=== PATIENT | female | born 1990 | race Caucasian/White ===

== ENCOUNTER 2018-09-04 11:45 | Emergency (ER) | payer MEDICAID, SELFPAY ==
[2018-09-04 11:54] VITALS: BP 126/77; PULSE 95; RESP 17; TEMP 36.5
[2018-09-04] MEDS: Ketorolac 30 MG/ML VIAL IVP (13:11)
[2018-09-04] MEDS: Ondansetron 4 MG/2 ML VIAL IVP (13:11)
--- NOTE | 2018-09-04 14:31 | W.ED.GENAD ---
Discharge Plan Disposition Patient Disposition: HOME Condition: Stable Discharge Details Chief Complaint: Headache Clinical Impression: Migraine Primary Care Provider: Arley Marte ED Provider: Yoana Zhu Home Meds and New Rx's Prescriptions: New cyclobenzaprine 10 mg tablet 10 mg PO TID PRN (Reason: muscle spasm) Qty: 10 RF: 0 ondansetron HCl [Zofran] 4 mg tablet 4 mg PO TID PRN (Reason: nausea and vomiting) Qty: 6 RF: 0 Continued montelukast [Singulair] 10 mg Tablet 10 mg PO DAILY RF: 0 ProAir HFA 90 mcg/actuation Hfa Aerosol Inhaler See Rx Instructions .ROUTE .COMPLEX PRNRF: 0 Flovent HFA 110 mcg/actuation Hfa Aerosol Inhaler 2 puff INHALATION BID RF: 0 spironolactone 50 mg Tablet 50 mg PO BID RF: 0 Discharge Instructions Instructions: Migraine Headache (ED) Additional Instructions: Drink plenty of fluids and get plenty of rest. Take the Flexeril as needed and directed for pain or muscle spasm. Alternate Tylenol Motrin as needed and directed for pain. Take your migraine medication as needed and directed. Follow-up with your primary care doctor in 1 week for reevaluation. Return immediately to the emergency department any worsening or new concerning symptoms. Discharge Data Discharge Date/Time-TO BE ENTERED AT DEPARTURE: 09/04/18 15:12 Discharge Physician: Yoana Zhu Medical Decision Making 28-year-old female with a history of migraines and asthma who presents with headache and neck pain for the past 3 days. Headache described as throbbing, diffuse, with photophobia and nausea consistent with her usual migraines but more intense. No relief with migraine medication. Vitals within normal limits. Patient appears nontoxic and in no acute distress. Pain in neck is worse with range of motion and palpation and appears muscular skeletal. No URI symptoms and normal ENT exam. No meningeal signs. No focal deficits. Patient drove herself here. Will place an IV, bolus IV fluids, give Toradol and dose of Zofran. She was offered Compazine and Benadryl if she can obtain a ride home but she states she cannot. Pt was offered CT scan of her head but she declined. Discussed that as she has no focal deficits, no fever, no neurologic signs, no projectile vomiting, or history of traumatic injury, this is reassuring that does not appear c/w a serious neurologic process. 1400--patient states her headache improved after meds and then returned. She was offered additional medications such as Valium or Compazine with Benadryl if she can obtain a ride, but she states she cannot. She again was offered a CT head but she declined. She states she would rather go home with a prescription for Flexeril to help with muscle spasm. She is instructed to f/u with her pcp for re-evaluation in the next few days and to return immediately with any worsening or new concerning symptoms. Medical Records Medical records reviewed: Yes I reviewed the patient's medical records. Lab Data Lab results reviewed: Yes I reviewed the patient's lab results. test negative HPI General Mode of arrival: ambulatory. Date/Time Provider Initiated Documentation: 09/04/18 11:58. Limitations to Documentation: no limitations. Information obtained by: patient. HPI Narrative: Patient is a 28-year-old female with a history of migraines and asthma who presents with headache and neck pain for the past 3 days. She states the headache started frontal and then now is over her whole head. She describes her headache as throbbing, diffuse, with photophobia and nausea consistent with her usual migraines but more intense. She states she took a prescribed migraine medication but she is unsure of the name but had no relief with this. She also denies any relief with ibuprofen or Tylenol. She states she normally can take ibuprofen or Tylenol with her migraines and this resolves it. She states her neck pain started last night, is throughout her entire neck but worse at the base of her neck and is worse with movement. She denies any fever, ear pain, sore throat, cough, shortness of breath, chest pain, injury, vision changes, extremity pain/weakness/numbness. Related Data Home Medications Medication Instructions Recorded Confirmed Flovent HFA 2 puff INHALATION BID 09/04/18 09/04/18 ProAir HFA See Rx Instructions .ROUTE 09/04/18 09/04/18 .COMPLEX PRN cyclobenzaprine 10 mg PO TID PRN #10 tab 09/04/18 montelukast [Singulair] 10 mg PO DAILY 09/04/18 09/04/18 ondansetron HCl [Zofran] 4 mg PO TID PRN #6 tab 09/04/18 spironolactone 50 mg PO BID 09/04/18 09/04/18 Previous Rx's Medication Instructions Recorded cyclobenzaprine 10 mg PO TID PRN #10 tab 09/04/18 ondansetron HCl [Zofran] 4 mg PO TID PRN #6 tab 09/04/18 Allergies Allergy/AdvReac Type Severity Reaction Status Date / Time latex Allergy Intermediate Skin Rash Unverified 09/04/18 11:58 adhesive tape Allergy Mild Skin Rash Unverified 09/04/18 11:58 morphine AdvReac Mild Nausea Unverified 09/04/18 11:58 tramadol AdvReac Mild Nausea Unverified 09/04/18 11:58 General Stated Complaint: Orthopedic RONA: 4 Review of Systems Review of Systems All systems reviewed & are unremarkable except as noted in HPI and below Constitutional Reports as per HPI, Denies chills, Denies fever(s) and Reports headache(s) Eyes Denies blurry vision ENT Denies dizziness, Reports headache(s), Denies sore throat and Denies throat swelling Cardiovascular Denies chest pain and Denies dyspnea Respiratory Denies dyspnea Gastrointestinal Denies abdominal pain, Denies diarrhea, Reports nausea and Denies vomiting Genitourinary Denies hematuria and Denies dysuria Musculoskeletal Denies back pain and Denies numbness Integumentary/Breasts Denies lesions and Denies rash Neurologic Denies dizziness, Reports headache(s) and Denies numbness Allergic/Immunologic Denies throat swelling [facility] Medical History Asthma (Chronic) HTN (hypertension) (Chronic) Kidney stones (Chronic) Migraine (Chronic) Surgical History H/O laparoscopy (Chronic) Social History Smoking/Tobacco Use Status: Never alcohol intake: never substance use type: does not use Exam Const General: cooperative and healthy appearing Orientation: alert and awake HENME Head: normal to inspection Ears: hearing grossly normal bilaterally, external ears normal and TM's normal bilaterally General nose exam: external nose normal Face and sinus: normal facial exam Mouth: oral mucosae normal Teeth and gingiva: dentition normal Throat: posterior oropharynx normal Eyes General: appearance normal, both eyes and all related structures Eyelids: eyelids normal Pupils: PERRL EOM: EOM intact bilaterally Neck Neck: normal visual inspection Lymphatic: no lymphadenopathy noted Chest Chest: normal inspection of the chest Resp Effort & Inspection: normal respiratory effort and able to speak in complete sentences Auscultation: clear to auscultation bilaterally Cardio Rate: regular rate Rhythm: regular rhythm GI Inspection: normal to inspection Palpation: soft, not firm, no guarding, no hepatosplenomegaly, no masses and nontender Auscultation: normal bowel sounds Back/Spine/Pelvis Cervical Spine: cervical muscular tenderness (b/l, worse at base of neck), pain with cervical ROM and No cervical spinal tenderness Skin General skin exam: no rashes or lesions noted Neuro General: alert, awake, oriented x3, moves all extremities, no meningeal signs, no focal motor deficits and other (Negative Kernig's and Brudzinski's signs) Cranial Nerves: CN's II-XI intact bilaterally Cognition: normal cognition Speech: speech normal Gait: normal gait Motor: muscle tone normal throughout and strength 5/5 throughout Sensory Exam: no sensory deficits noted Extrem General: normal to inspection, full ROM and normal capillary refill Psych Appearance: grossly normal Mental Status: mental status grossly normal Speech and Movement: speech and movement normal Affect: normal affect Thought Process: normal Course Vital Signs Temperature 97.7 F 09/04/18 11:54 Pulse 95 H 09/04/18 11:54 Respiratory Rate 17 09/04/18 11:54 Blood Pressure 126/77 09/04/18 11:54 Temperature 97.7 F 09/04/18 11:54 Temperature Source Skin 09/04/18 11:54 Pulse 95 H 09/04/18 11:54 Respiratory Rate 17 09/04/18 11:54 Blood Pressure 126/77 09/04/18 11:54 Pain Level 7 09/04/18 11:54 Lab/Test Results Lab/Test Results: POC- Test(urine) Negative
[2018-09-04 15:03] VITALS: BP 126/77; PULSE 95; RESP 17; TEMP 36.5; O2SAT 98
--- NOTE | 2018-09-05 16:54 | NUR.NOTE ---
Nursing Note: Patient called stating that she now has a fever along with the migraine and stiff neck. Took a muscle relaxer 2 hrs ago and does not feel that she can drive. She does not have anyone to look after her children (1yr and 3yr old). Does not want to call an ambulance or bring in the children. Per Dr. Elvira Rossi, patient can come back for evaluation and we would be happy to see her. The physician who saw her yesterday is not in the ED at this time. Patient stated she was going to stay home and if something happens it happens. Gabrielle Sorensen.
== END 2018-09-04 15:12 | disposition home or self-care (01) ==
PROVIDERS: Emergency Provider Physician Assistant; PCP Nurse Practitioner Family
DX: G43.909 Migraine, unspecified, not intractable, without status migrainosus (principal); M54.2 Cervicalgia; I10 Essential (primary) hypertension
CPT/HCPCS: 81025; 96374; 96375; 99284; J1885; J2405

== ENCOUNTER 2018-09-07 06:49 | Emergency (ER) | payer MEDICAID, SELFPAY ==
[2018-09-07] VITALS (9 sets, daily range): BP systolic 101–115; BP diastolic 57–77; PULSE 84–127; RESP 16–20; TEMP 36.6–37.6; O2SAT 90–100
--- NOTE | 2018-09-07 07:16 | DI.CT_ITS ---
SYMPTOM/DIAGNOSIS: SEVERE HEADACHES, 1 WEEK, ATYPICAL FOR NORMAL SANTIAGO'S. NONCONTRAST HEAD CT: There are no prior comparison exams. No intracranial hemorrhage, mass or infarct is seen. The ventricles are normal in size. The sinuses and mastoid air cells appear clear. The orbits are unremarkable. IMPRESSION: Negative head CT.
--- NOTE | 2018-09-07 07:16 | DI.CT_ITS ---
SYMPTOM/DIAGNOSIS: SEVERE HEADACHE FOR 1 SWEEK, WORSENING, ATYPICAL CT ANGIOGRAPHY OF THE HEAD AND NECK: There is no evidence of aneurysm or dissection. There is no evidence of significant stenosis, vascular irregularity or occlusion. IMPRESSION: Negative CTA of the head and neck.
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
[2018-09-07 07:57] LABS: Abs Immature Grans 0.11 k/cumm (0.0-0.09); Absolute Basophil Count 0.17 k/cumm (0.0-0.2); Basophils % 2.5; HCT 42.8 % (36.0-46.0); HGB 14.4 g/dL (12.0-15.5); Mean Corp. HGB Concentration 33.6 g/dL (32.0-36.0); Mean Corpuscular Hemoglobin 27.2 pg (27.0-33.0); Mean Corpuscular Volume 80.9 fL (80-95); Mean Platelet Volume 10.8 fL (8.0-11.0); Platelet Count 186 x1000/uL (130-400); RBC 5.29 m/cumm (4.00-5.20); RBC Distribution Width 14.4 % (11.7-14.6); White Blood Cell Count 6.75 k/cumm (4.4-10.8)
[2018-09-07 08:04] LABS: ALT 13 U/L (12-78); AST 24 U/L (15-37); Albumin 3.7 g/dL (3.4-5.0); Alkaline Phosphatase 98 U/L (46-116); Anion Gap 10.2 mmol/L (3-11); BUN 13 mg/dL (7-18); Bilirubin, Total 0.6 mg/dL (0.2-1.0); C-Reactive Protein 1.43 mg/dL (0.0-0.3); CO2 27.8 mmol/L (21.0-32.0); CREATININE 0.87 mg/dL (0.55-1.02); Calcium 9.2 mg/dL (8.5-10.1); Chloride 103 mmol/L (98-107); Glucose 101 mg/dL (70-100); Potassium 4.1 mmol/L (3.5-5.1); Sodium 141 mmol/L (136-145); Total Protein 8.5 g/dL (6.4-8.2)
[2018-09-07] MEDS: Ketorolac 15 MG/ML VIAL IVP (08:04)
[2018-09-07] MEDS: diphenhydrAMINE 25 MG CAP PO (08:04)
[2018-09-07] MEDS: Acetaminophen 500 MG TAB 1000 MG PO (08:04)
[2018-09-07] MEDS: Metoclopramide 10 MG/2 ML VIAL IVP (08:05)
[2018-09-07] MEDS: Normal Saline 1,000 ML 1000 ML IV ×2 (08:06→09:51)
[2018-09-07] MEDS: Omnipaque 350 MG/ML 100 ML BTL IV (08:24)
[2018-09-07 08:41] LABS: Absolute Eosinophil Count 0.14 k/cumm (0.0-0.7); Absolute Lymphocyte Count 2.97 k/cumm (1.2-3.4); Absolute Monocyte Count 0.47 k/cumm (0.11-0.7); Absolute Neutrophil Count 3.11 k/cumm (1.2-6.7); Atypical Lymphocytes % 13; Diff Comment Manual Differential; Nucleated RBC 1 /100WBC; RBC Morphology Normal
[2018-09-07 08:44] LABS: ESR 23 MM/HR (0-20)
--- NOTE | 2018-09-07 08:52 | W.ED.FU ---
Follow Up Plan: Patient signed out to me by Dr. Roberts with labs, CT, CTA neck, LP pending.
[2018-09-07] MEDS: Normal Saline Flush 10 ML SYR ×2 (09:52→09:53)
--- NOTE | 2018-09-07 10:00 | NUR.NOTE ---
consent done and on the chart for LP by the er doctor and pt sitting up leaning over BST with pillow and back arched area cleaned and draped lidocaine Nursing Note:
[2018-09-07] MEDS: Lidocaine 1% Multi-Dose 50 ML VIAL (10:31)
[2018-09-07 10:51] LABS: Glucose (CSF) 58 mg/dL (40-70); Total Protein (CSF) 34 mg/dL (15-45)
[2018-09-07 11:20] LABS: Tube # 3
[2018-09-07 11:22] LABS: Clarity Clear; RBC 0 /mm3 (0-5); WBC 0 /mm3 (0-5); Xanthochromia Absent
--- NOTE | 2018-09-07 12:02 | W.PM.PROGNOT ---
Date of Service Date of service: 09/07/18 Time of Service: 12:02 Assessment and Plan (1) Status migrainosus: Current visit: Yes Status: Acute Subjective Interval history since last seen: This was a procedure visit only. Procedure: Bilateral Greater occipital nerve blocks Indication: Headache, occipital and cervical tenderness Consent: Indication, risks, benefits, and alternatives discussed with the patient, which included bleeding, infection, permanent numbness, and medication reaction. Consent form signed and placed in chart. Time out: A timeout was performed Location: The greater occipital nerve was located by first palpating the mastoid and midline occipital ridge. Next the nerve was palpated at 2/3 the distance toward the occipital ridge. It was coincident with maximal tenderness. Medication: 50:50 mixture of 2% Lidocaine and 0.25% bupivacaine. Technique: The area was cleaned with 2 alcohol swabs while using clean gloves. Using a 5 cc syringe with a 25 ronda, 4cc of the medication mixture was injected in multiple tissue planes in the area around each greater occipital nerve. Prior to each injection the plunger was pulled to ensure the needle was not in a blood vessel. The patient tolerated the procedure well. Complications: none Blood loss: < 1cc Objective Objective Clinical Data: Abnormal lab results 09/07/18 09/07/18 Range/Units 07:22 07:22 RBC 5.29 H (4.00-5.20) m/cumm ESR 23 H (0-20) MM/HR Glucose 101 H (70-100) mg/dL C-Reactive Protein 1.43 H (0.0-0.3) mg/dL Total Protein 8.5 H (6.4-8.2) g/dL Vital Signs Temperature 36.6 C 09/07/18 09:02 Temperature Source Temporal Artery Scan 09/07/18 09:02 Pulse 96 H 09/07/18 10:11 Respiratory Rate 20 09/07/18 10:26 Respiratory Effort 09/07/18 08:11 Blood Pressure 114/66 09/07/18 10:26 Blood Pressure Position Sitting 09/07/18 06:55 Pulse Oximetry 100 09/07/18 10:26 Oxygen Delivery Method Room Air 09/07/18 10:26 Oxygen Flow Rate 0 09/07/18 10:26 Pain Level 6 09/07/18 10:26 Intake & Output 01/09/07/18 09/07/18 23:59 11:59 23:59 Intake Total 1999 Balance 1999 Weight 86.183 kg Intake: IV 1999 Laboratory Results WBC 6.75 k/cumm (4.4-10.8) 09/07/18 07:22 RBC 5.29 m/cumm (4.00-5.20) H 09/07/18 07:22 Hgb 14.4 g/dL (12.0-15.5) 09/07/18 07:22 Hct 42.8 % (36.0-46.0) 09/07/18 07:22 MCV 80.9 fL (80-95) 09/07/18 07:22 MCH 27.2 pg (27.0-33.0) 09/07/18 07:22 MCHC 33.6 g/dL (32.0-36.0) 09/07/18 07:22 RDW 14.4 % (11.7-14.6) 09/07/18 07:22 Plt Count 186 x1000/uL (130-400) 09/07/18 07:22 MPV 10.8 fL (8.0-11.0) 09/07/18 07:22 Immature Gran % See Differential 09/07/18 07:22 Neutrophils % 42.0 09/07/18 07:22 Band Neutrophils % 4.0 % 09/07/18 07:22 Lymphocytes % 31.0 09/07/18 07:22 Atypical Lymphs % 13 09/07/18 07:22 Monocytes % 7.0 09/07/18 07:22 Eosinophils % 2.0 09/07/18 07:22 Basophils % 2.5 09/07/18 07:22 Absolute Neutrophils 3.11 k/cumm (1.2-6.7) 09/07/18 07:22 Absolute Lymphocytes 2.97 k/cumm (1.2-3.4) 09/07/18 07:22 Absolute Monocytes 0.47 k/cumm (0.11-0.7) 09/07/18 07:22 Absolute Eosinophils 0.14 k/cumm (0.0-0.7) 09/07/18 07:22 Absolute Basophils 0.17 k/cumm (0.0-0.2) 09/07/18 07:22 Metamyelocytes 1.0 % 09/07/18 07:22 Nucleated RBCs 1 /100WBC 09/07/18 07:22 Differential Comment Manual differential 09/07/18 07:22 RBC Morphology Normal 09/07/18 07:22 Xanthochromia Absent 09/07/18 10:15 ESR 23 MM/HR (0-20) H 09/07/18 07:22 Sodium 141 mmol/L (136-145) 09/07/18 07:22 Potassium 4.1 mmol/L (3.5-5.1) 09/07/18 07:22 Chloride 103 mmol/L (98-107) 09/07/18 07:22 Carbon Dioxide 27.8 mmol/L (21.0-32.0) 09/07/18 07:22 Anion Gap 10.2 mmol/L (3-11) 09/07/18 07:22 BUN 13 mg/dL (7-18) 09/07/18 07:22 Creatinine 0.87 mg/dL (0.55-1.02) 09/07/18 07:22 Estimated GFR/1.73 m2 >= 60.00 (mL/min/1.73m2) 09/07/18 07:22 Glucose 101 mg/dL (70-100) H 09/07/18 07:22 Calcium 9.2 mg/dL (8.5-10.1) 09/07/18 07:22 Total Bilirubin 0.6 mg/dL (0.2-1.0) 09/07/18 07:22 AST 24 U/L (15-37) 09/07/18 07:22 ALT 13 U/L (12-78) 09/07/18 07:22 Alkaline Phosphatase 98 U/L (46-116) 09/07/18 07:22 C-Reactive Protein 1.43 mg/dL (0.0-0.3) H 09/07/18 07:22 Total Protein 8.5 g/dL (6.4-8.2) H 09/07/18 07:22 Albumin 3.7 g/dL (3.4-5.0) 09/07/18 07:22 CSF Tube Number 3 09/07/18 10:15 CSF Color Colorless 09/07/18 10:15 CSF Clarity Clear 09/07/18 10:15 CSF WBC 0 /mm3 (0-5) 09/07/18 10:15 CSF RBC 0 /mm3 (0-5) 09/07/18 10:15 CSF Diff Comment Not Applicable 09/07/18 10:15 CSF Glucose 58 mg/dL (40-70) 09/07/18 10:15 CSF Total Protein 34 mg/dL (15-45) 09/07/18 10:15
[2018-09-09 03:21] LABS: Enterovirus PCR Negative (Negative); Specimen Source CSF
[2018-09-09 16:07] LABS: Adenovirus PCR Negative (Negative)
[2018-09-14 09:52] LABS: Lyme Disease Serology, CSF SEE COMMENTS
== END 2018-09-07 13:00 | disposition home or self-care (01) ==
PROVIDERS: Student in an Organized Health Care Education/Training Program; Emergency Provider Student in an Organized Health Care Education/Training Program; PCP Nurse Practitioner Family
DX: R51 Headache (principal); R50.9 Fever, unspecified; I10 Essential (primary) hypertension
CPT/HCPCS: 36415; 62270; 70496; 70498; 80053; 81025; 82945; 85652; 87040; 87449; 87798; 89050; 89051; 96361; 96374; 96375; 99285; NC; 70450; 84157; 85025; 86140; 86618; 87070; 87205; 87498; 99284; J1885; J2765; J3490

== ENCOUNTER 2018-10-15 13:10 | Outpatient (CLI) | payer MEDICAID, SELFPAY ==
[2018-10-15 14:13] LABS: Potassium 4.1 mmol/L (3.5-5.1)
== END 2018-10-15 13:30 ==
PROVIDERS: PCP Nurse Practitioner Family; Visit Provider Internal Medicine
DX: Z87.442 Personal history of urinary calculi (principal); Z51.81 Encounter for therapeutic drug level monitoring
CPT/HCPCS: 36415; 84132

== ENCOUNTER 2018-12-02 17:21 | Outpatient (REF) | payer MEDICAID, SELFPAY ==
--- NOTE | 2018-12-02 16:30 | PAPFT_PTH ---
PATIENT: Gladys Lopez LOC: [facility] U#:[id number] AGE/SX: 28/F ROOM: RE12/02/[address]: Arley Marte : 1990 BED: DIS: 12/02/2018 SPEC #: [id number] RECD: 12/03/18 10:54 STATUS: REFUGIO REQ #: [id number] VIKCIE: 12/02/18 16:[address]: Arley Marte DEPT: [facility] Cytology RECD BY: Jenni Nguyen Tissues: 1 - CX/ENDOCX FOR PAP SMEARS Procedures: PAP THIN PREP/[facility] Screening Comments: [id number]
[2018-12-04 14:44] LABS: Chlamydia Result Negative; GC Result Negative; Specimen Description CERVIX
== END 2018-12-02 17:41 ==
LOC: NCHCN 17:21
PROVIDERS: PCP Nurse Practitioner Family; Visit Provider Nurse Practitioner Family
DX: Z11.3 Encounter for screening for infections with a predominantly sexual mode of transmission (principal); Z12.4 Encounter for screening for malignant neoplasm of cervix; G43.109 Migraine with aura, not intractable, without status migrainosus; F41.9 Anxiety disorder, unspecified; F32.9 Major depressive disorder, single episode, unspecified; Z00.00 Encounter for general adult medical examination without abnormal findings
CPT/HCPCS: 87491; 87591; 88142; 87480; 87510; 87660

== ENCOUNTER 2019-04-01 11:07 | Emergency (ER) | payer MEDICAID, SELFPAY ==
[2019-04-01 11:24] VITALS: BP 122/68; PULSE 72; RESP 16; TEMP 37.1; O2SAT 99
[2019-04-01 11:29] LABS: Bilirubin Negative (Negative); Blood Negative (Negative); Clarity Clear (Clear); Glucose Negative (Negative); Ketones Negative (Negative); Leukocyte Esterase Negative (Negative); Nitrite Negative (Negative); Specific Gravity 1.025 (1.005-1.025); Urobilinogen 0.2 EU/dL (Up TO 0.2); pH 5.5 (5-8)
--- NOTE | 2019-04-01 11:41 | DI.CT_ITS ---
SYMPTOMS/DIAGNOSIS: RIGHT LOWER QUADRANT PAIN WITH URINARY SYMPTOMS RENAL COLIC CT: No acute findings are seen in the lung bases. Lack of IV contrast does limit evaluation of the abdominal and pelvic organs. The unenhanced liver, spleen, pancreas, gallbladder, bile ducts and adrenal glands are unremarkable. There is no evidence of nephrolithiasis or obstructive uropathy. The urinary bladder is intact. The reproductive organs are unremarkable. The bowel shows no evidence of obstruction or inflammation. No findings to suggest an acute appendicitis are present. The aorta is of normal caliber. No significant abdominal or pelvic adenopathy or pneumoperitoneum is seen. There is a trace amount of free fluid in the pelvis, which is likely physiologic. No acute osseous abnormality is seen in the spine. IMPRESSION: No acute abnormality. The findings were discussed with Sathish Chawla in the Emergency Department on the date of the examination.
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
[2019-04-01] MEDS: Ketorolac 30 MG/ML VIAL IVP (11:50)
[2019-04-01] MEDS: Normal Saline 1,000 ML 1000 ML IV (11:53)
[2019-04-01 11:55] LABS: HGB 12.8 g/dL (12.0-15.5); Mean Corp. HGB Concentration 33.7 g/dL (32.0-36.0); Mean Corpuscular Hemoglobin 27.8 pg (27.0-33.0); Mean Corpuscular Volume 82.6 fL (80-95); Mean Platelet Volume 10.7 fL (8.0-11.0); Platelet Count 226 x1000/uL (130-400); RBC Distribution Width 12.6 % (11.7-14.6); White Blood Cell Count 7.12 k/cumm (4.4-10.8)
[2019-04-01] MEDS: Ondansetron 4 MG/2 ML VIAL IVP (11:55)
[2019-04-01 12:18] LABS: ALT 13 U/L (12-78); AST 12 U/L (15-37); Albumin 3.4 g/dL (3.4-5.0); Alkaline Phosphatase 51 U/L (46-116); Anion Gap 12.3 mmol/L (3-11); BUN 11 mg/dL (7-18); Bilirubin, Total 0.5 mg/dL (0.2-1.0); CO2 21.7 mmol/L (21.0-32.0); CREATININE 0.64 mg/dL (0.55-1.02); Calcium 8.4 mg/dL (8.5-10.1); Chloride 104 mmol/L (98-107); Glucose 83 mg/dL (70-100); Potassium 3.9 mmol/L (3.5-5.1); Sodium 138 mmol/L (136-145); Total Protein 7.1 g/dL (6.4-8.2)
[2019-04-01 12:29] LABS: Lipase 106 U/L (73-393)
--- NOTE | 2019-04-01 13:13 | DI.US_ITS ---
SYMPTOMS/DIAGNOSIS: RIGHT LOWER QUADRANT PAIN PELVIC ULTRASOUND: Transabdominal and transvaginal examination was performed. The uterus measures 9.5 cm long x 4.6 cm AP x 5.1 cm transverse. The endometrial stripe is within normal limits at 0.3 cm. No uterine mass is present. Both the ovaries are visualized. There is normal blood flow. No evidence of torsion. There are follicular cysts seen bilaterally, the largest is a 3.1 cm simple cyst on the left ovary. This is likely physiologic. There is a small amount of free fluid in the cul-de-sac and in the right adnexal region. IMPRESSION: 1. Normal ovarian blood flow. No evidence of torsion. 2. Negative pelvic ultrasound. The findings were discussed with the Emergency Department on the date of the examination.
[2019-04-01 13:22] VITALS: BP 111/58; PULSE 79; RESP 16; TEMP 36.6; O2SAT 97
[2019-04-01 14:31] VITALS: BP 110/64; PULSE 72; RESP 18; TEMP 37.1; O2SAT 100
== END 2019-04-01 14:55 | disposition home or self-care (01) ==
PROVIDERS: Physician Assistant; Emergency Provider Nurse Practitioner Family; PCP Nurse Practitioner Family
DX: R10.30 Lower abdominal pain, unspecified (principal); R30.0 Dysuria; Z87.442 Personal history of urinary calculi; I10 Essential (primary) hypertension
CPT/HCPCS: 36415; 80053; 81025; 83690; 85027; 96361; 96374; 96375; 99284; 74176; 76830; 76856; 81003; J1885; J2405

== ENCOUNTER 2019-10-08 16:29 | Outpatient (REF) | payer MEDICAID, SELFPAY ==
[2019-10-11 13:33] LABS: Chlamydia Result Negative (Negative); GC Result Negative (Negative)
== END 2019-10-08 16:49 ==
LOC: NCHCN 16:29
PROVIDERS: PCP Nurse Practitioner Family; Visit Provider Nurse Practitioner Family
DX: Z91.89 Other specified personal risk factors, not elsewhere classified (principal); Z11.3 Encounter for screening for infections with a predominantly sexual mode of transmission
CPT/HCPCS: 87491; 87591; 87480; 87510; 87660

== ENCOUNTER 2019-10-20 20:57 | Outpatient (REF) | payer MEDICAID, SELFPAY ==
[2019-10-22 09:25] LABS: HBs Antibody, Quant 13.2 mIU/mL (See Note); Hepatitis B Surface Ab Positive (See Note)
[2019-10-22 10:14] LABS: Hepatitis C Ab w Rflx HCV PCR Negative (Negative)
[2019-10-22 11:32] LABS: HIV-1/2 Ag & Ab Screen Negative (Negative)
[2019-10-22 12:34] LABS: Syphilis Serology (RPR) Negative (Negative)
== END 2019-10-20 21:17 ==
LOC: NCHCN 20:57
PROVIDERS: PCP Nurse Practitioner Family; Visit Provider Nurse Practitioner Family
DX: Z91.89 Other specified personal risk factors, not elsewhere classified (principal); Z11.59 Encounter for screening for other viral diseases; Z11.4 Encounter for screening for human immunodeficiency virus [HIV]; Z11.3 Encounter for screening for infections with a predominantly sexual mode of transmission
CPT/HCPCS: 86706; 86803; 87389; 86592

== ENCOUNTER 2019-12-23 19:14 | Outpatient (REF) | payer MEDICAID, SELFPAY ==
[2019-12-23 18:15] LABS: HCT 40.2 % (36.0-46.0); HGB 13.8 g/dL (12.0-15.5); Mean Corp. HGB Concentration 34.3 g/dL (32.0-36.0); Mean Corpuscular Hemoglobin 28.4 pg (27.0-33.0); Mean Corpuscular Volume 82.7 fL (80-95); Mean Platelet Volume 11.7 fL (8.0-11.0); Platelet Count 286 x1000/uL (130-400); RBC 4.86 m/cumm (4.00-5.20); RBC Distribution Width 12.5 % (11.7-14.6); White Blood Cell Count 9.64 k/cumm (4.4-10.8)
[2019-12-23 19:07] LABS: Iron 31 ug/dL (50-170); Total Iron Binding Capacity 455 ug/dL (250-450); Transferrin Sat 7 % (15-50)
== END 2019-12-23 19:34 ==
LOC: NCHCN 19:14
PROVIDERS: PCP Nurse Practitioner Family; Visit Provider Nurse Practitioner Family
DX: N80.9 Endometriosis, unspecified (principal); N93.8 Other specified abnormal uterine and vaginal bleeding
CPT/HCPCS: 85027; 83540; 83550

== ENCOUNTER 2020-03-15 03:56 | Outpatient (CLI) | payer MEDICAID, SELFPAY ==
[2020-03-15 08:25] LABS: Anion Gap 9.5 mmol/L (3-11); BUN 10 mg/dL (7-18); CO2 24.5 mmol/L (21.0-32.0); CREATININE 0.85 mg/dL (0.55-1.02); Calculated LDL 117 mg/dL (<100); Chloride 106 mmol/L (98-107); Cholesterol 189 mg/dL (<200); Glucose 87 mg/dL (74-106); HDL Cholesterol 46 mg/dL (40-60); Potassium 4.3 mmol/L (3.5-5.1); Sodium 140 mmol/L (136-145); Triglyceride 132 mg/dL (<150); Vitamin B12 443 pg/mL (193-986)
== END 2020-03-15 04:16 ==
PROVIDERS: PCP Nurse Practitioner Family; Visit Provider Nurse Practitioner Family
DX: R20.9 Unspecified disturbances of skin sensation (principal); Z00.00 Encounter for general adult medical examination without abnormal findings
CPT/HCPCS: 36415; 80048; 80061; 82607; 83036

== ENCOUNTER 2020-03-19 10:55 | Emergency (ER) | payer MEDICAID, SELFPAY ==
[2020-03-19 11:03] VITALS: BP 163/102; PULSE 76; RESP 16; TEMP 36.8; O2SAT 100
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
--- NOTE | 2020-03-19 11:30 | DI.CT_ITS ---
EXAM: CT ABDOMEN PELVIS W CLINICAL HISTORY: lower abd pain, worse suprapubic and LLQ TECHNIQUE: Imaging Protocol: Axial computed tomography images with coronal and sagittal reformatted images were created and reviewed CONTRAST MATERIAL: Intravenous: Omnipaque 350 Contrast volume:100 mL Oral: No COMPARISON: CT CT renal colic wo from 04/01/2019 FINDINGS: ABDOMEN: Lung Bases: Normal where visualized. Liver: Normal density. No measurable mass. Portal, Superior Mesenteric, and Splenic Veins: Unremarkable. Gallbladder and Biliary Tract: No radiodense calculus or dilation. Pancreas: Normal density, no abnormal calcifications or inflammatory process. Spleen: Normal. Adrenals: No masses seen. Kidneys: Normal size, contour and axis. No radiodense stones or obstructive uropathy. No masses seen. Abdominal Aorta: Abdominal portion non-dilated. Bowel: No obstruction or bowel wall thickening. No evidence of acute appendicitis. Peritoneal Cavity: No ascites, collection or mesenteric inflammatory response. Lymph Nodes: Within normal limits. Bones: Unremarkable. Soft Tissues: Unremarkable. PELVIS: Bladder: Symmetric distention, no gross wall thickening. Reproductive Organs: Unremarkable as visualized. Lymph Nodes: Within normal limits. Bones: Within normal limits. IMPRESSION: Unremarkable CT scan of the abdomen and pelvis. RADIATION DOSE DELIVERED: 880.62mGy.cm Total DLP DATA REPOSITORY: All CT scans at this facility are submitted to the National Radiology Data Registry (NRDR) Dose Index Registry (DIR) with the [employer] (A[employer]). RADIATION OPTIMIZATION: All CT scans at this facility use at least one of these dose optimization te chniques: automated exposure control; mA and/or kV adjustment per patient size (includes targeted exa ms where dose is matched to clinical indication); or iterative reconstruction.
[2020-03-19 12:15] LABS: Abs Immature Grans 0.05 10^3/uL (0.0-0.06); Absolute Basophil Count 0.03 10^3/uL (0.0-0.2); Absolute Eosinophil Count 0.11 10^3/uL (0.0-0.7); Absolute Lymphocyte Count 2.44 10^3/uL (1.2-3.4); Absolute Monocyte Count 0.57 10^3/uL (0.1-0.8); Absolute Neutrophil Count 4.69 10^3/uL (1.2-6.7); Basophils % 0.4; Eosinophils % 1.4; HCT 40.8 % (36.0-46.0); HGB 13.7 g/dL (11.2-15.7); Immature Grans % 0.6; Lymphocytes % 30.9; MCHC 33.6 % (32.0-36.0); MCV 83.3 fL (80-95); MPV 10.6 fL (8.0-11.0); Monocytes % 7.2; Neutrophils % 59.5; Nucleated RBC 0 %; Platelet Count 235 10^3/uL (130-400); RDW 11.9 % (11.7-14.6); RDW-SD 36.3 fL; WBC 7.89 10^3/uL (4.4-10.8)
[2020-03-19] MEDS: Ondansetron 4 MG/2 ML VIAL IVP (12:20)
[2020-03-19] MEDS: Normal Saline 1,000 ML 1000 ML IV (12:20)
[2020-03-19 12:28] LABS: Bilirubin Negative (Negative); Blood Negative (Negative); Clarity Clear (Clear); Glucose Negative (Negative); Ketones Negative (Negative); Leukocyte Esterase Negative (Negative); Nitrite Negative (Negative); Specific Gravity 1.015 (1.005-1.025); Urobilinogen 0.2 EU/dL (Up TO 0.2)
[2020-03-19] MEDS: Ketorolac 30 MG/ML VIAL IVP (12:40)
[2020-03-19 12:45] LABS: ALT 13 U/L (14-59); AST 12 U/L (15-37); Albumin 3.7 g/dL (3.4-5.0); Alkaline Phosphatase 55 U/L (46-116); Anion Gap 7.1 mmol/L (3-11); BUN 9 mg/dL (7-18); Bilirubin, Total 0.3 mg/dL (0.2-1.0); CO2 24.9 mmol/L (21.0-32.0); CREATININE 0.79 mg/dL (0.55-1.02); Calcium 9.1 mg/dL (8.5-10.1); Chloride 102 mmol/L (98-107); Glucose 86 mg/dL (74-106); Lipase 112 U/L (73-393); Potassium 4.4 mmol/L (3.5-5.1); Sodium 134 mmol/L (136-145); Total Protein 7.6 g/dL (6.4-8.2)
[2020-03-19] MEDS: Omnipaque 350 MG/ML 100 ML BTL IJ (13:34)
[2020-03-19] MEDS: ACETAMINOPHEN 1,000 MG/100 ML BTL 400 MG IVPB (13:48)
--- NOTE | 2020-03-19 13:56 | DI.VRAD_ITS ---
PROCEDURE INFORMATION: Exam: CT Abdomen And Pelvis With Contrast Exam date and time: 03/19/2020 1:34 PM Age: 30 years old Clinical indication: Abdominal pain; Patient HX: Suprapubic and llq pain, worsening over 2 days TECHNIQUE: Imaging protocol: Computed tomography of the abdomen and pelvis with intravenous contrast. COMPARISON: [facility] pelvis 04/01/2019 2:06 PM FINDINGS: Normal appearing solid organs. No intestinal obstruction. No obstructive uropathy. No free fluid. No free air. No inflammatory changes. IMPRESSION: No specific etiology identified for the patient's symptoms. Dictated and Authenticated by: Talib Banda MD. Ordering:RAVEN Lees MD
[2020-03-19] MEDS: metroNIDAZOLE 500 MG TAB PO (15:04)
[2020-03-19] MEDS: Ondansetron O.D.T. 4 MG TABEF, 3 TABS/BTL PO (15:04)
[2020-03-19 15:14] VITALS: BP 97/61; PULSE 69; RESP 12; TEMP 36.7; O2SAT 99
[2020-03-21 09:39] LABS: HIV-1/2 Ag & Ab Screen Negative (Negative)
[2020-03-21 09:57] LABS: Hepatitis C Ab w Rflx HCV PCR Negative (Negative)
[2020-03-21 10:08] LABS: Syphilis Serology (RPR) Negative (Negative)
[2020-03-21 14:30] LABS: HBs Antibody, Quant 8.5 mIU/mL (See Note); Hepatitis B Surface Ab Negative (See Note)
[2020-03-21 15:24] LABS: Chlamydia Result Negative (Negative); GC Result Negative (Negative)
[2020-03-22 00:39] LABS: HSV 1 PCR, Blood Negative (Negative); HSV 2 PCR, Blood Negative (Negative)
== END 2020-03-19 15:21 | disposition home or self-care (01) ==
PROVIDERS: Emergency Provider Physician Assistant; PCP Nurse Practitioner Family
DX: R10.32 Left lower quadrant pain (principal); T74.21XA Adult sexual abuse, confirmed, initial encounter; N76.0 Acute vaginitis; B96.89 Other specified bacterial agents as the cause of diseases classified elsewhere; I10 Essential (primary) hypertension
CPT/HCPCS: 36415; 80053; 81025; 83690; 86706; 86803; 87389; 87491; 87529; 87591; 96361; 96365; 96375; 99285; 74177; 81003; 85025; 86592; 87480; 87510; 87660; J0131; J1885; J2405; J3490

== ENCOUNTER 2020-04-19 16:45 | Outpatient (REF) | payer MEDICAID, SELFPAY | END 2020-04-19 17:05 | LOC: LBN 16:45 | PROVIDERS: PCP Nurse Practitioner Family; Visit Provider Obstetrics & Gynecology | DX: N76.0 Acute vaginitis (principal); B96.89 Other specified bacterial agents as the cause of diseases classified elsewhere | CPT/HCPCS: 87480; 87510; 87660 ==

== ENCOUNTER 2020-04-25 19:04 | Emergency (ER) | payer MEDICAID, SELFPAY ==
[2020-04-25] VITALS (29 sets, daily range): BP systolic 99–127; BP diastolic 56–96; PULSE 80–131; RESP 13–29; TEMP 36.1; O2SAT 96–100
--- NOTE | 2020-04-25 19:00 | RT.EKG_ITS ---
APPROVED REPORT Exam: Resting ECG Patient Location: E HR:106 bpm ECG Measurements Heart Rate 106 AXIS NC 173 P 64 QRSd 91 QRS 54 QT 322 T 40 QTc 427 Conclusion Sinus tachycardia.rate 106, no st elev
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
--- NOTE | 2020-04-25 19:15 | DI.RAD_ITS ---
EXAM: XR CHEST 2V PA LATERAL CLINICAL HISTORY: CP, hx pericarditis TECHNIQUE: 2D digital imaging was performed. COMPARISON: No exams were available for comparison FINDINGS: The heart is not enlarged. The lungs are clear and well expanded. No pleural effusion seen. Mediastin al contours appear intact. IMPRESSION: Normal chest RADIATION DOSE DELIVERED: Total DLP
[2020-04-25 19:35] LABS: Abs Immature Grans 0.04 10^3/uL (0.0-0.06); Absolute Basophil Count 0.04 10^3/uL (0.0-0.2); Absolute Lymphocyte Count 3.36 10^3/uL (1.2-3.4); Absolute Monocyte Count 0.71 10^3/uL (0.1-0.8); Basophils % 0.4; HCT 42.8 % (36.0-46.0); HGB 14.6 g/dL (11.2-15.7); Immature Grans % 0.4; Lymphocytes % 33.4; MCHC 34.1 % (32.0-36.0); MCV 82.1 fL (80-95); MPV 10.7 fL (8.0-11.0); Monocytes % 7.1; Neutrophils % 57.7; Nucleated RBC 0 %; Platelet Count 287 10^3/uL (130-400); RBC 5.21 10^6/uL (3.93-5.22); RDW 11.9 % (11.7-14.6); RDW-SD 35.5 fL; WBC 10.05 10^3/uL (4.4-10.8)
[2020-04-25] MEDS: Ketorolac 30 MG/ML VIAL IVP (19:47)
[2020-04-25] MEDS: Ondansetron 4 MG/2 ML VIAL IVP (19:47)
[2020-04-25 19:48] LABS: ALT 12 U/L (14-59); AST 11 U/L (15-37); Albumin 3.6 g/dL (3.4-5.0); Alkaline Phosphatase 65 U/L (46-116); Anion Gap 10.1 mmol/L (3-11); BUN 12 mg/dL (7-18); Bilirubin, Total 0.3 mg/dL (0.2-1.0); C-Reactive Protein 0.41 mg/dL (0.0-0.3); CO2 24.9 mmol/L (21.0-32.0); CREATININE 1.07 mg/dL (0.55-1.02); Calcium 9.5 mg/dL (8.5-10.1); Chloride 101 mmol/L (98-107); Glucose 102 mg/dL (74-106); Magnesium 1.7 mg/dL (1.8-2.4); Sodium 136 mmol/L (136-145); Total Protein 7.8 g/dL (6.4-8.2)
[2020-04-25 19:57] LABS: Troponin I < 0.05 ng/mL (<0.06)
--- NOTE | 2020-04-25 20:13 | DI.VRAD_ITS ---
PROCEDURE INFORMATION: Exam: XR Chest, 2 Views Exam date and time: 04/25/2020 8:04 PM Age: 30 years old Clinical indication: Other: Central; Patient HX: HX of pericarditis about 5 years ago, chest pain today TECHNIQUE: Imaging protocol: XR of the chest Views: 2 views. COMPARISON: No relevant prior studies available. FINDINGS: Lungs: Unremarkable. No consolidation. Pleural space: Unremarkable. No pleural effusion. No pneumothorax. Heart/Mediastinum: Unremarkable. No cardiomegaly. Bones/joints: Unremarkable. IMPRESSION: No acute findings. Dictated and Authenticated by: Gilberto Nguyen MD. Ordering:GRIFFIN Hernandez MD
[2020-04-25] MEDS: Normal Saline 1,000 ML 125 ML IV (20:18)
[2020-04-25 20:22] LABS: ESR 13 mm/hr (0-20)
[2020-04-25] MEDS: Normal Saline 1,000 ML 1000 ML IV (20:24)
[2020-04-25] MEDS: ACETAMINOPHEN 1,000 MG/100 ML BTL 400 MG IVPB (21:19)
[2020-04-25 21:36] LABS: D-Dimer 265 ng/mlFEU (<500)
--- NOTE | 2020-04-25 21:45 | RT.EKG_ITS ---
APPROVED REPORT Exam: Resting ECG Patient Location: E HR:86 bpm ECG Measurements Heart Rate 86 AXIS UT 173 P 47 QRSd 94 QRS 54 QT 367 T 40 QTc 439 Conclusion Sinus rhythm...normal P axis, V-rate 60- 99
[2020-04-25 22:55] LABS: Troponin I < 0.05 ng/mL (<0.06)
--- NOTE | 2020-04-25 23:09 | NUR.NOTE ---
Refferal made to care management for f/u with PCP on Friday04/28/2020. [facility] ED Nursing Note:
--- NOTE | 2020-04-26 15:16 | PDOC.ERCMPRO ---
- If Service Date Differs Date of service: 04/26/20 Time of Service: 15:16 Care Management Progress Note At ED provider's request, CM contacts [facility] to ensure Gladys has been able to obtain an appointment with her PCP in follow-up to her ED visit yesterday. [facility] staff confirm that Gladys has an appointment scheduled for Friday, April 28, 2020, with AZRA Holman.
== END 2020-04-25 23:10 | disposition home or self-care (01) ==
PROVIDERS: Emergency Provider Physician Assistant; PCP Nurse Practitioner Family
DX: R07.9 Chest pain, unspecified (principal); R11.0 Nausea; I10 Essential (primary) hypertension
CPT/HCPCS: 36415; 80053; 85652; 93005; 96361; 96365; 96375; 99285; 71046; 83735; 84484; 85025; 85379; 86140; 93010; J0131; J1885; J2405

== ENCOUNTER 2020-04-28 16:14 | Outpatient (REF) | payer MEDICAID, SELFPAY ==
[2020-04-28 21:30] LABS: Abs Immature Grans 0.04 10^3/uL (0.0-0.06); Absolute Basophil Count 0.04 10^3/uL (0.0-0.2); Absolute Eosinophil Count 0.12 10^3/uL (0.0-0.7); Absolute Lymphocyte Count 2.73 10^3/uL (1.2-3.4); Absolute Monocyte Count 0.49 10^3/uL (0.1-0.8); Absolute Neutrophil Count 4.82 10^3/uL (1.2-6.7); Basophils % 0.5; Eosinophils % 1.5; HGB 13.5 g/dL (11.2-15.7); Immature Grans % 0.5; Lymphocytes % 33.1; MCH 28.2 pg (27.0-33.0); MCHC 33.8 % (32.0-36.0); MCV 83.5 fL (80-95); MPV 11.7 fL (8.0-11.0); Monocytes % 5.9; Neutrophils % 58.5; Nucleated RBC 0 %; Platelet Count 289 10^3/uL (130-400); RBC 4.79 10^6/uL (3.93-5.22); RDW-SD 36.8 fL; WBC 8.24 10^3/uL (4.4-10.8)
[2020-04-28 22:15] LABS: ALT 13 U/L (14-59); AST 13 U/L (15-37); Albumin 3.7 g/dL (3.4-5.0); Alkaline Phosphatase 60 U/L (46-116); Anion Gap 9.6 mmol/L (3-11); BUN 11 mg/dL (7-18); Bilirubin, Total 0.4 mg/dL (0.2-1.0); C-Reactive Protein 0.34 mg/dL (0.0-0.3); CO2 24.4 mmol/L (21.0-32.0); CREATININE 0.75 mg/dL (0.55-1.02); Calcium 9.3 mg/dL (8.5-10.1); Chloride 103 mmol/L (98-107); Glucose 81 mg/dL (74-106); Potassium 4.3 mmol/L (3.5-5.1); Sodium 137 mmol/L (136-145); Total Protein 7.2 g/dL (6.4-8.2)
[2020-04-28 22:30] LABS: Iron 107 ug/dL (50-170); Total Iron Binding Capacity 424 ug/dL (250-450); Transferrin Sat 25 % (15-50)
[2020-04-28 22:37] LABS: ESR 12 mm/hr (0-20)
[2020-04-30 20:03] LABS: Rheumatoid Factor <8.6 IU/mL (<12.0)
[2020-05-01 10:43] LABS: Lyme Ab w Rflx to Lyme Confirm Negative (Negative)
[2020-05-01 15:16] LABS: ANA Interpretation Positive (Negative); ANA Titer Pattern 1:160 Speckled
[2020-05-02 21:13] LABS: Anaplasma phagocytophilum Negative (Negative); B. miyamotoi PCR Negative (Negative); Babesia divergens/MO-1 Negative (Negative); Babesia duncani Negative (Negative); Babesia microti Negative (Negative); Ehrlichia chaffeensis Negative (Negative); Ehrlichia ewingii/canis Negative (Negative); Ehrlichia muris eauclairensis Negative (Negative)
== END 2020-04-28 16:34 ==
LOC: NCHCN 16:14
PROVIDERS: PCP Nurse Practitioner Family; Visit Provider Nurse Practitioner Family
DX: E61.1 Iron deficiency (principal); I31.9 Disease of pericardium, unspecified
CPT/HCPCS: 80053; 85652; 87798; 83540; 83550; 85025; 86038; 86140; 86431; 86618

== ENCOUNTER 2020-06-27 16:22 | Outpatient (REF) | payer MEDICAID, SELFPAY ==
[2020-06-27 18:35] LABS: HCT 38.4 % (36.0-46.0); HGB 12.9 g/dL (11.2-15.7)
[2020-06-27 19:18] LABS: Anion Gap 7.5 mmol/L (3-11); BUN 13 mg/dL (7-18); CO2 25.5 mmol/L (21.0-32.0); CREATININE 0.87 mg/dL (0.55-1.02); Calcium 8.9 mg/dL (8.5-10.1); Chloride 104 mmol/L (98-107); Glucose 99 mg/dL (74-106); Potassium 4.1 mmol/L (3.5-5.1); Sodium 137 mmol/L (136-145)
== END 2020-06-27 16:42 ==
LOC: NCHCN 16:22
PROVIDERS: PCP Nurse Practitioner Family; Visit Provider Family Medicine
DX: R25.2 Cramp and spasm (principal)
CPT/HCPCS: 80048; 85014; 85018

== ENCOUNTER 2020-06-30 22:05 | Outpatient (REF) | payer MEDICAID, SELFPAY ==
[2020-06-30 20:35] LABS: Abs Immature Grans 0.04 10^3/uL (0.0-0.06); Absolute Basophil Count 0.04 10^3/uL (0.0-0.2); Absolute Eosinophil Count 0.14 10^3/uL (0.0-0.7); Absolute Lymphocyte Count 2.56 10^3/uL (1.2-3.4); Absolute Monocyte Count 0.57 10^3/uL (0.1-0.8); Basophils % 0.5; Eosinophils % 1.6; HCT 41.3 % (36.0-46.0); HGB 13.9 g/dL (11.2-15.7); Immature Grans % 0.5; Lymphocytes % 29.9; MCH 27.9 pg (27.0-33.0); MCHC 33.7 % (32.0-36.0); MCV 82.9 fL (80-95); MPV 11.7 fL (8.0-11.0); Monocytes % 6.7; Neutrophils % 60.8; Nucleated RBC 0 %; Platelet Count 275 10^3/uL (130-400); RBC 4.98 10^6/uL (3.93-5.22); WBC 8.55 10^3/uL (4.4-10.8)
[2020-06-30 20:40] LABS: C-Reactive Protein 0.35 mg/dL (0.0-0.3); Creatine Kinase 46 U/L (26-192); Magnesium 1.9 mg/dL (1.8-2.4)
[2020-06-30 21:30] LABS: ESR 15 mm/hr (0-20)
== END 2020-06-30 22:25 ==
LOC: NCHCN 22:05
PROVIDERS: PCP Nurse Practitioner Family; Visit Provider Nurse Practitioner Family
DX: R25.2 Cramp and spasm (principal); M79.18 Myalgia, other site
CPT/HCPCS: 82550; 85652; 83735; 85025; 86140

== ENCOUNTER 2020-07-18 08:10 | Outpatient (CLI) | payer MEDICAID, SELFPAY ==
[2020-07-15 00:57] LABS: COVID-19 RT-PCR UVMMC Result Negative (Negative)
[2020-07-18 09:03] LABS: TSH (W/Ref FT4) 0.62 uIU/mL (0.36-3.74)
[2020-07-18 09:04] LABS: HCG Quant, Pregnancy < 1 mIU/mL (1-3)
[2020-07-18 18:03] LABS: Prolactin 8.8 ng/mL (See Table)
== END 2020-07-18 08:30 ==
PROVIDERS: Nurse Practitioner Family; PCP Nurse Practitioner Family; Visit Provider Obstetrics & Gynecology
DX: N93.8 Other specified abnormal uterine and vaginal bleeding (principal); Z11.59 Encounter for screening for other viral diseases
CPT/HCPCS: 36415; U0003; 83001; 84146; 84443; 84702

== ENCOUNTER 2020-07-24 18:38 | Outpatient (REF) | payer MEDICAID, SELFPAY | END 2020-07-24 18:58 | LOC: LBN 18:38 | PROVIDERS: PCP Nurse Practitioner Family; Visit Provider Obstetrics & Gynecology | DX: N89.8 Other specified noninflammatory disorders of vagina (principal) | CPT/HCPCS: 87480; 87510; 87660 ==

== ENCOUNTER 2020-07-28 16:24 | Emergency (ER) | payer MEDICAID, SELFPAY ==
[2020-07-28 16:28] VITALS: BP 136/86; PULSE 97; RESP 18; TEMP 36.7; O2SAT 100
--- NOTE | 2020-07-28 16:30 | DI.RAD_ITS ---
EXAM: XR ANKLE RT COMPLETE CLINICAL HISTORY: Fall and lateral pain. TECHNIQUE: 2D digital imaging was performed. COMPARISON: No exams were available for comparison FINDINGS: BONES: No acute fracture is present. No bony destructive lesion is seen. JOINTS: The ankle mortise is normally aligned. SOFT TISSUE: Normal. IMPRESSION: Unremarkable radiographs of the right ankle. DATA REPOSITORY: RADIATION DOSE DELIVERED:
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
[2020-07-28] MEDS: Acetaminophen 500 MG TAB 1000 MG PO (16:44)
[2020-07-28] MEDS: Ibuprofen 800 MG TAB PO (16:44)
--- NOTE | 2020-07-28 17:10 | DI.VRAD_ITS ---
PROCEDURE INFORMATION: Exam: XR Right Ankle Exam date and time: 07/28/2020 4:41 PM Age: 30 years old Clinical indication: Other: Fall/lateral pain TECHNIQUE: Imaging protocol: XR Right ankle. Views: 3 or more views. COMPARISON: No relevant prior studies available. FINDINGS: Bones/joints: Normal. Soft tissues: Normal. IMPRESSION: No acute findings. Dictated and Authenticated by: Shaniqua Jaquez MD. Ordering:MOOSE Ballesteros MD
== END 2020-07-28 18:03 | disposition home or self-care (01) ==
PROVIDERS: Emergency Provider Emergency Medicine; PCP Nurse Practitioner Family
DX: S93.491A Sprain of other ligament of right ankle, initial encounter (principal); X50.9XXA Other and unspecified overexertion or strenuous movements or postures, initial encounter; I10 Essential (primary) hypertension
CPT/HCPCS: 29515; 99283; 73610

== ENCOUNTER 2020-08-15 00:51 | Outpatient (CLI) | payer MEDICAID, SELFPAY ==
--- NOTE | 2020-08-15 06:45 | DI.US_ITS ---
EXAM: US PELVIS TRANSVAGINAL CLINICAL HISTORY: dysfunctional uterine bleeding,n93.8. TECHNIQUE: Transabdominal and transvaginal pelvic ultrasound was performed using standard protocol. COMPARISON: US US pelvis from 04/01/2019 FINDINGS: KIDNEYS: Kidneys are symmetric in size. No evidence of renal calculi. No evidence of hydronephrosis. No renal mass or cyst identified. UTERUS: Position: Anteverted. Size: 8.4 long by 4.2 AP by 5.4 transverse cm Endometrium: 0.5 cm. Normal for patient's menstrual status. Myometrium: Unremarkable. Cervix: Small cervical nabothian cysts. OVARIES: Right: 2.9 x 2.3 x 2.3 cm Cyst or mass: Small functional cysts. Left: 2.8 x 2.1 x 2.2 cm Cyst or mass: 2.2 x 2.2 x 1.7 cm simple cyst likely reflecting a functional cyst. DOPPLER: Color: Symmetric and uniform flow to both ovaries. No hyperemia. Duplex: Normal ovarian arterial waveforms visualized. CUL-DE-SAC: Free fluid: Small amount of free fluid adjacent to the right ovary. Other: None. IMPRESSION: 1. Normal sonographic appearance of the kidneys. 2. Normal-appearing uterus with endometrial stripe within normal limits. 3. Unremarkable bilateral ovaries. 2.2 cm simple left ovarian functional cyst. DATA REPOSITORY:
== END 2020-08-15 01:11 ==
PROVIDERS: PCP Nurse Practitioner Family; Visit Provider Obstetrics & Gynecology
DX: N93.8 Other specified abnormal uterine and vaginal bleeding (principal); N83.292 Other ovarian cyst, left side
CPT/HCPCS: 76830; 76856

== ENCOUNTER 2020-09-08 11:34 | Emergency (ER) | payer MEDICAID, SELFPAY ==
[2020-09-08 11:35] VITALS: BP 140/89; PULSE 79; RESP 16; TEMP 37; O2SAT 98
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
--- NOTE | 2020-09-08 12:00 | DI.CT_ITS ---
EXAM: CT HEAD WO CLINICAL HISTORY: diffuse headache, r/o acute disease. TECHNIQUE: Imaging Protocol: Axial computed tomography images with coronal and sagittal reformatted images were created and reviewed FINDINGS: There are no skull fractures nor fluid in the visualized paranasal sinuses. There is no evidence of intracranial hemorrhage, mass effect, or shift of midline structures. There are no extra-axial fluid collections. The ventricles are not enlarged or shifted and there is no blo od within the ventricular system nor within the basal cisterns. IMPRESSION: No acute intracranial findings on this noninfused CT scan of the brain. RADIATION DOSE DELIVERED: 790.4mGy.cm Total DLP DATA REPOSITORY: All CT scans at this facility are submitted to the National Radiology Data Registry (NRDR) Dose Index Registry (DIR) with the [employer] ([employer]). RADIATION OPTIMIZATION: All CT scans at this facility use at least one of these dose optimization te chniques: automated exposure control; mA and/or kV adjustment per patient size (includes targeted exa ms where dose is matched to clinical indication); or iterative reconstruction.
[2020-09-08] MEDS: Prochlorperazine 10 MG/2 ML VIAL IVP (12:17)
[2020-09-08] MEDS: Dexamethasone 10 MG/ML VIAL IVP (12:17)
[2020-09-08] MEDS: diphenhydrAMINE 50 MG/ML VIAL 25 MG IVP (12:18)
[2020-09-08] MEDS: Normal Saline Flush 10 ML SYR (12:23)
[2020-09-08] MEDS: Normal Saline 1,000 ML 1000 ML IV ×2 (12:26→14:09)
[2020-09-08] MEDS: Ketorolac 30 MG/ML VIAL IVP (13:40)
[2020-09-08] MEDS: ACETAMINOPHEN 1,000 MG/100 ML BTL 400 MG IVPB (13:40)
[2020-09-08 14:21] VITALS: BP 102/55; PULSE 77; RESP 18; TEMP 36.8; O2SAT 98
[2020-09-08 15:01] VITALS: BP 108/55; PULSE 84; RESP 17; TEMP 36.8; O2SAT 97
[2020-09-08 15:57] VITALS: PULSE 81; RESP 14; TEMP 36.6; O2SAT 98
[2020-09-08] MEDS: Prochlorperazine 10 MG TAB 30 MG PO (15:57)
== END 2020-09-08 16:06 | disposition home or self-care (01) ==
PROVIDERS: Emergency Provider Physician Assistant; PCP Nurse Practitioner Family
DX: G43.809 Other migraine, not intractable, without status migrainosus (principal); M54.2 Cervicalgia; I10 Essential (primary) hypertension
CPT/HCPCS: 81025; 96361; 96365; 96375; 99284; 70450; 99285; J0131; J0780; J1100; J1200; J1885

== ENCOUNTER 2021-01-14 12:17 | Emergency (ER) | payer MEDICAID, SELFPAY ==
[2021-01-14 12:22] VITALS: BP 132/86; PULSE 77; RESP 20; TEMP 36.4; O2SAT 99
[2021-01-14 12:52] LABS: Bilirubin Negative (Negative); Blood Negative (Negative); Clarity Clear (Clear); Glucose Negative (Negative); Ketones Negative (Negative); Leukocyte Esterase Trace (Negative); Nitrite Negative (Negative); Specific Gravity 1.015 (1.005-1.025); Urobilinogen 0.2 EU/dL (Up TO 0.2); pH 5.5 (5-8)
[2021-01-14 12:59] LABS: Bacteria Rare HPF (Negative); C & S Indicated? Yes; Casts Negative LPF (Negative); Crystals Negative HPF (Negative); Epithelial Cells Rare HPF (Negative); Mucus Trace (Negative); RBC 0-2 HPF (0-2)
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
--- NOTE | 2021-01-14 13:15 | DI.CT_ITS ---
Exam(s) CT RENAL COLIC WO EXAM: CT RENAL COLIC WO INDICATION: R flank pain, r/o kidney stone. COMPARISON: CT CT ABDOMEN PELVIS W from 03/19/[address] ABDOMEN PELVIS W from 03/19/2020 TECHNIQUE: CT examination was performed without contrast administration. FINDINGS: Images obtained through the lung bases are unremarkable. Visualized portions of the liver and splee n appear intact. Visualized portions of the pancreas are unremarkable. Gallbladder and bile ducts are CT normal. Abdominal aorta is of normal diameter. No significant abdominal wall hernia. No significant abdominal or pelvic adenopathy. Adrenals appear normal bilaterally. The kidneys are normal in size and shape. There is no evidence of a renal mass, hydronephrosis, or n ephrolithiasis. No ureteral dilatation or calcification identified. Urinary bladder is unremarkable in appearance. Uterus is unremarkable in appearance by CT criteria. Right ovary appears enlarged and probably conta ins at least 2 cysts, measuring 2-3 cm in diameter, versus a cysts septated cyst. Left ovary may als o contain a 2-3 cm in diameter cyst. No free fluid in the pelvis. IMPRESSION: No evidence of urinary tract calcification or obstruction. Probable right ovarian cysts versus other ovarian pathology, additional evaluation with pelvic ultras ound suggested if clinically appropriate. RADIATION DOSE DELIVERED: 903.3mGy.cm DLP 903.3mGy.cm Total DLP RADIATION OPTIMIZATION: All CT scans at this facility use at least one of these dose optimization te chniques: automated exposure control; mA and/or kV adjustment per patient size (includes targeted exa ms where dose is matched to clinical indication); or iterative reconstruction.
[2021-01-14 13:23] LABS: Abs Immature Grans 0.05 10^3/uL (0.0-0.06); Absolute Basophil Count 0.05 10^3/uL (0.0-0.2); Absolute Eosinophil Count 0.18 10^3/uL (0.0-0.7); Absolute Lymphocyte Count 2.79 10^3/uL (1.2-3.4); Absolute Monocyte Count 0.66 10^3/uL (0.1-0.8); Absolute Neutrophil Count 5.25 10^3/uL (1.2-6.7); Basophils % 0.6; HCT 39.1 % (36.0-46.0); HGB 13.2 g/dL (11.2-15.7); Immature Grans % 0.6; Lymphocytes % 31.1; MCH 28.5 pg (27.0-33.0); MCHC 33.8 % (32.0-36.0); MCV 84.4 fL (80-95); MPV 10.4 fL (8.0-11.0); Monocytes % 7.3; Neutrophils % 58.4; Nucleated RBC 0 %; Platelet Count 231 10^3/uL (130-400); RBC 4.63 10^6/uL (3.93-5.22); RDW 12.1 % (11.7-14.6); RDW-SD 36.7 fL; WBC 8.98 10^3/uL (4.4-10.8)
[2021-01-14] MEDS: Normal Saline 1,000 ML 1000 ML IV (13:25)
[2021-01-14] MEDS: Ketorolac 30 MG/ML VIAL IVP (13:25)
[2021-01-14] MEDS: Ondansetron 4 MG/2 ML VIAL IVP (13:25)
[2021-01-14 13:39] LABS: ALT 22 U/L (14-59); AST 17 U/L (15-37); Albumin 3.9 g/dL (3.4-5.0); Alkaline Phosphatase 69 U/L (46-116); Anion Gap 6.3 mmol/L (3-11); BUN 10 mg/dL (7-18); Bilirubin, Total 0.8 mg/dL (0.2-1.0); CO2 26.7 mmol/L (21.0-32.0); CREATININE 0.8 mg/dL (0.55-1.02); Calcium 8.9 mg/dL (8.5-10.1); Chloride 103 mmol/L (98-107); Glucose 85 mg/dL (74-106); Potassium 4.1 mmol/L (3.5-5.1); Sodium 136 mmol/L (136-145); Total Protein 7.4 g/dL (6.4-8.2)
[2021-01-14 15:39] VITALS: BP 119/68; PULSE 85; RESP 16; TEMP 36.4; O2SAT 97
[2021-01-14] MEDS: Cephalexin 500 MG CAP, 2 CAPS/BTL PO (15:40)
[2021-01-14] MEDS: Cephalexin 500 MG CAP PO (15:40)
== END 2021-01-14 15:46 | disposition home or self-care (01) ==
PROVIDERS: Emergency Provider Physician Assistant; PCP Nurse Practitioner Family
DX: N39.0 Urinary tract infection, site not specified (principal); R39.198 Other difficulties with micturition
CPT/HCPCS: 36415; 80053; 81025; 96361; 96374; 96375; 99284; 74176; 81003; 81015; 85025; 87086; 99285; J1885; J2405

== ENCOUNTER 2021-02-22 17:41 | Emergency (ER) | payer MEDICAID, SELFPAY ==
[2021-02-22 17:47] VITALS: BP 122/80; PULSE 119; RESP 18; TEMP 39.1; O2SAT 99
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
[2021-02-22] MEDS: Ketorolac 60 MG/2 ML VIAL IM (18:56)
--- NOTE | 2021-02-22 19:00 | DI.RAD_ITS ---
Exam(s) XR PORTABLE CHEST AP EXAM: XR PORTABLE CHEST AP CLINICAL HISTORY: fever, cough, r/o pneumonia TECHNIQUE: 2D digital imaging was performed. COMPARISON: CR,XR XR CHEST 2V PA LATERAL from 04/25/2020 FINDINGS: LUNGS: There is a new abnormal area of increased density seen in the left lower lobe above the diaphr agm. This is suspicious for pneumonia.. No pleural abnormality seen. HEART: Normal. MEDIASTINUM: Normal. BONES: Unremarkable. IMPRESSION: Left lower lobe pneumonia.. DATA REPOSITORY: RADIATION DOSE DELIVERED:
[2021-02-22 19:03] LABS: Source Nasal/Nares
--- NOTE | 2021-02-22 19:38 | DI.VRAD_ITS ---
PROCEDURE INFORMATION: Exam: XR Chest Exam date and time: 02/22/2021 7:02 PM Age: 31 years old Clinical indication: Cough and fever TECHNIQUE: Imaging protocol: XR of the chest. Views: 1 view. COMPARISON: CR XR CHEST 2V PA LATERAL 04/25/2020 8:05 PM FINDINGS: Lungs: There is a new left retrocardiac opacification concerning for airspace disease such as pneumonia. Pleural spaces: No pleural effusion. No pneumothorax. Heart/Mediastinum: Cardiomediastinal contours are within normal limits. Bones/joints: Bony structures are age-appropriate. IMPRESSION: 1. New left retrocardiac opacification worrisome for airspace disease such as pneumonia. 2. Other findings/details as above. Dictated and Authenticated by: Marian Yo MD. Ordering:RAVEN Lees MD
[2021-02-22 20:05] LABS: COVID-19 PCR Negative (Negative)
== END 2021-02-22 20:10 | disposition home or self-care (01) ==
PROVIDERS: Emergency Provider Physician Assistant; PCP Nurse Practitioner Family
DX: J18.9 Pneumonia, unspecified organism (principal)
CPT/HCPCS: 81025; 87635; 87880; 94640; 96372; 99284; 71045; 87081; J1885

== ENCOUNTER 2021-02-24 17:37 | Emergency (ER) | payer MEDICAID, SELFPAY ==
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
[2021-02-24 18:01] VITALS: BP 122/75; PULSE 113; RESP 24; TEMP 37.4; O2SAT 100
[2021-02-24 18:30] LABS: Abs Immature Grans 0.03 10^3/uL (0.0-0.06); Absolute Basophil Count 0.03 10^3/uL (0.0-0.2); Absolute Eosinophil Count 0.08 10^3/uL (0.0-0.7); Absolute Monocyte Count 0.54 10^3/uL (0.1-0.8); Absolute Neutrophil Count 4.07 10^3/uL (1.2-6.7); Basophils % 0.5; Eosinophils % 1.3; HCT 38.2 % (36.0-46.0); Immature Grans % 0.5; Lymphocytes % 22.8; MCH 28.3 pg (27.0-33.0); MPV 11.3 fL (8.0-11.0); Monocytes % 8.8; Neutrophils % 66.1; Nucleated RBC 0 %; Platelet Count 207 10^3/uL (130-400); RDW 11.9 % (11.7-14.6); RDW-SD 36.1 fL; WBC 6.15 10^3/uL (4.4-10.8)
[2021-02-24] MEDS: Normal Saline 1,000 ML 1000 ML IV (18:35)
[2021-02-24 18:48] LABS: ALT 14 U/L (14-59); AST 15 U/L (15-37); Albumin 3.2 g/dL (3.4-5.0); Alkaline Phosphatase 61 U/L (46-116); Anion Gap 14.4 mmol/L (3-11); BUN 8 mg/dL (7-18); Bilirubin, Total 0.3 mg/dL (0.2-1.0); CO2 18.6 mmol/L (21.0-32.0); CREATININE 0.9 mg/dL (0.55-1.02); Calcium 8.8 mg/dL (8.5-10.1); Chloride 106 mmol/L (98-107); Glucose 133 mg/dL (74-106); Potassium 3.4 mmol/L (3.5-5.1); Sodium 139 mmol/L (136-145); Total Protein 7.3 g/dL (6.4-8.2)
[2021-02-24] MEDS: Albuterol/Ipratropium 3 ML UPD VIAL UPD (19:48)
== END 2021-02-24 20:56 | disposition home or self-care (01) ==
PROVIDERS: Emergency Provider Registered Nurse Emergency; PCP Nurse Practitioner Family
DX: J18.9 Pneumonia, unspecified organism (principal)
CPT/HCPCS: 36415; 80053; 87040; 94640; 96360; 99284; 85025; 99283; J7620

== ENCOUNTER 2021-04-17 01:19 | Outpatient (CLI) | payer MEDICAID, SELFPAY ==
--- NOTE | 2021-04-17 06:30 | DI.US_ITS ---
Exam(s) US PELVIS TRANSVAGINAL EXAM: US PELVIS TRANSVAGINAL CLINICAL HISTORY: re-check ovarian cyst,dysfunctional uterine bleeding,n83.209 TECHNIQUE: Transabdominal and transvaginal imaging was performed using standard protocol. COMPARISON: US US PELVIS TRANSVAGINAL from 08/15/2020 US US PELVIS TRANSVAGINAL from 08/15/[address] RENAL COLIC WO from 01/14/[address] RENAL COLIC WO from 01/14/2021 FINDINGS: KIDNEYS: Kidneys are symmetric in size. No evidence of renal calculi. No evidence of hydronephrosis. No renal mass or cyst identified. UTERUS: Anteverted. 7.7 x 4.9 x 5.4 cm Endometrium: Homogeneous. 3 millimeters thickness. Myometrium: Unremarkable. Cervix: Unremarkable. OVARIES: Right: Cyst or mass: 3.3 by 3.6 by 2.9 cm simple cyst Left: Cyst or mass: None. Previous left-sided dominant follicle resolved. DOPPLER: Color: Symmetric and uniform flow to both ovaries. No hyperemia. Duplex: Normal ovarian arterial waveforms visualized. CUL-DE-SAC: Free fluid: None. IMPRESSION: 1. Normal-appearing uterus with endometrial stripe within normal limits. 2. 3.6 centimeter maximal dimension simple cyst right ovary. resolution of previously noted left-oral ed cyst. DATA REPOSITORY:
== END 2021-04-17 01:39 ==
PROVIDERS: PCP Nurse Practitioner Family; Visit Provider Obstetrics & Gynecology
DX: N80.8 Other endometriosis (principal); N83.291 Other ovarian cyst, right side; N93.8 Other specified abnormal uterine and vaginal bleeding
CPT/HCPCS: 76830; 76856

== ENCOUNTER 2021-04-30 17:45 | Outpatient (REF) | payer MEDICAID, SELFPAY ==
[2021-04-30 20:50] LABS: C Diff PCR Negative (Negative)
== END 2021-04-30 17:46 | disposition home or self-care (01) ==
LOC: NCHCN 17:45
PROVIDERS: PCP Nurse Practitioner Family; Visit Provider Family Medicine
DX: R19.7 Diarrhea, unspecified (principal)
CPT/HCPCS: 87493

== ENCOUNTER 2021-11-28 13:34 | Emergency (ER) | payer MEDICAID, SELFPAY ==
[2021-11-28 13:43] VITALS: BP 137/87; PULSE 100; RESP 16; TEMP 36.5; O2SAT 100
[2021-11-28 14:00] VITALS: BP 126/82; PULSE 98; RESP 17; TEMP 36.7; O2SAT 98
--- NOTE | 2021-11-28 14:00 | DI.US_ITS ---
Exam(s) US PELVIS TRANSVAGINAL EXAM: US PELVIS TRANSVAGINAL CLINICAL HISTORY: LLQ/pelvic pain TECHNIQUE: Ultrasound performed using standard protocol. COMPARISON: US US PELVIS TRANSVAGINAL from 04/17/2021 FINDINGS: Pelvic ultrasound was performed transabdominally and transvaginally. Uterus measures 7.1 x 4.1 x 4.8 cm. Endometrial stripe is 3.5 millimeters in thickness and appears h omogeneous. Myometrium is unremarkable in appearance. There are small bilateral simple ovarian cysts, on the right measuring about [address] diameter and the on the left measuring about 33 millimeters in greatest diameter. Overall ovarian measurements are 38 x 31 x 38 millimeters for the right ovary and 32 x 35 x 18 millimeters from the left ovary. No free fluid in the cul-de-sac. IMPRESSION: Small bilateral simple ovarian cysts. No other significant findings. DATA REPOSITORY:
[2021-11-28 14:19] LABS: Absolute Basophil Count 0.05 10^3/uL (0.0-0.2); Absolute Monocyte Count 0.14 10^3/uL (0.1-0.8); Absolute Neutrophil Count 9.91 10^3/uL (1.2-6.7); Basophils % 0.4; HCT 44.5 % (36.0-46.0); HGB 14.9 g/dL (11.2-15.7); Immature Grans % 0.9; Lymphocytes % 12.1; MCHC 33.5 % (32.0-36.0); MCV 83.6 fL (80-95); MPV 10.5 fL (8.0-11.0); Monocytes % 1.2; Neutrophils % 85.4; Platelet Count 300 10^3/uL (130-400); RBC 5.32 10^6/uL (3.93-5.22); RDW 12.6 % (11.7-14.6)
[2021-11-28] MEDS: Normal Saline 1,000 ML 1000 ML IV (14:24)
[2021-11-28] MEDS: Ketorolac 15 MG/ML VIAL IVP (14:24)
[2021-11-28 14:31] LABS: Bilirubin Negative (Negative); Blood Negative (Negative); Clarity Clear (Clear); Glucose Negative (Negative); Ketones Negative (Negative); Leukocyte Esterase Trace (Negative); Nitrite Negative (Negative); Urobilinogen 0.2 EU/dL (Up TO 0.2)
[2021-11-28 14:41] LABS: Bacteria Negative HPF (Negative); C & S Indicated? No/Sq. Contamination; Crystals Negative HPF (Negative); Epithelial Cells Moderate HPF (Negative); Mucus Trace (Negative); RBC 0-2 HPF (0-2)
[2021-11-28 14:47] LABS: ALT 19 U/L (14-59); AST 14 U/L (15-37); Albumin 4.3 g/dL (3.4-5.0); Alkaline Phosphatase 99 U/L (46-116); Anion Gap 9.1 mmol/L (3-11); BUN 11 mg/dL (7-18); Bilirubin, Total 0.3 mg/dL (0.2-1.0); CO2 23.9 mmol/L (21.0-32.0); CREATININE 0.9 mg/dL (0.55-1.02); Calcium 9.5 mg/dL (8.5-10.1); Chloride 102 mmol/L (98-107); Glucose 114 mg/dL (74-106); Lipase 93 U/L (73-393); Magnesium 1.8 mg/dL (1.8-2.4); Potassium 4.1 mmol/L (3.5-5.1); Sodium 135 mmol/L (136-145); Total Protein 8.5 g/dL (6.4-8.2)
--- NOTE | 2021-11-28 14:50 | DI.CT_ITS ---
Exam(s) CT RENAL COLIC WO EXAM: CT RENAL COLIC WO INDICATION: left flank pain. COMPARISON: CT CT RENAL COLIC WO from 01/14/2021 TECHNIQUE: CT examination was performed without contrast administration. FINDINGS: Images obtained through the lung bases are unremarkable. Visualized portions of the liver and splee n appear intact. Visualized portions of the pancreas are unremarkable. Gallbladder and bile ducts are CT normal. Abdominal aorta is of normal diameter. No significant abdominal wall hernia. No significant abdominal or pelvic adenopathy. Adrenals appear normal bilaterally. The kidneys are normal in size and shape. There is no evidence of a renal mass, hydronephrosis, or n ephrolithiasis. No ureteral dilatation or calcification identified. Urinary bladder is nearly empty grossly. [facility] st ructures appear intact.. IMPRESSION: Negative noncontrast abdominal and pelvic CT. No urinary tract calcification or obstruction. RADIATION DOSE DELIVERED: 977.67mGy.cm DLP 977.67mGy.cm Total DLP !Error CTDIvol RADIATION OPTIMIZATION: All CT scans at this facility use at least one of these dose optimization te chniques: automated exposure control; mA and/or kV adjustment per patient size (includes targeted exa ms where dose is matched to clinical indication); or iterative reconstruction.
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
== END 2021-11-28 16:13 | disposition home or self-care (01) ==
PROVIDERS: Emergency Provider Nurse Practitioner Family; PCP Family Medicine
DX: R10.9 Unspecified abdominal pain (principal); R10.32 Left lower quadrant pain; Z87.442 Personal history of urinary calculi
CPT/HCPCS: 36415; 80053; 81025; 83690; 96361; 96374; 99284; 74176; 76830; 76856; 81003; 81015; 83735; 85025; J1885

== ENCOUNTER 2021-11-30 10:37 | Outpatient (REF) | payer MEDICAID, SELFPAY ==
[2021-12-03 14:46] LABS: Chlamydia Result Negative (Negative); GC Result Negative (Negative)
== END 2021-11-30 10:38 | disposition home or self-care (01) ==
LOC: LBN 10:37
PROVIDERS: PCP Family Medicine; Visit Provider Obstetrics & Gynecology Gynecology
DX: R10.2 Pelvic and perineal pain (principal); Z11.3 Encounter for screening for infections with a predominantly sexual mode of transmission
CPT/HCPCS: 87491; 87591

== ENCOUNTER 2021-12-27 19:08 | Outpatient (REF) | payer MEDICAID, SELFPAY | END 2021-12-27 19:09 | disposition home or self-care (01) | LOC: LBN 19:08 | PROVIDERS: PCP Family Medicine; Visit Provider Obstetrics & Gynecology Gynecology | DX: N76.0 Acute vaginitis (principal); R30.0 Dysuria | CPT/HCPCS: 87086; 87480; 87510; 87660 ==

== ENCOUNTER 2022-03-15 15:08 | Outpatient (REF) | payer MEDICAID, SELFPAY ==
[2022-03-16 12:05] LABS: COVID-19 RT-PCR UVMMC Result Negative (Negative)
== END 2022-03-15 15:09 | disposition home or self-care (01) ==
LOC: NCHCN 15:08
PROVIDERS: PCP Family Medicine; Visit Provider Family Medicine
DX: J20.8 Acute bronchitis due to other specified organisms (principal); Z20.822 Contact with and (suspected) exposure to COVID-19
CPT/HCPCS: U0003

== ENCOUNTER 2022-04-08 15:31 | Outpatient (CLI) | payer MEDICAID, SELFPAY ==
[2022-04-08 15:36] LABS: Abs Immature Grans 0.06 10^3/uL (0.0-0.06); Absolute Basophil Count 0.06 10^3/uL (0.0-0.2); Absolute Eosinophil Count 0.18 10^3/uL (0.0-0.7); Absolute Monocyte Count 0.73 10^3/uL (0.1-0.8); Absolute Neutrophil Count 4.62 10^3/uL (1.2-6.7); Basophils % 0.7; HCT 40.1 % (36.0-46.0); HGB 13.6 g/dL (11.2-15.7); Immature Grans % 0.7; Lymphocytes % 38.3; MCH 28.2 pg (27.0-33.0); MCHC 33.9 % (32.0-36.0); MCV 83 fL (80-95); MPV 10.8 fL (8.0-11.0); Neutrophils % 50.3; Platelet Count 241 10^3/uL (130-400); RBC 4.82 10^6/uL (3.93-5.22); RDW-SD 36.3 fL; WBC 9.15 10^3/uL (4.4-10.8)
[2022-04-08 19:50] LABS: ALT 17 U/L (14-59); AST 21 U/L (15-37); Albumin 3.8 g/dL (3.4-5.0); Alkaline Phosphatase 61 U/L (46-116); Anion Gap 13.9 mmol/L (3-11); BUN 11 mg/dL (7-18); Bilirubin, Total 0.4 mg/dL (0.2-1.0); CO2 24.1 mmol/L (21.0-32.0); CREATININE 0.6 mg/dL (0.55-1.02); Calcium 9.7 mg/dL (8.5-10.1); Chloride 102 mmol/L (98-107); Estimated GFR 122.23 (mL/min/1.73m2); Glucose 75 mg/dL (74-106); Potassium 4.2 mmol/L (3.5-5.1); Sodium 140 mmol/L (136-145); Total Protein 7.4 g/dL (6.4-8.2)
[2022-04-08 19:58] LABS: Amylase 46 U/L (25-115); Lipase 97 U/L (73-393)
== END 2022-04-08 15:32 | disposition home or self-care (01) ==
LOC: LBO 15:32
PROVIDERS: PCP Family Medicine; Visit Provider Nurse Practitioner Family
DX: R10.12 Left upper quadrant pain (principal)
CPT/HCPCS: 36415; 80053; 83690; 82150; 85025

== ENCOUNTER 2022-04-19 07:36 | Emergency (ER) | payer MEDICAID, SELFPAY ==
[2022-04-19 07:44] VITALS: BP 137/80; PULSE 79; RESP 18; TEMP 36.3; O2SAT 100
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
[2022-04-19] MEDS: Dexamethasone 10 MG/ML VIAL PO (08:41)
[2022-04-19] MEDS: Ondansetron O.D.T. 4 MG TABEF PO (08:42)
[2022-04-19] MEDS: Amoxicillin 875/Clav. 125 TAB PO (09:06)
== END 2022-04-19 09:05 | disposition home or self-care (01) ==
PROVIDERS: Emergency Provider Registered Nurse Emergency; PCP Family Medicine
DX: J02.9 Acute pharyngitis, unspecified (principal)
CPT/HCPCS: 87880; 99283; 87081; 99284; J1100

== ENCOUNTER 2022-06-08 16:45 | Emergency (ER) | payer MEDICAID, SELFPAY ==
[2022-06-08 16:51] VITALS: BP 130/83; PULSE 96; RESP 17; TEMP 37; O2SAT 99
[2022-06-08] MEDS: Ondansetron O.D.T. 4 MG TABEF PO (17:33)
--- NOTE | 2022-06-08 18:10 | NUR.NOTE ---
Nursing Note: Patient stated to Stan Shin that she was sick of waiting so long, watching others go in and out, did not feel well so was going to go home.
== END 2022-06-08 18:09 | disposition left before discharge ==
PROVIDERS: PCP Family Medicine
DX: Z53.21 Procedure and treatment not carried out due to patient leaving prior to being seen by health care provider (principal)

== ENCOUNTER 2022-06-10 03:26 | Outpatient (CLI) | payer MEDICAID, SELFPAY ==
[2022-06-10 13:58] LABS: ESR 3 mm/hr (0-20)
[2022-06-10 14:00] LABS: Abs Immature Grans 0.11 10^3/uL (0.0-0.06); Absolute Basophil Count 0.07 10^3/uL (0.0-0.2); Absolute Eosinophil Count 0.21 10^3/uL (0.0-0.7); Absolute Lymphocyte Count 3.05 10^3/uL (1.2-3.4); Absolute Monocyte Count 0.86 10^3/uL (0.1-0.8); Absolute Neutrophil Count 6.16 10^3/uL (1.2-6.7); Basophils % 0.7; HCT 38.3 % (36.0-46.0); HGB 13.1 g/dL (11.2-15.7); Immature Grans % 1.1; Lymphocytes % 29.2; MCH 28.7 pg (27.0-33.0); MCHC 34.2 % (32.0-36.0); MCV 84 fL (80-95); MPV 10.7 fL (8.0-11.0); Monocytes % 8.2; Neutrophils % 58.8; Platelet Count 272 10^3/uL (130-400); RBC 4.56 10^6/uL (3.93-5.22); RDW 12.3 % (11.7-14.6); RDW-SD 37.3 fL; WBC 10.46 10^3/uL (4.4-10.8)
[2022-06-10 14:28] LABS: ALT 16 U/L (14-59); AST 12 U/L (15-37); Alkaline Phosphatase 73 U/L (46-116); Anion Gap 9.7 mmol/L (3-11); BUN 16 mg/dL (7-18); Bilirubin, Total 0.4 mg/dL (0.2-1.0); C-Reactive Protein 0.48 mg/dL (0.0-0.3); CO2 24.3 mmol/L (21.0-32.0); CREATININE 0.9 mg/dL (0.55-1.02); Calcium 9.4 mg/dL (8.5-10.1); Chloride 102 mmol/L (98-107); Estimated GFR 87.11 (mL/min/1.73m2); Glucose 92 mg/dL (74-106); Potassium 4.3 mmol/L (3.5-5.1); Sodium 136 mmol/L (136-145); Total Protein 7.6 g/dL (6.4-8.2)
== END 2022-06-10 03:27 | disposition home or self-care (01) ==
PROVIDERS: PCP Family Medicine; Visit Provider Physician Assistant
DX: Z51.81 Encounter for therapeutic drug level monitoring (principal)
CPT/HCPCS: 36415; 80053; 85652; 85025; 86140

== ENCOUNTER 2022-06-28 11:10 | Outpatient (CLI) | payer MEDICAID, SELFPAY ==
[2022-06-28 12:35] LABS: HCG Quant, Pregnancy < 1 mIU/mL (1-3)
== END 2022-06-28 11:11 | disposition home or self-care (01) ==
LOC: LBO 11:10
PROVIDERS: Obstetrics & Gynecology Gynecology; PCP Family Medicine; Visit Provider Family Medicine
DX: N92.6 Irregular menstruation, unspecified (principal)
CPT/HCPCS: 36415; 84702

== ENCOUNTER 2022-12-12 11:49 | Emergency (ER) | payer MEDICAID, SELFPAY ==
--- NOTE | 2022-12-12 12:00 | RT.EKG_ITS ---
APPROVED REPORT Exam: Resting ECG Reason for Exam: dizziness Patient Location: E HR:86 bpm ECG Measurements Heart Rate 86 AXIS AZ 153 P 50 QRSd 102 QRS 48 QT 361 T 39 QTc 433 Conclusion Sinus rhythm...normal P axis, V-rate 60- 99. Sinus. Normal axis. No STEMI. I have reviewed and interpreted ECG and agree with software generated interpretation.
[2022-12-12 12:01] VITALS: BP 135/97; PULSE 108; O2SAT 100
--- NOTE | 2022-12-12 12:30 | DI.CT_ITS ---
Exam(s) CT BRAIN NECK CTA EXAM: CT BRAIN NECK CTA CLINICAL HISTORY: Visual disturbances, Headache. TECHNIQUE: Imaging Protocol: Axial CT angiography was performed with multi-slice acquisition and mu lti-planar and/or 3D reconstructions. CONTRAST MATERIAL: Intravenous: Omnipaque 350 contrast volume:100 mL COMPARISON: CT CT HEAD WO from 09/08/[address] RENAL COLIC WO from 11/28/2021 FINDINGS: CT Head W/O and W: Ventricles and Extra axial spaces: Normal in size and morphology for the patient's age. Hemorrhage: None. Cerebral parenchyma: Normal. Midline shift: None. Brainstem/Cerebellum: Normal. Calvarium: Normal. Visualized Paranasal sinuses/Mastoids: Clear. Soft Tissues: Unremarkable. Enhancement: Unremarkable. CTA Neck W: Common Carotid: Right: No dissection, occlusion or significant stenosis. Left: No dissection, occlusion or significant stenosis. External Carotid: Right: No occlusion or significant stenosis. Left: No occlusion or significant stenosis. Internal Carotid: Right: No dissection, occlusion or significant stenosis. Left: No dissection, occlusion or significant stenosis. Vertebral Artery: Right: No dissection, occlusion or significant stenosis. Left: No dissection, occlusion or significant stenosis. Lung Apices: Normal. Bones: Within normal limits for the patient's age. Soft Tissues: Normal. Thyroid gland: Unremarkable. CTA Brain W: Internal Carotid Arteries: Normal. Anterior Cerebral Arteries: Right: No aneurysm, occlusion or significant stenosis. Left: No aneurysm, occlusion or significant stenosis. Middle Cerebral Arteries: Right: No aneurysm, occlusion or significant stenosis. Left: No aneurysm, occlusion or significant stenosis. Posterior Cerebral Arteries: Right: No aneurysm, occlusion or significant stenosis. Left: No aneurysm, occlusion or significant stenosis. Vertebral Arteries: Right: No aneurysm, occlusion or significant stenosis. Left: No aneurysm, occlusion or significant stenosis. Basilar Artery: No aneurysm, occlusion or significant stenosis. IMPRESSION: 1. No large vessel occlusion or significant stenosis on the CT angiography of the head. 2. No acute intracranial process. 3. No occlusion or significant stenosis on the CT angiography of the neck. RADIATION DOSE DELIVERED: 2,232.54mGy.cm Total DLP DATA REPOSITORY: All CT scans at this facility are submitted to the National Radiology Data Registry (NRDR) Dose Index Registry (DIR) with the [employer] (A[employer]). RADIATION OPTIMIZATION: All CT scans at this facility use at least one of these dose optimization te chniques: automated exposure control; mA and/or kV adjustment per patient size (includes targeted exa ms where dose is matched to clinical indication); or iterative reconstruction.
[2022-12-12 12:35] LABS: Abs Immature Grans 0.06 10^3/uL (0.0-0.06); Absolute Basophil Count 0.05 10^3/uL (0.0-0.2); Absolute Lymphocyte Count 2.56 10^3/uL (1.2-3.4); Absolute Neutrophil Count 4.83 10^3/uL (1.2-6.7); Basophils % 0.6; Eosinophils % 1.2; HCT 40.8 % (36.0-46.0); HGB 13.7 g/dL (11.2-15.7); Immature Grans % 0.7; Lymphocytes % 31.2; MCH 27.5 pg (27.0-33.0); MCHC 33.6 % (32.0-36.0); MCV 82 fL (80-95); MPV 10.5 fL (8.0-11.0); Monocytes % 7.3; Platelet Count 281 10^3/uL (130-400); RBC 4.99 10^6/uL (3.93-5.22); RDW 12.6 % (11.7-14.6); RDW-SD 37.6 fL
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
[2022-12-12 12:55] LABS: ALT 19 U/L (14-59); AST 13 U/L (15-37); Albumin 3.6 g/dL (3.4-5.0); Alkaline Phosphatase 72 U/L (46-116); Anion Gap 9.7 mmol/L (3-11); BUN 13 mg/dL (7-18); Bilirubin, Total 0.3 mg/dL (0.2-1.0); CO2 26.3 mmol/L (21.0-32.0); CREATININE 0.8 mg/dL (0.55-1.02); Calcium 9.3 mg/dL (8.5-10.1); Chloride 104 mmol/L (98-107); Estimated GFR 100.33 (mL/min/1.73m2); Glucose 110 mg/dL (74-106); Potassium 3.8 mmol/L (3.5-5.1); Sodium 140 mmol/L (136-145); Total Protein 7.6 g/dL (6.4-8.2)
[2022-12-12] MEDS: Normal Saline 1,000 ML 1000 ML IV (12:56)
[2022-12-12 13:00] LABS: Bilirubin Negative (Negative); Blood Negative (Negative); Clarity Clear (Clear); Glucose Negative (Negative); Ketones Negative (Negative); Leukocyte Esterase Negative (Negative); Nitrite Negative (Negative); Specific Gravity 1.015 (1.005-1.025); Urobilinogen 0.2 mg/dL (Up to 0.2)
[2022-12-12] MEDS: Normal Saline Flush 10 ML SYR IVP (13:37)
[2022-12-12] MEDS: Omnipaque 350 MG/ML 500 ML BTL-Imaging package IJ (13:38)
[2022-12-12] MEDS: Normal Saline - Diluent 50 ML VIAL IJ (13:38)
[2022-12-12 14:19] VITALS: BP 101/68; PULSE 83; TEMP 37.1; O2SAT 93
[2022-12-12] MEDS: Ketorolac 30 MG/ML VIAL IVP (14:39)
[2022-12-12] MEDS: SUMAtriptan 6 MG/0.5 ML VIAL SC (14:39)
[2022-12-12 15:39] VITALS: BP 127/78; PULSE 87; RESP 18; O2SAT 98
== END 2022-12-12 15:41 | disposition home or self-care (01) ==
PROVIDERS: Emergency Provider Registered Nurse Emergency; PCP Family Medicine
DX: R51.9 Headache, unspecified (principal); R42 Dizziness and giddiness; H53.8 Other visual disturbances
CPT/HCPCS: 36415; 70496; 70498; 80053; 81025; 93005; 96361; 96372; 96374; 96375; 99285; 81003; 85025; 93010; 99284; J1885

== ENCOUNTER 2023-01-27 04:16 | Outpatient (CLI) | payer MEDICAID, SELFPAY ==
[2023-01-27 07:48] LABS: HCT 39.9 % (36.0-46.0); HGB 13.7 g/dL (11.2-15.7); MCH 28.8 pg (27.0-33.0); MCHC 34.3 % (32.0-36.0); MCV 84 fL (80-95); MPV 10.3 fL (8.0-11.0); Platelet Count 282 10^3/uL (130-400); RBC 4.76 10^6/uL (3.93-5.22); RDW-SD 39.7 fL; WBC 8.31 10^3/uL (4.4-10.8)
[2023-01-27 08:49] LABS: BUN 15 mg/dL (7-18); CREATININE 0.8 mg/dL (0.55-1.02); Chloride 105 mmol/L (98-107); Estimated GFR 100.33 (mL/min/1.73m2); Glucose 96 mg/dL (74-106); Potassium 3.9 mmol/L (3.5-5.1); Sodium 139 mmol/L (136-145)
[2023-01-27 08:52] LABS: HCG Qual (Serum) Negative
== END 2023-01-27 04:17 | disposition home or self-care (01) ==
LOC: LBO 04:16
PROVIDERS: PCP Family Medicine; Visit Provider Obstetrics & Gynecology Gynecology
DX: Z30.09 Encounter for other general counseling and advice on contraception (principal); Z01.818 Encounter for other preprocedural examination; Z01.812 Encounter for preprocedural laboratory examination
CPT/HCPCS: 36415; 80048; 85027; 86850; 86900; 86901; 84703

== ENCOUNTER 2023-01-29 06:12 | Day surgery (SDC) | payer MEDICAID, SELFPAY ==
[2023-01-29] VITALS (8 sets, daily range): BP systolic 102–127; BP diastolic 49–83; PULSE 64–77; RESP 16–22; TEMP 35.7–36.5; O2SAT 96–100; BMI 38.9
[2023-01-29] MEDS: Lactated Ringers 1,000 ML 125 ML IV (06:51)
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
--- NOTE | 2023-01-29 08:19 | FALL_PTH ---
PATIENT: Gladys Lopez LOC: [facility] U#:[id number] AGE/SX: 32/F ROOM: RE01/29/[address]: Gris Burr : 1990 BED: DIS: 01/29/2023 SPEC #: [id number] RECD: 01/29/23 12:35 STATUS: REFUGIO BERG #: [id number] VICKIE: 01/29/23 08:[address]: Gris Burr DEPT: Surgical Specimen RECD BY: Yolanda Hernandez ENTERED: 01/29/23 12:36 SP TYPE: Fall OTHR DR: Jay Cooper Tissues: 1 - FALLOPIAN TUBE (STERILIZATION) 2 - FALLOPIAN TUBE (STERILIZATION) Procedures: GROSS AND MICRO LEVEL 2 Comments: [id number]
[2023-01-29] MEDS: Bupivacaine 0.25% Pres-Free 30 ML VIAL (08:37)
[2023-01-29] MEDS: HYDROmorphone 2 MG/ML SYR IVP ×2 (09:02→09:12)
[2023-01-29] MEDS: Normal Saline 10 ML VIAL IJ (09:02)
--- NOTE | 2023-01-29 09:03 | W.PM.OP ---
Date of service: 01/29/23 Time of Service: 09:03 Operative Note Operative Note DATE OF PROCEDURE: 01/29/23 PRE-OP DIAGNOSIS: Undesired fertility PROCEDURE: Laparoscopic bilateral salpingectomy SURGEON: Gris Burr ASSISTING SURGEON: Archana Garrison ANESTHESIA TYPE: General LMA/ETT Refer to Anesthesia Record ESTIMATED BLOOD LOSS: 0 PATHOLOGY: other (Right and left fallopian tubes to pathology) COMPLICATIONS: None Patient was transported to: PACU Patient's condition: stable Indications: Pt is a 32yo female with history of menstrual irregularity and dysmenorrhea previously taking extended cycle OCPs who developed migraine headaches and was advised to stop the OCPs. Patient does not desire any future pregnancies and requested permanent sterilization. Findings: Normal pelvis no evidence of endometriosis or adhesions. Right Fallopian tube cranberry was attached to the serosal surface of the right ovary. Normal appendix normal upper abdomen. Procedure Description: Patient was taken to the operating room where she was placed in the dorsal supine position and endotracheal anesthesia was administered without difficulty. SCDs were in place. A surgical timeout was performed. She was then placed in the dorsolithotomy position and a tenaculum was applied to the anterior lip of the cervix for the purpose of uterine manipulation. She was prepped and draped in the usual sterile fashion. The umbilical fold was infiltrated with 0.25% Marcaine without epinephrine and 12 mm vertical skin incision was made in the umbilicus. Through this incision a varies needle connected to carbon dioxide gas was inserted into the abdomen and intra-abdominal placement confirmed by drop in the intra-abdominal pressure. Once a pneumoperitoneum was established a 12 mm Visiport trocar was introduced into the abdomen under direct visualization. The patient was then placed in Trendelenburg and 2 sites on the abdomen approximately 6 cm diagonal to the right of and left of the umbilical incision were transilluminated, the skin infiltrated with 0.25% Marcaine and incised with a scalpel and under direct visualization two 5 mm ports were placed in the right and left lower quadrants respectively. The abdomen was inspected with the above-noted findings. The left fallopian tube located and followed out to its fimbriated end and a LigaSure electrocautery device was used to clamp cauterize and transect the fimbria from the left mesosalpinx to the level of the left uterine cornua which was clamped cauterized and transected. The left fallopian tube was then delivered through the 10 mm umbilical port and passed off of the operative field. A similar technique was carried out on the right fallopian tube without difficulty. The right fallopian tube was then delivered through the umbilical port. Both fallopian tube pedicles were inspected and noted to be hemostatic. Under direct visualization the two 5 mm ports were removed, pneumoperitoneum reduced, and the umbilical port removed. The fascia of the umbilical port site was reapproximated with interrupted suture of 0 Vicryl. The skin of all trocar sites was reapproximated with 4-0 Monocryl and covered with. Skin glue The patient was awakened extubated and transported to recovery area in stable condition. All sponge lap needle counts are correct x2.
--- NOTE | 2023-01-29 10:05 | W.ANESPOSTOP ---
Postoperative Evaluation Date, Time and Location Date Performed: 01/29/23 Time Performed: 10:05 Patient Location: Day Surgery Unit Vital Signs Most Recent Imported Vital Signs: Most Recent Vital Signs Temp Pulse Resp BP Pulse Ox 35.9 C L 64 16 121/76 100 01/29/23 09:35 01/29/23 09:35 01/29/23 09:35 01/29/23 09:35 01/29/23 09:35 Pain Score Most Recent Pain Score: Most Recent Pain Score Pain Level 4 01/29/23 09:35 Assessment Mental Status: Awake (Alert & Oriented to Patient Baseline) Airway and Respiratory Function: Patent airway with normal (patient baseline) respiratory exam Cardiovascular Function: Hemodynamically Stable Hydration Status: Adequately Hydrated Nausea & Vomiting: No Nausea or Vomiting Pain: Pain is tolerable per patient Peripheral Nerve Block: Patient did not receive a nerve block
[2023-01-29] MEDS: oxyCODONE 5 mg/Acetaminophen 325 mg TAB PO (10:15)
--- NOTE | 2023-01-29 10:31 | W.ANESPOSTOP ---
Postoperative Evaluation Date, Time and Location Date Performed: 01/29/23 Time Performed: 10:31 Patient Location: Day Surgery Unit Vital Signs Most Recent Imported Vital Signs: Most Recent Vital Signs Temp Pulse Resp BP Pulse Ox 35.7 C L 69 16 116/70 100 01/29/23 10:05 01/29/23 10:05 01/29/23 10:05 01/29/23 10:05 01/29/23 10:05 Most Recent Vital Signs Temp Pulse Resp BP Pulse Ox 35.9 C L 64 16 121/76 100 01/29/23 09:35 01/29/23 09:35 01/29/23 09:35 01/29/23 09:35 01/29/23 09:35 Pain Score Most Recent Pain Score: Most Recent Pain Score Pain Level 4 01/29/23 10:05 Assessment Mental Status: Awake (Alert & Oriented to Patient Baseline) Airway and Respiratory Function: Patent airway with normal (patient baseline) respiratory exam Cardiovascular Function: Hemodynamically Stable Hydration Status: Adequately Hydrated Nausea & Vomiting: No Nausea or Vomiting Pain: Pain is tolerable per patient Peripheral Nerve Block: Patient did not receive a nerve block
--- NOTE | 2023-01-30 08:37 | W.PM.DSUDISC ---
Date of service: 01/29/23 Time of Service: 11:00 Discharge Plan Disposition Patient Disposition: Home Discharge Details Reason For Visit: bilateral tubal sterilization Attending Provider: Gris Burr Primary Care Provider: Jay Cooper [place] Meds and New Rx's Prescriptions: No Action aripiprazole [Abilify] 5 mg tablet 5 mg PO HS ibuprofen 200 mg tablet 200 mg PO QID PRN acetaminophen [Tylenol] 325 mg capsule 325 mg PO Q6H PRN naproxen [EC-Naproxen] 500 mg tablet,delayed release (DR/EC) 500 mg PO BID Qty: 60 0RF oxycodone-acetaminophen [Endocet] 5-325 mg tablet 1 tab PO Q6H MDD 4 PRN (Reason: pain) Qty: 5 0RF ondansetron HCl 4 mg tablet 4 mg PO Q6H PRN (Reason: nausea and vomiting) Qty: 3 0RF Rx Instructions: take medication if nausea or vomiting occurs with Percocet oxycodone-acetaminophen [Endocet] 5-325 mg tablet 1 tab PO Q6H MDD 4 PRN (Reason: pain) Qty: 5 0RF montelukast [Singulair] 10 mg Tablet 10 mg PO HS albuterol sulfate [ProAir HFA] 90 mcg/actuation Hfa Aerosol Inhaler See Rx Instructions .ROUTE .COMPLEX PRN Rx Instructions: 2 puff inhaled fluticasone propionate [Flovent HFA] 110 mcg/actuation Hfa Aerosol Inhaler 2 puff INHALATION BID spironolactone 50 mg Tablet 50 mg PO BID propranolol 10 mg tablet 10 mg PO HS topiramate 25 mg tablet 50 mg PO QHS Patient Comments: TAKE ONE TABLET BY MOUTH AT BEDTIME TO PREVENT MIGRAINE sumatriptan succinate [Imitrex] 25 mg tablet See Rx Instructions .ROUTE .COMPLEX Qty: 14 0RF Rx Instructions: take 1 tab at onset of headache; if no relief may repeat 1 tab after at least 2 hrs; max = 4 tabs/24 hr ipratropium-albuterol 0.5 mg-3 mg(2.5 mg base)/3 mL solution for nebulization 3 ml inhalation Q6H PRN (Reason: shortness of breath or wheezing) Qty: 15 0RF omeprazole 40 mg capsule,delayed release(DR/EC) 40 cap PO HS Patient Comments: TAKE ONE CAPSULE BY MOUTH EVERY DAY Discharge Instructions Stand Alone Forms: Anesthesia Discharge Inst., Anes.Sugammadex Interaction, DSU [employer] SurgeryW/Incision, Marc Camara (DSU) Activity:: Activity as Tolerated Remove Dressings/Wound Care:: 24 hours Shower/Bathe:: 24 hours Diet:: As Tolerated Discharge Orders Discharge Orders: Discharge Order (Routine); Ordered 01/30/23 Ordered By: Gris Burr Discharge Data Discharge Date/Time-TO BE ENTERED AT DEPARTURE: 01/29/23 11:00
== END 2023-01-29 11:00 | disposition home or self-care (01) ==
PROVIDERS: PCP Family Medicine; Visit Provider Obstetrics & Gynecology Gynecology
PROC: (CPT 58661; principal; 2023-01-29 07:30)
DX: Z30.2 Encounter for sterilization (principal); N94.6 Dysmenorrhea, unspecified; N92.6 Irregular menstruation, unspecified; G43.909 Migraine, unspecified, not intractable, without status migrainosus; N83.8 Other noninflammatory disorders of ovary, fallopian tube and broad ligament
CPT/HCPCS: 58661; 88302; J0131; J1100; J1170; J1885; J2405; J2704; J3010

== ENCOUNTER 2023-02-18 17:44 | Outpatient (REF) | payer MEDICAID, SELFPAY ==
[2023-02-18 20:25] LABS: C Diff PCR Negative (Negative)
[2023-02-19 22:56] LABS: Campylobacter PCR Negative (Negative); Salmonella PCR Negative (Negative); Shiga Toxin PCR Negative (Negative); Shigella/Enteroinvasive Ecoli Negative (Negative)
== END 2023-02-18 17:45 | disposition home or self-care (01) ==
LOC: NCHCN 17:44
PROVIDERS: PCP Family Medicine; Visit Provider Physician Assistant
DX: R19.7 Diarrhea, unspecified (principal)
CPT/HCPCS: 87329; 87493; 87505

== ENCOUNTER 2023-04-09 16:07 | Outpatient (REF) | payer OTHER, MEDICAID, SELFPAY ==
[2023-04-09 21:28] LABS: Bilirubin Negative (Negative); Blood Large (Negative); Clarity Cloudy (Clear); Glucose Negative (Negative); Ketones Negative (Negative); Leukocyte Esterase Small (Negative); Nitrite Positive (Negative); Specific Gravity >= 1.030 (1.005-1.025); Urobilinogen 0.2 mg/dL (Up to 0.2); pH 5.5 (5-8)
[2023-04-09 21:44] LABS: Bacteria Many HPF (Negative); C & S Indicated? Yes; Crystals Negative HPF (Negative); Epithelial Cells Rare HPF (Negative); Mucus Negative (Negative); Other Cells Rare Transitional (Negative); RBC 20-50 HPF (0-2)
== END 2023-04-09 16:08 | disposition home or self-care (01) ==
LOC: LBN 16:07
PROVIDERS: PCP Family Medicine; Visit Provider Physician Assistant
DX: N39.0 Urinary tract infection, site not specified (principal); R35.0 Frequency of micturition
CPT/HCPCS: 87077; 81003; 81015; 87086

== ENCOUNTER 2023-04-09 19:58 | Observation (INO) | payer OTHER, MEDICAID, SELFPAY ==
[2023-04-09 20:02] VITALS: BP 113/86; PULSE 113; RESP 18; TEMP 36.9; O2SAT 98
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
[2023-04-09 20:29] LABS: Abs Immature Grans 0.08 10^3/uL (0.0-0.06); Absolute Eosinophil Count 0.08 10^3/uL (0.0-0.7); Absolute Lymphocyte Count 2.32 10^3/uL (1.2-3.4); Absolute Monocyte Count 1.26 10^3/uL (0.1-0.8); Absolute Neutrophil Count 12.14 10^3/uL (1.2-6.7); Basophils % 0.6; Eosinophils % 0.5; HCT 39.4 % (36.0-46.0); HGB 13.8 g/dL (11.2-15.7); Immature Grans % 0.5; Lymphocytes % 14.5; MCH 28.9 pg (27.0-33.0); MCV 82 fL (80-95); MPV 10.1 fL (8.0-11.0); Monocytes % 7.9; Platelet Count 289 10^3/uL (130-400); RBC 4.78 10^6/uL (3.93-5.22); RDW 12.7 % (11.7-14.6); RDW-SD 38.2 fL; WBC 15.98 10^3/uL (4.4-10.8)
[2023-04-09 20:33] VITALS: PULSE 108; O2SAT 99
[2023-04-09 20:33] LABS: Clarity Clear (Clear); Specific Gravity 1.005 (1.005-1.025)
[2023-04-09 20:34] LABS: Bacteria Rare HPF (Negative); C & S Indicated? C&S Done As Ordered; Casts Negative LPF (Negative); Crystals Negative HPF (Negative); Epithelial Cells Rare HPF (Negative); Mucus Negative (Negative); RBC 20-50 HPF (0-2)
[2023-04-09 20:44] LABS: ALT 21 U/L (14-59); AST 13 U/L (15-37); Albumin 4.1 g/dL (3.4-5.0); Alkaline Phosphatase 76 U/L (46-116); Anion Gap 13.3 mmol/L (3-11); BUN 11 mg/dL (7-18); Bilirubin, Total 0.4 mg/dL (0.2-1.0); CO2 20.7 mmol/L (21.0-32.0); CREATININE 0.9 mg/dL (0.55-1.02); Chloride 104 mmol/L (98-107); Estimated GFR 86.57 (mL/min/1.73m2); Glucose 89 mg/dL (74-106); Potassium 3.6 mmol/L (3.5-5.1); Sodium 138 mmol/L (136-145)
--- NOTE | 2023-04-09 20:45 | DI.RAD_ITS ---
Exam(s) XR CHEST 2V PA LATERAL EXAM: XR CHEST 2V PA LATERAL CLINICAL HISTORY: meets sepsis criteria TECHNIQUE: 2D digital imaging was performed of the chest. Two images were obtained. PA and lateral views were obtained. COMPARISON: CR,XR XR CHEST 2V PA LATERAL from 04/25/2020 FINDINGS: MEDIASTINUM: Normal. HEART: Normal. PULMONARY VASCULATURE: Normal. LUNGS: Clear. PLEURAL SPACE: No pleural effusion or pneumothorax. BONE:Within normal limits for the patient's age. OTHER FINDINGS:Normal. IMPRESSION: No acute pulmonary findings. DATA REPOSITORY: RADIATION DOSE DELIVERED:
[2023-04-09] MEDS: Normal Saline 1,000 ML 1000 ML IV (20:46)
[2023-04-09 21:02] LABS: ESR 4 mm/hr (0-20)
[2023-04-09 21:06] LABS: Lactate 1.3 mmol/L (0.6-1.4)
[2023-04-09 21:09] LABS: C-Reactive Protein 0.34 mg/dL (0.0-0.3)
[2023-04-09] MEDS: cefTRIAXone 2 GM/50 ML BAG IVPB (21:24)
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
[2023-04-09 22:01] VITALS: BP 138/87; PULSE 89; RESP 16; TEMP 37.1; O2SAT 99
--- NOTE | 2023-04-09 22:11 | DI.VRAD_ITS ---
PROCEDURE INFORMATION: Exam: XR Chest Exam date and time: 04/09/2023 9:52 PM Age: 33 years old Clinical indication: Meets sepsis criteria. Evaluate for pneumonia. TECHNIQUE: Imaging protocol: Radiologic exam of the chest. Views: 2 views. COMPARISON: CR XR PORTABLE CHEST AP 02/22/2021 7:12 PM FINDINGS: Lungs: Unremarkable. No consolidation. Pleural spaces: Unremarkable. No pleural effusion. No pneumothorax. Heart/Mediastinum: Unremarkable. No cardiomegaly. Bones/joints: Unremarkable. IMPRESSION: No acute findings. Dictated and Authenticated by: Melba Garcia MD. Ordering:CHASTITY Fonseca MD
[2023-04-09] MEDS: Topiramate 50 MG TAB PO (22:30)
[2023-04-09] MEDS: Montelukast 10 MG TAB PO (22:45)
[2023-04-09] MEDS: Propranolol 10 MG TAB PO (22:45)
[2023-04-09 23:03] LABS: COVID-19 PCR Negative (Negative); Influenza A PCR Negative (Negative); Influenza B PCR Negative (Negative); RSV PCR Negative (Negative)
[2023-04-09] MEDS: ARIPiprazole 5 MG TAB PO (23:03)
[2023-04-09 23:13] LABS: Source Nasopharynx
[2023-04-09] MEDS: Lactated Ringers 1,000 ML 1000 ML IV (23:34)
--- NOTE | 2023-04-10 | DI.US_ITS ---
Exam(s) US EXTREMITY VENOUS BI EXAM: US EXTREMITY VENOUS BI CLINICAL HISTORY: LE edema, recent COVID, on hormone therapy, ?DVT. TECHNIQUE: Bilateral lower extremity venous ultrasound performed using grayscale, color-flow, and sp ectral Doppler analysis. COMPARISON: No exams were available for comparison FINDINGS: The right common femoral, femoral and popliteal veins demonstrate normal compressibility, augmentatio n, and color Doppler. The posterior tibial and peroneal veins are patent. The saphenofemoral junctio n is unremarkable. There is no evidence of a Arnold's cyst. The soft tissues are unremarkable. The left common femoral, femoral and popliteal veins demonstrate normal compressibility, augmentation , and color Doppler. The posterior tibial and peroneal veins are patent. The saphenofemoral junction is unremarkable. There is no evidence of a Arnold's cyst. The soft tissues are unremarkable. IMPRESSION: 1. No evidence of a right lower extremity DVT. 2. No evidence of a left lower extremity DVT. DATA REPOSITORY:
--- NOTE | 2023-04-10 | DI.CT_ITS ---
Exam(s) CT CHEST PE ABD PELVIS W EXAM: CT CHEST PE ABD PELVIS W CLINICAL HISTORY: pyelonephritis, SOB, recent COVID-19, ?PE. TECHNIQUE: Imaging Protocol: Axial CT angiography was performed with multi-slice acquisition and mu lti-planar and/or 3D reconstructions. CONTRAST MATERIAL: Intravenous: Omnipaque 350contrast volume:100 mL COMPARISON: CT CT ABDOMEN PELVIS W from 03/19/[address] RENAL COLIC WO from 11/28/[address] BRAIN NECK CTA from 12/12/2022 FINDINGS: CHEST: Tracheobronchial tree: Patent where visualized. Pulmonary parenchyma: No consolidation or dominant measurable mass. No architectural distortion. Pulmonary Arteries: No evidence of filling defect to suggest pulmonary emboli. Mediastinum and [place]: No dominant adenopathy or fluid collection. The esophagus is unremarkable. Visualized thyroid gland: Unremarkable. Pleura: No effusion or pneumothorax. Heart: The heart is not dilated. No coronary artery calcifications are seen. No pericardial effusion. Aorta: Thoracic aorta non-dilated. No evidence of dissection. Bones: Within normal limits for the patient's age. Soft tissues: Unremarkable. ABDOMEN: Liver: Normal density. No measurable mass. Portal, Superior Mesenteric, and Splenic Veins: Unremarkable. Gallbladder and Biliary Tract: No radiodense calculus or dilation. Pancreas: Normal density, no abnormal calcifications or inflammatory process. Spleen: Normal. Adrenals: No masses seen. Kidneys: Normal size, contour and axis. No radiodense stones or obstructive uropathy. There is a smal l simple cyst on the left kidney. No follow-up is recommended. There is homogeneous and symmetric e nhancement of the kidneys noted No pararenal inflammation is seen. Abdominal Aorta: Abdominal portion non-dilated. Bowel: No obstruction or bowel wall thickening. No evidence of appendicitis. No evidence of pneumato sis. Peritoneal Cavity: No ascites, collection or mesenteric inflammatory response. No free air. Lymph Nodes: Within normal limits. Bones: Within normal limits for the patient's age. Soft Tissues: Unremarkable. PELVIS: Bladder: There is diffuse thickening of the wall of the urinary bladder. There is stranding seen in the surrounding soft tissues. The findings are suspicious for an infectious or inflammatory cystitis . Reproductive Organs: There is a 4.5 cm right adnexal cyst likely ovarian in origin. Lymph Nodes: Within normal limits. Bones: Within normal limits. IMPRESSION: 1. No evidence pulmonary embolism, thoracic aortic dissection or aneurysm. 2. No acute pulmonary process. 3. Diffuse thickening of the wall of the urinary bladder suspicious for cystitis. 4. 4.5 cm right ovarian cyst. RADIATION DOSE DELIVERED: 1,880.4mGy.cm Total DLP DATA REPOSITORY: All CT scans at this facility are submitted to the National Radiology Data Registry (NRDR) Dose Index Registry (DIR) with the [employer] (ACR). RADIATION OPTIMIZATION: All CT scans at this facility use at least one of these dose optimization te chniques: automated exposure control; mA and/or kV adjustment per patient size (includes targeted exa ms where dose is matched to clinical indication); or iterative reconstruction.
--- NOTE | 2023-04-10 | DI.US_ITS ---
Exam(s) US RENAL EXAM: US RENAL CLINICAL HISTORY: right flank/abdominal pain, UTI. TECHNIQUE: Estrella scale, color and spectral Doppler were used. COMPARISON: No exams were available for comparison FINDINGS: Renal size in cm: Right: 13.9. Left: 12.0. Echogenicity: Normal. Hydronephrosis: No. Cyst or mass: No. Nephrolithiasis: No. Other findings: None. Bladder:Normal. Ureteral jets: Right: Visualized and unremarkable. Left: Visualized and unremarkable. Prevoid vol:800 cc Postvoid vol:53 cc Renal color flow: Symmetric and within normal limits. IMPRESSION: No evidence of hydronephrosis or nephrolithiasis. DATA REPOSITORY:
[2023-04-10] MEDS: Ketorolac 30 MG/ML VIAL IVP (00:07)
[2023-04-10] MEDS: Lactated Ringers 1,000 ML 200 ML IV ×4 (00:37→21:53)
[2023-04-10] MEDS: Phenazopyridine 200 MG TAB PO ×2 (04:16→15:47)
[2023-04-10] MEDS: Acetaminophen 325 MG TAB PO ×3 (04:19→20:21)
[2023-04-10 07:04] LABS: Abs Immature Grans 0.05 10^3/uL (0.0-0.06); Absolute Basophil Count 0.05 10^3/uL (0.0-0.2); Absolute Eosinophil Count 0.09 10^3/uL (0.0-0.7); Absolute Lymphocyte Count 2.48 10^3/uL (1.2-3.4); Absolute Monocyte Count 0.87 10^3/uL (0.1-0.8); Basophils % 0.6; Eosinophils % 1.1; HCT 33.9 % (36.0-46.0); HGB 11.6 g/dL (11.2-15.7); Immature Grans % 0.6; Lymphocytes % 29.4; MCH 28.7 pg (27.0-33.0); MCHC 34.2 % (32.0-36.0); MCV 84 fL (80-95); MPV 10.7 fL (8.0-11.0); Monocytes % 10.3; Platelet Count 232 10^3/uL (130-400); RBC 4.04 10^6/uL (3.93-5.22); RDW 12.8 % (11.7-14.6); RDW-SD 38.8 fL; WBC 8.44 10^3/uL (4.4-10.8)
[2023-04-10 07:22] LABS: BUN 8 mg/dL (7-18); CREATININE 0.8 mg/dL (0.55-1.02); Calcium 8.2 mg/dL (8.5-10.1); Chloride 107 mmol/L (98-107); Estimated GFR 99.71 (mL/min/1.73m2); Glucose 90 mg/dL (74-106); Potassium 3.6 mmol/L (3.5-5.1); Sodium 139 mmol/L (136-145)
[2023-04-10] MEDS: Spironolactone 50 MG TAB PO ×2 (07:43→19:45)
[2023-04-10] MEDS: Omeprazole 20 MG CAPCR 40 MG PO (07:43)
[2023-04-10 07:55] VITALS: BP 126/77; PULSE 72; RESP 16; TEMP 36.7; O2SAT 98
[2023-04-10 08:24] LABS: Lab Add On Test DONE
[2023-04-10] MEDS: medroxyPROGESTERone 10 MG TAB PO (08:32)
[2023-04-10 09:13] LABS: Procalcitonin < 0.1 ng/mL
--- NOTE | 2023-04-10 10:05 | W.PM.PROGNOT ---
Date of Service Date of service: 04/10/23 Time of Service: 10:06 Assessment and Plan Assessment and plan (1) Sepsis: Status: Acute Assessment and plan: Due to UTI/suspected pyelonephritis, present on admission. Concern for a kidney stone. Await US renal. Given the fact that she is getting a CTA of the chest, I did also order a CT renal colic. Await blood and urine C&S. Continue empiric ceftriaxone 2 grams IV daily. Continue IVF. (2) UTI (urinary tract infection): Status: Acute Assessment and plan: As above. Present on admission. See above. (3) Shortness of breath: Status: Acute Assessment and plan: Post COVID-19 and on hormone therapy. W/ BLE edema, concern for DVT/PE. R/o acute PE. (4) Edema of both lower extremities: Status: Acute Assessment and plan: R/o DVT - obtain a venous doppler. (5) Asthma: Assessment and plan: I did not hear any evidence of bronchospasm on my exam today. Continue outpatient ICS/LABA and prn albuterol. Add incentive spirometry. R/o PE. (6) Migraine: Assessment and plan: H/o migraines as outpatient, not currently. Continue outpatient topiramate, propranolol for prophylaxis, triptan prn. (7) Discharge planning issues: Status: Acute Assessment and plan: Full code. Continues to require hospitalization. (8) DVT prophylaxis: Status: Acute Assessment and plan: Ruling out acute DVT given BLE edema witha venous doppler. I do think she is a slightly higher risk of a DVT given her recent COVID-19, hormone therapy, BMI of 39, so I would start chemical DVT ppx if dopplers are negative. Subjective Subjective Interval history since last seen: C/o L flank pain and suprapubic spasms when urinating. C/o slight shortness of breath since yesterday. Reports BLE swelling. Recovered from COVID-19 - had it about 14 days ago. Denies dizziness, CP. Endorses mild nausea. Has not been able to eat very much. Exam Narrative Exam Narrative: General: Pleasant female who appears tired, A&Ox3 HEENT: EOMI, MMM Heart: RRR, no m/r/g, not tachycardic on my exam Lungs: CTAB Abdomen: soft, nontender, nondistended Extremities: +1 edema BLEs, R>L. Objective Last Vital Signs Temp 36.7 C 04/10/23 07:55 Pulse 72 04/10/23 07:55 Resp 16 04/10/23 07:55 BP 126/77 04/10/23 07:55 Pulse Ox 98 04/10/23 07:55 Laboratory Results - last 24 hr 04/08/23 04/09/23 04/09/23 22:06 20:15 20:24 WBC RBC Hgb Hct MCV MCH MCHC RDW Plt Count MPV Immature Gran % Neutrophils % Lymphocytes % Monocytes % Eosinophils % Basophils % Nucleated RBC % Absolute Neutrophils Absolute Lymphocytes Absolute Monocytes Absolute Eosinophils Absolute Basophils ESR VBG Lactate Sodium 138 Potassium 3.6 Chloride 104 Carbon Dioxide 20.7 L Anion Gap 13.3 H BUN 11 Creatinine 0.9 Est GFR (CKD-EPI 2020) 86.57 Glucose 89 Calcium 9.0 Total Bilirubin 0.4 AST 13 L ALT 21 Alkaline Phosphatase 76 C-Reactive Protein Total Protein 8.0 Albumin 4.1 Procalcitonin Urine Color [place] Urine Clarity Clear Urine pH Ur Specific [place] 1.005 Urine Protein Urine Ketones Urine Blood Urine Nitrite Urine Bilirubin Urine Urobilinogen Ur Leukocyte Esterase Urine RBC 20-50 H Urine WBC 10-20 H Ur Epithelial Cells Rare Urine Crystals Negative Urine Bacteria Rare Urine Casts Negative Urine Mucus Negative Ur Culture Indicated? C&S Done As Ordered Urine Glucose COVID-19 Source Cancelled SARS-CoV-2 (PCR) Cancelled Influenza Type A (PCR) Cancelled Influenza Type B (PCR) Cancelled RSV (PCR) Cancelled Add-On Test Request 04/09/23 04/09/23 04/09/23 20:24 20:24 20:24 WBC 15.98 H RBC 4.78 Hgb 13.8 Hct 39.4 MCV 82 MCH 28.9 MCHC 35.0 RDW 12.7 Plt Count 289 MPV 10.1 Immature Gran % 0.5 Neutrophils % 76.0 Lymphocytes % 14.5 Monocytes % 7.9 Eosinophils % 0.5 Basophils % 0.6 Nucleated RBC % 0.0 Absolute Neutrophils 12.14 H Absolute Lymphocytes 2.32 Absolute Monocytes 1.26 H Absolute Eosinophils 0.08 Absolute Basophils 0.10 ESR 4 VBG Lactate Sodium Potassium Chloride Carbon Dioxide Anion Gap BUN Creatinine Est GFR (CKD-EPI 2020) Glucose Calcium Total Bilirubin AST ALT Alkaline Phosphatase C-Reactive Protein 0.34 H Total Protein Albumin Procalcitonin Urine Color Urine Clarity Urine pH Ur Specific [place] Urine Protein Urine Ketones Urine Blood Urine Nitrite Urine Bilirubin Urine Urobilinogen Ur Leukocyte Esterase Urine RBC Urine WBC Ur Epithelial Cells Urine Crystals Urine Bacteria Urine Casts Urine Mucus Ur Culture Indicated? Urine Glucose COVID-19 Source SARS-CoV-2 (PCR) Influenza Type A (PCR) Influenza Type B (PCR) RSV (PCR) Add-On Test Request 04/09/23 04/09/23 04/10/23 20:55 22:00 06:30 WBC RBC Hgb Hct MCV MCH MCHC RDW Plt Count MPV Immature Gran % Neutrophils % Lymphocytes % Monocytes % Eosinophils % Basophils % Nucleated RBC % Absolute Neutrophils Absolute Lymphocytes Absolute Monocytes Absolute Eosinophils Absolute Basophils ESR VBG Lactate 1.3 Sodium 139 Potassium 3.6 Chloride 107 Carbon Dioxide 21.0 Anion Gap 11.0 BUN 8 Creatinine 0.8 Est GFR (CKD-EPI 2020) 99.71 Glucose 90 Calcium 8.2 L Total Bilirubin AST ALT Alkaline Phosphatase C-Reactive Protein Total Protein Albumin Procalcitonin Urine Color Urine Clarity Urine pH Ur Specific [place] Urine Protein Urine Ketones Urine Blood Urine Nitrite Urine Bilirubin Urine Urobilinogen Ur Leukocyte Esterase Urine RBC Urine WBC Ur Epithelial Cells Urine Crystals Urine Bacteria Urine Casts Urine Mucus Ur Culture Indicated? Urine Glucose COVID-19 Source Nasopharynx SARS-CoV-2 (PCR) Negative Influenza Type A (PCR) Negative Influenza Type B (PCR) Negative RSV (PCR) Negative Add-On Test Request 04/10/23 04/10/23 04/10/23 06:30 06:30 06:30 WBC 8.44 RBC 4.04 Hgb 11.6 D Hct 33.9 L MCV 84 MCH 28.7 MCHC 34.2 RDW 12.8 Plt Count 232 MPV 10.7 Immature Gran % 0.6 Neutrophils % 58.0 Lymphocytes % 29.4 Monocytes % 10.3 Eosinophils % 1.1 Basophils % 0.6 Nucleated RBC % 0.0 Absolute Neutrophils 4.90 Absolute Lymphocytes 2.48 Absolute Monocytes 0.87 H Absolute Eosinophils 0.09 Absolute Basophils 0.05 ESR VBG Lactate Sodium Potassium Chloride Carbon Dioxide Anion Gap BUN Creatinine Est GFR (CKD-EPI 2020) Glucose Calcium Total Bilirubin AST ALT Alkaline Phosphatase C-Reactive Protein Total Protein Albumin Procalcitonin < 0.1 Urine Color Urine Clarity Urine pH Ur Specific [place] Urine Protein Urine Ketones Urine Blood Urine Nitrite Urine Bilirubin Urine Urobilinogen Ur Leukocyte Esterase Urine RBC Urine WBC Ur Epithelial Cells Urine Crystals Urine Bacteria Urine Casts Urine Mucus Ur Culture Indicated? Urine Glucose COVID-19 Source SARS-CoV-2 (PCR) Influenza Type A (PCR) Influenza Type B (PCR) RSV (PCR) Add-On Test Request DONE Time Spent with Patient Time Spent with Patient: 25-34 minutes Time was spent: preparing to see the patient(eg.review tests), obtaining and/or reviewing separately otained hiistory, ordering medications,tests, procedures, referring, communicating with other health home care administrator, indepentently interpreting results, counseling the patient and care coordination
[2023-04-10] MEDS: Ketorolac 15 MG/ML VIAL IVP ×2 (10:40→20:21)
[2023-04-10] MEDS: Ondansetron 4 MG/2 ML VIAL IVP (10:41)
[2023-04-10] MEDS: Normal Saline Flush 10 ML SYR IVP (10:41)
[2023-04-10 11:10] VITALS: BP 107/68; PULSE 71; RESP 24; TEMP 36.9; O2SAT 98
[2023-04-10] MEDS: Omnipaque 350 MG/ML 500 ML BTL-Imaging package 100 ML IJ (12:28)
[2023-04-10] MEDS: Normal Saline - Diluent 50 ML VIAL IJ (12:29)
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
[2023-04-10 15:50] VITALS: BP 102/65; PULSE 84; RESP 18; TEMP 36.8; O2SAT 97
[2023-04-10] MEDS: Mometasone 220 MCG 14 DOSE INHALER 1 PUFF IH (19:07)
[2023-04-10] MEDS: cefTRIAXone 2 GM/50 ML BAG IVPB (19:45)
[2023-04-10] MEDS: Montelukast 10 MG TAB PO (20:21)
[2023-04-10] MEDS: Propranolol 10 MG TAB PO (20:21)
[2023-04-10] MEDS: Topiramate 50 MG TAB PO (20:21)
[2023-04-10] MEDS: ARIPiprazole 5 MG TAB PO (20:21)
[2023-04-10 23:17] VITALS: BP 102/63; PULSE 82; RESP 18; TEMP 36.5; O2SAT 99
[2023-04-11 02:47] VITALS: BP 107/73; PULSE 77; RESP 16; TEMP 36.6; O2SAT 98
[2023-04-11] MEDS: Ketorolac 15 MG/ML VIAL IVP ×2 (04:07→13:53)
[2023-04-11] MEDS: Lactated Ringers 1,000 ML 75 ML IV (04:07)
[2023-04-11] MEDS: Normal Saline Flush 10 ML SYR IVP ×2 (04:08→13:54)
[2023-04-11 07:06] LABS: Abs Immature Grans 0.04 10^3/uL (0.0-0.06); Absolute Basophil Count 0.05 10^3/uL (0.0-0.2); Absolute Eosinophil Count 0.15 10^3/uL (0.0-0.7); Absolute Monocyte Count 0.58 10^3/uL (0.1-0.8); Absolute Neutrophil Count 3.58 10^3/uL (1.2-6.7); Basophils % 0.7; Eosinophils % 2.1; HCT 34.9 % (36.0-46.0); HGB 12.1 g/dL (11.2-15.7); Immature Grans % 0.6; MCH 28.9 pg (27.0-33.0); MCHC 34.7 % (32.0-36.0); MCV 84 fL (80-95); MPV 10.5 fL (8.0-11.0); Monocytes % 8.2; Neutrophils % 50.4; Platelet Count 249 10^3/uL (130-400); RBC 4.18 10^6/uL (3.93-5.22); RDW 12.7 % (11.7-14.6); RDW-SD 38.6 fL
[2023-04-11 07:21] LABS: Anion Gap 11.4 mmol/L (3-11); BUN 6 mg/dL (7-18); C-Reactive Protein 0.74 mg/dL (0.0-0.3); CO2 19.6 mmol/L (21.0-32.0); CREATININE 0.7 mg/dL (0.55-1.02); Calcium 8.5 mg/dL (8.5-10.1); Chloride 108 mmol/L (98-107); Estimated GFR 117.04 (mL/min/1.73m2); Glucose 89 mg/dL (74-106); Magnesium 1.7 mg/dL (1.8-2.4); Potassium 3.9 mmol/L (3.5-5.1); Sodium 139 mmol/L (136-145)
[2023-04-11 07:28] VITALS: BP 120/78; PULSE 64; RESP 16; TEMP 36.7; O2SAT 99
[2023-04-11] MEDS: Mometasone 220 MCG 14 DOSE INHALER 1 PUFF IH (08:02)
[2023-04-11] MEDS: Acetaminophen 325 MG TAB PO (08:05)
[2023-04-11] MEDS: Spironolactone 50 MG TAB PO (08:05)
[2023-04-11] MEDS: Omeprazole 20 MG CAPCR 40 MG PO (08:05)
[2023-04-11] MEDS: medroxyPROGESTERone 10 MG TAB PO (08:06)
[2023-04-11] MEDS: Furosemide 20 MG/2 ML VIAL IVP (09:10)
[2023-04-11] MEDS: Magnesium Oxide 400 MG TAB PO (09:10)
[2023-04-11 11:16] VITALS: BP 106/66; PULSE 75; RESP 16; TEMP 36.9; O2SAT 99
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
[2023-04-11 15:24] VITALS: BP 120/75; PULSE 75; RESP 16; TEMP 37.3; O2SAT 100
--- NOTE | 2023-04-11 16:22 | PDOC.CMDIS ---
Date of service: 04/11/23 Time of Service: 16:22 LACE Index Scoring Tool Questions: Length of Stay (in days): 2 Was the patient admitted via the E.D.?: Yes E.D. Visits: 1 Answers: Total Score: 6 Risk of Readmission: Low Risk Care Management Discharge Plan Reason for Hospitalization: Sepsis Discharge Plan: Gladys will return home when ready per MD; awaiting results of imaging and treatment recommendations. Anticipate once medically cleared, Gladys will follow up with outpatient providers and transport via private vehicle with her significant other. Patient/Family Education Needs: Review discharge instructions, discuss Ask Me Three.
== END 2023-04-11 15:37 | disposition home or self-care (01) ==
LOC: ER 21:09 → MS 21:56
PROVIDERS: Internal Medicine; Admitting Provider Family Medicine; Emergency Provider Student in an Organized Health Care Education/Training Program; PCP Family Medicine; Visit Provider Family Medicine
DX: A41.9 Sepsis, unspecified organism (principal); N39.0 Urinary tract infection, site not specified; J45.909 Unspecified asthma, uncomplicated; G43.909 Migraine, unspecified, not intractable, without status migrainosus; B96.20 Unspecified Escherichia coli [E. coli] as the cause of diseases classified elsewhere; E83.42 Hypomagnesemia; E87.20 Acidosis, unspecified; E28.2 Polycystic ovarian syndrome; Z87.442 Personal history of urinary calculi; F41.9 Anxiety disorder, unspecified; F32.A Depression, unspecified; I10 Essential (primary) hypertension; R06.02 Shortness of breath; R60.0 Localized edema
CPT/HCPCS: 36415; 71275; 74177; 76770; 80048; 80053; 84145; 85652; 87040; 87077; 87637; 94640; 96361; 96365; 96374; 96375; 99285; 71046; 81003; 81015; 83605; 83735; 85025; 86140; 87086; 87186; 93970; 94664; 99233; 99239; G0378; J1885; J1941; J2405

== ENCOUNTER 2023-04-15 20:03 | Outpatient (REF) | payer OTHER, MEDICAID, SELFPAY ==
[2023-04-15 19:42] LABS: Anion Gap 12.8 mmol/L (3-11); BUN 15 mg/dL (7-18); C-Reactive Protein 0.25 mg/dL (0.0-0.3); CO2 21.2 mmol/L (21.0-32.0); CREATININE 0.8 mg/dL (0.55-1.02); Calcium 9.3 mg/dL (8.5-10.1); Chloride 103 mmol/L (98-107); Estimated GFR 99.71 (mL/min/1.73m2); Glucose 83 mg/dL (74-106); Potassium 4.2 mmol/L (3.5-5.1); Sodium 137 mmol/L (136-145)
== END 2023-04-15 20:04 | disposition home or self-care (01) ==
LOC: LBN 20:03
PROVIDERS: PCP Family Medicine; Visit Provider Family Medicine
DX: E83.42 Hypomagnesemia (principal); N12 Tubulo-interstitial nephritis, not specified as acute or chronic
CPT/HCPCS: 80048; 83735; 86140

== ENCOUNTER 2023-05-01 17:53 | Outpatient (REF) | payer OTHER, MEDICAID, SELFPAY | END 2023-05-01 17:54 | disposition home or self-care (01) | LOC: LBN 17:53 | PROVIDERS: PCP Family Medicine; Visit Provider Advanced Practice Midwife | DX: R30.0 Dysuria (principal) | CPT/HCPCS: 87086 ==

== ENCOUNTER 2023-05-14 16:06 | Outpatient (REF) | payer OTHER, MEDICAID, SELFPAY ==
[2023-05-14 17:35] LABS: Anion Gap 11.7 mmol/L (3-11); BUN 16 mg/dL (7-18); CO2 23.3 mmol/L (21.0-32.0); CREATININE 0.9 mg/dL (0.55-1.02); Chloride 102 mmol/L (98-107); Estimated GFR 86.57 (mL/min/1.73m2); Glucose 89 mg/dL (74-106); Potassium 4.1 mmol/L (3.5-5.1); Sodium 137 mmol/L (136-145)
[2023-05-14 17:45] LABS: HCT 42.3 % (36.0-46.0); HGB 14.2 g/dL (11.2-15.7); MCH 28.9 pg (27.0-33.0); MCHC 33.6 % (32.0-36.0); MCV 86 fL (80-95); MPV 11.3 fL (8.0-11.0); Neutrophils % 69.5; Platelet Count 277 10^3/uL (130-400); RBC 4.92 10^6/uL (3.93-5.22); RDW 12.4 % (11.7-14.6); RDW-SD 38.8 fL; WBC 12.15 10^3/uL (4.4-10.8)
[2023-05-14 17:46] LABS: Abs Immature Grans 0.09 10^3/uL (0.0-0.06); Absolute Basophil Count 0.08 10^3/uL (0.0-0.2); Absolute Eosinophil Count 0.08 10^3/uL (0.0-0.7); Absolute Lymphocyte Count 2.66 10^3/uL (1.2-3.4); Absolute Monocyte Count 0.79 10^3/uL (0.1-0.8); Absolute Neutrophil Count 8.45 10^3/uL (1.2-6.7); Basophils % 0.7; Eosinophils % 0.7; Immature Grans % 0.7; Lymphocytes % 21.9; Monocytes % 6.5
== END 2023-05-14 16:07 | disposition home or self-care (01) ==
LOC: NCHCN 16:06
PROVIDERS: PCP Family Medicine; Visit Provider Family Medicine
DX: N12 Tubulo-interstitial nephritis, not specified as acute or chronic (principal)
CPT/HCPCS: 80048; 87077; 85025; 87086; 87186

== ENCOUNTER 2023-05-30 18:37 | Outpatient (REF) | payer OTHER, MEDICAID, SELFPAY ==
[2023-05-30 18:53] LABS: ALT 24 U/L (14-59); AST 18 U/L (15-37); Alkaline Phosphatase 67 U/L (46-116); Anion Gap 7.9 mmol/L (3-11); BUN 11 mg/dL (7-18); Bilirubin, Total 0.4 mg/dL (0.2-1.0); CO2 26.1 mmol/L (21.0-32.0); CREATININE 0.8 mg/dL (0.55-1.02); Chloride 106 mmol/L (98-107); Estimated GFR 99.71 (mL/min/1.73m2); Glucose 97 mg/dL (74-106); Lipase 61 U/L (16-77); Potassium 3.6 mmol/L (3.5-5.1); Sodium 140 mmol/L (136-145); Total Protein 7.2 g/dL (6.4-8.2)
[2023-05-30 18:57] LABS: Calcium 9.6 mg/dL (8.5-10.1)
== END 2023-05-30 18:38 | disposition home or self-care (01) ==
LOC: NCHCN 18:37
PROVIDERS: PCP Family Medicine; Visit Provider Family Medicine
DX: R10.11 Right upper quadrant pain (principal); R11.2 Nausea with vomiting, unspecified
CPT/HCPCS: 80053; 83690

== ENCOUNTER → 2023-09-09 10:44 | Outpatient (CLI) | payer OTHER, SELFPAY ==
--- NOTE | 2023-09-09 16:15 | DI.RAD_ITS ---
Exam(s) XR CHEST 2V PA LATERAL EXAM: XR CHEST 2V PA LATERAL CLINICAL HISTORY: evaluate pathology [id number] ASTHMA EXACERBATION. TECHNIQUE: 2D digital imaging was performed. COMPARISON: CR,XR XR CHEST 2V PA LATERAL from 04/09/2023 FINDINGS: 2 views: Heart size is normal. The mediastinum is not widened. Left lung is clear. There is mild infiltrate in the right middle lobe lateral segment. No pleural e ffusions. No pneumothorax. IMPRESSION: Mild right middle lobe infiltrate, predominately involving the lateral segment of the right middle lo be. No pleural effusions. DATA REPOSITORY: RADIATION DOSE DELIVERED:
--- NOTE | 2023-09-09 17:21 | DI.VRAD_ITS ---
PROCEDURE INFORMATION: Exam: XR Chest Exam date and time: 09/09/2023 4:29 PM Age: 33 years old Clinical indication: Condition or disease; Lung condition and disease; Patient HX: Evaluate pathology, asthma exacerbation TECHNIQUE: Imaging protocol: Radiologic exam of the chest. Views: 2 views. COMPARISON: 1. CT CHEST PE ABD PELVIS W 04/10/2023 12:20 PM 2. Two-view chest 04/09/2023 FINDINGS: Lungs: Mild new subpleural opacification right middle lobe, otherwise, the lungs are clear. Normal inflation. Normal tracheobronchial tree. Pleural spaces: Normal. Heart/Mediastinum: Unremarkable. Vasculature: Normal pulmonary vessels. Bones/joints: Intact and normally aligned. No suspicious lesion. Soft tissues: Unremarkable. IMPRESSION: Mild new right middle lobe atelectasis versus subtle infectious infiltrate. Dictated and Authenticated by: Bhupinder Painting MD. Ordering:CLARISSA Macias MD
== END ==
PROVIDERS: PCP Family Medicine; Visit Provider Nurse Practitioner Family
DX: J45.901 Unspecified asthma with (acute) exacerbation (principal); R91.8 Other nonspecific abnormal finding of lung field
CPT/HCPCS: 71046

== ENCOUNTER 2023-09-22 20:09 | Emergency (ER) | payer OTHER, SELFPAY ==
[2023-09-22 20:19] VITALS: BP 142/97; PULSE 104; RESP 22; TEMP 37.2; O2SAT 99
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
[2023-09-22] MEDS: Ondansetron O.D.T. 4 MG TABEF PO (21:09)
[2023-09-22 21:17] LABS: COVID-19 PCR Negative (Negative); Influenza A PCR Negative (Negative); Influenza B PCR Negative (Negative); RSV PCR Negative (Negative); Source Nasopharynx
[2023-09-22 22:23] VITALS: BP 136/90; PULSE 90; RESP 16; O2SAT 99
[2023-09-22] MEDS: Ondansetron O.D.T. 4 MG TABEF, 3 TABS/BTL PO (22:23)
== END 2023-09-22 22:24 | disposition home or self-care (01) ==
PROVIDERS: Emergency Provider Physician Assistant; PCP Family Medicine
DX: R07.0 Pain in throat (principal); R05.1 Acute cough; R50.9 Fever, unspecified; R52 Pain, unspecified; B34.9 Viral infection, unspecified
CPT/HCPCS: 87637; 87880; 99283

== ENCOUNTER → 2023-10-01 14:13 | Outpatient (CLI) | payer OTHER, SELFPAY ==
--- NOTE | 2023-10-01 13:05 | DI.RAD_ITS ---
Exam(s) XR CHEST 2V PA LATERAL EXAM: XR CHEST 2V PA LATERAL CLINICAL HISTORY: TIGHT CHEST, CHEST PAIN R07.89, J06.9 UPPER RESPIRATORY INFECTION. TECHNIQUE: 2D digital imaging was performed. COMPARISON: CR,XR XR CHEST 2V PA LATERAL from 09/09/2023 FINDINGS: 2 views: Heart size is normal. The mediastinum is not widened. The previously present mild infiltrate in the right middle lobe has resolved. Both lungs are present ly clear. There are no pleural effusions. IMPRESSION: No acute pulmonary findings.There has been resolution of the right lung infiltrate which was evident on 09/09/2023 chest x-ray DATA REPOSITORY: RADIATION DOSE DELIVERED:
== END ==
PROVIDERS: PCP Family Medicine; Visit Provider Nurse Practitioner Family
DX: R07.89 Other chest pain (principal); J06.9 Acute upper respiratory infection, unspecified
CPT/HCPCS: 71046

== ENCOUNTER 2023-10-08 03:37 | Outpatient (CLI) | payer OTHER, SELFPAY ==
[2023-10-08 22:06] LABS: Estradiol 288 pg/mL (See Note)
== END 2023-10-08 03:38 | disposition home or self-care (01) ==
LOC: LBO 03:38
PROVIDERS: Obstetrics & Gynecology Gynecology; PCP Family Medicine; Visit Provider Family Medicine
DX: N93.9 Abnormal uterine and vaginal bleeding, unspecified (principal)
CPT/HCPCS: 36415; 82670; 83001

== ENCOUNTER 2023-11-06 08:50 | Emergency (ER) | payer OTHER, SELFPAY ==
[2023-11-06 08:57] VITALS: BP 131/88; PULSE 84; RESP 16; TEMP 36.9; O2SAT 98
[2023-11-06 09:37] LABS: Abs Immature Grans 0.06 10^3/uL (0.0-0.06); Absolute Basophil Count 0.06 10^3/uL (0.0-0.2); Absolute Eosinophil Count 0.15 10^3/uL (0.0-0.7); Absolute Lymphocyte Count 1.96 10^3/uL (1.2-3.4); Absolute Monocyte Count 0.52 10^3/uL (0.1-0.8); Absolute Neutrophil Count 5.69 10^3/uL (1.2-6.7); Basophils % 0.7; Eosinophils % 1.8; HCT 41.6 % (36.0-46.0); HGB 13.9 g/dL (11.2-15.7); Immature Grans % 0.7; Lymphocytes % 23.2; MCH 28.2 pg (27.0-33.0); MCHC 33.4 % (32.0-36.0); MCV 84 fL (80-95); Monocytes % 6.2; Neutrophils % 67.4; Platelet Count 283 10^3/uL (130-400); RBC 4.93 10^6/uL (3.93-5.22); RDW 12.7 % (11.7-14.6); RDW-SD 39.1 fL; WBC 8.44 10^3/uL (4.4-10.8)
[2023-11-06 09:39] LABS: Bilirubin Small (Negative); Blood Negative (Negative); Clarity Clear (Clear); Glucose Negative (Negative); Ketones Trace mg/dL (Negative); Leukocyte Esterase Negative (Negative); Nitrite Negative (Negative); Specific Gravity 1.025 (1.005-1.025)
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
--- NOTE | 2023-11-06 09:45 | DI.CT_ITS ---
Exam(s) CT ABDOMEN PELVIS W EXAM: CT ABDOMEN PELVIS W CLINICAL HISTORY: Right lower quadrant pain TECHNIQUE: Imaging Protocol: Axial computed tomography images with coronal and sagittal reformatted images were created and reviewed. CONTRAST MATERIAL: Intravenous: Omnipaque 350 Contrast volume:100 mL Oral: No COMPARISON: CT CT RENAL COLIC WO from 11/28/[address] CHEST PE ABD PELVIS W from 04/10/2023 FINDINGS: ABDOMEN: Lung Bases: Normal where visualized. Liver: Normal density. No measurable mass. Portal, Superior Mesenteric, and Splenic Veins: Unremarkable. Gallbladder and Biliary Tract: No radiodense calculus or dilation. Pancreas: Normal density, no abnormal calcifications or inflammatory process. Spleen: Normal. Adrenals: No masses seen. Kidneys: Normal size, contour and axis. No radiodense stones or obstructive uropathy. There is a simp le left renal cyst. No follow-up is recommended. Abdominal Aorta: Abdominal portion non-dilated. Bowel: No obstruction or bowel wall thickening. No evidence of appendicitis. Peritoneal Cavity: No ascites, collection or mesenteric inflammatory response. No free air. Lymph Nodes: Within normal limits. Bones: Within normal limits for the patient's age. Soft Tissues: Unremarkable. PELVIS: Bladder: Symmetric distention, no gross wall thickening. Reproductive Organs: Right ovarian cysts are present. The largest measures 2.2 cm. Lymph Nodes: Within normal limits. Bones: Within normal limits for the patient's age. IMPRESSION: 1. No evidence of obstructive uropathy or appendicitis. 2. No biliary ductal dilatation or radiopaque stones. 3. Right ovarian cysts are present. The largest measures 2.2 cm. RADIATION DOSE DELIVERED: Total DLP DATA REPOSITORY: All CT scans at this facility are submitted to the National Radiology Data Registry (NRDR) Dose Index Registry (DIR) with the [employer] (ACR). RADIATION OPTIMIZATION: All CT scans at this facility use at least one of these dose optimization te chniques: automated exposure control; mA and/or kV adjustment per patient size (includes targeted exa ms where dose is matched to clinical indication); or iterative reconstruction.
[2023-11-06 09:53] LABS: ALT 35 U/L (14-59); AST 29 U/L (15-37); Alkaline Phosphatase 82 U/L (46-116); Anion Gap 11.5 mmol/L (3-11); BUN 13 mg/dL (7-18); Bilirubin, Total 0.7 mg/dL (0.2-1.0); CO2 22.5 mmol/L (21.0-32.0); CREATININE 0.9 mg/dL (0.55-1.02); Calcium 9.1 mg/dL (8.5-10.1); Chloride 106 mmol/L (98-107); Estimated GFR 86.57 (mL/min/1.73m2); Glucose 101 mg/dL (74-106); Lipase 42 U/L (16-77); Magnesium 2.1 mg/dL (1.8-2.4); Potassium 3.8 mmol/L (3.5-5.1); Sodium 140 mmol/L (136-145); Total Protein 7.7 g/dL (6.4-8.2)
[2023-11-06 09:59] VITALS: BP 109/63; PULSE 81; RESP 16; TEMP 36.4; O2SAT 98
[2023-11-06] MEDS: fentaNYL 100 MCG/2 ML VIAL 50 MCG IVP (10:04)
[2023-11-06] MEDS: Ondansetron 4 MG/2 ML VIAL IVP (10:04)
[2023-11-06] MEDS: Normal Saline 500 ML IV (10:08)
[2023-11-06 10:35] LABS: HCG Qual (Serum) Negative
[2023-11-06] MEDS: Omnipaque 350 MG/ML 100 ML BTL IJ (10:49)
[2023-11-06] MEDS: Normal Saline - Diluent 50 ML VIAL IJ (10:51)
--- NOTE | 2023-11-06 12:10 | NUR.NOTE ---
Referral faxed to Dr Jay Cooper for a follow up to [facility] Transvaginal Pelvic Ultrasound as soon as available.
[2023-11-06 12:40] VITALS: BP 96/63; PULSE 68; RESP 16; TEMP 36.6; O2SAT 100
== END 2023-11-06 12:43 | disposition home or self-care (01) ==
PROVIDERS: Registered Nurse Emergency; Emergency Provider Emergency Medicine; PCP Family Medicine
DX: R10.31 Right lower quadrant pain (principal); R11.2 Nausea with vomiting, unspecified; I10 Essential (primary) hypertension
CPT/HCPCS: 80053; 83690; 96361; 96374; 96375; 99285; 74177; 81003; 83735; 84703; 85025; 99284; J2405; J3010; J3490

== ENCOUNTER 2023-11-24 17:39 | Outpatient (REF) | payer OTHER, SELFPAY | END 2023-11-24 17:40 | disposition home or self-care (01) | LOC: LBN 17:39 | PROVIDERS: PCP Family Medicine; Visit Provider Urology | DX: N39.0 Urinary tract infection, site not specified (principal) | CPT/HCPCS: 87077; 87086; 87186 ==

== ENCOUNTER 2023-11-26 12:25 | Emergency (ER) | payer OTHER, SELFPAY ==
[2023-11-26] VITALS (23 sets, daily range): BP systolic 110–136; BP diastolic 59–93; PULSE 69–105; RESP 12–31; TEMP 36.6; O2SAT 97–100
--- NOTE | 2023-11-26 12:30 | RT.EKG_ITS ---
APPROVED REPORT Exam: Resting ECG Reason for Exam: sob Patient Location: E HR:89 bpm ECG Measurements Heart Rate 89 AXIS MA 138 P 43 QRSd 97 QRS 37 QT 353 T 19 QTc 429 Conclusion Sinus rhythm...normal P axis, V-rate 60- 99 Physician: no stemi, inverted t wave and q wave in III, these are new changes from prior ekg
--- NOTE | 2023-11-26 12:45 | DI.CT_ITS ---
Exam(s) CT CHEST PE ABD PELVIS W EXAM: CT CHEST PE ABD PELVIS W CLINICAL HISTORY: right chest pain with SOB, eval for PE. Ruq pain, pyelo, eval GB and kidney. TECHNIQUE: Imaging Protocol: Axial CT angiography was performed with multi-slice acquisition and mu lti-planar and/or 3D reconstructions. CONTRAST MATERIAL: Intravenous: Omnipaque 350 Contrast volume:100 ml COMPARISON: CT CT CHEST PE ABD PELVIS W from 04/10/[address] ABDOMEN PELVIS W from 11/06/2023 FINDINGS: CHEST: Pulmonary Arteries: No evidence of filling defects to suggest pulmonary emboli. Tracheobronchial tree: No bronchiectasis or mucus plugging. Mediastinum and [place]: No dominant adenopathy or fluid collection. Pulmonary parenchyma: No consolidation or dominant measurable mass. Pleura: No effusion. No pneumothorax. Heart: The heart is notdilated. No coronary artery calcifications are seen. Aorta: Thoracic aorta non-dilated. Bones: Unremarkable for age. Tubes, Catheters, and Lines: None. Soft tissues: Unremarkable. ABDOMEN and PELVIS: Liver: Mildly enlarged. Normal density. No suspicious measurable mass. Portal, Superior Mesenteric, and Splenic Veins: Unremarkable. Gallbladder and Biliary Tract: No radiodense calculus. No biliary dilatation. Pancreas: Normal density, no abnormal calcifications or inflammatory process. Spleen: Normal. Adrenals: No masses seen. Kidneys: Normal size, contour and axis. No radiodense stones. No obstructive uropathy. Stable small left renal cyst. No follow-up recommended. Enhancement is homogeneous. No evidence of pyelonephrit is. No suspicious masses seen. Vasculature: Abdominal aorta non-dilated. Bowel: No obstruction or bowel wall thickening. Normal quantity of stool. No evidence of appendicit is. Peritoneal Cavity: No ascites, collection or mesenteric inflammatory response. Lymph Nodes: Within normal limits. Soft Tissues: Unremarkable. Bladder: Mildly distended. Diffuse bladder wall thickening. This could indicate cystitis. Reproductive Organs: Follicle right ovary. Bones: Unremarkable for age.. IMPRESSION: 1. No evidence of pulmonary embolism or other acute abnormality in the chest.. 2. Diffuse bladder wall thickening which could indicate cystitis. Clinical correlation recommended. No findings to suggest pyelonephritis. RADIATION DOSE DELIVERED: Total DLP DATA REPOSITORY: All CT scans at this facility are submitted to the National Radiology Data Registry (NRDR) Dose Index Registry (DIR) with the [employer] (ACR). RADIATION OPTIMIZATION: All CT scans at this facility use at least one of these dose optimization te chniques: automated exposure control; mA and/or kV adjustment per patient size (includes targeted exa ms where dose is matched to clinical indication); or iterative reconstruction.
[2023-11-26] MEDS: Ketorolac 15 MG/ML VIAL IVP (12:55)
[2023-11-26] MEDS: ACETAMINOPHEN 1,000 MG/100 ML BTL 400 MG IVPB (12:55)
[2023-11-26] MEDS: Normal Saline 500 ML IV (12:55)
[2023-11-26 13:05] LABS: Abs Immature Grans 0.09 10^3/uL (0.0-0.06); Absolute Basophil Count 0.08 10^3/uL (0.0-0.2); Absolute Lymphocyte Count 2.36 10^3/uL (1.2-3.4); Absolute Monocyte Count 0.71 10^3/uL (0.1-0.8); Absolute Neutrophil Count 6.83 10^3/uL (1.2-6.7); Basophils % 0.8; Eosinophils % 1.9; HCT 41.1 % (36.0-46.0); Immature Grans % 0.9; MCH 28.7 pg (27.0-33.0); MCHC 34.1 % (32.0-36.0); MCV 84 fL (80-95); MPV 10.3 fL (8.0-11.0); Monocytes % 6.9; Neutrophils % 66.5; Platelet Count 252 10^3/uL (130-400); RBC 4.87 10^6/uL (3.93-5.22); RDW 12.5 % (11.7-14.6); RDW-SD 38.2 fL; WBC 10.27 10^3/uL (4.4-10.8)
[2023-11-26 13:06] LABS: Lactate 1.7 mmol/L (0.6-1.4)
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
[2023-11-26 13:40] LABS: ALT 35 U/L (14-59); AST 26 U/L (15-37); Albumin 3.8 g/dL (3.4-5.0); Alkaline Phosphatase 92 U/L (46-116); Anion Gap 11.1 mmol/L (3-11); BUN 10 mg/dL (7-18); Bilirubin, Total 0.4 mg/dL (0.2-1.0); CO2 23.9 mmol/L (21.0-32.0); CREATININE 0.9 mg/dL (0.55-1.02); Chloride 104 mmol/L (98-107); Estimated GFR 86.57 (mL/min/1.73m2); Glucose 109 mg/dL (74-106); Lipase 37 U/L (16-77); NT-proBNP 23 pg/mL (<300); Potassium 3.8 mmol/L (3.5-5.1); Sodium 139 mmol/L (136-145); Total Protein 7.6 g/dL (6.4-8.2)
[2023-11-26 13:41] LABS: Troponin I < 50 ng/L (< or =60)
[2023-11-26] MEDS: Omnipaque 350 MG/ML 500 ML BTL-Imaging package 100 ML IJ (14:05)
[2023-11-26 14:18] LABS: Bilirubin Negative (Negative); Blood Trace-intact (Negative); Clarity Clear (Clear); Glucose Negative (Negative); Ketones Negative (Negative); Leukocyte Esterase Negative (Negative); Nitrite Negative (Negative); Urobilinogen 0.2 mg/dL (Up to 0.2)
[2023-11-26 14:39] LABS: Bacteria Rare HPF (Negative); Crystals Negative HPF (Negative); Epithelial Cells Few HPF (Negative); Mucus Negative (Negative); RBC 0-2 HPF (0-2)
[2023-11-26 14:40] LABS: C & S Indicated? No/Sq. Contamination; Casts Negative LPF (Negative)
== END 2023-11-26 15:18 | disposition home or self-care (01) ==
PROVIDERS: Emergency Provider Student in an Organized Health Care Education/Training Program; PCP Family Medicine
DX: N39.0 Urinary tract infection, site not specified (principal); R06.02 Shortness of breath; R10.11 Right upper quadrant pain; Z98.51 Tubal ligation status; J45.909 Unspecified asthma, uncomplicated; Z79.899 Other long term (current) drug therapy; M54.2 Cervicalgia; G89.29 Other chronic pain; Z91.040 Latex allergy status
CPT/HCPCS: 71275; 74177; 80053; 81025; 83690; 93005; 96365; 96375; 99285; 81003; 81015; 83605; 83880; 84484; 85025; 93010; 99284; J0131; J1885

== ENCOUNTER → 2023-12-03 01:41 | Outpatient (CLI) | payer OTHER, SELFPAY ==
--- NOTE | 2023-12-03 | DI.NM_ITS ---
Exam(s) NM HEPATOBILIARY CCK GRP EXAM: NM HEPATOBILIARY CCK GRP CLINICAL HISTORY: RUQ AND LUQ PAIN,R10.11. TECHNIQUE: Injected dose: 4.6 mCi Tc-99 mebrofenin Initial dynamic images: 60 minutes Post-Gallbladder fillin.6 mcg CCK was administered according to protocol. Addition images: 20 minute dynamic during CCK administration. COMPARISON: CT CT CHEST PE ABD PELVIS W from 11/26/2023 US US ABDOMEN LIMITED from 11/27/2023 FINDINGS: Normal hepatic transit time. Prompt excretion into the small bowel. Prompt excretion into the gallbladder. The gallbladder ejection fraction is 91 percent. IMPRESSION: 1. Normal examination with a normal ejection fraction. SN guidelines: Gallbladder visualization should be present by 3 hours. Delayed [id number] jay sit beyond 60 min raises the suspicion for partial common bile duct (CBD) obstruction. Gallbladder ejection fraction <35% has a good correlation with acalculous disease (i.e., chronic acal culous cholecystitis, cystic duct syndrome, sphincter of Oddi disease).
== END ==
PROVIDERS: PCP Family Medicine; Visit Provider Family Medicine
DX: R10.11 Right upper quadrant pain (principal)
CPT/HCPCS: 78227

== ENCOUNTER 2023-12-04 21:32 | Outpatient (REF) | payer OTHER, SELFPAY ==
[2023-12-04 16:43] LABS: Bilirubin Negative (Negative); Blood Negative (Negative); Clarity Sl Cloudy (Clear); Glucose Negative (Negative); Ketones Negative (Negative); Leukocyte Esterase Negative (Negative); Nitrite Negative (Negative); Specific Gravity 1.015 (1.005-1.025); Urobilinogen 0.2 mg/dL (Up to 0.2); pH 5.5 (5-8)
== END 2023-12-04 21:33 | disposition home or self-care (01) ==
LOC: LBN 21:32
PROVIDERS: PCP Family Medicine; Visit Provider Urology
DX: N39.0 Urinary tract infection, site not specified; B96.29 Other Escherichia coli [E. coli] as the cause of diseases classified elsewhere
CPT/HCPCS: 81003; 87086

== ENCOUNTER 2023-12-08 13:20 | Emergency (ER) | payer OTHER, SELFPAY ==
[2023-12-08 13:58] VITALS: BP 139/92; PULSE 94; RESP 16; TEMP 36.9; O2SAT 99
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
[2023-12-08 15:41] VITALS: BP 113/89; PULSE 91; O2SAT 100
[2023-12-08 16:02] LABS: Lactate 1.1 mmol/L (0.6-1.4)
[2023-12-08 16:20] LABS: ALT 28 U/L (14-59); AST 17 U/L (15-37); Albumin 4.2 g/dL (3.4-5.0); Alkaline Phosphatase 91 U/L (46-116); Anion Gap 10.3 mmol/L (3-11); BUN 11 mg/dL (7-18); Bilirubin, Direct 0.1 mg/dL (0.0-0.2); Bilirubin, Total 0.4 mg/dL (0.2-1.0); C-Reactive Protein < 0.50 mg/dL (<or=0.5); CO2 25.7 mmol/L (21.0-32.0); CREATININE 0.8 mg/dL (0.55-1.02); Calcium 9.2 mg/dL (8.5-10.1); Chloride 106 mmol/L (98-107); Creatine Kinase 47 U/L (26-192); Estimated GFR 99.71 (mL/min/1.73m2); Glucose 83 mg/dL (74-106); Lipase 42 U/L (16-77); Magnesium 2.1 mg/dL (1.8-2.4); Potassium 4.1 mmol/L (3.5-5.1); Sodium 142 mmol/L (136-145); Total Protein 8.2 g/dL (6.4-8.2)
[2023-12-08 16:23] LABS: Troponin I < 50 ng/L (< or =60)
[2023-12-08] MEDS: Normal Saline 1,000 ML 1000 ML IV (16:30)
[2023-12-08 16:35] LABS: Bilirubin Negative (Negative); Blood Negative (Negative); Clarity Clear (Clear); Glucose Negative (Negative); Ketones Negative (Negative); Leukocyte Esterase Negative (Negative); Nitrite Negative (Negative); Specific Gravity >= 1.030 (1.005-1.025); Urobilinogen 0.2 mg/dL (Up to 0.2); pH 5.5 (5-8)
[2023-12-08 16:36] LABS: Procalcitonin < 0.1 ng/mL
--- NOTE | 2023-12-08 23:07 | NUR.NOTE ---
Referral faxed to [facility] to f/u in a week for right quadrant pain.Nursing Note:
== END 2023-12-08 17:37 | disposition home or self-care (01) ==
PROVIDERS: Emergency Provider Physician Assistant; PCP Family Medicine
DX: R10.11 Right upper quadrant pain (principal); R07.89 Other chest pain; R11.0 Nausea
CPT/HCPCS: 36415; 80053; 80076; 82550; 83690; 84145; 96360; 99284; 81003; 83605; 83735; 84484; 86140; 99283

== ENCOUNTER → 2023-12-16 02:57 | Outpatient (CLI) | payer OTHER, SELFPAY ==
--- NOTE | 2023-12-16 | DI.MRI_ITS ---
Exam(s) MR ABDOMEN WO/W EXAM: MR ABDOMEN WO/W CLINICAL HISTORY: R10.11 RUQ Pain,Finding on US in left lobe of liver TECHNIQUE: Multiplanar multisequence MRI of the Abdomen was performed. CONTRAST MATERIAL: IV Contrast: 20 mL of Dotarem contrast administered. COMPARISON: CT CT CHEST PE ABD PELVIS W from 11/26/2023 US US ABDOMEN LIMITED from 12/12/2023 FINDINGS: Liver: There is diffuse fatty infiltration of the liver noted. There is a 1.5 cm area of increased s ignal intensity in the left lobe of the liver on the out of phase images of the liver (series 7001, i mage 29). This area shows normal signal on the T2 weighted images. It also shows normal signal on t he postcontrast images. The finding is most consistent with focal fatty sparing. Similar areas are also seen around the gallbladder fossa. Pancreas: Unremarkable. There is no evidence of a pancreatic mass or peripancreatic fluid collection. Gallbladder and Bile Ducts: There is no biliary ductal dilatation. No cholelithiasis. Adrenals: Unremarkable. Kidneys: There is a 1.2 cm simple cyst in the left kidney superior pole. No follow-up is recommended . There is a tiny 2-3 mm cyst in the right kidney. No follow-up is recommended. No solid renal mas s or evidence of obstruction. Spleen: Unremarkable. Bowel: There is no evidence of bowel obstruction or bowel wall thickening. The stomach is incomplete ly distended limiting evaluation. Aorta: Unremarkable. Soft Tissues: Unremarkable. The abdominal wall musculature appears unremarkable. Bone: Unremarkable. Lymph Nodes: Unremarkable. IMPRESSION: 1. 1.5 cm area in the left lobe of the liver most suggestive of focal fatty sparing. This would appea r to correspond with the sonographic finding from 12/12/2023. 2. No evidence of a hepatic mass or enhancing lesion. DATA REPOSITORY:
[2023-12-16] MEDS: Normal Saline - Diluent 50 ML VIAL 25 ML IJ (11:30)
[2023-12-16] MEDS: Gadoterate meglumine 20 ML VIAL IVP (11:31)
== END ==
PROVIDERS: PCP Student in an Organized Health Care Education/Training Program; Visit Provider Student in an Organized Health Care Education/Training Program
DX: R10.11 Right upper quadrant pain (principal)
CPT/HCPCS: 74183

== ENCOUNTER 2023-12-30 05:26 | Outpatient (CLI) | payer OTHER, SELFPAY ==
--- NOTE | 2023-12-30 14:06 | W.NUTRFU ---
Date of service: 12/30/23 Time of Service: 13:00 Nutrition Note NOTE: Gladys comes in for employee wellness nutrition visit after referred from her provider for recent dx of COLE with indication to provide MNT for this as well as weight management. Gladys's PMH nutritionally significant for recent steatosis and hx of PCOS and obesity (current BMI >40kg/m2) She has a history of skipping breakfast, having radha donuts coffee drinks with sugar, higher refined carb diet that is lower in fiber. She does not engage in structured or scheduled exercise. We discussed the importance of getting adequate and good quality sleep and managing stress in a healthy way and exercising as part of her approach to address her current concerns. Did not spend much time on these as nutrition is our focus today. We discussed the following goals: *Start milk thistle immediately and share this with providers as it may affect the concentrations of medications that are metabolized by the liver - suggested following directions for supplement that is standardized to 80% silymarin. *Consider 150g carbs her goal (reviewed and educated that this is TOTAL carbs and a good 25grams of this should be coming from fiber and no more than 25g of this should be coming from added sugar (less is better but she has some work to do to reach this initial goal of <25g/day). Emphasized no fructose/HFCS as sweetener and no juice - whole fruit ok but consider about 4 servings per day adequate and aim for lower fructose choices (gave list) like berries. reviewed refined vs high-fiber complex carb choices *transition to black coffee (little plant milk ok) and consume anti inflammatory drinks like unsweetened green tea (no green tea extract though), josie tea, tumeric tea, hibiscus tea, plant milks, lots of water *work on menu planning so breakfast is eaten regularly and avoid eating after dinner. *decrease animal meats to help reduce saturated fat and increase fiber and plant intake by trying beans,lentils, whole soy, nuts an seeds to replace We looked at some menu planning tips and gave some guidance on this. Gladys took my card with contact info should she need any assistance with menu planning more, needs questions answered or would like any follow up visits Time Spent in Nutritional Counseling and Treatment: 45 minutes
== END 2023-12-30 05:27 | disposition home or self-care (01) ==
LOC: DS 05:26
PROVIDERS: PCP Student in an Organized Health Care Education/Training Program; Visit Provider Dietitian, Registered
DX: K75.81 Nonalcoholic steatohepatitis (NASH) (principal)
CPT/HCPCS: 00123; 97802

== ENCOUNTER 2024-01-28 16:21 | Outpatient (REF) | payer OTHER, SELFPAY ==
--- NOTE | 2024-01-28 16:10 | PAPFT_PTH ---
PATIENT: Gladys Lopez LOC: [facility] U#:[id number] AGE/SX: 33/F ROOM: RE01/28/[address]: Gris Burr : 1990 BED: DIS: 01/28/2024 SPEC #: [id number] RECD: 01/28/24 17:31 STATUS: AMERICALachelle REBrenda #: [id number] VICKIE: 01/28/24 16:[address]: Gris Burr DEPT: [facility] Cytology RECD BY: Yolanda Hernandez ENTERED: 01/28/24 17:32 SP TYPE: PAPFT OTHR DR: Landen Mata Tissues: 1 - CX/ENDOCX FOR PAP SMEARS Procedures: PAP THIN PREP/UVM Screening HPV DNA PROBE Comments: [id number] (HPV 16 & 18/45)
[2024-01-30 13:35] LABS: Chlamydia Result Negative (Negative); GC Result Negative (Negative)
== END 2024-01-28 16:22 | disposition home or self-care (01) ==
LOC: LBN 16:21
PROVIDERS: PCP Student in an Organized Health Care Education/Training Program; Visit Provider Obstetrics & Gynecology Gynecology
DX: N76.0 Acute vaginitis (principal); Z12.4 Encounter for screening for malignant neoplasm of cervix
CPT/HCPCS: 87491; 87591; 88142; 87480; 87510; 87624; 87660

== ENCOUNTER 2024-04-14 20:23 | Emergency (ER) | payer OTHER, SELFPAY ==
[2024-04-14] VITALS (19 sets, daily range): BP systolic 106–144; BP diastolic 55–85; PULSE 99–120; RESP 18–39; TEMP 36.6; O2SAT 98–100
--- OUTSIDE RECORDS SUMMARY | 2024-04-14 20:35 | XMS_ITS | Continuity of Care Document ---
Author Organization [facility], [facility] Address [address] [place] [address] Care Team Providers Care Woodwind Reeds Cutter Name Role Phone [email or web address] Primary Care Provider [facility] OTHER [phone] Assessment No assessment recorded. Plan of Treatment Reminders Order Date Submit Date Provider Last Modified By Organization Details Last Modified Time Details Appointments None recorded. Lab influenza virus A + B + SARS-CoV-2 (COVID19) Ag panel, rapid IA, upper respiratory specimen 2023 024 [email or web address] [facility], [address], [place], [address], 4 15:41:12 Referral None recorded. Procedures None recorded. Surgeries None recorded. Imaging None recorded. Medication Orders prednisone 20 mg tablet 2023 024 [place] [id number] [facility], [address] [place], [address], 4 15:41:12 albuterol sulfate 2.5 mg/3 mL (0.083 %) solution for nebulizatio n 2023 024 [email or web address] [facility], [address] [place], [address], 4 15:41:12 Patient TargetsNo targets recorded. Patient Instructions Encounter Date Encounter Id Patient Instructions Last Modified By Organization Details Last Modified Time 04/13/2024 [id number] If not obviously trending towards getting better in 1-week, let me know and I can order chest xray and/or antibiotics. [email or web address] Not available 04/13/2024 11:17:12 Reason for Referral General Surgeon Referral for Right upper quadrant pain Pt, 33-F, family hx. of multiple women, mom/sister's w/cholecystectomy, having recurrent stabbing, right side upper abdominal pain with nausea and some instance of vomiting. Has been to the ED twice for this. She has had multple imaging modalities as a result including 11/27/2023 US which showed 3. 1.3 x 1.8 x 1.9 cm area of decreased echogenicity in the left lobe of the liver. In light of thefatty infiltration, this may represent of focal fatty sparing. There is no correlateseen on the CTscan from the day prior. An MRI of the liver should be considered for furtherevaluation. Pt. had Nuclear Uptake scan of gall bladder which showed normal transit time 91% EF of contents, pt. continues to have symptoms. I am ordering the rec'd MRI of liver today, but requesting surgical consult for after imaging complete. Refilling Zofran for pt. nausea and increasing PPI/omeprazole to 40 mg qday. Referring Physician: Landen Mata, Family Medicine, Encounter Date: 12/05/2023 Results Created Date Observation Date Name Description Value Unit Range Abnormal Flag Note LastModifiedBy Organization Detail LastModifiedTime 04/13/20 24 04/13/2024 influ elizabeth virus A + B + SARS- CoV-2 (COVI D19) Ag panel , rapid IA, upper respi rator y speci men Influenza A negati ve Not Available [facility] [address], [place], [address], 04/13/2024 10:56:42 04/13/20 24 04/13/2024 influ elizabeth virus A + B + SARS- CoV-2 (COVI D19) Ag panel , rapid IA, upper respi rator y speci men Influenza B negati ve Not Available [facility] [address], [place], [address], 04/13/2024 10:56:42 04/13/20 24 04/13/2024 influ eilzabeth virus A + B + SARS- CoV-2 (COVI D19) Ag panel , rapid IA, upper respi rator y speci men SARS-COV-2 negati ve Not Available [facility] [address], [place], [address], 04/13/2024 10:56:42 04/13/20 24 04/13/2024 influ elizabeth virus A + B + SARS- CoV-2 (COVI D19) Ag panel , rapid IA, upper respi rator y speci men Sample sent for PCR confirmation No Not Available [facility] [address], [place], [address], 04/13/2024 10:56:42 Result Notes None recorded. Problems Name Problem SNOMED Code Status Onset Date Resolution Date Notes Provider Name and Address Organization Details Recorded Time Streptoc occal sore throat 03119242 Completed 201806/12/2019 Problem Code: J02.0; Problem Code Type: ICD-10; Not Available [facility] 3 05:41:16 At risk - finding [id number] Completed 201910/29/2019 Problem Code: Z91.89; Problem Code Type: ICD-10; Not Available [facility] 3 05:41:16 Polycyst ic ovary syndrome 326130431 Active 2019 BROOKE green, [facility]. 4 13:59:34 Acne 77325855 Active 2019 BROOKE green, [facility]. 4 13:57:54 Skin sensatio n disturba nce 12784281 Active 2019 BROOKE green, [facility]. 4 13:59:50 Iron deficien cy 53575024 Active 2019 BROOKE green, [facility]. 4 13:58:58 Disorder of pericard [facility] 86602888 Completed 201907/15/2023 Problem Code: I31.9; Problem Code Type: ICD-10; REJI green, [facility] 3 11:30:43 Headache 35948633 Completed 202010/20/2020 09/08/19 21 - Comments only - Moris Stapleton PA-C - Due to change in quality and severity of headache recomend ED evaluati on and treatmen t. EMS contacte d for transpor t. IV started and pt given Zofran for nausea. VSS. No change in neuro or mental status. Problem Code: R51.9; Problem Code Type: ICD-10; Not Available [facility] 3 05:41:17 Left side sciatica 96642389551 9104 Active 2021 BROOKE green, [facility]. 4 13:59:02 Senile hyperker atosis 953720366 Active 2022 BROOKE green, [facility] 4 13:59:44 Obesity 266659060 Active 2022 BROOKE green, [facility]. 4 13:59:27 [facility] hyperten florian 93044630 Active 2022 BROOKE green, [facility]. 4 13:58:19 Gastroes ophageal reflux disease without esophagi tis 335445245 Active 2022 BROOKE green, [facility] 4 13:58:25 Diarrhea 16911098 Active 2022 BROOKE green, [facility]. 4 13:58:09 Endometr iosis (clinica l) 202528048 Active 2018 BROOKE green, [facility]. 4 13:58:14 Anxiety disorder 167675117 Active 2018 BROOKE green, [facility]. 4 13:59:59 Migraine with aura 7388675 Active 2018 BROOKE green, [facility]. 4 13:59:06 Adult health examinat ion Active 2018 BROOKE green, [facility] 4 13:58:00 Acute conjunct ivitis 22838559 Completed 201911/30/2021 Problem Code: H10.30; Problem Code Type: ICD-10; Not Available [facility] 3 05:41:31 Venereal disease screenin g Completed 201803/23/2019 Problem Code: Z11.3; Problem Code Type: ICD-10; Not Available [facility] 3 05:41:32 Adjustme nt disorder 15166816 Completed 201912/23/2019 Problem Code: F43.20; Problem Code Type: ICD-10; Not Available [facility] 3 05:41:32 Dysfunct ional uterine bleeding Completed 201905/07/2023 Not Available [facility] 3 05:41:32 Acute bronchit is 07175759 Completed 202104/09/2022 Problem Code: J20.8; Problem Code Type: ICD-10; Not Available [facility] 3 05:41:33 Otitis media of right ear 08382779908 09925 Completed 201805/28/2019 Problem Code: H66.91; Problem Code Type: ICD-10; Not Available [facility] 3 05:41:33 Major depressi on, single episode 66909844 Completed 201805/07/2023 Problem Code: F32.9; Problem Code Type: ICD-10; Not Available [facility] 3 05:41:33 Chest pain 56300811 Completed 202104/09/2022 Problem Code: R07.89; Problem Code Type: ICD-10; Not Available [facility] 3 05:41:34 Acute pharyngi tis 457626816 Completed 201805/28/2019 Problem Code: J02.9; Problem Code Type: ICD-10; Not Available [facility] 3 05:41:34 Elevated blood-pr essure reading without diagnosi s of hyperten florian 834666873 Completed 201908/27/2022 Problem Code: R03.0; Problem Code Type: ICD-10; Not Available [facility] 3 05:41:34 Exacerba tion of moderate persiste nt asthma 442953619 Completed 201911/16/2019 Problem Code: J45.41; Problem Code Type: ICD-10; Not Available [facility] 3 05:41:35 History of gynecolo gical disorder 091778991 Completed 201911/30/2021 Problem Code: Z87.42; Problem Code Type: ICD-10; Not Available [facility] 3 05:41:35 Left upper quadrant pain 674556870 Completed 202108/27/2022 Problem Code: R10.12; Problem Code Type: ICD-10; Not Available [facility] 3 05:41:36 Pneumoni a 844085376 Completed 202011/30/2021 Problem Code: J18.9; Problem Code Type: ICD-10; Not Available [facility] 3 05:41:36 Kidney stone 90081365 Completed 201803/23/2019 Problem Code: N20.0; Problem Code Type: ICD-10; Not Available [facility] 3 05:41:37 Acute sinusiti s 55499257 Completed 201812/02/2018 Problem Code: J01.90; Problem Code Type: ICD-10; Not Available [facility] 3 05:41:38 Contrace ption care educatio n Completed 201812/23/2019 Problem Code: Z30.09; Problem Code Type: ICD-10; Not Available [facility] 3 05:41:39 Muscle pain 98251001 Completed 201911/30/2021 Problem Code: M79.10; Problem Code Type: ICD-10; Not Available [facility] 3 05:41:40 Abnormal cytology findings 992631194 Completed 201805/07/2023 Problem Code: R85.619; Problem Code Type: ICD-10; Not Available [facility] 3 05:41:41 Counseli ng Completed 201812/02/2018 Problem Code: Z71.89; Problem Code Type: ICD-10; Not Available [facility] 3 05:41:42 Spasm 88458642 Completed 201911/30/2021 Problem Code: R25.2; Problem Code Type: ICD-10; Not Available [facility] 3 05:41:43 Acute sinusiti s 47972448 Completed 202209/23/2022 Problem Code: J01.90; Problem Code Type: ICD-10; Not Available [facility] 3 05:41:43 Acute vaginiti s 74123939 Completed 201911/16/2019 Problem Code: N76.0; Problem Code Type: ICD-10; Not Available [facility] 3 05:41:43 COVID-19 357787040 Completed 202210/25/2022 Problem Code: U07.1; Problem Code Type: ICD-10; Not Available [facility] 3 05:41:43 Anemia in mother complica ting pregnanc y, childbir th AND/OR puerperi 76580711 Completed 201803/23/2019 Problem Code: O99.019; Problem Code Type: ICD-10; Not Available [facility] 3 05:41:44 Streptoc occal sore throat 45704887 Completed 201911/16/2019 Problem Code: J02.0; Problem Code Type: ICD-10; Not Available [facility] 3 05:41:44 Acute upper respirat ory infectio n 49801160 Completed 202103/15/2022 Problem Code: J06.9; Problem Code Type: ICD-10; [facility] 4 16:22:32 Non-alco holic fatty liver 255509125 Active 2022 [facility] 4 13:56:44 Incomple te emptying of urinary bladder 825935255 Active 2022 [facility] 4 13:56:44 Hypomagn esemia 017185271 Active 2022 BROOKEBirdie GUTIÉRREZ [facility] 4 13:58:53 Right upper quadrant pain 865325307 Completed 202206/13/2023 Problem Code: R10.11; Problem Code Type: ICD-10; [facility] 4 13:59:39 Nausea and vomiting 73736339 Completed 202206/13/2023 Problem Code: R11.2; Problem Code Type: ICD-10; [facility] 4 13:59:21 Tubuloin terstiti al nephriti s 641194212 Completed 202205/30/2023 Problem Code: N12; Problem Code Type: ICD-10; Not Available [facility] 4 05:36:44 Intermit tent asthma 552554038 Active 2023 [facility] 4 13:56:44 Communit y acquired pneumoni a 356135041 Active 2023 BROOKEBirdie GUTIÉRREZ [facility] 4 13:56:44 Recurren t major depressi on 86708868 Active 2023 BROOKEBirdie GUTIÉRREZ [facility] 4 13:56:45 Abdomina l pain 81787612 Active 2023 BROOKEBirdie GUTIÉRREZ [facility] 4 13:56:44 Loose stool 001791608 Active 2023 BROOKE green, [facility] 4 13:56:44 Right upper quadrant pain 239865255 Active 2023 JOY NEVES MD [address], [place], [address] , [facility] 4 18:20:12 Right upper quadrant pain 083566353 Active 2023 BROOKE green, [facility] 13:59:39 Nausea and vomiting 74554996 Active 2023 BROOEK green, [facility] 13:59:21 Fear of medical treatmen t 690930463 Active 2023 [facility] 13:56:45 Chronic pain 59194833 Active 2023 BROOKE green, [facility] 4 13:56:45 Abnormal cervical Papanico laou smear 110282207 Active 2023 BROOKE green, [facility] 13:57:42 History of depressi on 423792786 Active 2023 BROOKE green, [facility] 13:58:45 Cough 32940745 Active 2023 MANJU CASTELLANOS PA-C [address], [place], [address] , [facility] 18:25:58 Exacerba tion of intermit tent asthma 250606122 Active 2023 AZRA BAILEY [address], [place], [address] , [facility] 11:00:45 Problem Notes None recorded. Medical Equipment None Reported. Allergies Allergen ID Allergen Name Allergen Category Reaction Reaction Severity Criticality Documentation Date Start Date Code Code System Note Provider Name and Address Organization Details Recorded Time 54248 latex environme nt,medica tion Not available Not available Not available 06/20/20232018 57340 91 RxNorm STACEY Archibald, [facility] 4 17:21:39 84542 nickel environme nt,medica tion Not available Not available Not available 06/20/20232018 97464 29 RxNorm Not Available [facility] 3 16:18:57 28329 tramadol hydrochlo ride medicatio n dizziness moderate Not available 06/20/20232018 38414 RxNorm Dizzi ness Not Available [facility] 3 16:18:57 23501 adhesive tape environme nt,medica tion Not available Not available Not available 06/20/20232018 Not Available [facility] 3 16:18:57 77561 morphine medicatio n other mild Not available 12/24/2023 7052 RxNorm aggre ssion [facility] RN null, [facility] 4 17:21:30 Medications Name Sig Start Date Stop Date Status Note LastModified by Organization Details LastModified Time cyclobenz aprine 10 mg tablet Take 1 tab by mouth at bedtime as needed 10/21 completed Not Available Not Available Not Available amoxicill in 500 mg capsule Take 1 cap by mouth three times daily x 7 days 04/20 completed Not Available Not Available Not Available medroxypr ogesteron e 10 mg tablet Take 1 tablet by mouth once a day for two weeks, may repeat every 3 months if no period 10/[address] Burr Not Available Not Available Not Available Miralax 17 gram/dose oral powder Take 1 scoop by mouth once a day as needed 10/19 completed Not Available Not Available Not Available ipratropi um 0.5 mg-albute rol 3 mg (2.5 mg base)/3 mL nebulizat ion soln Inhale 3 mL every 4-6 hours by nebuliza tion route as needed. 10/19 completed Not Available Not Available Not Available Ciloxan 0.3 % eye ointment 0.5 inch ribbon in conjunct ival sac of affected eye TID x 2 days, then BID for 5 days 09/08 completed Not Available Not Available Not Available albuterol sulfate 2.5 mg/3 mL (0.083 %) solution for nebulizat ion Inhale 3 mL 3 times a day by nebuliza tion route. 2023 active Not Available Not Available Not Avai lable cefpodoxi me 200 mg tablet 07/15 completed Not Available Not Available Not Available azithromy sergo 250 mg tablet Take 2 tablet by mouth today, then take 1 tablet by mouth daily for the next 4 days. 03/20 completed Not Available Not Available Not Available ibuprofen 800 mg tablet Take 1 tab by mouth three times daily as needed 2018 active Not Available Not Available Not Avai lable Retin-A 0.1 % topical cream Apply daily to face at bedtime 2018 active Not Available Not Available Not Avai lable ondansetr on HCl 8 mg tablet Take 1 tablet twice a day by oral route. active Not Available Not Available No t Available phenazopy ridine 200 mg tablet 07/15 completed Not Available Not Available Not Available sumatript an 25 mg tablet take 1 tab at onset of headache ; if no relief may repeat 1 tab after at least 2 hrs; max = 4tabs/24 hr 2022 active Not Available Not Available Not Avai lable prednison e 20 mg tablet Take 2 and 1/2 tablet by mouth for 2 days then decrease to 2 tablets daily thereaft er till gone. Take in morning. 2023 active Not Available Not Available Not Avai lable Diflucan 150 mg tablet Take 1 tablet by mouth single dose as needed for yeast infectio n. May repeat in 72 hours if symptoms persist. 05/30 completed Medicati onName: 'Difluca n 150 mg tablet'; Not Available Not Available Not Available penicilli n V potassium 500 mg tablet TAKE ONE TABLET BY MOUTH FOUR TIMES A DAY UNTIL GONE 07/15 completed Not Available Not Available Not Available topiramat e 25 mg tablet Take 1 tablet by mouth at bedtime to prevent migraine 01/01 completed Not Available Not Available Not Available metronida zole 500 mg tablet 04/13 completed Not Available Not Available Not Available omeprazol e 40 mg capsule,d elayed release Take 1 capsule by mouth once a day active Not Available Not Available No t Available oxycodone -acetamin ophen 5 mg-325 mg tablet TAKE ONE TABLET BY MOUTH EVERY 6 HOURS NEEDED FOR PAIN 04/13 completed Not Available Not Available Not Available propranol ol 10 mg tablet Take 1 tablet by mouth once a day 09/15 completed Not Available Not Available Not Available alprazola m 0.25 mg tablet Take 2 tablets 90 minutes prior to MRI. If inadequa te response 30 mins from procedur e, you may take the addition al 3rd tablet. Do not drive the rest of the day after taking this med. active Not Available Not Available No t Available clindamyc in 1 % topical gel Apply topicall y to affected area twice daily 10/21 completed Not Available Not Available Not Available dicyclomi ne 20 mg tablet 1 tablet by mouth four times a day As needed for abdomina l pain 04/15 completed Not Available Not Available Not Available amitripty line 10 mg tablet Take 0.5 tablet by mouth every night 03/01 completed Not Available Not Available Not Available benzonata te 100 mg capsule Take 1 capsule by mouth three times a day as needed FOR COUGH 10/19 completed Not Available Not Available Not Available cephalexi n 500 mg capsule TAKE 1 CAPSULE BY MOUTH THREE TIMES A DAY 04/13 completed Not Available Not Available Not Available Ocuflox 0.3 % eye drops apply 1-2 drops 4 times a day for 5-7 days 05/22 completed Not Available Not Available Not Available naproxen sodium 550 mg tablet Take 1 tablet by mouth twice a day as needed for pain 12/03 completed Not Available Not Available Not Available oseltamiv ir 75 mg capsule Take 1 capsule every day by oral route for 10 days. 10/19 completed Not Available Not Available Not Available triamcino lone acetonide 0.1 % topical ointment Apply to skin twice a day as needed 04/02 completed Not Available Not Available Not Available prednison e 50 mg tablet Take 1 tablet by mouth once a day start today 03/18 completed Not Available Not Available Not Available omeprazol e 20 mg capsule,d elayed release Take 1 capsule twice a day by oral route. 12/04 completed Not Available Not Available Not Available Tylenol 325 mg tablet one tab by mouth every 6 hours as needed 2018 active Not Available Not Available Not Avai lable cephalexi n 500 mg tablet 1 tablet by mouth four times a day 05/20 completed Not Available Not Available Not Available monteluka st 10 mg tablet TAKE ONE TABLET BY MOUTH EVERY EVENING active Not Available Not Available No t Available hydroxyzi ne HCl 25 mg tablet Take 1-2 tablet by mouth three times a day as needed 03/01 completed Not Available Not Available Not Available gabapenti n 100 mg capsule Take 1 cap PO TID for 3 days, then 2 cap PO TID thereaft er. Do not take while taking oxycodon e. active Not Available Not Available No t Available nystatin 100,000 unit/gram topical powder APPLY TO AFFECTED AREA(S) TWO TIMES A DAY 10/19 completed Not Available Not Available Not Available lorazepam 1 mg tablet 08/27 completed [facility] Not Available Not Available Not Available levofloxa sergo 750 mg tablet Take 1 tablet by mouth once a day stop amox/cla vulonate 03/06 completed Not Available Not Available Not Available albuterol sulfate HFA 90 mcg/actua tion aerosol inhaler Inhale 1-2 puff using inhaler every four to six hours as needed active Not Available Not Available No t Available Cipro 250 mg tablet Take 1 tablet every 12 hours by oral route for 14 days. 04/13 completed 11/24/23 from urology Not Available Not Available Not Available oxybutyni n chloride 5 mg tablet Take 1 tab by mouth twice daily. 10/19 completed Not Available Not Available Not Available ondansetr on 4 mg disintegr ating tablet 1 tablet on tongue every eight hours As needed for nausea active Not Available Not Available No t Available fluticaso ne propionat e 50 mcg/actua tion nasal spray,jonathan pension 1 spray each nostril daily 10/21 completed Not Available Not Available Not Available sertralin e 50 mg tablet Take 1 tablet by mouth daily active Not Available Not Available No t Available naproxen 500 mg tablet Take 1 tablet by mouth twice a day as needed for pain active Not Available Not Available No t Available spironola ctone 50 mg tablet Take 1-2 tablet by mouth twice a day Take 2 tabs by mouth in am and one tab at night active Not Available Not Available No t Available amoxicill in 875 mg-potass ium clavulana te 125 mg tablet Take 1 tablet by mouth twice a day if ear pain or sinus pain not improvin g or getting worse 10/19 completed Not Available Not Available Not Available Sprintec (28) 0.25 mg-35 mcg tablet Take 1 tab by mouth daily 2018 active Not Available Not Available Not Avai lable psyllium husk 0.52 gram capsule Take 1-2 capsule by mouth once a day with a glass of water 2021 active Not Available Not Available Not Avai lable aripipraz ole 5 mg tablet TAKE ONE TABLET BY MOUTH EVERY DAY active Not Available Not Available No t Available topiramat e 50 mg tablet TAKE ONE TABLET BY MOUTH AT BEDTIME TO PREVENT MIGRAINE active Not Available Not Available No t Available nitrofura ntoin monohydra te/macroc rystals 100 mg capsule 07/15 completed Not Available Not Available Not Available Cymbalta 20 mg capsule,d elayed release 1 tablet by mouth once a day 06/06 completed Not Available Not Available Not Available Seasoniqu e 0.15 mg-30 mcg (84)/10 mcg(7) tablets,3 month dose pack Take 1 tablet by mouth once a day 01/01 completed Not Available Not Available Not Available Abilify 2 mg tablet 08/27 completed [facility] Not Available Not Available Not Available ferrous gluconate 324 mg (38 mg iron) tablet Take one tablet PO daily. 09/08 completed Not Available Not Available Not Available Symbicort 160 mcg-4.5 mcg/actua tion HFA aerosol inhaler Inhale 2 puffs twice a day by inhalati on route as needed. active Not Available Not Available No t Available oxycodone 10 mg tablet 04/13 completed Not Available Not Available Not Available benzonata te 150 mg capsule Take 1 capsule 3 times a day by oral route as needed. 10/19 completed Not Available Not Available Not Available Tri-Lo-Es tarylla 0.18 mg/0.215 mg/0.25 mg-25 mcg tablet TAKE ONE TABLET BY MOUTH EVERY DAY 04/02 completed Not Available Not Available Not Available AirDuo RespiClic k 113 mcg-14 mcg/actua tion breath activated Inhale 1 puff twice a day by inhalati on route. active Not Available Not Available No t Available Paxlovid 300 mg (150 mg x 2)-100 mg tablets in a dose pack Take 3 tablet by mouth twice a day 09/01 completed Not Available Not Available Not Available Ozempic 0.25 mg or 0.5 mg (2 mg/3 mL) subcutane ous pen injector Inject 1/4 mg subcutan eously once a week for 1 month, followed by 0.5 mg once per week 07/15 completed Not Available Not Available Not Available Vitals Date Recorded Body height Body mass index (BMI) Body weight Body temperature Oxygen saturation Oxygen saturation in Arterial blood by Pulse oximetry Heart rate Systolic blood pressure Diastolic blood pressure Provider Name and Address Organization Details Last Updated DateTime 4 160.02 cm 41.8 kg/m2 242063. 52 g 97.3 [degF] 99 % 99 % 82 /min 124 mm[Hg] 68 mm[Hg] ROYER MORTON MA [facility] 10:37:54 Social History Question Answer Notes LastModified by Organizat ion Details LastModified Time Tobacco Smoking Status Never Smoker Kyleigh Correa MA null, [facility] 09/16/2023 18:35:57 What Was The Date Of Your Most Recent Tobacco Screening? 12/24/2023 Information not available 12/24/2023 Has Tobacco Cessation Counseling Been Provided? Yes [email or web address] Information not available 09/16/2023 On What Date Was Tobacco Cessation Counseling Provided? 12/24/2023 Information not available 12/24/2023 Do You Or Have You Ever Used Any Other Forms Of Tobacco Or Nicotine? No Information not available 11/28/2023 Sex: Female Functional Status None recorded. Mental Status None recorded. Family History Nothing Reported Notes:*Problem: MGM Aortic A neurysm maternal uncles with brain and aortic aneurysms Sister HTN Mother HTN, CHF in her 50s MGM CAD in 30s, MGF CAD in 40s Medical History No medical history recorded. Gynecological HistoryNo gynecological history recorded. Obstetrics History GPAL:G 0 P 0 0 0 0 Immunizations Vaccine Type Date Status Provider Name and Address Organization Details Recorded Time Tdap 12/24/2017 completed Not Available [facility] 04:07:00 Tdap 06/04/2017 completed Not Available [facility] 04:07:00 Influenza, split virus, quadrivalent, PF 05/10/2019 completed Not Available [facility] 06/20/2023 04:07:01 COVID-19, mRNA, LNP-S, PF, 100 mcg/0.5mL dose or 50 mcg/0.25mL dose 08/28/2020 completed Not Available [facility] 06/20/20 04:07:03 COVID-19, mRNA, LNP-S, PF, 100 mcg/0.5mL dose or 50 mcg/0.25mL dose 09/25/2020 completed Not Available [facility] 06/20/20 04:07:03 SARS-COV-2 (COVID-19) vaccine, UNSPECIFIED 05/14/2022 completed Not Available [facility] 06/20/2023 04:07:04 SARS-COV-2 (COVID-19) vaccine, UNSPECIFIED 07/03/2021 completed Not Available [facility] 06/20/2023 04:07:04 Influenza, split virus, quadrivalent, PF 06/19/2023 completed Not Available [facility] 08/22/2023 05:33:08 Past Encounters Encounter ID Performer Location Encounter Start Date Encounter Closed Date Diagnosis/Indication Diagnosis SNOMED-CT Code Diagnosis ICD10 Code [id number] AZRA BAILEY [facility] [address] [place] [address] 04/13/2024 10:28:57 04/13/2024 11:37:05 Non-alcoholic fatty liver 646338299 K76.0 Cough 33725060 R05.9 Exacerbati on of intermittent asthma 488399090 J45.21 Right uppe r quadrant pain 035380372 R10.11 Health Concerns Section Related Observation LastModified by Organization Detai ls LastModified Time None Recorded Concern Status LastModified by Organization Details LastModified Time None Recorded Payers Encounter Date Sequence Insurance Name Policy Number Policy Ramos Covered Member ID Ramos Member ID Guarantor Name 04/13/2024 1 [id number]) [id number] Gladys Lopez [id number] Gladys Lopez Notes Date Note Type Note Provider Name and Address Organization Details Recorded Time 04/13/2024 text/html HPI Notes: Pt, 34-F, in office today on follow up of RUQ 12/08/2023 of unknown origin. Pt. had been experiencing bouts of RUQ pain without clear direction of origin of it. Pt. had CT, US, hepatobilliary scan w/normal transit time and MRI showing fatty liver infiltration. She had general surgery consult w/Dr. Gris Man 01/29/2024 with plan to be H.Pylori testing and EGD, but suspicion strong for gall bladder pathology. Pt. expressed interest in referral to [facility] at that consult, but I see no f/u, no H-Pylori results including a VITL record check. Today, pt. indicates the issue resolved on its own so workup has been suspended. Cough: Pt. reports 2-3 days of cough. Her son was sick more than a week ago with respiratory illness, then her daughter came down with symptoms a few days in front of her. She reports she thinks it's pneumonia. She has hx. of asthma and reports feeling wheezy. AZRA BAILEY [address], [place], [address], [facility]. 04/13/2024 12:32:46 OBGyn Episode No OBEpisode recorded.
--- OUTSIDE RECORDS SUMMARY | 2024-04-14 20:35 | XMS_ITS | Encounter Summary ---
[place] [address] Care Team Providers Care Complaint Specialist Name Role Phone Jay Cooper MD Primary Care Provider [phone] Reason for Referral * Consultation (Urgent) - Closed Specialty Diagnoses / Procedures Referred By Gregory velez Referred To Contact Gastroenterology Diagnoses Hepatic steatosis RUQ abdominal pain abd pain Gris Burr MD [address] [place] [address] [facility] [address] [place] [phone] Referral ID Status Reason Start Date Expiration Date V isits Requested Visits Authorized [id number] Closed Consult, Test & Treat PCP Updated and/or Approved 12/15/2023 12/14/2024 6 6 Encounter Details Date Type Department Care Team (Latest Contact Info) Description 12/15/2023 Transcribe Orders eDH Incoming Referrals [phone] Gris Burr MD [address] [place] [address] Hepatic steatosis; RUQ abdominal pain Social History Tobacco Use Types Packs/Day Years Used Date Smoking Tobacco: Former Smokeless Tobacco: Former [facility] Inpatient Questions Answer Date Recorded Does Anyone Try to Keep You From Having Contact with Others or Doing Things Outside Your Home? no 12/12/2023 Feels Threatened by Someone no 10/2023 Feels Unsafe at Home or Work/School no 12/12/2023 Physical Signs of Abuse Present no 12/12/2023 Sex and Gender Information Value Date Recorded Sex Assigned at Not on file Gender Identity Not on file Sexual Orientation Not on file documented as of this encounter Plan of Treatment Scheduled Referrals Name Type Priority Associated Diagnoses Order Schedule Referral to Gastroenterology Outpatient Referral Urgent Hepatic steatosis RUQ abdominal pain Ordered: 12/15/2023 documented as of this encounter Visit Diagnoses Diagnosis Hepatic steatosis Other chronic nonalcoholic liver disease RUQ abdominal pain Abdominal pain, right upper quadrant documented in this encounter Care Teams Complaint Specialist Relationship Specialty Start Date End Date Jay Cooper MD [address] [place] [address] PCP - General Family Medicine 12/15/23 documented as of this encounter
--- OUTSIDE RECORDS SUMMARY | 2024-04-14 20:35 | XMS_ITS | Clinical Summary ---
Author Organization [facility] Address [address] [facility] [place] [address] Care Team Providers Care Aquaculture And Fisheries Professor Name Role Phone Jay Cooper MD Primary Care Provider [phone] Allergies Active Allergy Reactions Criticality Noted Date Comments Adhesive Rash 08/28/2015 Latex, Natural Rubber Rash 07/26/2014 Morphine Nausea And Vomiting 12/21/2015 Morphine caused patient to feel very aggressive Nickel Other (See Comments) 03/25/2017 Tramadol Nausea Only 09/07/2013 Dizziness Medications Medication Sig Dispensed Refills Start Date End Date Status montelukast (Singulair) 10 mg Tablet 10 mg daily. 05/22/[address] (Cymbalta) 20 mg Capsule, Delayed Release(E.C.) TAKE ONE CAPSULE BY MOUTH EVERY DAY 06/30/2020 Active acetaminophen (Tylenol) 325 mg Tablet Take 650 mg by mouth Every 4 hours as needed. 08/12/2017 Active albuteroL 90 mcg/actuation HFA Aerosol Inhaler Inhale 1 puff into the lungs Every 4 hours as needed. 09/10/2017 Active fluticasone propionate (FLOVENT) 110 mcg/actuation HFA Aerosol Inhaler Inhale 1 puff into the lungs Every 12 hours. 09/10/2017 Active ibuprofen (Advil;Motrin) 400 mg Tablet Take 400 mg by mouth Every 4 hours as needed. 08/12/2017 Active propranoloL (Inderal) 20 mg Tablet Take 20 mg by mouth Daily. 09/10/2017 Active spironolactone (ALDACTONE) 50 mg Tablet 2 times daily. 11/11/2019 Active UNKNOWN TO PATIENT Recently prescribed medication for endometriosis Active Active Problems No known active problems Social History Tobacco Use Types Packs/Day Years Used Date Smoking Tobacco: Former Smokeless Tobacco: Former [facility] Inpatient Questions Answer Date Recorded Does Anyone [...] on file Sexual Orientation Not on file Last Filed Vital Signs Vital Sign Reading Time Taken Comments Blood Pressure 114/77 12/12/2023 2:00 PM EDT Pulse 86 12/12/2023 11:17 AM EDT Temperature 36 ??C (96.8 ??F) 12/12/2023 11:17 AM EDT Respiratory Rate 18 12/12/2023 11:17 AM EDT Oxygen Saturation 100% 12/12/2023 2:00 PM EDT Inhaled Oxygen Concentration - - Weight 104.3 kg (230 lb) 12/12/2023 11:17 AM EDT Height 162.6 cm (5' 4) 12/12/2023 11:17 AM EDT Body Mass Index 39.48 12/12/2023 11:17 AM EDT Plan of Treatment Health Maintenance Due Date Last Done Comments HIV screen 02/08/2008 Hepatitis C Screening 02/08/2008 Lipid Screening 02/08/2008 Hepatitis B vaccine (0-59 yrs) (1) 2009 Tdap adult 2009 Tetanus vaccine 2009 HPV test 02/08/2020 PAP Smear 02/08/2020 Covid-19 Vaccine ( - 2022-24 season) 2024 Influenza (Flu) vaccine (1 o f 1 - Influenza standard series) 04/11/2024 Care Teams Aquaculture And Fisheries Professor Relationship Specialty Start Date End Date Jay Cooper MD [address] [place] [address] PCP - General Family Medicine 12/15/23
--- OUTSIDE RECORDS SUMMARY | 2024-04-14 20:35 | XMS_ITS | Encounter Summary ---
[place] [address] Care Team Providers Care Nuclear Equipment Sales Engineer Name Role Phone Jay Cooper MD Primary Care Provider [phone] Encounter Details Date Type Department Care Team ([facility] Contact Info) Description 12/26/2023 [place] [id number] Mary Anne Oakley Social History Tobacco Use Types Packs/Day Years Used Date Smoking Tobacco: Former Smokeless Tobacco: Former [facility] Inpatient Questions Answer Date Recorded Does Anyone [...] on file documented as of this encounter Miscellaneous Notes * Telephone Encounter - Mary Anne Oakley - 12/26/2023 1:27 PM EDT DO NOT SCHEDULE - Pt needs new referral before scheduling in our clinic. documented in this encounter Plan of Treatment Not on file documented as of this encounter Visit Diagnoses Not on filedocumented in this encounter Care Teams Nuclear Equipment Sales Engineer Relationship Specialty Start Date End Date Jay Cooper MD [address] [place] [address] [place] [id number] PCP - General Family Medicine 12/15/23 documented as of this encounter
--- OUTSIDE RECORDS SUMMARY | 2024-04-14 20:35 | XMS_ITS | Data Portability ---
Author Organization [facility], [facility] Address [address] [place] [address] Care Team Providers Care Observation Assistant Name Role Phone REJI COOPER Primary Care Provider [phone] [facility] OTHER [phone] Assessment No assessment recorded. Plan of Treatment Reminders Order Date Submit Date Provider Last Modified By Organization Details Last Modified Time Details Appointments None recorded. Lab amylase + lipase, serum 2023 024 [email or web address] ([facility]), [address] [place] [address] [place], [address], 4 09:08:11 CMP, serum or plasma 2023 024 [email or web address] [facility] ([facility]), [address] [place] [address] [place], [address], 4 16:23:43 CBC w/ auto diff 2023 024 [email or web address] ([facility]), [address] [place] [address] [place], [address], 4 09:24:57 amylase + lipase, serum 2023 024 [email or web address] [facility] ([facility]), [address] [place] [address] [place], [address], 4 03:46:50 C-reactive protein, quantitativ e, serum or plasma 2023 024 [facility] ([facility]), [address] [place] [address] , [place], [address], 4 09:13:32 ESR (erythrocyt e sedimentati on rate), blood [id number] [facility] ([facility]), [address] [place] [address] , [place], [address], 4 03:46:50 influenza virus A + B + SARS-CoV-2 (COVID19) Ag panel, rapid IA, upper respiratory specimen 2023 024 [email or web address] [facility], [address] , [place], [address], 4 15:41:12 Referral general surgeon referral - Pt, 33-F, family hx. of multiple women, mom/sister' s w/cholecyst ectomy, having recurrent stabbing, right side upper abdominal pain with nausea and some instance of vomiting. Has been to the ED twice for this. She has had multple imaging modalities as a result including 11/27/2023 US which showed 3. 1.3 x 1.8 x 1.9 cm area of decreased echogenicit y in the left lobe of the liver. In light of thefatty infiltratio n, this may represent of focal fatty sparing. There is no correlatese en on the CTscan from the day prior. An MRI of the liver should be considered for furthereval uation. Pt. had Nuclear Uptake scan of gall bladder which showed normal transit time 91% EF of contents, pt. continues to have symptoms. I am ordering the rec'd MRI of liver today, but requesting surgical consult for after imaging complete. Refilling Zofran for pt. nausea and increasing PPI/omepraz ole to 40 mg qday. 2023 024 [facility], [address] [place] [address] , [address], [place], [address], 4 10:51:34 Procedures None recorded. Surgeries None recorded. Imaging NM, hepatobilia ry scan, w/ CCK 2023 024 SANJU [facility], [address], [place], [address], 4 08:16:05 MRI, liver, w/wo contrast - PA not required reference (Unknow) 12/11/23 10:20 am Pt. with 11/27/2023 US finding of 3. 1.3 x 1.8 x 1.9 cm area of decreased echogenicit y in the left lobe of the liver. In light of thefatty infiltratio n, this may represent of focal fatty sparing. There is no correlatese en on the CTscan from the day prior. An MRI of the liver should be considered for furthereval uation. and she had 12/03/2023 Nuclear medicine Scan of liver showing no dysfunciton of transit for gall bladder ER 91%. CT on 11/26/2023 did not show/correl ate with findings on US, but pt. continues to have stabbing URQ pain, nausea, and occasional vomiting. 2023 024 [email or web address] [facility], [address], [place], [address], 4 16:16:48 Medication Orders ondansetron 4 mg disintegrat ing tablet 2023 024 SANJU [facility], [address] [facility], [place], [address], 4 18:20:59 ondansetron 4 mg disintegrat ing tablet 2023 024 [facility], [address] [place] [address] [place], [address], 4 16:27:03 omeprazole 40 mg capsule,del ayed release 2023 024 [facility], [address] [place] [address] [place], [address], 4 16:27:07 ondansetron HCl 8 mg tablet 2023 024 [facility], [address] [place] [address] [place], [address], 4 12:16:19 prednisone 20 mg tablet 2023 024 [facility], [address] [place] [address] , [place], [address], 4 07:19:08 prednisone 20 mg tablet 2023 024 [email or web address] [facility], [address] [place], [address], 4 15:41:12 albuterol sulfate 2.5 mg/3 mL (0.083 %) solution for nebulizatio n 2023 024 [email or web address] [facility], [address] [place], [address], 4 15:41:12 Patient TargetsNo targets recorded. Patient Instructions Encounter Date Encounter Id Patient Instructions Last Modified By Organization Details Last Modified Time 12/05/2023 [id number] Trial of holding spironolactone for next 4 days. [email or web address] Not available 12/05/2023 16:27:04 12/08/2023 [id number] Pt. advised to g o to ED if increase in pain, especially in presence of fever. [email or web address] Not available 12/08/2023 12:12:52 12/24/2023 [id number] 1. I have sent prescription for prednisone to the pharmacy at [facility]. Please start this tomorrow morning. Take with food. 2. Lung exam currently without signs to suggest pneumonia. I do recommend that you continue to use your inhalers as needed. 3. I do expect her lungs should begin to improve. If you are not improving, having any worsening or develop other concerning symptoms please seek follow-up as needed. [email or web address] Not available 12/24/2023 18:27:35 04/13/2024 [id number] If not obviously trending towards getting better in 1-week, let me know and I can order chest xray and/or antibiotics. Not available 04/13/2024 11:17:12 Reason for Referral [...] Abnormal Flag Note LastModifiedBy Organization Detail LastModifiedTime 11/06/1911/06/2023 COMPL ETE BLOOD COUNT W/DIF F WBC 8.44 10_3/ uL 4.4-10 .8 normal Not Available [address] [place], [address] 11/06/2023 09:40:05 11/06/19 24 11/06/2023 COMPL ETE BLOOD COUNT W/DIF F RBC 4.93 10_6/ uL 3.93-5 .22 normal Not Available [address] [place], [address] 11/06/2023 09:40:05 11/06/19 24 11/06/2023 COMPL ETE BLOOD COUNT W/DIF F HGB 13.9 g/dL 11.2-1 5.7 normal Not Available [address] [place], [address] 11/06/2023 09:40:05 11/06/19 24 11/06/2023 COMPL ETE BLOOD COUNT W/DIF F HCT 41.6 % 36.0-4 6.0 normal Not Available [address] [place], [address] 11/06/2023 09:40:05 11/06/19 24 11/06/2023 COMPL ETE BLOOD COUNT W/DIF F MCV 84 fL 80-95 normal Not Available [address] [place], [address] 11/06/2023 09:40:05 11/06/19 24 11/06/2023 COMPL ETE BLOOD COUNT W/DIF F MCH 28.2 pg 27.0-3 3.0 normal Not Available [address] [place], [address] 11/06/2023 09:40:05 11/06/19 24 11/06/2023 COMPL ETE BLOOD COUNT W/DIF F MCHC 33.4 % 32.0-3 6.0 normal Not Available [address] [place], [address] 11/06/2023 09:40:05 11/06/19 24 11/06/2023 COMPL ETE BLOOD COUNT W/DIF F RDW 12.7 % 11.7-1 4.6 normal Not Available [address] [place], [address] 11/06/2023 09:40:05 11/06/19 24 11/06/2023 COMPL ETE BLOOD COUNT W/DIF F platelet count 283 10_3/ uL 130-40 0 normal Not Available [address] [place], [address] 11/06/2023 09:40:05 11/06/19 24 11/06/2023 COMPL ETE BLOOD COUNT W/DIF F MPV 10.0 fL 8.0-11 .0 normal Not Available [address] [place], [address] 11/06/2023 09:40:05 11/06/19 24 11/06/2023 COMPL ETE BLOOD COUNT W/DIF F neutrophils % 67.4 Not Available [address] [place], [address] 11/06/2023 09:40:05 11/06/19 24 11/06/2023 COMPL ETE BLOOD COUNT W/DIF F lymphocytes % 23.2 Not Available [address] [place], [address] 11/06/2023 09:40:05 11/06/19 24 11/06/2023 COMPL ETE BLOOD COUNT W/DIF F monocytes % 6.2 Not Available [address] [place], [address] 11/06/2023 09:40:05 11/06/19 24 11/06/2023 COMPL ETE BLOOD COUNT W/DIF F eosinophils % 1.8 Not Available [address] [place], [address] 11/06/2023 09:40:05 11/06/19 24 11/06/2023 COMPL ETE BLOOD COUNT W/DIF F basophils % 0.7 Not Available [address] [place], [address] 11/06/2023 09:40:05 11/06/19 24 11/06/2023 COMPL ETE BLOOD COUNT W/DIF F immature grans % 0.7 Not Available [address] [facility] [place], [address] 11/06/2023 09:40:05 11/06/19 24 11/06/2023 COMPL ETE BLOOD COUNT W/DIF F nucleated RBC 0.0 % 0.0-0. 3 normal Not Available [address] [place], [address] 11/06/2023 09:40:05 11/06/19 24 11/06/2023 COMPL ETE BLOOD COUNT W/DIF F absolute neutrophil count 5.69 10_3/ uL 1.2-6. 7 normal Not Available [address] [place], [address] 11/06/2023 09:40:05 11/06/19 24 11/06/2023 COMPL ETE BLOOD COUNT W/DIF F absolute lymphocyte count 1.96 10_3/ uL 1.2-3. 4 normal Not Available [address] [place], [address] 11/06/2023 09:40:05 11/06/19 24 11/06/2023 COMPL ETE BLOOD COUNT W/DIF F absolute monocyte count 0.52 10_3/ uL 0.1-0. 8 normal Not Available [address] [place], [address] 11/06/2023 09:40:05 11/06/19 24 11/06/2023 COMPL ETE BLOOD COUNT W/DIF F absolute eosinophil count 0.15 10_3/ uL 0.0-0. 7 normal Not Available [address] [place], [address] 11/06/2023 09:40:05 11/06/19 24 11/06/2023 COMPL ETE BLOOD COUNT W/DIF F absolute basophil count 0.06 10_3/ uL 0.0-0. 2 normal Not Available [address] [place], [address] 11/06/2023 09:40:05 11/06/19 24 11/06/2023 URINA LYSIS color YELLOW yellow Not Available Lilian prather [address] [place], [address] 11/06/2023 09:42:04 11/06/1911/06/2023 URINA LYSIS clarity CLEAR clear Not Available Lilian prather [address] [place], [address] 11/06/2023 09:42:04 11/06/1911/06/2023 URINA LYSIS specific gravity 1.025 1.005- 1.025 normal Not Available [address] [place], [address] 11/06/2023 09:42:04 11/06/19 24 11/06/2023 URINA LYSIS pH 6.0 5-8 normal Not Available Lilian prather [address] [place], [address] 11/06/2023 09:42:04 11/06/1911/06/2023 URINA LYSIS leukocyte esterase NEGATI VE negati ve Not Available [address] [place], [address] 11/06/2023 09:42:04 11/06/19 24 11/06/2023 URINA LYSIS nitrite NEGATI VE negati ve Not Available [address] [place], [address] 11/06/2023 09:42:04 11/06/1911/06/2023 URINA LYSIS protein NEGATI VE mg/dL neg-tr cal Not Available [address] [place], [address] 11/06/2023 09:42:04 11/06/1911/06/2023 URINA LYSIS glucose NEGATI VE mg/dL negati ve Not Available [address] [place], [address] 11/06/2023 09:42:04 11/06/1911/06/2023 URINA LYSIS ketones TRACE mg/dL negati ve abnormal Not Available [address] [place], [address] 11/06/2023 09:42:04 11/06/19 24 11/06/2023 URINA LYSIS urobilinogen 1.0 mg/dL up to 0.2 abnormal Not Available [address] [place], [address] 11/06/2023 09:42:04 11/06/19 24 11/06/2023 URINA LYSIS bilirubin SMALL negati ve abnormal Not Available [address] [place], [address] 11/06/2023 09:42:04 11/06/19 24 11/06/2023 URINA LYSIS blood NEGATI VE negati ve Not Available [address] [place], [address] 11/06/2023 09:42:04 11/06/19 24 11/06/2023 COMPR EHENS JARRED METAB OLIC PANEL calcium 9.1 mg/dL 8.5-10 .1 normal Not Available [address] [place], [address] 11/06/2023 09:56:11 11/06/1911/06/2023 COMPR EHENS JARRED METAB OLIC PANEL glucose 101 mg/dL 74-106 normal Not Available Lilian prather [address] [place], [address] 11/06/2023 09:56:11 11/06/1911/06/2023 COMPR EHENS JARRED METAB OLIC PANEL BUN 13 mg/dL 7-18 normal Not Available Lilian [address] [place], [address] 11/06/2023 09:56:11 11/06/1911/06/2023 COMPR EHENS JARRED METAB OLIC PANEL creatinine 0.9 mg/dL 0.55-1 .02 normal Not Available [address] [place], [address] 11/06/2023 09:56:11 11/06/1911/06/2023 COMPR EHENS JARRED METAB OLIC PANEL estimated GFR 86.57 mL/min /1.73m 2 The eGFR is calcu lated from a serum creat inine using the CKD-E PI 2020 equat ion. Other varia bles requi red for the equat ion are gende r and age; this equat ion does not inclu de a race coeff icien t. This equat ion has simil ar overa ll perfo rmanc e to previ ous equat ions excep t value s may diffe r, in parti cular , in patie nts with highe r value s of eGFR and young er-ag ed adult s. Not Available [address] [place], [address] 11/06/2023 09:56:11 11/06/1911/06/2023 COMPR EHENS JARRED METAB OLIC PANEL total protein 7.7 g/dL 6.4-8. 2 normal Not Available [address] [place], [address] 11/06/2023 09:56:11 11/06/19 24 11/06/2023 COMPR EHENS JARRED METAB OLIC PANEL albumin 4.0 g/dL 3.4-5. 0 normal Not Available [address] [place], [address] 11/06/2023 09:56:11 11/06/19 24 11/06/2023 COMPR EHENS JARRED METAB OLIC PANEL bilirubin, total 0.7 mg/dL 0.2-1. 0 normal Not Available [address] [place], [address] 11/06/2023 09:56:11 11/06/19 24 11/06/2023 COMPR EHENS JARRED METAB OLIC PANEL alk phos 82 U/L 46-116 normal Not Available [address] [place], [address] 11/06/2023 09:56:11 11/06/19 24 11/06/2023 COMPR EHENS JARRED METAB OLIC PANEL sodium 140 mmol/ L 136-14 5 normal Not Available [address] [place], [address] 11/06/2023 09:56:11 11/06/19 24 11/06/2023 COMPR EHENS JARRED METAB OLIC PANEL potassium 3.8 mmol/ L 3.5-5. 1 normal Not Available [address] [place], [address] 11/06/2023 09:56:11 11/06/19 24 11/06/2023 COMPR EHENS JARRED METAB OLIC PANEL chloride 106 mmol/ L 98-107 normal Not Available [address] [place], [address] 11/06/2023 09:56:11 11/06/19 24 11/06/2023 COMPR EHENS JARRED METAB OLIC PANEL CO2 22.5 mmol/ L 21.0-3 2.0 normal Not Available [address] [place], [address] 11/06/2023 09:56:11 11/06/19 24 11/06/2023 COMPR EHENS JARRED METAB OLIC PANEL anion gap 11.5 mmol/ L 3-11 high Not Available [address] [place], [address] 11/06/2023 09:56:11 11/06/19 24 11/06/2023 COMPR EHENS JARRED METAB OLIC PANEL AST 29 U/L 15-37 normal Not Available Lilian prather [address] [place], [address] 11/06/2023 09:56:11 11/06/19 24 11/06/2023 COMPR EHENS JARRED METAB OLIC PANEL ALT 35 U/L 14-59 normal Not Available Lilian rn [address] [place], [address] 11/06/2023 09:56:11 11/06/19 24 11/06/2023 MAGNE SIUM magnesium 2.1 mg/dL 1.8-2. 4 normal Not Available [address] [place], [address] 11/06/2023 09:56:12 11/06/19 24 11/06/2023 LIPAS E lipase 42 U/L 16-77 normal Not Available Lilian prather [address] [place], [address] 11/06/2023 09:56:12 11/06/19 24 11/06/2023 HCG QUAL (SERU M) HCG qual (serum) NEGATI VE Sure- Walter Serum hCG has a sensi tivit y of 10 mIU/m L in serum and is capab le of detec ting pregn tony as early as 1 day after the first misse d mense s. Not Available [address] [place], [address] 11/06/2023 10:38:13 11/24/19 24 11/25/2023 URINE CULTU RE urine culture Urine Cultu re ACTIO N SUSCE PTIBI LITY TO FOLLO W APPEA YOLY Gram Negat jarred Noah COLON Y COUNT Not Available [address] [place], [address] 11/25/2023 12:14:51 11/24/19 24 11/25/2023 URINE CULTU RE urine culture colon ies/m L >100, 000 Day 1 Resul t ISOLA CANDY BELOW O:ESC COL (ORGA NISM ID: 1.1) - Esche lianet a coli Urine Cultu re (ORGA NISM ID: 1.1) - COLON Y COUNT (ORGA NISM ID: 1.1) - >100, 000 Not Available [address] [place], [address] 11/25/2023 12:14:51 11/24/19 24 11/26/2023 URINE CULTU RE urine culture Urine Cultu re ACTIO N SUSCE PTIBI LITY TO FOLLO W APPEA YOLY Gram Negat jarred Noah APPEA YOLY Gram Negat jarred Noah COLON Y COUNT Not Available [address] [place], [address] 11/26/2023 08:43:23 11/24/19 24 11/26/2023 URINE CULTU RE urine culture colon ies/m L >100, 000 COLON Y COUNT >100, 000 Day 1 Resul t ISOLA CANDY BELOW Day 2 Resul t ISOLA CANDY BELOW O:ESC COL (ORGA NISM ID: 1.1) - Esche lianet a coli Urine Cultu re (ORGA NISM ID: 1.1) - COLON Y COUNT (ORGA NISM ID: 1.1) - >100, 000 ORGAN ISM ID: 1.1 ANTIB IOTIC INTER PRETA TION GUILHERME STATU S Ampic illin S <=2 F Ampic illin /Sulb actam S <=2 F Cefaz seth S <=4 F Cefta zidim e S <=1 F CEFTR IAXON E S <=1 F Cipro floxa sergo S <=0.2 5 F Genta micin S <=1 F Nitro furan toin S 32 F Imipe nem S <=0.2 5 F Levof loxac in S <=0.1 2 F Tobra mycin S <=1 F Trime thopr im/Saxena lfame thoxa zole S <=20 F Piper acill in/Ta zobac humphrey S <=4 F Not Available [address] [place], [address] 11/26/2023 08:43:23 11/26/19 24 11/26/2023 COMPL ETE BLOOD COUNT W/DIF F WBC 10.27 10_3/ uL 4.4-10 .8 normal Not Available [address] [place], [address] 11/26/2023 13:10:08 11/26/19 24 11/26/2023 COMPL ETE BLOOD COUNT W/DIF F RBC 4.87 10_6/ uL 3.93-5 .22 normal Not Available [address] [place], [address] 11/26/2023 13:10:08 11/26/19 24 11/26/2023 COMPL ETE BLOOD COUNT W/DIF F HGB 14.0 g/dL 11.2-1 5.7 normal Not Available [address] [place], [address] 11/26/2023 13:10:08 11/26/19 24 11/26/2023 COMPL ETE BLOOD COUNT W/DIF F HCT 41.1 % 36.0-4 6.0 normal Not Available [address] [place], [address] 11/26/2023 13:10:08 11/26/19 24 11/26/2023 COMPL ETE BLOOD COUNT W/DIF F MCV 84 fL 80-95 normal Not Available [address] [place], [address] 11/26/2023 13:10:08 11/26/19 24 11/26/2023 COMPL ETE BLOOD COUNT W/DIF F MCH 28.7 pg 27.0-3 3.0 normal Not Available [address] [place], [address] 11/26/2023 13:10:08 11/26/19 24 11/26/2023 COMPL ETE BLOOD COUNT W/DIF F MCHC 34.1 % 32.0-3 6.0 normal Not Available [address] [place], [address] 11/26/2023 13:10:08 11/26/19 24 11/26/2023 COMPL ETE BLOOD COUNT W/DIF F RDW 12.5 % 11.7-1 4.6 normal Not Available [address] [place], [address] 11/26/2023 13:10:08 11/26/19 24 11/26/2023 COMPL ETE BLOOD COUNT W/DIF F platelet count 252 10_3/ uL 130-40 0 normal Not Available [address] [place], [address] 11/26/2023 13:10:08 11/26/19 24 11/26/2023 COMPL ETE BLOOD COUNT W/DIF F MPV 10.3 fL 8.0-11 .0 normal Not Available [address] [place], [address] 11/26/2023 13:10:08 11/26/19 24 11/26/2023 COMPL ETE BLOOD COUNT W/DIF F neutrophils % 66.5 Not Available [address] [place], [address] 11/26/2023 13:10:08 11/26/19 24 11/26/2023 COMPL ETE BLOOD COUNT W/DIF F lymphocytes % 23.0 Not Available [address] [place], [address] 11/26/2023 13:10:08 11/26/19 24 11/26/2023 COMPL ETE BLOOD COUNT W/DIF F monocytes % 6.9 Not Available [address] [place], [address] 11/26/2023 13:10:08 11/26/19 24 11/26/2023 COMPL ETE BLOOD COUNT W/DIF F eosinophils % 1.9 Not Available [address] [place], [address] 11/26/2023 13:10:08 11/26/19 24 11/26/2023 COMPL ETE BLOOD COUNT W/DIF F basophils % 0.8 Not Available [address] [place], [address] 11/26/2023 13:10:08 11/26/19 24 11/26/2023 COMPL ETE BLOOD COUNT W/DIF F immature grans % 0.9 Not Available Neftali wheatley [address] [place], [address] 11/26/2023 13:10:08 11/26/19 24 11/26/2023 COMPL ETE BLOOD COUNT W/DIF F nucleated RBC 0.0 % 0.0-0. 3 normal Not Available [address] [place], [address] 11/26/2023 13:10:08 11/26/19 24 11/26/2023 COMPL ETE BLOOD COUNT W/DIF F absolute neutrophil count 6.83 10_3/ uL 1.2-6. 7 high Not Available [address] [place], [address] 11/26/2023 13:10:08 11/26/19 24 11/26/2023 COMPL ETE BLOOD COUNT W/DIF F absolute lymphocyte count 2.36 10_3/ uL 1.2-3. 4 normal Not Available [address] [place], [address] 11/26/2023 13:10:08 11/26/19 24 11/26/2023 COMPL ETE BLOOD COUNT W/DIF F absolute monocyte count 0.71 10_3/ uL 0.1-0. 8 normal Not Available [address] [place], [address] 11/26/2023 13:10:08 11/26/19 24 11/26/2023 COMPL ETE BLOOD COUNT W/DIF F absolute eosinophil count 0.20 10_3/ uL 0.0-0. 7 normal Not Available [address] [place], [address] 11/26/2023 13:10:08 11/26/19 24 11/26/2023 COMPL ETE BLOOD COUNT W/DIF F absolute basophil count 0.08 10_3/ uL 0.0-0. 2 normal Not Available [address] [place], [address] 11/26/2023 13:10:08 11/26/19 24 11/26/2023 LACTA TE lactate 1.7 mmol/ L 0.6-1. 4 high Not Available [address] [place], [address] 11/26/2023 13:10:09 11/26/19 24 11/26/2023 COMPR EHENS JARRED METAB OLIC PANEL calcium 9.0 mg/dL 8.5-10 .1 normal Not Available [address] [place], [address] 11/26/2023 13:43:14 11/26/19 24 11/26/2023 COMPR EHENS JARRED METAB OLIC PANEL glucose 109 mg/dL 74-106 high Not Available Lilian prather [address] [place], [address] 11/26/2023 13:43:14 11/26/19 24 11/26/2023 COMPR EHENS JARRED METAB OLIC PANEL BUN 10 mg/dL 7-18 normal Not Available Lilian prather [address] [place], [address] 11/26/2023 13:43:14 11/26/19 24 11/26/2023 COMPR EHENS JARRED METAB OLIC PANEL creatinine 0.9 mg/dL 0.55-1 .02 normal Not Available [address] [place], [address] 11/26/2023 13:43:14 11/26/19 24 11/26/2023 COMPR EHENS JARRED METAB OLIC PANEL estimated GFR 86.57 mL/min /1.73m 2 The eGFR is calcu lated from a serum creat inine using the CKD-E PI 2020 equat ion. Other varia bles requi red for the equat ion are gende r and age; this equat ion does not inclu de a race coeff icien t. This equat ion has simil ar overa ll perfo rmanc e to previ ous equat ions excep t value s may diffe r, in parti cular , in patie nts with highe r value s of eGFR and young er-ag ed adult s. Not Available [address] [place], [address] 11/26/2023 13:43:14 11/26/19 24 11/26/2023 COMPR EHENS JARRED METAB OLIC PANEL total protein 7.6 g/dL 6.4-8. 2 normal Not Available [address] [place], [address] 11/26/2023 13:43:14 11/26/19 24 11/26/2023 COMPR EHENS JARRED METAB OLIC PANEL albumin 3.8 g/dL 3.4-5. 0 normal Not Available [address] [place], [address] 11/26/2023 13:43:14 11/26/19 24 11/26/2023 COMPR EHENS JARRED METAB OLIC PANEL bilirubin, total 0.4 mg/dL 0.2-1. 0 normal Not Available [address] [place], [address] 11/26/2023 13:43:14 11/26/19 24 11/26/2023 COMPR EHENS JARRED METAB OLIC PANEL alk phos 92 U/L 46-116 normal Not Available [address] [place], [address] 11/26/2023 13:43:14 11/26/19 24 11/26/2023 COMPR EHENS JARRED METAB OLIC PANEL sodium 139 mmol/ L 136-14 5 normal Not Available [address] [place], [address] 11/26/2023 13:43:14 11/26/19 24 11/26/2023 COMPR EHENS JARRED METAB OLIC PANEL potassium 3.8 mmol/ L 3.5-5. 1 normal Not Available [address] [place], [address] 11/26/2023 13:43:14 11/26/19 24 11/26/2023 COMPR EHENS JARRED METAB OLIC PANEL chloride 104 mmol/ L 98-107 normal Not Available [address] [place], [address] 11/26/2023 13:43:14 11/26/19 24 11/26/2023 COMPR EHENS JARRED METAB OLIC PANEL CO2 23.9 mmol/ L 21.0-3 2.0 normal Not Available [address] [place], [address] 11/26/2023 13:43:14 11/26/19 24 11/26/2023 COMPR EHENS JARRED METAB OLIC PANEL anion gap 11.1 mmol/ L 3-11 high Not Available [address] [place], [address] 11/26/2023 13:43:14 11/26/19 24 11/26/2023 COMPR EHENS JARRED METAB OLIC PANEL AST 26 U/L 15-37 normal Not Available Lilian prather [address] [place], [address] 11/26/2023 13:43:14 11/26/19 24 11/26/2023 COMPR EHENS JARRED METAB OLIC PANEL ALT 35 U/L 14-59 normal Not Available Lilian prather [address] [place], [address] 11/26/2023 13:43:14 11/26/19 24 11/26/2023 LIPAS E lipase 37 U/L 16-77 normal Not Available Lilian prather [address] [place], [address] 11/26/2023 13:43:15 11/26/19 24 11/26/2023 TROPO MIKEY I troponin I < 50 NG/L < or =60 Not Available [address] [place], [address] 11/26/2023 13:43:16 11/26/19 24 11/26/2023 NT-PA OBNP nt-probnp 23 pg/mL <300 NT-pr oBNP value s <300 pg/mL have a 98% negat jarred predi ctive value for exclu ding acute conge stive heart failu re(CH F). NOTE: Supra -phys iolog ic doses of Bioti n(B7) may cause false negat jarred resul ts. Not Available [address] [place], [address] 11/26/2023 13:43:16 11/26/19 24 11/26/2023 URINA LYSIS color Yellow yellow Not Available Lilian prather [address] [place], [address] 11/26/2023 14:20:27 11/26/19 24 11/26/2023 URINA LYSIS clarity Clear clear Not Available Lilian prather [address] [place], [address] 11/26/2023 14:20:27 11/26/19 24 11/26/2023 URINA LYSIS specific gravity 1.020 1.005- 1.025 normal Not Available [address] [place], [address] 11/26/2023 14:20:27 11/26/19 24 11/26/2023 URINA LYSIS pH 6.0 5-8 normal Not Available Lilian prather [address] [place], [address] 11/26/2023 14:20:27 11/26/19 24 11/26/2023 URINA LYSIS leukocyte esterase Negati ve negati ve Not Available [address] [place], [address] 11/26/2023 14:20:27 11/26/19 24 11/26/2023 URINA LYSIS nitrite Negati ve negati ve Not Available [address] [place], [address] 11/26/2023 14:20:27 11/26/19 24 11/26/2023 URINA LYSIS protein Negati ve mg/dL neg-tr cal Not Available [address] [place], [address] 11/26/2023 14:20:27 11/26/19 24 11/26/2023 URINA LYSIS glucose Negati ve mg/dL negati ve Not Available [address] [place], [address] 11/26/2023 14:20:27 11/26/19 24 11/26/2023 URINA LYSIS ketones Negati ve mg/dL negati ve Not Available [address] [place], [address] 11/26/2023 14:20:27 11/26/19 24 11/26/2023 URINA LYSIS urobilinogen 0.2 mg/dL up to 0.2 Not Available [address] [place], [address] 11/26/2023 14:20:27 11/26/19 24 11/26/2023 URINA LYSIS bilirubin Negati ve negati ve Not Available [address] [place], [address] 11/26/2023 14:20:27 11/26/19 24 11/26/2023 URINA LYSIS blood Trace- intact negati ve abnormal Not Available [address] [place], [address] 11/26/2023 14:20:27 11/26/19 24 11/26/2023 URINA LYSIS color Yellow yellow Not Available Lilian prather [address] [place], [address] 11/26/2023 14:42:26 11/26/19 24 11/26/2023 URINA LYSIS clarity Clear clear Not Available Lilian prather [address] [place], [address] 11/26/2023 14:42:26 11/26/19 24 11/26/2023 URINA LYSIS specific gravity 1.020 1.005- 1.025 normal Not Available [address] [place], [address] 11/26/2023 14:42:26 11/26/19 24 11/26/2023 URINA LYSIS pH 6.0 5-8 normal Not Available Lilian prather [address] [place], [address] 11/26/2023 14:42:26 11/26/19 24 11/26/2023 URINA LYSIS leukocyte esterase Negati ve negati ve Not Available [address] [place], [address] 11/26/2023 14:42:26 11/26/19 24 11/26/2023 URINA LYSIS nitrite Negati ve negati ve Not Available [address] [place], [address] 11/26/2023 14:42:26 11/26/19 24 11/26/2023 URINA LYSIS protein Negati ve mg/dL neg-tr cal Not Available [address] [place], [address] 11/26/2023 14:42:26 11/26/19 24 11/26/2023 URINA LYSIS glucose Negati ve mg/dL negati ve Not Available [address] [place], [address] 11/26/2023 14:42:26 11/26/19 24 11/26/2023 URINA LYSIS ketones Negati ve mg/dL negati ve Not Available [address] [place], [address] 11/26/2023 14:42:26 11/26/19 24 11/26/2023 URINA LYSIS urobilinogen 0.2 mg/dL up to 0.2 Not Available [address] [place], [address] 11/26/2023 14:42:26 11/26/19 24 11/26/2023 URINA LYSIS bilirubin Negati ve negati ve Not Available [address] [place], [address] 11/26/2023 14:42:26 11/26/19 24 11/26/2023 URINA LYSIS blood Trace- intact negati ve abnormal Not Available [address] [place], [address] 11/26/2023 14:42:26 11/26/19 24 11/26/2023 MICRO SCOPI C FINDI NGS WBC 3-5 hpf 0-5 Not Available Lilian prather [address] [place], [address] 11/26/2023 14:42:26 11/26/19 24 11/26/2023 MICRO SCOPI C FINDI NGS RBC 0-2 hpf 0-2 Not Available Lilian prather [address] [place], [address] 11/26/2023 14:42:26 11/26/19 24 11/26/2023 MICRO SCOPI C FINDI NGS epithelial cells Few hpf negati ve Not Available [address] [place], [address] 11/26/2023 14:42:26 11/26/19 24 11/26/2023 MICRO SCOPI C FINDI NGS bacteria Rare hpf negati ve Not Available [address] [place], [address] 11/26/2023 14:42:26 11/26/19 24 11/26/2023 MICRO SCOPI C FINDI NGS crystals Negati ve hpf negati ve Not Available [address] [place], [address] 11/26/2023 14:42:26 11/26/19 24 11/26/2023 MICRO SCOPI C FINDI NGS mucus Negati ve negati ve Not Available [address] [place], [address] 11/26/2023 14:42:26 11/26/19 24 11/26/2023 MICRO SCOPI C FINDI NGS casts Negati ve lpf negati ve Not Available [address] [place], [address] 11/26/2023 14:42:26 11/26/19 24 11/26/2023 MICRO SCOPI C FINDI NGS C S indicated? No/Sq. Contam inatio n Not Available Pamela [address] [place], [address] 11/26/2023 14:42:26 12/04/19 24 12/04/2023 URINA LYSIS color Yellow yellow Not Available Lilian prather [address] [place], [address] 12/04/2023 16:50:47 12/04/19 24 12/04/2023 URINA LYSIS clarity Sl Cloudy clear Not Available Pamela briseno [address] [place], [address] 12/04/2023 16:50:47 12/04/19 24 12/04/2023 URINA LYSIS specific gravity 1.015 1.005- 1.025 normal Not Available [address] [place], [address] 12/04/2023 16:50:47 12/04/19 24 12/04/2023 URINA LYSIS pH 5.5 5-8 normal Not Available Lilian prather [address] [place], [address] 12/04/2023 16:50:47 12/04/19 24 12/04/2023 URINA LYSIS leukocyte esterase Negati ve negati ve Not Available [address] [place], [address] 12/04/2023 16:50:47 12/04/19 24 12/04/2023 URINA LYSIS nitrite Negati ve negati ve Not Available [address] [place], [address] 12/04/2023 16:50:47 12/04/19 24 12/04/2023 URINA LYSIS protein Negati ve mg/dL neg-tr cal Not Available [address] [place], [address] 12/04/2023 16:50:47 12/04/19 24 12/04/2023 URINA LYSIS glucose Negati ve mg/dL negati ve Not Available [address] [place], [address] 12/04/2023 16:50:47 12/04/19 24 12/04/2023 URINA LYSIS ketones Negati ve mg/dL negati ve Not Available [address] [place], [address] 12/04/2023 16:50:47 12/04/19 24 12/04/2023 URINA LYSIS urobilinogen 0.2 mg/dL up to 0.2 Not Available [address] [place], [address] 12/04/2023 16:50:47 12/04/19 24 12/04/2023 URINA LYSIS bilirubin Negati ve negati ve Not Available [address] [place], [address] 12/04/2023 16:50:47 12/04/19 24 12/04/2023 URINA LYSIS blood Negati ve negati ve Not Available [address] [place], [address] 12/04/2023 16:50:47 12/04/19 24 12/05/2023 URINE CULTU RE urine culture Urine Cultu re APPEA YOLY Mixed Gram Posit jarred Lana COLON Y COUNT Not Available [address] [place], [address] 12/05/2023 12:55:44 12/04/19 24 12/05/2023 URINE CULTU RE urine culture colon ies/m L <10,0 00 Day 1 Resul t ISOLA CANDY BELOW O:GPF M (ORGA NISM ID: 1.1) - GRAM POSIT JARRED LANA ,MIXE D Urine Cultu re (ORGA NISM ID: 1.1) - COLON Y COUNT (ORGA NISM ID: 1.1) - <10,0 00 Not Available [address] [place], [address] 12/05/2023 12:55:44 12/04/19 24 12/06/2023 URINE CULTU RE urine culture Urine Cultu re Proba ble conta minat ed colle ction APPEA YOLY Mixed Gram Posit jarred Lana APPEA YOLY Mixed Gram Posit jarred Lana COLON Y COUNT Not Available [address] [place], [address] 12/06/2023 08:07:14 12/04/19 24 12/06/2023 URINE CULTU RE urine culture colon ies/m L <10,0 00 COLON Y COUNT 10,00 0 - 50,00 0 Day 1 Resul t ISOLA CANDY BELOW Day 2 Resul t ISOLA CANDY BELOW O:GPF M (ORGA NISM ID: 1.1) - GRAM POSIT JARRED LANA ,MIXE D Urine Cultu re (ORGA NISM ID: 1.1) - COLON Y COUNT (ORGA NISM ID: 1.1) - 10,00 0 - 50,00 0 Not Available [address] [place], [address] 12/06/2023 08:07:14 12/08/19 24 12/08/2023 LACTA TE lactate 1.1 mmol/ L 0.6-1. 4 normal Not Available [address] [place], [address] 12/08/2023 16:05:38 12/08/19 24 12/08/2023 LIVER PANEL total protein 8.2 g/dL 6.4-8. 2 normal Not Available [address] [place], [address] 12/08/2023 16:23:42 12/08/19 24 12/08/2023 LIVER PANEL albumin 4.2 g/dL 3.4-5. 0 normal Not Available [address] [place], [address] 12/08/2023 16:23:42 12/08/19 24 12/08/2023 LIVER PANEL bilirubin, total 0.4 mg/dL 0.2-1. 0 normal Not Available [address] [place], [address] 12/08/2023 16:23:42 12/08/19 24 12/08/2023 LIVER PANEL alk phos 91 U/L 46-116 normal Not Available [address] [place], [address] 12/08/2023 16:23:42 12/08/19 24 12/08/2023 LIVER PANEL AST 17 U/L 15-37 normal Not Available Lilian prather [address] [place], [address] 12/08/2023 16:23:42 12/08/19 24 12/08/2023 LIVER PANEL ALT 28 U/L 14-59 normal Not Available Lilian prather [address] [place], [address] 12/08/2023 16:23:42 12/08/19 24 12/08/2023 LIVER PANEL bilirubin, conjugated 0.1 mg/dL 0.0-0. 2 normal Not Available [address] [place], [address] 12/08/2023 16:23:42 12/08/19 24 12/08/2023 COMPR EHENS JARRED METAB OLIC PANEL calcium 9.2 mg/dL 8.5-10 .1 normal Not Available [address] [place], [address] 12/08/2023 16:23:43 12/08/19 24 12/08/2023 COMPR EHENS JARRED METAB OLIC PANEL glucose 83 mg/dL 74-106 normal Not Available Lilian prather [address] [place], [address] 12/08/2023 16:23:43 12/08/19 24 12/08/2023 COMPR EHENS JARRDE METAB OLIC PANEL BUN 11 mg/dL 7-18 normal Not Available Lilian prather [address] [place], [address] 12/08/2023 16:23:43 12/08/19 24 12/08/2023 COMPR EHENS JARRED METAB OLIC PANEL creatinine 0.8 mg/dL 0.55-1 .02 normal Not Available [address] [place], [address] 12/08/2023 16:23:43 12/08/19 24 12/08/2023 COMPR EHENS JARRED METAB OLIC PANEL estimated GFR 99.71 mL/min /1.73m 2 The eGFR is calcu lated from a serum creat inine using the CKD-E PI 2020 equat ion. Other varia bles requi red for the equat ion are gende r and age; this equat ion does not inclu de a race coeff icien t. This equat ion has simil ar overa ll perfo rmanc e to previ ous equat ions excep t value s may diffe r, in parti cular , in patie nts with highe r value s of eGFR and young er-ag ed adult s. Not Available [address] [place], [address] 12/08/2023 16:23:43 12/08/19 24 12/08/2023 COMPR EHENS JARRED METAB OLIC PANEL sodium 142 mmol/ L 136-14 5 normal Not Available [address] [place], [address] 12/08/2023 16:23:43 12/08/19 24 12/08/2023 COMPR EHENS JARRED METAB OLIC PANEL potassium 4.1 mmol/ L 3.5-5. 1 normal Not Available [address] [place], [address] 12/08/2023 16:23:43 12/08/19 24 12/08/2023 COMPR EHENS JARRED METAB OLIC PANEL chloride 106 mmol/ L 98-107 normal Not Available [address] [place], [address] 12/08/2023 16:23:43 12/08/19 24 12/08/2023 COMPR EHENS JARRED METAB OLIC PANEL CO2 25.7 mmol/ L 21.0-3 2.0 normal Not Available [address] [place], [address] 12/08/2023 16:23:43 12/08/19 24 12/08/2023 COMPR EHENS JARRED METAB OLIC PANEL anion gap 10.3 mmol/ L 3-11 normal Not Available [address] [place], [address] 12/08/2023 16:23:43 12/08/19 24 12/08/2023 CREAT INE KINAS E creatine kinase 47 U/L 26-192 normal Not Available Neftali wheatley [address] [place], [address] 12/08/2023 16:23:44 12/08/19 24 12/08/2023 MAGNE SIUM magnesium 2.1 mg/dL 1.8-2. 4 normal Not Available [address] [place], [address] 12/08/2023 16:23:44 12/08/19 24 12/08/2023 C-DARLYN CTIVE PROTE IN C-reactive protein < 0.50 mg/dL <or=0. 5 Not Available [address] [place], [address] 12/08/2023 16:23:45 12/08/19 24 12/08/2023 LIPAS E lipase 42 U/L 16-77 normal Not Available Lilian prather [address] [place], [address] 12/08/2023 16:23:45 12/08/19 24 12/08/2023 TROPO MIKEY I troponin I < 50 NG/L < or =60 Not Available [address] [place], [address] 12/08/2023 16:27:37 12/08/19 24 12/08/2023 PROCA LCITO MIKEY procalcitoni n < 0.1 NG/mL PCT Value (ng/m L): Inter preta tion: <0.5 Low risk for sever e sepsi s/sep tic shock >or=0 .5 and <2.0 Sever e sepsi s/sep tic shock is possi ble >or=2 .0 High risk for sever e sepsi s/sep tic shock Note: Decis ions regar ding antib iotic thera py shoul d NOT be based solel y on proca lcito mikey darius ntrat ions. A proca lcito mikey darius ntrat ion of <0.5 ng/mL does not entir angel exclu de syste guilherme bacte rial infec tion/ sepsi s. Corre latio n with the full clini freddy, imagi ng, and labor atory findi ngs is requi red for a compl ete sepsi s evalu ation . Addit ional ly, eleva kelsi proca lcito mikey darius ntrat ions may not alway s be relat ed to syste guilherme bacte rial infec tion and can be seen in the setti ng of sever e lewis , major traum a, major surge ry, pancr eatit is, bowel ische magen, asept ic syste guilherme shock (anap hylac tic, hemor rhagi c, or cardi ogeni c), renal insuf ficie ncy, medul kiki thyro id cance r, small cell lung cance r, drugs stimu latin g pro-i nflam mator y cytok saad, invas jarred funga l infec tions , Kawas carly disea se, among other cause s. Not Available [address] [place], [address] 12/08/2023 16:38:40 12/08/19 24 12/08/2023 URINA LYSIS color Yellow yellow Not Available Lilian prather [address] [place], [address] 12/08/2023 16:38:42 12/08/19 24 12/08/2023 URINA LYSIS clarity Clear clear Not Available Lilian prather [address] [place], [address] 12/08/2023 16:38:42 12/08/19 24 12/08/2023 URINA LYSIS specific gravity >= 1.030 1.005- 1.025 high Not Available [address] [place], [address] 12/08/2023 16:38:42 12/08/19 24 12/08/2023 URINA LYSIS pH 5.5 5-8 normal Not Available Lilian prather [address] [place], [address] 12/08/2023 16:38:42 12/08/19 24 12/08/2023 URINA LYSIS leukocyte esterase Negati ve negati ve Not Available [address] [place], [address] 12/08/2023 16:38:42 12/08/19 24 12/08/2023 URINA LYSIS nitrite Negati ve negati ve Not Available [address] [place], [address] 12/08/2023 16:38:42 12/08/19 24 12/08/2023 URINA LYSIS protein Negati ve mg/dL neg-tr cal Not Available [address] [place], [address] 12/08/2023 16:38:42 12/08/19 24 12/08/2023 URINA LYSIS glucose Negati ve mg/dL negati ve Not Available [address] [place], [address] 12/08/2023 16:38:42 12/08/19 24 12/08/2023 URINA LYSIS ketones Negati ve mg/dL negati ve Not Available [address] [place], [address] 12/08/2023 16:38:42 12/08/19 24 12/08/2023 URINA LYSIS urobilinogen 0.2 mg/dL up to 0.2 Not Available [address] [place], [address] 12/08/2023 16:38:42 12/08/19 24 12/08/2023 URINA LYSIS bilirubin Negati ve negati ve Not Available [address] [place], [address] 12/08/2023 16:38:42 12/08/19 24 12/08/2023 URINA LYSIS blood Negati ve negati ve Not Available [address] [place], [address] 12/08/2023 16:38:42 01/28/20 24 01/28/2024 VAGIN AL PATHO GEN SCREE N vaginal pathogen screen abnormal Vagin al Patho gen Scree n DUANE DA NEGAT JARRED GARDN ERELL A POSIT JARRED TRICH OMONA S NEGAT JARRED Not Available [address] [place], [address] 01/28/2024 17:47:07 01/28/20 24 01/30/2024 CHLAM YDIA/ GC AMPLI FIED RNA chlamydia result Negati ve negati ve Sourc e:cer vix Test perfo rmed or refer red by [facility] [address] [place] [address] Not Available [address] [place], [address] 01/30/2024 15:39:53 01/28/20 24 01/30/2024 CHLAM YDIA/ GC AMPLI FIED RNA GC result Negati ve negati ve Not Available [address] [place], [address] 01/30/2024 15:39:53 04/13/20 24 04/13/2024 influ elizabeth virus A + B + SARS- CoV-2 (COVI D19) Ag panel , rapid IA, upper respi rator y speci men Influenza A negati ve Not Available [facility] [address], [place], [address], 04/13/2024 10:56:42 04/13/20 24 04/13/2024 influ elizabeth virus A + B + SARS- CoV-2 (COVI D19) Ag panel , rapid IA, upper respi rator y speci men Influenza B negati ve Not Available [facility] [address], [place], [address], 04/13/2024 10:56:42 04/13/20 24 04/13/2024 influ elizabeth virus A + B + SARS- CoV-2 (COVI D19) Ag panel , rapid IA, upper respi rator y speci men SARS-COV-2 negati ve Not Available [facility] [address], [place], [address], 04/13/2024 10:56:42 04/13/20 24 04/13/2024 influ elizabeth virus A + B + SARS- CoV-2 (COVI D19) Ag panel , rapid IA, upper respi rator y speci men Sample sent for PCR confirmation No Not Available [facility] [address], [place], [address], 04/13/2024 10:56:42 11/06/19 24 11/06/2023 CT imagi ng repor t Rajan t Name: Guilherme Arzate Unit #: [id number] Loc: ER Orderi ng Provid er: Reji Martin M.D. t #: [id number] Status : PRE ER Primar y Care Provid er: Reji Cooper Date of Exam: Sex: F : 1989 Age: 33 Exam(s ) a CT:CT abdome n pelvis w Exam(s ) CT ABDOME N PELVIS W EXAM: CT ABDOME N PELVIS W CLINIC AL HISTOR Y: Right lower quadra nt pain TECHNI QUE: Imagin g Protoc ol: Axial comput ed tomogr aphy images with ku l and sagitt al reform atted images were create d and review ed. CONTRA ST MATERI AL: Intrav enous: Omnipa que [address] volume :100 mL Oral: No COMPAR TRISH: CT CT RENAL COLIC WO from [address] CHEST PE ABD PELVIS W from 2022 FINDIN GS: ABDOME N: Lung Bases: Normal where visual ized. Liver: Normal densit y. No measur able mass. Portal , Superi or Mesent priscilla, and Spleni c Veins: Unrema rkable . Gallbl adder and Biliar y Tract: No radiod ense calcul us or dilati on. Pancre as: Normal densit y, no abnorm al calcif icatio ns or inflam matory proces s. Spleen : Normal . Adrena ls: No masses seen. Kidney s: Normal size, contou r and axis. No radiod ense stones or obstru ctive uropat hy. There is a simple left renal cyst. No follow -up is recomm ended. Abdomi nal Aorta: Abdomi nal portio n non-di lated. Bowel: No obstru ction or bowel wall thicke teri. No eviden ce of append icitis . Perito marisela Cavity : No ascite s, collec tion or mesent priscilla inflam matory respon se. No free air. Lymph Nodes: Within normal limits . Bones: Within normal limits for the patien t's age. Soft Tissue s: Unrema rkable . PELVIS : Bladde r: Symmet kisha disten tion, no gross wall thicke teri. Reprod uctive Organs : Right ovaria n cysts are presen t. The larges t measur es 2.2 cm. Lymph Nodes: Within normal limits . Bones: Within normal limits for the patien t's age. IMPRES FLORIAN: 1. No eviden ce of obstru ctive uropat hy or append icitis . 2. No biliar y ductal dilata tion or radiop aque stones . 3. Right ovaria n cysts are presen t. The larges t measur es 2.2 cm. RADIAT ION DOSE DELIVE RED: Total DLP DATA REPOSI TORY: All CT scans at this facili ty are submit kelsi to the Nation al Radiol ogy Data Regist ry (NRDR) Dose Index Regist ry (DIR) with the [place] [employer]ovanny gonz[employer] of Radiol ogy (ACR). RADIAT ION OPTIMI ZATION : All CT scans at this facili ty use at least one of these dose optimi zation techni ques: automa kelsi exposu re contro l; mA and/or kV adjust ment per patien t size (inclu lucio target ed exams where dose is matche d to clinic al indica tion); or iterat jarred recons tructi on. 0328-0 020: Total DLP = 0.00 mGy-cm Ordere d By: Reji Martin M.D. CC: ------ ------ ------ ------ ------ ------ ------ ------ ------ ------ ------ ------ ---- Dictat ed By: Benitez Borrero M.D. [id number] 112 Transc ribed By: Benitez Borrero 112 This is privil eged, confid ential inform ation intend ed only for the provid er named. Any use or distri bution by any person other than this provid er is strict ly prohib ited. If you receiv e this report in error, please notify us immedi jameelly at [phone] and return the origin al report to us at the addres s above. Thank- you. [email or web address] [facility] [address], [place], [address] 11/21/2023 16:45:39 11/26/19 24 11/26/2023 CT imagi ng cheri velez Name: Guilherme Arzate Unit #: [id number] Loc: ER Orderi ng Provid er: Yesenia Roberts DO Accoun t #: [id number] Status : REG ER Primar y Care Provid er: Allison Reji Date of Exam: Sex: F : 1989 Age: 33 Exam(s ) a CT:CT chest PE abd pelvis w Exam(s ) CT CHEST PE ABD PELVIS W EXAM: CT CHEST PE ABD PELVIS W CLINIC AL HISTOR Y: right chest pain with SOB, eval for PE. Ruq pain, pyelo, eval GB and kidney . TECHNI QUE: Imagin g Protoc ol: Axial CT angiog en was perfor med with multi- slice acquis ition and multi- planar and/or 3D recons tructi ons. CONTRA ST MATERI AL: Intrav enous: Omnipa que [address] volume :100 ml COMPAR TRISH: CT CT CHEST PE ABD PELVIS W from [address] ABDOME N PELVIS W from 2023 FINDIN GS: CHEST: Pulmon emmanuel Arteri es: No eviden ce of fillin g defect s to sugges t pulmon emmanuel emboli . Trache obronc hial tree: No bronch iectas is or mucus pluggi ng. Medias tinum and Monse: No domina nt adenop athy or fluid collec tion. Pulmon emmanuel parenc hyma: No consol idatio n or domina nt measur able mass. Pleura : No effusi on. No pneumo thorax . Heart: The heart is notdil ated. No ku ry artery calcif icatio ns are seen. Aorta: Thorac ic aorta non-di lated. Bones: Unrema rkable for age. Tubes, Cathet ers, and Lines: None. Soft tissue s: Unrema rkable . ABDOME N and PELVIS : Liver: Mildly enlarg ed. Normal densit y. No suspic ious measur able mass. Portal , Superi or Mesent priscilla, and Spleni c Veins: Unrema rkable . Gallbl adder and Biliar y Tract: No radiod ense calcul us. No biliar y dilata tion. Pancre as: Normal densit y, no abnorm al calcif icatio ns or inflam matory proces s. Spleen : Normal . Adrena ls: No masses seen. Kidney s: Normal size, contou r and axis. No radiod ense stones . No obstru ctive uropat hy. Stable small left renal cyst. No follow -up recomm ended. Enhanc ement is homoge neous. No eviden ce of p yelone phriti s. No suspic ious masses seen. Vascul ature: Abdomi nal aorta non-di lated. Bowel: No obstru ction or bowel wall thicke teri. Normal quanti ty of stool. No eviden ce of append icitis . Perito marisela Cavity : No ascite s, collec tion or mesent priscilla inflam matory respon se. Lymph Nodes: Within normal limits . Soft Tissue s: Unrema rkable . Bladde r: Mildly disten ded. Diffus e bladde r wall thicke teri. This could indica te cystit is. Reprod uctive Organs : Follic le right ovary. Bones: Unrema rkable for age.. IMPRES FLORIAN: 1. No eviden ce of pulmon emmanuel emboli sm or other acute abnorm ality in the chest. . 2. Diffus e bladde r wall thicke teri which could indica te cystit is. Clinic al correl ation recomm ended. No findin gs to sugges t pyelon ephrit is. RADIAT ION DOSE DELIVE RED: Total DLP DATA REPOSI TORY: All CT scans at this facili ty are submit kelsi to the [facility] al Radiol ogy Data Regist ry (NRDR) Dose Index Regist ry (DIR) with the [place] [facility] Radiol ogy (ACR). RADIAT ION OPTIMI ZATION : All CT scans at this facili ty use at least one of these dose optimi zation techni ques: automa kelsi exposu re contro l; mA and/or kV adjust ment per patien t size (inclu lucio target ed exams where dose is matche d to clinic al indica tion); or iterat jarred recons tructi on. 0417-0 016: Total DLP = 0.00 mGy-cm Ordere d By: Yesenia Roberts DO CC: ------ ------ ------ ------ ------ ------ ------ ------ ------ ------ ------ ------ ---- Dictat ed By: Laura Santiago 1421 Transc ribed By: Elissa Staley 1421 This is privil eged, confid ential inform ation intend ed only for the provid er named. Any use or distri bution by any person other than this [facility] is strict ly prohib ited. If you receiv e this report in error, please notify us immedi ately at [phone] and return the origin al report to us at the addres s above. Thank- you. [email or web address] [facility] [address] [place], [address] 11/29/2023 15:01:22 11/27/19 24 11/27/2023 US, abdom en, limit ed Patien t Name: Guilherme Arzate Unit #: [id number] Loc: DI Orderi ng Provid er: Reji Cooper Accoun t #: [id number] Status : REG CLI Primar y Care Provid er: Reji Cooper Date of Exam: Sex: F Admiss ion Date: : 1989 Age: 33 Exam(s ) US ABDOME N LIMITE D EXAM: US ABDOME N LIMITE D CLINIC AL HISTOR Y: RUQ PAIN,+ HERNANDEZ SIGN,N EG CT TECHNI QUE: Ultras ound abdome n perfor med using standa rd protoc ol. COMPAR TRISH: US US ABDOME N from [address] CHEST PE ABD PELVIS W from 2023 FINDIN GS: PANCRE : Normal where visual ized. LIVER: There is diffus e increa sed echoge nicity of the liver consis tent with fatty infilt ration . There is a 1.3 x 1.8 x 1.9 cm area of hypo echoge nicity in the left lobe of the liver. Hepato petal flow in the Portal Vein. The liver measur es in 20.1 cm length . No eviden ce of a hepati c mass. GALLBL ADDER: No eviden ce of cholel ithias is. No eviden ce of wall thicke teri. No perich olecys tic fluid identi fied. BILIAR Y SYSTEM : Common bile duct measur es < 7 mm. No intrah epatic biliar y ductal dilati on. HERNANDEZ 'S SIGN: Negati ve. RIGHT KIDNEY : Kidney is normal in size. No eviden ce of renal calcul i. No eviden ce of hydron ephros is. No renal mass or cyst identi fied. ASCITE S: None seen. IMPRES FLORIAN: 1. No eviden ce of cholel ithias is or biliar y ductal dilata tion. 2. Hepato megaly and hepati c steato sis. 3. 1.3 x 1.8 x 1.9 cm area of decrea sed echoge nicity in the left lobe of the liver. In light of the fatty infilt ration , this may repres ent of focal fatty sparin g. There is no correl ate seen on the CT scan from the day prior. An MRI of the liver should be consid ered for furthe r evalua tion. Unexpe cted findin DATA REPOSI TORY: Ordere d By: Reji Cooper CC: ------ ------ ------ ------ ------ ------ ------ ------ ------ ------ ------ ------ - Dictat ed By: Benitez Borrero M.D. 832 Transc ribed By: Benitez Borrero 832 This is privil eged, confid ential inform ation intend ed only for the provid er named. Any use or distri bution by any person other than this provid er is strict ly prohib ited. If you receiv e this report in error, please notify us immedi ately at [phone] and return the origin al report to us at the addres s above. Thank- you. [facility] [address] [place], [address] 12/01/2023 10:11:49 12/03/19 24 12/03/2023 NM, hepat obili emmanuel scan, w/ CCK Patien t Name: Guilherme Arzate Unit #: [id number] Loc: DI Orderi ng Provid er: Apolinar Neves M.D. Accoun t #: [id number] Status : REG CLI Primar y Care Provid er: Reji Cooper Date of Exam: Sex: F Admiss ion Date: : 1989 Age: 33 Exam(s ) NM HEPATO BILIAR Y CCK GRP EXAM: NM HEPATO BILIAR Y CCK GRP CLINIC AL HISTOR Y: RUQ AND LUQ PAIN,R 10.11. TECHNI QUE: Inject ed dose: 4.6 mCi Tc-99 mebrof enin Initia l dynami c images : 60 minute s Post-G allbla dder fillin .6 mcg CCK was admini stered accord ing to protoc ol. Additi on images : 20 minute dynami c during CCK admini strati on. COMPAR TRISH: CT CT CHEST PE ABD PELVIS W from 2023 US US ABDOME N LIMITE D from 2023 FINDIN GS: Normal hepati c transi t time. Prompt excret ion into the small bowel. Prompt excret ion into the gallbl adder. The gallbl adder ejecti on fracti on is 91 percen t. IMPRES FLORIAN: 1. Normal examin ation with a normal ejecti on fracti on. SNM guidel saad: Gallbl adder visual izatio n should be presen t by 3 hours. Delaye d biliar y-to-b owel transi t beyond 60 min raises the suspic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 w/ CCK completed [address], [place], [address], 12/12/2023 08:16:05 12/16/2023 MRI imaging report completed [id number] [address] [place], [address] 12/18/2023 17:03:33 Procedure Notes None recorded. Medical Equipment None Reported. Allergies Allergen ID Allergen Name Allergen Category Reaction Reaction Severity Criticality Documentation Date Start Date Code Code System Note Provider Name and Address Organization Details Recorded Time 14146 latex environme nt,medica tion Not available Not available Not available 06/20/20232018 24524 91 RxNorm STACEY Archibald, [facility] 4 17:21:39 80351 nickel environme nt,medica tion Not available Not available Not available 06/20/20232018 14820 29 RxNorm Not Available [facility] 3 16:18:57 82306 tramadol hydrochlo ride medicatio n dizziness moderate Not available 06/20/20232018 52863 RxNorm Dizzi ness Not Available [facility] 3 16:18:57 74424 adhesive tape environme nt,medica tion Not available Not available Not available 06/20/20232018 Not Available [facility] 3 16:18:57 75485 morphine medicatio n other mild Not available 12/24/2023 7052 RxNorm aggre ssion STACEY Archibald, [facility] 4 17:21:30 Medications Name Sig Start Date [...] every 3 months if no period 10/19 josefina Burr Not Available Not Available Not Available [...] Available Abilify 2 mg tablet 08/27 completed YUSRA Not Available Not Available Not Available ferrous [...] mass index (BMI) Body weight Body temperature Respiratory rate Oxygen saturation Oxygen saturation in Arterial blood by Pulse oximetry Heart rate Systolic blood pressure Diastolic blood pressure Provider Name and Address Organization Details Last Updated DateTime 4 160.02 cm 41.8 kg/m2 700263. 8 g 98.3 [degF] 18 /min 99 % 99 % 95 /min 119 mm[Hg] 86 mm[Hg] Taylor House RN [facility], [facility] 4 17:59:14 Date Recorded Body height Body mass index (BMI) Body weight Body temperature Oxygen saturation Oxygen saturation in Arterial blood by Pulse oximetry Heart rate Systolic blood pressure Diastolic blood pressure Provider Name and Address Organization Details Last Updated DateTime 4 160.02 cm 40.9 kg/m2 979775. 84 g 98.4 [degF] 100 % 100 % 92 /min 118 mm[Hg] 74 mm[Hg] ROYER MORTON MA [facility] 4 15:23:13 Date Recorded Body height Body mass index (BMI) Body weight Body temperature Oxygen saturation Oxygen saturation in Arterial blood by Pulse oximetry Heart rate Systolic blood pressure Diastolic blood pressure Provider Name and Address Organization Details Last Updated DateTime 4 160.02 cm 40.5 kg/m2 822776. 93 g 98.1 [degF] 100 % 100 % 89 /min 122 mm[Hg] 82 mm[Hg] ROYER MORTON MA [facility] 4 11:26:58 Date Recorded Body height Body mass index (BMI) Body weight Body temperature Respiratory rate Oxygen saturation Oxygen saturation in Arterial blood by Pulse oximetry Heart rate Systolic blood pressure Diastolic blood pressure Provider Name and Address Organization Details Last Updated DateTime 4 160.02 cm 40.5 kg/m2 783298. 93 g 98.7 [degF] 18 /min 99 % 99 % 87 /min 119 mm[Hg] 84 mm[Hg] Taylor House RN [facility] 4 17:21:55 Date Recorded Body height Body mass index (BMI) Body weight Body temperature Oxygen saturation Oxygen saturation in Arterial blood by Pulse oximetry Heart rate Systolic blood pressure Diastolic blood pressure Provider Name and Address Organization Details Last Updated DateTime 4 160.02 cm 41.8 kg/m2 706325. 52 g 97.3 [degF] 99 % 99 % 82 /min 124 mm[Hg] 68 mm[Hg] ROYER MORTON MA [facility], [facility] 4 10:37:54 Social History Question Answer Notes LastModified by Organizat ion Details LastModified Time Tobacco Smoking Status Never Smoker Kyleigh Correa MA [facility], [facility] 09/16/2023 18:35:57 What Was The Date Of Your Most Recent Tobacco Screening? 12/24/2023 Information not available 12/24/2023 Has Tobacco Cessation Counseling Been Provided? Yes [email or web address] Information not available 09/16/2023 On What Date [...] Recorded Time Tdap 12/24/2017 completed Not Available [facility] 04:07:00 Tdap 06/04/2017 completed Not Available [facility] 04:07:00 Influenza, split virus, quadrivalent, PF 05/10/2019 completed Not Available [facility] 06/20/2023 04:07:01 COVID-19, mRNA, LNP-S, PF, 100 mcg/0.5mL dose or 50 mcg/0.25mL dose 08/28/2020 completed Not Available [facility] 06/20/20 04:07:03 COVID-19, mRNA, LNP-S, PF, 100 mcg/0.5mL dose or 50 mcg/0.25mL dose 09/25/2020 completed Not Available [facility] 06/20/20 04:07:03 SARS-COV-2 (COVID-19) vaccine, UNSPECIFIED 05/14/2022 completed Not Available [facility] 06/20/2023 04:07:04 SARS-COV-2 (COVID-19) vaccine, UNSPECIFIED 07/03/2021 completed Not Available [facility] 06/20/2023 04:07:04 Influenza, split virus, quadrivalent, PF 06/19/2023 completed Not Available [facility] 08/22/2023 05:33:08 Past Encounters Encounter ID Performer Location Encounter Start Date Encounter Closed Date Diagnosis/Indication Diagnosis SNOMED-CT Code Diagnosis ICD10 Code [id number] [facility] [address] [place] [address] 07/15/2023 11:13:43 07/15/2023 12:04:15 Acute upper respiratory infection 21151607 J06.9 Non-alcoho lic fatty liver 598395487 K76.0 Incomplete emptying of urinary bladder 659158589 R39.14 [id number] [facility] [address] [place] [address] 08/07/2023 11:00:50 08/07/2023 11:48:21 Acute upper respiratory infection 74677962 J06.9 [id number] AZRA BAILEY [facility] [address] [place] [address] 09/05/2023 10:38:35 09/05/2023 11:27:04 Exacerbation of intermittent asthma 516764285 J45.21 [id number] [facility] [address] [place] [address] 09/15/2023 09:50:18 09/15/2023 10:41:38 Intermittent asthma 781317590 J45.20 Community acquired pneumonia 965302187 J18.9 [id number] TRISH ANGEL, [address] [place] [address] 09/16/2023 18:17:49 09/16/2023 19:02:31 Exposure to Influenzavirus 253409436 Z20.190 [id number] RICARDO CEDEÑO, [facility] [address] [place] [address] 10/01/2023 11:30:34 10/01/2023 12:29:46 Acute upper respiratory infection 07991562 J06.9 Tight chest 87309984 R07 .89 J06.9 [id number] [facility] [address] [place] [address] 10/20/2023 15:29:06 10/20/2023 16:30:19 Intermittent asthma 109537009 J45.20 Anxiety disorder 8314306 06 F41.9 Recurrent major depression 50406525 F33.9 [id number] [facility] [address] [place] [address] 11/21/2023 16:28:29 11/21/2023 17:03:23 Migraine 47018344 G43.909 Abdominal pain 90810278 R10.9 Loose stool 834619423 R1 9.5 [id number] ADOLFO NEVES MD [address] [place] [address] 11/28/2023 17:48:56 11/28/2023 18:22:07 Right upper quadrant pain 232194942 R10.11 [id number] AZRA BAILEY [facility] [address] [place] [address] 12/05/2023 15:15:15 12/05/2023 16:29:30 Right upper quadrant pain 970748361 R10.11 [id number] AZRA BAILEY [facility] [address] [place] [address] 12/08/2023 11:19:41 12/08/2023 12:28:37 Right upper quadrant pain 601926124 R10.11 Nausea and vomiting 1693 1999 R11.2 [id number] MANJU CASTELLANOS PA-C [address] [place] [address] 12/24/2023 16:44:53 12/24/2023 18:29:03 Cough 71886087 R05.9 [id number] AZRA BAILEY [facility] [address] [place] [address] 04/13/2024 10:28:57 04/13/2024 11:37:05 Non-alcoholic fatty liver 845796907 K76.0 Cough 39822616 R05.9 Exacerbati on of intermittent asthma 275590080 J45.21 Right uppe r quadrant pain 438352813 R10.11 Health Concerns Section Related Observation LastModified by Organization Detai ls LastModified Time None Recorded Concern Status LastModified by Organization Details LastModified Time None Recorded Advance Directives Directive None Recorded Payers Encounter Date Sequence Insurance Name Policy Number Policy Ramos Covered Member ID Ramos Member ID Guarantor Name 11/28/2023 1 [employer] (PPO) Gladys Lopez [id number] Gladys Lopez 12/05/2023 1 [employer]PP[employer]) Gladys Lopez [id number] Gladys Rebeka Lopez 12/08/2023 1 [employer] (PPO) Gladys Lopez [id number] Gladys Lopez 12/24/2023 1 [employer] (PPO) Gladys Staley John [id number] Gladys Staley John 12/24/2023 1 *SELF PAY* Mi arleen Staley John 04/13/2024 1 [place] ([place] PROVIDERS ONLY PPO) [id number] Gladys Lopez [id number] Gladys Rebeka John Notes Date Note Type Note Provider Name and Address Organization Details Recorded Time 11/28/2023 text/html HPI Notes: David lujan comes in with complaints of continued right upper quadrant pain with nausea and some vomiting. symptoms have been going on for several weeks. At this point it does not seem to what she eats, even toast will cause problems. She has had no fevers or chills, early onset loose stools with her normal once again. To date she has had full blood work, 2 CT scans and ultrasound that all been very unrevealing. Ultrasound showed nondescript area of her left lobe of her liver and a mention of consideration of MRI. However both CAT scans were unremarkable. Patient states her sister and mother have had similar symptoms in the past, negative ultrasound and eventual positive HIDA scan resulting in cholecystectomy. ADOLFO NEVES MD [address], [place], [address], [facility], [facility]. 11/28/2023 19:04:46 12/05/2023 text/html HPI Notes: Pt, 3 3-F, here for f/u of RUQ pain. She just had a HIDA scan that was negative for slow transit. She has mulitple family members who have had cholecystectomy.. She jsut had 12/03/2023 Nuclear medicine transit testing which was normal with EF of 91%. Pt. symptoms persist. Had on 11/27/2023 US 3. 1.3 x 1.8 x 1.9 cm area of decreased echogenicity in the left lobe of the liver. In light of the fatty infiltration, this may represent of focal fatty sparing. There is no correlate seen on the CT scan from the day prior. An MRI of the liver should be considered for further evaluation. [address], [place], [address], [facility]. 12/08/2023 11:39:27 12/08/2023 text/html HPI Notes: Pt. 3 3-F, here for acute appointment on this Friday. She was seen Friday in the setting of the same right UQ pain. She has had US, CT, and HIDA scan, none of which had indicated cholecystitis. She did have indeterminant finding on US that wasn't found on CT of a small possible lesion/mass that I ordered the rec'd MRI for. Her pain continued over the weekend and is getting slightly worse. She is taking the 4 mg dose of zofran. NSAIDS are not helping with the pain. She stopped Spironolactone over the weekend as it can have abdominal pain as a side effect as a trial, but this did not improve. She had already stopped sertraline out of the same concern. [address], [place], [address], [facility]. 12/08/2023 12:15:32 12/24/2023 text/html HPI Notes: Kim luu is a 33-year-old female whose had a cough since Doug 5/6, today is now 12/23. She reports it has been dry, she has had increased wheeze. She has been using her Symbicort twice per day per usual and has been using her albuterol inhaler about every 4 hours. When she is not sick she typically does not need her albuterol inhaler. She has done a total of 3 nebulizer treatments during this time of illness. Has had some small relief with this. She has required use of prednisone several times because of her asthma. She tolerates this medication well. She has not had fevers or chills during this illness. No nausea or vomiting. Eating and drink per usual. Denies chest pain. Does feel short of breath. MANJU CASTELLANOS PA-C [address], [place], [address], [facility]. 12/24/2023 18:42:49 04/13/2024 text/html HPI Notes: Pt, 3 4-F, in office today on follow up of [...] pathology. Pt. expressed interest in referral to [facility] at that consult, but I see no [...] asthma and reports feeling wheezy. [address], [place], [address], [facility]. 04/13/2024 12:32:46 OBGyn Episode No OBEpisode recorded.
--- OUTSIDE RECORDS SUMMARY | 2024-04-14 20:36 | XMS_ITS | Encounter Summary ---
Author Organization [facility] Address [address] [place] [address] Care Team Providers Care Sheet Rock Layer Name Role Phone Unknown, Provider Primary Care Provider [phone] Encounter Details Date Type Department Care Team (Late st Contact Info) Description 01/29/2024 Lab Requisition [facility] Pathology & Laboratory Medicine - [facility] [address] [place] [address] Gris Amado MD [facility] [place], [place] [id number] Encounter for other general examination Social History Tobacco Use Types Packs/Day Years Used Date Smoking Tobacco: Former Cigarettes 0.3 10 0 01/02/2004 - 01/01/2014 Smokeless Tobacco: Never Alcohol Use Standard Drinks/Week Comments No 0 (1 standard drink = 0.6 oz pur e alcohol) rare social Interpersonal Safety Answer Date Record ed Physically Hurt Never 03/12/2020 Verbally Threaten Not on file 03/12/2020 Sex and Gender Information Value Date Recorded Sex Assigned at Not on file Gender Identity Not on file Sexual Orientation Not on file documented as of this encounter Functional Status Functional Status Response Date of Assess ment Are you deaf or do you have serious difficulty h earing? No 08/09/2017 Are you blind or do you have serious difficulty seeing, even when wearing glasses? No 08/09/2017 Do you have serious difficul ty walking or climbing stairs? (5 years old or older) No 08/09/2017 Do you have difficulty dress ing or bathing? (5 years old or older) No 08/09/2017 Because of a physical, menta l, or emotional condition, does this person have difficulty doing errands alone such as visiting a doctor's office or shopping? No 10/15/2017 Cognitive Status Response Date of Assessm ent Because of a physical, menta l, or emotional condition, does this person have serious difficulty concentrating, remembering, or making decisions? No 10/15/2017 documented as of this encounter Plan of Treatment Not on file documented as of this encounter Goals Goal Patient Goal Type Associated Problems Recent Progress Patient-Stated? Author Blood Pressure < 130/80 Blood Pressure 118/78(2017 16:01 EDT) No Rina Agosto MD Weight Loss General Yes Rina Agosto MD Note: Goal = 145lbs documented as of this encounter Procedures Procedure Name Priority Date/Time Associated Diagnosis Comments PAP TEST Today 01/28/2024 16:10 EDT Encounter for other general examination HPV DNA DETECTION WITH GENOTYPING, PCR Today 01/28/2024 16:10 EDT Encounter for other general examination documented in this encounter Results * HPV DNA DETECTION WITH GENOTYPING, PCR (01/28/2024 16:10 EDT) HPV other High Risk types, PCR Negative Negative 02/09/2024 16:03 EDT [facility] Comment: The following Other High Risk HPV types were not detected: ??31,33, 35, 39, 45, 51, 52, 56, 58, 59, 66 and 68. HPV High Risk type 16, PCR Negative Negative 02/09/2024 16:03 EDT [facility] HPV High Risk type 18, PCR Negative Negative 02/09/2024 16:03 EDT [facility] Pap Test CERVIX UTERI STRUCTURE / Unknown 01/28/2024 16:10 EDT 02/06/2024 11:27 EDT Gris Amado MD MICROBIOLOGY - GENER AL ORDERABLES [facility] [address] [place] [address] * PAP TEST (01/28/2024 16:10 EDT) Specimens A. Cervix and/or Endocervix , ThinPrep Imaging System with Manual Evaluation 02/09/2024 16:03 EDT [facility] Specimen Adequacy Satisfactory for Evaluation - transformation zone component present 02/09/2024 16:03 EDT [facility] General Categorization Negative for intraepithelial lesion or malignancy 02/09/2024 16:03 EDT [facility] Attestation . 02/09/2024 16:03 T [facility] at 1603 Clinical History SEE BELOW 02/09/20 16:03 EDT [facility] HPV Human Papillomavirus (HPV) Detection-High Risk Types Negative The following Other High Risk HPV types were not detected: 31,33, 35, 39, 45, 51, 52, 56, 58, 59, 66 and 68. HPV High Risk type 16, PCR Negative HPV High Risk type 18, PCR Negative 02/09/2024 16:03 EDT [facility] Performing Lab [facility] 02/09/2024 16:03 T [facility] Scanned Images 02/09/2024 16:03 T [facility] Pap Test CERVIX UTERI STRUCTURE / Unknown 01/28/2024 16:10 EDT 01/29/2024 9:06 EDT Gris Amado MD PATHOLOGY ORDERABLES [facility] [address] [place], [place] [address] documented in this encounter Visit Diagnoses Diagnosis Encounter for other general examination documented in this encounter Care Teams Sheet Rock Layer Relationship Specialty Start Date End Date Unknown, Provider, PCP - General 05/09/21 documented as of this encounter
--- OUTSIDE RECORDS SUMMARY | 2024-04-14 20:36 | XMS_ITS | Encounter Summary ---
Author Organization [facility] Address [address] [place] [address] Care Team Providers Care Welding Machine Operator Electron Beam Name Role Phone Unknown, Provider Primary Care Provider [phone] Encounter Details Date Type Department Care Team (Late st Contact Info) Description 10/21/2019 Lab Requisition [facility] Pathology & Laboratory Medicine - [facility] [address] [place] [address] Unknown, Provider, Social History Tobacco Use Types Packs/Day Years Used Date Smoking Tobacco: Former Cigarettes 0.3 10 0 01/02/2004 - 01/01/2014 Smokeless Tobacco: Never Alcohol Use Standard Drinks/Week Comments No 0 (1 standard drink = 0.6 oz pur e alcohol) rare social Sex and Gender Information Value Date Recorded [...] Procedure Name Priority Date/Time Associated Diagnosis Comments HIV 1/2 ANTIGEN AND ANTIBODY, 4TH GENERATION Routine 10/20/2019 15:10 EDT documented in this encounter Results * HIV 1/2 ANTIGEN AND ANTIBODY, 4TH GENERATION (10/20/2019 15:10 EDT) HIV 1 and 2 Antibody/p24 Antigen, 4th Generation Negative Negative 10/22/2019 11:09 EDT [facility] Comment: If acute HIV-1 infection is suspected in a high risk ??patient, submit plasma specimen for HIV-1 RNA quantitation test. Fourth Generation assay performed on the Siemens Centaur. Blood VENOUS BLOOD / Unknown 10/20/2019 15:10 EDT 10/21/2019 15:59 EDT Provider Unknown IMMUNOLOGY AND SEROL [place] ORDERABLES [facility] [address] [place] [address] documented in this encounter Visit Diagnoses Not on filedocumented in this encounter Care Teams Welding Machine Operator Electron Beam Relationship Specialty Start Date End Date Unknown, Provider, PCP - General 05/09/21 documented as of this encounter
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
--- OUTSIDE RECORDS SUMMARY | 2024-04-14 20:36 | XMS_ITS | Encounter Summary ---
Author Organization [facility] Address [address] [place] [address] Care Team Providers Care Columnist Name Role Phone Unknown, Provider Primary Care Provider [phone] Encounter Details Date Type Department Care Team (Late st Contact Info) Description 10/21/2019 Lab Requisition [facility] Pathology & Laboratory Medicine - [facility] [address] [place] [address] Unknown, Provider, Social History Tobacco Use Types [...] Procedure Name Priority Date/Time Associated Diagnosis Comments SYPHILIS SEROLOGY Routine 10/20/2019 15: 10 EDT documented in this encounter Results * SYPHILIS SEROLOGY (10/20/2019 15:10 EDT) Syphilis Serology Negative Negative 10/22/2019 11:57 EDT [facility] Blood VENOUS BLOOD / Unknown 10/20/2019 15:10 EDT 10/21/2019 15:59 EDT Provider Unknown IMMUNOLOGY AND SEROL OGY ORDERABLES [facility] [address] [place] [address] documented in this encounter Visit Diagnoses Not on filedocumented in this encounter Care Teams Columnist Relationship Specialty Start Date End Date Unknown, Provider, PCP - General 05/09/21 documented as of this encounter
--- OUTSIDE RECORDS SUMMARY | 2024-04-14 20:36 | XMS_ITS | Encounter Summary ---
Author Organization [facility] Address [address] [place] [address] Care Team Providers Care Willow Machine Operator Name Role Phone Unknown, Provider Primary Care Provider [phone] Encounter Details Date Type Department Care Team (Late st Contact Info) Description 03/20/2020 Lab Requisition [facility] Pathology & Laboratory Medicine - [facility] [address] [place] [address] Outr Resulting Lab, Provider Social History Tobacco Use Types Packs/Day Years [...] ANTIBODY, 4TH GENERATION Routine 03/19/2020 15:10 EDT documented in this encounter Results * HIV 1/2 ANTIGEN AND ANTIBODY, 4TH GENERATION (03/19/2020 15:10 EDT) HIV 1 and 2 Antibody/p24 Antigen, 4th Generation Negative Negative 03/21/2020 9:35 EDT [facility] Comment: If acute HIV-1 infection is suspected in a high risk ??patient, submit plasma specimen for HIV-1 RNA quantitation test. Fourth Generation assay performed on the Siemens Centaur. Blood VENOUS BLOOD / Unknown 03/19/2020 15:10 EDT 03/20/2020 15:12 EDT Provider Outr Resulting Lab IMMUNOLOGY A ND SEROLOGY ORDERABLES [facility] [address] [place] [address] documented in this encounter Visit Diagnoses Not on filedocumented in this encounter Care Teams Willow Machine Operator Relationship Specialty Start Date End Date Unknown, Provider, PCP - General 05/09/21 documented as of this encounter
--- OUTSIDE RECORDS SUMMARY | 2024-04-14 20:36 | XMS_ITS | Encounter Summary ---
Author Organization [facility] Address [address] [place] [address] Care Team Providers Care Packager Machine Name Role Phone Unknown, Provider Primary Care Provider [phone] Encounter Details Date Type Department Care Team (Late st Contact Info) Description 02/19/2023 Lab Requisition [facility] Pathology & Laboratory Medicine - [facility] [address] [place] [address] Outr Resulting Lab, Provider Social History Tobacco [...] Procedure Name Priority Date/Time Associated Diagnosis Comments FECAL BACTERIAL PATHOGENS BY PCR Routine 02/18/2023 17:05 EDT GIARDIA AND CRYPTOSPORIDIUM ANTIGENS Routine 02/18/2023 17:05 EDT documented in this encounter Results * GIARDIA AND CRYPTOSPORIDIUM ANTIGENS (02/18/2023 17:05 EDT) Giardia and Cryptosporidium Cryptosporidium Antigen Neg and Giardia Antigen Neg Cryptosporidium Antigen Neg and Giardia Antigen Neg 3 9:51 EDT [facility] Feces SPECIMEN FROM RECTUM / Unknown 02/18/2023 17:05 EDT 02/19/2023 17:33 EDT Provider Outr Resulting Lab MICROBIOLOGY - GENERAL ORDERABLES [facility] [address] [place] [id number] * FECAL BACTERIAL PATHOGENS BY PCR (02/18/2023 17:05 EDT) Salmonella PCR Negative Negative 02/19/2023 22:51 EDT [facility] Shigella/Enteroin vasive E. coli Negative Negative 02/19/2023 22:51 EDT [facility] HN LAB CAMPYLOBACTER PCR Negative Negative 02/19/2023 22:51 EDT [facility] Shiga Toxin PCR Negative Negative 3 22:51 EDT [facility] Feces SPECIMEN FROM RECTUM / Unknown 02/18/2023 17:05 EDT 02/19/2023 17:33 EDT Provider Outr Resulting Lab MICROBIOLOGY - GENERAL ORDERABLES [facility] [address] [place] [address] documented in this encounter Visit Diagnoses Not on filedocumented in this encounter Care Teams Packager Machine Relationship Specialty Start Date End Date Unknown, Provider, PCP - General 05/09/21 documented as of this encounter
--- OUTSIDE RECORDS SUMMARY | 2024-04-14 20:36 | XMS_ITS | Encounter Summary ---
Author Organization [facility] Address [address] [place] [address] Care Team Providers Care Recorder Helper [employer]ity Prospecting Name Role Phone Fiordaliza Hurt MD Primary Care Provider [phone] Encounter Details Date Type Department Care Team (Late st Contact Info) Description 02/16/2019 [facility] [address] [address] [id number] Sujatha Craven MD PhD [address] [place] [address], [address] [place] [id number] Social History Tobacco Use Types Packs/Day Years [...] No 10/15/2017 documented as of this encounter Ordered Prescriptions Prescription Sig Dispensed Refills Start Date End Da te spironolactone (ALDACTONE) 50 mg tablet Take two pills by mouth in the morning (100mg) and one pill by mouth in the evening (50mg) for acne. Do not take if . 90 Tab 4 02/16/2019 11/11/2019 documented in this encounter Progress Notes * Sujatha Craven MD, MD - 02/16/2019 1500 EDT Refilled spironolactone. Sujatha Craven MD 02/16/2019 15:01 documented in this encounter Plan of Treatment Not on file documented as of this encounter Goals Goal Patient Goal Type Associated Problems Recent Progress Patient-Stated? Author Blood Pressure < 130/80 Blood Pressure 118/78(2017 16:01 EDT) No Rina Agosto MD Weight Loss General Yes Rina Agosto MD Note: Goal = 145lbs documented as of this encounter Visit Diagnoses Not on filedocumented in this encounter Discontinued Medications Medication Sig Discontinue Reason Start Date End Da te spironolactone (ALDACTONE) 50 mg tablet Take two pills by mouth in the morning (100mg) and one pill by mouth in the evening (50mg) for acne. Reorder 09/30/2018 02/16/2019 documented as of this encounter Care Teams Recorder Helper [employer]ing Relationship Specialty Start Date End Date Fiordaliza Hurt MD PCP - General 04/06/18 08/16/19 documented as of this encounter
--- OUTSIDE RECORDS SUMMARY | 2024-04-14 20:36 | XMS_ITS | Encounter Summary ---
Author Organization [facility] Address [address] [place] [address] Care Team Providers Care Heel Nailing Machine Operator Name Role Phone Unavailable Primary Care Provider Unavailabl e Reason for Visit * Reason Comments Follow-up spironlactone f/u, f cal is improving Encounter Details Date Type Department Care Team (Late st Contact Info) Description 02/23/2021 9:00 EDT Telemedicine [facility] Dermatology 5th [address] [address] Sujatha Craven MD PhD [address] [facility], [address] [place] [address] Acne vulgaris (Primary Dx); Multiple nevi Social History Tobacco Use Types Packs/Day Years [...] End Da te spironolactone (ALDACTONE) 50 mg tabletIndications:Acne vulgaris Take two pills by mouth in the morning (100mg). Do not take if . 60 Tablet 11 02/23/2021 12/14/2021 documented in this encounter Progress Notes * Lorne Ro MA - 02/23/2021 0900 EDT Review of Systems Constitutional: Positive for fatigue and fever. Negative for unexpected weight change. HENT: Negative for mouth sores. Eyes: Negative for pain. Respiratory: Positive for shortness of breath. Negative for cough. Cardiovascular: Negative for chest pain and palpitations. Gastrointestinal: Negative for abdominal pain, blood in stool, constipation, diarrhea, nausea and vomiting. Genitourinary: Negative for dysuria, frequency and hematuria. Musculoskeletal: Negative for myalgias, joint swelling, arthralgias and muscle stiffness in the morning. Skin: Negative for rash. Neurological: Positive for headaches. Negative for numbness. Endo/Heme/Allergies: Does not bruise/bleed easily. Psychiatric/Behavioral: Negative for sleep disturbance. The patient is not nervous/anxious. LORNE RO MA 02/23/2021 9:09 * Sujatha Craven MD - 02/23/2021 0900 EDT Dermatology Outpatient Visit Note Chief Complaint Patient presents with ??? Follow-up spironlactone f/u, face is improving Dermatologic History: Inflammatory Acne SUBJECTIVE: Ms. Lopez is a 31 y.o. female who presents for acne. She denies breast tenderness or frequent urination. She continues to have baseline menstrual irregularities. Since I last saw he she has been able to decrease her dose to 100mg at night and remain well controlled. Patient reports good kidney function and potassium levels with labwork at [facility]. OBJECTIVE: Focused cutaneous examination was performed. Exam limited by video format. -face clear ASSESSMENT & PLAN: 1. Acne vulgaris -well controlled -continue oral contraceptive pills - spironolactone (ALDACTONE) 50 mg tablet; Take two pills by mouth in the morning (100mg). Do not take if . Dispense: 60 Tablet; Refill: 11 2. Multiple nevi -will schedule full body skin exam FOLLOW UP: Return in about 2 months (around 04/26/2021) for Full body skin exam at [facility] for moles. Sujatha Craven MD 02/23/2021 9:21 Today's visit was provided through telemedicine video conferencing: ??? Patient location: HOME ??? Provider location: Office ??? The following staff participated in today's encounter visit: Sujatha Craven MD The concept of ???Telemedicine?? has been described to the patient.? Patient has been informed of the anticipated benefits and possible risks.? Patient understands the information provided regardingtelemedicine, has had the opportunity to ask questions about this information, and all questions have been answered to patient???s satisfaction. Patient consents for the use of telemedicine in his/her medical care and authorizes the transmission of any relevant medical information to providers and their staff involved in patient???s medical or mental health care. Sujatha Craven MD 02/23/2021 9:22 [facility], Division of Dermatology documented in this encounter Plan of Treatment Not on file documented as of this encounter Goals Goal Patient Goal Type Associated Problems Recent Progress Patient-Stated? Author Blood Pressure < 130/80 Blood Pressure 118/78(2017 16:01 EDT) No Rina Agosto MD Weight Loss General Yes Rina Agosto MD Note: Goal = 145lbs documented as of this encounter Visit Diagnoses Diagnosis Acne vulgaris- Primary Other acne Multiple nevi Benign neoplasm of skin, site unspecified documented in this encounter Discontinued Medications Medication Sig Discontinue Reason Start Date End Da te spironolactone (ALDACTONE) 50 mg tablet Take two pills by mouth in the morning (100mg) and one pill by mouth in the evening (50mg) for acne. Do not take if . Reorder 07/18/2020 02/23/2021 documented as of this encounter Historical Medications * This list may reflect changes made after this encounter. Medication Sig Dispensed Refills Start Date End Date AMOXICILLIN ORAL Take by mouth. added in this encounter
--- OUTSIDE RECORDS SUMMARY | 2024-04-14 20:36 | XMS_ITS | Encounter Summary ---
Author Organization [facility] Address [address] [place] [address] Care Team Providers Care Skein Winder Name Role Phone Unknown, Provider Primary Care Provider [phone] Reason for Visit * Reason Onset Date Comments Medications Refill 12/13/2021 Encounter Details Date Type Department Care Team (Late st Contact Info) Description 12/14/2021 Refill [facility] Dermatology 5th [address] [address] Rosario Hernandez RN Medications Refill Social History Tobacco Use Types Packs/Day Years [...] take if . 60 Tablet 2 12/19/2021 documented in this encounter Miscellaneous Notes * Telephone Encounter - Nawaf Coppola MA - 12/24/2021 1341 EDT Called patient and LM x2 informing the patient that her requested medication has been filled. Additionally, I informed that patient that Dr.Melanie Craven would like to see the patient for a video appointment or in person for future refills. NAWAF COPPOLA MA 12/24/2021 13:41 * Telephone Encounter - Naawf Coppola MA - 12/20/2021 0855 EDT Called patient and LM x1 informing the patient that her requested medication has been filled. Additionally, I informed that patient that Dr.Melanie Craven would like to see the patient for a video appointment or in person for future refills. Thank you. NAWAF COPPOLA MA 12/20/2021 8:57 * Telephone Encounter - Sujatha Craven MD - 12/19/2021 1845 EDT Sent refills. Please offer follow up in person or video. Sujatha Craven MD 12/19/2021 18:45 * Telephone Encounter - Kristie Moura - 12/17/2021 1700 EDT Patient calling to check the status of her refill for Spironolactone. Patient states she will call the office tomorrow morning, 12/18/21 to see if it has been called in. * Telephone Encounter - Nawaf Coppola MA - 12/14/2021 1611 EDT Medication: spironolactone (ALDACTONE) 50 mg tablet Diagnosis: Acne vulgaris Last Office Visit: Next Office Visit: TBS Last Refill: 02/14/21 NAWAF COPPOLA MA 12/14/2021 16:11 * Telephone Encounter - Rosario Hernandez RN - 12/14/2021 1232 EDTFrom: Gladys Lopez To: Office of UNKNOWN,PROVIDERMD Sent: 12/13/2021 17:04 EDT Subject: Medication Renewal Request Refills have been requested for the following medications: spironolactone (ALDACTONE) 50 mg tablet Preferred pharmacy: [id number] documented in this encounter Plan of Treatment Not on file documented as of this encounter Goals Goal Patient Goal Type Associated Problems Recent Progress Patient-Stated? Author Blood Pressure < 130/80 Blood Pressure 118/78(2017 16:01 EDT) No Rina Agosto MD Weight Loss General Yes Rina Agosto MD Note: Goal = 145lbs documented as of this encounter Visit Diagnoses Diagnosis Acne vulgaris- Primary Other acne documented in this encounter Discontinued Medications Medication Sig Discontinue Reason Start Date End Da te spironolactone (ALDACTONE) 50 mg tabletIndications:Acne vulgaris Take two pills by mouth in the morning (100mg). Do not take if . Reorder 02/23/2021 12/14/2021 documented as of this encounter Care Teams Skein Winder Relationship Specialty Start Date End Date Unknown, ProviderMD PCP - General 05/09/21 documented as of this encounter
--- OUTSIDE RECORDS SUMMARY | 2024-04-14 20:36 | XMS_ITS | Encounter Summary ---
Author Organization [facility] Address [address] [place] [address] Care Team Providers Care Motor Equipment Commanding Officer Name Role Phone Unknown, Provider Primary Care Provider [phone] Encounter Details Date Type Department Care Team (Late st Contact Info) Description 06/27/2021 Lab Requisition [facility] Pathology & Laboratory Medicine - [facility] [address] [place] [address] Outr Resulting Lab, Provider Social History Tobacco [...] No 10/15/2017 Cognitive Status Response Date of Assess ent Because of a physical, menta l, [...] Procedure Name Priority Date/Time Associated Diagnosis Comments ZZCOVID-19 TEST [facility] PCR Today 06/27/2021 8:44 EST COVID-19 TESTING Routine 06/27/2021 8:44 EST documented in this encounter Results * COVID-19 TEST [facility] PCR (06/27/2021 8:44 EST) Swab 06/27/2021 8:44 EST 06/27/2021 16:53 EST Provider Outr Resulting Lab MICROBIOLOGY - GENERAL ORDERABLES Performing Organization Address City/State/[facility] Co de Phone Number [facility] [address] [place] [phone] * COVID-19 TESTING (06/27/2021 8:44 EST) COVID-19 rt-PCR Result Negative Negative 06/27/2021 21:08 EST [facility] Comment: This test has not been FDA cleared or approved. This test has been authorized by FDA under an EUA for use by authorized laboratories. This test has been authorized only for detection of nucleic acid from 2019-nCoV, not for any other viruses or pathogens. This test is only authorized for the duration of the declaration that circumstances exist justifying the authorization of emergency use of in vitro diagnostic tests for detection and/or diagnosis of 2019-nCoV under section 564(b)(1) of Act, 21 U.S.C ?? 360bbb-3(b) (1), unless the authorization is terminated or revoked sooner. Negative results do not preclude 2019-nCoV infection and should not be used as the sole basis for treatment or other patient management decisions. Negative results must be combined with clinical observations, patient history, and epidemiological information. Performed on the [employer] Fusion instrument Performing Lab [place] [facility] 06/27/2021 21:08 EST [facility] Swab 06/27/2021 8:44 EST 06/27/2021 16:53 EST Provider Outr Resulting Lab MICROBIOLOGY - GENERAL ORDERABLES [facility] [address] [place] [address] documented in this encounter Visit Diagnoses Not on filedocumented in this encounter Care Teams Motor Equipment Commanding Officer Relationship Specialty Start Date End Date Unknown, Provider, PCP - General 05/09/21 documented as of this encounter
--- OUTSIDE RECORDS SUMMARY | 2024-04-14 20:36 | XMS_ITS | Encounter Summary ---
Author Organization [facility] Address [address] [place] [address] Care Team Providers Care Senior Specialist Name Role Phone Unknown, Provider Primary Care Provider [phone] Encounter Details Date Type Department Care Team (Late st Contact Info) Description 12/01/[address] [facility] Pathology & Laboratory Medicine - [facility] [address] [place] [address] Outr Resulting Lab, Provider Social History Tobacco [...] Procedure Name Priority Date/Time Associated Diagnosis Comments CHLAMYDIA/N. GONORRHOEAE AMPLIFIED NUCLEIC ACID Routine 11/29/2021 14:00 EDT documented in this encounter Results * CHLAMYDIA/N. GONORRHOEAE AMPLIFIED RNA (11/29/2021 14:00 EDT) Neisseria gonorrhoeae Result Negative Negative 12/03/2021 14:40 EDT [facility] Chlamydia trachomatis Result Negative Negative 12/03/2021 14:40 EDT [facility] Swab ENTIRE ENDOCERVIX / Unknown 11/29/2021 14:00 EDT 12/01/2021 22:50 EDT Provider Outr Resulting Lab MICROBIOLOGY - GENERAL ORDERABLES [facility] [address] [place] [address] documented in this encounter Visit Diagnoses Not on filedocumented in this encounter Care Teams Senior Specialist Relationship Specialty Start Date End Date Unknown, Provider, PCP - General 05/09/21 documented as of this encounter
--- OUTSIDE RECORDS SUMMARY | 2024-04-14 20:36 | XMS_ITS | Encounter Summary ---
Author Organization [facility] Address [address] [place] [address] Care Team Providers Care Licensed Prosthetist Name Role Phone Fiordaliza Hurt MD Primary Care Provider [phone] Reason for Visit * Reason Onset Date Comments Medication Management 02/10/2019 Encounter Details Date Type Department Care Team (Late st Contact Info) Description 02/10/2019 Telephone [facility] Dermatology 3rd Floor [facility] [address] [place], [place] [id number] Sujatha Craven MD PhD [address] [facility], [address] [place] [address] Medication Management Social History Tobacco Use Types Packs/Day Years [...] No 10/15/2017 documented as of this encounter Miscellaneous Notes * Telephone Encounter - Kristie Moura - 02/10/2019 1024 EDT Incoming fax regarding prescription for spironolactone (ALDACTONE) 50 mg tablet. Insurance [employer] is requesting a 90 day prescription. Please advise. documented in this encounter Plan of Treatment [...] on filedocumented in this encounter Care Teams Licensed Prosthetist Relationship Specialty Start Date End Date Fiordaliza Hurt MD PCP - General 04/06/18 08/16/19 documented as of this encounter
--- OUTSIDE RECORDS SUMMARY | 2024-04-14 20:36 | XMS_ITS | Encounter Summary ---
Author Organization [facility] Address [address] [place] [address] Care Team Providers Care Fireman Helper Name Role Phone Unknown, Provider Primary Care Provider [phone] Encounter Details Date Type Department Care Team (Late st Contact Info) Description 03/20/2020 Lab Requisition [facility] Pathology & Laboratory Medicine - [facility] [address] [place] [address] Outr Resulting Lab, Provider Social History Tobacco [...] Procedure Name Priority Date/Time Associated Diagnosis Comments HEPATITIS C AB W REFLEX TO HCV RNA BY PCR Routine 03/19/2020 15:10 EDT HEPATITIS B SURFACE ANTIBODY Routine 03/19/2020 15:10 EDT documented in this encounter Results * HEPATITIS B SURFACE ANTIBODY (03/19/2020 15:10 EDT) Hep B Surface Ab, Quantitative 8.5 See Note mIU/mL 03/21/2020 14:03 EDT [facility] Comment: Reference Range for Hep B Surface Ab, Quant: Positive: >= 10.0 mIU/mL Negative: ??< 10.0 mIU/mL Patient is presumed to not be immune to infection with Hepatitis B Virus. Hep B Surface Ab, Qualitative Negative See Note 03/21/2020 14:03 EDT [facility] Comment: Reference Range for Hep B Surface Ab, Qual: Unvaccinated: ??Negative Vaccinated: ??Positive Blood VENOUS BLOOD / Unknown 03/19/2020 15:10 EDT 03/20/2020 15:13 EDT Provider Outr Resulting Lab CHEMISTRY & BLOOD GAS ORDERABLES [facility] [address] [place] [address] * HEPATITIS C AB W REFLEX TO HCV RNA BY PCR (03/19/2020 15:10 EDT) Hep C Antibody Negative Negative 03/21/2020 9:53 EDT [facility] Blood VENOUS BLOOD / Unknown 03/19/2020 15:10 EDT 03/20/2020 15:13 EDT Provider Outr Resulting Lab CHEMISTRY & BLOOD GAS ORDERABLES Performing Organization Address City/State/[facility] Co de Phone Number [facility] [address] [place] [address] documented in this encounter Visit Diagnoses Not on filedocumented in this encounter Care Teams Fireman Helper Relationship Specialty Start Date End Date Unknown, Provider, PCP - General 05/09/21 documented as of this encounter
--- OUTSIDE RECORDS SUMMARY | 2024-04-14 20:36 | XMS_ITS | Referral Summary ---
Author Organization [facility] Address [address] [place] [address] Care Team Providers Care Farm Worker Name Role Phone Unknown, Provider Primary Care Provider Encounters Date Type Department Care Team Description 01/29/2024 Lab Requisition [facility] Pathology & Laboratory [address] [address] Gris Amado MD Encounter for other general examination 01/29/2024 Lab Requisition [facility] Pathology & Laboratory [address] [address] Outr Resulting Lab, Provider from Last 3 Months Allergies Active Allergy Reactions Criticality Noted Date [...] Tab 05/15/2018 Active norethindrone-ethiny l estradiol (JUNEL FE 08/30) 1 mg-20 mcg (21)/75 mg (7) [...] Date Diagnosed Date Sterilization consult 10/01/2017 Overview: [place] tubal consent form signed 10/01/2017 Needs to [...] change her symptoms or improve them - [place] tubal consent form signed at this time, [...] acute 02/22/2017 02/22/2017 BMI 32.0-32.9,adult 07/26/2014 02/28/20 17 Supervision of normal first 07/23/2014 02/27/2017 Immunizations Name Administration Dates Next Due Influenza Vaccine Quad (AFLURIA) PF 0.5 ml IM (3 yrs+) 06/04/2017,05/11/2014 Influenza Vaccine Quad PF 0.5 ml IM (6 mos+) Tdap Vaccine =>7YO IM 06/04/2017 Social History Tobacco Use Types Packs/Day Years [...] Body Mass Index 35.43 04/08/2018 1125 EDT Functional Status Functional Status Response Date of [...] concentrating, remembering, or making decisions? No 10/15/2017 Plan of Treatment Not on file Goals Goal Patient Goal Type Associated Problems [...] Imaging System with Manual Evaluation 02/09/2024 16:03 T [facility] Specimen Adequacy Satisfactory for Evaluation - transformation zone component present 02/09/2024 16:03 EDT [facility] General Categorization Negative for intraepithelial lesion or malignancy 02/09/2024 16:03 T [facility] Attestation . 02/09/2024 16:03 [facility] at 1603 Clinical History SEE BELOW 02/09/20 16:03 T [facility] HPV Human Papillomavirus (HPV) Detection-High Risk Types Negative The following Other High Risk HPV types were not detected: 31,33, 35, 39, 45, 51, 52, 56, 58, 59, 66 and 68. HPV High Risk type 16, PCR Negative HPV High Risk type 18, PCR Negative 02/09/2024 16:03 T [facility] Performing Lab [facility] 02/09/2024 16:03 T [facility] Scanned Images 02/09/2024 16:03 [facility] Pap Test CERVIX UTERI STRUCTURE / Unknown 01/28/2024 16:10 EDT 01/29/2024 9:06 EDT Gris Amado MD PATHOLOGY ORDERABLES [facility] [address] [place] [address] * CHLAMYDIA/N. GONORRHOEAE AMPLIFIED RNA (01/28/2024 16:10 EDT) Neisseria gonorrhoeae Result Negative Negative 01/30/2024 13:31 EDT [facility] Chlamydia trachomatis Result Negative Negative 01/30/2024 13:31 EDT [facility] Swab CERVIX UTERI STRUCTURE / Unknown 01/28/2024 16:10 EDT 01/29/2024 21:55 EDT Provider Outr Resulting Lab MICROBIOLOGY - GENERAL ORDERABLES Performing Organization Address [facility] Co de Phone Number [facility] [address] [place] [address] * HPV DNA DETECTION WITH GENOTYPING, PCR (01/28/2024 16:10 EDT) HPV other High Risk types, PCR Negative Negative 02/09/2024 16:03 EDT [facility] Comment: The following Other High Risk HPV types were not detected: ??31,33, 35, 39, 45, 51, 52, 56, 58, 59, 66 and 68. HPV High Risk type 16, PCR Negative Negative 02/09/2024 16:03 EDT [facility] HPV High Risk type 18, PCR Negative Negative 02/09/2024 16:03 EDT [facility] Pap Test CERVIX UTERI STRUCTURE / Unknown 01/28/2024 16:10 EDT 02/06/2024 11:27 EDT Gris Amado MD MICROBIOLOGY - GENER AL ORDERABLES Performing Organization Address [facility] Co de Phone Number [facility] [address] [place] [address] * HEPATITIS C AB W REFLEX TO HCV RNA BY PCR (03/19/2020 15:10 EDT) Hep C Antibody Negative Negative 03/21/2020 9:53 EDT [facility] Blood VENOUS BLOOD / Unknown 03/19/2020 15:10 EDT 03/20/2020 15:13 EDT Provider Outr Resulting Lab CHEMISTRY & BLOOD GAS ORDERABLES [facility] [address] [place] [address] * HIV 1/2 ANTIGEN AND ANTIBODY, 4TH GENERATION (03/19/2020 15:10 EDT) [facility] HIV 1 and 2 Antibody/p24 Antigen, 4th Generation Negative Negative 03/21/2020 9:35 EDT [facility] Comment: If acute HIV-1 infection is suspected in a high risk ??patient, submit plasma specimen for HIV-1 RNA quantitation test. Fourth Generation assay performed on the Siemens Centaur. Blood VENOUS BLOOD / Unknown 03/19/2020 15:10 EDT 03/20/2020 15:12 EDT Provider Outr Resulting Lab IMMUNOLOGY A ND SEROLOGY ORDERABLES Performing Organization Address City/State/[facility] Co de Phone Number [facility] [address] [place] [address] from Last 3 Months or Most Recently Relevant to Health Maintenance Advance Directives For more information, please contact: [phone] Documents on File Type Date Recorded Patient Police Records Clerk Expl anation Advance Directive 10/23/2017 9:19 APPOINTM [...] the discussion? Not Discusse d Care Teams Farm Worker Relationship Specialty Start Date End Date Unknown, Provider, PCP - General 05/09/21
--- OUTSIDE RECORDS SUMMARY | 2024-04-14 20:36 | XMS_ITS | Encounter Summary ---
[place] [address] Care Team Providers Care Keno Writer / Runner Name Role Phone Unavailable Primary Care Provider Unavailabl e Encounter Details Date Type Department Care Team (Late st Contact Info) Description 06/06/2022 Orders [place] [address] Mahesh Moreno PA [address] TELE-[place] [address] Medication monitoring encounter Social History Tobacco Use Types Packs/Day Years Used Date Smoking Tobacco: Former Smokeless Tobacco: Former Sex and Gender Information Value Date Recorded Sex Assigned at Not on file Gender Identity Not on file Sexual Orientation Not on file documented as of this encounter Plan of Treatment Not on file documented as of this encounter Visit Diagnoses Diagnosis Medication monitoring encounter Encounter for therapeutic drug monitoring documented in this encounter
--- OUTSIDE RECORDS SUMMARY | 2024-04-14 20:36 | XMS_ITS | Encounter Summary ---
[place] [address] Care Team Providers Care Blood Bank Calendar Control Clerk Name Role Phone Unavailable Primary Care Provider Unavailabl e Encounter Details Date Type Department Care Team (Late st Contact Info) Description 11/16/2020 10:30 AM EDT Office Visit [place] [address] Mahesh Moreno PA [address] [place] [address] Positive REILLY (antinuclear antibody) (Primary Dx); Arthralgia, unspecified joint; Medication monitoring encounter Social History Tobacco Use Types Packs/Day Years Used Date Smoking Tobacco: Former Smokeless Tobacco: Former Sex and Gender Information Value Date Recorded Sex Assigned at Not on file Gender Identity Not on file Sexual Orientation Not on file documented as of this encounter Last Filed Vital Signs Vital Sign Reading Time Taken Comments Blood Pressure 119/83 11/16/2020 10:21 AM EDT Pulse 85 11/16/2020 10:21 AM EDT Temperature 36.6 ??C (97.8 ??F) 11/16/2020 10:21 AM E DT Respiratory Rate - - Oxygen Saturation 100% 11/16/2020 10:21 AM EDT Inhaled Oxygen Concentration - - Weight 93.9 kg (207 lb) 11/16/2020 10:21 AM EDT Height 162.6 cm (5' 4) 11/16/2020 10:21 AM EDT Body Mass Index 35.53 11/16/2020 10:21 AM EDT documented in this encounter Patient Instructions * Patient Instructions* Mahesh Moreno PA - 11/16/2020 10:30 AM EDT Labs today documented in this encounter Progress Notes * Mahesh Moreno PA - 11/16/2020 10:30 AM EDTSummary: history of a positive REILLY Rheumatology Outpatient Note Chart review conducted prior to the visit includes review of PMHx, medications, allergies, and prior office notes. The most pertinent findings are listed below. The Patient History Form was reviewed with the patient, which included review of ROS, social hx, pmhx, famhx, current and prior medications, allergies, IZs, and ADLs. The form is scanned into the patient's chart. History of Present Illness: Gladys Lopez is a 30 y.o. female who presents today for evaluation of a history of a positive REILLY without features of connective tissue disease or lupus. She reports since her last visit she discontinued Cymbalta as she ran out of that medication. There is been no fevers infectious-like symptoms she denies any pleuritic-like chest pain. There is been no unusual skin rashes she is overdue forfollow-up with her primary care provider. Intermittently she has some low-grade arthralgias but overall she is coping well. She denies any other changes in her health. She continues to work. She is attended today by her young son. Review of Systems Constitutional: Negative for anorexia, diaphoresis, absenteeism and fever. Respiratory: Negative for cough, shortness of breath, chest discomfort and hemoptysis. Gastrointestinal: Negative for abdominal discomfort, vomiting, GERD, constipation and nausea. HENT: Negative. Psychiatric/Behavioral: Negative for social aversion. Hematologic/Lymphatic: Negative. Musculoskeletal: Negative. Endocrine: Negative for polydipsia, polyphagia, polyuria and Cushingoid appearance. Cardiovascular: Negative. Neurological: Negative for hearing loss. Skin: Negative for urticaria, blister and photosensitivity. Allergies Allergies Allergen Reactions ??? Latex, Natural Rubber Rash ??? Adhesive Rash ??? Morphine Nausea And Vomiting Morphine caused patient to feel very aggressive ??? Nickel Other (See Comments) ??? Tramadol Nausea Only Dizziness Medications Current Outpatient Medications on File Prior to Visit Medication Sig Dispense Refill ??? montelukast (Singulair) 10 mg Tablet 10 mg daily. ??? acetaminophen (Tylenol) 325 mg Tablet Take 650 mg by mouth Every 4 hours as needed. ??? albuteroL 90 mcg/actuation HFA Aerosol Inhaler Inhale 1 puff into the lungs Every 4 hours as needed. ??? fluticasone propionate (FLOVENT) 110 mcg/actuation HFA Aerosol Inhaler Inhale 1 puff into the lungs Every 12 hours. ??? ibuprofen (Advil;Motrin) 400 mg Tablet Take 400 mg by mouth Every 4 hours as needed. ??? propranoloL (Inderal) 20 mg Tablet Take 20 mg by mouth Daily. ??? spironolactone (ALDACTONE) 50 mg Tablet 2 times daily. ??? DULoxetine DR (Cymbalta) 20 mg Capsule, Delayed Release(E.C.) TAKE ONE CAPSULE BY MOUTH EVERY DAY ??? UNKNOWN TO PATIENT Recently prescribed medication for endometriosis No current facility-administered medications on file prior to visit. PMHX There is no problem list on file for this patient. SurgHX No past surgical history on file. Family Hx: No family history on file. Social Hx: Social History Socioeconomic History ??? Marital status: Spouse name: None ??? Number of children: None ??? Years of education: None ??? Highest education level: None Occupational History ??? None Tobacco Use ??? Smoking status: Former Smoker ??? Smokeless tobacco: Former User Substance and Sexual Activity ??? Alcohol use: None ??? Drug use: None ??? Sexual activity: None Other Topics Concern ??? None Social History Narrative ??? None Social Determinants of Health Financial Resource Strain: ??? Difficulty of Paying Living Expenses: Food Insecurity: ??? Worried About Running Out of Food in the Last Year: ??? Ran Out of Food in the Last Year: Transportation Needs: ??? Lack of Transportation (Medical): ??? Lack of Transportation (Non-Medical): Physical Activity: ??? Days of Exercise per Week: ??? Minutes of Exercise per Session: Stress: ??? Feeling of Stress : Social Connections: ??? Frequency of Communication with Friends and Family: ??? Frequency of Social Gatherings with Friends and Family: ??? Attends [employer] Services: ??? Active Member of Clubs or Organizations: ??? Attends Club or Organization Meetings: ??? Marital Status: Intimate Partner Violence: ??? Fear of Current or Ex-Partner: ??? Emotionally Abused: ??? Physically Abused: ??? Sexually Abused: Physical Examination: BP 119/83 Pulse 85 Temp 36.6 ??C (97.8 ??F) (Temporal) Ht 162.6 cm (5' 4) Wt 93.9 kg (207 lb) SpO2 100% BMI 35.53 kg/m?? Physical Exam Constitutional: General: She is not in acute distress. Appearance: Normal appearance. She is normal weight. She is not ill-appearing, toxic-appearing or diaphoretic. HENT: Head: Normocephalic and atraumatic. Right Ear: External ear normal. Left Ear: External ear normal. Nose: Nose normal. Eyes: General: No scleral icterus. Right eye: No discharge. Left eye: No discharge. Conjunctiva/sclera: Conjunctivae normal. Cardiovascular: Rate and Rhythm: Normal rate and regular rhythm. Pulses: Normal pulses. Heart sounds: No friction rub. No gallop. Pulmonary: Effort: Pulmonary effort is normal. No respiratory distress. Breath sounds: Normal breath sounds. No stridor. No wheezing, rhonchi or rales. Chest: Chest wall: No tenderness. Abdominal: Palpations: Abdomen is soft. Tenderness: There is no abdominal tenderness. There is no guarding or rebound. Hernia: No hernia is present. Musculoskeletal: General: No swelling, tenderness, deformity or signs of injury. Normal range of motion. Right lower leg: No edema. Left lower leg: No edema. Skin: General: Skin is warm and dry. Capillary Refill: Capillary refill takes less than 2 seconds. Findings: No bruising or lesion. Neurological: Mental Status: She is alert and oriented to person, place, and time. Motor: No weakness. Gait: Gait normal. Psychiatric: Mood and Affect: Mood normal. Thought Content: Thought content normal. Judgment: Judgment normal. Laboratory Data: Component Latest Ref Rng & Units 07/18/2020 25-OH Vit D Total 21 - 100 ng/mL 40 25-OH Vit D Interp Sufficient Calcium 8.5 - 10.5 mg/dL 9.7 PTH 15 - 65 pg/mL 27 C3 Complement 90 - 180 mg/dL 164 DNA Ab (DS) Neg Neg C4 Complement 10 - 40 mg/dL 27 ANDREA Ab Test Result Flag Unit RefValue . . . Impression/Recommendations : Gladys Lopez is a 30 y.o. female who presents today with a history of a positive REILLY without features of connective tissue disease or lupus. Patient has been doing better since her initial visitin July 2020. She is no longer taking Cymbalta and is uncertain if that was significantly helpful with any of her symptoms of joint pain or soft tissue tenderness. As part of routine follow- up wewill repeat her REILLY today. Any changes pending a review of her laboratory studies. .Will see her again in follow up in 12 months , sooner for any changes patient in agreement with this plan. documented in this encounter Plan of Treatment Not on file documented as of this encounter Procedures Procedure Name Priority Date/Time Associated Diagnosis Comments [facility] ANATITRE (ANDPATTERN) Routine 11/16/2020 11:15 AM EDT Positive REILLY (antinuclear antibody) documented in this encounter Results * (ABNORMAL) REILLY ([facility]/CGP/APD/NLH) (11/16/2020 11:15 AM EDT) REILLY Ab Screen Test ?Result ? Flag ??Unit ??RefValue Antinuclear Ab, HEp-2 Substrate, ?Positive 1:160 ??@ ?<1:80 (Negative) ??S ? ADDITIONAL INFORMATION --------- ?Method: Immunofluorescence using HEp-2 cellular substrate. ??REILLY Titer: ?1:160 ??REILLY Pattern: ?Speckled ?Test Performed by: ?[facility] ?[address] [place] [address] ?Tobacco Educator: Luiz Kumari M.D. Ph.D.; CLIA# [id number] ([id number]) [facility] Blood specimen (specimen) 11/16/2020 11:15 AM EDT 11/16/2020 2:40 PM EDT Narrative Resulting Agency Comment Spec In Lab Luiz Abdi MD LAB SEND OUT ORDERAB LES [facility] [place] [address] documented in this encounter Visit Diagnoses Diagnosis Positive REILLY (antinuclear antibody)- Primary Other and unspecified nonspecific immunological findings Arthralgia, unspecified joint Medication monitoring encounter Encounter for therapeutic drug monitoring documented in this encounter
--- OUTSIDE RECORDS SUMMARY | 2024-04-14 20:36 | XMS_ITS | Encounter Summary ---
Author Organization [facility] Address [address] [place] [address] Care Team Providers Care Counseling Specialist Name Role Phone Unavailable Primary Care Provider Unavailabl e Reason for Visit * Reason Onset Date Comments Medications Refill 11/11/2019 Encounter Details Date Type Department Care Team (Late st Contact Info) Description 11/11/2019 Refill [facility] Dermatology 3rd Floor [address] [address] Sujatha Craven MD PhD [address] [place] [address], [address] [place] [id number] Medications Refill Social History Tobacco Use Types [...] not take if . 90 Tab 4 11/11/2019 07/17/2020 documented in this encounter Miscellaneous Notes * Telephone Encounter - Zoë Hein - 11/11/2019 1023 EDT Patient called requesting medication refill. [facility] is preferred pharmacy. Confirmed contact: [phone] Last visit: 09/29/18 No visits scheduled documented in this encounter Plan of Treatment [...] acne. Do not take if . Reorder 02/16/2019 11/11/2019 documented as of this encounter
--- OUTSIDE RECORDS SUMMARY | 2024-04-14 20:36 | XMS_ITS | Encounter Summary ---
Author Organization [facility] Address [address] [place] [address] Care Team Providers Care Crusher Wet Ground Mica Name Role Phone Fiordaliza Hurt MD Primary Care Provider [phone] Reason for Visit * Reason Onset Date Comments Appointment Related 03/25/2019 Encounter Details Date Type Department Care Team (Late st Contact Info) Description 03/25/2019 Telephone [facility] Dermatology 3rd Floor [facility] [address] [place], [place] [id number] Sujatha Craven MD PhD [address] [facility], [address] [place] [address] Appointment Related Social History Tobacco Use Types Packs/Day Years [...] encounter Miscellaneous Notes * Telephone Encounter - Doni Quintero - 03/25/2019 1339 EDT Spoke with Patient; she needs a follow up for acne scheduled with Dr. Craven; she stated she will needto call us back to setup an appointment. When she calls please offer her an available FUR or ERA inearly-mid April with Dr. Craven. Doin Quintero 03/25/2019 13:40 documented in this encounter Plan of Treatment [...] on filedocumented in this encounter Care Teams Crusher Wet Ground Mica Relationship Specialty Start Date End Date Fiordaliza Hurt MD PCP - General 04/06/18 08/16/19 documented as of this encounter
--- OUTSIDE RECORDS SUMMARY | 2024-04-14 20:36 | XMS_ITS | Encounter Summary ---
Author Organization [facility] Address [address] [place] [address] Care Team Providers Care Syrup Mixer Name Role Phone Unknown, Provider Primary Care Provider [phone] Encounter Details Date Type Department Care Team (Late st Contact Info) Description 11/26/[address] [facility] Pathology & Laboratory Medicine - [facility] [address] [place] [address] Unknown, Provider, Social History Tobacco Use Types [...] Procedure Name Priority Date/Time Associated Diagnosis Comments QUANTIFERON TB GOLD PLUS Routine 11/25/2019 16:10 EDT documented in this encounter Results * QUANTIFERON TB GOLD PLUS (11/25/2019 16:10 EDT) [facility] Quantiferon Interpretation Negative Negative 11/30/2019 13:27 EDT [facility] Comment: No interferon-gamma response to M. tuberculosis antigens was detected. ??Infection with M. tuberculosis is unlikely. A single negative result does not exclude infection with M. tuberculosis. ??In patients at high risk for M. tuberculosis infection, a second test should be considered in accordance with the 2017 ATS/IDSA/CDC Clinical Practice Guidelines for Diagnosis of Tuberculosis in Adults and Children. [Hermes PAZ et. al. Clin. Infect. Dis. 2017:64 (2) ??: 111-115]. Results were obtained with the Qiagen QuantiFERON TB Gold Plus SHEREEN. TB1 Ag minus Nil 0.01 IU/ml 11/30/19 20 13:27 EDT [facility] TB2 Ag minus Nil 0.01 IU/mL 11/30/19 20 13:27 T [facility] Blood VENOUS BLOOD / Unknown 11/25/2019 16:10 EDT 11/26/2019 15:19 EDT Narrative [facility] - 11/30/2019 13:27 EDT Results were obtained with the [employer]agen QuantiFERON-TB Gold Plus SHEREEN. Provider Unknown CHEMISTRY & BLOOD GA S ORDERABLES [facility] [address] [place] [address] documented in this encounter Visit Diagnoses Not on filedocumented in this encounter Care Teams Syrup Mixer Relationship Specialty Start Date End Date Unknown, Provider, PCP - General 05/09/21 documented as of this encounter
--- OUTSIDE RECORDS SUMMARY | 2024-04-14 20:36 | XMS_ITS | Encounter Summary ---
Author Organization [facility] Address [address] [place] [address] Care Team Providers Care Planer Offbearer Name Role Phone Fiordaliza Hurt MD Primary Care Provider [phone] Encounter Details Date Type Department Care Team (Late st Contact Info) Description 12/02/2018 Results Only [facility] [phone] Blossom Pelletier, CELIA [address] [facility] [address] [place], [place] [id number] Social History Tobacco Use Types Packs/Day Years [...] Name Priority Date/Time Associated Diagnosis Comments PAP TEST- RESULT ONLY Routine 12/02/2018 0:00 EDT documented in this encounter Results * PAP TEST- RESULT ONLY (12/02/2018 0:00 EDT) Pathology Report: CYTOPATHOLOGY REPORT Reports generated via electronic interface contain original data; however they are lacking the format of the original report. Caution should be taken when reading/interpreti ng unformatted reports. Name: ? GLADYS RENO ? Accession #: ? [id number] : ? 1990 (Age: 28) ??F ?Collect Date: ? 12/02/2018 Location: ? [facility] ? Receive Date: ? 12/04/2018 Provider: ?MACEY MARTE DNP Copy to: ?MACEY MARTE DNP ? Specimen/Source: ?Pap Test, Cervix, ThinPrep Imaging System with manual evaluation Last Menstrual Period: ? Hormonal/Contracep tive Status: ? None Other: ? Additional clinical information: Z00.00 Z12.4 Z11.51 ? SPECIMEN ADEQUACY ? Satisfactory for Evaluation - transformation zone component present GENERAL CATEGORIZATION ? Negative for Intraepithelial Lesion or Malignancy INTERPRETATION ? Shift in cristine present suggestive of bacterial vaginosis. ? Document reviewed and electronically signed by: ? Jennifer Cortez, GREGOR(ASCP) ? Report Date: ??12/08/2018 15:00 End of Report [facility] 12/02/2018 12/04/2018 Macey Marte DNP PATHOLOGY ORDERAB LES [facility] [address] [place] [address] documented in this encounter Visit Diagnoses Not on filedocumented in this encounter Care Teams Planer Offbearer Relationship Specialty Start Date End Date Fiordaliza Hurt MD PCP - General 04/06/18 08/16/19 documented as of this encounter
--- OUTSIDE RECORDS SUMMARY | 2024-04-14 20:36 | XMS_ITS | Encounter Summary ---
Author Organization [facility] [facility] [place] [address] Care Team Providers Care Core Blower Operator Name Role Phone Unavailable Primary Care Provider Unavailabl e Encounter Details Date Type Department Care Team (Latest Contact Info) Description 06/19/2020 10:58 PM EST - 06/19/2020 11:59 PM EST Hospital Encounter Laboratory [facility] [place] [address] Discharge Disposition: Home Social History Tobacco Use Types Packs/Day Years Used Date Smoking Tobacco: Never Assessed Sex and Gender Information Value Date Recorded Sex Assigned at Not on file Gender Identity Not on file Sexual Orientation Not on file documented as of this encounter Medications at Time of Discharge Medication Sig Dispensed Refills Start Date End Date montelukast (Singulair) 10 mg Tablet 10 mg daily. 05/22/2020 acetaminophen (Tylenol) 325 mg Tablet Take 650 mg by mouth Every 4 hours as needed. 08/12/2017 albuteroL 90 mcg/actuation HFA Aerosol Inhaler Inhale 1 puff into the lungs Every 4 hours as needed. 09/10/2017 fluticasone propionate (FLOVENT) 110 mcg/actuation HFA Aerosol Inhaler Inhale 1 puff into the lungs Every 12 hours. 09/10/2017 ibuprofen (Advil;Motrin) 400 mg Tablet Take 400 mg by mouth Every 4 hours as needed. 08/12/2017 propranoloL (Inderal) 20 mg Tablet Take 20 mg by mouth Daily. 09/10/2017 spironolactone (ALDACTONE) 50 mg Tablet 2 times daily. 11/11/2019 documented as of this encounter Plan of Treatment Not on file documented as of this encounter Procedures Procedure Name Priority Date/Time Associated Diagnosis Comments COVID-19 PCR Routine 06/19/2020 2:26 PM EST documented in this encounter Results * COVID-19 PCR (06/19/2020 2:26 PM EST) SARS-CoV-2 RNA Not Detected Not Detected [facility] Comment: This result should be interpreted in combination with the clinical observations, patient history and epidemiological information in making a final diagnosis. For testing of asymptomatic individuals, assay performance characteristics and clinical utility have not been evaluated. Testing for SARS-CoV-2 (Severe acute respiratory syndrome coronavirus 2, formerly known as 2019 novel coronavirus or 2019-nCoV) to aid in the diagnosis of COVID-19 is performed using the [employer] m SARS-CoV-2 Assay as authorized by the FDA Emergency Use Authorization (EUA). This EUA assay is intended for In-vitro Diagnostic (IVD) use with respiratory specimens such as nasopharyngeal swabs collected from individuals during the acute phase of infection. This assay is performed based on the instructions for use provided by [employer], [employer]. and additional guidance provided by CDC and FDA. Testing is performed in the [facility] within the Department of Pathology and Laboratory Medicine at [facility], certified under the Clinical Laboratory Improvement Amendments of 1988 (CLIA), 42 U.S.C. 263a, to perform high complexity tests. Assay performance has been verified according to clinical laboratory regulatory requirements for use with specimens collected from individuals suspected of COVID-19. Test results are provided above. A result of ? Not Detected? indicates that the viral RNA target is not present above the limit of detection, but does not preclude SARS-CoV-2 infection. False negative results may occur if a specimen is improperly collected, transported or handled; if amplification inhibitors are present; or if inadequate numbers of viral particles are present in the specimen. When a diagnostic test is negative, the possibility of a false negative result should be considered in the context of a patient? s recent exposures and the presence of clinical signs and symptoms consistent with COVID-19. A result of ? Detected? indicates that RNA from SARS-CoV-2 was detected and the patient is infected. As required or requested by public health authorities, positive specimens may be sent for additional testing. Positive and negative predictive values for this test are highly dependent on disease prevalence. A result of ? Invalid? indicates that neither the viral RNA targets nor the internal control target was detected. An invalid result suggests the presence of inhibitors. Recollection and re-testing is recommended in the case of an invalid result. CDC COVID-19 criteria for testing on human specimens and clinical management guidance information are available at the CDC Coronavirus Disease 2019 (COVID-19) webpage under ? Information for Healthcare Professionals? (https://www.cdc.gov/coronavirus/2019-ncov/hcp/index.html) Additional information about this and other EUA tests can be found in provider and patient fact sheets at the following FDA website: https://www.fda.gov/medical-devices/spodveaooar-dgdaxbn-3523-gidbc-07-aairaxmgt- use-a houptywntdkgn-nblmxuq-ktnmsrn/activ-mumqjeyoyrf-ktrj SARS-CoV-2 RNA Source Nasal [facility] Specimen from nose (specimen) Other / Unknown 06/19/2020 2:26 PM EST 06/21/2020 1:09 AM EST Narrative Resulting Agency Comment Spec In Lab Zaid Thomas APRN MOLECULAR ORDERABLES Performing Organization Address City/State/[facility] Co de Phone Number [facility] [place] [address] documented in this encounter Visit Diagnoses Not on filedocumented in this encounter
--- OUTSIDE RECORDS SUMMARY | 2024-04-14 20:36 | XMS_ITS | Encounter Summary ---
[place] [address] Care Team Providers Care Landscape Crew Leader Name Role Phone Unavailable Primary Care Provider Unavailabl e Reason for Visit * Consultation (Routine) - Specialty Diagnoses / Procedures Referred By Gregory t Referred To Contact Rheumatology Diagnoses Myalgia, unspecified site Cramp and spasm Arley Marte, DNP [address] [place] [address] [facility] [address] [place] [id number] Referral ID Status Reason Start Date Expiration Date V isits Requested Visits Authorized [id number] Consult, [facility] PCP Updated and/or Approved 06/30/2020 12/28/2020 6 6 Encounter Details Date Type Department Care Team (Late st Contact Info) Description 07/18/2020 1:00 PM EST Office [place] [phone] Mahesh Moreno PA [address] [place] [address] Arthralgia, unspecified joint (Primary Dx); Positive REILLY (antinuclear antibody) Social History Tobacco Use Types Packs/Day Years Used Date Smoking Tobacco: Former Smokeless Tobacco: Former Sex and Gender Information Value Date Recorded Sex Assigned at Not on file Gender Identity Not on file Sexual Orientation Not on file documented as of this encounter Last Filed Vital Signs Vital Sign Reading Time Taken Comments Blood Pressure 132/84 07/18/2020 12:54 PM EST Pulse 103 07/18/2020 12:54 PM EST Temperature 36.6 ??C (97.8 ??F) 07/18/2020 12:[address] Respiratory Rate - - Oxygen Saturation 100% 07/18/2020 12:54 PM EST Inhaled Oxygen Concentration - - Weight 90.3 kg (199 lb) 07/18/2020 12:54 PM EST Height 162.6 cm (5' 4) 07/18/2020 12:54 PM EST Body Mass Index 34.16 07/18/2020 12:54 PM EST documented in this encounter Patient Instructions * Patient Instructions* Mahesh Moreno PA - 07/18/2020 1:00 PM EST What is Fibromyalgia (FMS) ? A clinical syndrome of widespread muscle pain Affects as many as 1 in 30 Americans Most common in middle-aged women Men and children also get the disorder More likely with: Rheumatoid arthritis, lupus Runs in families - If patient has a close relative with fibromyalgia (mother, father, child, brother, sister) there is an 8 times higher chance of you developing the disorder as well Symptoms Triggers ??? Sleep problems ??? Fatigue ??? Memory and Concentration Problems ??? Headaches ??? Dry eyes and mouth ??? Swelling in the hands ??? Numbness/tingling in arms and legs ??? Irritable bladder ??? Irritable bowel syndrome ??? Increased sensitivity to touch, lights, sounds, smells ??? Trauma in sign painter ??? Other pain syndromes (RA, Lupus, OA) ??? Physical trauma ??? car accidents ??? surgery ??? Infection ??? Stress ??? Depression - can develop and should be treated ??? Central pain sensitization - ordinary sensations start to hurt Nonpharm tx ??? Exercise - Gradually and regularly often decreases symptoms. ??? Walking, Swimming, Biking, and water aerobics ??? Physical Therapy ??? Pace yourself: Don???t do too much on a good day ??? Eat well and maintain a healthy lifestyle ??? Eat healthy foods - No ???magic?? diet but think about avoiding the following foods and ingredients associated with fatigue (High Fat, Refined Sugars, White Flour, Fried Goods, Alcohol, Caffeine, ???Junk Foods?? , and Salts) ??? Stop smoking ??? Limit Alcohol intake ??? Get enough sleep ? ? Go to bed and get up at the same time each day & limit daytime napping. ??? Stress Management ??? Develop a plan to limit overexertion and emotional stress ??? Allow time each day to relax, Do something you enjoy everyday What about Medicine? Limited role compared to other treatments ??? Improvement in sleep quality ??? Pain relievers ??? Muscle relaxants ??? Treatment of underlying conditions like arthritis, thyroid conditions ??? Treatment of associated sleep problems like restless legs, sleep apnea Medications in Fibromyalgia Strong Evidence ???A list?? Amitriptyline (Elavil) 25-50 mg at bedtime Cyclobenzaprine (Flexeril) 10-30 mg / bedtime Pregabalin (Lyrica) 450 mg/day Gabapentin(Neurontin) 8456-9755 mg/day Duloxetine (Cymbalta) 60-120 mg/day Milnacipran (Savella) 100-200 mg/day Modest Evidence: ???B List?? Tramadol 200-300 mg/day SSRI???s (Fluoxetine, Sertraline) No Evidence Opioids (Narcotics) Ibuprofen, Naproxen Valium, Ativan, Xanax Alternative Therapies: Acupuncture, massage, yoga, serbian nellie Tools and Resources ??? Education: support groups, reading, web-based information, this appointment ??? Cognitive behavioral therapy - learning tools to live despite pain and to help you feel in control of your condition ??? Family and Social Support ??? [email or web address].org/arthritis-facts/disease-center/fibromyalgia.php documented in this encounter Progress Notes * Mahesh Moreno PA - 07/18/2020 1:00 PM ESTSummary: History of positive REILLY Rheumatology Outpatient Consultation Note Reason for Consult: The patient is seen at the request of Dr. Arley Marte APRN for evaluationand treatment of Chart review conducted prior to the visit [...] female who presents today for evaluation of history of positive REILLY and arthralgias. Unfortunately patient reports that she is in pain all of the time. She does not seem to get much relief despite multiple interventions. She was found by her primary care provider to have a positive REILLY and is here today for additional evaluation. Patient reports that she had blood work today at [facility]. She tells me in the morning she is very sore. Sometimes early in the morning before she gets up shegets night sweats. Because of these arthralgias she was started on Cymbalta which at first made her lightheaded dizzy but her stiffness was better on Cymbalta so she thinks it helps a little but not much. Prior to being on Cymbalta when touched by even children she reports her skin hurts and she was crying a lot. Because of the ongoing pain she takes ibuprofen and Tylenol both of which does not help. She intermittently gets migraine headaches for which she sees neurology and they attempt to treat those symptoms with varying success per the patient. She follows with [facility] cardiology and sees her primary care provider because of a history of recurrent pericarditis she has had this apparently 3 times utilizing as needed ibuprofen. She reports her EKG never shows the changes of pericarditis. 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 There is been no recent episodes of pericarditis, PVCs, she denies hair loss any current pleuritic-like chest pain, oral ulcers, she reports irritable bowel syndrome. She denies any red warm swollen joints. She has had no miscarriages. She reports no joint deformity. There is been no unusual skin rashes. Review of Systems Constitutional: Positive for malaise/fatigue. Negative for anorexia, diaphoresis, absenteeism, fever and weight loss. Respiratory: Negative for cough, shortness of breath, chest discomfort, wheezing and pleuritic pain. Gastrointestinal: Negative. HENT: Positive for postnasal drip. Negative for throat clearing, sinus pressure, hoarse voice and ear pain. Psychiatric/Behavioral: Negative for social aversion. Hematologic/Lymphatic: Negative. Allergic/Immunologic: Negative for immunocompromised state. Musculoskeletal: Positive for joint pain and myalgias. Negative for stiffness, joint swelling and fracture. Endocrine: Negative for polydipsia, polyphagia, polyuria and Cushingoid appearance. Cardiovascular: Negative for near-syncope, syncope and leg edema. Neurological: Positive for headaches. Negative for vertigo and hearing loss. Skin: Negative for urticaria, blister, photosensitivity, erythema and nodules. Allergies Allergies Allergen Reactions ??? Latex, Natural Rubber Rash ??? Adhesive Rash ??? Morphine Nausea And Vomiting Morphine caused patient to feel very aggressive ??? Nickel Other (See Comments) ??? Tramadol Nausea Only Dizziness Medications Current Outpatient Medications on File Prior to Visit Medication Sig Dispense Refill ??? montelukast (Singulair) 10 mg Tablet 10 mg daily. ??? DULoxetine DR (Cymbalta) 20 mg Capsule, Delayed Release(E.C.) TAKE ONE CAPSULE BY MOUTH EVERY DAY ??? acetaminophen (Tylenol) 325 mg Tablet Take [...] 50 mg Tablet 2 times daily. ??? UNKNOWN TO PATIENT Recently prescribed medication for endometriosis No current facility-administered medications on file prior to visit. PMHX Myalgias Leg cramps History of pericarditis paresthesias Dysfunctional uterine bleeding History of ovarian cyst Intermittent left knee pain Migraine Anxiety Mild persistent allergic asthma Depression Endometriosis SurgHX Non-contributory Family Hx: Non-contributory Social Hx: Social History Socioeconomic History ??? Marital status: Spouse name: None ??? Number of children: None ??? Years of education: None ??? Highest education level: None Occupational History ??? None Social Needs ??? Financial resource strain: None ??? Food insecurity Worry: None Inability: None ??? Transportation needs Medical: None Non-medical: None Tobacco Use ??? Smoking status: Former Smoker ??? Smokeless tobacco: Former User Substance and Sexual Activity ??? Alcohol use: None ??? Drug use: None ??? Sexual activity: None Lifestyle ??? Physical activity Days per week: None Minutes per session: None ??? Stress: None Relationships ??? Social connections Talks on phone: None Gets together: None Attends anabaptism service: None Active member of club or organization: None Attends meetings of clubs or organizations: None Relationship status: None ??? Intimate partner violence Fear of current or ex partner: None Emotionally abused: None Physically abused: None Forced sexual activity: None Other Topics Concern ??? None Social History Narrative ??? None Physical Examination: BP 132/84 Pulse (!) 103 Temp 36.6 ??C (97.8 ??F) (Temporal) Ht 162.6 cm (5' 4) Wt 90.3 kg (199 lb) SpO2 100% BMI 34.16 kg/m?? Musculoskeletal: -No peripheral synovitis noted -Patient gets up out of a chair onto the examination table with no difficulty -No specific joint tenderness on exam -No tenderness over the fibromyalgia points Physical Exam Constitutional: General: She is not in acute distress. Appearance: Normal appearance. She is obese. She is not ill-appearing, toxic- appearing or diaphoretic. HENT: Head: Normocephalic and atraumatic. Right Ear: External ear normal. Left Ear: External ear normal. Nose: Nose normal. Mouth/Throat: Mouth: Mucous membranes are moist. Eyes: General: No scleral icterus. Right eye: No discharge. Left eye: No discharge. Conjunctiva/sclera: Conjunctivae normal. Cardiovascular: Rate and Rhythm: Normal rate and regular rhythm. Pulses: Normal pulses. Heart sounds: Normal heart sounds. No murmur. No friction rub. No gallop. Pulmonary: Effort: Pulmonary effort is normal. Breath sounds: Normal breath sounds. No stridor. No wheezing, rhonchi or rales. Abdominal: General: There is no distension. Palpations: Abdomen is soft. There is no mass. Tenderness: There is no abdominal tenderness. There is no guarding or rebound. Hernia: No hernia is present. Musculoskeletal: General: No swelling, deformity or signs of injury. Right lower leg: No edema. Left lower leg: No edema. Skin: General: Skin is warm and dry. Coloration: Skin is not jaundiced or pale. Findings: No bruising, erythema, lesion or rash. Neurological: Mental Status: She is alert and oriented to person, place, and time. Motor: No weakness. Gait: Gait normal. Psychiatric: Mood and Affect: Mood normal. Behavior: Behavior normal. Thought Content: Thought content normal. Laboratory Data: Component Latest Ref Rng [...] Result Flag Unit RefValue . . . Studies obtained on 06/30/2029 patient had symptomatic arthralgias were notable for: -Normal ESR unremarkable CBC -C-reactive protein of 0.35 upper limit of normal 0.3 -Normal CK of 46 upper limit of normal 192 -REILLY 1:160 speckled -Negative Lyme screen -Negative rheumatoid factor Impression/Recommendations : Gladys Lopez is a 30 y.o. female who presents today with a positive REILLY with ongoing arthralgias. Patient reports a history of recurrent pericarditis with no EKG per the patient,t followed by cardiology Positive REILLY Positive IBS symptoms Fatigue Skin and joint tenderness We will obtain additional screening laboratory studies today, which are available at the time of this dictation. She lacks features by exam or history suggestive of lupus or connective tissue disease. Given that no specific intervention seems to provide much benefit she has a background history of a nxiety, social pressures, and lack of success with remittive medications patient with secondary fibromyalgia. Patient's primary care provider will guide the use of prescription medication to help with her arthralgias according to ongoing consultation between the PCP and the patient. Given the chronicity of the symptoms cognitive behavioral therapy is definitely warranted to help with her ongoing arthralgias and improve her coping skills over time. We will make no pharmaceutical changes today patient will continue on her Cymbalta as prescribed byher primary care provider and we will see her again in follow-up for recheck in 4 months sooner forany issues patient in agreement with this plan any additional changes pending her clinical course or review of notes from cardiology. documented in this encounter Plan of Treatment Not on file documented as of this encounter Procedures Procedure Name Priority Date/Time Associated Diagnosis Comments HC PARATHYROID HORMONE(PTH INTACT Routine 07/18/2020 2:22 PM EST Arthralgia, unspecified joint HC PCH EXTRACTABLE NUCLEAR ANTIGEN Routine 07/18/2020 2:22 PM EST Positive REILLY (antinuclear antibody) HC DNA AB DS (AGDAAGUX) Routine 07/18/2020 2:22 PM EST Positive REILLY (antinuclear antibody) HC VITAMIN D TOTAL-25 HYDROXY Routine 07/18/2020 2:22 PM EST Arthralgia, unspecified joint HC COMPLEMENT,C3 SERUM Routine 07/18/2020 2:22 PM EST Positive REILLY (antinuclear antibody) HC COMPLEMENT C4, PLASMA Routine 07/18/2020 2:22 PM EST Positive REILLY (antinuclear antibody) HC VENIPUNCTURE Routine 07/18/2020 2:22 PM EST Arthralgia, unspecified joint documented in this encounter Results * Calcium (07/18/2020 2:22 PM EST) Calcium 9.7 8.5 - 10.5 mg/dL [facility] Blood specimen (specimen) 07/18/2020 2:22 PM EST 07/18/2020 2:28 PM EST Narrative Resulting Agency Comment Spec In Lab Luiz Abdi MD CHEMISTRY ORDERABLES [facility] [place] [address] * Vitamin D, 25-Hydroxy (07/18/2020 2:22 PM EST) Vitamin D Total 25 OH 40 21 - 100 ng/mL [facility] Vit D Interp Sufficient [facility] Blood specimen (specimen) 07/18/2020 2:22 PM EST 07/18/2020 2:28 PM EST Narrative Resulting Agency Comment Spec In Lab Luiz Abdi MD CHEMISTRY ORDERABLES Performing Organization Address City/[facility] Co de Phone Number [facility] [place] [address] * PTH (07/18/2020 2:22 PM EST) Parathyroid Hormone 27 15 - 65 pg/mL [facility] Blood specimen (specimen) 07/18/2020 2:22 PM EST 07/18/2020 2:28 PM EST Narrative Resulting Agency Comment Spec In Lab Luiz Abdi MD CHEMISTRY ORDERABLES Performing Organization Address [facility] Co de Phone Number [facility] [place] [address] * C3 Complement (07/18/2020 2:22 PM EST) Complement C3 164 90 - 180 mg/dL [facility] Blood specimen (specimen) 07/18/2020 2:22 PM EST 07/18/2020 2:28 PM EST Narrative Resulting Agency Comment Spec In Lab Luiz Abdi MD CHEMISTRY ORDERABLES Performing Organization Address [facility] Co de Phone Number [facility] [place] [address] * DNA Antibody (Double-Stranded) (07/18/2020 2:22 PM EST) DNA Ab (DS) Neg Neg [facility] Blood specimen (specimen) 07/18/2020 2:22 PM EST 07/19/2020 7:20 AM EST Narrative Resulting Agency Comment Spec In Lab Luiz Abdi MD LAB SEND OUT ORDERAB LES Performing Organization Address [facility] Co de Phone Number [facility] [place] [address] * C4 Complement (07/18/2020 2:22 PM EST) Complement C4 27 10 - 40 mg/dL [facility] Blood specimen (specimen) 07/18/2020 2:22 PM EST 07/18/2020 2:28 PM EST Narrative Resulting Agency Comment Spec In Lab Luiz Abdi MD CHEMISTRY ORDERABLES Performing Organization Address [facility] de Phone Number [facility] [place] [address] * Extractable Nuclear Antigen (ANDREA) Ab (07/18/2020 2:22 PM EST) [facility] ANDREA Ab Test ?Result ?Flag ??Unit ??RefValue Ab to Extractable Nuclear Ag Eval,S ??SS-A/Ro Ab, IgG, S ?<0.2 ?U ? <1.0 (Negative) ??SS-B/La Ab, IgG, S ?<0.2 ?U ? <1.0 (Negative) ??Sm Ab, IgG, S ? <0.2 ?U ? <1.0 (Negative) ??SOCIAL WELFARE RESEARCH WORKER Ab, IgG, S ?0.3 ? U ? <1.0 (Negative) ??Scl 70 Ab, IgG, S ? 0.3 ? U ? <1.0 (Negative) ??Viola 1 Ab, IgG, S ? <0.2 ?U ? <1.0 (Negative) ?Test Performed by: ?[facility] ?[address] [place] [address] ?Esl Teacher: Luiz Kumari M.D. Ph.D.; CLIA# [id number] [facility] Blood specimen (specimen) 07/18/2020 2:22 PM EST 07/18/2020 4:20 PM EST Narrative Resulting Agency Comment Spec In Lab Luiz Abdi MD LAB SEND OUT ORDERAB LES [facility] [place] [address] documented in this encounter Visit Diagnoses Diagnosis Arthralgia, unspecified joint- Primary Positive REILLY (antinuclear antibody) Other and unspecified nonspecific immunological findings documented in this encounter
--- OUTSIDE RECORDS SUMMARY | 2024-04-14 20:36 | XMS_ITS | Encounter Summary ---
Author Organization [facility] Address [address] [place] [address] Care Team Providers Care Welder Plasma Arc Name Role Phone Unknown, Provider Primary Care Provider Reason for Visit * Reason Onset Date Comments Medications Refill 02/14/2021 Encounter Details Date Type Department Care Team (Late st Contact Info) Description 02/14/2021 Refill [facility] 3rd Floor [facility] [address], [place] [id number] Sujatha Craven MD PhD [address] [place] [address] Medications Refill Social History Tobacco Use Types [...] encounter Miscellaneous Notes * Telephone Encounter - Chloé Rios - 02/21/2021 1207 EDT Patient confirmed Zoom visit at 9am on 02/23. She also wanted me to send another message on her behalf that she is very upset due to not being able to be scheduled with Dr. Craven during COVID-19 and now we won't refill her medication until after she has already run out. * Telephone Encounter - Lorne Ro MA - 02/21/2021 1117 EDT Left message for patient offering her the 9am appointment on 02/[address] Craven. Okay to use [employer] if she calls back. LORNE RO MA 02/21/2021 11:17 * Telephone Encounter - Loni Horn - 02/16/2021 1556 EDT Patient returned call and has scheduled a ZOOM appointment for 03/13/2021 @ 11:45. Patient very unhappy that she will not be able to have her medication refilled until that time, as she cannot go off that medication and that she has already not had any for a while. Additionally, patient claimed that this clinic was unwilling to see her during Covid so it shouldnot be held against her. Patient is requesting a prompt response. Thank you * Telephone Encounter - Lorne Ro MA - 02/16/2021 0845 EDT Left message for patient letting her know that we cannot refill spironolactone until she sees Dr. Craven for an office visit. Please schedule her for in person or zoom for her next available. LORNE RO MA 02/16/2021 8:46 * Telephone Encounter - Sujatha Craven MD - 02/15/2021 1414 EDT Please let her know she needs an appointment before her next refill. Zoom is ok if she prefers. Sujatha Craven MD 07/18/2020 14:59 * Telephone Encounter - Lorne Ro MA - 02/15/2021 1205 EDT Medication: spironolactone (ALDACTONE) 50 mg Diagnosis: acne Last Office Visit: 09/29/2018 Next Office Visit: tbs Last Refill: 11/11/2019 LORNE RO MA 02/15/2021 12:07 * Telephone Encounter - Lorne Ro MA - 02/15/2021 1205 EDTFrom: Gladys Lopez To: Office of Sujatha Craven MD Sent: 02/14/2021 21:18 EDT Subject: Medication Renewal Request Refills have been requested for the following medications: spironolactone (ALDACTONE) 50 mg tablet [Sujatha Craven MD] Preferred pharmacy: [phone] documented in this encounter Plan of [...] on filedocumented in this encounter Care Teams Welder Plasma Arc Relationship Specialty Start Date End Date Unknown, Provider, PCP - General 05/09/21 documented as of this encounter
--- OUTSIDE RECORDS SUMMARY | 2024-04-14 20:36 | XMS_ITS | Encounter Summary ---
Author Organization [facility] Address [address] [place] [address] Care Team Providers Care Professor Of Philosophy Name Role Phone Unknown, Provider Primary Care Provider [phone] Encounter Details Date Type Department Care Team (Late st Contact Info) Description 04/29/2020 Lab Requisition [facility] Pathology & Laboratory Medicine - [facility] [address] [place] [address] Outr Resulting Lab, Provider Social History Tobacco [...] Procedure Name Priority Date/Time Associated Diagnosis Comments LYME AB Routine 04/28/2020 14:50 EDT RHEUMATOID FACTOR Routine 04/28/2020 14: 50 EDT ANTI NUCLEAR AB (REILLY), IFA Routine 04/28/2020 14:50 EDT documented in this encounter Results * LYME AB (04/28/2020 14:50 EDT) Lyme Ab Negative Negative 05/01/2020 10:38 EDT [facility] Comment:New 3rd generation a ssay in use 01/19/2020 Blood VENOUS BLOOD / Unknown 04/28/2020 14:50 EDT 04/30/2020 19:44 EDT Provider Outr Resulting Lab IMMUNOLOGY A ND SEROLOGY ORDERABLES [facility] [address] [place] [address] * RHEUMATOID FACTOR (04/28/2020 14:50 EDT) Rheumatoid Factor <8.6 <12.0 IU/mL 04/30/2020 19:59 EDT [facility] Blood VENOUS BLOOD / Unknown 04/28/2020 14:50 EDT 04/30/2020 19:44 EDT Provider Outr Resulting Lab CHEMISTRY & BLOOD GAS ORDERABLES Performing Organization Address [facility] Co de Phone Number [facility] [address] [place] [address] * (ABNORMAL) ANTI NUCLEAR AB (REILLY), IFA (04/28/2020 14:50 EDT) REILLY Interpretation Positive(A) Negative 05/01/2020 15:11 EDT [facility] Comment: For titers greater than or equal to 1:160 (except the centromere and nucleolar patterns) it is recommended that specific follow-up autoantibody testing ??(such as for dsDNA and Extractable Nuclear Antigens) be performed on all diffuse and/or speckled patterns NOTE: For add-on testing dsDNA is stable for 7 days refrigerated while Extractable Nuclear Antigens are only stable for 48 hours refrigerated. REILLY Titer and Pattern 1 1:160 Speckled 05/01/2020 15:11 EDT [facility] Blood VENOUS BLOOD / Unknown 04/28/2020 14:50 EDT 04/30/2020 19:44 EDT Narrative [facility] - 05/01/2020 15:11 EDT Results were obtained with the INOVA NOVA Lite HEp-2 REILLY Kit by indirect immunofluorescence. Provider Outr Resulting Lab IMMUNOLOGY A ND SEROLOGY ORDERABLES Performing Organization Address [facility] Co de Phone Number [facility] [address] [place] [address] documented in this encounter Visit Diagnoses Not on filedocumented in this encounter Care Teams Professor Of Philosophy Relationship Specialty Start Date End Date Unknown, Provider, PCP - General 05/09/21 documented as of this encounter
--- OUTSIDE RECORDS SUMMARY | 2024-04-14 20:36 | XMS_ITS | Encounter Summary ---
Author Organization [facility] Address [address] [place] [address] Care Team Providers Care Ink Jet Operator Name Role Phone Unknown, Provider Primary Care Provider [phone] Encounter Details Date Type Department Care Team (Late st Contact Info) Description 07/14/2020 Lab Requisition [facility] Pathology & Laboratory Medicine - [facility] [address] [place] [address] Outr Resulting Lab, Provider Social History Tobacco [...] Priority Date/Time Associated Diagnosis Comments ZZCOVID-19 TEST [facility] PCR Today 07/14/2020 14:44 EST COVID-19 TESTING Routine 07/14/2020 14:4 4 EST documented in this encounter Results * COVID-19 TEST [facility] PCR (07/14/2020 14:44 EST) Swab ENTIRE NASOPHARYNX / Unknown 07/14/2020 14:44 EST 07/14/2020 21:08 EST Provider Outr Resulting Lab MICROBIOLOGY - GENERAL ORDERABLES Performing Organization Address City/State/[facility] Co de Phone Number [facility] [address] [place] [address] * COVID-19 TESTING (07/14/2020 14:44 EST) COVID-19 rt-PCR Result Negative Negative 07/15/2020 0:52 EST [facility] Comment: This test has not [...] history, and epidemiological information. Performed on the GEO'Suppher Fusion instrument Performing Lab C[employer]umet [facility] 07/15/2020 0:52 EST [facility] Swab 07/14/2020 14:4 4 EST 07/14/2020 21:08 EST Provider Outr Resulting Lab MICROBIOLOGY - GENERAL ORDERABLES [facility] [address] [place] [address] documented in this encounter Visit Diagnoses Not on filedocumented in this encounter Care Teams Ink Jet Operator Relationship Specialty Start Date End Date Unknown, Provider, PCP - General 05/09/21 documented as of this encounter
--- OUTSIDE RECORDS SUMMARY | 2024-04-14 20:36 | XMS_ITS | Encounter Summary ---
[place] [address] Care Team Providers Care Opening Machine Cleaner Name Role Phone None Primary Care Provider Unavailabl e Reason for Visit * Reason Comments Abdominal Pain Encounter Details Date Type Department Care Team ([facility] st Contact Info) Description 12/12/2023 11:25 AM EDT - 12/12/2023 3:06 PM [place] [address] Chayo Eisenberg MD [facility] [place] [address] Fatty liver; Upper abdominal pain Discharge Disposition: Home Social History Tobacco Use [...] Mass Index 39.48 12/12/2023 11:17 AM EDT documented in this encounter Discharge Instructions * Discharge Instructions* Sangita Gomez MD - 12/12/2023 2:52 PM EDT -please attend upcoming GI appointment on 12.17.[address] oBrrero -please attend upcoming MRI -take zofran as prescribed for nausea documented in this encounter Medications at Time of Discharge Medication Sig Dispensed Refills Start Date End Date montelukast (Singulair) 10 mg Tablet 10 mg daily. 05/22/[address] (Cymbalta) 20 mg Capsule, Delayed Release(E.C.) TAKE ONE CAPSULE BY MOUTH EVERY DAY 06/30/2020 acetaminophen (Tylenol) 325 mg Tablet Take 650 [...] 50 mg Tablet 2 times daily. 11/11/2019 UNKNOWN TO PATIENT Recently prescribed medication for endometriosis documented as of this encounter ED Notes * Chayo Eisenberg MD - 12/12/2023 11:58 AM EDT 33-year-old female with 2 months of right upper quadrant pain. Says that she [facility] a [facility] including right upper quadrant ultrasound, HIDA scan and 2 CT scans. She has been given the provisional diagnosis of nonalcoholic steatohepatitis. She is going to be seeing GI next week. She presents today for continued right upper quadrant pain associate with an episode of vomiting. She notes no weight gain or weight loss during the past 2 months. Having normal bowel movements. Eating and drinking normally. Abdomen is mildly tender in the right upper quadrant although no guarding, rebound or percussion. Normal active bowel sounds. Assessment/plan: 2 months of right upper quadrant pain with 2 CTs of shown fatty liver as well as aultrasound and a HIDA have been negative for gallbladder dysfunction. Unfortunately none of the studies are in our system. Our plan is to check labs and a repeat right upper quadrant ultrasound today. She sounds like she has already arranged an outpatient MRI of her liver and then her GI follow-up. Chayo Eisenberg MD 12/12/23 [id number] * Bhupinder Rodarte MD - 12/12/2023 11:16 AM EDT Telehealth [id number] Note: The following documentation is provided in my role as a TeleEmergency Physician and reflects a live audiovisual interaction. Brief HPI: 33 yo f abdominal pain, n/v for several months. Has had some ED visits and saw PCP - could be my liver; I have a fatty liver and it's getting worse. Gets majority of care at [facility]. Brief Physical Exam: Vital signs reviewed General appearance: Awake, alert, interactive Tests Ordered: CBC, CMP, lipase, UA, Urine HCG Preliminary testing was ordered. The patient is awaiting a bed in the Emergency Department. Bhupinder Rodarte MD 12/12/23 1120 documented in this encounter Miscellaneous Notes * ED Triage - Marlene Mar RN - 12/12/2023 11:18 AM EDT Pt arrives ambulatory with stable gait. A&Ox4 speaking in full sentences. Pt reports intermittent abd pain and vomiting for the last couple months. Seen at [facility] and told she has a fatty liver. Reports continues pain and vomiting. States no change in severity but feels she isn't getting the careshe needs there. Respirations even and non labored. Skin p/w/d. NAD at this time. documented in this encounter Plan of Treatment Not on file documented as of this encounter Procedures Procedure Name Priority Date/Time Associated Diagnosis Comments URINALYSIS WITH REFLEX CULTURE STAT 12/12/2023 2:31 PM EDT US ABDOMEN LIMITED STAT 12/12/2023 12 :48 PM EDT HEMOGRAM STAT 12/12/2023 11:30 AM EDT DIFFERENTIAL, AUTOMATED STAT 12/12/2023 11:30 AM EDT GOLD TUBE HOLD STAT 12/12/2023 11:30 AM EDT BLUE TUBE HOLD STAT 12/12/2023 11:30 AM EDT CBC (WITH DIFF) STAT 12/12/2023 11:27 AM EDT LIPASE STAT 12/12/2023 11:27 AM EDT COMPREHENSIVE METABOLIC PANEL STAT 12/12/2023 11:27 AM EDT documented in this encounter Results * Urinalysis with reflex Culture (12/12/2023 2:31 PM EDT) Glucose, Urine Dipstick Negative Negative mg/dL [facility] Protein, Urine Dipstick Negative Negative mg/dL [facility] Bilirubin, Urine Dipstick Negative Negative mg/dL [facility] Comment: Clinical correlation required for positive Urine Bilirubin results as false positive may occur with some drugs and drug related products. If a false positive is suspected a serum total bilirubin should be considered if clinically indicated. Urobilinogen, Urine Dipstick Normal Normal mg/dL [facility] pH, Urn (dipstick) 6.0 5.0 - 8.0 [facility] Blood, Urine Dipstick Negative Negative mg/dL [facility] Ketone, Urine Dipstick Negative Negative mg/dL [facility] Nitrite, Urine Dipstick Negative Negative [facility] Leukocytes, Urine Dipstick Negative Negative [facility] Appearance, Urine Dipstick Clear Clear [facility] Specific [place] Urine Automated 1.018 1.005 - 1.030 [facility] Color, Urine Dipstick Yellow Yellow [facility] Reflex to Culture No [facility] First Catch Urine 12/12/2023 2:31 PM EDT 12/12/2023 2:42 PM EDT Narrative Resulting Agency Comment Spec In Lab Bhupinder Rodarte MD URINE ORDERABLES Performing Organization Address City/State/[facility] Co de Phone Number [facility] [place] [phone] * US Abdomen Limited (12/12/2023 12:48 PM EDT) WORKSTATION ID [id number] RAD Anatomical Region Laterality Modality Abdomen Ultrasound 12/12/2023 12:4 7 PM EDT Impressions 12/12/2023 1:43 PM EDT 1. ??Diffusely echogenic liver liver, consistent with hepatic steatosis. Normal liver size with smooth contour. 2. ??Two indeterminate ill-defined hypoechoic lesions in the left lobe with suggestion of mild internal vascularity, largest 2 cm. Recommend further characterization with nonemergent Eovist liver MRI. 3. ??Patent main portal vein with hepatopedal flow. 4. ??No biliary dilation. Normal gallbladder. I have personally reviewed the image(s) and the resident's interpretation and agree with the findings, Gris Trinidad MD at 12/12/2023 1:36 PM Thank you for letting us participate in the care of this patient. If you are a health care provider and have any questions regarding this report, please contact the number above. For patients who have questions, please contact the health patient care that requested your imaging first. ? Gris Trinidad, Forest Nursery Supervisor Electronically Signed Final Report ?? 12/12/2023 01:43 pm Narrative 12/12/2023 1:43 PM EDT Abdominal ? (Signed Final 12/12/2023 01:43 pm) PATIENT INFO: ID #: ? [id number] ?: ??[birth year] (33 yrs)(F) Name: ? GLADYS SHADIA ?Visit Date: 12/12/2023 12:47 pm PERFORMED BY: Attending: ?Amos FRY, Gris Graham Resident: ? Abiel FRY, [facility] Performed By: ? Fiordaliza Monte RDMS Referred By: ?CHAYO EISENBERG Location: ? [place] SERVICE(S) PROVIDED: UABDLIM - Abdominal Limited Survey Single ? 84808 Organ or Quadrant - [id number] INDICATIONS: right upper quadrant pain and nausea ------ LIVER: ------ Right Lobe Length: ?? 11.8 ?? cm Echogenicity/Echotexture: ?? Increased echogenicity -------- Lesions: -------- # ?Date ?Location ?Description ?L ?AP ?TV (cm) 1 ?12/12/23 ?Left Lobe ? 2.1 ?1.4 ? 1.8 2 ?12/12/23 ?Left Lobe ? 1.0 ?1.0 ? 1.0 GALLBLADDER: Cholelithiasis: ?No stones visualized Wall Thickness: ?2.7 mm Focal Tenderness: ?Negative sonographic Oswald's sign BILIARY TRACT: Intrahepatic Ducts: ?? Normal Extrahepatic Ducts: ?? Normal Common Duct Size: ? 4.5 ? mm --------- PANCREAS: --------- Head: ?Normal ?Size: Tail: ?Poorly visualized due to ?Size: ?overlying bowel Body: ?Normal ?Size: RIGHT KIDNEY: Size (cm) ?L: ??12.6 Cortical Thickness: ?Normal Cortical Echogenicity: ?? Normal Hydronephrosis: ?No sonographic evidence ---- IVC: ---- Normal in caliber where visualized. Procedure Note Gris Trinidad MD - 12/12/2023 Abdominal (Signed Final 12/12/2023 01:43 pm) PATIENT INFO: ID #: [id number] : [birth year] (33 yrs)(F) Name: GLADYS RENO Visit Date: 12/12/2023 12:47 pm PERFORMED BY: Attending: Gris Trinidad MD Resident: Abiel FRY [facility] Performed By: Fiordaliza Monte RDMS Referred By: CHAYO EISENBERG Location: [place] SERVICE(S) PROVIDED: UABDLIM - Abdominal Limited Survey Single 22061 Organ or Quadrant - [id number] INDICATIONS: right upper quadrant pain and nausea ------ LIVER: ------ Right Lobe Length: 11.8 cm Echogenicity/Echotexture: Increased echogenicity -------- Lesions: -------- # Date Location Description L AP TV (cm) 1 12/12/23 Left Lobe 2.1 1.4 1.8 2 12/12/23 Left Lobe 1.0 1.0 1.0 GALLBLADDER: Cholelithiasis: No stones visualized Wall Thickness: 2.7 mm Focal Tenderness: Negative sonographic Oswald's sign BILIARY TRACT: Intrahepatic Ducts: Normal Extrahepatic Ducts: Normal Common Duct Size: 4.5 mm --------- PANCREAS: --------- Head: Normal Size: Tail: Poorly visualized due to Size: overlying bowel Body: Normal Size: RIGHT KIDNEY: Size (cm) L: 12.6 Cortical Thickness: Normal Cortical Echogenicity: Normal Hydronephrosis: No sonographic evidence ---- IVC: ---- Normal in caliber where visualized. IMPRESSION 1. Diffusely echogenic liver liver, consistent with hepatic steatosis. Normal liver size with smooth contour. 2. Two indeterminate ill-defined hypoechoic lesions in the left lobe with suggestion of mild internal vascularity, largest 2 cm. Recommend further characterization with nonemergent Eovist liver MRI. 3. Patent main portal vein with hepatopedal flow. 4. No biliary dilation. Normal gallbladder. I have personally reviewed the image(s) and the resident's interpretation and agree with the findings, Gris Trinidad MD at 12/12/2023 1:36 PM Thank you for letting us participate in the care of this patient. If you are a health care provider and have any questions regarding this report, please contact the number above. For patients who have questions, please contact the health patient care that requested your imaging first. Gris Trinidad, Forest Nursery Supervisor Electronically Signed Final Report 12/12/2023 01:43 pm Chayo Eisenberg MD IMG US GEN ORDERABLE S * Gold Tube HOLD (12/12/2023 11:30 AM EDT) Gold Hold Sample in lab. [facility] Blood Venous Draw / Unknown 12/12/2023 11:30 AM EDT 12/12/2023 11:42 AM EDT Bhupinder Rodarte MD CHEMISTRY ORDERABLES Performing Organization Address City/[facility]/ZIP Co de Phone Number [facility] [place] [address] * Blue Tube HOLD (12/12/2023 11:30 AM EDT) Blue Hold Sample in lab. [facility] Blood Venous Draw / Unknown 12/12/2023 11:30 AM EDT 12/12/2023 11:43 AM EDT Bhupinder Rodarte MD HEMATOLOGY ORDERABLE S [facility] [place] [address] * (ABNORMAL) Differential, Automated (12/12/2023 11:30 AM EDT) Neutrophil % 62.5 % [facility] Neutrophil Absolute 5.61 1.70 - 6.10 x10(3)/mc L [facility] Lymph % 27.3 % [facility] Lymphocytes Abs 2.4 0.9 - 3.2 x10(3)/mc L [facility] Monocyte % 6.5 % [facility] Monocyte Abs 0.6 0.3 - 0.9 x10(3)/mc L [facility] Eos % 1.8 % [facility] Eosinophils Abs 0.2 0.0 - 0.4 x10(3)/mc L [facility] Basophil % 0.8 % [facility] Baso Absolute 0.1 0.0 - 0.1 x10(3)/mc L [facility] Immature Gran % 1.10 % [facility] Comment: Immature granulocytes(IG's)percentage and absolute count will include metamyelocytes, myelocytes, and promyelocytes. Blood smears from CBCs yielding IG's will be scanned manually for concordance. If this scan disagrees with the automated IG or if promyelocytes are noted, a manual differential will be performed. Immature Gran Absolute 0.10(H) 0.00 - 0.04 x10(3)/ L [facility] Blood 12/12/2023 11:3 0 AM EDT 12/12/2023 11:41 AM EDT Narrative Resulting Agency Comment Spec In Lab Bhupinder Rodarte MD HEMATOLOGY ORDERABLE S [facility] [place] [address] * Hemogram (12/12/2023 11:30 AM EDT) White Blood Cell 9.0 4.0 - 9.5 x10(3)/[facility] Red Blood Cell 4.60 4.00 - 5.21 x10(6)/[facility] Hemoglobin 13.2 11.7 - 15.5 g/dL [facility] Hematocrit 38.7 35.7 - 45.8 % [facility] Mean Cell Volume 84.1 82.6 - 94.4 fL [facility] Mean Cell Hemoglobin 28.7 27.1 - 32.0 pg [facility] Mean Cell Hemoglobin Concentration 34.1 31.7 - 35.0 g/dL [facility] Platelet 271 145 - 357 x10(3)/[facility] RDW Standard Deviation 37.6 37.0 - 46.0 fL [facility] RDW coefficient of variation 12.5 11.5 - 14.1 % [facility] Mean Platelet Volume 10.4 7.6 - 12.9 fL [facility] NRBC% auto 0.0 % [facility] NRBC Absolute 0.000 0.000 - 0.000 x10(3)/mcL [facility] Blood 12/12/2023 11:3 0 AM EDT 12/12/2023 11:41 AM EDT Narrative Resulting Agency Comment Spec In Lab Bhupinder Rodarte MD HEMATOLOGY ORDERABLE S Performing Organization Address [facility]/ZIP Co de Phone Number [facility] [place] [address] * Lipase (12/12/2023 11:27 AM EDT) Lipase 26 0 - 60 unit/L [facility] Blood 12/12/2023 11:2 7 AM EDT 12/12/2023 11:41 AM EDT Narrative Resulting Agency Comment Spec In Lab Bhupinder Rodarte MD CHEMISTRY ORDERABLES Performing Organization Address [facility] Co de Phone Number [facility] [place] [address] * Comprehensive metabolic panel (non-fasting) (12/12/2023 11:27 AM EDT) Glucose 98 65 - 199 mg/dL [facility] Comment:Diabetes: >=200 mg/d L plus symptoms Blood Urea Nitrogen 10 8 - 18 mg/dL [facility] Creatinine 0.71 0.70 - 1.20 mg/dL [facility] Sodium 139 135 - 145 mmol/L [facility] Potassium 4.0 3.5 - 5.0 mmol/L [facility] Comment: Please note: ??Patients with WBC >100,000 may have falsely elevated Potassium levels. ??For accurate Potassium quantification in these patients send serum separator tube (gold top) for subsequent determinations. ??Contact the Clinical Chemistry Laboratory if there are any questions. Chloride 107 98 - 107 mmol/L [facility] Carbon Dioxide 22 22 - 31 mmol/L [facility] Anion Gap 10 5 - 15 mmol/L [facility] Calcium 9.1 8.5 - 10.5 mg/dL [facility] Protein, Total 7.2 6.1 - 8.0 g/dL [facility] Albumin 4.3 3.2 - 5.2 g/dL [facility] Aspartate Aminotransferase 30 0 - 30 unit/L [facility] Alanine Aminotransferase 22 0 - 30 unit/L [facility] Alkaline Phosphatase 80 35 - 105 unit/L [facility] Bilirubin, Total 0.3 0.2 - 1.3 mg/dL [facility] Est Glomerular Filtration Rate 115 >=60 mL/min/1. 73 m?? [facility] Comment: This patient's estimated GFR was calculated using the 2020 CKD-EPI equation. The estimated GFR can vary from the measured GFR by up to 30% in the absence of rapidly changing kidney function. Assessment of the estimated GFR is not appropriate when creatinine concentrations are rapidly changing. For clinical situations in which a more precise estimate of GFR is necessary, consider alternative methods of GFR estimation such as a 24-hour urine creatinine clearance. Assignment of CKD stage 1-5 for patients with an eGFR near the transition point between stages may be based on clinical assessment of muscle mass and symptoms in addition to eGFR. Blood 12/12/2023 11:2 7 AM EDT 12/12/2023 11:41 AM EDT Narrative Resulting Agency Comment Spec In Lab Bhupinder Rodarte MD CHEMISTRY ORDERABLES [facility] [place] [address] documented in this encounter Visit Diagnoses Diagnosis Fatty liver Other chronic nonalcoholic liver disease Upper abdominal pain Abdominal pain, other specified site documented in this encounter Care Teams Opening Machine Cleaner Relationship Specialty Start Date End Date None None PCP - General 12/12/23 12/14/23 documented as of this encounter
--- OUTSIDE RECORDS SUMMARY | 2024-04-14 20:36 | XMS_ITS | Encounter Summary ---
Author Organization [facility] Address [address] [place] [address] Care Team Providers Care Power Generation Engineer Name Role Phone Unknown, Provider Primary Care Provider [phone] Encounter Details Date Type Department Care Team (Late st Contact Info) Description 03/15/2022 Lab Requisition [facility] Pathology & Laboratory Medicine - [facility] [address] [place] [address] Outr Resulting Lab, Provider Social History Tobacco [...] Priority Date/Time Associated Diagnosis Comments ZZCOVID-19 TEST [facility] PCR Today 03/15/2022 11:45 EDT COVID-19 TESTING Routine 03/15/2022 11:4 5 EDT documented in this encounter Results * COVID-19 TEST [facility] PCR (03/15/2022 11:45 EDT) Swab 03/15/2022 11:4 5 EDT 03/15/2022 21:50 EDT Provider Outr Resulting Lab MICROBIOLOGY - GENERAL ORDERABLES [facility] [address] [place] [address] * COVID-19 TESTING (03/15/2022 11:45 EDT) COVID-19 rt-PCR Result Negative Negative 03/16/2022 12:00 EDT [facility] Comment: This test has [...] clinical observations, patient history, and epidemiological information. Testing was performed using the jorge SARS-CoV-2 assay ([employer] on the Jorge 6800 System Performing Lab Jorge 6800 [facility] 03/16/2022 12:00 EDT [facility] Swab 03/15/2022 11:4 5 EDT 03/15/2022 21:50 EDT Provider Outr Resulting Lab MICROBIOLOGY - GENERAL ORDERABLES [facility] [address] [place] [address] documented in this encounter Visit Diagnoses Not on filedocumented in this encounter Care Teams Power Generation Engineer Relationship Specialty Start Date End Date Unknown, Provider, PCP - General 05/09/21 documented as of this encounter
--- OUTSIDE RECORDS SUMMARY | 2024-04-14 20:36 | XMS_ITS | Encounter Summary ---
Author Organization [facility] Address [address] [place] [address] Care Team Providers Care Count Team Member Name Role Phone Unknown, Provider Primary Care Provider [phone] Encounter Details Date Type Department Care Team (Late st Contact Info) Description 10/21/2019 Lab Requisition [facility] Pathology & Laboratory Medicine - [facility] [address] [place] [address] Unknown, Provider, Social History Tobacco Use Types [...] REFLEX TO HCV RNA BY PCR Routine 10/20/2019 15:10 EDT HEPATITIS B SURFACE ANTIBODY Routine 10/20/2019 15:10 EDT documented in this encounter Results * HEPATITIS B SURFACE ANTIBODY (10/20/2019 15:10 EDT) Hep B Surface Ab, Quantitative 13.2 See Note mIU/mL 10/22/2019 9:21 EDT [facility] Comment: Reference Range for Hep B Surface Ab, Quant: Positive: >= 10.0 mIU/mL Negative: ??< 10.0 mIU/mL Patient is presumed to be immune to infection with Hepatitis B Virus. Hep B Surface Ab, Qualitative Positive See Note 10/22/2019 9:21 EDT [facility] Comment: Reference Range for Hep B Surface Ab, Qual: Unvaccinated: ??Negative Vaccinated: ??Positive Blood VENOUS BLOOD / Unknown 10/20/2019 15:10 EDT 10/21/2019 15:59 EDT Provider Unknown CHEMISTRY & BLOOD GA S ORDERABLES [facility] [address] [place] [address] * HEPATITIS C AB W REFLEX TO HCV RNA BY PCR (10/20/2019 15:10 EDT) Hep C Antibody Negative Negative 10/22/2019 10:03 EDT [facility] Blood VENOUS BLOOD / Unknown 10/20/2019 15:10 EDT 10/21/2019 15:59 EDT Provider Unknown CHEMISTRY & BLOOD GA S ORDERABLES [facility] [address] [place] [address] documented in this encounter Visit Diagnoses Not on filedocumented in this encounter Care Teams Count Team Member Relationship Specialty Start Date End Date Unknown, Provider, PCP - General 05/09/21 documented as of this encounter
--- OUTSIDE RECORDS SUMMARY | 2024-04-14 20:36 | XMS_ITS | Encounter Summary ---
Author Organization [facility] Address [address] [place] [address] Care Team Providers Care Accounts Receivable Coordinator Name Role Phone Unknown, Provider Primary Care Provider [phone] Encounter Details Date Type Department Care Team (Late st Contact Info) Description 10/09/2019 Lab Requisition [facility] Pathology & Laboratory Medicine - [facility] [address] [place] [address] Unknown, Provider, Social History Tobacco Use Types [...] Comments CHLAMYDIA/N. GONORRHOEAE AMPLIFIED NUCLEIC ACID Routine 10/08/2019 16:25 EST documented in this encounter Results * CHLAMYDIA/N. GONORRHOEAE AMPLIFIED RNA (10/08/2019 16:25 EST) Neisseria gonorrhoeae Result Negative Negative 10/11/2019 13:29 EST [facility] Chlamydia trachomatis Result Negative Negative 10/11/2019 13:29 EST [facility] Swab SPECIMEN FROM UTERINE CERVIX / Unknown 10/08/2019 16:25 EST 10/10/2019 17:46 EST Provider Unknown MICROBIOLOGY - GENER AL ORDERABLES [facility] [address] [place] [address] documented in this encounter Visit Diagnoses Not on filedocumented in this encounter Care Teams Accounts Receivable Coordinator Relationship Specialty Start Date End Date Unknown, Provider, PCP - General 05/09/21 documented as of this encounter
--- OUTSIDE RECORDS SUMMARY | 2024-04-14 20:36 | XMS_ITS | Encounter Summary ---
Author Organization [facility] Address [address] [place] [address] Care Team Providers Care Office Asst Name Role Phone Fiordaliza Hurt MD Primary Care Provider [phone] Reason for Visit * Reason Onset Date Comments Other 02/15/2019 Encounter Details Date Type Department Care Team (Late st Contact Info) Description 02/15/2019 Telephone [facility] Dermatology 3rd Floor [facility] [address] [place], [place] [id number] Sujatha Craven MD PhD [address] [facility] [place] [address] Other Social History Tobacco Use Types Packs/Day Years [...] encounter Miscellaneous Notes * Telephone Encounter - Flor Eddy - 02/15/2019 1643 EDT Medication: spironolactone (ALDACTONE) 50 mg tablet Diagnosis: Acne Last Office Visit: 09/29/18 Next Office Visit: NA Last Refill: 09/29/18 Flor Eddy 02/15/2019 16:45 documented in this encounter Plan of Treatment [...] on filedocumented in this encounter Care Teams Office Asst Relationship Specialty Start Date End Date Fiordaliza Hurt MD PCP - General 04/06/18 08/16/19 documented as of this encounter
--- OUTSIDE RECORDS SUMMARY | 2024-04-14 20:36 | XMS_ITS | Encounter Summary ---
Author Organization [facility] Address [address] [place] [address] Care Team Providers Care Special Class Welder Name Role Phone Unknown, Provider Primary Care Provider [phone] Encounter Details Date Type Department Care Team (Late st Contact Info) Description 03/20/2020 Lab Requisition [facility] Pathology & Laboratory Medicine - [facility] [address] [place] [address] Outr Resulting Lab, Provider Social History Tobacco [...] Comments CHLAMYDIA/N. GONORRHOEAE AMPLIFIED NUCLEIC ACID Routine 03/19/2020 13:15 EDT documented in this encounter Results * CHLAMYDIA/N. GONORRHOEAE AMPLIFIED RNA (03/19/2020 13:15 EDT) Neisseria gonorrhoeae Result Negative Negative 03/21/2020 14:55 EDT [facility] Chlamydia trachomatis Result Negative Negative 03/21/2020 14:55 EDT [facility] Swab ENTIRE ENDOCERVIX / Unknown 03/19/2020 13:15 EDT 03/20/2020 17:15 EDT Provider Outr Resulting Lab MICROBIOLOGY - GENERAL ORDERABLES [facility] [address] [place] [address] documented in this encounter Visit Diagnoses Not on filedocumented in this encounter Care Teams Special Class Welder Relationship Specialty Start Date End Date Unknown, Provider, PCP - General 05/09/21 documented as of this encounter
--- OUTSIDE RECORDS SUMMARY | 2024-04-14 20:36 | XMS_ITS | Encounter Summary ---
Author Organization [facility] Address [address] [place] [address] Care Team Providers Care Demolition Worker Name Role Phone Unknown, Provider Primary Care Provider [phone] Encounter Details Date Type Department Care Team (Late st Contact Info) Description 10/08/2023 Lab Requisition [facility] Pathology & Laboratory Medicine - [facility] [address] [place], [place] [address] Outr Resulting Lab, Provider Social History Tobacco [...] Procedure Name Priority Date/Time Associated Diagnosis Comments ESTRADIOL, ADULTS Routine 10/08/2023 14: 33 EST FSH Routine 10/08/2023 14:33 EST documented in this encounter Results * FSH (10/08/2023 14:33 EST) FSH 6.0 See Note mIU/mL 10/08/2023 22:17 EST [facility] Blood VENOUS BLOOD / Unknown 10/08/2023 14:33 EST 10/08/2023 21:24 EST Narrative [facility] - 10/08/2023 22:17 EST NOTE: Female FSH Reference Ranges (Menstruating): PHYSIOLOGICAL STATUS ? REFERENCE RANGE ? Follicular (-12 to -4 days): ?? 2.5 - 10.2 mIU/mL Midcycle (-3 to +2 days): ?3.4 - 33.4 mIU/mL Luteal (+4 to +12 days): ? 1.5 - 9.1 mIU/mL Postmenopausal: ?23.0 - 116.3 mIU/mL Reference Ranges for pediatric non-menstruating female patients have not been established. Provider Outr Resulting Lab CHEMISTRY & BLOOD GAS ORDERABLES Performing Organization Address [facility] Co de Phone Number [facility] [address] [place], [place] [address] * ESTRADIOL, ADULTS (10/08/2023 14:33 EST) Estradiol 288 See Note pg/mL 10/08/2023 22:02 EST [facility] Comment: NOTE: FEMALE REFERENCE RANGES: MENSTRUATING ? By cycle day relative to LH peak Follicular ?(-12 to -4 days) ??20-144 pg/mL Midcycle ?(-3 to +2 days) ?? 64-357 pg/mL Luteal ?(+4 to +12 days) ??56-214 pg/mL POSTMENOPAUSAL ?<32 pg/mL *Cross reactivity with Fulvestrant could lead to a falsely elevated estradiol result in patients treated with this drug. Blood VENOUS BLOOD / Unknown 10/08/2023 14:33 EST 10/08/2023 21:24 EST Provider Outr Resulting Lab CHEMISTRY & BLOOD GAS ORDERABLES Performing Organization Address [facility] de Phone Number [facility] [address] [place], [place] [address] documented in this encounter Visit Diagnoses Not on filedocumented in this encounter Care Teams Demolition Worker Relationship Specialty Start Date End Date Unknown, Provider, PCP - General 05/09/21 documented as of this encounter
--- OUTSIDE RECORDS SUMMARY | 2024-04-14 20:36 | XMS_ITS | Encounter Summary ---
Author Organization [facility] Address [address] [place] [address] Care Team Providers Care Accounting Manager Name Role Phone Unknown, Provider Primary Care Provider [phone] Encounter Details Date Type Department Care Team (Late st Contact Info) Description 01/29/2023 Lab Requisition [facility] Pathology & Laboratory Medicine - [facility] [address] [place] [address] Gris Burr MD [address] [place] [phone] Encounter for other general examination Social History [...] Procedure Name Priority Date/Time Associated Diagnosis Comments SURGICAL PATHOLOGY Today 01/29/2023 8: 19 EDT Encounter for other general examination documented in this encounter Results * SURGICAL PATHOLOGY (01/29/2023 8:19 EDT) Note to Patient The following pathology results have been interpreted by your pathologist and may be available to you before your health provider has had the opportunity to review them. Please allow time for your provider to receive these results and explore management options, if applicable. 02/03/2023 15:45 [facility] Final Diagnosis A. FALLOPIAN TUBE, LEFT, SALPINGECTOMY: - Fallopian tube with no specific pathologic features. B. FALLOPIAN TUBE, RIGHT, SALPINGECTOMY: - Disrupted fallopian tube with paratubal cyst. 02/03/2023 15:45 [facility] Attestation By the signature below, the attending physician certifies that they have 1) personally conducted a gross and/or microscopic examination of the described specimen(s), and/or personally interpreted the results of laboratory testing of the described specimen(s), and 2) personally rendered or confirmed the above diagnosis. 02/03/2023 15:45 [facility] at 1545 Clinical History Desired infertility 02/03/2023 15:45 EDT [facility] Gross Description A. Received in formalin labelled with proper patient identification (initials B, M) and L fallopian tube is an intact fallopian tube, 5.0 cm in length and ranging from 0.4-0.7 cm in diameter. The serosa is smooth and brown-purple. Sections through the tube reveal an intact wall and pinpoint lumen. Social Work Assistant sections are submitted in A1-A2 to include the entire fimbriated end and a central cross-section. B. Received in formalin labelled with proper patient identification (initials B, M) and right fallopian tube are two tubal fragments, 2.0 x 1.0 x 0.8 cm and 4.8 cm in length by 0.5 cm in diameter. The shorter tissue consists of fragmented tubal fimbria. The longer tubal segment contains a pedunculated intact clear fluid-filled paratubal cyst, 1.0 cm in greatest dimension. The serosal surfaces are otherwise unremarkable. Sections through the tube reveal an intact wall and pinpoint lumen. Social Work Assistant sections are submitted in B1-B2 to include the entire fimbriated tissue, the pedunculated fluid-filled cyst, and a central cross-section. AZRA QUIROZ(ASCP) 01/30/2023 11:48 02/03/2023 15:45 EDT [facility] Performing Lab [facility] 02/03/2023 15:45 EDT [facility] Scanned Images 02/03/2023 15:45 EDT [facility] Tissue ENTIRE FALLOPIAN TUBE / Unknown 01/29/2023 8:19 EDT 01/29/2023 19:47 EDT Tissue specimen (specimen) FALLOPIAN TUBE STRUCTURE / Unknown 01/29/2023 8:19 EDT 01/29/2023 19:47 EDT Gris Burr MD PATHOLOGY ORDERAB LES [facility] [address] [place] [address] documented in this encounter Visit Diagnoses Diagnosis Encounter for other general examination documented in this encounter Care Teams Accounting Manager Relationship Specialty Start Date End Date Unknown, Provider, PCP - General 05/09/21 documented as of this encounter
--- OUTSIDE RECORDS SUMMARY | 2024-04-14 20:36 | XMS_ITS | Encounter Summary ---
Author Organization [facility] Address [address] [place] [address] Care Team Providers Care Assistant Chief Of Police Name Role Phone Unknown, Provider Primary Care Provider [phone] Encounter Details Date Type Department Care Team (Late st Contact Info) Description 03/20/2020 Lab Requisition [facility] Pathology & Laboratory Medicine - [facility] [address] [place] [address] Outr Resulting Lab, Provider Social History Tobacco [...] Date/Time Associated Diagnosis Comments SYPHILIS SEROLOGY Routine 03/19/2020 15: 10 EDT documented in this encounter Results * SYPHILIS SEROLOGY (03/19/2020 15:10 EDT) Syphilis Serology Negative Negative 03/21/2020 10:03 EDT [facility] Blood VENOUS BLOOD / Unknown 03/19/2020 15:10 EDT 03/20/2020 15:13 EDT Provider Outr Resulting Lab IMMUNOLOGY A ND SEROLOGY ORDERABLES [facility] [address] [place] [address] documented in this encounter Visit Diagnoses Not on filedocumented in this encounter Care Teams Assistant Chief Of Police Relationship Specialty Start Date End Date Unknown, Provider, PCP - General 05/09/21 documented as of this encounter
--- OUTSIDE RECORDS SUMMARY | 2024-04-14 20:36 | XMS_ITS | Encounter Summary ---
Author Organization [facility] Address [address] [place] [address] Care Team Providers Care Chipper Feeder Name Role Phone Unknown, Provider Primary Care Provider Reason for Visit * Reason Onset Date Comments Medications Refill 07/17/2020 Encounter Details Date Type Department Care Team (Late st Contact Info) Description 07/17/2020 Refill [facility] Dermatology [address]rd [address] [address] Sujatha Craven MD PhD [address] [facility], [address] [place] [address] Medications Refill Social History Tobacco [...] not take if . 90 Tab 4 07/18/2020 02/23/2021 documented in this encounter Miscellaneous Notes * Telephone Encounter - Joaquín Ewing - 07/17/2020 0821 EST Patient calling to request a refill of her spironolactone 50 mg tablets. She understands she has not seen Dr. Craven in a while and if she needs to come in before the refill she would be fine with that.She would appreciate a call if that's the case. documented in this encounter Plan of Treatment [...] acne. Do not take if . Reorder 11/11/2019 07/17/2020 documented as of this encounter Care Teams Chipper Feeder Relationship Specialty Start Date End Date Unknown, Provider, PCP - General 05/09/21 documented as of this encounter
--- OUTSIDE RECORDS SUMMARY | 2024-04-14 20:36 | XMS_ITS | Encounter Summary ---
[place] [address] Care Team Providers Care Battery Parts Assembler Name Role Phone Unavailable Primary Care Provider Unavailabl e Encounter Details Date Type Department Care Team (Late st Contact Info) Description 06/06/2022 [place] [address] Mahesh Moreno PA [address] [place] [address] Social History Tobacco Use Types Packs/Day Years Used Date Smoking Tobacco: Former Smokeless Tobacco: Former Sex and Gender Information Value Date Recorded Sex Assigned at Not on file Gender Identity Not on file Sexual Orientation Not on file documented as of this encounter Miscellaneous Notes * Telephone Encounter - Mahesh Moreno PA - 06/06/2022 7:40 PM EDT Called pt , she states she feel odd, with tingling in the hands and feet, she states this has neverhappened before, if she flexes her neck she has no unusual sx, she does not think she is sick, she needs to see her pcp, will order labs to start workup, she states she is covid negative, she tells me she is calling out of work tomorrow. I will not write an RX without seeing this pt. documented in this encounter Plan of Treatment Not on file documented as of this encounter Visit Diagnoses Not on filedocumented in this encounter
--- OUTSIDE RECORDS SUMMARY | 2024-04-14 20:36 | XMS_ITS | Encounter Summary ---
Author Organization [facility] Address [address] [place] [address] Care Team Providers Care Fagoter Name Role Phone Unknown, Provider Primary Care Provider [phone] Encounter Details Date Type Department Care Team (Late st Contact Info) Description 07/18/2020 Lab Requisition [facility] Pathology & Laboratory Medicine - [facility] [address] [place] [address] Outr Resulting Lab, Provider Social History Tobacco [...] Procedure Name Priority Date/Time Associated Diagnosis Comments PROLACTIN Routine 07/18/2020 8:19 EST FSH Routine 07/18/2020 8:19 EST documented in this encounter Results * FSH (07/18/2020 8:19 EST) FSH 5.0 See Note mIU/mL 07/18/2020 17:57 EST [facility] Blood VENOUS BLOOD / Unknown 07/18/2020 8:19 EST 07/18/2020 16:50 EST Narrative [facility] - 07/18/2020 17:57 EST NOTE: Female FSH Reference Ranges (>= 13 Menstruating): PHYSIOLOGICAL STATUS ? REFERENCE RANGE ? Follicular (-12 to -4 days): ?? 2.5 - 10.2 mIU/mL Midcycle (-3 to +2 days): ?3.4 - 33.4 mIU/mL Luteal (+4 to +12 days): ? 1.5 - 9.1 mIU/mL Postmenopausal: ?23.0 - 116.3 mIU/mL Reference Ranges for female patients <13 years old have not been established. Provider Outr Resulting Lab CHEMISTRY & BLOOD GAS ORDERABLES Performing Organization Address [facility] Co de Phone Number [facility] [address] [place] [address] * PROLACTIN (07/18/2020 8:19 EST) Prolactin 8.8 See Table ng/mL 07/18/2020 17:58 EST [facility] Comment: NOTE: Female Reference Ranges: PHYSIOLOGICAL STATUS ?EXPECTED RANGE ? Postmenopausal ?1.8 - 20.3 ng/mL ?9.7 - 208.5 ng/mL Non- ?2.8 - 29.2 ng/mL Reference Ranges for Prolactin in female patients <18 years old have not been established. Blood VENOUS BLOOD / Unknown 07/18/2020 8:19 EST 07/18/2020 16:50 EST Provider Outr Resulting Lab CHEMISTRY & BLOOD GAS ORDERABLES Performing Organization Address [facility] Co de Phone Number [facility] [address] [place] [address] documented in this encounter Visit Diagnoses Not on filedocumented in this encounter Care Teams Fagoter Relationship Specialty Start Date End Date Unknown, Provider, PCP - General 05/09/21 documented as of this encounter
--- OUTSIDE RECORDS SUMMARY | 2024-04-14 20:36 | XMS_ITS | Encounter Summary ---
Author Organization [facility] [place] [address] Care Team Providers Care Cosmetics Supervisor Name Role Phone Unavailable Primary Care Provider Unavailabl e Encounter Details Date Type Department Care Team (Late st Contact Info) Description 06/06/2022 [place] [phone] Sobia Chino RN Social History Tobacco Use Types Packs/Day Years Used Date Smoking Tobacco: Former Smokeless Tobacco: Former Sex and Gender Information Value Date Recorded Sex Assigned at Not on file Gender Identity Not on file Sexual Orientation Not on file documented as of this encounter Miscellaneous Notes * Telephone Encounter - Sobia Chino RN - 06/06/2022 9:54 AM EDT RTC to the patient. Patient states on Friday she started to have the headaches. They are described as medium to mild, but if she does not take Tylenol or Ibuprofen they will exacerbate to being fairly intense, and progress into the migraine category. Denied f/c/n/v/d and no visual changes nor balance issues. No rash nor area warm/red/or swollen. Has a sense of feeling dizzy or light headed at times but this comes and goes. Patient also has been having poor sleep and not really able to get comfortable with her muscle spasms, achiness. Feels nerves are tingling, burning and very tight/tense/sore to her legs. The Started in her arms first but went to her legs. 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 Denied injury, or event that may have precipitated this. Last time this happened she was given Flexeril, and she hated this. Does not want this but asked iff she could have something else to take the pain/tightness resolve so she can function? Message sent to Provider to review and advise further. documented in this encounter Plan of Treatment Not on file documented as of this encounter Visit Diagnoses Diagnosis Arthralgia, unspecified joint Positive REILLY (antinuclear antibody) Other and unspecified nonspecific immunological findings Medication monitoring encounter Encounter for therapeutic drug monitoring documented in this encounter
--- OUTSIDE RECORDS SUMMARY | 2024-04-14 20:36 | XMS_ITS | Encounter Summary ---
Author Organization [facility] Address [address] [place] [address] Care Team Providers Care Geodetic Technician Name Role Phone Unknown, Provider Primary Care Provider [phone] Encounter Details Date Type Department Care Team (Late st Contact Info) Description 01/29/2024 Lab Requisition [facility] Pathology & Laboratory Medicine - [facility] [address], [place] [id number] Outr Resulting Lab, Provider Social History Tobacco [...] Comments CHLAMYDIA/N. GONORRHOEAE AMPLIFIED NUCLEIC ACID Routine 01/28/2024 16:10 EDT documented in this encounter Results * CHLAMYDIA/N. GONORRHOEAE AMPLIFIED RNA (01/28/2024 16:10 EDT) Neisseria gonorrhoeae Result Negative Negative 01/30/2024 13:31 EDT [facility] Chlamydia trachomatis Result Negative Negative 01/30/2024 13:31 EDT [facility] Swab CERVIX UTERI STRUCTURE / Unknown 01/28/2024 16:10 EDT 01/29/2024 21:55 EDT Provider Outr Resulting Lab MICROBIOLOGY - GENERAL ORDERABLES [facility] [address] [place], [place] [address] documented in this encounter Visit Diagnoses Not on filedocumented in this encounter Care Teams Geodetic Technician Relationship Specialty Start Date End Date Unknown, Provider, PCP - General 05/09/21 documented as of this encounter
--- OUTSIDE RECORDS SUMMARY | 2024-04-14 20:37 | XMS_ITS | Encounter Summary ---
Author Organization [facility] Address [address] [place] [address] Care Team Providers Care Conductor Sleeping Car Name Role Phone Fiordaliza Hurt MD Primary Care Provider [phone] Reason for Referral * Consult (Other (Specify in Question)) - Closed Specialty Diagnoses / Procedures Referred By Gregory velez Referred To Contact Diagnoses Stress at home Deborah Alicea PA-C [address] [place] [address] Referral ID Status Reason Start Date Expiration Date V isits Requested Visits Authorized [id number] Closed Specialty Services Required 06/01/2018 1 1 Question Answer What areas would you like the C[facility] to focus on? Pharmacogeneticist - phone consult (pt lives 2 hrs away) If Yes to Pharmacogeneticist, Please Select from the Following: Connecting to Community Therapist, Other - Please Comment - separate from , 2 kids, not working, no support Scheduling Comments (optional ? describe specific scheduling needs if applicable): LAURA phone consult Comments As we discussed in your visit today, someone will be contacting you from the Community Health Team to schedule an appointment with you. If you do not hear from the CHT within a week please call the Community Health Team at [phone]. Reason for Visit * Reason Comments Cough x 5 days, kids sick. chills and body aches Immunizations would like flu shot if ok Encounter Details Date Type Department Care Team ([facility] Contact Info) Description 06/01/2018 16:00 EDT Office Visit [facility] Adult Primary Care - [place] [address] [place] [address] Deborah lAicea PA-C [address] [place] [address] Cough (Primary Dx); Stress at home; control counseling; Need for influenza vaccination Social History Tobacco Use Types Packs/Day Years [...] EDT Inhaled Oxygen Concentration - - Weight - - Height - - Body Mass Index - - documented in this encounter Functional Status Functional Status Response [...] Dispensed Refills Start Date End Da te norethindrone-ethinyl estradiol (JUNEL FE 1/20) 1 mg-20 mcg (21)/75 mg (7) per tablet Take 1 Tab by mouth daily. 86 Tab 3 06/01/2018 documented in this encounter Progress Notes * Deborah Alicea PA - 06/01/2018 1600 EDT Chief Complaint Patient presents with ??? Cough x 5 days, kids sick. chills and body aches ??? Immunizations would like flu shot if ok HPI: Gladys Lopez is a 28 y.o. y.o. female with mild persistent asthma here for sick visit c/o cough x 5 days. Cough is dry during the day, productive in the AMs. Feels tight in upper chest/lower neck. No sore throat. Feels phlegm in throat. Nose is congested, blows clear mucous. Asthma has been acting up. Has been using flovent and albuterol. Albuterol mostly at nights, sometimes AMs and afternoons. Gets relief. She does have a spacer. Flovent- using 2 puffs in the AM and PM. No fevers or chills. Appetite is a little down which she thinks could be due to stress. Using a lot of cough drops which do help. Kids have been sick with URIs as well. URIs for pt and kids have been on and off x 1.5 months. left her on 05/07/18. Very unexpected, very stressful. She has 2 young kids. She moved to [place], 2 hrs away, living with her sister. Does not have a job. Was in school but has been missing classes, can't go back now. She would like to find a counselor, has been having trouble finding one on her own. Would like callfrom social human services assistants. IUD removed in March. Would like OCP prescription. LMP early May. [facility] ROS: See HPI. Patient Active Problem List Diagnosis ??? Endometriosis ??? ACL injury tear ??? Acute meniscal tear of knee ??? Depression ??? Abnormal Pap smear of cervix ??? Kidney stone ??? Mild persistent asthma without complication ??? Anxiety ??? Sterilization consult Current Outpatient Prescriptions on File Prior to Visit Medication Sig Dispense Refill ??? acetaminophen (TYLENOL) 325 mg tablet Take 2 Tabs by mouth every 4 hours as needed for Pain. ??? albuterol 90 mcg/actuation inhaler Inhale 1 Puff as directed every 4 hours as needed for Wheezing. 1 Inhaler 11 ??? aspirin 81 mg EC tablet Take 81 mg by mouth daily. ??? aspirin/acetaminophen/caffeine (EXCEDRIN MIGRAINE ORAL) Take by mouth. ??? FERROUS SULFATE (IRON ORAL) Take by mouth daily. ??? fluticasone (FLOVENT HFA) 110 mcg/actuation inhaler Inhale 1 Puff as directed every 12 hours. Reported on 11/04/2016 1 Inhaler 11 ??? hydrOXYzine (ATARAX) 25 mg tablet Take 2 Tabs by mouth every 6 hours as needed for Anxiety. 40 Tab 0 ??? ibuprofen (MOTRIN) 400 mg tablet Take 1 Tab by mouth every 4 hours as needed for Pain. ??? meclizine (ANTIVERT) 25 mg tablet Take 1 Tab by mouth 4 times daily as needed for Dizziness or Nausea. (Patient not taking: Reported on 04/08/2018) 20 Tab 1 ??? montelukast (SINGULAIR) 10 mg tablet Take 1 Tab by mouth at bedtime. 90 Tab 3 ??? propRANolol (INDERAL) 20 mg tablet Take 1 Tab by mouth daily. (Patient not taking: Reported on 06/01/2018) 90 Tab 3 ??? spironolactone (ALDACTONE) 50 mg tablet Take 1 Tab by mouth 2 times daily. 180 Tab 3 No current facility-administered medications on file prior to visit. BP 118/78 Pulse 100 Temp 36.9 ??C (98.4 ??F) (Tympanic) Resp 18 SpO2 98% Physical exam: Patient appears generally well, alert and oriented x 3, very pleasant, cooperative. Vitals are as noted. Neck supple. Lymph: no cervical lymphadenopathy. EENT: Eyes without discharge or redness. Nasal passages are bright red, edematous. Ears: Canals are normal, TMs are normal. Throat is a bit red without discharge. MMM. Post nasal drainage noted. Lungs: normal effort, clear to auscultation, no rales or rhonchi. No wheezing. Skin: No rashes noted. Neuro: CN grossly intact, normal speech and gait. Assessment/Plan: Gladys was seen today for cough and immunizations. Diagnoses and all orders for this visit: Cough Likely viral with mild asthma exacerbation. Lungs clear on exam today. Recommended she continue with flovent bid for the next few months at least since she has had recurrent URIs. Continue albuterol and cough drops prn. Call if having new/worsening symptoms in the next 1-2 weeks. Stress at home - AMB CONS/FOLLOW UP COMMUNITY HEALTH TEAM Pt seems to be coping well despite significant stressors. Referred for phone consult with social human services assistants. Need for influenza vaccination - [id number] - Influenza Vaccine Quad (FLULAVAL/FLUARIX) PF 0.5 ml IM (6 mos+) control counseling - norethindrone-ethinyl estradiol (08/30) 1 mg-20 mcg (21)/75 mg (7) per tablet; Take 1 Tabby mouth daily. Counseled on correct use of OCP, she plans to do a Day 1 start. documented in this encounter Plan of Treatment Scheduled Referrals Name Type Priority Associated Diagnoses Orde r Schedule AMB CONS/FOLLOW UP COMMUNITY HEALTH TEAM Outpatient Referral Routine Stress at home Ordered: 06/01/2018 documented as of this encounter Goals Goal Patient Goal Type Associated Problems Recent Progress Patient-Stated? Author Blood Pressure < 130/80 Blood Pressure 118/78(2017 16:01 EDT) No Rina Agosto MD Weight Loss General Yes Rina Agosto MD Note: Goal = 145lbs documented as of this encounter Visit Diagnoses Diagnosis Cough- Primary Stress at home Unspecified family circumstance control counseling General counseling for initiation of other contraceptive measures Need for influenza vaccination Need for prophylactic vaccination and inoculation against influenza documented in this encounter Discontinued Medications Medication Sig Discontinue Reason Start Date End Da te levonorgestrel (KYLEENA) 17.5 mcg/24 hr (5 years) IUD 1 Each by intrauterine route Now. 06/01/2018 documented as of this encounter Orders Immunization/Injection Count Last Ordered Date First Ordered Date INFLUENZA VACCINE QUAD (FLUL AVAL/FLUARIX) PF 0.5 ML IM (6 MOS+) 1 06/01/2018 documented in this encounter Care Teams Conductor Sleeping Car Relationship Specialty Start Date End Date Fiordaliza Hurt MD PCP - General 04/06/18 08/16/19 documented as of this encounter
--- OUTSIDE RECORDS SUMMARY | 2024-04-14 20:37 | XMS_ITS | Encounter Summary ---
Author Organization [facility] Address [address] [place] [address] Care Team Providers Care Scrap Metal Collector Name Role Phone MgAbdoulaye gusman Primary Care Provider [phone] Encounter Details Date Type Department Care Team (Late st Contact Info) Description 12/22/2017 Phlebotomy Only [place] - [facility] [address] [place] [address] Bookkeepers Supervisor, Outpatient thyroiditis (Primary Dx) Social History Tobacco Use Types Packs/Day Years [...] Procedure Name Priority Date/Time Associated Diagnosis Comments T3 FREE Routine 12/22/2017 14:40 EDT thyroiditis TSH Routine 12/22/2017 14:40 EDT thyroiditis T4 FREE Routine 12/22/2017 14:40 EDT thyroiditis documented in this encounter Results * T4 FREE (12/22/2017 14:40 EDT) T4, Free 0.9 0.8 - 2.2 ng/dl 12/22/2017 18:57 EDT [facility] Blood specimen (specimen) BLOOD SPECIMEN / Unknown 12/22/2017 14:40 EDT 12/22/2017 18:29 EDT Abdoulaye Adie CHEMISTRY & BLOOD GA S ORDERABLES Performing Organization Address [facility] Co de Phone Number [facility] [address] [place] [id number] * T3 FREE (12/22/2017 14:40 EDT) T3, Free 3.8 2.8 - 5.3 pg/ml 12/22/2017 18:57 EDT [facility] Blood specimen (specimen) BLOOD SPECIMEN / Unknown 12/22/2017 14:40 EDT 12/22/2017 18:29 EDT Abdoulaye Adie CHEMISTRY & BLOOD GA S ORDERABLES Performing Organization Address [facility] Co de Phone Number [facility] [address] [place] [address] * TSH (12/22/2017 14:40 EDT) TSH 1.52 0.47 - 4.68 uIU/ml 12/22/2017 19:11 EDT [facility] Comment: The results of this assay can be falsely lowered due to the consumption of Biotin. Blood specimen (specimen) BLOOD SPECIMEN / Unknown 12/22/2017 14:40 EDT 12/22/2017 18:29 EDT Abdoulaye Gonzalez CHEMISTRY & BLOOD GA S ORDERABLES [facility] [address] [place] [address] documented in this encounter Visit Diagnoses Diagnosis thyroiditis- Primary Thyroid dysfunction, documented in this encounter Care Teams Scrap Metal Collector Relationship Specialty Start Date End Date Abdoulaye Gonzalez PCP - General 12/22/15 04/05/18 documented as of this encounter
--- OUTSIDE RECORDS SUMMARY | 2024-04-14 20:37 | XMS_ITS | Encounter Summary ---
Author Organization [facility] Address [address] [place] [address] Care Team Providers Care Registered Public Surveyor Name Role Phone MgAbdoulaye gusman Primary Care Provider [phone] Encounter Details Date Type Department Care Team (Late st Contact Info) Description 02/03/2018 Phlebotomy Only [facility] [address] [place] [address] Branch Billing Payroll Clerk, Outpatient thyroiditis; Dizziness Social History Tobacco Use Types Packs/Day Years [...] Procedure Name Priority Date/Time Associated Diagnosis Comments [facility] PRIMARY CARE USE ONLY (PATIENTS >=18YRS) Routine 02/03/2018 12:07 EDT Dizziness T3, TOTAL Routine 02/03/2018 12:07 EDT thyroiditis TSH Routine 02/03/2018 12:07 EDT thyroiditis T4 FREE Routine 02/03/2018 12:07 EDT thyroiditis COMPREHENSIVE METABOLIC PANEL (CMP) Routine 02/03/2018 12:07 EDT Dizziness documented in this encounter Results * COMPREHENSIVE METABOLIC PANEL (CMP) (02/03/2018 12:07 EDT) Potassium 4.9 3.5 - 5.0 mEq/L 02/03/2018 13:24 EDT [facility] Sodium 140 136 - 145 mEq/L 02/03[facility]2018 [facility] Chloride 105 96 - 110 mEq/L 02/03/2018 13:24 [facility] CO2 24 22 - 32 mEq/L 02/03/2018 13:24 [facility] Total Alkaline Phosphatase 99 38 - 126 U/L 02/03/2018 13:24 [facility] Bilirubin, Total <0.5 <1.4 mg/dl 02/04/20 18 13:24 [facility] AST 18 15 - 46 U/L 02/03/2018 13:24 [facility] ALT 17 <53 U/L 02/03/2018 13:24 [facility] Albumin 4.5 3.4 - 4.9 g/dl 02/03/2018 13:24 [facility] Total Protein 7.5 6.3 - 8.2 g/dl 02/03/2018 13:24 [facility] Creatinine 0.58 0.52 - 1.04 mg/dl 02/03/2018 13:24 [facility] GFR, Calculated 127 >60 ml/min/1.7 3m2 02/03/2018 13:24 [facility] Comment: eGFR calculated using CKD-EPI equation for non Americans. Multiply eGFR by 1.16 for Americans. BUN 13 10 - 26 mg/dl 02/03/2018 13:24 [facility] Calcium 9.8 8.5 - 10.5 mg/dl 02/03/2018 13:24 [facility] Calculated Calcium 9.4 8.5 - 10.5 mg/dl 02/03/2018 13:24 [facility] Glucose, Serum 78 70 - 100 mg/dl 02/03/2018 13:24 [facility] Fasting? YES 02/03/2018 12:04 [facility] Blood specimen (specimen) BLOOD SPECIMEN / Unknown 02/03/2018 12:07 EDT 02/03/2018 12:51 EDT Deborah Alicea PA-C CHEMISTRY & BLOOD G ORDERABLES [facility] [address] [place] [address] * (ABNORMAL) [facility] USE ONLY (PATIENTS >=18YRS) (02/03/2018 12:07 EDT) WBC 7.56 4.0 - 12.4 K/cmm 02/03/2018 13:02 [facility] RBC 5.01 3.86 - 5.04 M/cmm 02/03/2018 13:02 [facility] Hemoglobin 13.2 11.6 - 15.2 gm/dl 02/03/2018 13:02 [facility] HCT 39.6 34.9 - 44.4 % 02/03/2018 13:02 [facility] MCV 79(L) 81 - 98 fl 02/03/2018 13:02 [facility] MCH 26.3(L) 26.7 - 33.3 pg 02/03/2018 13:02 [facility] MCHC 33.3 32.1 - 35.9 gm/dl 02/03/2018 13:02 [facility] RDW-CV 14.6 <14.7 % 02/03/2018 13:02 [facility] RDW-SD 41.8 <50.4 fl 02/03/2018 13:02 [facility] PLT 261 141 - 377 K/cmm 02/03/2018 13:02 [facility] MPV 11.0 9.5 - 12.7 fl 02/03/2018 13:02 [facility] % Neutrophils 51.0 % 02/03/2018 13:02 [facility] % Lymphocytes 39.3 % 02/03/2018 13:02 [facility] % Monocytes 6.0 % 02/03/2018 13:02 [facility] % Eosinophils 2.1 % 02/03/2018 13:02 [facility] % Basophils 0.9 % 02/03/2018 13:02 [facility] % Immature Grans 0.7 % 02/03/2018 13:02 [facility] ABS Neutrophils 3.86 2.20 - 8.85 K/cmm 02/03/2018 13:02 [facility] ABS Lymphs 2.97 1.09 - 3.30 K/cmm 02/03/2018 13:02 [facility] ABS Monocytes 0.45 0.1 - 0.8 K/cmm 02/03/2018 13:02 [facility] ABS Eosinophils 0.16 0.03 - 0.61 K/cmm 02/03/2018 13:02 EDT [facility] ABS Basophils 0.07 0.01 - 0.11 K/cmm 02/03/2018 13:02 T [facility] ABS Immature Grans 0.05 0 - 0.06 K/cmm 02/03/2018 13:02 [facility] Type of Diff: Automated 02/03/2018 13:02 [facility] Retic Ct (Uncorrected) 2.3 0.5 - 2.5 % 02/03/2018 13:02 [facility] Hold SST Hold for further testing. Specimen will be held for 5 days. 02/03/2018 12:04 [facility] Anemia Summary 02/03/2018 13:02 [facility] Comment: The hemagram results indicate the absence of anemia. No further reflex testing is necessary. Blood specimen (specimen) BLOOD SPECIMEN / Unknown 02/03/2018 12:07 EDT 02/03/2018 12:51 EDT Deborah Alicea PA-C HEMATOLOGY & PF4 OR DERABLES [facility] [address] [place] [address] * T3, TOTAL (02/03/2018 12:07 EDT) T3, Total 141 97 - 169 ng/dl 02/03/2018 13:56 EDT [facility] Blood specimen (specimen) BLOOD SPECIMEN / Unknown 02/03/2018 12:07 EDT 02/03/2018 12:51 EDT Abdoulaye Gonzalez CHEMISTRY & BLOOD GA S ORDERABLES Performing Organization Address [place]/[facility] Co de Phone Number [facility] [address] [place] [address] * T4 FREE (02/03/2018 12:07 EDT) T4, Free 1.0 0.8 - 2.2 ng/dl 02/03/2018 13:42 EDT [facility] Blood specimen (specimen) BLOOD SPECIMEN / Unknown 02/03/2018 12:07 EDT 02/03/2018 12:51 EDT Abdoulaye Carlos CHEMISTRY & BLOOD GA S ORDERABLES Performing Organization Address [facility] Co de Phone Number [facility] [address] [place] [address] * TSH (02/03/2018 12:07 EDT) TSH 0.71 0.47 - 4.68 uIU/ml 02/03/2018 13:56 EDT [facility] Comment: The results of this assay can be falsely lowered due to the consumption of Biotin. Blood specimen (specimen) BLOOD SPECIMEN / Unknown 02/03/2018 12:07 EDT 02/03/2018 12:51 EDT Abdoulaye Gonzalez CHEMISTRY & BLOOD GA S ORDERABLES Performing Organization Address [facility] Co de Phone Number [facility] [address] [place] [phone] documented in this encounter Visit Diagnoses Diagnosis thyroiditis Thyroid dysfunction, Dizziness Dizziness and giddiness documented in this encounter Care Teams Registered Public Surveyor Relationship Specialty Start Date End Date MgAlverto gusmantin PCP - General 12/22/15 04/05/18 documented as of this encounter
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
--- OUTSIDE RECORDS SUMMARY | 2024-04-14 20:37 | XMS_ITS | Encounter Summary ---
Author Organization [facility] Address [address] [place] [address] Care Team Providers Care Geophysical Drafter Name Role Phone Fiordaliza Hurt MD Primary Care Provider [phone] Reason for Visit * Reason Onset Date Comments No Show 05/20/2018 Encounter Details Date Type Department Care Team (Late st Contact Info) Description 05/20/2018 Telephone [facility] Adult Primary Care - [place] [address] [place] [address] Fiordaliza Hurt MD [address] [place] [address] No Show Social History Tobacco Use Types Packs/Day Years [...] encounter Miscellaneous Notes * Telephone Encounter - Apurva Serna - 05/20/2018 0845 EDT Reason for Call: No Show Summary/Symptoms: Called pt to reschedule no show appt. Onset and Duration? Appointment Offered? No Apurva Serna 05/20/2018 8:45 documented in this encounter Plan of Treatment [...] on filedocumented in this encounter Care Teams Geophysical Drafter Relationship Specialty Start Date End Date Fiordaliza Hurt MD PCP - General 04/06/18 08/16/19 documented as of this encounter
--- OUTSIDE RECORDS SUMMARY | 2024-04-14 20:37 | XMS_ITS | Encounter Summary ---
Author Organization [facility] Address [address] [place] [address] Care Team Providers Care Mall Manager Name Role Phone Abdoulaye Gonzalez Primary Care Provider [phone] Encounter Details Date Type Department Care Team (Late st Contact Info) Description 12/23/2017 Orders Only [facility] Adult Primary Care - [address] [id number] Abdoulaye Gonzalez [address] [place] [address] thyroiditis (Primary Dx) Social History Tobacco Use [...] Rina Agosto MD Weight Loss General Yes Rnia Agosto MD Note: Goal = 145lbs documented as of this encounter Results * T3, TOTAL (02/03/2018 12:07 EDT) T3, Total 141 97 - 169 ng/dl 02/03/2018 13:56 EDT [facility] Blood specimen (specimen) BLOOD SPECIMEN / Unknown 02/03/2018 12:07 EDT 02/03/2018 12:51 EDT Abdoulaye Adie CHEMISTRY & BLOOD GA S ORDERABLES Performing Organization Address City/[facility] Co de Phone Number [facility] [address] [place] [address] * T4 FREE (02/03/2018 12:07 EDT) T4, Free 1.0 0.8 - 2.2 ng/dl 02/03/2018 13:42 EDT [facility] Blood specimen (specimen) BLOOD SPECIMEN / Unknown 02/03/2018 12:07 EDT 02/03/2018 12:51 EDT Abdoulaye Adie CHEMISTRY & BLOOD GA S ORDERABLES Performing Organization Address City/[facility]/ZIP Co de Phone Number [facility] [address] [place] [address] * TSH (02/03/2018 12:07 EDT) Pathologist [facility] TSH 0.71 0.47 - 4.68 uIU/ml 02/03/2018 13:56 EDT [facility] Comment: The results of this assay can be falsely lowered due to the consumption of Biotin. Blood specimen (specimen) BLOOD SPECIMEN / Unknown 02/03/2018 12:07 EDT 02/03/2018 12:51 EDT Abdoulaye Gonzalez CHEMISTRY & BLOOD GA S ORDERABLES [facility] [address] [place] [address] documented in this encounter Visit Diagnoses Diagnosis thyroiditis- Primary Thyroid dysfunction, documented in this encounter Care Teams Mall Manager Relationship Specialty Start Date End Date Abdoulaye Gonzalez PCP - General 12/22/15 04/05/18 documented as of this encounter
--- OUTSIDE RECORDS SUMMARY | 2024-04-14 20:37 | XMS_ITS | Encounter Summary ---
Author Organization [facility] Address [address] [place] [address] Care Team Providers Care Velvet Cutter Name Role Phone Fiordaliza Hurt MD Primary Care Provider [phone] Reason for Visit * Reason Onset Date Comments Coordination Of Care 09/30/2018 Encounter Details Date Type Department Care Team (Late st Contact Info) Description 09/30/2018 Telephone [facility] Dermatology [address] [id number] Sujatha Craven MD PhD [address] [place] [address], [address] [place] [address] Coordination Of Care Social History Tobacco Use Types Packs/Day Years [...] mouth in the evening (50mg) for acne. 90 Tab 3 09/30/2018 02/16/2019 documented in this encounter Miscellaneous Notes * Telephone Encounter - Sujatha Craven MD - 09/30/2018 1023 EST I have attempted to contact this patient by phone with the following results: no answer. Dr. Vee, urology ok'ed sprionolactone in the setting of recurrent nephrolithiasis with monitoring. Prescribed spironolactone 100mg QAM, 50mg QPM. Please notify patient that it is ok to start her increased dose and new Rx has been sent. Sujatha Craven MD 09/30/2018 10:28 documented in this encounter Plan of Treatment [...] te spironolactone (ALDACTONE) 50 mg tablet Take 1 Tab by mouth 2 times daily for 90 days. 11/07/2015 02/05/2016 spironolactone (ALDACTONE) 50 mg tablet Take 1 Tab by mouth 2 times daily. Reorder 03/04/2018 09/30/2018 documented as of this encounter Care Teams Velvet Cutter Relationship Specialty Start Date End Date Fiordaliza Hurt MD PCP - General 04/06/18 08/16/19 documented as of this encounter
--- OUTSIDE RECORDS SUMMARY | 2024-04-14 20:37 | XMS_ITS | Encounter Summary ---
Author Organization [facility] Address [address] [place] [id number] Care Team Providers Care Chancery Clerk Name Role Phone Abdoulaye Gonzalez Primary Care Provider [phone] Reason for Visit * Reason Onset Date Comments Appointment Related 02/16/2018 Encounter Details Date Type Department Care Team (Late st Contact Info) Description 02/16/[address] [facility] Rehabilitation Therapy - [facility] [address] [place] [address] Vielka Hazel, PT [address] [place] [address] Appointment Related Social History Tobacco Use Types [...] encounter Miscellaneous Notes * Telephone Encounter - Vielka Hazel, PT - 02/16/2018 1532 EDT Call placed to the patient to offer her a sooner appointment as she was on the wait list. She states that she hasn't had any symptoms, however has been consistently taking Meclizine. Explained that she could try stopping the Meclizine and then if she continues to have no symptoms could cancel the ap pointment on Friday. She states that she currently doesn't have insurance, but will have insurance on March 11. After explaining the cost of our services, she has opted to hold on coming to therapy until she has insurance. Recommended that she try stopping the Meclizine to see if her symptoms truly have resolved. Then to call our office is she is continuing to have symptoms and would like honorio scheduled for an evaluation. She was in agreement with this plan. Vielka Hazel, PT documented in this encounter Plan of Treatment [...] on filedocumented in this encounter Care Teams Chancery Clerk Relationship Specialty Start Date End Date MgAbdoulaye gusman PCP - General 12/22/15 04/05/18 documented as of this encounter
--- OUTSIDE RECORDS SUMMARY | 2024-04-14 20:37 | XMS_ITS | Encounter Summary ---
Author Organization [facility] Address [address] [place] [address] Care Team Providers Care Master Naval Parachutist Name Role Phone MgAbdoulaye gusman Primary Care Provider [phone] Encounter Details Date Type Department Care Team (Late st Contact Info) Description 11/20/2017 Phlebotomy Only [address] [address] Director Of Aviation, Outpatient Fatigue, unspecified type; Generalized muscle ache; Weakness Social History Tobacco Use Types Packs/Day Years [...] Procedure Name Priority Date/Time Associated Diagnosis Comments SSA/SSB PANEL Routine 11/20/2017 10:20 EDT Fatigue, unspecified type Generalized muscle ache Weakness SM (BORRERO) ANTIBODY, IGG Routine 11/20/2017 10:20 EDT Fatigue, unspecified type Generalized muscle ache Weakness VITAMIN D (25,OH) Routine 11/20/2017 10: 20 EDT Fatigue, unspecified type Generalized muscle ache Weakness WAD LUBRICATOR ANTIBODY, IGG Routine 11/20/2017 10: 20 EDT Fatigue, unspecified type Generalized muscle ache Weakness DOUBLE STRANDED DNA ANTIBODY, IGG Routine 11/20/2017 10:20 EDT Fatigue, unspecified type Generalized muscle ache Weakness ANCA, IFA Routine 11/20/2017 10:20 EDT Fatigue, unspecified type Generalized muscle ache Weakness COMPLETE BLOOD COUNT AND DIFFERENTIAL Routine 11/20/2017 10:20 EDT Fatigue, unspecified type Generalized muscle ache Weakness ANTI NUCLEAR AB (REILLY), IFA Routine 11/20/2017 10:20 EDT Fatigue, unspecified type Generalized muscle ache Weakness documented in this encounter Results * (ABNORMAL) HEMAGRAM AND DIFFERENTIAL (11/20/2017 10:20 EDT) WBC 6.80 4.0 - 12.4 K/cmm 11/20/2017 11:56 EDT [facility] RBC 5.17(H) 3.86 - 5.04 M/cmm 11/20/2017 11:56 [facility] Hemoglobin 12.9 11.6 - 15.2 gm/dl 11/20/2017 11:56 [facility] HCT 39.1 34.9 - 44.4 % 11/20/2017 11:56 [facility] MCV 76(L) 81 - 98 fl 11/20/2017 11:56 [facility] MCH 25.0(L) 26.7 - 33.3 pg 11/20/2017 11:56 [facility] Hypochromia 1+ 11/20/2017 11:56 [facility] MCHC 33.0 32.1 - 35.9 gm/dl 11/20/2017 11:56 [facility] RDW-CV 16.0(H) <14.7 % 11/20/2017 11:56 [facility] RDW-SD 43.5 <50.4 fl 11/20/2017 11:56 [facility] PLT 277 141 - 377 K/cmm 11/20/2017 11:56 [facility] MPV 11.2 9.5 - 12.7 fl 11/20/2017 11:56 [facility] % Neutrophils 51.0 % 11/20/2017 11:56 [facility] % Lymphocytes 38.8 % 11/20/2017 11:56 [facility] % Monocytes 6.8 % 11/20/2017 11:56 [facility] % Eosinophils 1.9 % 11/20/2017 11:56 [facility] % Basophils 0.9 % 11/20/2017 11:56 [facility] % Immature Grans 0.6 % 11/20/2017 11:56 [facility] ABS Neutrophils 3.47 2.20 - 8.85 K/cmm 11/20/2017 11:56 [facility] ABS Lymphs 2.64 1.09 - 3.30 K/cmm 11/20/2017 11:56 [facility] ABS Monocytes 0.46 0.1 - 0.8 K/cmm 11/20/2017 11:56 EDT [facility] ABS Eosinophils 0.13 0.03 - 0.61 K/cm 11/20/2017 11:56 EDT [facility] ABS Basophils 0.06 0.01 - 0.11 K/cm 11/20/2017 11:56 T [facility] ABS Immature Grans 0.04 0 - 0.06 K/[facility] 11/20/2017 11:56 EDT [facility] Type of Diff: Automated 11/20/2017 11:56 T [facility] Blood specimen (specimen) BLOOD SPECIMEN / Unknown 11/20/2017 10:20 EDT 11/20/2017 11:46 EDT Abdoulaye Adie PACKAGES & DNA PROBE ORDERABLES Performing Organization Address [facility] de Phone Number [facility] [address] [place] [address] * VITAMIN D (25,OH) (11/20/2017 10:20 EDT) 25OH Vitamin D Tot 35.5 30 - 100 ng/ml 11/20/2017 13:24 T [facility] Comment: Reference Range: Deficient = <10 ng/ml Insufficient = 10-30 ng/ml Sufficient = 30-100 ng/ml Toxic = >100 ng/ml Blood specimen (specimen) BLOOD SPECIMEN / Unknown 11/20/2017 10:20 EDT 11/20/2017 11:46 EDT Abdoulaye Adie CHEMISTRY & BLOOD GA S ORDERABLES Performing Organization Address [facility] de Phone Number [facility] [address] [place] [address] * WAD LUBRICATOR ANTIBODIES BY SHEREEN (11/20/2017 10:20 EDT) WAD LUBRICATOR Antibody 3.8 <20 Units 11/25/2017 15:27 EDT [facility] Comment: Negative: <20 Units Weak Positive: 20 - 39 Units Moderate Positive: 40 - 80 Units Strong Positive: >80 Units Results were obtained with the [employer] QUANTA Lite WAD LUBRICATOR SHEREEN. WAD LUBRICATOR Values obtained with different manufacturers' assay methods may not be used interchangeably. The magnitude of the reported IgG levels cannot be correlated to an endpoint titer. A positive result in the QUANTA Lite WAD LUBRICATOR SHEREEN indicates the presence of antibodies reactive with the WAD LUBRICATOR/Sm complex but cannot distinguish between anti-Sm and anti-WAD LUBRICATOR activity. Blood specimen (specimen) BLOOD SPECIMEN / Unknown 11/20/2017 10:20 EDT 11/20/2017 11:46 EDT [facility] IMMUNOLOGY AND SEROL OGY ORDERABLES Performing Organization Address [facility] Co de Phone Number [facility] [address] [place] [address] * SSA/SSB PANEL (11/20/2017 10:20 EDT) SSA Antibody 2.4 <20 Units 11/25/2017 15:27 EDT [facility] Comment: Negative: <20 Units Weak Positive: 20 - 39 Units Moderate Positive: 40 - 80 Units Strong Positive: >80 Units Results were obtained with the [employer] QUANTA Lite SS-A SHEREEN. SS-A values obtained with different manufacturers' assay methods may not be used interchangeably. The magnitude of the reported IgG levels cannot be correlated to an endpoint titer. SSB Antibody 1.7 <20 Units 11/25/2017 15:27 EDT [facility] Comment: Negative: <20 Units Weak Positive: 20 - 39 Units Moderate Positive: 40 - 80 Units Strong Positive: >80 Units Results were obtained with the [employer] QUANTA SS-B SHEREEN. SS-B values obtained with different manufacturers' assay methods may not be used interchangeably. The magnitude of the reported IgG levels cannot be correlated to an endpoint titer. Blood specimen (specimen) BLOOD SPECIMEN / Unknown 11/20/2017 10:20 EDT 11/20/2017 11:46 EDT Abdoulaye Adie IMMUNOLOGY AND SEROL OGY ORDERABLES Performing Organization Address [facility]/ZIP Co de Phone Number [facility] [address] [place] [address] * ANTI DNA (DOUBLE STRAND) (11/20/2017 10:20 EDT) Pathologist [facility] Anti DNA (DS) <12.3 <30 IU/mL 11/25/2017 15:51 EDT [facility] Comment:Results were obtaine d with the [employer] QUANTA Lite dsDNA SC SHEREEN assay. Blood specimen (specimen) BLOOD SPECIMEN / Unknown 11/20/2017 10:20 EDT 11/20/2017 11:46 EDT Abdoulaye Adie IMMUNOLOGY AND SEROL OGY ORDERABLES Performing Organization Address [facility] de Phone Number [facility] [address] [place] [address] * SM (BORRERO) ANTIBODY (11/20/2017 10:20 EDT) [facility] Sm (Borrero) Antibody 5.4 <20 Units 11/25/2017 15:27 EDT [facility] Comment: Negative: <20 Units Weak Positive: 20 - 39 Units Moderate Positive: 40 - 80 Units Strong Positive: >80 Units Results were obtained with the [employer] QUANTA Lite Sm SHEREEN. Sm values obtained with different manufacturers' assay methods may not be used interchangeably. The magnitude of the reported IgG levels cannot be correlated to an endpoint titer. Blood specimen (specimen) BLOOD SPECIMEN / Unknown 11/20/2017 10:20 EDT 11/20/2017 11:46 EDT Abdoulaye Adie IMMUNOLOGY AND SEROL OGY ORDERABLES Performing Organization Address [facility] Co de Phone Number [facility] [address] [place] [address] * ANCA, IFA (11/20/2017 10:20 EDT) Pathologist [facility] ANCA Interpretation Negative Negative 11/21/2017 11:39 EDT [facility] Comment: No titer performed, ANCA screen is negative. Results were obtained with the [employer] NOVA Lite ANCA kit by indirect immunofluorescence. Blood specimen (specimen) BLOOD SPECIMEN / Unknown 11/20/2017 10:20 EDT 11/20/2017 11:46 EDT Abdoulaye Gonzalez IMMUNOLOGY AND SEROL OGY ORDERABLES Performing Organization Address [facility] Co de Phone Number [facility] [address] [place] [address] * ANTI NUCLEAR AB (REILLY), IFA (11/20/2017 10:20 EDT) REILLY Interpretation Negative Negative 2017 11:39 EDT [facility] Comment: No titer performed, REILLY screen is negative. Results were obtained with the [employer] NOVA Lite HEp-2 REILLY kit by indirect immunofluorescence. Blood specimen (specimen) BLOOD SPECIMEN / Unknown 11/20/2017 10:20 EDT 11/20/2017 11:46 EDT Abdoulaye Gonzalez IMMUNOLOGY AND SEROL OGY ORDERABLES Performing Organization Address [facility] de Phone Number [facility] [address] [place] [address] documented in this encounter Visit Diagnoses Diagnosis Fatigue, unspecified type Generalized muscle ache Mylagia and myositis, unspecified Weakness Other malaise and fatigue documented in this encounter Care Teams Master Naval Parachutist Relationship Specialty Start Date End Date Abdoulaye Gonzalez PCP - General 12/22/15 04/05/18 documented as of this encounter
--- OUTSIDE RECORDS SUMMARY | 2024-04-14 20:37 | XMS_ITS | Encounter Summary ---
Author Organization [facility] Address [address] [place] [address] Care Team Providers Care Voip Technician Name Role Phone Fiordaliza Hurt MD Primary Care Provider [phone] Reason for Visit * Reason Comments Contraception remove IUD - not int erested in other forms of BC at this time Encounter Details Date Type Department Care Team (Late st Contact Info) Description 04/08/2018 11:15 EDT Office Visit [facility] O[facility] - [address] [address] Rosario Ivey, [place] [address] [facility], [address] [place] [address] Encounter for IUD removal (Primary Dx) Social History Tobacco Use Types [...] Sign Reading Time Taken Comments Blood Pressure 116/72 04/08/2018 1125 EDT Pulse - - Temperature - - Respiratory Rate - - Oxygen Saturation - - Inhaled Oxygen Concentration - - Weight 90.7 kg (200 lb) 04/08/2018 1125 EDT Height 160 cm (5' 3) 04/08/2018 1125 EDT Body Mass Index 35.43 04/08/2018 1125 EDT documented in this encounter Functional Status Functional [...] No 10/15/2017 documented as of this encounter Progress Notes * Rosario Ivey NP - 04/08/2018 1115 EDT S: Patient is a 28-year-old woman here today for Kyleena IUD removal. She has had the IUD in place about 8 months now but would like removed because she may be considering a in the future. No other fermentologist concerns. O: Pelvic exam: VULVA: normal appearing vulva with no masses, tenderness or lesions, VAGINA: normalappearing vagina with normal color and discharge, no lesions and CERVIX: normal appearing cervix without discharge or lesions, IUD strings not visualized. Kyleena IUD grasped with alligator clamps and removed without difficulty. Patient tolerated well. A: 28 y/o woman presents for Kyleena IUD removal. No strings visualized, so alligator clamps were used to successfully remove the IUD. P: Return to clinic as needed or for annual CARTON AND CAN SUPPLY SUPERVISOR exam. Rosario Ivey NP documented in this encounter Plan of Treatment Not on file documented as of this encounter Goals Goal Patient Goal Type Associated Problems Recent Progress Patient-Stated? Author Blood Pressure < 130/80 Blood Pressure 118/78(2017 16:01 EDT) No Rina Agosto MD Weight Loss General Yes Rina Agosto MD Note: Goal = 145lbs documented as of this encounter Visit Diagnoses Diagnosis Encounter for IUD removal- Primary Encounter for removal of intrauterine contraceptive device documented in this encounter Care Teams Voip Technician Relationship Specialty Start Date End Date Fiordaliza Hurt MD PCP - General 04/06/18 08/16/19 documented as of this encounter
--- OUTSIDE RECORDS SUMMARY | 2024-04-14 20:37 | XMS_ITS | Encounter Summary ---
Author Organization [facility] Address [address] [place] [address] Care Team Providers Care Barrel Marker Name Role Phone Abdoulaye Gonzalez Primary Care Provider [phone] Reason for Visit * Reason Comments Headache started yesterday, n ausea, not able to eat today, keeping hydrated Encounter Details Date Type Department Care Team (Late st Contact Info) Description 02/12/2018 16:00 EDT Office Visit [facility] [place] [address] [place], [place] [phone] Deborah Alicea PA-C [address] [place] [address] Acute intractable headache, unspecified headache type (Primary Dx) Discharge Disposition: Auto Discharge Social History Tobacco Use Types Packs/Day Years [...] Sign Reading Time Taken Comments Blood Pressure 106/76 02/12/2018 1603 EDT Pulse 72 02/12/2018 1603 EDT Temperature - - Respiratory Rate - - Oxygen Saturation - - Inhaled Oxygen Concentration - - Weight 89.8 kg (198 lb) 02/12/2018 1603 EDT Height - - Body Mass Index 35.07 10/22/2017 1053 EDT documented in this encounter Functional Status [...] No 10/15/2017 documented as of this encounter Discharge Diagnoses Diagnosis R51 Headache-R51[ICD-10-CM] documented in this encounter Discharge Disposition Disposition Code Departure Means Destination Auto Discharge documented in this encounter Progress Notes * Deborah Alicea PA - 02/12/2018 1600 EDT Chief Complaint Patient presents with ??? Headache started yesterday, nausea, not able to eat today, keeping hydrated HPI: Gladys Lopez is a 28 y.o. y.o. female here for acute visit c/o severe headache x 2 days. SANTIAGO is bifrontal. Throbbing. Started yesterday around noon. No preceding aura. Gradual worsening since last night. Was sent home from work, considered going to ED but did not want to wake her 2 young sons. Pain currently 9/10. Feels very sensitive to light and sound. Feeling nauseated by pain and has vomited x 2. She has been taking propranolol since 07/2015 (though did not take during ) and since starting it has had very infrequent SANTIAGO. Vertigo has also been much worse since SANTIAGO started yesterday. She was in to see me on 02/04 for c/o vertigo at which time she had a new, mild frontal SANTIAGO. Was doing better for several days after that visit, SANTIAGO persisted but was very intermittent and mild. Only when I was having spells of vertigo. Yesterday symptoms seemed to abruptly worsen- both the SANTIAGO and vertigo. Vertigo is now relatively constant. Worse with looking right with eyes only and with turning head to the right. She finds that staring at ground while she walks helps her not to stumble, has to focus very closely when looking at people with whom she is speaking- if she looks away at all will get vertigo. She describes the vertigo as room spinning. She has been doing home exercises for vertigo and has appt with PT on 02/24. Taking meclizine up to 4x daily and not getting relief. Was initially getting relief with it. She has been sleeping constantly in dark room with AC since last night. No hx of vertigo prior to this episode. No vision changes. She has tried everything for SANTIAGO- OTCs. Excedrin with and without caffeine, naproxen, tylenol, etc. No relief at all. ROS: See HPI. Patient Active Problem List [...] needed for Wheezing. 1 Inhaler 11 ??? FERROUS SULFATE (IRON ORAL) Take by mouth daily. ??? fluticasone (FLOVENT HFA) 110 mcg/actuation inhaler Inhale 1 Puff as directed every 12 hours. Reported on 11/04/2016 1 Inhaler 11 ??? ibuprofen (MOTRIN) 400 mg tablet Take 1 Tab by mouth every 4 hours as needed for Pain. ??? levonorgestrel (KYLEENA) 17.5 mcg/24 hr (5 years) IUD 1 Each by intrauterine route Now. ??? meclizine (ANTIVERT) 25 mg tablet Take 1 Tab by mouth 4 times daily as needed for Dizziness or Nausea. 20 Tab 1 ??? propRANolol (INDERAL) 20 mg tablet Take 1 Tab by mouth daily. 90 Tab 3 No current facility-administered medications on file prior to visit. BP 106/76 Pulse 72 Wt 89.8 kg (198 lb) BMI 35.07 kg/m2 Physical Exam: Patient appears well, alert and oriented x 3, pleasant, cooperative. In mild distress due to pain. Vitals are as noted. Neuro: Cranial nerves are normal, normal gait and coordination. PER. EOM's intact. Assessment/Plan: Gladys was seen today for headache. Diagnoses and all orders for this visit: Acute intractable headache, unspecified headache type Other orders - aspirin/acetaminophen/caffeine (EXCEDRIN MIGRAINE ORAL); Take by mouth. - aspirin 81 mg EC tablet; Take 81 mg by mouth daily. Pt with intractable, severe SANTIAGO and nausea associated with worsening vertigo. Sent to ED by car for fluids, pain and nausea medication, possible imaging. Recommended she schedule ED f/u with our office afterwards. documented in this encounter Plan of Treatment Not on file documented as of this encounter Goals Goal Patient Goal Type Associated Problems Recent Progress Patient-Stated? Author Blood Pressure < 130/80 Blood Pressure 118/78(2017 16:01 EDT) No Rina Agosto MD Weight Loss General Yes Rina Agosto MD Note: Goal = 145lbs documented as of this encounter Visit Diagnoses Diagnosis Acute intractable headache, unspecified headache type- Primary documented in this encounter Discontinued Medications Medication Sig Discontinue Reason Start Date End Da te sertraline (ZOLOFT) 50 mg tablet Please take 1/2 tab by mouth daily for 1 week and then increase to 1 tab by mouth daily. 08/13/2017 02/12/2018 VITS62/FA/OM3/DHA/EPA ( GUMMY ORAL) Take by mouth daily. 02/12 tretinoin (RETIN-A) 0.025 % cream Apply topically to affected area at bedtime. Apply a pea size amount to face once a night for acne. Do not apply immediately after washing, may sting. 10/28/2017 02/12/2018 triamcinolone (KENALOG) 0.1 % ointment Apply topically to affected area 2 times daily. 10/21/2017 02/12/2018 documented as of this encounter Historical Medications * This list may reflect changes made after this encounter. Medication Sig Dispensed Refills Start Date End Date aspirin 81 mg EC tablet Take 81 mg by mouth daily. aspirin/acetaminophen/caff eine (EXCEDRIN MIGRAINE ORAL) Take by mouth. added in this encounter Care Teams Barrel Marker Relationship Specialty Start Date End Date Abdoulaye Gonzalez PCP - General 12/22/15 04/05/18 documented as of this encounter
--- OUTSIDE RECORDS SUMMARY | 2024-04-14 20:37 | XMS_ITS | Encounter Summary ---
Author Organization [facility] Address [address] [place] [address] Care Team Providers Care Publicist Name Role Phone Abdoulaye Gonzalez Primary Care Provider Reason for Visit * Reason Onset Date Comments Migraine 02/12/2018 Dizziness 02/12/2018 Encounter Details Date Type Department Care Team (Late st Contact Info) Description 02/12/2018 Telephone [facility] - [address] [phone] Abdoulaye Gonzalez [address] [place] [id number] Migraine; Dizziness Social History Tobacco Use Types Packs/Day [...] encounter Miscellaneous Notes * Telephone Encounter - Saad Albrecht RN - 02/12/2018 1059 EDT SANTIAGO started last nite, it is bad, 03/19/10. It is a frontal type SANTIAGO She also has h/o asthma, and this has bothered a bit intermit lately. She is staying inside mostly b/c feels so much worse when goes outside. She feels she is hydrating enough. Also may be dizzy, liteheaded, and has nausea The SANTIAGO will not go away She has tried ibuprofen, tylenol, excedrin, baby asa, and does take propanolol daily. Gave pt an appoint this afternoon 4:00, but she may also go directly to ED if prefers She will stay lying down as this feels best, and cont to drink water. * Telephone Encounter - Apurva Serna - 02/12/2018 1014 EDT Reason for Call: Migraine and Dizziness Summary/Symptoms: Pt asking to speak with a nurse, states that she has a migraine and dizziness / vertigo and that she is maxing out on her medication. Could not go to work last night. Is looking for some input/ assistance. Onset and Duration? Worse the past couple days Appointment Offered? No Apurva Serna 02/12/2018 10:15 documented in this encounter Plan of Treatment [...] on filedocumented in this encounter Care Teams Publicist Relationship Specialty Start Date End Date MgAbdoulaye gusman PCP - General 12/22/15 04/05/18 documented as of this encounter
--- OUTSIDE RECORDS SUMMARY | 2024-04-14 20:37 | XMS_ITS | Encounter Summary ---
Author Organization [facility] Address [address] [place] [address] Care Team Providers Care Correctional Nurse Name Role Phone Abdoulaye Gonzalez Primary Care Provider [phone] Reason for Visit * Reason Comments Rash on both elbows, ligh t headed, headaches and dizziness X 3 days Encounter Details Date Type Department Care Team (Late st Contact Info) Description 02/03/2018 10:30 EDT Office Visit [facility] Adult Primary [facility] - [place] [address] [place], [place] [phone] Deborah Alicea PA-C [address] [place] [address] Dizziness (Primary Dx); Vertigo Discharge Disposition: Auto Discharge Social History Tobacco [...] Sign Reading Time Taken Comments Blood Pressure 108/76 02/03/2018 1424 EDT standi ng Pulse 80 02/03/2018 1424 EDT Temperature 35.8 ??C (96.4 ??F) 02/03/2018 1039 EDT Respiratory Rate 12 02/03/2018 1039 EDT Oxygen Saturation - - Inhaled Oxygen Concentration - - Weight - [...] as of this encounter Discharge Diagnoses Diagnosis O90.5 thyroiditis-O90.5[ICD-10-CM] documented in this encounter Patient Instructions * Patient Instructions* Deborah Alicea PA - 02/03/2018 11:51 EDT Images from the original note were not included. Neti pots 1-2 x daily. (Sinus rinse) [facility] Patient Instructions Uriel Maneuver at Home for Vertigo: Exercises Your Care Instructions Vertigo is a spinning or whirling sensation when you move your head. Your doctor may have moved you in different positions to help your vertigo get better faster. This is called the Uriel maneuver. Your doctor also may have asked you to do these exercises at home. Do the exercises as often as your doctor recommends. If your vertigo is getting worse, your doctor may have you change the exercise or stop it. Step 1 Step 1 1. Sit on the edge of a bed or sofa. Step 2 1. Turn your head 45 degrees in the direction your doctor told you to. This should be toward the ear that causes the most vertigo for you. In this picture, the woman is turning toward her left ear. Step 3 1. Tilt yourself backward until you are lying on your back. Your head should still be at a 45-degree turn. Your head should be about midway between looking straight ahead and looking out to your side. Hold for 30 seconds. If you have vertigo, stay in this position until it stops. Step 4 1. Turn your head 90 degrees toward the ear that has the least vertigo. In this picture, the woman is turning to the right because she has vertigo on her left side. The point of your chin should be raised and over your shoulder. Hold for 30 seconds. Step 5 1. Roll onto the side with the least vertigo. You should now be looking at the floor. Hold for 30 seconds. Follow-up care is a joyner part of your treatment and safety. Be sure to make and go to all appointments, and call your doctor if you are having problems. It's also a good idea to know your test resultsand keep a list of the medicines you take. Where can you learn more? Go to [email or web address] or log into your [employer] Online account at [email or web address]. Enter P834 in the search box to learn more about Uriel Maneuver at Home for Vertigo: Exercises. Current as of: May 19, 2017 Content Version: 11.6 ?? [id number] [employer]. Care instructions adapted under license by [facility] If you have questions about a medical condition or this instruction, always ask your healthcare professional. [employer] disclaims any warranty or liability foryour use of this information. [facility] Patient Instructions Vertigo: Exercises Your Care Instructions Here are some examples of typical rehabilitation exercises for your condition. Start each exercise slowly. Ease off the exercise if you start to have pain. Your doctor or physical therapist will tell you when you can start these exercises and which ones will work best for you. How to do the exercises Exercise 1 1. Stand with a chair in front of you and a wall behind you. If you begin to fall, you may use themfor support. 2. Stand with your feet together and your arms at your sides. 3. Move your head up and down 10 times. Exercise 2 1. Move your head side to side 10 times. Exercise 3 1. Move your head diagonally up and down 10 times. Exercise 4 1. Move your head diagonally up and down 10 times on the other side. Follow-up care is a joyner part of your treatment and safety. Be sure to make and go to all appointments, and call your doctor if you are having problems. It's also a good idea to know your test resultsand keep a list of the medicines you take. Where can you learn more? Go to www.[employer].net/[email or web address] [employer]er or log into your [employer] Online account at [email or web address]. Enter F349 in the search box to learn more about Vertigo: Exercises. Current as of: December 12, 2016 Content Version: 11.6 ?? [id number] [employer]. Care instructions adapted under license by [facility] If you have questions about a medical condition or this instruction, always ask your healthcare professional. [employer] disclaims any warranty or liability foryour use of this information. documented in this encounter Discharge Disposition Disposition Code Departure Means Destination Auto Discharge documented in this encounter Progress Notes * Deborah Alicea PA - 02/03/2018 1030 EDT Chief Complaint Patient presents with ??? Rash on both elbows, light headed, headaches and dizziness X 3 days HPI: Gladys Lopez is a 27 y.o. y.o. female here for acute visit c/o dizziness. Feels constantly mildly lightheaded x 3 days. Like I'm in a fog. Not as bad when she is seated, worse when she is moving around or standing. Also feels briefly dizzy when she turns her head or when she stands quickly. Describes this as blackness with a little bit of stars when she stands quickly, room tilting when she turns head. Ifshe makes an effort to focus quickly this helps. Has a mild frontal SANTIAGO which is fairly unusual for her since she has been on propranolol for SANTIAGO prevention. No vision changes. No nasal congestion. Left ear has been bothersome- initially felt sore to touch, like a zit inside, more recently has felt filled with wax. Unsure if she has had ringing. Sleeping well. Has had ongoing body fatigue but not too feeling too tired- is adjusting to new work schedule (nights). Seasonal allergies have been bothering her more. Off singulair since . Has had vaginal bleeding since January 22. Heavier for the first 7 days, 2 pads per day. Soaking 1 pad per day for the past 6 days. She has a new IUD x 4 mo (since baby was 2 mo) through OBGYN. She did speak with them about her symptoms and they advised her schedule f/u with them for bleeding/IUD and to see us about her other symptoms. Started iron last night. Reports hx iron def anemia and has been told to take iron with menses. Rash on both arms forearms, noticed last night. Does not hurt or itch. She recalls leaning on back of bath mat while bathing her kids, suspects it could be from that. She is nursing, has 6 mo baby. Returned to work from maternity leave 2 nights ago. 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 Reports she had and asthma attack at work 2 nights ago, did not have inhaler with her so drank coffee and sat down and was ok. No other SOB aside from that episode. ROS: See HPI. No fevers/chills/nausea/vomiting. Diarrhea 3-4 days ago only (has IBS and thinks was related to diet change), otherwise no bowel changes. No abdominal pain aside from mild tenderness around incision. Patient Active Problem List Diagnosis ??? Endometriosis [...] every 4 hours as needed for Pain. (Patientnot taking: Reported on 02/03/2018) ??? levonorgestrel (KYLEENA) 17.5 mcg/24 hr (5 years) IUD 1 Each by intrauterine route Now. ??? VITS62/FA/OM3/DHA/EPA ( GUMMY ORAL) Take by mouth daily. ??? propRANolol (INDERAL) 20 mg tablet Take 1 Tab by mouth daily. 90 Tab 3 ??? sertraline (ZOLOFT) 50 mg tablet Please take 1/2 tab by mouth daily for 1 week and then increase to 1 tab by mouth daily. 90 Tab 1 ??? tretinoin (RETIN-A) 0.025 % cream Apply topically to affected area at bedtime. Apply a pea sizeamount to face once a night for acne. Do not apply immediately after washing, may sting. (Patient not taking: Reported on 11/11/2017) 45 g 1 ??? triamcinolone (KENALOG) 0.1 % ointment Apply topically to affected area 2 times daily. (Patientnot taking: Reported on 11/11/2017) 15 g 1 No current facility-administered medications on file prior to visit. BP 124/76 Pulse 76 Temp 35.8 ??C (96.4 ??F) (Tympanic) Resp 12 ? Yes Physical Exam: Patient appears well, alert and oriented x 3, pleasant, cooperative. Vitals are as noted. Neck supple and free of adenopathy. HEENT: serous effusion on right side, Left TM a bit dull, no redness. Canal with dry, flaky wax. Noredness. Throat with some PND. Nasal mucosa is edematous, no discharge. Eyes without redness or discharge. Nystagmus noted with looking to far right. Heart: RRR Lungs: CTAB Abdomen: soft, nontender, no masses. No guarding or rigidity. Skin: prox forearms with macular red rash. Non-blanching. Nontender. No rashes elsewhere on arms, trunk. Neuro: CN intact, normal speech and gait. Assessment/Plan: Gladys was seen today for rash. Diagnoses and all orders for this visit: Dizziness - Anemia [place] [facility] Primary Care Use Only (Patients >= 18yrs); Future - Comprehensive Metabolic Panel (CMP); Future Lightheadedness- may be having some postural hypotension but no orthostasis on measurements today. Recommended pushing fluids with lytes. Labs today to look for anemia/ lyte disturbance. Vertigo- suspect mild positional vertigo, likely related to serous effusion though could be canalith issue. Recommended neti pot/sinus rinsing, exercises. F/u if worsening. Vaginal bleeding- f/u with [facility] Asthma- she will take her inhaler with her to work. Rash- reassurance. This does look like a bit of bruising from contact with bath mat. documented in this encounter Plan of Treatment Not on file documented as of this encounter Goals Goal Patient Goal Type Associated Problems Recent Progress Patient-Stated? Author Blood Pressure < 130/80 Blood Pressure 118/78(2017 16:01 EDT) No Rina Agosto MD Weight Loss General Yes Rina Agosto MD Note: Goal = 145lbs documented as of this encounter Results * COMPREHENSIVE METABOLIC PANEL (CMP) (02/03/2018 12:07 EDT) [facility] Potassium 4.9 3.5 - 5.0 mEq/L 02/03/2018 13:24 [facility] Sodium 140 136 - 145 mEq/L 02/03/2018 13:24 [facility] Chloride 105 96 - 110 mEq/L 02/03/2018 13:24 [facility] CO2 24 22 - 32 mEq/L 02/03/2018 13:24 [facility] Total Alkaline Phosphatase 99 38 - 126 U/L 02/03/2018 13:24 [facility] Bilirubin, Total <0.5 <1.4 mg/dl 02/04/20 18 13:24 [facility] AST 18 15 - 46 U/L 02/03/2018 13:24 [facility] ALT 17 <53 U/L 02/03/2018 13:24 [facility] Albumin 4.5 3.4 - 4.9 g/dl 02/03/2018 13:24 [facility] Total Protein 7.5 6.3 - 8.2 g/dl 02/03/2018 13:24 [facility] Creatinine 0.58 0.52 - 1.04 mg/dl 02/03/2018 13:24 [facility] GFR, Calculated 127 >60 ml/min/1.7 3m2 02/03/2018 13:24 [facility] Comment: eGFR calculated using CKD-EPI equation for non Americans. Multiply eGFR by 1.16 for Americans. BUN 13 10 - 26 mg/dl 02/03/2018 13:24 [facility] Calcium 9.8 8.5 - 10.5 mg/dl 02/03/2018 13:24 [facility] Calculated Calcium 9.4 8.5 - 10.5 mg/dl 02/03/2018 13:24 [facility] Glucose, Serum 78 70 - 100 mg/dl 02/03/2018 13:24 [facility] Fasting? YES 02/03/2018 12:04 [facility] Blood specimen (specimen) BLOOD SPECIMEN / Unknown 02/03/2018 12:07 EDT 02/03/2018 12:51 EDT Deborah Alicea PA-C CHEMISTRY & BLOOD G ORDERABLES Performing Organization Address City/State/[facility] Co de Phone Number [facility] [address] [place] [address] * (ABNORMAL) [facility]EM[facility] PRIMARY CARE USE ONLY (PATIENTS >=18YRS) (02/03/2018 12:07 EDT) WBC 7.56 4.0 - 12.4 K/cmm 02/03/2018 13:02 [facility] RBC 5.01 3.86 - 5.04 M/cmm 02/03/2018 13:02 [facility] Hemoglobin 13.2 11.6 - 15.2 gm/dl 02/03/2018 13:02 [facility] HCT 39.6 34.9 - 44.4 % 02/03/2018 13:02 [facility] MCV 79(L) 81 - 98 fl 02/03/2018 13:02 [facility] MCH 26.3(L) 26.7 - 33.3 pg 02/03/2018 13:02 [facility] MCHC 33.3 32.1 - 35.9 gm/dl 02/03/2018 13:02 [facility] RDW-CV 14.6 <14.7 % 02/03/2018 13:02 [facility] RDW-SD 41.8 <50.4 fl 02/03/2018 13:02 [facility] PLT 261 141 - 377 K/cmm 02/03/2018 13:02 [facility] MPV 11.0 9.5 - 12.7 fl 02/03/2018 13:02 [facility] % Neutrophils 51.0 % 02/03/2018 13:02 [facility] % Lymphocytes 39.3 % 02/03/2018 13:02 [facility] % Monocytes 6.0 % 02/03/2018 13:02 [facility] % Eosinophils 2.1 % 02/03/2018 13:02 [facility] % Basophils 0.9 % 02/03/2018 13:02 [facility] % Immature Grans 0.7 % 02/03/2018 13:02 [facility] ABS Neutrophils 3.86 2.20 - 8.85 K/cmm 02/03/2018 13:02 [facility] ABS Lymphs 2.97 1.09 - 3.30 K/cmm 02/03/2018 13:02 [facility] ABS Monocytes 0.45 0.1 - 0.8 K/cmm 02/03/2018 13:02 [facility] ABS Eosinophils 0.16 0.03 - 0.61 K/cmm 02/03/2018 13:02 [facility] ABS Basophils 0.07 0.01 - 0.11 K/cmm 02/03/2018 13:02 [facility] ABS Immature Grans 0.05 0 - 0.06 K/cmm 02/03/2018 13:02 EDT [facility] Type of Diff: Automated 02/03/2018 13:02 EDT [facility] Retic Ct (Uncorrected) 2.3 0.5 - 2.5 % 02/03/2018 13:02 T [facility] Hold SST Hold for further testing. Specimen will be held for 5 days. 02/03/2018 12:04 EDT [facility] Anemia Summary 02/03/2018 13:02 EDT [facility] Comment: The hemagram results indicate the absence of anemia. No further reflex testing is necessary. Blood specimen (specimen) BLOOD SPECIMEN / Unknown 02/03/2018 12:07 EDT 02/03/2018 12:51 EDT Deborah Alicea PA-C HEMATOLOGY & PF4 OR DERABLES [facility] [address] [place] [address] documented in this encounter Visit Diagnoses Diagnosis Dizziness- Primary Dizziness and giddiness Vertigo Dizziness and giddiness documented in this encounter Discontinued Medications Medication Sig Discontinue Reason Start Date End Da te amoxicillin (AMOXIL) 875 mg tablet Take 1 Tab by mouth 2 times daily. 12/23/2017 02/03/2018 docusate sodium (COLACE) 100 mg capsule Take 1 Cap by mouth 2 times daily. 08/12/2017 02/03/2018 documented as of this encounter Care Teams Correctional Nurse Relationship Specialty Start Date End Date Abdoulaye Gonzalez PCP - General 12/22/15 04/05/18 documented as of this encounter
--- OUTSIDE RECORDS SUMMARY | 2024-04-14 20:37 | XMS_ITS | Encounter Summary ---
Author Organization [facility] Address [address] [place] [address] Care Team Providers Care Cooler Tender Name Role Phone Abdoulaye Gonzalez Primary Care Provider [phone] Reason for Visit * Reason Onset Date Comments Follow-up 02/03/2018 Encounter Details Date Type Department Care Team (Late st Contact Info) Description 02/03/[address] [facility] Adult Primary Care - [place] [address] [place], [place] [phone] Deborah Alicea PA-C [address] [place] [phone] Follow-up Social History Tobacco Use Types Packs/Day Years [...] encounter Miscellaneous Notes * Telephone Encounter - Renetta Segundo - 02/03/2018 1459 EDT TC to pt to relay Elvira Alicea's msg re: singulair. Message was left. * Telephone Encounter - Deborah Alicea PA - 02/03/2018 1445 EDT Singulair concentrations in breastmilk have not been studied so safety to nursing is really not known. Though one source (epocrates) says it is safe, I do not feel comfortable refilling while she is nursing. The netipots may help with her allergy symptoms. documented in this encounter Plan of Treatment [...] on filedocumented in this encounter Care Teams Cooler Tender Relationship Specialty Start Date End Date Mguzma Abdoulaye PCP - General 12/22/15 04/05/18 documented as of this encounter
--- OUTSIDE RECORDS SUMMARY | 2024-04-14 20:37 | XMS_ITS | Encounter Summary ---
Author Organization [facility] Address [address] [place] [address] Care Team Providers Care Winch Derrick Operator Name Role Phone Abdoulaye Gonzalez Primary Care Provider [phone] Reason for Visit * Reason Onset Date Comments Appointment Related 02/06/2018 Encounter Details Date Type Department Care Team (Late st Contact Info) Description 02/06/2018 Telephone [facility] Rehabilitation Therapy [address] [address] Therapy, Physical Appointment Related Social History Tobacco Use Types [...] encounter Miscellaneous Notes * Telephone Encounter - IndependenceTiff hopson - 02/06/2018 1423 EDT [facility] - [address] [address] Telephone Intake Information for Scheduling NEW Patients for Therapy Script/referral: in EPIC Referring Provider: Abdoulaye Gonzalez NP Diagnosis: vertigo Do you have constant spinning? No Are you taking medication for this problem? Yes If YES, what type? Patient is taking Meclazine for vertigo. MD ordered it as every 4 hours / as needed. Let her know that it would be best to try not to take it the day of her appointment. Primary Insurance: [facility] Notes/other: First opening 02/24 with Adrianna MezaAleta - will add to wait list for sooner appointment. Friday's work best as her is off that day and could watch the children for her. Tiff Lucero 02/06/2018 documented in this encounter Plan of Treatment [...] on filedocumented in this encounter Care Teams Winch Derrick Operator Relationship Specialty Start Date End Date Abdoulaye Gonzalez PCP - General 12/22/15 04/05/18 documented as of this encounter
--- OUTSIDE RECORDS SUMMARY | 2024-04-14 20:37 | XMS_ITS | Encounter Summary ---
Author Organization [facility] Address [address] [place] [address] Care Team Providers Care Assembler Bonding Name Role Phone Abdoulaye Gonzalez Primary Care Provider [phone] Encounter Details Date Type Department Care Team (Late st Contact Info) Description 11/11/2017 Results Only [facility] Adult Primary Care - [address] [phone] Abdoulaye Gonzalez [address] [place] [address] Social History Tobacco Use Types Packs/Day Years [...] Procedure Name Priority Date/Time Associated Diagnosis Comments THYROTROPIN RECEPTOR ANTIBODY Routine 11/11/2017 11:18 EDT MALIA DIFF COMMENT Routine 11/11/2017 11: 18 EDT T3, TOTAL Routine 11/11/2017 11:18 EDT T4 FREE Routine 11/11/2017 11:18 EDT documented in this encounter Results * T3, TOTAL (11/11/2017 11:18 EDT) T3, Total 123 97 - 169 ng/dl 11/12/2017 14:04 EDT [facility] BLOOD SPECIMEN / Unknown 11/11/2017 11:18 EDT 11/11/2017 14:02 EDT Abdoulaye Hollidayie CHEMISTRY & BLOOD GA S ORDERABLES [facility] [address] [place] [address] * THYROTROPIN RECEPTOR ANTIBODY (11/11/2017 11:18 EDT) Thyrotropin Receptor Ab <1.00 0.00 - 1.75 IU/L 11/14/2017 8:02 EDT [facility] Comment: (Note) . ADDITIONAL INFORMATION At a decision limit of 1.75 IU/L, this assay has 97% sensitivity and 99% specificity for detection of Graves' disease. In healthy individuals and in patients with thyroid disease without diagnosis of Graves' disease, the upper limit of anti-TSHR values are 1.22 IU/L and 1.58 IU/L, respectively (97.5th percentiles). Performed by: [facility]: [address], [place] [address], Lab Dir: Luiz Kumari II, M.D., Ph.D. BLOOD SPECIMEN / Unknown 11/11/2017 11:18 EDT 11/11/2017 14:02 EDT Abdoulaye [facility] CHEMISTRY & BLOOD GA S ORDERABLES Performing Organization Address [facility] Co de Phone Number [facility] [address] [place] [address] * T4 FREE (11/11/2017 11:18 EDT) Pathologist [facility] T4, Free 1.0 0.8 - 2.2 ng/dl 11/12/2017 13:50 EDT [facility] BLOOD SPECIMEN / Unknown 11/11/2017 11:18 EDT 11/11/2017 14:02 EDT Abdoulaye Reniac CHEMISTRY & BLOOD GA S ORDERABLES Performing Organization Address [facility] de Phone Number [facility] [address] [place] [address] * MALIA DIFF COMMENT (11/11/2017 11:18 EDT) Differential Comment Microcytic erythrocytosis raises the possibility of heterozygous thalassemia. If clinically indicated, hemoglobin evaluation may be of assistance in addressing this possibility after ruling out iron deficiency. 11/11/2017 15:54 EDT [facility] BLOOD SPECIMEN / Unknown 11/11/2017 11:18 EDT 11/11/2017 14:02 EDT Abdoulaye Gonzalez HEMATOLOGY & PF4 ORD ERABLES Performing Organization Address City/[facility] Co de Phone Number [facility] [address] [place] [address] documented in this encounter Visit Diagnoses Not on filedocumented in this encounter Care Teams Assembler Bonding Relationship Specialty Start Date End Date Abdoulaye Gonzalez PCP - General 12/22/15 04/05/18 documented as of this encounter
--- OUTSIDE RECORDS SUMMARY | 2024-04-14 20:37 | XMS_ITS | Encounter Summary ---
Author Organization [facility] Address [address] [place] [address] Care Team Providers Care Program Admin Name Role Phone Abdoulaye Gonzalez Primary Care Provider [phone] Reason for Referral * RECEIVER (Routine) - New Request Specialty Diagnoses / Procedures Referred By Gregory velez Referred To Contact Diagnoses IUD check up Procedures PERSONAL COACH US PELVIS TRANSVAGINAL Cecelia Reece NP [address] [place] [address] Referral ID Status Reason Start Date Expiration Date V isits Requested Visits Authorized [id number] New Request 01/14/2018 1 1 Reason for Visit * Reason Onset Date Comments Vaginal Bleeding 01/14/2018 Encounter Details Date Type Department Care Team (Late st Contact Info) Description 01/14/2018 Telephone [facility] OBGYN Services - [address] [address] Vida Lawson, RN Vaginal Bleeding Social History Tobacco Use Types Packs/Day Years [...] encounter Miscellaneous Notes * Telephone Encounter - Vida Lawson RN - 01/14/2018 5566 EDT Gladys HU:had intercourse & immediately bleed like a period, recently had a child & now has an IUD. Spoke with Gladys: has IUD, yesterday had intercourse with her and began to bleed, said a good amount, like a regular period, used regular pad & soaked ~ 1/3 pad/ 2hrs, then bleeding resolved & now no longer bleeding. Had IUD check & was told her strings were short & it was likely her IUD had shifted. IUD placed 10/22 & strings trimmed to 2 cm, at IUD check on 12/24 strings were 1cm. Advised will speak with Midwives & either DAMASO automobile sales consultant or I will TCB. Spoke with Santosh Reece: to place order for US to check placement of IUD. Spoke with Gladys: advised as per conversation with DAMASO above, offered appt on Tuesday 01/30, but she prefers appt on Friday. U/S appt given for 02/02/18 @ 2:30pm. Advised if has another incident of bleeding after intercourse or cramps that are worse than regular period cramps should call back, use back up contraception until IUD placement is verified, cramping may indicate IUD being expelled & if expelled should save it so we can verify it is intact. If VB is heavy, soaking a maxipad/hr >2 hrs should to to ER. documented in this encounter Plan of Treatment Not on file documented as of this encounter Goals Goal Patient Goal Type Associated Problems Recent Progress Patient-Stated? Author Blood Pressure < 130/80 Blood Pressure 118/78(2017 16:01 EDT) No Rina Agosto MD Weight Loss General Yes Rina Agosto MD Note: Goal = 145lbs documented as of this encounter Procedures Procedure Name Priority Date/Time Associated Diagnosis Comments PERSONAL COACH US PELVIS TRANSVAGINAL Routine 02/02/2018 14:56 EDT IUD check up documented in this encounter Results * PERSONAL COACH US PELVIS TRANSVAGINAL (02/02/2018 14:56 EDT) Anatomical Region Laterality Modality Other 02/02/2018 14:5 6 EDT 04/09/2018 17:00 EDT Narrative 04/09/2018 17:00 EDT Indication IUD Check. Bleeding after intercourse. Uterus ======= Uterus: ?Visualized Uterus position: ?? Anteverted Uterine malformations: None Myometrium: ?Appears normal Endometrium: ?? Thin endometrium, IUD is correctly placed within the endometrium Cervix details: ?Normal appearance Uterus long ?6.8 cm Uterus ap ??3.7 cm Uterus tr ??4.9 cm Endometrial thickness, total ?? 2.8 mm Fibroids: ??No fibroids identified Polyps: ?No polyps identified Right Ovary Rt ovary: ??Visualized Rt ovary morphology: ?? Multifollicular Rt ovary D1 ?3.7 cm Rt ovary D2 ?2.1 cm Rt ovary D3 ?2.1 cm Rt ovary mean ??2.6 cm Rt ovary vol ?? 8.2 cm cubed Left Ovary Lt ovary: ??Visualized, normal appearance Lt ovary morphology: ?? multifollicular Lt ovary D1 ?3.4 cm Lt ovary D2 ?1.4 cm Lt ovary D3 ?1.1 cm Lt ovary mean ??1.9 cm Lt ovary vol ?? 2.6 cm cubed Cul de Sac Appears normal. No free fluid visualized. Impression Transvaginal Pelvic [id number] normal ultrasound. Follow-up Follow-up as clinically indicated. Comment ========= Ultrasound findings discussed w/patient. DATE OF SERVICE: 02/02/2018 Procedure Note Rina Boogie MD - 04/09/2018 Indication IUD Check. Bleeding after intercourse. Uterus ======= Uterus: Visualized Uterus position: Anteverted Uterine malformations: None Myometrium: Appears normal Endometrium: Thin endometrium, IUD is correctly placed within the endometrium Cervix details: Normal appearance Uterus long 6.8 cm Uterus ap 3.7 cm Uterus tr 4.9 cm Endometrial thickness, total 2.8 mm Fibroids: No fibroids identified Polyps: No polyps identified Right Ovary Rt ovary: Visualized Rt ovary morphology: Multifollicular Rt ovary D1 3.7 cm Rt ovary D2 2.1 cm Rt ovary D3 2.1 cm Rt ovary mean 2.6 cm Rt ovary vol 8.2 cm cubed Left Ovary Lt ovary: Visualized, normal appearance Lt ovary morphology: multifollicular Lt ovary D1 3.4 cm Lt ovary D2 1.4 cm Lt ovary D3 1.1 cm Lt ovary mean 1.9 cm Lt ovary vol 2.6 cm cubed Cul [place] Sac Appears normal. No free fluid visualized. Impression Transvaginal Pelvic [id number] normal ultrasound. Follow-up Follow-up as clinically indicated. Comment ========= Ultrasound findings discussed w/patient. DATE OF SERVICE: 02/02/2018 Yumiko Gehrett CODING TECHNICIAN CNM IMG US PERSONAL COACH ORDERA BLES documented in this encounter Visit Diagnoses Diagnosis IUD check up- Primary Surveillance of previously prescribed intrauterine contraceptive device documented in this encounter Care Teams Program Admin Relationship Specialty Start Date End Date MgAbdoulaye gusman PCP - General 12/22/15 04/05/18 documented as of this encounter
--- OUTSIDE RECORDS SUMMARY | 2024-04-14 20:37 | XMS_ITS | Encounter Summary ---
Author Organization [facility] Address [address] [place] [address] Care Team Providers Care Wedger Machine Name Role Phone Abdoulaye Gonzalez Primary Care Provider [phone] Reason for Visit * Reason Comments Migraine hx of migraines. Dx with vertigo on February 04 and it has not gone away. Intermittent vertigo and has been taking meclizine. Noise and lights make the headache worse Encounter Details Date Type Department Care Team (Late st Contact Info) Description 02/12/2018 17:38 EDT - 02/12/2018 22:19 EDT Emergency [facility] Emergency Department - [place] [address] [place] [id number] Joey Correa PA-C [address] [place] [address] [id number] Aga Perez PA-C [address] [facility], [address] [place] [address] Emergency, MD Jay Nonintractable headache, unspecified chronicity pattern, unspecified headache type (Primary Dx); Dizziness Discharge Disposition: Home or Self Care Social History Tobacco Use Types Packs/Day [...] Sign Reading Time Taken Comments Blood Pressure 127/85 02/12/20182136 EDT Pulse 85 02/12/20182136 EDT Temperature 36.6 ??C (97.9 ??F) 02/12/2018 1755 EDT Respiratory Rate 16 02/12/20182136 EDT Oxygen Saturation 100% 02/12/20182136 EDT Inhaled Oxygen Concentration - - Weight 90.7 kg (200 lb) 02/12/2018 1755 EDT Height - - Body Mass Index 35.43 10/22/2017 1053 EDT documented in this encounter [...] this encounter Discharge Diagnoses Diagnosis R51 Headache-R51[ICD-10-CM] R42 Dizziness and giddiness-R42[ICD-10-CM] Z91.040 Latex allergy status-Z91.040[ICD-10-CM] Z88.5 Allergy status to narcotic agent status-Z88.5[ICD-10-CM] Z88.6 Allergy status to analgesic agent status-Z88.6[ICD-10-CM] Z79.82 snf (current) use of aspirin-Z79.82[ICD-10-CM] J45.909 Unspecified asthma, uncomplicated-J45.909[ICD-10-CM] Z87.891 Personal history of nicotine dependence-Z87.891[ICD-10-CM] documented in this encounter Discharge Instructions * Discharge Instructions* Aga Perez PA - 02/12/2018 22:17 EDT Rest, drink plenty of fluids. Diet as tolerated. Take motrin or tylenol as needed for pain If your headache pain worsens again and is not controlled with Tylenol or Ibuprofen, if you developbalance problems, vision changes, continuous vomiting, worsening neck pain or stiffness, or any other concerning symptoms, please return to the ED for reevaluation. * Attachments The following attachments cannot be sent through Care Everywhere. * HEADACHE (MOLDOVAN) documented in this encounter Medications at Time of Discharge Medication Sig Dispensed Refills Start Date End Date acetaminophen (TYLENOL) 325 mg tablet Take 2 Tabs by mouth every 4 hours as needed for Pain. 08/12/2017 albuterol 90 mcg/actuation inhaler Inhale 1 Puff as directed every 4 hours as needed for Wheezing. 1 Inhaler 11 09/10/2017 aspirin 81 mg EC tablet Take 81 mg by mouth daily. aspirin/acetaminophen /caffeine (EXCEDRIN MIGRAINE ORAL) Take by mouth. FERROUS SULFATE (IRON ORAL) Take by mouth daily. fluticasone (FLOVENT HFA) 110 mcg/actuation inhaler Inhale 1 Puff as directed every 12 hours. Reported on 11/04/2016 1 Inhaler 11 09/10/2017 ibuprofen (MOTRIN) 400 mg tablet Take 1 Tab by mouth every 4 hours as needed for Pain. 08/12/2017 meclizine (ANTIVERT) 25 mg tablet Take 1 Tab by mouth 4 times daily as needed for Dizziness or Nausea. 20 Tab 1 02/03/2018 propRANolol (INDERAL) 20 mg tabletIndications:robert tatianna prevention Take 1 Tab by mouth daily. 90 Tab 3 09/10/2017 levonorgestrel (KYLEENA) 17.5 mcg/24 hr (5 years) IUD 1 Each by intrauterine route Now. 06/01/2018 documented as of this encounter Discharge Disposition Disposition Code Departure Means Destination Home or Self Care Walk-out Home documented in this encounter ED Notes * Aga Perez PA - 02/12/20182047 EDT I, Rosario Madrid, am scribing for Aga Perez PA while he/she is personally performing the service. Rosario Madrid 02/12/2018 20:48 Gladys Reno is a 28 y.o. female who presents to the ED with headache and dizziness. Care and work-up prior to sign out includes EKG, labs, and treatment with Reglan, Toradol, Benadryl, and IV fluids. I assumed care of patient from AZRA Correa with re-evaluation pending. After I assumed care: 2149: Patient re-evaluation. Reported still feeling a little lightheaded, but significantly improved and amenable to discharge home. Pt re-evaluated prior to discharge with improved symptoms, normal vital signs, and tolerating PO. Pain level prior discharge:0/10. Discussed clinical/diagnostic findings with patient. She questioned medications with , and asked ED pharmacist to weight in with patient - she left the department prior to paperwork, unclear if she had waited for pharmacist Given usual and customary return instructions prior to discharge This documentation is recorded by Rosario Madrid acting as Scribe under the direction and presenceof Aga Perez PA. Aga Perez PA: I personally performed the services recorded by the scribe in my presence. I confirm the scribe's documentation has been reviewed by me to accurately and completely record my work, treatment, procedures, and medical decision making. Dr. Cantrell was available for supervision. * Joey Correa PA - 02/12/20181927 EDT DOS: 02/12/2018 Chief Complaint Patient presents with ??? Migraine hx of migraines. Dx with vertigo on February 04 and it has not gone away. Intermittent vertigo and has been taking meclizine. Noise and lights make the headache worse HPI The patient is a 28 y.o. female who presents today with Migraine (hx of migraines. Dx with vertigo on February 04 and it has not gone away. Intermittent vertigo and has been taking meclizine. Noise and lights make the headache worse) HPI 28 yo female with a hx of migraines comes in for a bilateral frontal headache today. She states it started slowly yesterday around 10am and became severe around 10pm. She states its very similar to prior migraines. She had no visual symptoms at time of onset. She tried motrin and tylenol without relief. She has vomited x 2. She notes intermittent vertigo the past 3 weeks for which she has occasionally been taking meclizine. She notes the dizziness became much worse yesterday. Its worse with movement and better at rest. She is mildly dizzy currently. She notes a spinning sensation. She states at times she is light headed as well. She notes occasional trouble walking but has not fallen. She has had no fever, chills, cough, chest pain, dyspnea, palpitations, abdominal pain, leg pain or leg swelling. No numbness or tingling. Review of Systems Review of Systems see above The patient's past medical, family and social history was reviewed and updated as needed. Allergies Allergen Reactions ??? Adhesive Rash ??? Latex, Natural Rubber Rash ??? Morphine Nausea And Vomiting Morphine caused patient to feel very aggressive ??? Nickel Swelling ??? Tramadol Nausea Only Dizziness Vital Signs Temp: 36.6 ??C (97.9 ??F) Pulse: 90 Resp: 16 SpO2: 100 % BP: 120/71 Physical Exam BP 120/71 Pulse 90 Temp 36.6 ??C (97.9 ??F) Resp 16 Wt 90.7 kg (200 lb) SpO2 100% BMI 35.43 kg/m2 General appearance: alert, oriented. Appears comfortable. HEENT: conjunctiva pink, sclera white. Head atraumatic. No oral lesions. Uvula midline Neck: supple, no lymphadenopathy, full range of motion. Non tender on palpation Cardiac: RRR, no murmur Pulmonary: clear to ausculation bilaterally Abdomen soft and non tender. Neuro: Eoms intact, mild horizontal nystagmus present. No vertical nystagmus. Pupils equal and reactive bilaterally. Soft palate rises symmetrically. Masseter strength symmetric. Facial movements symmetric. Shoulder shrug symmetric. Finger to nose intact. Strength 5/5 in all extremities. Gait normal. Extremities without swelling or tenderness. Skin: warm, dry, no rash Psych: normal affect, behavior appropriate. RESULTS EKG orders: EKG 12-LEAD ECG Reviewed: Findings include: The study has been independently viewed by me. The study has been interpreted independently and contemporaneously by me. The EKG appears to be a good tracing. Attending family and consumer science professor not immediately available for acute interpretation. Radiology orders: None ED Lab Results Labs Reviewed POCT TEST, CLINITEK Result Value Status UPT Result Neg Final Tech ID [id number] Final Relevant Data Procedures ED COURSE A medical screening exam was performed. The patient presents for a migraine headache and dizziness.Her dizziness is consistent with peripheral vertigo. She had labs within the past 2 weeks that werenormal. UPT is negative today. She overall appears well with a normal neuro exam today other then mild horizontal nystagmus. I think stroke is unlikely. IV fluids, reglan, toradol, and benadryl were given Case signed out to AZRA Perez with repeat exam pending. ASSESSMENT AND PLAN Final diagnoses: None DISPOSITION: No disposition on file The patient's pain was managed to an adequate level weighing risk vs. benefit of further medications. Upon departure from the Emergency Department, the patient's pain was 4 on a zero to ten scale. Any further pain treatment will be at the discretion of the provider following up with the patient based on their clinical assessment. Condition at departure from the Emergency Department: Improved PCP: Abdoulaye Wise was available for supervision. 02/12/2018 19:28 No flowsheet data found. * Liliana Heaton, RN - 02/12/2018 9742 EDT Chief Complaint Patient presents with ??? Migraine hx of migraines. Dx with vertigo on February 04 and it has not gone away. Intermittent vertigo and has been taking meclizine. Noise and lights make the headache worse * Chiara Conti - 02/12/2018 3651 EDT TCALL: GLADYS RENO 89 REFERRED BUT OUT PATIENT OFFICE. SEVERE HEAD ACHE WITH VERTIGO. (NOELLE) documented in this encounter Plan of Treatment Not on file documented as of this encounter Goals Goal Patient Goal Type Associated Problems Recent Progress Patient-Stated? Author Blood Pressure < 130/80 Blood Pressure 118/78(2017 16:01 EDT) No Rina Agosto MD Weight Loss General Yes Rina Agosto MD Note: Goal = 145lbs documented as of this encounter Procedures Procedure Name Priority Date/Time Associated Diagnosis Comments ECG REPORT - SCANNED 02/13/2018 15:16 EDT EKG 12-LEAD STAT 02/12/2018 20:13 EDT POCT TEST, CLINITEK STAT 02/12/2018 19:04 EDT documented in this encounter Results * ECG REPORT - SCANNED (02/13/2018 15:16 EDT) 02/13/2018 15:1 6 EDT Scan 2 Welder/Installer PROCEDURE/MINOR JANUARY GICAL ORDERABLES * EKG 12-LEAD (02/12/2018 20:13 EDT) 02/12/2018 20:1 3 EDT Narrative [facility] EKG - 02/13/2018 15:10 EDT ?[facility] Emergency ? Test Date: ?2018-02-12 Pat Name: ? GLADYS SHADIA ?Department: ?? ED ? Room: ? GT22 Gender: ? Female ? Produce Wrapper: ?? : ?1990 ? Requested By: SAMIA Mendoza Number: [id number] ? Reading : ?? EMILE COLLINS MD ? Measurements Intervals ?[place] ? Rate: ? 72 ? P: ?50 AR: ? 152 ?QRS: ?58 QRSD: ? 106 ?T: ?37 QT: ? 406 ? QTc: ?447 ? Interpretive Statements SINUS RHYTHM Compared to ECG 08/12/2017 20:38:24 Sinus tachycardia no longer present I reviewed the tracing and have either agreed or edited the findings in this report. Electronically Signed On 02-13-2018 15:10:36 EDT by EMILE COLLINS MD. Procedure Note Emile Collins MD - 02/13/[address] [facility] Emergency Test Date: 2018-02-12 Pat Name: GLADYS RENO Department: ED Room: GT22 Gender: Female Produce Wrapper: : 1990 Requested By: SAMIA BOURNE Order Number: [id number] Reading MD: EMILE MELTON Measurements Intervals Barnum Rate: 72 P: 50 AR: 152 QRS: 58 QRSD: 106 T: 37 QT: 406 QTc: 447 Interpretive Statements SINUS RHYTHM Compared to ECG 08/12/2017 20:38:24 Sinus tachycardia no longer present I reviewed the tracing and have either agreed or edited the findings inthis report. Electronically Signed On 02-13-2018 15:10:36 EDT by MARTINA FRY. Joey Correa PA-C CARDIAC ECG OR DERABLES [facility] EKG * POCT TEST, CLINITEK (02/12/2018 19:04 EDT) UPT Result Neg Neg 02/12/2018 19:12 EDT [facility] tiler's assistant ID [id number] 02/12/2018 19:12 EDT [facility] Comment:Test performed at [facility] Department Urine specimen (specimen) URINE / Unknown 02/12/2018 19:04 EDT 02/12/2018 19:12 EDT Joey Correa PA-C POINT OF CARE TEST ORDERABLES [facility] [address] [place] [address] documented in this encounter Visit Diagnoses Diagnosis Nonintractable headache, unspecified chronicity pattern, unspecified headache type- Primary Dizziness Dizziness and giddiness documented in this encounter Administered Medications Inactive Administered Medications - up to 3 most recent administrations Medication Order MAR Action Action Date Dose Rate Site diphenhydrAMINE (BENADRYL) injection 12.5 mg 12.5 mg, intravenous, NOW X1, 1 dose, On Lauryn 02/12/18 at 1930, STAT Given 02/12/2018 19:33 EDT 12.5 mg ketOROLAC (TORADOL) injection 15 mg 15 mg, intravenous, NOW X1, 1 dose, On Lauryn 02/12/18 at 1930, STAT Given 02/12/2018 19:33 EDT 15 mg metoCLOPramide (REGLAN) injection 10 mg 10 mg, intravenous, NOW X1, 1 dose, On Lauryn 02/12/18 at 1930, STAT Given 02/12/2018 19:33 EDT 10 mg sodium chloride 0.9 % BOLUS 1,000 mL 1,000 mL, intravenous, NOW X1, 1 dose, On Lauryn 02/12/18 at 1845, STAT New Bag 02/12/2018 19:19 EDT 1,000 mL IV documented in this encounter Active and Recently Administered Medications Times are shown in EDT. Scheduled Medication Order 02/10/2018 02/11/2018 02/12/2018 diphenhydrAMINE (BENADRYL) injection 12.5 mg (COMPLETED) 12.5 mg, intravenous, NOW X1, 1 dose, On Lauryn 02/12/18 at 1930, STAT 1933 (Given - Provid er: Lin Duarte, STACEY) ketOROLAC (TORADOL) injection 15 mg (COMPLETED) 15 mg, intravenous, NOW X1, 1 dose, On Lauryn 02/12/18 at 1930, STAT 1933 (Given - Provid er: Lin Duarte, STACEY) metoCLOPramide (REGLAN) injection 10 mg (COMPLETED) 10 mg, intravenous, NOW X1, 1 dose, On Lauryn 02/12/18 at 1930, STAT 1933 (Given - Provid er: Lin Duarte, STACEY) sodium chloride 0.9 % BOLUS 1,000 mL (COMPLETED) 1,000 mL, intravenous, NOW X1, 1 dose, On Lauryn 02/12/18 at 1845, STAT 1919 (New Bag - Prov ider: Wesley Nguyen)2014 (Completed - Provider: Lin Duarte, STACEY) documented in this encounter Orders Nursing Count Last Ordered Date First Orde red Date INSERT PERIPHERAL IV 1 02/12/2018 documented in this encounter Care Teams Wedger Machine Relationship Specialty Start Date End Date Abdoulaye Gonzalez PCP - General 12/22/15 04/05/18 documented as of this encounter
--- OUTSIDE RECORDS SUMMARY | 2024-04-14 20:37 | XMS_ITS | Encounter Summary ---
Author Organization [facility] Address [address] [place] [address] Care Team Providers Care Elevator Service Mechanic Name Role Phone Abdoulaye Gonzalez Primary Care Provider [phone] Reason for Visit * Reason Onset Date Comments Results 12/09/2017 Encounter Details Date Type Department Care Team (Late st Contact Info) Description 12/09/2017 Telephone [facility] Adult Primary Care - [address] [phone] Abdoulaye Gonzalez [address] [place] [phone] Results Social History Tobacco Use Types Packs/Day Years [...] encounter Miscellaneous Notes * Telephone Encounter - Abdoulaye Gonzalez - 12/10/2017 0949 EDT Spoke w/Gladys about fatigue and hair loss. Given that other labs have all been normal, I suspecther symptoms are due to thyroiditis. Will recheck TSH/T4/T3 to see whether levels have changed in past month. * Telephone Encounter - Svetlana Mccollum RN - 12/09/2017 1418 EDT Please see [employer] message from 12/05 * Telephone Encounter - Kaur Bridges - 12/09/2017 1412 EDT Reason for Call: Results Summary/Symptoms: Pt would like her lab results. Pt states she is not feeling well and still loosing a lot of hair. Please refer to [employer] online message for 12.05.18. Please call Onset and Duration? Appointment Offered? Kaur Bridges 12/09/2017 14:12 documented in this encounter Plan of Treatment Not on file documented as of this encounter Goals Goal Patient Goal Type Associated Problems Recent Progress Patient-Stated? Author Blood Pressure < 130/80 Blood Pressure 118/78(2017 16:01 EDT) No Rina Agosto MD Weight Loss General Yes Rina Agosto MD Note: Goal = 145lbs documented as of this encounter Results * T4 FREE (12/22/2017 14:40 EDT) T4, Free 0.9 0.8 - 2.2 ng/dl 12/22/2017 18:57 EDT [facility] Blood specimen (specimen) BLOOD SPECIMEN / Unknown 12/22/2017 14:40 EDT 12/22/2017 18:29 EDT Abdoulaye Gonzalez CHEMISTRY & BLOOD GA S ORDERABLES Performing Organization Address [facility] Co de Phone Number [facility] [address] [place] [address] * T3 FREE (12/22/2017 14:40 EDT) T3, Free 3.8 2.8 - 5.3 pg/ml 12/22/2017 18:57 EDT [facility] Blood specimen (specimen) BLOOD SPECIMEN / Unknown 12/22/2017 14:40 EDT 12/22/2017 18:29 EDT Abdoulaye Gonzalez CHEMISTRY & BLOOD GA S ORDERABLES Performing Organization Address [facility] de Phone Number [facility] [address] [place] [address] * TSH (12/22/2017 14:40 EDT) TSH 1.52 0.47 - 4.68 uIU/ml 12/22/2017 19:11 EDT [facility] Comment: The results of this assay can be falsely lowered due to the consumption of Biotin. Blood specimen (specimen) BLOOD SPECIMEN / Unknown 12/22/2017 14:40 EDT 12/22/2017 18:29 EDT Abdoulaye Gonzalez CHEMISTRY & BLOOD GA S ORDERABLES Performing Organization Address [facility] Co de Phone Number [facility] [address] [place] [phone] documented in this encounter Visit Diagnoses Diagnosis thyroiditis- Primary Thyroid dysfunction, documented in this encounter Care Teams Elevator Service Mechanic Relationship Specialty Start Date End Date Abdoulaye Gonzalez PCP - General 12/22/15 04/05/18 documented as of this encounter
--- OUTSIDE RECORDS SUMMARY | 2024-04-14 20:37 | XMS_ITS | Encounter Summary ---
Author Organization [facility] Address [address] [place] [address] Care Team Providers Care Inside Sales Agent Name Role Phone Abdoulaye Gonzalez Primary Care Provider [phone] Encounter Details Date Type Department Care Team (Late st Contact Info) Description 03/04/2018 Orders Only [facility] - [address] [id number] Abdoulaye Gonzalez [address] [place] [address] Social History Tobacco Use Types Packs/Day Years [...] Dispensed Refills Start Date End Da te montelukast (SINGULAIR) 10 mg tablet Take 1 Tab by mouth at bedtime. 90 Tab 3 03/04/2018 spironolactone (ALDACTONE) 50 mg tablet Take 1 Tab by mouth 2 times daily. 180 Tab 3 03/04/2018 09/30/2018 documented in this encounter Plan of Treatment [...] on filedocumented in this encounter Care Teams Inside Sales Agent Relationship Specialty Start Date End Date Abdoulaye Gonzalez PCP - General 12/22/15 04/05/18 documented as of this encounter
--- OUTSIDE RECORDS SUMMARY | 2024-04-14 20:37 | XMS_ITS | Encounter Summary ---
Author Organization [facility] Address [address] [place] [address] Care Team Providers Care Dance Master Name Role Phone Abdoulaye Gonzalez Primary Care Provider [phone] Reason for Referral * PT/OT/ST (Routine) - Closed Specialty Diagnoses / Procedures Referred By Gregory velez Referred To Contact Rehab Therapies Diagnoses Benign paroxysmal positional vertigo, unspecified laterality Abdoulaye Gonzalez [address] [place] [address] [facility] [address] [place] [address] Referral ID Status Reason Start Date Expiration Date V isits Requested Visits Authorized [id number] Closed Specialty Services Required 02/05/2018 1 1 Question Answer Reason for Request: BPPV Reason for Visit * Reason Comments Migraine migraine, nausea Encounter Details Date Type Department Care Team (Late st Contact Info) Description 02/04/2018 10:30 EDT Office Visit [facility] Adult Primary [facility] - [place] [address] [place] [address] Abdoulaye Gonzalez [address] [place], [place] [id number] Nausea (Primary Dx); Other migraine with status migrainosus, intractable; Benign paroxysmal positional vertigo, unspecified laterality Social History Tobacco Use Types Packs/Day Years [...] Sign Reading Time Taken Comments Blood Pressure 100/64 02/04/2018 1036 EDT Pulse 76 02/04/2018 1036 EDT Temperature 35.3 ??C (95.6 ??F) 02/04/2018 1036 EDT Respiratory Rate 16 02/04/2018 1036 EDT Oxygen Saturation - - Inhaled Oxygen [...] as of this encounter Progress Notes * Abdoulaye Gonzalez - 02/04/2018 1030 EDT SUBJECTIVE: Chief Complaint Patient presents with ??? Migraine migraine, nausea, dizziness HPI: Here w/, , and toddler son. Has had a generalized headache, nausea, and dizziness for 3 days. Taking APAP, w/minimal relief. Dizziness is mostly vertigo/room spinning type sensation with moving head or eyes from side to side. Stops a few seconds after it comes on. Saw Umesh Alicea yesterday; recommended neti pot, Uriel's for possible BPPV. Hasn't tried yet. Had labsdrawn; no anemia or thyroid d/o. CMP also normal. Prescribed meclizine later in the day by me; didn't fill rx out of concerns for . Patient Active Problem List Diagnosis ??? Endometriosis [...] or Nausea. (Patient not taking: Reported on 02/04/2018) 20 Tab 1 ??? VITS62/FA/OM3/DHA/EPA ( GUMMY ORAL) Take by mouth daily. ??? propRANolol (INDERAL) 20 mg tablet Take 1 Tab by mouth daily. 90 Tab 3 ??? sertraline (ZOLOFT) 50 mg tablet Please take 1/2 tab by mouth daily for 1 week and then increase to 1 tab by mouth daily. (Patient not taking: Reported on 02/04/2018) 90 Tab 1 ??? tretinoin (RETIN-A) 0.025 [...] facility-administered medications on file prior to visit. OBJECTIVE: BP 100/64 Pulse 76 Temp (!) 35.3 ??C (95.6 ??F) (Tympanic) Resp 16 General: Oriented, alert, appears uncomfortable. ASSESSMENT and PLAN: Encounter Diagnoses Name Primary? Other migraine with status migrainosus, intractable ??? Nausea Yes ??? Benign paroxysmal positional vertigo, unspecified laterality IM toradol dose today. Trial of Excedrin Migraine. Meclizine for nausea/dizziness. Pump/dump breast milk and use formula to feed baby for 1-2 days, till headache and dizziness improve. PT consult for BPPV ordered. * Hetal Edouard LPN - 02/04/2018 1030 EDT Patient Education Topic: ketorolac Method: Verbal Taught to: Patient Barriers: None Outcomes: verbalized understanding Hetal Edouard LPN 02/04/2018 11:10 documented in this encounter Plan of Treatment Scheduled Referrals Name Type Priority Associated Diagnoses Orde r Schedule AMB CONS/FOLLOW UP PHYSICAL THERAPY Outpatient Referral Routine Benign paroxysmal positional vertigo, unspecified laterality Ordered: 02/05/2018 documented as of this encounter Goals Goal Patient Goal Type Associated Problems Recent Progress Patient-Stated? Author Blood Pressure < 130/80 Blood Pressure 118/78(2017 16:01 EDT) No Rina Agosto MD Weight Loss General Yes Rina Agosto MD Note: Goal = 145lbs documented as of this encounter Visit Diagnoses Diagnosis Nausea- Primary Nausea alone Other migraine with status migrainosus, intractable Benign paroxysmal positional vertigo, unspecified laterality documented in this encounter Administered Medications Inactive Administered Medications - up to 3 most recent administrations Medication Order MAR Action Action Date Dose Rate Site ketOROLAC (TORADOL) injection 30 mg 30 mg, intramuscular, NOW X1, 1 dose, On Fri02/04/18 at 1130, Routine Given 02/04/2018 11:09 EDT 30 mg Left D eltoid documented in this encounter Orders Medications Ordered That Jean ht Not Have Been Administered Count Last Ordered Date First Ordered Date ketOROLAC (TORADOL) injection 30 mg 1 02/04 documented in this encounter Care Teams Dance Master Relationship Specialty Start Date End Date Abdoulaye Gonzalez PCP - General 12/22/15 04/05/18 documented as of this encounter
--- OUTSIDE RECORDS SUMMARY | 2024-04-14 20:37 | XMS_ITS | Encounter Summary ---
Author Organization [facility] Address [address] [place] [address] Care Team Providers Care Combination Technician Name Role Phone Abdoulaye Gonzalez Primary Care Provider [phone] Encounter Details Date Type Department Care Team (Late st Contact Info) Description 11/11/2017 Phlebotomy Only [address] [address] [employer], Outpatient Other fatigue; Generalized weakness; Pain in both upper extremities; Myalgia Social History Tobacco Use Types Packs/Day Years [...] Procedure Name Priority Date/Time Associated Diagnosis Comments CCP ANTIBODIES Routine 11/11/2017 11:18 EDT Other fatigue Generalized weakness Pain in both upper extremities LYME AB Routine 11/11/2017 11:18 EDT Other fatigue Generalized weakness Pain in both upper extremities Myalgia SED RATE Routine 11/11/2017 11:18 EDT Other fatigue Generalized weakness Pain in both upper extremities Myalgia COMPLETE BLOOD COUNT AND DIFFERENTIAL Routine 11/11/2017 11:18 EDT Other fatigue Generalized weakness Pain in both upper extremities Myalgia RHEUMATOID FACTOR Routine 11/11/2017 11: 18 EDT Other fatigue Generalized weakness Pain in both upper extremities Myalgia C REACTIVE PROTEIN Routine 11/11/2017 11 :18 EDT Other fatigue Generalized weakness Pain in both upper extremities Myalgia TSH Routine 11/11/2017 11:18 EDT Other fatigue Generalized weakness Pain in both upper extremities Myalgia CK Routine 11/11/2017 11:18 EDT Other fatigue Generalized weakness Pain in both upper extremities Myalgia COMPREHENSIVE METABOLIC PANEL (CMP) Routine 11/11/2017 11:18 EDT Other fatigue Generalized weakness Pain in both upper extremities Myalgia documented in this encounter Results * CCP ANTIBODIES (11/11/2017 11:18 EDT) CCP Antibodies <2.5 <5.0 U/mL 11/12/2017 11:44 EDT [facility] BLOOD SPECIMEN / Unknown 11/11/2017 11:18 EDT 11/11/2017 14:02 EDT Abdoulaye Aduzma IMMUNOLOGY AND SEROL OGY ORDERABLES Performing Organization Address [facility] Co de Phone Number [facility] [address] [place] [address] * RHEUMATOID FACTOR (11/11/2017 11:18 EDT) Rheumatoid Factor <20 <20 IU/ml 11/12/2017 11:32 EDT [facility] Blood specimen (specimen) BLOOD SPECIMEN / Unknown 11/11/2017 11:18 EDT 11/11/2017 14:02 EDT Abdoulaye Gonzalez CHEMISTRY & BLOOD GA S ORDERABLES Performing Organization Address [facility] Co de Phone Number [facility] [address] [place] [address] * SED. RATE:WESTERGREN (11/11/2017 11:18 EDT) Pathologist [facility] Sed. Rate Westergren 11 0 - 20 mm/hr 11/11/2017 14:15 EDT [facility] Blood specimen (specimen) BLOOD SPECIMEN / Unknown 11/11/2017 11:18 EDT 11/11/2017 14:02 EDT Abdoulaye Gonzalez HEMATOLOGY & PF4 ORD ERABLES Performing Organization Address [facility]/ZIP Co de Phone Number [facility] [address] [place] [address] * C REACTIVE PROTEIN (11/11/2017 11:18 EDT) C Reactive Protein 7.3 <10.0 mg/L 11/11/2017 14:39 EDT [facility] Blood specimen (specimen) BLOOD SPECIMEN / Unknown 11/11/2017 11:18 EDT 11/11/2017 14:02 EDT Abdoulaye Aduzma CHEMISTRY & BLOOD GA S ORDERABLES Performing Organization Address City/[facility]/ZIP Co de Phone Number [facility] [address] [place] [address] * (ABNORMAL) TSH (11/11/2017 11:18 EDT) TSH 0.38(L) 0.47 - 4.68 uIU/ml 11/11/2017 15:13 [facility] Blood specimen (specimen) BLOOD SPECIMEN / Unknown 11/11/2017 11:18 EDT 11/11/2017 14:02 EDT Abdoulaye Adie CHEMISTRY & BLOOD GA S ORDERABLES Performing Organization Address City/[facility] Co de Phone Number [facility] [address] [place] [address] * COMPREHENSIVE METABOLIC PANEL (CMP) (11/11/2017 11:18 EDT) Pathologist [facility] Potassium 4.7 3.5 - 5.0 mEq/L 11/11/2017 14:37 [facility] Sodium 140 136 - 145 mEq/L 11/11/2017 14:37 [facility] Chloride 105 96 - 110 mEq/L 11/11/2017 14:37 [facility] CO2 23 22 - 32 mEq/L 11/11/2017 14:37 [facility] Total Alkaline Phosphatase 95 38 - 126 U/L 11/11/2017 14:37 [facility] Bilirubin, Total <0.5 <1.4 mg/dl 11/12/19 18 14:37 [facility] AST 18 15 - 46 U/L 11/11/2017 14:37 [facility] ALT 29 <53 U/L 11/11/2017 14:37 [facility] Albumin 4.1 3.4 - 4.9 g/dl 11/11/2017 14:37 [facility] Total Protein 7.1 6.3 - 8.2 g/dl 11/11/2017 14:37 [facility] Creatinine 0.61 0.52 - 1.04 mg/dl 11/11/2017 14:37 [facility] GFR, Calculated 125 >60 ml/min/1.7 3m2 11/11/2017 14:37 [facility] Comment: eGFR calculated using CKD-EPI equation for non Americans. Multiply eGFR by 1.16 for Americans. BUN 13 10 - 26 mg/dl 11/11/2017 14:37 [facility] Calcium 9.9 8.5 - 10.5 mg/dl 11/11/2017 14:37 [facility] Calculated Calcium 9.8 8.5 - 10.5 mg/dl 11/11/2017 14:37 [facility] Glucose, Serum 72 70 - 100 mg/dl 11/11/2017 14:37 [facility] Fasting? Unknown 11/11/2017 14:14 [facility] Blood specimen (specimen) BLOOD SPECIMEN / Unknown 11/11/2017 11:18 EDT 11/11/2017 14:02 EDT Abdoulaye Adie CHEMISTRY & BLOOD GA S ORDERABLES Performing Organization Address City/[facility] Co de Phone Number [facility] [address] [place] [address] * CK (11/11/2017 11:18 EDT) CK 37 30 - 135 U/L 11/11/2017 14:14 EDT [facility] Blood specimen (specimen) BLOOD SPECIMEN / Unknown 11/11/2017 11:18 EDT 11/11/2017 14:02 EDT Abdoulaye Adie CHEMISTRY & BLOOD GA S ORDERABLES Performing Organization Address [facility] Co de Phone Number [facility] [address] [place] [address] * (ABNORMAL) HEMAGRAM AND DIFFERENTIAL (11/11/2017 11:18 EDT) WBC 7.33 4.0 - 12.4 K/cmm 11/11/2017 17:03 [facility] RBC 5.10(H) 3.86 - 5.04 M/cmm 11/11/2017 17:03 [facility] Hemoglobin 12.4 11.6 - 15.2 gm/dl 11/11/2017 17:03 [facility] HCT 37.9 34.9 - 44.4 % 11/11/2017 17:03 [facility] MCV Rev'd by Pathologist 81 - 98 fl 11/11/2017 15:52 [facility] MCH 24.3(L) 26.7 - 33.3 pg 11/11/2017 17:03 [facility] Hypochromia 1+ 11/11/2017 17:03 [facility] MCHC 32.7 32.1 - 35.9 gm/dl 11/11/2017 17:03 [facility] RDW-CV 16.0(H) <14.7 % 11/11/2017 17:03 [facility] RDW-SD 42.6 <50.4 fl 11/11/2017 17:03 [facility] PLT 279 141 - 377 K/critical access hospital 11/11/2017 17:03 [facility] MPV 11.2 9.5 - 12.7 fl 11/11/2017 17:03 [facility] % Neutrophils 54.6 % 11/11/2017 17:03 [facility] % Lymphocytes 35.7 % 11/11/2017 17:03 [facility] % Monocytes 6.4 % 11/11/2017 17:03 [facility] % Eosinophils 1.8 % 11/11/2017 17:03 [facility] % Basophils 0.7 % 11/11/2017 17:03 [facility] % Immature Grans 0.8 % 11/11/2017 17:03 [facility] ABS Neutrophils 4.00 2.20 - 8.85 K/cmm 11/11/2017 17:03 [facility] ABS Lymphs 2.62 1.09 - 3.30 K/cmm 11/11/2017 17:03 EDT [facility] ABS Monocytes 0.47 0.1 - 0.8 K/cmm 11/11/2017 17:03 EDT [facility] ABS Eosinophils 0.13 0.03 - 0.61 K/cmm 11/11/2017 17:03 EDT [facility] ABS Basophils 0.05 0.01 - 0.11 K/cmm 11/11/2017 17:03 EDT [facility] ABS Immature Grans 0.06 0 - 0.06 K/cmm 11/11/2017 17:03 EDT [facility] Type of Diff: Automated 11/11/2017 17:03 [facility] Blood specimen (specimen) BLOOD SPECIMEN / Unknown 11/11/2017 11:18 EDT 11/11/2017 14:02 EDT Abdoulaye Gonzalez PACKAGES & DNA PROBE ORDERABLES Performing Organization Address City/[facility] Co de Phone Number [facility] [address] [place] [address] * LYME AB (11/11/2017 11:18 EDT) Lyme AB Negative 11/12/2017 14:11 EDT [facility] Comment:Reference Range: Neg ative Blood specimen (specimen) BLOOD SPECIMEN / Unknown 11/11/2017 11:18 EDT 11/11/2017 14:02 EDT Abdoulaye Gonzalez IMMUNOLOGY AND SEROL OGY ORDERABLES Performing Organization Address [facility] Co de Phone Number [facility] [address] [place] [address] documented in this encounter Visit Diagnoses Diagnosis Other fatigue Generalized weakness Other malaise and fatigue Pain in both upper extremities Myalgia Mylagia and myositis, unspecified documented in this encounter Care Teams Combination Technician Relationship Specialty Start Date End Date Abdoulaye Gonzalez PCP - General 12/22/15 04/05/18 documented as of this encounter
--- OUTSIDE RECORDS SUMMARY | 2024-04-14 20:37 | XMS_ITS | Encounter Summary ---
Author Organization [facility] Address [address] [place] [address] Care Team Providers Care Heel Slicker Name Role Phone Abdoulaye Gonzalez Primary Care Provider [phone] Encounter Details Date Type Department Care Team (Late st Contact Info) Description 12/22/2017 14:34 EDT - 12/22/2017 23:59 EDT Hospital Encounter [address] [address] Unknown, Provider, Abdoulaye Gonzalez [address] [place] [id number] Discharge Disposition: Auto Discharge Social History Tobacco [...] Diagnosis O90.5 thyroiditis-O90.5[ICD-10-CM] documented in this encounter Medications at Time of Discharge Medication Sig Dispensed Refills Start Date End Date acetaminophen (TYLENOL) 325 mg tablet Take 2 Tabs by mouth every 4 hours as needed for Pain. 08/12/2017 albuterol 90 mcg/actuation inhaler Inhale 1 Puff as directed every 4 hours as needed for Wheezing. 1 Inhaler 11 09/10/2017 FERROUS SULFATE (IRON ORAL) Take by mouth daily. fluticasone (FLOVENT HFA) 110 mcg/actuation inhaler Inhale 1 Puff as directed every 12 hours. Reported on 11/04/2016 1 Inhaler 11 09/10/2017 ibuprofen (MOTRIN) 400 mg tablet Take 1 Tab by mouth every 4 hours as needed for Pain. 08/12/2017 propRANolol (INDERAL) 20 mg tabletIndications:robert tatianna prevention Take 1 Tab by mouth daily. 90 Tab 3 09/10/2017 docusate sodium (COLACE) 100 mg capsule Take 1 Cap by mouth 2 times daily. 60 Cap 2 08/12/2017 02/03/2018 levonorgestrel (KYLEENA) 17.5 mcg/24 hr (5 years) IUD 1 Each by intrauterine route Now. 06/01/2018 VITS62/FA/OM3/DHA/EPA ( GUMMY ORAL) Take by mouth daily. 02/12/2018 sertraline (ZOLOFT) 50 mg tablet Please take 1/2 tab by mouth daily for 1 week and then increase to 1 tab by mouth daily. 90 Tab 1 08/13/2017 02/12/2018 tretinoin (RETIN-A) 0.025 % cream Apply topically to affected area at bedtime. Apply a pea size amount to face once a night for acne. Do not apply immediately after washing, may sting. 45 g 1 10/28/2017 02/12/2018 triamcinolone (KENALOG) 0.1 % ointment Apply topically to affected area 2 times daily. 15 g 1 10/21/2017 02/12/2018 documented as of this encounter Discharge Disposition Disposition Code Departure Means Destination Auto Discharge Home documented in this encounter Plan of Treatment [...] on filedocumented in this encounter Care Teams Heel Slicker Relationship Specialty Start Date End Date Abdoulaye Gonzalez PCP - General 12/22/15 04/05/18 documented as of this encounter
--- OUTSIDE RECORDS SUMMARY | 2024-04-14 20:37 | XMS_ITS | Encounter Summary ---
Author Organization [facility] Address [address] [place] [address] Care Team Providers Care Child Caregiver Name Role Phone MgAbdoulaye gusman Primary Care Provider [phone] Reason for Visit * Reason Comments Follow-up IUD Check Encounter Details Date Type Department Care Team (Late st Contact Info) Description 12/24/2017 10:30 EDT Office Visit [facility] OBGYN Services - [address] [id number] Genia Peters, [employer] [facility] [address] [facility], [address] [place] [address] Need for Tdap vaccination (Primary Dx) Social History Tobacco Use Types [...] Sign Reading Time Taken Comments Blood Pressure 112/70 12/24/2017 1039 EDT Pulse - - Temperature - - [...] as of this encounter Progress Notes * Genia Peters CNM - 12/24/2017 1030 EDT CC: IUD check S: Doing fine with IUD. Has had small amount of spotting - pinkish on panty liner. No pain. still. Being worked up by PCP for thyroiditis - has gained weight, felt really tired and had hair loss. Has had intercourse without problems. Hasn't felt strings. O: Vulva - normal, no lesions Vagina - Saunemin ruggae, no lesions Cervix - Multiparous, strings present, ~1 cm long A: Lyletta IUD in situ P: Follow up in 1 year for annual exam and with PCP for question of thyroid irregularity. documented in this encounter Plan of Treatment Not on file documented as of this encounter Goals Goal Patient Goal Type Associated Problems Recent Progress Patient-Stated? Author Blood Pressure < 130/80 Blood Pressure 118/78(2017 16:01 EDT) No Rina Agosto MD Weight Loss General Yes Rina Agosto MD Note: Goal = 145lbs documented as of this encounter Visit Diagnoses Diagnosis Need for Tdap vaccination- Primary Need for prophylactic vaccination with combined pigwevtlie-cxtbrek-qlmfrnvvf (DTP) vaccine documented in this encounter Care Teams Child Caregiver Relationship Specialty Start Date End Date Abdoulaye Gonzalez PCP - General 12/22/15 04/05/18 documented as of this encounter
--- OUTSIDE RECORDS SUMMARY | 2024-04-14 20:37 | XMS_ITS | Encounter Summary ---
Author Organization [facility] Address [address] [place] [address] Care Team Providers Care Braider Setter Name Role Phone Fiordaliza Hurt MD Primary Care Provider [phone] Reason for Visit * Reason Onset Date Comments Labs Only 10/02/2018 Encounter Details Date Type Department Care Team (Late st Contact Info) Description 10/02/2018 Telephone [facility] Dermatology 3rd Floor [address] [id number] Sujatha Craven MD PhD [address] [facility], [address] [place] [address] Labs Only Social History Tobacco Use Types Packs/Day Years [...] encounter Miscellaneous Notes * Telephone Encounter - Anna Blackmon - 10/02/2018 1451 EST Spoke to the patient, labs will be faxed to [facility]. Lab orders faxed, patient aware. Anna Blackmon 10/02/2018 14:54 * Telephone Encounter - Anna Blackmon - 10/02/2018 0952 EST Left a message for the patient to call back. When the patient calls back please ask what office the lab orders should be faxed to. Anna Blackmon 10/02/2018 9:53 * Telephone Encounter - Anna Blackmon - 10/02/2018 0951 EST ----- Message from Sujatha Craven MD sent at 09/29/2018 15:08 EST ----- Please fax lab order for serum potassium to [facility] documented in this encounter Plan of Treatment Not on file documented as of this encounter Goals Goal Patient Goal Type Associated Problems Recent Progress Patient-Stated? Author Blood Pressure < 130/80 Blood Pressure 118/78(2017 16:01 EDT) No Rina Agosto MD Weight Loss General Yes Rina Agosot MD Note: Goal = 145lbs documented as of this encounter Visit Diagnoses Not on filedocumented in this encounter Care Teams Braider Setter Relationship Specialty Start Date End Date Fiordaliza Hurt MD PCP - General 04/06/18 08/16/19 documented as of this encounter
--- OUTSIDE RECORDS SUMMARY | 2024-04-14 20:37 | XMS_ITS | Encounter Summary ---
Author Organization [facility] Address [address] [place] [address] Care Team Providers Care Director Of Photography Name Role Phone Abdoulaye Gonzalez Primary Care Provider [phone] Reason for Visit * Reason Onset Date Comments Rash 02/03/2018 Encounter Details Date Type Department Care Team (Late st Contact Info) Description 02/03/2018 Telephone [facility] Adult Primary Care - [place] [address] [place] [address] Carmelo Ruelas MD [address] [place] [phone] Rash Social History Tobacco Use Types Packs/Day Years [...] encounter Miscellaneous Notes * Telephone Encounter - Carmelo Ruelas MD - 02/03/2018 0804 EDT order desk caller message last night at 930 pm: Gladys had new onset of non blanchable macules around both dorsal elbows that were not pruritic or painful. In the last 1-2 days she had mild sweats and chills no documented fever. Mild light headedness. Had recent anemia due to menstrual blood loss, Mild headache - no as bad as usual migraine, no light sensitivity, neck was supple (able to bend froward and touch chin to chest without discomfort). Patient has a 6 month old whom she is nursing and a 3 year old child who are not sick. A: Unusual rash (sounds like petechia, or ecchymosis) with low grade fevers (Chills/Sweats). If palpable purpura, the causes vary from HSP purpura to viral exanthem to zoster (though is bilateral), If she felt any sicker --> head to ED that night. Otherwise call for appt in this am to be seen. documented in this encounter Plan of Treatment [...] on filedocumented in this encounter Care Teams Director Of Photography Relationship Specialty Start Date End Date Abdoulaye Gonzalez PCP - General 12/22/15 04/05/18 documented as of this encounter
--- OUTSIDE RECORDS SUMMARY | 2024-04-14 20:37 | XMS_ITS | Encounter Summary ---
Author Organization [facility] Address [address] [place] [address] Care Team Providers Care Open Claims Representative Name Role Phone Abdoulaye Gonzalez Primary Care Provider [phone] Reason for Visit * Reason Onset Date Comments Dizziness 02/03/2018 Encounter Details Date Type Department Care Team (Late st Contact Info) Description 02/03/2018 Telephone [facility] Adult Primary Care - [address] [id number] Abdoulaye Gonzalez [address] [place] [phone] Dizziness Social History Tobacco Use Types Packs/Day [...] Dispensed Refills Start Date End Da te meclizine (ANTIVERT) 25 mg tablet Take 1 Tab by mouth 4 times daily as needed for Dizziness or Nausea. 20 Tab 1 02/03/2018 documented in this encounter Miscellaneous Notes * Telephone Encounter - Svetlana Mccollum RN - 02/03/2018 1606 EDT Pt given message as below, verbalizes understanding. She will see how things go this evening and tonight and come in to see Frantz for possible toradol injection tomorrow if not better. If she feelsbetter when she wakes up she will cancel. * Telephone Encounter - Abdoulaye Gonzalez - 02/03/2018 1544 EDT Would recommend that she try taking meclizine for the vertigo and nausea. Rx sent to pharmacy. There is a warning with this, so she may want to avoid if possible while taking. If she hasn't already been taking tylenol and/or NSAIDs, I'd recommend that she take 1000 mg Tylenol [id number]. If this doesn't help, she can add 800 mg ibuprofen O5ooogl or 2 tabs of Aleve Q12 hours. No shot is available for vertigo that I know of, but if she wants to try to schedule an [employer] WORK[employer] visit before 4:45 today, we could give her IM Toradol for the headache. * Telephone Encounter - Svetlana Mccollum RN - 02/03/2018 1528 EDT Pt was seen today by Deborah (who has gone for the day). Please see ov note in prism. Pt states she is worse since going home. The dizziness is worsening and she is now nauseated which she wasn't before. States her headache she had is turning into a migraine. States she is on prophylactic inderal for this. Asked if she took anything if she got a migraine while on this medication and she started she has imitrex ordered but she does not want to take it as she doesn't like the way it makes her feel. States she is supposed to work this evening/tonight. Advised she will not be able to do this, there is nothing that you can prescribe that will make her feel better in time to work. She will need a note. She is wondering what she should do. She is very concerned as her will not be around tomorrow and she will have to care for baby herself and right now she is so dizzy and nauseated and her head is aching so bad she can barely function to get around herself. Her friend told her there might be a shot she can get for the vertigo. Advised I have not heard of this but I will let you know. States you gave her an injection for her migraine once. Advised you were in with patients until 5but I would leave a message on your computer about this. Pt is asking if you can call her afterwards, she is looking for any kind of direction to help her. * Telephone Encounter - Apurva Serna - 02/03/2018 1415 EDT Reason for Call: Dizziness Summary/Symptoms: Pt was seen today for vertigo symptoms - she reports that her symptoms are worsening. Reporting nausea and worsening dizziness. Would liek a nurse to call her. Onset and Duration? Appointment Offered? No Apurva Serna 02/03/2018 14:16 documented in this encounter Plan of Treatment [...] on filedocumented in this encounter Care Teams Open Claims Representative Relationship Specialty Start Date End Date MgAbdoulaye gusman PCP - General 12/22/15 04/05/18 documented as of this encounter
--- OUTSIDE RECORDS SUMMARY | 2024-04-14 20:37 | XMS_ITS | Encounter Summary ---
Author Organization [facility] Address [address] [place] [address] Care Team Providers Care Emergency Room Rn Name Role Phone Fiordaliza Hurt MD Primary Care Provider [phone] Reason for Visit * Reason Comments Follow-up Acne- currently taki ng spironolactone Encounter Details Date Type Department Care Team (Late st Contact Info) Description 09/29/2018 10:15 EST Office Visit [facility] Dermatology 5th Floor [address] [address] Sujatha Craven MD PhD [address] [facility], [address] [place] [address] Encounter for medication monitoring (Primary Dx); History of nephrolithiasis Social History Tobacco Use Types Packs/Day Years [...] No 10/15/2017 documented as of this encounter Patient Instructions * Patient Instructions* Sujatha Craven MD - 09/29/2018 10:15 EST Images from the original note were not included. -Advised patient to discuss starting oral contraceptive pill with their HANGAR ATTENDANT for the treatment oftheir acne -Options include: Your control pill is good for acne, but there are alternatives that do a better job. documented in this encounter Progress Notes * Blossom Granado MD - 09/29/2018 1015 EST Dermatology Outpatient Visit Note Chief Complaint Patient presents with ??? Follow-up Acne- currently taking spironolactone Dermatologic History: Inflammatory Acne Last Dermatology office visit: 04/29/2017 SUBJECTIVE Ms. Lopez is a 28 y.o. female who presents for follow up for acne that is currently improved since she started spironolactone. She is no longer or with no plans for additional children as she has two and is currently going through a divorce. She had an IUD previously and is now on an OCP. She uses tretinoin PRN. She denies any side effects from the spironolactone but is wondering if the cysts she is developing more frequently on the body could be related. No postural hypotension. No known potassium or cardiac problems. For full Medical, Surgical, Family, and Social histories, please see the History section of this encounter in the electronic chart which I have personally reviewed. For Review of Systems, Medications and Allergies, please see those sections of this encounter in the electronic chart which I have also reviewed. She has a current medication list which includes the following prescription(s): acetaminophen, albuterol, aspirin, aspirin/acetaminophen/caffeine, ferrous sulfate, fluticasone, hydroxyzine, ibuprofen, meclizine, montelukast, norethindrone-ethinyl estradiol, propranolol, and spironolactone. She is allergic to adhesive; latex, natural rubber; morphine; nickel; and tramadol. OBJECTIVE VS: There were no vitals taken for this visit. Ms. Lopez is healthy, well developed, well-nourished and in no acute distress female sitting on the examination table with a normal affect. She is alert and oriented to person, place and time. Shehas Keane type II skin. Cutaneous focused exam of the head was performed.The examination was normal with the addition of the following comments: There were no lesions suspicious for malignancy. -Patient in full makeup. Cheeks, nose, chin, forehead with multiple scattered pitted ~3-4mm boxcar scarring. Multiple closed comedones ASSESSMENT/PLAN Acne vulgaris -Mild comedonal with history of severe cystic and scarring acne -Improved on spironolactone. Discussed side effects including hypotension, hyperkalemia and teratogenicity. -Cont Spironolactone for acne. Pending clearance from the patient's Urologist, Porfirio Vee MD, plan to increase to 100mg AM, 50mg PM. Will CC him on this note for his input. Patient has a history ofrecurrent nephrolithiasis and though I suspect spironolactone may help, I would like to make sure her urologist does not have any concerns prior to increasing the dose. -Continue OCPs. Patient is on norethindrone/EE, which tends to improve acne but Drosperinone/EE (JENNA, Ghislaine, etc) is more effective for this purpose. Discussed that IUDs tend to worsen acne in case this alters her decision. Provided literature regarding control options and their effects on acne control. -Will check serum potassium even though it is not usually indicated for young, otherwise healthy women but her last potassium was on the high end. Faxed lab order to [facility]. Will plan to recheck K if spironolactone dose increased. She will f/u as planned or in the interim should problems arise. Return in about 6 months (around 03/29/2019) for Acne as pt is changing her control. Blossom Granado MD 09/29/2018 12:38 Attestation Statement: I saw and examined the patient with the resident/fellow. I agree with the findings and plan of care documented in the resident's/fellow's note. Sujatha Craven MD Dermatology [facility] * Vandana Rea - 09/29/2018 1015 EST Review of Systems Constitutional: Negative for fatigue, fever and unexpected weight change. HENT: Negative for mouth sores. Eyes: Negative for pain. Respiratory: Negative for cough and shortness of breath. Cardiovascular: Negative for chest pain and palpitations. Gastrointestinal: Negative for abdominal pain, blood in stool, constipation, diarrhea, nausea and vomiting. Genitourinary: Negative for dysuria, frequency and hematuria. Musculoskeletal: Negative for myalgias, joint swelling, arthralgias and muscle stiffness in the morning. Skin: Negative for rash. Neurological: Negative for numbness and headaches. Endo/Heme/Allergies: Does not bruise/bleed easily. Psychiatric/Behavioral: Negative for sleep disturbance. The patient is not nervous/anxious. Vandana Rea 09/29/2018 10:16 documented in this encounter Plan of Treatment Not on file documented as of this encounter Goals Goal Patient Goal Type Associated Problems Recent Progress Patient-Stated? Author Blood Pressure < 130/80 Blood Pressure 118/78(2017 16:01 EDT) No Rina Agosto MD Weight Loss General Yes Rina Agosto MD Note: Goal = 145lbs documented as of this encounter Visit Diagnoses Diagnosis Encounter for medication monitoring- Primary Encounter for therapeutic drug monitoring History of nephrolithiasis Personal history of urinary calculi documented in this encounter Care Teams Emergency Room Rn Relationship Specialty Start Date End Date Fiordaliza Hurt MD PCP - General 04/06/18 08/16/19 documented as of this encounter
--- OUTSIDE RECORDS SUMMARY | 2024-04-14 20:37 | XMS_ITS | Encounter Summary ---
Author Organization [facility] Address [address] [place] [address] Care Team Providers Care Material Inspector Name Role Phone Abdoulaye Gonzalez Primary Care Provider [phone] Reason for Visit * Reason Onset Date Comments Results 11/15/2017 Labs Encounter Details Date Type Department Care Team (Late st Contact Info) Description 11/15/2017 Telephone [facility] [address] [phone] Abdoulaye Gonzalez [address] [place] [phone] Results (Labs) Social History Tobacco Use Types Packs/Day Years [...] encounter Miscellaneous Notes * Telephone Encounter - Mabel Eastman, SEWING DEMONSTRATOR - 11/15/2017 1335 EDT Discussed lab results with gladys. She should continue taking iron and will repeat hemagram/ferritin with her PCP as directed. She verbalized understanding. * Telephone Encounter - Tricia Whitney - 11/15/2017 1219 EDT Reason for Call: Results (Labs) Summary/Symptoms: Patient would like to speak to someone regarding her lab results. Onset and Duration? Patient had labs drawn on November 11 Appointment Offered? No Tricia Whitney 11/15/2017 12:19 documented in this encounter Plan of Treatment [...] on filedocumented in this encounter Care Teams Material Inspector Relationship Specialty Start Date End Date Carlos Abdoulaye PCP - General 12/22/15 04/05/18 documented as of this encounter
--- OUTSIDE RECORDS SUMMARY | 2024-04-14 20:37 | XMS_ITS | Encounter Summary ---
Author Organization [facility] Address [address] [place] [address] Care Team Providers Care Offset Pressman Name Role Phone Abdoulaye Gonzalez Primary Care Provider [phone] Encounter Details Date Type Department Care Team (Late st Contact Info) Description 11/20/2017 10:11 EDT - 11/20/2017 23:59 EDT Hospital Encounter [address] [address] Unknown, Provider, Abdoulaye Gonzalez [address] [place] [phone] Discharge Disposition: Auto Discharge Social History Tobacco [...] as of this encounter Discharge Diagnoses Diagnosis R53.83 Other fatigue-R53.83[ICD-10-CM] M79.1 Myalgia-M79.1[ICD-10-CM] R53.1 Weakness-R53.1[ICD-10-CM] documented in this encounter Medications at Time [...] on filedocumented in this encounter Care Teams Offset Pressman Relationship Specialty Start Date End Date Abdoulaye Gonzalez PCP - General 12/22/15 04/05/18 documented as of this encounter
--- OUTSIDE RECORDS SUMMARY | 2024-04-14 20:37 | XMS_ITS | Encounter Summary ---
Author Organization [facility] Address [address] [place] [address] Care Team Providers Care Indigo Mixer Name Role Phone Fiordaliza Hurt MD Primary Care Provider [phone] Reason for Visit * Reason Onset Date Comments Results 10/16/2018 Encounter Details Date Type Department Care Team (Late st Contact Info) Description 10/16/2018 Telephone [facility] Dermatology 5th Floor [address] [phone] Sujatha Craven MD PhD [address] [facility], [address] [place] [address] Results Social History Tobacco Use Types Packs/Day [...] * Telephone Encounter - Anna Blackmon - 10/22/2018 1424 EDT Left a message for the patient stating: Per Dr. Craven: Labs normal. (Potassium level) Please notify patient. No changes to therapy required. Sujatha Craven MD 10/16/2018 14:22 Anna Blackmon 10/22/2018 14:25 * Telephone Encounter - Fabio Thompson - 10/16/2018 1049 EST Results received and scanned into [employer]. documented in this encounter Plan of Treatment [...] on filedocumented in this encounter Care Teams Indigo Mixer Relationship Specialty Start Date End Date Fiordaliza Hurt MD PCP - General 04/06/18 08/16/19 documented as of this encounter
--- OUTSIDE RECORDS SUMMARY | 2024-04-14 20:37 | XMS_ITS | Encounter Summary ---
Author Organization [facility] Address [address] [place] [address] Care Team Providers Care Aeronautics Commission Director Name Role Phone Abdoulaye Gonzalez Primary Care Provider [phone] Reason for Visit * Reason Onset Date Comments Abscess 12/23/2017 on tonsil Encounter Details Date Type Department Care Team (Late st Contact Info) Description 12/23/2017 Telephone [facility] Adult Primary Care - [address] [address] Gris Smyth MD [address] [place] [phone] Abscess (on tonsil) Social History Tobacco Use Types Packs/Day Years [...] Dispensed Refills Start Date End Da te amoxicillin (AMOXIL) 875 mg tablet Take 1 Tab by mouth 2 times daily. 14 Tab 12/23/2017 02/03/2018 documented in this encounter Miscellaneous Notes * Telephone Encounter - Gris Smyth MD - 12/23/2017 6008 EDT Right tonsil has swelling and she's concerned about an abscess. She's had one before and needed antibiotics. Has no fever and no difficulty breathing or swallowing but she's concerned these symptoms will develop. It's hard for her to get in the office because she has two young children. Plan: 1. One week of amoxicillin 2. Instructed to call the office if symptoms don't improve over the next 48 hours or if she gets worse. documented in this encounter Plan of Treatment [...] on filedocumented in this encounter Care Teams Aeronautics Commission Director Relationship Specialty Start Date End Date Abdoulaye Gonzalez PCP - General 12/22/15 04/05/18 documented as of this encounter
--- OUTSIDE RECORDS SUMMARY | 2024-04-14 20:37 | XMS_ITS | Encounter Summary ---
Author Organization [facility] Address [address] [place] [address] Care Team Providers Care Cook Chief Name Role Phone Abdoulaye Gonzalez Primary Care Provider [phone] Fiordaliza Hurt MD Primary Care Provider [phone] Reason for Visit * Reason Onset Date Comments Medication Management 03/03/2018 Encounter Details Date Type Department Care Team (Late st Contact Info) Description 03/03/2018 Telephone [facility] Adult Primary Care - [address] [phone] Abdoulaye Gonzalez [address] [place] [phone] Medication Management Social History Tobacco Use Types [...] encounter Miscellaneous Notes * Telephone Encounter - Kaur Bridges - 03/04/2018 0822 EDT Please call pt, anxious about getting medication. * Telephone Encounter - Saad Albrecht RN - 03/03/2018 1013 EDT See [facility] note. This is regarding prescribing spironolactone and Singulair * Telephone Encounter - Kaur Bridges - 03/03/2018 0826 EDT Reason for Call: Medication Management Summary/Symptoms: Pt calling to follow up on the Location Labs online message dated 02.25.18. Please call Onset and Duration? Appointment Offered? Kaur Bridges 03/03/2018 8:27 documented in this encounter Plan of Treatment [...] on filedocumented in this encounter Care Teams Cook Chief Relationship Specialty Start Date End Date CarlosAlvertoAbdoulaye PCP - General 12/22/15 04/05/18 Fiordaliza Hurt MD PCP - General 04/06/18 08/16/19 documented as of this encounter
--- OUTSIDE RECORDS SUMMARY | 2024-04-14 20:37 | XMS_ITS | Encounter Summary ---
Author Organization [facility] Address [address] [place] [address] Care Team Providers Care Radiology Specialist Name Role Phone Fiordaliza Hurt MD Primary Care Provider [phone] Reason for Visit * Reason Onset Date Comments Urinary Frequency 06/19/2018 Encounter Details Date Type Department Care Team (Late st Contact Info) Description 06/19/2018 Telephone [facility] Adult Primary Care - [place] [address] [place] [address] Fiordaliza Hurt MD [address] [place] [address] Urinary Frequency Social History Tobacco Use Types Packs/Day Years [...] Dispensed Refills Start Date End Da te nitrofurantoin, macrocrystal-monohydrate, (MACROBID) 100 mg capsule Take 1 Cap by mouth 2 times daily for 5 days. 10 Cap 06/19/2018 06/24/2018 documented in this encounter Miscellaneous Notes * Telephone Encounter - Fiordaliza Hurt MD - 06/19/2018 1649 EST SOunds like a UTI to me. Okay to treat presumtively with macrobid 100 bid x 5 days. If increased nausea vomiting, fever, or flank pain develop, she should be evaluated. * Telephone Encounter - Alyce Tyler RN - 06/19/2018 1630 EST TRIAGE CALL Subjective: UTI Allergies Allergen Reactions ??? Adhesive Rash ??? Latex, Natural Rubber Rash ??? Morphine Nausea And Vomiting Morphine caused patient to feel very aggressive ??? Nickel Swelling ??? Tramadol Nausea Only Dizziness Lindsey Questions/Assessment: Symptoms: urgency, nausea, incomplete bladder emptying and incontinence Duration: 2-7 days Past UTI hx: History of or Recent UTI: Yes, History of Pyelonephritis: Yes and Previous antibiotic treatment for UTI: Yes Past pertinent medical history: previous urinary tract surgery, kidney stones and past UTI pertinent medical hx negative Risk: Not Plan: The patient was informed to go to the [facility]. The patient was also advised to call back if condition worsens or has further concerns or questions. Name of Guideline/Protocol Used: UTI Home Care/Patient Education per Protocol/Guideline: Yes: Patient Education Topic: UTI Method: Verbal Taught to: Patient Barriers: None Outcomes: independent Signature: Patient/Responsible constitution party intends to comply with action/disposition: yes Reference Used: Telephone Triage Protocols for Nurses, 4th Edition, Jalyn Aleman, 2012 Patient does have new sexual partner within last 3 months, no known STD. She is in [place], [place] and cannot drive to [place]. Advised to go to ER or walk-in if she is concerned that she is passing astone, she is very worried. She says that at the end of her urine stream there is a feeling of blockage, as if something is trying to make its way out. ALYCE TYLER RN 06/19/2018 16:30 * Telephone Encounter - Lisa Cameron - 06/19/2018 1622 EST Reason for Call: Kidney stone vs UTI Summary/Symptoms: Urgency with burning Onset and Duration? Last night Appointment Offered? PT declined appt for weekend clinic. Phone triage tonight . Lisa Cameron 06/19/2018 16:22 documented in this encounter Plan of Treatment [...] on filedocumented in this encounter Care Teams Radiology Specialist Relationship Specialty Start Date End Date Fiordaliza Hurt MD PCP - General 04/06/18 08/16/19 documented as of this encounter
--- OUTSIDE RECORDS SUMMARY | 2024-04-14 20:37 | XMS_ITS | Encounter Summary ---
Author Organization [facility] Address [address] [place] [address] Care Team Providers Care Vinyl Cutter Name Role Phone Abdoulaye Gonzalez Primary Care Provider [phone] Reason for Visit * Reason Onset Date Comments Other 11/17/2017 Encounter Details Date Type Department Care Team (Late st Contact Info) Description 11/17/2017 Telephone [facility] Adult Primary Care - [address] [phone] Abdoulaye Gonzalez [address] [place] [id number] Other Social History Tobacco Use Types Packs/Day [...] * Telephone Encounter - Abdoulaye Gonzalez - 11/19/2017 1433 EDT Spoke with Gladys. Continues to feel fatigued, and achiness is now generalized to whole body. Feels weak. Will check labs to r/o SLE and Vit D def. Advised to continue daily iron. * Telephone Encounter - Diana Hawkins RN - 11/18/2017 0845 EDT Gladys is not happy with the information given to her via TSH She is also upset that she got a e mail from thr pathologist told her she may need to have iron defanemia She was very upset that she is having so much issue with being tired She kept stating something is very wrong with me and I am not feeling well I am unable to get out of bed to do anything. This is three months later so I do not believe this is due to anemia. Why won't T. Adiecall me herself I feel I need to discuss all of this with her no offense but she is The one who should be telling me this. Gently told her that this is what the RN's do and I do feel I will send this to her directly to review and advise, Gladys wants someone to say what the reason for how tired she is not that she is . * Telephone Encounter - Abdoulaye Gonzalez - 11/17/2017 1632 EDT I had spoken with her last week to let her know that her TSH was low. This is why she's fatigued and losing hair. Her T3 and T4 were normal, though, so her elevated TSH is very likely due to hyperthyroidism. This typically corrects itself within a month, so she should start to feel better within the coming weeks. Unfortunately, there's not much that can be done about her symptoms otherthan resting and hanging in there. I'd like her to repeat a thyroid cascade in 1 month. * Telephone Encounter - Svetlana Mccollum, RN - 11/17/2017 1532 EDT As below, pt wondering if you've had a chance to review her labs and come up with plan. Still feelsthe same as when she saw you, but the past few days a new sx has developed. She is losing tons andtons of hair. It is coming out in handfulls so much so that it is clogging the drain to her tub. * Telephone Encounter - Libia Locke - 11/17/2017 1303 EDT Reason for Call: Other Summary/Symptoms: Patient calling, very tired, would like to speak with a nurse Onset and Duration? Appointment Offered? Libia Locke 11/17/2017 13:03 documented in this encounter Plan of Treatment Not on file documented as of this encounter Goals Goal Patient Goal Type Associated Problems Recent Progress Patient-Stated? Author Blood Pressure < 130/80 Blood Pressure 118/78(2017 16:01 EDT) No Rina Agosto MD Weight Loss General Yes Rina Agosto MD Note: Goal = 145lbs documented as of this encounter Results * (ABNORMAL) HEMAGRAM AND DIFFERENTIAL (11/20/2017 10:20 EDT) WBC 6.80 4.0 - 12.4 K/cmm 11/20/2017 11:56 EDT [facility] RBC 5.17(H) 3.86 - 5.04 M/cmm 11/20/2017 11:56 [facility] Hemoglobin 12.9 11.6 - 15.2 gm/dl 11/20/2017 11:56 [facility] HCT 39.1 34.9 - 44.4 % 11/20/2017 11:56 [facility] MCV 76(L) 81 - 98 fl 11/20/2017 11:56 [facility] MCH 25.0(L) 26.7 - 33.3 pg 11/20/2017 11:56 [facility] Hypochromia 1+ 11/20/2017 11:56 [facility] MCHC 33.0 32.1 - 35.9 gm/dl 11/20/2017 11:56 [facility] RDW-CV 16.0(H) <14.7 % 11/20/2017 11:56 [facility] RDW-SD 43.5 <50.4 fl 11/20/2017 11:56 [facility] PLT 277 141 - 377 K/cmm 11/20/2017 11:56 [facility] MPV 11.2 9.5 - 12.7 fl 11/20/2017 11:56 [facility] % Neutrophils 51.0 % 11/20/2017 11:56 [facility] % Lymphocytes 38.8 % 11/20/2017 11:56 [facility] % Monocytes 6.8 % 11/20/2017 11:56 [facility] % Eosinophils 1.9 % 11/20/2017 11:56 [facility] % Basophils 0.9 % 11/20/2017 11:56 [facility] % Immature Grans 0.6 % 11/20/2017 11:56 [facility] ABS Neutrophils 3.47 2.20 - 8.85 K/cmm 11/20/2017 11:56 [facility] ABS Lymphs 2.64 1.09 - 3.30 K/cmm 11/20/2017 11:56 [facility] ABS Monocytes 0.46 0.1 - 0.8 K/cmm 11/20/2017 11:56 EDT [facility] ABS Eosinophils 0.13 0.03 - 0.61 /[facility] 11/20/2017 11:56 EDT [facility] ABS Basophils 0.06 0.01 - 0.11 [facility] 11/20/2017 11:56 EDT [facility] ABS Immature Grans 0.04 0 - 0.06 [facility] 11/20/2017 11:56 EDT [facility] Type of Diff: Automated 11/20/2017 11:56 EDT [facility] Blood specimen (specimen) BLOOD SPECIMEN / Unknown 11/20/2017 10:20 EDT 11/20/2017 11:46 EDT Abdoulaye Adie PACKAGES & DNA PROBE ORDERABLES Performing Organization Address [facility] de Phone Number [facility] [address] [place] [address] * VITAMIN D (25,OH) (11/20/2017 10:20 EDT) Pathologist [facility] 25OH Vitamin D Tot 35.5 30 - 100 ng/ml 11/20/2017 13:24 EDT [facility] Comment: Reference Range: Deficient = <10 ng/ml Insufficient = 10-30 ng/ml Sufficient = 30-100 ng/ml Toxic = >100 ng/ml Blood specimen (specimen) BLOOD SPECIMEN / Unknown 11/20/2017 10:20 EDT 11/20/2017 11:46 EDT Abdoulaye Adie CHEMISTRY & BLOOD GA S ORDERABLES Performing Organization Address [facility] Co de Phone Number [facility] [address] [place] [address] * MANAGER DOCUMENT ANTIBODIES BY SHEREEN (11/20/2017 10:20 EDT) Pathologist [facility] MANAGER DOCUMENT Antibody 3.8 <20 Units 11/25/2017 15:27 EDT [facility] Comment: Negative: <20 Units Weak Positive: 20 - 39 Units Moderate Positive: 40 - 80 Units Strong Positive: >80 Units Results were obtained with the [employer] QUANTA Lite MANAGER DOCUMENT SHEREEN. MANAGER DOCUMENT Values obtained with different manufacturers' assay methods may not be used interchangeably. The magnitude of the reported IgG levels cannot be correlated to an endpoint titer. A positive result in the QUANTA Lite MANAGER DOCUMENT SHEREEN indicates the presence of antibodies reactive with the MANAGER DOCUMENT/Sm complex but cannot distinguish between anti-Sm and anti-MANAGER DOCUMENT activity. Blood specimen (specimen) BLOOD SPECIMEN / Unknown 11/20/2017 10:20 EDT 11/20/2017 11:46 EDT Abdoulaye Adie IMMUNOLOGY AND SEROL OGY ORDERABLES Performing Organization Address [facility] Co de Phone Number [facility] [address] [place] [address] * SSA/SSB PANEL (11/20/2017 10:20 EDT) SSA Antibody 2.4 <20 Units 11/25/2017 15:27 EDT [facility] Comment: Negative: <20 Units [...] Antibody 1.7 <20 Units 11/25/2017 15:27 EDT [facility] Comment: Negative: <20 Units [...] AND SEROL OGY ORDERABLES Performing Organization Address [facility]/ZIP Co de Phone Number [facility] [address] [place] [address] * ANTI DNA (DOUBLE STRAND) (11/20/2017 10:20 EDT) Pathologist [facility] Anti DNA (DS) <12.3 <30 IU/mL 11/25/2017 15:51 EDT [facility] Comment:Results were obtaine d with the [employer] QUANTA Lite dsDNA SC SHEREEN assay. Blood specimen (specimen) BLOOD SPECIMEN / Unknown 11/20/2017 10:20 EDT 11/20/2017 11:46 EDT Abdoulaye Adie IMMUNOLOGY AND SEROL OGY ORDERABLES Performing Organization Address [facility] de Phone Number [facility] [address] [place] [address] * SM (BORRERO) ANTIBODY (11/20/2017 10:20 EDT) [facility] Sm (Borrero) Antibody 5.4 <20 Units 11/25/2017 15:27 EDT [facility] Comment: Negative: <20 Units [...] AND SEROL OGY ORDERABLES Performing Organization Address [facility] de Phone Number [facility] [address] [place] [address] * ANCA, IFA (11/20/2017 10:20 EDT) [facility] ANCA Interpretation Negative Negative 11/21/2017 11:39 EDT [facility] Comment: No titer performed, ANCA screen is negative. Results were obtained with the [employer] NOVA Lite ANCA kit by indirect immunofluorescence. Blood specimen (specimen) BLOOD SPECIMEN / Unknown 11/20/2017 10:20 EDT 11/20/2017 11:46 EDT Abdoulaye Adie IMMUNOLOGY AND SEROL OGY ORDERABLES Performing Organization Address [facility] Co de Phone Number [facility] [address] [place] [address] * ANTI NUCLEAR AB (REILLY), IFA (11/20/2017 10:20 EDT) REILLY Interpretation Negative Negative 2017 11:39 EDT [facility] Comment: No titer performed, REILLY screen is negative. Results were obtained with the [employer] NOVA Lite HEp-2 REILLY kit by indirect immunofluorescence. Blood specimen (specimen) BLOOD SPECIMEN / Unknown 11/20/2017 10:20 EDT 11/20/2017 11:46 EDT Abdoulaye Gonzalez IMMUNOLOGY AND SEROL OGY ORDERABLES Performing Organization Address [facility] Co de Phone Number [facility] [address] [place] [address] documented in this encounter Visit Diagnoses Diagnosis Fatigue, unspecified type- Primary Generalized muscle ache Mylagia and myositis, unspecified Weakness Other malaise and fatigue documented in this encounter Care Teams Vinyl Cutter Relationship Specialty Start Date End Date Abdoulaye Gonzalez PCP - General 12/22/15 04/05/18 documented as of this encounter
--- OUTSIDE RECORDS SUMMARY | 2024-04-14 20:37 | XMS_ITS | Encounter Summary ---
Author Organization [facility] Address [address] [place] [address] Care Team Providers Care Block Splitter Operator Name Role Phone Abdoulaye Gonzalez Primary Care Provider [phone] Reason for Visit * Reason Comments Generalized Body Aches states has been h aving really bad muscle pains all over body; eden horses in arms; headaches; lightheadedness/dizziness Encounter Details Date Type Department Care Team (Late st Contact Info) Description 11/11/2017 10:30 EDT Office Visit [facility] - [address] [address] Abdoulaye Gonzalez [address] [place] [address] [id number] Other fatigue (Primary Dx); Generalized weakness; Pain in both upper extremities; Myalgia Discharge Disposition: Auto Discharge Social History Tobacco [...] Sign Reading Time Taken Comments Blood Pressure 116/80 11/11/2017 1030 EDT Pulse 72 11/11/2017 1030 EDT Temperature 35.5 ??C (95.9 ??F) 11/11/2017 1030 EDT Respiratory Rate 16 11/11/2017 1030 EDT Oxygen Saturation - - Inhaled Oxygen Concentration - - Weight 89.8 kg (198 lb) 11/11/2017 1030 EDT Height - - Body Mass Index [...] as of this encounter Discharge Diagnoses Diagnosis E05.90 Thyrotoxicosis, unspecified without thyrotoxic crisis or storm-E05.90[ICD-10-CM] documented in this encounter Discharge Disposition Disposition Code Departure Means Destination Auto Discharge documented in this encounter Progress Notes * MguzmaAbdoulaye - 11/11/2017 1030 EDT SUBJECTIVE: Chief Complaint Patient presents with ??? Generalized Body Aches states has been having really bad muscle pains all over body; eden horses in arms; headaches; lightheadedness/dizziness HPI: Gladys has had acute, cramping and spasm like pain in her upper arms on and off for the pastweek, as well as significantly increased fatigue. Describes feeling like she gets charley horses in her arms, just proximal to her elbows, which lasts about a minute, then fades into generalized achiness of both arms as well as weakness. Hands feel weak as well. Legs feel somewhat weak and achy, but she has had no acute pain as she has in her arms. She had been exercising regularly in recent weeks, but stopped when she began to feel very dizzy and lightheaded a week ago. She's had no fever, chills, nausea, rashes. Headaches have been more frequent for at least the last 2 weeks. Describes having had a brief episode of crampy, sharp pain in her right upper abdomen 2 weeks ago, but no recurrence since. Has started no new medicines or supplements. Did start 20 mg propranolol as the first step for migraine prophylaxis in August, but she had no symptoms after starting it. No sick contacts. Patient Active Problem List Diagnosis ??? Endometriosis [...] needed for Wheezing. 1 Inhaler 11 ??? docusate sodium (COLACE) 100 mg capsule Take 1 Cap by mouth 2 times daily. 60 Cap 2 ??? FERROUS SULFATE (IRON ORAL) Take by [...] on file prior to visit. OBJECTIVE: BP 116/80 Pulse 72 Temp (!) 35.5 ??C (95.9 ??F) (Tympanic) Resp 16 Wt 89.8 kg (198 lb) BMI 35.07 kg/m2 General: Appears much more fatigued than her usual MSK: Mild tenderness with palpation of the extensor tendons near the lateral epicondyles on each elbow. Pain elicited with wrist flexion bilaterally. Neuro: Brachial radialis, biceps, triceps, patellar, Achilles DTRs 3+, symmetric. Mildly diminished grasp strength in hands. Mildly diminished strength in arms. Neck: No lymphadenopathy Skin: No rashes ASSESSMENT and PLAN: Encounter Diagnoses Name Primary? Other fatigue Yes ??? Generalized weakness ??? Pain in both upper extremities ??? Myalgia ? Viral illness versus rheumatoid arthritis versus Lyme versus hypothyroidism.Gladys was seen today for generalized body aches. - Lyme Antibody; Future - Hemagram & Differential; Future - CK; Future - Comprehensive Metabolic Panel (CMP); Future - TSH; Future - C Reactive Protein: use to detect acute inflammation; Future - Sed. Rate: Do not order when looking for inflammation in patients with undiagnosed conditions. May be indicated when monitoring specific chronic conditions.; Future - Rheumatoid Factor; Future - CCP Antibodies; Future Will call to discuss next steps when labs completed. documented in this encounter Plan of Treatment Not on file documented as of this encounter Goals Goal Patient Goal Type Associated Problems Recent Progress Patient-Stated? Author Blood Pressure < 130/80 Blood Pressure 118/78(2017 16:01 EDT) No Rina Agosto MD Weight Loss General Yes Rina Agosto MD Note: Goal = 145lbs documented as of this encounter Results * CCP ANTIBODIES (11/11/2017 11:18 EDT) CCP Antibodies <2.5 <5.0 U/mL 11/12/2017 11:44 EDT [facility] BLOOD SPECIMEN / Unknown 11/11/2017 11:18 EDT 11/11/2017 14:02 EDT Abdoulaye Adie IMMUNOLOGY AND SEROL OGY ORDERABLES Performing Organization Address [facility] Co de Phone Number [facility] [address] [place] [address] * RHEUMATOID FACTOR (11/11/2017 11:18 EDT) Rheumatoid Factor <20 <20 IU/ml 11/12/2017 11:32 EDT [facility] Blood specimen (specimen) BLOOD SPECIMEN / Unknown 11/11/2017 11:18 EDT 11/11/2017 14:02 EDT Abdoulaye Adie CHEMISTRY & BLOOD GA S ORDERABLES Performing Organization Address [facility] Co de Phone Number [facility] [address] [place] [address] * SED. RATE:WESTERGREN (11/11/2017 11:18 EDT) Sed. Rate Westergren 11 0 - 20 mm/hr 11/11/2017 14:15 EDT [facility] Blood specimen (specimen) BLOOD SPECIMEN / Unknown 11/11/2017 11:18 EDT 11/11/2017 14:02 EDT Abdoulaye Adie HEMATOLOGY & PF4 ORD ERABLES Performing Organization Address City/[facility] Co de Phone Number [facility] [address] [place] [address] * C REACTIVE PROTEIN (11/11/2017 11:18 EDT) C Reactive Protein 7.3 <10.0 mg/L 11/11/2017 14:39 EDT [facility] Blood specimen (specimen) BLOOD SPECIMEN / Unknown 11/11/2017 11:18 EDT 11/11/2017 14:02 EDT Abdoulaye Adie CHEMISTRY & BLOOD GA S ORDERABLES Performing Organization Address City/[facility]/ZIP Co de Phone Number [facility] [address] [place] [address] * (ABNORMAL) TSH (11/11/2017 11:18 EDT) TSH 0.38(L) 0.47 - 4.68 uIU/ml 11/11/2017 15:13 [facility] Blood specimen (specimen) BLOOD SPECIMEN / Unknown 11/11/2017 11:18 EDT 11/11/2017 14:02 EDT Abdoulaye Modafirma CHEMISTRY & BLOOD GA S ORDERABLES Performing Organization Address [facility] Co de Phone Number [facility] [address] [place] [address] * COMPREHENSIVE METABOLIC PANEL (CMP) (11/11/2017 11:18 EDT) Pathologist [facility] Potassium 4.7 3.5 - 5.0 mEq/L 11/11/2017 14:37 [facility] Sodium 140 136 - 145 mEq/L 11/11/2017 14:37 [facility] Chloride 105 96 - 110 mEq/L 11/11/2017 14:37 [facility] CO2 23 22 - 32 mEq/L 11/11/2017 14:37 [facility] Total Alkaline Phosphatase 95 38 - 126 U/L 11/11/2017 14:37 [facility] Bilirubin, Total <0.5 <1.4 mg/dl 11/12/19 18 14:37 [facility] AST 18 15 - 46 U/L 11/11/2017 14:37 [facility] ALT 29 <53 U/L 11/11/2017 14:37 [facility] Albumin 4.1 3.4 - 4.9 g/dl 11/11/2017 14:37 [facility] Total Protein 7.1 6.3 - 8.2 g/dl 11/11/2017 14:37 [facility] Creatinine 0.61 0.52 - 1.04 mg/dl 11/11/2017 14:37 [facility] GFR, Calculated 125 >60 ml/min/1.7 3m2 11/11/2017 14:37 [facility] Comment: eGFR calculated using CKD-EPI equation for non Americans. Multiply eGFR by 1.16 for Americans. BUN 13 10 - 26 mg/dl 11/11/2017 14:37 [facility] Calcium 9.9 8.5 - 10.5 mg/dl 11/11/2017 14:37 [facility] Calculated Calcium 9.8 8.5 - 10.5 mg/dl 11/11/2017 14:37 [facility] Glucose, Serum 72 70 - 100 mg/dl 11/11/2017 14:37 [facility] Fasting? Unknown 11/11/2017 14:14 [facility] Blood specimen (specimen) BLOOD SPECIMEN / Unknown 11/11/2017 11:18 EDT 11/11/2017 14:02 EDT Abdoulaye Adie CHEMISTRY & BLOOD GA S ORDERABLES Performing Organization Address City/[facility] Co de Phone Number [facility] [address] [place] [address] * CK (11/11/2017 11:18 EDT) CK 37 30 - 135 U/L 11/11/2017 14:14 T [facility] Blood specimen (specimen) BLOOD SPECIMEN / Unknown 11/11/2017 11:18 EDT 11/11/2017 14:02 EDT Abdoulaye Adie CHEMISTRY & BLOOD GA S ORDERABLES Performing Organization Address City/[facility] Co de Phone Number [facility] [address] [place] [address] * (ABNORMAL) HEMAGRAM AND DIFFERENTIAL (11/11/2017 11:18 EDT) WBC 7.33 4.0 - 12.4 K/cmm 11/11/2017 17:03 EDT [facility] RBC 5.10(H) 3.86 - 5.04 M/cmm 11/11/2017 17:03 [facility] Hemoglobin 12.4 11.6 - 15.2 gm/dl 11/11/2017 17:03 [facility] HCT 37.9 34.9 - 44.4 % 11/11/2017 17:03 [facility] MCV Rev'd by Pathologist 81 - 98 fl 11/11/2017 15:52 [facility] MCH 24.3(L) 26.7 - 33.3 pg 11/11/2017 17:03 [facility] Hypochromia 1+ 11/11/2017 17:03 [facility] MCHC 32.7 32.1 - 35.9 gm/dl 11/11/2017 17:03 [facility] RDW-CV 16.0(H) <14.7 % 11/11/2017 17:03 [facility] RDW-SD 42.6 <50.4 fl 11/11/2017 17:03 [facility] PLT 279 141 - 377 K/cmm 11/11/2017 17:03 [facility] MPV 11.2 9.5 - 12.7 fl 11/11/2017 17:03 [facility] % Neutrophils 54.6 % 11/11/2017 17:03 [facility] % Lymphocytes 35.7 % 11/11/2017 17:03 [facility] % Monocytes 6.4 % 11/11/2017 17:03 [facility] % Eosinophils 1.8 % 11/11/2017 17:03 [facility] % Basophils 0.7 % 11/11/2017 17:03 [facility] % Immature Grans 0.8 % 11/11/2017 17:03 [facility] ABS Neutrophils 4.00 2.20 - 8.85 K/cmm 11/11/2017 17:03 [facility] ABS Lymphs 2.62 1.09 - 3.30 K/cmm 11/11/2017 17:03 EDT [facility] ABS Monocytes 0.47 0.1 - 0.8 K/[facility] 11/11/2017 17:03 EDT [facility] ABS Eosinophils 0.13 0.03 - 0.61 /[facility] 11/11/2017 17:03 EDT [facility] ABS Basophils 0.05 0.01 - 0.11 /[facility] 11/11/2017 17:03 EDT [facility] ABS Immature Grans 0.06 0 - 0.06 [facility] 11/11/2017 17:03 EDT [facility] Type of Diff: Automated 11/11/2017 17:03 T [facility] Blood specimen (specimen) BLOOD SPECIMEN / Unknown 11/11/2017 11:18 EDT 11/11/2017 14:02 EDT Abdoulaye Gonzalez PACKAGES & DNA PROBE ORDERABLES Performing Organization Address City/[facility]/ZIP Co de Phone Number [facility] [address] [place] [address] * LYME AB (11/11/2017 11:18 EDT) Lyme AB Negative 11/12/2017 14:11 EDT [facility] Comment:Reference Range: Neg ative Blood specimen (specimen) BLOOD SPECIMEN / Unknown 11/11/2017 11:18 EDT 11/11/2017 14:02 EDT Abdoulaye Gonzalez IMMUNOLOGY AND SEROL OGY ORDERABLES Performing Organization Address [facility]/ZIP Co de Phone Number [facility] [address] [place] [address] documented in this encounter Visit Diagnoses Diagnosis Other fatigue- Primary Generalized weakness Other malaise and fatigue Pain in both upper extremities Myalgia Mylagia and myositis, unspecified documented in this encounter Care Teams Block Splitter Operator Relationship Specialty Start Date End Date Carlos Abdoulaye PCP - General 12/22/15 04/05/18 documented as of this encounter
--- OUTSIDE RECORDS SUMMARY | 2024-04-14 20:38 | XMS_ITS | Encounter Summary ---
Author Organization [facility] Address [address] [place] [address] Care Team Providers Care Hand Expansion Envelope Maker Name Role Phone Abdoulaye Gonzalez Primary Care Provider [phone] Reason for Referral * (Routine) - Closed Specialty Diagnoses / Procedures Referred By Contsaadia t Referred To Contact Joseph Borrero MD [address] [place] [address] Referral ID Status Reason Start Date Expiration Date V isits Requested Visits Authorized [id number] Closed Specialty Services Required 08/08/2017 1 1 Comments You have an upcoming appointment on 08/13/2017 Reason for Visit * Reason Comments Contractions Encounter Details Date Type Department Care Team (Late st Contact Info) Description 08/08/2017 19:14 EST - 08/08/2017 22:41 EST Hospital Encounter [facility] [address] [place], [place] [address] Iman Weiss MD [address] [place] [id number] Sonali Wolff MD [address] [place] [address] Supervision of high risk in third trimester (Primary Dx) Discharge Disposition: Home or Self Care Social History Tobacco Use Types Packs/Day Years Used Date Smoking Tobacco: Former Cigarettes 0.3 10 0 01/02/2004 - 01/01/2014 Smokeless Tobacco: Never Alcohol Use Standard Drinks/Week Comments No 0 (1 standard drink = 0.6 oz pur e alcohol) rare social Comments Yes Sex and Gender Information Value Date Recorded Sex Assigned at Not on file Gender Identity Not on file Sexual Orientation Not on file documented as of this encounter Last Filed Vital Signs Vital Sign Reading Time Taken Comments Blood Pressure 136/78 08/08/2017 2200 EST Pulse - - Temperature 36 ??C (96.8 ??F) 08/08/2017 1929 EST Respiratory Rate 20 08/08/2017 2200 EST Oxygen Saturation - - Inhaled Oxygen Concentration - - Weight - - Height - - Body Mass Index - - documented in this encounter Functional Status Functional Status Response Date of Assess ment Are you deaf or do you have serious difficulty h earing? Yes 06/23/2017 Are you blind or do you have serious difficulty seeing, even when wearing glasses? No 06/23/2017 Do you have serious difficul ty walking or climbing stairs? (5 years old or older) No 06/23/2017 Do you have difficulty dress ing or bathing? (5 years old or older) No 06/23/2017 Because of a physical, menta l, or emotional condition, do you have difficulty doing errands alone such as visiting a doctor's office or shopping? (15 years old or older) No 06/23/2017 Cognitive Status Response Date of Assessm ent Because of a physical, menta l, or emotional condition, do you have serious difficulty concentrating, remembering, or making decisions? (5 years old or older) No 06/23/2017 documented as of this encounter Discharge Diagnoses Diagnosis O26.893 Other specified related conditions, third trimester-O26.893[ICD-10-CM] M54.9 Dorsalgia, unspecified-M54.9[ICD-10-CM] Z87.898 Personal history of other specified conditions-Z87.898[ICD-10-CM] Z3A.38 38 weeks gestation of -Z3A.38[ICD-10-CM] documented in this encounter Discharge Instructions * Instructions* Joseph Borrero MD - 08/08/2017 22:30 EST Resume the 24 hour urine collection when you get home (throw out the urine that was there previously and start over). documented in this encounter Medications at Time of Discharge Medication Sig Dispensed Refills Start Date End Date acetaminophen (TYLENOL) 500 mg tablet Take 2 Tabs by mouth every 6 hours as needed for Pain. 06/21/2017 08/13/2017 albuterol 90 mcg/actuation inhaler Inhale 1 Puff as directed every 4 hours as needed for Wheezing. 1 Inhaler 2 11/04/2016 09/10/2017 aspirin chewable 81 mg tablet Take 81 mg by mouth daily. 08/13/2017 DIPHENHYDRAMINE HCL (BENADRYL ORAL) Take by mouth as needed. 08/13/2017 guaiFENesin (ROBITUSSIN) 100 mg/5 mL liquid Take 200 mg by mouth every 6 hours as needed. 08/13/2017 VITS62/FA/OM3/DHA/EPA ( GUMMY ORAL) Take by mouth daily. 02/12/2018 sumatriptan (IMITREX) 50 mg tablet Take 1 Tab by mouth once as needed for up to 1 dose for Migraine. May repeat 1 in two hours if needed do not exceed more than 5 per month 9 Tab 11 03/19/2016 09/10/2017 documented as of this encounter Discharge Disposition Disposition Code Departure Means Destination Home or Self Care documented in this encounter Progress Notes * Siria Dixon CNM - 08/08/2017 6982 EST S/ Gladys called with UCs starting at 1400 increased to more frequent and more intense. Arrived to L&D ~ 7 pm with scant bloody show and UCs with back pain. Denies Headache , visual changes, edema. Up walking laps to increase UCs. Back pain resolved. Pt felt UCs were more intense. Has been collecting 24 hour urine. O/Blood pressure 136/78, temperature 36 ??C (96.8 ??F), temperature source Tympanic, resp. rate 20,last menstrual period 11/09/2016. BP initially elevated with UC pain when checked audibly between contractions normotensive UCs q 3-5 min FHTs 120s baseline accels to 150-160s no decels VE at 7 pm 3 cm/70/-1 vertex well applied VE at 10:20 pm same scant bloody show and membranes swept per pt request. A/ IUP 38w6d H/O anxiety H/O kidney stones H/O PEC with previous ; R/O PEC with this P/ D/C home Recommended she dump 24 hour urine and start over ( has voided here several times) Encouraged hydration and shower and attempt to sleep tonight. Reviewed CNM schedule over the next few days; understands MJG is on tomorrow. Still asks for membrane sweep. When to call CNM and when to return for eval reviewed. * Huong Dowell RN - 08/08/20171937 EST 1930: Patient has just arrived to room STACEY Phelps and DAMASO in room, pt reporting being very uncomfortable with back pain that has been increasing since 1600. Denies SROM or vb, has had some bloody show.When this RN in room, DAMASO Dixon checking cervix. 1934 Rnst obtained, pt off monitor and encouraged to stand, lean over, use birthing ball etc to relieve back labor and encourage labor. 1944: CNEric updated, plan for IA and re-check cervix in few hours 2100: gladys has been ambulating in the andujar, she is reporting that contractions are more frequent and painful and seem to be coupled together, her pain is no longer just in her back and is more intense in front. She also reported 1 episode of leaking with 1 contraction but has not continued. 2219: cervix remains unchanged, DAMASO Dixon swept membranes per patient request 2237: patient discharged to home, AVS in hand and all questions answered. * Chana Phelps RN - 08/08/20171930 EST Pt came in looking very uncomfortable.BP 145/90.C/O back labor. VE last fri. 2-3cm.report to Leni Dowell RN.Kristal Dixon CNM here. documented in this encounter Plan of Treatment Scheduled Referrals Name Type Priority Associated Diagnoses Order Schedule PROVIDER FOLLOW-UP INSTRUCTIONS Outpatient Referral Routine Ordered: 08/08/2017 documented as of this encounter Goals Goal Patient Goal Type Associated Problems Recent Progress Patient-Stated? Author Blood Pressure < 130/80 Blood Pressure 118/78(2017 16:01 EDT) No Rina Agosto MD Weight Loss General Yes Rina Agosto MD Note: Goal = 145lbs documented as of this encounter Visit Diagnoses Diagnosis Supervision of high-risk - Primary Unspecified high-risk Supervision of high risk in third trimester Unspecified high-risk documented in this encounter Orders Diet Count Last Ordered Date First Orde red Date DISCHARGE DIET 2 08/08/2017 Nursing Count Last Ordered Date First Orde red Date BATHING INSTRUCTIONS 1 08/08/2017 WOUND CARE INSTRUCTIONS 1 08/08/2017 Admission Count Last Ordered Date First Orde red Date STATUS: OUTPATIENT OBSERVATION SERVICES 1 1 Transfer Count Last Ordered Date First Orde red Date NOTIFY PPS OF DISCHARGE COMPLETE 1 08/08/20 17 Discharge Count Last Ordered Date First Orde red Date DISCHARGE PATIENT 1 08/08/2017 Legal Count Last Ordered Date First Orde red Date MISCELLANEOUS DISCHARGE INSTRUCTIONS 1 07/12 documented in this encounter Care Teams Hand Expansion Envelope Maker Relationship Specialty Start Date End Date Abdoulaye Gonzalez PCP - General 12/22/15 04/05/18 documented as of this encounter
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
--- OUTSIDE RECORDS SUMMARY | 2024-04-14 20:38 | XMS_ITS | Encounter Summary ---
Author Organization [facility] Address [address] [place] [address] Care Team Providers Care Beam Saw Operator Name Role Phone Abdoulaye Gonzalez Primary Care Provider [phone] Reason for Visit * Reason Onset Date Comments Contractions 07/25/2017 Encounter Details Date Type Department Care Team (Late st Contact Info) Description 07/25/2017 Telephone [facility] - [address] [phone] Caron Guardado APRN [employer] [address] [facility], [address] [place] [phone] Contractions Social History Tobacco Use Types Packs/Day Years [...] No 06/23/2017 documented as of this encounter Miscellaneous Notes * Telephone Encounter - Caron Guardado CNM - 07/25/20172121 EST Gladys called at 36w6d with concern about frequent contractions. Has been elizabeth all day andhas low back pain. Not much more uncomfortable but now they are q 3 min for past few hours. No fluid leak or vaginal bleeding. Talking thru contractions during our conversation. Busy with 2 sons, outand about with them as has to work. No available family/friends close by to help. Thinks she might be dehydrated after discussing day. Has a cold and having diarrhea - resolving GI virus. Hasbeen able to hydrate PO as no nausea/vomiting. Advised continued pushing of fluids, warm bath afterhusband comes home to relieve her of kid care. Call back with increased intensity or contractions or SROM. documented in this encounter Plan of Treatment [...] on filedocumented in this encounter Care Teams Beam Saw Operator Relationship Specialty Start Date End Date Abdoulaye Gonzalez PCP - General 12/22/15 04/05/18 documented as of this encounter
--- OUTSIDE RECORDS SUMMARY | 2024-04-14 20:38 | XMS_ITS | Encounter Summary ---
Author Organization [facility] Address [address] [place] [address] Care Team Providers Care Rent And Miscellaneous Remittance Clerk Name Role Phone Abdoulaye Gonzalez Primary Care Provider [phone] Reason for Referral * Consult (Routine) - Specialty Report Received Specialty Diagnoses / Procedures Referred By Contac t Referred To Contact Midwifery / Obstetrics & Gynecology Diagnoses Supervision of high risk in third trimester Vielka Fermin MD [address] [place] [phone] CRISTIANO SURVEYOR'S ASSISTANT-[address] [address] Referral ID Status Reason Start Date Expiration Date Visits Requested Visits Authorized [id number] Specialty Report Received Specialty Services Required 08/12/2017 1 1 Question Answer Reason for Request: visit Scheduling Comments (optional ? describe specific scheduling needs if applicable): 2 and 6 weeks Expected Discharge Date (Inpatient Only): 08/12/2017 * (Routine) - Receiving Office to Obtain Authorization Specialty Diagnoses / Procedures Referred By Contac t Referred To Contact Vielka Fermin MD [address] [place] [phone] Referral ID Status Reason Start Date Expiration Date Visits Requested Visits Authorized [id number] Receiving Office to Obtain Authorization Specialty Services Required 08/12/2017 1 1 Comments See your investigator utility bill complaints in 6 weeks. Please call for an appointment. * (Routine) - Receiving Office to Obtain Authorization Specialty Diagnoses / Procedures Referred By Gregory velez Referred To Contact Vielka Fermin MD [address] [facility] [address] [place] [phone] Referral ID Status Reason Start Date Expiration Date Visits Requested Visits Authorized [id number] Receiving Office to Obtain Authorization Specialty Services Required 08/12/2017 1 1 * Consult (Routine) - Closed Specialty Diagnoses / Procedures Referred By Contsaadia velez Referred To Contact Obstetrics Diagnoses Supervision of high risk in third trimester Agustian Carrero MD [address] [place] [address] Karrie Akins MD [address] [place] [address] [address] [place] [address] Referral ID Status Reason Start Date Expiration Date V isits Requested Visits Authorized [id number] Closed Specialty Services Required 08/10/2017 1 1 Question Answer Reason for Request: hx of anxiety, exacerbated with recent family stressors and delivery of Reason for Visit * Reason Comments Contractions Encounter Details Date Type Department Care Team (Late st Contact Info) Description 08/09/2017 4:43 EST - 08/13/2017 13:40 EST Hospital Encounter [facility] Maternity Unit [address] [place] [id number] Sonali Wolff MD [address] [place] [address] Supervision of high risk in third trimester (Primary Dx); S/P section; Preeclampsia, unspecified trimester; Adjustment reaction with anxious mood Discharge Disposition: Home-Health Care Svc Social History Tobacco Use Types Packs/Day Years [...] Sign Reading Time Taken Comments Blood Pressure 138/86 08/13/2017 0830 EST Pulse - - Temperature 36.8 ??C (98.2 ??F) 08/13/2017 0830 EST Respiratory Rate 18 08/13/2017 0830 EST Oxygen Saturation 98% 08/13/2017 1227 EST Inhaled Oxygen Concentration - - Weight 97.1 kg (214 lb) 08/12/2017 1500 EST Height 162.6 cm (5' 4.02) 08/12/2017 1500 EST Body Mass Index 36.71 08/12/2017 1500 EST documented in this encounter Functional Status Functional [...] No 08/09/2017 documented as of this encounter Discharge Diagnoses Diagnosis O76 Abnlt in heart rate and rhythm comp labor and delivery-O76[ICD-10-CM] J45.901 Unspecified asthma with (acute) exacerbation-J45.901[ICD-10-CM] G57.32 Lesion of lateral popliteal nerve, left lower limb-G57.32[ICD-10-CM] O72.1 Other immediate hemorrhage-O72.1[ICD-10-CM] O99.355 Diseases of the nervous system complicating the puerperium-O99.355[ICD-10-CM] O99.344 Other mental disorders complicating childbirth-O99.344[ICD-10-CM] O99.52 Diseases of the respiratory system complicating childbirth-O99.52[ICD-10-CM] Z3A.39 39 weeks gestation of -Z3A.39[ICD-10-CM] Z37.0 Single live -Z37.0[ICD-10-CM] F32.9 Major depressive disorder, single episode, unspecified-F32.9[ICD-10-CM] F41.9 Anxiety disorder, unspecified-F41.9[ICD-10-CM] Z87.891 Personal history of nicotine dependence-Z87.891[ICD-10-CM] O69.81X0 Labor and delivery complicated by cord around neck, without compression, not applicable or unspecified-O69.81X0[ICD-10-CM] documented in this encounter Discharge Summaries * Kj Manzano MD - 08/09/2017 1428 EST Department of SURVEYOR'S ASSISTANT Maternal Discharge Summary Information for the patient's : Paul Reno Eric [[id number]] Paul Reyes John Maternal Name: Oral Reno : 1990 Attending: No att. providers found Admission: 08/09/2017 Discharge: 08/13/2016 Reason for Admission: Admission indication: Term labor/ROM Delivery Indications: Maternal Indications for delivery: Labor Indication for delivery: Not applicable Principal Procedure: Low Segment Transverse Secondary Procedures: none Hospital Course: Oral Reno is an 27 y.o. now at 39w0d who presented to L&D inspontaneous labor. She progressed spontaneously to 7 cm and then had AROM. She progressed to 8 cm and then developed deep recurrent variable decelerations. Given multiparous status, IUPC was placed and amnioinfusion was immediately started. There was a brief period where the variables appeared less deep; however, there was tachycardia with baseline 180 and then variables worsened. Decision was made to proceed to the OR for delivery for NRFA. She was rechecked in the OR just prior to starting the procedure and found to be 9 cm with worsening variables down to the 30 bpm and taking long to recover. She underwent an uncomplicated LTCS to deliver a live male infant in the CARLA position with assistance of a head lift. weighed 3,292g with Apgars of 8 and 9 and cord gases with arterial pH of 7.02 and BD of 12.5. Maternal EBL was 1,200 cc primarily due to uterine atony. See operative report for further details. The patient's course was complicated by anxiety - the patient had a Med Psych consult, was started on zoloft 25mg daily, and referred to Dr. Akins as outpatient. She also had a left foot drop thought to be secondary to peroneal nerve impingement which improved throughout her post-operative course, and asthma exacerbation for which she was started on prednisone, Z-pack and tessalon pearls, and albuterol nebs. She obtained good pain control, tolerated a regular diet, was ambulating and voiding independently. Her lochia was within normal limits and she initiated . The patient was subsequently discharged on POD# 4 with instructions to follow-up for routine careat 2 and 6 weeks. Hospital Problems: Active Hospital Problems Diagnosis Date Noted ??? *Supervision of high-risk 03/20/2017 CNM ACC Patient Transfer in at 18 weeks from [facility] Hx preeclampsia IOL at 37 weeks BMI 35 Hx kidney stones. Dating: [ 12/27/16 6w6d agrees with LMP of 11/09/16 ] PN labs: Blood type O POS Lab Results Component Value Date HGB 11.4 (L) 02/22/2017 HCT 32.1 (L) 02/22/2017 PLT 226 02/22/2017 LABANTI Neg 07/20/2014 HIVAB Negative 12/31/2016 VARICELLAIGG Interpretation: Positive 07/20/2014 RUBELLAIGG Positive 07/20/2014 HEPBSAG Negative 12/31/2016 SYPH Interpretation: Nonreactive 07/20/2014 CHRES 01/24/2016 No Chlamydia trachomatis DNA detected by park superintendent mediated amplification. GCRES 01/24/2016 No Neisseria gonorrhoeae DNA detected by park superintendent mediated amplification. CULTRESULT 03/05/2017 10,000 to 100,000 CFU/ml Usual urogenital cristine. hgb A1c; 4.7 PIH baseline labs [ WNL see trasfer records. ] 24 hour urine baseline [ ] Pap: 07/2016 negative Aneuploidy screening: [ integrated negative ] CF: [ ] Daily low dose ASA [ started ] Flu vaccine (): [ 06/04/17 ] Anatomy scan: [ WNL male ] OGTT/CBC: [ GTT 108, H/H/Plt 10.6/31.8/230, --> start iron] Switched to ferrous sulfate at 29w for GI upset Hgb at 33w [ 9.3/27.0 ] Repeat 07/23-07/30 [ 07/23/17 10.4 --> Iron BID] Tdap (after 28 wks): [ 06/04/17 ] Survey: [ Given ] Growth US BMI, hx PEC: [05/21/17 at 27w4d EFW 1198g, 44%ile, LEOPOLDO 16.8, breech ] 06/18/17 at 31w4d ??1,940 g 51%, LEOPOLDO 11.3, cephalic 07/16/17 at 35w4d 2,904 g 69%, LEOPOLDO 13.8, cephalic AP testing if indicated [ ] HSV [negative] GBS: [ NEG ] (Allergies?) VPMS Query [ Done 07/22/17 SL ] Informed consent for opioids signed [ 07/23/17 SL ] Contraception plans/Tubal[ POP ] Allergies: Adhesive; Latex, natural rubber; Morphine; Nickel; and Tramadol Medications during current : No prescriptions prior to admission. LABOR INFORMATION Labor Onset: Spontaneous Labor Analgesia: Epidural, Amniotic Fluid Color: Clear Duration Rupture of Membranes: 0.00 hours 1.00 minutes DELIVERY INFORMATION Low Segment Transverse ; Delivery / Repair Anesthesia: General anesthesia, EBL: 1,200.00 Placenta: Method: Controlled Cord Traction Labor and Delivery Complications and/or Procedures: None INFORMATION Date: 08/09/2017 Time: 1008 Weight: 3292 g (7 lb 4.1 oz) Sex: male Apgars: 8 9 Immunizations indicated : None Clinical Issues Needing Follow-up: Anxiety/depression - started on zoloft 25mg daily, with plan to increase to 50mg after 1 week; referral to Dr. Akins placed Left foot drop - peroneal nerve impingement H/O Pre-eclampsia - mild range pressures after delivery Asthma exacerbation - completed z-pack, home with prednisone 40mg x10d Contraception Plan: Abstinence, vasectomy, condoms Other: none Results Pending at Discharge: Test results still pending from this admission None Appointments Scheduled with [facility] in the Next 3 Months: Upcoming Appointments Aug 27, 2017 13:30 EST Post Visit with Genia Peters CNM [facility] Women's Services [facility] (--) [address] [facility] [address] [address] Oct 28, 2017 10:00 EDT Follow Up Return with Sujatha Craven MD [facility] Dermatology [facility] (--) [address] [address] Follow-Up Appointments and Procedures Recommended to Patient: Follow-up appointments and procedures Amb Cons/Follow Up Psych (Adult PC/Fam Med/OB/Neuro or External Ref) Reason for Request: hx of anxiety, exacerbated with recent family stressors and delivery of Authorizing Provider: Agustina Carrero MD Amb Consult/Follow Up Obstetrics Reason for Request: visit Scheduling Time Frame: 2 and 6 weeks Expected Discharge Date (Inpatient Only): 08/12/2017 Authorizing Provider: iVelka Fermin MD Keep all scheduled appointments Authorizing Provider: Vielka Fermin MD You should follow up with your [employer] See your investigator utility bill complaints in 6 weeks. Please call for an appointment. Authorizing Provider: Vielka Fermin MD Follow-Up Labs and Tests: Discharge Medications: START taking these medications Sig azithromycin 250 mg tablet Commonly known as: ZITHROMAX Take 1 Tab by mouth daily for 5 days. Quantity: 5 Tab benzonatate 100 mg capsule Commonly known as: TESSALON Take 1 Cap by mouth 3 times daily as needed for Cough. Quantity: 30 Cap docusate sodium 100 mg capsule Commonly known as: COLACE Take 1 Cap by mouth 2 times daily. Quantity: 60 Cap HYDROmorphone 2 mg tablet Commonly known as: DILAUDID Take 1-2 Tabs by mouth every 4 hours as needed for Pain. Daily Max: 24 mg Quantity: 10 Tab ibuprofen 400 mg tablet Commonly known as: MOTRIN Take 1 Tab by mouth every 4 hours as needed for Pain. predniSONE 20 mg tablet Commonly known as: DELTASONE Take 2 Tabs by mouth daily. Quantity: 10 Tab sertraline 50 mg tablet Commonly known as: ZOLOFT Please take 1/2 tab by mouth daily for 1 week and then increase to 1 tab by mouth daily. Quantity: 90 Tab CHANGE how you take these medications Sig acetaminophen 325 mg tablet Commonly known as: TYLENOL What changed: - medication strength - how much to take - when to take this Take 2 Tabs by mouth every 4 hours as needed for Pain. CONTINUE taking these medications Sig albuterol 90 mcg/actuation inhaler Inhale 1 Puff as directed every 4 hours as needed for Wheezing. Quantity: 1 Inhaler GUMMY ORAL Take by mouth daily. STOP taking these medications aspirin chewable 81 mg tablet BENADRYL ORAL guaiFENesin 100 mg/5 mL liquid Commonly known as: ROBITUSSIN Condition at Discharge: stable Discharge Disposition: home Vielka Fermin MD 08/18/2017 9:28 [facility] Inpatient Attending Attestation: I have examined Oral Reno myself, have reviewed her vitals, laboratory data, and chart history. I agree with the above assessment and plan as noted (otherwise I have inserted modifications in red). KJ MANZANO MD documented in this encounter Medications at Time of Discharge Medication Sig Dispensed Refills Start Date End Date acetaminophen (TYLENOL) 325 mg tablet Take 2 Tabs by mouth every 4 hours as needed for Pain. 08/12/2017 ibuprofen (MOTRIN) 400 mg tablet Take 1 Tab by mouth every 4 hours as needed for Pain. 08/12/2017 albuterol 90 mcg/actuation inhaler Inhale 1 Puff as directed every 4 hours as needed for Wheezing. 1 Inhaler 2 11/04/2016 09/10/2017 azithromycin (ZITHROMAX) 250 mg tablet Take 1 Tab by mouth daily for 5 days. 5 Tab 08/13/2017 08/18/2017 benzonatate (TESSALON) 100 mg capsule Take 1 Cap by mouth 3 times daily as needed for Cough. 30 Cap 3 08/13/2017 09/10/2017 docusate sodium (COLACE) 100 mg capsule Take 1 Cap by mouth 2 times daily. 60 Cap 2 08/12/2017 02/03/2018 HYDROmorphone (DILAUDID) 2 mg tablet Take 1-2 Tabs by mouth every 4 hours as needed for Pain. Daily Max: 24 mg 10 Tab 08/12/2017 09/10/2017 predniSONE (DELTASONE) 20 mg tablet Take 2 Tabs by mouth daily. 10 Tab 08/13/2017 09/10/2017 VITS62/FA/OM3/DHA/EPA ( GUMMY ORAL) Take by mouth daily. 02/12/2018 sertraline (ZOLOFT) 50 mg tablet Please take 1/2 tab by mouth daily for 1 week and then increase to 1 tab by mouth daily. 90 Tab 1 08/13/2017 02/12/2018 sumatriptan (IMITREX) 50 mg tablet Take 1 Tab by mouth once as needed for up to 1 dose for Migraine. May repeat 1 in two hours if needed do not exceed more than 5 per month 9 Tab 11 03/19/2016 09/10/2017 documented as of this encounter Ordered Prescriptions Prescription Sig Dispensed Refills Start Date End Da te ibuprofen (MOTRIN) 400 mg tablet Take 1 Tab by mouth every 4 hours as needed for Pain. 08/12/2017 acetaminophen (TYLENOL) 325 mg tablet Take 2 Tabs by mouth every 4 hours as needed for Pain. 08/12/2017 sertraline (ZOLOFT) 50 mg tablet Please take 1/2 tab by mouth daily for 1 week and then increase to 1 tab by mouth daily. 90 Tab 1 08/13/2017 02/12/2018 predniSONE (DELTASONE) 20 mg tablet Take 2 Tabs by mouth daily. 10 Tab 08/13/2017 09/10/2017 benzonatate (TESSALON) 100 mg capsule Take 1 Cap by mouth 3 times daily as needed for Cough. 30 Cap 3 08/13/2017 09/10/2017 azithromycin (ZITHROMAX) 250 mg tablet Take 1 Tab by mouth daily for 5 days. 5 Tab 08/13/2017 08/18/2017 HYDROmorphone (DILAUDID) 2 mg tablet Take 1-2 Tabs by mouth every 4 hours as needed for Pain. Daily Max: 24 mg 10 Tab 08/12/2017 09/10/2017 docusate sodium (COLACE) 100 mg capsule Take 1 Cap by mouth 2 times daily. 60 Cap 2 08/12/2017 02/03/2018 documented in this encounter Discharge Disposition Disposition Code Departure Means Destination [place] [facility] in this encounter Progress Notes * Agustin Arredondo MD - 08/13/2017 1054 EST Anesthesia Pain Service Subjective: This is a 27 y.o. year old female now PPD#3 following an urgent ceasarian delivery s/p failed surgical epidural converted to GETA. LE weakness has improved per patient, pain well controlled. Objective: Vitals: Blood pressure 138/86, temperature 36.8 ??C (98.2 ??F), temperature source Temporal, resp. rate 18, height 162.6 cm (64.02), weight 97.1 kg (214 lb), last menstrual period 11/09/2016, SpO2 100 %, unknown if currently . Coagulation Status: none Scheduled Medications: Current Facility-Administered Medications: acetaminophen (TYLENOL) tablet 650 mg oral Q4H PRN albuterol (ACCUNEB) nebulizer solution 2.5 mg nebulization Q6H PRN albuterol inhaler 1 Puff inhalation Q4H PRN azithromycin (ZITHROMAX) tablet 250 mg oral DAILY benzonatate (TESSALON) capsule 100 mg oral TID PRN calcium carbonate (TUMS) 200 mg calcium (500 mg) per chewable tablet tablet,chewable 2 Tab oral Q2HPRN dextromethorphan-guaifenesin (ROBITUSSIN DM) 10-100 mg/5 mL syrup 5 mL oral Q4H PRN dextrose 5 % and 0.45 % NaCl with KCl 20 mEq/L infusion intravenous CONTINUOUS docusate sodium (COLACE) capsule 100 mg oral BID HYDROmorphone (DILAUDID) tablet 2-4 mg oral Q4H PRN HYDROmorphone injection (DILAUDID) 0.5 mg/1 mL syringe 0.4 mg intravenous Q4H PRN ibuprofen (MOTRIN) tablet 400 mg oral Q4H PRN ipratropium-albuterol (DUONEB) 0.5 mg-3 mg(2.5 mg base)/3 mL nebulizer solution 3 mL nebulization QID oxytocin in lactated ringers 30 units/500 ml intravenous CONTINUOUS And lactated ringers (LR) infusion intravenous CONTINUOUS oxytocin in lactated ringers 30 units/500 ml intravenous CONTINUOUS And lactated ringers (LR) infusion intravenous CONTINUOUS lansinoh HPA lanolin topical PRN multivitamin vit-iron fumarate-FA (STUARTNATAL) 27 mg iron- 1 mg tablet 1 Tab oral DAILY ondansetron (PF) (ZOFRAN) injection 4 mg intravenous Q6H PRN Or ondansetron (ZOFRAN-ODT) disintegrating tablet 4 mg oral Q6H PRN sertraline (ZOLOFT) tablet 25 mg oral DAILY Allergies: Allergies Allergen Reactions ??? Adhesive Rash ??? Latex, Natural Rubber Rash ??? Morphine Nausea And Vomiting Morphine caused patient to feel very aggressive ??? Nickel Swelling ??? Tramadol Nausea Only Dizziness Labs: Lab Results Component Value Date WBC 4.18 08/12/2017 HGB 8.3 (L) 08/12/2017 HCT 24.9 (L) 08/12/2017 MCV 77 (L) 08/12/2017 PLT 226 08/12/2017 No results found for: INR, PROTIME Examination: General: NAD, post- female, obese Resp:no distressed breathing Neuro: muscle strength 5/5 all lower extremity muscle groups Site: Epidural site non-erythematous, non-swollen, and no ttp ? Analysis and Plan: This is a 27 y.o.??year old female??now PPD#3 following an urgent ceasarian delivery s/p failed surgical epidural converted to GETA. LE weakness has improved per patient, with slight decrement climbing stairs. Weakess resolved by my exam. There are no other s/s to suggest epidural hematoma. Please call with any questions. Agustin Arredondo MD 08/13/2017, 10:54 * Kj Manzano MD - 08/13/2017 0645 EST Postoperative Progress Note CC: s/p LTCS Subjective/Objective Subjective Overnight Oral had anxiety, chest pain, and shortness of breath. She was febrile to 38.1 but spontaneously defervesced. She has had a cough for four weeks, along with her and stepson. Albuterol and nebs not helping. Labs, EKG, and CXR were done. This morning she is feeling much improved. She no longer has chest pain or shortness of breath. Enjoyed meeting with [employer] yesterday. Pain well controlled. Passing flatus and had a BM. Tolerating regular diet without nausea/vomiting. Hasambulated. Lochia moderate. The patient denies CP/SOB/N/V/SANTIAGO/Dizziness/F/C/LE pain/vision changes /RUQ pain. Objective Vital Signs Temp: [36.4 ??C (97.5 ??F)-38.1 ??C (100.6 ??F)] (), Heart Rate: [86 BPM-134 BPM] (), Resp: [16-26] (), BP: (124-183)/(71-87) (), SpO2: [98 %-100 %] () Physical Exam Gen: NAD Resp: course breath sounds at the bases, clear anteriorly CV: RRR Abd: soft, nondistended, appropriately tender to palpation, fundus firm @ 1 cm below umbilicus, incision clean/dry/intact, abdominal binder in place Ext: WWP, 2+DPs, trace edema bilat Labs: CBC: Recent Labs 08/12/172000 WBC 4.18 RBC 3.23* HGB 8.3* HCT 24.9* MCV 77* MCH 25.7* MCHC 33.3 PLT 226 NEUTROABS 2.88 BMP: Recent Labs 08/12/172000 CREATININE 0.60 Coags: No results for input(s): PROTIME, INR, PTT in the last 72 hours. LFT: Recent Labs 08/12/172000 AST 24 ALT 26 EKG: sinus tachy Imaging: CXR: normal AP chest xray Assessment/Plan Assessment Oral Reno is a 27 y.o. POD#4 s/p LTCS at 39w0d for NRFA. Patient recovering slowly. She has a concurrent upper respiratory infection vs bronchitis, being treated with azithromycin and tessalon pearls. Febrile overnight but spontaneously defervesced, and no leukocytosis on CBC. EKG, CXR, and repeat PEC labs WNL. AVSS, appropriate UOP, meeting post-operative milestones. Ready for home today. Plan Anxiety Patient reporting significant anxiety related to multiple life stressors. Has history ofanxiety. - Started on 25 mg zoloft daily, will increase to 50 mg zoloft after 1 week - Referral to Dr. Akins placed for f/u as outpatient - Med psych consult completed Left foot drop Likely secondary to peroneal nerve impingement following epidural and general anesthesia. - PT consulted for recommendations on assistive devices - Appreciate APS recs Hx PEC w/o SF: Patient asymptomatic, BPs normotensive to mild-range. - Will continue to monitor S+S - Repeat PEC labs does /2 were wnl Shortness of Breath - Asthma and superimposed URI Patient with URI vs bronchitis and history of asthma; afebrile - Started on Z-pack - Tessalon pearls - Nebulized albuterol l4kwoda prn - Home with prednisone 40mg x 10d Continue routine post-op/post- care - Encourage IS, ambulation - Advance PO intake as tolerated - Support BF - Contraception: vasectomy, abstinence and condoms. Does not do well with LARCs or OCPs. - depression: discussed, patient aware - Pain: continue current pain regimen - Heme: Pre-op Hct 31.4 . EBL 1200 cc. Post-op Hct 26, appropriate - RI. . Rh+ - Circ completed - Dispo: Likely d/c home POD#4 Vielka Fermin MD 08/13/2017 6:45 PGY-1 Obstetrics and Gynecology Pager #[phone] [facility] Inpatient Attending Attestation: I have examined Oral Reno myself, have reviewed her vitals, laboratory data, and chart history. I agree with the above assessment and plan as noted (otherwise I have inserted modifications in red). Doing well currently, normal O2 saturation, does not feel short of breath, and is afebrile.Feels that she is having a mild asthma exacerbation, however. She sees her PCP in [place] for her asthma. I have recommended that she make an appt for the next week, but if her sxs acutely worsen, she will need to be seen in the ED. Will plan d/c home with prednisone x 7-10 days (40mg). Pthas required oral steroids multiple times in the past, though has not been hosptilized for her asthma since she was a child, and has never been intubated. Plan d/c home today. KJ MANZANO MD * [place], Mary Anne Rubalcava MD - 08/12/2017 2030 EST Update Note: CTSP for tachycardia and chest pain. She reports a cough that she has had for over a week, now muchworse and feels like she cannot stop coughing. Reporting chills, chest pain (both pleuritic and crushing) that has been worsening through the day, shortness of breath, and LUQ pain. Robitussin and albuterol nebs not helping. Reports headache from cough. Denies visual changes/RUQ pain/new or worsening LE edema. Denies calf pain. Patient Vitals for the past 24 hrs: BP Temp Temp src Resp SpO2 Height Weight 08/13/17 0444 128/76 36.4 ??C (97.5 ??F) Temporal 20 99 % - - 08/13/17 0256 - - - 20 - - - 08/13/17 0001 - - - 22 98 % - - 08/12/17 2341 128/79 37 ??C (98.6 ??F) Temporal 22 99 % - - 08/12/17 2217 131/77 37.7 ??C (99.9 ??F) Tympanic 22 98 % - - 08/12/173 - 38.1 ??C (100.6 ??F) Temporal - - - - 08/12/178 (!) 146/87 - - 26 98 % - - 08/12/17 1920 (!) 183/80 37.8 ??C (100 ??F) Temporal - 100 % - - 08/12/17 1853 - - - 16 99 % - - 08/12/17 1833 - 37.4 ??C (99.3 ??F) - - - - - 08/12/17 1550 130/81 36.9 ??C (98.4 ??F) Temporal 16 100 % - - 08/12/17 1500 - - - - - 162.6 cm (64.02) 97.1 kg (214 lb) 08/12/17 1241 130/71 36.4 ??C (97.5 ??F) Temporal 20 100 % - - 08/12/17 0903 - - - 20 100 % - - 08/12/17 0833 124/82 36.8 ??C (98.2 ??F) Temporal 16 100 % - - GEN: Appears in moderate distress, cannot open her eyes, moaning CV: Tachycardic, regular rhythm, no murmur CHEST: Significant breast engorgement, tenderness on palpation of breasts and chest wall, chest pain reproducible with palpation. No erythema or induration. PULM: Exam limited by effort, but expiratory wheeze and crackles ABD: Obese, soft, non-tender, non-distended, +BS, incision c/d/i with suture and dermabond, no erythema or drainage, abdominal binder in place EXT: No calf tenderness, trace edema, 2+ pulses Recent Labs 08/10/17 0642 08/12/172000 WBC 11.98 4.18 HCT 26.4* 24.9* HGB 8.5* 8.3* PLT 184 226 CREATININE -- 0.60 ALT -- 26 AST -- 24 LDH -- 489 FIBRINOGEN --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 complains of left lower extremity weakness that has persisted since delivery, although she reports not mentioning this during our post-op evaluation yesterday because there was so much craziness going on. She reports that she has had some difficulty ambulating and that her l leg feels heavy. Denies any saddle paraesthesias, back pain, headaches, dizziness, vision changes, changes in bowel function, urinary incontinence, fevers, other symptoms. A 10 point ROS was reviewed and negative except as stated in the HPI. Coagulation Status: not on any anticoagulation Scheduled Medications: Current Facility-Administered Medications: acetaminophen (TYLENOL) tablet 650 mg oral Q4H PRN albuterol (ACCUNEB) nebulizer solution 2.5 mg nebulization Q6H PRN albuterol inhaler 1 Puff inhalation Q4H PRN calcium carbonate (TUMS) 200 mg calcium (500 mg) per chewable tablet tablet,chewable 2 Tab oral Q2HPRN dextrose 5 % and 0.45 % NaCl with KCl 20 mEq/L infusion intravenous CONTINUOUS docusate sodium (COLACE) capsule 100 mg oral BID HYDROmorphone (DILAUDID) tablet 2-4 mg oral Q4H PRN HYDROmorphone injection (DILAUDID) 0.5 mg/1 mL syringe 0.4 mg intravenous Q4H PRN ibuprofen (MOTRIN) tablet 400 mg oral Q4H PRN oxytocin in lactated ringers 30 units/500 ml intravenous CONTINUOUS And lactated ringers (LR) infusion intravenous CONTINUOUS oxytocin in lactated ringers 30 units/500 ml intravenous CONTINUOUS And lactated ringers (LR) infusion intravenous CONTINUOUS lansinoh HPA lanolin topical PRN multivitamin vit-iron fumarate-FA (STUARTNATAL) 27 mg iron- 1 mg tablet 1 Tab oral DAILY ondansetron (PF) (ZOFRAN) injection 4 mg intravenous Q6H PRN Or ondansetron (ZOFRAN-ODT) disintegrating tablet 4 mg oral Q6H PRN sertraline (ZOLOFT) tablet 25 mg oral DAILY Allergies: Allergies Allergen Reactions ??? Adhesive Rash ??? Latex, Natural Rubber Rash ??? Morphine Nausea And Vomiting Morphine caused patient to feel very aggressive ??? Nickel Swelling ??? Tramadol Nausea Only Dizziness Labs: Lab Results Component Value Date WBC 11.98 08/10/2017 HGB 8.5 (L) 08/10/2017 HCT 26.4 (L) 08/10/2017 MCV 78 (L) 08/10/2017 PLT 184 08/10/2017 No results found for: INR, PROTIME Examination: Vitals: Blood pressure 141/73, temperature 36.6 ??C (97.9 ??F), temperature source Temporal, resp. rate 18, last menstrual period 11/09/2016, SpO2 100 %, unknown if currently . General: NAD, post- female, obese Resp:no distressed breathing Neuro: muscles strength 4/5 in LLE in hip flexion, leg flexion/ext, foot dorsi/plantar flexion (compared to 5/5 in same muscle groups on R). No paraesthesias elicited and sensory intact Site: Epidural site non-erythematous, non-swollen, and no ttp Analysis and Plan: This is a 27 y.o. year old female now PPD#2 following an urgent ceasarian delivery s/p failed surgical epidural converted to GETA. Weakness has not progressed significantly and this likely representslumbosacral plexopathy 2/2 to surgical manipulation. There are no other s/s to suggest epidural hematoma at this time but we will continue to follow. Should any symptoms change acutely, would recommend imaging to r/o neuraxial trauma or hematoma formation. Darrin Paredes DO #[id number] 08/11/2017, 18:25 * Roberta Garcia - 08/11/2017 1612 EST CONNIE Note: CONNIE called to consult about an incident that happened earlier today with Pt's clare, age 4 who wasvisiting his FOB while he was here with Pt. CONNIE spoke with both parents briefly. Maternal grandmother and paternal grandmother available for support. They do have a DCF worker out of [facility] office named Saad. SW will file a report with hotline. SW strongly encouraged FOB to do the same. All children will be in separate places this evening. Roberta Garcia CIVIL CAD DESIGNER #[id number] Addendum: CONNIE confirmed that FOB had made a report about the incident in detail. Intake # [id number] * Vilma Meneses, - 08/11/2017 0630 EST Respiratory Consult/Progress Note Indications for Respiratory therapy: shortness of breath Data Vitals: Heart Rate: 73 BPM, Resp: 18, SpO2: 100 % FIO2/O2 Device: O2 Flow Rate (L/min): 0 l/min, , O2 Device: None, RT Orders: PRN Albuterol Protocol Scoring: Bronchodilator/Inhalation Therapy Frequency Bronchodialator - Clinical Indications: History of bronchospasm Breath Sounds: Any abnormal BS decreased Response: No change / no treatment Pulse: <100 Resp Rate: 18-25 SOB: With exertion Total Score: 3 Comment:: PRN Airway Clearance Therapy Frequency Airway Clearance - Clinical Indications: No clinical indications Breath Sounds: Clear / diminished Sputum: Small (tsp) / None Consistency: None Cough Effort: Strong, non-productive Color: None Total Score: 0 Hyperinflation Therapy Frequency Hyperinflation - Clinical Indications: No clinical indications Breath Sounds: Other Surgery: No X-Ray / Atelectasis: No O2 Requirements: O2 at baseline Mobility Status: Mobile / at baseline Total: 1 Comment: PRN Action/Events Respiratory events; Pt given one albuterol neb with slight improvement after. RT Esperanza 08/11/17 * Xiao Santos MD - 08/11/2017 0536 EST Postoperative Progress Note CC: s/p LTCS Subjective/Objective Subjective Patient reports shortness of breath and chest tightness. She has had a cough for over 3 weeks now. This initially improved, but now has gotten worse. She has a history of asthma as well. Pain well controlled. Passing flatus, no BM. Tolerating regular diet without nausea/vomiting. Has ambulated. Lochia moderate. Working on pumping and breast feeding. The patient denies CP/SOB/N/V/SANTIAGO/Dizziness/F/C/LE pain/vision changes / RUQ pain. Objective Vital Signs Temp: [36 ??C (96.8 ??F)-36.4 ??C (97.5 ??F)] (), Heart Rate: [99 BPM-104 BPM] (), Resp: [16-18] (), BP: (117-126)/(66-81) (), SpO2: [99 %-100 %] () Intake/Output Summary (Last 24 hours) at 08/11/17 05 Last data filed at 08/10/17 1800 Gross per 24 hour Intake 542 ml Output 1840 ml Net -1298 ml Physical Exam Gen: NAD Resp: course breath sounds over LLL field, clear to auscultation otherwise. CV: RRR Abd: soft, nondistended, appropriately tender to palpation, fundus firm @ 1 cm below umbilicus, incision clean/dry/intact Ext: WWP, 2+DPs, trace edema bilat Assessment/Plan Assessment Oral Reno is a 27 y.o. POD#2 s/p LTCS at 39w0d for NRFA. Patient recovering slowly. Her cough, shortness of breath, and chest tightness could be secondary to bacterial bronchitis superimposed on viral bronchitis, PNA is less likely as patient is afebrile. Also less likely on the differential are PE and aspiration pneumonitis. Patient has a history of asthma. Her vitals are stable. She has had baseline tachycardia here, but she is not tachycardic presently. She is satting well on RA. Her VSS. Plan Anxiety Patient reporting significant anxiety related to multiple life stressors. Has history ofanxiety. - Started on 25 mg zoloft daily, will increase to 50 mg zoloft after 1 week - Referral to Dr. Akins placed for f/u as outpatient - Will consult Med psych on 08/12 Left foot drop Likely secondary to peroneal nerve impingement following epidural and general anesthesia. - PT consulted for recommendations on assistive devices Hx PEC w/o SF: Patient asymptomatic, BPs normotensive. - Will continue to monitor S+S Shortness of Breath Patient with history of asthma, feeling wheezy. Lungs have coarse breath sounds over LLL on exam. Could be secondary to bacterial bronchitis. - Nebulized albuterol [id number] prn - If no relief from nebulizer, will consider CXR then starting abx to treat bacterial bronchitis Continue routine post-op/post- care - Encourage IS, ambulation - Advance PO intake as tolerated - Support BF - Contraception: will discuss prior to d/c - depression: discussed, patient aware - Pain: continue current pain regimen - Heme: Pre-op Hct 31.4 . EBL 1200 cc. Post-op Hct 26, appropriate - RI. . Rh+ - Dispo: Likely d/c home POD4 Agustina Carrero MD 08/11/2017 5:13 Pager [phone] Attestation: I saw and examined the patient with the resident/fellow 08/11/2017. I agree with the findings and plan of care documented in the resident's/fellow's note. POD 2 s/p LTCS for NRFA, doing well. H/o anxiety started on zoloft with plan for med psych and outpatient follow-up. Feeling better today. Has URI with h/o RAD. O2 sats appropriate will treat with albuterol. Left leg sensory changes,can weight bear but some weakness. Will discuss with anesthesia today and get PT consult. Xiao Santos MD 08/11/2017 9:05 * Agustina Carrero MD - 08/10/20172125 EST Event Note: S: Called by RN that patient having weakness in left foot and difficulty with walking when going tothe bathroom. She also received report from other RNs that left was slightly more swollen than right foot. Talked to patient, and she reports that she had an epidural in labor and her body was involuntarilypushing before she was complete. She then had general anesthesia for her CS. She reports that she has had left foot weakness since delivery. She also reports decreased sensation in her left foot. O: T: 36.1. HR 104. BP 126/81. RR 16. O2sat 100% RA Gen: sitting in bed pumping Abd: soft, appropriately tender to palpation, fundus firm below umbilicus, incision c/d/i Neuro: 5/5 strength dorsiflexion of right foot compared to 4/5 strength with dorsiflexion of left foot. 5/5 with plantarflexion bilaterally. 5/5 strength on knee extension on right, 3/5 on left. 2+ patellar and achilles reflexes bilaterally. Patient reports decreased sensation on top of left foot compared to right foot with better sensation on underside of left foot to light touch. A/P: Oral Reno is a 27 y.o. F , POD#1 s/p LTCS for non-reassuring heart tones. Patient recovering well, AVSS with persistent tachycardia which appears to be her baseline and adequateUOP. Her weakness and numbness are likely secondary to malpositioning causing peroneal nerve impingement following epidural and CS. Patient's symptoms should improve. - Will consult PT for recommendations on assistive devices Discussed with Dr. wAan PGY3 and Dr. Dane Carrero MD 08/10/2017 21:57 * Agustina Carrero MD - 08/10/2017 191 EST Event Note: S: Called by RN to talk to patient about worsening anxiety symptoms. Talked to patient about her history of anxiety, which began when she was young. She was on Prozac initially, which increased her SI. She was then on another medication, the name for which she can not remember, but which helped her. She went off medication and her mood has been stable for years and throughout her . She has also tried counseling in the past and would be open to this, but is concerned because she does not have health insurance. She reports that she has anxiety right now which is related to not feeling in control of her life. Her recent life stressors have been her 's son with another person who is young, but says that he hates her. She has been caring for him more recently and this has been very distressing. She is anxious regarding the events of her CS as the decision was made to proceed to CS secondary to non-reassuring assessment and it was done under general anesthesia. is also a source of stress for her, as is [facility] Her is no longer being allowed any paternity leave, but she does have a support system of her mom and sister. She plans to stay with them in [place] to have extra help after sheis discharged from the hospital. The patient denies any thoughts of self-harm and reports that her family is her motivation. O: Patient sitting upright in bed, talking quickly, denies SI. A/P: Patient seems to have SEBASTIAN which is exacerbated by recent life stressors such as her step-son and unexpected CS. - Will start sertraline 25 mg daily for 1 week, then increase to 50 mg daily - Will consult Med/Psych to see patient as inpatient - Will arrange for outpatient follow up with Dr. Akins Discussed with Dr. Awan, PGY3 and Dr. Dane Carrero MD 08/10/2017 19:28 * Gris Vela MD - 08/10/2017 0711 EST Progress Note ID: Oral Reno is a 27 y.o. PPD #1 s/p LTCS at 39w0d weeks. Subjective: She is doing well, tolerating PO intake, and ambulating with some assistance. Rhodes recently removed and she has not voided independently yet. Pain well controlled with current pain meds; also using an abdominal binder for additional support. Lochia described as minimal. Breast-feeding progressing well with nipple murray. Denies SANTIAGO, blurry vision, or RUQ abdominal pain. LE edema slightly increased. Objective: VS: BP 110/64 (BP Cuff Location: Right arm, Patient Position: Semi fowlers) Temp 36 ??C (96.8 ??F) (Temporal) Resp 16 LMP 11/09/2016 Comment: Irregular cycles SpO2 100% ? Unknown Range: Temp: [36 ??C (96.8 ??F)-37.6 ??C (99.7 ??F)] () Intake/Output Summary (Last 24 hours) at 08/10/17 0711 Last data filed at 08/10/17 0630 Gross per 24 hour Intake 9234 ml Output 4025 ml Net 5209 ml Exam: Gen: no acute distress. Lungs: Clear to auscultation, bilaterally CV: RRR ABD: Soft, appropriately tender, +BS, fundus firm 1cm below umbilicus. Extrem: no peripheral edema Assessment & Plan: Oral Reno is a 27 y.o. PPD #1 s/p LTCS at 39w0d weeks. Doing well. Post course uncomplicated. ?? Hx PE w/o SF: BP within normal range since delivery yesterday ?? Hct pre-op 31.4. Will f/u repeat CBC today ?? Routine post care, nothing per vagina for 6 wks ?? Encourage ambulation, PO intake ?? Pain Management--continue current medication regimen ?? Bowel management--recommend stool softeners to minimize straining ?? Breast feeding - feeding progressing appropriately, continue encouragement ?? depression--discussion deferred; will address prior to discharge ?? Contraception - discussion deferred; will address prior to discharge ?? RH + ?? Rubella immune, Varicella immune ?? Requests circumcision, this will happen today or tomorrow AM. Clinic Lead is Estela Lara. DISPO: Home likely POD3-4 Rina Haile MD 08/10/2017 7:11 Family Medicine [phone] Attestation: I saw and examined the patient 08/10/2017. I agree with the resident's/fellow's findings and plans as documented. POD 1 s/p PCS for NRFA in context of PEC w/o SF. Currently asx. BPs intermittently mild range. No meds. Desires circ. Dc POD 3-4 Gris Vela MD, 08/10/2017 12:14 * Rina Haile MD - 08/09/2017 1626 EST Post-op Check S: Doing well, pain currently 5/10 after recently taking medications; waiting for pain meds to kick in. No flatus, no BM. Only PO has been sips of water; no nausea or vomiting. Has not ambulated. Rhodes in place. The patient denies SANTIAGO/Dizziness/blurry vision. O: BP (P) 128/76 (BP Cuff Location: Right arm, Patient Position: Supine) Temp (P) 37.1 ??C (98.8 ??F) (Tympanic) Resp (P) 16 LMP 11/09/2016 Comment: Irregular cycles SpO2 (P) 100% ? Unknown Intake/Output Summary (Last 24 hours) at 08/09/17 1626 Last data filed at 08/09/17 1553 Gross per 24 hour Intake 8221 ml Output 2550 ml Net 5671 ml Gen: NAD Resp: Breath sounds clear on auscultation of anterior lung sousa bilaterally CV: regular rate and rhythm Abd: soft, appropriately tender at incision, non-distended, incision c/d/i Ext: WWP, 2+DPs, trace pedal edema A/P: Oral Reno is a 27 y.o. F , POD#0 s/p LTCS for non- reassuring heart tones. Pt recovering well, AVSS and adequate UOP. PAIN: Gaining control with current regimen. CV: Stable, no active issues. RESP: No active issues, encourage IS. GI: Regular diet as tolerated. Phenergan, zofran prn for nausea. ?? : Rhodes in place, will d/c once ambulating. FEN: LR infusing; saline lock IV once tolerating adequate po (>500cc/shift). ENDO: No active issues. HEME: Will obtain CBC tomorrow morning. ID: Afebrile, no active issues. PPX: Ambulation, IS, SCD's D/C: Once tolerating po, pain well controlled, ambulating and voiding independently Rina Haile MD 08/09/2017 16:26 * Natalia Swan MD - 08/09/2017 1021 EST Event note: Called to assess patient for increasing vaginal pressure. Patient was involuntarily pushing with contractions. SVE 8, thickened on the right/ 90%/ +1 station. At this time FHT 125, moderate variability, occasional late decels with contractions q 2-3 min. The patient was extremely uncomfortable so anesthesia was called for epidural bolus. Ten minutes later (9:10), deep variable decels initially to 90s with tachycardia to 150-160s. Patient was repositioned with O2 placed. FSC placed. SVE was unchanged and positioned thought to beROA vs LOP and asynclitic. At this time the variables deepened to corine 60-70s with rebound tachycardia to the 170- 190. An IUPC was placed and an amnioinfusion was initiated, but as the variables persisted and did not improve with no further progression in cervical change, a section for nonreassuring assessment was recommended. Surgical consent was discussed and signed and ancef and azithromycin were ordered. Anesthesia at bedside. Peds for delivery. Natalia Swan M.D. PGY4 Pager [phone] * Xiao Santos MD - 08/09/2017 0954 EST OB Note CTSP for recurrent variable decels, 8cm 0 station. Ctx q 1-3 min. Amnioinfusion performed without response, will proceed to OR for NRFA. Anesthesia aware. Peds at delivery. Xiao Santos MD Department of Maternal Medicine * Xiao Santos MD - 08/09/2017 0815 EST OB ATTG Note Pt requesting MD care for delivery. 27yo at 39+0 admitted in spontaneous labor, meeting criteria for PEC w/o SF based on mild range BP and + UP:C, asymptomatic and normotensive with epidural in place. Recently checked by DAMASO Dixon and was 7cm and AROM for clear fluid. Currently feeling some intermittent rectal pressure. Cat 1 FHT. Will reassess in 1-2 hours, sooner as clinically indicated. Discussed that if severe features develop would warrant PP magnesium. Xiao Santos MD Department of Maternal Medicine * Siria Dixon CNM - 08/09/2017 0811 EST S/ Pt comfortable with epidural but feeling pelvic pressure with UCs. O/Blood pressure 123/62, temperature 36.9 ??C (98.4 ??F), temperature source Tympanic, resp. rate 20, last menstrual period 11/09/2016. UCs q 2 1/2 - 3 min FHTs 140s with accel to 150-155 no decels moderate variability VE 7 cm/ 90%/-1 AROM Clear blood tinged fluid + bloody show A/ IUP 39 w Active labor Cat 1 FHT H/O anxiety H/O PEC P/ Anticipate shortly Dr. Santos given report and transfer of care to MD service per pt request * Justina Deshpande, RN - 08/09/2017 0730 EST Report rec'd from Apolinar Metz RN, will continue with plan of care. Pt resting in bed on her right side, comfortable with her epidural in place. Pt has her SO and her mother at the bedside for support. Pt here in spontaneous labor, CEFM in place and now feeling rectal pressure with contractions. I+O cath performed and pt turned to her left side. Pt denies any questions or complaints at this time, will continue with plan of care. 0800 DAMASO Dixon and RN to the bedside, SVE change to 7cm, AROM. Fluid appears clear, but copiousamounts of bloody show noted. Pt aware call to RN with any changes, using PCEA button as needed, will continue with plan of care. 0900 Pt turned to her right side, feels as though she is involuntarily bearing down now with some of the contractions. Dr Swan to the bedside for SVE, 8 cm. Anesthesia called to the bedside for bolus 0924 Anesthesia to the bedside, epidural bolus given. FSE placed 0935 new bag LR infusing with pressure bag Amnioinfusion started at 600 cc /hour, increased to 999 for the 600ml volume per Dr Santos. 0941 Rhodes cath placed. 0952 Decision made to proceed to C/S after no response to amnioinfusion. 0954 To OR 1 * Joseph Borrero MD - 08/09/2017 0456 EST Brief Update Note Pt arrived to L&D, crying, moaning, asking for epidural, stating she cannot take it anymore Seen earlier tonight for labor check, /-1 at that time Myself and DAMASO Dixon to bedside SVE: 5/90/-1, cephalic Notified Anesthesia of pt request for consent and epidural as well as latex allergy Admission at this time See full H&P for further details Joseph Borrero MD Family Medicine: PGY 2 Pager #[phone] 08/09/2017 4:58 * Razia Metz, RN - 08/09/2017 0441 EST 0430 - PT admitted to room 6. Pt reports onset of stronger trx at 0330, now every 2-4 minutes. Endorses small amt of vaginal bleeding. Denies LOF. Positive FM. PT voided, changed into gown and EFM applied. FHR 160 w/moderate variability, no accels or decels, uterus palpates soft between ctrx. Pt crying, stating I can't do it anymore! I want an epidural! Pt arrived in WC accompanied by FOB Suzanne. 4:44 DAMASO Dixon and MD Laine Borrero at bedside. Pt going to bathroom. 5:13 failed IV attempted; second RN requested as pt becoming more active; MD Blackman w/anesthesiology at bedside for consult. 0520 - IV placed, labs collected and LR bolus infusing. 6:02 test dose neg. 0610 - to left side. 0635 - to right side. Reviewed clear liquid diet and bed rest while on the epidural. Pt and family verbalized understanding. 0700 - pt rating ctx pain 4/10 and endorsing rectal pressure. documented in this encounter H&P Notes * Siria Dixon CNM - 08/09/2017 0514 EST Department of Obstetrics History & Physical Admit Date: 08/09/2017 Chief Complaint Patient presents with ??? Contractions Admission indication: Term labor/ROM Maternal transport/Outside delivery: No HPI: Oral Reno is a 27 y.o. at 39w0d by LMP and early U/S presents with UCs [id number] yesterday seen on L&D for Labor eval from [id number] with no change in cervical dilation. Membranes were swept and pt sent home with call back at 0440 with a return in UCs q 2-4 min and +bloody show. Oral was seen 08/06 for headache and BP was mild range elevated. P:C ration 0.6 with nor mal PEC lab work. Oral was doing a 24 urine for protein which she was unable to complete due tolabor. CNM ACC Patient Transfer in at 18 weeks from [facility] Hx preeclampsia IOL at 37 weeks BMI 35 Hx kidney stones. ?? Dating: [??12/27/16 6w6d agrees with LMP of 11/09/16 ] ?? PN labs: Blood type O POS ??GBS neg Lab Results Component Value Date ?? HGB 11.4 (L) 02/22/2017 ?? HCT 32.1 (L) 02/22/2017 ?? PLT 226 02/22/2017 ?? LABANTI Neg 07/20/2014 ?? HIVAB Negative 12/31/2016 ?? VARICELLAIGG Interpretation: Positive 07/20/2014 ?? RUBELLAIGG Positive 07/20/2014 ?? HEPBSAG Negative 12/31/2016 ?? SYPH Interpretation: Nonreactive 07/20/2014 ?? CHRES ?? 01/24/2016 ? No Chlamydia trachomatis DNA detected by park superintendent mediated amplification. ?? GCRES ?? 01/24/2016 ? No Neisseria gonorrhoeae DNA detected by park superintendent mediated amplification. ?? CULTRESULT ?? 03/05/2017 ? 10,000 to 100,000 CFU/ml Usual urogenital cristine. hgb A1c; 4.7 PIH baseline labs [ WNL see [facility] records. ] 24 hour urine baseline [ not done ] Pap: 07/2016 negative Aneuploidy screening: [??integrated negative?? ] CF:??[? ]? Daily low dose ASA [ started??]? Flu vaccine (): [?06/04/17 ] Anatomy scan: [ WNL male? ]? OGTT/CBC: [?GTT 108, H/H/Plt 10.6/31.8/230, --> start iron] Switched to ferrous sulfate at 29w for GI upset Hgb at 33w [ 9.3/27.0 ] Repeat 07/23-07/30 [ 07/23/17 10.4 --> Iron BID] Tdap (after 28 wks): [??06/04/17 ?? ] HSV [negative] GBS:??[??NEG?? ] ?(Allergies?) VPMS Query [ Done 07/22/17 ] Informed consent for opioids signed [ 07/23/17 ] Contraception plans/Tubal[??POP?? ]? Review of Systems: 10 point system review: mild nausea, + bloody show; frequent urination; contractions since 08/08 Current Complications: Does patient have any current complications?: Yes Hypertension: Other (comment) (mild range, elevated P:C with normal labs otherwise) Hematologic disorders: None Neurologic disease: Migraines Psychiatric disease: Anxiety Assisted reproduction this : None Prior admission for PTL (this ): No Preeclampsia prevention: Aspirin Patient involved in a clinical trial?: No Prior : None growth abnormality: None Multiple gestation: No, Lundy Second or third trimester bleeding: None Abnormal placentation/cord: None Testing: Genetic screeninst & 2nd Tri - integrated/sequential Genetic screening abnormalities: None Maternal/ imaging: First trimester US;Routine US Congenital anomalies: None Dx requiring follow-up: None procedures: None Medication Exposure: No Data Recorded Ultrasound Date GA EFW LEOPOLDO Anatomy Dopplers 05/21/17 27w4d 1198g, 44%ile, LEOPOLDO 16.8 breech 06/18/17 31w4d ??1,940 g 51% LEOPOLDO 11.3 cephalic 07/16/17 35w4d 2,904 g 69% LEOPOLDO 13.8, cephalic FOB History: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 118/78(2017 16:01 EDT) No Rina Agosto MD Weight Loss General Yes Rina Agosto MD Note: Goal = 145lbs documented as of this encounter Procedures Procedure Name Priority Date/Time Associated Diagnosis Comments ECG REPORT - SCANNED 08/18/2017 11:32 EST ECG REPORT - SCANNED 08/14/2017 14:07 EST NEBULIZER TX INTERMITTENT Routine 08/13/2017 0:05 EST NEBULIZER TX INTERMITTENT Routine 08/13/2017 0:05 EST EKG 12-LEAD STAT 08/12/2017 20:38 EST PORTABLE CHEST 1 VIEW STAT 08/12/2017 20:28 EST FIBRINOGEN STAT 08/12/2017 20:01 EST COMPLETE BLOOD COUNT AND DIFFERENTIAL STAT 08/12/2017 20:01 EST ALT STAT 08/12/2017 20:01 EST AST STAT 08/12/2017 20:01 EST LDH STAT 08/12/2017 20:01 EST CREATININE STAT 08/12/2017 20:01 EST NEBULIZER TX INTERMITTENT Routine 08/11/2017 4:51 EST COMPLETE BLOOD COUNT Routine 08/10/2017 6:42 EST BLOOD GASES, CORD VENOUS STAT 08/09/2017 9:48 EST BLOOD GASES, CORD ARTERIAL STAT 08/09/2017 9:48 EST HOLD SST Routine 08/09/2017 5:15 EST HOLD BLUE TOP Routine 08/09/2017 5:15 EST COMPLETE BLOOD COUNT STAT 08/09/2017 5:15 EST TYPE AND SCREEN STAT 08/09/2017 5:15 EST documented in this encounter Results * ECG REPORT - SCANNED (08/18/2017 11:32 EST) 08/18/2017 11:3 2 EST Scan 2 Tobacco Stripper PROCEDURE/MINOR JANUARY GICAL ORDERABLES * ECG REPORT - SCANNED (08/14/2017 14:07 EST) 08/14/2017 14:0 7 EST Scan 2 Tobacco Stripper PROCEDURE/MINOR JANUARY GICAL ORDERABLES * EKG 12-LEAD (08/12/2017 20:38 EST) 08/12/2017 20:3 8 EST Narrative [facility] - 08/14/2017 14:01 EST ? [facility] ? Test Date: ?2017-08-12 Pat Name: ? ORAL RENO ?Department: ?? [place] maternity ? Room: ? B7M89 Gender: ? F ?Cmm Inspector: ?? [id number] : ?1990 ? Requested By: LV MARY ANNEBirdie RUBALCAVA Order Number: [id number] ? Macarena FRY: ?? LUIZ CORRALES MD ? Measurements Intervals ?[place] ? Rate: ? 111 ?P: ?41 IL: ? 150 ?QRS: ?28 QRSD: ? 93 ? T: ?17 QT: ? 301 ? QTc: ?409 ? Interpretive Statements SINUS TACHYCARDIA Compared to ECG 07/09/2016 09:59:46 The heart rate has increased Edited by LISA HAYES MD on 08-13-17 14:47:54 EST. I reviewed the tracing and have either agreed or edited the findings in this report. Electronically Signed On 08-14-17 14:01:33 EST by LUIZ CORRALES MD. Procedure Note Luiz Corrales MD - 08/14/2017 [facility] Test Date: 2017-08-12 Pat Name: ORAL RENO Department: [place] [address] maternity Room: [facility] Gender: F Cmm Inspector: [id number] : 1990 Requested By: LV MALONEY Order Number: [id number] Macarena MD: LUIZ CORRALES MD Measurements Intervals [place] Rate: 111 P: 41 IL: 150 QRS: 28 QRSD: 93 T: 17 QT: 301 QTc: 409 Interpretive Statements SINUS TACHYCARDIA Compared to ECG 07/09/2016 09:59:46 The heart rate has increased Edited by LISA HAYES MD on 08-13-17 14:47:54 EST. I reviewed the tracing and have either agreed or edited the findings inthis report. Electronically Signed On 08-14-17 14:01:33 EST by LUIZ CAMARGO. Mary Anne Awan MD CARDIAC ECG OR DERABLES [facility] EKG * PORTABLE CHEST 1 VIEW (08/12/2017 20:28 EST) Anatomical Region Laterality Modality Other 08/12/2017 20:2 8 EST 08/12/2017 20:34 EST Narrative 08/12/2017 20:34 EST PORTABLE CHEST 1 VIEW ??08/12/2017 8:28 PM Clinical History/Comments: Chest Pain COMPARISON: None. FINDINGS: Single portable AP view of the chest. Lines/tubes: ??None Soft tissues and bones: No significant abnormalities. Cardiac and mediastinal contours: Normal. Lungs: Clear. Pleura: No visibile pleural abnormalities. Impression: Normal AP chest x-ray Procedure Note Geovani Pedroza MD - 08/12/2017 PORTABLE CHEST 1 VIEW 08/12/2017 8:28 PM Clinical History/Comments: Chest Pain COMPARISON: None. FINDINGS: Single portable AP view of the chest. Lines/tubes: None Soft tissues and bones: No significant abnormalities. Cardiac and mediastinal contours: Normal. Lungs: Clear. Pleura: No visibile pleural abnormalities. Impression: Normal AP chest x-ray Mary Anne Awan MD IMG DIAGNOSTIC IMAGING ORDERABLES * (ABNORMAL) FIBRINOGEN (08/12/2017 20:01 EST) Fibrinogen 570(H) 171 - 384 mg/dl 08/12/2017 20:26 EST [facility] Blood specimen (specimen) BLOOD SPECIMEN / Unknown 08/12/2017 20:01 EST 08/12/2017 20:05 EST Mary Anne Awan MD HEMATOLOGY & P F4 ORDERABLES [facility] [address] [place] [address] * LDH (08/12/2017 20:01 EST) LDH 489 313 - 618 U/L 08/12/2017 20:24 EST [facility] Blood specimen (specimen) BLOOD SPECIMEN / Unknown 08/12/2017 20:01 EST 08/12/2017 20:05 EST Mary Anne Awan MD CHEMISTRY & BL OOD GAS ORDERABLES [facility] [address] [place] [address] * CREATININE (08/12/2017 20:01 EST) Creatinine 0.60 0.52 - 1.04 mg/dl 08/12/2017 20:24 EST [facility] GFR, Calculated 125 >60 ml/min/1.7 3m2 08/12/2017 20:24 EST [facility] Comment: eGFR calculated using CKD-EPI equation for non Americans. Multiply eGFR by 1.16 for Americans. Blood specimen (specimen) BLOOD SPECIMEN / Unknown 08/12/2017 20:01 EST 08/12/2017 20:05 EST Mary Anne Awan MD CHEMISTRY & BL OOD GAS ORDERABLES Performing Organization Address City/[facility]/ZIP Co de Phone Number [facility] [address] [place] [address] * ALT (08/12/2017 20:01 EST) ALT 26 <53 U/L 08/12/2017 20:24 EST [facility] Blood specimen (specimen) BLOOD SPECIMEN / Unknown 08/12/2017 20:01 EST 08/12/2017 20:05 EST Mary Anne Awan MD CHEMISTRY & BL OOD GAS ORDERABLES Performing Organization Address City/[facility]/ZIP Co de Phone Number [facility] [address] [place] [address] * AST (08/12/2017 20:01 EST) AST 24 15 - 46 U/L 08/12/2017 20:24 EST [facility] Blood specimen (specimen) BLOOD SPECIMEN / Unknown 08/12/2017 20:01 EST 08/12/2017 20:05 EST Mary Anne Awan MD CHEMISTRY & BL OOD GAS ORDERABLES [facility] [address] [place] [address] * (ABNORMAL) HEMAGRAM AND DIFFERENTIAL (08/12/2017 20:01 EST) WBC 4.18 4.0 - 12.4 K/cmm 08/12/2017 20:15 [facility] RBC 3.23(L) 3.86 - 5.04 M/cmm 08/12/2017 20:15 [facility] Hemoglobin 8.3(L) 11.6 - 15.2 gm/dl 08/12/2017 20:15 [facility] HCT 24.9(L) 34.9 - 44.4 % 08/12/2017 20:15 [facility] MCV 77(L) 81 - 98 fl 08/12/2017 20:15 [facility] MCH 25.7(L) 26.7 - 33.3 pg 08/12/2017 20:15 [facility] Hypochromia 1+ 08/12/2017 20:15 [facility] MCHC 33.3 32.1 - 35.9 gm/dl 08/12/2017 20:15 [facility] RDW-CV 15.5(H) <14.7 % 08/12/2017 20:15 [facility] RDW-SD 43.3 <50.4 fl 08/12/2017 20:15 [facility] PLT 226 141 - 377 K/cmm 08/12/2017 20:15 [facility] MPV 10.3 9.5 - 12.7 fl 08/12/2017 20:15 [facility] % Neutrophils 68.9 % 08/12/2017 20:15 [facility] % Lymphocytes 15.8 % 08/12/2017 20:15 [facility] % Monocytes 9.8 % 08/12/2017 20:15 [facility] % Eosinophils 3.3 % 08/12/2017 20:15 [facility] % Basophils 0.5 % 08/12/2017 20:15 [facility] % Immature Grans 1.7 % 08/12/2017 20:15 [facility] ABS Neutrophils 2.88 2.20 - 8.85 K/cmm 08/12/2017 20:15 [facility] ABS Lymphs 0.66(L) 1.09 - 3.30 K/cmm 08/12/2017 20:15 [facility] ABS Monocytes 0.41 0.1 - 0.8 K/cmm 08/12/2017 20:15 [facility] ABS Eosinophils 0.14 0.03 - 0.61 K/cmm 08/12/2017 20:15 [facility] ABS Basophils 0.02 0.01 - 0.11 K/cmm 08/12/2017 20:15 [facility] ABS Immature Grans 0.07(H) 0 - 0.06 K/cmm 08/12/2017 20:15 [facility] Type of Diff: Automated 08/12/2017 20:15 [facility] Blood specimen (specimen) BLOOD SPECIMEN / Unknown 08/12/2017 20:01 EST 08/12/2017 20:05 EST Mary Anne Awan MD PACKAGES & DNA PROBE ORDERABLES Performing Organization Address City/State/[facility] Co de Phone Number [facility] [address] [place] [id number] * (ABNORMAL) HEMAGRAM (08/10/2017 6:42 EST) WBC 11.98 4.0 - 12.4 K/cmm 08/10/2017 7:34 [facility] RBC 3.40(L) 3.86 - 5.04 M/cmm 08/10/2017 7:34 [facility] Hemoglobin 8.5(L) 11.6 - 15.2 gm/dl 08/10/2017 7:34 [facility] HCT 26.4(L) 34.9 - 44.4 % 08/10/2017 7:34 [facility] MCV 78(L) 81 - 98 fl 08/10/2017 7:34 [facility] MCH 25.0(L) 26.7 - 33.3 pg 08/10/2017 7:34 [facility] Hypochromia 1+ 08/10/2017 7:34 [facility] MCHC 32.2 32.1 - 35.9 gm/dl 08/10/2017 7:34 [facility] RDW-CV 15.7(H) <14.7 % 08/10/2017 7:34 [facility] RDW-SD 43.6 <50.4 fl 08/10/2017 7:34 [facility] PLT 184 141 - 377 K/cmm 08/10/2017 7:34 [facility] MPV 11.7 9.5 - 12.7 fl 08/10/2017 7:34 [facility] Blood specimen (specimen) BLOOD SPECIMEN / Unknown 08/10/2017 6:42 EST 08/10/2017 7:09 EST Yris Pierson MD HEMATOLOGY & PF4 O RDERABLES [facility] [address] [place] [address] * (ABNORMAL) BLOOD GASES, CORD VENOUS (08/09/2017 9:48 EST) pH, Cord blood chris 7.19(L) 7.25 - 7.45 08/09/2017 10:41 [facility] PCO2, Cord blood 49 mmHg 08/09/2017 10:41 [facility] PO2, Cord bld chris 42(H) 17 - 41 mmHg 08/09/2017 10:41 [facility] tCO2, Cord blood 20 14 - 22 mEq/L 08/09/2017 10:41 [facility] Base Deficit 10.0 08/09/2017 10:41 [facility] BLOOD SPECIMEN / Unknown 08/09/2017 9:48 EST 08/09/2017 10:31 EST Natalia Swan MD GEN LAB UNIT [facility] T ORDERABLES Performing Organization Address [facility] Co de Phone Number [facility] [address] [place] [address] * (ABNORMAL) BLOOD GASES, CORD ARTERIAL (08/09/2017 9:48 EST) pH, Cord blood art 7.02(L) 7.18 - 7.38 08/09/2017 10:41 [facility] PCO2, Cord blood 81 mmHg 08/09/2017 10:41 [facility] PO2, Cord bld art 23 6 - 30 mmHg 08/09/2017 10:41 [facility] tCO2, Cord blood 23(H) 14 - 22 mEq/L 08/09/2017 10:41 [facility] Base Deficit 12.5 08/09/2017 10:41 [facility] Blood specimen (specimen) BLOOD SPECIMEN / Unknown 08/09/2017 9:48 EST 08/09/2017 10:31 EST Natalia Swan MD GEN LAB UNIT [facility] T ORDERABLES Performing Organization Address [facility] Co de Phone Number [facility] [address] [place] [address] * TYPE AND SCREEN (08/09/2017 5:15 EST) Antibody Screen Negative [facility] Specimen Expires: 08/12/2017 @ 23:59 [facility] Rh Factor Positive [facility] [place] [facility] Blood specimen (specimen) 08/09/2017 5:15 EST Joseph Borrero MD BLOOD BANK TESTS Performing Organization Address City/[facility]/ZIP Co de Phone Number [facility] * HOLD SST (08/09/2017 5:15 EST) Hold SST Hold for further testing. Specimen will be held for 5 days. 08/09/2017 5:17 [facility] Blood specimen (specimen) BLOOD SPECIMEN / Unknown 08/09/2017 5:15 EST 08/09/2017 5:30 EST Joseph Borrero MD LAB INFO SERVICE AND SUPPORT & PHONE RESULT Performing Organization Address [facility] Co de Phone Number [facility] [address] [place] [address] * HOLD BLUE TOP (08/09/2017 5:15 EST) Hold Blue Top Sample for coagulation will be discarded after 4 hours 08/09/2017 5:41 [facility] Blood specimen (specimen) BLOOD SPECIMEN / Unknown 08/09/2017 5:15 EST 08/09/2017 5:30 EST Joseph Borrero MD LAB INFO SERVICE AND SUPPORT & PHONE RESULT Performing Organization Address [facility]/[place] de Phone Number [facility] [address] [place] [address] * (ABNORMAL) HEMAGRAM (08/09/2017 5:15 EST) WBC 13.96(H) 4.0 - 12.4 K/cmm 08/09/2017 5:40 [facility] RBC 4.12 3.86 - 5.04 M/cmm 08/09/2017 5:40 [facility] Hemoglobin 11.5(L) 11.6 - 15.2 gm/dl 08/09/2017 5:40 [facility] HCT 31.4(L) 34.9 - 44.4 % 08/09/2017 5:40 [facility] MCV 76(L) 81 - 98 fl 08/09/2017 5:40 [facility] MCH 27.9 26.7 - 33.3 pg 08/09/2017 5:40 [facility] MCHC 36.6(H) 32.1 - 35.9 gm/dl 08/09/2017 5:40 EST [facility] RDW-CV 15.1(H) <14.7 % 08/09/2017 5:40 EST [facility] RDW-SD 41.3 <50.4 fl 08/09/2017 5:40 EST [facility] PLT 231 141 - 377 K/cmm 08/09/2017 5:40 EST [facility] MPV 12.3 9.5 - 12.7 fl 08/09/2017 5:40 EST [facility] Blood specimen (specimen) BLOOD SPECIMEN / Unknown 08/09/2017 5:15 EST 08/09/2017 5:30 EST Harry Blackman MD HEMATOLOGY & PF4 ORD ERABLES [facility] [address] [place] [address] documented in this encounter Visit Diagnoses Diagnosis Supervision of high-risk - Primary Unspecified high-risk Supervision of high risk in third trimester Unspecified high-risk S/P section Other postprocedural status Preeclampsia, unspecified trimester Adjustment reaction with anxious mood Adjustment disorder with anxiety documented in this encounter Administered Medications Inactive Administered Medications - up to 3 most recent administrations Medication Order MAR Action Action Date Dose Rate Site acetaminophen (TYLENOL) tablet 1,000 mg 1,000 mg, oral, EVERY 6 HOURS PRN, 2 doses, Starting on 08/09/17 at 1132, Until 08/09/17 at 1406, Pain, Routine, Recovery (only) Given 08/09/2017 12:18 EST 1,000 mg acetaminophen (TYLENOL) tablet 650 mg 650 mg, oral, EVERY 4 HOURS, 12 doses, First dose (after last modification) on 08/09/17 at 1800, Last dose on Fri08/11/17 at 1400, Routine, On Unit Given 08/11/2017 13:36 EST 650 mg Given 08/11/2017 9:30 EST 650 mg Given 08/11/2017 5:16 EST 650 mg acetaminophen (TYLENOL) tablet 650 mg 650 mg, oral, EVERY 4 HOURS PRN, Starting on Fri08/11/17 at 1800, Until Fri08/13/17 at 1603, Pain, Routine, On Unit Given 08/13/2017 11:29 EST 650 mg Given 08/13/2017 6:49 EST 650 mg Given 08/13/2017 2:57 EST 650 mg albuterol (ACCUNEB) nebulizer solution 2.5 mg 2.5 mg, nebulization, EVERY 6 HOURS PRN, Starting on Fri08/11/17 at 0450, Until Fri08/13/17 at 1603, Wheezing, Routine Given 08/12/2017 18:59 EST 2.5 mg Given 08/12/2017 12:53 EST 2.5 mg Given 08/12/2017 9:03 EST 2.5 mg albuterol inhaler 1 Puff 1 Puff, inhalation, EVERY 4 HOURS PRN, Starting on Fri08/09/17 at 1319, Until Fri08/13/17 at 1603, Wheezing, Routine Given 08/12/2017 22:18 EST 2 Puffs Given 08/11/2017 18:18 EST 2 Puffs Given 08/11/2017 3:30 EST 1 Puff azithromycin (ZITHROMAX) 500 mg in sodium chloride (NS) 0.9 % 250 mL IVPB 500 mg, intravenous, Administer over 60 Minutes, NOW X1, 1 dose, On Fri08/09/17 at 1000, STAT Given by Other 08/09/2017 10:20 EST 500 mg azithromycin (ZITHROMAX) tablet 250 mg 250 mg, oral, DAILY, 4 doses, First dose (after last modification) on Fri08/13/17 at 2100, Last dose on Fri08/16/17 at 2100, Routine azithromycin (ZITHROMAX) tablet 500 mg 500 mg, oral, DAILY, 1 dose, First dose (after last modification) on Fri08/12/17 at 2300, STAT Given 08/12/2017 23:40 EST 500 mg benzonatate (TESSALON) capsule 100 mg 100 mg, oral, 3 TIMES DAILY PRN, Starting on Fri08/12/17 at 2237, Until Fri08/13/17 at 1603, Cough, Routine Given 08/12/2017 23:40 EST 100 mg bupivacaine-fentanyl in NS 0.0625 %-2 mcg/mL 250 mL (Latex Free) epidural epidural, CONTINUOUS, Starting on Fri08/09/17 at 0600, Until 12/30/17 at 1406, PCEA Dose: 8 mL LOCKOUT Interval: 10 minutes ONE HOUR Dose Limit: 36 mL BASAL Rate: 10 mL/hr, STAT, Recovery (only) New Bag 08/09/2017 6:10 EST ceFAZolin (ANCEF) syringe 2 g 2 g, intravenous, Administer over 10 Minutes, PRE-OP ONCE, 1 dose, On 08/09/17 at 1000, Routine Given by Other 08/09/2017 10:10 EST 2 g ceFAZolin (ANCEF) syringe 1 dose, Starting on 08/09/17 at 0934, Until 08/09/17 at 1020 cellulose, oxidized 2 x 14 (SURGICEL) 2 X 14 pad pad 1 dose, Starting on 08/09/17 at 1042, Until 08/09/17 at 1115 Given by Other 08/09/2017 11:15 EST dextromethorphan-guaifenesin (ROBITUSSIN DM) 10-100 mg/5 mL syrup 5 mL 5 mL, oral, EVERY 4 HOURS PRN, Starting on Fri08/11/17 at 2012, Until Fri08/13/17 at 1603, Cough, Routine Given 08/13/2017 3:35 EST 5 mL Given 08/12/2017 18:45 EST 5 mL Given 08/12/2017 14:17 EST 5 mL dextrose 5 % and 0.45 % NaCl with KCl 20 mEq/L infusion at 100 mL/hr, intravenous, CONTINUOUS, Starting on 08/09/17 at 1530, Until 08/13/17 at 1603, Routine, On Unit Rate Documented 08/10/2017 3:32 EST 100 m L/hr New Bag 08/10/2017 1:37 EST 100 mL/hr New Bag 08/09/2017 16:03 EST 100 mL/hr docusate sodium (COLACE) capsule 100 mg 100 mg, oral, 2 TIMES DAILY, First dose on 08/09/17 at 2100, Until Discontinued, Routine, On Unit Given 08/13/2017 11:29 EST 100 mg Given 08/12/2017 22:45 EST 100 mg Given 08/12/2017 10:13 EST 100 mg fentaNYL citrate (PF) 50 mcg/mL injection 25-50 mcg 25-50 mcg, intravenous, EVERY 5 MIN PRN, Starting on 08/09/17 at 1132, Until 08/09/17 at 1406, Pain, Routine, Recovery (only) Given 08/09/2017 11:56 EST 50 mcg Given 08/09/2017 11:51 EST 50 mcg HYDROmorphone (DILAUDID) tablet 2-4 mg 2-4 mg, oral, EVERY 4 HOURS PRN, Starting on 08/09/17 at 1443, Until 08/13/17 at 1603, Pain, Routine Given 08/13/2017 11:29 EST 4 mg Given 08/13/2017 6:49 EST 4 mg Given 08/13/2017 2:58 EST 2 mg HYDROmorphone (DILAUDID) tablet 2-4 mg 2-4 mg, oral, EVERY 4 HOURS PRN, Starting on 08/09/17 at 1153, Until 08/09/17 at 1455, Pain, Routine Given 08/09/2017 12:22 EST 4 mg HYDROmorphone injection (DILAUDID) 0.5 mg/1 mL syringe 0.2 mg 0.2 mg, intravenous, EVERY 4 HOURS PRN, Starting on 08/09/17 at 1154, Until 08/09/17 at 1524, Pain, Routine Given 08/09/2017 13:32 EST 0.2 mg HYDROmorphone injection (DILAUDID) 0.5 mg/1 mL syringe 0.4 mg 0.4 mg, intravenous, EVERY 4 HOURS PRN, Starting on 08/09/17 at 1524, Until 08/13/17 at 1603, Pain, Routine HYDROmorphone injection (DILAUDID) 0.5 mg/1 mL syringe 0.4 mg 0.4 mg, intravenous, NOW X1, 1 dose, On 08/09/17 at 1545, Routine Given 08/09/2017 15:50 EST 0.4 mg ibuprofen (MOTRIN) tablet 400 mg 400 mg, oral, EVERY 4 HOURS PRN, Starting on 08/10/17 at 1215, Until 08/13/17 at 1603, Pain, Routine Given 08/13/2017 11:29 EST 400 mg Given 08/13/2017 6:49 EST 400 mg Given 08/13/2017 2:58 EST 400 mg ipratropium-albuterol (DUONEB) 0.5 mg-3 mg(2.5 mg base)/3 mL nebulizer solution 3 mL 3 mL, nebulization, 4 TIMES DAILY, First dose (after last modification) on Tu08/12/17 at 2315, Until Discontinued, Routine Given 08/13/2017 12:30 EST 3 mL Given 08/13/2017 8:15 EST 3 mL ketOROLAC (TORADOL) injection 30 mg 30 mg, intravenous, EVERY 6 HOURS, 4 doses, First dose on 08/09/17 at 1215, Last dose on 08/10/17 at 0615, Routine Given 08/10/2017 5:26 EST 30 mg Given 08/09/2017 23:42 EST 30 mg Given 08/09/2017 18:06 EST 30 mg lactated ringers (LR) infusion 75 mL/hr, intravenous, CONTINUOUS, Starting on 08/09/17 at 1215, Until Fri08/13/17 at 1603, Routine, On Unit New Bag 08/09/2017 12:47 EST 75 mL/hr 75 mL/hr lactated ringers (LR) infusion 75 mL/hr, intravenous, CONTINUOUS, Starting on 08/09/17 at 1245, Until Fri08/13/17 at 1603, Routine, On Unit lactated ringers BOLUS 1,000 mL 1,000 mL, intravenous, NOW X1, 1 dose, On 08/09/17 at 0600, Routine, Recovery (only) Given 08/09/2017 5:20 EST 1,000 mL lansinoh HPA lanolin topical, PRN, Starting on 08/09/17 at 1506, Until Fri08/13/17 at 1603, Other, On Unit Given 08/09/2017 19:11 EST 14 g multivitamin vit-iron fumarate-FA (STUARTNATAL) 27 mg iron- 1 mg tablet 1 Tab 1 Tablet, oral, DAILY, First dose on 08/09/17 at 1530, Until Discontinued, Routine, On Unit Given 08/12/2017 10:13 EST 1 Tablet ondansetron (PF) (ZOFRAN) injection 4 mg 4 mg, intravenous, EVERY 6 HOURS PRN, Starting on 08/09/17 at 1506, Until Fri08/13/17 at 1603, Nausea, Routine, On Unit ondansetron (ZOFRAN-ODT) disintegrating tablet 4 mg 4 mg, oral, EVERY 6 HOURS PRN, Starting on 08/09/17 at 1506, Until 08/13/17 at 1603, Nausea, Routine, On Unit oxytocin in lactated ringers 30 units/500 ml 200 mL/hr, intravenous, Once (Without Time Specified), 1 dose, Starting on 08/09/17 at 0500, Until 08/09/17 at 1015, Routine Given by Other 08/09/2017 10:15 EST 12 Units/hr 200 mL/hr oxytocin in lactated ringers 30 units/500 ml 135 mL/hr, intravenous, Once (Without Time Specified), 1 dose, Starting on 08/09/17 at 0500, Until 08/09/17 at 1145, Routine Given by Other 08/09/2017 11:45 EST 8.1 Units/hr 135 mL/hr oxytocin in lactated ringers 30 units/500 ml 50 mL/hr, intravenous, CONTINUOUS, Starting on 08/09/17 at 1215, Until 08/13/17 at 1603, Routine, On Unit oxytocin in lactated ringers 30 units/500 ml 50 mL/hr, intravenous, CONTINUOUS, Starting on 08/09/17 at 1245, Until 08/13/17 at 1603, Routine, On Unit New Bag 08/09/2017 13:39 EST 50 mL/hr 50 mL/hr New Bag 08/09/2017 12:42 EST 50 mL/hr 50 mL/hr sertraline (ZOLOFT) tablet 25 mg 25 mg, oral, DAILY, First dose on 08/10/17 at 1945, Until Discontinued, Routine Given 08/13/2017 11:29 EST 25 mg Given 08/12/2017 10:12 EST 25 mg Given 08/11/2017 9:30 EST 25 mg sodium citrate-citric acid (BICITRA) 500-334 mg/5 mL solution 30 mL 30 mL, oral, Once (Without Time Specified), 1 dose, Starting on 08/09/17 at 0930, Until 08/09/17 at 1004, Routine Given 08/09/2017 10:04 EST 30 mL sodium citrate-citric acid (BICITRA) 500-334 mg/5 mL solution 1 dose, Starting on 08/09/17 at 0934, Until 08/09/17 at 1004 documented in this encounter Discontinued Medications Medication Sig Discontinue Reason Start Date End Da te aspirin chewable 81 mg tablet Take 81 mg by mouth daily. 08/13/2017 DIPHENHYDRAMINE HCL (BENADRYL ORAL) Take by mouth as needed. 08/13/2017 acetaminophen (TYLENOL) 500 mg tablet Take 2 Tabs by mouth every 6 hours as needed for Pain. 06/21/2017 08/13/2017 guaiFENesin (ROBITUSSIN) 100 mg/5 mL liquid Take 200 mg by mouth every 6 hours as needed. 08/13/2017 documented as of this encounter Active and Recently Administered Medications Times are shown in EST. Scheduled Medication Order 08/11/2017 08/12/2017 08/13/2017 acetaminophen (TYLENOL) tablet 650 mg ()(Linked Group 1) 650 mg, oral, EVERY 4 HOURS, 12 doses, First dose (after last modification) on 08/09/17 at 1800, Last dose on Fri08/11/17 at 1400, Routine, On Unit 0142 (Given - Provider: Kyleigh Greene RN)0516 (Given - Provider: Kyleigh Greene RN)0930 (Given - Provider: Sobia Shannon, STACEY)1336 (Given - Provider: Sobia Shannon RN) azithromycin (ZITHROMAX) tablet 250 mg(Linked Group 2) 250 mg, oral, DAILY, 4 doses, First dose (after last modification) on Fri08/13/17 at 2100, Last dose on Fri08/16/17 at 2100, Routine azithromycin (ZITHROMAX) tablet 500 mg (COMPLETED)(Linked Group 2) 500 mg, oral, DAILY, 1 dose, First dose (after last modification) on Fri08/12/17 at 2300, STAT 2340 (Given - Provider: Misa Lou, STACEY) docusate sodium (COLACE) capsule 100 mg 100 mg, oral, 2 TIMES DAILY, First dose on 08/09/17 at 2100, Until Discontinued, Routine, On Unit 0930 (Given - Provider: Sobia Shannon RN)2215 (Given - Provider: Oneil Courtney RN) 1013 (Given - Provider: Jaleesa Mcallister RN)2245 (Given - Provider: Alpa Cody RN) 1129 (Given - Provider: Gabrielle Loyola, RN) HYDROmorphone (DILAUDID) tablet 4 mg 4 mg, oral, NOW X1, 1 dose, On Fri08/12/17 at 2045, Routine 2143 (Not Given - Provider: Alpa Cody RN - Reason: Patient/family refused) ipratropium-albutero l (DUONEB) 0.5 mg-3 mg(2.5 mg base)/3 mL nebulizer solution 3 mL 3 mL, nebulization, 4 TIMES DAILY, First dose (after last modification) on Fri08/12/17 at 2315, Until Discontinued, Routine 2315 (Canceled Entry - Provider: Batch Job User Admin - Comment: Automatically canceled at discontinue of medication order) 0815 (Given - Provider: RT Meng)1230 (Given - Provider: Jovan Au RT) multivitamin vit-iron fumarate-FA (STUARTNATAL) 27 mg iron- 1 mg tablet 1 Tab 1 Tablet, oral, DAILY, First dose on 08/09/17 at 1530, Until Discontinued, Routine, On Unit 0900 (Canceled Entry - Provider: Batch Job User Admin - Comment: Automatically canceled at discontinue of medication order) 1013 (Given - Provider: Jaleesa Mcallister, STACEY) 1131 (Not Given - Provider: Gabrielle Loyola, STACEY - Reason: Patient/family refused) sertraline (ZOLOFT) tablet 25 mg 25 mg, oral, DAILY, First dose on 08/10/17 at 1945, Until Discontinued, Routine 0010 (Not Given - Provider: Kyleigh Greene RN - Reason: Patient/family refused)0930 (Given - Provider: Sobia Shannon, STACEY) 1012 (Given - Provider: Jaleesa Mcallister, STACEY) 1129 (Given - Provider: Gabrielle Loyola, STACEY) Continuous Medication Order 08/11/2017 08/12/2017 08/13/2017 dextrose 5 % and 0.45 % NaCl with KCl 20 mEq/L infusion at 100 mL/hr, intravenous, CONTINUOUS, Starting on 08/09/17 at 1530, Until Fri08/13/17 at 1603, Routine, On Unit lactated ringers (LR) infusion(Linked Group 3) 75 mL/hr, intravenous, CONTINUOUS, Starting on 08/09/17 at 1215, Until Fri08/13/17 at 1603, Routine, On Unit lactated ringers (LR) infusion(Linked Group 4) 75 mL/hr, intravenous, CONTINUOUS, Starting on 08/09/17 at 1245, Until Fri08/13/17 at 1603, Routine, On Unit oxytocin in lactated ringers 30 units/500 ml(Linked Group 3) 50 mL/hr, intravenous, CONTINUOUS, Starting on 08/09/17 at 1215, Until Fri08/13/17 at 1603, Routine, On Unit oxytocin in lactated ringers 30 units/500 ml(Linked Group 4) 50 mL/hr, intravenous, CONTINUOUS, Starting on 08/09/17 at 1245, Until Fri08/13/17 at 1603, Routine, On Unit PRN Medication Order 08/11/2017 08/12/2017 08/13/2017 acetaminophen (TYLENOL) tablet 650 mg(Linked Group 1) 650 mg, oral, EVERY 4 HOURS PRN, Starting on Fri08/11/17 at 1800, Until Fri08/13/17 at 1603, Pain, Routine, On Unit 1817 (Given - Provider: Alpa Cody RN)2214 (Given - Provider: Oneil Courtney RN) 0213 (Given - Provider: Oneil Courtney RN)0617 (Given - Provider: Oneil Courtney RN)1012 (Given - Provider: Jaleesa Mcallister RN)1417 (Given - Provider: Jaleesa Mcallister RN)1844 (Given - Provider: Alpa Cody RN)2244 (Given - Provider: Alpa Cody RN) 0257 (Given - Provider: Misa Lou, STACEY)0649 (Given - Provider: Misa Lou RN)1129 (Given - Provider: Gabrielle Loyola, STACEY) albuterol (ACCUNEB) nebulizer solution 2.5 mg 2.5 mg, nebulization, EVERY 6 HOURS PRN, Starting on 08/11/17 at 0450, Until Fri08/13/17 at 1603, Wheezing, Routine 0624 (Given - Provider: Vilma Zaira, RT)1833 (Given - Provider: Socorro Morejon RT) 0903 (Given - Provider: Valentine Olivarez II, RT)1253 (Given - Provider: Micky Thakkar, RT)1859 (Given - Provider: Micky Thakkar, RT) albuterol inhaler 1 Puff 1 Puff, inhalation, EVERY 4 HOURS PRN, Starting on 08/09/17 at 1319, Until Fri08/13/17 at 1603, Wheezing, Routine 0330 (Given - Provider: Kyleigh Greene, RN)1818 (Given - Provider: Alpa Cody, RN) 2218 (Given - Provider: Lucretia Decker, RN) benzonatate (TESSALON) capsule 100 mg 100 mg, oral, 3 TIMES DAILY PRN, Starting on Tu08/12/17 at 2237, Until Fri08/13/17 at 1603, Cough, Routine 2340 (Given - Provider: Misa Lou RN) calcium carbonate (TUMS) 200 mg calcium (500 mg) per chewable tablet tablet,chewable 2 Tab 2 Tablet, oral, EVERY 2 HOURS PRN, Starting on 08/09/17 at 1506, Until Fri08/13/17 at 1603, Heartburn, Indigestion, Routine, On Unit dextromethorphan-guaifene sin (ROBITUSSIN DM) 10-100 mg/5 mL syrup 5 mL 5 mL, oral, EVERY 4 HOURS PRN, Starting on Fri08/11/17 at 2012, Until Fri08/13/17 at 1603, Cough, Routine 2212 (Given - Provider: Oneil Courtney, STACEY) 1417 (Given - Provider: Jaleesa Mcallister, STACEY)1845 (Given - Provider: Alpa Cody, STACEY) 0335 (Given - Provider: Lucretia Decker, STACEY) HYDROmorphone (DILAUDID) tablet 2-4 mg 2-4 mg, oral, EVERY 4 HOURS PRN, Starting on 08/09/17 at 1443, Until Fri08/13/17 at 1603, Pain, Routine 0142 (Given - Provider: Kyleigh Greene, STACEY)0517 (Given - Provider: Kyleigh Greene, STACEY)0930 (Given - Provider: Sobia Shannon RN)1336 (Given - Provider: Sobia Shannon RN)1817 (Given - Provider: Alpa Cody RN)2215 (Given - Provider: Oneil Courtney RN) 0213 (Given - Provider: Oneil Courtney RN)0617 (Given - Provider: Oneil Courtney RN)1012 (Given - Provider: Jaleesa Mcallister RN)1417 (Given - Provider: Jaleesa Mcallister RN)184 (Given - Provider: Alpa Cody RN)2244 (Given - Provider: Alpa Cody RN) 0258 (Given - Provider: Misa Lou, RN)0649 (Given - Provider: Misa Lou RN)1129 (Given - Provider: Gabrielle Loyola RN) HYDROmorphone injection (DILAUDID) 0.5 mg/1 mL syringe 0.4 mg 0.4 mg, intravenous, EVERY 4 HOURS PRN, Starting on 08/09/17 at 1524, Until 08/13/17 at 1603, Pain, Routine ibuprofen (MOTRIN) tablet 400 mg 400 mg, oral, EVERY 4 HOURS PRN, Starting on 08/10/17 at 1215, Until 08/13/17 at 1603, Pain, Routine 0142 (Given - Provider: Kyliegh Greene RN)0516 (Given - Provider: Kyleigh Greene, STACEY)0517 (Not Given - Provider: Kyleigh Greene RN - Reason: Other - Comment: duplicate documentation)0930 (Given - Provider: Sobia Shannon RN)1336 (Given - Provider: Sobia Shannon RN)1817 (Given - Provider: Alpa Cody RN)2214 (Given - Provider: Oneil Courtney RN) 0213 (Given - Provider: Oneil Courtney RN)0617 (Given - Provider: Oneil Courtney RN)1012 (Given - Provider: Jaleesa Mcallister, STACEY)1417 (Given - Provider: Jaleesa Mcallister RN)184 (Given - Provider: Alpa Cody RN)2244 (Given - Provider: Alpa Cody RN) 0258 (Given - Provider: Misa Lou, RN)0664 (Given - Provider: Misa Lou, STACEY)1129 (Given - Provider: Gabrielle Loyola, STACEY) lansinoh HPA lanolin topical, PRN, Starting on 08/09/17 at 1506, Until Fri08/13/17 at 1603, Other, On Unit ondansetron (PF) (ZOFRAN) injection 4 mg(Linked Group 5) 4 mg, intravenous, EVERY 6 HOURS PRN, Starting on 08/09/17 at 1506, Until Fri08/13/17 at 1603, Nausea, Routine, On Unit ondansetron (ZOFRAN-ODT) disintegrating tablet 4 mg(Linked Group 5) 4 mg, oral, EVERY 6 HOURS PRN, Starting on 08/09/17 at 1506, Until Fri08/13/17 at 1603, Nausea, Routine, On Unit Linked Groups Order Group 1: acetaminophen (TYLENOL) tablet 650 mg ()Jump to med 650 mg, oral, EVERY 4 HOURS, 12 doses, First dose (after last modification) on Fri08/09/17 at 1800, Last dose on Fri08/11/17 at 1400, Routine, On Unit Followed by acetaminophen (TYLENOL) tablet 650 mgJump to med 650 mg, oral, EVERY 4 HOURS PRN, Starting on Fri08/11/17 at 1800, Until Fri08/13/17 at 1603, Pain, Routine, On Unit Group 2: azithromycin (ZITHROMAX) tablet 500 mg (COMPLETED)Jump to med 500 mg, oral, DAILY, 1 dose, First dose (after last modification) on Fri08/12/17 at 2300, STAT Followed by azithromycin (ZITHROMAX) tablet 250 mgJump to med 250 mg, oral, DAILY, 4 doses, First dose (after last modification) on Fri08/13/17 at 2100, Last dose on Fri08/16/17 at 2100, Routine Group 3: oxytocin in lactated ringers 30 units/500 mlJump to med 50 mL/hr, intravenous, CONTINUOUS, Starting on 08/09/17 at 1215, Until Fri08/13/17 at 1603, Routine, On Unit And lactated ringers (LR) infusionJump to med 75 mL/hr, intravenous, CONTINUOUS, Starting on 08/09/17 at 1215, Until Fri08/13/17 at 1603, Routine, On Unit Group 4: oxytocin in lactated ringers 30 units/500 mlJump to med 50 mL/hr, intravenous, CONTINUOUS, Starting on 08/09/17 at 1245, Until Fri08/13/17 at 1603, Routine, On Unit And lactated ringers (LR) infusionJump to med 75 mL/hr, intravenous, CONTINUOUS, Starting on 08/09/17 at 1245, Until Fri08/13/17 at 1603, Routine, On Unit Group 5: ondansetron (PF) (ZOFRAN) injection 4 mgJump to med 4 mg, intravenous, EVERY 6 HOURS PRN, Starting on 08/09/17 at 1506, Until Fri08/13/17 at 1603, Nausea, Routine, On Unit Or ondansetron (ZOFRAN-ODT) disintegrating tablet 4 mgJump to med 4 mg, oral, EVERY 6 HOURS PRN, Starting on 08/09/17 at 1506, Until Fri08/13/17 at 1603, Nausea, Routine, On Unit documented in this encounter Orders Medications Ordered That Jean ht Not Have Been Administered Count Last Ordered Date First Ordered Date azithromycin (ZITHROMAX) tablet 250 mg 2 azithromycin (ZITHROMAX) tablet 500 mg 1 HYDROmorphone (DILAUDID) tablet 4 mg 1 09/2017 ipratropium-albuterol (DUONE B) 0.5 mg-3 mg(2.5 mg base)/3 mL nebulizer solution 3 mL 1 08/12/2017 acetaminophen (TYLENOL) tablet 650 mg 3 atropine 0.1 mg/mL syringe 0.5 mg 1 017 bupivacaine (PF) (MARCAINE) 0.25 % (2.5 mg/mL) injection 1 08/09/2017 bupivacaine-fentanyl in NS 0 .0625 %-2 mcg/mL 250 mL epidural 1 08/09/2017 calcium carbonate (TUMS) 200 mg calcium (500 mg) per chewable tablet tablet,chewable 2 Tab 1 08/09/2017 carboprost (HEMABATE) intram uscular injection 250 mcg 1 08/09/2017 HYDROmorphone injection (DIL AUDID) 0.5 mg/1 mL syringe 0.2 mg 1 08/09/2017 HYDROmorphone injection (DIL AUDID) 0.5 mg/1 mL syringe 0.4 mg 1 08/09/2017 ibuprofen (MOTRIN) tablet 400 mg 3 08/09/20 17 ibuprofen (MOTRIN) tablet 800 mg 1 08/09/20 17 ketOROLAC (TORADOL) injection 30 mg 1 08/09 lactated ringers (LR) infusion 1 08/09/2017 lactated ringers BOLUS 500 mL 1 08/09/2017 methylergonovine (METHERGINE ) injection 200 mcg 1 08/09/2017 miSOPROStol (CYTOTEC) tablet 200 mcg 1 07/13 miSOPROStol (CYTOTEC) tablet 800 mcg 1 07/13 naloxone (NARCAN) injection 0.2 mg 1 2016 ondansetron (PF) (ZOFRAN) injection 4 mg 1 08/09/2017 ondansetron (ZOFRAN-ODT) dis integrating tablet 4 mg 1 08/09/2017 oxytocin in lactated ringers 30 units/500 ml 1 08/09/2017 Diet Count Last Ordered Date First Orde red Date DISCHARGE DIET 1 08/12/2017 Nursing Count Last Ordered Date First Orde red Date ACTIVITY INSTRUCTIONS 5 08/12/2017 BATHING INSTRUCTIONS 2 08/12/2017 WOUND CARE INSTRUCTIONS 4 08/12/2017 CHECK RHODES CATHETER 1 08/09/2017 INTAKE AND OUTPUT 1 08/09/[address] SEQUENTIAL COMPRESSION DEVICE 1 08/09 REMOVE DRESSING 1 08/09/2017 PT Count Last Ordered Date First Orde red Date PT EVALUATION AND TREAT 1 08/10/2017 Respiratory Care Count Last Ordered Date First Ordered Date NEBULIZER TX INTERMITTENT 3 08/13/2017 Admission Count Last Ordered Date First Orde red Date STATUS: NON-MEDICARE OB INPA TIENT ADMISSION 1 08/09/2017 Transfer Count Last Ordered Date First Orde red Date NOTIFY PPS OF DISCHARGE COMPLETE 1 08/13/19 18 PPS NOTIFICATION OF PATIENT ARRIVAL ON UNIT 1 08/09/2017 PPS NOTIFICATION OF SENDING PATIENT OFF THE UNIT 1 08/09/2017 Discharge Count Last Ordered Date First Orde red Date DISCHARGE PATIENT 1 08/13/2017 Legal Count Last Ordered Date First Orde red Date MISCELLANEOUS DISCHARGE INSTRUCTIONS 3 09/2017 documented in this encounter Care Teams Rent And Miscellaneous Remittance Clerk Relationship Specialty Start Date End Date MguzmaAbdoulaye PCP - General 12/22/15 04/05/18 documented as of this encounter
--- OUTSIDE RECORDS SUMMARY | 2024-04-14 20:38 | XMS_ITS | Encounter Summary ---
Author Organization [facility] Address [address] [place] [address] Care Team Providers Care Converting Supervisor Name Role Phone Carlos Abdoulaye Primary Care Provider [phone] Reason for Visit * Reason Comments Post- Care PPV 2wk; c/s healing well - denies infection; denies pain; going well; no breast concerns; Contraception OCP until partner ge ts vasectomy * Consult (Routine) - Specialty Report Received Specialty Diagnoses / Procedures Referred By Gregory velez Referred To Contact Midwifery / Obstetrics & Gynecology Diagnoses Supervision of high risk in third trimester Vielka Fermin MD [address] [place] [phone] [employer]-[address] [address] Referral ID Status Reason Start Date Expiration Date Visits Requested Visits Authorized [id number] Specialty Report Received Specialty Services Required 08/12/2017 1 1 Encounter Details Date Type Department Care Team (Late st Contact Info) Description 08/27/2017 13:30 EST Office Visit [facility] O[facility]YN [facility] - [facility] [address] [place] [address] Genia Peters, [facility] [address] [facility], [facility], [address] [place] [id number] Status post section routine follow-up (Primary Dx) Social History Tobacco Use Types [...] Sign Reading Time Taken Comments Blood Pressure 104/66 08/27/2017 1335 EST Pulse - - Temperature - - Respiratory Rate - - Oxygen Saturation - - Inhaled Oxygen Concentration - - Weight 85.9 kg (189 lb 6.4 oz) 08/27/[address] Height 162.6 cm (5' 4.02) 08/27/2017 1335 EST Body Mass Index 32.49 08/27/2017 1335 EST documented in this encounter Functional Status [...] of this encounter Progress Notes * Genia Peters, CNM - 08/27/2017 1330 EST CC: 2 week visit S/P for NRFA S: Gladys is here with , baby and their 2 yo son, Layo, who is active and loudly unhappy for most of the visit. FOB interacting with toddler appropriately. Gladys has been noticing more headaches recently and thinks that her migraines may be coming back, asking if she can use excedrin migraine. Remembers that she had some other prescription medication for migraines but can't remember what it was. She reports that her mood has been fine with taking the zoloft. is going well and the incision seems to be healing well. She continues to bleed lightly. Reports voiding and normal bowels. Asking about increasing her activity level. Continues to use ibuprofen and tylenol for pain as needed but not regularly. O: BP 104/66 Ht 162.6 cm (64.02) Wt 85.9 kg (189 lb 6.4 oz) LMP 11/09/2016 Comment: Irregular cycles BMI 32.49 kg/m2 Abdomen - soft, nontender, incision healing well approximated with now swelling or redness A: 27 yo S/P Anxiety Asthma P: Discussed contraception - plans no more children and they have discussed vasectomy but she wouldlike to use pills until that happens. Continue with zoloft. Contact PCP for migraine treatment. RTO in 4 weeks for 6 week check. documented in this encounter Plan of Treatment Not on file documented as of this encounter Goals Goal Patient Goal Type Associated Problems Recent Progress Patient-Stated? Author Blood Pressure < 130/80 Blood Pressure 118/78(2017 16:01 EDT) No Rina Agosto MD Weight Loss General Yes Rina Agosto MD Note: Goal = 145lbs documented as of this encounter Visit Diagnoses Diagnosis Status post section routine follow-up- Primary Routine follow-up documented in this encounter Care Teams Converting Supervisor Relationship Specialty Start Date End Date Abdoulaye Gonzalez PCP - General 12/22/15 04/05/18 documented as of this encounter
--- OUTSIDE RECORDS SUMMARY | 2024-04-14 20:38 | XMS_ITS | Encounter Summary ---
Author Organization [facility] Address [address] [place] [address] Care Team Providers Care Pharmacy Specialist Name Role Phone Abdoulaye Gonzalez Primary Care Provider [phone] Reason for Visit * Reason Onset Date Comments Pre-visit Orders 07/22/2017 Encounter Details Date Type Department Care Team (Late st Contact Info) Description 07/22/2017 Orders Only [facility] OBGYN Services - [address] [phone] Siria Dixon NP CN [address] [facility], [address] [place] [address] Anemia during in third trimester (Primary Dx) Social History Tobacco Use Types [...] No 06/23/2017 documented as of this encounter Progress Notes * Vilma Vazquez - 07/22/2017 0958 EST The [place] [employer] Monitoring System query has been completed per the following requirement(s): Acute Pain Episode. POCT HGB pended Vilma Vazquez 07/22/2017 9:59 documented in this encounter Plan of Treatment Not on file documented as of this encounter Goals Goal Patient Goal Type Associated Problems Recent Progress Patient-Stated? Author Blood Pressure < 130/80 Blood Pressure 118/78(2017 16:01 EDT) No Rina Agosto MD Weight Loss General Yes Rina Agosto MD Note: Goal = 145lbs documented as of this encounter Visit Diagnoses Diagnosis Anemia during in third trimester- Primary documented in this encounter Care Teams Pharmacy Specialist Relationship Specialty Start Date End Date Abdoulaye Gonzalez PCP - General 12/22/15 04/05/18 documented as of this encounter
--- OUTSIDE RECORDS SUMMARY | 2024-04-14 20:38 | XMS_ITS | Encounter Summary ---
Author Organization [facility] Address [address] [place] [address] Care Team Providers Care Core Piler Name Role Phone Abdoulaye Gonzalez Primary Care Provider [phone] Reason for Visit * Reason Onset Date Comments Breast Problem 10/15/2017 Low milk supply Encounter Details Date Type Department Care Team (Late st Contact Info) Description 10/17/2017 Telephone [facility] OBGYN Services - [address] [address] Victorina Hay, IBCLC Breast Problem (Low milk supply) Social History Tobacco Use Types Packs/Day Years [...] encounter Miscellaneous Notes * Telephone Encounter - Victorina Hay - 10/17/[id number] EST Gladys was referred to me from the [facility] call center. Gladys's baby has thrived on her exclusive breast milk for the past 10 weeks. For the past two days, Gladys has decreased her usual pattern due to traveling to visit family. She called [facility], when she realized that she had less milk and a hungry baby. Recommend: - Frequent feeding at the breast - Pump, if possible, to increase breast stimulation and milk supply - Recommend cluster feeding to increase milk supply. Milk supply should rebound quickly if Gladys is able to feed her baby more often. Gladys has my contact info and will call this weekend if her milk supply does not increase. documented in this encounter Plan of Treatment [...] on filedocumented in this encounter Care Teams Core Piler Relationship Specialty Start Date End Date Abdoulaye Gonzalez PCP - General 12/22/15 04/05/18 documented as of this encounter
--- OUTSIDE RECORDS SUMMARY | 2024-04-14 20:38 | XMS_ITS | Encounter Summary ---
Author Organization [facility] Address [address] [place] [address] Care Team Providers Care Body Mechanic Apprentice Name Role Phone Abdoulaye Gonzalez Primary Care Provider [phone] Reason for Visit * Reason Comments Contraception Encounter Details Date Type Department Care Team (Late st Contact Info) Description 10/22/2017 11:00 EDT Office Visit [facility] OBGYN Services - [address] [id number] Jenniffer Fuentes MD [address] [facility], [address] [place] [address] Vielka Fermin MD [address] [place] [phone] Encounter for IUD insertion (Primary Dx) Social History Tobacco Use Types [...] Sign Reading Time Taken Comments Blood Pressure 106/70 10/22/2017 1053 EDT Pulse - - Temperature - - Respiratory Rate - - Oxygen Saturation - - Inhaled Oxygen Concentration - - Weight 86.6 kg (191 lb) 10/22/2017 1053 EDT Height 160 cm (5' 3) 10/22/2017 1053 EDT Body Mass Index 33.83 10/22/2017 1053 EDT documented in this encounter [...] as of this encounter Progress Notes * Jenniffer Fuentes MD - 10/22/2017 1100 EDT Attestation statement: I discussed the patient with the resident at the time of the visit. I was present for the IUD insertion procedure. I agree with the findings and the plan of care documented in the resident's note. Jenniffer Fuentes MD 11/03/2017 11:48 documented in this encounter Procedure Notes * Vielka Fermin MD - 10/22/2017 1100 EDT Procedure: Procedures IUD insertion Risks and benefits of procedure were discussed with patient. Patient understood and consented to procedure. UPT was negative just prior to procedure. No unprotected sex in the last 2 weeks. Bimanual exam revealed an anteverted normal sized uterus. A speculum was placed in the vagina and the cervix was brought into view. The cervix was prepped in the normal sterile fashion with betadine. A single toothed tenaculum was placed on the anterior cervical lip. The uterus was sounded to 9cm. Kyleena IUD was placed according to underground repairer's instructions. Tenaculum was removed and excellent hemostasis was noted. The IUD strings were trimmed to 2cm. The speculum was then removed. The patient tolerated the procedure well. She will return to clinic for a string check in 2 weeks. Date of insertion: 10/22/2017 IUD Lot #: [id number] Dr. Fuentes was present throughout the procedure. documented in this encounter Plan of Treatment Not on file documented as of this encounter Goals Goal Patient Goal Type Associated Problems Recent Progress Patient-Stated? Author Blood Pressure < 130/80 Blood Pressure 118/78(2017 16:01 EDT) No Rina Agosto MD Weight Loss General Yes Rina Agosto MD Note: Goal = 145lbs documented as of this encounter Procedures Procedure Name Priority Date/Time Associated Diagnosis Comments POCT TEST, CLINITEK Routine 10/22/2017 10:56 EDT Encounter for IUD insertion documented in this encounter Results * POCT TEST, CLINITEK (10/22/2017 10:56 EDT) UPT Result Neg Neg 10/22/2017 11:12 EDT [facility] cad specialist ID [id number] 10/22/2017 11:12 EDT [facility] Comment:Test performed at [facility] Urine specimen (specimen) URINE / Unknown 10/22/2017 10:56 EDT 10/22/2017 11:12 EDT Jenniffer Fuentes MD POINT OF CARE TEST O RDERABLES [facility] [address] [place] [address] documented in this encounter Visit Diagnoses Diagnosis Encounter for IUD insertion- Primary Encounter for insertion of intrauterine contraceptive device documented in this encounter Administered Medications Inactive Administered Medications - up to 3 most recent administrations Medication Order MAR Action Action Date Dose Rate Site levonorgestrel (KYLEENA) 17.5 mcg/24 hr (5 years) IUD 1 Each 1 Each, intrauterine, CONTINUOUS, Starting on Fri10/22/17 at 1145, Until Fri10/22/17 at 1334, Per [facility], use is restricted to outpatient clinics and the OR. LARC approved for inpatient use includes Mirena, Nexplanon, and Paragard only for patients covered by [facility] Routine New Bag 10/22/2017 11:30 EDT 1 Each documented in this encounter Discontinued Medications Medication Sig Discontinue Reason Start Date End Da te norethindrone (MICRONOR) 0.35 mg tablet Take 1 Tab by mouth daily. Alternate therapy 10/01/2017 10/22/2017 documented as of this encounter Orders Medications Ordered That Jean ht Not Have Been Administered Count Last Ordered Date First Ordered Date levonorgestrel (KYLEENA) 17. 5 mcg/24 hr (5 years) IUD 1 Each 1 10/22/2017 documented in this encounter Care Teams Body Mechanic Apprentice Relationship Specialty Start Date End Date Abdoulaye Gonzalez PCP - General 12/22/15 04/05/18 documented as of this encounter
--- OUTSIDE RECORDS SUMMARY | 2024-04-14 20:38 | XMS_ITS | Encounter Summary ---
Author Organization [facility] Address [address] [place] [address] Care Team Providers Care Production Or Plant Engineer Name Role Phone Abdoulaye Gonzalez Primary Care Provider [phone] Reason for Visit * Reason Onset Date Comments Results 08/07/2017 P:C ratio Encounter Details Date Type Department Care Team (Late st Contact Info) Description 08/07/2017 Telephone [facility] OBGYN Services - Main [address] [address] Latisha Draper RN Results (P:C ratio) Social History Tobacco Use Types Packs/Day Years [...] encounter Miscellaneous Notes * Telephone Encounter - Latisha Draper, RN - 08/07/2017 1430 EST TC from Lab Customer Service to report stat results complete for urine P:C ratio = 0.6. Genia Peters CNM inserter promotional item, notified. documented in this encounter Plan of Treatment [...] on filedocumented in this encounter Care Teams Production Or Plant Engineer Relationship Specialty Start Date End Date Abdoulaye Gonzalez PCP - General 12/22/15 04/05/18 documented as of this encounter
--- OUTSIDE RECORDS SUMMARY | 2024-04-14 20:38 | XMS_ITS | Encounter Summary ---
Author Organization [facility] Address [address] [place] [address] Care Team Providers Care Board Mill Supervisor Name Role Phone Abdoulaye Gonzalez Primary Care Provider [phone] Encounter Details Date Type Department Care Team (Late st Contact Info) Description 08/07/2017 11:45 EST Routine [facility] OBGYN Services - [address] [id number] Lashon Interiano NP [address], [address] [place] [phone] GA: [id number] Discharge Disposition: Auto Discharge Social History Tobacco [...] 06/23/2017 documented as of this encounter Discharge Disposition Disposition Code Departure Means Destination Auto Discharge documented in this encounter Plan of Treatment [...] on filedocumented in this encounter Care Teams Board Mill Supervisor Relationship Specialty Start Date End Date Abdoulaye Gonzalez PCP - General 12/22/15 04/05/18 documented as of this encounter
--- OUTSIDE RECORDS SUMMARY | 2024-04-14 20:38 | XMS_ITS | Encounter Summary ---
Author Organization [facility] Address [address] [place] [address] Care Team Providers Care Security Professionals Name Role Phone Abdoulaye Gonzalez Primary Care Provider Reason for Visit * Reason Onset Date Comments Contractions 08/08/2017 Encounter Details Date Type Department Care Team (Late st Contact Info) Description 08/08/2017 Telephone [facility] OBGYN Services - [address] [address] Latisha Draper RN Contractions Social History Tobacco Use Types Packs/Day [...] Telephone Encounter - Latisha Draper, RN - 08/08/2017 1629 EST TC from [facility]ys at 38+6 weeks with painful contractions every 4 minutes which started only 30 minutes ago. States she lost her mucous plug but no ROM. Breathing heavily during the phone call. Kristal Dixon CNM applications sales consultant, notified and will follow-up with Gladys. documented in this encounter Plan of Treatment [...] on filedocumented in this encounter Care Teams Security Professionals Relationship Specialty Start Date End Date Abdoulaye Gonzalez PCP - General 12/22/15 04/05/18 documented as of this encounter
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
--- OUTSIDE RECORDS SUMMARY | 2024-04-14 20:38 | XMS_ITS | Encounter Summary ---
Author Organization [facility] Address [address] [place] [address] Care Team Providers Care Chief Crna Name Role Phone Abdoulaye Gonzalez Primary Care Provider [phone] Reason for Referral * Consult (Routine) - Closed Specialty Diagnoses / Procedures Referred By Gregory velez Referred To Contact Midwifery Diagnoses Supervision of high risk in third trimester Genia Peters NP CNM [address] [address] Referral ID Status Reason Start Date Expiration Date V isits Requested Visits Authorized [id number] Closed Specialty Services Required 08/07/2017 1 1 Question Answer Reason for Request: Cancel appointment on 08/08/17. Reschedule appointment for early next week Reason for Visit * Reason Comments Pre-Eclampsia Encounter Details Date Type Department Care Team (Late st Contact Info) Description 08/07/2017 12:47 EST - 08/07/2017 16:58 EST Hospital Encounter [facility] [address] [place], [place] [id number] Iman Weiss MD [address] [address] Supervision of high risk in third trimester [...] Sign Reading Time Taken Comments Blood Pressure 106/55 08/07/2017 1600 EST Pulse - - Temperature 36.4 ??C (97.5 ??F) 08/07/2017 1600 EST Respiratory Rate 20 08/07/2017 1600 EST Oxygen Saturation - - Inhaled Oxygen [...] O26.893 Other specified related conditions, third trimester-O26.893[ICD-10-CM] R51 Headache-R51[ICD-10-CM] O12.13 Gestational proteinuria, third trimester-O12.13[ICD-10-CM] Z87.898 Personal history of other specified conditions-Z87.898[ICD-10-CM] Z3A.38 38 weeks gestation of -Z3A.38[ICD-10-CM] documented in this encounter Medications at Time [...] documented in this encounter Progress Notes * Genia Peters, [facility] - 08/07/2017 6907 EST S: Gladys decided to try the compazine after the fioricet didn't help very much. She now states that her headache is much better but she feels very antsy and has a lot of nasal congestion. She really doesn't want to stay and also really doesn't want to get preeclampsia again and have to be stuck in bed in labor. She reports that when giving the urine sample she was having a lot of vaginal discharge that wasn't easy to wipe away. She feels ok to go home. She would like to have her membranes stripped at her next visit. O: BP 106/55 Temp 36.4 ??C (97.5 ??F) (Tympanic) Resp 20 LMP 11/09/2016 Comment: Irregular cycles FHR - 125, moderate variability, + accels, no decels [place] - occasional contraction Recent Labs 08/07/17 1340 WBC 8.79 HCT 30.9* HGB 10.3* PLT 208 BUN 5* CREATININE 0.44* ALT 22 AST 13* URICACID 3.1 LDH 359 FIBRINOGEN 514* Urine protein/creatinine = 0.6 A: 27 yo @ 38+5 weeks with Migraine headache One elevated diastolic BP of 90 Proteinuria Normal serum preeclamptic labs Cat I FHR P: Patient discussed with Dr. Fuentes. Will send home to do 24 hour urine collection. She will warp picker compazine prescription to use if she needs it. Reschedule APV for tomorrow to next week. * Genia Peters CNM - 08/07/2017 1337 EST CC: Headache S: Gladys was sent from office for a bad headache, BP in office of 130/90. She has a history of preeclampsia in her first and was induced at 37 weeks. She thinks she feels the same way aswhen she got preeclampsia before, My BP is never as high as 130 normally. The headache has been there for a few days and is much worse today, sensitive to lights, some vision changes for the last couple days - stars and some blurry vision. She took tylenol at 6:30 this morning, 1000mg with slightrelief. Also getting some upper abdominal pain that has been happening for a few days, its sharp and intermittent. She has occasional contractions, no vaginal bleeding or leaking fluid. Her vaginal di scharge is clear and slimy. She does feel nauseous and hasn't felt like eating, had some dry heavesthis morning. Last meal was 3 pm yesterday. States that when she had compazine in her last , it made her feel like I was crawling out of my skin. and doesn't want to take again. Suzanne reports that her BP is always higher at home than the ones that we take here. O: Wearing sunglasses, speaking softly Patient Vitals for the past 1 hrs: BP Resp 08/07/17 1306 109/62 20 A: 27 yo @ 38+5 wks with headache suggestive of migraine History of preeclampsia Elevated diastolic BP in office x 1 Cat I FHR P: Preeclamptic labs with urine protein:creatinine sent. IV started for hydration. Will try PO tylenol and fioricet. * Romina Azevedo RN - 08/07/2017 1308 EST Pt arrived from CNM office w/ c/o migraine headache, very sensitive to light states woke up w/ it.seeing blurry vision and stars Took Tylenol 1000mg @ 0630 w/sl relief. Denies vaginal bleeding, ROM, regular ctxs. C/o some intermittent sharp upper abdominal discomfort.States may be gas, Had soft loose stool this am. States good movement. EFM explained and applied. 1317 Genia Peters CNM in to evaluate pt 1340 IV started, Labs drawn, states is thirsty. Given po fluids. Orders noted for meds 1407 Meds given as ordered for headache 1445 Sitting up eating soup and josie delores. States headache 5/10 now 1510 states had gotten up to BR, now w/ terrible headache again. States will take Compazine Genia Peters aware and will order 24 hr urine and Compazine 1554 IV Compazine given as ordered. 1620 Genia Peters CNM in to talk w/ pt. C/o nasal stuffiness now. Wanting cough drops. 1635 States headache is 2/10 now, wanting to go home, Discharge instructions given per Genia Peters CNM . Reviewed 24 hr urine collection. Knows to call in am to cancel tomorrows OB apt and do 24hr urine collection, can reschedule for earlier next week apt. 1650 IV dc'd, Reviewed written discharge instructions. All questions answered. Home w/ SPouse via w/c documented in this encounter Plan of Treatment Scheduled Referrals Name Type Priority Associated Diagnoses Order Schedule AMB CONS/FOLLOW UP OBSTETRICS Outpatient Referral Routine Supervision of high risk in third trimester Ordered: 08/07/2017 documented as of this encounter Goals Goal Patient Goal Type Associated Problems Recent Progress Patient-Stated? Author Blood Pressure < 130/80 Blood Pressure 118/78(2017 16:01 EDT) No Rina Agosto MD Weight Loss General Yes Rina Agosto MD Note: Goal = 145lbs documented as of this encounter Procedures Procedure Name Priority Date/Time Associated Diagnosis Comments FIBRINOGEN STAT 08/07/2017 13:40 EST COMPLETE BLOOD COUNT STAT 08/07/2017 13:40 EST URIC ACID STAT 08/07/2017 13:40 EST BUN STAT 08/07/2017 13:40 EST ALT STAT 08/07/2017 13:40 EST AST STAT 08/07/2017 13:40 EST LDH STAT 08/07/2017 13:40 EST CREATININE STAT 08/07/2017 13:40 EST documented in this encounter Results * LDH (08/07/2017 13:40 EST) LDH 359 313 - 618 U/L 08/07/2017 14:09 EST [facility] Blood specimen (specimen) BLOOD SPECIMEN / Unknown 08/07/2017 13:40 EST 08/07/2017 13:46 EST Genia YANG CHEMISTRY & BL OOD GAS ORDERABLES Performing Organization Address City/[facility] Co de Phone Number [facility] [address] [place] [address] * (ABNORMAL) FIBRINOGEN (08/07/2017 13:40 EST) Fibrinogen 514(H) 171 - 384 mg/dl 08/07/2017 14:12 EST [facility] Blood specimen (specimen) BLOOD SPECIMEN / Unknown 08/07/2017 13:40 EST 08/07/2017 13:46 EST Genia Peters MARRIAGE PERFORMER [facility] HEMATOLOGY & P F4 ORDERABLES Performing Organization Address City/[facility]/ZIP Co de Phone Number [facility] [address] [place] [address] * ALT (08/07/2017 13:40 EST) ALT 22 <53 U/L 08/07/2017 14:09 EST [facility] Blood specimen (specimen) BLOOD SPECIMEN / Unknown 08/07/2017 13:40 EST 08/07/2017 13:46 EST Genia Peters MARRIAGE PERFORMER CNM CHEMISTRY & BL OOD GAS ORDERABLES Performing Organization Address City/[facility]/ZIP Co de Phone Number [facility] [address] [place] [address] * (ABNORMAL) AST (08/07/2017 13:40 EST) AST 13(L) 15 - 46 U/L 08/07/2017 14:09 EST [facility] Blood specimen (specimen) BLOOD SPECIMEN / Unknown 08/07/2017 13:40 EST 08/07/2017 13:46 EST Genia Peters MARRIAGE PERFORMER CN CHEMISTRY & BL OOD GAS ORDERABLES Performing Organization Address City/[facility] Co de Phone Number [facility] [address] [place] [address] * URIC ACID (08/07/2017 13:40 EST) Pathologist [facility] Uric Acid 3.1 2.2 - 7.7 mg/dl 08/07/2017 14:09 EST [facility] Blood specimen (specimen) BLOOD SPECIMEN / Unknown 08/07/2017 13:40 EST 08/07/2017 13:46 EST Genia Peters MARRIAGE PERFORMER [facility] CHEMISTRY & BL OOD GAS ORDERABLES Performing Organization Address City/[facility] Co de Phone Number [facility] [address] [place] [address] * (ABNORMAL) CREATININE (08/07/2017 13:40 EST) Creatinine 0.44(L) 0.52 - 1.04 mg/dl 08/07/2017 14:09 EST [facility] GFR, Calculated 139 >60 ml/min/1.7 3m2 08/07/2017 14:09 [facility] Comment: eGFR calculated using CKD-EPI equation for non Americans. Multiply eGFR by 1.16 for Americans. Blood specimen (specimen) BLOOD SPECIMEN / Unknown 08/07/2017 13:40 EST 08/07/2017 13:46 EST Genia Peters NP [facility] CHEMISTRY & BL OOD GAS ORDERABLES Performing Organization Address [facility] Co de Phone Number [facility] [address] [place] [address] * (ABNORMAL) BUN (08/07/2017 13:40 EST) BUN 5(L) 10 - 26 mg/dl 08/07/2017 14:09 [facility] Blood specimen (specimen) BLOOD SPECIMEN / Unknown 08/07/2017 13:40 EST 08/07/2017 13:46 EST Genia Peters NP [facility] CHEMISTRY & BL OOD GAS ORDERABLES Performing Organization Address City/[facility] Co de Phone Number [facility] [address] [place] [address] * (ABNORMAL) HEMAGRAM (08/07/2017 13:40 EST) WBC 8.79 4.0 - 12.4 K/cmm 08/07/2017 14:01 [facility] RBC 4.03 3.86 - 5.04 M/cmm 08/07/2017 14:01 [facility] Hemoglobin 10.3(L) 11.6 - 15.2 gm/dl 08/07/2017 14:01 [facility] HCT 30.9(L) 34.9 - 44.4 % 08/07/2017 14:01 [facility] MCV 77(L) 81 - 98 fl 08/07/2017 14:01 [facility] MCH 25.6(L) 26.7 - 33.3 pg 08/07/2017 14:01 [facility] Hypochromia 1+ 08/07/2017 14:01 [facility] MCHC 33.3 32.1 - 35.9 gm/dl 08/07/2017 14:01 [facility] RDW-CV 15.2(H) <14.7 % 08/07/2017 14:01 [facility] RDW-SD 41.8 <50.4 fl 08/07/2017 14:01 [facility] PLT 208 141 - 377 K/cmm 08/07/2017 14:01 [facility] MPV 12.2 9.5 - 12.7 fl 08/07/2017 14:01 [facility] Blood specimen (specimen) BLOOD SPECIMEN / Unknown 08/07/2017 13:40 EST 08/07/2017 13:46 EST Genia Peters NP [facility] HEMATOLOGY & P F4 ORDERABLES Performing Organization Address City/State/[facility] Co de Phone Number [facility] [address] [place] [address] documented in this encounter Visit Diagnoses Diagnosis Supervision of high risk in third trimester- Primary Unspecified high-risk Supervision of high-risk Unspecified high-risk documented in this encounter Administered Medications Inactive Administered Medications - up to 3 most recent administrations Medication Order MAR Action Action Date Dose Rate Site acetaminophen (TYLENOL) tablet 500 mg 500 mg, oral, EVERY 4 HOURS PRN, Starting on Fri08/07/17 at 1336, Until Fri08/07/17 at 1914, Pain, Routine Given 08/07/2017 14:07 EST 500 mg benzocaine-menthol (CEPACOL) 15-3.6 mg per lozenge 1 Lozenge 1 Lozenge, buccal, PRN, Starting on Fri08/07/17 at 1613, Until Lauryn 08/07/17 at 1914, Pain, Routine euwuuxiupe-qfrdgsofwbjut-zdu feine (FIORICET, ESGIC) 50-325-40 mg per tablet 1 Tab 1 Tablet, oral, EVERY 4 HOURS PRN, Starting on Fri08/07/17 at 1335, Until Fri08/07/17 at 1914, Headaches, Routine Given 08/07/2017 14:07 EST 1 Tablet lactated ringers (LR) infusion at 150-200 mL/hr, intravenous, CONTINUOUS, Starting on Lauryn 08/07/17 at 1330, Until Lauryn 08/07/17 at 1914, Routine Rate Change 08/07/2017 15:30 EST 150 mL/hr lactated ringers BOLUS 500 mL 500 mL, intravenous, NOW X1, 1 dose, On Lauryn 08/07/17 at 1330, Routine Given 08/07/2017 13:40 EST 500 mL prochlorperazine edisylate (COMPAZINE) injection 10 mg 10 mg, intravenous, EVERY 6 HOURS PRN, Starting on Lauryn 08/07/17 at 1519, Until Lauryn 08/07/17 at 1914, Nausea, Routine Given 08/07/2017 15:54 EST 10 mg documented in this encounter Discontinued Medications Medication Sig Discontinue Reason Start Date End Da te benzonatate (TESSALON) 100 mg capsule Take 1 Cap by mouth 2 times daily as needed for Cough. 07/27/2017 08/07/2017 documented as of this encounter Active and Recently Administered Medications Times are shown in EST. Scheduled Medication Order 08/05/2017 08/06/2017 08/07/2017 lactated ringers BOLUS 500 mL (COMPLETED) 500 mL, intravenous, NOW X1, 1 dose, On Lauryn 08/07/17 at 1330, Routine 1340 (Given - Provid er: Romina Azevedo RN) Continuous Medication Order 08/05/2017 08/06/2017 08/07/2017 lactated ringers (LR) infusion at 150-200 mL/hr, intravenous, CONTINUOUS, Starting on Lauryn 08/07/17 at 1330, Until Lauryn 08/07/17 at 1914, Routine 1530 (Rate Change - Provider: Romina Azevedo RN) PRN Medication Order 08/05/2017 08/06/2017 08/07/2017 acetaminophen (TYLENOL) tablet 500 mg 500 mg, oral, EVERY 4 HOURS PRN, Starting on Lauryn 08/07/17 at 1336, Until Lauryn 08/07/17 at 1914, Pain, Routine 1407 (Given - Provid er: Romina Azevedo RN) benzocaine-menthol (CEPACOL) 15-3.6 mg per lozenge 1 Lozenge 1 Lozenge, buccal, PRN, Starting on Lauryn 08/07/17 at 1613, Until Lauryn 08/07/17 at 1914, Pain, Routine spyyjxkqwu-txzdbcprhljdn-csuvuyx e (FIORICET, ESGIC) 50-325-40 mg per tablet 1 Tab 1 Tablet, oral, EVERY 4 HOURS PRN, Starting on Lauryn 08/07/17 at 1335, Until Lauryn 08/07/17 at 1914, Headaches, Routine 1407 (Given - Provid er: Romina Azeevdo RN) prochlorperazine edisylate (COMPAZINE) injection 10 mg 10 mg, intravenous, EVERY 6 HOURS PRN, Starting on Lauryn 08/07/17 at 1519, Until Lauryn 08/07/17 at 1914, Nausea, Routine 1554 (Given - Provid er: Romina Azevedo RN) documented in this encounter Orders Medications Ordered That Jean ht Not Have Been Administered Count Last Ordered Date First Ordered Date benzocaine-menthol (CEPACOL) 15-3.6 mg per lozenge 1 Lozenge 1 08/07/2017 Diet Count Last Ordered Date First Orde red Date DISCHARGE DIET 2 08/07/2017 Nursing Count Last Ordered Date First Orde red Date ACTIVITY INSTRUCTIONS 1 08/07/2017 BATHING INSTRUCTIONS 1 08/07/2017 Admission Count Last Ordered Date First Orde red Date STATUS: OUTPATIENT OBSERVATION SERVICES 1 1 10/08/2016 Transfer Count Last Ordered Date First Orde red Date NOTIFY PPS OF DISCHARGE COMPLETE 1 08/07/20 17 Discharge Count Last Ordered Date First Orde red Date DISCHARGE PATIENT 1 08/07/2017 Legal Count Last Ordered Date First Orde red Date MISCELLANEOUS DISCHARGE INSTRUCTIONS 1 07/12 documented in this encounter Care Teams Chief Crna Relationship Specialty Start Date End Date Abdoulaye Gonzalez PCP - General 12/22/15 04/05/18 documented as of this encounter
--- OUTSIDE RECORDS SUMMARY | 2024-04-14 20:38 | XMS_ITS | Encounter Summary ---
Author Organization [facility] Address [address] [place] [address] Care Team Providers Care Nursing Professor Name Role Phone Abdoulaye Gonzalez Primary Care Provider [phone] Reason for Visit * Reason Onset Date Comments Other 08/05/2017 Encounter Details Date Type Department Care Team (Late st Contact Info) Description 08/05/2017 Telephone [facility] OBGYN Services - [address] [phone] Genia Peters, WEIGHTS AND MEASURES INSPECTOR [facility] [address] [facility], [address] [place] [address] Other Social History Tobacco Use [...] encounter Miscellaneous Notes * Telephone Encounter - Genia Peters CNM - 08/05/2017 1007 EST Gladys called because she's noticed that the swelling in her feet has gotten worse. She's been having mild headaches that improve with tylenol. And her vision is 'off'. States that she is seeing more stars. Hasn't been driving for about a month because sometimes vision seems blurry. Worrying about preeclampsia. Has an appointment tomorrow. Doesn't want to come in today, but wanted us to be aware. Suggested she rest and elevate legs today. Drink lots of fluids. Call if headache or vision worsens significantly. documented in this encounter Plan of Treatment [...] on filedocumented in this encounter Care Teams Nursing Professor Relationship Specialty Start Date End Date Abdoulaye Gonzalez PCP - General 12/22/15 04/05/18 documented as of this encounter
--- OUTSIDE RECORDS SUMMARY | 2024-04-14 20:38 | XMS_ITS | Encounter Summary ---
Author Organization [facility] Address [address] [place] [address] Care Team Providers Care Shaft Mechanic Name Role Phone Abdoulaye Gonzalez Primary Care Provider [phone] Encounter Details Date Type Department Care Team (Late st Contact Info) Description 09/10/2017 Phlebotomy Only [address] [address] Aviation Manager, Outpatient Lightheaded; Chronic migraine without aura without status migrainosus, not intractable; History of anemia Social History Tobacco Use Types Packs/Day Years [...] No 08/09/2017 documented as of this encounter Plan of [...] Procedure Name Priority Date/Time Associated Diagnosis Comments COMPLETE BLOOD COUNT Routine 09/10/2017 12:19 EST Lightheaded Chronic migraine without aura without status migrainosus, not intractable History of anemia FERRITIN Routine 09/10/2017 12:19 EST Lightheaded Chronic migraine without aura without status migrainosus, not intractable History of anemia documented in this encounter Results * FERRITIN (09/10/2017 12:19 EST) Ferritin 13 10 - 291 ng/ml 09/11/2017 11:18 EST [facility] Blood specimen (specimen) BLOOD SPECIMEN / Unknown 09/10/2017 12:19 EST 09/10/2017 15:24 EST Abdoulaye Gonzalez CHEMISTRY & BLOOD GA S ORDERABLES Performing Organization Address City/State/[place] Co de Phone Number [facility] [address] [place] [phone] * (ABNORMAL) HEMAGRAM (09/10/2017 12:19 EST) WBC 8.40 4.0 - 12.4 K/cmm 09/10/2017 15:44 EST [facility] RBC 4.63 3.86 - 5.04 M/cmm 09/10/2017 15:44 EST [facility] Hemoglobin 11.0(L) 11.6 - 15.2 gm/dl 09/10/2017 15:44 EST [facility] HCT 35.5 34.9 - 44.4 % 09/10/2017 15:44 [facility] MCV 77(L) 81 - 98 fl 09/10/2017 15:44 [facility] MCH 23.8(L) 26.7 - 33.3 pg 09/10/2017 15:44 [facility] Hypochromia 1+ 09/10/2017 15:44 [facility] MCHC 31.0(L) 32.1 - 35.9 gm/dl 09/10/2017 15:44 [facility] RDW-CV 15.2(H) <14.7 % 09/10/2017 15:44 [facility] RDW-SD 42.0 <50.4 fl 09/10/2017 15:44 [facility] PLT 282 141 - 377 K/cmm 09/10/2017 15:44 [facility] MPV 11.2 9.5 - 12.7 fl 09/10/2017 15:44 [facility] Blood specimen (specimen) BLOOD SPECIMEN / Unknown 09/10/2017 12:19 EST 09/10/2017 15:24 EST Abdoulaye Gonzalez HEMATOLOGY & PF4 ORD ERABLES [facility] [address] [place] [address] documented in this encounter Visit Diagnoses Diagnosis Lightheaded Dizziness and giddiness Chronic migraine without aura without status migrainosus, not intractable Chronic migraine without aura, without mention of intractable migraine without mention of status migrainosus History of anemia Personal history of diseases of blood and blood-forming organs documented in this encounter Care Teams Shaft Mechanic Relationship Specialty Start Date End Date Abdoulaye Gonzalez PCP - General 12/22/15 04/05/18 documented as of this encounter
--- OUTSIDE RECORDS SUMMARY | 2024-04-14 20:38 | XMS_ITS | Encounter Summary ---
Author Organization [facility] Address [address] [place] [address] Care Team Providers Care Engine Pilot Name Role Phone Abdoulaye Gonzalez Primary Care Provider [phone] Reason for Visit * Reason Comments Routine Visit Encounter Details Date Type Department Care Team (Late st Contact Info) Description 07/16/2017 11:15 EST Routine [facility] OBGYN Services - [address] [id number] Elinor Borrero NP [facility] [address] [facility], [address] [place] [phone] GA: 35w4d Discharge Disposition: Auto Discharge Social History Tobacco [...] Sign Reading Time Taken Comments Blood Pressure 100/76 07/16/2017 1158 EST Pulse - - Temperature - - Respiratory Rate - - Oxygen Saturation - - Inhaled Oxygen Concentration - - Weight 98 kg (216 lb) 07/16/2017 1158 EST Height 162.6 cm (5' 4.02) 07/16/2017 1158 EST Body Mass Index 37.06 07/16/2017 1158 EST documented in this encounter Functional Status [...] as of this encounter Discharge Diagnoses Diagnosis Z34.83 Encounter for supervision of other normal , third trimester-Z34.83[ICD-10-CM] documented in this encounter Discharge Disposition Disposition Code Departure Means Destination Auto Discharge documented in this encounter Progress Notes * Elinor Borrero CNM - 07/16/2017 1115 EST S: Gladys Rebeka Lopez is here today for a visit at 35w4d. Just had ultrasound. No regularcontractions since L&D evaluation last week. On day #4 of Monistat treatment. Never had symptoms so not sure if it is helping? Hoping to deliver by EDC. Likely POP for contraception, really doesn't want an IUD or anything that goes inside me again. Denies SANTIAGO, visual changes, epigastric pain, bleeding, loss of fluid or painful contractions. + FM. O: Vitals: BP: 100/76 Height: 162.6 cm (64.02) Weight : 98 kg (216 lb) BMI: 37.135 Fundal Height (cm): 35 cm Heart Rate: u/s Movement: Present Presentation: Vertex Dilation: 1 Effacement (%): 50 Station: -2 Ultrasound today: vertex, LEOPOLDO 13.8, EFW 69%tile A: 27 y.o. at 35w4d IUP S=D BMI 35 Hx PEC Hx kidney stones Hx anxiety/depression Asthma Anemia Rh pos P: GBS collected, discussed treatment Reviewed warning signs/when to call Follow up in 1 wk, sooner PRN documented in this encounter Plan of Treatment Not on file documented as of this encounter Goals Goal Patient Goal Type Associated Problems Recent Progress Patient-Stated? Author Blood Pressure < 130/80 Blood Pressure 118/78(2017 16:01 EDT) No Rina Agosto MD Weight Loss General Yes Rina Agosto MD Note: Goal = 145lbs documented as of this encounter Procedures Procedure Name Priority Date/Time Associated Diagnosis Comments GROUP B STREP PCR Routine 07/16/2017 11: 59 EST Encounter for supervision of other normal in third trimester documented in this encounter Results * GROUP B STREP PCR (07/16/2017 11:59 EST) GROUP B STREP PCR Negative 07/17/2017 14:22 EST [facility] Specimen of unknown material (specimen) TOPOGRAPHY UNKNOWN / Unknown 07/16/2017 11:59 EST 07/16/2017 12:43 EST Elinor YANGM MICROBIOL OGY - GENERAL ORDERABLES Performing Organization Address City/State/[facility] Co de Phone Number [facility] [address] [place] [address] documented in this encounter Visit Diagnoses Diagnosis Encounter for supervision of other normal in third trimester- Primary documented in this encounter Discontinued Medications Medication Sig Discontinue Reason Start Date End Da te ondansetron (ZOFRAN) 4 mg tablet Take 1 Tab by mouth every 8 hours as needed for Nausea. 06/21/2017 07/16/2017 documented as of this encounter Care Teams Engine Pilot Relationship Specialty Start Date End Date Abdoulaye Gonzalez PCP - General 12/22/15 04/05/18 documented as of this encounter
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
--- OUTSIDE RECORDS SUMMARY | 2024-04-14 20:38 | XMS_ITS | Encounter Summary ---
Author Organization [facility] Address [address] [place] [address] Care Team Providers Care Food Service Technician Name Role Phone Abdoulaye Gonzalez Primary Care Provider [phone] Reason for Visit * Reason Comments Routine Visit Encounter Details Date Type Department Care Team (Late st Contact Info) Description 07/30/2017 15:00 EST Routine [facility] OBGYN Services - [address] [phone] Nae Ayala, HORTICULTURE/FLORICULTURE TEACHER [facility] [address] [facility], [address] [place] [phone] GA: 37w4d Social History Tobacco Use Types Packs/Day Years [...] Sign Reading Time Taken Comments Blood Pressure 130/76 07/30/2017 1507 EST Pulse - - Temperature - - Respiratory Rate - - Oxygen Saturation - - Inhaled Oxygen Concentration - - Weight 98.4 kg (217 lb) 07/30/2017 1507 EST Height - - Body Mass Index 37.23 07/16/2017 1158 EST documented in this encounter [...] as of this encounter Progress Notes * Elinor Borrero CNM - 07/30/2017 1500 EST S: Gladys Lopez is here today for a visit at 37w4d. Son was admitted to [place] [address] this week for dehydration r/t stomach bug. Gladys denies symptoms. Having more pelvic pressure. Sore throat resolved, now just congested and feeling tired. Continues to have mild, irregular contractions. Wants SVE. Denies SANTIAGO, visual changes, epigastric pain, edema, bleeding, loss of fluid or painful contractions. + FM. O: Vitals: BP: 130/76 Weight : 98.4 kg (217 lb) Fundal Height (cm): 37 cm Heart Rate: 120 Movement: Present Presentation: Vertex Dilation: 1 Effacement (%): 80 Station: -1 Temp 98.8 Urine dip SG 1.020, trace protein, trace glucose, otherwise neg A: 27 y.o. at 37w4d IUP S=D BMI 35 Hx PEC Hx kidney stones Hx anxiety/depression Asthma Anemia RH pos / GBS neg P: Push fluids, rest, saline nasal spray Reviewed warning signs/when to call Follow up [...] Name Priority Date/Time Associated Diagnosis Comments POCT URINE DIPSTICK, CLINITEK Routine 07/30/2017 15:17 EST Encounter for supervision of other normal in third trimester documented in this encounter Results * (ABNORMAL) POCT URINE DIPSTICK (07/30/2017 15:17 EST) Color YELLOW 07/30/2017 15:27 [facility] Clarity, UA Clear 07/30/2017 15:27 [facility] Glucose Trace(A) Neg 07/30/2017 15:27 [facility] Bilirubin Neg Neg 07/30/2017 15:27 [facility] Ketones Neg Neg 07/30/2017 15:27 [facility] Specific [place] 1.020 1.001 - 1.035 07/30/2017 15:27 [facility] Blood Neg Neg 07/30/2017 15:27 [facility] pH 7.0 4.6 - 8.0 07/30/2017 15:27 [facility] Protein Trace(A) Neg 07/30/2017 15:27 [facility] Urobilinogen 0.2 0.2 - 1.0 E.U./dl 07/30/2017 15:27 [facility] Nitrite Neg Neg 07/30/2017 15:27 [facility] Leuk Esterase Neg Neg 07/30/2017 15:27 [facility] associate research scientist ID [id number] 07/30/2017 15:27 [facility] Comment:Test performed at [facility] Urine specimen (specimen) URINE / Unknown 07/30/2017 15:17 EST 07/30/2017 15:27 EST Jalyn Pan MD POINT OF CAR E TEST ORDERABLES [facility] [address] [place] [address] documented in this encounter Visit Diagnoses Diagnosis Encounter for supervision of other normal in third trimester- Primary documented in this encounter Care Teams Food Service Technician Relationship Specialty Start Date End Date MgAbdoulaye gusman PCP - General 12/22/15 04/05/18 documented as of this encounter
--- OUTSIDE RECORDS SUMMARY | 2024-04-14 20:38 | XMS_ITS | Encounter Summary ---
Author Organization [facility] Address [address] [place] [address] Care Team Providers Care Mma Fighter Name Role Phone Abdoulaye Gonzalez Primary Care Provider [phone] Reason for Visit * Reason Comments Social Work Encounter Details Date Type Department Care Team (Late st Contact Info) Description 08/01/2017 Community Health Team [facility] OBGYN Services - [facility] [address] [place] [address] Lacie Cooper Social History Tobacco Use Types Packs/Day Years [...] as of this encounter Progress Notes * Lcaie Cooper - 08/01/2017 1030 EST Patient has not responded to outreach from . SW to make patient inactive. documented in this encounter Plan of Treatment [...] on filedocumented in this encounter Care Teams Mma Fighter Relationship Specialty Start Date End Date Abdoulaye Gonzalez PCP - General 12/22/15 04/05/18 documented as of this encounter
--- OUTSIDE RECORDS SUMMARY | 2024-04-14 20:38 | XMS_ITS | Encounter Summary ---
Author Organization [facility] Address [address] [place] [address] Care Team Providers Care Coverage Analyst Name Role Phone Abdoulaye Gonzalez Primary Care Provider [phone] Reason for Visit * Reason Comments Headache migraines Encounter Details Date Type Department Care Team (Late st Contact Info) Description 09/10/2017 11:30 EST Office Visit [facility] Adult Primary Care - [address] [id number] Abdoulaye Gonzalez [address] [place] [phone] Lightheaded (Primary Dx); Chronic migraine without aura without status migrainosus, not intractable; History of anemia Discharge Disposition: Auto Discharge Social History Tobacco [...] Sign Reading Time Taken Comments Blood Pressure 116/70 09/10/2017 1143 EST Pulse 88 09/10/2017 1143 EST Temperature 36.6 ??C (97.9 ??F) 09/10/2017 1143 EST Respiratory Rate 16 09/10/2017 1143 EST Oxygen Saturation - - Inhaled Oxygen Concentration - - Weight 86.6 kg (191 lb) 09/10/2017 1143 EST Height - - Body Mass Index 32.77 08/27/2017 1335 EST documented in this encounter [...] as of this encounter Discharge Diagnoses Diagnosis G43.909 Migraine, unspecified, not intractable, without status migrainosus-G43.909[ICD-10-CM] R42 Dizziness and giddiness-R42[ICD-10-CM] G43.709 Chronic migraine without aura, not intractable, without status migrainosus-G43.709[ICD-10-CM] Z86.2 Personal history of diseases of the blood and blood-forming organs and certain disorders involving the immune mechanism-Z86.2[ICD-10-CM] documented in this encounter Ordered Prescriptions Prescription Sig Dispensed Refills Start Date End Da te fluticasone (FLOVENT HFA) 110 mcg/actuation inhaler Inhale 1 Puff as directed every 12 hours. Reported on 11/04/2016 1 Inhaler 09/10/2017 albuterol 90 mcg/actuation inhaler Inhale 1 Puff as directed every 4 hours as needed for Wheezing. 1 Inhaler 11 09/10/2017 propRANolol (INDERAL) 20 mg tabletIndications:migrai ne prevention Take 1 Tab by mouth daily. 90 Tab 3 09/10/2017 sumatriptan (IMITREX) 50 mg tablet Take 1 Tab by mouth once as needed for up to 1 dose for Migraine. May repeat 1 in two hours if needed do not exceed more than 5 per month 9 Tab 11 09/10/2017 09/10/2017 documented in this encounter Discharge Disposition Disposition Code Departure Means Destination Auto Discharge documented in this encounter Progress Notes * Abdoulaye Gonzalez - 09/10/2017 1130 EST SUBJECTIVE: Chief Complaint Patient presents with ??? Headache migraines HPI: Gladys gave to her son Paul a month ago. Family is adjusting well, but Gladys has had more migraines this past month. Generalized pulsating headache at least 3 days a week, sometimesfocal over right forehead. Lasts at least a day. No nausea, but has been feeling more lightheaded. Migraines have been well controlled w/propranolol in the past, but she stopped taking this when shewas trying to get . Interested in restarting. Thinks she has taken sumatriptan in the past, but can't recall if it was helpful for abortive therapy. Patient Active Problem List Diagnosis ??? Endometriosis ??? ACL injury tear ??? Acute meniscal tear of knee ??? Depression ??? Abnormal Pap smear of cervix ??? Kidney stone ??? Mild persistent asthma without complication ??? Supervision of high-risk ??? Anxiety ??? Antepartum anemia ??? Tachycardia with greater than 160 beats per minute Current Outpatient Prescriptions on File Prior to Visit Medication Sig Dispense Refill ??? acetaminophen (TYLENOL) 325 mg tablet Take 2 Tabs by mouth every 4 hours as needed for Pain. ??? docusate sodium (COLACE) 100 mg capsule Take 1 Cap by mouth 2 times daily. (Patient not taking:Reported on 08/27/2017) 60 Cap 2 ??? ibuprofen (MOTRIN) 400 mg tablet Take 1 Tab by mouth every 4 hours as needed for Pain. ??? VITS62/FA/OM3/DHA/EPA ( GUMMY ORAL) Take by mouth daily. ??? sertraline (ZOLOFT) 50 mg tablet Please take 1/2 tab by mouth daily for 1 week and then increase to 1 tab by mouth daily. 90 Tab 1 No current facility-administered medications on file prior to visit. OBJECTIVE: BP 116/70 Pulse 88 Temp 36.6 ??C (97.9 ??F) (Tympanic) Resp 16 Wt 86.6 kg (191 lb) LMP 11/09/2016 Comment: Irregular cycles ? Yes BMI 32.77 kg/m2 General: Appears uncomfortable, fatigued, and pale Neuro: Gait normal. environmental health inspector 2-12 intact. Negative Romberg, negative pronator. ASSESSMENT and PLAN: Encounter Diagnoses Name Primary? Chronic migraine without aura without status migrainosus, not intractable One-time dose of IM toradol today. Restart propranolol today. Can take Imitrex at first sign of jiang. Pt is . Counseled to monitor baby for side effects. ??? Lightheaded Yes ??? History of anemia Check CBC and ferritin today. * Hetal Edouard LPN - 09/10/2017 1130 EST Patient Education Topic: ketorolac Method: Verbal Taught to: Patient Barriers: None Outcomes: verbalized understanding Hetal Edouard LPN 09/10/2017 13:53 documented in this encounter Plan of Treatment Not on file documented as of this encounter Goals Goal Patient Goal Type Associated Problems Recent Progress Patient-Stated? Author Blood Pressure < 130/80 Blood Pressure 118/78(2017 16:01 EDT) No Rina Agosto MD Weight Loss General Yes Rina Agosto MD Note: Goal = 145lbs documented as of this encounter Results * FERRITIN (09/10/2017 12:19 EST) Ferritin 13 10 - 291 ng/ml 09/11/2017 11:18 EST [facility] Blood specimen (specimen) BLOOD SPECIMEN / Unknown 09/10/2017 12:19 EST 09/10/2017 15:24 EST Narrative Authorizing Provider Result Mohamud Gonzalez CHEMISTRY & BLOOD GA S ORDERABLES [facility] [address] [place] [address] * (ABNORMAL) HEMAGRAM (09/10/2017 12:19 EST) WBC 8.40 4.0 - 12.4 K/cmm 09/10/2017 15:44 [facility] RBC 4.63 3.86 - 5.04 M/cmm 09/10/2017 15:44 [facility] Hemoglobin 11.0(L) 11.6 - 15.2 gm/dl 09/10/2017 15:44 [facility] HCT 35.5 34.9 - 44.4 % 09/10/2017 15:44 [facility] MCV 77(L) 81 - 98 fl 09/10/2017 15:44 [facility] MCH 23.8(L) 26.7 - 33.3 pg 09/10/2017 15:44 [facility] Hypochromia 1+ 09/10/2017 15:44 [facility] MCHC 31.0(L) 32.1 - 35.9 gm/dl 09/10/2017 15:44 [facility] RDW-CV 15.2(H) <14.7 % 09/10/2017 15:44 [facility] RDW-SD 42.0 <50.4 fl 09/10/2017 15:44 [facility] PLT 282 141 - 377 K/cmm 09/10/2017 15:44 [facility] MPV 11.2 9.5 - 12.7 fl 09/10/2017 15:44 [facility] Blood specimen (specimen) BLOOD SPECIMEN / Unknown 09/10/2017 12:19 EST 09/10/2017 15:24 EST Abdoulaye Gonzalez HEMATOLOGY & PF4 ORD ERABLES [facility] [address] [place] [address] documented in this encounter Visit Diagnoses Diagnosis Lightheaded- Primary Dizziness and giddiness Chronic migraine without aura without status migrainosus, not intractable Chronic migraine without aura, without mention of intractable migraine without mention of status migrainosus History of anemia Personal history of diseases of blood and blood-forming organs documented in this encounter Administered Medications Inactive Administered Medications - up to 3 most recent administrations Medication Order MAR Action Action Date Dose Rate Site ketOROLAC (TORADOL) injection 15 mg 15 mg, intramuscular, NOW X1, 1 dose, On Fri09/10/17 at 1400, Routine Given 09/10/2017 13:52 EST 15 mg Left D eltoid documented in this encounter Discontinued Medications Medication Sig Discontinue Reason Start Date End Da te HYDROmorphone (DILAUDID) 2 mg tablet Take 1-2 Tabs by mouth every 4 hours as needed for Pain. Daily Max: 24 mg 08/12/2017 09/10/2017 benzonatate (TESSALON) 100 mg capsule Take 1 Cap by mouth 3 times daily as needed for Cough. 08/13/2017 09/10/2017 predniSONE (DELTASONE) 20 mg tablet Take 2 Tabs by mouth daily. 08/13/2017 09/10/2017 sumatriptan (IMITREX) 50 mg tablet Take 1 Tab by mouth once as needed for up to 1 dose for Migraine. May repeat 1 in two hours if needed do not exceed more than 5 per month Reorder 03/19/2016 09/10/2017 albuterol 90 mcg/actuation inhaler Inhale 1 Puff as directed every 4 hours as needed for Wheezing. Reorder 11/04/2016 09/10/2017 documented as of this encounter Care Teams Coverage Analyst Relationship Specialty Start Date End Date MgAbdoulaye gusman PCP - General 12/22/15 04/05/18 documented as of this encounter
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
--- OUTSIDE RECORDS SUMMARY | 2024-04-14 20:38 | XMS_ITS | Encounter Summary ---
Author Organization [facility] Address [address] [place] [address] Care Team Providers Care Telephone Mechanic Name Role Phone Abdoulaye Gonzalez Primary Care Provider [phone] Reason for Visit * Reason Onset Date Comments Migraine 08/07/2017 Encounter Details Date Type Department Care Team (Late st Contact Info) Description 08/07/2017 Telephone [facility] OBGYN Services - [address] [id number] Cecelia Reece NP [facility] [address] [facility], [address] [place] [address] Migraine Social History Tobacco Use Types Packs/Day Years [...] encounter Miscellaneous Notes * Telephone Encounter - Cecelia Reece CNM - 08/07/2017 0156 EST Suzanne called for Gladys - woke up with a migraine. Cannot function- light and sound bothering her. I said it sounds like a migraine - did they have any of the compazine I prescribed for her the day before Thanksgi? Suzanne states they never picked it up because it knocks her out and she has to take care of her child at home. I suggested she would be unable to do that with a migraine. Told him the prescription for compazineshould be at the pharmacy and if they had any further concerns- they could call the office @ 830 when it opened and be evaluated there. Her BP was high - reported 138 and then Gladys retook it 132. And this was how she felt before she had her other child. Jose Angel called back - very angry and yelling on the phone - she feels she need evaluation - Juan and Elinor are watching over her - she does not want me touching her. I asked if she was requesting to go to L&D for evaluation? Yes -. but she did not want me. Passed this information to oncoming CNM and L&D. documented in this encounter Plan of Treatment [...] on filedocumented in this encounter Care Teams Telephone Mechanic Relationship Specialty Start Date End Date Abdoulaye Gonzalze PCP - General 12/22/15 04/05/18 documented as of this encounter
--- OUTSIDE RECORDS SUMMARY | 2024-04-14 20:38 | XMS_ITS | Encounter Summary ---
Author Organization [facility] Address [address] [place] [address] Care Team Providers Care Serology Technician Name Role Phone Carlos Abdoulaye Primary Care Provider [phone] Reason for Visit * Reason Comments Follow-up Acne vulgaris Encounter Details Date Type Department Care Team (Late st Contact Info) Description 10/28/2017 10:00 EDT Office Visit [facility] Dermatology 5th [facility] [address] [place], [place] [address] Sujatha Craven MD PhD [address] [facility], [address] [place] [address] Acne vulgaris (Primary Dx) Social History Tobacco Use Types [...] * Patient Instructions* Sujatha Craven MD - 10/28/2017 10:00 EDT Images from the original note were not included. Use Albolene moisturizing facial cleanser nightly. Then apply tretinoin evenly to face. Purchase 12 FL OZ pump bottle of CeraVe lotion. (or Cetaphil) Add entire tube of prescription tretinoin. Mix with a clean chop stick. Apply 1/2 pump at night. documented in this encounter Ordered Prescriptions Prescription Sig Dispensed Refills Start Date End Da te tretinoin (RETIN-A) 0.025 % cream Apply topically to affected area at bedtime. Apply a pea size amount to face once a night for acne. Do not apply immediately after washing, may sting. 45 g 1 10/28/2017 02/12/2018 documented in this encounter Progress Notes * Anna Blackmon - 10/28/2017 1000 EDT Review of Systems Constitutional: Negative for fatigue, [...] sleep disturbance. The patient is not nervous/anxious. Anna Blackmon 10/28/2017 10:12 * Marianna Sloan PA - 10/28/2017 1000 EDT [facility] - FOLLOW UP SUBJECTIVE: LAST VISIT: 04/29/2018 Gladys is a 27 y.o. female who presents today for follow up of acne. This has been a problem for years. Today is a poor day. She is currently breast feeding and will be until after July 2018. She currently has insurance but will be losing it at the end of the month. She is not using anything on her face other than Limelight cleansers and cosmetics and only washes her face once in the morning and sleeps with her makeup on at night. She feels that this all natural cosmetic line works betterthan the topical clindamycin gel. She does not use PanOxyl wash because it makes her face too dry. OTC products using: Limelight cleanser and cosmetics Prescription topicals: Not using clindamycin gel Prescription antibiotics : None Females: Mid-cycle or pre-menstrual flares: Just had baby boy and currently OCP? no Kyleena IUD inserted on 10/22/2017 OBJECTIVE: No apparent distress. Healthy appearing female sitting comfortably. Appropriate affect and demeanor. Skin exam: 1. Face (Cheeks, jaw line, forehead): inflammatory papules and few cysts along the jaw line, scarring on cheeks and chin 2. Neck: cysts along jaw line 3. Upper back/shoulders: none 4. Chest: two inflammatory papules, patient thinks is due to using new fragrance ASSESSMENT: 1. Acne - Inflammatory with few cysts PLAN: 1. Acne - Discussed difficulty of treating acne during and . Patient knows that Spironolactone works for her but that is not an option while . Discussed hypothetical risk of retinoid during . Will try Tretnoin 0.025% cream topically and see if her insurance will cover it. Discussed mixing Tretinoin with Cervae face moisturizer to reduce drying and irritation of her face. - Suggested using Albolene as a makeup remover and a moisturizer wash and to make sure that she washes her face in the morning and at night, specifically to remove her makeup before sleeping. - Patient will make an appointment for a follow up once she is done to discuss going on Spironolactone - Emphasized the importance of consistency and patience with treatment - Discussed the basic pathophysiology of acne, the role of genetics and hormones and the different medications and how they work. - Follow-up: once she is done breast feeding to discuss going back on Spironolactone - call with any questions or medication issues. AZRA FAULKNER 10:18 10/28/2017 Attestation Statement: I saw and examined the patient with the physician mobile unit assistant. I agree with the findings and plan of care documented in the resident's/fellow's note. Sujatha Craven MD Dermatology [facility] documented in this encounter Plan of Treatment [...] Primary Other acne documented in this encounter Historical Medications * This list may reflect changes made after this encounter. Medication Sig Dispensed Refills Start Date End Date levonorgestrel (KYLEENA) 17.5 mcg/24 hr (5 years) IUD 1 Each by intrauterine route Now. 06/01/2018 added in this encounter Care Teams Serology Technician Relationship Specialty Start Date End Date Abdoulaye Gonzalez PCP - General 12/22/15 04/05/18 documented as of this encounter
--- OUTSIDE RECORDS SUMMARY | 2024-04-14 20:38 | XMS_ITS | Encounter Summary ---
Author Organization [facility] Address [address] [place] [address] Care Team Providers Care Community Outreach Worker Name Role Phone Abdoulaye Gonzalez Primary Care Provider [phone] Encounter Details Date Type Department Care Team (Late st Contact Info) Description 08/07/2017 Orders Only [facility] OBGYN Services - [place] [address] [place], [place] [id number] Clara Barry RN -induced hypertension in third trimester (Primary Dx) Social History [...] No 06/23/2017 documented as of this encounter Plan of [...] Procedure Name Priority Date/Time Associated Diagnosis Comments PROTEIN/CREATININE RATIO, URINE STAT 08/07/2017 13:38 EST -induced hypertension in third trimester documented in this encounter Results * (ABNORMAL) PROTEIN/CREATININE RATIO, URINE (08/07/2017 13:38 EST) Tot Prot,Ur Random 12 mg/dl 08/07/2017 14:08 EST [facility] Creatinine, Urn [place] 20.1 mg/dl 08/07/2017 14:08 EST [facility] UPRO mg/mg Cr, Ur 0.60(H) <0.16 mg/mg Crea 08/07/2017 14:08 EST [facility] Urine specimen (specimen) URINE / Unknown 08/07/2017 13:38 EST 08/07/2017 13:43 EST Genia Peters NP CNM URINALYSIS ORD ERABLES [facility] [address] [place] [address] documented in this encounter Visit Diagnoses Diagnosis -induced hypertension in third trimester- Primary documented in this encounter Care Teams Community Outreach Worker Relationship Specialty Start Date End Date Abdoulaye Gonzalez PCP - General 12/22/15 04/05/18 documented as of this encounter
--- OUTSIDE RECORDS SUMMARY | 2024-04-14 20:38 | XMS_ITS | Encounter Summary ---
Author Organization [facility] Address [address] [place] [address] Care Team Providers Care Corporate Executive Chef Name Role Phone MgAbdoulaye gusman Primary Care Provider [phone] Reason for Visit * Reason Comments Routine Visit Encounter Details Date Type Department Care Team (Late st Contact Info) Description 07/23/2017 11:00 EST Routine [facility] OBGYN Services - [address] [phone] Siria Dixon NP [facility] [address] [facility], [address] [place] [address] GA: 36w4d Social History Tobacco Use Types Packs/Day Years [...] Sign Reading Time Taken Comments Blood Pressure 124/76 07/23/2017 1105 EST Pulse - - Temperature - - Respiratory Rate - - Oxygen Saturation - - Inhaled Oxygen Concentration - - Weight 97.1 kg (214 lb) 07/23/2017 1105 EST Height - - Body Mass Index 36.71 07/16/2017 1158 EST documented in this encounter [...] as of this encounter Progress Notes * Siria Dixon CNM - 07/23/2017 1100 EST S: Gladys Lopez is here today for a visit at 36w4d. Hgb POC 10.4. Tolerating FeSO4 well. Denies bleeding, loss of fluid or painful contractions. + FM. Trying to drink more fluids - H2O not working so has switched to gatorade - bought powder and doesn't make it full strength to reduce calories but give it taste. No further pain with kidney stones. O: Vitals: BP: 124/76 Weight : 97.1 kg (214 lb) Fundal Height (cm): 36 cm Heart Rate: 145 Movement: Present Presentation: Vertex A: 27 y.o. at 36w4d IUP H/O spinal H/A after epidural H/O kidney stones GBS neg Anemia P: Increase FeSO4 to BID if able Opioid form signed Follow up in 1 wks documented in this encounter Plan of Treatment [...] third trimester- Primary documented in this encounter Historical Medications * This list may reflect changes made after this encounter. Medication Sig Dispensed Refills Start Date End Date guaiFENesin (ROBITUSSIN) 100 mg/5 mL liquid Take 200 mg by mouth every 6 hours as needed. 08/13/2017 added in this encounter Care Teams Corporate Executive Chef Relationship Specialty Start Date End Date Abdoulaye Gonzalez PCP - General 12/22/15 04/05/18 documented as of this encounter
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
--- OUTSIDE RECORDS SUMMARY | 2024-04-14 20:38 | XMS_ITS | Encounter Summary ---
Author Organization [facility] Address [address] [place] [address] Care Team Providers Care Obiee Obia Solution Architect Name Role Phone Abdoulaye Gonzalez Primary Care Provider [phone] Reason for Visit * Reason Comments Routine Visit Encounter Details Date Type Department Care Team (Late st Contact Info) Description 08/06/2017 10:45 EST Routine [facility] OBGYN Services - [address] [id number] Earl Guadarrama, RESIDENT INSPECTOR [facility] [address] [facility], [address] [place] [id number] GA: 38w4d Social History Tobacco Use Types Packs/Day Years [...] Sign Reading Time Taken Comments Blood Pressure 132/76 08/06/2017 2113 EST Pulse - - Temperature - - Respiratory Rate - - Oxygen Saturation - - Inhaled Oxygen Concentration - - Weight 97.1 kg (214 lb) 08/06/2017 1057 EST Height 162.6 cm (5' 4.02) 08/06/2017 1057 EST Body Mass Index 36.71 08/06/2017 1057 EST documented in this encounter Functional Status [...] as of this encounter Progress Notes * Earl Guadarrama CNM - 08/06/2017 1045 EST S: Gladys Lopez is here today for a visit at 38w4d partner and son. Continues to feel miserable, has headache that goes from a 9/10 intensity to a 5/10 intensity with tylenol and continues to have blurry vision. Feels the same way she did before she was diagnosed with preeclampsia in first . Really wants to be mobile in labor and avoid magnesium this time. Interested in membrane sweep, might consider non-medical induction if membrane sweep doesn't work. Having lots of irregular contractions, wants cervix checked. Denies bleeding, loss of fluid or painful contractions.+ FM. O: Vitals: BP: 130/80, repeat 132/76 Height: 162.6 cm (64.02) Weight : 97.1 kg (214 lb) BMI: 36.791 Fundal Height (cm): 38 cm Heart Rate: 155 Movement: Present Presentation: Vertex Dilation: 2 Effacement (%): 50 Station: -2 Cervix medium consistency, mid-position A: 27 y.o. at 38w4d IUP S=D BP increasing but not elevated H/o preeclampsia Anemia H/o depression and anxiety P: S/sx PEC reviewed, advised to call if headache does not respond to tylenol or visual changes worsen Plan membrane sweep at 39w and discuss non-medically indicated IOL at next visit if cervix favorable Follow up in 3 days documented in this encounter Plan of Treatment [...] risk in third trimester- Primary Unspecified high-risk documented in this encounter Care Teams Obiee Obia Solution Architect Relationship Specialty Start Date End Date Abdoulaye Gonzalez PCP - General 12/22/15 04/05/18 documented as of this encounter
--- OUTSIDE RECORDS SUMMARY | 2024-04-14 20:38 | XMS_ITS | Encounter Summary ---
Author Organization [facility] Address [address] [place] [address] Care Team Providers Care Industrial Sweeper Cleaner Name Role Phone Abdoulaye Gonzalez Primary Care Provider [phone] Fiordaliza Hurt MD Primary Care Provider [phone] Unknown, Provider Primary Care Provider [phone] Encounter Details Date Type Department Care Team (Late st Contact Info) Description 10/22/2017 Telephone [facility] Primary Care - [address] [address] Abdoulaye Gonzalez [address] [place] [address] Social History Tobacco Use Types Packs/Day Years [...] on filedocumented in this encounter Care Teams Industrial Sweeper Cleaner Relationship Specialty Start Date End Date Abdoulaye Gonzalez PCP - General 12/22/15 04/05/18 Fiordaliza Hurt MD PCP - General 04/06/18 08/16/19 Unknown, MD Melinda PCP - General 05/09/21 documented as of this encounter
--- OUTSIDE RECORDS SUMMARY | 2024-04-14 20:38 | XMS_ITS | Encounter Summary ---
Author Organization [facility] Address [address] [place] [address] Care Team Providers Care Portfolio Management Marketing Name Role Phone MgAbdoulaye gusman Primary Care Provider [phone] Encounter Details Date Type Department Care Team (Late st Contact Info) Description 10/21/2017 Phlebotomy Only [facility] [address] [place] [address] Mail Reader, Outpatient Iron deficiency anemia, unspecified iron deficiency anemia type (Primary Dx) Social History Tobacco Use Types [...] Associated Diagnosis Comments COMPLETE BLOOD COUNT Routine 10/21/2017 11:59 EDT Iron deficiency anemia, unspecified iron deficiency anemia type FERRITIN Routine 10/21/2017 11:59 EDT Iron deficiency anemia, unspecified iron deficiency anemia type documented in this encounter Results * FERRITIN (10/21/2017 11:59 EDT) Ferritin 12 10 - 291 ng/ml 10/22/2017 10:06 EDT [facility] Blood specimen (specimen) BLOOD SPECIMEN / Unknown 10/21/2017 11:59 EDT 10/21/2017 13:41 EDT Abdoulaye Gonzalez CHEMISTRY & BLOOD GA S ORDERABLES [facility] [address] [place] [address] * (ABNORMAL) HEMAGRAM (10/21/2017 11:59 EDT) WBC 7.02 4.0 - 12.4 K/cmm 10/21/2017 13:53 EDT [facility] RBC 4.92 3.86 - 5.04 M/cmm 10/21/2017 13:53 EDT [facility] Hemoglobin 12.0 11.6 - 15.2 gm/dl 10/21/2017 13:53 EDT [facility] HCT 37.5 34.9 - 44.4 % 10/21/2017 13:53 EDT [facility] MCV 76(L) 81 - 98 fl 10/21/2017 13:53 EDT [facility] MCH 24.4(L) 26.7 - 33.3 pg 10/21/2017 13:53 EDT [facility] Hypochromia 1+ 10/21/2017 13:53 EDT [facility] MCHC 32.0(L) 32.1 - 35.9 gm/dl 10/21/2017 13:53 T [facility] RDW-CV 16.7(H) <14.7 % 10/21/2017 13:53 EDT [facility] RDW-SD 46.1 <50.4 fl 10/21/2017 13:53 T [facility] Anisocytosis 1+ 10/21/2017 13:53 EDT [facility] PLT 297 141 - 377 K/cmm 10/21/2017 13:53 T [facility] MPV 11.1 9.5 - 12.7 fl 10/21/2017 13:53 EDT [facility] Blood specimen (specimen) BLOOD SPECIMEN / Unknown 10/21/2017 11:59 EDT 10/21/2017 13:41 EDT Abdoulaye Gonzalez HEMATOLOGY & PF4 ORD ERABLES [facility] [address] [place] [address] documented in this encounter Visit Diagnoses Diagnosis Iron deficiency anemia, unspecified iron deficiency anemia type- Primary documented in this encounter Care Teams Portfolio Management Marketing Relationship Specialty Start Date End Date Abdoulaye Gonzalez PCP - General 12/22/15 04/05/18 documented as of this encounter
--- OUTSIDE RECORDS SUMMARY | 2024-04-14 20:38 | XMS_ITS | Encounter Summary ---
Author Organization [facility] Address [address] [place] [address] Care Team Providers Care Senior Business Consultant Name Role Phone Abdoulaye Gonzalez Primary Care Provider [phone] Reason for Visit * Reason Onset Date Comments Contractions 07/25/2017 Encounter Details Date Type Department Care Team (Late st Contact Info) Description 07/25/2017 Telephone [facility] OBGYN Services - [address] [address] Latisha Draper RN Contractions Social History Tobacco [...] Telephone Encounter - Latisha Draper, RN - 07/25/2017 1703 EST TC from Gladys at 36+6 weeks elizabeth every three minutes and thinks she might be in labor. Lots of back pain as well. Is currently driving in her car with her son to get his inhalers because he's been having a lot of asthma attacks. Denies ROM. Blanca Guardado CNM induction brazer, notified and will follow-up with Gladys. documented [...] filedocumented in this encounter Care Teams Senior Business Consultant Relationship Specialty Start Date End Date Abdoulaye Gonzalez PCP - General 12/22/15 04/05/18 documented as of this encounter
--- OUTSIDE RECORDS SUMMARY | 2024-04-14 20:38 | XMS_ITS | Encounter Summary ---
Author Organization [facility] Address [address] [place] [address] Care Team Providers Care Marketing Programs Specialist Name Role Phone MgAbdoulaye gusman Primary Care Provider [phone] Reason for Referral * (Routine) - Closed Specialty Diagnoses / Procedures Referred By Gregory velez Referred To Contact Elinor Borrero NP CNM [address] [address] Referral ID Status Reason Start Date Expiration Date V isits Requested Visits Authorized [id number] Closed Specialty Services Required 07/27/2017 1 1 Comments See your child day care teacher for your next scheduled visit. * (Routine) - Closed Specialty Diagnoses / Procedures Referred By Gregory velez Referred To Contact Elinor Borrero NP CNM [address] [phone] Referral ID Status Reason Start Date Expiration Date V isits Requested Visits Authorized [id number] Closed Specialty Services Required 07/27/2017 1 1 Encounter Details Date Type Department Care Team (Late st Contact Info) Description 07/27/2017 14:50 EST - 07/27/2017 15:59 EST Hospital Encounter [facility] [address], [place] [id number] Aga Avilez MD [address] [facility] [address] [place] [address] Jalyn Pan MD 111 [facility], [address] [place] [address] Supervision of high risk , antepartum (Primary Dx) Discharge Disposition: Home or Self [...] Sign Reading Time Taken Comments Blood Pressure 128/73 07/27/2017 1510 EST Pulse - - Temperature 35.9 ??C (96.6 ??F) 07/27/2017 1510 EST Respiratory Rate 16 07/27/2017 1510 EST Oxygen Saturation - - Inhaled Oxygen [...] as of this encounter Discharge Diagnoses Diagnosis O47.1 False labor at or after 37 completed weeks of gestation-O47.1[ICD-10-CM] O99.513 Diseases of the respiratory system complicating , third trimester-O99.513[ICD-10-CM] J45.909 Unspecified asthma, uncomplicated-J45.909[ICD-10-CM] Z87.898 Personal history of other specified conditions-Z87.898[ICD-10-CM] Z3A.37 37 weeks gestation of -Z3A.37[ICD-10-CM] documented in this encounter Medications at Time [...] Take 81 mg by mouth daily. 08/13/2017 benzonatate (TESSALON) 100 mg capsule Take 1 Cap by mouth 2 times daily as needed for Cough. 14 Cap 07/27/2017 08/07/2017 DIPHENHYDRAMINE HCL (BENADRYL ORAL) Take by mouth [...] Dispensed Refills Start Date End Da te benzonatate (TESSALON) 100 mg capsule Take 1 Cap by mouth 2 times daily as needed for Cough. 14 Cap 07/27/2017 08/07/2017 documented in this encounter Discharge Disposition Disposition Code Departure Means Destination Home or Self Care documented in this encounter Progress Notes * Elinor Borrero CNM - 07/27/2017 1518 EST L&D Triage Note C/C: SROM and labor check Gladys Lopez is a 27 y.o. @ 37w1d by a 6wk U/S c/w LMP presents for SROM and labor check. HPI: Contractions x 2 days, says they are q 5 mins. Minimal sleep. Talking through them. Saw PCP this morning for sore throat, cough, nasal congestion. Cough keeping her up at night. Neg rapid strep test. Says nasal discharge is green. Was not given antibiotics by PCP. Last took Tylenol at 0800 this morning. Reports leaking scant amounts of clear fluid with coughing today. Pad and underwear but maybe a little damp? Has had 2 glasses of water today. Stressed at home - 2yo is sick, just took in son's older child who may be autistic, is working a lot, no local family or friend support. Says she wants to go home to take a bath and nap while is with the kids. Denies body aches, fever, bleeding, SANTIAGO, visual changes, epigastric pain, urinary or bowel changes. +FM. O: BP 128/73 Temp 35.9 ??C (96.6 ??F) (Tympanic) Resp 16 LMP 11/09/2016 Comment: Irregular cycles Gen: NAD FHT: 125bpm baseline, mod variability, + accels, no decels; Category 1 tracing [place]: irritability SSE: neg pooling / neg ferning / neg nitrizine, no fluid from cervix with valsalva, physiologic discharge SVE: 1cm / 50% / -2 station / posterior (unchanged) Bedside U/S: deferred A: Gladys Lopez is a 27 y.o. @ 37w1d Cat 1 NST No evidence of ROM or labor Likely viral URI BMI 35 Asthma Hx PEC Hx kidney stones RH pos / GBS neg P: -felt ready to go home to rest, PO hydrate after evaluation -encouraged Tylenol 650mg PO q 4 hours PRN, rest, warm baths -Tessalon Perles 100mg BID PRN e-scripted; continue Robitussin at HS if this helps with cough -reviewed warning signs/when to call including stronger more freq contractions, LOF, bleeding, decreased FM, fever, chills, inability to keep down food or fluids, worsening symptoms, questions/concerns -f/u for next scheduled APV, sooner PRN -denies questions Elinor Borrero CNM 07/27/2017 15:18 * Yeimy Sanders, STACEY - 07/27/2017 1506 EST at 37w1d arrives reporting possible LOF 0800, felt a trickle of fluid while sneezing, additional trickling throughout day, feeling very uncomfortable with a lot of pressure, also complains of sore throat and coughing, sneezing, PO fluids provided and encouraged, monitors placed for NST 1525 DAMASO Borrero in, FHR cat 1 and reactive, monitors removed 1530 SSE, neg pooling, neg nitrazine 1534 SVE by DAMASO Borrero, /, posterior documented in this encounter Plan of Treatment Scheduled Referrals Name Type Priority Associated Diagnoses Order Schedule PROVIDER FOLLOW-UP INSTRUCTIONS Outpatient Referral Routine Ordered: 07/27/2017 PROVIDER FOLLOW-UP INSTRUCTIONS Outpatient Referral Routine Ordered: 07/27/2017 documented as of this encounter Goals Goal Patient Goal Type Associated Problems Recent Progress Patient-Stated? Author Blood Pressure < 130/80 Blood Pressure 118/78(2017 16:01 EDT) No Rina Agosto MD Weight Loss General Yes Rina Agosto MD Note: Goal = 145lbs documented as of this encounter Visit Diagnoses Diagnosis Supervision of high risk , antepartum- Primary Supervision of high-risk Unspecified high-risk documented in this encounter Orders Diet Count Last Ordered Date First Orde red Date DISCHARGE DIET 2 07/27/2017 Nursing Count Last Ordered Date First Orde red Date ACTIVITY INSTRUCTIONS 1 07/27/2017 BATHING INSTRUCTIONS 1 07/27/2017 Admission Count Last Ordered Date First Orde red Date STATUS: OUTPATIENT OBSERVATION SERVICES 1 1 09/27/2016 Transfer Count Last Ordered Date First Orde red Date NOTIFY PPS OF DISCHARGE COMPLETE 1 07/27/20 17 Discharge Count Last Ordered Date First Orde red Date DISCHARGE PATIENT 1 07/27/2017 Legal Count Last Ordered Date First Orde red Date MISCELLANEOUS DISCHARGE INSTRUCTIONS 1 07/11 documented in this encounter Care Teams Marketing Programs Specialist Relationship Specialty Start Date End Date Abdoulaye Gonzalez PCP - General 12/22/15 04/05/18 documented as of this encounter
--- OUTSIDE RECORDS SUMMARY | 2024-04-14 20:39 | XMS_ITS | Encounter Summary ---
Author Organization [facility] Address [address] [place] [address] Care Team Providers Care Account Specialist Name Role Phone Abdoulaye Gonzalez Primary Care Provider [phone] Reason for Visit * Reason Comments Routine Visit pt reports that s he is feeling a lot of downward pressure Migraine Weight Loss Encounter Details Date Type Department Care Team (Late st Contact Info) Description 07/02/2017 10:15 EST Routine [facility] O[facility]YN Services - [address] [id number] Elinor Borrero NP [facility] [address] [facility], [address] [place] [address] GA: 33w4d Social History Tobacco Use Types Packs/Day Years [...] Sign Reading Time Taken Comments Blood Pressure 126/84 07/02/2017 1012 EST Pulse - - Temperature - - Respiratory Rate - - Oxygen Saturation - - Inhaled Oxygen Concentration - - Weight 95.8 kg (211 lb 3.2 oz) 07/02/[address] Height 162.6 cm (5' 4.02) 07/02/2017 1012 EST Body Mass Index 36.23 07/02/2017 1012 EST documented in this encounter Functional Status [...] of this encounter Progress Notes * Elinor Borrero, DAMASO - 07/02/2017 1015 EST S: Gladys Lopez is here today for a visit at 33w4d. Here with fussy son and . Reports migraines over the last 3 days. Had had them prior to . Used to take Excedrin with relief. Has tried 325mg Tylenol and resting which helped but SANTIAGO did not resolve. Occ sees flashinglights. Also reports increased vaginal pressure over last few days. Feels baby has dropped. Has a support belt at home but hasn't tried it. Has not been taking Fe supplement. Denies RUQ pain, edema, bleeding, loss of fluid or painful contractions. + FM. O: Vitals: BP: 126/84 Height: 162.6 cm (64.02) Weight : 95.8 kg (211 lb 3.2 oz) BMI: 36.31 Fundal Height (cm): 34 cm Heart Rate: nst Movement: Present Presentation: Vertex FHR 160s-170s by Doppler Repeat BP 130/82, no edema 31w EFW 51%tile 06/23/17 Hgb 9.3, Hct 27 A: 27 y.o. at 33w4d IUP S>D, AGA at 31w BMI 35 Hx PEC - taking ASA daily, normotensive today Migraine Hx kidney stones Hx depression/anxiety Asthma Anemia Rh pos P: Growth scans scheduled To NST after this visit Discussed importance of Fe supplement and Fe rich foods / avoiding anemia at time of delivery. Pt to buy ferrous sulfate today. Advised to take BID with colace and separate from Fe rich foods. RepeatHgb in 3-4 weeks. Home to try 1g Tylenol, ice to forehead, dark room, caffeine for SANTIAGO - advised to call later today if this does not provide relief or with any other warning signs / symptoms PEC. Follow up in 1 wk for APV and BP check, sooner PRN documented in this encounter Plan of Treatment Not on file documented as of this encounter Goals Goal Patient Goal Type Associated Problems Recent Progress Patient-Stated? Author Blood Pressure < 130/80 Blood Pressure 118/78(2017 16:01 EDT) No Rina Agosto MD Weight Loss General Yes Rina Agosto MD Note: Goal = 145lbs documented as of this encounter Visit Diagnoses Diagnosis Supervision of other high risk pregnancies, third trimester- Primary tachycardia affecting management of mother Abnormality in heart rate/rhythm, unspecified as to episode of care or not applicable documented in this encounter Care Teams Account Specialist Relationship Specialty Start Date End Date Abdoulaye Gonzalez PCP - General 12/22/15 04/05/18 documented as of this encounter
--- OUTSIDE RECORDS SUMMARY | 2024-04-14 20:39 | XMS_ITS | Encounter Summary ---
Author Organization [facility] Address [address] [place] [address] Care Team Providers Care Law Enforcement Instructor Name Role Phone Abdoulaye Gonzalez Primary Care Provider [phone] Reason for Visit * Reason Onset Date Comments Contractions 07/09/2017 Encounter Details Date Type Department Care Team (Late st Contact Info) Description 07/09/2017 Telephone [facility] OBGYN Services - [address] [address] Clara Barry RN Contractions Social History Tobacco Use Types [...] encounter Miscellaneous Notes * Telephone Encounter - Clara Barry, RN - 07/09/2017 1020 EST TC from Gladys at 34+4 who reports experiencing ctx q 5 min which are 40 seconds in duration and have been consistent x 2 hrs. No better with rest and pt states she is adequately hydrated. Stated that she had a big gush of fluid after peeing last night that went all over the floor. +FM. Denies bleeding. Cath Lab Nurse cork insulation installer notified who requests Gladys come in for a labor check. Pt on her way into L&D for further assessment. documented in this encounter Plan of Treatment [...] on filedocumented in this encounter Care Teams Law Enforcement Instructor Relationship Specialty Start Date End Date Abdoulaye Gonzalez PCP - General 12/22/15 04/05/18 documented as of this encounter
--- OUTSIDE RECORDS SUMMARY | 2024-04-14 20:39 | XMS_ITS | Encounter Summary ---
Author Organization [facility] Address [address] [place] [address] Care Team Providers Care Cloud Operations Engineer Name Role Phone Abdoulaye Gonzalez Primary Care Provider [phone] Reason for Referral * (Routine) - Closed Specialty Diagnoses / Procedures Referred By Gregory velez Referred To Contact Renetta Knapp MD [address] [place] [address] Referral ID Status Reason Start Date Expiration Date V isits Requested Visits Authorized [id number] Closed Specialty Services Required 07/11/2017 1 1 Reason for Visit * Reason Comments Abdominal Pain Diarrhea Nausea Back Pain Fatigue Encounter Details Date Type Department Care Team (Late st Contact Info) Description 07/10/2017 18:02 EST - 07/11/2017 7:20 EST Hospital Encounter [facility] [address] [place] [address] Renetta Flor MD [address] [facility], [address] [place] [id number] uterine contractions in third trimester, antepartum Discharge Disposition: Home or Self Care Social [...] Sign Reading Time Taken Comments Blood Pressure 108/69 07/11/2017 0615 EST Pulse - - Temperature 35.9 ??C (96.6 ??F) 07/11/2017 0426 EST Respiratory Rate 16 07/11/2017 0615 EST Oxygen Saturation 100% 07/10/20172008 EST Inhaled Oxygen Concentration - - Weight - [...] O26.893 Other specified related conditions, third trimester-O26.893[ICD-10-CM] R19.7 Diarrhea, unspecified-R19.7[ICD-10-CM] R11.0 Nausea-R11.0[ICD-10-CM] Z3A.34 34 weeks gestation of -Z3A.34[ICD-10-CM] documented in this encounter Medications at Time [...] Take 81 mg by mouth daily. 08/13/2017 clindamycin (CLEOCIN T) 1 % lotion Apply topically twice a week. use thin film on affected area 60 mL 2 05/01/2017 07/13/2017 DIPHENHYDRAMINE HCL (BENADRYL ORAL) Take by mouth as needed. 08/13/2017 ondansetron (ZOFRAN) 4 mg tablet Take 1 Tab by mouth every 8 hours as needed for Nausea. 6 Tab 06/21/2017 07/16/2017 VITS62/FA/OM3/DHA/EPA ( GUMMY ORAL) Take by mouth daily. 02/12/2018 prochlorperazine (COMPAZINE) 5 mg tablet Take 1 Tab by mouth every 4 hours. For headache 20 Tab 07/02/2017 07/13/2017 sumatriptan (IMITREX) 50 mg tablet Take 1 [...] in this encounter Progress Notes * Elinor Borrero, DAMASO - 07/10/2017 210 EST L&D Triage Note C/C: diarrhea Gladys Reno is a 27 y.o. @ 34w5d by LMP HPI: Gladys presents due to frequent watery diarrhea since 0400 this AM. It came on suddenly and she has had 20+ bouts throughout the day. She also has a headache and feels like she may be having fevers and chills. She has been nauseated but has not had any vomiting. No appetite today so hasn't eaten anything but has tolerated >1L of josie delores orally. No cp/sob/dysuria/hematuria. Has started having some painful ctx which are becoming worse now. No LOF or VB. Good FM. No sick contacts. Shehas had C.Diff in the past and is worried this could be the same again. That time was in the context of recent abx use, but this time she has not had any recent abx or hospitalizations, though she kamille frequent visitor to L&D for evaluations for various complaints. O: BP 116/65 Temp 37.8 ??C (100 ??F) (Tympanic) Resp 20 LMP 11/09/2016 Comment: Irregular cycles SpO2 100% FHT: 130 baseline, mod variability, + accels, no decels; Category I tracing [facility]: ctx q7 min SSE: n/a SVE: 1/very long/high Bedside U/S: cephalic Gen: Appears fatigued, diaphoretic, very uncomfortable and breathing heavily with ctx CV: RRR Resp: CTAB Abd: Soft, diffuse mild TTP but no rebound or guarding, no fundal tenderness, + BS Ext: WWP, NTTP, no edema Results for GLADYS RENO ( ) as of 07/10/2017 21:49 Ref. Range 07/10/2017 19:48 Sodium Latest Ref Range: 136 - 145 mEq/L 136 Potassium Latest Ref Range: 3.5 - 5.0 mEq/L 3.8 CO2 Latest Ref Range: 22 - 32 mEq/L 17 (L) Chloride Latest Ref Range: 96 - 110 mEq/L 107 WBC Latest Ref Range: 4.0 - 12.4 K/cmm 7.92 RBC Latest Ref Range: 3.86 - 5.04 M/cmm 4.38 Hemoglobin Latest Ref Range: 11.6 - 15.2 gm/dl 11.8 HCT Latest Ref Range: 34.9 - 44.4 % 34.5 (L) MCV Latest Ref Range: 81 - 98 fl 79 (L) MCH Latest Ref Range: 26.7 - 33.3 pg 26.9 MCHC Latest Ref Range: 32.1 - 35.9 gm/dl 34.2 RDW-CV Latest Ref Range: <14.7 % 14.9 (H) RDW-SD Latest Ref Range: <50.4 fl 42.3 PLT Latest Ref Range: 141 - 377 K/cmm 198 MPV Latest Ref Range: 9.5 - 12.7 fl 11.8 C. Diff: negative A/P: Gladys Reno is a 27 y.o. @ 34w5d presenting with diarrhea and contractions. Oninitial evaluation, she is afebrile with a normal white blood cell count but is persistently very tachycardic to HR 120s bpm and feels very unwell with body aches and painful contractions. She continues to have watery diarrhea and has been unable to eat food all day (though has tolerated po fluids). Her contractions are growing increasingly intense though her cervix feels unlabored. Will plan to keep overnight on L&D in triage and will observe for trajectory of illness. Highest item on the differential is viral gastrointestinal illness and dehydration contributing to uterine activi ty, though less likely etiologies could be sepsis related to listeria, atypical presentation of appendicitis, or labor. If she worsens, would likely need to collect blood cultures and pursue workup for these other items on the differential. -2L IVF bolus, then maintenance IVF -Encourage po intake, zofran and benadryl for nausea -repeat SVE if continues to contract painfully -Monitor vitals q1h Discussed with Elinor Borrero CNM and MD Renetta Maurer MD 07/10/2017 21:02 Addendum: Diarrhea resolved overnight. No further n/v. Tolerated po toast. HR resolved to low 100s bpm. Abdomen soft, NTTP now. Ctx very infrequent now, FHT Cat I persistently. SVE unchanged. D/c home with precautions as suspect only GI viral illness. Renetta Knapp MD 07/11/2017 6:22 Obstetrics & Gynecology, PGY-3 Pager [phone] Attestation statement: I saw and examined the patient with the resident/fellow. I agree with the findings and plan of care documented in the resident's/fellow's note. Discussed pt with Mallory throughout her admission. One episode of diarrhea shortly after arrival, resolved. No emesis. Able to hydrate PO and tolerate toast / crackers. Slept overnight. Contractions decreased in intensity and frequency. HR improved. SVE unchanged. Appeared well and felt ready to go home. Discharged with precautions/ warning signs. F/u for scheduled APV next week, sooner PRN. Elinor Borrero CNM 8:02 07/11/17 * Razia Metz RN - 07/10/20172000 EST 1930 - assumed care; unable to obtain IV access; placed order for IV team. Pt reports intermitted sharp pain in her lower abdomen, pelvis area and low back. Mild ctx palpated at the time of pain. Pt flushed, warm and tachycardiac. LS clear. Pending cdiff and influenza/rsv swab. FHR 150 w/moderate variability, no accels or decels. Pt sipping on water and trying to eat a cracker after receiving zofran. FORonald and their 2 yr old son in room. 1999 - brick cleaner placed IV and labs collected and sent. Bolus infusing. Pt anxious to take tyln. 2105 - pt states my body is burning. T-37.8. Tyln administered. Pt conts to feel ctx. Will obtainUA when pt urinates. 21:32 pt up to void. Urine dark, len. No diarrhea. 2134 - MD Knapp at bedside, SVE 1/0. Plan is for pt to rest here and wait for tyln to settle and take benadryl as what she takes at bed. 2199 - pt reports ctx feel stronger; ctx palpating mild to moderate. MD Knapp notified. 22:24 MD Knapp at bedside requesting that pt stay the night. Pt agreeable to staying; fob and son going home. Pt very concerned that kade's ex girlfriend is having a c/s tomorrow. KADE has son with ex girlfriend. Pt trying some toast. 22:50 US in progress. Pt states she was able to eat the toast. 23:05 pt up to void; 125 ml of len urine; N/V/D Encouraging PO intake. IVF running. 0:08 pt asleep; will take VS when pt up to void. 0:31 Reviewed plan w/MD Knapp; let pt sleep and d/c in am. 0100 - woke pt to adjust monitors; pt states she is still feeling some ctx but is feeling better. Denies needs. 0210 - BP 88/74 w/HR 98. Pt awake to reposition and back to sleep. MD Knapp notified. 2:44 up to void. Urine remains len; pt drank some more water. No N/V/D. 0418 - up to void; 475 ml of food service director len urine. No N/V/D. 6:12 SVE by MD Knapp; unchanged. Pt ok to go home when ride available. Pt up to void and had a smallamt of diarrhea and would like to take imodium now. 7:02 D/C complete; pending arrival of fob and imodium. 7:22 pt left in WC accompanied by fob Suzanne and son. * Echo Stone RN - 07/10/2017 1815 EST 1800 - pt arrived from urgent care with c/o nausea, malaise, body pain, headache, back pain, abd cramping, :sore to touch everywhere and diarrhea since 0400. Pt states last med was Tylenol 1000 mg around 1400. Pt states I don't know if the back pain and abd pain are him moving or what. Pt into room 7, EFM applied. Pt states I don't want to say I'm in a lot of pain, I'm just so uncomfortable 7-03/20 with abd being the worst discomfort. 1844 - Dr Knapp and Shannon Borrero CNM in to see pt 1854 - plan for zofran po, oral hydration, try crackers, and test stool for c-diff. 1924 - iv attempt unsuccessful. documented in this encounter Miscellaneous Notes * Plan of Care - Razia Metz RN - 07/11/2017 0657 EST Problem: Daily Care Plan Goals Goal: Care Plan Documentation Outcome: Met This Shift 07/10/17 1930 Care Plan Focus Area of Focus Pain/ Comfort Goal This Shift pt report decreased discomfort Nursing Discharge Note D: Patient noted with discharge orders to: home. A: Reviewed discharge instructions and prescriptions with Patient IV d/c'd. Belongings collected and sent home with patient. R: Patient verbalized understanding of discharge instructions and denied further questions. Razia Metz RN 07/11/2017 6:57 documented in this encounter Plan of Treatment Scheduled Referrals Name Type Priority Associated Diagnoses Order Schedule PROVIDER FOLLOW-UP INSTRUCTIONS Outpatient Referral Routine Ordered: 07/11/2017 documented as of this encounter Goals Goal Patient Goal Type Associated Problems Recent Progress Patient-Stated? Author Blood Pressure < 130/80 Blood Pressure 118/78(2017 16:01 EDT) No Rina Agosto MD Weight Loss General Yes Rina Agosto MD Note: Goal = 145lbs documented as of this encounter Procedures Procedure Name Priority Date/Time Associated Diagnosis Comments LD US LIMITED OB SCAN Routine 07/11/2017 4:27 EST COMPLETE BLOOD COUNT STAT 07/10/2017 19:48 EST ELECTROLYTES STAT 07/10/2017 19:48 EST C. DIFFICILE PCR STAT 07/10/2017 18:5 5 EST URINE CULTURE IF POSITIVE Routine 07/10/2017 18:45 EST URINE CHEMICAL (DIP) & SEDIMENT (MICRO) WITHOUT REFLEX TO CULTURE STAT 07/10/2017 18:45 EST documented in this encounter Results * LD US LIMITED OB SCAN (07/11/2017 4:27 EST) Anatomical Region Laterality Modality Other 07/11/2017 4:27 EST 08/01/2017 10:21 EST Narrative 08/01/2017 10:21 EST Indication contractions. History ======= General History Height 163 cm Height (ft) ?5 ft Height (in) ?4 in Previous Outcomes ?2 Para ?? 1 [place] children born (T) ?1 [place] children born (P) ?0 Abortions (A) ??0 [place] living children (L) ??1 Number of fetuses: 1. Maternal Assessment Height 163 cm Height (ft) ?5 ft Height (in) ?4 in Physical Exam Initial weight 94 kg Initial weight (lb) ?208 lb Initial BMI ?35.70 kg/m? Dating ======= Assigned: ??Dating performed on 12/27/2016 Based on the LMP Assigned GA ?34 w + 5 d Assigned AMA: ??08/16/2017 General Evaluation Cardiac activity: Present. FHR 143 bpm. movements: visualized. Presentation: cephalic. Placenta: posterior. Amniotic fluid: Amount of AF: normal. MVP 6.1 cm. LEOPOLDO 19.5 cm. Q1 4.6 cm, Q2 6.1 cm, Q3 5.1 cm, Q4 3.6 cm. Method ======== Voluson E10, Transabdominal ultrasound examination. View: Sufficient. Impression [id number] Limited obstetrical ultrasound This is a milan gestation. The anatomy was not reviewed in detail. movement was noted. The amniotic fluid volume appears normal. Follow-up Follow-up as clinically indicated. DATE OF SERVICE: 07/10/2017 Procedure Note Renetta Flor MD - 08/01/2017 Indication contractions. History ======= General History Height 163 cm Height (ft) 5 ft Height (in) 4 in Previous Outcomes 2 Para 1 [place] children born (T) 1 [place] children born (P) 0 Abortions (A) 0 [place] living children (L) 1 Number of fetuses: 1. Maternal Assessment Height 163 cm Height (ft) 5 ft Height (in) 4 in Physical Exam Initial weight 94 kg Initial weight (lb) 208 lb Initial BMI 35.70 kg/m? Dating ======= Assigned: Dating performed on 12/27/2016 Based on the LMP Assigned GA 34 w + 5 d Assigned AMA: 08/16/2017 General Evaluation Cardiac activity: Present. FHR 143 bpm. movements: visualized. Presentation: cephalic. Placenta: posterior. Amniotic fluid: Amount of AF: normal. MVP 6.1 cm. LEOPOLDO 19.5 cm. Q1 4.6 cm, Q2 6.1 cm, Q3 5.1 cm, Q4 3.6 cm. Method ======== Voluson E10, Transabdominal ultrasound examination. View: Sufficient. Impression [id number] Limited obstetrical ultrasound This is a milan gestation. The anatomy was not reviewed in detail. movement was noted. The amniotic fluid volume appears normal. Follow-up Follow-up as clinically indicated. DATE OF SERVICE: 07/10/2017 Renetta Knapp MD [facility] LD ORDERABLES * (ABNORMAL) ELECTROLYTES (07/10/2017 19:48 EST) Sodium 136 136 - 145 mEq/L 07/10/2017 20:48 [facility] Potassium 3.8 3.5 - 5.0 mEq/L 07/10/2017 20:48 [facility] Chloride 107 96 - 110 mEq/L 07/10/2017 20:48 [facility] CO2 17(L) 22 - 32 mEq/L 07/10/2017 20:48 [facility] Blood specimen (specimen) BLOOD SPECIMEN / Unknown 07/10/2017 19:48 EST 07/10/2017 20:24 EST Vielka Tejada MD CHEMISTRY & BLOOD GA S ORDERABLES [facility] [address] [place] [address] * (ABNORMAL) HEMAGRAM (07/10/2017 19:48 EST) WBC 7.92 4.0 - 12.4 K/cmm 07/10/2017 20:32 [facility] RBC 4.38 3.86 - 5.04 M/cmm 07/10/2017 20:32 [facility] Hemoglobin 11.8 11.6 - 15.2 gm/dl 07/10/2017 20:32 [facility] HCT 34.5(L) 34.9 - 44.4 % 07/10/2017 20:32 [facility] MCV 79(L) 81 - 98 fl 07/10/2017 20:32 [facility] MCH 26.9 26.7 - 33.3 pg 07/10/2017 20:32 [facility] MCHC 34.2 32.1 - 35.9 gm/dl 07/10/2017 20:32 [facility] RDW-CV 14.9(H) <14.7 % 07/10/2017 20:32 [facility] RDW-SD 42.3 <50.4 fl 07/10/2017 20:32 [facility] PLT 198 141 - 377 K/cmm 07/10/2017 20:32 [facility] MPV 11.8 9.5 - 12.7 fl 07/10/2017 20:32 [facility] Blood specimen (specimen) BLOOD SPECIMEN / Unknown 07/10/2017 19:48 EST 07/10/2017 20:24 EST Vielka Tejada MD HEMATOLOGY & PF4 ORD ERABLES [facility] [address] [place] [address] * C. DIFFICILE PCR (07/10/2017 18:55 EST) Result Negative 07/10/2017 22:38 EST [facility] Stool specimen (specimen) STOOL SPECIMEN / Unknown 07/10/2017 18:55 EST 07/10/2017 19:23 EST Vielka Tejada MD MICROBIOLOGY - GENER AL ORDERABLES [facility] [address] [place] [address] * URINE CULTURE IF UA POSITIVE - NON POCT URINALYSIS ONLY (07/10/2017 18:45 EST) Culture if Indicated Culture not indicated by urinalysis results. 07/10/2017 22:04 [facility] Urine specimen (specimen) TOPOGRAPHY UNKNOWN / Unknown 07/10/2017 18:45 EST 07/10/2017 21:55 EST Vielka Tejada MD MICROBIOLOGY - GENER AL ORDERABLES [facility] [address] [place] [id number] * (ABNORMAL) UA, CHEMICAL AND SEDIMENT ANALYSIS (DIPSTICK AND MICROSCOPIC) (07/10/2017 18:45 EST) Color, UA Yellow 07/10/2017 22:04 [facility] Clarity, UA Clear 07/10/2017 22:04 [facility] Glucose, UA Neg Neg 07/10/2017 22:04 [facility] Bilirubin, UA Neg Neg 07/10/2017 22:04 [facility] Ketones, UA 3+(AA) Neg 07/10/2017 22:04 [facility] Refractometer SG,Urine 1.016 1.001 - 1.035 07/10/2017 22:04 [facility] Blood, UA Neg Neg 07/10/2017 22:04 [facility] pH, UA 5.5 4.6 - 8.0 07/10/2017 22:04 [facility] Protein, UA Neg Neg 07/10/2017 22:04 [facility] Urobilinogen, UA Normal Normal E.U./dl 07/10/2017 22:04 [facility] Nitrite, UA Neg Neg 07/10/2017 22:04 [facility] Leuk Esterase Neg Neg 07/10/2017 22:04 [facility] UA Method Used 07/10/2017 18:44 [facility] Comment: Testing performed using Ocelus [id number]. Urine RBC Count Automated 3 to 10(A) 0 to 2 /HPF 07/10/2017 22:04 [facility] Urine WBC Count Automated 0 to 3 0 to 3 /HPF 07/10/2017 22:04 EST [facility] Urine Squamous Epithelial Cell Count, Automated None seen None seen /LPF 07/10/2017 22:04 EST [facility] Urine Hyaline Casts, Automated < or = 10 < or = 10 /LPF 07/10/2017 22:04 EST [facility] Urine Bacteria Count, Automated None seen None seen 07/10/2017 22:04 EST [facility] UA Comment Sediment results 07/10/2017 22:04 EST [facility] Comment: are unreliable on urines unrefrig >2hrs or refrig >8hrs. Urine specimen (specimen) URINE / Unknown 07/10/2017 18:45 EST 07/10/2017 21:55 EST Vielka Tejada MD URINALYSIS ORDERABLE S Performing Organization Address City/State/[facility] Co de Phone Number [facility] [address] [place] [address] documented in this encounter Visit Diagnoses Diagnosis Supervision of high-risk - Primary Unspecified high-risk uterine contractions in third trimester, antepartum documented in this encounter Administered Medications Inactive Administered Medications - up to 3 most recent administrations Medication Order MAR Action Action Date Dose Rate Site acetaminophen (TYLENOL) tablet 1,000 mg 1,000 mg, oral, Once (Without Time Specified), 1 dose, Starting on Lauryn 07/10/17 at 2056, Until Lauryn 07/10/17 at 2102, STAT Given 07/10/2017 21:02 EST 1,000 mg diphenhydrAMINE (BENADRYL) capsule 25 mg 25 mg, oral, EVERY 6 HOURS PRN, Starting on Lauryn 07/10/17 at 2149, Until Fri07/11/17 at 1007, Itching, Routine Given 07/10/2017 22:04 EST 25 mg lactated ringers (LR) infusion at 200 mL/hr, intravenous, CONTINUOUS, Starting on Lauryn 07/10/17 at 2245, Until Fri07/11/17 at 1007, Routine New Bag 07/11/2017 4:00 EST 200 mL/hr New Bag 07/10/2017 22:32 EST 200 mL/hr lactated ringers BOLUS 1,000 mL 1,000 mL, intravenous, NOW X1, 1 dose, On Lauryn 07/10/17 at 1930, Routine Given 07/10/2017 20:05 EST 1,000 mL lactated ringers BOLUS 1,000 mL 1,000 mL, intravenous, NOW X1, 1 dose, On Lauryn 07/10/17 at 2115, Routine Given 07/10/2017 21:02 EST 1,000 mL loperamide (IMODIUM) capsule 2 mg 2 mg, oral, 4 TIMES DAILY PRN, Starting on Fri07/11/17 at 0630, Until Fri07/11/17 at 1007, Diarrhea, Routine Given 07/11/2017 7:18 EST 2 mg ondansetron (ZOFRAN-ODT) disintegrating tablet 4 mg 4 mg, oral, EVERY 4 HOURS PRN, Starting on Lauryn 07/10/17 at 1845, Until Fri07/11/17 at 1007, Nausea, Routine Given 07/10/2017 19:09 EST 4 mg documented in this encounter Active and Recently Administered Medications Times are shown in EST. Scheduled Medication Order 07/09/2017 07/10/2017 07/11/2017 acetaminophen (TYLENOL) tablet 1,000 mg (COMPLETED) 1,000 mg, oral, Once (Without Time Specified), 1 dose, Starting on Lauryn 07/10/17 at 2056, Until Lauryn 07/10/17 at 2102, STAT 210 (Given - Provider: Mohini Metz RN) lactated ringers BOLUS 1,000 mL (COMPLETED) 1,000 mL, intravenous, NOW X1, 1 dose, On Lauryn 07/10/17 at 1930, Routine 2004 (Given - Provider: Mohini Metz RN) lactated ringers BOLUS 1,000 mL (COMPLETED) 1,000 mL, intravenous, NOW X1, 1 dose, On Lauryn 07/10/17 at 2115, Routine 2101 (Given - Provider: Mohini Metz, STACEY) Continuous Medication Order 07/09/2017 07/10/2017 07/11/2017 lactated ringers (LR) infusion at 200 mL/hr, intravenous, CONTINUOUS, Starting on Lauryn 07/10/17 at 2245, Until Fri07/11/17 at 1007, Routine 2232 (New Bag - Provider: Razia Metz RN) 0400 (New Bag - Provider: Razia Metz RN) PRN Medication Order 07/09/2017 07/10/2017 07/11/2017 diphenhydrAMINE (BENADRYL) capsule 25 mg 25 mg, oral, EVERY 6 HOURS PRN, Starting on Lauryn 07/10/17 at 2149, Until Fri07/11/17 at 1007, Itching, Routine 2204 (Given - Provider: Razia Metz RN) loperamide (IMODIUM) capsule 2 mg 2 mg, oral, 4 TIMES DAILY PRN, Starting on Fri07/11/17 at 0630, Until Fri07/11/17 at 1007, Diarrhea, Routine 0718 (Given - Provid er: Razia Metz RN) ondansetron (ZOFRAN-ODT) disintegrating tablet 4 mg 4 mg, oral, EVERY 4 HOURS PRN, Starting on Lauryn 07/10/17 at 1845, Until Fri07/11/17 at 1007, Nausea, Routine 1909 (Given - Provider: Echo Stone RN) documented in this encounter Orders Diet Count Last Ordered Date First Orde red Date DISCHARGE DIET 2 07/11/2017 Nursing Count Last Ordered Date First Orde red Date BATHING INSTRUCTIONS 1 07/11/2017 IV Count Last Ordered Date First Orde red Date IV REQUEST 1 07/10/2017 Transfer Count Last Ordered Date First Orde red Date NOTIFY PPS OF DISCHARGE COMPLETE 1 07/11/20 17 Discharge Count Last Ordered Date First Orde red Date DISCHARGE PATIENT 1 07/11/2017 Legal Count Last Ordered Date First Orde red Date MISCELLANEOUS DISCHARGE INSTRUCTIONS 1 08/2016 documented in this encounter Care Teams Cloud Operations Engineer Relationship Specialty Start Date End Date Abdoulaye Gonzalez PCP - General 12/22/15 04/05/18 documented as of this encounter
--- OUTSIDE RECORDS SUMMARY | 2024-04-14 20:39 | XMS_ITS | Encounter Summary ---
Author Organization [facility] Address [address] [place] [address] Care Team Providers Care Criminal Records Technician Name Role Phone MgAbdoulaye gusman Primary Care Provider [phone] Encounter Details Date Type Department Care Team (Late st Contact Info) Description 06/17/2017 9:32 EST - 06/17/2017 23:59 [facility] Hospital Encounter [facility] [address] [place] [address] Cecelia Reece, MORTGAGE CLOSING CLERK [facility] [address] [facility], [address] [place] [phone] Discharge Disposition: Home or Self Care Social [...] you have serious difficulty h earing? No 03/25/2017 Are you blind or do you have serious difficulty seeing, even when wearing glasses? No 03/25/2017 Do you have serious difficul ty walking or climbing stairs? (5 years old or older) No 03/25/2017 Do you have difficulty dress ing or bathing? (5 years old or older) No 03/25/2017 Because of a physical, menta l, or emotional condition, do you have difficulty doing errands alone such as visiting a doctor's office or shopping? (15 years old or older) No 03/25/2017 Cognitive Status Response Date of Assessm ent Because of a physical, menta l, or emotional condition, do you have serious difficulty concentrating, remembering, or making decisions? (5 years old or older) No 03/25/2017 documented as of this encounter Discharge Diagnoses Diagnosis R35.0 Frequency of micturition-R35.0[ICD-10-CM] Z34.83 Encounter for supervision of other normal , third trimester-Z34.83[ICD-10-CM] documented in this encounter Medications at Time of Discharge Medication Sig Dispensed Refills Start Date End Date acetaminophen (TYLENOL) 500 mg tablet Take 500 mg by mouth every 6 hours as needed for Pain. 06/21/2017 albuterol 90 mcg/actuation inhaler Inhale 1 Puff [...] ORAL) Take by mouth as needed. 08/13/2017 HYDROmorphone (DILAUDID) 2 mg tablet Take 1 Tab by mouth every 4 hours as needed for Pain. Daily Max: 24 mg 10 Tab 06/23/2017 07/09/2017 VITS62/FA/OM3/DHA/EPA ( GUMMY ORAL) Take by mouth [...] Code Departure Means Destination Home or Self Mcfp documented in this encounter Plan of Treatment Not on file documented as of this encounter Goals Goal Patient Goal Type Associated Problems Recent Progress Patient-Stated? Author Blood Pressure < 130/80 Blood Pressure 118/78(2017 16:01 EDT) No Rina Agosto MD Weight Loss General Yes Rina Agosto MD Note: Goal = 145lbs documented as of this encounter Procedures Procedure Name Priority Date/Time Associated Diagnosis Comments UA CHEMICAL ONLY Routine 06/17/2017 9:47 EST documented in this encounter Results * (ABNORMAL) UA CHEMICAL (DIPSTICK ONLY) (06/17/2017 9:47 EST) Color, UA Yellow 06/17/2017 11:05 [facility] Clarity, UA Clear 06/17/2017 11:05 [facility] Glucose, UA Neg Neg 06/17/2017 11:05 [facility] Bilirubin, UA Neg Neg 06/17/2017 11:05 [facility] Ketones, UA Trace(A) Neg 06/17/2017 11:05 [facility] Refractometer SG,Urine 1.021 1.001 - 1.035 06/17/2017 11:05 [facility] Blood, UA Neg Neg 06/17/2017 11:05 [facility] pH, UA 6.5 4.6 - 8.0 06/17/2017 11:05 [facility] Protein, UA Trace(A) Neg 06/17/2017 11:05 [facility] Urobilinogen, UA Normal Normal E.U./dl 06/17/2017 11:05 [facility] Nitrite, UA Neg Neg 06/17/2017 11:05 [facility] Leuk Esterase Neg Neg 06/17/2017 11:05 [facility] UA Method Used 06/17/2017 9:45 [facility] Comment: Testing performed using [employer] AU-4050. URINE / Unknown 06/17/2017 9 :47 EST 06/17/2017 10:46 EST Cecelia Reece MORTGAGE CLOSING CLERK CNM URINALYSIS ORDERA BLES [facility] [address] [place] [address] documented in this encounter Visit Diagnoses Not on filedocumented in this encounter Care Teams Criminal Records Technician Relationship Specialty Start Date End Date Abdoulaye Gonzalez PCP - General 12/22/15 04/05/18 documented as of this encounter
--- OUTSIDE RECORDS SUMMARY | 2024-04-14 20:39 | XMS_ITS | Encounter Summary ---
Author Organization [facility] Address [address] [place] [address] Care Team Providers Care Aircraft Landing Gear Inspector Name Role Phone Abdoulaye Gonzalez Primary Care Provider [phone] Reason for Referral * (Routine) - Closed Specialty Diagnoses / Procedures Referred By Gregory velez Referred To Contact Carmelo Sharp MD [address] [place] [phone] Referral ID Status Reason Start Date Expiration Date V isits Requested Visits Authorized [id number] Closed Specialty Services Required 06/23/2017 1 1 Encounter Details Date Type Department Care Team (Late st Contact Info) Description 06/23/2017 16:08 EST - 06/23/2017 19:15 EST Hospital Encounter [facility] [address] [place], [place] [id number] Jalyn Pan MD [address] [place] [phone] Carmelo Valderrama MD [address] [place] [phone] Renetta Damon MD [facility] [address] [address] Discharge Disposition: Home or Self Care Social [...] Sign Reading Time Taken Comments Blood Pressure 117/61 06/23/2017 1844 EST Pulse - - Temperature 36.7 ??C (98.1 ??F) 06/23/2017 1624 EST Respiratory Rate 18 06/23/2017 1844 EST Oxygen Saturation - - Inhaled Oxygen [...] O26.893 Other specified related conditions, third trimester-O26.893[ICD-10-CM] R10.31 Right lower quadrant pain-R10.31[ICD-10-CM] R11.0 Nausea-R11.0[ICD-10-CM] Z87.442 Personal history of urinary calculi-Z87.442[ICD-10-CM] Z3A.32 32 weeks gestation of -Z3A.32[ICD-10-CM] documented in this encounter Medications at Time [...] Max: 24 mg 10 Tab 06/23/2017 07/09/2017 ondansetron (ZOFRAN) 4 mg tablet Take 1 [...] Dispensed Refills Start Date End Da te HYDROmorphone (DILAUDID) 2 mg tablet Take 1 Tab by mouth every 4 hours as needed for Pain. Daily Max: 24 mg 10 Tab 06/23/2017 07/09/2017 documented in this encounter Discharge Disposition Disposition Code Departure Means Destination Home or Self Care documented in this encounter Progress Notes * Carmelo Stone MD - 06/23/2017 1915 EST Subjective Came to see prior to planned discharge home by DAMASO Guardado. Patient feeling much better after PO hydration. Tolerating PO fluids and food (ate full dinner) and pain greatly improved. Endorses normal movements. Objective Temp: 36.7 (Tmax 36.7) HR: 89 (88-98) RR: 18 BP: 117/61 (107-122/60-67) Gen: looks well, A&Ox3, in NAD Assessment 27 y.o. at 32w2d gestation with right flank pain secondary to possible nephrolithiasis versus musculoskeletal. UA not suggestive of renal stone. No clinical evidence of pyelonephritis. Vitalswnl. NST reactive during this triage. Plan Home Continue Dilaudid 2mg q4 prn Follow-up with CNMs in 1 week (has appointment) Advised to return/call if worsening pain, fevers/chills or acute concerns Patient also seen by DAMASO Stone MD 06/24/17 @02:05 * Yris Naavrro MD - 06/23/2017 1723 EST L&D Triage Note C/C: Right flank pain Gladys Lopez is a 27 y.o. @ 32w2d with a history of nephrolithiasis HPI: Gladys reports a sudden onset of right flank pain 2 days ago. Prior to that she was feeling a little bladder discomfort that made her think she was getting a UTI. The pain was very severe atonset rated 50 on a 1 to 10 scale and she immediately knew she had kidney stone. She went to the ED where she had a beside ultrasound showing mild right hydronephrosis, no stone identified. Her pain improved with medication and she received IV fluids. She was discharged home with a prescription for dilaudid and zofran. Her pain initially seemed better, but then got worse again yesterday and today. She reports that the dilaudid helps with the pain, but does not like to take it, so she tries not to in order to see how she does. She last took 2 mg of dilaudid at about 1500 today. She has been straining her urine and has not noted any passage of stone or sediment. She also gets a headaches that she thinks is related to the dilaudid that goes away with tylenol. She reports that she has been hydrating well drinking multiple jugs of water per day since diagnosis. She has had some nausea today, but no emesis. She took a zofran today for nausea. Endorses constipation with last full BM 3 daysago and only small, hard stool today. She has not taken any stool softeners or laxatives. She denies fever, chills. Denies contractions, LOF, VB. Endorses movement. Gladys has a history of nephrolithiasis requiring surgical removal and stent in 2016. O: BP 107/65 Temp 36.7 ??C (98.1 ??F) (Tympanic) Resp 18 LMP 11/09/2016 Comment: Irregular cycles FHT: 140 baseline, mod variability, + accels, no decels; Category I tracing [place]: flat Gen: NAD, appears to be in moderate pain, able to lie still CV: Normal rate Resp: No increased work of breathing Back: Mild right flank tenderness Abd: Soft, non-tender, non-distended, appropriately gravid Extr: WWP, no LE edema, no tenderness A/P: Gladys Lopez is a 27 y.o. @ 32w2d presenting with right flank pain. Category I tracing. - U/A and CBC with diff ordered to rule out infection - Discussed fleets enema, miralax, and colace for constipation especially while on opiate pain medication - Encourage PO fluids and fruits - Will follow up on labs and then anticipate discharge home with refill of dilaudid script and instructions for enema, miralax, and colace. - Discussed to return to care with any signs of infection or significantly worsening pain Discussed with Christy Guardado CNM and MD Yris Dillard MD 06/23/2017 17:23 * Ashley Lancaster RN - 06/23/2017 4034 EST Pt admitted to room 1 from [facility] office for hydration and pain control. Pt reports kidney stone foundby u/s here on Friday and reports she has been straining her urine at home but it has not passed yet. Pt reports h/o kidney stones. Pt reports +FM, denies LF or VB. Reports occasional irregular mild ctx over last day. Pt report pain in lower back on right side that's is constantly dull and then sporadically sharp, pain above her pubic bone like spasms, and sharp pain around her urethra thatcomes and goes. Pt reports she has been trying to take the least amount of pain medication possible, last took 2 mg Dilaudid today about 1500. Pt reports she has been very constipated as well. More PO fluids encouraged. Pt verbalizes understanding. DAMASO Guardado aware. 164[address] DAMASO [address]ado BS. 1700 Dr Navarro BS to assess pt. 1710 UA obtained. 1720 DAMASO Guardado BS to discuss POC with pt. Pt reports she is uninsured and is concerned about the financial cost of a hospital admission, that her pain is much improved since office visit and that she'd prefer to treat her pain and constipation at home as an outpatient if possible. 1755 CBC drawn and sent. Dr Nina BS to assess pt. 1820 Pt sitting up to eat. 1838 Pt ate dinner. RN BS adjusting monitor, increased FM audible. DAMASO Guardado BS discussing plan tod/c home. Pt and agree with plan. 1848 Pt reports pain is worse after void, rates it 7/10 still but says its manageable and that she wants to go home. 1910 SONY category 1. CEFM off. D/c instructions reviewed. Pt and FOB deny further questions. D/c home via WC. * Romina Azevedo, RN - 06/21/2017 1423 EST Pt arrived via w/c from ER after being seen for diagnosis of kidney stones, Here for ?PECwork up after initial BP elevated in ER. EFM explained and applied. Juan Torres aware of pts arrival and in to evaluate pt @ 1425. States had SL but no IV fluids, labs,. States is very thirsty. Given po fluids. 1450 IV started for 1 L bolus per Jared Britt CNM. Pt denies nausea and able to drink 400 cc well. documented in this encounter Plan of Treatment Scheduled Referrals Name Type Priority Associated Diagnoses Order Schedule PROVIDER FOLLOW-UP INSTRUCTIONS Outpatient Referral Routine Ordered: 06/23/2017 documented as of this encounter Goals Goal Patient Goal Type Associated Problems Recent Progress Patient-Stated? Author Blood Pressure < 130/80 Blood Pressure 118/78(2017 16:01 EDT) No Rina Agosto MD Weight Loss General Yes Rina Agosto MD Note: Goal = 145lbs documented as of this encounter Procedures Procedure Name Priority Date/Time Associated Diagnosis Comments COMPLETE BLOOD COUNT AND DIFFERENTIAL Routine 06/23/2017 17:55 EST URINE CULTURE IF POSITIVE Routine 06/23/2017 17:10 EST URINE CHEMICAL (DIP) & SEDIMENT (MICRO) WITHOUT REFLEX TO CULTURE STAT 06/23/2017 17:10 EST documented in this encounter Results * (ABNORMAL) HEMAGRAM AND DIFFERENTIAL (06/23/2017 17:55 EST) WBC 10.72 4.0 - 12.4 K/cmm 06/23/2017 18:13 [facility] RBC 3.42(L) 3.86 - 5.04 M/cmm 06/23/2017 18:13 [facility] Hemoglobin 9.3(L) 11.6 - 15.2 gm/dl 06/23/2017 18:13 [facility] HCT 27.0(L) 34.9 - 44.4 % 06/23/2017 18:13 [facility] MCV 79(L) 81 - 98 fl 06/23/2017 18:13 [facility] MCH 27.2 26.7 - 33.3 pg 06/23/2017 18:13 [facility] MCHC 34.4 32.1 - 35.9 gm/dl 06/23/2017 18:13 [facility] RDW-CV 14.6 <14.7 % 06/23/2017 18:13 [facility] RDW-SD 41.7 <50.4 fl 06/23/2017 18:13 [facility] PLT 192 141 - 377 K/cmm 06/23/2017 18:13 [facility] MPV 11.2 9.5 - 12.7 fl 06/23/2017 18:13 [facility] % Neutrophils 68.6 % 06/23/2017 18:13 [facility] % Lymphocytes 20.3 % 06/23/2017 18:13 [facility] % Monocytes 9.0 % 06/23/2017 18:13 [facility] % Eosinophils 0.8 % 06/23/2017 18:13 [facility] % Basophils 0.3 % 06/23/2017 18:13 [facility] % Immature Grans 1.0 % 06/23/2017 18:13 [facility] ABS Neutrophils 7.35 2.20 - 8.85 K/cmm 06/23/2017 18:13 [facility] ABS Lymphs 2.18 1.09 - 3.30 K/cmm 06/23/2017 18:13 [facility] ABS Monocytes 0.96(H) 0.1 - 0.8 K/cmm 06/23/2017 18:13 [facility] ABS Eosinophils 0.09 0.03 - 0.61 K/cmm 06/23/2017 18:13 [facility] ABS Basophils 0.03 0.01 - 0.11 K/cmm 06/23/2017 18:13 [facility] ABS Immature Grans 0.11(H) 0 - 0.06 K/cmm 06/23/2017 18:13 [facility] Type of Diff: Automated 06/23/2017 18:13 [facility] Blood specimen (specimen) BLOOD SPECIMEN / Unknown 06/23/2017 17:55 EST 06/23/2017 18:06 EST Yris Navarro MD PACKAGES & DNA PRO BE ORDERABLES [facility] [address] [place] [address] * URINE CULTURE IF UA POSITIVE - NON POCT URINALYSIS ONLY (06/23/2017 17:10 EST) Culture if Indicated Culture not indicated by urinalysis results. 06/23/2017 18:16 [facility] Urine specimen (specimen) TOPOGRAPHY UNKNOWN / Unknown 06/23/2017 17:10 EST 06/23/2017 17:53 EST Yris Navarro MD MICROBIOLOGY - GEN ERAL ORDERABLES [facility] [address] [place] [address] * (ABNORMAL) UA, CHEMICAL AND SEDIMENT ANALYSIS (DIPSTICK AND MICROSCOPIC) (06/23/2017 17:10 EST) Color, UA Yellow 06/23/2017 18:16 [facility] Clarity, UA Clear 06/23/2017 18:16 [facility] Glucose, UA Neg Neg 06/23/2017 18:16 [facility] Bilirubin, UA Neg Neg 06/23/2017 18:16 [facility] Ketones, UA Neg Neg 06/23/2017 18:16 [facility] Refractometer SG,Urine 1.004 1.001 - 1.035 06/23/2017 18:16 [facility] Blood, UA Neg Neg 06/23/2017 18:16 [facility] pH, UA 6.5 4.6 - 8.0 06/23/2017 18:16 [facility] Protein, UA Neg Neg 06/23/2017 18:16 [facility] Urobilinogen, UA Normal Normal E.U./dl 06/23/2017 18:16 [facility] Nitrite, UA Neg Neg 06/23/2017 18:16 [facility] Leuk Esterase Neg Neg 06/23/2017 18:16 [facility] UA Method Used 06/23/2017 17:39 [facility] Comment: Testing performed using [employer] AU-4050. Urine RBC Count Automated 0 to 2 0 to 2 /HPF 06/23/2017 18:16 [facility] Urine WBC Count Automated 0 to 3 0 to 3 /HPF 06/23/2017 18:16 [facility] Urine Squamous Epithelial Cell Count, Automated Few(A) None seen /LPF 06/23/2017 18:16 [facility] Urine Hyaline Casts, Automated < or = 10 < or = 10 /LPF 06/23/2017 18:16 [facility] Urine Bacteria Count, Automated None seen None seen 06/23/2017 18:16 [facility] UA Comment Sediment results 06/23/2017 18:16 [facility] Comment: are unreliable on urines unrefrig >2hrs or refrig >8hrs. Urine specimen (specimen) URINE / Unknown 06/23/2017 17:10 EST 06/23/2017 17:53 EST Yris Navarro MD URINALYSIS ORDERAB LES Performing Organization Address City/State/[facility] Co de Phone Number [facility] [address] [place] [address] documented in this encounter Visit Diagnoses Diagnosis Supervision of high-risk - Primary Unspecified high-risk documented in this encounter Discontinued Medications Medication Sig Discontinue Reason Start Date End Da te HYDROmorphone (DILAUDID) 2 mg tablet Take 1-2 Tabs by mouth every 4 hours as needed for Pain. Daily Max: 24 mg 06/21/2017 06/23/2017 documented as of this encounter Orders Diet Count Last Ordered Date First Orde red Date DISCHARGE DIET 2 06/23/2017 Nursing Count Last Ordered Date First Orde red Date BATHING INSTRUCTIONS 1 06/23/2017 Transfer Count Last Ordered Date First Orde red Date NOTIFY PPS OF DISCHARGE COMPLETE 1 06/23/20 17 Discharge Count Last Ordered Date First Orde red Date DISCHARGE PATIENT 1 06/23/2017 Legal Count Last Ordered Date First Orde red Date MISCELLANEOUS DISCHARGE INSTRUCTIONS 1 06/11 documented in this encounter Care Teams Aircraft Landing Gear Inspector Relationship Specialty Start Date End Date Abdoulaye Gonzalez PCP - General 12/22/15 04/05/18 documented as of this encounter
--- OUTSIDE RECORDS SUMMARY | 2024-04-14 20:39 | XMS_ITS | Encounter Summary ---
Author Organization [facility] Address [address] [place] [address] Care Team Providers Care Asphalt Engineer Name Role Phone MgAbdoulaye gusman Primary Care Provider [phone] Encounter Details Date Type Department Care Team (Late st Contact Info) Description 05/12/2017 11:12 EDT - 05/12/2017 23:59 EDT Hospital Encounter [address] [address] Unknown, Provider, Earl Guadarrama, [facility] [address] [facility], [facility] [address] [place] [address] Discharge Disposition: Auto Discharge Social History Tobacco [...] as of this encounter Discharge Diagnoses Diagnosis Z34.92 Encounter for supervision of normal , unspecified, second trimester-Z34.92[ICD-10-CM] documented in this encounter Medications at Time [...] affected area 60 mL 2 05/01/2017 07/13/2017 HYDROmorphone (DILAUDID) 2 mg tablet Take 1 [...] on filedocumented in this encounter Care Teams Asphalt Engineer Relationship Specialty Start Date End Date Abdoulaye Gonzalez PCP - General 12/22/15 04/05/18 documented as of this encounter
--- OUTSIDE RECORDS SUMMARY | 2024-04-14 20:39 | XMS_ITS | Encounter Summary ---
Author Organization [facility] Address [address] [place] [address] Care Team Providers Care Intelligence Support Officer Name Role Phone Abdoulaye Gonzalez Primary Care Provider [phone] Reason for Visit * Reason Comments Routine Visit Encounter Details Date Type Department Care Team (Late st Contact Info) Description 06/18/2017 11:15 EST Routine [facility] OBGYN Services - [address] [address] Genia Peters, NURSING ADMIN [facility] [address] [facility], [address] [place] [address] GA: 31w4d Social History Tobacco Use Types Packs/Day Years [...] Sign Reading Time Taken Comments Blood Pressure 126/62 06/18/2017 1117 EST Pulse - - Temperature - - Respiratory Rate - - Oxygen Saturation - - Inhaled Oxygen Concentration - - Weight 97.8 kg (215 lb 9.6 oz) 06/18/[address] Height - - Body Mass Index 36.99 06/04/2017 0951 EDT documented in this encounter Functional Status [...] No 03/25/2017 documented as of this encounter Progress Notes * Genia Peters CNM - 06/18/2017 1115 EST S: Gladys Lopez is here today for a visit at 31w4d. Just had ultrasound and found out the baby is head down, thinks that he turned last night. Very excited she won't need . Thinks that she is urinating fine now, no blood in urine. Denies bleeding, loss of fluid or painful contractions. + FM. Has looked into all insurance options,has met with [facility] social media executive, and still cannot afford the $500 monthly premium so she is resigned to not having insurance and working with financial office on bill paying. Because of this she wants to leave the hospital [facility] after delivery. She does not have any plan and just wants to go with the flow. Taking iron sulfate QD and eating more red meat and greens. O: Vitals: BP: 126/62 Weight : 97.8 kg (215 lb 9.6 oz) Movement: Present U/S today EFW 4#4oz 50% A: 27 y.o. at 31w4d IUP BMI 35 Anemia P: Advised continuing with high iron diet, consider taking iron BID sometimes. Still needs 24 hour urine, plans to do that on weekend. Follow up in 2 wks documented in this encounter Plan of [...] Name Priority Date/Time Associated Diagnosis Comments POCT HEMOGLOBIN Routine 06/18/2017 11:30 EST Encounter for supervision of other normal in third trimester documented in this encounter Results * (ABNORMAL) POCT HEMOGLOBIN (06/18/2017 11:30 EST) Hemoglobin, POC 10.8(A) 11.6 - 15.2 g/dL POINT OF CARE [facility] Comment:CNM aware Blood specimen (specimen) 06/18/2017 11:30 EST Genia Peters NURSING ADMIN CNM POINT OF CARE TEST ORDERABLES POINT OF CARE [facility] documented in this encounter Visit Diagnoses Diagnosis Encounter for supervision of other normal in third trimester- Primary documented in this encounter Care Teams Intelligence Support Officer Relationship Specialty Start Date End Date Abdoulaye Gonzalez PCP - General 12/22/15 04/05/18 documented as of this encounter
--- OUTSIDE RECORDS SUMMARY | 2024-04-14 20:39 | XMS_ITS | Encounter Summary ---
Author Organization [facility] Address [address] [place] [address] Care Team Providers Care Embossed Or Impressed Lettering Painter Name Role Phone Abdoulaye Gonzalez Primary Care Provider [phone] Reason for Visit * Reason Onset Date Comments Constipation 06/24/2017 Encounter Details Date Type Department Care Team (Late st Contact Info) Description 06/24/2017 Telephone [facility] OBGYN Services - [address] [id number] Caron Guardado APRN [facility] 111 [facility], Level 4 [place] [address] Constipation Social History Tobacco Use Types Packs/Day Years [...] Telephone Encounter - Caron Guardado CNM - 06/24/2017 0802 EST Gladys called to report she has had no results from one glycerin suppository taken this evening. She was seen yesterday for possible kidney stone pain and was also struggling with constipation fromnarcotic and zofran use. Her flank pain had improved and she was hydrating well PO. She was to obtain OTC medications to help have a BM - she only got suppositories and stool softener. She was advised to get a Fleets enema and take this along with continued TID stool softeners, continue extra hydration. She could try Miralax if the enema doesn't work. If efforts are unsuccessful she can have assistance on L&D. documented in this encounter Plan of [...] on filedocumented in this encounter Care Teams Embossed Or Impressed Lettering Painter Relationship Specialty Start Date End Date Abdoulaye Gonzalez PCP - General 12/22/15 04/05/18 documented as of this encounter
--- OUTSIDE RECORDS SUMMARY | 2024-04-14 20:39 | XMS_ITS | Encounter Summary ---
Author Organization [facility] Address [address] [place] [address] Care Team Providers Care Auto Damage Adjuster Name Role Phone MgAbdoulaye gusman Primary Care Provider [phone] Reason for Referral * (Routine) - Closed Specialty Diagnoses / Procedures Referred By Contac t Referred To Contact Siria Dixon NP CNM [address] [address] Referral ID Status Reason Start Date Expiration Date V isits Requested Visits Authorized [id number] Closed Specialty Services Required 07/13/2017 1 1 Comments See your senior enlisted advisor early next week. Please call for an appointment. * (Routine) - Closed Specialty Diagnoses / Procedures Referred By Gregory velez Referred To Contact Siria Dixon NP CNM [address] [address] Referral ID Status Reason Start Date Expiration Date V isits Requested Visits Authorized [id number] Closed Specialty Services Required 07/13/2017 1 1 Encounter Details Date Type Department Care Team (Late st Contact Info) Description 07/13/2017 10:48 EST - 07/13/2017 12:00 EST Hospital En[facility] [address] [place], [place] [id number] Renetta Flor MD 111 [facility], [address] [place] [address] Aga Avilez MD 300 [facility] [address] [place] [id number] Supervision of high risk in third trimester [...] Sign Reading Time Taken Comments Blood Pressure 117/76 07/13/2017 1102 EST Pulse - - Temperature 37 ??C (98.6 ??F) 07/13/2017 1102 EST Respiratory Rate 20 07/13/2017 1102 EST Oxygen Saturation - - Inhaled Oxygen [...] as of this encounter Discharge Diagnoses Diagnosis O47.03 False labor before 37 completed weeks of gestation, third trimester-O47.03[ICD-10-CM] O99.343 Other mental disorders complicating , third trimester-O99.343[ICD-10-CM] F41.9 Anxiety disorder, unspecified-F41.9[ICD-10-CM] O23.593 Infection of other part of genital tract in , third trimester-O23.593[ICD-10-CM] Z3A.35 35 weeks gestation of -Z3A.35[ICD-10-CM] documented in this encounter Medications at Time [...] Progress Notes * Siria Dixon CNM - 07/13/2017 1148 EST S/ Pt called with UCs since 729 getting progressively worse and painful. Needing to breath with them. Denied leaking, bleeding, decreased FM, headache, URI, Fever, urinary frequency, - did have loose stool x1 this morning. Once she arrived to L&D UC irregular not visibly responding to UCs; C/O tender vagina. O/Blood pressure 117/76, temperature 37 ??C (98.6 ??F), temperature source Tympanic, resp. rate 20,last menstrual period 11/09/2016. UCs q 2 - 10 min x 20 -40 sec FHTs 130s accels to 170s moderate variability no decels VE 1 / 50%/ -2 + yeast D/C Clumpy white Urine clear yellow Vertex by manpreet's A/ IUP 35w1d Cat 1 FHT No cervical change since VE 07/10 Yeast vaginitis H/O PEC ; normotensive Anxiety P/ D/C home Rest; call with labor; reassurance given RTO early in the week for repeat cervical check if irregular UCs continue * Justina Moody, STACEY - 07/13/2017 1055 EST Pt arrived to L+D with reports of constant low back pain and some distinct contractions in her low abdomen. Pt reports that they feel more intense than when she woke up. Pt reports +FM and denies anyVB or LOF. Pt up to the bathroom to void, UA given and pt up into bed for CEFM. Pt PO hydrating. 1135 CNM Destiny to the bedside for evaluation. 1200 Pt d/c to home with instructions, receptive to plan. documented in this encounter Plan of Treatment Scheduled Referrals Name Type Priority Associated Diagnoses Order Schedule PROVIDER FOLLOW-UP INSTRUCTIONS Outpatient Referral Routine Ordered: 07/13/2017 PROVIDER FOLLOW-UP INSTRUCTIONS Outpatient Referral Routine Ordered: 07/13/2017 documented as of this encounter Goals Goal [...] high-risk Unspecified high-risk documented in this encounter Discontinued Medications Medication Sig Discontinue Reason Start Date End Da te clindamycin (CLEOCIN T) 1 % lotion Apply topically twice a week. use thin film on affected area 05/01/2017 07/13/2017 prochlorperazine (COMPAZINE) 5 mg tablet Take 1 Tab by mouth every 4 hours. For headache 07/02/2017 07/13/2017 documented as of this encounter Orders Diet Count Last Ordered Date First Orde red Date DISCHARGE DIET 2 07/13/2017 Nursing Count Last Ordered Date First Orde red Date ACTIVITY INSTRUCTIONS 1 07/13/2017 BATHING INSTRUCTIONS 1 07/13/2017 Admission Count Last Ordered Date First Orde red Date STATUS: OUTPATIENT OBSERVATION SERVICES 1 1 09/13/2016 Transfer Count Last Ordered Date First Orde red Date NOTIFY PPS OF DISCHARGE COMPLETE 1 07/13/20 17 Discharge Count Last Ordered Date First Orde red Date DISCHARGE PATIENT 1 07/13/2017 Legal Count Last Ordered Date First Orde red Date MISCELLANEOUS DISCHARGE INSTRUCTIONS 1 10/2016 documented in this encounter Care Teams Auto Damage Adjuster Relationship Specialty Start Date End Date Abdoulaye Gonzalez PCP - General 12/22/15 04/05/18 documented as of this encounter
--- OUTSIDE RECORDS SUMMARY | 2024-04-14 20:39 | XMS_ITS | Encounter Summary ---
Author Organization [facility] Address [address] [place] [address] Care Team Providers Care Disintegrator Operator Name Role Phone Abdoulaye Gonzalez Primary Care Provider [phone] Reason for Visit * Reason Onset Date Comments Generalized Body Aches 07/10/2017 Encounter Details Date Type Department Care Team (Late st Contact Info) Description 07/10/2017 Telephone [facility] OBGYN Services - Main [address] [address] Clara Barry RN Generalized Body Aches Social History Tobacco Use Types Packs/Day Years [...] Telephone Encounter - Clara Barry, RN - 07/10/2017 0166 EST TC from Gladys @ 34+5 who reports feeling terrible. States that she has head to toe body aches, a fever (though has not taken her temperature as she does not have a thermometer), chills and nausea. +FM. Denies LBC. This nurse spoke with CNM on-call who would have Sonali seek care from her PCP/ urgent care to be swabbed for influenza. Pt states that she is unable to get to the hospital orany clinic as she is at home with her son and FOB is at a court hearing. Wishes to try to manage symptoms at home for now. Recommended pushing fluids as much as possible, Tylenol and rest. Gladys in agreement and will call back with any worsening symptoms. documented in this encounter Plan of [...] on filedocumented in this encounter Care Teams Disintegrator Operator Relationship Specialty Start Date End Date Abdoulaye Gonzalez PCP - General 12/22/15 04/05/18 documented as of this encounter
--- OUTSIDE RECORDS SUMMARY | 2024-04-14 20:39 | XMS_ITS | Encounter Summary ---
Author Organization [facility] Address [address] [place] [address] Care Team Providers Care Oil Speculator Name Role Phone Abdoulaye Gonzalez Primary Care Provider Reason for Visit * Reason Onset Date Comments Urinary Frequency 06/15/2017 Encounter Details Date Type Department Care Team (Late st Contact Info) Description 06/15/2017 Telephone [facility] OBGYN Services - [address] [phone] Cecelia Reece NP [facility] 111 [facility], [address] [place] [address] Urinary Frequency Social History Tobacco Use Types [...] No 03/25/2017 documented as of this encounter Miscellaneous Notes * Telephone Encounter - Cecelia Reece CNM - 06/15/2017 1320 EST 31w +FM Urinary frequency and feels like she is not emptying bladder. Insists she cannot get to hospital today (Friday) Will go to lab tomorrow and leave sample documented in this encounter Plan of Treatment Not on file documented as of this encounter Goals Goal Patient Goal Type Associated Problems Recent Progress Patient-Stated? Author Blood Pressure < 130/80 Blood Pressure 118/78(2017 16:01 EDT) No Rina Agosto MD Weight Loss General Yes Rina Agosto MD Note: Goal = 145lbs documented as of this encounter Results * URINE CULTURE IF UA POSITIVE - NON POCT URINALYSIS ONLY (06/17/2017 9:47 EST) Culture if Indicated Culture not indicated by urinalysis results. 06/17/2017 11:05 EST [facility] Urine specimen (specimen) TOPOGRAPHY UNKNOWN / Unknown 06/17/2017 9:47 EST 06/17/2017 10:46 EST Cecelia Reece NP, CNM MICROBIOLOGY - [facility] ORDERABLES [facility] [address] [place] [address] documented in this encounter Visit Diagnoses Diagnosis Urinary frequency- Primary Encounter for supervision of other normal in third trimester documented in this encounter Care Teams Oil Speculator Relationship Specialty Start Date End Date Abdoulaye Gonzalez PCP - General 12/22/15 04/05/18 documented as of this encounter
--- OUTSIDE RECORDS SUMMARY | 2024-04-14 20:39 | XMS_ITS | Encounter Summary ---
Author Organization [facility] Address [address] [place] [address] Care Team Providers Care Band Director Name Role Phone Abdoulaye Gonzalez Primary Care Provider [phone] Reason for Visit * Reason Onset Date Comments Asthma 05/23/2017 Encounter Details Date Type Department Care Team (Late st Contact Info) Description 05/23/2017 Telephone [facility] OBGYN Services - [address] [phone] Caron Guardado APRN [facility] 111 [facility], [address] [place] [address] Asthma Social History Tobacco Use Types Packs/Day Years [...] Telephone Encounter - Caron Guardado CNM - 05/23/2017 4340 EDT Gladys called with exacerbation of SOB today. She took her rescue inhaler X 3 puffs but still feels chest tightness. She has a hx of asthma and notes that she had worsening of this at this same gestation with her last . She has a nebulizer at home and is used to using this prn. She used to take Flovent steroid inhaler prior to and wonders if she should restart this? She wouldprefer to not come into the hospital unless the nebulizer treatment is ineffective as she has no health insurance. She will give herself a treatment and restart the Flovent 2 puffs BID. If SOB is notresolved after nebulizer she will come to the ED/L&D for evaluation and further treatment. Babyis moving well. She feels otherwise well, no sx of URI or PTL. documented in this encounter Plan of Treatment [...] on filedocumented in this encounter Care Teams Band Director Relationship Specialty Start Date End Date MgAlverto gusmantin PCP - General 12/22/15 04/05/18 documented as of this encounter
--- OUTSIDE RECORDS SUMMARY | 2024-04-14 20:39 | XMS_ITS | Encounter Summary ---
Author Organization [facility] Address [address] [place] [address] Care Team Providers Care Brake Repairer Bus Name Role Phone Abdoulaye Gonzalez Primary Care Provider [phone] Reason for Referral * (Routine) - Closed Specialty Diagnoses / Procedures Referred By Gregory velez Referred To Contact Carmelo Sharp MD [address] [place] [phone] Referral ID Status Reason Start Date Expiration Date V isits Requested Visits Authorized [id number] Closed Specialty Services Required 07/09/2017 1 1 Encounter Details Date Type Department Care Team (Late st Contact Info) Description 07/09/2017 11:03 EST - 07/09/2017 13:20 EST Hospital Encounter [facility] [address] [place] [address] Carmelo Valderrama MD [address] [place] [phone] Renetta Flor MD [address] [place] [phone] Discharge Disposition: Home or Self Care Social [...] Sign Reading Time Taken Comments Blood Pressure 106/62 07/09/2017 1230 EST Pulse - - Temperature 37.3 ??C (99.1 ??F) 07/09/2017 1230 EST Respiratory Rate - - Oxygen Saturation 100% 07/09/2017 1230 EST Inhaled Oxygen Concentration - - Weight [...] 37 completed weeks of gestation, third trimester-O47.03[ICD-10-CM] O26.893 Other specified related conditions, third trimester-O26.893[ICD-10-CM] N23 Unspecified renal colic-N23[ICD-10-CM] O76 Abnlt in heart rate and rhythm comp labor and delivery-O76[ICD-10-CM] Z3A.34 34 weeks gestation of -Z3A.34[ICD-10-CM] documented [...] documented in this encounter Progress Notes * Jayda Epperson - 07/09/2017 1320 EST SW checked in with Gladys due to concerns around conflict with FOB's (Suzanne) ex-partner. Gladys reports that they are working to get custody of Suzanne's son and the ex-partner is currently due around the same time as Gladys. SW provided brief support and recommended that Gladys ask to be on restricted status when she comes in to deliver. Gladys did not feel that she needs any referrals to community resources at this time. She is aware that she can request [facility] consult if needed when she delivers. Jayda Epperson, [employer] [facility][id number] * Cherelle Johnson RN - 07/09/2017 1306 EST While discharging patient.. She and FOB report they are under a lot of stress because he has a 4 yr old child from previous relationship and DCF involved with his mother Social work called and willstop by now before discharge. * Carmelo Stone MD - 07/09/2017 1250 EST L&D Triage Note Gladys Lopez is a 27 y.o. at 34w4d gestation CC: Leakage of fluid HPI: Patient reports loss of fluid yesterday. Unsure whether may have been urine. Reports non-offensive,clear/yellow fluid with no associated uterine contractions or vaginal bleeding. Endorses normal movements. ROS otherwise negative. Of note, this has been complicated by an episode of renal colic at 32 weeks, which has since completely resolved. O: Patient Vitals for the past 24 hrs: BP Temp Temp src SpO2 07/09/17 1230 106/62 37.3 ??C (99.1 ??F) Oral 100 % 07/09/17 1130 112/70 36.6 ??C (97.9 ??F) Oral 99 % Intake/Output Summary (Last 24 hours) at 07/09/17 1425 Last data filed at 07/09/17 1255 Gross per 24 hour Intake 2000 ml Output 300 ml Net 1700 ml Gen: looks well, A&Ox3, in NAD Abd: uterus soft, non-tender, non-irritable, cephalic Ext: WWP, no calf swelling/tenderness SSE (with consent, chaperoned by STACEY Johnson): NEFG, cervix long and closed, no pooling, small amount of physiologic discharge (nitrazine/ferning negative) [place]: no coordinate uterine activity NST: baseline FHR 190bpm initially (confirmed by TAUS), but subsequently normalized to 120bpm on extended monitoring with IV fluids, moderate variability, accels present, no decels A/P: 27 y.o. at 34w4d gestation. No evidence of PPROM. tachycardia noted on initial presentation but resolved with IV fluids. No clinical signs of intra-amniotic infection (normal maternal HR, afebrile, no uterine tenderness). Vitals wnl. Overall maternal and status reassuring. - Home - Follow-up in office in 1 week - PTL/PPROM precautions given - Patient to call if any acute concerns Discussed with DAMASO Stone MD 07/09/17 @15:09 * Cherelle Johnson, RN - 07/09/2017 1246 EST 1110 Patient arrived with complaint ofmaybe leaking fluid since last night. No gush/no bleeding. EFM applied for NST.temp/ 36.6 oral. Unable to void. tachycardia x 20 min.Intravenous fluids were administered, IV start # 20 gauge left wrist. Bolus LR. CBC Type and Screen. Latex sensitivity. 1234 Void 300 cc Has received 1 liter of LR> 1253 OKd for discharge FH WNL now. Received another 500 cc LR and d/c IV . Temp 37.3 106/62 82 20 Discharge instructions given. documented in this encounter Plan of Treatment Scheduled Referrals Name Type Priority Associated Diagnoses Order Schedule PROVIDER FOLLOW-UP INSTRUCTIONS Outpatient Referral Routine Ordered: 07/09/2017 documented as of this encounter Goals Goal Patient Goal Type Associated Problems Recent Progress Patient-Stated? Author Blood Pressure < 130/80 Blood Pressure 118/78(2017 16:01 EDT) No Rina Agosto MD Weight Loss General Yes Rina Agosto MD Note: Goal = 145lbs documented as of this encounter Procedures Procedure Name Priority Date/Time Associated Diagnosis Comments COMPLETE BLOOD COUNT STAT 07/09/2017 11:43 EST TYPE AND SCREEN STAT 07/09/2017 11:40 EST documented in this encounter Results * (ABNORMAL) HEMAGRAM (07/09/2017 11:43 EST) WBC 9.32 4.0 - 12.4 K/cmm 07/09/2017 12:01 [facility] RBC 4.04 3.86 - 5.04 M/cmm 07/09/2017 12:01 [facility] Hemoglobin 10.7(L) 11.6 - 15.2 gm/dl 07/09/2017 12:01 [facility] HCT 31.6(L) 34.9 - 44.4 % 07/09/2017 12:01 [facility] MCV 78(L) 81 - 98 fl 07/09/2017 12:01 [facility] MCH 26.5(L) 26.7 - 33.3 pg 07/09/2017 12:01 [facility] MCHC 33.9 32.1 - 35.9 gm/dl 07/09/2017 12:01 [facility] RDW-CV 14.8(H) <14.7 % 07/09/2017 12:01 [facility] RDW-SD 41.5 <50.4 fl 07/09/2017 12:01 [facility] PLT 204 141 - 377 K/cmm 07/09/2017 12:01 [facility] MPV 11.6 9.5 - 12.7 fl 07/09/2017 12:01 [facility] Blood specimen (specimen) BLOOD SPECIMEN / Unknown 07/09/2017 11:43 EST 07/09/2017 11:51 EST Carmelo Sharp MD HEMATOLOGY & PF4 ORDERABLES [facility] [address] [place] [address] * TYPE AND SCREEN (07/09/2017 11:40 EST) ABO O [facility] Rh Factor Positive [facility] Antibody Screen Negative [facility] Specimen Expires: 07/12/2017 @ 23:59 [facility] Blood specimen (specimen) 07/09/2017 11:40 EST Carmelo Sharp MD BLOOD BANK TESTS [facility] documented in this encounter Visit Diagnoses Diagnosis Supervision of high-risk - Primary Unspecified high-risk documented in this encounter Administered Medications Inactive Administered Medications - up to 3 most recent administrations Medication Order MAR Action Action Date Dose Rate Site lactated ringers BOLUS 1,000 mL 1,000 mL, intravenous, NOW X1, 1 dose, On Fri07/09/17 at 1200, Routine Given 07/09/2017 11:52 EST 1,000 mL documented in this encounter Discontinued Medications Medication Sig Discontinue Reason Start Date End Da te HYDROmorphone (DILAUDID) 2 mg tablet Take 1 Tab by mouth every 4 hours as needed for Pain. Daily Max: 24 mg 06/23/2017 07/09/2017 documented as of this encounter Active and Recently Administered Medications Times are shown in EST. Scheduled Medication Order 07/07/2017 07/08/2017 07/09/2017 lactated ringers BOLUS 1,000 mL (COMPLETED) 1,000 mL, intravenous, NOW X1, 1 dose, On Fri07/09/17 at 1200, Routine 1152 (Given - Provid er: Cherelle Johnson RN) Continuous Medication Order 07/07/2017 07/08/2017 07/09/2017 lactated ringers (LR) infusion at 150-200 mL/hr, intravenous, CONTINUOUS, Starting on Fri07/09/17 at 1200, Until Fri07/09/17 at 1525, Routine 1200 (Canceled Entry - Provider: Batch Job User Admin - Comment: Automatically canceled at discontinue of medication order) documented in this encounter Orders Medications Ordered That Jean ht Not Have Been Administered Count Last Ordered Date First Ordered Date lactated ringers (LR) infusion 1 07/09/2017 Diet Count Last Ordered Date First Orde red Date DISCHARGE DIET 2 07/09/2017 Nursing Count Last Ordered Date First Orde red Date BATHING INSTRUCTIONS 1 07/09/2017 Transfer Count Last Ordered Date First Orde red Date NOTIFY PPS OF DISCHARGE COMPLETE 1 07/09/20 17 Discharge Count Last Ordered Date First Orde red Date DISCHARGE PATIENT 1 07/09/2017 Legal Count Last Ordered Date First Orde red Date MISCELLANEOUS DISCHARGE INSTRUCTIONS 06/12 documented in this encounter Care Teams Brake Repairer Bus Relationship Specialty Start Date End Date Abdoulaye Gonzalez PCP - General 12/22/15 04/05/18 documented as of this encounter
--- OUTSIDE RECORDS SUMMARY | 2024-04-14 20:39 | XMS_ITS | Encounter Summary ---
Author Organization [facility] Address [address] [place] [address] Care Team Providers Care Plc Programmer Name Role Phone Abdoulaye Gonzalez Primary Care Provider [phone] Encounter Details Date Type Department Care Team (Late st Contact Info) Description 06/18/2017 Results Only Imaging [facility] OBGYN Services - [address] [address] Earl Guadarrama, TALKBACK HOST [facility] [address] [facility], Level 4 [place] [id number] Social History Tobacco Use Types Packs/Day Years [...] No 03/25/2017 documented as of this encounter Plan of [...] Procedure Name Priority Date/Time Associated Diagnosis Comments SKILLED NURSING FOLLOW-UP 06/18/2017 11:13 EST documented in this encounter Results * SKILLED NURSING FOLLOW-UP (06/18/2017 11:13 EST) Anatomical Region Laterality Modality Other 06/18/2017 11:1 3 EST 06/18/2017 11:27 EST Narrative 06/18/2017 11:27 EST Indication Size/dates mismatch BMI 35.7. History ======= General History Height 163 cm [...] lb Initial BMI ?35.70 kg/m? Dating ======= LMP on: ?11/09/2016 GA by LMP ??31 w + 4 d AMA by LMP : ? 08/16/2017 Ultrasound examination on: 06/18/2017 GA by U/S based upon: ??AC, BPD, Femur, HC GA by U/S ??32 w + 2 d AMA by U/S: ?08/11/2017 Method of dating: ??Restore dating from previous exam Previous dating: ?? Dating performed on 12/27/2016 Based on the LMP Assigned GA of previous dating 31 w + 4 d Agreed AMA of previous datin08/16/2017 Assigned: ??Dating performed on 12/27/2016, based on the LMP Assigned GA ?31 w + 4 d Assigned AMA: ??08/16/2017 General Evaluation Cardiac activity: Present. FHR 153 bpm. movements: visualized. Presentation: cephalic, maternal right. Placenta: posterior. Umbilical cord: 3 vessel cord. Amniotic fluid: Amount of AF: normal. MVP 3.4 cm. LEOPOLDO 11.3 cm. Q1 3.4 cm, Q2 2.0 cm, Q3 2.9 cm, Q4 2.9 cm. Anatomy Cranium: ?? normal Lateral ventricles: ?normal Midline falx: ??normal Cranium: ?? normal shape and size 4-chamber view: ?normal Stomach: ?? normal Kidneys: ?? normal Bladder: ?? normal Gender: ?male Wants to know gender: ??yes Biometry Biometry BPD ?80.4 mm 62% 32w 2d Hadlock OFD ?108.9 mm ?>99% 36w 0d Yariel HC 305.6 mm ?79% 33w 1d [place] AC 280.9 mm ?65% 32w 1d Hadlock Femur ??61.6 mm 73% 31w 6d Yariel Humerus ?56.0 mm 78% 32w 4d Yariel EFW ?1,940 g 51% Cole Calculated by: Hadlock ([id number]) EFW (lb) ?? 4 lb EFW (oz) ?? 4 oz Cephalic index 0.74 ?4% Nicolaides HC / AC ?1.09 FL / BPD ?? 0.77 FL / AC ?0.22 MVP ?3.4 cm LEOPOLDO ?11.3 cm FHR ?153 bpm Head / Face / Neck Pick Pulling Machine Tender 5.1 mm Method ======== Transabdominal ultrasound examination, Voluson E10. View: Sufficient. Impression [id number] Follow-up obstetrical ultrasound This is a milan gestation. biometry is consistent with prior dating. Except where noted above, the anatomy was not reviewed in detail as this is a follow-up study and the anatomy was previously assessed. Normal fluid and movement are noted. Follow-up Follow-up as clinically indicated. DATE OF SERVICE: 06/18/2017 Procedure Note Mary Palomares MD - 06/18/2017 Indication Size/dates mismatch BMI 35.7. History ======= General History Height 163 cm [...] lb Initial BMI 35.70 kg/m? Dating ======= LMP on: 11/09/2016 GA by LMP 31 w + 4 d AMA by LMP : 08/16/2017 Ultrasound examination on: 06/18/2017 GA by U/S based upon: AC, BPD, Femur, HC GA by U/S 32 w + 2 d AMA by U/S: 08/11/2017 Method of dating: Restore dating from previous exam Previous dating: Dating performed on 12/27/2016 Based on the LMP Assigned GA of previous dating 31 w + 4 d Agreed AMA of previous datin08/16/2017 Assigned: Dating performed on 12/27/2016, based on the LMP Assigned GA 31 w + 4 d Assigned AMA: 08/16/2017 General Evaluation Cardiac activity: Present. FHR 153 bpm. movements: visualized. Presentation: cephalic, maternal right. Placenta: posterior. Umbilical cord: 3 vessel cord. Amniotic fluid: Amount of AF: normal. MVP 3.4 cm. LEOPOLDO 11.3 cm. Q1 3.4 cm, Q2 2.0 cm, Q3 2.9 cm, Q4 2.9 cm. Anatomy Cranium: normal Lateral ventricles: normal Midline falx: normal Cranium: normal shape and size 4-chamber view: normal Stomach: normal Kidneys: normal Bladder: normal Gender: male Wants to know gender: yes Biometry Biometry BPD 80.4 mm 62% 32w 2d Hadlock OFD 108.9 mm >99% 36w 0d Yariel HC 305.6 mm 79% 33w 1d [place] AC 280.9 mm 65% 32w 1d Hadlock Femur 61.6 mm 73% 31w 6d Yariel Humerus 56.0 mm 78% 32w 4d Yariel EFW 1,940 g 51% Cole Calculated by: Hadlock ([id number]) EFW (lb) 4 lb EFW (oz) 4 oz Cephalic index 0.74 4% Nicolaides HC / AC 1.09 FL / BPD 0.77 FL / AC 0.22 MVP 3.4 cm LEOPOLDO 11.3 cm FHR 153 bpm Head / Face / Neck Pick Pulling Machine Tender 5.1 mm Method ======== Transabdominal ultrasound examination, Voluson E10. View: Sufficient. Impression [id number] Follow-up obstetrical ultrasound This is a milan gestation. biometry is consistent with prior dating. Except where noted above, the anatomy was not reviewed in detail as this is a follow-up study and the anatomy was previously assessed. Normal fluid and movement are noted. Follow-up Follow-up as clinically indicated. DATE OF SERVICE: 06/18/2017 Earl Guadarrama NP CNM [facility] [place] documented in this encounter Visit Diagnoses Not on filedocumented in this encounter Care Teams Plc Programmer Relationship Specialty Start Date End Date Abdoulaye Gonzalez PCP - General 12/22/15 04/05/18 documented as of this encounter
--- OUTSIDE RECORDS SUMMARY | 2024-04-14 20:39 | XMS_ITS | Encounter Summary ---
Author Organization [facility] Address [address] [place] [address] Care Team Providers Care Fish Roe Processor Name Role Phone MgAbdoulaye gusman Primary Care Provider [phone] Reason for Visit * Reason Comments Non-stress Test Encounter Details Date Type Department Care Team (Late st Contact Info) Description 07/02/2017 11:00 EST Nurse Only [facility] Obstetrics & Midwifery - [address] [address] Unknown, Provider, Nurse, Mfm Tachycardia with greater than 160 beats per minute (Primary Dx) Social History Tobacco Use Types [...] as of this encounter Progress Notes * Jalyn Pan MD - 07/02/2017 1100 EST NST Report Baseline Heart Rate: Initially 160-165 with accels to 180, then settled at 150-155 Accelerations: present Movement: present Decelerations: absent Contractions: absent Interpretation: reactive Jalyn Pan MD 07/02/2017 11:14 documented in this encounter Plan of Treatment Not on file documented as of this encounter Goals Goal Patient Goal Type Associated Problems Recent Progress Patient-Stated? Author Blood Pressure < 130/80 Blood Pressure 118/78(2017 16:01 EDT) No Rina Agosto MD Weight Loss General Yes Rina Agosto MD Note: Goal = 145lbs documented as of this encounter Visit Diagnoses Diagnosis Tachycardia with greater than 160 beats per minute- Primary documented in this encounter Care Teams Fish Roe Processor Relationship Specialty Start Date End Date Abdoulaye Gonzalez PCP - General 12/22/15 04/05/18 documented as of this encounter
--- OUTSIDE RECORDS SUMMARY | 2024-04-14 20:39 | XMS_ITS | Encounter Summary ---
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 Adult Primary Care - [address] [address] Abdoulaye Gonzalez [address] [place] [id number] Superficial burn of palm of right hand, initial encounter (Primary Dx) Social History Tobacco Use Types [...] Sign Reading Time Taken Comments Blood Pressure 102/72 07/08/2017 1030 EST Pulse 100 07/08/2017 1030 EST Temperature 35.6 ??C (96 ??F) 07/08/2017 1030 EST Respiratory Rate 16 07/08/2017 1030 EST Oxygen Saturation - - Inhaled Oxygen [...] encounter Progress Notes * Abdoulaye Gonzalez - 07/08/2017 1030 EST SUBJECTIVE: Chief Complaint Patient presents with ??? 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 Placed ice on it immediately. Developed large blister soon after burn occurred. Hasn't popped or drained. Has kept it covered with ointment and a clean nonstick gauze pad since. Very painful at first, now painful mostly if she inadvertently uses hand to hold or cone picker objects. Patient Active Problem List Diagnosis ??? Endometriosis [...] every 4 hours as needed for Wheezing. (Patient not taking: Reported on 03/25/2017) 1 Inhaler 2 ??? aspirin chewable 81 mg tablet Take 81 mg by mouth daily. ??? DIPHENHYDRAMINE HCL (BENADRYL ORAL) Take by mouth as needed. ??? ondansetron (ZOFRAN) 4 mg tablet Take 1 Tab by mouth every 8 hours as needed for Nausea. 6 Tab 0 ??? VITS62/FA/OM3/DHA/EPA ( GUMMY ORAL) Take by mouth daily. No current facility-administered medications on file prior to visit. OBJECTIVE: BP 102/72 Pulse 100 Temp (!) 35.6 ??C (96 ??F) (Tympanic) Resp 16 LMP 11/09/2016 Comment: Irregular cycles General: Alert, pleasant Skin: Large white blister in center of right palm. No erythema of surrounding skin. ASSESSMENT and PLAN: Encounter Diagnosis Name Primary? Superficial burn of palm of right hand, initial encounter Yes Reassured that she is treating this burn correctly. No need for alternative topical ointment. Lindsey is to keep skin soft and covered. Advised to monitor for signs of infection and call if needed. documented in this encounter Plan of Treatment Not on file documented as of this encounter Goals Goal Patient Goal Type Associated Problems Recent Progress Patient-Stated? Author Blood Pressure < 130/80 Blood Pressure 118/78(2017 16:01 EDT) No Rina Agosto MD Weight Loss General Yes Rina Agosto MD Note: Goal = 145lbs documented as of this encounter Visit Diagnoses Diagnosis Superficial burn of palm of right hand, initial encounter- Primary documented in this encounter Care Teams Hand Roller Engraver Relationship Specialty Start Date End Date Abdoulaye Gonzalez PCP - General 12/22/15 04/05/18 documented as of this encounter
--- OUTSIDE RECORDS SUMMARY | 2024-04-14 20:39 | XMS_ITS | Encounter Summary ---
Author Organization [facility] Address [address] [place] [address] Care Team Providers Care Cognos Name Role Phone Abdoulaye Gonzalez Primary Care Provider [phone] Reason for Visit * Reason Onset Date Comments Other 06/16/2017 Encounter Details Date Type Department Care Team (Late st Contact Info) Description 06/16/2017 Telephone [facility] OBGYN Services - [address] [address] Latisha Draper RN Other Social History Tobacco Use Types Packs/Day [...] Miscellaneous Notes * Telephone Encounter - Latisha Draper RN - 06/16/2017 1700 EST TC from Gladys who is unable to make it to the lab today for urine culture but is planning on definitely going tomorrow. Still feeling some bladder discomfort but no burning with urination. Doesn'tfeel like she's emptying totally at times and wonders if it's due to the baby's position. Doesn't want to come into [facility] because she does not have insurance. Will call CNM building economist if anything changes. documented in this encounter Plan of Treatment [...] on filedocumented in this encounter Care Teams Cognos Relationship Specialty Start Date End Date Abdoulaye Gonzalez PCP - General 12/22/15 04/05/18 documented as of this encounter
--- OUTSIDE RECORDS SUMMARY | 2024-04-14 20:39 | XMS_ITS | Encounter Summary ---
Author Organization [facility] Address [address] [place] [address] Care Team Providers Care Head Pastry Chef Name Role Phone Abdoulaye Gonzalez Primary Care Provider [phone] Reason for Visit * Reason Onset Date Comments Pre-visit Orders 07/10/2017 Encounter Details Date Type Department Care Team (Late st Contact Info) Description 07/10/2017 Orders Only [facility] OBGYN Services - [address] [phone] Elinor Borrero NP [facility] [address] [facility], [address] [place] [address] Encounter for supervision of other normal in third trimester (Primary Dx) Social History [...] encounter Progress Notes * Vilma Vazquez - 07/10/2017 0927 EST GBS pended documented in this encounter Plan of Treatment Not on file documented as of this encounter Goals Goal Patient Goal Type Associated Problems Recent Progress Patient-Stated? Author Blood Pressure < 130/80 Blood Pressure 118/78(2017 16:01 EDT) No Rina Agosto MD Weight Loss General Yes Rina Agosto MD Note: Goal = 145lbs documented as of this encounter Results * GROUP B STREP PCR (07/16/2017 11:59 EST) GROUP B STREP PCR Negative 07/17/2017 14:22 EST [facility] Specimen of unknown material (specimen) TOPOGRAPHY UNKNOWN / Unknown 07/16/2017 11:59 EST 07/16/2017 12:43 EST Elinor Borrero NP CNM MICROBIOL OGY - GENERAL ORDERABLES [facility] [address] [place] [address] documented in this encounter Visit Diagnoses Diagnosis Encounter for supervision of other normal in third trimester- Primary documented in this encounter Care Teams Head Pastry Chef Relationship Specialty Start Date End Date MgAbdoulaye gusman PCP - General 12/22/15 04/05/18 documented as of this encounter
--- OUTSIDE RECORDS SUMMARY | 2024-04-14 20:39 | XMS_ITS | Encounter Summary ---
Author Organization [facility] Address [address] [place] [address] Care Team Providers Care Detective Bureau Chief Name Role Phone Abdoulaye Gonzalez Primary Care Provider [phone] Reason for Visit * Reason Onset Date Comments Results 06/17/2017 Encounter Details Date Type Department Care Team (Late st Contact Info) Description 06/17/2017 Telephone [facility] OBGYN Services - [address] [id number] Earl Guadarrama, BODY MECHAN[employer] [facility] [address] [facility], [address] [place] [address] Results Social History Tobacco Use [...] encounter Miscellaneous Notes * Telephone Encounter - Earl Guadarrama CNM - 06/17/2017 1519 EST Called Gladys at 31w3d to report the urine she dropped off today had a negative UA, no sign of UTI. She reports some hematuria and is concerned about kidney stones. I recommended super hydrating and call for further evaluation if develops flank pain or worsening dysuria. documented in this encounter Plan of Treatment [...] on filedocumented in this encounter Care Teams Detective Bureau Chief Relationship Specialty Start Date End Date Abdoulaye Gonzalez PCP - General 12/22/15 04/05/18 documented as of this encounter
--- OUTSIDE RECORDS SUMMARY | 2024-04-14 20:39 | XMS_ITS | Encounter Summary ---
Author Organization [facility] Address [address] [place] [address] Care Team Providers Care Svp Digital Ad Sales Name Role Phone Abdoulaye Gonzalez Primary Care Provider [phone] Reason for Referral * Consult (Routine) - Specialty Report Received Specialty Diagnoses / Procedures Referred By Gregory velez Referred To Contact Diagnoses Encounter for supervision of other normal in third trimester Elinor Borrero NP CNM [address] [facility] [address] [place] [address] Referral ID Status Reason Start Date Expiration Date Visits Requested Visits Authorized [id number] Specialty Report Received Specialty Services Required 7 1 1 Question Answer What areas would you like the [facility] to focus on? [facility] Patient's Weight (kg) (1 lb = 0.4536 kg): 96.6 Patient's Height (cm) (1 in = 2.54 cm): 162.6 Comments As we discussed in your visit today, someone will be contacting you from the [facility] Team to schedule an appointment with you. If you do not hear from the [facility] within a week please call the Community [facility] Team at [phone]. Reason for Visit * Reason Comments Routine Visit Encounter Details Date Type Department Care Team ([facility] Contact Info) Description 06/04/2017 9:45 EDT Routine [facility] [place] [address] Elinor Borrero NP CNM [address] [facility], [address] [place] [address] GA: 29w4d Social History Tobacco Use Types Packs/Day Years [...] Sign Reading Time Taken Comments Blood Pressure 112/84 06/04/2017 0951 EDT Pulse - - Temperature - - Respiratory Rate - - Oxygen Saturation - - Inhaled Oxygen Concentration - - Weight 96.6 kg (213 lb) 06/04/2017 0951 EDT Height 162.6 cm (5' 4.02) 06/04/2017 0951 EDT Body Mass Index 36.54 06/04/2017 0951 EDT documented in this encounter [...] Progress Notes * Elinor Borrero, DAMASO - 06/04/2017 0945 EDT S: Gladys Lopez is here today for a visit at 29w4d. Started ferrous gluconate and had abdominal cramping and pain. Stopped when she stopped taking it. Denies constipation. Eating Fe rich foods, has handout. Has used ferrous sulfate in past and wants to switch to that. Declines RX. Has not yet done 24 hr urine. Interested in [facility] referral, having difficulty with [facility] and open enrollment. wants flu and tdap today. Taking ASA daily. Asking if it is okay that she hasn't gained much weight? Wants to get another massage and her provider requires a note. Denies SANTIAGO, visual changes, epigastric pain, bleeding, loss of fluid or painful contractions. + FM. O: Vitals: BP: 112/84 Height: 162.6 cm (64.02) Weight : 96.6 kg (213 lb) BMI: 36.62 Fundal Height (cm): 30 cm Heart Rate: 145 Movement: Present Presentation: Breech 27w breech, 44%tile TWG 5#, no interval WG A: 27 y.o. at 29w4d IUP BMI 35 Hx PEC, taking ASA daily, has not yet completed 24hr urine Anxiety/depression Asthma Hx kidney stones Rh pos P: Flu and Tdap today Encouraged to complete 24hr urine Discussed normal weight gain [facility] referral ordered 3rd trimester growth ultrasounds scheduled Note provided for massage Reviewed warning signs/when to call Follow up in 2 wks, sooner PRN documented in this encounter Miscellaneous Notes * Addendum Note - Christine Henry RN - 06/04/2017 1032 EDTAddended by: CHRISTINE HENRY on: 06/04/2017 10:32 Modules accepted: Orders documented in this encounter Plan of Treatment Scheduled Referrals Name Type Priority Associated Diagnoses Orde r Schedule AMB CONS/FOLLOW UP [facility] Outpatient Referral Routine Encounter for supervision of other normal in third trimester Ordered: 06/04/2017 documented as of this encounter Goals Goal Patient Goal Type Associated Problems Recent Progress Patient-Stated? Author Blood Pressure < 130/80 Blood Pressure 118/78(2017 16:01 EDT) No Rina Agosto MD Weight Loss General Yes Rina Agosto MD Note: Goal = 145lbs documented as of this encounter Visit Diagnoses Diagnosis Encounter for supervision of other normal in third trimester- Primary Need for Tdap vaccination Need for prophylactic vaccination with combined [id number] (DTP) vaccine Need for influenza vaccination Need for prophylactic vaccination and inoculation against influenza documented in this encounter Orders Immunization/Injection Count Last Ordered Date First Ordered Date INFLUENZA VACCINE QUAD PRESE RVATIVE FREE 0.5 ML IM 1 06/04/2017 TDAP VACCINE =>7YO IM 1 06/04/2017 documented in this encounter Care Teams Svp Digital Ad Sales Relationship Specialty Start Date End Date Abdoulaye Gonzalez PCP - General 12/22/15 04/05/18 documented as of this encounter
--- OUTSIDE RECORDS SUMMARY | 2024-04-14 20:39 | XMS_ITS | Encounter Summary ---
Author Organization [facility] Address [address] [place] [address] Care Team Providers Care Pricing Specialist Name Role Phone Abdoulaye Gonzalez Primary Care Provider [phone] Reason for Referral * Follow Up (48 Hrs (Urgent)) - Specialty Report Received Specialty Diagnoses / Procedures Referred By Contact Referred To Contact Obstetrics & Gynecology Diagnoses Supervision of high risk in third trimester Kidney stone Earl Guadarrama NP CNM [address] [phone] [facility] [address] [place] [address] Referral ID Status Reason Start Date Expiration Date Visits Requested Visits Authorized [id number] Specialty Report Received Specialty Services Required 7 1 1 Question Answer Reason for Request: Isai PETIT appointmnet on Sunday 06/24, please schedule at 1pm with Lashon Interiano if possible. * (Routine) - Closed Specialty Diagnoses / Procedures Referred By Gregory velez Referred To Contact Earl Guadarrama NP CNM [address] [address] Referral ID Status Reason Start Date Expiration Date V isits Requested Visits Authorized [id number] Closed Specialty Services Required 06/21/2017 1 1 Comments I have requested an appointment for you on Friday06/24/17 at 1pm with Lashon Interiano CNM. Please call [phone] on Friday to confirm your appointment. * (Routine) - Closed Specialty Diagnoses / Procedures Referred By Contac t Referred To Contact Earl Guadarrama NP CNM [address] [phone] Referral ID Status Reason Start Date Expiration Date V isits Requested Visits Authorized [id number] Closed Specialty Services Required 06/21/2017 1 1 Reason for Visit * Reason Comments Flank Pain Pt with R sided flan k pain and associated abdominal pain. Pt states she doesn't feel well and notes nausea and dysuria. some hematuria. hx of kidney stones. 32 weeks Encounter Details Date Type Department Care Team (Late st Contact Info) Description 06/21/2017 14:12 EST - 06/21/2017 16:50 EST Emergency [facility] Unit [address] [place] [address] [id number] Feliberto Rodarte MD [address], [facility] [address] [place] [address] Emergency, Jay, Renetta Monahan MD 111 [facility], [address] [address] Renetta Flor (Fellow)MD Jed (Primary Dx); Supervision of high risk in third trimester Discharge Disposition: Home or Self Care Social [...] Sign Reading Time Taken Comments Blood Pressure 100/62 06/21/2017 1338 EST Pulse 79 06/21/2017 1338 EST Temperature 35.7 ??C (96.3 ??F) 06/21/2017 1338 EST Respiratory Rate 16 06/21/2017 1338 EST Oxygen Saturation 100% 06/21/2017 1338 EST Inhaled Oxygen Concentration - - Weight 97.5 kg (215 lb) 06/21/2017 1113 EST Height 162.6 cm (5' 4) 06/21/2017 1113 EST Body Mass Index 36.9 06/21/2017 1113 EST documented in this encounter Functional Status [...] O26.893 Other specified related conditions, third trimester-O26.893[ICD-10-CM] O09.293 Supervision of with other poor reproductive or obstetric history, third trimester-O09.293[ICD-10-CM] R10.11 Right upper quadrant pain-R10.11[ICD-10-CM] N13.2 Hydronephrosis with renal and ureteral calculous obstruction-N13.2[ICD-10-CM] Z87.442 Personal history of urinary calculi-Z87.442[ICD-10-CM] Z3A.32 32 weeks gestation of -Z3A.32[ICD-10-CM] Z88.5 Allergy status to narcotic agent status-Z88.5[ICD-10-CM] Z88.6 Allergy status to analgesic agent status-Z88.6[ICD-10-CM] Z91.040 Latex allergy status-Z91.040[ICD-10-CM] Z87.891 Personal history of nicotine dependence-Z87.891[ICD-10-CM] J45.909 Unspecified asthma, uncomplicated-J45.909[ICD-10-CM] documented in this encounter Discharge Instructions * Attachments The following attachments cannot be sent through Care Everywhere. * KIDNEY STONE (LIBERIAN) documented in this encounter Medications at Time [...] Max: 24 mg 10 Tab 06/23/2017 07/09/2017 HYDROmorphone (DILAUDID) 2 mg tablet Take 1-2 Tabs by mouth every 4 hours as needed for Pain. Daily Max: 24 mg 10 Tab 06/21/2017 06/23/2017 ondansetron (ZOFRAN) 4 mg tablet Take 1 [...] Dispensed Refills Start Date End Da te ondansetron (ZOFRAN) 4 mg tablet Take 1 Tab by mouth every 8 hours as needed for Nausea. 6 Tab 06/21/2017 07/16/2017 HYDROmorphone (DILAUDID) 2 mg tablet Take 1-2 Tabs by mouth every 4 hours as needed for Pain. Daily Max: 24 mg 10 Tab 06/21/2017 06/23/2017 acetaminophen (TYLENOL) 500 mg tablet Take 2 Tabs by mouth every 6 hours as needed for Pain. 06/21/2017 08/13/2017 documented in this encounter Discharge Disposition Disposition Code Departure Means Destination Home or Self Care documented in this encounter Progress Notes * Romina Azevedo RN - 06/21/2017 1529 EST Pt up to BR , CLean catch UA obtained. 1545 PO Dilaudid given , states pain in right flank area, 4/10.EFM off, Pt repositioned to right side. Drinking po fluids well. 1615 Up to BR, , voided qs States pain 2/10 now. 1630 pt RX for Percocet wasted per PHarmacy policy, per CNM, as she will write RX for DIlaudid instead. 1645 written discharge instructins given to pt. IV dc'd, CNM given verbal discharge instructions. All questions answered, Home undelivered w/ strainer * Earl Guadarrama CNM - 06/21/2017 1522 EST S: Gladys as just seen in ED, went there directly due to 10/10 right sided flank pain and dysuria, similar to the last time she had a kidney stone 18 monhs ago. Was given IV dilaudid with some relief and is drinking water, pain 6/10 after time in the ED. Did not receive IV fluids. On admission inED her blood pressure was 158/90. Repeat blood pressures were normal. No headache, visual changes or epigastric pain. Asking what happens if she has a stone that gets stuck - 18 months ago that happened and she needed surgery to have it removed. Also asking about safety of pain meds in . During her visit here on L&D she reports good relief from PO dilaudid and states is now 2/10 and manageable. O: BP 100/62 Pulse 79 Temp 35.7 ??C (96.3 ??F) (Oral) Resp 16 Ht 162.6 cm (64) Wt 97.5 kg (215 lb) LMP 11/09/2016 Comment: Irregular cycles SpO2 100% BMI 36.9 kg/m2 Abdomen: Gravid FHR: Baseline 130, moderate variability, + accels, no decels UCs: irritability + Right flank tenderness, no CVA tenderness No left sided flank or CVA tenderness Results for orders placed or performed during the hospital encounter of 06/21/17 (from the past 24 hour(s)) URINE SEDIMENT ANALYSIS (MICROSCOPIC ONLY) Collection Time: 06/21/17 12:54 Result Value Ref Range Urine RBC Count Automated 0 to 2 0 to 2 /HPF Urine WBC Count Automated 0 to 3 0 to 3 /HPF Urine Squamous Epithelial Cell Count, Automated None seen None seen /LPF Urine Hyaline Casts, Automated < or = 10 < or = 10 /LPF Urine Bacteria Count, Automated None seen None seen UA Comment Sediment results URINE CULTURE IF UA POSITIVE - NON POCT URINALYSIS ONLY Collection Time: 06/21/17 15:30 Result Value Ref Range Culture if Indicated Culture not indicated by urinalysis results. UA CHEMICAL (DIPSTICK ONLY) Collection Time: 06/21/17 15:30 Result Value Ref Range Color, UA Yellow Clarity, UA Clear Glucose, UA Neg Neg Bilirubin, UA Neg Neg Ketones, UA Neg Neg Refractometer SG,Urine 1.009 1.001 - 1.035 Blood, UA Neg Neg pH, UA 6.5 4.6 - 8.0 Protein, UA Neg Neg Urobilinogen, UA Normal Normal E.U./dl Nitrite, UA Neg Neg Leuk Esterase Neg Neg UA Method Used POCT ultrasound in ED showing right hydronephrosis, no visible caliculi A: 27 yo at 32w0d with presumed kidney stones History of kidney stones and kidney stone surgery December 2015 No evidence of UTI FHR Cat I O pos/GBS unknown History of preeclampsia, BP elevated on admission in context of pain, normotensive thereafter, no s/sx PEC P: Push fluids: 1 liter LR bolus given plus additional 1 liter of PO water Given excellent response to 2mg dilaudid PO, we wasted the percocet starter pack that had been givein the ED. I prescribed Dilauidid 2-4mg PO q 4 hours PRN, 10 tablets, no refills. Opiate consent form already on file from ED visit. Also prescribed Zofran 4mg q 8h PRN for nausea management. Encouraged to optimize tylenol, may take 1000mg q 6h PRN, and use dilaudid as needed for break through pain. Consider Colace PRN to prevent constipation when taking dilaudid. Follow-up in 3 days in office to re-assess symptoms and pain control - left message for hotel office manager to schedule appointment 06/24 DAMASO. documented in this encounter ED Notes * Feliberto Rodarte MD - 06/21/2017 1120 EST DOS: 06/21/2017 Chief Complaint Patient presents with ??? Flank Pain Pt with R sided flank pain and associated abdominal pain. Pt states she doesn't feel well and notesnausea and dysuria. some hematuria. hx of kidney stones. 32 weeks HPI HPI Comments: I, Aga Reyes, am scribing for Feliberto Rodarte MD while he/she is personally performing the service. Aga Reyes 06/21/2017 11:20 Gladys Lopez is a 27 y.o. female with a history of recurrent kidney stones currently 32 weeks . She presents with acute onset of right flank pain 1 hour prior to presentation, colicky in nature, without alleviating or exacerbating factors. Patient reports sudden onset of 10 out of 10sharp stabbing right flank pain radiating anteriorly with associated nausea and dysuria but withoutemesis. She says the pain is identical to previous episodes of kidney stones. She did notice some mild hematuria this morning and was in her usual state of health yesterday. Her has been progressing normally she has not had any vaginal bleeding, lower abdominal cramping, or abnormal vaginal discharge. She denies associated fevers, chills, sweats, or other systemic symptoms. She presentshypertensive, tachycardic, pacing, and unable to find a position of comfort in the room. The history is provided by the patient, medical records and the spouse. Flank Pain Associated symptoms: dysuria, hematuria and nausea Associated symptoms: no chest pain, no chills, no fatigue, no fever, no shortness of breath, no sore throat, no vaginal bleeding, no vaginal discharge and no vomiting Review of Systems Review of Systems Constitutional: Negative. Negative for chills, diaphoresis, fatigue and fever. HENT: Negative. Negative for congestion, sore throat and trouble swallowing. Eyes: Negative. Negative for visual disturbance. Respiratory: Negative. Negative for chest tightness and shortness of breath. Cardiovascular: Negative. Negative for chest pain, palpitations and leg swelling. Gastrointestinal: Positive for nausea. Negative for vomiting. Endocrine: Negative. Genitourinary: Positive for dysuria, flank pain and hematuria. Negative for vaginal bleeding and vaginal discharge. Musculoskeletal: Negative for arthralgias. Skin: Negative. Negative for rash. Allergic/Immunologic: Negative. Negative for immunocompromised state. Neurological: Negative. Negative for dizziness and headaches. Hematological: Negative. Negative for adenopathy. Does not bruise/bleed easily. Psychiatric/Behavioral: Negative. Negative for confusion. All other systems reviewed and are negative. The patient's past medical, family and social history was reviewed and updated as needed. Allergies Allergen Reactions ??? Adhesive Rash ??? Latex, Natural Rubber Rash ??? Morphine Nausea And Vomiting Morphine caused patient to feel very aggressive ??? Nickel Swelling ??? Tramadol Nausea Only Dizziness Vital Signs Temp: 37.1 ??C (98.7 ??F) Temp src: Oral Pulse: (!) 125 Resp: 18 SpO2: 100 % BP: (!) 158/90 BP Device: BP Machine Patient Position: Sitting BP Cuff Location: Right arm Physical Exam Constitutional: She is oriented to person, place, and time. She appears well- developed and well-nourished. She appears distressed. Distressed due to pain, unable to find position of comfort. HENT: Head: Normocephalic and atraumatic. Eyes: Conjunctivae and EOM are normal. Pupils are equal, round, and reactive to light. Right eye exhibits no discharge. Left eye exhibits no discharge. Neck: Normal range of motion. Neck supple. No tracheal deviation present. Cardiovascular: Normal rate, regular rhythm and normal heart sounds. No murmur heard. Pulmonary/Chest: Effort normal and breath sounds normal. No respiratory distress. Abdominal: Soft. Bowel sounds are normal. She exhibits no distension. There is no tenderness. Musculoskeletal: Normal range of motion. She exhibits no edema. Neurological: She is alert and oriented to person, place, and time. Skin: Skin is warm and dry. No rash noted. Psychiatric: She has a normal mood and affect. Nursing note and vitals reviewed. RESULTS EKG orders: None Radiology orders: POCT US RENAL Patient had POCT US renal. Findings include very mild right-sided hydronephrosis, live IUP. Intrauterine was also evaluated while doing her renal ultrasound and saw spontaneous movement and cardiac activity. Images obtained, reviewed, and interpreted independently by myself. Please see formal report in the [facility] Images section. Images saved in PACS. ED Lab Results Labs Reviewed - No data to display Relevant Data Procedures ED COURSE A medical screening exam was performed. 27-year-old female with history of multiple kidney stones who presents with sudden onset of right flank pain that is sharp and colicky in nature without alleviating or exacerbating factors, unable tofind a position of comfort, consistent with acute nephrolithiasis. Patient responded well to IV analgesia and antiemetics with resolution in her pain. Bedside ultrasound revealed mild right-sided hydronephrosis. Urinalysis showed no bacteria to suggest associated infection. She remained afebrile with normal vital signs, tolerating oral intake, and able to urinate without difficulty. She was discharged home with a short course of Percocet as needed for pain control and will be going directly upstairs for evaluation by labor and delivery. Patient signed opiate consent form appropriately. Of note I did evaluate her intrauterine while doing her renal ultrasound and saw spontaneous movement and cardiac activity. Return precautions were given which the patient understood. 1220: Discussed case via phone with labor and delivery. ASSESSMENT AND PLAN Final diagnoses: None DISPOSITION: No disposition on file The patient's pain was managed to an adequate level weighing risk vs. benefit of further medications. Upon departure from the Emergency Department, the patient's pain was 1 on a zero to ten scale. Any further pain treatment will be at the discretion of the provider following up with the patient based on their clinical assessment. Condition at departure from the Emergency Department: Improved PCP: Abdoulaye Gonzalez [facility] 06/21/2017 11:20 No flowsheet data found. This documentation is recorded by Aga Reyes acting as Scribe under the direction and presence Feliberto Louise MD. Feliberto Rodarte MD: I personally performed the services recorded by the scribe in my presence. I confirm the scribe's documentation has been reviewed by me to accurately and completely record my work,treatment, procedures, and medical decision making. documented in this encounter Plan of Treatment Scheduled Referrals Name Type Priority Associated Diagnoses Order Schedule PROVIDER FOLLOW-UP INSTRUCTIONS Outpatient Referral Routine Ordered: 06/21/2017 PROVIDER FOLLOW-UP INSTRUCTIONS Outpatient Referral Routine Ordered: 06/21/2017 AMB CONS/FOLLOW UP OBSTETRICS Outpatient Referral Routine Supervision of high risk in third trimester Kidney stone Ordered: 06/21/2017 documented as of this encounter Goals Goal Patient Goal Type Associated Problems Recent Progress Patient-Stated? Author Blood Pressure < 130/80 Blood Pressure 118/78(2017 16:01 EDT) No Rina Agosto MD Weight Loss General Yes Rina Agosto MD Note: Goal = 145lbs documented as of this encounter Procedures Procedure Name Priority Date/Time Associated Diagnosis Comments UA CHEMICAL ONLY Routine 06/21/2017 15:3 0 EST URINE CULTURE IF POSITIVE Routine 06/21/2017 15:30 EST UA SEDIMENT ONLY STAT 06/21/2017 12:5 4 EST POCT US RENAL STAT 06/21/2017 11:40 EST documented in this encounter Results * UA CHEMICAL (DIPSTICK ONLY) (06/21/2017 15:30 EST) Color, UA Yellow 06/21/2017 15:52 EST [facility] Clarity, UA Clear 06/21/2017 15:52 [facility] Glucose, UA Neg Neg 06/21/2017 15:52 [facility] Bilirubin, UA Neg Neg 06/21/2017 15:52 [facility] Ketones, UA Neg Neg 06/21/2017 15:52 [facility] Refractometer SG,Urine 1.009 1.001 - 1.035 06/21/2017 15:52 [facility] Blood, UA Neg Neg 06/21/2017 15:52 [facility] pH, UA 6.5 4.6 - 8.0 06/21/2017 15:52 [facility] Protein, UA Neg Neg 06/21/2017 15:52 [facility] Urobilinogen, UA Normal Normal E.U./dl 06/21/2017 15:52 [facility] Nitrite, UA Neg Neg 06/21/2017 15:52 [facility] Leuk Esterase Neg Neg 06/21/2017 15:52 [facility] UA Method Used 06/21/2017 15:29 [facility] Comment: Testing performed using Reglare [id number]. Urine specimen (specimen) URINE / Unknown 06/21/2017 15:30 EST 06/21/2017 15:44 EST Earl YANG URINALYSIS ORDERABLES [facility] [address] [place] [address] * URINE CULTURE IF UA POSITIVE - NON POCT URINALYSIS ONLY (06/21/2017 15:30 EST) Culture if Indicated Culture not indicated by urinalysis results. 06/21/2017 15:52 [facility] Urine specimen (specimen) TOPOGRAPHY UNKNOWN / Unknown 06/21/2017 15:30 EST 06/21/2017 15:44 EST Earl YANGM MICROBIOLOG Y - GENERAL ORDERABLES Performing Organization Address [facility] Co de Phone Number [facility] [address] [place] [address] * URINE SEDIMENT ANALYSIS (MICROSCOPIC ONLY) (06/21/2017 12:54 EST) Urine RBC Count Automated 0 to 2 0 to 2 /HPF 06/21/2017 13:09 [facility] Urine WBC Count Automated 0 to 3 0 to 3 /HPF 06/21/2017 13:09 [facility] Urine Squamous Epithelial Cell Count, Automated None seen None seen /LPF 06/21/2017 13:09 [facility] Urine Hyaline Casts, Automated < or = 10 < or = 10 /LPF 06/21/2017 13:09 [facility] Urine Bacteria Count, Automated None seen None seen 06/21/2017 13:09 [facility] UA Comment Sediment results 06/21/2017 13:09 [facility] Comment: are unreliable on urines unrefrig >2hrs or refrig >8hrs. Urine specimen (specimen) URINE / Unknown 06/21/2017 12:54 EST 06/21/2017 13:00 EST Feliberto Rodarte MD RDIN URINALYSIS ORDERA BLES Performing Organization Address [facility] Co de Phone Number [facility] [address] [place] [address] * POCT US RENAL (06/21/2017 11:40 EST) Anatomical Region Laterality Modality Other 06/21/2017 11:4 0 EST 06/21/2017 13:31 EST Narrative 06/21/2017 13:31 EST [facility] - Ultrasound Exam Date: 06/21/2017 Exam Type: POCT US RENAL Refrigeration Brazer/Solderer: Feliberto Rodarte MD Attending: Feliberto Rodarte MD Worksheet: POCUS_Renal Exam Information: ?? A focused (limited) ultrasound of the kidneys was performed to evaluate for hydronephrosis and nephrolithiasis. ?? Exam type: Clinically indicated Indication(s) for Exam: ?? The exam was performed with the following indications: Flank pain Findings: ?? Hydronephrosis of the LEFT kidney: None ?? Hydronephrosis of the RIGHT kidney: Mild (Grade 1) ?? Ureteral calculi on the RIGHT: Absent ?? Ureteral caculi on the LEFT: Absent Interpretation: ?? Hydronephrosis ?? Other: very mild hydronephrosis on R, live IUP Views Obtained ?? The following structures were examined in two orthogonal planes from a transabdominal approach: ALL OF THE VIEWS ABOVE WERE OBTAINED Confirmatory study: ?? What confirmatory study was done?: Not applicable Physician Signature: ?? I review and approve of the documentation above.: Signed by Feliberto Rodarte MD on Wednesday, June 21, 2017 at 1:30:49 PM This exam was performed and interpreted by the [facility] ED Staff Procedure Note Feliberto Rodarte MD - 06/21/2017 [facility] - Ultrasound Exam Date: 06/21/2017 Exam Type: POCT US RENAL Refrigeration Brazer/Solderer: Feliberto Rodarte MD Attending: Feliberto Rodarte MD Worksheet: POCUS_Renal Exam Information: A focused (limited) ultrasound of the kidneys was performed to evaluate for hydronephrosis and nephrolithiasis. Exam type: Clinically indicated Indication(s) for Exam: The exam was performed with the following indications: Flank pain Findings: Hydronephrosis of the LEFT kidney: None Hydronephrosis of the RIGHT kidney: Mild (Grade 1) Ureteral calculi on the RIGHT: Absent Ureteral caculi on the LEFT: Absent Interpretation: Hydronephrosis Other: very mild hydronephrosis on R, live IUP Views Obtained The following structures were examined in two orthogonal planes from a transabdominal approach: ALL OF THE VIEWS ABOVE WERE OBTAINED Confirmatory study: What confirmatory study was done?: Not applicable Physician Signature: I review and approve of the documentation above.: Signed by Feliberto Rodarte MD on Wednesday, June 21, 2017 at 1:30:49 PM This exam was performed and interpreted by the [facility] ED Staff Feliberto Rodarte MD [facility] IMG POCT US ORDER PIETER documented in this encounter Visit Diagnoses Diagnosis Kidney stone- Primary Calculus of kidney Kidney stone Calculus of kidney Supervision of high risk in third trimester Unspecified high-risk Supervision of high-risk Unspecified high-risk documented in this encounter Administered Medications Inactive Administered Medications - up to 3 most recent administrations Medication Order MAR Action Action Date Dose Rate Site acetaminophen (TYLENOL) tablet 1,000 mg 1,000 mg, oral, NOW X1, 1 dose, On 06/21/17 at 1145, STAT Given 06/21/2017 11:59 EST 1,000 mg HYDROmorphone (DILAUDID) injection 1 mg 1 mg, intravenous, NOW X1, 1 dose, On 06/21/17 at 1145, STAT Given 06/21/2017 11:59 EST 1 mg HYDROmorphone (DILAUDID) tablet 2-4 mg 2-4 mg, oral, EVERY 4 HOURS PRN, Starting on 06/21/17 at 1516, Until 06/21/17 at 1855, Pain, Routine Given 06/21/2017 15:45 EST 2 mg lactated ringers (LR) infusion at 150-200 mL/hr, intravenous, CONTINUOUS, Starting on 06/21/17 at 1545, Until 06/21/17 at 1855, Routine New Bag 06/21/2017 14:50 EST 200 mL/hr ondansetron (PF) (ZOFRAN) injection 4 mg 4 mg, intravenous, NOW X1, 1 dose, On 06/21/17 at 1145, STAT Given 06/21/2017 11:59 EST 4 mg Oxycodone w APAP?? 5- 325 mg Tab STARTER PACK 1 Package, oral, NOW X1, 1 dose, On 06/21/17 at 1330, STAT Given 06/21/2017 13:39 EST 1 Package documented in this encounter Discontinued Medications Medication Sig Discontinue Reason Start Date End Da te acetaminophen (TYLENOL) 500 mg tablet Take 500 mg by mouth every 6 hours as needed for Pain. 06/21/2017 documented as of this encounter Active and Recently Administered Medications Times are shown in EST. Scheduled Medication Order 06/19/2017 06/20/2017 06/21/2017 acetaminophen (TYLENOL) tablet 1,000 mg (COMPLETED) 1,000 mg, oral, NOW X1, 1 dose, On 06/21/17 at 1145, STAT 1159 (Given - Provid er: Carmelo Bertrand RN) HYDROmorphone (DILAUDID) injection 1 mg (COMPLETED) 1 mg, intravenous, NOW X1, 1 dose, On 06/21/17 at 1145, STAT 1159 (Given - Provid er: Carmelo Bertrand, STACEY) ondansetron (PF) (ZOFRAN) injection 4 mg (COMPLETED) 4 mg, intravenous, NOW X1, 1 dose, On 06/21/17 at 1145, STAT 1159 (Given - Provid er: Carmelo Bertrand, RN) Oxycodone w APAP?? 5- 325 mg Tab STARTER PACK (COMPLETED) 1 Package, oral, NOW X1, 1 dose, On 06/21/17 at 1330, STAT 1339 (Given - Provid er: Carmelo Bertrand RN) Continuous Medication Order 06/19/2017 06/20/2017 06/21/2017 lactated ringers (LR) infusion at 150-200 mL/hr, intravenous, CONTINUOUS, Starting on 06/21/17 at 1545, Until 06/21/17 at 1855, Routine 1450 (New Bag - Prov ider: Romina Azevedo RN) PRN Medication Order 06/19/2017 06/20/2017 06/21/2017 HYDROmorphone (DILAUDID) tablet 2-4 mg 2-4 mg, oral, EVERY 4 HOURS PRN, Starting on 06/21/17 at 1516, Until 06/21/17 at 1855, Pain, Routine 1545 (Given - Provid er: Romina Azevedo RN) documented in this encounter Orders Diet Count Last Ordered Date First Orde red Date DISCHARGE DIET 2 06/21/2017 Nursing Count Last Ordered Date First Orde red Date ACTIVITY INSTRUCTIONS 1 06/21/2017 BATHING INSTRUCTIONS 1 06/21/2017 Admission Count Last Ordered Date First Orde red Date STATUS: OUTPATIENT OBSERVATION SERVICES 1 1 08/21/2016 Transfer Count Last Ordered Date First Orde red Date NOTIFY PPS OF DISCHARGE COMPLETE 1 06/21/20 Discharge Count Last Ordered Date First Orde red Date DISCHARGE PATIENT 1 06/21/2017 Legal Count Last Ordered Date First Orde red Date MISCELLANEOUS DISCHARGE INSTRUCTIONS 1 06/11 documented in this encounter Care Teams Pricing Specialist Relationship Specialty Start Date End Date Abdoulaye Gonzalez PCP - General 12/22/15 04/05/18 documented as of this encounter
--- OUTSIDE RECORDS SUMMARY | 2024-04-14 20:39 | XMS_ITS | Encounter Summary ---
Author Organization [facility] Address [address] [place] [address] Care Team Providers Care Receiving Associate Store Name Role Phone Abdoulaye Gonzalez Primary Care Provider [phone] Reason for Visit * Reason Onset Date Comments Other 06/11/2017 Encounter Details Date Type Department Care Team (Late st Contact Info) Description 06/11/2017 Telephone [facility] OBGYN Services - [address] [address] Clara Barry, RN Other Social History Tobacco Use Types [...] Telephone Encounter - Clara Barry, RN - 06/11/2017 1602 EDT TC from Gladys @ 30+4 weeks who reports losing my mucous plug. Denies any bloody show, ctx or leaking of fluids. +FM. Reassured that this does not necessarily indicate that labor is impending. Advised to watch symptoms and to notify us of any significant changes or worsening symptoms. documented in this encounter Plan [...] on filedocumented in this encounter Care Teams Receiving Associate Store Relationship Specialty Start Date End Date Abdoulaye Gonzalez PCP - General 12/22/15 04/05/18 documented as of this encounter
--- OUTSIDE RECORDS SUMMARY | 2024-04-14 20:39 | XMS_ITS | Encounter Summary ---
Author Organization [facility] Address [address] [place] [address] Care Team Providers Care Wardrobe Mistress Name Role Phone Abdoulaye Gonzalez Primary Care Provider [phone] Reason for Visit * Reason Onset Date Comments Abdominal Pain 05/26/2017 Encounter Details Date Type Department Care Team (Late st Contact Info) Description 05/26/2017 Telephone [facility] OBGYN Services - [address] [id number] Earl Guadarrama, GLASS CUTTER HELPER [facility] [address] [facility], [address] [place] [address] Abdominal Pain Social History Tobacco Use Types Packs/Day Years [...] Telephone Encounter - Earl Guadarrama CNM - 05/26/2017 0513 EDT Gladys called at 28w1d reporting episode of diarrhea this morning and hot flashes, followed by irregular sharp lower abdominal pains and uterine tightening all day. Hasn't been tracking them but thinks 3-4 pains in the last hour. No bleeding or LOF. +FM. Advised warm bath, push PO fluids and call with 5 or more ctx in an hour, bleeding, LOF or decreased movement. Gladys agreed with plan. documented in this encounter Plan of [...] on filedocumented in this encounter Care Teams Wardrobe Mistress Relationship Specialty Start Date End Date Abdoulaye Gonzalez PCP - General 12/22/15 04/05/18 documented as of this encounter
--- OUTSIDE RECORDS SUMMARY | 2024-04-14 20:39 | XMS_ITS | Encounter Summary ---
Author Organization [facility] Address [address] [place] [address] Care Team Providers Care Pit Furnace Melter Name Role Phone Abdoulaye Gonzalez Primary Care Provider [phone] Reason for Visit * Reason Comments Social Work Encounter Details Date Type Department Care Team (Late st Contact Info) Description 06/11/2017 Community Health Team [facility] OBGYN Services - [facility] [address] [place] [address] Lacie Cooper Social History Tobacco Use Types [...] as of this encounter Progress Notes * Lacie Cooper - 06/11/2017 1131 EDT Community Health Team Social Work Initial Encounter Date of visit: 06/11/2017 Social Work initial encounter with Gladys Lopez for social work, original referral from Elinor Borrero CNM. 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 At this time No question data found. BEHAVIORAL HEALTH SCREENING: Comment(s): n/a TOPIC OF CONVERSATION: Patient is a 27 yo female due with her second child on August 16. 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 Patient reports significant debt and no insurance due to [employer]s premium of $500 and her inability to pay this while paying off debt. Patient reports her Medicaid application was accepted and four months later was told they made a mistake, and that it would be $500/month moving forward. CONNIE referred patient to [facility] (Health Assistance Program), as patient does not want to call [employer] SW explained that [facility] will make the call on her behalf and that they specialize in insurance issues. CONNIE referred patient to [employer] with the goal of speaking to a director of financial planning to assess current plan to pay off debt. CONNIE offered to call [facility] and [facility] during the meeting and patient declined stating she will call when she is home. Patient reports she does not qualify for [employer] due to her husbands take home pay. CONNIE encouraged patient to re-apply now that she is , adding one more person to the household. Again, SW offered to support patient in applying and patient declined, stating she will apply at home online. CONNIE will check in with patient during patient's next scheduled appt. (06/18) to assess progress towards goals. STAGE OF CHANGE: Preparation PATIENT IDENTIFIED GOALS: Obtain Health Insurance, pay off debt PLAN: Patient to call [facility] for support with insurance. Patient to call [employer] Patient to re-apply for [employer] given she is , adding one more to the household ADDITIONAL INFORMATION FOR PROVIDER: n/a Patient's Primary Care Site: [facility] Total Time: 60 min consult, 10 min charting Referral: ALTHEA, [employer], [facility] Follow up: ongoing Status: Active documented in this encounter Plan of Treatment [...] on filedocumented in this encounter Care Teams Pit Furnace Melter Relationship Specialty Start Date End Date Abdoulaye Gonzalez PCP - General 12/22/15 04/05/18 documented as of this encounter
--- OUTSIDE RECORDS SUMMARY | 2024-04-14 20:39 | XMS_ITS | Encounter Summary ---
Author Organization [facility] Address [address] [place] [address] Care Team Providers Care Metal And Plastic Heater Name Role Phone Abdoulaye Gonzalez Primary Care Provider [phone] Reason for Visit * Reason Comments Routine Visit -LOF, -VB, -CTX, +FM Encounter Details Date Type Department Care Team (Late st Contact Info) Description 05/21/2017 10:45 EDT Routine [facility] OBGYN Services - [address] [phone] Genia Peters PAPER CONE MACHINE TENDER [facility] [address] [facility], [address] [place] [address] GA: 27w4d Social History Tobacco Use Types Packs/Day Years [...] Sign Reading Time Taken Comments Blood Pressure 124/82 05/21/2017 1033 EDT Pulse - - Temperature - - Respiratory Rate - - Oxygen Saturation - - Inhaled Oxygen Concentration - - Weight 97 kg (213 lb 12.8 oz) 05/21/2017 1033 ED T Height 162.6 cm (5' 4.02) 05/21/2017 1033 EDT Body Mass Index 36.68 05/21/2017 1033 EDT documented in this encounter Functional Status [...] Progress Notes * Genia Peters CNM - 05/21/2017 1045 EDT S: Gladys Lopez is here today for a visit. Here with family. Just came from /s andeverything looks good but baby is still breech and she's worried about that. Has no health insurance and doesn't want to have to pay for flu vaccine. I suggested that she get the flu shot at [facility] or another place where it is cheaper. Discussed anemia. O: Vitals: BP: 124/82 Height: 162.6 cm (64.02) Weight : 97 kg (213 lb 12.8 oz) BMI: 36.757 U/S today - EFW 44% 1198g A: 27 y.o. at 27w4d IUP Anemia Uninsured P: Recommended flu vaccine elsewhere. Please address [facility] referral next visit for insurance status and/or other resources. Given iron handout and recommended ferrous gluconate. Follow up in 2 wks documented in [...] Diagnoses Diagnosis Supervision of high risk in second trimester- Primary Unspecified high-risk documented in this encounter Historical Medications * This list may reflect changes made after this encounter. Medication Sig Dispensed Refills Start Date End Date DIPHENHYDRAMINE HCL (BENADRYL ORAL) Take by mouth as needed. 08/13/2017 added in this encounter Care Teams Metal And Plastic Heater Relationship Specialty Start Date End Date Abdoulaye Gonzalez PCP - General 12/22/15 04/05/18 documented as of this encounter
--- OUTSIDE RECORDS SUMMARY | 2024-04-14 20:39 | XMS_ITS | Encounter Summary ---
Author Organization [facility] Address [address] [place] [address] Care Team Providers Care Educational Paraprofessional Name Role Phone Abdoulaye Gonzalez Primary Care Provider [phone] Reason for Visit * Reason Onset Date Comments Headache 07/02/2017 Encounter Details Date Type Department Care Team (Late st Contact Info) Description 07/02/2017 Telephone [facility] Obstetrics & Midwifery - [facility] [address] [place] [address] Emani Sanchez RN Headache Social History Tobacco Use Types Packs/Day Years [...] encounter Miscellaneous Notes * Telephone Encounter - Emnai Sanchez RN - 07/02/2017 1645 EST TC transferred from phone room- patient calling back to check in since her appt this morning w/ W.DAMASO Borrero. States her headache hasn't improved since this AM- still about a 6 / 10 on pain scale. Took 1000mg Tylenol around 2:30pm and has been pushing oral fluids. States she's also drank about 2 cups of coffee to see if the caffeine helped. Some blurry vision, but denies sparklers/floaters. Unsure if this is similar to her typical migraines my brain is a little fuzzy. She took her BP this afternoon at home and it was 110/60, patient states she was laying on left side for BP. Of note, she states the last time she remembers urinating was before her appt this morning. Unsure what to do/try now. Discussed with LINETTE Reece CNM sheet music salesperson who will follow up with patient via phone. documented in this encounter Plan of Treatment [...] on filedocumented in this encounter Care Teams Educational Paraprofessional Relationship Specialty Start Date End Date Abdoulaye Gonzalez PCP - General 12/22/15 04/05/18 documented as of this encounter
--- OUTSIDE RECORDS SUMMARY | 2024-04-14 20:39 | XMS_ITS | Encounter Summary ---
Author Organization [facility] Address [address] [place] [address] Care Team Providers Care Data Acquisition Technician Name Role Phone Abdoulaye Gonzalez Primary Care Provider [phone] Reason for Visit * Reason Onset Date Comments Flu Vaccine 05/28/2017 wishes to receiv e Encounter Details Date Type Department Care Team (Late st Contact Info) Description 05/28/2017 Telephone [facility] OBGYN Services - [place] [address] [place] [address] Clara Barry, RN Flu Vaccine (wishes to receive) Social History Tobacco Use Types Packs/Day Years [...] Telephone Encounter - Clara Barry, RN - 05/28/2017 1420 EDT TC from Gladys who wishes to receive the flu shot. Attempted to get at [facility] but was told that they would not vaccinate a woman. Advised pt that she may receive her flu shot here at [facility] appt which she plans on doing. documented in this encounter Plan of Treatment [...] on filedocumented in this encounter Care Teams Data Acquisition Technician Relationship Specialty Start Date End Date Abdoulaye Gonzalez PCP - General 12/22/15 04/05/18 documented as of this encounter
--- OUTSIDE RECORDS SUMMARY | 2024-04-14 20:39 | XMS_ITS | Encounter Summary ---
Author Organization [facility] Address [address] [place] [address] Care Team Providers Care Final Installer Inspector Name Role Phone MgAbdoulaye gusman Primary Care Provider [phone] Encounter Details Date Type Department Care Team (Late st Contact Info) Description 06/17/2017 Phlebotomy Only [facility] - [address] [address] Head Athletic Trainer, Outpatient Urinary frequency; Encounter for supervision of other normal in third trimester Social History Tobacco Use Types Packs/Day Years [...] Procedure Name Priority Date/Time Associated Diagnosis Comments URINE CULTURE IF POSITIVE Routine 06/17/2017 9:47 EST Urinary frequency Encounter for supervision of other normal in third trimester documented in this encounter Results * URINE CULTURE IF UA POSITIVE - NON POCT URINALYSIS ONLY (06/17/2017 9:47 EST) Culture if Indicated Culture not indicated by urinalysis results. 06/17/2017 11:05 EST [facility] Urine specimen (specimen) TOPOGRAPHY UNKNOWN / Unknown 06/17/2017 9:47 EST 06/17/2017 10:46 EST Cecelia Reece METAL CHECKER [facility] MICROBIOLOGY - NERMT ORDERABLES [facility] [address] [place] [address] documented in this encounter Visit Diagnoses Diagnosis Urinary frequency Encounter for supervision of other normal in third trimester documented in this encounter Care Teams Final Installer Inspector Relationship Specialty Start Date End Date Abdoulaye Gonzalez PCP - General 12/22/15 04/05/18 documented as of this encounter
--- OUTSIDE RECORDS SUMMARY | 2024-04-14 20:39 | XMS_ITS | Encounter Summary ---
Author Organization [facility] Address [address] [place] [address] Care Team Providers Care Bone Cooking Operator Name Role Phone Abdoulaye Gonzalez Primary Care Provider [phone] Reason for Visit * Reason Onset Date Comments Headache 07/02/2017 Encounter Details Date Type Department Care Team (Late st Contact Info) Description 07/02/2017 Telephone [facility] OBGYN Services - [address] [phone] Cecelia Reece NP [facility] [address] [facility], [address] [place] [address] Headache Social History Tobacco Use Types Packs/Day [...] No 06/23/2017 documented as of this encounter Ordered Prescriptions Prescription Sig Dispensed Refills Start Date End Da te prochlorperazine (COMPAZINE) 5 mg tablet Take 1 Tab by mouth every 4 hours. For headache 20 Tab 07/02/2017 07/13/2017 documented in this encounter Miscellaneous Notes * Telephone Encounter - Cecelia Reece CNM - 07/02/2017 1709 EST Has had a SANTIAGO all day - seen in office this AM - BP was normal. Took 1000mg of tylenol 'I can't feel like this tomorrow - I am going to my parent's house for Thanksgiving' Offered compazine for SANTIAGO - states would have to pay out of pocket - how much does it cost? E-Rx to [facility] Compazine 5 mg #20 documented in this encounter Plan of Treatment [...] on filedocumented in this encounter Care Teams Bone Cooking Operator Relationship Specialty Start Date End Date Abdoulaye Gonzalez PCP - General 12/22/15 04/05/18 documented as of this encounter
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
--- OUTSIDE RECORDS SUMMARY | 2024-04-14 20:39 | XMS_ITS | Encounter Summary ---
Author Organization [facility] Address [address] [place] [address] Care Team Providers Care Garment Inspector Name Role Phone MgAbdoulaye gusman Primary Care Provider [phone] Reason for Visit * Reason Comments Routine Visit * Follow Up (48 Hrs (Urgent)) - Specialty Report Received Specialty Diagnoses / Procedures Referred By Contact Referred To Contact Obstetrics & Gynecology Diagnoses Supervision of high risk in third trimester Kidney stone Earl Guadarrama NP [address] [address] [place] [address] [place] [id number] Referral ID Status Reason Start Date Expiration Date Visits Requested Visits Authorized [id number] Specialty Report Received Specialty Services Required 7 1 1 Encounter Details Date Type Department Care Team (Late st Contact Info) Description 06/23/2017 15:30 EST Routine [facility] - [address] [id number] Cecelia Reece NP [address] [address] [place]: 32w2d Discharge Disposition: Auto Discharge Social History Tobacco [...] Sign Reading Time Taken Comments Blood Pressure 122/60 06/23/2017 1536 EST Pulse - - Temperature - - Respiratory Rate - - Oxygen Saturation - - Inhaled Oxygen Concentration - - Weight 98.8 kg (217 lb 12.8 oz) 06/23/2017 1536 EST Height - - Body Mass Index 37.39 06/21/2017 1113 EST documented in this encounter [...] as of this encounter Discharge Diagnoses Diagnosis O09.93 Supervision of high risk , unspecified, third trimester-O09.93[ICD-10-CM] O26.833 related renal disease, third trimester-O26.833[ICD-10-CM] N20.0 Calculus of kidney-N20.0[ICD-10-CM] documented in this encounter Discharge Disposition Disposition Code Departure Means Destination Auto Discharge documented in this encounter Progress Notes * Cecelia Reece CNM - 06/23/2017 1530 EST .S: Gladys Lopez is here today for a visit at 32w2d. Seen in ER on 11 for R flank pain - dx with kidney stone. Sent home with #10 dilaudid - has 2 left Very distraught - in position on table, Pain is '7 out of 10'. Trying to keep hydrated. Describes self as very constipated Has had it with Denies bleeding, loss of fluid or painful contractions. + FM. O: Vitals: BP: 122/60 Weight : 98.8 kg (217 lb 12.8 oz) Movement: Present A: 27 y.o. at 32w2d IUP O pos BMI = 35 Hx preE in previous R kidney stone P: Discussed with Dr. Flor - would like to send her to L&D for NST, then to [place] [address] for pain control, sleep, hydration, laxative Reassure - can do something for pain, sleep, and constipation Have informed Christy Guardado about her arrival on L&D - will refer to MDs for admit Follow up in 1 wks documented in [...] risk in third trimester- Primary Unspecified high-risk with nephrolithiasis in third trimester documented in this encounter Care Teams Garment Inspector Relationship Specialty Start Date End Date MgAlverto gusmantin PCP - General 12/22/15 04/05/18 documented as of this encounter
--- OUTSIDE RECORDS SUMMARY | 2024-04-14 20:39 | XMS_ITS | Encounter Summary ---
Author Organization [facility] Address [address] [place] [address] Care Team Providers Care Color Worker Name Role Phone MgAbdoulaye gusman Primary Care Provider [phone] Encounter Details Date Type Department Care Team (Late st Contact Info) Description 05/12/2017 Phlebotomy Only [facility] - [facility] [address] [place] [address] Shoe Stitcher Odd, Outpatient Encounter for related examination in second trimester (Primary Dx) Social History Tobacco Use [...] Blood Pressure 118/78(2017 16:01 EDT) No Rina Agotso MD Weight Loss General Yes Rina Agosto MD Note: Goal = 145lbs documented as of this encounter Procedures Procedure Name Priority Date/Time Associated Diagnosis Comments GLUCOSE-1HR GESTATIONAL SCREEN Routine 05/12/2017 12:25 EDT Encounter for related examination in second trimester COMPLETE BLOOD COUNT Routine 05/12/2017 12:25 EDT Encounter for related examination in second trimester documented in this encounter Results * (ABNORMAL) HEMAGRAM (05/12/2017 12:25 EDT) WBC 11.19 4.0 - 12.4 K/cmm 05/12/2017 14:56 [facility] RBC 3.86 3.86 - 5.04 M/cmm 05/12/2017 14:56 [facility] Hemoglobin 10.6(L) 11.6 - 15.2 gm/dl 05/12/2017 14:56 [facility] HCT 31.8(L) 34.9 - 44.4 % 05/12/2017 14:56 [facility] MCV 82 81 - 98 fl 05/12/2017 14:56 [facility] MCH 27.5 26.7 - 33.3 pg 05/12/2017 14:56 [facility] MCHC 33.3 32.1 - 35.9 gm/dl 05/12/2017 14:56 [facility] RDW-CV 14.2 <14.7 % 05/12/2017 14:56 [facility] RDW-SD 41.8 <50.4 fl 05/12/2017 14:56 EDT [facility] PLT 230 141 - 377 K/cmm 05/12/2017 14:56 EDT [facility] MPV 10.9 9.5 - 12.7 fl 05/12/2017 14:56 EDT [facility] Blood specimen (specimen) BLOOD SPECIMEN / Unknown 05/12/2017 12:25 EDT 05/12/2017 14:18 EDT Earl Guadarrama [facility] HEMATOLOGY & PF4 ORDERABLES Performing Organization Address [facility] Co de Phone Number [facility] [address] [place] [address] * GLUCOSE-1HR GESTATIONAL SCREEN (05/12/2017 12:25 EDT) Glucose Dose 50 g 05/12/2017 11:37 EDT [facility] Glucose-1hr Gest Scn 108 50 - 134 mg/dl 05/12/2017 15:15 EDT [facility] Comment: A one hour glucose greater than or equal to 135 mg/dl should be further evaluated with a formal three hour glucose tolerance test. Blood specimen (specimen) BLOOD SPECIMEN / Unknown 05/12/2017 12:25 EDT 05/12/2017 14:18 EDT Earl YANG PACKAGES & DNA PROBE ORDERABLES Performing Organization Address [facility] Co de Phone Number [facility] [address] [place] [address] documented in this encounter Visit Diagnoses Diagnosis Encounter for related examination in second trimester- Primary documented in this encounter Care Teams Color Worker Relationship Specialty Start Date End Date Abdoulaye Gonzalez PCP - General 12/22/15 04/05/18 documented as of this encounter
--- OUTSIDE RECORDS SUMMARY | 2024-04-14 20:39 | XMS_ITS | Encounter Summary ---
Author Organization [facility] Address [address] [place] [address] Care Team Providers Care Decorative Greens Cutter Name Role Phone Abdoulaye Gonzalez Primary Care Provider [phone] Reason for Visit * Reason Comments Social Work Encounter Details Date Type Department Care Team (Late st Contact Info) Description 06/18/2017 Community Health Team [facility] - [facility] [address] [place] [address] Lacie Cooper Social History Tobacco Use Types [...] encounter Progress Notes * Lacie Cooper - 06/18/2017 1154 EST SW left a voice mail with the goal of assessing progress in getting assistance with insurance through [employer], as well as [employer]. documented in this encounter Plan of Treatment [...] on filedocumented in this encounter Care Teams Decorative Greens Cutter Relationship Specialty Start Date End Date Abdoulaye Gonzalez PCP - General 12/22/15 04/05/18 documented as of this encounter
--- OUTSIDE RECORDS SUMMARY | 2024-04-14 20:39 | XMS_ITS | Encounter Summary ---
Author Organization [facility] Address [address] [place] [address] Care Team Providers Care Wheel Lacer And Truer Name Role Phone Abdoulaye Gonzalez Primary Care Provider [phone] Encounter Details Date Type Department Care Team (Late st Contact Info) Description 05/20/2017 Orders Only [facility] - [facility] [place] [address] [place], [place] [id number] Latisha Draper RN Need for influenza vaccination (Primary Dx) Social History Tobacco Use [...] this encounter Visit Diagnoses Diagnosis Need for influenza vaccination- Primary Need for prophylactic vaccination and inoculation against influenza documented in this encounter Orders Immunization/Injection Count Last Ordered Date First Ordered Date INFLUENZA VACCINE QUAD PRESE RVATIVE FREE 0.5 ML IM 1 06/04/2017 documented in this encounter Care Teams Wheel Lacer And Truer Relationship Specialty Start Date End Date Abdoulaye Gonzalez PCP - General 12/22/15 04/05/18 documented as of this encounter
--- OUTSIDE RECORDS SUMMARY | 2024-04-14 20:39 | XMS_ITS | Encounter Summary ---
Author Organization [facility] Address [address] [place] [address] Care Team Providers Care Accounting Representative Name Role Phone Abdoulaye Gonzalez Primary Care Provider [phone] Encounter Details Date Type Department Care Team (Late st Contact Info) Description 07/16/2017 Results Only Imaging [facility] OBGYN Services - [address] [address] Earl Guadarrama, DITCH WORKER [facility] [address] [facility], [address] 4 [place] [phone] Social History Tobacco Use Types Packs/Day Years [...] Procedure Name Priority Date/Time Associated Diagnosis Comments HALFWAY FOLLOW-UP 07/16/2017 11:50 EST documented in this encounter Results * HALFWAY FOLLOW-UP (07/16/2017 11:50 EST) Anatomical Region Laterality Modality Other 07/16/2017 11:5 0 EST 07/16/2017 12:03 EST Narrative 07/16/2017 12:03 EST Indication Size/dates mismatch. History ======= General History Height 163 cm [...] ======= LMP on: ?11/09/2016 GA by LMP ??35 w + 4 d AMA by LMP : ? 08/16/2017 Ultrasound examination on: 07/16/2017 GA by U/S based upon: ??AC, BPD, Femur, HC GA by U/S ??35 w + 3 d AMA by U/S: ?08/17/2017 Method of dating: ??Restore dating from previous exam Previous dating: ?? Dating performed on 12/27/2016 Based on the LMP Assigned GA of previous dating 35 w + 4 d Agreed AMA of previous datin08/16/2017 Assigned: ??Dating performed on 12/27/2016, based on the LMP Assigned GA ?35 w + 4 d Assigned AMA: ??08/16/2017 General Evaluation Cardiac activity: Present. FHR 137 bpm. movements: visualized. Presentation: cephalic. Placenta: posterior. Amniotic fluid: Amount of AF: normal. MVP 6.7 cm. LEOPOLDO 13.8 cm. Q1 6.7 cm, Q2 0.0 cm, Q3 3.1 cm, Q4 4.1 cm. Anatomy Cranium: ?? normal Lateral ventricles: ?normal Midline falx: ??normal Cranium: ?? normal shape and size 4-chamber view: ?normal Stomach: ?? normal Kidneys: ?? normal Bladder: ?? normal Wants to know gender: ??yes Biometry Biometry BPD ?87.3 mm 46% 35w 2d Hadlock OFD ?111.8 mm ?83% 37w 6d Yariel HC 316.2 mm ?34% 34w 4d [place] AC 332.5 mm ?92% 37w 1d Hadlock Femur ??68.8 mm 67% 35w 0d Yariel Humerus ?60.3 mm 53% 35w 0d Yariel EFW ?2,904 g 69% Cole Calculated by: Hadlock ([id number]) EFW (lb) ?? 6 lb EFW (oz) ?? 6 oz Cephalic index 0.78 ?20% Nicolaides HC / AC ?0.95 FL / BPD ?? 0.79 FL / AC ?0.21 MVP ?6.7 cm LEOPOLDO ?13.8 cm FHR ?137 bpm Head / Face / Neck Independent Agent Music Education 4.6 mm Method ======== Transabdominal ultrasound examination, Voluson E10. View: Sufficient. Impression [id number] Follow-up obstetrical ultrasound This is a milan gestation. biometry is consistent with prior dating. Except where noted above, the anatomy was not reviewed in detail as this is a follow-up study and the anatomy was previously assessed. Normal fluid and movement are noted. Follow-up Follow-up as clinically indicated. DATE OF SERVICE: 07/16/2017 Procedure Note Mary Palomares MD - 07/16/2017 Indication Size/dates mismatch. History ======= General History Height 163 cm [...] ======= LMP on: 11/09/2016 GA by LMP 35 w + 4 d AMA by LMP : 08/16/2017 Ultrasound examination on: 07/16/2017 GA by U/S based upon: AC, BPD, Femur, HC GA by U/S 35 w + 3 d AMA by U/S: 08/17/2017 Method of dating: Restore dating from previous exam Previous dating: Dating performed on 12/27/2016 Based on the LMP Assigned GA of previous dating 35 w + 4 d Agreed AMA of previous datin08/16/2017 Assigned: Dating performed on 12/27/2016, based on the LMP Assigned GA 35 w + 4 d Assigned AMA: 08/16/2017 General Evaluation Cardiac activity: Present. FHR 137 bpm. movements: visualized. Presentation: cephalic. Placenta: posterior. Amniotic fluid: Amount of AF: normal. MVP 6.7 cm. LEOPOLDO 13.8 cm. Q1 6.7 cm, Q2 0.0 cm, Q3 3.1 cm, Q4 4.1 cm. Anatomy Cranium: normal Lateral ventricles: normal Midline falx: normal Cranium: normal shape and size 4-chamber view: normal Stomach: normal Kidneys: normal Bladder: normal Wants to know gender: yes Biometry Biometry BPD 87.3 mm 46% 35w 2d Hadlock OFD 111.8 mm 83% 37w 6d Yariel HC 316.2 mm 34% 34w 4d [place] AC 332.5 mm 92% 37w 1d Hadlock Femur 68.8 mm 67% 35w 0d Yariel Humerus 60.3 mm 53% 35w 0d Yariel EFW 2,904 g 69% Cole Calculated by: Hadlock ([id number]) EFW (lb) 6 lb EFW (oz) 6 oz Cephalic index 0.78 20% Nicolaides HC / AC 0.95 FL / BPD 0.79 FL / AC 0.21 MVP 6.7 cm LEOPOLDO 13.8 cm FHR 137 bpm Head / Face / Neck Independent Agent Music Education 4.6 mm Method ======== Transabdominal ultrasound examination, Voluson E10. View: Sufficient. Impression [id number] Follow-up obstetrical ultrasound This is a milan gestation. biometry is consistent with prior dating. Except where noted above, the anatomy was not reviewed in detail as this is a follow-up study and the anatomy was previously assessed. Normal fluid and movement are noted. Follow-up Follow-up as clinically indicated. DATE OF SERVICE: 07/16/2017 Earl Guadarrama NP, CNM [facility] [place] documented in this encounter Visit Diagnoses Not on filedocumented in this encounter Care Teams Accounting Representative Relationship Specialty Start Date End Date MgAlverto gusmantin PCP - General 12/22/15 04/05/18 documented as of this encounter
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
--- OUTSIDE RECORDS SUMMARY | 2024-04-14 20:40 | XMS_ITS | Encounter Summary ---
Author Organization [facility] Address [address] [place] [address] Care Team Providers Care Automotive Tire Worker Name Role Phone Abdoulaye Gonzalez Primary Care Provider Reason for Visit * Reason Onset Date Comments Results 03/06/2017 Back Pain 03/06/2017 Encounter Details Date Type Department Care Team (Late st Contact Info) Description 03/06/2017 Telephone [facility] OBGYN Services - [facility] [address] [place] [address] Emilie Barker, STACEY Results; Back Pain Social History Tobacco Use Types Packs/Day [...] No 07/09/2016 documented as of this encounter Miscellaneous Notes * Telephone Encounter - Emilie Barker RN - 03/06/2017 0233 EDT Received call from Gladys who is wanting to know the results of her urine labs that were done recently. Advised of normal results. Patient states that she continues to have flank pain. Mainly on left side. Feels very similar to the early stages of a kidney stone. No blood in urine. Had massage yesterday,which didn't help. Wearing a back support for 3-5 hours daily without relief. Rates pain as 6/10, which she states she is still able to function. Denies fever. States that she is hydrating well. Rescheduled SONIA to be seen sooner. Now scheduled for 03/20/17 @ 9 AM, which was the first available with any provider. Advised pt that there is not much more we can do at this time. Aware to call jennifer k with worsening pain, hematuria or fever. Aware she can take Tylenol prn. No further questions or concerns at this time. documented in this encounter [...] on filedocumented in this encounter Care Teams Automotive Tire Worker Relationship Specialty Start Date End Date Abdoulaye Gonzalez PCP - General 12/22/15 04/05/18 documented as of this encounter
--- OUTSIDE RECORDS SUMMARY | 2024-04-14 20:40 | XMS_ITS | Encounter Summary ---
Author Organization [facility] Address [address] [place] [address] Care Team Providers Care Sanding Machine Operator Name Role Phone Abdoulaye Gonzalez Primary Care Provider [phone] Encounter Details Date Type Department Care Team (Late st Contact Info) Description 02/05/2017 8:38 EDT - 02/05/2017 8:39 EDT Hospital Encounter [address] [address] Mary Palomares MD [address] [facility] [address] [place] [phone] Discharge Disposition: Home or Self Care Social [...] No 07/09/2016 documented as of this encounter Discharge Diagnoses Diagnosis Z36 Encounter for screening of mother-Z36[ICD-10-CM] documented in this encounter Medications at Time of Discharge Medication Sig Dispensed Refills Start Date End Date acetaminophen (TYLENOL) 325 mg tablet Take 325 mg by mouth every 6 hours. Reported on 12/20/2016 02/22/2017 albuterol 90 mcg/actuation inhaler Inhale 1 Puff as directed every 4 hours as needed for Wheezing. 1 Inhaler 2 11/04/2016 09/10/2017 ALBUTEROL INHL Inhale as directed as needed. Reported on 12/20/2016 02/27/2017 azithromycin (ZITHROMAX) 250 mg tablet Take 2 tablets (500 mg) on Day 1, followed by 1 tablet (250 mg) once daily on Days 2 through 5. 6 Tab 02/04/2017 02/14/2017 clindamycin (CLINDAGEL) 1 % gel Apply 1 application topically to affected area 2 times daily. Apply to skin twice daily. 30 g 5 09/30/2016 02/22/2017 guaiFENesin (ROBITUSSIN) 100 mg/5 mL liquid Take 200 mg by mouth every 4 hours. 02/27/2017 PNV NO.95/FERROUS FUM/FOLIC AC ( MULTIVITAMINS ORAL) Take by mouth. Reported on 12/20/2016 02/27/2017 sumatriptan (IMITREX) 50 mg tablet Take 1 Tab by mouth once as needed for up to 1 dose for Migraine. May repeat 1 in two hours if needed do not exceed more than 5 per month 9 Tab 11 03/19/2016 09/10/2017 documented as of this encounter Discharge Disposition Disposition Code Departure Means Destination Home or Self Care documented in this encounter Plan of Treatment [...] on filedocumented in this encounter Care Teams Sanding Machine Operator Relationship Specialty Start Date End Date Abdoulaye Gonzalez PCP - General 12/22/15 04/05/18 documented as of this encounter
--- OUTSIDE RECORDS SUMMARY | 2024-04-14 20:40 | XMS_ITS | Encounter Summary ---
Author Organization [facility] Address [address] [place] [address] Care Team Providers Care Diploma Pharmacy Technician Name Role Phone Abdoulaye Gonzalez Primary Care Provider [phone] Encounter Details Date Type Department Care Team (Late st Contact Info) Description 04/22/2017 Results Only Imaging [facility] OBGYN Services - [address] [phone] Jenniffer Fuentes MD [address] [facility], [address] [place] [address] Social History Tobacco Use Types Packs/Day Years [...] Procedure Name Priority Date/Time Associated Diagnosis Comments SNF FOLLOW-UP 04/22/2017 15:39 EDT documented in this encounter Results * SNF FOLLOW-UP (04/22/2017 15:39 EDT) Anatomical Region Laterality Modality Other 04/22/2017 15:3 9 EDT 04/22/2017 15:50 EDT Narrative 04/22/2017 15:50 EDT Indication Poorly seen anatomy (cardiac outflow tracts). History ======= General History Height 163 cm Height (ft) ?5 ft Height (in) ?4 in Previous Outcomes ?2 Para ?? 1 [place] children born (T) ?1 [place] children born (P) ?0 Abortions (A) ??0 [place] living children (L) ??1 Number of fetuses: 1. Dating ======= LMP on: ?11/09/2016 GA by LMP ??23 w + 3 d AMA by LMP : ? 08/16/2017 Assigned: ??Dating performed on 12/27/2016 Based on the LMP Assigned GA ?23 w + 3 d Assigned AMA: ??08/16/2017 General Evaluation Cardiac activity: Present. FHR 156 bpm. movements: visualized. Presentation: cephalic. Placenta: posterior. Amniotic fluid: Amount of AF: normal. Anatomy Cranium: ?? normal Lateral ventricles: ?normal Midline falx: ??normal Cranium: ?? normal shape and size 4-chamber view: ?normal Stomach: ?? normal Kidneys: ?? normal Bladder: ?? normal Gender: ?male Wants to know gender: ??yes Method ======== Transabdominal ultrasound examination, Voluson E10. View: Limited by maternal habitus. Impression [id number] Follow-up obstetrical ultrasound This is a milan gestation. This study was performed to better visualize the cardiac outflow tracts. Both the RVOT and LVOT appear normal. Except where noted above, the anatomy was not reviewed in detail as this is a follow-up study and the anatomy was previously assessed. Normal fluid and movement are noted. Follow-up Follow-up as clinically indicated. Comment ========= A follow-up ultrasound for growth is scheduled in 2 weeks. DATE OF SERVICE: 04/22/2017 Procedure Note Renetta Flor MD - 04/22/2017 Indication Poorly seen anatomy (cardiac outflow tracts). History ======= General History Height 163 cm Height (ft) 5 ft Height (in) 4 in Previous Outcomes 2 Para 1 [place] children born (T) 1 [place] children born (P) 0 Abortions (A) 0 [place] living children (L) 1 Number of fetuses: 1. Dating ======= LMP on: 11/09/2016 GA by LMP 23 w + 3 d AMA by LMP : 08/16/2017 Assigned: Dating performed on 12/27/2016 Based on the LMP Assigned GA 23 w + 3 d Assigned AMA: 08/16/2017 General Evaluation Cardiac activity: Present. FHR 156 bpm. movements: visualized. Presentation: cephalic. Placenta: posterior. Amniotic fluid: Amount of AF: normal. Anatomy Cranium: normal Lateral ventricles: normal Midline falx: normal Cranium: normal shape and size 4-chamber view: normal Stomach: normal Kidneys: normal Bladder: normal Gender: male Wants to know gender: yes Method ======== Transabdominal ultrasound examination, Voluson E10. View: Limited by maternal habitus. Impression [id number] Follow-up obstetrical ultrasound This is a milan gestation. This study was performed to better visualize the cardiac outflow tracts. Both the RVOT and LVOT appear normal. Except where noted above, the anatomy was not reviewed in detail as this is a follow-up study and the anatomy was previously assessed. Normal fluid and movement are noted. Follow-up Follow-up as clinically indicated. Comment ========= A follow-up ultrasound for growth is scheduled in 2 weeks. DATE OF SERVICE: 04/22/2017 Jenniffer Fuentes MD [facility] [place] S documented in this encounter Visit Diagnoses Not on filedocumented in this encounter Care Teams Diploma Pharmacy Technician Relationship Specialty Start Date End Date Abdoulaye Gonzalez PCP - General 12/22/15 04/05/18 documented as of this encounter
--- OUTSIDE RECORDS SUMMARY | 2024-04-14 20:40 | XMS_ITS | Encounter Summary ---
Author Organization Health system Address [address] [place] [address] Care Team Providers Care Dry Roaster Name Role Phone Abdoulaye Gonzalez Primary Care Provider Reason for Visit * Reason Onset Date Comments Cough 02/14/2017 and fever Encounter Details Date Type Department Care Team (Late st Contact Info) Description 02/14/2017 Telephone [facility] - [place] [address] [place], [place] [phone] Marian Michael MD [address] [place] [phone] Cough (and fever) Social History Tobacco Use Types Packs/Day Years [...] No 07/09/2016 documented as of this encounter Ordered Prescriptions Prescription Sig Dispensed Refills Start Date End Da te azithromycin (ZITHROMAX) 250 mg tablet Take 2 tablets (500 mg) on Day 1, followed by 1 tablet (250 mg) once daily on Days 2 through 5. 6 Tab 02/14/2017 02/22/2017 documented in this encounter Miscellaneous Notes * Telephone Encounter - Marian Michael MD - 02/14/2017 6905 EDT Patient calling because she is having cough with fever to 101. Is . She had a zpak for similar symptoms and it improved. Now she is feeling worse again. Coughing to the point of vomiting thisAM (has gag reflex). Not SOB. Using inhaler Plan: Will repeat Z-mitch. Call if not improved documented in this encounter Plan of Treatment [...] Discontinue Reason Start Date End Da te azithromycin (ZITHROMAX) 250 mg tablet Take 2 tablets (500 mg) on Day 1, followed by 1 tablet (250 mg) once daily on Days 2 through 5. Reorder 02/04/2017 02/14/2017 documented as of this encounter Care Teams Dry Roaster Relationship Specialty Start Date End Date Abdoulaye Gonzalez PCP - General 12/22/15 04/05/18 documented as of this encounter
--- OUTSIDE RECORDS SUMMARY | 2024-04-14 20:40 | XMS_ITS | Encounter Summary ---
Author Organization [facility] Address [address] [place] [address] Care Team Providers Care High School Coach Name Role Phone Abdoulaye Gonzalez Primary Care Provider [phone] Encounter Details Date Type Department Care Team (Late st Contact Info) Description 04/21/2017 Orders Only [facility] OBGYN Services - Main [place] [address], [place] [id number] Latisha Draper RN Need for Tdap vaccination (Primary Dx); Encounter for related examination in second trimester Social History Tobacco Use Types Packs/Day [...] of this encounter Results * (ABNORMAL) HEMAGRAM (05/12/2017 12:25 EDT) WBC 11.19 4.0 - 12.4 K/cmm 05/12/2017 14:56 [facility] RBC 3.86 3.86 - 5.04 M/cmm 05/12/2017 14:56 [facility] Hemoglobin 10.6(L) 11.6 - 15.2 gm/dl 05/12/2017 14:56 [facility] HCT 31.8(L) 34.9 - 44.4 % 05/12/2017 14:56 [facility] MCV 82 81 - 98 fl 05/12/2017 14:56 [facility] MCH 27.5 26.7 - 33.3 pg 05/12/2017 14:56 [facility] MCHC 33.3 32.1 - 35.9 gm/dl 05/12/2017 14:56 [facility] RDW-CV 14.2 <14.7 % 05/12/2017 14:56 [facility] RDW-SD 41.8 <50.4 fl 05/12/2017 14:56 [facility] PLT 230 141 - 377 K/cmm 05/12/2017 14:56 [facility] MPV 10.9 9.5 - 12.7 fl 05/12/2017 14:56 [facility] Blood specimen (specimen) BLOOD SPECIMEN / Unknown 05/12/2017 12:25 EDT 05/12/2017 14:18 EDT Earl YANG HEMATOLOGY & PF4 ORDERABLES Performing Organization Address [facility] Co de Phone Number [facility] [address] [place] [address] * GLUCOSE-1HR GESTATIONAL SCREEN (05/12/2017 12:25 EDT) Glucose Dose 50 g 05/12/2017 11:37 EDT [facility] Glucose-1hr Gest Scn 108 50 - 134 mg/dl 05/12/2017 15:15 EDT [facility] Comment: A one hour glucose greater than or equal to 135 mg/dl should be further evaluated with a formal three hour glucose tolerance test. Blood specimen (specimen) BLOOD SPECIMEN / Unknown 05/12/2017 12:25 EDT 05/12/2017 14:18 EDT Earl Guadarrama NP, CNM PACKAGES & DNA PROBE ORDERABLES Performing Organization Address [facility] Co de Phone Number [facility] [address] [place] [address] documented in this encounter Visit Diagnoses Diagnosis Need for Tdap vaccination- Primary Need for prophylactic vaccination with combined aqastnokwn-rpnsmco-mwairhngj (DTP) vaccine Encounter for related examination in second trimester documented in this encounter Orders Immunization/Injection Count Last Ordered Date First Ordered Date TDAP VACCINE =>7YO IM 1 06/04/2017 documented in this encounter Care Teams High School Coach Relationship Specialty Start Date End Date Abdoulaye Gonzalez PCP - General 12/22/15 04/05/18 documented as of this encounter
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
--- OUTSIDE RECORDS SUMMARY | 2024-04-14 20:40 | XMS_ITS | Encounter Summary ---
Author Organization [facility] Address [address] [place] [address] Care Team Providers Care Commissioning Engineer Name Role Phone Abdoulaye Gonzalez Primary Care Provider [phone] Reason for Visit * Reason Onset Date Comments Epistaxis 04/10/2017 Encounter Details Date Type Department Care Team (Late st Contact Info) Description 04/10/2017 Telephone [facility] Adult Primary Care - [address] [address] Romina Hutton MD [address] [place] [phone] Epistaxis Social History Tobacco Use Types Packs/Day Years [...] encounter Miscellaneous Notes * Telephone Encounter - Romina Hutton MD - 04/10/2017 2117 EDT orthopedically impaired teacher message 918 pm - from pt, who is 21 weeks + 5 d . Currently a normal . Being monitored because of hx of pre-eclampsia, but this so far is fine. Blew nose and left nostril started bleeding, held pressure x 5 minutes, but restarted bending over. Has been going on X 14-15 minutes. Holding pressure is okay. 5 minutes at a time. But then restarts. No hx bleeding disorder. Is on baby asa 81. Doesn't typically get nosebleeds. Feels okay otherwise. Plan: hold pressure for 20 minutes without letting it go. If still bleeding would advise ER eval. documented in this encounter Plan of Treatment [...] on filedocumented in this encounter Care Teams Commissioning Engineer Relationship Specialty Start Date End Date Abdoulaye Gonzalez PCP - General 12/22/15 04/05/18 documented as of this encounter
--- OUTSIDE RECORDS SUMMARY | 2024-04-14 20:40 | XMS_ITS | Encounter Summary ---
Author Organization [facility] Address [address] [place] [address] Care Team Providers Care Sweatband Separator Name Role Phone Abdoulaye Gonzalez Primary Care Provider [phone] Reason for Visit * Reason Comments Pharyngitis Pt with pharyngitis x days. Saw pcp on Friday ans was started on pcn for strep. Sts no swab obtained at pcp due to inability of pt to tolerate procedure. A&O. Respirations unlabored. Skin warm & dry. NAD. Encounter Details Date Type Department Care Team (Late st Contact Info) Description 12/22/2016 22:50 EDT - 12/22/2016 23:40 EDT Emergency [facility] Emergency Department - Main [place] [address] [place] [address] Ilan Lemus MD Emergency, MD Jay Pharyngitis, unspecified etiology (Primary Dx) Discharge Disposition: Home or Self [...] Sign Reading Time Taken Comments Blood Pressure 115/69 12/22/2016 2334 EDT Pulse - - Temperature 37.5 ??C (99.5 ??F) 12/22/2016 2254 EDT Respiratory Rate 18 12/22/2016 2334 EDT Oxygen Saturation 100% 12/22/2016 2334 EDT Inhaled Oxygen Concentration - - Weight 90.7 kg (200 lb) 12/22/2016 2254 EDT Height - - Body Mass Index 34.33 12/17/2016 1401 EDT documented in this encounter Functional Status [...] Discharge Diagnoses Diagnosis J02.9 Acute pharyngitis, unspecified-J02.9[ICD-10-CM] Z33.1 state, incidental-Z33.1[ICD-10-CM] Z3A.01 Less than 8 weeks gestation of -Z3A.01[ICD-10-CM] J45.909 Unspecified asthma, uncomplicated-J45.909[ICD-10-CM] Z88.5 Allergy status to narcotic agent status-Z88.5[ICD-10-CM] Z91.040 Latex allergy status-Z91.040[ICD-10-CM] Z87.891 Personal history of nicotine dependence-Z87.891[ICD-10-CM] documented in this encounter Discharge Instructions * Discharge Instructions* Ilan Lemus MD - 12/22/2016 23:31 EDT Stop the penicillin and use the clindamycin instead You have more symptoms on the right and may be developing an abscess on that side I do not feel it has significant pus at this time, but may need drainage if symptoms worsen and youshould return here Use tylenol for pain documented in this encounter Medications at Time [...] on Days 2 through 5. 6 Tab 11/04/2016 02/04/2017 clindamycin (CLEOCIN) 300 mg capsule Take 1 Cap by mouth every 6 hours for 9 days. 36 Cap 12/22/2016 12/31/2016 clindamycin (CLINDAGEL) 1 % gel Apply 1 application topically to affected area 2 times daily. Apply to skin twice daily. 30 g 5 09/30/2016 02/22/2017 guaiFENesin (ROBITUSSIN) 100 mg/5 mL liquid Take 200 mg by mouth every 4 hours. 02/27/2017 ibuprofen (MOTRIN) 200 mg tablet Take 200 mg by mouth every 6 hours. Reported on 12/20/2016 02/01/2017 PNV NO.95/FERROUS FUM/FOLIC AC ( MULTIVITAMINS ORAL) Take by mouth. Reported on 12/20/2016 02/27/2017 sumatriptan (IMITREX) 50 mg tablet Take 1 Tab by mouth once as needed for up to 1 dose for Migraine. May repeat 1 in two hours if needed do not exceed more than 5 per month 9 Tab 11 03/19/2016 09/10/2017 tretinoin (RETIN-A) 0.025 % cream Apply topically to face at night. Apply sparingly. Do not apply immediately after washing, may sting. 20 g 5 11/19/2016 02/01/2017 triamcinolone (KENALOG) 0.1 % cream Apply to skin on fingers twice a day. 15 g 3 06/17/2016 02/01/2017 documented as of this encounter Ordered Prescriptions Prescription Sig Dispensed Refills Start Date End Da te clindamycin (CLEOCIN) 300 mg capsule Take 1 Cap by mouth every 6 hours for 9 days. 36 Cap 12/22/2016 12/31/2016 documented in this encounter Discharge Disposition Disposition Code Departure Means Destination Home or Self Care documented in this encounter ED Notes * Amanda Galloway RN - 12/22/2016 4859 EDT D/c paperwork reviewed and copy provided. Left the ED ambulatory with family in no acute distress. * Ilan Lemus MD - 12/22/2016 9670 EDT DOS: 12/22/2016 Chief Complaint Patient presents with ??? Pharyngitis Pt with pharyngitis x days. Saw pcp on Friday ans was started on pcn for strep. Sts no swab obtained at pcp due to inability of pt to tolerate procedure. A&O. Respirations unlabored. Skin warm & dry. NAD. HPI The patient is a 26 y.o. female who presents today with Pharyngitis (Pt with pharyngitis x days. Saw pcp on Friday ans was started on pcn for strep. Sts no swab obtained at pcp due to inability of ptto tolerate procedure. A&O. Respirations unlabored. Skin warm & dry. NAD.) HPI Comments: I, Emani Gonzalez, am scribing for Ilan Lemus MD while he/she is personally performing the service. Emani Gonzalez 12/22/2016 23:25 Gladys Lopez is a 26 y.o. female with a history of 6 weeks and 2 days gestation, mild asthma, depression, seen by PCP 2 days ago with a sore throat and started on penicillin, no testing done, who presents with 5 days of sore throat. 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 Notes fevers prior to the antibiotics, currently resolved. She endorses nausea and diarrhea since starting the antibiotics and right ear pain. Notes history of tonsillar abscess with para-tonsillar drainage. Denies rhinorrhea, cough, fever, chills, vomiting or other acute symptoms. Feels pain is worse on the right. Able to eat and drink. Pharyngitis Associated symptoms: ear pain (right) Associated symptoms: no chills, no cough, no fever, no rhinorrhea and no voice change The history is provided by the patient and medical records. Review of Systems Review of Systems Constitutional: Negative for chills and fever. HENT: Positive for ear pain (right) and sore throat. Negative for congestion, rhinorrhea and voice change. Respiratory: Negative for cough and wheezing. Gastrointestinal: Positive for diarrhea and nausea. Negative for vomiting. Skin: Negative for wound. Psychiatric/Behavioral: Negative for confusion. All other systems reviewed and are negative. The patient's past medical, family and social history was reviewed and updated as needed. Allergies Allergen Reactions ??? Adhesive Rash ??? Latex, Natural Rubber Rash ??? Morphine Nausea And Vomiting Morphine caused patient to feel very aggressive ??? Tramadol Nausea Only Dizziness Vital Signs Temp: 37.5 ??C (99.5 ??F) Temp src: Oral Heart Rate: 98 BPM Resp: 16 SpO2: 99 % BP: 135/81 BP Device: BP Machine Patient Position: Sitting BP Cuff Location: Left arm O2 Device: None (Room air) Physical Exam Constitutional: She is oriented to person, place, and time. She appears well- developed and well-nourished. No distress. HENT: Head: Normocephalic and atraumatic. Right Ear: Tympanic membrane and external ear normal. Left Ear: Tympanic membrane and external ear normal. Mouth/Throat: Oropharyngeal exudate and posterior oropharyngeal erythema (with some exudate, slightly more on the right side. Pain is on the right.) present. Uvula midline. No voice change. Eyes: Conjunctivae are normal. Pupils are equal, round, and reactive to light. Right eye exhibits no discharge. Left eye exhibits no discharge. Neck: Normal range of motion. No tracheal deviation present. Tender lymphadenopathy along the right cervical chain. Cardiovascular: Normal rate. Pulmonary/Chest: Effort normal. No respiratory distress. Abdominal: She exhibits no distension. Musculoskeletal: Normal range of motion. Lymphadenopathy: She has cervical adenopathy. Neurological: She is alert and oriented to person, place, and time. She exhibits normal muscle tone. Skin: Skin is warm and dry. Psychiatric: She has a normal mood and affect. Nursing note and vitals reviewed. RESULTS EKG orders: None Radiology orders: None ED Lab Results Labs Reviewed - No data to display Relevant Data Procedures ED COURSE A medical screening exam was performed. I do not feel that patient has current indication for para-tonsillar drainage, but suspect that she could develop need for this in the near future. Will stop penicillin, use clindamycin instead, and have her return if worsening. ASSESSMENT AND PLAN Final diagnoses: Pharyngitis, unspecified etiology ED Current Prescriptions Medication Dispense Auth. Provider clindamycin (CLEOCIN) 300 mg capsule 36 Cap Ilan Lemus MD DISPOSITION: Discharged The patient's pain was managed to an adequate level weighing risk vs. benefit of further medications. Upon departure from the Emergency Department, the patient's pain was 4 on a zero to ten scale. Condition at departure from the Emergency Department: Good PCP: Abdoulaye Gonzalez MDM Number of Diagnoses or Management Options Pharyngitis, unspecified etiology: Diagnosis management comments: 3 This documentation is recorded by Emani Gonzalez acting as Scribe under the direction and presence ofIlan Lemus MD. Ilan Lemus MD: I personally performed the services recorded by the scribe in my presence. I confirm the scribe's documentation has been reviewed by me to accurately and completely record my work, treatment, procedures, and medical decision making. 12/22/2016 23:32 No flowsheet data found. * Edouard Rae RN - 12/22/2016 3824 EDT Chief Complaint Patient presents with ??? Pharyngitis Pt with pharyngitis x days. Saw pcp on Friday ans was started on pcn for strep. Sts no swab obtained at pcp due to inability of pt to tolerate procedure. A&O. Respirations unlabored. Skin warm & dry. NAD. documented in this encounter Plan of Treatment Not on file documented as of this encounter Goals Goal Patient Goal Type Associated Problems Recent Progress Patient-Stated? Author Blood Pressure < 130/80 Blood Pressure 118/78(2017 16:01 EDT) No Rina Agosto MD Weight Loss General Yes Rina Agosto MD Note: Goal = 145lbs documented as of this encounter Visit Diagnoses Diagnosis Pharyngitis, unspecified etiology- Primary documented in this encounter Administered Medications Inactive Administered Medications - up to 3 most recent administrations Medication Order MAR Action Action Date Dose Rate Site clindamycin (CLEOCIN) 150 mg cap STARTER PACK 1 Package, oral, NOW X1, 1 dose, On 12/22/16 at 2345, STAT Given 12/22/2016 23:37 EDT 1 Package documented in this encounter Discontinued Medications Medication Sig Discontinue Reason Start Date End Da te penicillin v potassium (VEETID) 250 mg/5 mL suspension Take 10 mL by mouth 3 times daily. 12/20/2016 12/22/2016 documented as of this encounter Active and Recently Administered Medications Times are shown in EDT. Scheduled Medication Order 12/20/2016 12/21/2016 12/22/2016 clindamycin (CLEOCIN) 150 mg cap STARTER PACK (COMPLETED) 1 Package, oral, NOW X1, 1 dose, On 12/22/16 at 2345, STAT 2337 (Given - Provid er: Amanda Galloway RN) documented in this encounter Orders Medications Ordered That Jean ht Not Have Been Administered Count Last Ordered Date First Ordered Date clindamycin (CLEOCIN) 150 mg cap STARTER PACK 1 12/22/2016 documented in this encounter Care Teams Sweatband Separator Relationship Specialty Start Date End Date Abdoulaye Gonzalez PCP - General 12/22/15 04/05/18 documented as of this encounter
--- OUTSIDE RECORDS SUMMARY | 2024-04-14 20:40 | XMS_ITS | Encounter Summary ---
Author Organization [facility] Address [address] [place] [address] Care Team Providers Care Ore Dressing Engineer Name Role Phone Abdoulaye Gonzalez Primary Care Provider [phone] Reason for Visit * Reason Onset Date Comments Back Pain 03/03/2017 Hip Pain 03/03/2017 Encounter Details Date Type Department Care Team (Late st Contact Info) Description 03/03/2017 Telephone [facility] OBGYN Services - [facility] [address] [place] [address] Latisha Draper RN Back Pain; Hip Pain Social History Tobacco Use Types Packs/Day [...] Telephone Encounter - Latisha Draper RN - 03/03/2017 0167 EDT TC from Gladys at 16+2 weeks with massive lower back and hip pain last couple of days. Today her tailbone also started hurting and she noticed a bruise there but doesn't remember injuring it. Gladys does have history of kidney stones. Describes her back/hip pain as left flank area. On furtherdiscussion she says her urine has been cloudy for the past few days and has increased frequency. Advised UA & culture, order placed in computer; push fluids, Tylenol 1000 mgs every 8 hrs as needed (Gladys states she's already doing this for migraine). She plans on going to the lab in the morning. Will call back after 24 hours for results or worsening pain and/or hematuria. documented in this encounter Plan of Treatment Not on file documented as of this encounter Goals Goal Patient Goal Type Associated Problems Recent Progress Patient-Stated? Author Blood Pressure < 130/80 Blood Pressure 118/78(2017 16:01 EDT) No Rina Agosto MD Weight Loss General Yes Rina Agosto MD Note: Goal = 145lbs documented as of this encounter Results * BACTERIAL CULTURE, URINE (03/05/2017 11:19 EDT) Result 10,000 to 100,000 CFU/ml Usual urogenital cristine. 03/06/2017 7:51 EDT [facility] Urine specimen (specimen) URINE / Unknown 03/05/2017 11:19 EDT 03/05/2017 11:47 EDT Genia Peters NP [facility] MICROBIOLOGY - GENERAL ORDERABLES [facility] [address] [place] [address] * URINALYSIS WITH MICROSCOPIC IF POSITIVE (03/05/2017 11:16 EDT) Color, UA Yellow 03/05/2017 12:02 EDT [facility] Clarity, UA Clear 03/05/2017 12:02 EDT [facility] Glucose, UA Neg Neg 03/05/2017 12:02 EDT [facility] Bilirubin, UA Neg Neg 03/05/2017 12:02 EDT [facility] Ketones, UA Neg Neg 03/05/2017 12:02 T [facility] Specific [place], Urine 1.025 1.001 - 1.035 03/05/2017 12:02 EDT [facility] Blood, UA Neg Neg 03/05/2017 12:02 EDT [facility] pH, UA 6.0 4.6 - 8.0 03/05/2017 12:02 EDT [facility] Protein, UA Neg Neg 03/05/2017 12:02 T [facility] Urobilinogen, UA 0.2 0.2 - 1.0 E.U./dl 03/05/2017 12:02 T [facility] Nitrite, UA Neg Neg 03/05/2017 12:02 T [facility] Leuk Esterase Neg Neg 03/05/2017 12:02 [facility] Urine specimen (specimen) URINE / Unknown 03/05/2017 11:16 EDT 03/05/2017 11:47 EDT Genia Peters HOT KNIFE FOXING CUTTER CNM URINALYSIS ORD ERABLES [facility] [address] [place] [address] documented in this encounter Visit Diagnoses Diagnosis Back pain affecting , antepartum- Primary documented in this encounter Care Teams Ore Dressing Engineer Relationship Specialty Start Date End Date Abdoulaye Gonzalez PCP - General 12/22/15 04/05/18 documented as of this encounter
--- OUTSIDE RECORDS SUMMARY | 2024-04-14 20:40 | XMS_ITS | Encounter Summary ---
Author Organization [facility] Address [address] [place] [address] Care Team Providers Care Director Index Name Role Phone MgAbdoulaye gusman Primary Care Provider [phone] Reason for Referral * PHARMACY OPERATIONS SPECIALIST (Routine) - Closed Specialty Diagnoses / Procedures Referred By Gregory velez Referred To Contact Diagnoses Supervision of high-risk , third trimester Procedures PRISON FOLLOW-UP Earl Guadarrama NP CNM [address] [address] Referral ID Status Reason Start Date Expiration Date Visits Re quested Visits Authorized [id number] Closed 04/22/2017 1 1 Reason for Visit * Reason Comments Routine Visit -LOF, -VB, -CTX, +FM Encounter Details Date Type Department Care Team (Late st Contact Info) Description 04/22/2017 14:15 EDT Routine [facility] OBGYN Services - [address] [phone] Earl Guadarrama NP CN [address] [address] GA: 23w3d Social History Tobacco Use Types Packs/Day Years [...] Sign Reading Time Taken Comments Blood Pressure 120/80 04/22/2017 1433 EDT Pulse - - Temperature - - Respiratory Rate - - Oxygen Saturation - - Inhaled Oxygen Concentration - - Weight 95.8 kg (211 lb 3.2 oz) 04/22/2017 1433 E DT Height 162.6 cm (5' 4.02) 04/22/2017 1433 EDT Body Mass Index 36.23 04/22/2017 1433 EDT documented in this encounter Functional Status [...] Progress Notes * Earl Guadarrama CNM - 04/22/2017 1415 EDT Late entry S: Gladys Lopez is here today for a visit with partner and son. Was seen two nightsago on labor and delivery for intense lower abdominal pain that felt like contractions, as leakage of fluid. Was found to have intact membranes and long, closed cervix. Since then continues to have intermittent lower abdominal and lower back pain but no pattern to it and feels achy, but not like contractions. Plans to do 24 hour urine protein this week. Has ultrasound after our visit to look at the heart (couldn't see it clearly on 20w scan). O: Vitals: BP: 120/80 Height: 162.6 cm (64.02) Weight : 95.8 kg (211 lb 3.2 oz) BMI: 36.31 Fundal Height (cm): 26 cm Heart Rate: u/s Movement: Present A: 27 y.o. at 23w3d IUP S=D U/S today with normal cardiac outflow tracts BMI 36 History of preeclampsia P: Ordered monthly u/s in 3rd trimester for growth GTT info given Follow up in 4 wks documented in this encounter Plan of [...] Procedure Name Priority Date/Time Associated Diagnosis Comments PRISON FOLLOW-UP Routine 05/21/2017 10:23 EDT Supervision of high-risk , third trimester documented in this encounter Results * PRISON FOLLOW-UP (05/21/2017 10:23 EDT) Anatomical Region Laterality Modality Other 05/21/2017 10:2 3 EDT 05/21/2017 10:35 EDT Narrative 05/21/2017 10:35 EDT Indication Size/dates mismatch BMI 35.7. History ======= [...] ======= LMP on: ?11/09/2016 GA by LMP ??27 w + 4 d AMA by LMP : ? 08/16/2017 Ultrasound examination on: 05/21/2017 GA by U/S based upon: ??AC, BPD, Femur, HC GA by U/S ??28 w + 1 d AMA by U/S: ?08/12/2017 Method of dating: ??Restore dating from previous exam Previous dating: ?? Dating performed on 12/27/2016 Based on the LMP Assigned GA of previous dating 27 w + 4 d Agreed AMA of previous datin08/16/2017 Assigned: ??Dating performed on 12/27/2016, based on the LMP Assigned GA ?27 w + 4 d Assigned AMA: ??08/16/2017 General Evaluation Cardiac activity: Present. FHR 161 bpm. movements: visualized. Presentation: breech. Placenta: posterior. Umbilical cord: 3 vessel cord. Amniotic fluid: Amount of AF: normal. MVP 6.2 cm. LEOPOLDO 16.8 cm. Q1 5.6 cm, Q2 6.2 cm, Q3 0.0 cm, Q4 5.1 cm. Anatomy Cranium: ?? normal Lateral ventricles: ?normal Midline falx: ??normal Cranium: ?? normal shape and size 4-chamber view: ?normal Stomach: ?? normal Kidneys: ?? normal Bladder: ?? normal Gender: ?male Wants to know gender: ??yes Biometry Biometry BPD ?70.5 mm 64% 28w 2d Hadlock OFD ?91.6 mm 93% 29w 4d Yariel HC 259.4 mm ?55% 27w 5d [place] AC 242.4 mm ?71% 28w 4d Hadlock Femur ??52.3 mm 72% 28w 0d Yariel Humerus ?48.4 mm 70% 28w 3d Yariel EFW ?1,198 g 44% Cole Calculated by: Hadlock ([id number]) EFW (lb) ?? 2 lb EFW (oz) ?? 10 oz Cephalic index 0.77 ?30% Nicolaides HC / AC ?1.07 FL / BPD ?? 0.74 FL / AC ?0.22 MVP ?6.2 cm LEOPOLDO ?16.8 cm FHR ?161 bpm Head / Face / Neck Corduroy Cutter Operator 7.1 mm Method ======== Transabdominal ultrasound examination, Voluson E10. View: Good view. Impression [id number] Follow-up obstetrical ultrasound This is a milan gestation. biometry is consistent with prior dating. Except where noted above, the anatomy was not reviewed in detail as this is a follow-up study and the anatomy was previously assessed. Normal fluid and movement are noted. Follow-up Follow-up as clinically indicated. DATE OF SERVICE: 05/21/2017 Procedure Note Mary Palomares MD - 05/21/2017 Indication Size/dates mismatch BMI 35.7. History ======= [...] ======= LMP on: 11/09/2016 GA by LMP 27 w + 4 d AMA by LMP : 08/16/2017 Ultrasound examination on: 05/21/2017 GA by U/S based upon: AC, BPD, Femur, HC GA by U/S 28 w + 1 d AMA by U/S: 08/12/2017 Method of dating: Restore dating from previous exam Previous dating: Dating performed on 12/27/2016 Based on the LMP Assigned GA of previous dating 27 w + 4 d Agreed AMA of previous datin08/16/2017 Assigned: Dating performed on 12/27/2016, based on the LMP Assigned GA 27 w + 4 d Assigned AMA: 08/16/2017 General Evaluation Cardiac activity: Present. FHR 161 bpm. movements: visualized. Presentation: breech. Placenta: posterior. Umbilical cord: 3 vessel cord. Amniotic fluid: Amount of AF: normal. MVP 6.2 cm. LEOPOLDO 16.8 cm. Q1 5.6 cm, Q2 6.2 cm, Q3 0.0 cm, Q4 5.1 cm. Anatomy Cranium: normal Lateral ventricles: normal Midline falx: normal Cranium: normal shape and size 4-chamber view: normal Stomach: normal Kidneys: normal Bladder: normal Gender: male Wants to know gender: yes Biometry Biometry BPD 70.5 mm 64% 28w 2d Hadlock OFD 91.6 mm 93% 29w 4d Yariel HC 259.4 mm 55% 27w 5d [place] AC 242.4 mm 71% 28w 4d Hadlock Femur 52.3 mm 72% 28w 0d Yariel Humerus 48.4 mm 70% 28w 3d Yariel EFW 1,198 g 44% Cole Calculated by: Hadlock ([id number]) EFW (lb) 2 lb EFW (oz) 10 oz Cephalic index 0.77 30% Nicolaides HC / AC 1.07 FL / BPD 0.74 FL / AC 0.22 MVP 6.2 cm LEOPOLDO 16.8 cm FHR 161 bpm Head / Face / Neck Corduroy Cutter Operator 7.1 mm Method ======== Transabdominal ultrasound examination, Voluson E10. View: Good view. Impression [id number] Follow-up obstetrical ultrasound This is a milan gestation. biometry is consistent with prior dating. Except where noted above, the anatomy was not reviewed in detail as this is a follow-up study and the anatomy was previously assessed. Normal fluid and movement are noted. Follow-up Follow-up as clinically indicated. DATE OF SERVICE: 05/21/2017 Earl Guadarrama NP [facility] ORDERABLES documented in this encounter Visit Diagnoses Diagnosis Supervision of high-risk , third trimester- Primary documented in this encounter Care Teams Director Index Relationship Specialty Start Date End Date Abdoulaye Gonzalez PCP - General 12/22/15 04/05/18 documented as of this encounter
--- OUTSIDE RECORDS SUMMARY | 2024-04-14 20:40 | XMS_ITS | Encounter Summary ---
Author Organization [facility] Address [address] [place] [address] Care Team Providers Care Assistant Professor Of German Name Role Phone Abdoulaye Gonzalez Primary Care Provider [phone] Reason for Visit * Reason Onset Date Comments Follow-up 02/01/2017 cough, fever, so re throat, seen last Fri Encounter Details Date Type Department Care Team (Late st Contact Info) Description 02/01/2017 Telephone [facility] Adult Primary Care - [place] [address] [place] [address] Karrie Roman NP [address] [place] [address] Follow-up (cough, fever, sore throat, seen last Fri) Social History Tobacco Use Types Packs/Day Years [...] encounter Miscellaneous Notes * Telephone Encounter - Jalyn Tyler - 02/06/2017 1210 EDT TC to pt to assess symptoms at this time. She states she is feeling much better. Cough is better, able to sleep, denies fever, chills,N/V. Encouraged her to call back with returning symptoms. She verbalized understanding with no barriers to learning * Telephone Encounter - Karrie Roman NP - 02/05/2017 2043 EDT Please call Gladys to see if abx is helping with cough, also if she is still having fevers. Luiserika * Telephone Encounter - Svetlana Mccollum RN - 02/04/2017 0818 EDT Pt given message as below, verbalizes understanding. * Telephone Encounter - Karrie Roman NP - 02/03/2017 1823 EDT Thank you for checking in, no change in plan: rest, fluids and the OTC medications she is using arethe best options given her . If symptoms worse (especially SOB or fever develops), she should call office or seek more emergent care. * Telephone Encounter - Svetlana Mccollum RN - 02/03/2017 1035 EDT No fever, but pt states she is coughing all the time now. She states she feels fine, except for the cough. States she started to have some cramps over the weekend so called her olericulture teacher who thinks she pulled a muscle from coughing so much. It is not a productive cough. She does wake up at night with it and states I pretty much cough all day. She does take tylenol, robitussin, and uses her inhaler at night but still wakes up with the cough. Her has the same thing, it hurts him to take a deep breath, but she does not have this. * Telephone Encounter - Karrie Roman NP - 02/03/2017 0811 EDT Sorry, she did not have a fever at the OV, but please do call and check in, thank you! * Telephone Encounter - Karrie Roman NP - 02/01/2017 1328 EDT Could you please call Gladys to see how she is feeling? I saw her on Friday for cough and sore throat, and she had a fever of 100.4 at the OV. She has hx of asthma. She is 12 weeks . Thanks! documented in this encounter Plan of Treatment [...] filedocumented in this encounter Care Teams Assistant Professor Of German Relationship Specialty Start Date End Date Abdoulaye Gonzalez PCP - General 12/22/15 04/05/18 documented as of this encounter
--- OUTSIDE RECORDS SUMMARY | 2024-04-14 20:40 | XMS_ITS | Encounter Summary ---
Author Organization [facility] Address [address] [place] [address] Care Team Providers Care Linen Checker Name Role Phone MgAbdoulaye gusman Primary Care Provider [phone] Reason for Visit * Reason Onset Date Comments Follow-up 12/18/2016 care/concern freddy l - ED f/u - 5.9.17 - abd pain/5 weeks Encounter Details Date Type Department Care Team (Late st Contact Info) Description 12/18/2016 Telephone [facility] Adult Primary Care - [address] [address] Hetal Edouard LPN Follow-up (care/concern call - ED f/u - 5.9.17 - abd pain/5 weeks ) Social History Tobacco Use Types Packs/Day Years [...] encounter Miscellaneous Notes * Telephone Encounter - Hetal Edouard LPN - 12/18/2016 1105 EDT Spoke with Gladys who said she have an ovarian cyst rupture, she's feeling better, does not feel she needs to come in for f/u. Told her to call office if sx don't continue to improve or worsen or she has questions/concerns. documented in this encounter Plan of Treatment [...] on filedocumented in this encounter Care Teams Linen Checker Relationship Specialty Start Date End Date Abdoulaye Gonzalez PCP - General 12/22/15 04/05/18 documented as of this encounter
--- OUTSIDE RECORDS SUMMARY | 2024-04-14 20:40 | XMS_ITS | Encounter Summary ---
Author Organization [facility] Address [address] [place] [address] Care Team Providers Care Resident Caregiver Name Role Phone MgAbdoulaye gusman Primary Care Provider [phone] Encounter Details Date Type Department Care Team (Late st Contact Info) Description 02/26/2017 Orders Only Non [facility] Ancillary Services Norma Samuels CNM [address] [phone] Supervision of normal intrauterine in multigravida in first trimester (Primary Dx) Social History Tobacco Use [...] No 07/09/2016 documented as of this encounter Plan of Treatment Not on file documented as of this encounter Goals Goal Patient Goal Type Associated Problems Recent Progress Patient-Stated? Author Blood Pressure < 130/80 Blood Pressure 118/78(2017 16:01 EDT) No Rina Agosto MD Weight Loss General Yes Rina Agosto MD Note: Goal = 145lbs documented as of this encounter Results * 2ND INTEGRATED SCREEN (03/05/2017 11:16 EDT) Result-Integrated Screen See Pathology Scanned Report in [facility]. 03/19/2017 9:09 EDT [facility] Interpretation See Pathology Scanned Report in [facility]. 03/19/2017 9:09 EDT [facility] Reference Lab Assayed at [facility] [place] [place] 03/19/2017 9:09 EDT [facility] Blood specimen (specimen) BLOOD SPECIMEN / Unknown 03/05/2017 11:16 EDT 03/05/2017 11:47 EDT Norma YANG CHEMISTRY & BLOOD GA S ORDERABLES [facility] [address] [place] [address] documented in this encounter Visit Diagnoses Diagnosis Supervision of normal intrauterine in multigravida in first trimester- Primary documented in this encounter Care Teams Resident Caregiver Relationship Specialty Start Date End Date Abdoulaye Gonzalez PCP - General 12/22/15 04/05/18 documented as of this encounter
--- OUTSIDE RECORDS SUMMARY | 2024-04-14 20:40 | XMS_ITS | Encounter Summary ---
Author Organization [facility] Address [address] [place] [address] Care Team Providers Care Lay Health Advocate Name Role Phone Abdoulaye Gonzalez Primary Care Provider [phone] Encounter Details Date Type Department Care Team (Late st Contact Info) Description 12/27/2016 Results Only Imaging [facility] [phone] Luiz Mauro MD [address] [facility] [address] [place] [id number] Social History Tobacco Use Types Packs/Day Years [...] 130/80 Blood Pressure 118/78(2017 16:01 EDT) No Rnia Agosto MD Weight Loss General Yes Rina Agosto MD Note: Goal = 145lbs documented as of this encounter Procedures Procedure Name Priority Date/Time Associated Diagnosis Comments STITCH WHEELER US OB FIRST TRIMESTER TRANSVAGINAL 12/27/2016 14:55 EDT documented in this encounter Results * STITCH WHEELER US OB FIRST TRIMESTER TRANSVAGINAL (12/27/2016 14:55 EDT) Anatomical Region Laterality Modality Other 12/27/2016 14:5 5 EDT 12/27/2016 17:08 EDT Narrative 12/27/2016 17:08 EDT Indication Viability. Ovarian cysts. Conceived on letrozol. History ======= General History Height 163 cm Height (ft) ?5 ft Height (in) ?4 in Previous Outcomes ?2 Para ?? 1 Lundy children born (T) ?1 Lundy children born (P) ?0 Abortions (A) ??0 Lundy living children (L) ??1 Maternal Assessment Height 163 cm Height (ft) ?5 ft Height (in) ?4 in Number of gestational sacs: 1. Dating ======= Method of dating: ??based on the LMP LMP on: ?11/09/2016 GA by LMP ??6 w + 6 d AMA by LMP : ? 08/16/2017 Ultrasound examination on: 12/27/2016 GA by U/S based upon: ??CRL GA by U/S ??6 w + 6 d AMA by U/S: ?08/16/2017 Assigned: ??Dating performed on 12/27/2016 Based on the LMP Assigned GA ?6 w + 6 d Assigned AMA: ??08/16/2017 Assessment Gestational sac: ?? Visualized Location: ??Intrauterine Yolk sac: ??Visualized Amniotic sac: ??Visualized Embryo: ?Visualized CRL ?8.9 mm ??90% 6w 6d Hadlock Cardiac activity: ??Present FHR ?150 bpm Maternal Structures Uterus / Cervix Uterus: ?Anteverted Uterus details: ?No abnormalities detected. Appears normal Cervix: ?Appears normal Ovaries / Tubes / Adnexa Rt ovary: ??Normal with Corpus luteum Rt ovary D1 ?4.1 cm Rt ovary D2 ?2.2 cm Rt ovary D3 ?2.8 cm Rt ovary mean ??3.0 cm Rt ovary vol ?? 13.0 cm cubed Rt ovary other findings: ?? Two corpus luteal cysts seen, no abnormalities. Lt ovary: ??Normal with Corpus luteal cyst Lt ovary D1 ?3.4 cm Lt ovary D2 ?2.2 cm Lt ovary D3 ?1.4 cm Lt ovary mean ??2.3 cm Lt ovary vol ?? 5.2 cm cubed Pouch of Reece / Other Structures Cul de Sac: ?Appears normal Free fluid: ?No free fluid visualized Method ======== Transvaginal ultrasound examination. View: Sufficient. Impression 1st Trimester OB scan ,transvaginal +[id number] 1. Single viable intrauterine (IUP) , size equals menstrual dates. 2. Bilateral corpus luteum cysts. Right ovary has two and left ovary has one corpus luteum. No abnormalities noted. Follow-up Dr. Mauro. Comment ========= Results discussed w/patient. Procedure Note Veda Nina MD - 12/27/2016 Indication Viability. Ovarian cysts. Conceived on letrozol. History ======= General History Height 163 cm Height (ft) 5 ft Height (in) 4 in Previous Outcomes 2 Para 1 Lundy children born (T) 1 Lundy children born (P) 0 Abortions (A) 0 Lundy living children (L) 1 Maternal Assessment Height 163 cm Height (ft) 5 ft Height (in) 4 in Number of gestational sacs: 1. Dating ======= Method of dating: based on the LMP LMP on: 11/09/2016 GA by LMP 6 w + 6 d AMA by LMP : 08/16/2017 Ultrasound examination on: 12/27/2016 GA by U/S based upon: CRL GA by U/S 6 w + 6 d AMA by U/S: 08/16/2017 Assigned: Dating performed on 12/27/2016 Based on the LMP Assigned GA 6 w + 6 d Assigned AMA: 08/16/2017 Assessment Gestational sac: Visualized Location: Intrauterine Yolk sac: Visualized Amniotic sac: Visualized Embryo: Visualized CRL 8.9 mm 90% 6w 6d Hadlock Cardiac activity: Present FHR 150 bpm Maternal Structures Uterus / Cervix Uterus: Anteverted Uterus details: No abnormalities detected. Appears normal Cervix: Appears normal Ovaries / Tubes / Adnexa Rt ovary: Normal with Corpus luteum Rt ovary D1 4.1 cm Rt ovary D2 2.2 cm Rt ovary D3 2.8 cm Rt ovary mean 3.0 cm Rt ovary vol 13.0 cm cubed Rt ovary other findings: Two corpus luteal cysts seen, no abnormalities. Lt ovary: Normal with Corpus luteal cyst Lt ovary D1 3.4 cm Lt ovary D2 2.2 cm Lt ovary D3 1.4 cm Lt ovary mean 2.3 cm Lt ovary vol 5.2 cm cubed Pouch of Reece / Other Structures Cul de Sac: Appears normal Free fluid: No free fluid visualized Method ======== Transvaginal ultrasound examination. View: Sufficient. Impression 1st Trimester OB scan ,transvaginal +[id number] 1. Single viable intrauterine (IUP) , size equals menstrual dates. 2. Bilateral corpus luteum cysts. Right ovary has two and left ovary has one corpus luteum. No abnormalities noted. Follow-up Dr. Mauro. Comment ========= Results discussed w/patient. Luiz Mauro MD IMG US STITCH WHEELER ORDERABLE S documented in this encounter Visit Diagnoses Not on filedocumented in this encounter Care Teams Lay Health Advocate Relationship Specialty Start Date End Date Mguzma Abdoulaye PCP - General 12/22/15 04/05/18 documented as of this encounter
--- OUTSIDE RECORDS SUMMARY | 2024-04-14 20:40 | XMS_ITS | Encounter Summary ---
Author Organization [facility] Address [address] [place] [address] Care Team Providers Care Skidder Runner Name Role Phone Abdoulaye Gonzalez Primary Care Provider [phone] Reason for Visit * Reason Comments Abdominal Pain Patient states,I jiang ve a cyst on left ovary which is being followed as she is 5 weeks Sent in as she is having increased pain No bleeding or cramps. Nausea but no vomiting Encounter Details Date Type Department Care Team (Late st Contact Info) Description 12/17/2016 13:42 EDT - 12/17/2016 16:56 EDT Emergency [facility] Emergency Department - Main [address] [id number] Wesley Evans, PA-C [address] [facility], [address] [place] [id number] Mario Severino PA-C [address] [place] [address] Emergency, MD Jay Hemorrhagic ovarian cyst (Primary Dx) Discharge Disposition: Home or Self [...] Sign Reading Time Taken Comments Blood Pressure 118/61 12/17/2016 1629 EDT Pulse 78 12/17/2016 1629 EDT Temperature 36.4 ??C (97.6 ??F) 12/17/2016 1629 EDT Respiratory Rate 16 12/17/2016 1629 EDT Oxygen Saturation 100% 12/17/2016 1629 EDT Inhaled Oxygen Concentration - - Weight 90.7 kg (200 lb) 12/17/2016 1401 EDT Height 162.6 cm (5' 4) 12/17/2016 1401 EDT Body Mass Index 34.33 12/17/2016 1401 EDT [...] as of this encounter Discharge Diagnoses Diagnosis O34.81 Maternal care for other abnormalities of pelvic organs, first trimester-O34.81[ICD-10-CM] N83.202 Unspecified ovarian cyst, left side-N83.202[ICD-10-CM] Z3A.01 Less than 8 weeks gestation of -Z3A.01[ICD-10-CM] J45.909 Unspecified asthma, uncomplicated-J45.909[ICD-10-CM] Z87.891 Personal history of nicotine dependence-Z87.891[ICD-10-CM] Z91.040 Latex allergy status-Z91.040[ICD-10-CM] Z88.5 Allergy status to narcotic agent status-Z88.5[ICD-10-CM] documented in this encounter Discharge Instructions * Discharge Instructions* Mario Severino PA - 12/17/2016 16:43 EDT History and exam are consistent with a ruptured small hemorrhagic left ovarian cyst, confirmed by ultrasound today. You have an intrauterine which appears to be normal on ultrasound, although it is too early to see a heartbeat. For your pain, use Tylenol. Return immediately for worsening or uncontrolled symptoms, otherwise followup with your PCP and area director documented in this encounter Medications at Time [...] 2 through 5. 6 Tab 11/04/2016 02/04/2017 cefUROXime (CEFTIN) 250 mg tablet Take 1 Tab by mouth 2 times daily. 20 Tab 11/04/2016 12/20/2016 clindamycin (CLINDAGEL) 1 % gel Apply 1 application topically to affected area 2 times daily. Apply to skin twice daily. 30 g 5 09/30/2016 02/22/2017 ibuprofen (MOTRIN) 200 mg tablet Take 200 [...] 06/17/2016 02/01/2017 documented as of this encounter Discharge Disposition Disposition Code Departure Means Destination Home or Self Care Car Home documented in this encounter ED Notes * Mario Severino PA - 12/17/2016 1646 EDT ER care assumed at 4 PM, awaiting ultrasound. Ultrasound shows a small hemorrhagic left ovarian cyst, which would explain this patient's pain. She will take Tylenol, use heating pad as needed. * Kim Mena RN - 12/17/2016 1628 EDT Pt returned from [facility] via stretcher, pt requesting a drink * Kim Mena RN - 12/17/2016 1527 EDT Pt transported to [facility] via stretcher * Wesley Evans PA - 12/17/2016 1450 EDT DOS: 12/17/2016 Chief Complaint Patient presents with ??? Abdominal Pain Patient states,I have a cyst on left ovary which is being followed as she is 5 weeks Sentin as she is having increased pain No bleeding or cramps. Nausea but no vomiting HPI The patient is a 26 y.o. female who presents today with Abdominal Pain (Patient states,I have a cyst on left ovary which is being followed as she is 5 weeks Sent in as she is having increased pain No bleeding or cramps. Nausea but no vomiting) HPI Comments: 26-year-old female returns to the emergency department complaining of left lower adnexal pain. Patient is a proximally 5 weeks , she had an ultrasound performed on 12/09/2016 which showed a left and right ovarian cyst. Patient states that her pain has been getting worse. She called her OB and was told to come to this ER. Last ultrasound did show a tiny IUP given dates there was too small to determine any activity or yolk sac The history is provided by the patient. Abdominal Pain Associated symptoms: nausea Associated symptoms: no chest pain, no constipation, no cough, no diarrhea, no fatigue, no fever, no shortness of breath and no vomiting Review of Systems Review of Systems Constitutional: Negative for fatigue and fever. Respiratory: Negative for cough and shortness of breath. Cardiovascular: Negative for chest pain, palpitations and leg swelling. Gastrointestinal: Positive for abdominal pain and nausea. Negative for abdominal distention, anal bleeding, blood in stool, constipation, diarrhea, rectal pain and vomiting. The patient's past medical, family and social history was reviewed and updated as needed. Allergies Allergen Reactions ??? Adhesive Rash ??? Latex, Natural Rubber Rash ??? Morphine Nausea And Vomiting Morphine caused patient to feel very aggressive ??? Tramadol Nausea Only Dizziness Vital Signs Vitals Reassessment?: Yes Temp: 36.4 ??C (97.6 ??F) Temp src: Oral Pulse: 78 Resp: 16 SpO2: 100 % BP: 118/61 BP Device: BP Machine Patient Position: Sitting BP Cuff Location: Right arm O2 Device: None (Room air) Physical Exam Constitutional: She appears well-developed and well-nourished. HENT: Head: Normocephalic and atraumatic. Right Ear: External ear normal. Left Ear: External ear normal. Nose: Nose normal. Mouth/Throat: Oropharynx is clear and moist. Eyes: Pupils are equal, round, and reactive to light. Right eye exhibits no discharge. Left eye exhibits no discharge. Neck: Normal range of motion. Neck supple. No tracheal deviation present. Cardiovascular: Normal rate, regular rhythm and normal heart sounds. Pulmonary/Chest: Breath sounds normal. No respiratory distress. She has no wheezes. She has no rales. Abdominal: Soft. She exhibits no mass. There is tenderness. There is no rebound and no guarding. Obese white female Musculoskeletal: Normal range of motion. She exhibits no edema. Neurological: She is alert. She has normal strength. No sensory deficit. Skin: No rash noted. Psychiatric: She has a normal mood and affect. Nursing note and vitals reviewed. RESULTS EKG orders: None Radiology orders: RAD US OB LESS THAN 14 WKS TRANSVAGINAL & LMT DOPPLER Imaging Reviewed. I have independently reviewed the images. Results are notable for iup Imaging Results RAD US OB LESS THAN 14 WKS TRANSVAGINAL & LMT DOPPLER (Final result) Result time: 12/17/16 16:45:25 Final result Narrative: RAD US OB LESS THAN 14 WKS TRANSVAGINAL 12/17/2016 4:24 PM Clinical History/Comments: Increased left lower quadrant pain and history of ovarian cyst 5 weeks Comparison: December 09, 2016 Technique: Grayscale, cinematic, and slightly color Doppler images of the pelvis were obtained using a transabdominal and transvaginal approach. MATERNAL STRUCTURES: Right ovary: The right ovary measures 3.8 x 2.7 x 2.7 cm in size and contains multiple anechoic follicles. A 2.6 x 2.4 x 2.2 cm corpus luteum is present. Arterial and venous Doppler waveforms and color flow is present in the right ovary. There are no right adnexal masses. Left ovary: The left ovary measures 3.4 x 2.0 x 2.8 cm in size and contains multiple anechoic follicles. A 2.0 x 1.2 cm cystic lesion is present within the left ovary which contains layering echogenic debris, likely reflecting a hemorrhagic cyst. Arterial and venous Doppler waveforms and color flow is present in the left ovary. There are no left adnexal masses. There is no free fluid in the pelvis. Uterus: The uterus measures 8.4 x 4.1 x 5.4 cm in size and is normal in echotexture. Gestational sac: The gestational sac is present in the normal position within the endometrial cavity. Yolk sac: A yolk sac is present, measuring 3 mm from the inner edge to an average. cardiac activity: cardiac activity is not present. BIOMETRY: LMP: November 09, 2016, compatible with 5 weeks and 3 days. Prior ultrasound dating: Ultrasound completed on December 09, 2016, which correlated with less than 5 weeks. [place]-rump length: No pole is identified. Mean sac diameter: Mean sac diameter measures 11 mm, corresponding to 5 weeks and 1 day. Amniotic fluid: Grossly normal. IMPRESSION: 1. There is an intrauterine gestational sac with a mean sac diameter of 11 mm, corresponding to 5 weeks and 1 day. A yolk sac is also noted. No pole or cardiac activity is identified on today's examination. Findings likely reflect early intrauterine , however, failure is not excluded. Recommend follow-up ultrasound and correlation with serial beta hCG levels. 2. Small left ovarian hemorrhagic cyst. 3. Right corpus luteum. Dr. Primitivo Glass discussed these findings with AZRA Jordan at 12/17/2016 4:30 PM. I have personally reviewed the images and the above interpretation and agree with the findings. Preliminary result Narrative: PRELIMINARY RESIDENT REPORT RAD US OB LESS THAN 14 WKS TRANSVAGINAL 12/17/2016 4:24 PM Clinical History/Comments: Increased left lower quadrant pain and history of ovarian cyst 5 weeks Comparison: December 09, 2016 Technique: Grayscale, cinematic, and slightly color Doppler images of the pelvis were obtained using a transabdominal and transvaginal approach. MATERNAL STRUCTURES: Right ovary: The right ovary measures 3.8 x 2.7 x 2.7 cm in size and contains multiple anechoic follicles. A 2.6 x 2.4 x 2.2 cm corpus luteum is present. Arterial and venous Doppler waveforms and color flow is present in the right ovary. There are no right adnexal masses. Left ovary: The left ovary measures 3.4 x 2.0 x 2.8 cm in size and contains multiple anechoic follicles. A 2.0 x 1.2 cm cystic lesion is present within the left ovary which contains layering echogenic debris, likely reflecting a hemorrhagic cyst. Arterial and venous Doppler waveforms and color flow is present in the left ovary. There are no left adnexal masses. There is no free fluid in the pelvis. Uterus: The uterus measures 8.4 x 4.1 x 5.4 cm in size and is normal in echotexture. Gestational sac: The gestational sac is present in the normal position within the endometrial cavity. Yolk sac: A yolk sac is present, measuring 3 mm from the inner edge to an average. cardiac activity: cardiac activity is not present. BIOMETRY: LMP: November 09, 2016, compatible with 5 weeks and 3 days. Prior ultrasound dating: Ultrasound completed on December 09, 2016, which correlated with less than 5 weeks. [place]-rump length: No pole is identified. Mean sac diameter: Mean sac diameter measures 11 mm, corresponding to 5 weeks and 1 day. Amniotic fluid: Grossly normal. IMPRESSION: 1. There is an intrauterine gestational sac with a mean sac diameter of 11 mm, corresponding to 5 weeks and 1 day. A yolk sac is also noted. No pole or cardiac activity is identified on today's examination. Findings likely reflect early intrauterine , however, failure is not excluded. Recommend follow-up ultrasound and correlation with serial beta hCG levels. 2. Small left ovarian hemorrhagic cyst. 3. Right corpus luteum. Dr. Primitivo Glass discussed these findings with AZRA Jordan at 12/17/2016 4:30 PM. I have personally reviewed the images and the above interpretation and agree with the findings. Preliminary result Narrative: PRELIMINARY RESIDENT REPORT RAD US OB LESS THAN 14 WKS TRANSVAGINAL 12/17/2016 4:24 PM Clinical History/Comments: Increased left lower quadrant pain and history of ovarian cyst 5 weeks Comparison: December 09, 2016 Technique: Grayscale, cinematic, and slightly color Doppler images of the pelvis were obtained using a transabdominal and transvaginal approach. MATERNAL STRUCTURES: Right ovary: The right ovary measures 3.8 x 2.7 x 2.7 cm in size and contains multiple anechoic follicles. A 2.6 x 2.4 x 2.2 cm corpus luteum is present. Arterial and venous Doppler waveforms and color flow is present in the right ovary. There are no right adnexal masses. Left ovary: The left ovary measures 3.4 x 2.0 x 2.8 cm in size and contains multiple anechoic follicles. A 2.0 x 1.2 cm cystic lesion is present within the left ovary which contains layering echogenic debris, likely reflecting a hemorrhagic cyst. Arterial and venous Doppler waveforms and color flow is present in the left ovary. There are no left adnexal masses. There is no free fluid in the pelvis. Uterus: The uterus measures 8.4 x 4.1 x 5.4 cm in size and is normal in echotexture. Gestational sac: The gestational sac is present in the normal position within the endometrial cavity. Yolk sac: A yolk sac is present, measuring 3 mm from the inner edge to an average. cardiac activity: cardiac activity is not present. BIOMETRY: LMP: November 09, 2016, compatible with 5 weeks and 3 days. Prior ultrasound dating: Ultrasound completed on December 09, 2016, which correlated with less than 5 weeks. [place]-rump length: No pole is identified. Mean sac diameter: Mean sac diameter measures 11 mm, corresponding to 5 weeks and 1 day. Amniotic fluid: Grossly normal. IMPRESSION: 1. There is an intrauterine gestational sac with a mean sac diameter of 11 mm, corresponding to 5 weeks and 1 day. A yolk sac is also noted. No pole or cardiac activity is identified on today's examination. Findings likely reflect early intrauterine , however, failure is not excluded. Recommend follow-up ultrasound and correlation with serial beta hCG levels. 2. Small left ovarian hemorrhagic cyst. 3. Right corpus luteum. Dr. Primitivo Glass discussed these findings with AZRA Jordan at 12/17/2016 4:30 PM. ED Lab Results Labs Reviewed - No data to display Relevant Data Procedures ED COURSE A medical screening exam was performed. Results were pending care was transferred to Mario Severino prior to results and final disposition ASSESSMENT AND PLAN Final diagnoses: Hemorrhagic ovarian cyst DISPOSITION: Discharged The patient's pain was managed to an adequate level weighing risk vs. benefit of further medications. Upon departure from the Emergency Department, the patient's pain was on a zero to ten scale. Condition at departure from the Emergency Department: PCP: Abdoulaye Street was available for supervision. 12/18/2016 10:15 No flowsheet data found. documented in this encounter Plan of Treatment Not on file documented as of this encounter Goals Goal Patient Goal Type Associated Problems Recent Progress Patient-Stated? Author Blood Pressure < 130/80 Blood Pressure 118/78(2017 16:01 EDT) No Rina Agosto MD Weight Loss General Yes Rina Agosto MD Note: Goal = 145lbs documented as of this encounter Procedures Procedure Name Priority Date/Time Associated Diagnosis Comments RAD US OB LESS THAN 14 WKS TRANSVAGINAL & LMT DOPPLER STAT 12/17/2016 16:24 EDT documented in this encounter Results * RAD US OB LESS THAN 14 WKS TRANSVAGINAL & LMT DOPPLER (12/17/2016 16:24 EDT) Anatomical Region Laterality Modality Other 12/17/2016 16:2 4 EDT 12/17/2016 16:45 EDT Narrative 12/17/2016 16:45 EDT RAD US OB LESS THAN 14 WKS TRANSVAGINAL ?? 12/17/2016 4:24 PM Clinical History/Comments: Increased left lower quadrant pain and history of ovarian cyst 5 weeks Comparison: December 09, 2016 Technique: Grayscale, cinematic, and slightly color Doppler images of the pelvis were obtained using a transabdominal and transvaginal approach. MATERNAL STRUCTURES: Right ovary: The right ovary measures 3.8 x 2.7 x 2.7 cm in size and contains multiple anechoic follicles. A 2.6 x 2.4 x 2.2 cm corpus luteum is present. Arterial and venous Doppler waveforms and color flow is present in the right ovary. There are no right adnexal masses. Left ovary: The left ovary measures 3.4 x 2.0 x 2.8 cm in size and contains multiple anechoic follicles. A 2.0 x 1.2 cm cystic lesion is present within the left ovary which contains layering echogenic debris, likely reflecting a hemorrhagic cyst. Arterial and venous Doppler waveforms and color flow is present in the left ovary. There are no left adnexal masses. There is no free fluid in the pelvis. Uterus: The uterus measures 8.4 x 4.1 x 5.4 cm in size and is normal in echotexture. Gestational sac: The gestational sac is present in the normal position within the endometrial cavity. Yolk sac: A yolk sac is present, measuring 3 mm from the inner edge to an average. cardiac activity: cardiac activity is not present. BIOMETRY: LMP: November 09, 2016, compatible with 5 weeks and 3 days. Prior ultrasound dating: Ultrasound completed on December 09, 2016, which correlated with less than 5 weeks. [place]-rump length: No pole is identified. Mean sac diameter: Mean sac diameter measures 11 mm, corresponding to 5 weeks and 1 day. Amniotic fluid: Grossly normal. IMPRESSION: 1. There is an intrauterine gestational sac with a mean sac diameter of 11 mm, corresponding to 5 weeks and 1 day. A yolk sac is also noted. No pole or cardiac activity is identified on today's examination. Findings likely reflect early intrauterine , however, failure is not excluded. Recommend follow-up ultrasound and correlation with serial beta hCG levels. 2. Small left ovarian hemorrhagic cyst. 3. Right corpus luteum. Dr. Primitivo Glass discussed these findings with AZRA Jordan at 12/17/2016 4:30 PM. I have personally reviewed the images and the above interpretation and agree with the findings. Procedure Note Gerson Dawson MD - 12/17/2016 RAD US OB LESS THAN 14 WKS TRANSVAGINAL 12/17/2016 4:24 PM Clinical History/Comments: Increased left lower quadrant pain and history of ovarian cyst 5 weeks Comparison: December 09, 2016 Technique: Grayscale, cinematic, and slightly color Doppler images of the pelvis were obtained using a transabdominal and transvaginal approach. MATERNAL STRUCTURES: Right ovary: The right ovary measures 3.8 x 2.7 x 2.7 cm in size and contains multiple anechoic follicles. A 2.6 x 2.4 x 2.2 cm corpus luteum is present. Arterial and venous Doppler waveforms and color flow is present in the right ovary. There are no right adnexal masses. Left ovary: The left ovary measures 3.4 x 2.0 x 2.8 cm in size and contains multiple anechoic follicles. A 2.0 x 1.2 cm cystic lesion is present within the left ovary which contains layering echogenic debris, likely reflecting a hemorrhagic cyst. Arterial and venous Doppler waveforms and color flow is present in the left ovary. There are no left adnexal masses. There is no free fluid in the pelvis. Uterus: The uterus measures 8.4 x 4.1 x 5.4 cm in size and is normal in echotexture. Gestational sac: The gestational sac is present in the normal position within the endometrial cavity. Yolk sac: A yolk sac is present, measuring 3 mm from the inner edge to an average. cardiac activity: cardiac activity is not present. BIOMETRY: LMP: November 09, 2016, compatible with 5 weeks and 3 days. Prior ultrasound dating: Ultrasound completed on December 09, 2016, which correlated with less than 5 weeks. [place]-rump length: No pole is identified. Mean sac diameter: Mean sac diameter measures 11 mm, corresponding to 5 weeks and 1 day. Amniotic fluid: Grossly normal. IMPRESSION: 1. There is an intrauterine gestational sac with a mean sac diameter of 11 mm, corresponding to 5 weeks and 1 day. A yolk sac is also noted. No pole or cardiac activity is identified on today's examination. Findings likely reflect early intrauterine , however, failure is not excluded. Recommend follow-up ultrasound and correlation with serial beta hCG levels. 2. Small left ovarian hemorrhagic cyst. 3. Right corpus luteum. Dr. Primitivo Glass discussed these findings with AZRA Jordan at 12/17/2016 4:30 PM. I have personally reviewed the images and the above interpretation and agree with the findings. Wesley Evans PA-C IMG US ORDERABLES documented in this encounter Visit Diagnoses Diagnosis Hemorrhagic ovarian cyst- Primary Other and unspecified ovarian cyst documented in this encounter Historical Medications * This list may reflect changes made after this encounter. Medication Sig Dispensed Refills Start Date End Date PNV NO.95/FERROUS FUM/FOLIC AC ( MULTIVITAMINS ORAL) Take by mouth. Reported on 12/20/2016 02/27/2017 added in this encounter Care Teams Skidder Runner Relationship Specialty Start Date End Date Abdoulaye Gonzalez PCP - General 12/22/15 04/05/18 documented as of this encounter
--- OUTSIDE RECORDS SUMMARY | 2024-04-14 20:40 | XMS_ITS | Encounter Summary ---
Author Organization [facility] Address [address] [place] [address] Care Team Providers Care Billing Representative Name Role Phone Abdoulaye Gonzalez Primary Care Provider [phone] Reason for Visit * Reason Comments Sore Throat x3 days - right tons il swollen - right ear painful Encounter Details Date Type Department Care Team (Late st Contact Info) Description 12/20/2016 10:45 EDT Office Visit [facility] Adult Primary Care - [address] [address] Abdoulaye Gonzalez [address] [place] [id number] Pharyngitis, unspecified etiology (Primary Dx) Social History Tobacco Use Types [...] Sign Reading Time Taken Comments Blood Pressure 120/78 12/20/2016 1045 EDT Pulse 108 12/20/2016 1045 EDT Temperature 37.2 ??C (99 ??F) 12/20/2016 1045 EDT Respiratory Rate 20 12/20/2016 1045 EDT Oxygen Saturation - - Inhaled Oxygen [...] Dispensed Refills Start Date End Da te penicillin v potassium (VEETID) 250 mg/5 mL suspension Take 10 mL by mouth 3 times daily. 200 mL 12/20/2016 12/22/2016 documented in this encounter Progress Notes * Abdoulaye Gonzalez - 12/20/2016 1045 EDT SUBJECTIVE: Chief Complaint Patient presents with ??? Sore Throat x3 days - right tonsil swollen - right ear painful HPI: Gladys has had a sore throat for 3 days, with mildly elevated temp, body aches. No fever, cough, sinus congestion. She has a history of recurrent strep pharyngitis. Son has been ill with ear pain for several weeks. Patient Active Problem List Diagnosis ??? Endometriosis ??? ACL injury tear ??? Acute meniscal tear of knee ??? Depression ??? Abnormal Pap smear of cervix ??? Supervision of normal first ??? BMI 32.0-32.9,adult ??? Kidney stone ??? Mild persistent asthma without complication Current Outpatient Prescriptions on File Prior to Visit Medication Sig Dispense Refill ??? acetaminophen (TYLENOL) 325 mg tablet Take 325 mg by mouth every 6 hours. Reported on 12/20/2016 ??? albuterol 90 mcg/actuation inhaler Inhale 1 Puff as directed every 4 hours as needed for Wheezing. (Patient not taking: Reported on 12/09/2016) 1 Inhaler 2 ??? ALBUTEROL INHL Inhale as directed as needed. Reported on 12/20/2016 ??? azithromycin (ZITHROMAX) 250 mg tablet Take 2 tablets (500 mg) on Day 1, followed by 1 tablet (250 mg) once daily on Days 2 through 5. (Patient not taking: Reported on 12/09/2016) 6 Tab 0 ??? clindamycin (CLINDAGEL) 1 % gel Apply 1 application topically to affected area 2 times daily. Apply to skin twice daily. (Patient not taking: Reported on 12/20/2016) 30 g 5 ??? ibuprofen (MOTRIN) 200 mg tablet Take 200 mg by mouth every 6 hours. Reported on 12/20/2016 ??? PNV NO.95/FERROUS FUM/FOLIC AC ( MULTIVITAMINS ORAL) Take by mouth. Reported on 12/20/2016 ??? tretinoin (RETIN-A) 0.025 % cream Apply topically to face at night. Apply sparingly. Do not apply immediately after washing, may sting. (Patient not taking: Reported on 12/09/2016) 20 g 5 ??? triamcinolone (KENALOG) 0.1 % cream Apply to skin on fingers twice a day. (Patient not taking: Reported on 12/09/2016) 15 g 3 No current facility-administered medications on file prior to visit. OBJECTIVE: BP 120/78 Pulse (!) 108 Temp 37.2 ??C (99 ??F) (Tympanic) Resp 20 LMP 10/12/2016 (Exact Date) General: Appears fatigued, but not toxic ENT: Difficult to visualize posterior pharynx. Unable to procure adequate throat culture. Neck: Moderately enlarged and tender anterior cervical lymph nodes ASSESSMENT and PLAN: Pharyngitis, likely strep: The Centor criteria. We'll treat with penicillin VK 3 times a day ??10 days. Encouraged to rest, gargle with salt water, call if no improvement in 2-3 days. Advised that failure to respond to penicillin indicates this may be viral. documented in this encounter Plan of Treatment [...] unspecified etiology- Primary documented in this encounter Discontinued Medications Medication Sig Discontinue Reason Start Date End Da te cefUROXime (CEFTIN) 250 mg tablet Take 1 Tab by mouth 2 times daily. Therapy completed 11/04/2016 12/20/2016 documented as of this encounter Historical Medications * This list may reflect changes made after this encounter. Medication Sig Dispensed Refills Start Date End Date guaiFENesin (ROBITUSSIN) 100 mg/5 mL liquid Take 200 mg by mouth every 4 hours. 02/27/2017 added in this encounter Care Teams Billing Representative Relationship Specialty Start Date End Date MguzmaAbdoulaye PCP - General 12/22/15 04/05/18 documented as of this encounter
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
--- OUTSIDE RECORDS SUMMARY | 2024-04-14 20:40 | XMS_ITS | Encounter Summary ---
Author Organization [facility] Address [address] [place] [address] Care Team Providers Care Color Grinder Name Role Phone Carlos Abdoulaye Primary Care Provider [phone] Reason for Visit * Reason Comments Acne ~ clindamyc in little improvement Encounter Details Date Type Department Care Team (Late st Contact Info) Description 04/29/2017 14:00 EDT Office Visit [facility] Dermatology 3rd Floor [facility] [address] [place] [address] Sujatha Craven MD PhD [address] [facility], [address] [place] [address] Acne vulgaris (Primary Dx) Social [...] No 03/25/2017 documented as of this encounter Patient Instructions * Patient Instructions* Fiordaliza Tompkins MD - 04/29/2017 14:00 EDT Panoxyl face wash 4% documented in this encounter Ordered Prescriptions Prescription Sig Dispensed Refills Start Date End Da te clindamycin (CLEOCIN T) 1 % lotion Apply topically twice a week. use thin film on affected area 60 mL 2 05/01/2017 07/13/2017 documented in this encounter Progress Notes * Hetal Vallejo - 04/29/2017 1400 EDT Review of Systems Constitutional: Negative for [...] sleep disturbance. The patient is not nervous/anxious. Hetal Vallejo 04/29/2017 13:55 * Fiordaliza Tompkins MD - 04/29/2017 1400 EDT Dermatology Outpatient Visit Note Chief Complaint Patient presents with ??? Acne ~ clindamycin little improvement Dermatologic History: 1. Acne Last Dermatology office visit: 02/2016 SUBJECTIVE Ms. John is a 27 y.o. female who presents for follow up for acne. She is currently 24weeks . She is using clindamycin solution as needed, she does not use it daily as it is tooexpensive. She does not have anyhealth insurance or Rx plan. She feels her acne has been very bad this . She is otherwise well. For full Medical, Surgical, Family, and Social histories, please see the History section of this encounter in the electronic chart which I have personally reviewed. For Review of Systems, Medications and Allergies, please see those sections of this encounter in the electronic chart which I have also reviewed. She has a current medication list which includes the following prescription(s): acetaminophen, albuterol, aspirin chewable, clindamycin, and vits62/fa/om3/dha/epa. She is allergic to adhesive; latex, natural rubber; morphine; nickel; and tramadol. OBJECTIVE VS: LMP 11/09/2016 Comment: Irregular cycles Ms. Lopez is healthy female sitting on the examination table with a normal affect. She is alert and oriented to person, place and time. She has Ke[place] type I skin. Cutaneous head and neck examination including the hair, scalp, face, eyelids, lips and neck was performed.The examination was normal with the addition of the following comments: There were no lesions suspicious for malignancy. -on the face, especially around the mouth and the chin there are numerous acneiform papules and pustules ASSESSMENT and PLAN 1. Acne, comedonal and inflammatory, currently 24 weeks -discussed that acne is very hard to treat in as there are not many options for treatment -she can continue using clindamycin solution, daily would be better but at least 2 times per week -azelaic acid is very expensive and she does not have Rx coverage -she can add benzoyl peroxide wash 4% daily to BID -once the baby is born and she has stopped breast feeding, can consider other options such as spironolactone as this has worked for her in the past. During , can consider tretinoin, however,cost will again be a factor. Return in about 6 months (around 10/27/2017) for acne . She will f/u as planned or in the interim should problems arise. Fiordaliza Tompkins MD 04/29/2017 13:59 Attestation Statement: I saw and examined the patient with the resident/fellow. I agree with the findings and plan of care documented in the resident's/fellow's note. Sujatha Craven MD Dermatology [facility] documented in this encounter Plan [...] week. use thin film on affected area Reorder 04/29/2017 documented as of this encounter Care Teams Color Grinder Relationship Specialty Start Date End Date Abdoulaye Gonzalez PCP - General 12/22/15 04/05/18 documented as of this encounter
--- OUTSIDE RECORDS SUMMARY | 2024-04-14 20:40 | XMS_ITS | Encounter Summary ---
Author Organization [facility] Address [address] [place] [address] Care Team Providers Care Production Material Coordinator Name Role Phone Carlos Abdoulaye Primary Care Provider [phone] Reason for Referral * (Routine) - Closed Specialty Diagnoses / Procedures [facility] To Contact Eliana Tang MD [address] [place] [phone] Referral ID Status Reason Start Date Expiration Date V isits Requested Visits Authorized [id number] Closed Specialty Services Required 05/10/2017 1 1 Reason for Visit * Reason Comments Headache Encounter Details Date Type Department Care Team (Late st Contact Info) Description 05/10/2017 17:20 EDT - 05/10/2017 18:40 EDT Hospital Encounter [facility] [address] [place] [address] Alise Manzano MD [address] [phone] Jalyn Pan MD [address] [phone] Discharge Disposition: Home or Self Care [...] Sign Reading Time Taken Comments Blood Pressure 111/71 05/10/2017 1737 EDT Pulse - - Temperature 35.3 ??C (95.5 ??F) 05/10/2017 1737 EDT Respiratory Rate 16 05/10/2017 1737 EDT Oxygen Saturation 97% 05/10/2017 1737 EDT Inhaled Oxygen Concentration - - Weight [...] specified related conditions, third trimester-O26.893[ICD-10-CM] R51 Headache-R51[ICD-10-CM] H53.8 Other visual disturbances-H53.8[ICD-10-CM] Z3A.26 26 weeks gestation of -Z3A.26[ICD-10-CM] documented in this encounter Medications at Time [...] affected area 60 mL 2 05/01/2017 07/13/2017 VITS62/FA/OM3/DHA/EPA ( GUMMY ORAL) Take by mouth [...] documented in this encounter Progress Notes * Eliana Tang MD - 05/10/2017 1738 EDT L&D Triage Note C/C: SANTIAGO and vision changes Gladys Lopez is a 27 y.o. @ 26w0d HPI: Pt reports 2 weeks of gradually worsening SANTIAGO. The SANTIAGO is frontal in location and currently 5-6/10. It is present all the time but varies in intensity. She also endorses occasional visual changes--seeing stars, and blurry vision, sometimes progressing to tunnel vision with a feeling like she is going to faint. This happens most often when her feet are downward--sitting and standing. Denies ctx, LOF, VB. Endorses movement. She notes that she has had some recent stressors--DCF involvement with 's other child. She is very nervous about developing pre-eclampsia with this . Per her report, she developed pre-eclampsia @35 wks and was induced at 37 weeks resulting in with her 1st .This currentpregnancy has been uncomplicated. She has presented to L&D once in February for a headache (thoughtto be migraine, treated with fluids and compazine). O: BP 111/71 Temp (!) 35.3 ??C (95.5 ??F) (Tympanic) Resp 16 LMP 11/09/2016 Comment: Irregular cycles SpO2 97% FHT: 145 baseline, mod variability, + accels, no decels; Category 1 tracing. [place]: No contractions PE: Gen: Pt is anxious appearing with occasional trembling of lower lip and jaw. In NAD. CV: RRR. Audible S1/S2. No MRG. Resp: Normal respiratory effort. Extremities: Trace pedal edema b/l. 2+ DP pulses. A/P: Gladys Lopez is a 27 y.o. @ 26w0d presenting with SANTIAGO and vision changes. Reactive NST. Symptoms are likely related to dehydration contributing to tension headache vs. migraine along with anxiety with recent psychosocial stressors. Pre-eclampsia is unlikely at 26wks and pt is norm otensive, no further pre-eclampsia w/u indicated. - Urine visually inspected and appears well hydrated. UA deferred since pt uninsured. - Encouraged PO fluid intake. - Instructed pt to continue taking tylenol. Discussed option of compazine, pt would prefer not to use this since it made her so sleepy last time. - Reassured regarding normal BP and low likelihood of pre-eclampsia. - Discharged home with precautions. Pt was amenable to this plan. - Follow-up with CNM practice as scheduled. Discussed with Cecelia Reece CNM. Eliana Tang MD 05/10/2017 17:39 PGY-1 Family Medicine * Toña Whitfield RN - 05/10/2017 1727 EDT 1725 pt presents to L&D with reports of visual changes today. She has has blurry with sparkles and dark spots like she is going to faint. Relieved by sitting down. She has a hx of preeclampsia soshe has been taking her BP at home. 140/90's were the highest. Urine sample obtained. Pt reports intermittent nausea, no emesis. Also intermittent SANTIAGO's noted, currently rates SANTIAGO pain a 6/10. She alsois not feeling as much movement as usual. \ 1735 monitors placed on pt. BP 111/70. 1738 pt now reporting chest pain, sharp and tight, needing to sit up. 1738 tracing maternal HR while sitting up due to chest pain. HR 110's, O2 sat 99% 1745 MD Tang @ bs. 1800 pt discussing a lot of stressors at home. 1820 pt states she's feeling better just being here, knowing BP is normal and seeing baby on the monitor. 183 Plan is for DC to home. documented in this encounter Plan of Treatment Scheduled Referrals Name Type Priority Associated Diagnoses Order Schedule PROVIDER FOLLOW-UP INSTRUCTIONS Outpatient Referral Routine Ordered: 05/10/2017 documented as of this encounter Goals Goal Patient Goal Type Associated Problems Recent Progress Patient-Stated? Author Blood Pressure < 130/80 Blood Pressure 118/78(2017 16:01 EDT) No Rina Agosto MD Weight Loss General Yes Rina Agosto MD Note: Goal = 145lbs documented as of this encounter Visit Diagnoses Diagnosis Supervision of high-risk - Primary Unspecified high-risk Anxiety Anxiety state, unspecified documented in this encounter Orders Diet Count Last Ordered Date First Orde red Date DISCHARGE DIET 2 05/10/2017 Nursing Count Last Ordered Date First Orde red Date BATHING INSTRUCTIONS 1 05/10/2017 Transfer Count Last Ordered Date First Orde red Date NOTIFY PPS OF DISCHARGE COMPLETE 1 05/10/20 17 Discharge Count Last Ordered Date First Orde red Date DISCHARGE PATIENT 1 05/10/2017 Legal Count Last Ordered Date First Orde red Date MISCELLANEOUS DISCHARGE INSTRUCTIONS 04/13 documented in this encounter Care Teams Production Material Coordinator Relationship Specialty Start Date End Date Abdoulaye Gonzalez PCP - General 12/22/15 04/05/18 documented as of this encounter
--- OUTSIDE RECORDS SUMMARY | 2024-04-14 20:40 | XMS_ITS | Encounter Summary ---
Author Organization [facility] Address [address] [place] [address] Care Team Providers Care Bottom Saw Operator Name Role Phone Abdoulaye Gonzalez Primary Care Provider [phone] Encounter Details Date Type Department Care Team (Late st Contact Info) Description 02/28/2017 Documentation Visit [facility] OBGYN Services - [address] [place] [address] [place], [place] [id number] Emilie Barker RN Social History Tobacco Use Types Packs/Day [...] as of this encounter Progress Notes * Emilie Barker, RN - 02/28/2017 1234 EDT Received records from [facility]. documented in this encounter Plan of Treatment [...] on filedocumented in this encounter Care Teams Bottom Saw Operator Relationship Specialty Start Date End Date Abdoulaye Gonzalez PCP - General 12/22/15 04/05/18 documented as of this encounter
--- OUTSIDE RECORDS SUMMARY | 2024-04-14 20:40 | XMS_ITS | Encounter Summary ---
Author Organization [facility] Address [address] [place] [address] Care Team Providers Care Events Specialist Name Role Phone Abdoulaye Gonzalez Primary Care Provider [phone] Encounter Details Date Type Department Care Team (Late st Contact Info) Description 02/05/2017 Results Only Imaging [facility] [phone] Iman Cartagena CN [address] [place] [address] Social History Tobacco Use Types Packs/Day [...] Procedure Name Priority Date/Time Associated Diagnosis Comments [facility] INTEGRATED SCREEN 02/05/2017 9:39 EDT documented in this encounter Results * [facility] INTEGRATED SCREEN (02/05/2017 9:39 EDT) Anatomical Region Laterality Modality Other 02/05/2017 9:39 EDT 02/05/2017 11:42 EDT Narrative 02/05/2017 11:42 EDT Indication Screening for chromosome abnormalities by nuchal translucency screening. History ======= General History Height 163 cm Height (ft) ?5 ft Height (in) ?4 in Previous Outcomes ?2 Para ?? 1 [place] children born (T) ?1 [place] children born (P) ?0 Abortions (A) ??0 [place] living children (L) ??1 Maternal Assessment Height 163 cm Height (ft) ?5 ft Height (in) ?4 in Number of fetuses: 1. Dating ======= LMP on: ?11/09/2016 GA by LMP ??12 w + 4 d AMA by LMP : ? 08/16/2017 Ultrasound examination on: 02/05/2017 GA by U/S based upon: ??CRL GA by U/S ??13 w + 2 d AMA by U/S: ?08/11/2017 Assigned: ??Dating performed on 12/27/2016 Based on the LMP Assigned GA ?12 w + 4 d Assigned AMA: ??08/16/2017 General Evaluation Cardiac activity: Present. Biometry CRL ?70.4 mm 87% 13w 2d Hadlock NT 2.4 mm FHR ?164 bpm 65% Nicolaides Risk Parameters History Age ?26 yrs U/S Markers Nasal bone: ?present Cardiac activity: ??Present FHR ?164 bpm Method ======== Voluson E10, Transabdominal ultrasound examination. View: Sufficient. Impression NOTE: This study was ordered as an NT ONLY so maternal and anatomy assessments were not performed. [address] Nuchal translucency measurement This is a milan gestation. Nuchal translucency is 2.4 mm. Omphalocele is not present. To complete the integrated screen, second trimester serum must be drawn and sent to [facility], preferably at 15-16 weeks'. Follow-up Follow-up as clinically indicated. Procedure Note Mary Palomares MD - 02/05/2017 Indication Screening for chromosome abnormalities by nuchal translucency screening. History ======= General History Height 163 cm Height (ft) 5 ft Height (in) 4 in Previous Outcomes 2 Para 1 [place] children born (T) 1 [place] children born (P) 0 Abortions (A) 0 [place] living children (L) 1 Maternal Assessment Height 163 cm Height (ft) 5 ft Height (in) 4 in Number of fetuses: 1. Dating ======= LMP on: 11/09/2016 GA by LMP 12 w + 4 d AMA by LMP : 08/16/2017 Ultrasound examination on: 02/05/2017 GA by U/S based upon: CRL GA by U/S 13 w + 2 d AMA by U/S: 08/11/2017 Assigned: Dating performed on 12/27/2016 Based on the LMP Assigned GA 12 w + 4 d Assigned AMA: 08/16/2017 General Evaluation Cardiac activity: Present. Biometry CRL 70.4 mm 87% 13w 2d Hadlock NT 2.4 mm FHR 164 bpm 65% Nicolaides Risk Parameters History Age 26 yrs U/S Markers Nasal bone: present Cardiac activity: Present FHR 164 bpm Method ======== Voluson E10, Transabdominal ultrasound examination. View: Sufficient. Impression NOTE: This study was ordered as an NT ONLY so maternal and anatomy assessments were not performed. [id number] Nuchal translucency measurement This is a milan gestation. Nuchal translucency is 2.4 mm. Omphalocele is not present. To complete the integrated screen, second trimester serum must be drawn and sent to [facility], preferably at 15-16 weeks'. Follow-up Follow-up as clinically indicated. Iman Cartagena CNM [facility] ORDERABLE S documented in this encounter Visit Diagnoses Not on filedocumented in this encounter Care Teams Events Specialist Relationship Specialty Start Date End Date Abdoulaye Gonzalez PCP - General 12/22/15 04/05/18 documented as of this encounter
--- OUTSIDE RECORDS SUMMARY | 2024-04-14 20:40 | XMS_ITS | Encounter Summary ---
Author Organization [facility] Address [address] [place] [address] Care Team Providers Care Insurance Sales Manager Name Role Phone Abdoulaye Gonzalez Primary Care Provider [phone] Encounter Details Date Type Department Care Team (Late st Contact Info) Description 02/05/2017 Phlebotomy Only [facility] [address] [place] [address] Migration Agent, Outpatient Social History Tobacco Use Types Packs/Day Years [...] Agosto MD Weight Loss General Yes Rina Agsoto MD Note: Goal = 145lbs documented as of this encounter Visit Diagnoses Not on filedocumented in this encounter Care Teams Insurance Sales Manager Relationship Specialty Start Date End Date Abdoulaye Gonzalez PCP - General 12/22/15 04/05/18 documented as of this encounter
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
--- OUTSIDE RECORDS SUMMARY | 2024-04-14 20:40 | XMS_ITS | Encounter Summary ---
Author Organization [facility] Address [address] [place] [address] Care Team Providers Care Retail Marketing Manager Name Role Phone Abdoulaye Gonzalez Primary Care Provider [phone] Reason for Referral * (Routine) - Closed Specialty Diagnoses / Procedures Referred By Gregory t Referred To Contact Earl Guadarrama NP CNM [address] [address] Referral ID Status Reason Start Date Expiration Date V isits Requested Visits Authorized [id number] Closed Specialty Services Required 03/25/2017 1 1 Reason for Visit * Reason Comments Rupture of Membranes rule out Abdominal Pain Encounter Details Date Type Department Care Team (Late st Contact Info) Description 03/25/2017 10:31 EDT - 03/25/2017 12:35 EDT Hospital Encounter [facility] [address] [place] [address] Renetta Flor MD [address] [address] Supervision of high-risk , second trimester (Primary Dx) Discharge Disposition: Home or [...] Sign Reading Time Taken Comments Blood Pressure 123/74 03/25/2017 1051 EDT Pulse - - Temperature 36 ??C (96.8 ??F) 03/25/2017 1051 EDT Respiratory Rate 20 03/25/2017 1051 EDT Oxygen Saturation - - Inhaled Oxygen [...] as of this encounter Discharge Diagnoses Diagnosis O47.02 False labor before 37 completed weeks of gestation, second trimester-O47.02[ICD-10-CM] Z87.59 Personal history of other complications of , childbirth and the puerperium-Z87.59[ICD-10-CM] Z3A.19 19 weeks gestation of -Z3A.19[ICD-10-CM] documented in this encounter Medications at Time [...] documented in this encounter Progress Notes * Earl Guadarrama CNM - 03/25/2017 1200 EDT Late entry S: Gladys here with and son after calling with c/o LLQ sharp pain radiating to cramping throughout lower abdomen. No abdominal trauma or muscle strain that she can remember. Has history of kidney stones but this doesn't feel that way. Also reports greenish mucousy discharge 3 days ago followed by episodes of small amount of clear fluid leaking. No regular contractions or bleeding. No nausea, vomiting or diarrhea. No history of UTI. O: Appears well, NAD BP 123/74 Temp 36 ??C (96.8 ??F) (Oral) Resp 20 LMP 11/09/2016 Comment: Irregular cycles Abdomen palpates soft, mildly tender in LLQ and mid lower back. Neg CVAT bilaterally FHR 150s by doptone SSE: Cervix appears long and closed, anxious with speculum exam Neg pool, neg nitrazine, neg ferning Wet diana neg for clue, hyphae, WBCs or trich and negative amine Results for orders placed or performed during the hospital encounter of 03/25/17 (from the past 24 hour(s)) URINALYSIS WITH MICROSCOPIC IF POSITIVE Collection Time: 03/25/17 11:37 Result Value Ref Range Color, UA Yellow Clarity, UA Clear Glucose, UA Neg Neg Bilirubin, UA Neg Neg Ketones, UA Neg Neg Specific [place], Urine 1.010 1.001 - 1.035 Blood, UA Neg Neg pH, UA 6.5 4.6 - 8.0 Protein, UA Trace (A) Neg Urobilinogen, UA 0.2 0.2 - 1.0 E.U./dl Nitrite, UA Neg Neg Leuk Esterase Neg Neg UA REFLEX Collection Time: 03/25/17 11:37 Result Value Ref Range UA Billing Microscopic not indicated. A: 27 yo at 19w3d with LLQ pain and leakage of clear fluid Suspect left round ligament strain and multipara discomforts No evidence of UTI or kidney stones per UA No evicence of ROM, Suspect fluid leakage to be urine and leukorrhea of R/o GC/CT Hx PEC in first P: Heating pad given, encouraged to use PRN GC/CT sent and pending Increase PO fluids Do Kegels, instructions given S/sx PTL reviewed, call with worsening symtpoms Keep upcoming appointments * Katelyn Kirkland, RN - 03/25/2017 1107 EDT 1110- Patient is a , history of preeclampsia with first child, patient arrived with andtwo year old with complaints of lower left abdomen pain. Patient states Friday night she had abdomen pain and back pain which felt like menstrual cramps, patient felt like she had to go urinate, so she urinated and patient felt like she leaked sticky green/yellow discharge. Patient is here to r/o rupture of membranes. 1145- Sterile speculum exam done by Chiara PETIT. Cervix visually closed. 1153- CNM Chiara states no evidence of amniotic fluid. Awaiting urine sample results. 1230- Discharge order written by treatment team. Patient is pain-free, has no further questions, and states she understands discharge instructions. Signed copy of AVS received. Pt left with family. documented in this encounter Plan of Treatment Scheduled Referrals Name Type Priority Associated Diagnoses Order Schedule PROVIDER FOLLOW-UP INSTRUCTIONS Outpatient Referral Routine Ordered: 03/25/2017 documented as of this encounter Goals Goal Patient Goal Type Associated Problems Recent Progress Patient-Stated? Author Blood Pressure < 130/80 Blood Pressure 118/78(2017 16:01 EDT) No Rina Agosto MD Weight Loss General Yes Rina Agosto MD Note: Goal = 145lbs documented as of this encounter Procedures Procedure Name Priority Date/Time Associated Diagnosis Comments CHLAMYDIA/N. GONORRHOEAE AMPLIFIED NUCLEIC ACID STAT 03/25/2017 11:40 EDT URINALYSIS WITH MICROSCOPIC IF POSITIVE STAT 03/25/2017 11:37 EDT UA REFLEX Routine 03/25/2017 11:37 EDT URINE CULTURE IF POSITIVE STAT 03/25/2017 11:37 EDT documented in this encounter Results * CHLAMYDIA/N. GONORRHOEAE AMPLIFIED RNA (03/25/2017 11:40 EDT) Chlamydia Result Negative 03/26/2017 13:54 EDT [facility] GC Result Negative 03/26/2017 13:54 EDT [facility] Specimen of unknown material (specimen) ENDOCERVICAL STRUCTURE / Unknown 03/25/2017 11:40 EDT 03/25/2017 12:06 EDT Earl YANG MICROBIOLOG Y - GENERAL ORDERABLES Performing Organization Address City/[facility] Co de Phone Number [facility] [address] [place] [address] * UA REFLEX (03/25/2017 11:37 EDT) UA Billing Microscopic not indicated. 03/25/2017 12:17 EDT [facility] URINE / Unknown 03/25/2017 1 1:37 EDT 03/25/2017 11:49 EDT Earl Guadarrama RECYCLABLE MATERIALS DISTRIBUTOR CNM URINALYSIS ORDERABLES Performing Organization Address City/[facility]/ZIP Co de Phone Number [facility] [address] [place] [address] * URINE CULTURE IF UA POSITIVE - NON POCT URINALYSIS ONLY (03/25/2017 11:37 EDT) Culture if Indicated Culture not indicated by urinalysis results. 03/25/2017 14:22 [facility] Urine specimen (specimen) TOPOGRAPHY UNKNOWN / Unknown 03/25/2017 11:37 EDT 03/25/2017 11:49 EDT Earl Guadarrama NP CNEric MICROBIOLOG Y - GENERAL ORDERABLES [facility] [address] [place] [address] * (ABNORMAL) URINALYSIS WITH MICROSCOPIC IF POSITIVE (03/25/2017 11:37 EDT) Color, UA Yellow 03/25/2017 12:17 [facility] Clarity, UA Clear 03/25/2017 12:17 [facility] Glucose, UA Neg Neg 03/25/2017 12:17 [facility] Bilirubin, UA Neg Neg 03/25/2017 12:17 [facility] Ketones, UA Neg Neg 03/25/2017 12:17 [facility] Specific [place], Urine 1.010 1.001 - 1.035 03/25/2017 12:17 [facility] Blood, UA Neg Neg 03/25/2017 12:17 [facility] pH, UA 6.5 4.6 - 8.0 03/25/2017 12:17 [facility] Protein, UA Trace(A) Neg 03/25/2017 12:17 [facility] Urobilinogen, UA 0.2 0.2 - 1.0 E.U./dl 03/25/2017 12:17 [facility] Nitrite, UA Neg Neg 03/25/2017 12:17 [facility] Leuk Esterase Neg Neg 03/25/2017 12:17 [facility] Urine specimen (specimen) URINE / Unknown 03/25/2017 11:37 EDT 03/25/2017 11:49 EDT Earl Guadarrama NP CNEric URINALYSIS ORDERABLES [facility] [address] [place] [address] documented in this encounter Visit Diagnoses Diagnosis Supervision of high-risk , second trimester- Primary Supervision of high-risk Unspecified high-risk documented in this encounter Historical Medications * This list may reflect changes made after this encounter. Medication Sig Dispensed Refills Start Date End Date acetaminophen (TYLENOL) 500 mg tablet Take 500 mg by mouth every 6 hours as needed for Pain. 06/21/2017 added in this encounter Orders Diet Count Last Ordered Date First Orde red Date DISCHARGE DIET 2 03/25/2017 Nursing Count Last Ordered Date First Orde red Date ACTIVITY INSTRUCTIONS 1 03/25/2017 BATHING INSTRUCTIONS 1 03/25/2017 Admission Count Last Ordered Date First Orde red Date STATUS: OUTPATIENT OBSERVATION SERVICES 1 0 03/25/2017 Transfer Count Last Ordered Date First Orde red Date NOTIFY PPS OF DISCHARGE COMPLETE 1 03/25/20 17 Discharge Count Last Ordered Date First Orde red Date DISCHARGE PATIENT 1 03/25/2017 Legal Count Last Ordered Date First Orde red Date MISCELLANEOUS DISCHARGE INSTRUCTIONS 1 03/11 documented in this encounter Care Teams Retail Marketing Manager Relationship Specialty Start Date End Date Abdoulaye Gonzalez PCP - General 12/22/15 04/05/18 documented as of this encounter
--- OUTSIDE RECORDS SUMMARY | 2024-04-14 20:40 | XMS_ITS | Encounter Summary ---
Author Organization [facility] Address [address] [place] [address] Care Team Providers Care Ict Security Specialist Name Role Phone Abdoulaye Gonzalez Primary Care Provider [phone] Encounter Details Date Type Department Care Team (Late st Contact Info) Description 03/19/2017 Documentation Visit [facility] - Main Drifting [address] [place], [place] [id number] Latisha Draper RN Social History Tobacco Use Types Packs/Day [...] as of this encounter Progress Notes * Latisha Draper, RN - 03/19/2017 1442 EDT Records received from [facility] and attached to chart for 03/20/17 AURELIA appointment with Megha Interiano CNM. documented in this encounter Plan of Treatment [...] Date/Time Associated Diagnosis Comments SYPHILIS SEROLOGY Routine 12/31/2016 CHLAMYDIA/N. GONORRHOEAE AMPLIFIED NUCLEIC ACID Routine 12/31/2016 RUBELLA IGG ANTIBODY Routine 12/31/2016 HEPATITIS B SURFACE ANTIGEN Routine 12/31/2016 COMPLETE BLOOD COUNT Routine 12/31/2016 BACTERIAL CULTURE, URINE Routine 12/31/2016 HIV 1/2 ANTIGEN AND ANTIBODY, 4TH GENERATION Routine 12/31/2016 URIC ACID Routine 12/31/2016 ALT Routine 12/31/2016 AST Routine 12/31/2016 TSH Routine 12/31/2016 HEMOGLOBIN A1C Routine 12/31/2016 CREATININE Routine 12/31/2016 documented in this encounter Results * URIC ACID (12/31/2016) Uric Acid 2.7 [facility] Blood specimen (specimen) Historical Provider CHEMISTRY & BLOOD GAS ORDERABLES [facility] * ALT (12/31/2016) ALT 14 [facility] Blood specimen (specimen) Historical Provider CHEMISTRY & BLOOD GAS ORDERABLES [facility] * AST (12/31/2016) AST 10 [facility] Blood specimen (specimen) Historical Provider CHEMISTRY & BLOOD GAS ORDERABLES [facility] * TSH (12/31/2016) TSH, External 0.73 [facility] Blood specimen (specimen) Historical Provider CHEMISTRY & BLOOD GAS ORDERABLES [facility] * RUBELLA IGG ANTIBODY (12/31/2016) Rubella IgG Ab, External Positive [facility] Blood specimen (specimen) Historical Provider CHEMISTRY & BLOOD GAS ORDERABLES [facility] * SYPHILIS SEROLOGY (12/31/2016) RPR for Donors Negative [facility] Blood specimen (specimen) Historical Provider IMMUNOLOGY AND SE ROLOGY ORDERABLES [facility] * BACTERIAL CULTURE, URINE (12/31/2016) Report Status, External Final [facility] Result, External mixed gram positive [facility] Specimen Description, External clean catch [facility] Urine specimen (specimen) 12/31/2016 Historical Provider MICROBIOLOGY - GE NERAL ORDERABLES Performing Organization Address City/[facility]/ZIP Co de Phone Number [facility] * HIV 1/2 ANTIBODY (12/31/2016) HIV 1/2 Antibody Negative [facility] Blood specimen (specimen) Historical Provider IMMUNOLOGY AND SE ROLOGY ORDERABLES Performing Organization Address [facility]/ZIP Co de Phone Number [facility] * HEMOGLOBIN A1C (12/31/2016) Hemoglobin A1C 4.7 [facility] Blood specimen (specimen) Historical Provider CHEMISTRY & BLOOD GAS ORDERABLES [facility] * CREATININE (12/31/2016) Creatinine 0.53 [facility] Blood specimen (specimen) Historical Provider CHEMISTRY & BLOOD GAS ORDERABLES Performing Organization Address City/[facility]/ZIP Co de Phone Number [facility] * HEPATITIS B SURFACE ANTIGEN (12/31/2016) Hepatitis B Surface Ag Negative [facility] Blood specimen (specimen) Historical Provider CHEMISTRY & BLOOD GAS ORDERABLES Performing Organization Address [facility]/ZIP Co de Phone Number [facility] * HEMAGRAM (12/31/2016) PLT, External 295 [facility] HCT, External 38.0 [facility] Blood specimen (specimen) Historical Provider HEMATOLOGY & PF4 ORDERABLES [facility] * CHLAMYDIA/N. GONORRHOEAE AMPLIFIED RNA (12/31/2016) Result-Chlamyd ia Amp Probe, External Negative [facility] Result-GC Amp Probe, External Negative [facility] Specimen Description, External urine [facility] Specimen of unknown material (specimen) 12/31/2016 Historical Provider MICROBIOLOGY - GE NERAL ORDERABLES [facility] documented in this encounter Visit Diagnoses Not on filedocumented in this encounter Care Teams Ict Security Specialist Relationship Specialty Start Date End Date Abdoulaye Gonzalez PCP - General 12/22/15 04/05/18 documented as of this encounter
--- OUTSIDE RECORDS SUMMARY | 2024-04-14 20:40 | XMS_ITS | Encounter Summary ---
Author Organization [facility] Address [address] [place] [address] Care Team Providers Care Staff Consultant Name Role Phone MgAbdoulaye gusman Primary Care Provider [phone] Encounter Details Date Type Department Care Team (Late st Contact Info) Description 03/05/2017 Phlebotomy Only [address] [address] Medical Laboratory Specialist, Outpatient Supervision of normal intrauterine in multigravida in first trimester; Back pain affecting , antepartum Social History Tobacco Use Types Packs/Day Years [...] Procedure Name Priority Date/Time Associated Diagnosis Comments BACTERIAL CULTURE, URINE Routine 03/05/2017 11:19 EDT Back pain affecting , antepartum URINALYSIS WITH MICROSCOPIC IF POSITIVE Routine 03/05/2017 11:16 EDT Back pain affecting , antepartum [id number] INTEGRATED SCREEN Routine 03/05/2017 11:16 EDT Supervision of normal intrauterine in multigravida in first trimester documented in this encounter Results * BACTERIAL CULTURE, URINE (03/05/2017 11:19 EDT) Result 10,000 to 100,000 CFU/ml Usual urogenital cristine. 03/06/2017 7:51 EDT [facility] Urine specimen (specimen) URINE / Unknown 03/05/2017 11:19 EDT 03/05/2017 11:47 EDT Genia Peters NP [facility] MICROBIOLOGY - GENERAL ORDERABLES [facility] [address] [place] [address] * URINALYSIS WITH MICROSCOPIC IF POSITIVE (03/05/2017 11:16 EDT) Color, UA Yellow 03/05/2017 12:02 EDT [facility] Clarity, UA Clear 03/05/2017 12:02 EDT [facility] Glucose, UA Neg Neg 03/05/2017 12:02 EDT [facility] Bilirubin, UA Neg Neg 03/05/2017 12:02 EDT [facility] Ketones, UA Neg Neg 03/05/2017 12:02 EDT [facility] Specific [place], Urine 1.025 1.001 - 1.035 03/05/2017 12:02 EDT [facility] Blood, UA Neg Neg 03/05/2017 12:02 EDT [facility] pH, UA 6.0 4.6 - 8.0 03/05/2017 12:02 EDT [facility] Protein, UA Neg Neg 03/05/2017 12:02 EDT [facility] Urobilinogen, UA 0.2 0.2 - 1.0 E.U./dl 03/05/2017 12:02 EDT [facility] Nitrite, UA Neg Neg 03/05/2017 12:02 EDT [facility] Leuk Esterase Neg Neg 03/05/2017 12:02 EDT [facility] Urine specimen (specimen) URINE / Unknown 03/05/2017 11:16 EDT 03/05/2017 11:47 EDT Genia Peters NP [facility] URINALYSIS ORD ERABLES [facility] [address] [place] [address] * 2ND INTEGRATED SCREEN (03/05/2017 11:16 EDT) Result-Integrated Screen See Pathology Scanned Report in PRISM. 03/19/2017 9:09 EDT [facility] Interpretation See Pathology Scanned Report in PRISM. 03/19/2017 9:09 EDT [facility] Reference Lab Assayed at [facility] , [place], [place] 03/19/2017 9:09 EDT [facility] Blood specimen (specimen) BLOOD SPECIMEN / Unknown 03/05/2017 11:16 EDT 03/05/2017 11:47 EDT Norma Samuels [facility] CHEMISTRY & BLOOD GA S ORDERABLES [facility] [address] [place] [address] documented in this encounter Visit Diagnoses Diagnosis Supervision of normal intrauterine in multigravida in first trimester Back pain affecting , antepartum documented in this encounter Care Teams Staff Consultant Relationship Specialty Start Date End Date Abdoulaye Gonzalez PCP - General 12/22/15 04/05/18 documented as of this encounter
--- OUTSIDE RECORDS SUMMARY | 2024-04-14 20:40 | XMS_ITS | Encounter Summary ---
Author Organization [facility] Address [address] [place] [address] Care Team Providers Care Cad Engineer Name Role Phone Abdoulaye Gonzalez Primary Care Provider [phone] Reason for Visit * Reason Onset Date Comments Cough 02/04/2017 Encounter Details Date Type Department Care Team (Late st Contact Info) Description 02/04/2017 Telephone [facility] - [address] [phone] Abdoulaye Gonzalez [address] [place] [id number] Cough Social History Tobacco Use Types Packs/Day Years [...] Miscellaneous Notes * Telephone Encounter - Svetlana Mccollum, RN - 02/04/2017 0845 EDT Pt scheduled in to see Karrie Martinez NP this afternoon. * Telephone Encounter - Marian Villalobos - 02/04/2017 0833 EDT Reason for Call: Cough Summary/Symptoms: Pt calling with significant coughing. States she's been having difficulty sleeping because of it. Used a nebulizer. Doesn't seem to be helping. Would like to see Abdoulaye, however isunable to get to the available one tomorrow and does not want to wait longer. Would like to speak to a nurse for options. Please advise Onset and Duration? Last week Appointment Offered? Yes Marian Villalobos 02/04/2017 8:33 documented in this encounter Plan of Treatment [...] on filedocumented in this encounter Care Teams Cad Engineer Relationship Specialty Start Date End Date Abdoulaye Gonzalez PCP - General 12/22/15 04/05/18 documented as of this encounter
--- OUTSIDE RECORDS SUMMARY | 2024-04-14 20:40 | XMS_ITS | Encounter Summary ---
Author Organization [facility] Address [address] [place] [address] Care Team Providers Care Rectifying Attendant Name Role Phone Abdoulaye Gonzalez Primary Care Provider [phone] Reason for Referral * (Routine) - Closed Specialty Diagnoses / Procedures Referred By Gregory velez Referred To Contact Earl Guadarrama NP CNM [address] [address] Referral ID Status Reason Start Date Expiration Date V isits Requested Visits Authorized [id number] Closed Specialty Services Required 04/20/2017 1 1 Encounter Details Date Type Department Care Team (Late st Contact Info) Description 04/20/2017 21:51 EDT - 04/20/2017 23:15 EDT Hospital Encounter [facility] [address] [place] [address] Renetta Flor MD [address] [place] [phone] Alise Manzano MD [address] [place] [phone] Supervision of high-risk , second trimester [...] Sign Reading Time Taken Comments Blood Pressure 111/65 04/20/2017 222 EDT Pulse - - Temperature 36.2 ??C (97.2 ??F) 04/20/20172219 EDT Respiratory Rate 18 04/20/20172219 EDT Oxygen Saturation - - Inhaled Oxygen [...] 37 completed weeks of gestation, second trimester-O47.02[ICD-10-CM] Z3A.23 23 weeks gestation of -Z3A.23[ICD-10-CM] documented in this encounter Medications at Time [...] Progress Notes * Earl Guadarrama CNM - 04/20/2017 6892 EDT S: Gladys here with report of lower abdominal cramping that feels like early labor - comes and goes and has been worsening throughout the evening, called when she was having the pains every 10 minutes and was having to breathe through them. Also noticed small amount of leakage tonight, unsure if her water broke. No bleeding +FM. No fever, nausea, vomiting, diarrhea, or dysuria. Hx of kidney stones but they presented as flank pain and felt different from this. No sick contacts. Was seen for ROM check a month ago and had GC/GC sent and was negative, thought at that time to be experiencing urinary incontinence. O: BP 111/65 Temp 36.2 ??C (97.2 ??F) (Tympanic) Resp 18 LMP 11/09/2016 Comment: Irregular cycles Back: Neg CVA tenderness bilaterally Abdomen: Gravid, soft, mildly tender to palpation, palpates soft during reported contraction FHR: 155 per doppler Delbarton: Irritability SSE: Neg pool, neg nitrazine, neg ferning, Neg valsalva. Creamy white discharge in vault, cervix appears long and closed SVE: Long, closed, high Wet mount: Neg WBCs, neg hyphae, neg clue, neg trich, neg whiff, ph 6 Results for orders placed or performed during the hospital encounter of 04/20/17 (from the past 24 hour(s)) URINALYSIS WITH MICROSCOPIC IF POSITIVE Collection Time: 04/20/17 22:50 Result Value Ref Range Color, UA Yellow Clarity, UA Clear Glucose, UA Neg Neg Bilirubin, UA Neg Neg Ketones, UA Neg Neg Specific [place], Urine <1.005 1.001 - 1.035 Blood, UA Trace (A) Neg pH, UA 6.5 4.6 - 8.0 Protein, UA Neg Neg Urobilinogen, UA 0.2 0.2 - 1.0 E.U./dl Nitrite, UA Neg Neg Leuk Esterase Neg Neg URINE CULTURE IF UA POSITIVE - NON POCT URINALYSIS ONLY Collection Time: 04/20/17 22:50 Result Value Ref Range Culture if Indicated Culture not indicated by urinalysis results. UA REFLEX Collection Time: 04/20/17 22:50 Result Value Ref Range UA Billing Microscopic not indicated. A: 27 yo at 23w1d with lower abdominal pain of unknown etiology Suspect abdominal pain due to multipara discomfort vs uterine irritability vs early stages of GI virus Leakage likely urinary incontinence vs leukorrhea of , no evidence of ROM or vaginitis No evidence of UTI, UA with trace blood as only abnormal finding Hx kidney stones, low suspicion for kidney stones today P: Continue excellent PO hydration, heating pad for abdomen, rest tonight - take 50mg benadryl PRN at bedtime if too uncomfortable to sleep. Call if contractions worsen or develops other signs of PTL Keep APV on 04/22 * María Villatoro RN - 04/20/2017 2221 EDT 2149-Pt here on L&D for PTL check. Pt c/o of feeling awful today with lower back and pelvic pain Pt also had small gushes of fluid multiple times when she would sit done. Pt feeling exhausted. Pt to BR to void, change and in bed. FHR 155 with doppler. Delbarton placed on pt. 221-Jared in to see pt. SSE, FFN, GEN PROBE, and GBS swab collected. Neg nitrizine, neg pooling. 2247-SVE long and closed. 2254-Urine collected and sent to lab. Pt to be d/c'd home with heat pack for back pain. Will call if sx worsen. Pt to follow up in office. documented in this encounter Plan of Treatment Scheduled Referrals Name Type Priority Associated Diagnoses Order Schedule PROVIDER FOLLOW-UP INSTRUCTIONS Outpatient Referral Routine Ordered: 04/20/2017 documented as of this encounter Goals Goal Patient Goal Type Associated Problems Recent Progress Patient-Stated? Author Blood Pressure < 130/80 Blood Pressure 118/78(2017 16:01 EDT) No Rina Agosto MD Weight Loss General Yes Rina Agosto MD Note: Goal = 145lbs documented as of this encounter Procedures Procedure Name Priority Date/Time Associated Diagnosis Comments URINALYSIS WITH MICROSCOPIC IF POSITIVE STAT 04/20/2017 22:50 EDT UA REFLEX Routine 04/20/2017 22:50 EDT URINE CULTURE IF POSITIVE STAT 04/20/2017 22:50 EDT documented in this encounter Results * UA REFLEX (04/20/2017 22:50 EDT) UA Billing Microscopic not indicated. 04/20/2017 23:03 EDT [facility] URINE / Unknown 04/20/2017 2 2:50 EDT 04/20/2017 22:58 EDT Earl Guadarrama NP M URINALYSIS ORDERABLES [facility] [address] [place] [address] * URINE CULTURE IF UA POSITIVE - NON POCT URINALYSIS ONLY (04/20/2017 22:50 EDT) Culture if Indicated Culture not indicated by urinalysis results. 04/20/2017 23:03 EDT [facility] Urine specimen (specimen) TOPOGRAPHY UNKNOWN / Unknown 04/20/2017 22:50 EDT 04/20/2017 22:58 EDT Earl Guadarrama GAS CUTTING MACHINE OPERATOR CNM MICROBIOLOG Y - GENERAL ORDERABLES Performing Organization Address City/[facility]/ZIP Co de Phone Number [facility] [address] [place] [address] * (ABNORMAL) URINALYSIS WITH MICROSCOPIC IF POSITIVE (04/20/2017 22:50 EDT) Color, UA Yellow 04/20/2017 23:03 EDT [facility] Clarity, UA Clear 04/20/2017 23:03 EDT [facility] Glucose, UA Neg Neg 04/20/2017 23:03 T [facility] Bilirubin, UA Neg Neg 04/20/2017 23:03 T [facility] Ketones, UA Neg Neg 04/20/2017 23:03 [facility] Specific [place], Urine <1.005 1.001 - 1.035 04/20/2017 23:03 [facility] Blood, UA Trace(A) Neg 04/20/2017 23:03 [facility] pH, UA 6.5 4.6 - 8.0 04/20/2017 23:03 [facility] Protein, UA Neg Neg 04/20/2017 23:03 [facility] Urobilinogen, UA 0.2 0.2 - 1.0 E.U./dl 04/20/2017 23:03 [facility] Nitrite, UA Neg Neg 04/20/2017 23:03 T [facility] Leuk Esterase Neg Neg 04/20/2017 23:03 [facility] Urine specimen (specimen) URINE / Unknown 04/20/2017 22:50 EDT 04/20/2017 22:58 EDT Earl Guadarrama GAS CUTTING MACHINE OPERATOR CNM URINALYSIS ORDERABLES Performing Organization Address City/[facility]/ZIP Co de Phone Number [facility] [address] [place] [address] documented in this encounter Visit Diagnoses Diagnosis Supervision of high-risk , second trimester- Primary Supervision of high-risk Unspecified high-risk documented in this encounter Orders Diet Count Last Ordered Date First Orde red Date DISCHARGE DIET 2 04/20/2017 Nursing Count Last Ordered Date First Orde red Date ACTIVITY INSTRUCTIONS 2 04/20/2017 BATHING INSTRUCTIONS 1 04/20/2017 Admission Count Last Ordered Date First Orde red Date STATUS: OUTPATIENT OBSERVATION SERVICES 1 0 04/20/2017 Transfer Count Last Ordered Date First Orde red Date NOTIFY PPS OF DISCHARGE COMPLETE 1 04/20/20 17 Discharge Count Last Ordered Date First Orde red Date DISCHARGE PATIENT 1 04/20/2017 Legal Count Last Ordered Date First Orde red Date MISCELLANEOUS DISCHARGE INSTRUCTIONS 1 04/11 documented in this encounter Care Teams Rectifying Attendant Relationship Specialty Start Date End Date Abdoulaye Gonzalez PCP - General 12/22/15 04/05/18 documented as of this encounter
--- OUTSIDE RECORDS SUMMARY | 2024-04-14 20:40 | XMS_ITS | Encounter Summary ---
Author Organization [facility] Address [address] [place] [address] Care Team Providers Care Inspector Repairer Sandstone Name Role Phone Abdoulaye Gonzalez Primary Care Provider [phone] Encounter Details Date Type Department Care Team (Late st Contact Info) Description 03/05/2017 10:49 EDT - 03/05/2017 23:59 EDT Hospital Encounter [facility] [address] [place] [address] Mary Palomares MD [address] [facility] [address] [place] [id number] Discharge Disposition: Home or Self Care Social [...] as of this encounter Discharge Diagnoses Diagnosis O26.899 Other specified related conditions, unspecified trimester-O26.899[ICD-10-CM] M54.9 Dorsalgia, unspecified-M54.9[ICD-10-CM] Z34.81 Encounter for supervision of other normal , first trimester-Z34.81[ICD-10-CM] documented in this encounter Medications at Time of Discharge Medication Sig Dispensed Refills Start Date End Date albuterol 90 mcg/actuation inhaler Inhale 1 Puff as directed every 4 hours as needed for Wheezing. 1 Inhaler 2 11/04/2016 09/10/2017 aspirin chewable 81 mg tablet Take 81 mg by mouth daily. 08/13/2017 sumatriptan (IMITREX) 50 mg tablet Take 1 Tab by mouth once as needed for up to 1 dose for Migraine. May repeat 1 in two hours if needed do not exceed more than 5 per month 9 Tab 11 03/19/2016 09/10/2017 documented as of this encounter Discharge Disposition Disposition Code Departure Means Destination Home or Self Detention documented in this encounter Plan of Treatment [...] Name Priority Date/Time Associated Diagnosis Comments UA REFLEX Routine 03/05/2017 11:16 EDT documented in this encounter Results * UA REFLEX (03/05/2017 11:16 EDT) UA Billing Microscopic not indicated. 03/05/2017 12:02 EDT [facility] URINE / Unknown 03/05/2017 1 1:16 EDT 03/05/2017 11:47 EDT Genia Peters NP CNM URINALYSIS ORD ERABLES [facility] [address] [place] [address] documented in this encounter Visit Diagnoses Not on filedocumented in this encounter Care Teams Inspector Repairer Sandstone Relationship Specialty Start Date End Date Abdoulaye Gonzalez PCP - General 12/22/15 04/05/18 documented as of this encounter
--- OUTSIDE RECORDS SUMMARY | 2024-04-14 20:40 | XMS_ITS | Encounter Summary ---
Author Organization [facility] Address [address] [place] [address] Care Team Providers Care Belly Packer Name Role Phone Abdoulaye Gonzalez Primary Care Provider [phone] Encounter Details Date Type Department Care Team (Late st Contact Info) Description 02/05/2017 Results Only [facility] [address] [place], [place] [id number] Mary Palomares MD [address] [facility], Level [address] [place] [address] Social History Tobacco Use Types [...] Procedure Name Priority Date/Time Associated Diagnosis Comments FIRST INTEGRATED SCREEN Routine 02/05/2017 10:00 EDT documented in this encounter Results * FIRST INTEGRATED SCREEN (02/05/2017 10:00 EDT) First Integrated Screen to [facility] Sample sent to [facility] 02/05/2017 14:50 EDT [facility] BLOOD SPECIMEN / Unknown 02/05/2017 10:00 EDT 02/05/2017 10:18 EDT Mary Palomares MD CHEMISTRY & BLOOD GA S ORDERABLES [facility] [address] [place] [address] documented in this encounter Visit Diagnoses Not on filedocumented in this encounter Care Teams Belly Packer Relationship Specialty Start Date End Date Abdoulaye Gonzalez PCP - General 12/22/15 04/05/18 documented as of this encounter
--- OUTSIDE RECORDS SUMMARY | 2024-04-14 20:40 | XMS_ITS | Encounter Summary ---
Author Organization [facility] Address [address] [place] [address] Care Team Providers Care Dialysis Tech Name Role Phone Abdoulaye Gonzalez Primary Care Provider [phone] Reason for Visit * Reason Onset Date Comments Appointment Related 02/26/2017 Encounter Details Date Type Department Care Team (Late st Contact Info) Description 02/26/2017 Telephone [facility] - [facility] [address] [place] [address] Latisha Draper, STACEY Appointment Related Social History Tobacco Use Types [...] Telephone Encounter - Latisha Draper, RN - 02/26/2017 1304 EDT TC from Gladys stating that she will be transferring her OB care here since she has moved back [facility] [place]. She is having her last visit at [facility] today and will have all records transferred. Wants to coordinate AURELIA appointment with 20 week ultrasound. Currently in her car and advised to call back in next couple of days to schedule. documented in this encounter Plan of Treatment [...] on filedocumented in this encounter Care Teams Dialysis Tech Relationship Specialty Start Date End Date Abdoulaye Gonzalez PCP - General 12/22/15 04/05/18 documented as of this encounter
--- OUTSIDE RECORDS SUMMARY | 2024-04-14 20:40 | XMS_ITS | Encounter Summary ---
Author Organization [facility] Address [address] [place] [address] Care Team Providers Care Pharmacy Assistant Name Role Phone Carlos Abdoulaye Primary Care Provider [phone] Reason for Referral * DYE AND CHEMICAL COORDINATOR (Routine) - Closed Specialty Diagnoses / Procedures Referred By Contac t Referred To Contact Diagnoses Screening, , for malformation by ultrasound Procedures [facility] R[facility] Jenniffer Fuentes MD [address] [place] [address], [facility] [address] [place] [address] Referral ID Status Reason Start Date Expiration Date Visits Re quested Visits Authorized [id number] Closed 02/27/2017 1 1 Encounter Details Date Type Department Care Team (Late st Contact Info) Description 02/27/2017 Orders Only [facility] [place] [address] Latisha Draper RN Screening, , for malformation by ultrasound (Primary Dx) Social History Tobacco Use Types [...] of this encounter Progress Notes * Latisha Draper RN - 02/27/2017 0920 EDT 20 week ultrasound ordered. Bottle Gauger to call Gladys with appointments. Wants to coordinate with AURELIA appointment 03/31 or 04/01. documented in this encounter Plan of Treatment Not on file documented as of this encounter Goals Goal Patient Goal Type Associated Problems Recent Progress Patient-Stated? Author Blood Pressure < 130/80 Blood Pressure 118/78(2017 16:01 EDT) No Rina Agosto MD Weight Loss General Yes Rina Agosto MD Note: Goal = 145lbs documented as of this encounter Procedures Procedure Name Priority Date/Time Associated Diagnosis Comments [facility] ROUT[facility] Routine 04/02/2017 10:27 EDT Screening, , for malformation by ultrasound documented in this encounter Results * [facility] ROUT[facility] (04/02/2017 10:27 EDT) Anatomical Region Laterality Modality Other 04/02/2017 10:2 7 EDT 04/02/2017 11:05 EDT Narrative 04/02/2017 11:05 EDT Indication Screening. History ======= General History Height 163 cm [...] ======= LMP on: ?11/09/2016 GA by LMP ??20 w + 4 d AMA by LMP : ? 08/16/2017 Ultrasound examination on: 04/02/2017 GA by U/S based upon: ??AC, BPD, Femur, HC GA by U/S ??20 w + 5 d AMA by U/S: ?08/15/2017 Method of dating: ??Restore dating from previous exam Previous dating: ?? Dating performed on 12/27/2016 Based on the LMP Assigned GA of previous dating 20 w + 4 d Agreed AMA of previous datin08/16/2017 Assigned: ??Dating performed on 12/27/2016, based on the LMP Assigned GA ?20 w + 4 d Assigned AMA: ??08/16/2017 General Evaluation Cardiac activity: Present. FHR 160 bpm. movements: visualized. Presentation: breech. Placenta: posterior. Umbilical cord: Cord vessels: 3 vessel cord. Cord insertion: placental insertion: normal. Amniotic fluid: Amount of AF: normal. Biometry Biometry BPD ?49.3 mm 64% 20w 6d Hadlock OFD ?65.4 mm 92% 22w 1d Yariel HC 183.5 mm ?55% 20w 5d [place] AC 148.5 mm ?29% 20w 1d Hadlock Femur ??35.2 mm 82% 21w 2d Yariel Cerebellum tr ??22.2 mm 75% 21w 4d Bragg CM 2.9 mm ??2% Nicolaides Nuchal fold ?4.26 mm Humerus ?34.5 mm 87% 21w 5d Yariel EFW ?365 g Calculated by: Hadlock ([id number]-KR-TG-FL) EFW (lb) ?? 0 lb EFW (oz) ?? 13 oz Cephalic index 0.75 ?16% Nicolaides HC / AC ?1.24 ?92% Hadlock FL / BPD ?? 0.71 ?51% Hadlock FL / AC ?0.24 ?90% Hadlock FHR ?160 bpm Head / Face / Neck Assistant Tennis Professional 5.1 mm Anatomy Cranium: ?? normal Lateral ventricles: ?normal Choroid plexus: ?normal Midline falx: ??normal Cavum septi pellucidi: normal Cerebellum: ?normal Cisterna magna: ?normal Lips: ??normal 4-chamber view: ?normal RVOT: ??not adequately visualized LVOT: ??not adequately visualized RVOT: ??Appears normal in suboptimal views LVOT: ??Appears normal in suboptimal views Cord insertion: ?normal Stomach: ?? normal Kidneys: ?? normal Bladder: ?? normal Abdom. wall: ?? normal Cervical spine: ?normal Thoracic spine: ?normal Lumbar spine: ??normal Sacral spine: ??normal Arms: ??normal Legs: ??normal Gender: ?male Gender: ?male Wants to know gender: ??yes Maternal Structures Uterus / Cervix Uterus: ?Appears normal Cervix: ?Appears normal Ovaries / Tubes / Adnexa Rt ovary: ??Visualized, normal appearance Rt ovary D1 ?3.2 cm Rt ovary D2 ?2.1 cm Rt ovary D3 ?2.4 cm Rt ovary mean ??2.5 cm Rt ovary vol ?? 8.2 cm cubed Lt ovary: ??Visualized, normal appearance Lt ovary D1 ?1.8 cm Lt ovary D2 ?1.8 cm Lt ovary D3 ?1.7 cm Lt ovary mean ??1.8 cm Lt ovary vol ?? 2.8 cm cubed Method ======== Voluson E10, Transabdominal ultrasound examination. View: Sufficient. Impression [id number] Obstetrical ultrasound with and maternal evaluation This is a milan gestation. Biometry is consistent with menstrual dating. Anatomy appears normal as noted above; however, ultrasound cannot detect all anomalies. There is trunk and extremity movement noted. The amniotic fluid volume appears normal. The LVOT and RVOT are not optimally seen. Follow-up Follow-up in 2 weeks for LVOT and RVOT. Comment ========= This follow-up has been scheduled. Procedure Note Mary Palomares MD - 04/02/2017 Indication Screening. History ======= General History Height 163 cm Height (ft) 5 ft Height (in) 4 in Previous Outcomes 2 Para 1 [place] children born (T) 1 [place] children born (P) 0 Abortions (A) 0 [place] living children (L) 1 Maternal Assessment Height 163 cm Height (ft) 5 ft Height (in) 4 in Number of fetuses: 1. Dating ======= LMP on: 11/09/2016 GA by LMP 20 w + 4 d AMA by LMP : 08/16/2017 Ultrasound examination on: 04/02/2017 GA by U/S based upon: AC, BPD, Femur, HC GA by U/S 20 w + 5 d AMA by U/S: 08/15/2017 Method of dating: Restore dating from previous exam Previous dating: Dating performed on 12/27/2016 Based on the LMP Assigned GA of previous dating 20 w + 4 d Agreed AMA of previous datin08/16/2017 Assigned: Dating performed on 12/27/2016, based on the LMP Assigned GA 20 w + 4 d Assigned AMA: 08/16/2017 General Evaluation Cardiac activity: Present. FHR 160 bpm. movements: visualized. Presentation: breech. Placenta: posterior. Umbilical cord: Cord vessels: 3 vessel cord. Cord insertion: placental insertion: normal. Amniotic fluid: Amount of AF: normal. Biometry Biometry BPD 49.3 mm 64% 20w 6d Hadlock OFD 65.4 mm 92% 22w 1d Yariel HC 183.5 mm 55% 20w 5d [place] AC 148.5 mm 29% 20w 1d Hadlock Femur 35.2 mm 82% 21w 2d Yariel Cerebellum tr 22.2 mm 75% 21w 4d Bragg CM 2.9 mm 2% Nicolaides Nuchal fold 4.26 mm Humerus 34.5 mm 87% 21w 5d Yariel EFW 365 g Calculated by: Hadlock (CPU-OR-FZ-FL) EFW (lb) 0 lb EFW (oz) 13 oz Cephalic index 0.75 16% Nicolaides HC / AC 1.24 92% Hadlock FL / BPD 0.71 51% Hadlock FL / AC 0.24 90% Hadlock FHR 160 bpm Head / Face / Neck Assistant Tennis Professional 5.1 mm Anatomy Cranium: normal Lateral ventricles: normal Choroid plexus: normal Midline falx: normal Cavum septi pellucidi: normal Cerebellum: normal Cisterna magna: normal Lips: normal 4-chamber view: normal RVOT: not adequately visualized LVOT: not adequately visualized RVOT: Appears normal in suboptimal views LVOT: Appears normal in suboptimal views Cord insertion: normal Stomach: normal Kidneys: normal Bladder: normal Abdom. wall: normal Cervical spine: normal Thoracic spine: normal Lumbar spine: normal Sacral spine: normal Arms: normal Legs: normal Gender: male Gender: male Wants to know gender: yes Maternal Structures Uterus / Cervix Uterus: Appears normal Cervix: Appears normal Ovaries / Tubes / Adnexa Rt ovary: Visualized, normal appearance Rt ovary D1 3.2 cm Rt ovary D2 2.1 cm Rt ovary D3 2.4 cm Rt ovary mean 2.5 cm Rt ovary vol 8.2 cm cubed Lt ovary: Visualized, normal appearance Lt ovary D1 1.8 cm Lt ovary D2 1.8 cm Lt ovary D3 1.7 cm Lt ovary mean 1.8 cm Lt ovary vol 2.8 cm cubed Method ======== Voluson E10, Transabdominal ultrasound examination. View: Sufficient. Impression [id number] Obstetrical ultrasound with and maternal evaluation This is a milan gestation. Biometry is consistent with menstrual dating. Anatomy appears normal as noted above; however, ultrasound cannot detect all anomalies. There is trunk and extremity movement noted. The amniotic fluid volume appears normal. The LVOT and RVOT are not optimally seen. Follow-up Follow-up in 2 weeks for LVOT and RVOT. Comment ========= This follow-up has been scheduled. Jenniffer Fuentes MD [facility] ORDERABLE S documented in this encounter Visit Diagnoses Diagnosis Screening, , for malformation by ultrasound- Primary Encounter for routine screening for malformation using ultrasonics documented in this encounter Discontinued Medications Medication Sig Discontinue Reason Start Date End Da te prochlorperazine (COMPAZINE) 5 mg tablet Take 1 Tab by mouth every 6 hours as needed for Nausea. 02/22/2017 02/27/2017 acetaminophen (TYLENOL) 325 mg tablet Take 2 Tabs by mouth every 6 hours as needed for Pain. 02/22/2017 02/27/2017 PNV NO.95/FERROUS FUM/FOLIC AC ( MULTIVITAMINS ORAL) Take by mouth. Reported on 12/20/2016 02/27/2017 guaiFENesin (ROBITUSSIN) 100 mg/5 mL liquid Take 200 mg by mouth every 4 hours. 02/27/2017 ALBUTEROL INHL Inhale as directed as needed. Reported on 12/20/2016 02/27/2017 documented as of this encounter Care Teams Pharmacy Assistant Relationship Specialty Start Date End Date Abdoulaye Gonzalez PCP - General 12/22/15 04/05/18 documented as of this encounter
--- OUTSIDE RECORDS SUMMARY | 2024-04-14 20:40 | XMS_ITS | Encounter Summary ---
Author Organization [facility] Address [address] [place] [address] Care Team Providers Care Histologist Name Role Phone Mguzma Abdoulaye Primary Care Provider [phone] Reason for Visit * Reason Onset Date Comments Pelvic Pain 03/25/2017 particularly on left side, sharp, 8 / 10 Leaking amniotic fluid 03/25/2017 ? clear, thin, watery fluid x 3 days Encounter Details Date Type Department Care Team (Late st Contact Info) Description 03/25/2017 Telephone [facility] [address] [place] [address] Emani Sanchez RN Pelvic Pain (particularly on left side, sharp, 8 / 10 ); Leaking amniotic fluid (? clear, thin, watery fluid x 3 days) Social History Tobacco Use Types Packs/Day Years [...] encounter Miscellaneous Notes * Telephone Encounter - Emani Sanchez RN - 03/25/2017 0913 EDT TC from [place] with complaints of sharp pain in her lower pelvis, particularly on the left side. She notes this started about 3 days ago and has not worsened, nor has it improved. She states it's sharp in nature and 8 out of 10 on pain scale. Worse with movement/changing positions. She has been taking Tylenol but this has not helped. Gladys states it feels as if she's pulled a muscle in her pelvis. Discussed round ligament pain as common discomfort of at this GA. Encouraged Tylenol PRN, position changes PRN, PO hydration, abdominal band for support. Gladys also complaining of thin, clear, watery fluid x 3 days. She notes she had normal vaginal discharge that was creamy and white, but around the time her pelvis pain started, she passed globs ofgreen mucousy discharge, and since then has been leaking watery fluid. She denies any odor to the fluid, and it's enough where she needs to wear a pad to protect her underwear. Occasionally, she'll no lydia small gushes of fluid which are not related to laughing, coughing, etc. Gladys states she will notice leaking even when sitting down to rest. She denies vaginal bleeding, occasionally feels abdominal tightening. She is feeling a LOT of movement. Page to on-call Jasmyne PETIT who advised patient be evaluated on L&D to r/o PPROM. Gladys aware and comfortable with plan. CNM to notify lockstitch front edge tape sewer to expect patient. documented in this encounter Plan of Treatment [...] on filedocumented in this encounter Care Teams Histologist Relationship Specialty Start Date End Date Abdoulaye Gonzalez PCP - General 12/22/15 04/05/18 documented as of this encounter
--- OUTSIDE RECORDS SUMMARY | 2024-04-14 20:40 | XMS_ITS | Encounter Summary ---
Author Organization [facility] Address [address] [place] [address] Care Team Providers Care Clinical Trial Data Manager Name Role Phone Abdoulaye Gonzalez Primary Care Provider [phone] Encounter Details Date Type Department Care Team (Late st Contact Info) Description 03/20/2017 Phlebotomy Only [facility] [address] [place] [address] Structural Steel Detailer, Outpatient Social History Tobacco Use Types Packs/Day [...] on filedocumented in this encounter Care Teams Clinical Trial Data Manager Relationship Specialty Start Date End Date Abdoulaye Gonzalez PCP - General 12/22/15 04/05/18 documented as of this encounter
--- OUTSIDE RECORDS SUMMARY | 2024-04-14 20:40 | XMS_ITS | Encounter Summary ---
Author Organization [facility] Address [address] [place] [address] Care Team Providers Care Science Specialist Name Role Phone Abdoulaye Gonzalez Primary Care Provider [phone] Reason for Visit * Reason Onset Date Comments Quarantine Officer Message 12/22/2016 Encounter Details Date Type Department Care Team (Late st Contact Info) Description 12/22/2016 Telephone [facility] - [place] [address] [place] [address] Meagan Sandhu MD [address] [place] [phone] Quarantine Officer Message Social History Tobacco Use Types Packs/Day Years [...] encounter Miscellaneous Notes * Telephone Encounter - Meagan Sandhu MD - 12/22/2016 2222 EDT See on Friday. Diagnosed with strep. Put on PCN. Today throat is really bad. can you take a look at it? Feels like it is closing off, my tonsils are so swollen. I think I am getting another abscess? Told to go to ER for evaluation. documented in this encounter Plan of Treatment [...] on filedocumented in this encounter Care Teams Science Specialist Relationship Specialty Start Date End Date Abdoulaye Gonzalez PCP - General 12/22/15 04/05/18 documented as of this encounter
--- OUTSIDE RECORDS SUMMARY | 2024-04-14 20:41 | XMS_ITS | Encounter Summary ---
Author Organization [facility] Address [address] [place] [address] Care Team Providers Care Circle Edger Name Role Phone Abdoulaye Gonzalez Primary Care Provider [phone] Reason for Visit * Reason Onset Date Comments Results 06/11/2016 labs Encounter Details Date Type Department Care Team (Late st Contact Info) Description 06/11/2016 Telephone [facility] Adult Primary Care - [address] [phone] Abdoulaye Gonzalez [address] [place] [phone] Results (labs) Social History Tobacco Use Types Packs/Day Years Used Date Smoking Tobacco: Former Cigarettes 0.3 10 0 01/02/2004 - 01/01/2014 Smokeless Tobacco: Never Alcohol Use Standard Drinks/Week Comments Yes 0 (1 standard drink = 0.6 oz [...] visiting a doctor's office or shopping? No 04/29/2016 Cognitive Status Response Date of Assessm ent Because of a physical, menta l, or emotional condition, does this person have serious difficulty concentrating, remembering, or making decisions? No 04/29/2016 documented as of this encounter Miscellaneous Notes * Telephone Encounter - Diana Hawkins, RN - 06/12/2016 1323 EDT See other open encounter opened today will close this one for now * Telephone Encounter - Gladys Solomon RN - 06/11/2016 1214 EDT [facility] * Telephone Encounter - Johana Cody - 06/11/2016 1141 EDT Reason for Call: Results (labs) Summary/Symptoms: Asking to discuss lab results from ER visit on 06.07.2016 Onset and Duration? na Appointment Offered? consuelo Cody 06/11/2016 11:41 documented in this encounter Plan of Treatment [...] on filedocumented in this encounter Care Teams Circle Edger Relationship Specialty Start Date End Date MgAlverto gusmantin PCP - General 12/22/15 04/05/18 documented as of this encounter
--- OUTSIDE RECORDS SUMMARY | 2024-04-14 20:41 | XMS_ITS | Encounter Summary ---
Author Organization [facility] Address [address] [place] [address] Care Team Providers Care Sql Tech Name Role Phone MgAbdoulaye gusman Primary Care Provider [phone] Encounter Details Date Type Department Care Team (Late st Contact Info) Description 06/18/2016 Phlebotomy Only [facility] - [address] [address] Broom Handle Dipper, Outpatient Missed period (Primary Dx) Social History Tobacco Use Types [...] No 04/29/2016 documented as of this encounter Plan of [...] Procedure Name Priority Date/Time Associated Diagnosis Comments QUANT BETA HCG, Routine 06/18/2016 12:22 EST Missed period documented in this encounter Results * HCG FOR (06/18/2016 12:22 EST) Quant Beta HCG, Preg <5 <5 mIU/ml 06/18/2016 13:31 EST [facility] Comment: Reference Range: Negative = <5 Indeterminate = 5-25 recommend repeat in 48 hours. Positive = >25 Blood specimen (specimen) BLOOD SPECIMEN / Unknown 06/18/2016 12:22 EST 06/18/2016 12:37 EST Iman Cartagena [facility] CHEMISTRY & BLOOD GA S ORDERABLES [facility] [address] [place] [address] documented in this encounter Visit Diagnoses Diagnosis Missed period- Primary Irregular menstrual cycle documented in this encounter Care Teams Sql Tech Relationship Specialty Start Date End Date Abdoulaye Gonzalez PCP - General 12/22/15 04/05/18 documented as of this encounter
--- OUTSIDE RECORDS SUMMARY | 2024-04-14 20:41 | XMS_ITS | Encounter Summary ---
Author Organization [facility] Address [address] [place] [address] Care Team Providers Care Sand Filler Name Role Phone Abdoulaye Gonzalez Primary Care Provider [phone] Encounter Details Date Type Department Care Team (Late st Contact Info) Description 07/16/2016 Results Only [facility] [phone] Blossom Pelletier CNM [address] [facility] [address] [place] [address] Social History Tobacco Use Types Packs/Day Years [...] Diagnosis Comments PAP TEST- RESULT ONLY Routine 07/16/2016 0:00 EST documented in this encounter Results * PAP TEST- RESULT ONLY (07/16/2016 0:00 EST) Pathology Report: CYTOPATHOLOGY REPORT Reports generated via electronic interface contain original data; however they are lacking the format of the original report. Caution should be taken when reading/interpreti ng unformatted reports. Name: ? GLADYS RENO ? Accession #: ? [id number] : ? 1990 (Age: 26) ??F ?Collect Date: ? 07/16/2016 Location: ? [facility] ? Receive Date: ? 07/17/2016 Provider: ?BLOSSOM YANG Copy to: ? Specimen/Source: ?Pap Test, Cervix, ThinPrep Imaging System with manual evaluation Last Menstrual Period: ? Hormonal/Contracep tive Status: ? None Previous Gynecologic Pathology: ? LSIL: 2011 ? SPECIMEN ADEQUACY ? Satisfactory for Evaluation - transformation zone component present GENERAL CATEGORIZATION ? Negative for Intraepithelial Lesion or Malignancy ? Document reviewed and electronically signed by: ? GREGOR Alcantara(ASCP) ? Report Date: ??07/19/2016 15:37 End of Report [facility] 07/16/2016 07/17/2016 Blossom Pelletier [facility] PATHOLOGY ORDERABLES [facility] [address] [place] [address] documented in this encounter Visit Diagnoses Not on filedocumented in this encounter Care Teams Sand Filler Relationship Specialty Start Date End Date Abdoulaye Gonzalez PCP - General 12/22/15 04/05/18 documented as of this encounter
--- OUTSIDE RECORDS SUMMARY | 2024-04-14 20:41 | XMS_ITS | Encounter Summary ---
Author Organization [facility] Address [address] [place] [address] Care Team Providers Care Landscape Manager Name Role Phone Abdoulaye Gonzalez Primary Care Provider [phone] Encounter Details Date Type Department Care Team (Late st Contact Info) Description 12/03/2016 Phlebotomy Only [facility] [address] [place] [address] Fur Examiner, Outpatient Positive test (Primary Dx) Social History Tobacco Use Types [...] as of this encounter Visit Diagnoses Diagnosis Positive test- Primary examination or test, positive result documented in this encounter Care Teams Landscape Manager Relationship Specialty Start Date End Date Abdoulaye Gonzalez PCP - General 12/22/15 04/05/18 documented as of this encounter
--- OUTSIDE RECORDS SUMMARY | 2024-04-14 20:41 | XMS_ITS | Encounter Summary ---
Author Organization [facility] Address [address] [place] [address] Care Team Providers Care Chair Spring Assembler Name Role Phone MgAbdoulaye gusman Primary Care Provider [phone] Reason for Visit * Reason Onset Date Comments Medication Management 12/06/2016 Encounter Details Date Type Department Care Team (Late st Contact Info) Description 12/06/2016 Telephone [facility] Dermatology 3rd [facility] [address] [place], [place] [id number] Sujatha Craven MD PhD [address] [facility] [place] [address] Medication Management Social History Tobacco [...] Miscellaneous Notes * Telephone Encounter - Hetal Vallejo - 12/06/2016 1459 EDT Left message for patient and advised her it is okay to use Clindamycin while - per Pharmacist Leah. Advised for patient to call back if there are any other questions. Hetal Vallejo 12/06/2016 14:59 * Telephone Encounter - Gisela Solorzano - 12/06/2016 1357 EDT Patient states that she is currently and needs to know if she can continue using clindamycin (CLINDAGEL) 1 % gel. Please call to advise Former Dr. Albert patient documented in this encounter Plan of Treatment [...] on filedocumented in this encounter Care Teams Chair Spring Assembler Relationship Specialty Start Date End Date Abdoulaye Gonzalez PCP - General 12/22/15 04/05/18 documented as of this encounter
--- OUTSIDE RECORDS SUMMARY | 2024-04-14 20:41 | XMS_ITS | Encounter Summary ---
Author Organization [facility] Address [address] [place] [address] Care Team Providers Care Cloth Mender Name Role Phone Abdoulaye Gonzalez Primary Care Provider [phone] Encounter Details Date Type Department Care Team (Late st Contact Info) Description 12/03/2016 Orders Only [facility] Luiz Mauro MD [address] [facility] [address] [place] [id number] Positive test (Primary Dx) Social History Tobacco [...] test, positive result documented in this encounter Orders Lab Orders Without Results Count Last Ordered D ate First Ordered Date HCG FOR 1 12/03/2016 documented in this encounter Care Teams Cloth Mender Relationship Specialty Start Date End Date Abdoulaye Gonzalez PCP - General 12/22/15 04/05/18 documented as of this encounter
--- OUTSIDE RECORDS SUMMARY | 2024-04-14 20:41 | XMS_ITS | Encounter Summary ---
Author Organization [facility] Address [address] [place] [address] Care Team Providers Care Business Management Specialist Name Role Phone Abdoulaye Gonzalez Primary Care Provider [phone] Encounter Details Date Type Department Care Team (Late st Contact Info) Description 06/18/2016 Orders Only [facility] Iman Cartagena CNM [address] [facility] [place] [address] Missed period (Primary Dx) Social History Tobacco [...] documented as of this encounter Results * HCG FOR (06/18/2016 12:22 EST) Quant Beta HCG, Preg <5 <5 mIU/ml 06/18/2016 13:31 EST [facility] Comment: Reference Range: Negative = <5 Indeterminate = 5-25 recommend repeat in 48 hours. Positive = >25 Blood specimen (specimen) BLOOD SPECIMEN / Unknown 06/18/2016 12:22 EST 06/18/2016 12:37 EST Iman Osiel [facility] CHEMISTRY & BLOOD GA S ORDERABLES [facility] [address] [place] [address] documented in this encounter Visit Diagnoses Diagnosis Missed period- Primary Irregular menstrual cycle documented in this encounter Care Teams Business Management Specialist Relationship Specialty Start Date End Date Abdoulaye Gonzalez PCP - General 12/22/15 04/05/18 documented as of this encounter
--- OUTSIDE RECORDS SUMMARY | 2024-04-14 20:41 | XMS_ITS | Encounter Summary ---
Author Organization [facility] Address [address] [place] [address] Care Team Providers Care Spinner Continuous Name Role Phone Abdoulaye Gonzalez Primary Care Provider [phone] Reason for Visit * Reason Comments Chest Pain Pt states it started last pm, +nausea and palpitations. Encounter Details Date Type Department Care Team (Late st Contact Info) Description 06/07/2016 14:29 EDT - 06/07/2016 16:50 EDT Emergency [facility] Emergency Department - [address] [place] [address] [place] [address] Alek Camejo MD [address] [place], [place] [id number] Emergency, MD Jay Acute pericarditis, unspecified type (Primary Dx); Non-intractable vomiting with nausea, unspecified vomiting type; Dehydration Discharge Disposition: Home or Self Care Social [...] Sign Reading Time Taken Comments Blood Pressure 112/71 06/07/2016 1649 EDT Pulse 97 06/07/2016 1437 EDT Temperature 36.8 ??C (98.2 ??F) 06/07/2016 1437 EDT Respiratory Rate 18 06/07/2016 1437 EDT Oxygen Saturation 100% 06/07/2016 1649 EDT Inhaled Oxygen Concentration - - Weight 86.2 kg (190 lb) 06/07/2016 1437 EDT Height 162.6 cm (5' 4) 06/07/2016 1437 EDT Body Mass Index 32.61 06/07/2016 1437 EDT documented in this encounter Functional Status [...] No 04/29/2016 documented as of this encounter Discharge Diagnoses Diagnosis I30.9 Acute pericarditis, unspecified-I30.9[ICD-10-CM] R11.2 Nausea with vomiting, unspecified-R11.2[ICD-10-CM] E86.0 DEHYDRATION[ICD-10-CM] J45.909 Unspecified asthma, uncomplicated-J45.909[ICD-10-CM] Z87.891 Personal history of nicotine dependence-Z87.891[ICD-10-CM] Z91.040 Latex allergy status-Z91.040[ICD-10-CM] documented in this encounter Discharge Instructions * Discharge Instructions* Alek Camejo MD - 06/07/2016 16:31 EDT Return for worsened symptoms or inability to keep down fluids. * Attachments The following attachments cannot be sent through Care Everywhere. * PERICARDITIS ([place]) * NAUSEA AND VOMITING ([place]) documented in this encounter Medications at Time of Discharge Medication Sig Dispensed Refills Start Date End Date acetaminophen (TYLENOL) 325 mg tablet Take 325 mg by mouth every 6 hours. Reported on 12/20/2016 02/22/2017 ALBUTEROL INHL Inhale as directed as needed. Reported on 12/20/2016 02/27/2017 azithromycin (ZITHROMAX) 250 mg tablet Take 2 tablets (500 mg) on Day 1, followed by 1 tablet (250 mg) once daily on Days 2 through 5. 6 Tab 05/01/2016 11/04/2016 FLUTICASONE PROPIONATE (FLOVENT HFA INHALATION) Inhale as directed. Reported on 11/04/2016 11/05/2016 ibuprofen (MOTRIN) 600 mg tablet Take 1 Tab by mouth 3 times daily for 10 days. 30 Tab 06/07/2016 06/17/2016 montelukast (SINGULAIR) 10 mg tablet Take 1 Tab by mouth at bedtime 90 Tab 2 03/09/2015 11/05/2016 ondansetron (ZOFRAN-ODT) 4 mg disintegrating tablet Take 1 Tab by mouth every 8 hours as needed for Nausea. 10 Tab 06/07/2016 11/05/2016 propRANolol (INDERAL) 10 mg tabletIndications:migraine prevention Take 2 Tabs by mouth daily. 60 Tab 06/07/2016 11/05/2016 rizatriptan (MAXALT) 5 mg tablet Take 1 tab at first sign of migraine. Take second dose if headache not better within 2 hours. 6 Tab 3 03/18/2016 11/05/2016 spironolactone (ALDACTONE) 25 mg tablet Take 50 mg by mouth 2 times daily. 07/26/2016 sumatriptan (IMITREX) 50 mg tablet Take 1 Tab by mouth once as needed for up to 1 dose for Migraine. May repeat 1 in two hours if needed do not exceed more than 5 per month 9 Tab 11 03/19/2016 09/10/2017 documented as of this encounter Ordered Prescriptions Prescription Sig Dispensed Refills Start Date End Da te ibuprofen (MOTRIN) 600 mg tablet Take 1 Tab by mouth 3 times daily for 10 days. 30 Tab 06/07/2016 06/17/2016 ondansetron (ZOFRAN-ODT) 4 mg disintegrating tablet Take 1 Tab by mouth every 8 hours as needed for Nausea. 10 Tab 06/07/2016 11/05/2016 documented in this encounter Discharge Disposition Disposition Code Departure Means Destination Home or Self Care documented in this encounter ED Notes * Ricardo Ngo - 06/07/2016 1458 EDT 12 Lead EKG Performed by Ricardo Ngo and shown to Alek Camejo MD. * Alek Camejo MD - 06/07/2016 1452 EDT DOS: 06/07/2016 Chief Complaint Patient presents with ??? Chest Pain Pt states it started last pm, +nausea and palpitations. HPI HPI Comments: I, Ivonne Madrid, am scribing for Alek Camejo MD while he/she is personally performing the service. Ivonne Madrid 06/07/2016 14:52 Gladys Reno is a 26 y.o. female with a history of anxiety and depression who presents to the ED with complaints of 24 hours of nausea and fatigue, with new onset chest pain around 1800 last night. Pt reports that squeezing in her central chest, radiating to the back and constant since its onset. Her nausea progressed throughout the night and she has had 5-6 episodes of vomiting over the past hour or so. Endorses associated SOB, dizziness, lightheadedness, and palpitations. She states that she has been trying to get with her over the past 7 months so there is a possibility she is now, LNMP was the first week of this month. Denies abdominal pain, diarrhea, fevers, chills. Denies history of HTN, HLD, DM. Pt states she is unsure of exactly her family history of coronary disease, though denies any heart attacks in her immediate family. ??Denies history of clotting, recent immobilization, leg pain/swelling. Social history: Former cigarette smoker, quit in 2013. The history is provided by the patient, medical records and the spouse. Review of Systems Review of Systems Constitutional: Positive for fatigue. Negative for activity change, chills and fever. HENT: Negative for congestion and rhinorrhea. Eyes: Negative for visual disturbance. Respiratory: Positive for shortness of breath. Cardiovascular: Positive for chest pain and palpitations. Negative for leg swelling. Gastrointestinal: Positive for nausea and vomiting. Negative for abdominal pain and diarrhea. Genitourinary: Negative for menstrual problem. Musculoskeletal: Negative for gait problem. Skin: Negative for pallor. Neurological: Positive for dizziness and light-headedness. Psychiatric/Behavioral: Negative for confusion. All other systems reviewed and are negative. The patient's past medical, family and social history was reviewed and updated as needed. Allergies Allergen Reactions ??? Adhesive Rash ??? Latex, Natural Rubber Rash ??? Morphine Nausea And Vomiting Morphine caused patient to feel very aggressive ??? Tramadol Nausea Only Dizziness Vital Signs Temp: 36.8 ??C (98.2 ??F) Temp src: Temporal Pulse: 97 Resp: 18 SpO2: 100 % BP: 129/84 O2 Device: None (Room air) Physical Exam Constitutional: She is oriented to person, place, and time. She appears well- developed and well-nourished. HENT: Head: Normocephalic and atraumatic. Eyes: Conjunctivae and EOM are normal. Pupils are equal, round, and reactive to light. Right eye exhibits no discharge. Left eye exhibits no discharge. Neck: Normal range of motion. Neck supple. No tracheal deviation present. Cardiovascular: Normal rate, regular rhythm, normal heart sounds and intact distal pulses. No murmur heard. Pulmonary/Chest: Effort normal and breath sounds normal. No respiratory distress. Abdominal: Soft. Bowel sounds are normal. She exhibits no distension. There is no tenderness. Musculoskeletal: Normal range of motion. She exhibits no edema. No warmth, cords, erythema. Normal pulses distally. No asymmetric edema. Neurological: She is alert and oriented to person, place, and time. Skin: Skin is warm and dry. No rash noted. Psychiatric: She has a normal mood and affect. Nursing note and vitals reviewed. RESULTS EKG orders: EKG 12-LEAD EKG obtained at 1452, shows sinus rhythm, normal axis, normal interval, diffuse J-point type elevation and a 1mm of TN depression. The patient had an EKG which was independently reviewed and interpreted by me. ED Lab Results Labs Reviewed POCT URINE DIPSTICK - Abnormal Result Value Status Ketones Trace (*) Final Color YELLOW Final Clarity, UA Clear Final Glucose Neg Final Bilirubin Neg Final Specific [place] >=1.030 Final Blood Neg Final pH 5.5 Final Protein Neg Final Urobilinogen 0.2 Final Nitrite Neg Final Leuk Esterase Neg Final Tech ID [id number] Final POCT TEST, CLINITEK UPT Result Neg Final Tech ID [id number] Final Patient had labs that were reviewed independently by myself, significant for urine negative for infection. Negative UPT. Relevant Data Procedures ED COURSE A medical screening exam was performed. On my evaluation, patient appeared well and had no focal findings. EKG obtained which was suggestive of pericarditis, with J-point type elevation and a 1mm of TN depression. Will treat with IV ketorolac for pain management, IV Zofran for nausea and hydrate with 1L Bolus NS. 1625: Pt re-evaluation. Pt reports feeling improved after a liter of fluids and Zofran with no morenausea, vomiting or lightheadedness. CP has resolved. Patient's findings are most consistent with pericarditis. Will discharge home with a trial of NSAIDs and zofran PRN for nausea. Will f/u with PCP in one week if not improved. ASSESSMENT AND PLAN Final diagnoses: Acute pericarditis, unspecified type Non-intractable vomiting with nausea, unspecified vomiting type Dehydration Prior to discharge my usual and customary return precautions were reviewed with the patient and/or family. This included follow-up instructions and reasons to return to the Emergency Department if condition worsens, does not improve as expected, or other new concerns arise. ED Current Prescriptions Medication Dispense Auth. Provider ondansetron (ZOFRAN-ODT) 4 mg disintegrating tablet 10 Tab Alek Camejo MD ibuprofen (MOTRIN) 600 mg tablet 30 Tab Alek Camejo MD DISPOSITION: Discharged The patient's pain was managed to an adequate level weighing risk vs. benefit of further medications. Upon departure from the Emergency Department, the patient's pain was 0 on a zero to ten scale. Condition at departure from the Emergency Department: Improved PCP: Abdoulaye MIRANDA Number of Diagnoses or Management Options Acute pericarditis, unspecified type: new, needed workup Dehydration: new, needed workup Non-intractable vomiting with nausea, unspecified vomiting type: new, needed workup Amount and/or Complexity of Data Reviewed Clinical lab tests: ordered and reviewed Tests in the medicine section of CPT??: ordered and reviewed Review and summarize past medical records: yes Independent visualization of images, tracings, or specimens: yes Patient Progress Patient progress: improved This documentation is recorded by Ivonne Madrid acting as Scribe under the direction and presence of Alek Camejo MD. Alek Camejo MD: I personally performed the services recorded by the scribe in my presence. I confirm the scribe's documentation has been reviewed by me to accurately and completely record my work, treatment, procedures, and medical decision making. 06/07/2016 16:42 No flowsheet data found. * Guy Longo - 06/07/2016 1429 EDT TCALL: Gladys Reno. 89. Fatigue with Chest Pain and Weakness since last night. JPK documented in this encounter Plan of Treatment [...] Associated Diagnosis Comments ECG REPORT - SCANNED 06/20/2016 12:18 EST POCT TEST, CLINITEK STAT 06/07/2016 16:24 EDT POCT URINE DIPSTICK, CLINITEK STAT 06/07/2016 16:16 EDT EKG 12-LEAD STAT 06/07/2016 14:52 EDT documented in this encounter Results * ECG REPORT - SCANNED (06/20/2016 12:18 EST) 06/20/2016 12:1 8 EST Scan 2 [employer] Ax Solution Architect PROCEDURE/MINOR JANUARY GICAL ORDERABLES * POCT TEST, CLINITEK (06/07/2016 16:24 EDT) UPT Result Neg Neg 06/07/2016 16:24 T [facility] body engineer ID [id number] 06/07/2016 16:24 EDT [facility] Comment:Test performed at Em ergency Department Urine specimen (specimen) URINE / Unknown 06/07/2016 16:24 EDT 06/07/2016 16:25 EDT Alek Camejo MD POINT OF CARE TEST O RDERABLES [facility] [address] [place] [address] * (ABNORMAL) POCT URINE DIPSTICK (06/07/2016 16:16 EDT) Color YELLOW 06/07/2016 16:21 T [facility] Clarity, UA Clear 06/07/2016 16:21 [facility] Glucose Neg Neg 06/07/2016 16:21 [facility] Bilirubin Neg Neg 06/07/2016 16:21 [facility] Ketones Trace(A) Neg 06/07/2016 16:21 [facility] Specific [place] >=1.030 1.001 - 1.035 06/07/2016 16:21 [facility] Blood Neg Neg 06/07/2016 16:21 [facility] pH 5.5 4.6 - 8.0 06/07/2016 16:21 [facility] Protein Neg Neg 06/07/2016 16:21 [facility] Urobilinogen 0.2 0.2 - 1.0 E.U./dl 06/07/2016 16:21 [facility] Nitrite Neg Neg 06/07/2016 16:21 [facility] Leuk Esterase Neg Neg 06/07/2016 16:21 [facility] body engineer ID [id number] 06/07/2016 16:21 EDT [facility] Comment:Test performed at Em ergency Department Urine specimen (specimen) URINE / Unknown 06/07/2016 16:16 EDT 06/07/2016 16:21 EDT Alek Camejo MD POINT OF CARE TEST O RDERABLES [facility] [address] [place] [address] * EKG 12-LEAD (06/07/2016 14:52 EDT) 06/07/2016 14:5 2 EDT Narrative [facility] - 06/19/2016 11:03 EST ?[facility] Emergency ? Test Date: ?2016-06-07 Pat Name: ? GLADYS RENO ?Department: ?? ED ? Room: ? [facility] G Gender: ? F ?Heel Gouger: ?? [id number] : ?1990 ? Requested By: CRISTEL Mendoza Number: [id number] ? Reading : ?? DUNG JOHNSTON SA, MD ? Measurements Intervals ?[place] ? Rate: ? 86 ? P: ?57 TN: ? 157 ?QRS: ?72 QRSD: ? 102 ?T: ?59 QT: ? 335 ? QTc: ?403 ? Interpretive Statements SINUS RHYTHM WITH SINUS ARRHYTHMIA No previous ECG available for comparison This is a preliminary report. ??Edited by LIZETTE SAWYER MD on 06-10-16 16:06:44 EDT. I have reviewed the study and I concur with findings above. I reviewed the tracing and have either agreed or edited the findings in this report. Electronically Signed On 06-19-16 11:03:47 EST by DUNG JOHNSTON SA, MD. Procedure Note Dung Velasco Sa, MD - 06/19/2016 [facility] Emergency Test Date: 2016-06-07 Pat Name: GLADYS RENO Department: ED [facility] Gender: F Heel Gouger: [id number] : 1990 Requested By: CRISTEL LORENZ Order Number: [id number] Reading MD: DUNG JOHNSTON SAMFloridalma Measurements Intervals [place] Rate: 86 P: 57 TN: 157 QRS: 72 QRSD: 102 T: 59 QT: 335 QTc: 403 Interpretive Statements SINUS RHYTHM WITH SINUS ARRHYTHMIA No previous ECG available for comparison This is a preliminary report. Edited by LIZETTE SAWYER MD on 06-10-16 16:06:44 EDT. I have reviewed the study and I concur with findings above. I reviewed the tracing and have either agreed or edited the findings inthis report. Electronically Signed On 06-19-16 11:03:47 EST by DUNG LOZADA MD. Alek Camejo MD CARDIAC ECG ORDERABL ES [facility] documented in this encounter Visit Diagnoses Diagnosis Acute pericarditis, unspecified type- Primary Non-intractable vomiting with nausea, unspecified vomiting type Dehydration documented in this encounter Administered Medications Inactive Administered Medications - up to 3 most recent administrations Medication Order MAR Action Action Date Dose Rate Site ketOROLAC (TORADOL) injection 15 mg 15 mg, intravenous, NOW X1, 1 dose, On Fri06/07/16 at 1500, STAT Given 06/07/2016 15:43 EDT 15 mg ondansetron (PF) (ZOFRAN) injection 4 mg 4 mg, intravenous, NOW X1, 1 dose, On Fri06/07/16 at 1500, STAT Given 06/07/2016 15:43 EDT 4 mg sodium chloride 0.9 % BOLUS 1,000 mL 1,000 mL, intravenous, NOW X1, 1 dose, On Fri06/07/16 at 1500, STAT New Bag 06/07/2016 15:09 EDT 1,000 mL documented in this encounter Discontinued Medications Medication Sig Discontinue Reason Start Date End Da te ibuprofen (MOTRIN) 800 mg tablet Take 600 mg by mouth 3 times daily. 06/07/2016 documented as of this encounter Active and Recently Administered Medications Times are shown in EDT. Scheduled Medication Order 06/05/2016 06/06/2016 06/07/2016 ketOROLAC (TORADOL) injection 15 mg (COMPLETED) 15 mg, intravenous, NOW X1, 1 dose, On Fri06/07/16 at 1500, STAT 1543 (Given - Provid er: Sole Parikh RN) ondansetron (PF) (ZOFRAN) injection 4 mg (COMPLETED) 4 mg, intravenous, NOW X1, 1 dose, On Fri06/07/16 at 1500, STAT 1543 (Given - Provid er: Sole Parikh RN) sodium chloride 0.9 % BOLUS 1,000 mL (COMPLETED) 1,000 mL, intravenous, NOW X1, 1 dose, On Fri06/07/16 at 1500, STAT 1509 (New Bag - Prov ider: Ricardo Ngo) documented in this encounter Orders Nursing Count Last Ordered Date First Orde red Date INSERT PERIPHERAL IV 1 06/07/2016 documented in this encounter Care Teams Spinner Continuous Relationship Specialty Start Date End Date Abdoulaye Gonzalez PCP - General 12/22/15 04/05/18 documented as of this encounter
--- OUTSIDE RECORDS SUMMARY | 2024-04-14 20:41 | XMS_ITS | Encounter Summary ---
Author Organization [facility] Address [address] [place] [address] Care Team Providers Care Recovery Unit Operator Name Role Phone Abdoulaye Gonzalez Primary Care Provider [phone] Reason for Visit * Reason Onset Date Comments Medications Refill 09/30/2016 Encounter Details Date Type Department Care Team (Late st Contact Info) Description 09/30/2016 Refill [facility] Adult Primary Care - [address] [phone] Abdoulaye Gonzalez [address] [place] [id number] Medications Refill Social History Tobacco Use Types [...] Refills Start Date End Da te clindamycin (CLINDAGEL) 1 % gel Apply 1 application topically to affected area 2 times daily. Apply to skin twice daily. 30 g 5 09/30/2016 02/22/2017 documented in this encounter Miscellaneous Notes * Telephone Encounter - Diana Hawkins RN - 09/30/2016 1522 ESTFrom: Gladys Lopez To: Abdoulaye Gonzalez NP Sent: 09/30/2016 14:26 EST Subject: Medication Renewal Request Original authorizing provider: PARIS Taylor would like a refill of the following medications: clindamycin (CLINDAGEL) 1 % gel [Abdoulaye Gonzalez NP] Preferred pharmacy: [id number] Comment: [email or web address] never recieved prescription. Need refill, I'm out of medication. Thanks documented in this encounter Plan of Treatment [...] Reason Start Date End Da te clindamycin (CLINDAGEL) 1 % gel Apply 1 application topically to affected area 2 times daily. Apply to skin twice daily. Reorder 09/17/2016 09/30/2016 documented as of this encounter Care Teams Recovery Unit Operator Relationship Specialty Start Date End Date Abdoulaye Gonzalez PCP - General 12/22/15 04/05/18 documented as of this encounter
--- OUTSIDE RECORDS SUMMARY | 2024-04-14 20:41 | XMS_ITS | Encounter Summary ---
Author Organization [facility] Address [address] [place] [address] Care Team Providers Care Stave Machine Tender Name Role Phone MgAbdoulaye gusman Primary Care Provider [phone] Reason for Visit * Reason Onset Date Comments Appointment Related 07/02/2016 Encounter Details Date Type Department Care Team (Late st Contact Info) Description 07/02/2016 Telephone [facility] Cardiology - [place] [address] [place] [address] Cardiology, [facility] Appointment Related Social History Tobacco Use Types [...] encounter Miscellaneous Notes * Telephone Encounter - Katia Asencio - 07/02/2016 1158 EST Pt accepted this appt. * Telephone Encounter - Katia Asencio - 07/02/2016 1104 EST We have a referral for this pt to be seen for the following: Dyspnea on exertion; recent pericarditis episode; pt planning on getting , would like cardiology evaluation. Pt's doctor also ordered an ETT, but pt wants to see a infusion pharmacist first. Where can we put her? documented in this encounter Plan of Treatment [...] on filedocumented in this encounter Care Teams Stave Machine Tender Relationship Specialty Start Date End Date Abdoulaye Gonzalez PCP - General 12/22/15 04/05/18 documented as of this encounter
--- OUTSIDE RECORDS SUMMARY | 2024-04-14 20:41 | XMS_ITS | Encounter Summary ---
Author Organization [facility] Address [address] [place] [address] Care Team Providers Care Crate Opener Name Role Phone Abdoulaye Gonzalez Primary Care Provider [phone] Reason for Visit * Reason Onset Date Comments No Show 04/10/2016 no show appointm ent Encounter Details Date Type Department Care Team (Late st Contact Info) Description 04/10/[address] [facility] Adult Primary Care - [address] [phone] Abdoulaye Gonzalez [address] [place] [phone] No Show (no show appointment) Social History Tobacco Use Types Packs/Day Years [...] visiting a doctor's office or shopping? No 12/26/2015 Cognitive Status Response Date of Assessm ent Because of a physical, menta l, or emotional condition, does this person have serious difficulty concentrating, remembering, or making decisions? No 12/26/2015 documented as of this encounter Miscellaneous Notes * Telephone Encounter - MikeCecelia partidaantonette - 04/10/2016 1000 EDT Reason for Call: No Show (no show appointment) Summary/Symptoms: Canceled pt no show appointment. Pt has no insurance coverage at this time. Abdoulaye Gonzalez is aware of pts situation. Onset and Duration? n/a Appointment Offered? No Amanda Mckeon 04/10/2016 10:00 documented in this encounter Plan of Treatment [...] on filedocumented in this encounter Care Teams Crate Opener Relationship Specialty Start Date End Date MgAbdoulaye gusman PCP - General 12/22/15 04/05/18 documented as of this encounter
--- OUTSIDE RECORDS SUMMARY | 2024-04-14 20:41 | XMS_ITS | Encounter Summary ---
Author Organization [facility] Address [address] [place] [address] Care Team Providers Care French Cord Binder Name Role Phone Abdoulaye Gonzalez Primary Care Provider [phone] Reason for Visit * Reason Comments Abdominal Pain pt states she is abo ut 4 weeks and is having abdominal pain that extends around to her lower back Encounter Details Date Type Department Care Team (Late st Contact Info) Description 12/09/2016 18:55 EDT - 12/09/2016 23:20 EDT Emergency [facility] Emergency Department - [facility] [place] [address] [place], [place] [id number] Tierney Ward PA-C [address] [place] [address] Usama Oneil MD [address] [facility], [address] [place] [address] Emergency, MD Jay Abdominal pain during , first trimester (Primary Dx) Discharge Disposition: Home or [...] Sign Reading Time Taken Comments Blood Pressure 118/74 12/09/2016 2302 EDT Pulse 94 12/09/2016 230 EDT Temperature 36.7 ??C (98.1 ??F) 12/09/2016 1859 EDT Respiratory Rate 18 12/09/2016 2302 EDT Oxygen Saturation 100% 12/09/2016 230 EDT Inhaled Oxygen Concentration - - Weight 90.7 kg (200 lb) 12/09/2016 185 EDT Height 160 cm (5' 3) 12/09/2016 185 EDT Body Mass Index 35.43 12/09/2016 1859 EDT documented in this encounter Functional Status [...] as of this encounter Discharge Diagnoses Diagnosis O26.891 Other specified related conditions, first trimester-O26.891[ICD-10-CM] R10.32 Left lower quadrant pain-R10.32[ICD-10-CM] Z3A.01 Less than 8 weeks gestation of -Z3A.01[ICD-10-CM] Z87.442 Personal history of urinary calculi-Z87.442[ICD-10-CM] J45.909 Unspecified asthma, uncomplicated-J45.909[ICD-10-CM] Z91.040 Latex allergy status-Z91.040[ICD-10-CM] Z88.5 Allergy status to narcotic agent status-Z88.5[ICD-10-CM] Z87.891 Personal history of nicotine dependence-Z87.891[ICD-10-CM] documented in this encounter Discharge Instructions * Discharge Instructions* Tierney Ward PA - 12/09/2016 23:04 EDT Drink plenty of fluids, follow up with her HAND SCRAPER provider for reevaluation. * Attachments The following attachments cannot be sent through Care Everywhere. * : ABDOMINAL PAIN (SAMI) documented in this encounter Medications at Time [...] every 6 hours. Reported on 12/20/2016 02/01/2017 sumatriptan (IMITREX) 50 mg tablet Take 1 [...] documented in this encounter ED Notes * Usama Oneil MD - 12/09/2016 2320 EDT Discussed case with Physician Class A Truck Driver. Briefly, abdominal pain, and back pain with early . US shows early preg in uterus, and nothing in tubes, but this is not definitively exclusive heterotopic, and does not ensure viable . I did not formally interview or examine this patient. Agree with evaluation and management as discussed. Please review PA note for full details of visit. * Mohini Garcia RN - 12/09/2016 2318 EDT Bedside report received by STACEY Lawrence. Patient first observed sitting up in stretcher. Expressingwish to leave. AZRA Maciel in to discharge patient. Observed ambulating to exit with male md pediatric allergist. * Tierney Ward PA - 12/09/2016 1935 EDT Images from the original note were not included. DOS: 12/09/2016 Chief Complaint Patient presents with ??? Abdominal Pain pt states she is about 4 weeks and is having abdominal pain that extends around to her lower back HPI The patient is a 26 y.o. female who presents today with Abdominal Pain (pt states she is about 4 weeks and is having abdominal pain that extends around to her lower back ) Abdominal Pain Associated symptoms: dysuria and nausea Associated symptoms: no chest pain, no fatigue, no fever, no hematuria, no vaginal bleeding, no vaginal discharge and no vomiting Patient is 4 weeks . She has been trying to get and has been on medication for infertility. Patient states she knows she has had ovarian cysts in the past. She has once had an ovarian cyst rupture. Patient started earlier today with bilateral lower back pain, she has had low back pain in the past, slightly worse than prior back pains. Patient states about 4 hours ago she had sudden onset of left lower abdominal pain radiating lower superior pubic and back. Patient does have mild nausea. She was in the past and started with nausea approximately this point in her . Patient denies fevers chills headache bodyaches. She has had dysuria for approximately 4 days she has been increasing her fluids but she has not presented to medical provider since she is concerned about the cost of medicine and does not have insurance. Review of Systems Review of Systems Constitutional: Negative for activity change, appetite change, fatigue and fever. Cardiovascular: Negative for chest pain and leg swelling. Gastrointestinal: Positive for abdominal pain and nausea. Negative for vomiting. Genitourinary: Positive for dysuria and pelvic pain. Negative for flank pain, frequency, hematuria,urgency, vaginal bleeding, vaginal discharge and vaginal pain. Musculoskeletal: Positive for back pain. Negative for gait problem, neck pain and neck stiffness. Skin: Negative for color change and rash. All other systems reviewed and are negative. The patient's past medical, family and social history was reviewed and updated as needed. Allergies Allergen Reactions ??? Adhesive Rash ??? Latex, Natural Rubber Rash ??? Morphine Nausea And Vomiting Morphine caused patient to feel very aggressive ??? Tramadol Nausea Only Dizziness Vital Signs Vitals Reassessment?: Yes Temp: 36.7 ??C (98.1 ??F) Pulse: 94 Heart Rate: 95 BPM Resp: 18 SpO2: 100 % BP: 118/74 BP Device: BP Machine Patient Position: Sitting BP Cuff Location: Right arm O2 Device: None (Room air) Physical Exam Constitutional: She is oriented to person, place, and time. She appears well- developed and well-nourished. No distress. HENT: Head: Normocephalic. Eyes: EOM are normal. Neck: Normal range of motion. Cardiovascular: Normal rate, regular rhythm and normal heart sounds. Exam reveals no friction rub. No murmur heard. Pulmonary/Chest: Effort normal and breath sounds normal. No respiratory distress. She has no wheezes. She has no rales. Abdominal: Soft. Bowel sounds are normal. She exhibits no distension and no mass. There is tenderness in the left lower quadrant. There is no rebound and no guarding. Musculoskeletal: Normal range of motion. Lumbar back: She exhibits tenderness (minimal) and pain. She exhibits normal range of motion, no swelling, no edema and no spasm. Back: Neurological: She is alert and oriented to person, place, and time. Skin: Skin is warm and dry. No rash noted. She is not diaphoretic. Psychiatric: She has a normal mood and affect. Nursing note and vitals reviewed. RESULTS EKG orders: None Radiology orders: RAD US OB LESS THAN 14 WKS TRANSVAGINAL & LMT DOPPLER ED Lab Results Labs Reviewed HEMAGRAM AND DIFFERENTIAL - Abnormal Result Value Status ABS Monocytes 0.88 (*) Final ABS Immature Grans 0.07 (*) Final WBC 9.53 Final RBC 4.34 Final Hemoglobin 12.2 Final HCT 35.6 Final MCV 82 Final MCH 28.1 Final MCHC 34.3 Final RDW-CV 12.8 Final RDW-SD 37.9 Final PLT 232 Final MPV 10.8 Final Neutrophils 64.3 Final Lymphocytes 24.0 Final Monocytes 9.2 Final Eosinophils 1.2 Final Basophils 0.6 Final Immature Grans 0.7 Final ABS Neutrophils 6.12 Final ABS Lymphs 2.29 Final ABS Eosinophils 0.11 Final ABS Basophils 0.06 Final Type of Diff: Automated Final HCG FOR - Abnormal HCG 1042 (*) Final POCT URINE DIPSTICK - Abnormal Ketones Trace (*) Final Blood Trace (*) Final Color YELLOW Final Clarity, UA Clear Final Glucose Neg Final Bilirubin Neg Final Specific [place] 1.025 Final pH 5.5 Final Protein Neg Final Urobilinogen 0.2 Final Nitrite Neg Final Leuk Esterase Neg Final Tech ID [id number] Final Relevant Data Procedures ED COURSE A medical screening exam was performed. She has abdominal pain improved on discharge. Only mild left lower quadrant abdominal pain. Discussed with patient her ultrasound results. She is to follow up with HAND SCRAPER. ASSESSMENT AND PLAN Final diagnoses: Abdominal pain during , first trimester DISPOSITION: Discharged The patient's pain was managed to an adequate level weighing risk vs. benefit of further medications. Upon departure from the Emergency Department, the patient's pain was 2 on a zero to ten scale. Condition at departure from the Emergency Department: Improved PCP: Abdoulaye Wise was available for supervision. 12/10/2016 0:13 No flowsheet data found. * Russell Lorenzo RN - 12/09/2016 1859 EDT Chief Complaint Patient presents with ??? Abdominal Pain pt states she is about 4 weeks and is having abdominal pain that extends around to her lower back documented in this encounter Plan of Treatment Not on file documented as of this encounter Goals Goal Patient Goal Type Associated Problems Recent Progress Patient-Stated? Author Blood Pressure < 130/80 Blood Pressure 118/78(2017 16:01 EDT) No Rina Agosto MD Weight Loss General Yes iRna Agosto MD Note: Goal = 145lbs documented as of this encounter Procedures Procedure Name Priority Date/Time Associated Diagnosis Comments RAD US OB LESS THAN 14 WKS TRANSVAGINAL & LMT DOPPLER STAT 12/09/2016 21:37 EDT POCT URINE DIPSTICK, CLINITEK STAT 12/09/2016 19:50 EDT COMPLETE BLOOD COUNT AND DIFFERENTIAL STAT 12/09/2016 19:45 EDT QUANT BETA HCG, STAT 12/09/2016 19:45 EDT documented in this encounter Results * RAD US OB LESS THAN 14 WKS TRANSVAGINAL & LMT DOPPLER (12/09/2016 21:37 EDT) Anatomical Region Laterality Modality Other 12/09/2016 21:3 7 EDT 12/10/2016 9:38 EDT Narrative 12/10/2016 9:38 EDT RAD US OB LESS THAN 14 WKS TRANSVAGINAL ?? 12/09/2016 9:37 PM Signs and Symptoms/Comments: ??Pain, LLQ abd pain in 4 weeks Comparison: January 24, 2016, December 13, 2015 Technique: Still, cinematic, and color Doppler ultrasound examination of the pelvis utilizing transabdominal and transvaginal technique. MATERNAL STRUCTURES: Right Ovary: The right ovary measures 4.3 x 2.4 x 2.3 cm = 12.7 mL. ?? Color Doppler shows normal arterial and venous flow. ??There is trace free fluid adjacent to the right ovary. ??A corpus luteum cyst measures 1.6 x 2.2 x 1.5 cm. Left Ovary: Left ovary measures 3.5 x 2.0 x 1.9 cm. ??Color Doppler shows normal arterial and venous flow. ??A cyst of the left ovary measures 1.2 x 2.2 x 1.3 cm. ??A single internal septation is seen. Other Adnexal Masses: None Free Fluid: There is trace anechoic free fluid within the deep pelvis and cul-de-sac. Uterus: The uterus is coarsely homogeneous in echotexture and anteroverted; measuring 9.3 x 4.7 x 6.9 cm. Gestational Sac within Uterus: Present Yolk Sac: None Fetus: None Cardiac Activity: None BIOMETRY/MEASUREMENTS: LMP: November 09, 2016 = 4 weeks and 2 days Prior Ultrasound Dating: Unavailable CRL: None available Mean Sac Diameter: 2.6 mm fluid-filled space within the endometrial cavity may reflect an early gestational sac. ??This would indicate a gestational age of less than or equal to 5 weeks. Small nabothian cysts are identified. Amniotic Fluid: Minimal Impression: Cervix: 1. ??Tiny gestational sac measuring 2.6 mm is out of range for accurate dating, reflecting a gestational age of less than or equal to 5 weeks. 2. ??No fetus, yolk sac, or cardiac activity is identified. 3. ??Right corpus luteum cyst 4. ??Thin walled septated follicle of the left ovary. Dr. Gee discussed findings with GINGER OQUENDO on ??12/09/2016 11:24 PM. I have personally reviewed the images and the above interpretation and agree with the findings. Procedure Note Carmelo Flores MD - 12/10/2016 RAD US OB LESS THAN 14 WKS TRANSVAGINAL 12/09/2016 9:37 PM Signs and Symptoms/Comments: Pain, LLQ abd pain in 4 weeks Comparison: January 24, 2016, December 13, 2015 Technique: Still, cinematic, and color Doppler ultrasound examination of the pelvis utilizing transabdominal and transvaginal technique. MATERNAL STRUCTURES: Right Ovary: The right ovary measures 4.3 x 2.4 x 2.3 cm = 12.7 mL. Color Doppler shows normal arterial and venous flow. There is trace free fluid adjacent to the right ovary. A corpus luteum cyst measures 1.6 x 2.2 x 1.5 cm. Left Ovary: Left ovary measures 3.5 x 2.0 x 1.9 cm. Color Doppler shows normal arterial and venous flow. A cyst of the left ovary measures 1.2 x 2.2 x 1.3 cm. A single internal septation is seen. Other Adnexal Masses: None Free Fluid: There is trace anechoic free fluid within the deep pelvis and cul-de-sac. Uterus: The uterus is coarsely homogeneous in echotexture and anteroverted; measuring 9.3 x 4.7 x 6.9 cm. Gestational Sac within Uterus: Present Yolk Sac: None Fetus: None Cardiac Activity: None BIOMETRY/MEASUREMENTS: LMP: November 09, 2016 = 4 weeks and 2 days Prior Ultrasound Dating: Unavailable CRL: None available Mean Sac Diameter: 2.6 mm fluid-filled space within the endometrial cavity may reflect an early gestational sac. This would indicate a gestational age of less than or equal to 5 weeks. Small nabothian cysts are identified. Amniotic Fluid: Minimal Impression: Cervix: 1. Tiny gestational sac measuring 2.6 mm is out of range for accurate dating, reflecting a gestational age of less than or equal to 5 weeks. 2. No fetus, yolk sac, or cardiac activity is identified. 3. Right corpus luteum cyst 4. Thin walled septated follicle of the left ovary. Dr. Gee discussed findings with GINGER OQUENDO on 12/09/2016 11:24 PM. I have personally reviewed the images and the above interpretation and agree with the findings. Tierney Ward PA-C [place] [facility] ORDERABLES * (ABNORMAL) POCT URINE DIPSTICK (12/09/2016 19:50 EDT) Color YELLOW 12/09/2016 20:02 EDT [facility] Clarity, UA Clear 12/09/2016 20:02 EDT [facility] Glucose Neg Neg 12/09/2016 20:02 EDT [facility] Bilirubin Neg Neg 12/09/2016 20:02 EDT [facility] Ketones Trace(A) Neg 12/09/2016 20:02 EDT [facility] Specific [place] 1.025 1.001 - 1.035 12/09/2016 20:02 T [facility] Blood Trace(A) Neg 12/09/2016 20:02 T [facility] pH 5.5 4.6 - 8.0 12/09/2016 20:02 T [facility] Protein Neg Neg 12/09/2016 20:02 T [facility] Urobilinogen 0.2 0.2 - 1.0 E.U./dl 12/09/2016 20:02 T [facility] Nitrite Neg Neg 12/09/2016 20:02 T [facility] Leuk Esterase Neg Neg 12/09/2016 20:02 T [facility] psychiatric security nurse ID [id number] 12/09/2016 20:02 T [facility] Comment:Test performed at [facility] Urine specimen (specimen) URINE / Unknown 12/09/2016 19:50 EDT 12/09/2016 20:02 EDT Tierney Ward PA-C POINT OF CARE TEST ORDERABLES Performing Organization Address [facility] de Phone Number [facility] [address] [place] [address] * (ABNORMAL) HCG FOR (12/09/2016 19:45 EDT) Quant Beta HCG, Preg 1,042(H) <5 mIU/ml 12/09/2016 21:00 EDT [facility] Comment: Reference Range: Negative = <5 Indeterminate = 5-25 recommend repeat in 48 hours. Positive = >25 Blood specimen (specimen) BLOOD SPECIMEN / Unknown 12/09/2016 19:45 EDT 12/09/2016 20:11 EDT Tierney Ward PA-C CHEMI STRY & BLOOD GAS ORDERABLES Performing Organization Address City/[facility]/ZIP Co de Phone Number [facility] [address] [place] [phone] * (ABNORMAL) HEMAGRAM AND DIFFERENTIAL (12/09/2016 19:45 EDT) WBC 9.53 4.0 - 12.4 K/cmm 12/09/2016 20:14 [facility] RBC 4.34 3.86 - 5.04 M/cmm 12/09/2016 20:14 [facility] Hemoglobin 12.2 11.6 - 15.2 gm/dl 12/09/2016 20:14 [facility] HCT 35.6 34.9 - 44.4 % 12/09/2016 20:14 [facility] MCV 82 81 - 98 fl 12/09/2016 20:14 [facility] MCH 28.1 26.7 - 33.3 pg 12/09/2016 20:14 [facility] MCHC 34.3 32.1 - 35.9 gm/dl 12/09/2016 20:14 [facility] RDW-CV 12.8 11.7 - 14.6 % 12/09/2016 20:14 [facility] RDW-SD 37.9 37.6 - 50.3 fl 12/09/2016 20:14 [facility] PLT 232 141 - 377 K/cmm 12/09/2016 20:14 [facility] MPV 10.8 9.5 - 12.7 fl 12/09/2016 20:14 [facility] % Neutrophils 64.3 % 12/09/2016 20:14 [facility] % Lymphocytes 24.0 % 12/09/2016 20:14 [facility] % Monocytes 9.2 % 12/09/2016 20:14 [facility] % Eosinophils 1.2 % 12/09/2016 20:14 [facility] % Basophils 0.6 % 12/09/2016 20:14 [facility] % Immature Grans 0.7 % 12/09/2016 20:14 [facility] ABS Neutrophils 6.12 2.20 - 8.85 K/cm 12/09/2016 20:14 EDT [facility] ABS Lymphs 2.29 1.09 - 3.30 K/[facility] 12/09/2016 20:14 EDT [facility] ABS Monocytes 0.88(H) 0.1 - 0.8 K/[facility] 12/09/2016 20:14 EDT [facility] ABS Eosinophils 0.11 0.03 - 0.61 K/[facility] 12/09/2016 20:14 EDT [facility] ABS Basophils 0.06 0.01 - 0.11 K/[facility] 12/09/2016 20:14 T [facility] ABS Immature Grans 0.07(H) 0 - 0.06 K/[facility] 12/09/2016 20:14 T [facility] Type of Diff: Automated 12/09/2016 20:14 T [facility] Blood specimen (specimen) BLOOD SPECIMEN / Unknown 12/09/2016 19:45 EDT 12/09/2016 20:11 EDT Tierney ROGEL GES & DNA PROBE ORDERABLES Performing Organization Address City/State/[facility] Co de Phone Number [facility] [address] [place] [address] documented in this encounter Visit Diagnoses Diagnosis Abdominal pain during , first trimester- Primary documented in this encounter Administered Medications Inactive Administered Medications - up to 3 most recent administrations Medication Order MAR Action Action Date Dose Rate Site ondansetron (PF) (ZOFRAN) injection 4 mg 4 mg, intravenous, NOW X1, 1 dose, On Fri12/09/16 at 1945, STAT Given 12/09/2016 19:57 EDT 4 mg sodium chloride 0.9 % BOLUS 1,000 mL 1,000 mL, intravenous, NOW X1, 1 dose, On Fri12/09/16 at 1945, STAT New Bag 12/09/2016 19:54 EDT 1,000 mL documented in this encounter Active and Recently Administered Medications Times are shown in EDT. Scheduled Medication Order 12/07/2016 12/08/2016 12/09/2016 ondansetron (PF) (ZOFRAN) injection 4 mg (COMPLETED) 4 mg, intravenous, NOW X1, 1 dose, On Fri12/09/16 at 1945, STAT 1957 (Given - Provid er: Melinda Omer RN) sodium chloride 0.9 % BOLUS 1,000 mL (COMPLETED) 1,000 mL, intravenous, NOW X1, 1 dose, On Fri12/09/16 at 1945, STAT 1954 (New Bag - Prov ider: Melinda Omer RN)2320 (Completed - Provider: Mohini Garcia RN) documented in this encounter Orders Nursing Count Last Ordered Date First Orde red Date INSERT PERIPHERAL IV 1 12/09/2016 documented in this encounter Care Teams French Cord Binder Relationship Specialty Start Date End Date Abdoulaye Gonzalez PCP - General 12/22/15 04/05/18 documented as of this encounter
--- OUTSIDE RECORDS SUMMARY | 2024-04-14 20:41 | XMS_ITS | Encounter Summary ---
Author Organization [facility] Address [address] [place] [address] Care Team Providers Care [employer] Dispatcher Name Role Phone Abdoulaye Gonzalez Primary Care Provider [phone] Reason for Visit * Reason Onset Date Comments Truck Guard Message 06/06/2016 Encounter Details Date Type Department Care Team (Late st Contact Info) Description 06/06/2016 Telephone [facility] - [place] [address] [place] [address] Meagan Sandhu MD [address] [place] [phone] Truck Guard Message Social History Tobacco Use Types Packs/Day [...] No 04/29/2016 documented as of this encounter Ordered Prescriptions Prescription Sig Dispensed Refills Start Date End Da te propRANolol (INDERAL) 10 mg tabletIndications:migraine prevention Take 2 Tabs by mouth daily. 60 Tab 06/07/2016 11/05/2016 documented in this encounter Miscellaneous Notes * Telephone Encounter - Diana Hawkins, RN - 06/07/2016 1344 EDT Gladys is calling today she feel worse She is continuing with chest pain as noted below Cristo Gonzalez told Gladys to go to ED if this continued and to let us know She let us now she is vomiting to what should she do with her baby and how would she get the ED Reviewed ambulance Call them and she did not want to based on her arriving any moment to get her and she will need to take him with her. She wanted to let us know she vomited 3 times since she spoke to Cirsto Gonzalez around 10 am She will follow up if needed I notified triage of this issue * Telephone Encounter - Johana Cody - 06/07/2016 1340 EDT Pt hung up, I called her back, call transf to Diana * Telephone Encounter - Johana Cody - 06/07/2016 1337 EDT Pt c/o cont chest pain, states reflux med not helping, wants to go to ER but wants to speak withnurse first, * Telephone Encounter - Abdoulaye Gonzalez - 06/07/2016 1004 EDT Spoke with Gladys. As below, she has had chest tightness, fatigue, nausea, and a racing heart beat. Stopped the propranolol a month ago. Notes that the last time she felt like this, she was diagnosedwith migraines and started in propranolol. Stopped the propranolol b/c she couldn't afford it. Has started the process of getting enrolled in health insurance. She also had sx like this when she was last . Treated with GI cocktail in ED, which resolved sx. Tried taking Tums and pepto-bismol last night, with minimal improvement. Advised that she is likely having GERD sx. Will try taking Mylanta and omeprazole. If no improvement by 2 PM, she will go to ED for evaluation. She'll call us first. Advised to restart propranolol as well. May be able to get help with coverage through Pt Assistance. Has contact info for Yakelin Zamudio, and will call her. * Telephone Encounter - Diana Hawkins RN - 06/07/2016 0924 EDT Gladys is is very fatigued and light headed. She was upstairs last night and she was having chest pain and feels very fatigued States DOC told her she would be seen here today There are no appointments and I did discuss with Cristo Gonzalez who is going to call her now Her b/p was 148.93 and she was very worried that was too high * Telephone Encounter - Amanda Mckeon - 06/07/2016 0925 EDT Pt called on-call doc last night. Pt is having chest pain this am. Pt has been having nausea and lightheadedness. Pt can be reached at [phone]. * Telephone Encounter - Meagan Sandhu MD - 06/06/2016 2969 EDT Not feeling great. Nausea and lightheaded with dizzy and chest pain. No fever. No problems with her breathing today. Stopped taking propranolol to try to get . Stopped a month or two ago. Does not feel she is panicky or anxious. Told her she could go to [facility] or call in am for OV. She will most likely do this. documented in this encounter Plan of Treatment [...] Discontinue Reason Start Date End Da te propranolol (INDERAL) 10 mg tabletIndications:migrain e prevention Take 20 mg by mouth daily. Reorder 06/07/2016 documented as of this encounter Care Teams [employer] Dispatcher Relationship Specialty Start Date End Date Abdoulaye Gonzalez PCP - General 12/22/15 04/05/18 documented as of this encounter
--- OUTSIDE RECORDS SUMMARY | 2024-04-14 20:41 | XMS_ITS | Encounter Summary ---
Author Organization [facility] Address [address] [place] [address] Care Team Providers Care Marzipan Maker Name Role Phone Abdoulaye Gonzalez Primary Care Provider [phone] Reason for Visit * Reason Onset Date Comments Testing 06/28/2016 ETT Encounter Details Date Type Department Care Team (Late st Contact Info) Description 06/28/2016 Telephone [facility] Cardiology - [address] [place], [place] [phone] Abdoulaye Gonzalez [address] [place] [phone] Testing (ETT) Social History Tobacco Use Types Packs/Day Years [...] * Telephone Encounter - Katia Asencio - 07/01/2016 0842 EST Pt is uninsured. She is going to contact pt financial. I have also reached out to Joi for an estimate. * Telephone Encounter - Mary Corbin - 06/28/2016 1526 EST Pt called to schedule ETT documented in this encounter Plan of Treatment [...] on filedocumented in this encounter Care Teams Marzipan Maker Relationship Specialty Start Date End Date Abdoulaye Gonzalez PCP - General 12/22/15 04/05/18 documented as of this encounter
--- OUTSIDE RECORDS SUMMARY | 2024-04-14 20:41 | XMS_ITS | Encounter Summary ---
Author Organization [facility] Address [address] [place] [address] Care Team Providers Care Cigarette Examiner Name Role Phone Abdoulaye Gonzalez Primary Care Provider [phone] Reason for Visit * Reason Onset Date Comments Medication Management 09/05/2016 Encounter Details Date Type Department Care Team (Late st Contact Info) Description 09/05/2016 Telephone [facility] Adult Primary Care - [address] [phone] Abdoulaye Gonzalez [address] [place] [id number] Medication Management Social History Tobacco Use Types [...] Telephone Encounter - Diana Hawkins, RN - 09/05/2016 1730 EST Mac send to Cristo Gonzalez there is no time for you to see her face to face so review and let team 2 know * Telephone Encounter - Libia Locke - 09/05/2016 1534 EST Reason for Call: Medication Management Summary/Symptoms: Would like to discuss medication for face not able to use the one she has been using Onset and Duration? Appointment Offered? Libia Locke 09/05/2016 15:34 documented in this encounter Plan of Treatment [...] on filedocumented in this encounter Care Teams Cigarette Examiner Relationship Specialty Start Date End Date MgAlverto gusmantin PCP - General 12/22/15 04/05/18 documented as of this encounter
--- OUTSIDE RECORDS SUMMARY | 2024-04-14 20:41 | XMS_ITS | Encounter Summary ---
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) Social History Tobacco Use Types [...] documented as of this encounter Results * TSH (07/09/2016 17:04 EST) TSH 1.66 0.55 - 4.78 uIU/ml 07/09/2016 19:49 EST [facility] Blood specimen (specimen) BLOOD SPECIMEN / Unknown 07/09/2016 17:04 EST 07/09/2016 18:33 EST Luiz Mauro MD CHEMISTRY & BLOOD GA S ORDERABLES Performing Organization Address [facility] Co de Phone Number [facility] [address] [place] [address] * HCG FOR (07/09/2016 17:04 EST) Quant Beta HCG, Preg <5 <5 mIU/ml 07/09/2016 19:20 EST [facility] Comment: Reference Range: Negative = <5 Indeterminate = 5-25 recommend repeat in 48 hours. Positive = >25 Blood specimen (specimen) BLOOD SPECIMEN / Unknown 07/09/2016 17:04 EST 07/09/2016 18:33 EST Luiz Mauro MD CHEMISTRY & BLOOD GA S ORDERABLES Performing Organization Address [facility] Co de Phone Number [facility] [address] [place] [address] * PROLACTIN (07/09/2016 17:04 EST) Prolactin 8.7 ng/ml 07/09/2016 19:49 EST [facility] Comment: Non-: 2.8-29.2 : 9.7-208.5 Post Menopausal: 1.8-20.3 Blood specimen (specimen) BLOOD SPECIMEN / Unknown 07/09/2016 17:04 EST 07/09/2016 18:33 EST Luiz Mauro MD CHEMISTRY & BLOOD GA S ORDERABLES [facility] [address] [place] [address] documented in this encounter Visit Diagnoses Diagnosis Galactorrhea in female- Primary documented in this encounter Care Teams Wire Hanger Relationship Specialty Start Date End Date Abdoulaye Gonzalez PCP - General 12/22/15 04/05/18 documented as of this encounter
--- OUTSIDE RECORDS SUMMARY | 2024-04-14 20:41 | XMS_ITS | Encounter Summary ---
Author Organization [facility] Address [address] [place] [address] Care Team Providers Care Database Support Name Role Phone Abdoulaye Gonzalez Primary Care Provider [phone] Reason for Visit * Reason Onset Date Comments Medication Management 09/11/2016 Encounter Details Date Type Department Care Team (Late st Contact Info) Description 09/11/2016 Telephone [facility] Adult Primary Care - [address] [phone] Abdoulaye Gonzalez [address] [place] [address] Medication Management Social History Tobacco Use Types [...] Telephone Encounter - Diana Hawkins, RN - 09/11/2016 1015 EST Our latest communication from Gladys eduinservando she is not going to use the medication for now Cancelled script * Telephone Encounter - Lucretia Zaldivar - 09/11/2016 1006 EST Reason for Call: Medication Management Summary/Symptoms: Pharmacy called looking for some clarification on the Clindamycin -Looking to know where it will be applied and how much should be applied. Please call pharmacy to advise. Onset and Duration? Appointment Offered? No Lucretia Zaldivar 09/11/2016 10:06 documented in this encounter Plan of Treatment [...] on filedocumented in this encounter Care Teams Database Support Relationship Specialty Start Date End Date Abdoulaye Gonzalez PCP - General 12/22/15 04/05/18 documented as of this encounter
--- OUTSIDE RECORDS SUMMARY | 2024-04-14 20:41 | XMS_ITS | Encounter Summary ---
Author Organization [facility] Address [address] [place] [address] Care Team Providers Care Licensed Acupuncturist Name Role Phone Abdoulaye Gonzalez Primary Care Provider [phone] Reason for Visit * Reason Onset Date Comments Medication Management 06/12/2016 Encounter Details Date Type Department Care Team (Late st Contact Info) Description 06/12/[address] [facility] Adult Primary Care - [address] [phone] Abdoulaye Gonzalez [address] [place] [phone] Medication Management Social History Tobacco Use Types [...] Telephone Encounter - Diana Hawkins RN - 06/12/2016 1316 EDT Gave Gladys the information about the advil via telephone message. Asked her to call back if needed to discuss that she can use tylenol 1000 mg every 8 hours instead of tylenol if the chest pain continues She was also given the message that taking advil now is a very low risk and she should be fine using it but it is her choice at this time since a is unkown at this time. She does have an appointment to deisy Gonzalez to review all of this on Friday * Telephone Encounter - Abdoulaye Gonzalez - 06/12/2016 1308 EDT There is a small risk of miscarriage with ibuprofen. She really should be ok taking ibuprofen for afew days if the pain is intense. Alternatively, she could try taking APAP, up to 1000 mg TID. * Telephone Encounter - Diana Hawkins RN - 06/12/2016 1232 EDT Gladys was diagnosed by ED as having pericarditis and she would need to take advil for the chest pain that is about all she needed to do since she is trying to get She is afraid to use it since she has not has her menses yet and she may be She took a test which came back negative but she does not want anything to happen to the fetus if advil is not recommended while She used the advil she was told to but stopped it yesterday and then the pain came back today and she has not taken the advil as advised due to message above. She will take it easy until she hears back did schedule visit for her to be seen on Friday as that is what she felt she was told to do by ED Doc * Telephone Encounter - Libia Locke - 06/12/2016 1224 EDT Reason for Call: Medication Management Summary/Symptoms: Trying to get , still having chest pains and told by the ER to take ibuprofen, should she continue with ibuprofen while trying to get Onset and Duration? Appointment Offered? Libiadomitila HuCornelia 06/12/2016 12:24 documented in this encounter Plan of Treatment [...] filedocumented in this encounter Care Teams Licensed Acupuncturist Relationship Specialty Start Date End Date Abdoulaye Gonzalez PCP - General 12/22/15 04/05/18 documented as of this encounter
--- OUTSIDE RECORDS SUMMARY | 2024-04-14 20:41 | XMS_ITS | Encounter Summary ---
Author Organization [facility] Address [address] [place] [address] Care Team Providers Care Accounts Payable Assistant Name Role Phone Abdoulaye Gonzalez Primary Care Provider [phone] Reason for Visit * Reason Onset Date Comments Medications Refill 12/02/2016 Encounter Details Date Type Department Care Team (Late st Contact Info) Description 12/02/2016 Refill [facility] Adult Primary Care - [address] [phone] Abdoulaye Gonzalez [address] [place] [phone] Medications Refill Social History Tobacco Use Types [...] Telephone Encounter - Svetlana Mccollum RN - 12/03/2016 0833 EDTFrom: Gladys Lopez To: Abdoulaye Gonzalez NP Sent: 12/02/2016 18:35 EDT Subject: Medication Renewal Request Original authorizing provider: PARIS Taylor would like a refill of the following medications: clindamycin (CLINDAGEL) 1 % gel [Abdoulaye Gonzalez NP] tretinoin (RETIN-A) 0.025 % cream [Abdoulaye Gonzalez NP] Preferred pharmacy: [facility] pharmacy [facility] Comment: documented in this encounter Plan of Treatment [...] filedocumented in this encounter Care Teams Accounts Payable Assistant Relationship Specialty Start Date End Date Abdoulaye Gonzalez PCP - General 12/22/15 04/05/18 documented as of this encounter
--- OUTSIDE RECORDS SUMMARY | 2024-04-14 20:41 | XMS_ITS | Encounter Summary ---
Author Organization [facility] Address [address] [place] [address] Care Team Providers Care Steak Tenderizer Machine Name Role Phone Abdoulaye Gonzalez Primary Care Provider [phone] Reason for Visit * Reason Onset Date Comments Medications Refill 11/15/2016 Encounter Details Date Type Department Care Team (Late st Contact Info) Description 11/15/[address] [facility] Adult Primary Care - [address] [phone] Abdoulaye Gonzalez [address] [place] [address] Medications Refill Social History Tobacco Use Types [...] Telephone Encounter - Diana Hawkins RN - 11/15/2016 1500 EDTFrom: Gladys Lopez To: Abdoulaye Gonzalez NP Sent: 11/15/2016 13:09 EDT Subject: Medication Renewal Request Original authorizing provider: PARIS Taylor would like a refill of the following medications: clindamycin (CLINDAGEL) 1 % gel [Abdoulaye Gonzalez NP] [facility] pharmacy[facility]: Send [facility] to [facility] documented in this encounter Plan of Treatment [...] on filedocumented in this encounter Care Teams Steak Tenderizer Machine Relationship Specialty Start Date End Date Abdoulaye Gonzalez PCP - General 12/22/15 04/05/18 documented as of this encounter
--- OUTSIDE RECORDS SUMMARY | 2024-04-14 20:41 | XMS_ITS | Encounter Summary ---
Author Organization [facility] Address [address] [place] [address] Care Team Providers Care Concrete Floor Installer Name Role Phone Abdoulaye Gonzalez Primary Care Provider [phone] Fiordaliza Hurt MD Primary Care Provider [phone] Unknown, Provider Primary Care Provider [phone] Reason for Visit * Reason Onset Date Comments Medications Refill 07/05/2016 Encounter Details Date Type Department Care Team (Late st Contact Info) Description 07/05/2016 Refill [facility] Dermatology 5th Floor [facility] [address] [place], [place] [phone] Sujatha Craven MD PhD [address] [place] [address], [address] [place] [address] Medications Refill Social History Tobacco [...] * Telephone Encounter - Hetal Vallejo - 07/05/2016 1018 EST Spoke to patient about refilling spironolactone. Dr Albert previously prescribed the medication and noted patient was to stop use after finishing all pills due to patient trying to get . Patient states she no longer is trying and needs a refill but will contact her primary care doctor for the refill instead of scheduling an appointment with derm. Patient will call back if she needs to schedule. Hetal Vallejo 07/05/2016 10:40 documented in this encounter Plan of Treatment [...] on filedocumented in this encounter Care Teams Concrete Floor Installer Relationship Specialty Start Date End Date Abdoulaye Gonzalez PCP - General 12/22/15 04/05/18 Fiordaliza Hurt MD PCP - General 04/06/18 08/16/19 Unknown, MD Melinda PCP - General 05/09/21 documented as of this encounter
--- OUTSIDE RECORDS SUMMARY | 2024-04-14 20:41 | XMS_ITS | Encounter Summary ---
Author Organization [facility] Address [address] [place] [address] Care Team Providers Care Director Federal Name Role Phone Abdoulaye Gonzalez Primary Care Provider [phone] Reason for Visit * Reason Onset Date Comments Neck Pain 09/22/2016 Encounter Details Date Type Department Care Team (Late st Contact Info) Description [facility] [address] [phone] Abdoulaye Gonzalez [address] [place] [phone] Neck Pain Social History Tobacco Use Types Packs/Day [...] Dispensed Refills Start Date End Da te cyclobenzaprine (FLEXERIL) 10 mg tablet Take 1 Tab by mouth 3 times daily as needed for Muscle Spasms. 20 Tab 09/22/2016 09/22/2016 documented in this encounter Miscellaneous Notes * Telephone Encounter - Lea Posadas - 09/22/2016 1529 EST Outgoing call to pharmacy to phone in script. Pharmacist reports patient had one refill left from older script. Told pharmacist to disregard script from today. Called patient to let her know she still has one refill. Patient verbalized understanding with no barriers to learning and agrees with planof care. * Telephone Encounter - Neva Sequeira NP - 09/22/2016 1519 EST Script signed. Please follow up with PCP tomorrow. Neva Sequeira NP * Telephone Encounter - Lea Posadas - 09/22/2016 1417 EST Outgoing call to Gladys. She reports she has neck pain about 2-3 times a year. 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 Today it has flared again after towel drying her hair and tipping her head. She is afebrile. She states flexerill has help her in the past. She is looking for refill. She is going to contact PCP tomorrow a.m. Routed to POD. * Telephone Encounter - Gabrielle Estes - 09/22/2016 1352 EST Reason for Call: Neck Pain Summary/Symptoms: Pt hurt neck this am after getting out of the shower Onset and Duration? Appointment Offered? No Gabrielle Estes 09/22/2016 13:52 documented in this encounter Plan of Treatment [...] Discontinue Reason Start Date End Da te cyclobenzaprine (FLEXERIL) 10 mg tablet Take 1 Tab by mouth 3 times daily as needed for Muscle Spasms. Error 09/22/2016 09/22/2016 documented as of this encounter Care Teams Director Federal Relationship Specialty Start Date End Date Abdoulaye Gonzalez PCP - General 12/22/15 04/05/18 documented as of this encounter
--- OUTSIDE RECORDS SUMMARY | 2024-04-14 20:41 | XMS_ITS | Encounter Summary ---
Author Organization [facility] Address [address] [place] [address] Care Team Providers Care Corporate Communications Intern Name Role Phone Abdoulaye Gonzalez Primary Care Provider [phone] Reason for Visit * Reason Comments Post-ED Follow Up pericarditis - feels better when doing nothing - when active has some pains - pain on inspiration Encounter Details Date Type Department Care Team (Late st Contact Info) Description 06/17/2016 16:00 EST Office Visit [facility] Adult Primary Care - [address] [phone] Abdoulaye Gonzalez [address] [place] [phone] Chest tightness (Primary Dx) Social History Tobacco Use Types [...] Sign Reading Time Taken Comments Blood Pressure 114/74 06/17/2016 1541 EST Pulse 88 06/17/2016 1541 EST Temperature 36.7 ??C (98.1 ??F) 06/17/2016 1541 EST Respiratory Rate 16 06/17/2016 1541 EST Oxygen Saturation - - Inhaled Oxygen Concentration - - Weight 86.2 kg (190 lb) 06/17/2016 1541 EST Height 162.6 cm (5' 4) 06/17/2016 1541 EST Body Mass Index 32.61 06/17/2016 1541 EST documented in this encounter Functional Status [...] No 04/29/2016 documented as of this encounter Patient Instructions * Patient Instructions* Abdoulaye Gonzalez - 06/17/2016 16:00 EST [facility]: [phone] documented in this encounter Ordered Prescriptions Prescription Sig Dispensed Refills Start Date End Da te triamcinolone (KENALOG) 0.1 % cream Apply to skin on fingers twice a day. 15 g 3 06/17/2016 02/01/2017 documented in this encounter Progress Notes * Adboulaye Gonzalez - 06/17/2016 1600 EST SUBJECTIVE: Chief Complaint Patient presents with ??? Post-ED Follow Up pericarditis - feels better when doing nothing - when active has some pains - pain on inspiration HPI: Gladys was seen in the ED 10 ago for chest pain. EKG showed diffuse J- point type elevation and a 1mm of TX depression. Pt informed she might have pericarditis. Advised to take ibuprofen. Pain has gradually improved since then. Still gets sensation of squeezing and pressure in left sideof chest if she tries to do too much around the house, but feels better within a minute of sitting and resting. Can't say for sure that the pain is better if she sits up and leans forward. Hasn't noted that the pain is worse with deep breath, but has noticed that she has been inadvertently taking shallow breaths to avoid pain. Has no dyspnea or weakness when pain occurs. Has not been taking ibuprofen. Thinks she might be ; period was due a week ago. Urine pt neg at ED; home tests this AM neg as well. PMH sig for preeclampsia. Patient Active Problem List Diagnosis ??? Endometriosis [...] 325 mg by mouth every 6 hours. ??? ALBUTEROL INHL Inhale as directed. ??? azithromycin (ZITHROMAX) 250 mg tablet Take 2 tablets (500 mg) on Day 1, followed by 1 tablet (250 mg) once daily on Days 2 through 5. (Patient not taking: Reported on 06/07/2016) 6 Tab 0 ??? FLUTICASONE PROPIONATE (FLOVENT HFA INHALATION) Inhale as directed. ??? ibuprofen (MOTRIN) 600 mg tablet Take 1 Tab by mouth 3 times daily for 10 days. 30 Tab 0 ??? montelukast (SINGULAIR) 10 mg tablet Take 1 Tab by mouth at bedtime (Patient not taking: Reported on 06/07/2016) 90 Tab 2 ??? ondansetron (ZOFRAN-ODT) 4 mg disintegrating tablet Take 1 Tab by mouth every 8 hours as neededfor Nausea. (Patient not taking: Reported on 06/17/2016) 10 Tab 0 ??? propRANolol (INDERAL) 10 mg tablet Take 2 Tabs by mouth daily. (Patient not taking: Reported on06/07/2016) 60 Tab 0 ??? rizatriptan (MAXALT) 5 mg tablet Take 1 tab at first sign of migraine. Take second dose if headache not better within 2 hours. (Patient not taking: Reported on 06/07/2016) 6 Tab 3 ??? spironolactone (ALDACTONE) 25 mg tablet Take 50 mg by mouth 2 times daily. No current facility-administered medications on file prior to visit. OBJECTIVE: Visit Vitals ??? BP 114/74 ??? Pulse 88 ??? Temp 36.7 ??C (98.1 ??F) (Tympanic) ??? Resp 16 ??? Ht 162.6 cm (64) ??? Wt 86.2 kg (190 lb) ??? LMP 05/12/2016 ??? BMI 32.61 kg/m2 General: Alert, pleasant, NAD CV: RRR, no rub or murmur Resp: CTA ASSESSMENT and PLAN: Chest pain: ?pericarditis vs ischemia vs anxiety. Discussed doing stress test given relationship between pain and mild exertion. Would also be a goodidea to see cardiology prior to getting . She would like to wait on both until her insurance situation has been settled. Trying to purchase plan through the exchange, was supposed to start in early Jun. Encouraged to call Yakelin Zamudio for help with enrollment. Contact info provided. Call with any red flags in the meantime. documented in this encounter Plan of Treatment Not on file documented as of this encounter Goals Goal Patient Goal Type Associated Problems Recent Progress Patient-Stated? Author Blood Pressure < 130/80 Blood Pressure 118/78(2017 16:01 EDT) No Rina Agosto MD Weight Loss General Yes Rina Agosto MD Note: Goal = 145lbs documented as of this encounter Visit Diagnoses Diagnosis Chest tightness- Primary Other chest pain documented in this encounter Care Teams Corporate Communications Intern Relationship Specialty Start Date End Date Abdoulaye Gonzalez PCP - General 12/22/15 04/05/18 documented as of this encounter
--- OUTSIDE RECORDS SUMMARY | 2024-04-14 20:41 | XMS_ITS | Encounter Summary ---
Author Organization [facility] Address [address] [place] [address] Care Team Providers Care Brusher Machine Name Role Phone Abdoulaye Gonzalez Primary Care Provider [phone] Reason for Visit * Reason Onset Date Comments Medications Refill 07/26/2016 Encounter Details Date Type Department Care Team (Late st Contact Info) Description 07/26/2016 Refill [facility] Adult Primary Care - [address] [phone] Abdoulaye Gonzalez [address] [place] [phone] Medications Refill Social History Tobacco Use Types [...] 1 Tab by mouth 2 times daily. 60 Tab 5 07/26/2016 11/05/2016 documented in this encounter Miscellaneous Notes * Telephone Encounter - Gladys Solomon, RN - 07/26/2016 1527 EST Medication not previously ordered by this office, currently listed as historical. Will send to Cristo Gonzalez to review and advise. * Telephone Encounter - Johana Cody - 07/26/2016 1514 EST Medication(s) Requested: spirolactone [facility]: [facility] Last Refill Date: Last Visit Date: Next Visit Date: Visit date not found Is patient out of medication? Yes, pt is OOT without this med Johana Cody 07/26/2016 15:14 documented in this encounter Plan of Treatment [...] Start Date End Da te spironolactone (ALDACTONE) 25 mg tablet Take 50 mg by mouth 2 times daily. 07/26/2016 documented as of this encounter Care Teams Brusher Machine Relationship Specialty Start Date End Date Abdoulaye Gonzalez PCP - General 12/22/15 04/05/18 documented as of this encounter
--- OUTSIDE RECORDS SUMMARY | 2024-04-14 20:41 | XMS_ITS | Encounter Summary ---
Author Organization [facility] Address [address] [place] [address] Care Team Providers Care Picture Hanger Name Role Phone Abdoulaye Gonzalez Primary Care Provider [phone] Encounter Details Date Type Department Care Team (Late st Contact Info) Description 12/03/2016 13:01 EDT - 12/03/2016 23:59 EDT Hospital Encounter [facility] [address] [place] [address] Luiz Mauro MD [address] [facility] [address] [place] [phone] Discharge Disposition: Home or Self Care Social [...] as of this encounter Discharge Diagnoses Diagnosis Z32.01 Encounter for test, result positive-Z32.01[ICD-10-CM] documented in this encounter Medications at Time [...] Code Departure Means Destination Home or Self Half[place] documented in this encounter Plan of Treatment [...] on filedocumented in this encounter Care Teams Picture Hanger Relationship Specialty Start Date End Date Abdoulaye Gonzalez PCP - General 12/22/15 04/05/18 documented as of this encounter
--- OUTSIDE RECORDS SUMMARY | 2024-04-14 20:41 | XMS_ITS | Encounter Summary ---
Author Organization [facility] Address [address] [place] [address] Care Team Providers Care Master Sonar Technician Name Role Phone Abdoulaye Gonzalez Primary Care Provider [phone] Reason for Visit * Reason Onset Date Comments Flank Pain 03/31/2016 Encounter Details Date Type Department Care Team (Late st Contact Info) Description 03/31/2016 Telephone [facility] Primary Care [facility] [address] [id number] Abdoulaye Gonzalez [address] [place] [phone] Flank Pain Social History Tobacco Use Types Packs/Day [...] encounter Miscellaneous Notes * Telephone Encounter - Karrie Horan RN - 03/31/2016 1456 EDT Spoke with patient who states since yesterday she has been having flank pain with possible blood inher urine and states that she she urinates the pain in her kidneys increases along with the feelingof pressure. Patient has a h/o kidney stones and states this is how she felt the last time she was passing a kidney stone and that she had a hard time with that because it was not addressed right away. Patient states she has been trying to drink plenty of fluids but hat her body is denying me drinking, it's so weird. Patient denies any fever,chills or abdominal pain. Patient was advised that she should be seen at the or ED for evaluation. Patient verbalized understanding and is electing honorio seen at the . * Telephone Encounter - Margret Yañez - 03/31/2016 1443 EDT Reason for Call: Flank Pain Summary/Symptoms: Hurts in kidney when urinating, thinks it may be kidney stone. Had kidney stones twice before. Onset and Duration? Yesterday Appointment Offered? Yes - wants advice from nurse first Margret Yañez 03/31/2016 14:43 documented in this encounter Plan of Treatment [...] on filedocumented in this encounter Care Teams Master Sonar Technician Relationship Specialty Start Date End Date Abdoulaye Gonzalez PCP - General 12/22/15 04/05/18 documented as of this encounter
--- OUTSIDE RECORDS SUMMARY | 2024-04-14 20:41 | XMS_ITS | Encounter Summary ---
Author Organization [facility] Address [address] [place] [address] Care Team Providers Care Enrobing Machine Corder Name Role Phone Abdoulaye Gonzalez Primary Care Provider [phone] Reason for Visit * Reason Onset Date Comments Nausea 04/11/2016 Neck Pain 04/11/2016 Encounter Details Date Type Department Care Team (Late st Contact Info) Description 04/11/2016 Telephone [facility] Adult Primary Care - [address] [phone] Abdoulaye Gonzalez [address] [place] [phone] Nausea; Neck Pain Social History Tobacco Use Types [...] Miscellaneous Notes * Telephone Encounter - Diana Hwakins, RN - 04/12/2016 1334 EDT Gladys now wants to be seen today. She will be here at 2 She did not wish to take the advise given yesterday she is too nervous to do so * Telephone Encounter - Amanda Mckeon - 04/12/2016 1226 EDT Pt is not feeling well. Wants to see Abdoulaye Gonzalez today. Pt can be reached at [phone]. * Telephone Encounter - Diana Hawkins RN - 04/11/2016 1436 EDT Gladys woke up with a stiff neck and she has not started her period yet they are trying to have ababy She is very nausea today and she is been napping and noticed her eft breast is heavy She is very anxious about being and she is also very concerned about ritchie insurance. After discussing this issue with her she is going to give herself a few more days to either start her menses or not she is not really due for another day or so. She is very concerned about ritchie insurance and she does christiano some assistance with that. Offered pt assistance or cht help with the [place] ritchie connect since she and her do not know what to do She will take it easy nap and sip on josie delores She will use heat and tylenol for neck pain If her period still has not started by next Friday she will freddy back I am sending this to Cristo BOWMAN so she can send referral to whomever she thinks will be able to help Gladys with her insurance needs * Telephone Encounter - Stephanie Rehman - 04/11/2016 1358 EDT Reason for Call: Nausea and Neck Pain Summary/Symptoms: Patient reports that she has nausea and neck pain; has not been feeling herself; has not started a period; please advise Onset and Duration? Past couple of days Appointment Offered? Stephanie Rehman 04/11/2016 13:58 documented in this encounter Plan of Treatment [...] on filedocumented in this encounter Care Teams Enrobing Machine Corder Relationship Specialty Start Date End Date Abdoulaye Gonzalez PCP - General 12/22/15 04/05/18 documented as of this encounter
--- OUTSIDE RECORDS SUMMARY | 2024-04-14 20:41 | XMS_ITS | Encounter Summary ---
Author Organization [facility] Address [address] [place] [address] Care Team Providers Care Pretzel Twisting Machine Operator Name Role Phone Abdoulaye Gonzalez Primary Care Provider [phone] Reason for Visit * Reason Comments Fatigue not feeling well - p t ? if - states extremely exhausted, dizzy, nausea, still has not started period, states has had some clear leakage thinking she was going to start period, ? infection Encounter Details Date Type Department Care Team (Late st Contact Info) Description 04/12/2016 14:00 EDT Office Visit [facility] Adult Primary Care - [address] [address] Abdoulaye Gonzalez [address] [place] [phone] Fatigue, unspecified type (Primary Dx); Nausea Social History Tobacco Use Types Packs/Day Years [...] Sign Reading Time Taken Comments Blood Pressure 126/82 04/12/2016 1412 EDT Pulse 80 04/12/2016 1412 EDT Temperature - - Respiratory Rate 16 04/12/2016 1412 EDT Oxygen Saturation - - Inhaled Oxygen [...] No 12/26/2015 documented as of this encounter Patient Instructions * Patient Instructions* Abdoulaye Gonzalez - 04/12/2016 14:43 EDT Yakelin Zamudio, Patient Navigator/Patient Financial Assistance: [phone] Recommended Gynecology/Obstectrics practice: [facility] [address] [place] [address] documented in this encounter Progress Notes * Abdoulaye Gonzalez - 04/15/2016 1637 EDT SUBJECTIVE: Chief Complaint Patient presents with ??? Fatigue not feeling well - pt ? if - states extremely exhausted, dizzy, nausea, still has not started period, states has had some clear leakage thinking she was going to start period, ? infection HPI: As above, Gladys has been fatigued, nauseated, lightheaded for 3 days. She has had a sensation of left breast tenderness and neck pain. She and are trying to conceive. Recalls very similar sx when she was with her son. LMP started 30 days ago. Has had clear vaginal drainage several times in past 2 days. No odor, no mucus or blood. Wonders if vaginal drainage indicates she has an infection, which could be delaying her period. Denies pelvic pain, itching, fever, urinary frequency. Hasn't done UPT yet b/c thought it might be too early. Patient Active Problem List Diagnosis ??? Endometriosis ??? ACL injury tear ??? Acute meniscal tear of knee ??? Depression ??? Abnormal Pap smear of cervix ??? Supervision of normal first ??? BMI 32.0-32.9,adult ??? Kidney stone Current Outpatient Prescriptions on File Prior to Visit Medication Sig Dispense Refill ??? acetaminophen (TYLENOL) 325 mg tablet Take 325 mg by mouth every 6 hours. ??? ALBUTEROL INHL Inhale as directed. ??? FLUTICASONE PROPIONATE (FLOVENT HFA INHALATION) Inhale as directed. ??? ibuprofen (MOTRIN) 800 mg tablet Take 600 mg by mouth 3 times daily. ??? montelukast (SINGULAIR) 10 mg tablet Take 1 Tab by mouth at bedtime 90 Tab 2 ??? propranolol (INDERAL) 10 mg tablet Take 20 mg by mouth daily. ??? rizatriptan (MAXALT) 5 mg tablet Take 1 tab at first sign of migraine. Take second dose if headache not better within 2 hours. (Patient not taking: Reported on 03/25/2016) 6 Tab 3 ??? spironolactone (ALDACTONE) 25 mg tablet Take 50 mg by mouth 2 times daily. No current facility-administered medications on file prior to visit. OBJECTIVE: Visit Vitals ??? BP 126/82 ??? Pulse 80 ??? Resp 16 ??? LMP 03/13/2016 (Approximate) General: Alert, pleasant,appears well ASSESSMENT and PLAN: Fatigue, nausea, breast tenderness: Declines to do serum HCG today since she would be paying out ofContur. Will wait a few more days and do home UPT. Contact info for patient navigator provided for help enrolling in health insurance plan. documented in this encounter Plan of Treatment Not on file documented as of this encounter Goals Goal Patient Goal Type Associated Problems Recent Progress Patient-Stated? Author Blood Pressure < 130/80 Blood Pressure 118/78(2017 16:01 EDT) No Rina Agosto MD Weight Loss General Yes Rina Agosto MD Note: Goal = 145lbs documented as of this encounter Visit Diagnoses Diagnosis Fatigue, unspecified type- Primary Nausea Nausea alone documented in this encounter Care Teams Pretzel Twisting Machine Operator Relationship Specialty Start Date End Date MgAbdoulaye gusman PCP - General 12/22/15 04/05/18 documented as of this encounter
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
--- OUTSIDE RECORDS SUMMARY | 2024-04-14 20:41 | XMS_ITS | Encounter Summary ---
Author Organization [facility] Address [address] [place] [address] Care Team Providers Care Chancery Clerk Name Role Phone Abdoulaye Gonzalez Primary Care Provider [phone] Reason for Visit * Reason Onset Date Comments Appointment Related 11/01/2016 Encounter Details Date Type Department Care Team (Late st Contact Info) Description 11/01/2016 Telephone [facility] - [address] [phone] Abdoulaye Gonzalez [address] [place] [phone] Appointment Related Social History Tobacco Use Types [...] encounter Miscellaneous Notes * Telephone Encounter - Tricia Ruth - 11/01/2016 1605 EDT Left reminder message for OV on 11/04/16 documented in this encounter Plan of Treatment [...] Clerk Relationship Specialty Start Date End Date Abdoulaye Gonzalez PCP - General 12/22/15 04/05/18 documented as of this encounter
--- OUTSIDE RECORDS SUMMARY | 2024-04-14 20:41 | XMS_ITS | Encounter Summary ---
Author Organization [facility] Address [address] [place] [address] Care Team Providers Care Director Of Psychology Name Role Phone Abdoulaye Gonzalez Primary Care Provider [phone] Encounter Details Date Type Department Care Team (Late st Contact Info) Description 12/03/2016 Phlebotomy Only [facility] [address] [place] [address] Straightener And Aligner, Outpatient Positive test (Primary Dx) Social History [...] Associated Diagnosis Comments QUANT BETA HCG, Routine 12/03/2016 13:12 EDT Positive test documented in this encounter Results * (ABNORMAL) HCG FOR (12/03/2016 13:12 EDT) Quant Beta HCG, Preg 52(H) <5 mIU/ml 12/03/2016 15:53 EDT [facility] Comment: Reference Range: Negative = <5 Indeterminate = 5-25 recommend repeat in 48 hours. Positive = >25 Blood specimen (specimen) BLOOD SPECIMEN / Unknown 12/03/2016 13:12 EDT 12/03/2016 14:48 EDT Luiz Mauro MD CHEMISTRY & BLOOD GA S ORDERABLES [facility] [address] [place] [address] documented in this encounter Visit Diagnoses Diagnosis Positive test- Primary examination or test, positive result documented in this encounter Care Teams Director Of Psychology Relationship Specialty Start Date End Date Abdoulaye Gonzalez PCP - General 12/22/15 04/05/18 documented as of this encounter
--- OUTSIDE RECORDS SUMMARY | 2024-04-14 20:41 | XMS_ITS | Encounter Summary ---
Author Organization [facility] Address [address] [place] [address] Care Team Providers Care Fishing Hand Name Role Phone Abdoulaye Gonzalez Primary Care Provider [phone] Reason for Visit * Reason Onset Date Comments Medication Problem 04/30/2016 Encounter Details Date Type Department Care Team (Late st Contact Info) Description 04/30/2016 Telephone [facility] - [address] [address] Mary An MD [address] [place] [phone] Medication Problem Social History Tobacco Use Types Packs/Day Years [...] Miscellaneous Notes * Telephone Encounter - Mary An MD - 04/30/20162035 EDT 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 She had been taking it every 4 hours for the preceding 48 hours. Her cold symptoms are better (seen on 04/29 for pharyngitisthought to be due to a viral URI). I suspect she is reacting to sudafed ingredient in Theraflu which can cause jittery feeling. She denies CP or SOB. Patient reassured that symptoms should resolve over next 12 hours. I advised she push fluids and rest tonight. Call or return to clinic prn if these symptoms worsen or fail to improve as anticipated. documented in this encounter Plan of Treatment [...] on filedocumented in this encounter Care Teams Fishing Hand Relationship Specialty Start Date End Date Abdoulaye Gonzalez PCP - General 12/22/15 04/05/18 documented as of this encounter
--- OUTSIDE RECORDS SUMMARY | 2024-04-14 20:41 | XMS_ITS | Encounter Summary ---
Author Organization [facility] Address [address] [place] [address] Care Team Providers Care Commissary Worker Name Role Phone Abdoulaye Gonzalez Primary Care Provider [phone] Reason for Visit * Reason Comments Neck Pain stiff neck for whole week; gets it 3-4 times per year - wondering if pinched a nerve last week - wants to try chiropractor next Encounter Details Date Type Department Care Team (Late st Contact Info) Description 11/04/2016 14:00 EDT Office Visit [facility] Adult Primary [facility] - [address] [address] Abdoulaye Gonzalez [address] [place] [phone] Neck pain (Primary Dx); Cough; Mild persistent asthma without complication Social History Tobacco Use Types Packs/Day Years [...] Sign Reading Time Taken Comments Blood Pressure 120/84 11/04/2016 1350 EDT Pulse 96 11/04/2016 1350 EDT Temperature 37.5 ??C (99.5 ??F) 11/04/2016 1350 EDT Respiratory Rate 16 11/04/2016 1350 EDT Oxygen Saturation - - Inhaled Oxygen Concentration - - Weight 96.6 kg (213 lb) 11/04/2016 1350 EDT Height 162.6 cm (5' 4) 11/04/2016 1350 EDT Body Mass Index 36.56 11/04/2016 1350 EDT documented in this encounter Functional Status [...] Instructions * Patient Instructions* Abdoulaye Gonzalez - 11/04/2016 14:00 EDT [facility] [address] [facility] [place], 2nd Floor, [address] [place] [address] Monique Solares [facility] [address] [place] [address] [email or web address] [phone] Benitez Bustamante [address] [place] [address] documented in this encounter Ordered Prescriptions Prescription Sig Dispensed Refills Start Date End Da te albuterol 90 mcg/actuation inhaler Inhale 1 Puff as directed every 4 hours as needed for Wheezing. 1 Inhaler 2 11/04/2016 09/10/2017 azithromycin (ZITHROMAX) 250 mg tablet Take 2 tablets (500 mg) on Day 1, followed by 1 tablet (250 mg) once daily on Days 2 through 5. 6 Tab 11/04/2016 02/04/2017 cefUROXime (CEFTIN) 250 mg tablet Take 1 Tab by mouth 2 times daily. 20 Tab 11/04/2016 12/20/2016 documented in this encounter Progress Notes * Abdoulaye Gonzalez - 11/04/2016 1400 EDT SUBJECTIVE: Chief Complaint Patient presents with ??? Neck Pain stiff neck for whole week; gets it 3-4 times per year - wondering if pinched a nerve last week - wants to try chiropractor next HPI: 1. Neck pain: As above, neck has been stiff and painful for the past week. Hurts to turn her head to either side. Feels pain in upper back and shoulders as well as neck. Hard to get comfortable at night. Pain doesn't radiate. Denies numbness, tingling, weakness in arms/hands. Has episodes of pain and stiffness like this several times/year. Has seen PT in the past; doesn't feel this has helped. Has been doing some of her PT exercises at home since this most recent bout of pain started. Flexeril helps, but doesn't want to develop dependence. Has family members who she feels are addicted to flexeril. Avoiding NSAIDs b/c she is hoping to get . 2. Cough: Has had URI for about 10 days. Coughing frequently, chest feels tight. Wheezing at times,arlen at night. Cough is prod of thick yellow sputum. Has felt flushed, chilled at times, fatigued. Patient Active Problem List Diagnosis ??? Endometriosis [...] 6 hours. ??? ALBUTEROL INHL Inhale as directed as needed. ??? clindamycin (CLINDAGEL) 1 % gel Apply 1 application topically to affected area 2 times daily. Apply to skin twice daily. 30 g 5 ??? triamcinolone (KENALOG) 0.1 % cream Apply to skin on fingers twice a day. 15 g 3 No current facility-administered medications on file prior to visit. OBJECTIVE: Visit Vitals ??? BP 120/84 ??? Pulse 96 ??? Temp 37.5 ??C (99.5 ??F) (Tympanic) ??? Resp 16 ??? Ht 162.6 cm (64) ??? Wt 96.6 kg (213 lb) ??? LMP 10/12/2016 (Exact Date) ??? BMI 36.56 kg/m2 Gen: Appears mildly fatigued and unwell MSK: Mild C spinous process tenderness. Upper trap muscles are very tight and tender. Sits with shoulder rounded and head forward. Mildly limited ROM in neck. Neuro: Neg Spurling's test. Resp: Mild inspir wheezes in anterior sousa, o/w CTA ASSESSMENT and PLAN: 1. Neck pain: Likely trap muscle tension and strain. Discussed healthy body mechanics (holding chinlevel and tucked, rolling shoulders back, reading or doing tasks at eye level). Declines PT consult. Had been interested in seeing chiro, but out of pocket cost prohibitive. Recommended acupuncture; may be able to pay on sliding scale. Advised to try self massage with lax ball at home; gentle stretches. Apply arnica gel or tiger balm, heat. 2. Cough, asthma flare: Albuterol Q4h PRN. Azithromycin or cefuroxime ([facility] is cheaper). Breathe steam, rest. documented in this encounter Plan of Treatment Not on file documented as of this encounter Goals Goal Patient Goal Type Associated Problems Recent Progress Patient-Stated? Author Blood Pressure < 130/80 Blood Pressure 118/78(2017 16:01 EDT) No Rina Agosto MD Weight Loss General Yes Rina Agosto MD Note: Goal = 145lbs documented as of this encounter Visit Diagnoses Diagnosis Neck pain- Primary Cervicalgia Cough Mild persistent asthma without complication Unspecified asthma documented in this encounter Discontinued Medications Medication Sig Discontinue Reason Start Date End Da te azithromycin (ZITHROMAX) 250 mg tablet Take 2 tablets (500 mg) on Day 1, followed by 1 tablet (250 mg) once daily on Days 2 through 5. Reorder 05/01/2016 11/04/2016 FLUTICASONE PROPIONATE (FLOVENT HFA INHALATION) Inhale as directed. Reported on 11/04/2016 11/05/2016 montelukast (SINGULAIR) 10 mg tablet Take 1 Tab by mouth at bedtime 03/09/2015 11/05/2016 ondansetron (ZOFRAN-ODT) 4 mg disintegrating tablet Take 1 Tab by mouth every 8 hours as needed for Nausea. 06/07/2016 11/05/2016 spironolactone (ALDACTONE) 50 mg tablet Take 1 Tab by mouth 2 times daily. 07/26/2016 11/05/2016 rizatriptan (MAXALT) 5 mg tablet Take 1 tab at first sign of migraine. Take second dose if headache not better within 2 hours. 03/18/2016 11/05/2016 propRANolol (INDERAL) 10 mg tabletIndications:migrain e prevention Take 2 Tabs by mouth daily. 06/07/2016 11/05/2016 documented as of this encounter Historical Medications * This list may reflect changes made after this encounter. Medication Sig Dispensed Refills Start Date End Date ibuprofen (MOTRIN) 200 mg tablet Take 200 mg by mouth every 6 hours. Reported on 12/20/2016 02/01/2017 added in this encounter Care Teams Commissary Worker Relationship Specialty Start Date End Date Abdoulaye Gonzalez PCP - General 12/22/15 04/05/18 documented as of this encounter
--- OUTSIDE RECORDS SUMMARY | 2024-04-14 20:41 | XMS_ITS | Encounter Summary ---
Author Organization [facility] Address [address] [place] [address] Care Team Providers Care Cart Attendant Name Role Phone Abdoulaye Gonzalez Primary Care Provider [phone] Encounter Details Date Type Department Care Team (Late st Contact Info) Description 07/09/2016 17:02 EST - 07/09/2016 23:59 EST Hospital Encounter 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
--- OUTSIDE RECORDS SUMMARY | 2024-04-14 20:41 | XMS_ITS | Encounter Summary ---
Author Organization [facility] Address [address] [place] [address] Care Team Providers Care Sewer Connector Name Role Phone MgAbdoulaye gusman Primary Care Provider [phone] Encounter Details Date Type Department Care Team (Late st Contact Info) Description 12/03/2016 12:04 EDT - 12/03/2016 23:59 EDT Hospital Encounter [address] [address] Unknown, MD Melinda Luiz Mauro MD [address] [place] [address] Discharge Disposition: Auto Discharge Social History Tobacco [...] on filedocumented in this encounter Care Teams Sewer Connector Relationship Specialty Start Date End Date Abdoulaye Gonzalez PCP - General 12/22/15 04/05/18 documented as of this encounter
--- OUTSIDE RECORDS SUMMARY | 2024-04-14 20:41 | XMS_ITS | Encounter Summary ---
Author Organization [facility] Address [address] [place] [address] Care Team Providers Care Rubber Roller Grinder Name Role Phone Abdoulaye Gonzalez Primary Care Provider [phone] Reason for Visit * Reason Onset Date Comments URI 05/01/2016 upper respirator y infection/shakey Encounter Details Date Type Department Care Team (Late st Contact Info) Description 05/01/2016 Telephone [facility] Adult Primary Care - [address] [phone] Abdoulaye Gonzalez [address] [place] [phone] URI (upper respiratory infection/shakey) Social History Tobacco Use Types Packs/Day Years [...] Miscellaneous Notes * Telephone Encounter - Saad Albrecht, RN - 05/01/2016 1154 EDT Difficult breathing last nite, h/o asthma. Did have fever she thinks, no thermom Will come in for OV this afternoon/ Abdoulaye Gonzalez * Telephone Encounter - Amanda Mckeon - 05/01/2016 1131 EDT Reason for Call: URI (upper respiratory infection/shakey) Summary/Symptoms: URI, wheezing, shakey. Took nebulizer treatment. Pt only got 3 hours of sleep last night. Should pt come in to be seen. Pt wants a note from Abdoulaye Gonzalez that she had to miss school because she is sick. Onset and Duration? n/a Appointment Offered? No Amanda Mckeon 05/01/2016 11:31 documented in this encounter Plan of Treatment [...] on filedocumented in this encounter Care Teams Rubber Roller Grinder Relationship Specialty Start Date End Date Abdoulaye Gonzalez PCP - General 12/22/15 04/05/18 documented as of this encounter
--- OUTSIDE RECORDS SUMMARY | 2024-04-14 20:41 | XMS_ITS | Encounter Summary ---
Author Organization [facility] Address [address] [place] [address] Care Team Providers Care Apple Checker Name Role Phone Abdoulaye Gonzalez Primary Care Provider [phone] Encounter Details Date Type Department Care Team (Late st Contact Info) Description 12/03/2016 Orders Only Non [facility] Luiz Mauro MD [address] [facility] [address] [place] [phone] Positive test (Primary Dx) Social History [...] as of this encounter Results * (ABNORMAL) HCG FOR (12/03/2016 13:12 EDT) Quant Beta HCG, Preg 52(H) <5 mIU/ml 12/03/2016 15:53 EDT [facility] Comment: Reference Range: Negative = <5 Indeterminate = 5-25 recommend repeat in 48 hours. Positive = >25 Blood specimen (specimen) BLOOD SPECIMEN / Unknown 12/03/2016 13:12 EDT 12/03/2016 14:48 EDT Luiz Mauro MD CHEMISTRY & BLOOD GA S ORDERABLES [facility] [address] [place] [address] documented in this encounter Visit Diagnoses Diagnosis Positive test- Primary examination or test, positive result documented in this encounter Care Teams Apple Checker Relationship Specialty Start Date End Date Abdoulaye Gonzalez PCP - General 12/22/15 04/05/18 documented as of this encounter
--- OUTSIDE RECORDS SUMMARY | 2024-04-14 20:41 | XMS_ITS | Encounter Summary ---
Author Organization [facility] Address [address] [place] [address] Care Team Providers Care Rn Staff Name Role Phone Abdoulaye Gonzalez Primary Care Provider [phone] Reason for Visit * Reason Comments New Patient Visit NPV for pericarditis , LERMA. Pt feeling better lately w/ not overdoing it; gets CP and tightness in chest when exerting * Consult (Routine) - Specialty Report Received Specialty Diagnoses / Procedures Referred By Gregory velez Referred To Contact Cardiology Diagnoses LERMA (dyspnea on exertion) Other chest pain Abdoulaye Gonzalez [address] [place] [address] [facility] Cardiology [address] [place] [address] [place] [address] Referral ID Status Reason Start Date Expiration Date Visits Requested Visits Authorized [id number] Specialty Report Received Specialty Services Required 6 1 1 Encounter Details Date Type Department Care Team (Late st Contact Info) Description 07/09/2016 9:40 EST Office Visit [facility] Cardiology - [place] [address] [place] [address] Jovan Schwartz MD Chest pain, unspecified type (Primary Dx) Social History Tobacco Use [...] Sign Reading Time Taken Comments Blood Pressure 114/78 07/09/2016929 EST Pulse 84 07/09/2016929 EST Temperature - - Respiratory Rate - - Oxygen Saturation 99% 07/09/2016929 EST Inhaled Oxygen Concentration - - Weight 92.1 kg (203 lb) 07/09/2016929 EST Height 162.6 cm (5' 4) 07/09/2016 09 EST Body Mass Index 34.84 07/09/2016 0930 EST documented in this encounter Functional Status [...] this encounter Patient Instructions * Patient Instructions* Jovan Schwartz MD - 07/09/2016 9:40 EST Take Ibuprofin for possible pericarditis 600 mg (3 200 pills) with food 3 times day for 7 days. Then decrease to 400 mg 2-3 times a day for 1 week, then 200 mg for a week then stop. If this is not helping let me know. documented in this encounter Progress Notes * Jovan Schwartz MD - 07/09/2016 0940 EST This office note has been dictated. documented in this encounter Consult Notes * Jovan Schwartz MD - 07/09/2016 1244 EST [facility] CARDIOLOGY CON[facility]ATION - 07/09/2016 Abdoulaye Gonzalez APRN Adult Primary Care - [address] [address] Reason for Visit: Chest pain, question pericarditis. Problem List: 1. ER evaluation for chest pain June 07 with possible pericarditis diagnosed, treated with incomplete course of ibuprofen with residual symptoms. 2. Asthma. 3. History of preeclampsia 4. Endometriosis 5. Ovarian cyst. 6. Migraines. 7. History of renal stones. 8. History of irritable bowel syndrome. 9. Acne, for which patient takes spironolactone. Dear Abdoulaye, Thanks so much for asking me to see Gladys, who comes accompanied by her and 18-month oldson. She is a very pleasant 26-year-old white female who developed squeezing nonpleuritic, but somewhat positional chest pain, which lasted for about 3 days and was also associated with some dizziness and palpitations. She was evaluated by Dr Camejo in the emergency room and by her notes there was no rub, although the patient thinks there might have been a rub. She had an EKG, which was borderline with minimal ST elevation, really J point elevation and was diagnosed with possible pericarditis. Ibuprofen did help, but she only took it for 3 to 5 days because her SOFTWARE SOLUTIONS ARCHITECT told her to change to Tylenol as she was in the process of trying to become . When she stopped the ibuprofen, her chest pain recurred. Since then she has delayed plans for until this and other issues clearup and she and her are using control. Her current chest pain is somewhat unpredictable, but sometimes happens when she goes for a walk. Other times it does not occur. It does not have point tenderness, not reproducible on exam by the patient or me. It does not appear to the patient to be asthma. She denies any symptoms of reflux. When she over exerts or overdoes it as in the long day she will often times get this chest pain. Again, it is not pleuritic nor positional anymore. Past Medical History: Summarized above. Social History: Nonsmoker, heavy alcohol use. Family History: No family history of premature CAD in first-degree relatives. No other family members with pericarditis. Review of Systems: Positive for subjective hearing trouble, episodes of dizziness, cough, chest pain as above, episodes of nausea, some urinary issues, vaginal discharge, self-described anxiety, leg pain while walking, self- described anxieties, she wears glasses, she has headaches, shortness of breath, indigestion, frequent nocturnal urination, bloody urine, numbness, tingling, nervousness, stress, easy bruising and palpitations. A total of 10 systems were reviewed in detail, positives were listed as above. Other systems are negative. Current Medications: Albuterol inhaler p.r.n. Fluticasone inhaler as directed Spironolactone 50 mg daily. On physical exam, pleasant, heavy set white female in no cardiopulmonary distress. Blood pressure 114/70, heart rate of 84; 203 pounds, BMI is 35. Skin is warm and dry. Neurologic: Grossly nonfocal. Musculoskeletal: Gait is steady. Psychiatric: Oriented x3. Respiratory: Lungs are clear in all sousa. Cardiovascular: Normal S1, S2 is physiologically split. No S3, no S4. There is a 1/6 ejection murmur at the left sternal border, no rub heard with position changes, deep inspiration, deep expiration, left lateral decubitus position. Gastrointestinal: Soft, nontender. Lower extremities show no edema. Data Reviewed: EKG #1 from June 07 ER evaluation shows sinus rhythm with minimal J point elevation. EKG #2 today shows no significant change. In summary, Gladys Reno is a 26-year-old white female who had possible pericarditis in late May. She did not have classic EKG changes. She believes she may have had a rub but this was not documented. She did improve with ibuprofen, which is suggestive of pericarditis, but certainly not specific. She appeared to relapse when the ibuprofen was discontinued. All in all, I think it is reasonable to take a longer course of ibuprofen. Another option for her would be colchicine, but she declines this as she states that there is just no way she could afford it. Treatment as detailed in the patient instruction she will take 600 mg 3 times a day of ibuprofen for 1 week and then decrease to 200 mg a day for 1 week, then 200 mg 3 times a day for 1 week and then down to 200 mg for another week and then stop. This could be adjusted depending on side effects and symptoms. I have not given her a PPI or H2 edward, but that could be added but I did ask her to take the medication with food. Follow up with me will be on an as-needed basis. Lastly, I do not recommend a stress test at this point in time. An echocardiogram is optional. Sincerely, Jovan Schwartz MD 10 45 AM - Jvoan Schwartz MD cn Dictation ID: [id number] cc: Abdoulaye Gonzalez APRN, Adult Primary Care - [address] [address] documented in this encounter Plan of Treatment [...] Associated Diagnosis Comments ECG REPORT - SCANNED 07/12/2016 9:54 EST EKG 12-LEAD Routine 07/09/2016 9:59 EST Chest pain, unspecified type documented in this encounter Results * ECG REPORT - SCANNED (07/12/2016 9:54 EST) 07/12/2016 9:54 EST Scan 2 Grease Maker PROCEDURE/MINOR JANUARY GICAL ORDERABLES * EKG 12-LEAD (07/09/2016 9:59 EST) 07/09/2016 9:59 EST Narrative [facility] EKG - 07/10/2016 8:15 EST ? [facility] ? Test Date: ?2016-07-09 Pat Name: ? GLADYS RENO ?Department: ?? SONDRA CARD ? Room: ? Gender: ? F ?Marine Engineer: ?? [id number] : ?1990 ? Requested By: HAO RAMIREZ Order Number: [id number] ? Reading MD: ?? CORY BANGURA MD ? Measurements Intervals ?[place] ? Rate: ? 80 ? P: ?49 FL: ? 156 ?QRS: ?52 QRSD: ? 96 ? T: ?36 QT: ? 377 ? QTc: ?435 ? Interpretive Statements SINUS RHYTHM Compared to ECG 06/07/2016 14:52:37 No significant changes I reviewed the tracing and have either agreed or edited the findings in this report. Electronically Signed On 07-10-16 08:15:35 EST by CORY BANGURA MD. Procedure Note Cory Bangura MD - 07/10/2016 [facility] Test Date: 2016-07-09 Pat Name: GLADYS RENO Department: SONDRA LANCE Room: Gender: Marine Engineer: [id number] : 1990 Requested By: HAO RAMIREZ Order Number: [id number] Reading MD: CORY BANGURA MD Measurements Intervals [place] Rate: 80 P: 49 FL: 156 QRS: 52 QRSD: 96 T: 36 QT: 377 QTc: 435 Interpretive Statements SINUS RHYTHM Compared to ECG 06/07/2016 14:52:37 No significant changes I reviewed the tracing and have either agreed or edited the findings inthis report. Electronically Signed On 07-10-16 08:15:35 EST by CORY HERNANDEZ. Jovan Schwartz MD CARDIAC ECG [facility] EKG documented in this encounter Visit Diagnoses Diagnosis Chest pain, unspecified type- Primary documented in this encounter Care Teams Rn Staff Relationship Specialty Start Date End Date MgAlverto gusmantin PCP - General 12/22/15 04/05/18 documented as of this encounter
--- OUTSIDE RECORDS SUMMARY | 2024-04-14 20:41 | XMS_ITS | Encounter Summary ---
Author Organization [facility] Address [address] [place] [address] Care Team Providers Care Professor Of Food Biochemistry Name Role Phone Abdoulaye Gonzalez Primary Care Provider [phone] Reason for Visit * Reason Onset Date Comments Other 05/15/2016 Encounter Details Date Type Department Care Team (Late st Contact Info) Description 05/15/2016 Telephone [facility] Adult Primary Care - [address] [phone] Abdoulaye Gonzalez [address] [place] [phone] Other Social History Tobacco Use Types Packs/Day [...] encounter Miscellaneous Notes * Telephone Encounter - Daina Hawkins RN - 05/15/2016 1451 EDT Gladys is saying she is feeling sluggish and has no energy since she had her son She has no energy and feels like the only time she had any energy was when she was on prednisone. She really does not know what to do she does not have insurance I did let her know I will send this to Cristo Gonzalez since she did call in Mar about this issue and she was to be seen and cancelled or no showed those visits but has been in since she had a viral illness end of Apr. Did you wish to have some labs done first of advise She is looking for something to take to get her energy back and I did let her know that there may be other ways besides med's that may help * Telephone Encounter - Libia Locke - 05/15/2016 1142 EDT Reason for Call: Other Summary/Symptoms: Fleeing sluggish, no energy Onset and Duration? Appointment Offered? Libia Locke 05/15/2016 11:42 documented in this encounter Plan of Treatment [...] in this encounter Care Teams Professor Of Food Biochemistry Relationship Specialty Start Date End Date Abdoulaye Gonzalez PCP - General 12/22/15 04/05/18 documented as of this encounter
--- OUTSIDE RECORDS SUMMARY | 2024-04-14 20:41 | XMS_ITS | Encounter Summary ---
Author Organization [facility] Address [address] [place] [address] Care Team Providers Care Diesel Locomotive Firer/Fireman Name Role Phone Abdoulaye Gonzalez Primary Care Provider [phone] Reason for Visit * Reason Comments Fatigue Fever + 2 days Generalized Body Aches Pharyngitis + 2 days, started Th ermaFlu Other needs Doctors letter excusing her from school Encounter Details Date Type Department Care Team (Late st Contact Info) Description 04/29/2016 16:30 EDT Office Visit [facility] Adult Primary Care - [address] [phone] Piyush Lindquist MD [address] [place] [phone] Pharyngitis, unspecified etiology (Primary Dx) Discharge Disposition: Auto Discharge Social [...] Sign Reading Time Taken Comments Blood Pressure 110/82 04/29/2016 1639 EDT Pulse 77 04/29/2016 1639 EDT Temperature 36.9 ??C (98.5 ??F) 04/29/2016 1639 EDT Respiratory Rate 20 04/29/2016 1639 EDT Oxygen Saturation - - Inhaled Oxygen Concentration - - Weight 90.3 kg (199 lb) 04/29/2016 1639 EDT Height 162.6 cm (5' 4) 04/29/2016 1639 EDT Body Mass Index 34.16 04/29/2016 1639 EDT documented in this encounter Functional Status [...] Discharge Diagnoses Diagnosis J02.9 Acute pharyngitis, unspecified-J02.9[ICD-10-CM] documented in this encounter Discharge Disposition Disposition Code Departure Means Destination Auto Discharge documented in this encounter Progress Notes * Geo Morgan - 04/29/2016 1704 EDT Rapid strep performed. I was supervised by Dr. Lindquist who was present and immediately available in the office suite. Geo Morgan 04/29/2016 17:04 * Piyush Lindquist MD - 04/29/2016 1644 EDT Primary Care Internal Medicine Out-patient Progress Note Gladys Lopez is a 26 y.o. female who returns for an acute visit for: 1. Pharyngitis, unspecified etiology SUBJECTIVE Ms Lopez is seen with her and son. She reports that 2 days ago this illness hit her hard. Body aches then sore throat and fever. No cough. Some post nasal drip. Has been resting andpushing fluids. Her son and have not been ill. Medications reviewed with pt today: Current Outpatient Prescriptions Medication Sig ??? acetaminophen (TYLENOL) 325 mg tablet Take 325 mg by mouth every 6 hours. ??? ALBUTEROL INHL Inhale as directed. ??? FLUTICASONE PROPIONATE (FLOVENT HFA INHALATION) Inhale as directed. ??? ibuprofen (MOTRIN) 800 mg tablet Take 600 mg by mouth 3 times daily. ??? montelukast (SINGULAIR) 10 mg tablet Take 1 Tab by mouth at bedtime ??? propranolol (INDERAL) 10 mg tablet Take 20 mg by mouth daily. ??? rizatriptan (MAXALT) 5 mg tablet Take 1 tab at first sign of migraine. Take second dose if headache not better within 2 hours. (Patient not taking: Reported on 03/25/2016) ??? spironolactone (ALDACTONE) 25 mg tablet Take 50 mg by mouth 2 times daily. Patient history reviewed and updated in [facility] Problem List OBJECTIVE Visit Vitals ??? BP 110/82 (BP Cuff Location: Left arm, Patient Position: Sitting, BP Cuff Sizes: Adult, regular) ??? Pulse 77 ??? Temp 36.9 ??C (98.5 ??F) (Tympanic) ??? Resp 20 ??? Ht 162.6 cm (64) ??? Wt 90.3 kg (199 lb) ??? LMP 04/11/2016 ??? BMI 34.16 kg/m2 In no distress but appears ill. HEENT - throat has mod erythema. No tonsillar enlargement or exudates. Neck - neck has feeling of fullness but no palpable adenopathy. Rapid strep is negative. ASSESSMENT Pharyngitis/URI - probably viral. PLAN Rest, fluids and Tylenol Throat culture sent. documented in this encounter Plan of Treatment [...] Diagnosis Comments POCT RAPID STREP SCREEN Routine 04/29/2016 16:54 EDT Pharyngitis, unspecified etiology GROUP A STREP CULTURE Routine 04/29/2016 16:53 EDT Pharyngitis, unspecified etiology documented in this encounter Results * POCT RAPID STREP SCREEN (04/29/2016 16:54 EDT) Rapid Strep Test, POC Negative Negative POINT OF CARE Background Clear? Yes POINT OF CARE Control Line Present Yes POINT OF CARE Rgt A + Rgt B= Yellow: Yes POINT OF CARE Culture Sent to Lab? Yes POINT OF CARE Specimen of unknown material (specimen) 04/29/2016 16:54 EDT Piyush Lindquist MD POINT OF CARE TEST ORDERABLES Performing Organization Address City/[facility]/ZIP Co de Phone Number POINT OF CARE * PHARYNGITIS CULTURE (04/29/2016 16:53 EDT) Result No group A beta streptococci isolated. Usual ny-pharyngeal cristine. 05/01/2016 8:50 EDT [facility] Specimen of unknown material (specimen) ENTIRE THROAT / Unknown 04/29/2016 16:53 EDT 04/29/2016 21:02 EDT Piyush Lindquist MD MICROBIOLOGY - GENE RAL ORDERABLES [facility] [address] [place] [address] documented in this encounter Visit Diagnoses Diagnosis Pharyngitis, unspecified etiology- Primary documented in this encounter Care Teams Diesel Locomotive Firer/Fireman Relationship Specialty Start Date End Date Abdoulaye Gonzalez PCP - General 12/22/15 04/05/18 documented as of this encounter
--- OUTSIDE RECORDS SUMMARY | 2024-04-14 20:41 | XMS_ITS | Encounter Summary ---
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) Social History [...] Priority Date/Time Associated Diagnosis Comments PROLACTIN Routine 07/09/2016 17:04 EST Galactorrhea in female QUANT BETA HCG, Routine 07/09/2016 17:04 EST Galactorrhea in female TSH Routine 07/09/2016 17:04 EST Galactorrhea in female documented in this encounter Results * TSH (07/09/2016 17:04 EST) TSH 1.66 0.55 - 4.78 uIU/ml 07/09/2016 19:49 EST [facility] Blood specimen (specimen) BLOOD SPECIMEN / Unknown 07/09/2016 17:04 EST 07/09/2016 18:33 EST Luiz Mauro MD CHEMISTRY & BLOOD GA S ORDERABLES Performing Organization Address City/[facility]/ZIP Co de Phone Number [facility] [address] [place] [address] * HCG FOR (07/09/2016 17:04 EST) Quant Beta HCG, Preg <5 <5 mIU/ml 07/09/2016 19:20 EST [facility] Comment: Reference Range: Negative = <5 Indeterminate = 5-25 recommend repeat in 48 hours. Positive = >25 Blood specimen (specimen) BLOOD SPECIMEN / Unknown 07/09/2016 17:04 EST 07/09/2016 18:33 EST Luiz Mauro MD CHEMISTRY & BLOOD GA S ORDERABLES [facility] [address] [place] [address] * PROLACTIN (07/09/2016 17:04 EST) Prolactin 8.7 ng/ml 07/09/2016 19:49 EST [facility] Comment: Non-: 2.8-29.2 : 9.7-208.5 Post Menopausal: 1.8-20.3 Blood specimen (specimen) BLOOD SPECIMEN / Unknown 07/09/2016 17:04 EST 07/09/2016 18:33 EST Luiz Mauro MD CHEMISTRY & BLOOD GA S ORDERABLES Performing Organization Address [facility] Co de Phone Number [facility] [address] [place] [address] documented in this encounter Visit Diagnoses Diagnosis 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
--- OUTSIDE RECORDS SUMMARY | 2024-04-14 20:41 | XMS_ITS | Encounter Summary ---
Author Organization [facility] Address [address] [place] [address] Care Team Providers Care Creative/Art Director Name Role Phone Abdoulaye Gonzalez Primary Care Provider [phone] Reason for Visit * Reason Comments Respiratory Problems friday had body a ches, fever that night, barely slept, couging - took robitussin - Friday no strength, slept all day - fever now gone; still coughing, exhausted, lungs feel heavy, feels a weird feeling in throat with breathing Encounter Details Date Type Department Care Team (Late st Contact Info) Description 05/01/2016 14:30 EDT Office Visit [facility] Adult Primary Care - [address] [phone] Abdoulaye Gonzalez [address] [place] [phone] Viral upper respiratory tract infection (Primary Dx); Asthma exacerbation; Cough Social History Tobacco Use Types Packs/Day [...] Sign Reading Time Taken Comments Blood Pressure 120/66 05/01/2016 1439 EDT Pulse 112 05/01/2016 1439 EDT Temperature 37 ??C (98.6 ??F) 05/01/2016 1439 EDT Respiratory Rate 16 05/01/2016 1439 EDT Oxygen Saturation - - Inhaled Oxygen Concentration - - Weight 90.3 kg (199 lb) 05/01/2016 1439 EDT Height 162.6 cm (5' 4) 05/01/2016 1439 EDT Body Mass Index 34.16 05/01/2016 1439 EDT documented in this encounter Functional Status [...] 2 through 5. 6 Tab 05/01/2016 11/04/2016 predniSONE (DELTASONE) 20 mg tablet Take 1 Tab by mouth daily for 5 days. 5 Tab 05/01/2016 05/06/2016 documented in this encounter Progress Notes * Abdoulaye Gonzalez - 05/01/2016 1504 EDT SUBJECTIVE: Chief Complaint Patient presents with ??? Respiratory Problems friday had body aches, fever that night, barely slept, couging - took robitussin - Friday no strength, slept all day - fever now gone; still coughing, exhausted, lungs feel heavy, feels a weird feeling in throat with breathing HPI: As above, Gladys has had an illness for 5 days. Started with very sore throat, which improved after 3 days. Cough came on over the weekend, and has gotten more frequent. Chest feels very congested, tight; not producing sputum. Has felt wheezy. Used albuterol inhaler a few times w/o much benefit, then did nebulizer treatment yesterday, which did help. Has been using albuterol again since then, with more benefit. Uses fluticasone BID. Had fever on Sat-Tues, not today. Feels very fatigued. Patient Active Problem List Diagnosis ??? [...] better within 2 hours. 6 Tab 3 ??? spironolactone (ALDACTONE) 25 mg tablet Take 50 mg by mouth 2 times daily. No current facility-administered medications on file prior to visit. OBJECTIVE: Visit Vitals ??? BP 120/66 ??? Pulse (!) 112 ??? Temp 37 ??C (98.6 ??F) (Tympanic) ??? Resp 16 ??? Ht 162.6 cm (64) ??? Wt 90.3 kg (199 lb) ??? LMP 04/11/2016 ??? BMI 34.16 kg/m2 Gen: Appears mildly fatigued Resp: Mildly diminished breath sounds in bases, o/w clear. No w/r/r or egophony ENT: Tonsils 2+, pink, w/o lesions or exudates. Neck: Mild anterior cerv lad ASSESSMENT and PLAN: URI, asthma exacerbation: Prednisone 20 mg x 5 days, azithromycin x 5 days. Call if no improvement in 2-3 d. documented in this encounter Plan of Treatment Not on file documented as of this encounter Goals Goal Patient Goal Type Associated Problems Recent Progress Patient-Stated? Author Blood Pressure < 130/80 Blood Pressure 118/78(2017 16:01 EDT) No Rina Agosto MD Weight Loss General Yes Rina Agosto MD Note: Goal = 145lbs documented as of this encounter Visit Diagnoses Diagnosis Viral upper respiratory tract infection- Primary Acute upper respiratory infections of unspecified site Asthma exacerbation Unspecified asthma, with exacerbation Cough documented in this encounter Care Teams Creative/Art Director Relationship Specialty Start Date End Date Abdoulaye Gonzalez PCP - General 12/22/15 04/05/18 documented as of this encounter
--- OUTSIDE RECORDS SUMMARY | 2024-04-14 20:41 | XMS_ITS | Encounter Summary ---
Author Organization [facility] Address [address] [place] [address] Care Team Providers Care Chair Maker Name Role Phone Abdoulaye Gonzalez Primary Care Provider [phone] Encounter Details Date Type Department Care Team (Late st Contact Info) Description 06/18/2016 7:43 EST - 06/18/2016 23:59 EST Hospital Encounter [facility] [address] [place] [address] Unknown, Provider, Iman Cartagena, CELIA [address] [facility] [place] [address] Discharge Disposition: Home or Self Care Social [...] as of this encounter Discharge Diagnoses Diagnosis N92.6 Irregular menstruation, unspecified-N92.6[ICD-10-CM] documented in this encounter Medications at Time [...] filedocumented in this encounter Care Teams Chair Maker Relationship Specialty Start Date End Date Abdoulaye Gonzalez PCP - General 12/22/15 04/05/18 documented as of this encounter
--- OUTSIDE RECORDS SUMMARY | 2024-04-14 20:42 | XMS_ITS | Encounter Summary ---
Author Organization [facility] Address [address] [place] [address] Care Team Providers Care Chief Librarian Branch Or Department Name Role Phone Abdoulaye Gonzalez Primary Care Provider [phone] Reason for Visit * Reason Onset Date Comments Other 01/26/2016 Encounter Details Date Type Department Care Team (Late st Contact Info) Description 01/26/2016 Telephone [facility] Adult Primary Care - [address] [phone] Abdoulaye Gonzalez [address] [place] [phone] Other Social History Tobacco Use Types Packs/Day Years Used Date Smoking Tobacco: Former Cigarettes 0.3 10 0 01/02/2004 - 01/01/2014 Smokeless Tobacco: Never Alcohol Use Standard Drinks/Week Comments No 0 (1 standard drink = 0.6 oz pur e alcohol) Sex and Gender Information Value Date Recorded [...] Telephone Encounter - Diana Hawkins RN - 01/29/2016 1515 EDT Gladys does not need the note today as she is aware that LachelleDonald Gonzalez is not in now She will know tomorrow if she does so she will call back She is not anxious to go back to work but was asking what about the diarrhea she usually gets at least once or twice a month we did stress for now it has to be over two days before she can go back sowhen that happens she will let us know * Telephone Encounter - Stephanie Rehman - 01/29/2016 1444 EDT Patient asking for a note for [facility] stating that she is contagious and is not able to go into an appointment; patient will call back with fax information * Telephone Encounter - Abdoulaye Gonzalez - 01/29/2016 1421 EDT Yes, even if the diarrhea is slowing down or she's feeling better, she still needs to wait 48 hoursafter last bout of diarrhea before going back to work, especially b/c 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 I am glad to write this in a note if needed, though I can't imagine her employer would want her to come back if the diarrhea has not resolved. * Telephone Encounter - Diana Hawkins RN - 01/29/2016 1201 EDT Gladys has called back Her diarrhea is now about one a day She states she has always had diarrhea once or twice a week but this still feels different/much less painful and all but still does not feel she is ready to return to work. Not sure when she will if she is to have no diarrhea He son does not have any further diarrhea She was wanting to make sure the note will cover her fo work and she is aiming at end of week to return * Telephone Encounter - Diana Hawkins RN - 01/29/2016 1038 EDT Let Gladys know once her diarrhea has stopped she may return to work in 2 days. Mess left for her to callback with the stop date so a letter can be written for her to go back to work * Telephone Encounter - Abdoulaye Gonzalez - 01/29/2016 1018 EDT She should return to work 48 hours after diarrhea resolves. Glad to write a letter if needed. * Telephone Encounter - Diana Hawkins RN - 01/26/2016 1725 EDT Gladys is asking when she can return to work. I told her I did not know but she at least would need to have no more diarrhea/she still is so I will ask Cristo Gonzalez and will call her on Friday. She had some issue with work asking her what was wrong and we will discuss that further on Friday too. Please advise when she may return to work and she ill need a note for work again if she has to be out next week. * Telephone Encounter - Johana Cody - 01/26/2016 1548 EDT Reason for Call: Other Summary/Symptoms: Pt asking to discuss how long she will need to be out of workplace due to c-diff,call [phone] Onset and Duration? ?? Appointment Offered? na Johana Cody 01/26/2016 15:45 documented in this encounter Plan of Treatment [...] on filedocumented in this encounter Care Teams Chief Librarian Branch Or Department Relationship Specialty Start Date End Date Abdoulaye Gonzalez PCP - General 12/22/15 04/05/18 documented as of this encounter
--- OUTSIDE RECORDS SUMMARY | 2024-04-14 20:42 | XMS_ITS | Encounter Summary ---
Author Organization [facility] Address [address] [place] [address] Care Team Providers Care Follow Up Clerk Name Role Phone Abdoulaye Gonzalez Primary Care Provider [phone] Reason for Visit * Reason Onset Date Comments Appointment Related 01/04/2016 NPV - record s request Encounter Details Date Type Department Care Team (Late st Contact Info) Description 01/04/2016 Telephone [facility] Adult Primary Care - [address] [phone] Hetal Edouard LPN Appointment Related (NPV - records request) Social History Tobacco Use Types Packs/Day Years [...] Telephone Encounter - Hetal Edouard LPN - 01/04/2016 1351 EDT LMOM for pt to contact previous PCP and ask for her records to be sent to us so we me have them in advance of her NPV at the end of March. documented in this encounter Plan of Treatment [...] on filedocumented in this encounter Care Teams Follow Up Clerk Relationship Specialty Start Date End Date Abdoulaye Gonzalez PCP - General 12/22/15 04/05/18 documented as of this encounter
--- OUTSIDE RECORDS SUMMARY | 2024-04-14 20:42 | XMS_ITS | Encounter Summary ---
Author Organization [facility] Address [address] [place] [address] Care Team Providers Care Mapping Technician Name Role Phone Abdoulaye Gonzalez Primary Care Provider [phone] Reason for Visit * Reason Comments Flank Pain started yesterday - right side Diarrhea bad diarrhea for pas t 16 days Encounter Details Date Type Department Care Team (Late st Contact Info) Description 01/23/2016 16:15 EDT Office Visit [facility] - [address] [address] Abdoulaye Gonzalez [address] [place] [id number] Diarrhea (Primary Dx); Right lower quadrant abdominal pain; Flank pain Social History Tobacco Use Types Packs/Day [...] Sign Reading Time Taken Comments Blood Pressure 120/64 01/23/2016 1615 EDT Pulse 68 01/23/2016 1615 EDT Temperature 37.4 ??C (99.3 ??F) 01/23/2016 1615 EDT Respiratory Rate 16 01/23/2016 1615 EDT Oxygen Saturation - - Inhaled Oxygen Concentration - - Weight 90.7 kg (200 lb) 01/23/2016 1615 EDT Height 162.6 cm (5' 4) 01/23/2016 1615 EDT Body Mass Index 34.33 01/23/2016 1615 EDT documented in this encounter Functional Status [...] No 12/26/2015 documented as of this encounter Progress Notes * Abdoulaye Gonzalez - 01/25/2016 1454 EDT SUBJECTIVE: CC: Diarrhea, flank pain HPI: Gladys presents with concerns about diarrhea and flank pain. She has had frequent, very loose stools for more than 2 weeks. Often wakes a few times during the night and has to go to the bathroom immediately. Having at least 5 BMs per day, often more. Stool is brown, not particularly malodorous. No blood or mucus. Abd feels acutely crampy and achy constantly. Not relieved with defecation. Has tenesmus several times/day. No fever or chills. Does feel bloated and queasy. Appetite is poor. Has lost weight, unsure how much. son had diarrhea for 3 days when Gladys's sx first started, but stools then went back to normal. Drinks town water. No rural or foreign travel. Treated with Cipro after ureteral stent removal in mid december. [Had kidney stone and was then stented in early December.] Diarrhea started <2 weeks later. She has been taking max OTC dose of Imodium several times/day, with minimal improvement. Gladys also developed right-sided flank pain yesterday. Evaluated at ED, b/c she was concerned she might have another stone. KUB showed no stone, obstruction, or other abnormalities. Provider who evaluated her felt the pain was due to muscle spasm, and treated her with IV dilaudid; discharged home with flexeril. Flank pain is less pronounced today, but abd pain and diarrhea haven't improved. No hematuria, frequency, or fever. Patient Active Problem List Diagnosis ??? Endometriosis [...] ??? ALBUTEROL INHL Inhale as directed. ??? clindamycin (CLINDAGEL) 1 % gel Apply topically to affected areas on chest and back once daily.You can apply to face in the morning. Use thin film. 60 g 5 ??? cyclobenzaprine (FLEXERIL) 10 mg tablet Take 1 Tab by mouth 3 times daily as needed for Muscle Spasms. 20 Tab 0 ??? FLUTICASONE PROPIONATE (FLOVENT HFA INHALATION) Inhale as directed. ??? ibuprofen (MOTRIN) 800 mg tablet Take 600 mg by mouth 3 times daily. ??? montelukast (SINGULAIR) 10 mg tablet Take 1 Tab by mouth at bedtime 90 Tab 2 ??? oxybutynin (DITROPAN) 5 mg tablet Take 1 Tab by mouth 2 times daily as needed for up to 15 doses for Other (bladder spasm discomfort). 15 Tab 0 ??? propranolol (INDERAL) 10 mg tablet Take 20 mg by mouth daily. ??? spironolactone (ALDACTONE) 50 mg tablet Take 1 Tab by mouth 2 times daily for 90 days. 180 Tab 0 ??? tretinoin (RETIN-A) 0.025 % cream Apply topically to face at night. Apply sparingly. Do not apply immediately after washing, may sting. 20 g 5 ??? UNKNOWN TO PATIENT Oral control No current facility-administered medications on file prior to visit. OBJECTIVE: BP 120/64 mmHg Pulse 68 Temp(Src) 37.4 ??C (99.3 ??F) (Tympanic) Resp 16 Ht 162.6 cm (64) Wt 90.719 kg (200 lb) BMI 34.31 kg/m2 LMP 10/13/2015 (Approximate) Gen: Alert, overweight, appears uncomfortable Abd: Soft, moderately tender at McBurney's point, weakly +rebound tenderness, weakly +heel jar test. Bowel sounds somewhat hyperactive. Back: Mild right-sided CVA tenderness with percussion. ASSESSMENT and PLAN: Abd pain, diarrhea: Check stool culture, c diff, and giardia. Unable to do UA today; pt will return for this. If stool results normal, may order abd CT, given that she has some sx suggestive of appendicitis. Flank pain: Check UA in AM. Continue flexeril for now; try applying ice. documented in this encounter Plan of Treatment Not on file documented as of this encounter Goals Goal Patient Goal Type Associated Problems Recent Progress Patient-Stated? Author Blood Pressure < 130/80 Blood Pressure 118/78(2017 16:01 EDT) No Rina Agosto MD Weight Loss General Yes Rina Agosto MD Note: Goal = 145lbs documented as of this encounter Procedures Procedure Name Priority Date/Time Associated Diagnosis Comments OUTPATIENT ADD-ON Routine 01/23/2016 16: 51 EDT Right lower quadrant abdominal pain documented in this encounter Results * FECAL BACTERIAL PATHOGENS BY PCR (01/23/2016 20:03 EDT) Salmonella PCR No Salmonella spp. DNA detected 01/24/2016 14:44 EDT [facility] Shigella No Shigella spp. or Enteroinvasive E.coli DNA detected. 01/24/2016 14:44 EDT [facility] Campylobacter PCR No Campylobacter spp. (jejuni or coli) DNA detected. 01/24/2016 14:44 EDT [facility] Shiga Toxin PCR No Shiga toxin producing genes detected. 01/24/2016 14:44 EDT [facility] STOOL SPECIMEN / Unknown 01/23/2016 20:03 EDT 01/23/2016 20:03 EDT Abdoulaye Adie MICROBIOLOGY - GENER AL ORDERABLES Performing Organization Address [facility] Co de Phone Number [facility] [address] [place] [address] * (ABNORMAL) C. DIFFICILE PCR (01/23/2016 20:02 EDT) Specimen Description Feces 01/23/2016 20:01 EDT [facility] Result Positive( AA) 01/23/2016 23:10 EDT [facility] Stool specimen (specimen) TOPOGRAPHY UNKNOWN / Unknown 01/23/2016 20:02 EDT 01/23/2016 20:02 EDT Abdoulayelupe Gonzalez MICROBIOLOGY - GENER AL ORDERABLES Performing Organization Address [facility] Co de Phone Number [facility] [address] [place] [address] * GIARDIA ANTIGEN DETECTION (01/23/2016 20:01 EDT) Result No Giardia antigen detected. 01/24/2016 11:42 EDT [facility] Specimen of unknown material (specimen) STOOL SPECIMEN / Unknown 01/23/2016 20:01 EDT 01/23/2016 20:02 EDT Comment:Total fix vial submi tted Abdoulaye Adie MICROBIOLOGY - GENER AL ORDERABLES Performing Organization Address [facility] Co de Phone Number [facility] [address] [place] [address] * OUTPATIENT ADD-ON (01/23/2016 16:51 EDT) Tests to be added BLANK 01/23/2016 17:20 EDT [facility] Diagnosis Code SEE PRISM 01/23/2016 17:20 EDT [facility] Number for problems [id number] 01/23/2016 16:51 EDT [facility] Accession number UNABLE TO ADD ON NO TESTING SPECIFIED PER DR DE LEON DID NOT KNOW WHAT TO ORDER FOR TESTING WILL FOLLOW UP WITH AES ON [id number]/23/2016 17:20 EDT [facility] Acknowledge ABP Done 17:20 EDT [facility] BLOOD SPECIMEN / Unknown 01/23/2016 16:51 EDT 01/23/2016 17:19 EDT Abdoulaye Gonzalez HEMATOLOGY & PF4 ORD ERABLES [facility] [address] [place] [address] documented in this encounter Visit Diagnoses Diagnosis Diarrhea- Primary Right lower quadrant abdominal pain Abdominal pain, right lower quadrant Flank pain Abdominal pain, unspecified site documented in this encounter Care Teams Mapping Technician Relationship Specialty Start Date End Date Abdoulaye Gonzalez PCP - General 12/22/15 04/05/18 documented as of this encounter
--- OUTSIDE RECORDS SUMMARY | 2024-04-14 20:42 | XMS_ITS | Encounter Summary ---
Author Organization [facility] Address [address] [place] [address] Care Team Providers Care Cylindrical Mixer Name Role Phone Abdoulaye Gonzalez Primary Care Provider [phone] Reason for Visit * Reason Onset Date Comments Flank Pain 01/23/2016 Encounter Details Date Type Department Care Team (Late st Contact Info) Description 01/23/2016 Telephone [facility] Adult Primary Care - [address] [id number] Abdoulaye Gonzalez [address] [place] [id number] Flank Pain Social History Tobacco Use Types [...] Telephone Encounter - Diana Hawkins RN - 01/24/2016 0831 EDT Lab called to report a positive c-diff for Cristo Gonzalez aware As discussed I did alert her employer she would be out until further notice spoke to Abdelrahman euceda who took the message * Telephone Encounter - Diana Hawkins RN - 01/23/2016 1008 EDT Gladys is very upset that she was told there was nothing wrong with her except muscle pain when she went to the Ed last night She states she is in terrible pain and her is touching her kidney area and the pain is unbearable Did review all of her urine tests and other labs and she does not believe that her urine was normal/said they treated me like I was just seeking drugs see ED note She is taking flexeril 5 mg for what she states is muscle spasms she has taken in the past it is not helping Scheduled her to see Cristo Gonzalez at 4:15 and she wanted to have pain med's now I asked her to use a heating pad and use the advil/tylenol and if needed flexeril as Cristo Gonzalez will need to examine her and then determine what me if any is the best for her. * Telephone Encounter - Diana Hawkins RN - 01/23/2016 0944 EDT Left mess to call back Did review ED report where all of the test for kidney pain/stones/uti/films were negative for stoneor anything but muscle spasm which they did see and feel at point of pain * Telephone Encounter - Libia Locke - 01/23/2016 0828 EDT Reason for Call: Flank Pain Summary/Symptoms: Having right side kidney pain, went to ER yesterday Onset and Duration? yesterday Appointment Offered? Libia Locke 01/23/2016 8:28 documented in this encounter Plan of Treatment [...] on filedocumented in this encounter Care Teams Cylindrical Mixer Relationship Specialty Start Date End Date Abdoulaye Gonzalez PCP - General 12/22/15 04/05/18 documented as of this encounter
--- OUTSIDE RECORDS SUMMARY | 2024-04-14 20:42 | XMS_ITS | Encounter Summary ---
Author Organization [facility] Address [address] [place] [address] Care Team Providers Care Broke Beater Operator Name Role Phone MgAbdoulaye gusman Primary Care Provider Encounter Details Date Type Department Care Team (Late st Contact Info) Description 03/15/2016 Phlebotomy Only [facility] [address] [place] [address] Labor Relations Teacher, Outpatient Spotting between menses (Primary Dx) Social History Tobacco Use Types [...] No 12/26/2015 documented as of this encounter Plan of [...] Associated Diagnosis Comments QUANT BETA HCG, Routine 03/15/2016 16:29 EDT Spotting between menses documented in this encounter Results * HCG FOR (03/15/2016 16:29 EDT) Quant Beta HCG, Preg <5 <5 mIU/ml 03/15/2016 17:59 EDT [facility] Comment: Reference Range: Negative = <5 Indeterminate = 5-25 recommend repeat in 48 hours. Positive = >25 Blood specimen (specimen) BLOOD SPECIMEN / Unknown 03/15/2016 16:29 EDT 03/15/2016 16:50 EDT Abdoulaye Gonzalez CHEMISTRY & BLOOD GA S ORDERABLES [facility] [address] [place] [address] documented in this encounter Visit Diagnoses Diagnosis Spotting between menses- Primary Metrorrhagia documented in this encounter Care Teams Broke Beater Operator Relationship Specialty Start Date End Date Abdoulaye Gonzalez PCP - General 12/22/15 04/05/18 documented as of this encounter
--- OUTSIDE RECORDS SUMMARY | 2024-04-14 20:42 | XMS_ITS | Encounter Summary ---
Author Organization [facility] Address [address] [place] [address] Care Team Providers Care Commercial Relief Driver Name Role Phone Abdoulaye Gonzalez Primary Care Provider [phone] Reason for Visit * Reason Onset Date Comments Medications Refill 02/09/2016 Encounter Details Date Type Department Care Team (Late st Contact Info) Description 02/09/2016 Refill [facility] [address] [address] Rina Albert MD [address] [place] [address] Medications Refill Social History Tobacco Use Types [...] No 12/26/2015 documented as of this encounter Ordered Prescriptions Prescription Sig Dispensed Refills Start Date End Da te spironolactone (ALDACTONE) 50 mg tablet Take 1 Tab by mouth 2 times daily. 60 Tab 3 02/09/2016 02/20/2016 documented in this encounter Miscellaneous Notes * Telephone Encounter - Christine Elias - 02/09/2016 1305 EDT Medication: Spironolactone 50mg Diagnosis: Acne Last Office Visit: 08/28/15 Next Office Visit: 02/20/16 documented in this encounter Plan of Treatment [...] on filedocumented in this encounter Care Teams Commercial Relief Driver Relationship Specialty Start Date End Date Abdoulaye Gonzalez PCP - General 12/22/15 04/05/18 documented as of this encounter
--- OUTSIDE RECORDS SUMMARY | 2024-04-14 20:42 | XMS_ITS | Encounter Summary ---
Author Organization [facility] Address [address] [place] [address] Care Team Providers Care Teacher Aide Clerical Name Role Phone Abdoulaye Gonzalez Primary Care Provider [phone] Reason for Visit * Reason Comments Flank Pain pt to ed via ems, c/ o increased flank pain s/p stent removal around 2pm today. given fentanyl enroute, NAD. Encounter Details Date Type Department Care Team (Late st Contact Info) Description 12/26/2015 17:47 EDT - 12/26/2015 23:18 EDT Emergency [facility] Emergency Department - Main [address] [address] Rodri Baldwin, PA-C [address] [facility], Level [address] [place] [phone] Emergency, MD Jay Right flank pain (Primary Dx) Discharge Disposition: Home or Self [...] Sign Reading Time Taken Comments Blood Pressure 113/66 12/26/2015 2208 EDT Pulse 81 12/26/2015 2208 EDT Temperature 37 ??C (98.6 ??F) 12/26/2015 1751 EDT Respiratory Rate 20 12/26/2015 2208 EDT Oxygen Saturation 100% 12/26/2015 2208 EDT Inhaled Oxygen Concentration - - Weight 90.7 kg (200 lb) 12/26/2015 1751 EDT Height - - Body Mass Index 34.33 12/20/2015 1100 EDT documented in this encounter Functional Status [...] as of this encounter Discharge Diagnoses Diagnosis R10.9 Unspecified abdominal pain-R10.9[ICD-10-CM] Z98.89 Other specified postprocedural states-Z98.89[ICD-10-CM] Z87.442 Personal history of urinary calculi-Z87.442[ICD-10-CM] Z46.6 Encounter for fitting and adjustment of urinary device-Z46.6[ICD-10-CM] Z48.03 Encounter for change or removal of drains-Z48.03[ICD-10-CM] Z48.816 Encounter for surgical aftercare following surgery on the genitourinary system-Z48.816[ICD-10-CM] Z91.040 Latex allergy status-Z91.040[ICD-10-CM] Z88.6 Allergy status to analgesic agent status-Z88.6[ICD-10-CM] Z88.5 Allergy status to narcotic agent status-Z88.5[ICD-10-CM] Z87.891 Personal history of nicotine dependence-Z87.891[ICD-10-CM] J45.909 Unspecified asthma, uncomplicated-J45.909[ICD-10-CM] Z79.899 Other custodial (current) drug therapy-Z79.899[ICD-10-CM] documented in this encounter Discharge Instructions * Discharge Instructions* Rodri Baldwin PA - 12/26/2015 22:57 EDT Continue with current medications as directed by your urologist Drink plenty of fluids * Attachments The following attachments cannot be sent through Care Everywhere. * FLANK PAIN (CYMRO) documented in this encounter Medications at Time of Discharge Medication Sig Dispensed Refills Start Date End Date acetaminophen (TYLENOL) 325 mg tablet Take 325 mg by mouth every 6 hours. Reported on 12/20/2016 02/22/2017 ALBUTEROL INHL Inhale as directed as needed. Reported on 12/20/2016 02/27/2017 ciprofloxacin HCl (CIPRO) 500 mg tablet Take 1 Tab by mouth every 12 hours for 5 days. 10 Tab 0 12/21/2015 12/26/2015 clindamycin (CLINDAGEL) 1 % gel Apply topically to affected areas on chest and back once daily. You can apply to face in the morning. Use thin film. 60 g 5 05/30/2015 02/20/2016 FLUTICASONE PROPIONATE (FLOVENT HFA INHALATION) Inhale as directed. Reported on 11/04/2016 11/05/2016 HYDROmorphone (DILAUDID) 2 mg tablet Take 1-2 Tabs by mouth every 4 hours as needed for up to 3 days for Pain. Daily Max: 24 mg 36 Tab 0 12/23/2015 12/26/2015 ibuprofen (MOTRIN) 800 mg tablet Take 600 mg by mouth 3 times daily. 06/07/2016 montelukast (SINGULAIR) 10 mg tablet Take 1 Tab by mouth at bedtime 90 Tab 2 03/09/2015 11/05/2016 oxybutynin (DITROPAN) 5 mg tablet Take 1 Tab by mouth 2 times daily as needed for up to 15 doses for Other (bladder spasm discomfort). 15 Tab 0 12/22/2015 03/18/2016 propranolol (INDERAL) 10 mg tabletIndications:migr massiel prevention Take 20 mg by mouth daily. 06/07/2016 spironolactone (ALDACTONE) 50 mg tablet Take 1 Tab by mouth 2 times daily for 90 days. 180 Tab 0 11/07/2015 02/05/2016 tamsulosin (FLOMAX) 0.4 mg capsule Take 1 Cap by mouth daily for 14 days. 14 Cap 0 12/18/2015 01/01/2016 tretinoin (RETIN-A) 0.025 % cream Apply topically to face at night. Apply sparingly. Do not apply immediately after washing, may sting. 20 g 5 05/30/2015 02/20/2016 UNKNOWN TO PATIENT Oral control 03/2016 documented as of this encounter Discharge Disposition Disposition Code Departure Means Destination Home or Self Care Car Home documented in this encounter ED Notes * Rodri Baldwin PA - 12/26/20152112 EDT DOS: 12/26/2015 Chief Complaint Patient presents with ??? Flank Pain pt to ed via ems, c/o increased flank pain s/p stent removal around 2pm today. given fentanyl enroute, NAD. HPI The patient is a 25 y.o. female who presents today with Flank Pain HPI Comments: 25-year-old female presents with complaints of right flank pain. Patient had a stent removed this afternoon and developed severe right flank pain 1.5 hours later. Patient states she hashad nausea and 2 episodes of vomiting. She reports chills and dysuria. Pain is constant and she states she took 2 tablets of Dilaudid with little relief. Pain is currently 6/10. Pain radiates toward the right side of her abdomen. Patient had a stent placed on 12/20, with ureteral stone and extraction at that time. Stent was removed today. The history is provided by the patient. Flank Pain Associated symptoms: chills, dysuria, nausea and vomiting Associated symptoms: no fever and no hematuria Review of Systems Review of Systems Constitutional: Positive for chills. Negative for fever. Gastrointestinal: Positive for nausea, vomiting and abdominal pain. Genitourinary: Positive for dysuria and flank pain. Negative for hematuria. All other systems reviewed and are negative. The patient's past medical, family and social history was reviewed and updated as needed. Allergies Allergen Reactions ??? Adhesive Rash ??? Latex, Natural Rubber Rash ??? Morphine Nausea And Vomiting Morphine caused patient to feel very aggressive ??? Tramadol Nausea Only Dizziness Vital Signs Temp: 37 ??C (98.6 ??F) Temp src: Temporal Pulse: 81 Resp: 20 SpO2: 100 % BP: 113/66 mmHg BP Device: BP Machine Patient Position: Semi fowlers Physical Exam Constitutional: She is oriented to person, place, and time. She appears well- developed and well-nourished. She does not appear ill. No distress. HENT: Head: Atraumatic. Eyes: EOM are normal. Neck: Normal range of motion. Cardiovascular: Normal rate, regular rhythm and normal heart sounds. Pulmonary/Chest: Effort normal and breath sounds normal. No respiratory distress. Abdominal: Soft. There is no tenderness. There is CVA tenderness (right). There is no rebound and no guarding. Neurological: She is alert and oriented to person, place, and time. She has normal strength. Skin: Skin is warm and dry. She is not diaphoretic. Psychiatric: She has a normal mood and affect. Her behavior is normal. Nursing note and vitals reviewed. RESULTS EKG orders: None Radiology orders: None ED Lab Results Labs Reviewed BASIC METABOLIC PANEL - Abnormal CO2 23 (*) Final Sodium 139 Final Potassium 4.4 Final Chloride 101 Final BUN 11 Final Creatinine 0.72 Final GFR, Calculated 117 Final Calcium 9.4 Final Calculated Calcium 9.6 Final Glucose, Serum 90 Final Fasting? Unknown Final HEMAGRAM AND DIFFERENTIAL - Abnormal WBC 14.34 (*) Final ABS Neutrophils 10.33 (*) Final ABS Monocytes 0.85 (*) Final ABS Immature Grans 0.07 (*) Final RBC 4.76 Final Hemoglobin 13.0 Final HCT 38.8 Final MCV 82 Final MCH 27.3 Final MCHC 33.5 Final RDW-CV 13.0 Final RDW-SD 38.7 Final PLT 336 Final MPV 10.8 Final Neutrophils 72.0 Final Lymphocytes 20.4 Final Monocytes 5.9 Final Eosinophils 0.9 Final Basophils 0.3 Final Immature Grans 0.5 Final ABS Lymphs 2.92 Final ABS Eosinophils 0.13 Final ABS Basophils 0.04 Final Type of Diff: Automated Final POCT URINE DIPSTICK - Abnormal Ketones Trace (*) Final Blood 3+ (*) Final Protein 3+ (*) Final Color YELLOW Final Clarity, UA Clear Final Glucose Neg Final Bilirubin Neg Final Specific [place] >=1.030 Final pH 5.5 Final Urobilinogen 0.2 Final Nitrite Neg Final Leuk Esterase Neg Final Tech ID [id number] Final Procedures ED COURSE A medical screening exam was performed. Patient presents with right flank pain. Had ureteral stent removed earlier today, developed pain roughly 2 hours afterward. Pain well controlled with hydromorphone and Toradol. No evidence of infection on urine dipstick. Pain 1/10, patient feels ready for discharge. She was given return precautions. ASSESSMENT AND PLAN Final diagnoses: Right flank pain DISPOSITION: Discharged The patient's pain was managed to an adequate level weighing risk vs. benefit of further medications. Upon departure from the Emergency Department, the patient's pain was 1 on a zero to ten scale. Condition at departure from the Emergency Department: Stable PCP: Abdoulaye Gonzalez MDM Number of Diagnoses or Management Options Right flank pain: Amount and/or Complexity of Data Reviewed Clinical lab tests: ordered and reviewed Review and summarize past medical records: yes Discuss the patient with other providers: yes (Urology resident ) Amelie Moya was consulted and agrees with treatment plan. 12/28/2015 15:11 No flowsheet data found. documented in this [...] Associated Diagnosis Comments POCT URINE DIPSTICK, CLINITEK STAT 12/26/2015 22:01 EDT COMPLETE BLOOD COUNT AND DIFFERENTIAL STAT 12/26/2015 21:20 EDT BASIC METABOLIC PANEL (BMP) STAT 12/26/2015 21:20 EDT documented in this encounter Results * (ABNORMAL) POCT URINE DIPSTICK (12/26/2015 22:01 EDT) Color YELLOW 12/26/2015 22:02 [facility] Clarity, UA Clear 12/26/2015 22:02 [facility] Glucose Neg Neg 12/26/2015 22:02 [facility] Bilirubin Neg Neg 12/26/2015 22:02 [facility] Ketones Trace(A) Neg 12/26/2015 22:02 [facility] Specific [place] >=1.030 1.001 - 1.035 12/26/2015 22:02 [facility] Blood 3+(A) Neg 12/26/2015 22:02 [facility] pH 5.5 4.6 - 8.0 12/26/2015 22:02 [facility] Protein 3+(A) Neg 12/26/2015 22:02 [facility] Urobilinogen 0.2 0.2 - 1.0 E.U./dl 12/26/2015 22:02 [facility] Nitrite Neg Neg 12/26/2015 22:02 [facility] Leuk Esterase Neg Neg 12/26/2015 22:02 [facility] farm or ranch animal caretaker ID [id number] 12/26/2015 22:02 [facility] Comment:Test performed at Em ergency Department Urine specimen (specimen) URINE / Unknown 12/26/2015 22:01 EDT 12/26/2015 22:02 EDT Rodri Baldwin PA-C POINT OF CARE TEST O RDERABLES [facility] [address] [place] [address] * (ABNORMAL) HEMAGRAM AND DIFFERENTIAL (12/26/2015 21:20 EDT) WBC 14.34(H) 4.0 - 12.4 K/cmm 12/26/2015 21:42 [facility] RBC 4.76 3.86 - 5.04 M/cmm 12/26/2015 21:42 [facility] Hemoglobin 13.0 11.6 - 15.2 gm/dl 12/26/2015 21:42 [facility] HCT 38.8 34.9 - 44.4 % 12/26/2015 21:42 [facility] MCV 82 81 - 98 fl 12/26/2015 21:42 [facility] MCH 27.3 26.7 - 33.3 pg 12/26/2015 21:42 [facility] MCHC 33.5 32.1 - 35.9 gm/dl 12/26/2015 21:42 [facility] RDW-CV 13.0 11.7 - 14.6 % 12/26/2015 21:42 [facility] RDW-SD 38.7 37.6 - 50.3 fl 12/26/2015 21:42 [facility] PLT 336 141 - 377 K/replaced by [facility] 12/26/2015 21:42 [facility] MPV 10.8 9.5 - 12.7 fl 12/26/2015 21:42 [facility] % Neutrophils 72.0 % 12/26/2015 21:42 [facility] % Lymphocytes 20.4 % 12/26/2015 21:42 [facility] % Monocytes 5.9 % 12/26/2015 21:42 [facility] % Eosinophils 0.9 % 12/26/2015 21:42 [facility] % Basophils 0.3 % 12/26/2015 21:42 [facility] % Immature Grans 0.5 % 12/26/2015 21:42 [facility] ABS Neutrophils 10.33(H) 2.20 - 8.85 K/cm 12/26/2015 21:42 [facility] ABS Lymphs 2.92 1.09 - 3.30 K/cm 12/26/2015 21:42 [facility] ABS Monocytes 0.85(H) 0.1 - 0.8 K/cm 12/26/2015 21:42 [facility] ABS Eosinophils 0.13 0.03 - 0.61 K/cmm 12/26/2015 21:42 [facility] ABS Basophils 0.04 0.01 - 0.11 K/cm 12/26/2015 21:42 [facility] ABS Immature Grans 0.07(H) 0 - 0.06 K/cm 12/26/2015 21:42 [facility] Type of Diff: Automated 12/26/2015 21:42 [facility] Blood specimen (specimen) BLOOD SPECIMEN / Unknown 12/26/2015 21:20 EDT 12/26/2015 21:34 EDT Rodri Baldwin PA-C PACKAGES & DNA PROBE ORDERABLES [facility] [address] [place] [address] * (ABNORMAL) BASIC METABOLIC PANEL (12/26/2015 21:20 EDT) Sodium 139 136 - 145 mEq/L 12/26/2015 21:56 [facility] Potassium 4.4 3.5 - 5.0 mEq/L 12/26/2015 21:56 [facility] Chloride 101 96 - 110 mEq/L 12/26/2015 21:56 [facility] CO2 23(L) 24 - 32 mEq/L 12/26/2015 21:56 [facility] BUN 11 10 - 26 mg/dl 12/26/2015 21:56 [facility] Creatinine 0.72 0.52 - 1.04 mg/dl 12/26/2015 21:56 [facility] GFR, Calculated 117 >60 ml/min/1.7 3m2 12/26/2015 21:56 [facility] Comment: eGFR calculated using CKD-EPI equation for non Americans. Multiply eGFR by 1.16 for Americans. Calcium 9.4 8.5 - 10.5 mg/dl 12/26/2015 21:56 [facility] Calculated Calcium 9.6 8.5 - 10.5 mg/dl 12/26/2015 21:56 EDT [facility] Glucose, Serum 90 70 - 100 mg/dl 12/26/2015 21:56 EDT [facility] Fasting? Unknown 12/26/2015 21:34 EDT [facility] Blood specimen (specimen) BLOOD SPECIMEN / Unknown 12/26/2015 21:20 EDT 12/26/2015 21:34 EDT Rodri Baldwin PA-C CHEMISTRY & BLOOD GA S ORDERABLES [facility] [address] [place] [address] documented in this encounter Visit Diagnoses Diagnosis Right flank pain- Primary Abdominal pain, unspecified site documented in this encounter Administered Medications Inactive Administered Medications - up to 3 most recent administrations Medication Order MAR Action Action Date Dose Rate Site HYDROmorphone (PF) (DILAUDID) 1 mg/mL injection 1 mg 1 mg, intravenous, NOW X1, 1 dose, On Fri12/26/15 at 2115, STAT Given 12/26/2015 21:52 EDT 1 mg ketOROLAC (TORADOL) injection 15 mg 15 mg, intravenous, NOW X1, 1 dose, On Fri12/26/15 at 2215, STAT Given 12/26/2015 22:28 EDT 15 mg ondansetron (PF) (ZOFRAN) injection 4 mg 4 mg, intravenous, NOW X1, 1 dose, On Fri12/26/15 at 2115, STAT Given 12/26/2015 21:52 EDT 4 mg tamsulosin (FLOMAX) capsule 0.4 mg 0.4 mg, oral, DAILY, First dose on Fri12/26/15 at 2215, Until Discontinued, STAT Given 12/26/2015 22:28 EDT 0.4 mg documented in this encounter Active and Recently Administered Medications Times are shown in EDT. Scheduled Medication Order 12/24/2015 12/25/2015 12/26/2015 HYDROmorphone (PF) (DILAUDID) 1 mg/mL injection 1 mg (COMPLETED) 1 mg, intravenous, NOW X1, 1 dose, On Fri12/26/15 at 2115, STAT 2152 (Given - Provid er: Chaim Villarreal RN) ketOROLAC (TORADOL) injection 15 mg (COMPLETED) 15 mg, intravenous, NOW X1, 1 dose, On Fri12/26/15 at 2215, STAT 2228 (Given - Provid er: Chaim Villarreal RN) ondansetron (PF) (ZOFRAN) injection 4 mg (COMPLETED) 4 mg, intravenous, NOW X1, 1 dose, On Fri12/26/15 at 2115, STAT 2152 (Given - Provid er: Chaim Villarreal RN) tamsulosin (FLOMAX) capsule 0.4 mg (CANCELED) 0.4 mg, oral, DAILY, First dose on Fri12/26/15 at 2215, Until Discontinued, STAT 8 (Given - Provid er: Chaim Villarreal RN) documented in this encounter Care Teams Teacher Aide Clerical Relationship Specialty Start Date End Date Abdoulaye Gonzalez PCP - General 12/22/15 04/05/18 documented as of this encounter
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
--- OUTSIDE RECORDS SUMMARY | 2024-04-14 20:42 | XMS_ITS | Encounter Summary ---
Author Organization [facility] Address [address] [place] [address] Care Team Providers Care Data Integrity Analyst Name Role Phone Abdoulaye Gonzalez Primary Care Provider Reason for Visit * Reason Onset Date Comments Medication Management 02/23/2016 Encounter Details Date Type Department Care Team (Late st Contact Info) Description 02/23/2016 Telephone [facility] Primary Care - [address] [phone] Abdoulaye Gonzalez [address] [place] [phone] Medication Management Social History Tobacco Use Types [...] Telephone Encounter - Diana Hawkins RN - 02/23/2016 1155 EDT Gladys is able to verbalize well that she needs to stop the inderal if she is . If she wants she can stop without taper She may choose not to use while she is attempting to get but cannot use it if she is positive she is . She will think about this and call if she needs more advice * Telephone Encounter - Dayna Barrett MD - 02/23/2016 1138 EDT She should stop the propranolol if she is , it is a category C Ok to stop with out taper at her dose * Telephone Encounter - Diana Hawkins RN - 02/23/2016 1103 EDT Gladys is trying to get but is asking if she could continue the inderal she was given bya previous provider but we do not have records to review We do have her signed document where it was sent to her old pcp's office to send us her records butfor some reason they have not/she is in [place] and will go there now to have them fax the note now She was put on that med inderal for migraine headache relief . Will send to Dr. Barrett to find out if she can continue to use that as they are currently hoping to have a confirmed by end of the month Do you have any information for her * Telephone Encounter - Libia Locke - 02/23/2016 1029 EDT Reason for Call: Medication Management Summary/Symptoms: Would like to discuss meds would like to get Onset and Duration? Appointment Offered? Libia Locke 02/23/2016 10:29 documented in this encounter Plan of Treatment [...] filedocumented in this encounter Care Teams Data Integrity Analyst Relationship Specialty Start Date End Date MgAlverto gusmantin PCP - General 12/22/15 04/05/18 documented as of this encounter
--- OUTSIDE RECORDS SUMMARY | 2024-04-14 20:42 | XMS_ITS | Encounter Summary ---
Author Organization [facility] Address [address] [place] [address] Care Team Providers Care Inclusion Intern Name Role Phone Abdoulaye Gonzalez Primary Care Provider [phone] Reason for Visit * Reason Onset Date Comments Pain 01/22/2016 Back pain severe where her kidney is Encounter Details Date Type Department Care Team (Late st Contact Info) Description 01/22/2016 Telephone [facility] Urology - [facility] [address] [place], [place] [phone] Porfirio Vee MD [address] [facility] [place] [address] Pain (Back pain severe where her kidney is) Social History Tobacco Use Types Packs/Day Years [...] encounter Miscellaneous Notes * Telephone Encounter - Lucretia Long, RN - 01/22/2016 1353 EDT The patient is being evaluated in the ED at this time. Musculoskeletal pain in nature per MD notes.Follow up on 02-21-16 * Telephone Encounter - Janelle Contreras - 01/22/2016 1112 EDT Pt calling states that she is having severe pain where her kidneys are, advised pt to go to the ED.Please call. documented in this encounter Plan of Treatment [...] on filedocumented in this encounter Care Teams Inclusion Intern Relationship Specialty Start Date End Date Abdoulaye Gonzalez PCP - General 12/22/15 04/05/18 documented as of this encounter
--- OUTSIDE RECORDS SUMMARY | 2024-04-14 20:42 | XMS_ITS | Encounter Summary ---
Author Organization [facility] Address [address] [place] [address] Care Team Providers Care Malthouse Laborer Name Role Phone Abdoulaye Gonzalez Primary Care Provider [phone] Reason for Visit * Reason Onset Date Comments Results 01/24/2016 Encounter Details Date Type Department Care Team (Late st Contact Info) Description 01/24/2016 Telephone [facility] Adult Primary Care - [address] [phone] Abdoulaye Gonzalez [address] [place] [phone] Results Social History Tobacco Use Types Packs/Day [...] Dispensed Refills Start Date End Da te metroNIDAZOLE (FLAGYL) 500 mg tablet Take 1 Tab by mouth 3 times daily for 14 days. 42 Tab 0 01/24/2016 2016 documented in this encounter Miscellaneous Notes * Telephone Encounter - Abdoulaye Gonzalez - 01/26/2016 1424 EDT Spoke with Gladys. She has started metronidazole as directed. Still having diarrhea, but far lessfrequently. Belly pain is improving. Advised her to call if she doesn't have complete resolution of sx after 14 days of abx. Asked if son should be tested and/or treated, since he has had diarrhea a few times in past 2 days.Recommended that she bring him to [employer] [facility]. * Telephone Encounter - Diana Hawkins, RN - 01/24/2016 1553 EDT Sent to Shankar Gonzalez since she did try to reach Gladys earlier * Telephone Encounter - Libia Locke - 01/24/2016 1551 EDT Would like to discuss test results * Telephone Encounter - Abdoulaye Gonzalez - 01/24/2016 1355 EDT Checked ED note after Gladys discharged, doesn't appear that she was treated for c diff. Called pt, no answer on cell phone. Voicemail didn't identify her, so called , who affirmed that she wasn't treated in ED for c diff. Will send metronidazole script to pharmacy, and try calling Gladys again later. * Telephone Encounter - Abdoulaye Gonzalez - 01/24/2016 0825 EDT Stool test positive for c diff. Pt is currently in ED after episode of vaginal bleeding. Called triage nurse in ED to alert providers there to test result. documented in this encounter Plan of Treatment [...] on filedocumented in this encounter Care Teams Malthouse Laborer Relationship Specialty Start Date End Date Abdoulaye Gonzalez PCP - General 12/22/15 04/05/18 documented as of this encounter
--- OUTSIDE RECORDS SUMMARY | 2024-04-14 20:42 | XMS_ITS | Encounter Summary ---
Author Organization [facility] Address [address] [place] [address] Care Team Providers Care Drier Feeder Name Role Phone Abdoulaye Gonzalez Primary Care Provider [phone] Reason for Visit * Reason Onset Date Comments Follow-up 12/26/2015 Encounter Details Date Type Department Care Team (Late st Contact Info) Description 12/26/2015 Telephone [facility]rology - [facility] [address] [place] [address] Janay Tellez RN Follow-up Social History Tobacco Use Types Packs/Day [...] encounter Miscellaneous Notes * Telephone Encounter - Janay Tellez RN - 12/27/2015 1124 EDT TC to patient who reports she is feeling better since she went to the ED last night. States she is still a little sore but pain is at a tolerable level. Patient urinating without difficulty. Patient advised to call the office back if pain does not continue to improve, or if she develops a fever/chills, or difficulty urinating. * Telephone Encounter - Janay Tellez RN - 12/26/2015 1647 EDT TC received from patient who reports she is experiencing 10/10 right kidney pain. She had a stent removed earlier today in the office. Patient denies a fever/chills. She states she has not urinated since her stent removal. She has taken two dilaudid with no relief in pain. Discussed with Dr. Vee who recommended patient go to the ED. TC to patient, relayed message to with positive understanding. documented in this encounter Plan of Treatment [...] on filedocumented in this encounter Care Teams Drier Feeder Relationship Specialty Start Date End Date Abdoulaye Gonzalez PCP - General 12/22/15 04/05/18 documented as of this encounter
--- OUTSIDE RECORDS SUMMARY | 2024-04-14 20:42 | XMS_ITS | Encounter Summary ---
Author Organization [facility] Address [address] [place] [address] Care Team Providers Care Risk And Compliance Analytics Director Name Role Phone Abdoulaye Gonzalez Primary Care Provider [phone] Reason for Visit * Reason Onset Date Comments Medications Refill 01/05/2016 Encounter Details Date Type Department Care Team (Late st Contact Info) Description 01/05/2016 Refill [facility] Adult Primary Care - [address] [phone] Abdoulaye Gonzalez [address] [place] [phone] Medications Refill Social History Tobacco Use Types [...] Telephone Encounter - Diana Hawkins RN - 01/10/2016 1310 EDT Did let Jose Angel know why we do not wish to fill scripts She was able to verbalize understanding of why Asked her to calland let us know if this is not going to happen however if not we will need to get some records sent kevin so we know why she is on these and fit her in for a visit to address this issue only Gladys will call back if she is not successful in getting her scripts filled from previous provider She was not upset she was not aware that is the policy when a patient transferes/her previous office did not tell her that * Telephone Encounter - Abdoulaye Gonzalez - 01/09/2016 1718 EDT I am not currently scheduled to see this patient until March. Her previous PCP (who I understood to be in [place]?) should be able to order refills. If not, I'd like her to schedule a brief OV withme in the next few days.. * Telephone Encounter - Diana Hawkins RN - 01/05/2016 1604 EDT She is a new patient here. For some reason Luz IBARRA refused to fill did you wish to? * Telephone Encounter - Tricia Ruth - 01/05/2016 1417 EDT Medication(s) Requested: SINGULAIR, PAXIL 20MG [facility]acy: [facility] Last Refill Date: 03/09/15, 06/29/15 Last Visit Date: UPCOMING ONLY Next Visit Date: 04/09/2016 Is patient out of medication? unknown Tricia Ruth 01/05/2016 14:17 documented in this encounter Plan of Treatment Not on file documented as of this encounter Goals Goal Patient Goal Type Associated Problems Recent Progress Patient-Stated? Author Blood Pressure < 130/80 Blood Pressure 118/78(2017 16:01 EDT) No Rina Agosto MD Weight Loss General Yes Rina Agosto MD Note: Goal = 145lbs documented as of this encounter Visit Diagnoses Diagnosis Anxiety- Primary Anxiety state, unspecified documented in this encounter Care Teams Risk And Compliance Analytics Director Relationship Specialty Start Date End Date Abdoulaye Gonzalez PCP - General 12/22/15 04/05/18 documented as of this encounter
--- OUTSIDE RECORDS SUMMARY | 2024-04-14 20:42 | XMS_ITS | Encounter Summary ---
Author Organization [facility] Address [address] [place] [address] Care Team Providers Care Prepress Manager Name Role Phone Abdoulaye Gonzalez Primary Care Provider [phone] Fiordaliza Hurt MD Primary Care Provider [phone] Unknown, Provider Primary Care Provider [phone] Reason for Visit * Reason Onset Date Comments Results 01/23/2016 Encounter Details Date Type Department Care Team (Late st Contact Info) Description 01/23/[address] [facility] Urgent Care - [address] [phone] Urgent Care, Hu Physician, Results Social History Tobacco Use Types Packs/Day [...] on filedocumented in this encounter Care Teams Prepress Manager Relationship Specialty Start Date End Date Abdoulaye Gonzalez PCP - General 12/22/15 04/05/18 Fiordaliza Hurt MD PCP - General 04/06/18 08/16/19 Unknown, MD Melinda PCP - General 05/09/21 documented as of this encounter
--- OUTSIDE RECORDS SUMMARY | 2024-04-14 20:42 | XMS_ITS | Encounter Summary ---
Author Organization [facility] Address [address] [place] [address] Care Team Providers Care Mobile Mechanic Name Role Phone MgAbdoulaye gusman Primary Care Provider [phone] Reason for Visit * Reason Comments Flank Pain Encounter Details Date Type Department Care Team (Late st Contact Info) Description 01/22/2016 11:57 EDT - 01/22/2016 13:46 EDT Hospital Encounter [facility] - [address] [address] Jovan Anton [address] [place] [phone] Muscle spasm of back (Primary Dx); Abdominal pain, unspecified abdominal location Discharge Disposition: Home or Self Care Social [...] Sign Reading Time Taken Comments Blood Pressure 138/87 01/22/2016 1159 EDT Pulse 77 01/22/2016 1159 EDT Temperature 36.9 ??C (98.4 ??F) 01/22/2016 1159 EDT Respiratory Rate 16 01/22/2016 1159 EDT Oxygen Saturation - - Inhaled Oxygen [...] as of this encounter Discharge Diagnoses Diagnosis M62.830 Muscle spasm of back-M62.830[ICD-10-CM] documented in this encounter Discharge Instructions * Attachments The following attachments cannot be sent through Care Everywhere. * BACK PAIN (MALTESE) documented in this encounter Medications at Time of Discharge Medication Sig Dispensed Refills Start Date End Date acetaminophen (TYLENOL) 325 mg tablet Take 325 mg by mouth every 6 hours. Reported on 12/20/2016 02/22/2017 ALBUTEROL INHL Inhale as directed as needed. Reported on 12/20/2016 02/27/2017 clindamycin (CLINDAGEL) 1 % gel Apply topically to affected areas on chest and back once daily. You can apply to face in the morning. Use thin film. 60 g 5 05/30/2015 02/20/2016 cyclobenzaprine (FLEXERIL) 10 mg tablet Take 1 Tab by mouth 3 times daily as needed for Muscle Spasms. 20 Tab 0 01/22/2016 03/18/2016 FLUTICASONE PROPIONATE (FLOVENT HFA INHALATION) Inhale as [...] 90 days. 180 Tab 0 11/07/2015 02/05/2016 tretinoin (RETIN-A) 0.025 % cream Apply topically [...] needed for Muscle Spasms. 20 Tab 0 01/22/2016 03/18/2016 documented in this encounter Discharge Disposition Disposition Code Departure Means Destination Home or Self Care documented in this encounter ED Notes * Bia Lei RN - 01/22/2016 1307 EDT Pt resting comfortably and in no acute distress S/P medication administration. No adverse reactions. Call haile within reach. * Bia Lei RN - 01/22/2016 1307 EDT Pt name and verified prior to medication administration. Pt instructed on use, side effects andadverse reactions. Call haile within reach. Pt notified to pull call haile with any changes. Bia Lei RN * Bia Lei RN - 01/22/2016 1307 EDT Blood drawn via saline lock using aseptic technique and sent to lab per protocol. Line flushed without complication. * [facility] Jovan Petty, [employer] - 01/22/2016 1225 EDT DOS: 01/22/2016 Chief Complaint Patient presents with ??? Flank Pain The patient is a 25 y.o. female who presents today with Flank Pain The patient resents for evaluation of right flank pain. The patient rates this pain as 8/10. The patient states that this began approximately 2 hours prior to arrival while at work. The patient has ahistory of kidney stones and she reports that this is similar to her prior episodes. The patient describes the pain as pressure and stabbing. Nothing she is done makes this better or worse. There is no radiation of her pain. She denies dysuria, back pain, and abdominal pain. The patient does not recall any trauma. The history is provided by the patient and the spouse. Flank Pain Pain location: R flank Pain quality: pressure and stabbing Pain quality: not aching, not bloating, not burning, not cramping, not dull, no fullness, not gnawing, not heavy, not sharp, not shooting, not squeezing, no stiffness, not tearing, not throbbing and not tugging Pain radiates to: Does not radiate Pain severity: Severe Onset quality: Sudden Duration: 2 hours Timing: Constant Progression: Worsening Chronicity: Recurrent Context: not alcohol use, not awakening from sleep, not diet changes, not eating, not laxative use,not medication withdrawal, not previous surgeries, not recent illness, not recent sexual activity, not recent travel, not retching, not sick contacts, not suspicious food intake and not trauma Relieved by: None tried Worsened by: Nothing tried Ineffective treatments: None tried Associated symptoms: no anorexia, no belching, no chest pain, no chills, no constipation, no cough,no diarrhea, no dysuria, no fatigue, no fever, no flatus, no hematemesis, no hematochezia, no hematuria, no melena, no nausea, no shortness of breath, no sore throat, no vaginal bleeding, no vaginal discharge and no vomiting Risk factors: no alcohol abuse, no aspirin use, not elderly, has not had multiple surgeries, no NSAID use, not obese, not and no recent hospitalization Review of Systems Constitutional: Negative for fever, chills and fatigue. HENT: Negative for sore throat. Respiratory: Negative for cough and shortness of breath. Cardiovascular: Negative for chest pain. Gastrointestinal: Negative for nausea, vomiting, diarrhea, constipation, melena, hematochezia, anorexia, flatus and hematemesis. Genitourinary: Positive for flank pain. Negative for dysuria, frequency, hematuria, vaginal bleeding, vaginal discharge and difficulty urinating. Musculoskeletal: Negative for myalgias, arthralgias and neck pain. Skin: Negative for color change, pallor, rash and wound. Neurological: Negative for dizziness, weakness, light-headedness, numbness and headaches. All other systems reviewed and are negative. Current Facility-Administered Medications Medication Dose Route Frequency Provider Last Rate Last Dose ??? HYDROmorphone (PF) (DILAUDID) 1 mg/mL injection 0.2 mg 0.2 mg intravenous Now Jovan Dale NP ??? sodium chloride 0.9 % BOLUS 1,000 mL 1,000 mL intravenous Now Jovan Dale NP Current Outpatient Prescriptions Medication Sig Dispense [...] OCD Sister ??? Bipolar Disorder Sister BP 138/87 mmHg Pulse 77 Temp(Src) 98.4 ??F (36.9 ??C) Resp 16 Physical Exam Constitutional: She is oriented to person, place, and time. She appears well- developed and well-nourished. No distress. HENT: Head: Normocephalic and atraumatic. Right Ear: External ear normal. Left Ear: External ear normal. Nose: Nose normal. Mouth/Throat: Oropharynx is clear and moist. Eyes: Conjunctivae and EOM are normal. Pupils are equal, round, and reactive to light. Right eye exhibits no discharge. Left eye exhibits no discharge. No scleral icterus. Neck: Normal range of motion. Neck supple. No JVD present. No tracheal deviation present. Cardiovascular: Normal rate, regular rhythm, normal heart sounds and intact distal pulses. Exam reveals no gallop and no friction rub. No murmur heard. Pulmonary/Chest: Effort normal and breath sounds normal. No stridor. No respiratory distress. She has no wheezes. She has no rales. She exhibits no tenderness. Abdominal: Soft. Bowel sounds are normal. She exhibits no distension and no mass. There is no tenderness. There is no rebound, no guarding and no CVA tenderness (Right-sided). There is tenderness to palpation of the right paraspinous region. Muscle spasm is present. Musculoskeletal: Normal range of motion. She exhibits no edema or tenderness. Muscle spasm is palpable in the right paraspinous region. Lymphadenopathy: She has no cervical adenopathy. Neurological: She is alert and oriented to person, place, and time. She has normal reflexes. She displays normal reflexes. No cranial nerve deficit. She exhibits normal muscle tone. Coordination normal. Skin: Skin is warm and dry. No rash noted. She is not diaphoretic. No erythema. No pallor. Psychiatric: She has a normal mood and affect. Her behavior is normal. Judgment and thought contentnormal. Nursing note and vitals reviewed. Consult orders: None PCP: Abdoulaye Gonzalez No results found for this visit on 01/22/16. ABDOMEN AP 1 VIEW (Results Pending) Radiology orders: ABDOMEN AP 1 VIEW Imaging Results None No orders to display Procedures Course: A medical screening exam was performed. Disposition: No disposition on file The patient's pain was managed to an adequate level weighing risk vs. benefit of further medications. Upon departure from [facility], the patient's pain was 2 on a zero to ten scale. Condition at departure from the [facility] : Stable Final diagnoses: Abdominal pain, unspecified abdominal location Dr. Bo Ward was available for consultation during my care of this patient. [facility] 01/22/2016 12:25 12:29: Will place an IV and hydrate the patient with IV fluids. Dilaudid 1 mg IV has been ordered. As the patient has recently received a CAT scan for kidney stones and her symptoms are consistent with such, I will obtain a KUB film. Laboratory studies pending. 13:28: The patient is resting comfortably on the stretcher texting on her cell phone. The patient continues to have muscle spasm and pain on palpation of the right paraspinous region. The patient's urinalysis shows no blood. There is no kidney stone visible on KUB. We'll plan to treat the patient for musculoskeletal pain with Flexeril. The patient's follow-up with her primary care provider in 2 days forrecheck of symptoms. The patient is to return to urgent care or go to the emergency department should she have severe pain, blood in her urine, uncontrollable nausea/vomiting, inability to walk, or any other new or concerning symptoms. The patient verbalized understanding of this plan as well as agreement. * Lena Magdaleno RN - 01/22/2016 1219 EDT Pt aware of UPT being done. * Lena Magdaleno RN - 01/22/2016 1215 EDT Pt presents with c/o right sided flank pain onset approx 2 hours ago. Reports diarrhea for the lastweek (last episode this AM). +urgency. Poor appetite-but eating and drinking normally. Denies hematuria, dysuria, n/v, fever. Reports Hx kidney stones. documented in this encounter Plan of Treatment [...] Diagnosis Comments ABDOMEN AP 1 VIEW STAT 01/22/2016 13: 23 EDT TEST, URINE STAT 01/22/2016 12:40 EDT Abdominal pain, unspecified abdominal location POCT URINE DIPSTICK, CLINITEK STAT 01/22/2016 12:40 EDT Abdominal pain, unspecified abdominal location COMPLETE BLOOD COUNT AND DIFFERENTIAL STAT 01/22/2016 12:29 EDT Abdominal pain, unspecified abdominal location BASIC METABOLIC PANEL (BMP) STAT 01/22/2016 12:29 EDT Abdominal pain, unspecified abdominal location documented in this encounter Results * ABDOMEN AP 1 VIEW (01/22/2016 13:23 EDT) Anatomical Region Laterality Modality Other 01/22/2016 13:2 3 EDT 01/22/2016 13:42 EDT Narrative 01/22/2016 13:42 EDT ABDOMEN AP 1 VIEW ??01/22/2016 1:23 PM Clinical History/Comments: ABDOMINAL PAIN. Findings: ?? Frontal view abdomen. There is no evidence of small or large bowel obstruction. No free intra-abdominal air is seen. No abnormal calcifications are seen. ?? . Procedure Note Benitez Servin MD - 01/22/2016 ABDOMEN AP 1 VIEW 01/22/2016 1:23 PM Clinical History/Comments: ABDOMINAL PAIN. Findings: Frontal view abdomen. There is no evidence of small or large bowel obstruction. No free intra-abdominal air is seen. No abnormal calcifications are seen. . Jovan Urbanise [facility] ORDERABLES * TEST, URINE (01/22/2016 12:40 EDT) Result- Test, Ur Neg Neg 01/22/2016 13:07 EDT [facility] Comment: NOTE: False negative results may occur in women who are beyond 5-8 weeks gestation. Diagnosis of should be based on a correlation of test results with typical clinical signs and symptoms. Performed at [facility], [place], [place] Urine specimen (specimen) URINE / Unknown 01/22/2016 12:40 EDT 01/22/2016 13:00 EDT Jovan Anton URINALYSIS ORDERABLE S [facility] [address] [place] [address] * POCT URINE DIPSTICK (01/22/2016 12:40 EDT) Color YELLOW 01/22/2016 12:48 T [facility] Clarity, UA Clear 01/22/2016 12:48 [facility] Glucose Neg Neg 01/22/2016 12:48 [facility] Bilirubin Neg Neg 01/22/2016 12:48 [facility] Ketones Neg Neg 01/22/2016 12:48 [facility] Specific [place] >=1.030 1.001 - 1.035 01/22/2016 12:48 [facility] Blood Neg Neg 01/22/2016 12:48 [facility] pH 5.5 4.6 - 8.0 01/22/2016 12:48 [facility] Protein Neg Neg 01/22/2016 12:48 [facility] Urobilinogen 0.2 0.2 - 1.0 E.U./dl 01/22/2016 12:48 [facility] Nitrite Neg Neg 01/22/2016 12:48 [facility] Leuk Esterase Neg Neg 01/22/2016 12:48 [facility] county attorney ID [id number] 01/22/2016 12:48 [facility] Comment:Test performed at [facility] in [facility] Urine specimen (specimen) URINE / Unknown 01/22/2016 12:40 EDT 01/22/2016 12:48 EDT Jovan Anton POINT OF CARE TEST O RDERABLES Performing Organization Address City/[facility]/ZIP Co de Phone Number [facility] [address] [place] [address] * (ABNORMAL) BASIC METABOLIC PANEL (01/22/2016 12:29 EDT) Sodium 142 136 - 145 mEq/L 01/22/2016 13:19 [facility] Potassium 4.6 3.5 - 5.0 mEq/L 01/22/2016 13:23 [facility] Chloride 106 96 - 110 mEq/L 01/22/2016 13:19 [facility] CO2 20(L) 24 - 32 mEq/L 01/22/2016 13:19 [facility] BUN 6(L) 10 - 26 mg/dl 01/22/2016 13:19 [facility] Creatinine 0.70 0.52 - 1.04 mg/dl 01/22/2016 13:19 [facility] GFR, Calculated 121 >60 ml/min/1.7 3m2 01/22/2016 13:19 [facility] Comment: eGFR calculated using CKD-EPI equation for non Americans. Multiply eGFR by 1.16 for Americans. Calcium 9.3 8.5 - 10.5 mg/dl 01/22/2016 13:19 [facility] Calculated Calcium 9.5 8.5 - 10.5 mg/dl 01/22/2016 13:19 [facility] Glucose, Serum 74 70 - 100 mg/dl 01/22/2016 13:19 [facility] Fasting? Unknown 01/22/2016 12:53 [facility] Comment:[facility] [place], [place] Blood specimen (specimen) BLOOD SPECIMEN / Unknown 01/22/2016 12:29 EDT 01/22/2016 12:53 EDT Jovan Anton CHEMISTRY & BLOOD GA S ORDERABLES Performing Organization Address City/[facility]/ZIP Co de Phone Number [facility] [address] [place] [address] * HEMAGRAM AND DIFFERENTIAL (01/22/2016 12:29 EDT) WBC 8.06 4.0 - 12.4 K/cmm 01/22/2016 13:14 [facility] RBC 4.78 3.86 - 5.04 M/cmm 01/22/2016 13:14 [facility] Hemoglobin 13.6 11.6 - 15.2 gm/dl 01/22/2016 13:14 [facility] HCT 38.9 34.9 - 44.4 % 01/22/2016 13:14 [facility] MCV 81 81 - 98 fl 01/22/2016 13:14 [facility] MCH 28.5 26.7 - 33.3 pg 01/22/2016 13:14 [facility] MCHC 35.0 32.1 - 35.9 gm/dl 01/22/2016 13:14 [facility] RDW-CV 13.1 11.7 - 14.6 % 01/22/2016 13:14 [facility] RDW-SD 38.2 37.6 - 50.3 fl 01/22/2016 13:14 [facility] PLT 287 141 - 377 K/cmm 01/22/2016 13:14 [facility] MPV 11.4 9.5 - 12.7 fl 01/22/2016 13:14 [facility] % Neutrophils 56.0 % 01/22/2016 13:14 [facility] % Lymphocytes 32.3 % 01/22/2016 13:14 [facility] % Monocytes 9.6 % 01/22/2016 13:14 [facility] % Eosinophils 1.7 % 01/22/2016 13:14 [facility] % Basophils 0.4 % 01/22/2016 13:14 [facility] ABS Neutrophils 4.52 2.20 - 8.85 K/cmm 01/22/2016 13:14 EDT [facility] ABS Lymphs 2.60 1.09 - 3.30 K/cmm 01/22/2016 13:14 EDT [facility] ABS Monocytes 0.77 0.1 - 0.8 K/cm 01/22/2016 13:14 EDT [facility] ABS Eosinophils 0.14 0.03 - 0.61 K/cm 01/22/2016 13:14 EDT [facility] ABS Basophils 0.03 0.01 - 0.11 K/[facility] 01/22/2016 13:14 EDT [facility] Type of Diff: Automated 01/22/2016 13:14 T [facility] Comment:Performed at [facility] [place], [place] Blood specimen (specimen) BLOOD SPECIMEN / Unknown 01/22/2016 12:29 EDT 01/22/2016 12:53 EDT Jovan Anton PACKAGES & DNA PROBE ORDERABLES Performing Organization Address City/State/[facility] Co de Phone Number [facility] [address] [place] [address] documented in this encounter Visit Diagnoses Diagnosis Muscle spasm of back- Primary Other symptoms referable to back Abdominal pain, unspecified abdominal location documented in this encounter Administered Medications Inactive Administered Medications - up to 3 most recent administrations Medication Order MAR Action Action Date Dose Rate Site HYDROmorphone (PF) (DILAUDID) 1 mg/mL injection 1 mg 1 mg, intravenous, NOW X1, 1 dose, On Fri01/22/16 at 1245, Routine Given 01/22/2016 12:46 EDT 1 mg sodium chloride 0.9 % BOLUS 1,000 mL 1,000 mL, intravenous, NOW X1, 1 dose, On Fri01/22/16 at 1230, Routine New Bag 01/22/2016 12:46 EDT 1,000 mL documented in this encounter Active and Recently Administered Medications Times are shown in EDT. Scheduled Medication Order 01/20/2016 01/21/2016 01/22/2016 HYDROmorphone (PF) (DILAUDID) 1 mg/mL injection 1 mg (COMPLETED) 1 mg, intravenous, NOW X1, 1 dose, On Fri01/22/16 at 1245, Routine 1246 (Given - Provid er: Bia Lei, STACEY) sodium chloride 0.9 % BOLUS 1,000 mL (COMPLETED) 1,000 mL, intravenous, NOW X1, 1 dose, On Fri01/22/16 at 1230, Routine 1246 (New Bag - Prov ider: Bia Lei RN) documented in this encounter Orders Medications Ordered That Jean ht Not Have Been Administered Count Last Ordered Date First Ordered Date HYDROmorphone (PF) (DILAUDID ) 1 mg/mL injection 0.2 mg 1 01/22/2016 Nursing Count Last Ordered Date First Orde red Date INSERT PERIPHERAL IV 1 01/22/2016 documented in this encounter Care Teams Mobile Mechanic Relationship Specialty Start Date End Date Abdoulaye Gonzalez PCP - General 12/22/15 04/05/18 documented as of this encounter
--- OUTSIDE RECORDS SUMMARY | 2024-04-14 20:42 | XMS_ITS | Encounter Summary ---
Author Organization [facility] Address [address] [place] [id number] Care Team Providers Care Cinder Pitman Name Role Phone Carlos Abdoulaye Primary Care Provider [phone] Reason for Visit * Reason Comments Fever Encounter Details Date Type Department Care Team (Latest Contact Info) Description 12/22/2015 15:47 EDT - 12/22/2015 18:20 EDT Hospital Encounter [facility] - [address] [address] Luh Kaur MD [address] [place] [phone] Unknown, ProviderMD Post-procedural fever (Primary Dx); Bladder spasms Discharge Disposition: Home or Self Care Social [...] Sign Reading Time Taken Comments Blood Pressure 130/78 12/22/2015 1603 EDT Pulse 97 12/22/2015 1603 EDT Temperature 37.1 ??C (98.8 ??F) 12/22/2015 1603 EDT Respiratory Rate 14 12/22/2015 1603 EDT Oxygen Saturation - - Inhaled Oxygen [...] as of this encounter Discharge Instructions * Discharge Instructions* Luh Kaur - 12/22/2015 18:11 EDT Feeling that you need to urinate all the time is caused by bladder spasms from stent irritation. This feeling should gradually pass within the next few days. You may take Ditropan as needed for the bladder spasms. Monitor your temperature at home. If your temperature is greater than 101, call your urologist. If your symptoms become worse you may return to the urgent care for reevaluation. documented in this encounter Medications at Time [...] spasm discomfort). 15 Tab 0 12/22/2015 03/18/2016 oxyCODONE (ROXICODONE) 5 mg immediate release tablet Take 1 Tab by mouth every 4 hours as needed for Pain. Daily Max: 30 mg 8 Tab 0 12/21/2015 12/23/2015 propranolol (INDERAL) 10 mg tabletIndications:migr massiel prevention [...] Dispensed Refills Start Date End Da te oxybutynin (DITROPAN) 5 mg tablet Take 1 Tab by mouth 2 times daily as needed for up to 15 doses for Other (bladder spasm discomfort). 15 Tab 0 12/22/2015 03/18/2016 documented in this encounter Discharge Disposition Disposition Code Departure Means Destination Home or Self Care Walk-out Home documented in this encounter ED Notes * Vandana Oleary, RN - 12/22/2015 2240 EDT Patient c/o itchiness around IV site. This nurse changed the dressing to paper tape, gave icepack for comfort. * Vandana Oleary RN - 12/22/2015 1727 EDT Pt requested to take her oxycodone as prescribed for her post-operative recovery. Okay'd per MD Brian. * Vandana Oleary RN - 12/22/2015 1725 EDT Post-void bladder scan 33mL. Luh Kaur MD notified. * Vandana Lee RN - 12/22/2015 1719 EDT Patient up to restroom, given warm blankets. * Luh Kaur - 12/22/2015 1719 EDT DOS: 12/22/2015 Chief Complaint Patient presents with ??? Fever The patient is a 25 y.o. female who presents today with Fever HPI Comments: Had a 4 mm right ureterovesical stone removed intraoperatively on 12/20. She was started on Cipro postop. Discharged home yesterday. Today she has felt feverish and chilled. Her highest recorded temperature at home was 100.1. She has also had urinary urgency, frequency, some dysuria, gross hematuria and strangury. Review of systems is negative otherwise. The history is provided by the patient. Fever Max temp prior to arrival: 100.1 Severity: Mild Onset quality: Gradual Duration: 1 day Timing: Intermittent Progression: Waxing and waning Chronicity: New Worsened by: Nothing tried Ineffective treatments: None tried Associated symptoms: chills and dysuria Associated symptoms: no chest pain, no congestion, no cough, no diarrhea, no ear pain, no headaches, no nausea, no rash, no rhinorrhea, no sore throat and no vomiting Risk factors: recent surgery Risk factors: no sick contacts Review of Systems Constitutional: Positive for fever, chills and appetite change. HENT: Negative for congestion, ear pain, rhinorrhea and sore throat. Respiratory: Negative for cough. Cardiovascular: Negative for chest pain and leg swelling. Gastrointestinal: Negative for nausea, vomiting, abdominal pain and diarrhea. Genitourinary: Positive for dysuria, urgency and hematuria. Negative for flank pain and pelvic pain. Skin: Negative for rash. Neurological: Negative for light-headedness and headaches. Hematological: Negative for adenopathy. No current facility-administered medications for this encounter. [...] (bladder spasm discomfort). 15 Tab 0 ??? oxyCODONE (ROXICODONE) 5 mg immediate release tablet Take 1 Tab by mouth every 4 hours as needed for Pain. Daily Max: 30 mg 8 Tab 0 ??? propranolol (INDERAL) 10 mg [...] OCD Sister ??? Bipolar Disorder Sister BP 130/78 mmHg Pulse 97 Temp(Src) 98.8 ??F (37.1 ??C) (Tympanic) Resp 14 Physical Exam Constitutional: She is oriented to person, place, and time. She appears well- developed and well-nourished. No distress. Shaking chills. HENT: Head: Normocephalic and atraumatic. Right Ear: External ear normal. Left Ear: External ear normal. Nose: Nose normal. Mouth/Throat: Uvula is midline and oropharynx is clear and moist. Mucous membranes are dry. No oropharyngeal exudate. Eyes: Conjunctivae are normal. Pupils are equal, round, and reactive to light. Right eye exhibits no discharge. Left eye exhibits no discharge. No scleral icterus. Neck: Normal range of motion. Neck supple. Cardiovascular: Normal rate, regular rhythm, normal heart sounds and intact distal pulses. No murmur heard. Pulmonary/Chest: Effort normal and breath sounds normal. Abdominal: Soft. Bowel sounds are normal. She exhibits no mass. There is no tenderness. There is noCVA tenderness. No hernia. Musculoskeletal: She exhibits no edema. Lymphadenopathy: She has no cervical adenopathy. Neurological: [...] or performed during the hospital encounter of 12/22/15 URINE MICROSCOPIC ONLY Result Value Ref Range WBC, UA 10 to 50 0 - 5 /HPF RBC, UA Innum 0 - 5 /HPF Squam Epithel, UA None seen None seen /HPF Renal Epithel, UA None seen None seen /HPF Bacteria, UA None seen None seen /HPF Crystals, UA None seen /HPF Casts, UA None seen /LPF UA Comment Microscopic results Mucus, UA Present HEMAGRAM AND DIFFERENTIAL Result Value Ref Range WBC 13.79 (H) 4.0 - 12.4 K/cmm RBC 4.29 3.86 - 5.04 M/cmm Hemoglobin 12.1 11.6 - 15.2 gm/dl HCT 35.2 34.9 - 44.4 % MCV 82 81 - 98 fl MCH 28.2 26.7 - 33.3 pg MCHC 34.4 32.1 - 35.9 gm/dl RDW-CV 13.6 11.7 - 14.6 % RDW-SD 39.0 37.6 - 50.3 fl PLT 283 141 - 377 K/cmm MPV 10.6 9.5 - 12.7 fl Neutrophils 67.4 % Lymphocytes 25.5 % Monocytes 6.5 % Eosinophils 0.4 % Basophils 0.2 % ABS Neutrophils 9.30 (H) 2.20 - 8.85 K/cmm ABS Lymphs 3.51 (H) 1.09 - 3.30 K/cmm ABS Monocytes 0.90 (H) 0.1 - 0.8 K/cmm ABS Eosinophils 0.05 0.03 - 0.61 K/cmm ABS Basophils 0.03 0.01 - 0.11 K/cmm Type of Diff: Automated BASIC METABOLIC PANEL Result Value Ref Range Sodium 137 136 - 145 mEq/L Potassium 4.2 3.5 - 5.0 mEq/L Chloride 102 96 - 110 mEq/L CO2 23 (L) 24 - 32 mEq/L BUN 8 (L) 10 - 26 mg/dl Creatinine 0.80 0.52 - 1.04 mg/dl GFR, Calculated 103 >60 ml/min/1.73m2 Calcium 8.8 8.5 - 10.5 mg/dl Calculated Calcium 9.5 8.5 - 10.5 mg/dl Glucose, Serum 103 (H) 70 - 100 mg/dl Fasting? Unknown ED/URGENT CARE ADD-ON Result Value Ref Range Tests to be added URINE CULTURE Number for problems [id number] (URGENT CARE) No orders to display Radiology orders: None Imaging Results None No orders to display Procedures Course: Postop day 1 after a right ureteral stent was placed by urology after removal of a right UV junction stone. Has recorded a Tmax of 100.1 at home today. Experiencing urgency and stranguria. Discussed her symptoms and findings with Dr. Crane, the urologist on-call. She feels that they are due to bladder irritation from the stent. She has recommendedDitropan and Pyridium. I have offered both medications to the patient, but she is not experiencing significant urinary burning and only desires a prescription for Ditropan. Return for reevaluation if symptoms are worse. Follow-up with urology as needed. A medical screening exam was performed. Disposition: Discharged The patient's pain was managed to an adequate level weighing risk vs. benefit of further medications. Upon departure from [facility], the patient's pain was 0 on a zero to ten scale. Condition at departure from the [facility] : Stable Final diagnoses: Bladder spasms - S/P ureteral stent No supervision required. [facility] 12/22/2015 18:14 * Ashly Guerra RN - 12/22/2015 1713 EDT Blood drawn via saline lock per protocol, tiger and purple tube(s) sent to lab per order. * Ashly Guerra RN - 12/22/2015 1618 EDT Pt had surgery for kidney stone removal in right urethra with stent placement yesterday, now c/o ofintermittent fevers (100.1 today) even on acetaminophen and ibuprofen, feeling like she has to urinate lots but only urinates decreased amount and slight discomfort in urethra area. Reports hematuriabut no pain. Pt urinating.Taking oxycodone. Surgeon's office recommending bladder scan. * Vandana Lee RN - 12/22/2015 1606 EDT Urine dip not performed due to gross hematuria, sent for micro. documented in this encounter Plan of Treatment Not on file documented as of this encounter Goals Goal Patient Goal Type Associated Problems Recent Progress Patient-Stated? Author Blood Pressure < 130/80 Blood Pressure 118/78(2017 16:01 EDT) No Rina Agosto MD Weight Loss General Yes Rina Agosto MD Note: Goal = 145lbs documented as of this encounter Procedures Procedure Name Priority Date/Time Associated Diagnosis Comments ED/URGENT CARE ADD-ON STAT 12/22/2015 17:50 EDT Post-procedural fever COMPLETE BLOOD COUNT AND DIFFERENTIAL STAT 12/22/2015 16:56 EDT Post-procedural fever BASIC METABOLIC PANEL (BMP) STAT 12/22/2015 16:56 EDT Post-procedural fever URINE SEDIMENT (MICRO) WITHOUT REFLEX TO CULTURE STAT 12/22/2015 15:55 EDT Post-procedural fever BACTERIAL CULTURE, URINE Routine 12/22/2015 15:55 EDT documented in this encounter Results * ED/URGENT CARE ADD-ON (12/22/2015 17:50 EDT) Tests to be added URINE CULTURE 12/22/2015 17:45 EDT [facility] Number for problems [id number] (URGENT CARE) 12/22/2015 17:45 EDT [facility] Comment:Performed at [place], [place] TOPOGRAPHY UNKNOWN / Unknown 12/22/2015 17:50 EDT 12/22/2015 17:55 EDT Luh Kaur MD HEMATOLOGY & PF4 ORD ERABLES [facility] [address] [place] [address] * (ABNORMAL) BASIC METABOLIC PANEL (12/22/2015 16:56 EDT) Sodium 137 136 - 145 mEq/L 12/22/2015 17:36 T [facility] Potassium 4.2 3.5 - 5.0 mEq/L 12/22/2015 17:36 [facility] Chloride 102 96 - 110 mEq/L 12/22/2015 17:36 [facility] CO2 23(L) 24 - 32 mEq/L 12/22/2015 17:36 [facility] BUN 8(L) 10 - 26 mg/dl 12/22/2015 17:36 [facility] Creatinine 0.80 0.52 - 1.04 mg/dl 12/22/2015 17:36 T [facility] GFR, Calculated 103 >60 ml/min/1.7 3m2 12/22/2015 17:36 [facility] Comment: eGFR calculated using CKD-EPI equation for non Americans. Multiply eGFR by 1.16 for Americans. Calcium 8.8 8.5 - 10.5 mg/dl 12/22/2015 17:36 [facility] Calculated Calcium 9.5 8.5 - 10.5 mg/dl 12/22/2015 17:36 [facility] Glucose, Serum 103(H) 70 - 100 mg/dl 12/22/2015 17:36 [facility] Fasting? Unknown 12/22/2015 17:13 [facility] Comment:Performed at [facility], [place], [place] Blood specimen (specimen) BLOOD SPECIMEN / Unknown 12/22/2015 16:56 EDT 12/22/2015 17:13 EDT Luh Kaur MD CHEMISTRY & BLOOD GA S ORDERABLES Performing Organization Address City/State/[facility] Co de Phone Number [facility] [address] [place] [address] * (ABNORMAL) HEMAGRAM AND DIFFERENTIAL (12/22/2015 16:56 EDT) WBC 13.79(H) 4.0 - 12.4 K/cmm 12/22/2015 17:31 [facility] Comment:Sample retested, res ult confirmed RBC 4.29 3.86 - 5.04 M/cmm 12/22/2015 17:31 [facility] Hemoglobin 12.1 11.6 - 15.2 gm/dl 12/22/2015 17:31 [facility] HCT 35.2 34.9 - 44.4 % 12/22/2015 17:31 [facility] MCV 82 81 - 98 fl 12/22/2015 17:31 [facility] MCH 28.2 26.7 - 33.3 pg 12/22/2015 17:31 [facility] MCHC 34.4 32.1 - 35.9 gm/dl 12/22/2015 17:31 [facility] RDW-CV 13.6 11.7 - 14.6 % 12/22/2015 17:31 [facility] RDW-SD 39.0 37.6 - 50.3 fl 12/22/2015 17:31 [facility] PLT 283 141 - 377 K/cmm 12/22/2015 17:31 [facility] MPV 10.6 9.5 - 12.7 fl 12/22/2015 17:31 [facility] % Neutrophils 67.4 % 12/22/2015 17:31 [facility] % Lymphocytes 25.5 % 12/22/2015 17:31 [facility] % Monocytes 6.5 % 12/22/2015 17:31 [facility] % Eosinophils 0.4 % 12/22/2015 17:31 [facility] % Basophils 0.2 % 12/22/2015 17:31 [facility] ABS Neutrophils 9.30(H) 2.20 - 8.85 K/cmm 12/22/2015 17:31 [facility] ABS Lymphs 3.51(H) 1.09 - 3.30 K/cmm 12/22/2015 17:31 [facility] ABS Monocytes 0.90(H) 0.1 - 0.8 K/cmm 12/22/2015 17:31 [facility] ABS Eosinophils 0.05 0.03 - 0.61 K/cmm 12/22/2015 17:31 [facility] ABS Basophils 0.03 0.01 - 0.11 K/cmm 12/22/2015 17:31 [facility] Type of Diff: Automated 12/22/2015 17:31 [facility] Comment:Performed at [facility] [place], [place] Blood specimen (specimen) BLOOD SPECIMEN / Unknown 12/22/2015 16:56 EDT 12/22/2015 17:13 EDT Luh Kaur MD PACKAGES & DNA PROBE ORDERABLES [facility] [address] [place] [address] * BACTERIAL CULTURE, URINE (12/22/2015 15:55 EDT) Result No growth 12/24/2015 8:06 EDT [facility] URINE / Unknown 12/22/2015 1 5:55 EDT 12/22/2015 17:56 EDT Comment:Performed at [place], [place] Luh Kaur MD MICROBIOLOGY - GENER AL ORDERABLES Performing Organization Address City/[facility]/ZIP Co de Phone Number [facility] [address] [place] [address] * URINE MICROSCOPIC ONLY (12/22/2015 15:55 EDT) WBC, UA 10 to 50 0 - 5 /HPF 12/22/2015 16:13 EDT [facility] RBC, UA Innum 0 - 5 /HPF 12/22/2015 16:13 [facility] Squam Epithel, UA None seen None seen /HPF 12/22/2015 16:13 [facility] Renal Epithel, UA None seen None seen /HPF 12/22/2015 16:13 [facility] Bacteria, UA None seen None seen /HPF 12/22/2015 16:13 [facility] Crystals, UA None seen /HPF 12/22/2015 16:13 [facility] Hyaline Casts, UA None seen /LPF 12/22/2015 16:13 [facility] UA Comment Microscopic results 12/22/2015 15:53 [facility] Comment: are unreliable on urines unrefrig >2hrs or refrig >8hrs. Mucus, UA Present 12/22/2015 16:13 [facility] Comment:Performed at [place], [place] Urine specimen (specimen) URINE / Unknown 12/22/2015 15:55 EDT 12/22/2015 15:59 EDT Bo Ward MD URINALYSIS ORD ERABLES [facility] [address] [place] [address] documented in this encounter Visit Diagnoses Diagnosis Post-procedural fever- Primary Bladder spasms Other specified disorders of bladder documented in this encounter Historical Medications * This list may reflect changes made after this encounter. Medication Sig Dispensed Refills Start Date End Date ALBUTEROL INHL Inhale as directed as needed. Reported on 12/20/2016 02/27/2017 FLUTICASONE PROPIONATE (FLOVENT HFA INHALATION) Inhale as directed. Reported on 11/04/2016 11/05/2016 UNKNOWN TO PATIENT Oral control 03/2016 added in this encounter Orders Nursing Count Last Ordered Date First Orde red Date INSERT SALINE LOCK 1 12/22/2015 documented in this encounter Care Teams Cinder Pitman Relationship Specialty Start Date End Date Abdoulaye Gonzalez PCP - General 12/22/15 04/05/18 documented as of this encounter
--- OUTSIDE RECORDS SUMMARY | 2024-04-14 20:42 | XMS_ITS | Encounter Summary ---
Author Organization [facility] Address [address] [place] [address] Care Team Providers Care Associate Professor Of Economics Name Role Phone Abdoulaye Gonzalez Primary Care Provider [phone] Reason for Visit * Reason Onset Date Comments Update 12/22/2015 Stint placed, st one removed 12/20. Pt experencing cold chills, body aches. Temp 99.5 Encounter Details Date Type Department Care Team (Late st Contact Info) Description 12/22/2015 Telephone [facility] Urology - [facility] [address] [place], [place] [id number] Porfirio Vee MD [address] [facility], [address] [place] [address] Update (Stint placed, stone removed 12/20. Pt experencing cold chills, body aches. Temp 99.5) Social History Tobacco Use Types Packs/Day Years [...] No 12/20/2015 documented as of this encounter Miscellaneous Notes * Telephone Encounter - Cassidy Chavez RN - 12/22/2015 1607 EDT TC to pt. Pt thought she had a fever this morning and took her temperature. Temperature is 98.9. Ptis taking Ciprofloxacin every 12 hours and percocet every 4 hours. In between the percocet pt is taking tylenol. Pt temperature increased to 101 and is currently in the UC to evaluated. Pt will call back to office if further assistance is needed after UC. Pt understands. * Telephone Encounter - Juan West - 12/22/2015 1234 EDT Reason for Call: Update Summary/Symptoms: Stint placed, stone removed 12/20. Pt experencing cold chills, body aches. Temp 99.5 Juan West 12/22/2015 12:34 documented in this encounter Plan of Treatment [...] on filedocumented in this encounter Care Teams Associate Professor Of Economics Relationship Specialty Start Date End Date MgAbdoulaye gusman PCP - General 12/22/15 04/05/18 documented as of this encounter
--- OUTSIDE RECORDS SUMMARY | 2024-04-14 20:42 | XMS_ITS | Encounter Summary ---
Author Organization [facility] Address [address] [place] [address] Care Team Providers Care Bullet Slugs Inspector Name Role Phone Abdoulaye Gonzalez Primary Care Provider [phone] Reason for Visit * Reason Comments Abdominal Pain Patient states she b vidal having lower abdominal pain two days ago. States she was seen by primary care yesterday. States this morning she woke up with pain and vaginal bleeding, states something came out of her and she not sure what it is.. Vaginal Bleeding Encounter Details Date Type Department Care Team (Late st Contact Info) Description 01/24/2016 6:17 EDT - 01/24/2016 11:17 EDT Emergency [facility] Emergency Department - Main [place] [address], [place] [id number] Samir Farr MD [address] [facility], Level [address] [place] [address] Emergency, MD Jay Vaginal bleeding (Primary Dx) Discharge Disposition: Home or Self [...] Sign Reading Time Taken Comments Blood Pressure 122/68 01/24/2016 1016 EDT Pulse 86 01/24/2016 1016 EDT Temperature 36.8 ??C (98.2 ??F) 01/24/2016 1016 EDT Respiratory Rate 15 01/24/2016 1016 EDT Oxygen Saturation 100% 01/24/2016 1016 EDT Inhaled Oxygen Concentration - - Weight 90.7 kg (200 lb) 01/24/2016626 EDT Height 162.6 cm (5' 4) 01/24/2016626 EDT Body Mass Index 34.33 01/24/2016626 EDT documented in this encounter Functional Status [...] 12/26/2015 documented as of this encounter Discharge Instructions * Discharge Instructions* Samir Farr PA - 01/24/2016 11:09 EDT Rest, drink plenty of fluids. You may have Tylenol (up to 1000 mg every 6 hours) for pain. You may have Zofran as needed for nausea. Follow-up with your Manual Control Auger Press Operator if symptoms persist or worsen. You will be called with results of your vaginal cultures. If your pain is not controlled, if you feel faint or pass out, or if any other concerns arise, please return to the ED for further evaluation. * Attachments The following attachments cannot be sent through Care Everywhere. * AUB (ABNORMAL UTERINE BLEEDING) ([place]DI[place]) documented in this encounter Medications at Time [...] hours as needed for Nausea. 10 Tab 0 01/24/2016 03/25/2016 oxybutynin (DITROPAN) 5 mg tablet Take 1 Tab by mouth 2 times daily as needed for up to 15 doses for Other (bladder spasm discomfort). 15 Tab 0 12/22/2015 03/18/2016 propranolol (INDERAL) 10 mg tabletIndications:migrai ne prevention [...] Refills Start Date End Da te ondansetron (ZOFRAN-ODT) 4 mg disintegrating tablet Take 1 Tab by mouth every 8 hours as needed for Nausea. 10 Tab 0 01/24/2016 03/25/2016 documented in this encounter Discharge Disposition Disposition Code Departure Means Destination Home or Self Care Car Home documented in this encounter ED Notes * Kirby Chopra RN - 01/24/2016 0706 EDT Blood drawn via saline lock per protocol, tiger and purple tube(s) sent to lab per order. * Samir Farr PA - 01/24/2016 0651 EDT DOS: 01/24/2016 Chief Complaint Patient presents with ??? Abdominal Pain Patient states she began having lower abdominal pain two days ago. States she was seen by primary care yesterday. States this morning she woke up with pain and vaginal bleeding, states something came out of her and she not sure what it is.. ??? Vaginal Bleeding HPI The patient is a 25 y.o. female who presents today with Abdominal Pain and Vaginal Bleeding HPI Comments: 25-year-old female with history of endometriosis and normal presents today with 24 hours of acute vaginal bleeding with right lower quadrant abdominal pain. Patient states that she has been nauseous but did not vomit. Her primary care provider yesterday who did a stool sample that did not show any acute abnormalities. Patient states she woke up this morning and passed a large blood clot from her vagina. Patient took Tylenol and ibuprofen to alleviate her current 2 out of10 lower abdominal discomfort. Patient states he has been eating and drinking at home and denies any fevers or chills. States she is sexually active and her last menstrual period was more than 2 months ago. She denies any chance of being however. Patient states they have otherwise been healthy denying any headache, lightheadedness, dizziness, cough, ear pain, eye pain, fever, chills, nausea, vomiting, neck pain, back pain, chest pain, shortness of breath, dysuria or difficulty ambulating. Abdominal Pain Associated symptoms: nausea and vaginal bleeding Associated symptoms: no chest pain, no chills, no constipation, no diarrhea, no dysuria, no fever, no shortness of breath, no vaginal discharge and no vomiting Vaginal Bleeding Associated symptoms: abdominal pain and nausea Associated symptoms: no back pain, no dysuria, no fever and no vaginal discharge Review of Systems Review of Systems Constitutional: Negative for fever and chills. Eyes: Negative for visual disturbance. Respiratory: Negative for shortness of breath. Cardiovascular: Negative for chest pain. Gastrointestinal: Positive for nausea and abdominal pain. Negative for vomiting, diarrhea and constipation. Genitourinary: Positive for vaginal bleeding. Negative for dysuria, urgency, frequency, flank pain,vaginal discharge and vaginal pain. Musculoskeletal: Negative for back pain, gait problem and neck stiffness. Skin: Negative for rash. Neurological: Negative for headaches. Psychiatric/Behavioral: Negative for confusion. All other systems reviewed and are negative. The patient's past medical, family and social history was reviewed and updated as needed. Allergies Allergen Reactions ??? Adhesive Rash ??? Latex, Natural Rubber Rash ??? Morphine Nausea And Vomiting Morphine caused patient to feel very aggressive ??? Tramadol Nausea Only Dizziness Vital Signs Temp: 35.8 ??C (96.4 ??F) Temp src: Oral Pulse: 84 Resp: 16 SpO2: 97 % BP: 117/83 mmHg BP Device: BP Machine Patient Position: Sitting BP Cuff Location: Left arm O2 Device: None (Room air) Physical Exam Constitutional: She is oriented to person, place, and time. She appears well- developed and well-nourished. HENT: Head: Normocephalic and atraumatic. Right Ear: External ear normal. Left Ear: External ear normal. Nose: Nose normal. Eyes: Pupils are equal, round, and reactive to light. Right eye exhibits no discharge. Left eye exhibits no discharge. Neck: Normal range of motion. Neck supple. No tracheal deviation present. Cardiovascular: Normal rate, regular rhythm and normal heart sounds. Pulmonary/Chest: Breath sounds normal. No respiratory distress. Abdominal: Soft. There is no hepatosplenomegaly. There is tenderness in the right lower quadrant. There is tenderness at McBurney's point. There is no rigidity, no guarding, no CVA tenderness and negative Oswald's sign. Genitourinary: Cervix exhibits no motion tenderness and no discharge. There is bleeding in the vagina. No tenderness in the vagina. No foreign body around the vagina. No signs of injury around the vagina. No vaginal discharge found. Musculoskeletal: Normal range of motion. Neurological: She is alert and oriented to person, place, and time. She has normal strength. No sensory deficit. Skin: No rash noted. Psychiatric: She has a normal mood and affect. Nursing note and vitals reviewed. RESULTS EKG orders: None Radiology orders: RAD US PELVIS, TRANSVAGINAL, AND LIMITED DOPPLER RAD US ABDOMEN ONE ORGAN/QUADRANT Imaging Reviewed. I have independently reviewed the images. There are no significant abnormalities ED Lab Results Labs Reviewed CHLAMYDIA/GC AMPLIFIED COMPREHENSIVE METABOLIC PANEL (CMP) HEMAGRAM AND DIFFERENTIAL POCT URINE DIPSTICK POCT TEST, CLINITEK Procedures ED COURSE A medical screening exam was performed. 25-year-old female with history of endometriosis and normal presents today with 24 hours of acute vaginal bleeding with right lower quadrant abdominal pain. Physical exam was snorted above significant for right lower quadrant abdominal tenderness with no acute vaginal bleeding or discharge or cervical motion tenderness seen on pelvic exam. Labs ordered. Urine dip ordered. Ultrasound ordered showing no acute abnormalities. Zofran given for pain. Patient discharged pending cautery and, ear cultures which will follow-up on. Zofran prescribed. Patient appears hemodynamically stable with vital signs within normal limits and in no acute distress. Patient comfortable with plan. ASSESSMENT AND PLAN Final diagnoses: None DISPOSITION: No disposition on file The patient's pain was managed to an adequate level weighing risk vs. benefit of further medications. Upon departure from the Emergency Department, the patient's pain was 0 on a zero to ten scale. Condition at departure from the Emergency Department: Stable PCP: Abdoulaye MIRANDA Number of Diagnoses or Management Options Amount and/or Complexity of Data Reviewed Review and summarize past medical records: yes Marcella Pedroza was available for supervision. 01/24/2016 6:51 No flowsheet data found. * Lucretia Cody RN - 01/24/2016 0649 EDT Chaperoned pelvic exam performed by JOHN Farr. Pt tolerated well. Specimens rec'd and sent to lab. documented in this encounter Plan of Treatment [...] Name Priority Date/Time Associated Diagnosis Comments URINE SEDIMENT (MICRO) WITHOUT REFLEX TO CULTURE STAT 01/24/2016 9:05 EDT TEST, URINE STAT 01/24/2016 9:05 EDT BACTERIAL CULTURE, URINE STAT 01/24/2016 9:05 EDT RAD US PELVIS, TRANSVAGINAL, AND LIMITED DOPPLER STAT 01/24/2016 8:53 EDT RAD US ABDOMEN ONE ORGAN/QUADRANT STAT 01/24/2016 8:53 EDT CHLAMYDIA/N. GONORRHOEAE AMPLIFIED RNA, URINE Routine 01/24/2016 8:50 EDT COMPLETE BLOOD COUNT AND DIFFERENTIAL STAT 01/24/2016 7:01 EDT COMPREHENSIVE METABOLIC PANEL (CMP) STAT 01/24/2016 7:01 EDT CHLAMYDIA/N. GONORRHOEAE AMPLIFIED NUCLEIC ACID Routine 01/24/2016 6:50 EDT documented in this encounter Results * TEST, URINE (01/24/2016 9:05 EDT) Result- Test, Ur Neg Neg 01/24/2016 9:[address] [facility] Comment: NOTE: False negative results may occur in women who are beyond 5-8 weeks gestation. Diagnosis of should be based on a correlation of test results with typical clinical signs and symptoms. Urine specimen (specimen) URINE / Unknown 01/24/2016 9:05 EDT 01/24/2016 9:11 EDT Samir Farr MD URINALYSIS O RDERABLES [facility] [address] [place] [address] * URINE MICROSCOPIC ONLY (01/24/2016 9:05 EDT) WBC, UA less than 1 0 - 5 /HPF 01/24/2016 10:[address] [facility] RBC, UA 5 to 10 0 - 5 /HPF 01/24/2016 10:[address] [facility] Squam Epithel, UA None seen None seen /HPF 01/24/2016 10:[address] [facility] Renal Epithel, UA None seen None seen /HPF 01/24/2016 10:[address] [facility] Bacteria, UA None seen None seen /HPF 01/24/2016 10:[address] [facility] Crystals, UA None seen /HPF 01/24/2016 10:[address] [facility] Hyaline Casts, UA None seen /LPF 01/24/2016 10:[address] [facility] UA Comment Microscopic results 01/24/2016 10:[address] [facility] Comment: are unreliable on urines unrefrig >2hrs or refrig >8hrs. Small sample, less than 12 ml received. Mucus, UA Present 01/24/2016 10:[address] [facility] Urine specimen (specimen) URINE / Unknown 01/24/2016 9:05 EDT 01/24/2016 9:11 EDT Samir Farr MD URINALYSIS O RDERABLES [facility] [address] [place] [address] * BACTERIAL CULTURE, URINE (01/24/2016 9:05 EDT) Result Less than 10,000 CFU/ml Usual urogenital cristine. 01/25/2016 11:[address] [facility] Urine specimen (specimen) URINE / Unknown 01/24/2016 9:05 EDT 01/24/2016 9:11 EDT Samir Farr MD MICROBIOLOGY - GENERAL ORDERABLES [facility] [address] [place] [address] * RAD US ABDOMEN ONE ORGAN/QUADRANT (01/24/2016 8:53 EDT) Anatomical Region Laterality Modality Other 01/24/2016 8:53 EDT 01/24/2016 10:27 EDT Narrative 01/24/2016 10:27 EDT RAD US ABDOMEN ONE ORGAN/QUADRANT ??01/24/2016 8:53 AM Signs and Symptoms: ??ABDOMINAL PAIN, RLQ tenderness Comparison: None. Technique: Still and cine ultrasound images of the right lower quadrant were obtained with Doppler augmentation where necessary. Findings: The appendix is not identified. Of note the patient was unable to tolerate the exam and the exam was terminated. Impression: 1. Limited exam as the patient was in pain and requested the exam to stop. The appendix is not identified. If there is further clinical concern for appendicitis, a CT scan should be performed. I have personally reviewed the images and the above interpretation and agree with the findings. Procedure Note Li Flores MD - 01/24/2016 RAD US ABDOMEN ONE ORGAN/QUADRANT 01/24/2016 8:53 AM Signs and Symptoms: ABDOMINAL PAIN, RLQ tenderness Comparison: None. Technique: Still and cine ultrasound images of the right lower quadrant were obtained with Doppler augmentation where necessary. Findings: The appendix is not identified. Of note the patient was unable to tolerate the exam and the exam was terminated. Impression: 1. Limited exam as the patient was in pain and requested the exam to stop. The appendix is not identified. If there is further clinical concern for appendicitis, a CT scan should be performed. I have personally reviewed the images and the above interpretation and agree with the findings. Samir Farr MD IMG US ORDER PIETER * RAD US PELVIS, TRANSVAGINAL, AND LIMITED DOPPLER (01/24/2016 8:53 EDT) Anatomical Region Laterality Modality Other 01/24/2016 8:53 EDT 01/24/2016 10:24 EDT Narrative 01/24/2016 10:24 EDT RAD US PELVIS, TRANSVAGINAL, AND LIMITED DOPPLER ??01/24/2016 8:53 AM Signs and Symptoms: ??ABDOMINAL PAIN Comparison: Pelvic ultrasound December 13, 2015. Technique: Still and cine ultrasound images of the pelvis were obtained transabdominally and transvaginally with arterial and venous waveforms obtained. Findings: The uterus is anteverted. It measures 8.8 x 3.7 x 5.3 cm. Its myometrium is homogenous in echotexture. The endometrial stripe is homogeneous and measures 5 mm in double thickness. The right ovary measures 2.7 x 1.3 x 1.3 cm. ??It demonstrates normal flow on both color Doppler and spectral tracings. The left ovary is not identified. The cervix is unremarkable. There is a small amount of free fluid in the right lower quadrant. Of note, the patient experienced increased pain in the right lower quadrant. Of note the patient requested the exam be terminated early as she was in increased discomfort. ?? Impression: 1. ??Normal right ovary. 2. ??The left ovary is not identified as the patient requested the exam be terminated early as she was in increased discomfort. 3. ??Small amount of free fluid in the right lower quadrant. ?? I have personally reviewed the images and the above interpretation and agree with the findings. Procedure Note Li Flores MD - 01/24/2016 RAD US PELVIS, TRANSVAGINAL, AND LIMITED DOPPLER 01/24/2016 8:53 AM Signs and Symptoms: ABDOMINAL PAIN Comparison: Pelvic ultrasound December 13, 2015. Technique: Still and cine ultrasound images of the pelvis were obtained transabdominally and transvaginally with arterial and venous waveforms obtained. Findings: The uterus is anteverted. It measures 8.8 x 3.7 x 5.3 cm. Its myometrium is homogenous in echotexture. The endometrial stripe is homogeneous and measures 5 mm in double thickness. The right ovary measures 2.7 x 1.3 x 1.3 cm. It demonstrates normal flow on both color Doppler and spectral tracings. The left ovary is not identified. The cervix is unremarkable. There is a small amount of free fluid in the right lower quadrant. Of note, the patient experienced increased pain in the right lower quadrant. Of note the patient requested the exam be terminated early as she was in increased discomfort. Impression: 1. Normal right ovary. 2. The left ovary is not identified as the patient requested the exam be terminated early as she was in increased discomfort. 3. Small amount of free fluid in the right lower quadrant. I have personally reviewed the images and the above interpretation and agree with the findings. Samir Farr MD IMG US ORDER PIETER * CHLAMYDIA/GC AMPLIFIED, URINE (01/24/2016 8:50 EDT) Chlamydia Result No Chlamydia trachomatis DNA detected by machine plate stacker mediated amplification. 01/25/2016 14:[address] [facility] Comment: A first catch urine specimen is acceptable for detection of Gonorrhea and Chlamydia, but might detect up to 10% fewer infections when compared with vaginal and endocervical swab samples. GC Result No Neisseria gonorrhoeae DNA detected by machine plate stacker mediated amplification. 01/25/2016 14:[address] [facility] Comment: A first catch urine specimen is acceptable for detection of Gonorrhea and Chlamydia, but might detect up to 10% fewer infections when compared with vaginal and endocervical swab samples. Specimen of unknown material (specimen) URINE / Unknown 01/24/2016 8:50 EDT 01/24/2016 9:39 EDT Samir Farr MD MICROBIOLOGY - GENERAL ORDERABLES [facility] [address] [place] [address] * HEMAGRAM AND DIFFERENTIAL (01/24/2016 7:01 EDT) WBC 7.23 4.0 - 12.4 K/cmm 01/24/2016 7:[address] [facility] RBC 4.84 3.86 - 5.04 M/cmm 01/24/2016 7:[address] [facility] Hemoglobin 13.4 11.6 - 15.2 gm/dl 01/24/2016 7:[address] [facility] HCT 39.5 34.9 - 44.4 % 01/24/2016 7:[address] [facility] MCV 82 81 - 98 fl 01/24/2016 7:19 [facility] MCH 27.7 26.7 - 33.3 pg 01/24/2016 7:19 [facility] MCHC 33.9 32.1 - 35.9 gm/dl 01/24/2016 7:19 [facility] RDW-CV 12.9 11.7 - 14.6 % 01/24/2016 7:19 [facility] RDW-SD 38.1 37.6 - 50.3 fl 01/24/2016 7:19 [facility] PLT 244 141 - 377 K/cmm 01/24/2016 7:19 [facility] MPV 11.0 9.5 - 12.7 fl 01/24/2016 7:19 [facility] % Neutrophils 57.2 % 01/24/2016 7:19 [facility] % Lymphocytes 31.0 % 01/24/2016 7:19 [facility] % Monocytes 7.9 % 01/24/2016 7:19 [facility] % Eosinophils 2.5 % 01/24/2016 7:19 [facility] % Basophils 0.7 % 01/24/2016 7:19 [facility] % Immature Grans 0.7 % 01/24/2016 7:19 [facility] ABS Neutrophils 4.14 2.20 - 8.85 K/cmm 01/24/2016 7:19 [facility] ABS Lymphs 2.24 1.09 - 3.30 K/cmm 01/24/2016 7:19 [facility] ABS Monocytes 0.57 0.1 - 0.8 K/cmm 01/24/2016 7:19 [facility] ABS Eosinophils 0.18 0.03 - 0.61 K/cmm 01/24/2016 7:19 [facility] ABS Basophils 0.05 0.01 - 0.11 K/cmm 01/24/2016 7:19 [facility] ABS Immature Grans 0.05 0 - 0.06 K/cmm 01/24/2016 7:19 [facility] Type of Diff: Automated 01/24/2016 7:19 [facility] Blood specimen (specimen) BLOOD SPECIMEN / Unknown 01/24/2016 7:01 EDT 01/24/2016 7:09 EDT Samir Farr MD PACKAGES & D NA PROBE ORDERABLES Performing Organization Address City/State/[facility] Co de Phone Number [facility] [address] [place] [address] * (ABNORMAL) COMPREHENSIVE METABOLIC PANEL (CMP) (01/24/2016 7:01 EDT) Potassium 4.4 3.5 - 5.0 mEq/L 01/24/2016 7:28 [facility] Sodium 140 136 - 145 mEq/L 01/24/2016 7:28 [facility] Chloride 106 96 - 110 mEq/L 01/24/2016 7:28 [facility] CO2 21(L) 24 - 32 mEq/L 01/24/2016 7:28 [facility] Total Alkaline Phosphatase 59 38 - 126 U/L 01/24/2016 7:28 [facility] Bilirubin, Total 0.6 <1.4 mg/dl 01/24/20 16 7:28 [facility] AST 16 15 - 46 U/L 01/24/2016 7:28 [facility] ALT 20 <53 U/L 01/24/2016 7:28 [facility] Albumin 3.8 3.4 - 4.9 g/dl 01/24/2016 7:28 [facility] Total Protein 6.8 6.3 - 8.2 g/dl 01/24/2016 7:28 [facility] Creatinine 0.67 0.52 - 1.04 mg/dl 01/24/2016 7:28 [facility] GFR, Calculated 123 >60 ml/min/1.7 3m2 01/24/2016 7:28 [facility] Comment: eGFR calculated using CKD-EPI equation for non Americans. Multiply eGFR by 1.16 for Americans. BUN 6(L) 10 - 26 mg/dl 01/24/2016 7:[address] [facility] Calcium 9.4 8.5 - 10.5 mg/dl 01/24/2016 7:[address] [facility] Calculated Calcium 10.0 8.5 - 10.5 mg/dl 01/24/2016 7:[address] [facility] Glucose, Serum 90 70 - 100 mg/dl 01/24/2016 7:[address] [facility] Fasting? Unknown 01/24/2016 7:[address] [facility] Blood specimen (specimen) BLOOD SPECIMEN / Unknown 01/24/2016 7:01 EDT 01/24/2016 7:09 EDT Samir Farr MD CHEMISTRY & BLOOD GAS ORDERABLES Performing Organization Address [facility] de Phone Number [facility] [address] [place] [address] * CHLAMYDIA/GC AMPLIFIED (01/24/2016 6:50 EDT) Chlamydia Result Unable to test specimen: Incorrect swab submitted in transport tube (please use blue swab ONLY). Test cancelled by Pathologist. 01/24/2016 8:[address] [facility] GC Result Unable to test specimen: Incorrect swab submitted in transport tube (please use blue swab ONLY). Test cancelled by Pathologist. 01/24/2016 8:[address] [facility] Specimen of unknown material (specimen) ENDOCERVICAL STRUCTURE / Unknown 01/24/2016 6:50 EDT 01/24/2016 8:23 EDT Samir Farr MD MICROBIOLOGY - GENERAL ORDERABLES Performing Organization Address [facility] Co de Phone Number [facility] [address] [place] [address] documented in this encounter Visit Diagnoses Diagnosis Vaginal bleeding- Primary Other specified noninflammatory disorder of vagina documented in this encounter Administered Medications Inactive Administered Medications - up to 3 most recent administrations Medication Order MAR Action Action Date Dose Rate Site ondansetron (PF) (ZOFRAN) injection 4 mg 4 mg, intravenous, NOW X1, 1 dose, On Fri01/24/16 at 0700, STAT Given 01/24/2016 7:10 EDT 4 mg documented in this encounter Active and Recently Administered Medications Times are shown in EDT. Scheduled Medication Order 01/22/2016 01/23/2016 01/24/2016 ondansetron (PF) (ZOFRAN) injection 4 mg (COMPLETED) 4 mg, intravenous, NOW X1, 1 dose, On Fri01/24/16 at 0700, STAT 0710 (Given - Provid er: Melinda Omer RN) documented in this encounter Orders Medications Ordered That Jean ht Not Have Been Administered Count Last Ordered Date First Ordered Date ondansetron (PF) (ZOFRAN) injection 4 mg 1 01/24/2016 Nursing Count Last Ordered Date First Orde red Date INSERT PERIPHERAL IV 1 01/24/2016 documented in this encounter Care Teams Bullet Slugs Inspector Relationship Specialty Start Date End Date Abdoulaye Gonzalez PCP - General 12/22/15 04/05/18 documented as of this encounter
--- OUTSIDE RECORDS SUMMARY | 2024-04-14 20:42 | XMS_ITS | Encounter Summary ---
Author Organization [facility] Address [address] [place] [address] Care Team Providers Care Office Service Coordinator Name Role Phone Abdoulaye Gonzalez Primary Care Provider [phone] Reason for Visit * Reason Comments Other Encounter Details Date Type Department Care Team (Late st Contact Info) Description 01/04/2016 [facility] Adult Primary Care - [address] [address] Rina Agosto MD [address] [place] [phone] Other Social History Tobacco Use Types Packs/Day [...] filedocumented in this encounter Care Teams Office Service Coordinator Relationship Specialty Start Date End Date Abdoulaye Gonzalez PCP - General 12/22/15 04/05/18 documented as of this encounter
--- OUTSIDE RECORDS SUMMARY | 2024-04-14 20:42 | XMS_ITS | Encounter Summary ---
Author Organization [facility] Address [address] [place] [address] Care Team Providers Care Planer Hand Name Role Phone Abdoulaye Gonzalez Primary Care Provider [phone] Reason for Visit * Reason Onset Date Comments Other 12/22/2015 urology surgery Encounter Details Date Type Department Care Team (Late st Contact Info) Description 12/22/2015 Telephone [facility] Adult Primary Care - [address] [phone] Abdoulaye Gonzalez [address] [place] [phone] Other (urology surgery) Social History Tobacco Use Types Packs/Day Years [...] * Telephone Encounter - Abdoulaye Gonzalez - 12/22/2015 1255 EDT Agree with plan. * Telephone Encounter - Diana Hawkins, RN - 12/22/2015 1201 EDT Gladys just change to this practice today and is calling about not feeling well after having a kidney stone surgery yesterday Advised her to [facility] as they will Need to follow her since she is not been seen here and we will not take over her care until she is seen here first Looks like she has been followed by a PROCESS DESIGN CHEMICAL ENGINEER in [place] until today so did suggest she call there too. States he is achy all over and has developed a temp as she did have one prior to her surgery she states? Was told this may happen by urology according to her * Telephone Encounter - Johana Cody - 12/22/2015 1141 EDT Reason for Call: Other Summary/Symptoms: Pt had surgery yesterday for kidney stone, [facility]; asking to discuss pain meds Onset and Duration? na Appointment Offered? consuelo Cody 12/22/2015 11:41 documented in this encounter Plan of [...] filedocumented in this encounter Care Teams Planer Hand Relationship Specialty Start Date End Date MgAbdoulaye gusman PCP - General 12/22/15 04/05/18 documented as of this encounter
--- OUTSIDE RECORDS SUMMARY | 2024-04-14 20:42 | XMS_ITS | Encounter Summary ---
Author Organization [facility] Address [address] [place] [address] Care Team Providers Care Avionics Systems Repairer Name Role Phone Abdoulaye Gonzalez Primary Care Provider [phone] Reason for Visit * Reason Onset Date Comments Ankle Pain 03/24/2016 Encounter Details Date Type Department Care Team (Late st Contact Info) Description 03/24/2016 Telephone [facility] - [address] [phone] Abdoulaye Gonzalez [address] [place] [phone] Ankle Pain Social History Tobacco Use Types Packs/Day [...] * Telephone Encounter - Lea Posadas - 03/24/2016 1535 EDT Outgoing call to Gladys. She reports she thinks she twisted her ankle stepping over a gate getting a toy for her son. She reports minimal swelling, no bruising. She can bear weight, but it does hurt more going up and down stairs. Patient has been taking ibuprofen, elevating, icing. Advised patient to continue to rest, elevate, use ice. If symptoms not improving in a few days, follow up with PCP. Patient verbalized understanding with no barriers to learning and agrees with plan of care. * Telephone Encounter - Margret Yañez - 03/24/2016 1523 EDT Reason for Call: Ankle pain Summary/Symptoms: Left ankle hurts, can put pressure on it, doesn't think it's swollen Onset and Duration? Friday night Appointment Offered? N/A - would like advice from nurse on what she should do Margret Yañez 03/24/2016 15:24 documented in this encounter Plan of Treatment [...] on filedocumented in this encounter Care Teams Avionics Systems Repairer Relationship Specialty Start Date End Date MgAlverto gusmantin PCP - General 12/22/15 04/05/18 documented as of this encounter
--- OUTSIDE RECORDS SUMMARY | 2024-04-14 20:42 | XMS_ITS | Encounter Summary ---
Author Organization [facility] Address [address] [place] [address] Care Team Providers Care Exterminator Helper Termite Name Role Phone Abdoulaye Gonzalez Primary Care Provider Fiordaliza Hurt MD Primary Care Provider [phone] Reason for Visit * Reason Onset Date Comments Labs Only 01/23/2016 Encounter Details Date Type Department Care Team (Late st Contact Info) Description 01/23/2016 Telephone [facility] - [address] [address] Urgent Care, Hu Physician, Labs Only Social History Tobacco Use Types [...] encounter Miscellaneous Notes * Telephone Encounter - Lindsay Maza, RN - 01/23/2016 1455 EDT Pt has follow-up scheduled with her PCP today at 1615 hrs. Will await call-back from patient if further information necessary. * Telephone Encounter - Vandana Lee RN - 01/23/2016 1012 EDT Generic voicemail left on patient voicemail that doesn't identify patient to call back. * Telephone Encounter - Marcella Carrington - 01/23/2016 1008 EDT Pt would like lab results. documented in this encounter Plan of Treatment [...] on filedocumented in this encounter Care Teams Exterminator Helper Termite Relationship Specialty Start Date End Date Abdoulaye Gonzalez PCP - General 12/22/15 04/05/18 Fiordaliza Hurt MD PCP - General 04/06/18 08/16/19 documented as of this encounter
--- OUTSIDE RECORDS SUMMARY | 2024-04-14 20:42 | XMS_ITS | Encounter Summary ---
Author Organization [facility] Address [address] [place] [address] Care Team Providers Care Pluck Trimmer Name Role Phone Abdoulaye Gonzalez Primary Care Provider [phone] Encounter Details Date Type Department Care Team (Late st Contact Info) Description 01/23/2016 Orders Only [facility] Adult Primary Care - [address] [phone] Abdoulaye Gonzalez [address] [place] [address] Social History Tobacco Use Types Packs/Day Years [...] on filedocumented in this encounter Care Teams Pluck Trimmer Relationship Specialty Start Date End Date Abdoulaye Gonzalez PCP - General 12/22/15 04/05/18 documented as of this encounter
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
--- OUTSIDE RECORDS SUMMARY | 2024-04-14 20:42 | XMS_ITS | Encounter Summary ---
Author Organization [facility] Address [address] [place] [address] Care Team Providers Care Final Expense Agent Name Role Phone Abdoulaye Gonzalez Primary Care Provider [phone] Reason for Visit * Reason Comments Post-OP Follow Up Cystoscopy Stent Removal Encounter Details Date Type Department Care Team (Late st Contact Info) Description 12/26/2015 14:00 EDT Post-op Visit [facility] - [address] [phone] Porfirio Vee MD [address] [facility], [address] [place] [address] Calculus of kidney (Primary Dx); Calculus of ureter Discharge Disposition: Auto Discharge Social History Tobacco [...] as of this encounter Discharge Diagnoses Diagnosis N20.0 Calculus of kidney-N20.0[ICD-10-CM] N20.1 Calculus of ureter-N20.1[ICD-10-CM] documented in this encounter Discharge Disposition Disposition Code Departure Means Destination Auto Discharge documented in this encounter Progress Notes * Porfirio Vee MD - 12/26/2015 1438 EDT URO Office Cystoscopy Office cystoscopy for: stent removal. Anesthesia: 2% lidocaine gel . Procedure: Patient identified, prepped and draped in usual sterile manner 14 sammarinese. Flexible cystoscope inserted into urethra and guided into bladder under direct vision. Finding:normal urethra, normal bladder mucosa and abnormal findings: stent removal right. Plan: Stone prevention. F/U 6 weeks with [facility] results. Porfirio Vee MD December 26, 2015 * Porfirio Vee MD - 12/26/2015 1437 EDT Ms Lopez is a 25-year-old woman who recently underwent right-sided ureteroscopy for a right distal ureteral stone, deeming her essentially stone free on the right side. She presents today in followup to have her stent removed. This was performed in the office without difficulty. Her stone composition was 70% calcium oxalate and 30% calcium phosphate. I had an extensive discussion with her regarding the need for stone prevention including increasing her fluid intake, moderating sodium and animal protein intake, and supplementing her diet with real lemon juice. In addition to this, I have recommended that she undergo evaluation with a 24-hour urine collection and serum studies to be performed in about 1 months' time and I will plan to see her back in 6 months' time. On exam, she remains an overweight 25-year-old woman who is alert and oriented x3 in no acute distress. Normocephalic, atraumatic, anicteric. Her neck is supple. She has normal respiratory effort. Her abdomen is soft, nontender, nondistended. She has no CVA tenderness. No evidence of scoliosis. Shewalks with a normal gait. She has no cyanosis or clubbing of the extremities. documented in this encounter Plan of Treatment Not on file documented as of this encounter Goals Goal Patient Goal Type Associated Problems Recent Progress Patient-Stated? Author Blood Pressure < 130/80 Blood Pressure 118/78(2017 16:01 EDT) No Rina Agosto MD Weight Loss General Yes Rina Agosto MD Note: Goal = 145lbs documented as of this encounter Visit Diagnoses Diagnosis Calculus of kidney- Primary Calculus of ureter documented in this encounter Care Teams Final Expense Agent Relationship Specialty Start Date End Date Abdoulaye Gonzalez PCP - General 12/22/15 04/05/18 documented as of this encounter
--- OUTSIDE RECORDS SUMMARY | 2024-04-14 20:42 | XMS_ITS | Encounter Summary ---
Author Organization [facility] Address [address] [place] [address] Care Team Providers Care Custom Tailor Apprentice Name Role Phone Abdoulaye Gonzalez Primary Care Provider [phone] Reason for Visit * Reason Comments Acne stable on spironolac tone Encounter Details Date Type Department Care Team (Late st Contact Info) Description 02/20/2016 13:00 EDT Office Visit [facility] Dermatology 5th Floor [facility] [address], [place] [id number] Rina Albert MD [address] [place] [address] Acne vulgaris (Primary Dx) Social History Tobacco [...] as of this encounter Discharge Diagnoses Diagnosis L70.0 Acne vulgaris-L70.0[ICD-10-CM] documented in this encounter Ordered Prescriptions Prescription Sig Dispensed Refills Start Date End Da te Azelaic Acid 15 % gel Apply topically to affected area daily. Apply to face once daily. Apply sparingly. 50 g 5 02/20/2016 03/18/2016 erythromycin with ethanol (EMGEL) 2 % gel Once daily to face after washing. 60 g 02/20/2016 03/18/2016 documented in this encounter Progress Notes * Rina Albert MD - 02/20/2016 1307 EDT Dermatology Outpatient Visit Note SUBJECTIVE Chief Complaint Patient presents with ??? Acne stable on spironolactone Problem List 1. Acne - treated with spironolactone 50 mg BID + tretinoin and clindamycin Date of Last Visit: 08/2015 History of Present Illness: Gladys Lopez is a 26 y.o. female who presents to clinic today for follow up evaluation for acne. She has been on spironolactone 50 BID, and is happy with her level of control of her acne on this therapy. She rarely uses tretinoin or clindamycin. She and her are actively trying to become , and she would like to know her treatment options for acne during . Review of Systems: Pertinent positives as noted above in progress notes section and all others are negative. Pt's past medical, family, and social history have been reviewed as above. Meds: Pt has a current medication list which includes the following prescription(s): acetaminophen,albuterol, clindamycin, cyclobenzaprine, fluticasone propionate, ibuprofen, montelukast, ondansetron, oxybutynin, propranolol, spironolactone, tretinoin, and UNKNOWN TO PATIENT. OBJECTIVE VS: Last menstrual period 10/13/2015, currently . Physical Exam: This is a pleasant, alert and oriented, well-nourished, well-groomed female in no acute distress. She has Keane type II skin. Cutaneous head and neck examination including the hair, scalp, face, eyelids, lips and neck. - Over the inferior and mid cheeks there are a few rare, scattered violaceous macules - Over the cheeks, upper cutaneous lip and chin there are multiple depressed scars ASSESSMENT 1. Acne - very well controlled on spironolactone 50 mg BID PLAN 1. Patient education given on the above assessments. 2. Discussed that spironolactone is contraindicated during . Discussed options, including Finacea, erythromycin, and over the counter treatment with glycolic acid. She will consider these options; prescriptions given for: - erythromycin gel 60 g with 5 RF, apply thin layer daily - Finacea 50 g with 5 RF, apply thin layer daily 3. Discussed the teratogenicity of spironolactone, as well as vitamin A derivatives. - she will stop tretinoin - she will stop spironolactone - she will also avoid medications containing salicylic acid 4. Return to clinic as needed. Rina Albert MD 02/20/2016 13:07 * Sandro Melgoza - 02/20/2016 1301 EDT Review of Systems Constitutional: Positive for fatigue. Negative for fever and unexpected weight change. HENT: Negative for mouth sores. Eyes: Negative for pain. Respiratory: Negative for cough and shortness of breath. Cardiovascular: Negative for chest pain and palpitations. Gastrointestinal: Negative for nausea, vomiting, abdominal pain, diarrhea, constipation and blood in stool. Genitourinary: Positive for dysuria. Negative for frequency and hematuria. Musculoskeletal: Negative for myalgias, joint swelling, arthralgias and muscle stiffness in the morning. Skin: Negative for rash. Neurological: Positive for headaches. Negative for numbness. Endo/Heme/Allergies: Bruises/bleeds easily. Psychiatric/Behavioral: Negative for sleep disturbance. The patient is not nervous/anxious. Sandro Melgoza 02/20/2016 13:01 documented in this encounter Plan of Treatment [...] te clindamycin (CLINDAGEL) 1 % gel Apply topically to affected areas on chest and back once daily. You can apply to face in the morning. Use thin film. Alternate therapy 05/30/2015 02/20/2016 spironolactone (ALDACTONE) 50 mg tablet Take 1 Tab by mouth 2 times daily. Alternate therapy 02/09/2016 02/20/2016 tretinoin (RETIN-A) 0.025 % cream Apply topically to face at night. Apply sparingly. Do not apply immediately after washing, may sting. Alternate therapy 05/30/2015 02/20/2016 documented as of this encounter Care Teams Custom Tailor Apprentice Relationship Specialty Start Date End Date Abdoulaye Gonzalez PCP - General 12/22/15 04/05/18 documented as of this encounter
--- OUTSIDE RECORDS SUMMARY | 2024-04-14 20:42 | XMS_ITS | Encounter Summary ---
Author Organization [facility] Address [address] [place] [address] Care Team Providers Care Computational Physicist Name Role Phone Abdoulaye Gonzalez Primary Care Provider [phone] Reason for Visit * Reason Onset Date Comments Menstrual Problem 03/15/2016 spotting Encounter Details Date Type Department Care Team (Late st Contact Info) Description 03/15/2016 Telephone [facility] - [address] [phone] Abdoulaye Gonzalez [address] [place] [phone] Menstrual Problem (spotting) Social History Tobacco Use Types Packs/Day Years [...] Dispensed Refills Start Date End Da te sumatriptan (IMITREX) 50 mg tablet Take 1 Tab by mouth once as needed for up to 1 dose for Migraine. May repeat 1 in two hours if needed do not exceed more than 5 per month 9 Tab 11 03/19/2016 09/10/2017 documented in this encounter Miscellaneous Notes * Telephone Encounter - Diana Hawkins RN - 03/18/2016 1448 EDT Appointment to see Cristo BOWMAN today * Telephone Encounter - Abdoulaye Gonzalez - 03/18/2016 1421 EDT How often has she been taking the Imitrex? Is she wanting to avoid taking it b/c she's already taken it several times, or is she having side effects with it? If she could come in for an appointment, that would be ideal. I don't know her well, so trying to help her with an intractable migraine over the phone will be difficult. * Telephone Encounter - Diana Hawkins RN - 03/18/2016 1207 EDT Gladys is having a period of migraine/lightheaded and dizzy She has been taking the propanolol daily for preventive of migraine Now it has not worked for the last three days and she does not want to take the Imitrex ( she has been using this but it is not on her med list from previous med in [place].) She has had a headache now for three days please advise as she is in pain with the headache . Offered appointment did not want to come in unless necessary * Telephone Encounter - Libia Locke - 03/18/2016 1147 EDT Returning nurse call * Telephone Encounter - Diana Hawkins RN - 03/18/2016 1134 EDT Gladys did call on Friday concerned that her spotting just before her menses was not normal to her and she is trying to get . Urine pre test she did was negative .Her hcg was negative. Left that mess for her if that is why she is calling about migraines as she does not want to use any med that could harm a fetus. Hope she will freddy back * Telephone Encounter - Amanda Mckeon - 03/18/2016 1107 EDT Pt has had a headache for three days. Pt is taking propanilol for headaches. Pt can be reached at [phone]. * Telephone Encounter - Diana Hawkins RN - 03/15/2016 1549 EDT Gladys is trying to get She is asking to get a blood test since she is very nervous about being with her Migraine med's She has only spotted a little not normal she usually has a flood on her menses days and then spots at the end She had reddish brown few spots early had left sided sharp pain ? Ovulation /inplant/gas She will call in Friday but she want to get the labs done kevin Let her know that each person is different And it is too soon to determine if this is a menses or not. * Telephone Encounter - Johana Cody - 03/15/2016 1453 EDT Reason for Call: Menstrual Problem Summary/Symptoms: C/o spotting x 24 hrs; states usual menses is due 8.8, call to advise, [phone]; also discuss home test Onset and Duration? 24 hrs Appointment Offered? kavin Cody 03/15/2016 14:53 documented in this encounter Plan of Treatment Not on file documented as of this encounter Goals Goal Patient Goal Type Associated Problems Recent Progress Patient-Stated? Author Blood Pressure < 130/80 Blood Pressure 118/78(2017 16:01 EDT) No Rina Agosto MD Weight Loss General Yes Rina Agosto MD Note: Goal = 145lbs documented as of this encounter Results * HCG FOR (03/15/2016 16:29 EDT) Quant Beta HCG, Preg <5 <5 mIU/ml 03/15/2016 17:59 EDT [facility] Comment: Reference Range: Negative = <5 Indeterminate = 5-25 recommend repeat in 48 hours. Positive = >25 Blood specimen (specimen) BLOOD SPECIMEN / Unknown 03/15/2016 16:29 EDT 03/15/2016 16:50 EDT Abdoulaye Gonzalez CHEMISTRY & BLOOD GA S ORDERABLES [facility] [address] [place] [address] documented in this encounter Visit Diagnoses Diagnosis Spotting between menses- Primary Metrorrhagia documented in this encounter Care Teams Computational Physicist Relationship Specialty Start Date End Date Abdoulaye Gonzalez PCP - General 12/22/15 04/05/18 documented as of this encounter
--- OUTSIDE RECORDS SUMMARY | 2024-04-14 20:42 | XMS_ITS | Encounter Summary ---
Author Organization [facility] Address [address] [place] [address] Care Team Providers Care Student Loan Counselor Name Role Phone Abdoulaye Gonzalez Primary Care Provider [phone] Reason for Referral * Consult (Routine) - Closed Specialty Diagnoses / Procedures Referred By Gergory velez Referred To Contact Diagnoses Does not have health insurance Abdoulaey Gonzalez [address] [place] [address] Referral ID Status Reason Start Date Expiration Date V isits Requested Visits Authorized Closed Specialty Services Required 03/18/2016 1 1 Question Answer Reason for Request: Pt needs help enrolling in insurance program as well as paying for medication. Reason for Visit * Reason Comments Migraine headache now gone bu t states she is exhausted Encounter Details Date Type Department Care Team (Late st Contact Info) Description 03/18/2016 16:15 EDT Office Visit [facility] - [address] [address] Abdoulaye Gonzalez [address] [place], [place] [phone] Migraine without aura and without status migrainosus, not intractable (Primary Dx); Does not have health insurance Social History Tobacco Use Types Packs/Day Years [...] Reading Time Taken Comments Blood Pressure 106/70 03/18/2016 1616 EDT Pulse 88 03/18/2016 1616 EDT Temperature 36.9 ??C (98.5 ??F) 03/18/2016 1616 EDT Respiratory Rate 16 03/18/2016 1616 EDT Oxygen Saturation - - Inhaled Oxygen Concentration - - Weight 89.4 kg (197 lb 1.3 oz) 03/18/2016 1616 E DT Height 162.6 cm (5' 4) 03/18/2016 1616 EDT Body Mass Index 33.83 03/18/2016 1616 EDT documented in this encounter Functional Status [...] Instructions * Patient Instructions* Abdoulaye Gonzalez - 03/18/2016 16:51 EDT Images from the original note were not included. Add half a tab of propranolol in the morning and continue taking a full tab at night. At the first sign of a migraine, take Excedrin Migraine. If this doesn't get rid of the headache, you can take rizatriptan (Maxalt): 5 mg to start, then take second dose 2 hours later if you're still having significant pain (maximum: 30 mg/24 hours) Check your blood pressure every day for the next week, and call me if your BP is <90/50. Yakelin Zamudio, with patient assistance, will call you to help with health care enrollment and medication coverage. documented in this encounter Ordered Prescriptions Prescription Sig Dispensed Refills Start Date End Da te rizatriptan (MAXALT) 5 mg tablet Take 1 tab at first sign of migraine. Take second dose if headache not better within 2 hours. 6 Tab 3 03/18/2016 11/05/2016 documented in this encounter Progress Notes * Abdoulaye Gonzalez - 03/18/2016 7987 EDT SUBJECTIVE: Chief Complaint Patient presents with ??? Migraine headache now gone but states she is exhausted HPI: Gladys is a 26-year-old female who presents with a migraine headache that has persisted overthe last 3 days. First came on in the middle of the night when she woke up to attend to her son. Took Tylenol, which didn't help. Then drank a cup of coffee, which got rid of the headache. The next day,the headache came back, and resolved again after drinking a cup coffee. This morning, the headache returned. Tylenol and a cup of coffee were not helpful. Headache finallyresolved this afternoon, but she is now feeling quite fatigued and is still having some noise sensitivity. The headaches feel like pressure and a stabbing pain over the right scientologist. Not accompanied by nausea. Did have photophobia and phonophobia with each headache over the last 3 days. Of note, she got her period the same day as the headache started. She had gotten migraines frequently while and occasionally before that. Previous doctor started her on propranolol 10 mg at bedtime (though her chart lists the dose as 20 mg). This seemed toget rid of the migraines for at least 7 months. She has tried Imitrex for migraines, but this makes her feel fatigued, nauseated, achy. Patient Active Problem List Diagnosis ??? Endometriosis [...] mouth at bedtime 90 Tab 2 ??? ondansetron (ZOFRAN-ODT) 4 mg disintegrating tablet Take 1 Tab by mouth every 8 hours as neededfor Nausea. (Patient not taking: Reported on 03/18/2016) 10 Tab 0 ??? propranolol (INDERAL) 10 mg tablet Take 20 mg by mouth daily. No current facility-administered medications on file prior to visit. OBJECTIVE: Visit Vitals ??? BP 106/70 (BP Cuff Location: Left arm, Patient Position: Sitting, BP Cuff Sizes: Adult, small) ??? Pulse 88 ??? Temp 36.9 ??C (98.5 ??F) (Tympanic) ??? Resp 16 ??? Ht 162.6 cm (64) ??? Wt 89.4 kg (197 lb 1.3 oz) ??? LMP 03/13/2016 (Approximate) ??? No ??? BMI 33.83 kg/m2 Gen: Alert, overweight, NAD ASSESSMENT and PLAN: Migraines: Will try adding half a tab propranolol in the morning. I have asked her to call us with the propranolol dosage listed on the medication bottle, so that we can correct her record if necessary. Monitor blood pressure for the next week. Call if less than 90/60. Tried taking Excedrin Migraine for abortive therapy. Would recommend trial of Maxalt for abortive therapy.patient is currently uninsured. I will ask Yakelin Zamudio to be in touch with her regarding assistance in paying for Maxalt, as well as helping herenroll in insurance. documented in this encounter Plan of Treatment Scheduled Referrals Name Type Priority Associated Diagnoses Order Schedule AMB CONS/FOLLOW UP HEALTH ASSISTANCE PROGRAM Outpatient Referral Routine Does not have health insurance Ordered: 03/18/2016 documented as of this encounter Goals Goal Patient Goal Type Associated Problems Recent Progress Patient-Stated? Author Blood Pressure < 130/80 Blood Pressure 118/78(2017 16:01 EDT) No Rina Agosto MD Weight Loss General Yes Rina Agosto MD Note: Goal = 145lbs documented as of this encounter Visit Diagnoses Diagnosis Migraine without aura and without status migrainosus, not intractable- Primary Migraine without aura, without mention of intractable migraine without mention of status migrainosus Does not have health insurance Other specified housing or economic circumstances documented in this encounter Discontinued Medications Medication Sig Discontinue Reason Start Date End Da te UNKNOWN TO PATIENT Oral control Patient Stopped Taking 03/2016 Azelaic Acid 15 % gel Apply topically to affected area daily. Apply to face once daily. Apply sparingly. 02/20/2016 03/18/2016 cyclobenzaprine (FLEXERIL) 10 mg tablet Take 1 Tab by mouth 3 times daily as needed for Muscle Spasms. 01/22/2016 03/18/2016 erythromycin with ethanol (EMGEL) 2 % gel Once daily to face after washing. 02/20/2016 03/18/2016 oxybutynin (DITROPAN) 5 mg tablet Take 1 Tab by mouth 2 times daily as needed for up to 15 doses for Other (bladder spasm discomfort). 12/22/2015 03/18/2016 documented as of this encounter Historical Medications * This list may reflect changes made after this encounter. Medication Sig Dispensed Refills Start Date End Date spironolactone (ALDACTONE) 25 mg tablet Take 50 mg by mouth 2 times daily. 07/26/2016 added in this encounter Care Teams Student Loan Counselor Relationship Specialty Start Date End Date Abdoulaye Gonzalez PCP - General 12/22/15 04/05/18 documented as of this encounter
--- OUTSIDE RECORDS SUMMARY | 2024-04-14 20:42 | XMS_ITS | Encounter Summary ---
Author Organization [facility] Address [address] [place] [address] Care Team Providers Care Library Manager Name Role Phone Abdoulaye Gonzalez Primary Care Provider [phone] Reason for Visit * Reason Onset Date Comments Appointment Related 12/22/2015 npv Encounter Details Date Type Department Care Team (Late st Contact Info) Description 12/22/2015 Telephone [facility] Adult Primary Care - [address] [phone] Abdoulaye Gonzalez [address] [place] [address] Appointment Related (npv) Social History Tobacco Use Types Packs/Day Years [...] encounter Miscellaneous Notes * Telephone Encounter - Johana Cody - 12/22/2015 1137 EDT The patient has been mailed the following information: ?? Welcome Letter ?? Medical Home Brochure ?? [email or web address] Brochure ?? Medical Records Release Form ?? Preventative Health Questionnaire Johana Cody 12/22/2015 11:37 documented in this encounter Plan of Treatment [...] on filedocumented in this encounter Care Teams Library Manager Relationship Specialty Start Date End Date MgAbdoulaye gusman PCP - General 12/22/15 04/05/18 documented as of this encounter
--- OUTSIDE RECORDS SUMMARY | 2024-04-14 20:42 | XMS_ITS | Encounter Summary ---
Author Organization [facility] Address [address] [place] [address] Care Team Providers Care Photographer Apprentice Lithographic Name Role Phone Abdoulaye Gonzalez Primary Care Provider [phone] Reason for Visit * Reason Onset Date Comments Orders (Non Pre-visit) 01/25/2016 Encounter Details Date Type Department Care Team (Late st Contact Info) Description 01/25/2016 Telephone [facility] Adult Primary Care - [address] [phone] Abdoulaye Gonzalez [address] [place] [phone] Orders (Non Pre-visit) Social History Tobacco Use Types Packs/Day Years [...] Telephone Encounter - Abdoulaye Gonzalez - 01/26/2016 1412 EDT Add-on order was an error. No need to add additional labs. * Telephone Encounter - Diana Hawkins RN - 01/25/2016 0840 EDT Reviewed chart. Do not see What lab was to be added Let Lab CS(Tena) know that and LachelleDonald Carlos will review tomorrow and advise if she did not more done. * Telephone Encounter - Libia Locke - 01/25/2016 0836 EDT Reason for Call: Orders (Non Pre-visit) Summary/Symptoms: Tena from lab calling, add on orders has no test listed Onset and Duration? Appointment Offered? Libia Locke 01/25/2016 8:36 documented in this encounter Plan of Treatment [...] on filedocumented in this encounter Care Teams Photographer Apprentice Lithographic Relationship Specialty Start Date End Date Abdoulaye Gonzalez PCP - General 12/22/15 04/05/18 documented as of this encounter
--- OUTSIDE RECORDS SUMMARY | 2024-04-14 20:42 | XMS_ITS | Encounter Summary ---
Author Organization [facility] Address [address] [place] [address] Care Team Providers Care Commutator Undercutter Name Role Phone MgAbdoulaye gusman Primary Care Provider [phone] Encounter Details Date Type Department Care Team (Late st Contact Info) Description 01/23/2016 Phlebotomy Only [facility] [address] [place] [address] Conductor/Engineer, Outpatient Diarrhea (Primary Dx) Social History Tobacco Use Types [...] Comments FECAL BACTERIAL PATHOGENS BY PCR Routine 01/23/2016 20:03 EDT Diarrhea C. DIFFICILE PCR Routine 01/23/2016 20:0 2 EDT Diarrhea ZZGIARDIA ANTIGEN DETECTION Routine 01/23/2016 20:01 EDT Diarrhea documented in this encounter Results * FECAL BACTERIAL PATHOGENS BY PCR (01/23/2016 20:03 EDT) Salmonella PCR No Salmonella spp. DNA detected 01/24/2016 14:44 EDT [facility] Shigella No Shigella spp. or Enteroinvasive E.coli DNA detected. 01/24/2016 14:44 EDT [facility] Campylobacter PCR No Campylobacter spp. (jejuni or coli) DNA detected. 01/24/2016 14:44 EDT [facility] Shiga Toxin PCR No Shiga toxin producing genes detected. 01/24/2016 14:44 EDT [facility] STOOL SPECIMEN / Unknown 01/23/2016 20:03 EDT 01/23/2016 20:03 EDT Abdoulaye Gonzalez MICROBIOLOGY - GENER AL ORDERABLES [facility] [address] [place] [address] * (ABNORMAL) C. DIFFICILE PCR (01/23/2016 20:02 EDT) Specimen Description Feces 01/23/2016 20:01 EDT [facility] Result Positive( AA) 01/23/2016 23:10 EDT [facility] Stool specimen (specimen) TOPOGRAPHY UNKNOWN / Unknown 01/23/2016 20:02 EDT 01/23/2016 20:02 EDT Abdoulaye Gonzalez MICROBIOLOGY - GENER AL ORDERABLES Performing Organization Address [facility] de Phone Number [facility] [address] [place] [address] * GIARDIA ANTIGEN DETECTION (01/23/2016 20:01 EDT) Result No Giardia antigen detected. 01/24/2016 11:42 EDT [facility] Specimen of unknown material (specimen) STOOL SPECIMEN / Unknown 01/23/2016 20:01 EDT 01/23/2016 20:02 EDT Comment:Total fix vial submi tted Abdoulaye Gonzalez MICROBIOLOGY - GENER AL ORDERABLES Performing Organization Address [facility] de Phone Number [facility] [address] [place] [address] documented in this encounter Visit Diagnoses Diagnosis Diarrhea- Primary documented in this encounter Care Teams Commutator Undercutter Relationship Specialty Start Date End Date Abdoulaye Gonzalez PCP - General 12/22/15 04/05/18 documented as of this encounter
--- OUTSIDE RECORDS SUMMARY | 2024-04-14 20:42 | XMS_ITS | Encounter Summary ---
Author Organization [facility] Address [address] [place] [address] Care Team Providers Care Merchandise Director Name Role Phone Abdoulaye Gonzalez Primary Care Provider [phone] Encounter Details Date Type Department Care Team (Late st Contact Info) Description 03/15/2016 16:23 EDT - 03/15/2016 23:59 EDT Hospital Encounter [address] [address] Abdoulaye Gonzalez [address] [place] [address] Discharge Disposition: Home or Self Care Social [...] as of this encounter Discharge Diagnoses Diagnosis N92.0 Excessive and frequent menstruation with regular cycle-N92.0[ICD-10-CM] documented in this encounter Medications at Time of Discharge Medication Sig Dispensed Refills Start Date End Date acetaminophen (TYLENOL) 325 mg tablet Take 325 mg by mouth every 6 hours. Reported on 12/20/2016 02/22/2017 ALBUTEROL INHL Inhale as directed as needed. Reported on 12/20/2016 02/27/2017 Azelaic Acid 15 % gel Apply topically to affected area daily. Apply to face once daily. Apply sparingly. 50 g 5 02/20/2016 03/18/2016 cyclobenzaprine (FLEXERIL) 10 mg tablet Take 1 Tab by mouth 3 times daily as needed for Muscle Spasms. 20 Tab 0 01/22/2016 03/18/2016 erythromycin with ethanol (EMGEL) 2 % gel Once daily to face after washing. 60 g 5 02/20/2016 03/18/2016 FLUTICASONE PROPIONATE (FLOVENT HFA INHALATION) Inhale [...] 0 12/22/2015 03/18/2016 propranolol (INDERAL) 10 mg tabletIndications:migrain e prevention Take 20 mg by mouth daily. 06/07/2016 sumatriptan (IMITREX) 50 mg tablet Take 1 Tab by mouth once as needed for up to 1 dose for Migraine. May repeat 1 in two hours if needed do not exceed more than 5 per month 9 Tab 11 03/19/2016 09/10/2017 UNKNOWN TO PATIENT Oral control 03/2016 documented [...] on filedocumented in this encounter Care Teams Merchandise Director Relationship Specialty Start Date End Date Abdoulaye Gonzalez PCP - General 12/22/15 04/05/18 documented as of this encounter
--- OUTSIDE RECORDS SUMMARY | 2024-04-14 20:42 | XMS_ITS | Encounter Summary ---
Author Organization [facility] Address [address] [place] [address] Care Team Providers Care Bark Tanner Name Role Phone Abdoulaye Gonzalez Primary Care Provider [phone] Reason for Visit * Reason Onset Date Comments Requesting Sooner Appointment 12/28/2015 Encounter Details Date Type Department Care Team (Late st Contact Info) Description 12/28/2015 Telephone [facility] Urology - [address] [phone] Porfirio Vee MD [address] [place] [address] Requesting Sooner Appointment Social History Tobacco Use Types Packs/Day Years [...] encounter Miscellaneous Notes * Telephone Encounter - DaysiKirby eckertie - 12/29/2015 0914 EDT Tried calling patient to give her an earlier appointment, got her voicemail so I left her a messageto call me back. * Telephone Encounter - Mary Corbin - 12/28/2015 0845 EDT Pt called to get an appt with Dr. Vee as she thinks she has a kidney stone. The sooner marketing writer could find is 01/29. documented in this encounter Plan of Treatment [...] on filedocumented in this encounter Care Teams Bark Tanner Relationship Specialty Start Date End Date MgAlverto gusmantin PCP - General 12/22/15 04/05/18 documented as of this encounter
--- OUTSIDE RECORDS SUMMARY | 2024-04-14 20:43 | XMS_ITS | Encounter Summary ---
Author Organization [facility] Address [address] [place] [address] Care Team Providers Care Licensing Services Clerk Name Role Phone Rina Agosto MD Primary Care Provider [phone] Encounter Details Date Type Department Care Team (Late st Contact Info) Description 05/30/2015 10:08 EDT - 05/30/2015 10:09 EDT Hospital Encounter [address] [address] Rina Albert MD [address] [place] [phone] Discharge Disposition: Home or Self Care Social [...] Functional Status Response Date of Assess ment Because of a physical, menta l, or emotional condition, does this person have difficulty doing errands alone such as visiting a doctor's office or shopping? No 03/09/2015 Cognitive Status Response Date of Assessm ent Because of a physical, menta l, or emotional condition, does this person have serious difficulty concentrating, remembering, or making decisions? No 03/09/2015 documented as of this encounter Discharge Diagnoses Diagnosis L70.0 Acne vulgaris-L70.0[ICD-10-CM] Z79.899 Other prison (current) drug therapy-Z79.899[ICD-10-CM] documented in this encounter Medications at Time of Discharge Medication Sig Dispensed Refills Start Date End Date acetaminophen (TYLENOL) 325 mg tablet Take 325 mg by mouth every 6 hours. Reported on 12/20/2016 02/22/2017 ibuprofen (MOTRIN) 800 mg tablet Take 600 mg by mouth 3 times daily. 06/07/2016 minocycline (MINOCIN, DYNACIN) 100 mg capsule Take 1 Cap by mouth 2 times daily 60 Cap 5 04/14/2015 12/13/2015 montelukast (SINGULAIR) 10 mg tablet Take 1 Tab by mouth at bedtime 90 Tab 2 03/09/2015 11/05/2016 paroxetine (PAXIL) 20 mg tabletIndications:Depres florian,Anxiety Take 1 Tab by mouth daily for 90 days Dose increase. 30 Tab 3 03/31/2015 06/29/2015 documented as of this encounter Discharge Disposition [...] on filedocumented in this encounter Care Teams Licensing Services Clerk Relationship Specialty Start Date End Date Rina Agosto MD [address] [place] [phone] PCP - General 04/27/14 08/07/15 documented as of this encounter
--- OUTSIDE RECORDS SUMMARY | 2024-04-14 20:43 | XMS_ITS | Encounter Summary ---
Author Organization [facility] Address [address] [place] [address] Care Team Providers Care Customer Support Specialist Name Role Phone Rina Agosto MD Primary Care Provider [phone] Reason for Visit * Reason Comments Sore Throat Encounter Details Date Type Department Care Team (Late st Contact Info) Description 11/23/2014 11:10 EDT Office Visit [facility] Adult Primary Care - [address] [id number] Unknown, Provider, Dayna Barrett [address] [place], [place] [address] Agustin Zhang MD [address] [address] [place] [phone] Viral pharyngitis (Primary Dx); Urticaria Discharge Disposition: Auto Discharge Social History Tobacco Use Types Packs/Day Years Used Date Smoking Tobacco: Former Cigarettes Q uit: 01/01/2014 Smokeless Tobacco: Never Alcohol Use Standard Drinks/Week Comments Yes 0 (1 standard drink = 0.6 oz pur e alcohol) rare, once a month Comments Yes Sex and Gender Information Value Date Recorded Sex Assigned at Not on file Gender Identity Not on file Sexual Orientation Not on file documented as of this encounter Last Filed Vital Signs Vital Sign Reading Time Taken Comments Blood Pressure 118/78 11/23/2014 1125 EDT Pulse 80 11/23/2014 1125 EDT Temperature 36.3 ??C (97.3 ??F) 11/23/2014 1125 EDT Respiratory Rate 20 11/23/2014 1125 EDT Oxygen Saturation - - Inhaled Oxygen Concentration - - Weight 95.3 kg (210 lb) 11/23/2014 1125 EDT Height - - Body Mass Index 36.05 07/26/2014 1437 EST documented in this encounter Discharge Diagnoses Diagnosis 462. ACUTE PHARYNGITIS[ICD-9-CM] 708.9 URTICARIA NOS[ICD-9-CM] documented in this encounter Patient Instructions * Patient Instructions* Agustin Zhang MD - 11/23/2014 11:53 EDT Take loratadine (Claritin) once daily, first thing in the morning documented in this encounter Discharge Disposition Disposition Code Departure Means Destination Auto Discharge documented in this encounter Progress Notes * Dayna Barrett MD - 11/23/2014 1415 EDT I discussed the the patient with the resident at the time of the patient's visit. I agree with the findings and plan of care documented in the resident's note. Likely viral pharyngitis. 14:15 11/23/2014 Dayna Barrett MD * Agustin Zhang MD - 11/23/2014 1303 EDT CC: Chief Complaint Patient presents with ??? Sore Throat HPI: 24yo woman presents with 5-6 days of sore throat. She states that her boyfriend's son was sickwith a URI approximately one week ago and shortly after she developed symptoms. She has pain with swallowing liquids and solids but denies choking or difficulty swallowing. She denies fever, cough, rhinorrhea. She may have fatigue but she is in her 3rd trimester so is unsure. She also has seasonal allergies for which she has been taking benadryl qhs prn. ROS: The pertinent positives and negatives are noted in the subjective. Additionally, denies shortness of breath, chest pain, abdominal pain or reflux. She complains of occasional diffuse urticaria, which she also had in her 1st trimester. PMH: Patient Active Problem List Diagnosis ??? Endometriosis ??? ACL injury tear ??? Acute meniscal tear of knee ??? Depression ??? Abnormal Pap smear of cervix ??? Supervision of normal first ??? BMI 32.0-32.9,adult Current Outpatient Prescriptions on File Prior to Visit Medication Sig Dispense Refill ??? acetaminophen (TYLENOL) 325 mg tablet Take 325 mg by mouth every 6 hours. ??? albuterol 90 mcg/actuation inhaler Inhale 2 Puffs as directed every 4 hours as needed for Wheezing 18 g 1 ??? VIT/IRON FUMARATE/FA ( ORAL) Take 1 Tab by mouth daily. No current facility-administered medications on file prior to visit. OBJECTIVE: Physical examination Blood pressure 118/78, pulse 80, temperature 36.3 ??C (97.3 ??F), temperature source Tympanic, resp. rate 20, weight 95.255 kg (210 lb), last menstrual period 05/08/2014. General: Alert and oriented, in no acute distress HEENT: Enlarged tonsils, although visible space between them. No exudates appreciated. Neck: nontender, no cervical lymphadenopathy CVS: RRR, S1+S2 normal, no murmurs/rubs/gallop Resp: Clear to ausculation bilaterally, no crackles or wheeze Abdomen: gravid ASSESSMENT: 24 y.o. female who presents with less than 1 week of sore throat in the setting of seasonal allergies and a sick child at home. Symptoms are most likely secondary to viral pharyngitis vs allergies. She only meets 1 Centor criterion (absence of cough). PLAN: Pharyngitis: -supportive care -Recommended loratidine for allergies, although unclear whether those are contributing to her symptoms. DISPOSITION: Call clinic if symptoms fail to improve in 1 week Case discussed with Dr Nena Zhang MD 11/23/2014 13:03 documented in this encounter Plan of Treatment Not on file documented as of this encounter Goals Goal Patient Goal Type Associated Problems Recent Progress Patient-Stated? Author Blood Pressure < 130/80 Blood Pressure 118/78(2017 16:01 EDT) No Rina Agosto MD Weight Loss General Yes Rina Agosto MD Note: Goal = 145lbs documented as of this encounter Visit Diagnoses Diagnosis Viral pharyngitis- Primary Acute pharyngitis Urticaria Urticaria, unspecified documented in this encounter Care Teams Customer Support Specialist Relationship Specialty Start Date End Date Rina Agosto MD [address] [place] [phone] PCP - General 04/27/14 08/07/15 documented as of this encounter
--- OUTSIDE RECORDS SUMMARY | 2024-04-14 20:43 | XMS_ITS | Encounter Summary ---
Author Organization [facility] Address [address] [place] [address] Care Team Providers Care Commercial Producer Name Role Phone Amanda Larson MD Primary Care Provider [phone] Reason for Visit * Reason Comments Flank Pain R flank pain today. dx kidney stone at urgent care this am. worse pain past 20 min. 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 Encounter Details Date Type Department Care Team (Late st Contact Info) Description 12/18/2015 18:27 EDT - 12/18/2015 21:40 EDT Emergency [facility] Emergency Department - Main [address] [address] Emergency, Default, MD Discharge Disposition: Home or Self Care Social [...] Sign Reading Time Taken Comments Blood Pressure 128/80 12/18/2015 1844 EDT Pulse 88 12/18/2015 1844 EDT Temperature 36.6 ??C (97.9 ??F) 12/18/2015 1844 EDT Respiratory Rate 16 12/18/2015 1844 EDT Oxygen Saturation - - Inhaled Oxygen Concentration - - Weight - - Height - - Body Mass Index - - documented in this encounter Functional Status Functional Status Response Date of Assess ment Because of a physical, menta l, or emotional condition, does this person have difficulty doing errands alone such as visiting a doctor's office or shopping? No 12/14/2015 Cognitive Status Response Date of Assessm ent Because of a physical, menta l, or emotional condition, does this person have serious difficulty concentrating, remembering, or making decisions? No 12/14/2015 documented as of this encounter Medications at Time of Discharge Medication Sig Dispensed Refills Start Date End Date acetaminophen (TYLENOL) 325 mg tablet Take 325 mg by mouth every 6 hours. Reported on 12/20/2016 02/22/2017 clindamycin (CLINDAGEL) 1 % gel Apply topically to affected areas on chest and back once daily. You can apply to face in the morning. Use thin film. 60 g 5 05/30/2015 02/20/2016 ibuprofen (MOTRIN) 800 mg tablet Take 600 mg by mouth 3 times daily. 06/07/2016 montelukast (SINGULAIR) 10 mg tablet Take 1 Tab by mouth at bedtime 90 Tab 2 03/09/2015 11/05/2016 oxyCODONE-acetaminophe n (PERCOCET) 5-325 mg per tablet Take 1 Tab by mouth every 6 hours as needed for Pain. Earliest Fill Date: 12/18/15 Daily Max: 4 Tabs 10 Tab 0 12/18/2015 12/21/2015 propranolol (INDERAL) 10 mg tabletIndications:migr massiel prevention [...] may sting. 20 g 5 05/30/2015 02/20/2016 documented as of this encounter Discharge Disposition Disposition Code Departure Means Destination Home or Self Care documented in this encounter ED Notes * Rina Darden RN - 12/18/2015 9156 EDT Pt not in WR when called to room. documented in this encounter Plan of Treatment [...] filedocumented in this encounter Care Teams Commercial Producer Relationship Specialty Start Date End Date Amanda Larson MD [address] [place] [address] [place] [address] PCP - General 08/08/15 12/21/15 documented as of this encounter
--- OUTSIDE RECORDS SUMMARY | 2024-04-14 20:43 | XMS_ITS | Encounter Summary ---
Author Organization [facility] Address [address] [place] [address] Care Team Providers Care Portfolio Director Name Role Phone Rina Agosto MD Primary Care Provider [phone] Encounter Details Date Type Department Care Team (Late st Contact Info) Description 05/30/2015 Phlebotomy Only [facility] [address] [place] [address] Printing Bindery Assistant, Outpatient Acne vulgaris; Encounter for long-term (current) use of medications Social History Tobacco Use Types Packs/Day Years [...] No 03/09/2015 documented as of this encounter Plan of Treatment Not on file documented as of this encounter Goals Goal Patient Goal Type Associated Problems Recent Progress Patient-Stated? Author Blood Pressure < 130/80 Blood Pressure 118/78(2017 16:01 EDT) No Rina Agosto MD Weight Loss General Yes Rina Agosto MD Note: Goal = 145lbs documented as of this encounter Visit Diagnoses Diagnosis Acne vulgaris Other acne Encounter for long-term (current) use of medications Encounter for long-term (current) use of other medications documented in this encounter Orders Lab Orders Without Results Count Last Ordered D ate First Ordered Date POTASSIUM 1 05/30/2015 documented in this encounter Care Teams Portfolio Director Relationship Specialty Start Date End Date Rina Agosto MD [address] [place] [phone] PCP - General 04/27/14 08/07/15 documented as of this encounter
--- OUTSIDE RECORDS SUMMARY | 2024-04-14 20:43 | XMS_ITS | Encounter Summary ---
Author Organization [facility] Address [address] [place] [address] Care Team Providers Care Clipper Machine Name Role Phone Rina Agosto MD Primary Care Provider [phone] Reason for Visit * Reason Onset Date Comments Referral Request 03/10/2015 706.1 (ICD-9-CM ) - Acne, unspecified acne type Encounter Details Date Type Department Care Team (Late st Contact Info) Description 03/10/2015 Telephone [facility] Dermatology [address] [address] Rina Albert MD [address] [place] [phone] Referral Request (706.1 (ICD-9-CM) - Acne, unspecified acne type) Social History Tobacco Use Types Packs/Day Years [...] No 03/09/2015 documented as of this encounter Miscellaneous Notes * Telephone Encounter - Christine Elias - 03/10/2015 1357 EDT Patient schedule for 05/30/15 Christine Elias 03/10/2015 13:58 * Telephone Encounter - Nicol Forte - 03/10/2015 1137 EDT Rina Agosto MD Diagnosis: Acne, unspecified acne type Department: [facility] Sched Instruct: 25yo woman with cystic acne. Used to be on minocycline but now . Also mole on back Please call patient to schedule appointment documented in this encounter Plan of Treatment [...] on filedocumented in this encounter Care Teams Clipper Machine Relationship Specialty Start Date End Date Rina Agosto MD [address] [place] [phone] PCP - General 04/27/14 08/07/15 documented as of this encounter
--- OUTSIDE RECORDS SUMMARY | 2024-04-14 20:43 | XMS_ITS | Encounter Summary ---
Author Organization [facility] Address [address] [place] [address] Care Team Providers Care Disposal Operator Name Role Phone Amanda Larson MD Primary Care Provider [phone]- [phone] Reason for Visit * Reason Comments Abdominal Pain Pt states she has a left ovarian cyst and has been under the care of her SHOT TUBE MACHINE TENDER. Pt states she developed abdominal pain 4 days ago and bnow pt states I feel like I'm having contractions. Pt is slightly diaphoretic in triage. Encounter Details Date Type Department Care Team (Late st Contact Info) Description 12/13/2015 11:28 EDT - 12/13/2015 16:34 EDT Emergency [facility] Emergency Department - Main [place] [address], [place] [id number] Daisy Corona PA-C [address] [facility], Level [address] [place] [phone] Emergency, MD Jay Lower abdominal pain (Primary Dx) Discharge Disposition: Home or [...] Sign Reading Time Taken Comments Blood Pressure 125/90 12/13/2015 1633 EDT Pulse 82 12/13/2015 1633 EDT Temperature 36.5 ??C (97.7 ??F) 12/13/2015 1633 EDT Respiratory Rate 16 12/13/2015 1633 EDT Oxygen Saturation 100% 12/13/2015 1633 EDT Inhaled Oxygen Concentration - - Weight 90.7 kg (200 lb) 12/13/2015 1139 EDT Height 162.6 cm (5' 4.02) 12/13/2015 1139 EDT Body Mass Index 34.31 12/13/2015 1139 EDT documented in this encounter Functional Status [...] 03/09/2015 documented as of this encounter Discharge Instructions * Discharge Instructions* Daisy Corona PA - 12/13/2015 16:12 EDT Laboratory results are stable Ultrasound shows no evidence for acute process. Follow-up with OB specialist at your scheduled appointment tomorrow Return to the Emergency Department (ED) if your condition worsens, does not improve as expected, orother new concerns arise. Specifically return if you have new or uncontrolled pain, high fever, difficulty breathing, vomiting and unable to keep down fluids or medications, or any other concerns. * Attachments The following attachments cannot be sent through Care Everywhere. * ABDOMINAL PAIN (TONGAN) documented in this encounter Medications at Time [...] 2 03/09/2015 11/05/2016 propranolol (INDERAL) 10 mg tabletIndications:migr massiel prevention [...] documented in this encounter ED Notes * Daisy Corona PA - 12/13/2015 1613 EDT DOS: 12/13/2015 Chief Complaint Patient presents with ??? Abdominal Pain Pt states she has a left ovarian cyst and has been under the care of her SHOT TUBE MACHINE TENDER. Pt states she developed abdominal pain 4 days ago and bnow pt states I feel like I'm having contractions. Pt is slightly diaphoretic in triage. HPI The patient is a 25 y.o. female who presents today with Abdominal Pain HPI Comments: Patient is a 25-year-old female past medical history significant for left-sided ovarian cyst, endometriosis, asthma, depression, pending diet he presents the emergency department with worsening lower abdominal/suprapubic discomfort ??4 days. Patient denies fever sweats or chills. Denies vaginal discharge or bleeding. Patient reports that she does not have regular menses. Denies dysuria, hematuria, or frequency. Denies back pain or flank pain The history is provided by the patient and medical records. Review of Systems Review of Systems Constitutional: Positive for activity change. Negative for fever, chills, diaphoresis, appetite change and fatigue. HENT: Negative for congestion and facial swelling. Eyes: Negative. Respiratory: Negative for cough, chest tightness, shortness of breath and wheezing. Cardiovascular: Negative for chest pain, palpitations and leg swelling. Gastrointestinal: Positive for abdominal pain. Negative for nausea, vomiting, diarrhea, constipation, blood in stool, abdominal distention, anal bleeding and rectal pain. Genitourinary: Negative for dysuria, urgency, frequency, hematuria, flank pain, vaginal bleeding, vaginal discharge, difficulty urinating, vaginal pain and pelvic pain. Musculoskeletal: Negative for back pain, arthralgias, neck pain and neck stiffness. Skin: Negative. Neurological: Negative for dizziness, tremors, weakness, light-headedness, numbness and headaches. Psychiatric/Behavioral: Negative. Allergies Allergen Reactions ??? Adhesive Rash ??? Latex, Natural Rubber Rash ??? Tramadol Nausea Only Dizziness Vital Signs Temp: 37.1 ??C (98.8 ??F) Temp src: Temporal Pulse: 93 Heart Rate: 86 BPM Resp: 16 SpO2: 100 % BP: 115/62 mmHg BP Device: BP Machine Patient Position: Semi fowlers BP Cuff Location: Right arm O2 Device: None (Room air) Physical Exam Constitutional: She is oriented to person, place, and time. Vital signs are normal. She appears well-developed and well-nourished. She is cooperative. No distress. HENT: Head: Normocephalic and atraumatic. Mouth/Throat: Oropharynx is clear and moist. Eyes: [...] distension and no mass. There is no hepatosplenomegaly. There is tenderness in the suprapubic area. There is no rigidity, no rebound, no guarding and no CVA tenderness. She reports some mild discomfort to palpation in the suprapubic area without rebound or guarding orrigidity noted. Musculoskeletal: Normal range of motion. She exhibits no edema or tenderness. Neurological: She is alert and oriented to person, place, and time. She exhibits normal muscle tone. Coordination normal. Skin: Skin is warm and dry. She is not diaphoretic. Psychiatric: She has a normal mood and affect. Nursing note and vitals reviewed. RESULTS EKG orders: None Radiology orders: RAD US PELVIS, TRANSVAGINAL, AND LIMITED DOPPLER Imaging Reviewed. I have independently reviewed the images. There are no significant abnormalities ED Lab Results Labs Reviewed BUN - Abnormal BUN 9 (*) Final ELECTROLYTES - Abnormal CO2 23 (*) Final Sodium 142 Final Potassium 4.7 Final Chloride 107 Final HEMAGRAM AND DIFFERENTIAL - Abnormal MCV 80 (*) Final RDW-SD 36.8 (*) Final WBC 9.04 Final RBC 4.78 Final Hemoglobin 13.2 Final HCT 38.2 Final MCH 27.6 Final MCHC 34.6 Final RDW-CV 12.9 Final PLT 257 Final MPV 10.7 Final Neutrophils 67.2 Final Lymphocytes 23.3 Final Monocytes 7.4 Final Eosinophils 0.9 Final Basophils 0.6 Final Immature Grans 0.6 Final ABS Neutrophils 6.08 Final ABS Lymphs 2.11 Final ABS Monocytes 0.67 Final ABS Eosinophils 0.08 Final ABS Basophils 0.05 Final ABS Immature Grans 0.05 Final Type of Diff: Automated Final POCT URINE DIPSTICK - Abnormal Blood 2+ (*) Final Color YELLOW Final Clarity, UA Clear Final Glucose Neg Final Bilirubin Neg Final Ketones Neg Final Specific [place] 1.020 Final pH 5.5 Final Protein Neg Final Urobilinogen 0.2 Final Nitrite Neg Final Leuk Esterase Neg Final Tech ID [id number] Final CREATININE Creatinine 0.60 Final GFR, Calculated 127 Final POCT TEST, CLINITEK UPT Result Neg Final Tech ID [id number] Final Procedures ED COURSE A medical screening exam was performed. The patient is a 25-year-old female presents the emergency department for evaluation of suprapubic discomfort with a known left-sided ovarian cyst that is beenfollowed by SHOT TUBE MACHINE TENDER as well as a history of endometriosis. Patient is stable on exam with normal vital signs. Patient has mild discomfort to palpation the suprapubic area without rebound guarding or rigidity. Patient's laboratory work is stable. Negative UPT. Ultrasound shows no change of the ovarian cyst. No evidence for active bleeding or fluid in the cul-de-sac. Patient was reassured. The patient has a follow-up with SHOT TUBE MACHINE TENDER already scheduled for tomorrow and will keep this appointment for follow-up. At this time she will continue with conservative measures with anti- inflammatory's, warm compresses,. Diet as tolerated. ED return precautions discussed. ASSESSMENT AND PLAN Final diagnoses: Lower abdominal pain ED Current Prescriptions None DISPOSITION: Discharged The patient's pain was managed to an adequate level weighing risk vs. benefit of further medications. Upon departure from the Emergency Department, the patient's pain was 4 on a zero to ten scale. Condition at departure from the Emergency Department: Stable PCP: Amanda Larson MDM Number of Diagnoses or Management Options Lower abdominal pain: new, needed workup Amount and/or Complexity of Data Reviewed Clinical lab tests: ordered and reviewed Tests in the radiology section of CPT??: ordered and reviewed Independent visualization of images, tracings, or specimens: yes (No acute process noted.) Risk of Complications, Morbidity, and/or Mortality Presenting problems: low Diagnostic procedures: low Management options: low Patient Progress Patient progress: stable Manny Street was available for supervision. 12/13/2015 16:13 No flowsheet data found. * Yamilka Tavares RN - 12/13/2015 1518 EDT Pt to US and return to ed Bedside Nursing report to Carmelo IBARRA * Yamilka Tavares RN - 12/13/2015 1407 EDT First observed pt resting on stretcher , sleeping with pt Plan is for tranvaginal US documented in this encounter Plan of Treatment [...] Priority Date/Time Associated Diagnosis Comments RAD US PELVIS, TRANSVAGINAL, AND LIMITED DOPPLER 12/13/2015 15:06 EDT COMPLETE BLOOD COUNT AND DIFFERENTIAL STAT 12/13/2015 13:03 EDT BUN STAT 12/13/2015 13:03 EDT CREATININE STAT 12/13/2015 13:03 EDT ELECTROLYTES STAT 12/13/2015 13:03 EDT POCT URINE DIPSTICK, CLINITEK STAT 12/13/2015 12:57 EDT POCT TEST, CLINITEK STAT 12/13/2015 12:54 EDT documented in this encounter Results * RAD US PELVIS, TRANSVAGINAL, AND LIMITED DOPPLER (12/13/2015 15:06 EDT) Anatomical Region Laterality Modality Other 12/13/2015 15:0 6 EDT 12/13/2015 17:17 EDT Narrative 12/13/2015 17:17 EDT RAD US PELVIS, TRANSVAGINAL, AND LIMITED DOPPLER ??12/13/2015 3:06 PM Signs and Symptoms/Comments: ??PELVIC PAIN, NEG HCG, DIRECTOR GRAPHICS, known ovarian cyst with increased pain/nausea Technique: Grayscale, cine and Doppler ultrasound images of the pelvis were obtained, first transabdominally, and then transvaginally to better delineate the adnexa. Comparison: 06/08/2014 Findings: LMP: 10/12/2015 The uterus is anteverted and normal in appearance, measuring 7 x 3.8 x 5.9 cm. The cervix is without significant finding, small nabothian cysts are noted. The endometrial stripe has a uniform echotexture and measures 8 mm in double-thickness diameter. The right ovary measures 3 x 1.5 x 2 cm and demonstrates normal arterial and venous waveforms. The left ovary measures 4.5 x 2.5 x 3 cm and demonstrates normal arterial and venous waveforms. There is an anechoic cyst measuring 3.4 x 2.5 x 2.4 cm. There is no free fluid in the cul-de-sac. IMPRESSION: 1. Physiologic cyst of the left ovary. No torsion. 2. Otherwise, pelvic ultrasound within normal limits. ?? I have personally reviewed the images and the above interpretation and agree with the findings. Procedure Note Carmelo Flores MD - 12/13/2015 RAD US PELVIS, TRANSVAGINAL, AND LIMITED DOPPLER 12/13/2015 3:06 PM Signs and Symptoms/Comments: PELVIC PAIN, NEG HCG, DIRECTOR GRAPHICS, known ovarian cyst with increased pain/nausea Technique: Grayscale, cine and Doppler ultrasound images of the pelvis were obtained, first transabdominally, and then transvaginally to better delineate the adnexa. Comparison: 06/08/2014 Findings: LMP: 10/12/2015 The uterus is anteverted and normal in appearance, measuring 7 x 3.8 x 5.9 cm. The cervix is without significant finding, small nabothian cysts are noted. The endometrial stripe has a uniform echotexture and measures 8 mm in double-thickness diameter. The right ovary measures 3 x 1.5 x 2 cm and demonstrates normal arterial and venous waveforms. The left ovary measures 4.5 x 2.5 x 3 cm and demonstrates normal arterial and venous waveforms. There is an anechoic cyst measuring 3.4 x 2.5 x 2.4 cm. There is no free fluid in the cul-de-sac. IMPRESSION: 1. Physiologic cyst of the left ovary. No torsion. 2. Otherwise, pelvic ultrasound within normal limits. I have personally reviewed the images and the above interpretation and agree with the findings. Daisy Corona PA-C IMVerónica US ORDERABLE S * (ABNORMAL) HEMAGRAM AND DIFFERENTIAL (12/13/2015 13:03 EDT) WBC 9.04 4.0 - 12.4 K/cmm 12/13/2015 13:19 [facility] RBC 4.78 3.86 - 5.04 M/cmm 12/13/2015 13:19 [facility] Hemoglobin 13.2 11.6 - 15.2 gm/dl 12/13/2015 13:19 [facility] HCT 38.2 34.9 - 44.4 % 12/13/2015 13:19 [facility] MCV 80(L) 81 - 98 fl 12/13/2015 13:19 [facility] MCH 27.6 26.7 - 33.3 pg 12/13/2015 13:19 [facility] MCHC 34.6 32.1 - 35.9 gm/dl 12/13/2015 13:19 [facility] RDW-CV 12.9 11.7 - 14.6 % 12/13/2015 13:19 [facility] RDW-SD 36.8(L) 37.6 - 50.3 fl 12/13/2015 13:19 [facility] PLT 257 141 - 377 K/[facility] 12/13/2015 13:19 [facility] MPV 10.7 9.5 - 12.7 fl 12/13/2015 13:19 [facility] % Neutrophils 67.2 % 12/13/2015 13:19 [facility] % Lymphocytes 23.3 % 12/13/2015 13:19 [facility] % Monocytes 7.4 % 12/13/2015 13:19 [facility] % Eosinophils 0.9 % 12/13/2015 13:19 [facility] % Basophils 0.6 % 12/13/2015 13:19 [facility] % Immature Grans 0.6 % 12/13/2015 13:19 [facility] ABS Neutrophils 6.08 2.20 - 8.85 K/cm 12/13/2015 13:19 [facility] ABS Lymphs 2.11 1.09 - 3.30 K/cm 12/13/2015 13:19 [facility] ABS Monocytes 0.67 0.1 - 0.8 K/cm 12/13/2015 13:19 [facility] ABS Eosinophils 0.08 0.03 - 0.61 K/cm 12/13/2015 13:19 [facility] ABS Basophils 0.05 0.01 - 0.11 K/[facility] 12/13/2015 13:19 [facility] ABS Immature Grans 0.05 0 - 0.06 K/cm 12/13/2015 13:19 [facility] Type of Diff: Automated 12/13/2015 13:19 EDT [facility] Blood specimen (specimen) BLOOD SPECIMEN / Unknown 12/13/2015 13:03 EDT 12/13/2015 13:14 EDT Daisy Corona PA-C PACKAGES & DNA P ROBE ORDERABLES Performing Organization Address [facility] de Phone Number [facility] [address] [place] [address] * (ABNORMAL) ELECTROLYTES (12/13/2015 13:03 EDT) Sodium 142 136 - 145 mEq/L 12/13/2015 13:32 EDT [facility] Potassium 4.7 3.5 - 5.0 mEq/L 12/13/2015 13:32 EDT [facility] Chloride 107 96 - 110 mEq/L 12/13/2015 13:32 EDT [facility] CO2 23(L) 24 - 32 mEq/L 12/13/2015 13:32 EDT [facility] Blood specimen (specimen) BLOOD SPECIMEN / Unknown 12/13/2015 13:03 EDT 12/13/2015 13:14 EDT Daisy Corona PA-C CHEMISTRY & BLOO D GAS ORDERABLES Performing Organization Address [facility] de Phone Number [facility] [address] [place] [address] * CREATININE (12/13/2015 13:03 EDT) Creatinine 0.60 0.52 - 1.04 mg/dl 12/13/2015 13:32 EDT [facility] GFR, Calculated 127 >60 ml/min/1.7 3m2 12/13/2015 13:32 EDT [facility] Comment: eGFR calculated using CKD-EPI equation for non Americans. Multiply eGFR by 1.16 for Americans. Blood specimen (specimen) BLOOD SPECIMEN / Unknown 12/13/2015 13:03 EDT 12/13/2015 13:14 EDT Daisy Corona PA-C CHEMISTRY & BLOO D GAS ORDERABLES Performing Organization Address City/[facility]/ZIP Co de Phone Number [facility] [address] [place] [address] * (ABNORMAL) BUN (12/13/2015 13:03 EDT) BUN 9(L) 10 - 26 mg/dl 12/13/2015 13:32 EDT [facility] Blood specimen (specimen) BLOOD SPECIMEN / Unknown 12/13/2015 13:03 EDT 12/13/2015 13:14 EDT Daisy Corona PA-C CHEMISTRY & BLOO D GAS ORDERABLES Performing Organization Address [facility] Co de Phone Number [facility] [address] [place] [address] * (ABNORMAL) POCT URINE DIPSTICK (12/13/2015 12:57 EDT) Color YELLOW 12/13/2015 12:59 EDT [facility] Clarity, UA Clear 12/13/2015 12:59 EDT [facility] Glucose Neg Neg 12/13/2015 12:59 EDT [facility] Bilirubin Neg Neg 12/13/2015 12:59 EDT [facility] Ketones Neg Neg 12/13/2015 12:59 EDT [facility] Specific [place] 1.020 1.001 - 1.035 12/13/2015 12:59 EDT [facility] Blood 2+(A) Neg 12/13/2015 12:59 EDT [facility] pH 5.5 4.6 - 8.0 12/13/2015 12:59 EDT [facility] Protein Neg Neg 12/13/2015 12:59 EDT [facility] Urobilinogen 0.2 0.2 - 1.0 E.U./dl 12/13/2015 12:59 EDT [facility] Nitrite Neg Neg 12/13/2015 12:59 EDT [facility] Leuk Esterase Neg Neg 12/13/2015 12:59 EDT [facility] american board certified orthotist ID [id number] 12/13/2015 12:59 EDT [facility] Comment:Test performed at [facility] Urine specimen (specimen) URINE / Unknown 12/13/2015 12:57 EDT 12/13/2015 12:59 EDT Daisy Corona PA-C POINT OF CARE TE ST ORDERABLES Performing Organization Address [facility] Co de Phone Number [facility] [address] [place] [address] * POCT TEST, CLINITEK (12/13/2015 12:54 EDT) UPT Result Neg Neg 12/13/2015 13:03 EDT [facility] american board certified orthotist ID [id number] 12/13/2015 13:03 EDT [facility] Comment:Test performed at [facility] Urine specimen (specimen) URINE / Unknown 12/13/2015 12:54 EDT 12/13/2015 13:03 EDT Daisy Corona PA-C POINT OF CARE TE ST ORDERABLES Performing Organization Address [facility] de Phone Number [facility] [address] [place] [phone] documented in this encounter Visit Diagnoses Diagnosis Lower abdominal pain- Primary Abdominal pain, other specified site documented in this encounter Discontinued Medications Medication Sig Discontinue Reason Start Date End Da te minocycline (MINOCIN, DYNACIN) 100 mg capsule Take 1 Cap by mouth 2 times daily 04/14/2015 12/13/2015 documented as of this encounter Orders Nursing Count Last Ordered Date First Orde red Date INSERT PERIPHERAL IV 1 12/13/2015 documented in this encounter Care Teams Disposal Operator Relationship Specialty Start Date End Date Amanda Larson MD [address] [place] [address] [place] [address] PCP - General 08/08/15 12/21/15 documented as of this encounter
--- OUTSIDE RECORDS SUMMARY | 2024-04-14 20:43 | XMS_ITS | Encounter Summary ---
Author Organization [facility] Address [address] [place] [address] Care Team Providers Care Podiatric Foot And Ankle Specialist Name Role Phone Rina Agosto MD Primary Care Provider [phone] Encounter Details Date Type Department Care Team (Late st Contact Info) Description 05/30/2015 Phlebotomy Only [facility] [address] [place] [address] Shank Taper, Outpatient Social History Tobacco Use Types Packs/Day [...] on filedocumented in this encounter Care Teams Podiatric Foot And Ankle Specialist Relationship Specialty Start Date End Date Rina Agosto MD [address] [place] [phone] PCP - General 04/27/14 08/07/15 documented as of this encounter
--- OUTSIDE RECORDS SUMMARY | 2024-04-14 20:43 | XMS_ITS | Encounter Summary ---
Author Organization [facility] Address [address] [place] [id number] Care Team Providers Care Tapper Shank Name Role Phone Amanda Larson MD Primary Care Provider [phone]- [phone] Reason for Visit * Reason Comments Abdominal Pain bilateral cramping Encounter Details Date Type Department Care Team (Late st Contact Info) Description 12/05/2015 8:57 EDT - 12/05/2015 11:53 EDT Hospital Encounter [facility] - [address] [id number] Giana Nagy MD [address] [place] [address] Abdominal pain, unspecified abdominal location (Primary Dx); Endometriosis; Acute pelvic pain, female Discharge Disposition: Home or Self Care Social [...] Sign Reading Time Taken Comments Blood Pressure 110/80 12/05/2015 0918 EDT Pulse 68 12/05/2015 0918 EDT Temperature 36.6 ??C (97.8 ??F) 12/05/2015 0918 EDT Respiratory Rate 16 12/05/2015 0918 EDT Oxygen Saturation - - Inhaled Oxygen [...] as of this encounter Discharge Diagnoses Diagnosis N80.9 Endometriosis, unspecified-N80.9[ICD-10-CM] N94.9 Unspecified condition associated with female genital organs and menstrual cycle-N94.9[ICD-10-CM] documented in this encounter Discharge Instructions * Discharge Instructions* Giana Nagy MD - 12/05/2015 11:49 EDT Use ibuprofen 400 mg four times a day starting at 5:00 PM today. Use this today and tomorrow. [facility] Return for fever, worsening pain, vomiting or pain with urination. documented in this encounter Medications at Time [...] Care Walk-out Home documented in this encounter Progress Notes * Rina Obando - 12/06/2015 1544 EDTQuick Note: Normal, please contact the patient to tell her about the results. No changes in therapy are needed.Result letter sent documented in this encounter ED Notes * Savi Herring RN - 12/05/2015 1116 EDT Pt name and verified prior to medication administration.?? Pt instructed on use, side effects and adverse reactions.?? Call haile within reach.?? Pt notified to pull call haile with any changes. * Felecia August MA - 12/05/2015 1054 EDT Examination chaperoned by Felecia August MA. * Giana Nagy MD - 12/05/2015 1025 EDT DOS: 12/05/2015 Chief Complaint Patient presents with ??? Abdominal Pain bilateral cramping The patient is a 25 y.o. female who presents today with Abdominal Pain Abdominal Pain Pain location: LLQ and RLQ Pain quality: cramping (feels like cramps from her menses) Pain radiates to: R flank Pain severity: Severe Onset quality: Gradual Duration: 2 days Timing: Intermittent Progression: Waxing and waning Chronicity: New Context: not trauma Relieved by: Acetaminophen, NSAIDs and heat Associated symptoms: no chest pain, no cough, no dysuria, no fever, no hematuria, no nausea, no shortness of breath, no sore throat, no vaginal discharge and no vomiting last BM was this AM and was not loose or bloody. Pt has not had menses in 55 days. LMP 3/2. Pt is trying to conceive. States that her pain feels like cramping for her period. Trying to conceive. Pt is Induced for preeclampsia at 37 wks. IUD removed 3/5 Hx of endometriosis. Review of Systems Constitutional: Negative for fever. HENT: Negative for congestion and sore throat. Respiratory: Negative for cough and shortness of breath. Cardiovascular: Negative for chest pain. Gastrointestinal: Positive for abdominal pain. Negative for nausea and vomiting. Genitourinary: Negative for dysuria, hematuria and vaginal discharge. Neurological: Positive for headaches (chronic ). Hematological: Negative for adenopathy. No current facility-administered medications for this encounter. Current Outpatient Prescriptions Medication Sig Dispense Refill ??? acetaminophen (TYLENOL) 325 mg tablet Take 325 mg by mouth every 6 hours. ??? clindamycin (CLINDAGEL) 1 % gel Apply topically to affected areas on chest and back once daily.You can apply to face in the morning. Use thin film. 60 g 5 ??? ibuprofen (MOTRIN) 800 mg tablet Take 800 mg by mouth 3 times daily ??? minocycline (MINOCIN, DYNACIN) 100 mg capsule Take 1 Cap by mouth 2 times daily 60 Cap 5 ??? montelukast (SINGULAIR) 10 mg tablet Take [...] after washing, may sting. 20 g 5 Allergies Allergen Reactions ??? Adhesive Rash ??? Latex, Natural Rubber Rash ??? Tramadol Nausea Only Dizziness Patient Active Problem List Diagnosis Date Noted ??? BMI 32.0-32.9,adult 07/26/2014 ??? ACL injury [...] OCD Sister ??? Bipolar Disorder Sister BP 110/80 mmHg Pulse 68 Temp(Src) 97.8 ??F (36.6 ??C) (Tympanic) Resp 16 Physical Exam Constitutional: She is oriented to person, place, and time. She appears well- developed and well-nourished. Cardiovascular: Normal rate, regular rhythm and normal heart sounds. Pulmonary/Chest: Effort normal and breath sounds normal. No respiratory distress. She has no wheezes. She has no rhonchi. She has no rales. Abdominal: She exhibits no mass. There is no tenderness. There is no guarding. Genitourinary: There is no rash on the right labia. There is no rash on the left labia. Uterus is not enlarged, not fixed and not tender. Cervix exhibits no motion tenderness and no discharge. Right adnexum displays no mass and no tenderness. Left adnexum displays no mass and no tenderness. No bleeding in the vagina. Lymphadenopathy: Right: No inguinal adenopathy present. Left: No inguinal adenopathy present. Neurological: She is alert and oriented to person, place, and time. Skin: Skin is warm, dry and intact. No rash noted. Psychiatric: She has a normal mood and affect. Nursing note and vitals reviewed. Consult orders: None PCP: Amanda Larson Results for orders placed or performed during the hospital encounter of 12/05/15 TEST, URINE Result Value Ref Range Result- Test, Ur Neg Neg URINE MICROSCOPIC ONLY Result Value Ref Range WBC, UA less than 1 0 - 5 /HPF RBC, UA 10 to 50 0 - 5 /HPF Squam Epithel, UA Few (A) None seen /HPF Renal Epithel, UA None seen None seen /HPF Bacteria, UA None seen None seen /HPF Crystals, UA None seen /HPF Casts, UA None seen /LPF UA Comment Microscopic results POCT URINE DIPSTICK Result Value Ref Range Color YELLOW Clarity, UA Clear Glucose Neg Neg Bilirubin Neg Neg Ketones Neg Neg Specific [place] 1.015 1.001 - 1.035 Blood 2+ (A) Neg pH 5.5 4.6 - 8.0 Protein Neg Neg Urobilinogen 0.2 0.2 - 1.0 E.U./dl Nitrite Neg Neg Leuk Esterase Neg Neg Tech ID [id number] No orders to display Radiology orders: None Imaging Results None No orders to display Procedures Course: A medical screening exam was performed. Pt with pelvic cramping, blood in urine and no bleeding seen on pelvic exam. DD includes but is not exclusive for beginning menses, UTI, STI, bladder polyp. Ptrx'd with toradol and ondansetron with good relief of pain. 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 Urine should be rechecked for blood if cx is negative and has not had menses. Will need w/up if persists. Disposition: No disposition on file The patient's pain was managed to an adequate level weighing risk vs. benefit of further medications. Upon departure from [facility], the patient's pain was 4 on a zero to ten scale. Condition at departure from the [facility] : Improved Final diagnoses: Abdominal pain, unspecified abdominal location No supervision required. [facility] 12/05/2015 10:25 * Savi Herring RN - 12/05/2015 0936 EDT 25 y/o F presents with lower abdominal cramping/pain x 2 days. States she feels like she is going to start her period, but has not gotten a period in 55 days. She is not currently using any control, states she is trying to get at this time. Took a home test, which was negative. Rating the pain 9/10, rating to her lower back. Used to get really bad back pains with her periods. States she has hx of endometriosis. Taking tylenol (last dose today at 7am) and ibuprofen for the pain. Of note did have her Linnea IUD removed October 13 2015. Denies: urinary frequency/urgency/dysuria, changes to last BM (normal per patient), nausea/vomiting * Felecia August MA - 12/05/2015 0909 EDT Pt informed UPT will be run on urine sample. documented in this encounter Plan of Treatment [...] Associated Diagnosis Comments ED/URGENT CARE ADD-ON STAT 12/05/2015 11:10 EDT Abdominal pain, unspecified abdominal location CHLAMYDIA/N. GONORRHOEAE AMPLIFIED NUCLEIC ACID Routine 12/05/2015 10:55 EDT Abdominal pain, unspecified abdominal location Endometriosis ZZVAGINITIS EXAM STAT 12/05/2015 10:5 5 EDT Endometriosis URINE SEDIMENT (MICRO) WITHOUT REFLEX TO CULTURE STAT 12/05/2015 9:30 EDT Abdominal pain, unspecified abdominal location POCT URINE DIPSTICK, CLINITEK STAT 12/05/2015 9:17 EDT Abdominal pain, unspecified abdominal location TEST, URINE STAT 12/05/2015 9:10 EDT Abdominal pain, unspecified abdominal location BACTERIAL CULTURE, URINE Routine 12/05/2015 9:10 EDT documented in this encounter Results * ED/URGENT CARE ADD-ON (12/05/2015 11:10 EDT) Tests to be added URINE CULTURE 12/05/2015 11:20 EDT [facility] Number for problems [id number] (URGENT CARE) 12/05/2015 11:20 EDT [facility] Comment:Performed at [facility] [place], [place] TOPOGRAPHY UNKNOWN / Unknown 12/05/2015 11:10 EDT 12/05/2015 11:41 EDT Giana Nagy MD HEMATOLOGY & PF4 ORDERABLES [facility] [address] [place] [address] * VAGINITIS EXAM (12/05/2015 10:55 EDT) Gram Smear Result Mod Polys 12/05/2015 15:57 EDT [facility] Gram Smear Result Yeast forms 12/05/2015 15:57 EDT [facility] Result No Trichomonas antigen detected. 12/05/2015 11:10 EDT [facility] Result Performed at [facility] [place], [place] 12/05/2015 11:10 EDT [facility] Gram Smear Result Smear consistent with BACTERIAL VAGINOSIS. 12/05/2015 15:57 EDT [facility] Specimen of unknown material (specimen) VAGINAL STRUCTURE / Unknown 12/05/2015 10:55 EDT 12/05/2015 10:58 EDT Giana Nagy MD MICROBIOLOGY - G ENERAL ORDERABLES Performing Organization Address City/[facility]/ZIP Co de Phone Number [facility] [address] [place] [address] * CHLAMYDIA/GC AMPLIFIED (12/05/2015 10:55 EDT) Chlamydia Result No Chlamydia trachomatis DNA detected by industrial cleaner mediated amplification. 12/06/2015 13:30 EDT [facility] GC Result No Neisseria gonorrhoeae DNA detected by industrial cleaner mediated amplification. 12/06/2015 13:30 EDT [facility] Specimen of unknown material (specimen) SPECIMEN FROM UTERINE CERVIX / Unknown 12/05/2015 10:55 EDT 12/05/2015 10:58 EDT Giana Nagy MD MICROBIOLOGY - G ENERAL ORDERABLES Performing Organization Address City/[facility]/ZIP Co de Phone Number [facility] [address] [place] [address] * (ABNORMAL) URINE MICROSCOPIC ONLY (12/05/2015 9:30 EDT) WBC, UA less than 1 0 - 5 /HPF 12/05/2015 9:48 EDT [facility] RBC, UA 10 to 50 0 - 5 /HPF 12/05/2015 9:48 EDT [facility] Squam Epithel, UA Few(A) None seen /HPF 12/05/2015 9:48 EDT [facility] Renal Epithel, UA None seen None seen /HPF 12/05/2015 9:48 EDT [facility] Bacteria, UA None seen None seen /HPF 12/05/2015 9:48 EDT [facility] Crystals, UA None seen /HPF 12/05/2015 9:48 EDT [facility] Hyaline Casts, UA None seen /LPF 12/05/2015 9:48 T [facility] UA Comment Microscopic results 12/05/2015 9:29 T [facility] Comment: are unreliable on urines unrefrig >2hrs or refrig >8hrs. Performed at [place], [place] Urine specimen (specimen) URINE / Unknown 12/05/2015 9:30 EDT 12/05/2015 9:32 EDT Giana Nagy MD URINALYSIS ORDER PIETER [facility] [address] [place] [address] * (ABNORMAL) POCT URINE DIPSTICK (12/05/2015 9:17 EDT) Color YELLOW 12/05/2015 9:28 [facility] Clarity, UA Clear 12/05/2015 9:28 [facility] Glucose Neg Neg 12/05/2015 9:28 [facility] Bilirubin Neg Neg 12/05/2015 9:28 [facility] Ketones Neg Neg 12/05/2015 9:28 [facility] Specific [place] 1.015 1.001 - 1.035 12/05/2015 9:28 [facility] Blood 2+(A) Neg 12/05/2015 9:28 [facility] pH 5.5 4.6 - 8.0 12/05/2015 9:28 [facility] Protein Neg Neg 12/05/2015 9:28 [facility] Urobilinogen 0.2 0.2 - 1.0 E.U./dl 12/05/2015 9:28 [facility] Nitrite Neg Neg 12/05/2015 9:28 [facility] Leuk Esterase Neg Neg 12/05/2015 9:28 [facility] rn ante partum ID [id number] 12/05/2015 9:28 [facility] Comment:Test performed at [facility] Urine specimen (specimen) URINE / Unknown 12/05/2015 9:17 EDT 12/05/2015 9:28 EDT Giana Nagy MD POINT OF CARE TE ST ORDERABLES Performing Organization Address [facility]/ZIP Co de Phone Number [facility] [address] [place] [address] * BACTERIAL CULTURE, URINE (12/05/2015 9:10 EDT) Result No growth 12/06/2015 9:19 EDT [facility] URINE / Unknown 12/05/2015 9 :10 EDT 12/05/2015 11:51 EDT Comment:Performed at [facility], [place], [place] Giana Nagy MD MICROBIOLOGY - G ENERAL ORDERABLES Performing Organization Address [facility] Co de Phone Number [facility] [address] [place] [address] * TEST, URINE (12/05/2015 9:10 EDT) Result- Test, Ur Neg Neg 12/05/2015 9:47 EDT [facility] Comment: NOTE: False negative results may occur in women who are beyond 5-8 weeks gestation. Diagnosis of should be based on a correlation of test results with typical clinical signs and symptoms. Performed at [facility], [place], [place] Urine specimen (specimen) URINE / Unknown 12/05/2015 9:10 EDT 12/05/2015 9:32 EDT Giana Nagy MD URINALYSIS ORDER PIETER Performing Organization Address [facility] Co de Phone Number [facility] [address] [place] [address] documented in this encounter Visit Diagnoses Diagnosis Abdominal pain, unspecified abdominal location- Primary Endometriosis Endometriosis, site unspecified Acute pelvic pain, female Unspecified symptom associated with female genital organs documented in this encounter Administered Medications Inactive Administered Medications - up to 3 most recent administrations Medication Order MAR Action Action Date Dose Rate Site ketOROLAC (TORADOL) injection 60 mg 60 mg, intramuscular, NOW X1, 1 dose, On e 12/05/15 at 1115, Routine Given 12/05/2015 11:12 EDT 60 mg documented in this encounter Historical Medications * This list may reflect changes made after this encounter. Medication Sig Dispensed Refills Start Date End Date propranolol (INDERAL) 10 mg tabletIndications:migrain e prevention Take 20 mg by mouth daily. 06/07/2016 added in this encounter Active and Recently Administered Medications Times are shown in EDT. Scheduled Medication Order 12/03/2015 12/04/2015 12/05/2015 ketOROLAC (TORADOL) injection 60 mg (COMPLETED) 60 mg, intramuscular, NOW X1, 1 dose, On Fri12/05/15 at 1115, Routine 1112 (Given - Provid er: Savi Herring RN) documented in this encounter Care Teams Tapper Shank Relationship Specialty Start Date End Date Amanda Larson MD [address] [place] [address] [place] [address] PCP - General 08/08/15 12/21/15 documented as of this encounter
--- OUTSIDE RECORDS SUMMARY | 2024-04-14 20:43 | XMS_ITS | Encounter Summary ---
Author Organization [facility] Address [address] [place] [address] Care Team Providers Care Specimen Technician Name Role Phone Amanda Larson MD Primary Care Provider [phone]- [phone] Encounter Details Date Type Department Care Team (Latest Contact Info) Description 12/04/2015 11:09 EDT - 12/04/2015 11:47 EDT Hospital Encounter [facility] - [address] [address] Unknown, Provider, Generalized abdominal pain (Primary Dx) Discharge Disposition: Home [...] as of this encounter Discharge Diagnoses Diagnosis R68.89 Other general symptoms and signs-R68.89[ICD-10-CM] documented in this encounter Medications at Time [...] at bedtime 90 Tab 2 03/09/2015 11/05/2016 spironolactone (ALDACTONE) 50 mg tablet Take [...] Agosto MD Weight Loss General Yes Rina gAosto MD Note: Goal = 145lbs documented as of this encounter Visit Diagnoses Diagnosis Generalized abdominal pain- Primary Abdominal pain, generalized documented in this encounter Care Teams Specimen Technician Relationship Specialty Start Date End Date Amanda Larson MD [address] [place] [address] [place] [address] PCP - General 08/08/15 12/21/15 documented as of this encounter
--- OUTSIDE RECORDS SUMMARY | 2024-04-14 20:43 | XMS_ITS | Encounter Summary ---
Author Organization [facility] Address [address] [place] [address] Care Team Providers Care Equal Opportunity Representative Name Role Phone Amanda Larson MD Primary Care Provider +1- [phone] Reason for Visit * Reason Comments Advice Only Encounter Details Date Type Department Care Team (Late st Contact Info) Description 12/14/2015 14:00 EDT Initial consult [facility] Obstetrics & Midwifery - [address] [address] Sonali Wolff MD [address] [place] [address] Abdominal pain in female patient (Primary Dx) Discharge Disposition: Auto Discharge Social [...] Sign Reading Time Taken Comments Blood Pressure 108/72 12/14/2015 1358 EDT Pulse - - Temperature - - Respiratory Rate - - Oxygen Saturation - - Inhaled Oxygen Concentration - - Weight 93 kg (205 lb) 12/14/2015 1358 EDT Height 162.6 cm (5' 4.02) 12/14/2015 1358 EDT Body Mass Index 35.17 12/14/2015 1358 EDT documented in this encounter Functional Status [...] No 12/14/2015 documented as of this encounter Discharge Diagnoses Diagnosis R10.9 Unspecified abdominal pain-R10.9[ICD-10-CM] documented in this encounter Discharge Disposition Disposition Code Departure Means Destination Auto Discharge documented in this encounter Progress Notes * Sonali Wolff MD - 12/22/2015 0910 EDT [facility] ATTG 25 year old here for preconception consultation. Pt with multiple medical issues that we discussed today. I spent 10 minutes of today's 30 minute visit counseling the patient as described above. Sonali Wolff MD * Xiao Castillo MD - 12/14/[address] Cartwright, Thank you for referring your patient, Gladys Lopez for consultation in the [facility] clinic. She is a 25-year-old G1, P1-0-0-1 who presents as a prepregnancy consultation regarding her prior obstetrical history significant for term preeclampsia without severe features. In her previous delivery in 2004, she was diagnosed with preeclampsia without severe features around 37 weeks and was induced witha subsequent a spontaneous vaginal delivery of a 2523 gram male infant. She did not receive magnesium therapy and was on labetalol for a period of time intrapartum but did not require any antihypertensives . Since that delivery, she has been normotensive. Denies any other issues. She recently had her Linnea IUD removed at the beginning of October and has been diagnosed with an ovarian cystand states that she has been on control pills to suppress the cyst at this time. OB History: G1 2014 37-week spontaneous vaginal delivery of a 25:22 gram male infant for preeclampsia without severe features. STUDIO RECEPTIONIST History: History of LSIL Pap in 2011 with normal colpo, normal since history of chlamydia in 2009, endometriosis and left ovarian cyst. Past Medical History: Has mild intermittent asthma and migraines. Past Surgical History: Laparoscopy, wisdom teeth. 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 Family History: Mother with hypertension, a maternal aunt with hypertension. Denies any diabetes. No bleeding or clotting disorders. No genetic or inherited issues. Medications: Albuterol, Singulair, propranolol, spironolactone, clindamycin gel. ALLERGIES: ADHESIVE. Objective: Blood pressure 108/72, weight 205 pounds. General: No acute distress. UPT negative. Assessment and Recommendations: Gladys Lopez is a 25-year-old -0-0-1 with a past obstetrical history of preeclampsia without severe features and mild intermittent asthma. History of preeclampsia without severe features: We discussed that given her prior history of preeclampsia that she is at increased risk in future of developing recurrent preelampsia, though it is reassuring that she developed it at term. Generally recurrent preeclampsia tends to occur around the same time or later in gestation and tends to be milder. We did discuss that she is a candidate for aspirin therapy for preeclampsia prevention and recommend initiating this at the end of the first trimester around 13 weeks, 81 mg daily. Additionally, we would recommend collection of a baseline 24-hour urine as well as HELLP labs early in and close monitoring of her blood pressures throughout. Additionally, given that she had a small infant we would recommend assessment of growth in the third trimester. Mild intermittent asthma: She currently is on albuterol and a low-dose corticosteroid inhaler and is well controlled. We did discuss that should her symptoms increase in then that would warrant serial ultrasounds. Overweight: We did discussed the potential to optimize her weight prior to conception as able, as she is 205 pounds today. Weight loss could decrease her risk for gestational diabetes as well as hypertensive disorders. We did suggest some dietary modifications. Medications: She is currently on propranolol for migraine prevention, which, if she is able should be discontinued during the first trimester, though if needed, is generally not associated with any congenital anomalies. It can be associated with intrauterine growth restriction and thus if she remains on this medication in her we would recommend serial growth ultrasounds. Additionally, we did discuss her acne medication, she should discontinue her use of spironolactone prior to conception. care: We discussed that if she is trying to conceive that she should take a daily prenatalvitamins as well as 1 mg of folic acid daily. Additionally, she should have an early 1 hour GTT dueto her weight. Thank you for referring your patient, Gladys Mills for consultation in the [facility] clinic. Please feel free to contact us should you have any questions or concerns. This patient was seen in conjunction with Dr. Wolff. Sincerely, Xiao Castillo MD Department of Maternal Medicine documented in this encounter Plan of Treatment [...] Associated Diagnosis Comments POCT TEST, CLINITEK Routine 12/14/2015 14:08 EDT Abdominal pain in female patient documented in this encounter Results * POCT TEST, CLINITEK (12/14/2015 14:08 EDT) UPT Result Neg Neg 12/14/2015 14:21 EDT [facility] director experimental medicine ID [id number] 12/14/2015 14:21 EDT [facility] Comment:Test performed at [facility] Urine specimen (specimen) URINE / Unknown 12/14/2015 14:08 EDT 12/14/2015 14:21 EDT Sonali Wolff MD POINT OF CARE TEST O RDERABLES [facility] [address] [place] [address] documented in this encounter Visit Diagnoses Diagnosis Abdominal pain in female patient- Primary Abdominal pain, unspecified site documented in this encounter Care Teams Equal Opportunity Representative Relationship Specialty Start Date End Date Amanda Larson MD [address] [place] [address] [place] [address] PCP - General 08/08/15 12/21/15 documented as of this encounter
--- OUTSIDE RECORDS SUMMARY | 2024-04-14 20:43 | XMS_ITS | Encounter Summary ---
Author Organization [facility] Address [address] [place] [address] Care Team Providers Care Electrical Prospecting Supervisor Name Role Phone Rina Agosto MD Primary Care Provider [phone] [phone] Reason for Visit * Reason Onset Date Comments Leg Pain 12/02/2014 Encounter Details Date Type Department Care Team (Late st Contact Info) Description 12/02/2014 Telephone [facility] Adult Primary Care - [address] [address] Rina Agosto MD [address] [place] [phone] Leg Pain Social History Tobacco Use Types Packs/Day [...] encounter Miscellaneous Notes * Telephone Encounter - June [place] - 12/02/2014 1054 EDT Reason for Call: Leg Pain Summary/Symptoms: Pt phoned PCP office states she has a white spot on her leg with red veins aroundit. Thinks she has a blood clot - SS spoke with Triage who advised patient go to the [facility] as she would need an US to determine blood clot or not. Patient was advised and will go to [facility] June [place] 12/02/2014 10:54 documented in this encounter Plan of Treatment [...] on filedocumented in this encounter Care Teams Electrical Prospecting Supervisor Relationship Specialty Start Date End Date Rina Agosto MD [address] [place] [phone] PCP - General 04/27/14 08/07/15 documented as of this encounter
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
--- OUTSIDE RECORDS SUMMARY | 2024-04-14 20:43 | XMS_ITS | Encounter Summary ---
Author Organization [facility] Address [address] [place] [address] Care Team Providers Care Phlebotomist Name Role Phone Amanda Larson MD Primary Care Provider [phone]- [phone] Reason for Visit * Reason Onset Date Comments Results 12/05/2015 Encounter Details Date Type Department Care Team (Late st Contact Info) Description 12/05/[address] [facility] Urgent Care - [address] [address] Giana Nagy MD [address] [place] [phone] Results Social History Tobacco Use Types Packs/Day [...] No 03/09/2015 documented as of this encounter Ordered Prescriptions Prescription Sig Dispensed Refills Start Date End Da te metroNIDAZOLE (METROGEL) 0.75 % vaginal gel Place 37.5 mg vaginally daily for 5 days. 70 g 0 12/05/2015 12/10/2015 documented in this encounter Miscellaneous Notes * Telephone Encounter - Vandana Lee RN - 12/05/2015 1659 EDT Phone call to patient, advised her of Dr. Albarran note, patient agrees with plan of care. * Telephone Encounter - Giana Nagy MD - 12/05/2015 1649 EDT pls call pt and tell her that testing is positive for both yeast and for bacterial vaginosis. She is trying to get . Will first Rx for bacterial vaginosis with metronidazole vaginal. Once this is finished, can Rx for yeast if experiencing sx.of yeast infection. documented in this encounter Plan of Treatment [...] on filedocumented in this encounter Care Teams Phlebotomist Relationship Specialty Start Date End Date Amanda Larson MD [address] [place] [address] [place] [address] PCP - General 08/08/15 12/21/15 documented as of this encounter
--- OUTSIDE RECORDS SUMMARY | 2024-04-14 20:43 | XMS_ITS | Encounter Summary ---
Author Organization [facility] Address [address] [place] [address] Care Team Providers Care Primer Inserting Machine Operator Name Role Phone Rina Agosto MD Primary Care Provider [phone] [phone] Reason for Visit * Reason Onset Date Comments Asthma 12/22/2014 Encounter Details Date Type Department Care Team (Late st Contact Info) Description 12/22/2014 Telephone [facility] Adult Primary Care - [address] [address] Rina Agosto MD [address] [place] [phone] Asthma Social History Tobacco Use Types Packs/Day [...] on file documented as of this encounter Ordered Prescriptions Prescription Sig Dispensed Refills Start Date End Da te montelukast (SINGULAIR) 10 mg tablet Take 1 Tab by mouth at bedtime 30 Tab 2 12/23/2014 03/09/2015 documented in this encounter Miscellaneous Notes * Telephone Encounter - Kaylee Tyson RN - 12/23/2014 7273 EDT Outgoing call to the patient. She was advised that Dr. Agosto has ordered the Singulair for her to take. She has taken this in the past and therefore does not have any questions regarding the medication. She will follow up if her symptoms fail to improve as anticipated. * Telephone Encounter - Rina Agosto MD - 12/23/2014 0828 EDT OK to use if she has taken it prior to , which our records indicate she has. Script escribed. * Telephone Encounter - Luiz Jang Jr. - 12/22/2014 1423 EDT Reason for Call: Asthma Summary/Symptoms: Patient is asking for a script for singular for her asthma and allergies-having allergies(enviromental); has tried claritan-not working, she is and asked he OB about singulair and it was all right Please call patient if script called in Luzi Jang Jr. 12/22/2014 14:23 documented in this encounter Plan of Treatment [...] on filedocumented in this encounter Care Teams Primer Inserting Machine Operator Relationship Specialty Start Date End Date Rina Agosto MD [address] [place] [phone] PCP - General 04/27/14 08/07/15 documented as of this encounter
--- OUTSIDE RECORDS SUMMARY | 2024-04-14 20:43 | XMS_ITS | Encounter Summary ---
Author Organization [facility] Address [address] [place] [address] Care Team Providers Care Tempering Kiln Tender Name Role Phone Rina Agosto MD Primary Care Provider [phone] [phone] Reason for Visit * Reason Onset Date Comments Medication Management 03/31/2015 Encounter Details Date Type Department Care Team (Late st Contact Info) Description 03/31/2015 Telephone [facility] Adult Primary Care - [address] [address] Rina Agosto MD [address] [place] [phone] Medication Management Social History Tobacco Use Types [...] Start Date End Da te paroxetine (PAXIL) 20 mg tabletIndications:Depressi on,Anxiety Take 1 Tab by mouth daily for 90 days Dose increase. 30 Tab 3 03/31/2015 06/29/2015 documented in this encounter Miscellaneous Notes * Telephone Encounter - Kaylee Tyson RN - 03/31/2015 1146 EDT Chart reviewed. Patient has been on the medication since 02/07/15. Per KB note of same date, RX can be increased to 20 mg if patient is tolerating. * Telephone Encounter - Pricilla Dave - 03/31/2015 1021 EDT Reason for Call: Medication Management Summary/Symptoms: Patient called to inquire about increasing dosage of Paxil - currently on 10 mg tabs. She is currently experiencing a lot of stress related to her family and thinks this may help. To be called into [facility] in [place]. Pricilla Dave 03/31/2015 10:21 documented in this encounter Plan of Treatment Not on file documented as of this encounter Goals Goal Patient Goal Type Associated Problems Recent Progress Patient-Stated? Author Blood Pressure < 130/80 Blood Pressure 118/78(2017 16:01 EDT) No Rina Agosto MD Weight Loss General Yes Rina Agosto MD Note: Goal = 145lbs documented as of this encounter Visit Diagnoses Diagnosis Depression- Primary Depressive disorder, not elsewhere classified Anxiety Anxiety state, unspecified documented in this encounter Discontinued Medications Medication Sig Discontinue Reason Start Date End Da te paroxetine (PAXIL) 10 mg tabletIndications:Depress ion,Anxiety Take 1 Tab by mouth daily for 90 days Reorder 02/25/2015 03/31/2015 documented as of this encounter Care Teams Tempering Kiln Tender Relationship Specialty Start Date End Date Rina Agosto MD [address] [place] [phone] PCP - General 04/27/14 08/07/15 documented as of this encounter
--- OUTSIDE RECORDS SUMMARY | 2024-04-14 20:43 | XMS_ITS | Encounter Summary ---
Author Organization [facility] Address [address] [place] [address] Care Team Providers Care Dough Mixer Name Role Phone Rina Agosto MD Primary Care Provider +1 [phone] Encounter Details Date Type Department Care Team (Late st Contact Info) Description 05/30/2015 Results Only [facility] Dermatology [address]th [address] [address] Rina Albert MD [address] [place] [phone] Social History Tobacco Use Types Packs/Day Years [...] No 03/09/2015 documented as of this encounter Progress Notes * Rina Albert MD - 05/30/2015 1621 EDTQuick Note: Please let the patient know her potassium level is normal. documented in this encounter Plan of Treatment Not on file documented as of this encounter Goals Goal Patient Goal Type Associated Problems Recent Progress Patient-Stated? Author Blood Pressure < 130/80 Blood Pressure 118/78(2017 16:01 EDT) No Rina Agosto MD Weight Loss General Yes Rina Agosto MD Note: Goal = 145lbs documented as of this encounter Procedures Procedure Name Priority Date/Time Associated Diagnosis Comments POTASSIUM Routine 05/30/2015 15:01 EDT documented in this encounter Results * POTASSIUM (05/30/2015 15:01 EDT) Potassium 3.9 3.5 - 5.0 mEq/L 05/30/2015 15:54 EDT [facility] BLOOD SPECIMEN / Unknown 05/30/2015 15:01 EDT 05/30/2015 15:23 EDT Rina Albert MD CHEMISTRY & BLOOD G ORDERABLES Performing Organization Address City/State/[facility] Co de Phone Number [facility] [address] [place] [address] documented in this encounter Visit Diagnoses Not on filedocumented in this encounter Care Teams Dough Mixer Relationship Specialty Start Date End Date Rina Agosto MD [address] [place] [phone] PCP - General 04/27/14 08/07/15 documented as of this encounter
--- OUTSIDE RECORDS SUMMARY | 2024-04-14 20:43 | XMS_ITS | Encounter Summary ---
Author Organization [facility] Address [address] [place] [address] Care Team Providers Care Videotape Recording Engineer Name Role Phone Rina Agosto MD Primary Care Provider [phone] [phone] Reason for Visit * Reason Comments Other Encounter Details Date Type Department Care Team (Late st Contact Info) Description 08/07/2015 Refill [facility] Dermatology 3rd Floor [address] [id number] Ally Yanez MD [address] [facility], [address] [place] [address] Other Social History Tobacco Use [...] encounter Miscellaneous Notes * Telephone Encounter - Rosario Hernandez RN - 08/07/2015 1028 EST Received a prescription error Contacted Judi in [facility] Patient has had a name change Prescription phoned in ROSARIO HERNANDEZ RN 08/07/2015 10:29 documented in this encounter Plan of [...] on filedocumented in this encounter Care Teams Videotape Recording Engineer Relationship Specialty Start Date End Date Rina Agosto MD [address] [place] [phone] PCP - General 04/27/14 08/07/15 documented as of this encounter
--- OUTSIDE RECORDS SUMMARY | 2024-04-14 20:43 | XMS_ITS | Encounter Summary ---
Author Organization [facility] Address [address] [place] [address] Care Team Providers Care System Admin Name Role Phone Rina Agosto MD Primary Care Provider [phone] [phone] Reason for Visit * Reason Onset Date Comments Back Pain 01/24/2015 Encounter Details Date Type Department Care Team (Late st Contact Info) Description 01/24/2015 Telephone [facility] Adult Primary Care - [address] [address] Rina Agosto MD [address] [place] [phone] Back Pain Social History Tobacco Use Types Packs/Day Years Used Date Smoking Tobacco: Former Cigarettes 0.3 10 0 01/02/2004 - 01/01/2014 Smokeless Tobacco: Never Alcohol Use Standard Drinks/Week Comments No 0 (1 standard drink = 0.6 oz pur e alcohol) Comments Yes Sex and Gender Information Value Date Recorded Sex Assigned at Not on file Gender Identity Not on file Sexual Orientation Not on file documented as of this encounter Ordered Prescriptions Prescription Sig Dispensed Refills Start Date End Da te HYDROcodone-acetaminophen (NORCO) 5-325 mg tablet Take 1 Tab by mouth every 6 hours as needed for Pain Daily Max: 4 Tabs 10 Tab 0 01/24/2015 02/25/2015 documented in this encounter Miscellaneous Notes * Telephone Encounter - Katia Ramey RN - 01/24/2015 8368 EDT Spoke with Gladys. No fever She would is wondering if she could try a combination of Tylenol and Ibuprofen for her headache. Is finding that the [place] is causing fatigue / lethargy and dizziness when she is up and about. Told that she could try taking Tylenol 1000 mg tid ( reviewed not to exceed 3000 mg in 24 hours ) and Ibuprofen every 6 hours in between. Also reviewed importance of drinking water and staying hydrated and lying flat when she is able ( while son is napping?) If this does not help she can come in for [place] RX Agrees with plan and no barriers to understanding identified * Telephone Encounter - Katia Ramey RN - 01/24/2015 1355 EDT LM to CB * Telephone Encounter - Rina Agosto MD - 01/24/2015 1239 EDT Records from [facility] reviewed. OK to provide another 2 days of narcotics provided that patient is not febrile. Headaches should be subsiding over the next few days. If they persist beyond , recommend that patient be seen. Rx signed. norco 5/325mg PO q6h prn pain #10 Please encourage patient to continue supportive care-- lying flat, hydrating as able. Also- please congratulate her on the of her first child! Thanks * Telephone Encounter - Marci Veliz - 01/24/2015 1126 EDT Reason for Call: Back Pain Summary/Symptoms: Patient had epidural giving on Friday at [facility]. Has been having spinal migraines since then. They gave her vicodin 5/325 take one to 2 tabs every 6 hrs. She only has 2 left. She went back to [facility] yesterday and they did a spinal blood patch that did not work. They told her she would have to get medications through her PCP as she has been discharged. She is bringing her son to a pediatrics appointment at 11:30 here in this building. I told her I did not know if we could get the records by then but would try. I called [facility] and asked them to fax the medical records. Marci Veliz 01/24/2015 11:26 documented in this encounter Plan of Treatment [...] on filedocumented in this encounter Care Teams System Admin Relationship Specialty Start Date End Date Rina Agosto MD [address] [place] [phone] PCP - General 04/27/14 08/07/15 documented as of this encounter
--- OUTSIDE RECORDS SUMMARY | 2024-04-14 20:43 | XMS_ITS | Encounter Summary ---
Author Organization [facility] Address [address] [place] [address] Care Team Providers Care Grain Mixer Name Role Phone Rina Agosto MD Primary Care Provider [phone] [phone] Encounter Details Date Type Department Care Team (Latest Contact Info) Description 10/22/2014 12:00 EDT - 10/22/2014 13:20 EDT Hospital Encounter [facility] [address] [place], [place] [id number] Christal Carey MD Discharge Disposition: Home or Self Care [...] Sign Reading Time Taken Comments Blood Pressure 123/73 10/22/2014 1145 EDT Pulse - - Temperature 36.1 ??C (97 ??F) 10/22/2014 1145 EDT Respiratory Rate - - Oxygen Saturation - - Inhaled Oxygen Concentration - - Weight - - Height - - Body Mass Index - - documented in this encounter Discharge Instructions * Discharge Instr - Other Orders* Ally Carmona MD - 10/22/2014 13:13 EDT Discharge Instructions L&D Call your provider if: Your water breaks There's any bright red bleeding You are not feeling the baby move Severe headaches and/or blurry vision Contractions are closer together and/or stronger, or you are having constant pain Medications: Continue any present medication Activity: Drink plenty of fluids and eat well As tolerated, lie on your left side while resting/napping Call Provider's Office For: To continue with your regularly scheduled appointments. documented in this encounter Medications at Time of Discharge Medication Sig Dispensed Refills Start Date End Date acetaminophen (TYLENOL) 325 mg tablet Take 325 mg by mouth every 6 hours. Reported on 12/20/2016 02/22/2017 albuterol (VENTOLIN HFA) 90 mcg/actuation inhaler Inhale 2 Puffs as directed every 4 hours as needed for Wheezing. 11/10/2014 VIT/IRON FUMARATE/FA ( ORAL) Take 1 Tab by mouth daily. 05/30/2015 documented as of this encounter Discharge Disposition Disposition Code Departure Means Destination Home or Self Care documented in this encounter Progress Notes * Marcella Rios RN - 10/22/2014 1206 EDT Pt presented to L&D c/o cramping, vaginal pain and some discharge. Pt reports symptoms started today while she was shopping, at that time the cramping pain was 10/10, she now reports a pain levelof 2/10. Plan for EFM, SSE and evaluation by explained to pt. U/A obtained. Dr Carmona in at 1200 to examine pt. 1220: FHR tracing reactive. EFM off at 1215. Plan: d/c to home pending u/a results. * eRnetta Flor (Att) - 10/22/2014 1206 EDT L&D Triage Note CC: IUP at 24w1d with cramping S: at 24w1d presents with cramping. She felt 4 distinct tightening, cramping and sharp episodes while she was in [employer] for 30 minutes. She also noticed increased white thin discharge. Has not had to change her underwear. Denies vaginal bleeding. +FM. Also has felt like her vagina has been raw since she was first . She also feels like she pulled a muscle in her vagina as she feels an ache with certain positions. Denies lesions, itching, concern for STIs. Denies falls, trauma, sick contacts. Infectious ROS negative. Per her and her , she has not been drinking much water lately. Sees [facility] for care. O: BP 123/73 Temp(Src) 36.1 ??C (97 ??F) (Tympanic) LMP 05/08/2014 HR 95bpm GEN: HR ABD: Soft, gravid, nontender SSE: FFN collected, GC/CT collected, Negative for pooling, LOF with cough, nitrazine, and ferning, no lesions SVE: closed/long/posterior/firm Ext: WWP FHR: Baseline 145/ mod Marco/+ Accel/one mild variable Decel, Cat II TOCO: Quiescent Wet prep with saline: No clue cells, flagella Recent Labs 10/22/14 1215 COLOR Yellow CLARITYU Cloudy GLUCOSEU Neg KETONES Neg PROTEINUA Neg BLOODU Neg NITRITE Neg LEUKESTER Trace* WBCU 1 to 5 RBCU None seen A/P: 24 y.o. at 24w1d with PTUA likely secondary to uterus size increase and dehydration. Vaginal pain likely secondary to round ligament pain. Cat II FHT, but reassuring because of gestational age F/U Ucx results. Will call [facility]wives if positive. Encouraged hydration. Disposition: -Discharge on labor precautions. Pt discussed with Dr. Chacho Carmona MD, PGY3 Department of Obstetrics and Gynecology Attestation statement: I saw and examined the patient. I agree with the resident's/fellow's findings and plans as documented. 24yo G1 at 24w1d presenting with abdominal cramping. Symptoms have improved on presentation. No e/oPTL. Neg wet prep. GC/CT pending. U/A with leukocytes, urine culture pending. Renetta Flor MD documented in this encounter Plan of [...] Name Priority Date/Time Associated Diagnosis Comments URINE MICROSCOPIC Routine 10/22/2014 12: 15 EDT URINALYSIS WITH MICROSCOPIC IF POSITIVE STAT 10/22/2014 12:15 EDT URINE CULTURE IF POSITIVE Routine 10/22/2014 12:15 EDT CHLAMYDIA/N. GONORRHOEAE AMPLIFIED NUCLEIC ACID Routine 10/22/2014 12:15 EDT BACTERIAL CULTURE, URINE Routine 10/22/2014 12:15 EDT documented in this encounter Results * BACTERIAL CULTURE, URINE (10/22/2014 12:15 EDT) Result Less than 10,000 CFU/ml Usual urogenital cristine. 10/23/2014 9:43 EDT [facility] URINE / Unknown 10/22/2014 1 2:15 EDT 10/22/2014 14:04 EDT Christal Carey MD MICROBIOLOGY - GENER AL ORDERABLES [facility] [address] [place] [address] * (ABNORMAL) URINE MICROSCOPIC (10/22/2014 12:15 EDT) WBC, UA 1 to 5 0 - 5 /HPF 10/22/2014 13:10 EDT [facility] RBC, UA None seen 0 - 5 /HPF 10/22/2014 13:10 EDT [facility] Squam Epithel, UA Many(A) None seen /HPF 10/22/2014 13:10 EDT [facility] Renal Epithel, UA None seen None seen /HPF 10/22/2014 13:10 EDT [facility] Bacteria, UA Frequent(A) None seen /HPF 10/22/2014 13:10 EDT [facility] Crystals, UA None seen /HPF 10/22/2014 13:10 T [facility] Hyaline Casts, UA None seen /LPF 10/22/2014 13:10 T [facility] UA Comment Microscopic results 10/22/2014 13:10 EDT [facility] Comment: are unreliable on urines unrefrig >2hrs or refrig >8hrs. Additional Findings Few transitional epithelial cells. 10/22/2014 13:10 EDT [facility] Comment:Amorphous material p resent URINE / Unknown 10/22/2014 1 2:15 EDT 10/22/2014 12:21 EDT Ally Carmona MD URINALYSIS ORDERABLE S Performing Organization Address [facility] Co de Phone Number [facility] [address] [place] [address] * CHLAMYDIA/GC AMPLIFIED (10/22/2014 12:15 EDT) Specimen Description Endocervix 10/22/2014 12:39 EDT [facility] Chlamydia Result No Chlamydia trachomatis DNA detected by sample maker mediated amplification. 10/24/2014 13:59 EDT [facility] GC Result No Neisseria gonorrhoeae DNA detected by sample maker mediated amplification. 10/24/2014 13:59 EDT [facility] Specimen of unknown material (specimen) TOPOGRAPHY UNKNOWN / Unknown 10/22/2014 12:15 EDT 10/22/2014 12:38 EDT Ally Carmona MD MICROBIOLOGY - GENER AL ORDERABLES Performing Organization Address [facility] Co de Phone Number [facility] [address] [place] [address] * URINE CULTURE IF UA POSITIVE - NON POCT URINALYSIS ONLY (10/22/2014 12:15 EDT) Culture if Indicated Culture indicated by urinalysis results. 10/22/2014 13:11 EDT [facility] Urine specimen (specimen) TOPOGRAPHY UNKNOWN / Unknown 10/22/2014 12:15 EDT 10/22/2014 12:21 EDT Ally Carmona MD MICROBIOLOGY - GENER AL ORDERABLES Performing Organization Address City/[facility]/ZIP Co de Phone Number [facility] [address] [place] [address] * (ABNORMAL) URINALYSIS (10/22/2014 12:15 EDT) Color, UA Yellow 10/22/2014 13:10 T [facility] Clarity, UA Cloudy 10/22/2014 13:10 T [facility] Glucose, UA Neg Neg 10/22/2014 13:10 [facility] Bilirubin, UA Neg Neg 10/22/2014 13:10 [facility] Ketones, UA Neg Neg 10/22/2014 13:10 [facility] Specific Amonate, Urine 1.020 1.001 - 1.035 10/22/2014 13:10 [facility] Blood, UA Neg Neg 10/22/2014 13:10 [facility] pH, UA 6.5 4.6 - 8.0 10/22/2014 13:10 [facility] Protein, UA Neg Neg 10/22/2014 13:10 [facility] Urobilinogen, UA 0.2 0.2 - 1.0 E.U./dl 10/22/2014 13:10 [facility] Nitrite, UA Neg Neg 10/22/2014 13:10 [facility] Leuk Esterase Trace(A) Neg 10/22/2014 13:10 [facility] Urine specimen (specimen) URINE / Unknown 10/22/2014 12:15 EDT 10/22/2014 12:21 EDT Ally Carmona MD URINALYSIS ORDERABLE S Performing Organization Address City/[facility]/ZIP Co de Phone Number [facility] [address] [place] [address] documented in this encounter Visit Diagnoses Not on filedocumented in this encounter Orders Transfer Count Last Ordered Date First Orde red Date NOTIFY PPS OF DISCHARGE COMPLETE 1 10/23/19 15 Discharge Count Last Ordered Date First Orde red Date DISCHARGE PATIENT 1 10/22/2014 documented in this encounter Care Teams Grain Mixer Relationship Specialty Start Date End Date Rina Agosto MD [address] [place] [phone] PCP - General 04/27/14 08/07/15 documented as of this encounter
--- OUTSIDE RECORDS SUMMARY | 2024-04-14 20:43 | XMS_ITS | Encounter Summary ---
Author Organization [facility] Address [address] [place] [address] Care Team Providers Care Biological Technical Officer Name Role Phone Amanda Larson MD Primary Care Provider [phone]- [phone] Reason for Visit * Reason Onset Date Comments Results 12/07/2015 Encounter Details Date Type Department Care Team (Late st Contact Info) Description 12/07/2015 Telephone [facility] - [address] [address] Urgent Care, Hu Physician, Results Social History [...] encounter Miscellaneous Notes * Telephone Encounter - Marci Duran RN - 12/07/2015 5956 EDT Patient was called and informed of negative urine culture and GC/Chlamydia. Advised that a letter was sent to her with those results. Re-enforced need to f/u with women's health as scheduled on 12/14/15. Also encouraged to establish with PCP. Symptoms have continued but not changed. To return to for any worsening symptoms. * Telephone Encounter - Kaylee Johnson - 12/07/2015 1611 EDT Reason for Call: Results Summary/Symptoms: PT CALLED FOR RESULTS FROM PREVIOUS VISIT Onset and Duration? NA Appointment Offered? N/A Kaylee Johnson 12/07/2015 16:11 documented in this encounter Plan of Treatment [...] on filedocumented in this encounter Care Teams Biological Technical Officer Relationship Specialty Start Date End Date Amanda Larson MD [address] [place] [address] [place] [address] PCP - General 08/08/15 12/21/15 documented as of this encounter
--- OUTSIDE RECORDS SUMMARY | 2024-04-14 20:43 | XMS_ITS | Encounter Summary ---
Author Organization [facility] Address [address] [place] [address] Care Team Providers Care Gauger Chief Name Role Phone Amanda Larson MD Primary Care Provider [phone] Reason for Visit * Reason Comments Follow-up Acne, nevus Encounter Details Date Type Department Care Team (Late st Contact Info) Description 08/28/2015 14:[address] [facility] Dermatology 5th Floor [facility] [address] [place] [address] Rina Cantrell MD [address] [place] [address] Acne vulgaris (Primary Dx); Multiple benign nevi; Irritated nevus; Neoplasm of uncertain behavior of skin Social History Tobacco Use Types Packs/Day Years [...] encounter Discharge Diagnoses Diagnosis L70.0 Acne vulgaris-L70.0[ICD-10-CM] D23.9 Other benign neoplasm of skin, unspecified-D23.9[ICD-10-CM] D48.5 Neoplasm of uncertain behavior of skin-D48.5[ICD-10-CM] documented in this encounter Patient Instructions * Patient Instructions* Ivan Hurtado - 08/28/2015 14:45 EST DERMATOLOGY WOUND CARE INSTRUCTIONS FOR SKIN BIOPSY The DRESSING/BANDAID should remain in place for 24 hours. You may shower or bathe after 24 hours; remove the bandage and replace it after the shower. DISCOMFORT: Extra-Strength Tylenol, as directed by academic computing director, usually relieves any pain you may have. BLEEDING: You may notice some blood on the edges of the dressing the first day and this is NORMAL. If the bleeding soaks through the dressing, remove the dressing, and apply firm, steady pressure with a moist clean wash cloth for fifteen minutes. If the bleeding stops, redress the wound, if not, call our office at . ACTIVITY: You may resume normal activity in 1 day unless instructed otherwise. WOUND CARE: ?? Wash hands with soap and water before changing the dressing. ?? Change the dressing daily and when it becomes wet. Clean the wound daily with mild soap and water. You may gently loosen any crusts with a cotton swab. The wound may be slightly tender and may bleed a small amount. A small amount of discharge is normal. Apply a thin layer of sterile petroleum jelly over the wound. Cover the wound with a Telfa (non-stick) dressing or bandage. It is important to keep the wound covered. CONTACT THE OFFICE IF YOU EXPERIENCE: ?? increased redness ?? warmth to touch ?? increased pain ?? drainage with a foul odor ?? rapid swelling of the wound ?? fever or chills Please call our office or . documented in this encounter Progress Notes * Rina Cantrell MD - 09/01/2015 1304 ESTQuick Note: Benign lesion, letter sent. No further treatment is needed to the area. * Rina Cantrell MD - 08/28/2015 1450 EST Dermatology Outpatient Visit Note SUBJECTIVE Chief Complaint Patient presents with ??? Follow-up Acne, nevus Problem List 1. Acne Date of Last Visit: 05/2015 History of Present Illness: Gladys Reno is a 25 y.o. female who presents to clinic today for follow up evaluation of acne and repeat evaluation of a mole. She reports that her acne is significantly improved onspironolactone 50 mg BID. She also occasionally uses her tretinoin cream and clindamycin gel, though mostly with minor flares of her acne that occur with her menses. Otherwise she finds using the topicals too drying for her skin. Her other concern today is new moles over the trunk, which mostly started presenting during and after her . There is one on her right chest that occasionally will become inflamed and swollen, especially when her infant son scratches at the lesion. No other concerns today. Review of Systems: Pertinent positives as noted above in progress notes section and all others are negative. Pt's past medical, family, and social history have been reviewed as above. Meds: Pt has a current medication list which includes the following prescription(s): acetaminophen,clindamycin, ibuprofen, minocycline, montelukast, spironolactone, and tretinoin. OBJECTIVE VS: currently . Physical Exam: This is a pleasant, alert and oriented, well-nourished, well-groomed female in no acute distress. She has Keane type II skin. Cutaneous waist- up examination including the hair, scalp,face, eyelids, lips, neck, chest, back, abdomen, upper extremities, hands, digits and nails. - Over the cheeks, upper cutaneous lip and chin there are several depressed scars, violaceous macules, and a few rare 1-2 mm pink, acneiform papules - On the right superior chest there is an 8 mm brown, inflamed soft papules - Over the chest, abdomen, and back there are multiple scattered light and medium brown, pedunculated soft papules (0.2-0.6 mm in size) ASSESSMENT 1. Acne - greatly improved with spironolactone 50 mg BID, and intermittent tretinoin cream and clindamycin gel 2. Neoplasm of unspecified nature of the right superior chest - favor an irritated nevus 3. Benign dermal nevi PLAN 1. Patient education given on the above assessments. 2. She will continue her current regimen of spironolactone 50 mg BID, and intermittent tretinoin cream and clindamycin gel. No refills needed today; call for refills as needed. 3. Recommended biopsy given the concern for malignancy. The patient agrees with this plan. Advised the patient on the risks of biopsy, including pain, infection, bleeding and scar formation. Will call with biopsy results when available, and make further treatment recommendations based on the results. 4. Reassured the patient on the benign appearance of the remainder of her moles. The importance of sunscreen use, sun avoidance and self-examination was discussed. ABCDE's of melanoma discussed as well as the importance of the ugly duckling rule and self skin exams at least monthly or every other month of which the patient showed a good understanding. 5. Return to clinic in 6 months, sooner as needed. SHAVE BIOPSY PATIENT INFORMATION: Gladys Reno : MRN: [id number] SURGEON: Rina Cantrell MD The indication, risks, benefits and alternatives to this procedure were discussed in detail with the patient and all questions were answered. Informed consent was obtained in writing. PROCEDURE NOTE Specimen A Procedure: Tangential Shave Indication: Diagnostic Biopsy Site: right superior chest Anesthesia: 1% lidocaine with epinephrine 1:100,000 local infiltration Prep: Alcohol The lesion was prepped as above and locally anesthetized. The specimen was removed by tangential shave using a Dermablade??. Hemostasis was achieved with pressure and/or aluminum chloride. The wound was cleansed with alcohol and a sterile dressing was applied over Petrolatum ointment. Verbal and written wound care instructions were given.The specimen was submitted to pathology for histological evaluation. Rina Cantrell MD 08/28/2015 14:50 * Shoshana Ramos - 08/28/2015 1416 EST Review of Systems Constitutional: Negative for fever, fatigue and unexpected weight change. HENT: Negative for mouth sores. Eyes: Negative for pain. Respiratory: Negative for cough and shortness of breath. Cardiovascular: Negative for chest pain and palpitations. Gastrointestinal: Positive for constipation. Negative for nausea, vomiting, abdominal pain, diarrhea and blood in stool. Genitourinary: Negative for dysuria, frequency and hematuria. Musculoskeletal: Negative for myalgias, joint swelling, arthralgias and muscle stiffness in the morning. Skin: Negative for rash. Neurological: Positive for headaches. Negative for numbness. Endo/Heme/Allergies: Does not bruise/bleed easily. Psychiatric/Behavioral: Negative for sleep disturbance. The patient is not nervous/anxious. Shoshana Ramos 14:16 08/28/2015 documented in this encounter Plan of Treatment Scheduled Orders Name Type Priority Associated Diagnoses Orde r Schedule SURGICAL PATHOLOGY- ORDER ONLY Pathology Routine Neoplasm of uncertain behavior of skin Ordered: 08/28/2015 documented as of this encounter Goals Goal Patient Goal Type Associated Problems Recent Progress Patient-Stated? Author Blood Pressure < 130/80 Blood Pressure 118/78(2017 16:01 EDT) No Rina Agosto MD Weight Loss General Yes Rina Agosto MD Note: Goal = 145lbs documented as of this encounter Procedures Procedure Name Priority Date/Time Associated Diagnosis Comments SURGICAL PATHOLOGY Routine 08/28/2015 21 :18 EST documented in this encounter Results * SURGICAL PATHOLOGY (08/28/2015 21:18 EST) Pathology Report: SURGICAL PATHOLOGY REPORT Reports generated via electronic interface contain original data; however they are lacking the format of the original report. Caution should be taken when reading/interpret ing unformatted reports. Name: ? GLADYS RENO ? Accession #: ? [id number] ? : ? 1990 (Age: 25) ??F ? Collect Date: ? 08/28/2015 ? Location: ? DERM ? Receive Date: ? 08/28/2015 ? Provider: RINA CANTRELL MD Copy to: ? Final Pathologic Diagnosis: SKIN OF CHEST, RIGHT SUPERIOR, SHAVE BIOPSY: - Melanocytic nevus, intradermal type. Microscopic Description: Sections are of a papule with mild epidermal hyperplasia and hyperkeratosis. There is a proliferation of melanocytes within the dermis. ??The proliferation consists of nests, cords, and strands that diminish in size with descent into the dermis. ??The melanocytes are slightly enlarged but generally have round-oval nuclei and a moderate amount of cytoplasm. ??The melanocytes show building services engineer maturation. ??(Dr. Adamson)/[facility] Document reviewed and electronically signed by: TESS ADAMSON MD Report ??Date: 08/30/2015 16:28 By the signature above, the attending physician certifies that he/she has personally conducted a gross and/or microscopic examination of the described specimens and rendered or confirmed the above diagnosis. Specimen(s) Received: Right superior chest Clinical History: 8.0 mm brown soft irritated papule of the right superior chest, likely irritated nevus; clinical diagnosis code: D48.5 Gross Description: ? Received in formalin labelled with proper patient identification (initials B, M) and right superior chest is a shave biopsy of a alvarenga-red compressible wrinkled papule (0.6 x 0.5 x 0.3 cm). The margin is inked blue. The specimen is bisected and entirely submitted in 1Donald Ross 08/29/2015 9:58 AM End of Report [facility] 08/28/2015 21:1 8 EST 08/28/2015 21:18 EST Rina Cantrell MD PATHOLOGY ORDERABLE S [facility] [address] [place] [address] documented in this encounter Visit Diagnoses Diagnosis Acne vulgaris- Primary Other acne Multiple benign nevi Benign neoplasm of skin, site unspecified Irritated nevus Neoplasm of uncertain behavior of skin documented in this encounter Care Teams Gauger Chief Relationship Specialty Start Date End Date Amanda Larson MD [address] [place] [id number] PCP - General 08/08/15 12/21/15 documented as of this encounter
--- OUTSIDE RECORDS SUMMARY | 2024-04-14 20:43 | XMS_ITS | Encounter Summary ---
Author Organization [facility] Address [address] [place] [id number] Care Team Providers Care Pattern Data Operator Name Role Phone Amanda Larson MD Primary Care Provider [phone]- [phone] Reason for Visit * Reason Comments Abdominal Pain Flank Pain Encounter Details Date Type Department Care Team (Latest Contact Info) Description 12/18/2015 11:06 EDT - 12/18/2015 14:10 EDT Hospital Encounter [facility] [address] [place] [address] Parul De Leon NP [address] [place] [phone] Unknown, Provider, Abdominal pain, unspecified abdominal location (Primary Dx); Kidney stone Discharge Disposition: Home or Self Care Social [...] Sign Reading Time Taken Comments Blood Pressure 105/58 12/18/2015 1329 EDT Pulse 79 12/18/2015 1329 EDT Temperature 37.3 ??C (99.1 ??F) 12/18/2015 1329 EDT Respiratory Rate 16 12/18/2015 1329 EDT Oxygen Saturation - - Inhaled Oxygen [...] 12/14/2015 documented as of this encounter Discharge Instructions * Attachments The following attachments cannot be sent through Care Everywhere. * KIDNEY STONE (IRAQI) documented in this encounter Medications at Time [...] 05/30/2015 02/20/2016 documented as of this encounter Ordered Prescriptions Prescription Sig Dispensed Refills Start Date End Da te oxyCODONE-acetaminophen (PERCOCET) 5-325 mg per tablet Take 1 Tab by mouth every 6 hours as needed for Pain. Earliest Fill Date: 12/18/15 Daily Max: 4 Tabs 10 Tab 0 12/18/2015 12/21/2015 tamsulosin (FLOMAX) 0.4 mg capsule Take 1 Cap by mouth daily for 14 days. 14 Cap 0 12/18/2015 01/01/2016 documented in this encounter Discharge Disposition Disposition Code Departure Means Destination Home or Self Care Walk-out Home documented in this encounter ED Notes * Vandana Oleary RN - 12/18/2015 1218 EDT Blood drawn via saline lock per protocol, tiger and purple tube(s) sent to lab per order. * Gris De Leon NP - 12/18/2015 1152 EDT DOS: 12/18/2015 Chief Complaint Patient presents with ??? Abdominal Pain ??? Flank Pain The patient is a 25 y.o. female who presents today with Abdominal Pain and Flank Pain HPI Comments: Patient presents for sudden onset right sided flank pain that started earlier this morning, and is now radiating around to her right lower abdomen. She did note some dysuria, urgency and frequency that started 3 days ago. She notes that she has had 1 episode of kidney stones in the past. She also has a history of ovarian cysts and endometriosis. She has had nausea, but no vomiting. She denies any fevers or chills. She denies any vaginal discharge. She is not currently menstruating, but does have a history of irregular menses (LMP was 2 months ago). The history is provided by the patient. Abdominal Pain Pain location: R flank Pain severity: Severe Onset quality: Sudden Timing: Constant Progression: Unchanged Chronicity: New Associated symptoms: dysuria and nausea Associated symptoms: no anorexia, no chills, no constipation, no diarrhea, no fatigue, no fever, nohematuria, no vaginal bleeding, no vaginal discharge and no vomiting Flank Pain Associated symptoms: dysuria and nausea Associated symptoms: no anorexia, no chills, no constipation, no diarrhea, no fatigue, no fever, nohematuria, no vaginal bleeding, no vaginal discharge and no vomiting Review of Systems Constitutional: Negative for fever, chills and fatigue. Gastrointestinal: Positive for nausea and abdominal pain. Negative for vomiting, diarrhea, constipation and anorexia. Genitourinary: Positive for dysuria, urgency, frequency and flank pain. Negative for hematuria, vaginal bleeding, vaginal discharge, vaginal pain and pelvic pain. Patient is not currently breast feeding. Musculoskeletal: Positive for back pain. No current facility-administered medications for this encounter. [...] OCD Sister ??? Bipolar Disorder Sister BP 105/58 mmHg Pulse 79 Temp(Src) 99.1 ??F (37.3 ??C) (Tympanic) Resp 16 Physical Exam Constitutional: She is oriented to person, place, and time. She appears well- developed and well-nourished. Appears to be in pain. Pulmonary/Chest: Effort normal. Abdominal: Soft. She exhibits no distension and no mass. There is tenderness (mild, RLQ.). There isno rebound and no guarding. Neurological: She is alert and oriented to person, place, and time. Skin: Skin is warm and dry. Psychiatric: She has a normal mood and affect. Nursing note and vitals reviewed. Consult orders: None PCP: Abdoulaye Gonzalez Results for orders placed or performed during the hospital encounter of 12/18/15 TEST, URINE Result Value Ref Range Result- Test, Ur Neg Neg URINE MICROSCOPIC ONLY Result Value Ref Range WBC, UA None seen 0 - 5 /HPF RBC, UA 5 to 10 0 - 5 /HPF Squam Epithel, UA Frequent (A) None seen /HPF Renal Epithel, UA None seen None seen /HPF Bacteria, UA None seen None seen /HPF Crystals, UA None seen /HPF Casts, UA None seen /LPF UA Comment Microscopic results Mucus, UA Present UA Comment Small sample, less than 12 ml received. HEMAGRAM AND DIFFERENTIAL Result Value Ref Range WBC 12.15 4.0 - 12.4 K/cmm RBC 4.75 3.86 - 5.04 M/cmm Hemoglobin 13.5 11.6 - 15.2 gm/dl HCT 38.2 34.9 - 44.4 % MCV 80 (L) 81 - 98 fl MCH 28.4 26.7 - 33.3 pg MCHC 35.3 32.1 - 35.9 gm/dl RDW-CV 13.5 11.7 - 14.6 % RDW-SD 38.5 37.6 - 50.3 fl PLT 324 141 - 377 K/cmm MPV 10.8 9.5 - 12.7 fl Neutrophils 74.1 % Lymphocytes 17.9 % Monocytes 6.9 % Eosinophils 0.9 % Basophils 0.2 % ABS Neutrophils 9.00 (H) 2.20 - 8.85 K/cmm ABS Lymphs 2.17 1.09 - 3.30 K/cmm ABS Monocytes 0.84 (H) 0.1 - 0.8 K/cmm ABS Eosinophils 0.11 0.03 - 0.61 K/cmm ABS Basophils 0.03 0.01 - 0.11 K/cmm Type of Diff: Automated COMPREHENSIVE METABOLIC PANEL (CMP) Result Value Ref Range Potassium 4.8 3.5 - 5.0 mEq/L Sodium 138 136 - 145 mEq/L Chloride 104 96 - 110 mEq/L CO2 23 (L) 24 - 32 mEq/L Total Alkaline Phosphatase 85 38 - 126 U/L Bilirubin, Total <0.5 <1.4 mg/dl AST 15 15 - 46 U/L ALT 16 <53 U/L Albumin 4.2 3.4 - 4.9 g/dl Total Protein 7.5 6.3 - 8.2 g/dl Creatinine 0.70 0.52 - 1.04 mg/dl GFR, Calculated 121 >60 ml/min/1.73m2 BUN 13 10 - 26 mg/dl Calcium 9.4 8.5 - 10.5 mg/dl Calculated Calcium 9.6 8.5 - 10.5 mg/dl Glucose, Serum 88 70 - 100 mg/dl Fasting? Unknown POCT URINE DIPSTICK Result Value Ref Range Color YELLOW Clarity, UA Clear Glucose Neg Neg Bilirubin Neg Neg Ketones Neg Neg Specific [place] >=1.030 1.001 - 1.035 Blood 3+ (A) Neg pH 5.5 4.6 - 8.0 Protein Trace (A) Neg Urobilinogen 0.2 0.2 - 1.0 E.U./dl Nitrite Neg Neg Leuk Esterase Neg Neg Tech ID [id number] CT RENAL COLIC Final result not shown here. Imaging Results ? CT RENAL COLIC (Final result) Result time: 12/18/15 13:58:10 ?? Procedure changed from CT RENAL COLIC ? Final result by Nathanael Hatch Results In (12/18/15 13:58:10) ?? Narrative: ?? CT RENAL COLIC ??12/18/2015 12:33 PM ?? Signs and Symptoms/Comments: ?? FLANK PAIN, right sided flank pain ?? Technique: Axial CT images obtained from abdomen immediately superior to level of kidneys through the pelvis without administration of contrast of any kind. Sagittal and coronal reformats generated. ?? Comparison: None ?? Findings: Kidneys and ureters: There is a 4 mm calcification in the distal right ureter, near the ureterovesicular junction and there is associated mild right hydroureteronephrosis. There is no perinephric stranding. There is no left hydroureteronephrosis or nephrolithiasis. ?? Bladder: The urinary bladder is unremarkable ?? Uterus, adnexa: Within normal limits ?? Included lung bases: The lung bases are clear ?? Unenhanced liver and spleen, as far as included: The liver and spleen are unremarkable. ?? Gallbladder, pancreas adrenal glands: The gallbladder, pancreas, and adrenal glands are normal. ?? Bowel: The unopacified small bowel and colon are within normal limits. The appendix is normal. ?? Peritoneal cavity: No intraperitoneal free fluid or free air. ?? Abdominal wall: Unremarkable ?? Lymphovascular: The unopacified vascular structures are normal. There is no lymphadenopathy. ?? Musculoskeletal: There are mild degenerative changes at the sacroiliac joints, left greater than right. The bones are otherwise unremarkable. ?? Impression: ?? 1. Mild right hydroureteronephrosis due to a 4 mm calculus at the stress right ureterovesicular junction. 2. Unenhanced CT otherwise within normal limits. ?? Dr. Donahue discussed findings with GRIS DE LEON NP at 1320 on 12/18/2015 I have personally reviewed the images and the above interpretation and agree with the findings. ?? Radiology orders: CT RENAL COLIC Imaging Results CT RENAL COLIC (Final result) Result time: 12/18/15 13:58:[address] RENAL COLIC Final result Narrative: CT RENAL COLIC 12/18/2015 12:33 PM Signs and Symptoms/Comments: FLANK PAIN, right sided flank pain Technique: Axial CT images obtained from abdomen immediately superior to level of kidneys through the pelvis without administration of contrast of any kind. Sagittal and coronal reformats generated. Comparison: None Findings: Kidneys and ureters: There is a 4 mm calcification in the distal right ureter, near the ureterovesicular junction and there is associated mild right hydroureteronephrosis. There is no perinephric stranding. There is no left hydroureteronephrosis or nephrolithiasis. Bladder: The urinary bladder is unremarkable Uterus, adnexa: Within normal limits Included lung bases: The lung bases are clear Unenhanced liver and spleen, as far as included: The liver and spleen are unremarkable. Gallbladder, pancreas adrenal glands: The gallbladder, pancreas, and adrenal glands are normal. Bowel: The unopacified small bowel and colon are within normal limits. The appendix is normal. Peritoneal cavity: No intraperitoneal free fluid or free air. Abdominal wall: Unremarkable Lymphovascular: The unopacified vascular structures are normal. There is no lymphadenopathy. Musculoskeletal: There are mild degenerative changes at the sacroiliac joints, left greater than right. The bones are otherwise unremarkable. Impression: 1. Mild right hydroureteronephrosis due to a 4 mm calculus at the stress right ureterovesicular junction. 2. Unenhanced CT otherwise within normal limits. Dr. Donahue discussed findings with GRIS DE LEON TESTING MANAGER at 1320 on 12/18/2015 I have personally reviewed the images and the above interpretation and agree with the findings. Preliminary result Narrative: PRELIMINARY RESIDENT REPORT CT RENAL COLIC 12/18/2015 12:33 PM Signs and Symptoms/Comments: FLANK PAIN, right sided flank pain Technique: Axial CT images obtained from abdomen immediately superior to level of kidneys through the pelvis without administration of contrast of any kind. Sagittal and coronal reformats generated. Comparison: None Findings: Kidneys and ureters: There is a 4 mm calcification in the distal right ureter, near the ureterovesicular junction and there is associated mild right hydroureteronephrosis. There is no perinephric stranding. There is no left hydroureteronephrosis or nephrolithiasis. Bladder: The urinary bladder is unremarkable Uterus, adnexa: Within normal limits Included lung bases: The lung bases are clear Unenhanced liver and spleen, as far as included: The liver and spleen are unremarkable. Gallbladder, pancreas adrenal glands: The gallbladder, pancreas, and adrenal glands are normal. Bowel: The unopacified small bowel and colon are within normal limits. The appendix is normal. Peritoneal cavity: No intraperitoneal free fluid or free air. Abdominal wall: Unremarkable Lymphovascular: The unopacified vascular structures are normal. There is no lymphadenopathy. Musculoskeletal: There are mild degenerative changes at the sacroiliac joints, left greater than right. The bones are otherwise unremarkable. Impression: 1. Mild right hydroureteronephrosis due to a 4 mm calculus at the stress right ureterovesicular junction. 2. Unenhanced CT otherwise within normal limits. Dr. Donahue discussed findings with GRIS DE LEON TESTING MANAGER at 1320 on 12/18/2015 I have personally reviewed the images and the above interpretation and agree with the findings. Preliminary result Narrative: PRELIMINARY RESIDENT REPORT CT RENAL COLIC 12/18/2015 12:33 PM Signs and Symptoms/Comments: FLANK PAIN, right sided flank pain Technique: Axial CT images obtained from abdomen immediately superior to level of kidneys through the pelvis without administration of contrast of any kind. Sagittal and coronal reformats generated. Comparison: None Findings: Kidneys and ureters: There is a 5 mm calcification in the distal right ureter, near the ureterovesicular junction and there is associated mild right hydroureteronephrosis. There is no perinephric stranding. Renal enhancement cannot be assessed on this noncontrast study. There is a slightly irregular hyperdense focus in the superior pole of the left kidney (axial 55), is likely artifactual related to this low-dose study. There is no discrete mass. There is no left hydroureteronephrosis or nephrolithiasis. Bladder: The urinary bladder is unremarkable Uterus, adnexa: Within normal limits Included lung bases: The lung bases are clear Unenhanced liver and spleen, as far as included: The liver and spleen are unremarkable. Gallbladder, pancreas adrenal glands: The gallbladder, pancreas, and adrenal glands are normal. Bowel: The unopacified small bowel and colon are within normal limits. The appendix is normal. Peritoneal cavity: No intraperitoneal free fluid or free air. Abdominal wall: Unremarkable Lymphovascular: The unopacified vascular structures are normal. There is no lymphadenopathy. Musculoskeletal: There are mild degenerative changes at the sacroiliac joints, left greater than right. The bones are otherwise unremarkable. Impression: 1. 5 mm obstructing stone near the right ureterovesicular junction with associated mild hydroureteronephrosis. 2. Otherwise, unremarkable study. Dr. Donahue discussed findings with GRIS DE LEON NP at 1320 on 12/18/2015 Preliminary result Narrative: PRELIMINARY RESIDENT REPORT CT RENAL COLIC 12/18/2015 12:33 PM Signs and Symptoms/Comments: FLANK PAIN, right sided flank pain Technique: Axial CT images obtained from abdomen immediately superior to level of kidneys through the pelvis without administration of contrast of any kind. Sagittal and coronal reformats generated. Comparison: None Findings: Kidneys and ureters: There is a 5 mm calcification in the distal right ureter, near the ureterovesicular junction and there is associated mild right hydroureteronephrosis. There is no perinephric stranding. Renal enhancement cannot be assessed on this noncontrast study. There is a slightly irregular hyperdense focus in the superior pole of the left kidney (axial 55), is likely artifactual. There is no discrete mass. There is no left hydroureteronephrosis or nephrolithiasis. Bladder: The urinary bladder is unremarkable Uterus, adnexa: Within normal limits Included lung bases: The lung bases are clear Unenhanced liver and spleen, as far as included: The liver and spleen are unremarkable. Gallbladder, pancreas adrenal glands: The gallbladder, pancreas, and adrenal glands are normal. Bowel: The unopacified small bowel and colon are within normal limits. The appendix is normal. Peritoneal cavity: No intraperitoneal free fluid or free air. Abdominal wall: Unremarkable Lymphovascular: The unopacified vascular structures are normal. There is no lymphadenopathy. Musculoskeletal: There are mild degenerative changes at the sacroiliac joints, left greater than right. The bones are otherwise unremarkable. Impression: 1. 5 mm obstructing stone near the right ureterovesicular junction with associated mild hydroureteronephrosis. 2. Otherwise, unremarkable study. Dr. Donahue discussed findings with GRIS DE LEON TESTING MANAGER at 1320 on 12/18/2015 No orders to display Procedures Course: A medical screening exam was performed. Patient given IV fluids and Toradol with significant improvement in pain. Patient afebrile, and hasa normal WBC count, so doubt infected stone. Given location of the stone at the UVJ, will likely pass, but will have her FU with urology in the next 2 days, as if pain persists, she may require intervention. She was started on percocet and Flomax today, and will contact urology tomorrow if she has not heard from them (I did put a referral into [facility]). Disposition: Discharged The patient's pain was managed to an adequate level weighing risk vs. benefit of further medications. [facility], the patient's pain was 2 on a zero to ten scale. Condition at departure from the [facility] : Stable Final diagnoses: Abdominal pain, unspecified abdominal location Kidney stone Dr. Emile Gracia was available for consultation during my care of this patient. [facility] 12/27/2015 15:58 * Vandana Oleary RN - 12/18/2015 1132 EDT Lab requested more urine to do microscopy. Pt aware needs to provide additional sample. Given labelled cup and advised to ring callbell when sample is ready. * Vandana Oleary RN - 12/18/2015 1118 EDT Patient relates 3 day h/o dysuria, urgency, frequency, suprapubic pain, right sided flank pain (started about 30 minutes ago), nausea. Has tried increased fluids, tylenol/ibuprofen (last doses yesterday) without relief. Denies vomiting, fever, chills. documented in this encounter Plan of Treatment Not on file documented as of this encounter Goals Goal Patient Goal Type Associated Problems Recent Progress Patient-Stated? Author Blood Pressure < 130/80 Blood Pressure 118/78(2017 16:01 EDT) No Rina Agosto MD Weight Loss General Yes Rina Agosto MD Note: Goal = 145lbs documented as of this encounter Procedures Procedure Name Priority Date/Time Associated Diagnosis Comments CT RENAL COLIC WO CONTRAST 12/18/2015 12:33 EDT COMPLETE BLOOD COUNT AND DIFFERENTIAL STAT 12/18/2015 12:00 EDT Abdominal pain, unspecified abdominal location COMPREHENSIVE METABOLIC PANEL (CMP) STAT 12/18/2015 12:00 EDT Abdominal pain, unspecified abdominal location URINE SEDIMENT (MICRO) WITHOUT REFLEX TO CULTURE STAT 12/18/2015 11:30 EDT Abdominal pain, unspecified abdominal location TEST, URINE STAT 12/18/2015 11:25 EDT Abdominal pain, unspecified abdominal location POCT URINE DIPSTICK, CLINITEK STAT 12/18/2015 11:17 EDT Abdominal pain, unspecified abdominal location documented in this encounter Results * CT RENAL COLIC (12/18/2015 12:33 EDT) Anatomical Region Laterality Modality Other 12/18/2015 12:3 3 EDT 12/18/2015 13:58 EDT Narrative 12/18/2015 13:[address] RENAL COLIC ??12/18/2015 12:33 PM Signs and Symptoms/Comments: ?? FLANK PAIN, right sided flank pain Technique: Axial CT images obtained from abdomen immediately superior to level of kidneys through the pelvis without administration of contrast of any kind. Sagittal and coronal reformats generated. Comparison: None Findings: Kidneys and ureters: There is a 4 mm calcification in the distal right ureter, near the ureterovesicular junction and there is associated mild right hydroureteronephrosis. There is no perinephric stranding. There is no left hydroureteronephrosis or nephrolithiasis. Bladder: The urinary bladder is unremarkable Uterus, adnexa: Within normal limits Included lung bases: The lung bases are clear Unenhanced liver and spleen, as far as included: The liver and spleen are unremarkable. Gallbladder, pancreas adrenal glands: The gallbladder, pancreas, and adrenal glands are normal. Bowel: The unopacified small bowel and colon are within normal limits. The appendix is normal. Peritoneal cavity: No intraperitoneal free fluid or free air. Abdominal wall: Unremarkable Lymphovascular: The unopacified vascular structures are normal. There is no lymphadenopathy. Musculoskeletal: There are mild degenerative changes at the sacroiliac joints, left greater than right. The bones are otherwise unremarkable. Impression: 1. Mild right hydroureteronephrosis due to a 4 mm calculus at the stress right ureterovesicular junction. 2. Unenhanced CT otherwise within normal limits. Dr. Donahue discussed findings with GRIS DE LEON NP at 1320 on 12/18/2015 I have personally reviewed the images and the above interpretation and agree with the findings. Procedure Note Carmelo Flores MD - 12/18/2015 CT RENAL COLIC 12/18/2015 12:33 PM Signs and Symptoms/Comments: FLANK PAIN, right sided flank pain Technique: Axial CT images obtained from abdomen immediately superior to level of kidneys through the pelvis without administration of contrast of any kind. Sagittal and coronal reformats generated. Comparison: None Findings: Kidneys and ureters: There is a 4 mm calcification in the distal right ureter, near the ureterovesicular junction and there is associated mild right hydroureteronephrosis. There is no perinephric stranding. There is no left hydroureteronephrosis or nephrolithiasis. Bladder: The urinary bladder is unremarkable Uterus, adnexa: Within normal limits Included lung bases: The lung bases are clear Unenhanced liver and spleen, as far as included: The liver and spleen are unremarkable. Gallbladder, pancreas adrenal glands: The gallbladder, pancreas, and adrenal glands are normal. Bowel: The unopacified small bowel and colon are within normal limits. The appendix is normal. Peritoneal cavity: No intraperitoneal free fluid or free air. Abdominal wall: Unremarkable Lymphovascular: The unopacified vascular structures are normal. There is no lymphadenopathy. Musculoskeletal: There are mild degenerative changes at the sacroiliac joints, left greater than right. The bones are otherwise unremarkable. Impression: 1. Mild right hydroureteronephrosis due to a 4 mm calculus at the stress right ureterovesicular junction. 2. Unenhanced CT otherwise within normal limits. Dr. Donahue discussed findings with GRIS DE LEON NP at 1320 on 12/18/2015 I have personally reviewed the images and the above interpretation and agree with the findings. Parul De Leon NP IMG CT ORDERABLES * (ABNORMAL) COMPREHENSIVE METABOLIC PANEL (CMP) (12/18/2015 12:00 EDT) Potassium 4.8 3.5 - 5.0 mEq/L 12/18/2015 12:37 [facility] Sodium 138 136 - 145 mEq/L 12/18/2015 12:37 [facility] Chloride 104 96 - 110 mEq/L 12/18/2015 12:37 [facility] CO2 23(L) 24 - 32 mEq/L 12/18/2015 12:37 [facility] Total Alkaline Phosphatase 85 38 - 126 U/L 12/18/2015 12:37 [facility] Bilirubin, Total <0.5 <1.4 mg/dl 12/18/19 16 12:37 [facility] AST 15 15 - 46 U/L 12/18/2015 12:37 [facility] ALT 16 <53 U/L 12/18/2015 12:37 [facility] Albumin 4.2 3.4 - 4.9 g/dl 12/18/2015 12:37 [facility] Total Protein 7.5 6.3 - 8.2 g/dl 12/18/2015 12:37 [facility] Creatinine 0.70 0.52 - 1.04 mg/dl 12/18/2015 12:37 [facility] GFR, Calculated 121 >60 ml/min/1.7 3m2 12/18/2015 12:37 [facility] Comment: eGFR calculated using CKD-EPI equation for non Americans. Multiply eGFR by 1.16 for Americans. BUN 13 10 - 26 mg/dl 12/18/2015 12:37 [facility] Calcium 9.4 8.5 - 10.5 mg/dl 12/18/2015 12:37 [facility] Calculated Calcium 9.6 8.5 - 10.5 mg/dl 12/18/2015 12:37 [facility] Glucose, Serum 88 70 - 100 mg/dl 12/18/2015 12:37 [facility] Fasting? Unknown 12/18/2015 12:20 [facility] Comment:[place] Blood specimen (specimen) BLOOD SPECIMEN / Unknown 12/18/2015 12:00 EDT 12/18/2015 12:20 EDT Parul De Leon NP CHEMISTRY & BLOOD GAS ORDERABLES [facility] [address] [place] [address] * (ABNORMAL) HEMAGRAM AND DIFFERENTIAL (12/18/2015 12:00 EDT) WBC 12.15 4.0 - 12.4 K/cmm 12/18/2015 12:28 [facility] [facility] RBC 4.75 3.86 - 5.04 M/cmm 12/18/2015 12:28 [facility] Hemoglobin 13.5 11.6 - 15.2 gm/dl 12/18/2015 12:28 [facility] HCT 38.2 34.9 - 44.4 % 12/18/2015 12:28 [facility] MCV 80(L) 81 - 98 fl 12/18/2015 12:28 [facility] MCH 28.4 26.7 - 33.3 pg 12/18/2015 12:28 [facility] MCHC 35.3 32.1 - 35.9 gm/dl 12/18/2015 12:28 [facility] RDW-CV 13.5 11.7 - 14.6 % 12/18/2015 12:28 [facility] RDW-SD 38.5 37.6 - 50.3 fl 12/18/2015 12:28 [facility] PLT 324 141 - 377 K/[facility] 12/18/2015 12:28 [facility] MPV 10.8 9.5 - 12.7 fl 12/18/2015 12:28 [facility] % Neutrophils 74.1 % 12/18/2015 12:28 [facility] % Lymphocytes 17.9 % 12/18/2015 12:28 [facility] % Monocytes 6.9 % 12/18/2015 12:28 [facility] % Eosinophils 0.9 % 12/18/2015 12:28 [facility] % Basophils 0.2 % 12/18/2015 12:28 [facility] ABS Neutrophils 9.00(H) 2.20 - 8.85 K/[facility] 12/18/2015 12:28 [facility] ABS Lymphs 2.17 1.09 - 3.30 K/[facility] 12/18/2015 12:28 [facility] ABS Monocytes 0.84(H) 0.1 - 0.8 K/cm 12/18/2015 12:28 [facility] ABS Eosinophils 0.11 0.03 - 0.61 K/[facility] 12/18/2015 12:28 [facility] ABS Basophils 0.03 0.01 - 0.11 K/[facility] 12/18/2015 12:28 [facility] Type of Diff: Automated 12/18/2015 12:28 [facility] Comment:Performed at [facility] [place] Blood specimen (specimen) BLOOD SPECIMEN / Unknown 12/18/2015 12:00 EDT 12/18/2015 12:20 EDT Parul De Leon NP PACKAGES & DNA PRO BE ORDERABLES Performing Organization Address [facility] Co de Phone Number [facility] [address] [place] [address] * (ABNORMAL) URINE MICROSCOPIC ONLY (12/18/2015 11:30 EDT) WBC, UA None seen 0 - 5 /HPF 12/18/2015 11:58 EDT [facility] RBC, UA 5 to 10 0 - 5 /HPF 12/18/2015 11:58 EDT [facility] Squam Epithel, UA Frequent(A) None seen /HPF 12/18/2015 11:58 T [facility] Renal Epithel, UA None seen None seen /HPF 12/18/2015 11:58 T [facility] Bacteria, UA None seen None seen /HPF 12/18/2015 11:58 T [facility] Crystals, UA None seen /HPF 12/18/2015 11:58 [facility] Hyaline Casts, UA None seen /LPF 12/18/2015 11:58 T [facility] UA Comment Microscopic results 12/18/2015 11:28 T [facility] Comment: are unreliable on urines unrefrig >2hrs or refrig >8hrs. Mucus, UA Present 12/18/2015 11:58 T [facility] Additional Findings Small sample, less than 12 ml received. 12/18/2015 11:58 T [facility] Comment:Performed at [place], [place] Urine specimen (specimen) URINE / Unknown 12/18/2015 11:30 EDT 12/18/2015 11:51 EDT Parul De Leon NP URINALYSIS ORDERAB LES Performing Organization Address City/[facility] Co de Phone Number [facility] [address] [place] [address] * TEST, URINE (12/18/2015 11:25 EDT) Result- Test, Ur Neg Neg 12/18/2015 11:35 EDT [facility] Comment: NOTE: False negative results may occur in women who are beyond 5-8 weeks gestation. Diagnosis of should be based on a correlation of test results with typical clinical signs and symptoms. Performed at [facility], [place], [place] Urine specimen (specimen) URINE / Unknown 12/18/2015 11:25 EDT 12/18/2015 11:30 EDT Parul De Leon NP URINALYSIS ORDERAB LES Performing Organization Address [facility] Co de Phone Number [facility] [address] [place] [address] * (ABNORMAL) POCT URINE DIPSTICK (12/18/2015 11:17 EDT) Color YELLOW 12/18/2015 11:27 EDT [facility] Clarity, UA Clear 12/18/2015 11:27 EDT [facility] Glucose Neg Neg 12/18/2015 11:27 T [facility] Bilirubin Neg Neg 12/18/2015 11:27 EDT [facility] Ketones Neg Neg 12/18/2015 11:27 T [facility] Specific [place] >=1.030 1.001 - 1.035 12/18/2015 11:27 EDT [facility] Blood 3+(A) Neg 12/18/2015 11:27 T [facility] pH 5.5 4.6 - 8.0 12/18/2015 11:27 T [facility] Protein Trace(A) Neg 12/18/2015 11:27 EDT [facility] Urobilinogen 0.2 0.2 - 1.0 E.U./dl 12/18/2015 11:27 EDT [facility] Nitrite Neg Neg 12/18/2015 11:27 EDT [facility] Leuk Esterase Neg Neg 12/18/2015 11:27 EDT [facility] powder expert ID [id number] 12/18/2015 11:27 EDT [facility] Comment:Test performed at [facility] Urine specimen (specimen) URINE / Unknown 12/18/2015 11:17 EDT 12/18/2015 11:27 EDT Parul De Leon NP POINT OF CARE TEST ORDERABLES [facility] [address] [place] [address] documented in this encounter Visit Diagnoses Diagnosis Abdominal pain, unspecified abdominal location- Primary Kidney stone Calculus of kidney documented in this encounter Administered Medications Inactive Administered Medications - up to 3 most recent administrations Medication Order MAR Action Action Date Dose Rate Site ketOROLAC (TORADOL) injection 30 mg 30 mg, intravenous, NOW X1, 1 dose, On Fri12/18/15 at 1200, Routine Given 12/18/2015 12:11 EDT 30 mg sodium chloride 0.9 % BOLUS 1,000 mL 1,000 mL, intravenous, NOW X1, 1 dose, On Fri12/18/15 at 1200, Routine New Bag 12/18/2015 12:11 EDT 1,000 mL documented in this encounter Active and Recently Administered Medications Times are shown in EDT. Scheduled Medication Order 12/16/2015 12/17/2015 12/18/2015 ketOROLAC (TORADOL) injection 30 mg (COMPLETED) 30 mg, intravenous, NOW X1, 1 dose, On Fri12/18/15 at 1200, Routine 1211 (Given - Provid er: Vandana Oleary RN) sodium chloride 0.9 % BOLUS 1,000 mL (COMPLETED) 1,000 mL, intravenous, NOW X1, 1 dose, On Fri12/18/15 at 1200, Routine 1211 (New Bag - Prov ider: Vandana Oleary RN)[id number] (Completed - Provider: Lindsay Maza RN) documented in this encounter Orders Nursing Count Last Ordered Date First Orde red Date INSERT SALINE LOCK 1 12/18/2015 documented in this encounter Care Teams Pattern Data Operator Relationship Specialty Start Date End Date Amanda Larson MD [address] [place] [address] [place] [address] PCP - General 08/08/15 12/21/15 documented as of this encounter
--- OUTSIDE RECORDS SUMMARY | 2024-04-14 20:43 | XMS_ITS | Encounter Summary ---
Author Organization [facility] Address [address] [place] [address] Care Team Providers Care Employee Benefits Coordinator Name Role Phone Rina Agosto MD Primary Care Provider [phone] Encounter Details Date Type Department Care Team (Late st Contact Info) Description 02/21/2015 Phlebotomy Only [facility] [address] [place] [address] Fourth Hand, Outpatient Epidural abscess (Primary Dx) Social History Tobacco Use Types [...] Comments COMPLETE BLOOD COUNT AND DIFFERENTIAL Routine 02/21/2015 14:05 EDT Epidural abscess documented in this encounter Results * (ABNORMAL) HEMAGRAM AND DIFFERENTIAL (02/21/2015 14:05 EDT) WBC 8.86 4.0 - 12.4 K/cmm 02/21/2015 16:19 [facility] RBC 4.76 3.86 - 5.04 M/cmm 02/21/2015 16:19 [facility] Hemoglobin 12.5 11.6 - 15.2 gm/dl 02/21/2015 16:19 [facility] HCT 37.5 34.9 - 44.4 % 02/21/2015 16:19 [facility] MCV 79(L) 81 - 98 fl 02/21/2015 16:19 [facility] MCH 26.3(L) 26.7 - 33.3 pg 02/21/2015 16:19 [facility] MCHC 33.5 32.1 - 35.9 gm/dl 02/21/2015 16:19 [facility] RDW-CV 14.2 11.7 - 14.6 % 02/21/2015 16:19 [facility] RDW-SD 39.4 37.6 - 50.3 fl 02/21/2015 16:19 [facility] PLT 257 141 - 320 K/formerly [facility] 02/21/2015 16:19 [facility] MPV 9.4 7.5 - 11.2 fl 02/21/2015 16:19 [facility] % Neutrophils 54.3 45.5 - 79.7 % 02/21/2015 16:19 [facility] % Lymphocytes 35.7 15.0 - 46.8 % 02/21/2015 16:19 [facility] % Monocytes 6.9 1.8 - 12.0 % 02/21/2015 16:19 [facility] % Eosinophils 2.6 0.6 - 6.9 % 02/21/2015 16:19 [facility] % Basophils 0.5 0.2 - 1.4 % 02/21/2015 16:19 [facility] ABS Neutrophils 4.81 2.20 - 8.85 K/cmm 02/21/2015 16:19 [facility] ABS Lymphs 3.17 1.09 - 3.30 K/formerly [facility] 02/21/2015 16:19 EDT [facility] ABS Monocytes 0.61 0.1 - 0.8 K/formerly [facility] 02/21/2015 16:19 EDT [facility] ABS Eosinophils 0.23 0.03 - 0.61 K/formerly [facility] 02/21/2015 16:19 T [facility] ABS Basophils 0.05 0.01 - 0.11 K/formerly [facility] 02/21/2015 16:19 EDT [facility] Type of Diff: Automated 02/21/2015 16:19 EDT [facility] Blood specimen (specimen) BLOOD SPECIMEN / Unknown 02/21/2015 14:05 EDT 02/21/2015 15:49 EDT Cristina ELIZABETHP PACKAGES & DNA PROB E ORDERABLES Performing Organization Address City/State/[facility] Co de Phone Number [facility] [address] [place] [address] documented in this encounter Visit Diagnoses Diagnosis Epidural abscess- Primary Intracranial and intraspinal abscess of unspecified site documented in this encounter Care Teams Employee Benefits Coordinator Relationship Specialty Start Date End Date Rina Agosto MD [address] [place] [phone] PCP - General 04/27/14 08/07/15 documented as of this encounter
--- OUTSIDE RECORDS SUMMARY | 2024-04-14 20:43 | XMS_ITS | Encounter Summary ---
Author Organization [facility] Address [address] [place] [address] Care Team Providers Care Passenger Rate Clerk Name Role Phone Rina Agosto MD Primary Care Provider [phone] Reason for Visit * Reason Comments Anxiety onset one month Depression Encounter Details Date Type Department Care Team (Late st Contact Info) Description 2015 14:30 EDT Office Visit [facility] Adult Primary Care - [address] [id number] Cristina Rivera, MEHREEN [address] [facility] [address] [place] [id number] Depression (Primary Dx); Anxiety Discharge Disposition: Auto Discharge Social History Tobacco [...] Reading Time Taken Comments Blood Pressure 120/82 2015 1441 EDT Pulse 80 2015 1441 EDT Temperature 36.2 ??C (97.2 ??F) 2015 1441 EDT Respiratory Rate 14 2015 1441 EDT Oxygen Saturation - - Inhaled Oxygen Concentration - - Weight 86.4 kg (190 lb 8 oz) 2015 1441 EDT Height 162.6 cm (5' 4) 2015 1441 EDT Body Mass Index 32.7 2015 1441 EDT documented in this encounter Discharge Diagnoses Diagnosis 311. DEPRESSIVE DISORDER NEC[ICD-9-CM] 300.00 ANXIETY STATE NOS[ICD-9-CM] documented in this encounter Ordered Prescriptions Prescription Sig Dispensed Refills Start Date End Da te paroxetine (PAXIL) 10 mg tabletIndications:Depressi on,Anxiety Take 1 Tab by mouth daily for 30 days 30 Tab 0 2015 02/25/2015 documented in this encounter Discharge Disposition Disposition Code Departure Means Destination Auto Discharge documented in this encounter Progress Notes * Cristina Rivera - 2015 1452 EDT CHIEF COMPLAINT: Anxiety and Depression Current Outpatient Prescriptions Medication Sig ??? acetaminophen [...] 1 Tab by mouth at bedtime ??? VIT/IRON FUMARATE/FA ( ORAL) Take 1 Tab by mouth daily. Allergies Allergen Reactions ??? Latex, Natural Rubber Rash ??? Tramadol Nausea Only Dizziness SUBJECTIVE: The patient is a 25 y.o. female here for Anxiety and Depression periods of sadness, weepiness, anxiety is high around finances, living situation. Her boyfriend hasan older son who is 2. Feels very worried. Biting fingernials. Her son Ansley is 2 weeks old. She is and reports it is going well. Was on prozac in the past - didn't like how it made her feel, made her feel more anxious. [place] moredown and depressed, she was about 16 when she was on it. Was also on seroquel - had blackout periods with shaking during sleep, doesn't remember long periods of time. OBJECTIVE: BP 120/82 Pulse 80 Temp(Src) 36.2 ??C (97.2 ??F) (Tympanic) Resp 14 Ht 162.6 cm (64) Wt 86.41 kg (190 lb 8 oz) BMI 32.68 kg/m2 LMP 05/08/2014 Physical Examination: General appearance - alert, well appearing, and in no distress, normal appearing weight and acyanotic, in no respiratory distress Mental status - alert, oriented to person, place, and time, normal mood, behavior, speech, dress, motor activity, and thought processes, affect appropriate to mood PROBLEM: anxiety Assessment: Anxiety, has not had successful antidepressant therapy in the past Plan: Paxil 10mg x 2 weeks. Advised that improvement will be slow and progerssive. Can increase to 20 mg at next visit if well tolerated. Going very slow on increases due to history of nausea and vomiting and sensitivity to medications. Gladys was seen today for anxiety and depression. Diagnoses and associated orders for this visit: Depression - paroxetine (PAXIL) 10 mg tablet; Take 1 Tab by mouth daily for 30 days Anxiety - paroxetine (PAXIL) 10 mg tablet; Take 1 Tab by mouth daily for 30 days Other Orders - Cancel: Tdap vaccine greater than or equal to 7yo IM - ibuprofen (MOTRIN) 800 mg tablet; Take 800 mg by mouth 3 times daily Today's qjio-yh-kavv visit time was 25 minutes with 25 minutes spent in counseling and/or coordination of care for the problems listed above. Patient Education Provided: on the various medical [...] above. Outcomes: verbalized understanding Cristina Rivera NP 2015 14:53 Patient Education Provided: There are no on [...] Anxiety state, unspecified documented in this encounter Historical Medications * This list may reflect changes made after this encounter. Medication Sig Dispensed Refills Start Date End Date ibuprofen (MOTRIN) 800 mg tablet Take 600 mg by mouth 3 times daily. 06/07/2016 added in this encounter Care Teams Passenger Rate Clerk Relationship Specialty Start Date End Date Rina Agosto MD [address] [place] [phone] PCP - General 04/27/14 08/07/15 documented as of this encounter
--- OUTSIDE RECORDS SUMMARY | 2024-04-14 20:43 | XMS_ITS | Encounter Summary ---
Author Organization [facility] Address [address] [place] [address] Care Team Providers Care Dividing Machine Operator Name Role Phone Rina Agosto MD Primary Care Provider [phone] Amanda Larson MD Primary Care Provider [phone] Abdoulaye Gonzalez Primary Care Provider [phone] Fiordaliza Hurt MD Primary Care Provider [phone] Unknown, Provider MD Primary Care Provider [phone] Reason for Visit * Reason Onset Date Comments Prior Auth, Medication 06/12/2015 Encounter Details Date Type Department Care Team (Late st Contact Info) Description 06/12/2015 Telephone [facility] Adult Primary Care - [address] [address] Rina Agosto MD [address] [place] [phone] Prior Auth, Medication Social History Tobacco Use Types Packs/Day Years [...] encounter Miscellaneous Notes * Telephone Encounter - Pricilla Dave - 06/14/2015 1244 EST Faxed PA to insurance. Awaiting approval. * Telephone Encounter - Marci Veliz - 06/12/2015 1000 EST Reason for Call: Prior Auth, Medication Summary/Symptoms: Montelukast Sodium requires PA. Form filled out to best of [facility] ability and givento provider. Marci Veliz 06/12/2015 10:00 documented in this encounter Plan of [...] on filedocumented in this encounter Care Teams Dividing Machine Operator Relationship Specialty Start Date End Date Rina Agosto MD [address] [place] [phone] PCP - General 04/27/14 08/07/15 Amanda Larson MD [address] [place] [address] [place] [address] PCP - General 08/08/15 12/21/15 Abdoulaye Gonzalez [address] [place] [id number] PCP - General 12/22/15 04/05/18 Fiordaliza Hurt MD [address] [place] [id number] PCP - General 04/06/18 08/16/19 Unknown, Provider, PCP - General 05/09/21 documented as of this encounter
--- OUTSIDE RECORDS SUMMARY | 2024-04-14 20:43 | XMS_ITS | Encounter Summary ---
Author Organization [facility] Address [address] [place] [address] Care Team Providers Care Brick Tester Name Role Phone Rina Agosto MD Primary Care Provider [phone] Reason for Referral * Laboratory Services (Routine) - Closed Specialty Diagnoses / Procedures Referred By Gregory velez Referred To Contact Diagnoses Acne vulgaris Encounter for long-term (current) use of medications Procedures POTASSIUM Ally Yanez MD [address] [facility], [facility] [address] [place] [address] Referral ID Status Reason Start Date Expiration Date Visits Re quested Visits Authorized [id number] Closed 05/30/2015 1 1 Reason for Visit * Reason Comments New Patient Visit Family h/o skin canc er Skin Exam Lesion on right uppe r chest and upper back Acne Currently taking min ocycline * Consult (Routine) - Specialty Report Received Specialty Diagnoses / Procedures Referred By Gregory velez Referred To Contact Dermatology Diagnoses Acne, unspecified acne type Rina Agosto MD [address] [place] [phone] [facility] D[facility] [address] [place] [address] Referral ID Status Reason Start Date Expiration Date Visits Requested Visits Authorized [id number] Specialty Report Received Specialty Services Required 03/09/2015 1 1 Encounter Details Date Type Department Care Team (Late st Contact Info) Description 05/30/2015 13:45 EDT Office Visit [facility] Dermatology 5th Floor [address] [address] Rina Albert MD [address] [place] [address] Acne vulgaris (Primary Dx); Dermal nevus; Encounter for long-term (current) use of medications [...] encounter Discharge Diagnoses Diagnosis L70.0 Acne vulgaris-L70.0[ICD-10-CM] D22.9 Melanocytic nevi, unspecified-D22.9[ICD-10-CM] Z79.899 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 Stop taking minocycline. 2. Start taking spironolactone 50 mg twice a day after we check your potassium level. Have your potassium level checked somewhere closer to home 1-2 weeks after starting spironolactone. This medication can sometimes raise potassium levels, and we want to make sure this is not happening. 3. For face: Apply topical tretinoin 0.025 % cream to entire face at night. You can start every third night or every other night at first to reduce irritation. (see instructions below). You can apply the clindamycin gel to your face in the morning. 4. For back, chest: Apply the clindamycin gel once daily. 5. You can try the neutrogena ultra gentle wash, or other gentle, non- comedogenic washes. Make surethat you use something without benzoyl peroxide or salicylic acid, as these may cause further irritation if used with the above regimen. ACNE Acne is a very common skin problem. Your doctor has created a skin care routine for you. You must follow this routine for 4-6 weeks before you will see improvement in your skin. Some people notice improvement earlier. If you do not use your medications as instructed, your acne will not get better as expected! Instructions: 1. Wash your face twice a day with one of the following gentle facial cleansers: Dove, Cetaphil, Purpose, Aveeno, Neutrogena. Your doctor may suggest another cleanser. 2. Do not use ???buff puffs,?? scrubbing sponges or wash cloths. Do not use astringents, alcohol or scrub-type cleansers. Use only your hands to wash your face! Be gentle, do not rub! Pat your face dry with a towel. 3. Topical (Skin) Medications: Apply 30 minutes after washing your face to prevent stinging. If thedoctor has prescribed one medication to be used in the morning and a different medicine to be used in the evening, it is important that you follow these directions exactly. If your skin is burning orirritated, stop treatment and call the nurse for advice. 4. Oral (by mouth) Medications: Take these medications exactly as instructed. Do not skip doses. Take these medications with a full glass of water and do not lie down for 30 minutes afterwards. 5. Do not pick or break the pimples. Keep your hands off your face. Do not lean on your hands. Tight caps and hats may also aggravate your acne. Do not use hair grease or other products near your face. 6. Your acne medicine may make your skin more sensitive to the sun. Don???t forget to use sunscreen! 7. If you have any questions or concerns, please call the Dermatology department at 8. Follow up appointments are very important. Your doctor may need to change your medications. Please call the office at [phone] if you need to change an appointment. ACNE Definition: Acne is an inflammation of the oil pores in the skin. What causes acne? 1. Hormones- chemicals produced by the body which turn on the oil glands to produce oil. 2. Oil. 3. Bacteria which live in the oil process. FOOD DOES NOT CAUSE ACNE OR MAKE IT WORSE The bacteria breaks down the oil into fats which, along with the cells being made, block the oil pores and a close plug is formed. This plug is called a chan. A chan is usually visible as aslight skin-colored bump on the skin. With time, the chan often turns into a blackhead. The blackhead is like a chan except that the plug is open to the surface and you can see skin pigments trapped below. These pigments, not dirt, give the blackheads a dark color. Often, the oil pore bursts from the pressure in the blocked pores (whiteheads and blackheads) and dumps the oil and fat into the skin. The oil and fat are very irritating and the skin reacts by forming red bumps called papules and pustules (acne). TREATMENT 1. There is no cure for acne yet; however, it can be controlled. 2. The ideal treatment would be to control the hormones which are turning on the oil glands but this is not possible yet. 3. Astringents, cleansing grains and scrubs not only do not help; they aggravate acne. 4. Certain soaps, moisturizers and cosmetics can also block pores and aggravate acne while others won???t. NO scrubbing or washcloths. Remember: acne is not caused by dirt. Your doctor will explain further treatment with you. HOW TO APPLY TOPICAL RETINOID Adapalene (Differin), Tretinoin (Retin-A), Tazarotene (Tazorac) It???s best to apply at bedtime. Wash your face with a gentle cleanser like Dove unscented soap, Cetaphil Aveeno etc. (or specific acne wash if this works better for you). Pat dry. Use a pea-sized amount of medicine (or less) and rub in well to the affected areas. Only treat the areas where you break out. Wash your hands when done. Do not apply anything else after - even a moisturizer. These medications can be irritating and drying. Expect to be a little dry and scaly when using. Youcan use an oil-free (non-comedogenic) moisturizer in the AM or during the day. WHEN BEGINNING TREATMENT (or if you???ve stopped for a prolonged time): * Use twice a week for 1 to 2 weeks * If tolerating this well, increase to three times a week for a week or so * If still tolerating, slowly increase to every night application * If you become too red, irritated or dry skip a night or 2 and restart Use good sun protection - SPF 30+ Call the office with any questions [phone] or Use the medication as directed and BE PATIENT - results are not immediate - this is a medication used for treatment AND prevention. documented in this encounter Ordered Prescriptions Prescription Sig Dispensed Refills Start Date End Da te clindamycin (CLINDAGEL) 1 % gel Apply topically to affected areas on chest and back once daily. You can apply to face in the morning. Use thin film. 60 g 5 05/30/2015 02/20/2016 tretinoin (RETIN-A) 0.025 % cream Apply topically to face at night. Apply sparingly. Do not apply immediately after washing, may sting. 20 g 5 05/30/2015 02/20/2016 spironolactone (ALDACTONE) 50 mg tablet Take 1 Tab by mouth 2 times daily 60 Tab 3 05/30/2015 08/07/2015 documented in this encounter Progress Notes * Ally Yanez MD - 05/30/2015 1427 EDT Dermatology Outpatient Visit Note Chief Complaint Patient presents with ??? New Patient Visit Family h/o skin cancer ??? Skin Exam Lesion on right upper chest and upper back ??? Acne Currently taking minocycline Dermatologic History: 1. Acne Vulgaris Last Dermatology office visit: New Patient Visit SUBJECTIVE Ms. Quintanilla is a 25 y.o. female who presents for new evaluation and treatment for acne of face and chest. She is currently taking minocycline 100 mg BID for 2 months, and is using a salicylicacid facewash in the morning. She recently had a baby in January, and reports significant flare of heracne during . At the time appointment was scheduled, she was breast feeding and was not taking minocycline. She does feel that her breakouts coincide with menses, although she currently has a new implantable device called Linnea (placed 1 month ago, lasts 3 years, but she has been bleeding since placement). She has never tried spironolactone. She did complete a course of Isotretinoin whenshe was 13 years old and had complete resolution, without any signs of recurrence for at least 3 years. Her acne began to flare again in her late teens, and affected her face and back. She has since used minocycline, and topical benzaclin. She reports that today is a good day for her. In addition, she notes a couple of moles on her right chest and left back that she would like evaluated. Her 4 month old baby occasionally pulls on the right chest lesion. They do not bleed, and havenot changed in size or color. She is otherwise feeling well and has no other cutaneous concerns today. For full Medical, Surgical, Family, and Social histories, please see the History section of this encounter in the electronic chart which I have personally reviewed. For Review of Systems, Medications and Allergies, please see those sections of this encounter in the electronic chart which I have also reviewed. She has a current medication list which includes the following prescription(s): acetaminophen, albuterol, azelaic acid, ibuprofen, minocycline, montelukast, paroxetine, and vit/iron fumarate/fa. She is allergic to latex, natural rubber and tramadol. OBJECTIVE VS: LMP 05/08/2014 Ms. Quintanilla is healthy, well developed, well-nourished, in no acute distress, alert, smiling and interactive female sitting on the examination table with a normal affect. She is alert and oriented to person, place and time. She has Keane type II skin. Cutaneous waist-up examination with bra on including the hair, scalp, face, eyelids, lips, neck, chest, back, abdomen, upper extremities, hands, digits and nails was performed.The examination was normal with the addition of the following comments: There were no lesions suspicious for malignancy. - right upper chest: 6 mm medium-dark brown fleshy pedunculated irritated papule - upper back: medium-dark brown fleshy dome-shaped papule - mid chest: 4-5 inflammatory papules and pustules - face, especially cheeks, chin and jawline: multiple inflammatory papules and rare pustules, with some postinflammatory hyperpigmentation and boxcar scarring ASSESSMENT 1. Acne, moderate inflammatory and pustular 2. Dermal Nevi PLAN 1. The nature and etiology of acne was discussed, as well as various treatment options. Will discontinue oral minocycline treatment and start spironolactone 50 mg BID (60 tabs, 3 RF) after potassium level is checked today. Potassium level will be rechecked 1-2 weeks after starting spironolactone (this can be done closer to home). Apply topical tretinoin 0.025 % cream (20 grams, 5 RFs) to entire face at night, which can be started every third night or every other night at first to reduce irritation. Written instructions for proper application of topical retinoids to reduce irritation was provided in clinic today. For back and chest, apply clindamycin gel (30g, 5 RFs) in the morning. She can also apply clindamycin gel to face in the morning. Advised stopping to use salicylic acid containingface wash and to avoid benzoyl peroxide containing products, as these may worsen irritation. Recommend using more gentle washes, such as Neutrogena Ultra Gentle Cleanser. Patient demonstrated a good understanding of this plan. 2. Patient was reassured of benign nature of dermal nevi. Patient would like to defer any treatmentat this time, as she has her baby with her. If lesion on right upper chest continues to be irritated, bothersome or concerning to patient, we can discuss treatment options at follow up visit. She will f/u in 3 months, or in the interim should problems arise. Ally Yanez MD 05/30/2015 14:27 I saw and examined the patient with the resident/fellow. I agree with the findings and plan of caredocumented in the resident's/fellow's note. Rina Albert MD 05/31/2015 9:22 * Sandro Melgoza - 05/30/2015 1409 EDT Review of Systems Constitutional: Positive for fatigue. Negative for fever and unexpected weight change. HENT: Negative for mouth sores. Eyes: Negative for pain. Respiratory: Negative for cough and shortness of breath. Cardiovascular: Negative for chest pain and palpitations. Gastrointestinal: Negative for nausea, vomiting, abdominal pain, diarrhea, constipation and blood in stool. Genitourinary: Negative for dysuria, frequency and hematuria. Musculoskeletal: Negative for myalgias, joint swelling, arthralgias and muscle stiffness in the morning. Skin: Negative for rash. Neurological: Negative for numbness and headaches. Endo/Heme/Allergies: Does not bruise/bleed easily. Psychiatric/Behavioral: Negative for sleep disturbance. The patient is not nervous/anxious. Sandro Melgoza 05/30/2015 14:09 Rina Albert MD 05/31/2015 9:22 documented in this encounter Plan of Treatment Scheduled Orders Name Type Priority Associated Diagnoses Orde r Schedule POTASSIUM Lab Routine Acne vulgaris Encounter for long-term (current) use of medications Expected: 05/30/2015 (Approximate), Expires: 05/30/2016 documented as of this encounter Goals Goal Patient Goal Type Associated Problems Recent Progress Patient-Stated? Author Blood Pressure < 130/80 Blood Pressure 118/78(2017 16:01 EDT) No Rina Agosto MD Weight Loss General Yes Rina Agosto MD Note: Goal = 145lbs documented as of this encounter Visit Diagnoses Diagnosis Acne vulgaris- Primary Other acne Dermal nevus Benign neoplasm of skin, site unspecified Encounter for long-term (current) use of medications Encounter for long-term (current) use of other medications documented in this encounter Discontinued Medications Medication Sig Discontinue Reason Start Date End Da te albuterol 90 mcg/actuation inhaler Inhale 2 Puffs as directed every 4 hours as needed for Wheezing 11/10/2014 05/30/2015 azelaic acid (AZELEX) 20 % cream Clean skin and pat dry, gently but thoroughly massage a thin film of azelaic acid cream into the affected area twice daily 03/09/2015 05/30/2015 VIT/IRON FUMARATE/FA ( ORAL) Take 1 Tab by mouth daily. 05/30/2015 documented as of this encounter Care Teams Brick Tester Relationship Specialty Start Date End Date Rina Agosto MD [address] [place] [phone] PCP - General 04/27/14 08/07/15 documented as of this encounter
--- OUTSIDE RECORDS SUMMARY | 2024-04-14 20:43 | XMS_ITS | Encounter Summary ---
Author Organization [facility] Address [address] [place] [address] Care Team Providers Care Well Shooter Name Role Phone Amanda Larson MD Primary Care Provider [phone]- [phone] Reason for Visit * Reason Onset Date Comments Medication Management 09/12/2015 Encounter Details Date Type Department Care Team (Late st Contact Info) Description 09/12/2015 Telephone [facility] Adult Primary Care - [address] [address] Kaylee Tyson, RN [address] [place] [address] Medication Management Social History Tobacco Use Types [...] Telephone Encounter - Kaylee Tyson RN - 09/12/2015 1045 EST RX for [place] Ari 5/325 mg tabs dated 01/24/15 was destroyed in the presence of Katia Ramey RN for failure to filler picker. RX has . Kayele Tyson RN documented in this encounter Plan of Treatment [...] on filedocumented in this encounter Care Teams Well Shooter Relationship Specialty Start Date End Date Amanda Larson MD [address] [place] [address] [place] [address] PCP - General 08/08/15 12/21/15 documented as of this encounter
--- OUTSIDE RECORDS SUMMARY | 2024-04-14 20:43 | XMS_ITS | Encounter Summary ---
Author Organization [facility] Address [address] [place] [address] Care Team Providers Care Ux Interaction Designer Name Role Phone Rina Agosto MD Primary Care Provider [phone] [phone] Reason for Visit * Reason Onset Date Comments Medications Refill 04/13/2015 Encounter Details Date Type Department Care Team (Late st Contact Info) Description 04/13/2015 Refill [facility] Adult Primary Care - [address] [phone] Rina Agosto MD [address] [place] [phone] Medications Refill Social History Tobacco Use Types [...] Dispensed Refills Start Date End Da te minocycline (MINOCIN, DYNACIN) 100 mg capsule Take 1 Cap by mouth 2 times daily 60 Cap 5 04/14/2015 12/13/2015 documented in this encounter Miscellaneous Notes * Telephone Encounter - Drea Bautista RN - 04/14/2015 1444 EDT Incoming call from Gladys, she spoke to [facility]. She has stopped breast feeding. Will e-scribe to [email or web address] in [place]. * Telephone Encounter - Elisa Green - 04/13/2015 1446 EDT Medication(s) Requested: Minocycline-Patient would like to go back on medication. [facility] Last Refill Date: 07/01/14 Last Visit Date: 03/09/15 Next Visit Date: 04/25/2015 Is patient out of medication? yes Elisa Green 04/13/2015 14:46 documented in this encounter Plan of Treatment [...] on filedocumented in this encounter Care Teams Ux Interaction Designer Relationship Specialty Start Date End Date Rina Agosto MD [address] [place] [phone] PCP - General 04/27/14 08/07/15 documented as of this encounter
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
--- OUTSIDE RECORDS SUMMARY | 2024-04-14 20:43 | XMS_ITS | Encounter Summary ---
Author Organization [facility] Address [address] [place] [address] Care Team Providers Care Statistical Clerk Name Role Phone Rina Agosto MD Primary Care Provider [phone] Reason for Visit * Reason Onset Date Comments Medications Refill 11/10/2014 Encounter Details Date Type Department Care Team (Late st Contact Info) Description 11/10/2014 Refill [facility] Adult Primary Care - [address] [phone] Rina Agosto MD [address] [place] [phone] Medications Refill Social History Tobacco Use [...] for Wheezing 18 g 1 11/10/2014 05/30/2015 documented in this encounter Miscellaneous Notes * Telephone Encounter - Elisa Green - 11/10/2014 6045 EDT Medication(s) Requested: albuterol [facility]acy: [facility] Last Refill Date: 09/07/13 Last Visit Date: 06/03/14 Next Visit Date: Visit date not found Is patient out of medication? yes Elisa Green 11/10/2014 13:47 documented in this encounter Plan of Treatment [...] Reason Start Date End Da te albuterol (VENTOLIN HFA) 90 mcg/actuation inhaler Inhale 2 Puffs as directed every 4 hours as needed for Wheezing. Reorder 11/10/2014 documented as of this encounter Care Teams Statistical Clerk Relationship Specialty Start Date End Date Rina Agosto MD [address] [place] [phone] PCP - General 04/27/14 08/07/15 documented as of this encounter
--- OUTSIDE RECORDS SUMMARY | 2024-04-14 20:43 | XMS_ITS | Encounter Summary ---
Author Organization [facility] Address [address] [place] [address] Care Team Providers Care Critical Care Paramedic Name Role Phone Amanda Larson MD Primary Care Provider [phone] Reason for Visit * Reason Comments Nephrolithiasis DX with 5 cm kidney stone 2 days ago at urgent care, discharged home with precocet. Tonight had acute pain that did not go away pain meds. Afebrile. Unable to void. Encounter Details Date Type Department Care Team (Late st Contact Info) Description 12/20/2015 11:23 EDT - 12/21/2015 17:30 EDT Emergency [facility] Perioperative Services- [facility] [address], [place] [id number] Jayda Pedroza MD 111 [facility], [facility] [address] [place] [id number] Moris Borrero MD [address] [place] [phone] Rell Betancourt DO 111 [facility], [facility] [address] [place] [address] Kidney stone (Primary Dx); Renal colic; Emesis, persistent; Other hydronephrosis Discharge Disposition: Home or Self Care Social [...] Sign Reading Time Taken Comments Blood Pressure 124/66 12/21/2015 1700 EDT Pulse 71 12/21/2015 0927 EDT Temperature 36.8 ??C (98.2 ??F) 12/21/2015 1700 EDT Respiratory Rate 12 12/21/2015 1700 EDT Oxygen Saturation 99% 12/21/2015 1700 EDT Inhaled Oxygen Concentration - - Weight 90.7 kg (200 lb) 12/20/2015 1100 EDT Height 162.6 cm (5' 4) 12/20/2015 1100 EDT Body Mass Index 34.33 12/20/2015 1100 EDT [...] 12/20/2015 documented as of this encounter Discharge Summaries * Rina Reis PA - 12/20/2015 1416 EDT [facility] Urology Discharge Summary Primary Care Provider: Amanda Larson Attending Physician: Rell Betancourt D.O. Admit Date: December 20, 2015 Discharge Date: December 21, 2015 Disposition: Home or self care Problems and Procedures Admitting Diagnosis: Right flank pain, right ureterolithiasis Principal/Final Diagnosis: Right flank pain, right ureterolithiasis Additional Problems Managed in the Hospital None Principal Procedure: Cystoscopy, right retrograde pyelogram, right ureteroscopy with stone basketing, right ureteral stent placement Date: 12/21/2015 Secondary Procedures: None Hospital Course The pt is a 25 y/o female who presented to the ED with newly diagnosed right distal ureteral stone with increasing flank pain. Urology was consulted and then admitted to [place] [address] for pain control. On 12/21/15 a KUB was obtained which showed the stone in the same location. The pt was taken to the OR and underwent Cystoscopy, right retrograde pyelogram, right ureteroscopy with stone basketing, right ureteral stent placement. The pt tolerated the procedure well. Upon completion of the procedure she was taken to PACU and discharged to home per PACU protocol. The pt will f/u with Dr Vee for stent removal. Last Lab Results at Discharge BUN: Allergies and Immunizations Allergies Allergen Reactions ??? Adhesive Rash ??? Latex, Natural Rubber Rash ??? Tramadol Nausea Only Dizziness There is no immunization history on file for this patient. Transition of Care Plans Condition at Discharge: Good Assessment at Discharge: Vital signs: Patient Vitals for the past 12 hrs: BP Pulse Heart Rate Resp Temp SpO2 O2 Flow Rate (L/min) O2 Device 12/21/15 1600 117/64 mmHg - 80 BPM 26 - 100 % - - 12/21/15 1550 107/68 mmHg - 79 BPM 18 37.1 ??C (98.8 ??F) 100 % 3 l/min - 12/21/15 1428 - - - - - - - None 12/21/15 1418 115/73 mmHg - - 20 36.8 ??C (98.2 ??F) - - - 12/21/15 0927 123/67 mmHg 71 - 18 37 ??C (98.6 ??F) 100 % - - 12/21/15 0538 113/65 mmHg - - 18 36.6 ??C (97.9 ??F) 100 % - None Discharge Medications: START taking these medications Sig ciprofloxacin HCl 500 mg tablet Commonly known as: CIPRO 500 mg, oral, EVERY 12 HOURS oxyCODONE 5 mg immediate release tablet Commonly known as: ROXICODONE 5 mg, oral, EVERY 4 HOURS PRN CONTINUE taking these medications Sig acetaminophen 325 mg tablet Commonly known as: TYLENOL 325 mg, oral, EVERY 6 HOURS clindamycin 1 % gel Commonly known as: CLINDAGEL Apply topically to affected areas on chest and back once daily. You can apply to face in the morning. Use thin film. ibuprofen 800 mg tablet Commonly known as: MOTRIN 800 mg, oral, 3 TIMES DAILY montelukast 10 mg tablet Commonly known as: SINGULAIR 10 mg, oral, AT BEDTIME propranolol 10 mg tablet Commonly known as: INDERAL 20 mg, oral, DAILY spironolactone 50 mg tablet Commonly known as: ALDACTONE 50 mg, oral, 2 TIMES DAILY tamsulosin 0.4 mg capsule Commonly known as: FLOMAX 0.4 mg, oral, DAILY tretinoin 0.025 % cream Commonly known as: RETIN-A Apply topically to face at night. Apply sparingly. Do not apply immediately after washing, may sting. STOP taking these medications oxyCODONE-acetaminophen 5-325 mg per tablet Commonly known as: PERCOCET Results Pending at Discharge Test results still pending from this admission None Lab Results Component Value Date BUN 10 12/21/2015 Creatinine: Lab Results Component Value Date CREATININE 0.70 12/21/2015 CBC: Lab Results Component Value Date WBC 7.51 12/21/2015 RBC 3.87 12/21/2015 HGB 10.8* 12/21/2015 HCT 31.7* 12/21/2015 MCV 82 12/21/2015 MCH 27.9 12/21/2015 MCHC 34.1 12/21/2015 PLT 238 12/21/2015 DIFFTYPE Automated 12/21/2015 Electrolytes: Lab Results Component Value Date NA 138 12/21/2015 K 4.4 12/21/2015 CL 105 12/21/2015 CO2 25 12/21/2015 Discharge Follow Up Appointments Scheduled with [facility] in the next 3 months Future Appointments Date Time Provider Department Center 12/26/2015 13:30 Scope, Cystoscopy EP5 Uro None 12/26/2015 14:00 Porfirio Vee MD EP5 Uro None 02/20/2016 13:00 Rina Albert MD WP5 Derm None Appointments and Procedures Recommended to Patient None Studies We Will Schedule None documented in this encounter Discharge Instructions * Discharge Instructions* Rina Reis PA - 12/21/2015 15:59 EDT Diet: Resume preoperative diet Activity: No heavy lifting or strenuous exercise x 24 hours Driving: No driving for 24 hours No driving while taking narcotic pain medications Skin/Wound Care: Resume normal skin care. Bathing: Shower only Shower with soap and water daily. No showering for 24 hours Symptoms to Call Your Doctor About: Burning with urination, Chest pain, Dizziness, Increased blood in urine, Increased pain, Nausea or vomiting, Pain unrelieved by medication, Shortness of breath, Temperature greater than 101 degrees Fand Urinary retention Appointments: See Dr. Porfirio Vee MD for stent removal and post-op visit Future Appointments Date Time Provider Department Center 12/26/2015 13:30 Scope, Cystoscopy EP5 Uro None 12/26/2015 14:00 Porfirio Vee MD EP5 Uro None 02/20/2016 13:00 Rina Albert MD WP5 Derm None Follow-up Services Contacted at Discharge: Attending physician documented in this encounter Medications at Time of Discharge Medication Sig Dispensed Refills Start Date End Date acetaminophen (TYLENOL) 325 mg tablet Take 325 mg by mouth every 6 hours. Reported on 12/20/2016 02/22/2017 ciprofloxacin HCl (CIPRO) 500 mg tablet Take [...] at bedtime 90 Tab 2 03/09/2015 11/05/2016 oxyCODONE (ROXICODONE) 5 mg immediate release tablet [...] Dispensed Refills Start Date End Da te ciprofloxacin HCl (CIPRO) 500 mg tablet Take 1 Tab by mouth every 12 hours for 5 days. 10 Tab 0 12/21/2015 12/26/2015 oxyCODONE (ROXICODONE) 5 mg immediate release tablet Take 1 Tab by mouth every 4 hours as needed for Pain. Daily Max: 30 mg 8 Tab 0 12/21/2015 12/23/2015 documented in this encounter Discharge Disposition Disposition Code Departure Means Destination Home or Self Care documented in this encounter Progress Notes * Rell Betancourt, DO - 12/21/2015 0607 EDT Urology Progress Note Chief complaint: right flank pain Diagnosis: 4mm distal right ureteral stone 24 hour events: - Pain better control - No stone in strained urine - LOULOU overnight Subjective: Much better pain control overnight. Denies N/V/SOB/chest pain. Ambulating around floor okay. Tolerating PO, but has been NPO overnight. Voiding okay and straining urine. No stones seen. ROS as above. All others negative. Objective: Blood pressure 113/65, pulse 81, temperature 36.6 ??C (97.9 ??F), temperature source Tympanic, resp. rate 18, height 162.6 cm (64), weight 90.719 kg (200 lb), SpO2 100 %, currently . Intake/Output Summary (Last 24 hours) at 12/21/15 0607 Last data filed at 05/12/16 0252 Gross per 24 hour Intake 2652 ml Output 3300 ml Net -648 ml Exam: Gen: NAD CV: RRR Resp: nl effort, on RA Abdominal: Soft, non-distended, nontender Back: Right back tenderness improved : No monzon Extremities: WWP Neuro: alert and oriented x3, no gross motor or sensory deficits MSK: nl ROM WBC/Hgb/Hct/Plts: 12.15/13.5/38.2/324 (12/17 1200) Assessment: 25 y.o. female with PMH significant for endometriosis s/p pelvic laparoscopy, left ovarian cyst, IBS, migraines, and asthma who presented to the [facility] ED with worsening right flank pain. CT scan with 4mm right distal ureteral stone near the UVJ and mild hydroureteronephrosis present. Attempt at pain control in ED was unsuccessful overnight. Admitted for pain control. Unable to pass stone overnight. Pain control much improved. Plan: Pain control with Toradol, tylenol, oxycodone. Flomax for distal stone - may help pass stone independently. Zofran for nausea. ?? Procedure today - consent obtained KUB Strain urine Encourage IS OOB/amb QID as tolerated IVF at 75cc/hr AMA: Possibly today after procedure Diet: DIET NPO AFTER MIDNIGHT DVT Prophylaxis: ambulate, SCDs Cayden Yusuf MD 12/21/2015 6:07 Weekdays from 7AM-5PM page [phone] with questions. Attestation: I saw and examined the patient with the resident/fellow 12/21/2015. I agree with the findings and plan of care documented in the resident's/fellow's note. Discussed if no pain ? Conservative Rx at home or at least cysto/retrograde to see if stone has passed? Will revvaluate midday and see what Mrs. Knight would like to do. Rell Betancourt DO 12/21/2015 6:44 * Bobby Brooke - 12/21/2015 1857 EDT Medical Student Urology Progress Note Admit Date: 12/20/2015 Hospital day: 1 Date of Service: 12/21/2015 Reason for Admission: Right flank pain, right ureterolithiasis Subjective: - Patient is resting comfortably in no pain. - Complains of cramping pain in RLQ overnight - Denies N/V, able to ambulation - Straining her own urine, no stone found - ROS: Denies fevers/chills/SANTIAGO/CP/SOB/extremety pain Objective: Vital Signs: Patient Vitals for the past 8 hrs: BP Temp Temp src Resp SpO2 12/21/15 0210 - 36.6 ??C (97.9 ??F) Tympanic 18 98 % 12/20/15 2120 110/63 mmHg 36.1 ??C (97 ??F) Tympanic 16 100 % I/Os: Intake/Output Summary (Last 24 hours) at 12/21/15 0506 Last data filed at 12/21/15 0252 Gross per 24 hour Intake 2652 ml Output 3300 ml Net -648 ml Exam: - General: A&Ox3, in no apparent distress. - Lungs: Clear to auscultation bilaterally in posterior sousa, no increased respiratory effort - Heart: RRR, clear S1/S2, no MRG - Abdomen: Soft, obese, non-tender, non-distended, +BS, no masses/organomegaly - Extremities: Warm, well perfused, no edema - Back: No costovertebral angle tenderness. Labs: CBC: Recent Labs 12/18/15 1200 WBC 12.15 RBC 4.75 HGB 13.5 HCT 38.2 MCV 80* MCH 28.4 MCHC 35.3 PLT 324 NEUTROABS 9.00* BMP: Recent Labs 12/18/15 1200 12/20/15 0425 NA 138 139 K 4.8 4.6 CL 104 106 CO2 23* 22* BUN 13 12 CREATININE 0.70 0.88 CALCIUM 9.4 9.0 CALCCA 9.6 9.7 LABALBU 4.2 -- Imaging: Ct Renal Colic 12/18/2015 CT RENAL COLIC 12/18/2015 12:33 PM Signs and Symptoms/Comments: FLANK PAIN, right sided flank pain Technique: Axial CT images obtained from abdomen immediately superior to level of kidneys through the pelvis without administration of contrast of any kind. Sagittal and coronal reformats genera kelsi. Comparison: None Findings: Kidneys and ureters: There [...] far as included: The liver and spleen areunremarkable. Gallbladder, pancreas adrenal glands: The gallbladder, pancreas, [...] sacroiliac joints, left greater than right. The bon es are otherwise unremarkable. Impression: 1. Mild right hydroureteronephrosis due to a 4 mm calculus at the stress right ureterovesicular junction. 2. Unenhanced CT otherwise within normal limits. Dr. Donahue discussed findings with MERVIN HERBERT RELAY REPAIRER at 1320 on 12/18/2015 I have personally reviewed the images and the above interpretation and agree with the findings. 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 The right ovary measures 3 x 1.5 x 2 cm and demonstrates n ormal arterial and venous waveforms. The left ovary [...] have personally reviewed the images and the aboveinterpretation and agree with the findings. Assessment: Gladys Lopez is a 25 y.o. female with . VSS, pain control, lab, bowel function, complications? Plan: - Meds: D/C oxycodone and dilauded, continue tylenol PRN - Encourage IS - OOB / ambulate as tolerated - Discharge today - Discussed with resident team Thank you for the opportunity to be involved in the care of Gladys Lopez. Bobby Brooke MS-IV, [facility] Pager [phone] 12/21/2015 5:06 documented in this encounter H&P Notes * Rell Betancourt DO - 12/20/2015 1211 EDT Urology H&P Note Admit Date: 12/20/2015 Date of Service: 12/20/2015 Hospital Day: 1 PCP: Amanda Larson Requesting Physician: Emergency Department Specialty Completing Consult: Urologic Surgery Reason for Consult: 4mm right distal ureteral stone HPI: Gladys Lopez is a 25 yo female with PMH significant for endometriosis s/p pelvic laparoscopy, left ovarian cyst, IBS, migraines, and asthma who presents to the [facility] ED with worsening right flank pain. She states that right flank pain started 2 days ago. At that time she presented to urgent care center. She had a CT performed that showed a distal right ureteral stone with mild hydroureteronephrosis. She was given Percocet, ibuprofen, and flomax and discharged home. She presents back last night with acutely worsening right flank pain. She tried the medications at home to control the pain, but was unsuccessful. She had some nausea at home but did not vomit at home. She states that she had emesis in the ED. Overnight, she was given pain medication to try to control her pain, but the pain did not get better. She denies fevers, chills, chest pain, shortness of breath, abdominal pain. Admits to constipation. She is afraid to go home with uncontrolled pain because of her young child athome. She would prefer to try to pass stone on her own. MEDICATIONS: Admits to propanolol, singulair, rescue inhaler, spironolactone, control PAST MEDICAL Hx: Endometriosis, left ovarian cyst, IBS, migraines, and asthma PAST SURGICAL Hx: Pelvic laparoscopy SOCIAL Hx: Previous history of smoking, has not smoked cigarettes in 3 years. Social alcohol use. No recreational drug use. Lives in [place]. 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 Has an 11-month old at home. ROS: Pertinent items in HPI. OBJECTIVE: Blood pressure 126/87, pulse 81, temperature 36.5 ??C (97.7 ??F), temperature source Tympanic, resp. rate 18, height 162.6 cm (64), weight 90.719 kg (200 lb), SpO2 100 %, currently . Exam: Gen: Alert, oriented, cooperative, NAD Lungs: CTAB, nonlabored, on RA Heart: RRR Abd: Soft, obese, nt, nd, no rebound or guarding Back: Right flank tenderness, no left flank tenderness Ext: WWP LABS: WBC/Hgb/Hct/Plts: 12.15/13.5/38.2/324 (12/17 1200) Na/K/Cl/CO2: 139/4.6/106/22 (12/19 424) BUN/Cr/glu/ALT/AST/amyl/lip: 12/0.88/100/--/--/--/-- (12/19 424) U/A has been reviewed. No signs of infection. IMAGING: CT scan has been reviewed. 4mm right distal ureteral stone near the UVJ. Mild hydroureteronephrosispresent. ASSESSMENT: 25 y.o. female with PMH significant for endometriosis s/p pelvic laparoscopy, left ovarian cyst, IBS, migraines, and asthma who presents to the [facility] ED with worsening right flank pain. CT scan with 4mm right distal ureteral stone near the UVJ and mild hydroureteronephrosis present. Attempt at pain control in ED was unsuccessful overnight. Will admit patient for pain control. She is afebrile and her U/A does not have signs of infection. She can attempt to pass her stone independently over the next 24 hours. No urgent surgical intervention is warranted at this time. RECOMMENDATIONS: - Admit patient to urology for pain control. - Pain control with Toradol, tylenol, oxycodone. - Flomax for distal stone - may help pass stone independently. - Zofran for nausea. - Will allow for conservative management over next 24 hours. She can try to pass the stone on her own. Will strain all of her urine to see if she passes stone. - Will add her on schedule tomorrow for OR time should she not pass her stone. - Can plan for either cystoscopy with stone removal or cystoscopy with right ureteral stent placement. Cayden Yusuf MD 12/20/2015 12:11 Rell Betancourt DO 12/21/2015 6:40 Attestation: I saw and examined the patient with the resident/fellow. I agree with the findings andplan of care documented in the resident's/fellow's note. We discussed continued conservative Rx andpossible endoscopic interventions as needed. She has passed similar stones in the past. We discussed eventual metabolic stone evaluation to see what additional prevention measures can be done. Rell Betancourt DO 12/21/2015 6:41 documented in this encounter OR Notes * OR Surgeon - Porifrio Vee MD - 12/21/2015 9299 EDT OPERATIVE REPORT SERVICE DATE: 12/21/2015 PREOPERATIVE DIAGNOSIS: Right ureteral calculus. POSTOPERATIVE DIAGNOSES: Right ureteral calculus. PROCEDURES: Cystoscopy, right retrograde pyelography, right ureteroscopy, stone extraction and stent placement. SURGEON: Porfirio Vee MD I was present and scrubbed for the entire case. AIRBORNE MISSIONS SYSTEMS: AZRA Jenkins (as no qualified residents were available.) ANESTHESIA: General. INDICATIONS: Ms Lopez is a 25-year-old woman who was found to have a right distal ureteral stonewho has had refractory pain. She now presents for stone removal and possible stent placement. NARRATIVE: The patient was taken to the operating room and placed in lithotomy position after induction of general anesthesia. Her perineum and genitals were prepped and draped in the usual sterile fashion. A 22-Azerbaijani cystoscope and sheath was introduced into the bladder via the urethra. Bladder was examined in its entirety. All mucosal surfaces were visualized and all appeared normal. The rightureteral orifice was identified and cannulated with a 5-Azerbaijani open-ended ureteral catheter throughwhich a 0.038 Glidewire was passed up to the level of the renal pelvis. Of note, the stone was quite impacted and it took some mild manipulation of the wire to get it past the stone. Following this, the semirigid ureteroscope was passed into the distal ureter over a 0.038 guidewire, which had also been passed up to the level of the renal pelvis under fluoroscopic guidance. Of note, the Glidewire upon getting to the level of the stone was noted to be in an area of approximately 2 to 3 mm in length submucosal, for this reason, it was withdrawn, leaving the guidewire as a safety wire and the uret eroscope was passed alongside the guidewire up to the level of the patient's stone. At this point, the distal ureter had been dilated with the shaft of the scope enough that it was felt the stone would be able to be removed without difficulty, intact. This was performed with a 0 tip nitinol basket without any difficulty. A small amount of contrast was then injected through a 5-Azerbaijani open-ended ureteral catheter into the renal pelvis to allow for excellent positioning of a 6-Azerbaijani x 26 double-J ureteral stent with the proximal curl seated well within the renal pelvis, distal curl seated wellwithin the bladder over the guidewire. At termination of procedure, bladder was drained and instruments removed. DISPOSITION: The patient was awakened from anesthesia and taken to the recovery room in stable condition postoperatively. ESTIMATED BLOOD LOSS: Minimal. COMPLICATIONS: None. PLAN: Will be for the patient to undergo a cystoscopic stent removal in the office in 1 week's timewithout a need for a followup KUB as she was deemed essentially stone free endoscopically. Unless otherwise noted, there were no complications, no blood loss, no cultures obtained, no specimens removed, and no drains retained. Porfirio eVe MD 03 37 PM / Porfirio Vee MD rn Confirmation: [id number] Dictation ID: [id number] documented in this encounter ED Notes * Moris Borrero MD - 12/20/2015 0815 EDT I, Mary Anne Lowe, am scribing for Moris Borrero MD while he is personally performing the service. Mary Anne Lowe 12/20/2015 8:15 Gladys Lopez is a 25 y.o. female who presents to the ED with pain from a known 4mm right UVJstone. I assumed care of patient from Dr. Pedroza with Urology consultation pending. After I assumed care the patient was admitted to Dr. Boateng of urology. This documentation is recorded by Mary Anne Lowe acting as Scribe under the direction and presenceof Moris Borrero MD. Moris Borrero MD: I personally performed the services recorded by the scribe in my presence. I confirm the scribe's documentation has been reviewed by me to accurately and completely record my work, treatment, procedures, and medical decision making. * Rina Fraga RN - 12/20/2015 0750 EDT Walked to bathroom to void. Strained urine, no stone seen. * Rina Fraga RN - 12/20/2015 0734 EDT Sleeping, rouses to voice. No pain at this time. Urology resident in for consult. * Tyra Kim RN - 12/20/2015 0553 EDT Late entry: Patient OOB to bathroom and vomited X1. Reports that she threw up Flomax. Gave zofran, tolerated another dose of Flomax and ice chips. * Tyra Kim RN - 12/20/2015 0429 EDT Blood was drawn, and specimens were sent per order. * Tyra Kim RN - 12/20/2015 0337 EDT Patient sleeping soundly, eyes closed. Patient's at bedside. No needs at this time. Will cont to monitor. * Jayda Pedroza MD - 12/20/2015 0107 EDT DOS: 12/20/2015 Chief Complaint Patient presents with ??? Nephrolithiasis DX with 5 cm kidney stone 2 days ago at urgent care, discharged home with precocet. Tonight had acute pain that did not go away pain meds. Afebrile. Unable to void. HPI HPI Comments: I, Spike Ma, am scribing for Jayda Pedroza MD while she is personally performing the service. Spike Ma 12/20/2015 1:34 Gladys Lopez is a 25 y.o. female with a history of endometriosis, Left sided ovarian cyst, and nephrolithiasis (1 year ago) who presents with Right flank pain in the context of recent diagnosis of nephrolithiasis (CT on December 17 revealed 4mm nephrolith). Pt was seen at Urgent care 2 days ago for flank pain, was diagnosed with nephrolithiasis, and discharged home with percocet and Flomax. Ptsays the pain was initially resolved with use of percocet. She presents tonight with persistent flank pain, unrelieved with use of percocet (took 1 half of a pill twice earlier today, 1 whole pill this evening) and ibuprofen (600mg today). She says she has been unable to urinate since recurrence ofpain. Pt describes associate nausea and constipation. Pt denies fever. She denies vomiting. Nephrolithiasis Associated symptoms: nausea Associated symptoms: no fever and no vomiting The history is provided by the patient and medical records. Review of Systems Review of Systems Constitutional: Negative for fever. Gastrointestinal: Positive for nausea. Negative for vomiting. Genitourinary: Positive for flank pain (Right side) and difficulty urinating. All other systems reviewed and are negative. Allergies Allergen Reactions ??? Adhesive Rash ??? Latex, Natural Rubber Rash ??? Morphine Nausea And Vomiting Morphine caused patient to feel very aggressive ??? Tramadol Nausea Only Dizziness Vital Signs Vitals Reassessment?: Yes Temp: 36.8 ??C (98.2 ??F) Temp src: Tympanic Pulse: 71 Heart Rate: 85 BPM Resp: 12 SpO2: 99 % BP: 124/66 mmHg BP MAP: 79 mm Hg BP Device: BP Machine Patient Position: Semi fowlers BP Cuff Location: Right arm O2 Flow Rate (L/min): 3 l/min O2 Device: None (Room air) Physical Exam Constitutional: She is oriented to person, place, and time. She appears well- developed and well-nourished. She appears distressed (moderately). Pt tearful HENT: Head: Normocephalic and atraumatic. Right Ear: External ear normal. Left Ear: External ear normal. Eyes: Conjunctivae and EOM are normal. Pupils are equal, round, and reactive to light. Neck: Normal range of motion. Neck supple. Cardiovascular: Normal rate, regular rhythm and normal heart sounds. Pulmonary/Chest: Effort normal and breath sounds normal. Abdominal: Soft. Bowel sounds are normal. There is no tenderness. There is no guarding. 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 She exhibits no edema. Neurological: She is alert and oriented to person, place, and time. Skin: Skin is warm and dry. She is not diaphoretic. Psychiatric: She has a normal mood and affect. Nursing note and vitals reviewed. RESULTS Procedures ED COURSE A medical screening exam was performed. 25 y.o. female presented with flank pain in the context of recent diagnosis of nephrolithiasis (4mmstone, diagnosed by CT 2 days ago). 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 Pt was administered Toradol (15mg) and Dilaudid (1mg). She reported decreased pain following administration of these medications. LABS: Patient had labs that were reviewed independently by myself, unremarkable. Negative UPT. 0358: Pt reevaluation. She reported that her pain was returning. She was administered repeat dose of Dilaudid (2mg) and Toradol (15mg). 0448: Pt vomited Flomax while in bathroom. She endorsed some nausea afterwards. Pt administered Zofran (4mg). 0626: Pt reevaluation. She said she had recurrence of pain, which was now improving due to administration of pain medications. Pt was signed out to Dr. Moris Borrero with Urology consult pending. ASSESSMENT AND PLAN Final diagnoses: Kidney stone PCP: Abdoulaye Gonzalez MDM Number of Diagnoses or Management Options Amount and/or Complexity of Data Reviewed Clinical lab tests: ordered and reviewed Independent visualization of images, tracings, or specimens: yes This documentation is recorded by Spike Ma acting as Scribe under the direction and presence of Jayda Pedroza MD. Jayda Pedroza MD: I personally performed the services recorded by the scribe in my presence. I confirm the scribe's documentation has been reviewed by me to accurately and completely record my work, treatment, procedures, and medical decision making. 12/23/2015 22:14 No flowsheet data found. documented in this encounter Miscellaneous Notes * Anesthesia Post-Gabrielle Pappas - 12/21/2015 1602 EDT Post Anesthesia Evaluation Note Date of Service: 12/21/2015 Gladys Lopez, a 25 y.o. year old female has received General Anesthesia today. She has been evaluated, assessed and discharged from anesthesia care with stable cardiorespiratory function and easily arousable mental status. The last set of recorded vital signs and pain rating were reviewed: Temp: 37.1 ??C (98.8 ??F), Heart Rate: 79 BPM, Pulse: 71, BP: 107/68 mmHg, Resp: 18, SpO2: 100 %,Numeric Pain Level (Scale 1-10): 0 Gladys Lopez participated in this evaluation unless otherwise noted. Her pain, nausea and vomiting have been managed and her body temperature and fluid balance have been restored. Additional monitoring and assessment needs have been addressed. If present, any postoperative events are documented below. Gabrielle Oakley 12/21/2015 16:02 * Brief Op Note - Bobby Brooke - 12/21/2015 1544 EDT The Urologic Surgery Brief Post-Op Note Date of Surgery: 12/21/2015 Surgeon: Porfirio Vee MD Assistants: Rina Reis PA-C, Bobby Brooke Pre-Op Diagnosis: right distal ureteral stone Post-Op Diagnosis: right distal ureteral stone Procedure(s): cystoscopy, right retrograde pyelogram, ureteroscopy, stent placement in right ureter Findings: right ureteric stone Anesthesia Type: General The estimated blood loss was Minimal Unless otherwise noted, there were no specimens removed,cultures obtained, or drains retained. Fluids: Gladys Lopez received Crystalloids 500 mL for fluid replacement. Urine Output: N/A Specimens/Cultures: right ureteral stone for stone analysis Drains/Packs: None Stents: Right, 6Fr by 26cm, no pull-out string Complications: none Disposition andCondition: Gladys Lopez was sent to PACU in Stable condition. Bobby Brooke 12/21/2015 15:45 * Plan of Care - Marian Duran - 12/21/2015 1057 EDT Problem: Daily Care Plan Goals Goal: Care Plan Documentation Outcome: Ongoing 12/21/15 0935 Care Plan Focus Area of Focus Pain/ Comfort Goal This Shift pain will remain tolerable Data: Continues with 4mm UVJ stone. C/O 6/10 pain this AM r/t stone. Action: Medicated with Tylenol and Oxy IR (see MAR). Response: Rating pain 2/10 upon reassessment. Marian Duran RN 12/21/2015 10:56 * Plan of Care - Daina Hess RN - 12/21/2015 0348 EDT Problem: Daily Care Plan Goals Goal: Care Plan Documentation Outcome: Met This Shift 12/20/15 2129 Care Plan Focus Area of Focus Pain/ Comfort Goal This Shift pain will be adequately managed Data: Pt admitted with R distal ureter stone. Pt c/o pain 6/10 in R flank area. Action: Education provided on pain management, scheduled and PRN pain medications administered in atimely manner, ambulation encouraged, rest promoted by providing a quiet/dim environment and clustering nursing activities. Response: Pt verbalized understanding of the teaching provided. Pt was observed ambulating independently around the unit x2 this shift. Pt is currently sleeping comfortably, RR WNL. Call light is within reach. Will continue to monitor. Daina Hess RN 12/21/2015 3:42 * Plan of Care - Giselle Rose RN - 12/20/2015 1312 EDT Problem: Daily Care Plan Goals Goal: Care Plan Documentation Outcome: Met This Shift 12/20/15 1203 Care Plan Focus Area of Focus Education Goal This Shift admit/orient pt, pain control Data: Pt arrived from ED, pt with 4mm kidney stone at right UVJ. A&Ox3, lungs clear, HRR, bowelsounds present, +csmts, rating pain of 10/10 on right flank/lower back. Action: Oriented pt to the unit. Education provided on IS use, bed operations, menu, and call haile.Medicated pt with oxy and toradol. Response: Pt verbalized understanding all of the above teachings. Rating pain of 1/10 upon reassessment. Giselle Rose RN 12/20/2015 13:03 documented in this encounter Plan of [...] Procedure Name Priority Date/Time Associated Diagnosis Comments IMPLANT RECORD - SCANNED 12/29/2015 10:34 EDT ECG REPORT - SCANNED 12/25/2015 13:34 EDT IMPLANT RECORD - SCANNED 12/25/2015 13:34 EDT RETROGRADE UROGRAM Routine 12/21/2015 15 :47 EDT KIDNEY STONE ANALYSIS Routine 12/21/2015 15:30 EDT PORTABLE ABDOMEN 1 VIEW Routine 12/21/2015 6:58 EDT COMPLETE BLOOD COUNT AND DIFFERENTIAL Routine 12/21/2015 6:20 EDT BUN Routine 12/21/2015 6:20 EDT CREATININE Routine 12/21/2015 6:20 EDT ELECTROLYTES Routine 12/21/2015 6:20 EDT BASIC METABOLIC PANEL (BMP) STAT 12/20/2015 4:25 EDT POCT TEST, CLINITEK STAT 12/20/2015 2:16 EDT POCT URINE DIPSTICK, CLINITEK STAT 12/20/2015 2:14 EDT documented in this encounter Results * IMPLANT RECORD - SCANNED (12/29/2015 10:34 EDT) 12/29/2015 10:3 4 EDT Scan 2 Hand Bender PROCEDURE/MINOR JANUARY GICAL ORDERABLES * ECG REPORT - SCANNED (12/25/2015 13:34 EDT) 12/25/2015 13:3 4 EDT Scan 2 Hand Bender PROCEDURE/MINOR JANUARY GICAL ORDERABLES * IMPLANT RECORD - SCANNED (12/25/2015 13:34 EDT) 12/25/2015 13:3 4 EDT Scan 2 Hand Bender PROCEDURE/MINOR JANUARY GICAL ORDERABLES * RETROGRADE UROGRAM (12/21/2015 15:47 EDT) Anatomical Region Laterality Modality Other 12/21/2015 15:4 7 EDT Narrative 12/21/2015 15:47 EDT Non Reportable Exam 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, 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 - 12/21/2015 Non Reportable Exam Porfirio Vee MD IMG FLUOROSCOPY O RDERABLES * KIDNEY STONE ANALYSIS (12/21/2015 15:30 EDT) Source RIGHT URETERAL CALCULI 12/21/2015 15:59 EDT [facility] 1st Constituent 40% Calcium oxalate monohydrate 12/23/2015 7:55 EDT [facility] 2nd Constituent 30% Calcium oxalate dihydrate 12/23/2015 7:55 EDT [facility] 3rd Constituent 30% Calcium phosphate (apatite) 12/23/2015 7:55 EDT [facility] Comment: Performed by: [facility] Labs: [address], [place] [address], Lab Dir: Luiz Kumari II, M.D., Ph.D. Specimen of unknown material (specimen) TOPOGRAPHY UNKNOWN / Unknown 12/21/2015 15:30 EDT 12/21/2015 15:59 EDT Porfirio Vee MD GEN LAB UNIT VICKIE ECT ORDERABLES [facility] [address] [place] [address] * PORTABLE ABDOMEN 1 VIEW (12/21/2015 6:58 EDT) Anatomical Region Laterality Modality Other 12/21/2015 6:58 EDT 12/21/2015 9:00 EDT Narrative 12/21/2015 9:00 EDT PORTABLE ABDOMEN 1 VIEW ??12/21/2015 6:58 AM SIGNS AND SYMPTOMS/COMMENTS: ??KIDNEY STONE COMPARISONS: CT renal colic performed 12/18/2015 TECHNIQUE: Portable frontal views of the abdomen were acquired. FINDINGS: A 4 mm calculus is again noted in the region of the right ureterovesicular junction. There are otherwise no abnormal soft tissue calcifications or radiodense calculi. Air and stool is present throughout the colon and rectum. A few air-filled loops of nondilated small bowel are noted. There is no hepatosplenomegaly. The bones and overlying soft tissues are unremarkable for age. IMPRESSION: 4 mm calculus again noted in the region of the right ureterovesicular junction I have personally reviewed the images and the above interpretation and agree with the findings. Procedure Note Gerson Dawson MD - 12/21/2015 PORTABLE ABDOMEN 1 VIEW 12/21/2015 6:58 AM SIGNS AND SYMPTOMS/COMMENTS: KIDNEY STONE COMPARISONS: CT renal colic performed 12/18/2015 TECHNIQUE: Portable frontal views of the abdomen were acquired. FINDINGS: A 4 mm calculus is again noted in the region of the right ureterovesicular junction. There are otherwise no abnormal soft tissue calcifications or radiodense calculi. Air and stool is present throughout the colon and rectum. A few air-filled loops of nondilated small bowel are noted. There is no hepatosplenomegaly. The bones and overlying soft tissues are unremarkable for age. IMPRESSION: 4 mm calculus again noted in the region of the right ureterovesicular junction I have personally reviewed the images and the above interpretation and agree with the findings. Cayden Yusuf MD IMG DIAGNOSTI C IMAGING ORDERABLES * (ABNORMAL) HEMAGRAM AND DIFFERENTIAL (12/21/2015 6:20 EDT) WBC 7.51 4.0 - 12.4 K/cmm 12/21/2015 7:05 [facility] RBC 3.87 3.86 - 5.04 M/cmm 12/21/2015 7:05 [facility] Hemoglobin 10.8(L) 11.6 - 15.2 gm/dl 12/21/2015 7:05 [facility] HCT 31.7(L) 34.9 - 44.4 % 12/21/2015 7:05 [facility] MCV 82 81 - 98 fl 12/21/2015 7:05 [facility] MCH 27.9 26.7 - 33.3 pg 12/21/2015 7:05 [facility] MCHC 34.1 32.1 - 35.9 gm/dl 12/21/2015 7:05 [facility] RDW-CV 13.2 11.7 - 14.6 % 12/21/2015 7:05 [facility] RDW-SD 39.2 37.6 - 50.3 fl 12/21/2015 7:05 [facility] PLT 238 141 - 377 K/cmm 12/21/2015 7:05 [facility] MPV 11.0 9.5 - 12.7 fl 12/21/2015 7:05 [facility] % Neutrophils 47.1 % 12/21/2015 7:05 [facility] % Lymphocytes 41.9 % 12/21/2015 7:05 [facility] % Monocytes 8.4 % 12/21/2015 7:05 [facility] % Eosinophils 1.6 % 12/21/2015 7:05 [facility] % Basophils 0.5 % 12/21/2015 7:05 [facility] % Immature Grans 0.5 % 12/21/2015 7:05 [facility] ABS Neutrophils 3.53 2.20 - 8.85 K/cmm 12/21/2015 7:05 [facility] ABS Lymphs 3.15 1.09 - 3.30 K/cmm 12/21/2015 7:05 [facility] ABS Monocytes 0.63 0.1 - 0.8 K/cmm 12/21/2015 7:05 [facility] ABS Eosinophils 0.12 0.03 - 0.61 K/cmm 12/21/2015 7:05 [facility] ABS Basophils 0.04 0.01 - 0.11 K/cmm 12/21/2015 7:05 [facility] ABS Immature Grans 0.04 0 - 0.06 K/cmm 12/21/2015 7:05 [facility] Type of Diff: Automated 12/21/2015 7:05 [facility] Blood specimen (specimen) BLOOD SPECIMEN / Unknown 12/21/2015 6:20 EDT 12/21/2015 6:42 EDT Cayden Yusuf MD PACKAGES & DN A PROBE ORDERABLES Performing Organization Address City/[facility]/ZIP Co de Phone Number [facility] [address] [place] [address] * BUN (12/21/2015 6:20 EDT) BUN 10 10 - 26 mg/dl 12/21/2015 7:25 T [facility] Blood specimen (specimen) BLOOD SPECIMEN / Unknown 12/21/2015 6:20 EDT 12/21/2015 6:42 EDT Cayden Yusuf MD CHEMISTRY & B LOOD GAS ORDERABLES Performing Organization Address [facility] Co de Phone Number [facility] [address] [place] [address] * CREATININE (12/21/2015 6:20 EDT) Creatinine 0.70 0.52 - 1.04 mg/dl 12/21/2015 7:25 EDT [facility] GFR, Calculated 121 >60 ml/min/1.7 3m2 12/21/2015 7:25 EDT [facility] Comment: eGFR calculated using CKD-EPI equation for non Americans. Multiply eGFR by 1.16 for Americans. Blood specimen (specimen) BLOOD SPECIMEN / Unknown 12/21/2015 6:20 EDT 12/21/2015 6:42 EDT Cayden Yusuf MD CHEMISTRY & B LOOD GAS ORDERABLES Performing Organization Address [facility] de Phone Number [facility] [address] [place] [address] * ELECTROLYTES (12/21/2015 6:20 EDT) Sodium 138 136 - 145 mEq/L 12/21/2015 7:25 EDT [facility] Potassium 4.4 3.5 - 5.0 mEq/L 12/21/2015 7:25 EDT [facility] Chloride 105 96 - 110 mEq/L 12/21/2015 7:25 EDT [facility] CO2 25 24 - 32 mEq/L 12/21/2015 7:25 T [facility] Blood specimen (specimen) BLOOD SPECIMEN / Unknown 12/21/2015 6:20 EDT 12/21/2015 6:42 EDT Cayden Yusuf MD CHEMISTRY & B LOOD GAS ORDERABLES Performing Organization Address [facility] de Phone Number [facility] [address] [place] [address] * (ABNORMAL) BASIC METABOLIC PANEL (12/20/2015 4:25 EDT) Sodium 139 136 - 145 mEq/L 12/20/2015 4:49 EDT [facility] Potassium 4.6 3.5 - 5.0 mEq/L 12/20/2015 4:49 T [facility] Chloride 106 96 - 110 mEq/L 12/20/2015 4:49 T [facility] CO2 22(L) 24 - 32 mEq/L 12/20/2015 4:49 EDT [facility] BUN 12 10 - 26 mg/dl 12/20/2015 4:49 EDT [facility] Creatinine 0.88 0.52 - 1.04 mg/dl 12/20/2015 4:49 EDT [facility] GFR, Calculated 92 >60 ml/min/1.7 3m2 12/20/2015 4:49 EDT [facility] Comment: eGFR calculated using CKD-EPI equation for non Americans. Multiply eGFR by 1.16 for Americans. Calcium 9.0 8.5 - 10.5 mg/dl 12/20/2015 4:49 EDT [facility] Calculated Calcium 9.7 8.5 - 10.5 mg/dl 12/20/2015 4:49 T [facility] Glucose, Serum 100 70 - 100 mg/dl 12/20/2015 4:49 T [facility] Fasting? Unknown 12/20/2015 4:29 EDT [facility] Blood specimen (specimen) BLOOD SPECIMEN / Unknown 12/20/2015 4:25 EDT 12/20/2015 4:29 EDT Jayda Pedroza MD CHEMISTRY & BLOOD G ORDERABLES [facility] [address] [place] [address] * POCT TEST, CLINITEK (12/20/2015 2:16 EDT) UPT Result Neg Neg 12/20/2015 2:18 EDT [facility] photoflash powder mixer ID [id number] 12/20/2015 2:18 EDT [facility] Comment:Test performed at [facility] Urine specimen (specimen) URINE / Unknown 12/20/2015 2:16 EDT 12/20/2015 2:18 EDT Jayda Pedroza MD POINT OF CARE TEST ORDERABLES [facility] [address] [place] [address] * POCT URINE DIPSTICK (12/20/2015 2:14 EDT) Color YELLOW 12/20/2015 2:12 EDT [facility] Clarity, UA Clear 12/20/2015 2:12 EDT [facility] Glucose Neg Neg 12/20/2015 2:12 EDT [facility] Bilirubin Neg Neg 12/20/2015 2:12 EDT [facility] Ketones Neg Neg 12/20/2015 2:12 EDT [facility] Specific [place] >=1.030 1.001 - 1.035 12/20/2015 2:12 EDT [facility] Blood Neg Neg 12/20/2015 2:12 EDT [facility] pH 5.5 4.6 - 8.0 12/20/2015 2:12 EDT [facility] Protein Neg Neg 12/20/2015 2:12 T [facility] Urobilinogen 0.2 0.2 - 1.0 E.U./dl 12/20/2015 2:12 T [facility] Nitrite Neg Neg 12/20/2015 2:12 T [facility] Leuk Esterase Neg Neg 12/20/2015 2:12 T [facility] photoflash powder mixer ID [id number] 12/20/2015 2:12 T [facility] Comment:Test performed at [facility] Urine specimen (specimen) URINE / Unknown 12/20/2015 2:14 EDT 12/20/2015 2:12 EDT Jayda Pedroza MD POINT OF CARE TEST ORDERABLES Performing Organization Address City/State/[facility] Co de Phone Number [facility] [address] [place] [address] documented in this encounter Visit Diagnoses Diagnosis Kidney stone- Primary Calculus of kidney Kidney stone Calculus of kidney Renal colic Emesis, persistent Persistent vomiting Other hydronephrosis documented in this encounter Administered Medications Inactive Administered Medications - up to 3 most recent administrations Medication Order MAR Action Action Date Dose Rate Site acetaminophen (TYLENOL) tablet 1,000 mg 1,000 mg, oral, EVERY 6 HOURS PRN, Starting on 12/20/15 at 1126, Until Lauryn 12/21/15 at 1938, Pain, Routine Given 12/21/2015 9:34 EDT 1,000 mg Given 12/20/2015 21:26 EDT 1,000 mg Given 12/20/2015 15:31 EDT 1,000 mg acetaminophen (TYLENOL) tablet 1,000 mg 1,000 mg, oral, PRN, 2 doses, Starting on Lauryn 12/21/15 at 1535, Until Lauryn 12/21/15 at 1938, Pain, Fever, Fever especially in neuro patients, Routine, Recovery (only) Given 12/21/2015 16:46 EDT 1,000 mg ciprofloxacin (CIPRO) IVPB 400 mg 400 mg, intravenous, Administer over 60 Minutes, PRE-OP ONCE, 1 dose, On Lauryn 12/21/15 at 1400, Controlled antibiotic: has ID approved? No: Pre-operative surgical prophylaxis, Routine Given 12/21/2015 14:02 EDT 400 mg docusate sodium (COLACE) capsule 100 mg 100 mg, oral, DAILY, First dose on Fri12/20/15 at 1145, Until Discontinued, Routine Given 12/21/2015 9:35 EDT 10 0 mg Given 12/20/2015 11:59 EDT 100 mg HYDROmorphone (DILAUDID) tablet 2 mg 2 mg, oral, NOW X1, 1 dose, On Fri12/20/15 at 0400, STAT Given 12/20/2015 10:55 EDT 2 mg HYDROmorphone (PF) (DILAUDID) 1 mg/mL injection 1 mg 1 mg, intravenous, EVERY 1 HOUR PRN, Starting on Fri12/20/15 at 0118, Until Fri12/20/15 at 1126, Pain, STAT Given 12/20/2015 8:33 EDT 1 mg Given 12/20/2015 6:15 EDT 1 mg Given 12/20/2015 3:53 EDT 1 mg ketOROLAC (TORADOL) injection 15 mg 15 mg, intravenous, NOW X1, 1 dose, On Fri12/20/15 at 0130, STAT Given 12/20/2015 1:35 EDT 15 mg ketOROLAC (TORADOL) injection 15 mg 15 mg, intravenous, NOW X1, 1 dose, On Fri12/20/15 at 0500, STAT Given 12/20/2015 4:54 EDT 15 mg ketOROLAC (TORADOL) injection 15 mg 15 mg, intravenous, EVERY 6 HOURS, 8 doses, First dose on Fri12/20/15 at 1200, Last dose on Fri12/22/15 at 0600, Routine Given 12/21/2015 12:25 EDT 15 mg Given 12/21/2015 6:14 EDT 15 mg Given 12/21/2015 0:56 EDT 15 mg lactated ringers (LR) infusion at 75 mL/hr, intravenous, CONTINUOUS, Starting on Fri12/20/15 at 1330, Until Fri12/21/15 at 1938, Routine Restarted 12/21/2015 10:37 EDT 75 m L/hr New Bag 12/21/2015 2:58 EDT 75 mL/hr Rate Documented 12/20/2015 19:17 EDT 75 mL/hr lactated ringers (LR) infusion at 25 mL/hr, intravenous, CONTINUOUS, Starting on Fri12/21/15 at 1500, Until Fri12/21/15 at 1938, Routine, Pre Op Day of Surgery New Bag 12/21/2015 14:35 EDT 25 mL/hr montelukast (SINGULAIR) tablet 10 mg 10 mg, oral, AT BEDTIME, First dose on Fri12/20/15 at 2100, Until Discontinued, Routine Given 12/20/2015 21:18 EDT 10 mg ondansetron (PF) (ZOFRAN) injection 4 mg 4 mg, intravenous, EVERY 1 HOUR PRN, 3 doses, Starting on Fri12/20/15 at 0448, Until Fri12/20/15 at 1126, Nausea, STAT Given 12/20/2015 4:54 EDT 4 mg oxyCODONE (ROXICODONE) immediate release tablet 5 mg 5 mg, oral, EVERY 4 HOURS PRN, Starting on Fri12/20/15 at 1126, Until Fri12/21/15 at 1938, Pain, Routine Given 12/21/2015 9:36 EDT 5 mg Given 12/20/2015 23:27 EDT 5 mg Given 12/20/2015 18:51 EDT 5 mg oxyCODONE (ROXICODONE) immediate release tablet 5-10 mg 5-10 mg, oral, PRN, 2 doses, Starting on Fri12/21/15 at 1535, Until Fri12/21/15 at 1938, Pain, Routine, Recovery (only) Given 12/21/2015 16:46 EDT 10 mg propranolol (INDERAL) tablet 20 mg 20 mg, oral, DAILY, First dose on Fri12/20/15 at 1145, Until Discontinued, Routine Given 12/21/2015 9:35 EDT 20 mg Given 12/20/2015 11:58 EDT 20 mg spironolactone (ALDACTONE) tablet 50 mg 50 mg, oral, 2 TIMES DAILY, First dose on Fri12/20/15 at 1145, Until Discontinued, Routine Given 12/21/2015 9:35 EDT 50 mg Given 12/20/2015 21:18 EDT 50 mg Given 12/20/2015 11:58 EDT 50 mg tamsulosin (FLOMAX) capsule 0.4 mg 0.4 mg, oral, NOW X1, 1 dose, On Fri12/20/15 at 0415, STAT Given 12/20/2015 4:25 EDT 0.4 mg tamsulosin (FLOMAX) capsule 0.4 mg 0.4 mg, oral, NOW X1, 1 dose, On Fri12/20/15 at 0500, STAT Given 12/20/2015 5:05 EDT 0.4 mg tamsulosin (FLOMAX) capsule 0.4 mg 0.4 mg, oral, DAILY, First dose on Lauryn 12/21/15 at 0900, Until Discontinued, Routine Given 12/21/2015 9:35 EDT 0.4 mg documented in this encounter Discontinued Medications Medication Sig Discontinue Reason Start Date End Da te oxyCODONE-acetaminophen (PERCOCET) 5-325 mg per tablet Take 1 Tab by mouth every 6 hours as needed for Pain. Earliest Fill Date: 12/18/15 Daily Max: 4 Tabs 12/18/2015 12/21/2015 documented as of this encounter Active and Recently Administered Medications Times are shown in EDT. Scheduled Medication Order 12/19/2015 12/20/2015 12/21/2015 ciprofloxacin (CIPRO) IVPB 400 mg (COMPLETED) 400 mg, intravenous, Administer over 60 Minutes, PRE-OP ONCE, 1 dose, On Lauryn 12/21/15 at 1400, Controlled antibiotic: has ID approved? No: Pre-operative surgical prophylaxis, Routine 1402 (Given - Provid er: Shelley Gentile RN) docusate sodium (COLACE) capsule 100 mg (CANCELED) 100 mg, oral, DAILY, First dose on Fri12/20/15 at 1145, Until Discontinued, Routine 1159 (Given - Provider: Giselle Rose RN) 0935 (Given - Provider: Marian Duran) HYDROmorphone (DILAUDID) tablet 2 mg (COMPLETED) 2 mg, oral, NOW X1, 1 dose, On Fri12/20/15 at 0400, STAT 0551 (Not Given - Provider: Tyra Kim RN - Reason: Other - Comment: see other order)1055 (Given - Provider: Rina Fraga RN) ketOROLAC (TORADOL) injection 15 mg (COMPLETED) 15 mg, intravenous, NOW X1, 1 dose, On Fri12/20/15 at 0130, STAT 0135 (Given - Provider: Tyra Kim, STACEY) ketOROLAC (TORADOL) injection 15 mg (COMPLETED) 15 mg, intravenous, NOW X1, 1 dose, On Fri12/20/15 at 0500, STAT 0454 (Given - Provider: Tyra Kim, STACEY) ketOROLAC (TORADOL) injection 15 mg (CANCELED) 15 mg, intravenous, EVERY 6 HOURS, 8 doses, First dose on Fri12/20/15 at 1200, Last dose on Fri12/22/15 at 0600, Routine 1158 (Given - Provider: Giselle Rose RN)1718 (Given - Provider: Marian Duran) 0056 (Given - Provider: Daina Hess RN)0614 (Given - Provider: Daina Hess RN)1225 (Given - Provider: Marian Duran) montelukast (SINGULAIR) tablet 10 mg (CANCELED) 10 mg, oral, AT BEDTIME, First dose on Fri12/20/15 at 2100, Until Discontinued, Routine 2118 (Given - Provider: Daina Hess RN) propranolol (INDERAL) tablet 20 mg (CANCELED) 20 mg, oral, DAILY, First dose on Fri12/20/15 at 1145, Until Discontinued, Routine 1158 (Given - Provider: Giselle Rose RN) 0935 (Given - Provider: Marian A Synnott) spironolactone (ALDACTONE) tablet 50 mg (CANCELED) 50 mg, oral, 2 TIMES DAILY, First dose on Fri12/20/15 at 1145, Until Discontinued, Routine 1158 (Given - Provider: Giselle Rose RN)2118 (Given - Provider: Daina Hess, STACEY) 0935 (Given - Provider: Marian Duran) tamsulosin (FLOMAX) capsule 0.4 mg (COMPLETED) 0.4 mg, oral, NOW X1, 1 dose, On Fri12/20/15 at 0415, STAT 0425 (Given - Provider: Tyra Kim, RN) tamsulosin (FLOMAX) capsule 0.4 mg (COMPLETED) 0.4 mg, oral, NOW X1, 1 dose, On Fri12/20/15 at 0500, STAT 0505 (Given - Provider: Tyra Kim, RN) tamsulosin (FLOMAX) capsule 0.4 mg (CANCELED) 0.4 mg, oral, DAILY, First dose on Lauryn 12/21/15 at 0900, Until Discontinued, Routine 0935 (Given - Provid er: Marian Duran) Continuous Medication Order 12/19/2015 12/20/2015 12/21/2015 lactated ringers (LR) infusion (CANCELED) at 75 mL/hr, intravenous, CONTINUOUS, Starting on Fri12/20/15 at 1330, Until Lauryn 12/21/15 at 1938, Routine 1408 (New Bag - Provider: Giselle Rose RN)1917 (Rate Documented - Provider: Daina Hess, STACEY) 0258 (New Bag - Provider: Daina Hess, STACEY)0937 (IV Stopped - Provider: Marian Duran)1037 (Restarted - Provider: Marian Duran)1433 (Completed - Provider: Shelley Gentile, STACEY) lactated ringers (LR) infusion (CANCELED) at 25 mL/hr, intravenous, CONTINUOUS, Starting on Lauryn 12/21/15 at 1500, Until Lauryn 12/21/15 at 1938, Routine, Pre Op Day of Surgery 1435 (New Bag - Provider: Shelley Gentile, STACEY)1550 (Completed - Provider: Liliana Duran RN) PRN Medication Order 12/19/2015 12/20/2015 12/21/2015 acetaminophen (TYLENOL) tablet 1,000 mg (CANCELED) 1,000 mg, oral, EVERY 6 HOURS PRN, Starting on Fri12/20/15 at 1126, Until Lauryn 12/21/15 at 1938, Pain, Routine 1531 (Given - Provider: Marian Duran)2126 (Given - Provider: Daina Hess RN) 0934 (Given - Provider: Marian Duran) acetaminophen (TYLENOL) tablet 1,000 mg (CANCELED) 1,000 mg, oral, PRN, 2 doses, Starting on Lauryn 12/21/15 at 1535, Until Lauryn 12/21/15 at 1938, Pain, Fever, Fever especially in neuro patients, Routine, Recovery (only) 1646 (Given - Provid er: Liliana Duran RN) HYDROmorphone (PF) (DILAUDID) 1 mg/mL injection 1 mg (CANCELED) 1 mg, intravenous, EVERY 1 HOUR PRN, Starting on Fri12/20/15 at 0118, Until Fri12/20/15 at 1126, Pain, STAT 0135 (Given - Provider: Tyra Kim RN)0226 (Given - Provider: Tyra Kim RN)0353 (Given - Provider: Tyra Kim RN)0615 (Given - Provider: Chaim Villarreal RN)0833 (Given - Provider: Rina Fraga RN) ondansetron (PF) (ZOFRAN) injection 4 mg (CANCELED) 4 mg, intravenous, EVERY 1 HOUR PRN, 3 doses, Starting on Fri12/20/15 at 0448, Until Fri12/20/15 at 1126, Nausea, STAT 0454 (Given - Provider: Tyra Kim RN) oxyCODONE (ROXICODONE) immediate release tablet 5 mg 5 mg, oral, EVERY 4 HOURS PRN, Starting on Fri12/20/15 at 1126, Until Lauryn 12/21/15 at 1938, Pain, Routine 1159 (Given - Provider: Giselle Rose, STACEY)1851 (Given - Provider: Marian Duran)2327 (Given - Provider: Daina Hess, STACEY) 0936 (Given - Provider: Marian Duran) oxyCODONE (ROXICODONE) immediate release tablet 5-10 mg (CANCELED) 5-10 mg, oral, PRN, 2 doses, Starting on Lauryn 12/21/15 at 1535, Until Lauryn 12/21/15 at 1938, Pain, Routine, Recovery (only) 1646 (Given - Provid er: Liliana Duran RN) documented in this encounter Orders Medications Ordered That Jean ht Not Have Been Administered Count Last Ordered Date First Ordered Date atropine 0.1 mg/mL syringe 0.5 mg 1 016 HYDROmorphone (PF) (DILAUDID ) 1 mg/mL injection 0.2-1 mg 1 12/21/2015 lactated ringers (LR) infusion 1 12/21/2015 nalOXone (NARCAN) injection 0.2 mg 1 2015 ondansetron (PF) (ZOFRAN) injection 2-4 mg 1 12/20/2015 Nursing Count Last Ordered Date First Orde red Date PLACE SEQUENTIAL COMPRESSION DEVICE 1 12/20 CONTRAINDICATION TO ANTICOAG ULATION THERAPY 1 12/20/2015 INSERT SALINE LOCK 1 12/20/2015 IV Count Last Ordered Date First Orde red Date IV REQUEST 1 12/20/2015 Admission Count Last Ordered Date First Orde red Date ED BED REQUEST 1 12/20/2015 STATUS: OUTPATIENT OBSERVATION SERVICES 1 0 12/20/2015 Transfer Count Last Ordered Date First Orde red Date NOTIFY PPS PACU PATIENT DISCHARGE 1 016 NOTIFY PPS PATIENT ARRIVAL IN PACU 1 2015 PPS NOTIFICATION OF PATIENT ARRIVAL ON UNIT 2 12/21/2015 12/20/2015 UR PATIENT STATUS CHANGE 1 12/20/2015 Discharge Count Last Ordered Date First Orde red Date DISCHARGE PATIENT 1 12/21/2015 documented in this encounter Care Teams Critical Care Paramedic Relationship Specialty Start Date End Date Amanda Larson MD [address] [place] [address] [place] [address] PCP - General 08/08/15 12/21/15 documented as of this encounter
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
--- OUTSIDE RECORDS SUMMARY | 2024-04-14 20:43 | XMS_ITS | Encounter Summary ---
Author Organization [facility] Address [address] [place] [address] Care Team Providers Care Associate Financial Planner Name Role Phone Rina Agosto MD Primary Care Provider [phone] [phone] Amanda Larson MD Primary Care Provider [phone]- [phone] Reason for Visit * Reason Onset Date Comments Medication Management 08/07/2015 Encounter Details Date Type Department Care Team (Late st Contact Info) Description 08/07/2015 Telephone [facility] Dermatology 3rd Floor [facility] [address] [place], [place] [phone] Rina Albert MD [facility] [place] [address] Medication Management Social History Tobacco Use Types [...] by mouth 2 times daily for 90 days 180 Tab 0 08/07/2015 11/06/2015 documented in this encounter Miscellaneous Notes * Telephone Encounter - Rosario Hernandez RN - 08/08/2015 0932 EST Contacted patient to make her aware that a new prescription for spironolactone 50 mg has been sent to her pharmacy Patient is wondering whether or not she needs to have more blood work done Triage note to Rina Albert MD regarding whether patient will need orders for lab work to be done closer to home. ROSARIO HERNANDEZ RN 08/08/2015 9:33 Per Rina Albert MD she would like patient to have her potassium drawn Contacted patient to make her aware Requisition faxed to [facility] ROSARIO HERNANDEZ RN 08/08/2015 13:42 * Telephone Encounter - Stacey Barakat - 08/07/2015 1251 EST Order pended for Dr. Roosevelt Corona 08/07/2015 12:51 Insole Buffer * Telephone Encounter - Dominik Bryson - 08/07/2015 1244 EST Patient would like to be call once the prescription has been sent. She is also wondering if she needs to have Blood work done. * Telephone Encounter - Dominik Bryson - 08/07/2015 1056 EST Pharmacy called stateing that because patient is on medicaid and the spironolactone is considered amaintenance drug medicaid will only cover three month supplies. Pharmacy is wondering if this is okay. Please call pharmacy. documented in this encounter Plan of Treatment [...] 1 Tab by mouth 2 times daily Reorder 05/30/2015 08/07/2015 documented as of this encounter Care Teams Associate Financial Planner Relationship Specialty Start Date End Date Rina Agosto MD [address] [place] [phone] PCP - General 04/27/14 08/07/15 Amanda Larson MD [address] [place] [phone] PCP - General 08/08/15 12/21/15 documented as of this encounter
--- OUTSIDE RECORDS SUMMARY | 2024-04-14 20:43 | XMS_ITS | Encounter Summary ---
Author Organization [facility] Address [address] [place] [address] Care Team Providers Care Grocery Store Clerk Name Role Phone Amanda Larson MD Primary Care Provider [phone]- [phone] Reason for Visit * Reason Onset Date Comments Medications Refill 11/06/2015 Encounter Details Date Type Department Care Team (Late st Contact Info) Description 11/06/2015 [facility] D[facility] 3rd Floor [facility] [address] [place] [address] Rina Albert MD [address] [place] [address] Medications Refill Social History Tobacco [...] 90 days. 180 Tab 0 11/07/2015 02/05/2016 documented in this encounter Miscellaneous Notes * Telephone Encounter - Lela EuniceleilaniStacey - 11/06/2015 1243 EDT Medication: spironolactone 50 mg Diagnosis: Acne Last Office Visit: 08.28.16 Last Refill: 08.28.16 Next Office Visit: 716 documented in this encounter Plan of Treatment [...] mouth 2 times daily for 90 days Reorder 08/07/2015 11/06/2015 documented as of this encounter Care Teams Grocery Store Clerk Relationship Specialty Start Date End Date Amanda Larson MD [address] [place] [address] [place] [address] PCP - General 08/08/15 12/21/15 documented as of this encounter
--- OUTSIDE RECORDS SUMMARY | 2024-04-14 20:43 | XMS_ITS | Encounter Summary ---
Author Organization [facility] Address [address] [place] [address] Care Team Providers Care Securities Compliance Examiner Name Role Phone Rina Agosto MD Primary Care Provider [phone] [phone] Reason for Visit * Reason Onset Date Comments Prior Auth, Medication 03/15/2015 Azelex cr eam Encounter Details Date Type Department Care Team (Late st Contact Info) Description 03/15/2015 Telephone [facility] Adult Primary Care - [address] [address] Rina Agosto MD [address] [place] [phone] Prior Auth, Medication (Azelex cream) Social History Tobacco Use Types Packs/Day Years [...] encounter Miscellaneous Notes * Telephone Encounter - Keren, Marci Staley - 03/20/2015 1617 EDT Reason for Call: Prior Auth, Medication Summary/Symptoms: Azelex Cream 20 % was approved. Pharmacy was called and they said they had already filled it. Marci Staley Keren 03/20/2015 16:17 * Telephone Encounter - June [place] - 03/15/2015 1331 EDT Reason for Call: Prior Auth, Medication Summary/Symptoms: PA done via Cover My Meds and faxed to [facility] for Azelex cream June Colorado 03/15/2015 13:32 documented in this encounter Plan of Treatment [...] on filedocumented in this encounter Care Teams Securities Compliance Examiner Relationship Specialty Start Date End Date Rian Agosto MD [address] [place] [phone] PCP - General 04/27/14 08/07/15 documented as of this encounter
--- OUTSIDE RECORDS SUMMARY | 2024-04-14 20:43 | XMS_ITS | Encounter Summary ---
Author Organization [facility] Address [address] [place] [address] Care Team Providers Care Dermatology Physician Name Role Phone Rina Agosto MD Primary Care Provider [phone] [phone] Reason for Visit * Reason Comments Initial Visit Here with father of baby (Suzanne) for chat. Encounter Details Date Type Department Care Team (Late st Contact Info) Description 01/03/2015 10:30 EDT Office Visit [facility] Pediatric Primary Care - [address] [address] Lillie Villalpando MD Pediatric pre- visit for expectant parent(s) (Primary Dx) Social History Tobacco Use Types [...] on file documented as of this encounter Patient Instructions * Patient Instructions* Lillie Villalpando MD - 01/03/2015 11:01 EDT [email or web address] documented in this encounter Progress Notes * Lillie Villalpando MD - 01/03/2015 1108 EDT visit with parents - edc - 7/3/15 - only problem Morning sickness early on, hist of depression, no meds in years, wants to wait until after deliv to start rx using maddie and plan to deliver there [place] [facility] - who lives [place] - mom - Gladys Quintanilla, 24, 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?PGA with [facility] Nursing, [facility] - aim to return toschool in a year dad - Claudio Lopez, 21, works [employer], here in [facility] Aim no day care, but different shifts once mother ready to work again half bro on father's side - Arley Garcia, 21 months - half time with them, Family med history reviewed with questionnaire - Reviewed office, hours, visits, etc - Answered a few baby care questions and web references given - Parents ready for new child - Lillie Villalpando MD [facility] documented in this encounter Plan of Treatment Not on file documented as of this encounter Goals Goal Patient Goal Type Associated Problems Recent Progress Patient-Stated? Author Blood Pressure < 130/80 Blood Pressure 118/78(2017 16:01 EDT) No Rina Agosto MD Weight Loss General Yes Rina Agosto MD Note: Goal = 145lbs documented as of this encounter Visit Diagnoses Diagnosis Pediatric pre- visit for expectant parent(s)- Primary documented in this encounter Care Teams Dermatology Physician Relationship Specialty Start Date End Date Rina Agosto MD [address] [place] [phone] PCP - General 04/27/14 08/07/15 documented as of this encounter
--- OUTSIDE RECORDS SUMMARY | 2024-04-14 20:44 | XMS_ITS | Encounter Summary ---
Author Organization [facility] Address [address] [place] [address] Care Team Providers Care Commercial Art Instructor Name Role Phone Rina Agosto MD Primary Care Provider [phone] [phone] Encounter Details Date Type Department Care Team (Late st Contact Info) Description 08/01/2014 19:09 EST - 08/01/2014 19:11 [facility] Hospital Encounter [place] - [address] [address] Caron Guardado APRN [facility] [address] [facility], [facility] [address] [place] [phone] Discharge Disposition: Home or Self Care Social [...] on file documented as of this encounter Discharge Diagnoses Diagnosis V22.0 SUPERVIS NORMAL 1ST PREG[ICD-9-CM] documented in this encounter Medications at Time of Discharge Medication Sig Dispensed Refills Start Date End Date acetaminophen (TYLENOL) 325 mg tablet Take 325 mg by mouth every 6 hours. Reported on 12/20/2016 02/22/2017 albuterol (VENTOLIN HFA) 90 mcg/actuation inhaler Inhale 2 Puffs as directed every 4 hours as needed for Wheezing. 11/10/2014 promethazine (PHENERGAN) 12.5 mg tablet Take 1 Tab by mouth every 6 hours as needed for Nausea. 60 Tab 1 07/18/2014 08/17/2014 documented as of this encounter Discharge Disposition [...] filedocumented in this encounter Care Teams Commercial Art Instructor Relationship Specialty Start Date End Date Rina Agosto MD [address] [place] [phone] PCP - General 04/27/14 08/07/15 documented as of this encounter
--- OUTSIDE RECORDS SUMMARY | 2024-04-14 20:44 | XMS_ITS | Encounter Summary ---
Author Organization [facility] Address [address] [place] [address] Care Team Providers Care Radiation Engineer Name Role Phone iRna Agosto MD Primary Care Provider [phone] [phone] Encounter Details Date Type Department Care Team (Late st Contact Info) Description 08/05/2014 Phlebotomy Only [facility] [address] [place] [address] Broaching Machine Repairer, Outpatient Social History Tobacco Use Types Packs/Day [...] on filedocumented in this encounter Care Teams Radiation Engineer Relationship Specialty Start Date End Date Rina Agosto MD [address] [place] [phone] PCP - General 04/27/14 08/07/15 documented as of this encounter
--- OUTSIDE RECORDS SUMMARY | 2024-04-14 20:44 | XMS_ITS | Encounter Summary ---
Author Organization [facility] Address [address] [place] [address] Care Team Providers Care Glass Beveller Name Role Phone Rina Agosto MD Primary Care Provider [phone] [phone] Reason for Visit * Reason Onset Date Comments Abdominal Pain 05/12/2014 Encounter Details Date Type Department Care Team (Late st Contact Info) Description 05/12/2014 Telephone [facility] Adult Primary Care - [address] [address] Rina Agosto MD [address] [place] [phone] Abdominal Pain Social History Tobacco Use Types Packs/Day Years Used Date Smoking Tobacco: Former Cigarettes Smokeless Tobacco: Never Alcohol Use Standard Drinks/Week Comments Yes 0 (1 standard drink = 0.6 oz pur e alcohol) rare Sex and Gender Information Value Date Recorded Sex Assigned at Not on file Gender Identity Not on file Sexual Orientation Not on file documented as of this encounter Miscellaneous Notes * Telephone Encounter - Drea Bautista RN - 05/13/2014 1021 EDT Outgoing call to Gladys. She states that she has a little pain and she will continue to use Tylenol and Ibuprofen over the weekend. She will call with an update on Friday if needed. * Telephone Encounter - Gerald Welch III - 05/12/2014 1618 EDT Patient returning nurse call. * Telephone Encounter - Drea Bautista RN - 05/12/2014 1508 EDT Left detailed message on pt's home phone with Dr. An's advice. To call back if necessary. * Telephone Encounter - Mary An MD - 05/12/2014 1319 EDT Chart and notes reviewed. I do not feel comfortable prescribing narcotics without a clear diagnosisat this time. They ruled out in the ER the other day but did not do any imaging. This could be a ruptured ovarian cyst, appendicitis OR endometriosis. Without knowing her or what her pain is due to, I do not want to rx narcotics. I would have her go back to ER for further workup/imaging and ?emergent head waiter/waitress banquet eval if they feel this is necessary. * Telephone Encounter - Drea Bautista RN - 05/12/2014 1253 EDT Outgoing call to Gladys- she continues to have lower abdominal pain. States pain level is right up there and it is on her right side and in the center. Has had similar pian a year ago when she had endometriosis. Is taking Tylenol 1000 mg TID and Ibuprofen 800 mg alternating TID with little pain relief. Has taking both Vicodin and Percocet in the past. She is requesting a stronger pain medication. Has an allergy to Tramadol- became very ill with 1/2 tablet-nausea,vomiting and dizziness. Has appt with Keg Varnisher-Dr. Modi on June 02. She has been put on the cancellation list. Note to Dr. An. * Telephone Encounter - Marci Veliz - 05/12/2014 1012 EDT Reason for Call: Abdominal Pain Summary/Symptoms: Patient was seen by Dr. Agosto on 05/09 and was sent to the ER. They said it was menstral pains but patient knows it is not. She has had endometriosis before and the pain is similar tothat. The pain subsided yesterday but she was taking tylenol all day. Last night it was very bad and she took tylenol 1000 mg with Ibuprofen 800 mg and it didn't even help the pain. She had a heatingpad on all night. Marci Veliz 05/12/2014 10:12 documented in this encounter Plan of Treatment Not on file documented as of this encounter Visit Diagnoses Not on filedocumented in this encounter Care Teams Glass Beveller Relationship Specialty Start Date End Date Rina Agosto MD [address] [place] [phone] PCP - General 04/27/14 08/07/15 documented as of this encounter
--- OUTSIDE RECORDS SUMMARY | 2024-04-14 20:44 | XMS_ITS | Encounter Summary ---
Author Organization [facility] Address [address] [place] [address] Care Team Providers Care Timber Management Professor Name Role Phone Rina Agosto MD Primary Care Provider [phone] [phone] Reason for Visit * Reason Onset Date Comments Medications Refill 07/18/2014 Encounter Details Date Type Department Care Team (Late st Contact Info) Description 07/18/2014 Refill [facility] OBGYN Services - [facility] [address] [place], [place] [phone] Latisha Draper, RN Medications Refill Social History Tobacco Use [...] Dispensed Refills Start Date End Da te promethazine (PHENERGAN) 12.5 mg tablet Take 1 Tab by mouth every 6 hours as needed for Nausea. 60 Tab 1 07/18/2014 08/17/2014 documented in this encounter Miscellaneous Notes * Telephone Encounter - Latisha Draper RN - 07/18/2014 1807 EST TC from Gladys at 10+3 weeks asking for refill of promethazine 12.5 mgs. Is mostly taking just inmorning and at night. Rx refilled. documented in this encounter Plan of Treatment [...] Discontinue Reason Start Date End Da te promethazine (PHENERGAN) 12.5 mg tablet Take 1 Tab by mouth every 6 hours as needed for Nausea. Reorder 06/26/2014 07/18/2014 documented as of this encounter Care Teams Timber Management Professor Relationship Specialty Start Date End Date Rina Agosto MD [address] [place] [phone] PCP - General 04/27/14 08/07/15 documented as of this encounter
--- OUTSIDE RECORDS SUMMARY | 2024-04-14 20:44 | XMS_ITS | Encounter Summary ---
Author Organization [facility] Address [address] [place] [address] Care Team Providers Care Photolithographic Stripper Name Role Phone Rina Agosto MD Primary Care Provider [phone] Reason for Visit * Reason Onset Date Comments Neck Pain 09/19/2014 Encounter Details Date Type Department Care Team (Late st Contact Info) Description 09/19/2014 Telephone [facility] Adult Primary Care - [address] [address] Rina Agosto MD [address] [place] [phone] Neck Pain Social History Tobacco Use Types [...] encounter Miscellaneous Notes * Telephone Encounter - Rina Agosto MD - 09/21/2014 1655 EST Agree with holding on flexeril without OB approval. Would continue with tylenol and consult OBGyn for further recommendations re: pain. Thanks * Telephone Encounter - Katia Ramey RN - 09/19/2014 1424 EST Outgoing call to Gladys: States that she is 19 weeks . Has had neck pain for the last 2 days and Tylenol is not really helping. Has tried warm compresses as well. Dr. Agosto had prescribed Flexeril in the past when she was having back spasms and before she was and wondering if it would be OK to take. Told that studies have not been adequately done regarding the safety of taking with , but would refer to Dr. Agosto. Also recommended that she contact [facility] for recommendations on what she could use for pain management during her * Telephone Encounter - Elisa Green - 09/19/2014 1877 EST Reason for Call: Neck Pain Summary/Symptoms: Patient has been having neck pain for the last 2 days. She's and has been taking tylenol taking 1 500 mg every 8 hrs. Been putting hot compress on her neck to relief pain. She's asking if she can take Flexeril 5 mg. Please call back to advise. Onset and Duration? now Appointment Offered? Kaylee Green 09/19/2014 13:37 documented in this encounter Plan of Treatment [...] on filedocumented in this encounter Care Teams Photolithographic Stripper Relationship Specialty Start Date End Date Rina Agosto MD [address] [place] [phone] PCP - General 04/27/14 08/07/15 documented as of this encounter
--- OUTSIDE RECORDS SUMMARY | 2024-04-14 20:44 | XMS_ITS | Encounter Summary ---
Author Organization [facility] Address [address] [place] [address] Care Team Providers Care Head Machine Feeder Name Role Phone Rina Agosto MD Primary Care Provider [phone] [phone] Reason for Visit * Reason Comments Sore Throat x 3 days, fever, swo llen lymph nodes Encounter Details Date Type Department Care Team (Late st Contact Info) Description 07/01/2014 13:45 EST Office Visit [facility] Adult Primary Care - [address] [phone] Cristina Rivera, DRUGLESS DOCTOR [address] [facility] [address] [place] [address] Pharyngitis (Primary Dx) Social History Tobacco Use Types [...] Sign Reading Time Taken Comments Blood Pressure 114/70 07/01/2014 1355 EST Pulse 80 07/01/2014 1355 EST Temperature 36.7 ??C (98 ??F) 07/01/2014 1355 EST Respiratory Rate 18 07/01/2014 1355 EST Oxygen Saturation - - Inhaled Oxygen Concentration - - Weight 85.7 kg (189 lb) 07/01/2014 1355 EST Height 162.6 cm (5' 4) 07/01/2014 1355 EST Body Mass Index 32.44 07/01/2014 1355 EST documented in this encounter Patient Instructions * Patient Instructions* Cristina Rivera - 07/01/2014 14:16 EST Tylenol as needed for pain. Cepacol spray for sore throat. Warm salt water gargles, lots of steam, push fluids. Saline nasal spray - use frequently to prevent nose bleeds and help sinus drainage. Come back in if fever persists - keep track of your temperature, call us if it is above 101. documented in this encounter Progress Notes * Cristina Rivera - 07/01/2014 1406 EST CHIEF COMPLAINT: Sore Throat Current Outpatient Prescriptions Medication Sig ??? acetaminophen (TYLENOL) 325 mg tablet Take 325 mg by mouth every 6 hours. ??? albuterol (VENTOLIN HFA) 90 mcg/actuation inhaler Inhale 2 Puffs as directed every 4 hours as needed for Wheezing. ??? amoxicillin-clavulanate (AUGMENTIN) 875-125 mg per tablet Take 1 Tab by mouth 2 times daily. ??? ibuprofen (MOTRIN) 200 mg tablet Take 200 mg by mouth every 6 hours. ??? letrozole (FEMARA) 2.5 mg tablet Take 1 Tab by mouth daily. ??? MONTELUKAST SODIUM (SINGULAIR ORAL) Take by mouth. ??? ondansetron (ZOFRAN-ODT) 4 mg disintegrating tablet Take 1 Tab by mouth every 8 hours as neededfor Nausea. ??? promethazine (PHENERGAN) 12.5 mg tablet Take 1 Tab by mouth every 6 hours as needed for Nausea. Allergies Allergen Reactions ??? Tramadol Nausea Only Dizziness SUBJECTIVE: Gladys is here today for a sore throat. She has had a sore throat with mild fever since Friday - no other symptoms. Has felt feverish at night - has not taken temperature at home. Tookat work last night, was 100.1. She has had increased nosebleeds since she got . Denies ear pain, sinus congestion, but does report that she felt like she had some sinus congestion earlier this week. Her boyfriend is with her today, and he reports that he had strep, but about a month ago. His son currently has a sinus cold and ear infection. She is currently 8 weeks . found on ultrasound exam for endometriosis. Has intakevisit with instrument calibrator 07/21. Hard to determine appetite as she is dealing with nausea and has not been interesting in eating for a few weeks. OBJECTIVE: BP 114/70 Pulse 80 Temp(Src) 36.7 ??C (98 ??F) (Tympanic) Resp 18 Ht 162.6 cm (64) Wt 85.73 kg (189 lb) BMI 32.43 kg/m2 LMP 05/08/2014 Physical Examination: General appearance - alert, well appearing, and in no distress and acyanotic,in no respiratory distress Eyes - pupils equal and reactive, extraocular eye movements intact Ears - bilateral TM's and external ear canals normal, slight bulging of TM bilaterally without edema or erythema Nose - mucosal congestion, mucosal erythema, purulent rhinorrhea, sinuses normal and nontender and evidence of old blood Mouth - tonsils enlarged without significant erythema. Right tonsil > left Pharynx moist withouterythema patient declines strep culture Neck - adenopathy noted right anterior cervical Lymphatics - moderate tender anterior cervical nodes Chest - clear to auscultation, no wheezes, rales or rhonchi, symmetric air entry Heart - normal rate, regular rhythm, normal S1, S2, no murmurs, rubs, clicks or gallops PROBLEM: pharyngitis Assessment: Likely viral URI with sinusitis Plan: Advised to monitor temperature over the weekend and return if it persists or goes above 101. Given , threshold for treating strep is obviously low, but clinical evidence does not fully support dx strep at this time. Gladys was seen today for sore throat. Diagnoses and associated orders for this visit: Pharyngitis - Cancel: POCT Rapid Strep Screen - Cancel: Pharyngitis Culture Patient Education Provided: on the various medical issues listed above Method: Verbal, with specific instructions documented on the after-visit summary. Taught to: Patient Barriers: None. The patient's understanding of the current medical regimen was reviewed at today's visit. The patient demonstrates adequate understanding. The patient's consistency in taking the medications as prescribed was also reviewed at today's visit. The patient reportstaking the medications as prescribed. If medicines are not being taken as prescribed, the reasons for this change are documented above. Outcomes: verbalized understanding Patient Education Provided: Tylenol as needed for pain. Cepacol spray for sore throat. Warm salt water gargles, lots of steam, push fluids. Saline nasal spray - use frequently to prevent nose bleeds and help sinus drainage. Come back in if fever persists - keep track of your temperature, call us if it is above 101. Other Background Data: Patient Active Problem List Diagnosis Date Noted ??? ACL injury tear 06/03/2014 ??? Acute meniscal tear of knee 06/03/2014 ??? Depression 06/03/2014 Was on seroquel for depression but caused memory loss ??? Abnormal Pap smear of cervix 06/03/2014 S/p colposcopy ??? Endometriosis 05/09/2014 S/p laparoscopy 2012 Past Medical History Diagnosis Date ??? Asthma ??? Endometriosis ??? Environmental allergies ??? Depression History reviewed. No pertinent past surgical history. Family History Problem Relation Age of Onset ??? Heart Disease Maternal Uncle ??? High Cholesterol Maternal Uncle ??? Heart Disease Maternal Grandmother ??? Heart Disease Maternal Grandfather History Substance Use Topics ??? Smoking status: Former Smoker -- 0.25 packs/day Quit date: 01/01/2014 ??? Smokeless tobacco: Never Used ??? Alcohol Use: Yes Comment: rare, once a month documented in this encounter Plan of Treatment Not on file documented as of this encounter Goals Goal Patient Goal Type Associated Problems Recent Progress Patient-Stated? Author Blood Pressure < 130/80 Blood Pressure 118/78(2017 16:01 EDT) No Rina Agosto MD Weight Loss General Yes Rina Agosto MD Note: Goal = 145lbs documented as of this encounter Visit Diagnoses Diagnosis Pharyngitis- Primary Acute pharyngitis documented in this encounter Discontinued Medications Medication Sig Discontinue Reason Start Date End Da te norethindrone (AYGESTIN) 5 mg tabletIndications:End ometriosis, site unspecified Take 1 Tab by mouth daily. Patient Stopped Taking 06/02/2014 07/01/2014 cyclobenzaprine (FLEXERIL) 5 mg tablet Take 1-2 Tabs by mouth every 8 hours as needed for Muscle Spasms. Patient Stopped Taking 06/03/2014 07/01/2014 MINOCYCLINE HCL (MINOCYCLINE ORAL) Take 100 mg by mouth . Patient Stopped Taking 07/01/2014 promethazine (PHENERGAN) [address] 1 Suppository rectally every 6 hours as needed for Nausea. Duplicate Therapy 06/27/2014 07/01/2014 documented as of this encounter Care Teams Head Machine Feeder Relationship Specialty Start Date End Date Rina Agosto MD [address] [place] [phone] PCP - General 04/27/14 08/07/15 documented as of this encounter
--- OUTSIDE RECORDS SUMMARY | 2024-04-14 20:44 | XMS_ITS | Encounter Summary ---
Author Organization [facility] Address [address] [place] [address] Care Team Providers Care Associate Programmer Name Role Phone Rina Agosto MD Primary Care Provider [phone] [phone] Reason for Visit * Reason Onset Date Comments Other 08/08/2014 Encounter Details Date Type Department Care Team (Late st Contact Info) Description 08/08/2014 Telephone [facility] OBGYN Services - [address] [phone] Genia Peters, [place] CNM [address] [facility] [place] [phone] Other Social History Tobacco Use [...] Telephone Encounter - Genia Peters CNM - 08/08/2014 2844 EST Thinks she heard a second heartbeat with her home doppler. Reassured that ultrasound showed single fetus. documented in this encounter Plan of Treatment [...] filedocumented in this encounter Care Teams Associate Programmer Relationship Specialty Start Date End Date Rina Agosto MD [address] [place] [phone] PCP - General 04/27/14 08/07/15 documented as of this encounter
--- OUTSIDE RECORDS SUMMARY | 2024-04-14 20:44 | XMS_ITS | Encounter Summary ---
Author Organization [facility] Address [address] [place] [address] Care Team Providers Care Photo Producer Name Role Phone Rina Agosto MD Primary Care Provider [phone] [phone] Encounter Details Date Type Department Care Team (Late st Contact Info) Description 09/28/2014 Documentation Visit [facility] OBGYN Services - [facility] [address] [place], [place] [phone] Latisha Draper, RN Social History Tobacco Use Types Packs/Day [...] on file documented as of this encounter Progress Notes * Latisha Draper RN - 09/28/2014 1251 EST All records faxed to [facility] per patient's request for AURELIA to them. documented in this encounter Plan of Treatment [...] on filedocumented in this encounter Care Teams Photo Producer Relationship Specialty Start Date End Date Rina Agosto MD [address] [place] [phone] PCP - General 04/27/14 08/07/15 documented as of this encounter
--- OUTSIDE RECORDS SUMMARY | 2024-04-14 20:44 | XMS_ITS | Encounter Summary ---
Author Organization [facility] Address [address] [place] [address] Care Team Providers Care Hand Cooper Helper Name Role Phone Rina Agosto MD Primary Care Provider [phone] [phone] Encounter Details Date Type Department Care Team (Late st Contact Info) Description 07/20/2014 Phlebotomy Only [facility] [address] [place] [address] Ocean Import Representative, Outpatient Supervision of normal first ; Obesity, Class I, BMI 30.0-34.9 (see actual BMI) Social History Tobacco Use Types Packs/Day Years [...] Procedure Name Priority Date/Time Associated Diagnosis Comments PROFILE AND VARICELLA Routine 07/20/2014 11:38 EST Supervision of normal first HIV 1/2 ANTIGEN AND ANTIBODY, 4TH GENERATION Routine 07/20/2014 11:38 EST Supervision of normal first HEMOGLOBIN A1C Routine 07/20/2014 11:38 EST Supervision of normal first Obesity, Class I, BMI 30.0-34.9 (see actual BMI) documented in this encounter Results * HEMOGLOBIN A1C (07/20/2014 11:38 EST) Hemoglobin A1C 4.7 % 07/20/2014 15:01 [facility] Comment: Shortened red blood cell survival will decrease Hemoglobin A1C values. Reference Range: <5.7% Normal 5.7-6.4% Increased risk for diabetes =>6.5% Diagnostic for diabetes (if confirmed) The A1c goal for non adults in general is <7%. The A1c goal for selected patients may be significantly lower than 7% if this can be achieved without significant hypoglycemia or other adverse effects of treatment. Est Avg Glucose 88 mg/dl 4 15:01 [facility] Comment: eAG represents the A1c result expressed as average glucose in mg/dl. Blood specimen (specimen) BLOOD SPECIMEN / Unknown 07/20/2014 11:38 EST 07/20/2014 12:04 EST Earl Guadarrama NP, CNM CHEMISTRY & BLOOD GAS ORDERABLES [facility] [address] [place] [address] * (ABNORMAL) PROFILE AND VARICELLA (07/20/2014 11:38 EST) ABO and Rh Type O POS 4 13:21 [facility] Antibody Screen Neg 4 13:21 [facility] Rubella IgG Ab Positive 07/20/2014 14:15 [facility] Comment: Positive results suggest immunity to Rubella infection. WBC 10.23 4.0 - 12.4 K/cmm 07/20/2014 12:20 [facility] RBC 4.46 3.86 - 5.04 M/cmm 07/20/2014 12:20 [facility] Hemoglobin 13.0 11.6 - 15.2 gm/dl 07/20/2014 12:20 [facility] HCT 36.2 34.9 - 44.4 % 07/20/2014 12:20 [facility] MCV 81 81 - 98 fl 07/20/2014 12:20 [facility] MCH 29.1 26.7 - 33.3 pg 07/20/2014 12:20 [facility] MCHC 35.8 32.1 - 35.9 gm/dl 07/20/2014 12:20 [facility] PLT 240 141 - 320 K/cmm 07/20/2014 12:20 [facility] RDW-CV 12.8 11.7 - 14.6 % 07/20/2014 12:20 [facility] Hepatitis B Surface Ag Negative 07/20/2014 14:15 [facility] Comment:Reference Range: Neg ative % Neutrophils 76.5 45.5 - 79.7 % 07/20/2014 12:20 [facility] % Lymphocytes 16.6 15.0 - 46.8 % 07/20/2014 12:20 [facility] % Monocytes 6.0 1.8 - 12.0 % 07/20/2014 12:20 [facility] % Eosinophils 0.5(L) 0.6 - 6.9 % 07/20/2014 12:20 [facility] % Basophils 0.4 0.2 - 1.4 % 07/20/2014 12:20 [facility] ABS Neutrophils 7.84 2.20 - 8.85 K/cmm 07/20/2014 12:20 [facility] ABS Lymphs 1.69 1.09 - 3.30 K/cmm 07/20/2014 12:20 [facility] ABS Monocytes 0.61 0.1 - 0.8 K/cmm 07/20/2014 12:20 [facility] ABS Eosinophils 0.05 0.03 - 0.61 K/cmm 07/20/2014 12:20 [facility] ABS Basophils 0.04 0.01 - 0.11 K/cmm 07/20/2014 12:20 [facility] Type of Diff: Automated 07/20/2014 12:20 [facility] Syphilis Serology Interpretation: Nonreactive 07/21/2014 12:56 [facility] Comment:Reference Range: Non reactive Varicella IgG Ab Interpretation: Positive 07/21/2014 12:56 [facility] Comment: Presence of detectable Varicella Zoster virus IgG antibodies. Blood specimen (specimen) BLOOD SPECIMEN / Unknown 07/20/2014 11:38 EST 07/20/2014 12:04 EST Earl YANG PACKAGES & DNA PROBE ORDERABLES Performing Organization Address [facility] Co de Phone Number [facility] [address] [place] [address] * HIV 1/2 ANTIBODY (07/20/2014 11:38 EST) HIV 1/2 Antibody Negative 07/20/20 14 14:15 [facility] Comment: If acute HIV-1 infection is suspected in a high risk patient, submit plasma specimen for HIV-1 RNA quantification test. Reference Range: ??Negative Assayed utilizing [employer] chemiluminescent technology. Blood specimen (specimen) BLOOD SPECIMEN / Unknown 07/20/2014 11:38 EST 07/20/2014 12:04 EST Earl YANG IMMUNOLOGY AND SEROLOGY ORDERABLES Performing Organization Address [facility] Co de Phone Number [facility] [address] [place] [address] documented in this encounter Visit Diagnoses Diagnosis Supervision of normal first Obesity, Class I, BMI 30.0-34.9 (see actual BMI) Obesity, unspecified documented in this encounter Care Teams Hand Cooper Helper Relationship Specialty Start Date End Date Rina Agosto MD [address] [place] [phone] PCP - General 04/27/14 08/07/15 documented as of this encounter
--- OUTSIDE RECORDS SUMMARY | 2024-04-14 20:44 | XMS_ITS | Encounter Summary ---
Author Organization [facility] Address [address] [place] [address] Care Team Providers Care Community Pharmacist Name Role Phone Rina Agosto MD Primary Care Provider [phone] Reason for Referral * FOOD SERVICE COORDINATOR (Routine) - Closed Specialty Diagnoses / Procedures Referred By Gregory velez Referred To Contact Diagnoses Early stage of Procedures SCHOOL OPERATIONS MANAGER US OB FIRST TRIMESTER TRANSVAGINAL Rina Boogie MD [address] [facility] [address] [place] [address] Referral ID Status Reason Start Date Expiration Date Visits Re quested Visits Authorized [id number] Closed 06/15/2014 1 1 Reason for Visit * Reason Onset Date Comments Results 06/06/2014 Encounter Details Date Type Department Care Team (Late st Contact Info) Description 06/06/2014 Telephone [facility] - [address] [address] Emilie Barker, STACEY Results Social History Tobacco Use Types Packs/Day Years Used Date Smoking Tobacco: Former Cigarettes Q uit: 01/01/2014 Smokeless Tobacco: Never Alcohol Use Standard Drinks/Week Comments Yes 0 (1 standard drink = 0.6 oz pur e alcohol) rare, once a month Sex and Gender Information Value Date Recorded Sex Assigned at Not on file Gender Identity Not on file Sexual Orientation Not on file documented as of this encounter Miscellaneous Notes * Addendum Note - Luh bAel RN - 06/15/2014 1544 ESTAddended by: LUH ABEL on: 06/15/2014 15:44 Modules accepted: Orders * Telephone Encounter - Emilie Barker RN - 06/06/2014 1312 EDT Placed phone call to Gladys to inform of beta hcg results. Drawn today and resulted at 997. Patient is aware that she will need to have second lab draw in 48 hours (Friday). Explained importanceof appropriately rising betas. Unsure of LMP- either 04/14 or 05/08. Wondering if she can start on PNV. Appropriate to do so at this time. She will pick up attendant OTC for now. No further questions. Has SCHOOL OPERATIONS MANAGER triage phone # to call for concerns or questions. Patient had stopped by the office today around 11:45 with partner with questions. Given ectopic precautions at that time. documented in this encounter Plan of [...] Procedure Name Priority Date/Time Associated Diagnosis Comments SCHOOL OPERATIONS MANAGER US OB FIRST TRIMESTER TRANSVAGINAL Routine 06/29/2014 9:41 EST Early stage of documented in this encounter Results * SCHOOL OPERATIONS MANAGER US OB FIRST TRIMESTER TRANSVAGINAL (06/29/2014 9:41 EST) Anatomical Region Laterality Modality Other 06/29/2014 9:41 EST 06/29/2014 9:53 EST Narrative 06/29/2014 9:53 EST Number of fetuses: 1. Dating ======= LMP on: ?05/08/2014 GA by LMP ??7 w + 3 d AMA by LMP : ? 02/12/2015 Ultrasound examination on: 06/29/2014 GA by U/S based upon: ??CRL GA by U/S ??7 w + 5 d AMA by U/S: ?02/10/2015 Assessment Gestational sac: ?? visualized Location: ??intrauterine Yolk sac: ??visualized YS mean ?3.4 mm Embryo: ?visualized CRL ?14.1 mm 7w 5d Hadlock Cardiac activity: ??present FHR ?160 bpm Maternal Structures Ovaries / Tubes / Adnexa Rt ovary: ??Normal with Corpus lutuel cyst Rt ovary D1 ?2.9 cm Rt ovary D2 ?2.6 cm Rt ovary D3 ?3.0 cm Rt ovary mean ??2.8 cm Rt ovary Vol. ??11.7 cm Lt ovary: ??appears normal Lt ovary D1 ?2.1 cm Lt ovary D2 ?1.4 cm Lt ovary D3 ?1.3 cm Lt ovary mean ??1.6 cm Lt ovary Vol. ??2.0 cm Pouch of Reece / Other Structures Cul de Sac: ?Normal Free fluid: ?No free fluid visualized Method ======== Transvaginal ultrasound examination. Impression OB transvaginal [id number] Transvaginal sonography shows a normal appearing first trimester with biometry consistent with LMP dating. Procedure Note 06/29/2014 Number of fetuses: 1. Dating ======= LMP on: 05/08/2014 GA by LMP 7 w + 3 d AMA by LMP : 02/12/2015 Ultrasound examination on: 06/29/2014 GA by U/S based upon: CRL GA by U/S 7 w + 5 d AMA by U/S: 02/10/2015 Assessment Gestational sac: visualized Location: intrauterine Yolk sac: visualized YS mean 3.4 mm Embryo: visualized CRL 14.1 mm 7w 5d Hadlock Cardiac activity: present FHR 160 bpm Maternal Structures Ovaries / Tubes / Adnexa Rt ovary: Normal with Corpus lutuel cyst Rt ovary D1 2.9 cm Rt ovary D2 2.6 cm Rt ovary D3 3.0 cm Rt ovary mean 2.8 cm Rt ovary Vol. 11.7 cm Lt ovary: appears normal Lt ovary D1 2.1 cm Lt ovary D2 1.4 cm Lt ovary D3 1.3 cm Lt ovary mean 1.6 cm Lt ovary Vol. 2.0 cm Pouch of Reece / Other Structures Cul de Sac: Normal Free fluid: No free fluid visualized Method ======== Transvaginal ultrasound examination. Impression OB transvaginal [id number] Transvaginal sonography shows a normal appearing first trimester with biometry consistent with LMP dating. Rina Boogie MD IMG US SCHOOL OPERATIONS MANAGER ORDERABL ES documented in this encounter Visit Diagnoses Diagnosis Early stage of - Primary state, incidental documented in this encounter Care Teams Community Pharmacist Relationship Specialty Start Date End Date Rina Agosto MD [address] [place] [phone] PCP - General 04/27/14 08/07/15 documented as of this encounter
--- OUTSIDE RECORDS SUMMARY | 2024-04-14 20:44 | XMS_ITS | Encounter Summary ---
Author Organization [facility] Address [address] [place] [address] Care Team Providers Care Ext Js Developer Name Role Phone Rina Agosto MD Primary Care Provider [phone] Encounter Details Date Type Department Care Team (Late st Contact Info) Description 06/06/2014 Phlebotomy Only [facility] [address] [place] [address] Cafe Assistant, Outpatient examination or test, positive result Social History Tobacco Use Types Packs/Day Years [...] Associated Diagnosis Comments QUANT BETA HCG, Routine 06/06/2014 10:53 EDT examination or test, positive result documented in this encounter Results * (ABNORMAL) HCG FOR (06/06/2014 10:53 EDT) Quant Beta HCG, Preg 997(H) <5 mIU/ml [facility] Comment: Reference Range: Negative = <5 Indeterminate = 5-25 recommend repeat in 48 hours. Positive = >25 Blood specimen (specimen) 06/06/2014 10:53 EDT 06/06/2014 11:16 EDT Anamaria Modi MD CHEMISTRY & BLOOD GA S ORDERABLES [facility] [address] [place] [address] documented in this encounter Visit Diagnoses Diagnosis examination or test, positive result documented in this encounter Care Teams Ext Js Developer Relationship Specialty Start Date End Date Rina Agosot MD [address] [place] [phone] PCP - General 04/27/14 08/07/15 documented as of this encounter
--- OUTSIDE RECORDS SUMMARY | 2024-04-14 20:44 | XMS_ITS | Encounter Summary ---
Author Organization [facility] Address [address] [place] [address] Care Team Providers Care Resident Care Associate Name Role Phone Rina Agotso MD Primary Care Provider [phone] Reason for Visit * Reason Comments Diarrhea x 4 days, cramps whe n urge to defecate Encounter Details Date Type Department Care Team (Late st Contact Info) Description 07/26/2014 14:30 EST Office Visit [facility] - [address] [phone] Cristina Rivera, LABORER [employer] [address] [facility] [address] [place] [address] Diarrhea (Primary Dx) Discharge Disposition: Auto Discharge Social [...] Sign Reading Time Taken Comments Blood Pressure 100/70 07/26/2014 1437 EST Pulse 88 07/26/2014 1437 EST Temperature 36.3 ??C (97.4 ??F) 07/26/2014 1437 EST Respiratory Rate 18 07/26/2014 1437 EST Oxygen Saturation - - Inhaled Oxygen Concentration - - Weight 86.2 kg (190 lb) 07/26/2014 1437 EST Height 162.6 cm (5' 4) 07/26/2014 1437 EST Body Mass Index 32.61 07/26/2014 1437 EST documented in this encounter Discharge Diagnoses Diagnosis 787.91 DIARRHEA NOS[ICD-9-CM] documented in this encounter Discharge Disposition Disposition Code Departure Means Destination Auto Discharge documented in this encounter Progress Notes * Cristina Rivera - 07/26/2014 1508 EST CHIEF COMPLAINT: Diarrhea Current Outpatient Prescriptions Medication Sig ??? acetaminophen [...] ??? Tramadol Nausea Only Dizziness SUBJECTIVE: Gladys has been experiencing diarrhea and cramping since last Friday. She had a largebowel movement on Friday and things improved somewhat, but she started having diarrhea and crampingagain last night. Reports that diarrhea is not really watery, just very soft and normal color. Admits she has a long history of hemorrhoids that are irritated with the frequent stooling, but denies seeing any blood. She states that she feels like she has to pass a very large bowel movement. She reports that she has changed her diet quite a bit recently - increasing fruits, trying to cut out junk food, generally eating more healthy foods. Stays well hydrated. Had first visit last week - estimate is that she is 12 weeks this week. Has not had significant nausea or morning sickness. Has been very tired. OBJECTIVE: BP 100/70 Pulse 88 Temp(Src) 36.3 ??C (97.4 ??F) (Tympanic) Resp 18 Ht 162.6 cm (64) Wt 86.183 kg (190 lb) BMI 32.6 kg/m2 LMP 05/08/2014 Abdomen tender throughout, worst at right lower quadrant. No guarding or rebound tenderness. Appears generally well, no acute distress. Afebrile. PROBLEM: diarrhea Assessment: Stool blockage? Constipation? Change in diet? Plan: Colace and metamucil and increased fluids. Abd ultrasound for or Friday to assess for obstruction if no improvement. Seek urgent careif severe pain, blood in stool or watery diarrhea. Gladys was seen today for diarrhea. Diagnoses and associated orders for this visit: Diarrhea - RAD US ABDOMEN COMPLETE Patient Education Provided: on the various medical [...] above. Outcomes: verbalized understanding Patient Education Provided: There are no on file for this visit. Other Background Data: Patient Active Problem List Diagnosis Date Noted ??? ACL injury tear 06/03/2014 ??? Acute meniscal tear of knee 06/03/2014 ??? Supervision of normal first 07/23/2014 CNM patient [ ] dating sono: done [ x] [ ] Flu vaccine discussed; given [ ], declined [ ] [ ] Aneuploidy testing CF [ ] [4.7] Hemoglobin A1C [ ] Labs reviewed with pt; [ ] Routine 18-20 wk US; ordered [ ]; done [ ] [ ] Tdap in third tri discussed; 28 -32 wks given [ ], declined [ ] [ ] 26wk 1 hr GTT; ordered [ ]; results [ ] [ ] GBS cx ??? Depression 06/03/2014 Was on seroquel for depression but caused memory loss ??? Abnormal Pap smear of cervix 06/03/2014 S/p colposcopy ??? Endometriosis 05/09/2014 S/p laparoscopy 2012 Past Medical History Diagnosis Date ??? Asthma ??? Endometriosis ??? Environmental allergies ??? Depression ??? Endometriosis 2013 ??? Asthma No past surgical history on file. Family History Problem Relation Age of Onset [...] as of this encounter Visit Diagnoses Diagnosis Diarrhea- Primary documented in this encounter Care Teams Resident Care Associate Relationship Specialty Start Date End Date Rina Agosto MD [address] [place] [phone] PCP - General 04/27/14 08/07/15 documented as of this encounter
--- OUTSIDE RECORDS SUMMARY | 2024-04-14 20:44 | XMS_ITS | Encounter Summary ---
Author Organization [facility] Address [address] [place] [address] Care Team Providers Care Lubrication Technician Name Role Phone Rina Agosto MD Primary Care Provider [phone] Reason for Visit * Reason Onset Date Comments Abdominal Pain 08/01/2014 Low pelvic pain Encounter Details Date Type Department Care Team (Late st Contact Info) Description 08/01/2014 Telephone [facility] - [address] [phone] Caron Guardado APRN [facility] [address] [facility] [place] [phone] Abdominal Pain (Low pelvic pain) Social History Tobacco Use Types Packs/Day Years [...] Telephone Encounter - Caron Guardado CNM - 08/01/2014 7555 EST Gladys called with sharp suprapubic twinges of pain for the past 3 hrs. She also noted her urine looks cloudy. She keeps herself very hydrated but wonders if she has a UTI. She denies bleeding or uterine cramping. Chart review reveals no urine C&S was obtained with intial labs. Orderplaced for urine culture and she will go to the lab in the AM to provide a sample. She will hydrateand drink cranberry juice tonight, warm bath for comfort. To call with worsening sx, fever, chills,vaginal bleeding or cramping. documented in this encounter Plan of Treatment [...] Associated Diagnosis Comments BACTERIAL CULTURE, URINE Routine 08/01/2014 15:53 EST Supervision of normal first documented in this encounter Results * BACTERIAL CULTURE, URINE (08/01/2014 15:53 EST) Result Less than 10,000 CFU/ml Usual urogenital cristine. 08/06/2014 10:51 EST [facility] Urine specimen (specimen) URINE / Unknown 08/01/2014 15:53 EST 08/05/2014 16:29 EST Caron Guardado APRN, CNM MICROBI OLOGY - GENERAL ORDERABLES [facility] [address] [place] [address] documented in this encounter Visit Diagnoses Diagnosis Supervision of normal first - Primary documented in this encounter Care Teams Lubrication Technician Relationship Specialty Start Date End Date Rina Agosto MD [address] [place] [phone] PCP - General 04/27/14 08/07/15 documented as of this encounter
--- OUTSIDE RECORDS SUMMARY | 2024-04-14 20:44 | XMS_ITS | Encounter Summary ---
Author Organization [facility] Address [address] [place] [address] Care Team Providers Care District Sales Representative Name Role Phone Rina Agosto MD Primary Care Provider [phone] [phone] Reason for Visit * Reason Comments Flank Pain c/o right flank pain started around 2000 tonight. feels like a kidney stone Has had in past. States is newly . Encounter Details Date Type Department Care Team (Late st Contact Info) Description 06/07/2014 23:37 EDT - 06/08/2014 4:43 EDT Emergency [facility] Emergency Department - Main [address] [address] Jayda Pedroza MD [address] [facility], Level 1 [place] [address] Emergency, MD Jay (Primary Dx) Discharge Disposition: Home or Self [...] Sign Reading Time Taken Comments Blood Pressure 138/92 06/07/2014 2350 EDT Pulse 102 06/07/2014 2350 EDT Temperature 36.5 ??C (97.7 ??F) 06/07/2014 2350 EDT Respiratory Rate 14 06/07/20142349 EDT Oxygen Saturation 100% 06/07/20142349 EDT Inhaled Oxygen Concentration - - Weight 83.9 kg (185 lb) 06/07/20142349 EDT Height 162.6 cm (5' 4) 06/07/20142349 EDT Body Mass Index 31.76 06/07/2014 235 EDT documented in this encounter Discharge Instructions * Attachments The following attachments cannot be sent through Care Everywhere. * : GENERAL INFO (MALAY) documented in this encounter Medications at Time of Discharge Medication Sig Dispensed Refills Start Date End Date acetaminophen (TYLENOL) 325 mg tablet Take 325 mg by mouth every 6 hours. Reported on 12/20/2016 02/22/2017 albuterol (VENTOLIN HFA) 90 mcg/actuation inhaler Inhale 2 Puffs as directed every 4 hours as needed for Wheezing. 11/10/2014 cyclobenzaprine (FLEXERIL) 5 mg tablet Take 1-2 Tabs by mouth every 8 hours as needed for Muscle Spasms. 30 Tab 1 06/03/2014 07/01/2014 ibuprofen (MOTRIN) 200 mg tablet Take 200 mg by mouth every 6 hours. 07/26/2014 letrozole (FEMARA) 2.5 mg tabletIndications:Endome triosis, site unspecified Take 1 Tab by mouth daily. 30 Tab 6 06/02/2014 07/26/2014 MINOCYCLINE HCL (MINOCYCLINE ORAL) Take 100 mg by mouth . 07/01/2014 MONTELUKAST SODIUM (SINGULAIR ORAL) Take by mouth. norethindrone (AYGESTIN) 5 mg tabletIndications:Endome triosis, site unspecified Take 1 Tab by mouth daily. 30 Tab 6 06/02/2014 07/01/2014 documented as of this encounter Discharge Disposition Disposition Code Departure Means Destination Home or Self Care Walk-out Home documented in this encounter ED Notes * Jayda Pedroza MD - 06/11/2014 1355 EDT DOS: 06/07/2014 Chief Complaint Patient presents with ??? Flank Pain c/o right flank pain started around 2000 tonight. feels like a kidney stone Has had in past. States is newly . The patient is a 24 y.o. female who presents today with Flank Pain HPI 24 yo female presents with pressure with urination and right flank pain that began tonight. Describes it as period type cramping. Recent positive test, serum hcg on Friday was 997, unclear LMP - about a month ago, but it was only spotting. Was concerned she could have a kidney stone, socame in tonight. No fever. Has been constipated due to vitamins. No vaginal discharge or bleeding, no trauma. Nml po intake. Review of Systems Negative except for that noted in the HPI, 10 systems reviewed Past Medical History Diagnosis Date ??? Asthma ??? Endometriosis ??? Environmental allergies ??? Depression History reviewed. No pertinent past surgical history. Allergies Allergen Reactions ??? Tramadol Nausea Only Dizziness History Substance Use Topics ??? Smoking status: Former Smoker -- 0.25 packs/day Quit date: 01/01/2014 ??? Smokeless tobacco: Never Used ??? Alcohol Use: Yes Comment: rare, once a month Family History Problem Relation Age of Onset ??? Heart Disease Maternal Uncle ??? High Cholesterol Maternal Uncle ??? Heart Disease Maternal Grandmother ??? Heart Disease Maternal Grandfather Vital Signs Temp: 36.5 ??C (97.7 ??F) Temp src: Tympanic Pulse: 102 Resp: 14 SpO2: 100 % BP: 138/92 mmHg BP Device: BP Machine Patient Position: Sitting BP Cuff Location: Right arm O2 Device: None (Room air) Physical Exam Nursing note and vitals reviewed. Constitutional: She appears well-developed and well-nourished. HENT: [...] distress. Abdominal: Soft. There is no tenderness. Musculoskeletal: Normal range of motion. Neurological: She is alert. She has normal strength. No sensory deficit. Skin: No rash noted. Psychiatric: She has a normal mood and affect. RAD US PELVIS TRANSABDOMINAL AND TRANSVAGINAL Final result not shown here.: Radiology orders: RAD US PELVIS TRANSABDOMINAL AND TRANSVAGINAL Imaging Results RAD US PELVIS TRANSABDOMINAL AND TRANSVAGINAL (Final result) Result time: 06/08/14 10:48:22 Final result Narrative: OB Ultrasound First Trimester Without Fetus June 08, 2014, 4:23 AM COMPARISON: None TECHNIQUE: Static and video loop grayscale and Doppler images of the pelvis were obtained. MATERNAL STRUCTURES: UTERUS: The uterus is anteflexed and measures 7.7 x 3.7 x 4.7 cm. The endometrium is of normal thickness measuring 6.8 mm. There is a small thickwalled hypoechoic structure at the apex of the uterus which measures 3.8 mm. FLUID COLLECTION WITHIN UTERUS: There is a tiny anechoic fluid collection surrounded by a thick hyperechoic wall which measures 3.8 mm RIGHT OVARY: The right ovary measures 3.2 x 2.8 x 2.9 cm and demonstrates normal arterial and venous waveforms. There is a right ovarian anechoic cyst with a thin septa measuring 1 cm x 1 cm x 1.3 cm, there is no associated internal vascularity. LEFT OVARY: The left ovary measures 2.8 cm x 1.6 in meters by 1.6 cm and demonstrates normal arterial and venous waveforms OTHER ADNEXAL MASS: None FREE FLUID: None BIOMETRY/MEASUREMENTS: LMP: Unknown PRIOR ULTRASOUND DATING: None available MEAN SAC DIAMETER: There is a 3.5 mm collection within the uterine cavity with no associated yolk sac or fetus. This may represent an early gestational sac. This would indicate a gestational age of less than or equal to 5 weeks. YOLK SAC: Absent FETUS: Absent CARDIAC ACTIVITY: Not applicable IMPRESSION: There is a fluid collection in the uterus without embryo or yolk sac and a mean sac diameter of 3.8 mm. Differential diagnosis includes early IUP, however may also represent failure. Recommend followup ultrasound and correlation with serial bHCG The results of this examination were communicated by phone to Dr. Pedroza immediately upon discovery on 06/08/14 and findings were repeated back to me to signify understanding according to our critical results reporting policy. I have personally reviewed the images and the above interpretation and agree with the findings. Procedures ED Course: A medical screening exam was performed. Patient with flank pain, concern for kidney stone, but alsowith , unclear how far along, no US yet to confirm IUP. Hcg seems to be rising appropriately. US shows a sac within the uterus, likely early IUP given rising hcg. UA normal. Benign exam. Would not perform further workup at this time. DC home with return precautions. Disposition: Discharged The patient's pain was managed to an adequate level weighing risk vs. benefit of further medications. Upon departure from the Emergency Department, the patient's pain was 0 on a zero to ten scale. Condition at departure from the Emergency Department: Improved ED Current Prescriptions None MDM Final diagnoses: PCP: Rina Agosto MD 06/11/2014 13:55 No flowsheet data found. * Leonard Hairston RN - 06/08/2014 0443 EDT Pt d/c ambulatory with a normal gait and in NAD. Pt refused d/c vital signs. Pt provided with instructions. Resp unlabored. Skin warm and dry. Pt AO. * Jay Duff RN - 06/08/2014 0340 EDT Blood drawn via butterfly needle per protocol, red tube(s) sent to lab per order. * Leonard Hairston RN - 06/08/2014 0112 EDT Pt resting on stretcher, requesting ultrasound to make sure the baby is okay. Pt concerned stating that she has been having some cramping. RN to inform MD of pt concern. Pt denies any other complaints or needs at this time. Will monitor as appropriate. documented in this encounter Plan of Treatment [...] Priority Date/Time Associated Diagnosis Comments RAD US PELVIS TRANSABDOMINAL AND TRANSVAGINAL STAT 06/08/2014 4:48 EDT QUANT BETA HCG, STAT 06/08/2014 3:31 EDT POCT URINE DIPSTICK, CLINITEK STAT 06/08/2014 1:03 EDT documented in this encounter Results * RAD US PELVIS TRANSABDOMINAL AND TRANSVAGINAL (06/08/2014 4:48 EDT) Anatomical Region Laterality Modality Other 06/08/2014 4:48 EDT 06/08/2014 10:48 EDT Narrative 06/08/2014 10:48 EDT OB Ultrasound First Trimester Without Fetus June 08, 2014, 4:23 AM ?? COMPARISON: None TECHNIQUE: Static and video loop grayscale and Doppler images of the pelvis were obtained. MATERNAL STRUCTURES: UTERUS: The uterus is anteflexed and measures 7.7 x 3.7 x 4.7 cm. The endometrium is of normal thickness measuring 6.8 mm. There is a small thickwalled hypoechoic structure at the apex of the uterus which measures 3.8 mm. FLUID COLLECTION WITHIN UTERUS: There is a tiny anechoic fluid collection surrounded by a thick hyperechoic wall which measures 3.8 mm RIGHT OVARY: The right ovary measures 3.2 x 2.8 x 2.9 cm and demonstrates normal arterial and venous waveforms. There is a right ovarian ??anechoic cyst with a thin septa measuring 1 cm x 1 cm x 1.3 cm, there is no associated internal vascularity. LEFT OVARY: The left ovary measures 2.8 cm x 1.6 in meters by 1.6 cm and demonstrates normal arterial and venous waveforms OTHER ADNEXAL MASS: None FREE FLUID: None BIOMETRY/MEASUREMENTS: LMP: Unknown PRIOR ULTRASOUND DATING: None available MEAN SAC DIAMETER: There is a 3.5 mm collection within the uterine cavity with no associated yolk sac or fetus. This may represent an early gestational sac. This would indicate a gestational age of less than or equal to 5 weeks. YOLK SAC: Absent FETUS: Absent CARDIAC ACTIVITY: Not applicable IMPRESSION: There is a fluid collection in the uterus without embryo or yolk sac and a mean sac diameter of 3.8 mm. Differential diagnosis includes early IUP, however may also represent failure. Recommend followup ultrasound and correlation with serial bHCG The results of this examination were communicated by phone to Dr. Pedroza immediately upon discovery on 06/08/14 and findings were repeated back to me to signify understanding according to our critical results reporting policy. I have personally reviewed the images and the above interpretation and agree with the findings. Procedure Note 06/08/2014 OB Ultrasound First Trimester Without Fetus June 08, 2014, 4:23 AM COMPARISON: None TECHNIQUE: Static and video loop grayscale and Doppler images of the pelvis were obtained. MATERNAL STRUCTURES: UTERUS: The uterus is anteflexed and measures 7.7 x 3.7 x 4.7 cm. The endometrium is of normal thickness measuring 6.8 mm. There is a small thickwalled hypoechoic structure at the apex of the uterus which measures 3.8 mm. FLUID COLLECTION WITHIN UTERUS: There is a tiny anechoic fluid collection surrounded by a thick hyperechoic wall which measures 3.8 mm RIGHT OVARY: The right ovary measures 3.2 x 2.8 x 2.9 cm and demonstrates normal arterial and venous waveforms. There is a right ovarian anechoic cyst with a thin septa measuring 1 cm x 1 cm x 1.3 cm, there is no associated internal vascularity. LEFT OVARY: The left ovary measures 2.8 cm x 1.6 in meters by 1.6 cm and demonstrates normal arterial and venous waveforms OTHER ADNEXAL MASS: None FREE FLUID: None BIOMETRY/MEASUREMENTS: LMP: Unknown PRIOR ULTRASOUND DATING: None available MEAN SAC DIAMETER: There is a 3.5 mm collection within the uterine cavity with no associated yolk sac or fetus. This may represent an early gestational sac. This would indicate a gestational age of less than or equal to 5 weeks. YOLK SAC: Absent FETUS: Absent CARDIAC ACTIVITY: Not applicable IMPRESSION: There is a fluid collection in the uterus without embryo or yolk sac and a mean sac diameter of 3.8 mm. Differential diagnosis includes early IUP, however may also represent failure. Recommend followup ultrasound and correlation with serial bHCG The results of this examination were communicated by phone to Dr. Pedroza immediately upon discovery on 06/08/14 and findings were repeated back to me to signify understanding according to our critical results reporting policy. I have personally reviewed the images and the above interpretation and agree with the findings. Jayda Pedroza MD IMG US ORDERABLES * (ABNORMAL) HCG FOR (06/08/2014 3:31 EDT) Quant Beta HCG, Preg 1,814(H) <5 mIU/ml [facility] Comment: Reference Range: Negative = <5 Indeterminate = 5-25 recommend repeat in 48 hours. Positive = >25 Blood specimen (specimen) 06/08/2014 3:31 EDT 06/08/2014 3:41 EDT Jayda Pedroza MD CHEMISTRY & BLOOD G ORDERABLES Performing Organization Address [facility] de Phone Number [facility] [address] [place] [address] * POCT URINE DIPSTICK (06/08/2014 1:03 EDT) Color YELLOW [facility] Clarity, UA Clear [facility] Glucose Neg Neg [facility] Bilirubin Neg Neg [facility] Ketones Neg Neg [facility] Specific [place] 1.025 1.001 - 1.035 [facility] Blood Neg Neg [facility] pH 6.0 4.6 - 8.0 [facility] Protein Neg Neg [facility] Urobilinogen 0.2 0.2 - 1.0 E.U./dl [facility] Nitrite Neg Neg [facility] Leuk Esterase Neg Neg [facility] head shipper ID [id number] [facility] Comment:Test performed at [facility] Department Urine specimen (specimen) 06/08/2014 1:03 EDT 06/08/2014 1:10 EDT Jayda Pedroza MD POINT OF CARE TEST ORDERABLES Performing Organization Address [facility] de Phone Number [facility] [address] [place] [address] documented in this encounter Visit Diagnoses Diagnosis - Primary state, incidental documented in this encounter Care Teams District Sales Representative Relationship Specialty Start Date End Date Rina Agosto MD [address] [place] [phone] PCP - General 04/27/14 08/07/15 documented as of this encounter
--- OUTSIDE RECORDS SUMMARY | 2024-04-14 20:44 | XMS_ITS | Encounter Summary ---
Author Organization [facility] Address [address] [place] [address] Care Team Providers Care Renewal Specialist Name Role Phone Rina Agosto MD Primary Care Provider [phone] Reason for Visit * Reason Comments URI sore throat not reso lving, dry cough Encounter Details Date Type Department Care Team (Late st Contact Info) Description 07/04/2014 11:15 EST Office Visit [facility] Adult Primary Care - [address] [id number] Cristina Rivera, [facility] [address] [address] Strep throat (Primary Dx) Discharge Disposition: Auto Discharge Social [...] Sign Reading Time Taken Comments Blood Pressure 122/64 07/04/2014 1120 EST Pulse 96 07/04/2014 1120 EST Temperature 36.9 ??C (98.4 ??F) 07/04/2014 1120 EST Respiratory Rate 24 07/04/2014 1120 EST Oxygen Saturation - - Inhaled Oxygen Concentration - - Weight 85.7 kg (189 lb) 07/04/2014 1120 EST Height 162.6 cm (5' 4) 07/04/2014 1120 EST Body Mass Index 32.44 07/04/2014 1120 EST documented in this encounter Discharge Diagnoses Diagnosis 034.0 STREP SORE THROAT[ICD-9-CM] documented in this encounter Ordered Prescriptions Prescription Sig Dispensed Refills Start Date End Da te amoxicillin-clavulanate (AUGMENTIN) 875-125 mg per tablet Take 1 Tab by mouth 2 times daily. 20 Tab 0 07/04/2014 07/26/2014 documented in this encounter Discharge Disposition Disposition Code Departure Means Destination Auto Discharge documented in this encounter Progress Notes * Cristina Rivera - 07/04/2014 1545 EST CHIEF COMPLAINT: URI Current Outpatient Prescriptions Medication Sig ??? acetaminophen [...] ??? Tramadol Nausea Only Dizziness SUBJECTIVE: Gladys returns today with ongoing pharyngitis. She reports it is still hard to swallow and no other symptoms have emerged. She does not feel congested, does not have productive cough orpost-nasal drip. She does not feel feverish. Has persistent dry cough. Throat culture is extremely difficult for her, as she has had persistent nausea with her and has a strong gag reflex. OBJECTIVE: BP 122/64 Pulse 96 Temp(Src) 36.9 ??C (98.4 ??F) (Tympanic) Resp 24 Ht 162.6 cm (64) Wt 85.73 kg (189 lb) BMI 32.43 kg/m2 LMP 05/08/2014 Physical Examination: General appearance - alert, well appearing, and in no distress, normal appearing weight and acyanotic, in no respiratory distress Mental status - alert, oriented to person, place, and time, normal mood, behavior, speech, dress, motor activity, and thought processes, affect appropriate to mood PROBLEM: pharyngitis Assessment: Presumptive diagnosis of strep pharyngitis Plan: Given her , opting to treat empirically with augmentin x 10 days. Gladys was seen today for uri. Diagnoses and associated orders for this visit: Strep throat Other Orders - amoxicillin-clavulanate (AUGMENTIN) 875-125 mg per tablet; Take 1 Tab by mouth 2 times daily. Patient Education Provided: on the various medical [...] as of this encounter Visit Diagnoses Diagnosis Strep throat- Primary Streptococcal sore throat documented in this encounter Care Teams Renewal Specialist Relationship Specialty Start Date End Date Rina Agosto MD [address] [place] [phone] PCP - General 04/27/14 08/07/15 documented as of this encounter
--- OUTSIDE RECORDS SUMMARY | 2024-04-14 20:44 | XMS_ITS | Encounter Summary ---
Author Organization [facility] Address [address] [place] [address] Care Team Providers Care Vascular Technician Name Role Phone Rina Agosto MD Primary Care Provider [phone] [phone] Reason for Visit * Reason Onset Date Comments Diarrhea 09/12/2014 Abdominal Cramping 09/12/2014 Encounter Details Date Type Department Care Team (Late st Contact Info) Description 09/12/2014 Telephone [facility] Obstetrics & Midwifery - [facility] [address] [place] [address] Emani Sanchez, RN Diarrhea; Abdominal Cramping Social History Tobacco Use Types Packs/Day Years [...] Telephone Encounter - Emani Sanchez RN - 09/12/2014 1113 EST Call from Gladys with complaints of loose stool and pelvic/abdominal cramping. Is concerned, wants to know what to do. Notified professional bondsman Moises PETIT CNM to follow up with patient. documented in this encounter Plan of [...] on filedocumented in this encounter Care Teams Vascular Technician Relationship Specialty Start Date End Date Rina Agosto MD [address] [place] [phone] PCP - General 04/27/14 08/07/15 documented as of this encounter
--- OUTSIDE RECORDS SUMMARY | 2024-04-14 20:44 | XMS_ITS | Encounter Summary ---
Author Organization [facility] Address [address] [place] [address] Care Team Providers Care Claim Service Representative Name Role Phone Rina Agosto MD Primary Care Provider [phone] Reason for Visit * Reason Onset Date Comments 06/06/2014 Encounter Details Date Type Department Care Team (Late st Contact Info) Description 06/06/2014 Telephone [facility] OBGYN Services - [address] [phone] Ira Denton RN Social History Tobacco Use Types Packs/Day [...] encounter Miscellaneous Notes * Telephone Encounter - Ira Denton RN - 06/06/2014 0937 EDT .Initial Appt Screening Form Best Contact Number: [phone] Referring MD: Drew [facility] Provider: Dr. Modi LMP/Pt estimate gestational age: 9/4/14? Pt had light spotting on 05/08/14 G/P: P:0 HEIGHT:5'4 WEIGHT AT LMP:185 lb Blood type (pt provided): Current medications (prescribed and not prescribed): Flexoril 5mg once daily Albuterol Inhaler Tylenol 1000mg Q8H Womens Vitamins 2 Tablets Once daily Are you a smoker?: No Prior US with heartbeat? yes __X___no Risk Factors: YES NO Abd pain or vag bleeding? X-Flatus,Constipation, Minor pain on right side 2/10 Prior pelvic/tubal surgery or ruptured appendix? X-Laproscopy for endometriosis History of PID/GC/Chlamydia? X-Chlamydia (treated at 19 y.o.) Prior tubal ? X Do you have an IUD in place now? X Do you have a history of infertility for >1 year? X Do you have a chronic medical illness: explain X-Endometriosis, Asthma Prior outcomes: Have you had problems with any prior pregnancies? N/A Beta HCG levels: Date/result Plan Discussed with provider 06/06/14 06/08/14 Ultrasound scheduled: yes: Date: ____X no documented in this encounter Plan of Treatment Not on file documented as of this encounter Goals Goal Patient Goal Type Associated Problems Recent Progress Patient-Stated? Author Blood Pressure < 130/80 Blood Pressure 118/78(2017 16:01 EDT) No Rina Agosto MD Weight Loss General Yes Rina Agosto MD Note: Goal = 145lbs documented as of this encounter Visit Diagnoses Diagnosis examination or test, positive result- Primary documented in this encounter Care Teams Claim Service Representative Relationship Specialty Start Date End Date Rina Agosto MD [address] [place] [phone] PCP - General 04/27/14 08/07/15 documented as of this encounter
--- OUTSIDE RECORDS SUMMARY | 2024-04-14 20:44 | XMS_ITS | Encounter Summary ---
Author Organization [facility] Address [address] [place] [address] Care Team Providers Care Wad Impregnator Name Role Phone Rina Agosto MD Primary Care Provider [phone] [phone] Encounter Details Date Type Department Care Team (Late st Contact Info) Description 07/27/2014 Documentation Visit [facility] OBGYN Services - [facility] [address] [place], [place] [phone] Latisha Drapre, RN Social History Tobacco Use Types Packs/Day [...] Progress Notes * Latisha Draper RN - 07/27/2014 1156 EST Proof of form completed and mailed to patient at her request. documented in this encounter Plan of Treatment [...] on filedocumented in this encounter Care Teams Wad Impregnator Relationship Specialty Start Date End Date Rina Agosto MD [address] [place] [phone] PCP - General 04/27/14 08/07/15 documented as of this encounter
--- OUTSIDE RECORDS SUMMARY | 2024-04-14 20:44 | XMS_ITS | Encounter Summary ---
Author Organization [facility] Address [address] [place] [address] Care Team Providers Care Mold Sprayer Name Role Phone Rina Agosto MD Primary Care Provider [phone] [phone] Reason for Visit * Reason Onset Date Comments Appointment Related 06/21/2014 calling to c [employer] appoitnment for US 06/29 Encounter Details Date Type Department Care Team (Late st Contact Info) Description 06/21/2014 Telephone [facility] - [address] [address] Ophelia Alan RN Appointment Related (calling to confirm appoitnment for US 06/29) Social History Tobacco Use Types Packs/Day Years [...] encounter Miscellaneous Notes * Telephone Encounter - Ophelia Alan RN - 06/21/2014 1642 EST Pt called asking for confirmation of US next week 06/29 at 9am. Pt asking if we know she is . States in her message that if we are unable of this and/or there is no appointment she will go somewhere else for her care. Attempted to return call, busy x3. Will attempt calling pt tomorrow morning. documented in this encounter Plan of Treatment [...] on filedocumented in this encounter Care Teams Mold Sprayer Relationship Specialty Start Date End Date Rina Agosto MD [address] [place] [phone] PCP - General 04/27/14 08/07/15 documented as of this encounter
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
--- OUTSIDE RECORDS SUMMARY | 2024-04-14 20:44 | XMS_ITS | Encounter Summary ---
Author Organization [facility] Address [address] [place] [address] Care Team Providers Care Optometric Assistant Name Role Phone Rina Agosto MD Primary Care Provider [phone] Reason for Visit * Reason Onset Date Comments Diarrhea 09/12/2014 Encounter Details Date Type Department Care Team (Late st Contact Info) Description 09/12/2014 Telephone [facility] OBGYN Services - [address] [phone] Caron Guardado APRN [facility] [address] [facility] [place] [address] Diarrhea Social History Tobacco Use Types Packs/Day Years [...] Telephone Encounter - Caron Guardado CNM - 09/12/2014 6604 EST Gladys called to report abdominal cramping, ? Uterine cramping and some loose stools yesterday, better today. She's worried that this could harm her baby - currently about 18 wks. She and her ate some left over salad and she wonders if this was spoiled. He had some loose stools as well but is otherwise fine. She has mild nause but no vomiting. She denies fever, chills, and regular uterine activity. No vaginal bleeding or change in discharge/LOF. She reports regular FM. I advised her to slowly PO hydrate, try a warm bath and call with worsening sx. She has an appointment for [facility] nextweek. documented in this encounter Plan of Treatment [...] on filedocumented in this encounter Care Teams Optometric Assistant Relationship Specialty Start Date End Date Rina Agosto MD [address] [place] [phone] PCP - General 04/27/14 08/07/15 documented as of this encounter
--- OUTSIDE RECORDS SUMMARY | 2024-04-14 20:44 | XMS_ITS | Encounter Summary ---
Author Organization [facility] Address [address] [place] [address] Care Team Providers Care Position Clerk Name Role Phone Rina Agosto MD Primary Care Provider [phone] [phone] Reason for Visit * Reason Onset Date Comments Nausea 06/20/2014 06/20/2014 Encounter Details Date Type Department Care Team (Late st Contact Info) Description 06/20/2014 Telephone [facility] Adult Primary Care - [address] [phone] Rina Agosto MD [address] [place] [phone] Nausea; Social History Tobacco Use Types Packs/Day Years [...] encounter Miscellaneous Notes * Telephone Encounter - Kaita aRmey RN - 06/20/2014 7227 EST Outgoing call to patient: States that she has been bothered by the nausea for a bit, but the last 3 days she has had some vomiting as well Nausea is very bothersome in the am / noon and seems to clear in the evening. Has tried some toast / crackers without much relief. Recommended that she call her OB physician. She states that she has not met with them yet but has spoken by phone and has an ultrasound scheduled for next week. Has contact number and agrees to call * Telephone Encounter - Gerald Welch III - 06/20/2014 1150 EST Reason for Call: Nausea and Summary/Symptoms: Patient calling states that she is currently 6 weeks and 2 days , and as been unable to keep anything down. Patient feels really nauseas. Please advise Gerald Welch JASON 06/20/2014 11:50 documented in this encounter Plan of Treatment [...] on filedocumented in this encounter Care Teams Position Clerk Relationship Specialty Start Date End Date Rina Agosto MD [address] [place] [phone] PCP - General 04/27/14 08/07/15 documented as of this encounter
--- OUTSIDE RECORDS SUMMARY | 2024-04-14 20:44 | XMS_ITS | Encounter Summary ---
Author Organization [facility] Address [address] [place] [address] Care Team Providers Care Dock Operator Name Role Phone Rina Agosto MD Primary Care Provider [phone] Reason for Visit * Reason Onset Date Comments Appointment Related 06/22/2014 returning ca ll to pt regarding US appointment Encounter Details Date Type Department Care Team (Late st Contact Info) Description 06/22/2014 Telephone [facility] - [address] [phone] Ophelia Alan RN Appointment Related (returning call to pt regarding US appointment) Social History Tobacco Use Types Packs/Day [...] Miscellaneous Notes * Telephone Encounter - Ophelia Alan, STACEY - 06/22/2014 1046 EST Pt returned call. Pt states she wishes to keep her US appointment for Friday at 9am. She is looking forward to possibly seeing/hearing a heartbeat. We dicussed that depending on how far along she is she may not get to see/hear that next week. Pt reports she is doing well. Reports nausea worse during the days, some emesis, but is able to hold down small snack/meals throughout the day.Pt has c/o moderate full body itching that started 1.5 weeks ago and is wondering what she can takefor that. Will consult and get back to her. Otherwise she is doing well. Ok for pt to take Claritinor benadryl for the itching, she is aware. * Telephone Encounter - Ophelia Alan RN - 06/22/2014 0957 EST Message left for pt to call back regarding appointment. documented in this encounter Plan of Treatment [...] on filedocumented in this encounter Care Teams Dock Operator Relationship Specialty Start Date End Date Rina Agosto MD [address] [place] [phone] PCP - General 04/27/14 08/07/15 documented as of this encounter
--- OUTSIDE RECORDS SUMMARY | 2024-04-14 20:44 | XMS_ITS | Encounter Summary ---
Author Organization [facility] Address [address] [place] [address] Care Team Providers Care Petrophysical Engineer Name Role Phone Rina Agosto MD Primary Care Provider [phone] [phone] Reason for Referral * Consult (Routine) - Specialty Report Received Specialty Diagnoses / Procedures Referred By [facility] Referred To Contact Obstetrics & Gynecology Diagnoses Vaginal bleeding Rina Agosto MD [address] [place] [phone] [facility] [address] [place] [address] Referral ID Status Reason Start Date Expiration Date Visits Requested Visits Authorized [id number] Specialty Report Received Specialty Services Required 05/10/2014 1 1 Question Answer Reason for Request: 24yo woman with h/o endometriosis, recent dysmenorrhea, trying to conceive Reason for Visit * Reason Onset Date Comments Patient Information Update 05/09/2014 Encounter Details Date Type Department Care Team (Late st Contact Info) Description 05/09/2014 Telephone [facility] Adult Primary Care - [place] [address] [place] [address] Rina Agosto MD [address] [place] [phone] Patient Information Update Social History Tobacco Use Types Packs/Day Years [...] Telephone Encounter - Katia Ramey RN - 05/10/2014 1106 EDT Outgoing call to patient. States pain has improved from yesterday and she is feeling better. Relayed information from Dr. Agosto. Agrees to the referral and [facility] is OK. Told she would be called for appointment in the next 1 to 2 days. Please contact the office if symptoms worsen or become worrisome in the interm Verbalized understanding without barriers * Telephone Encounter - Rina Agosto MD - 05/10/2014 1036 EDT Patient canceled today's appt with Cristina. I have new patient visit with her in July. Given that she is trying to conceive and has a h/o endometriosis, I recommend that she be followed by leather splitter. Usama placed a referral to [facility]. Could you please let the patient know? If she has a differentgroup that she would like to use I can change the referral. Thanks * Telephone Encounter - Katia Ramey RN - 05/09/2014 1714 EDT Outgoing call to patient: States that she went to ED earlier today. Had a repeat test which was negative and a blood test. No ultrasound was done. Given a percocet for pain with effect but is now wearing off and pain is back to 7 out of 10. States that she was told that it was bad menstrual pain, but she has neverhad pain like this before. States minimal vag. bleeding Was told to try Motrin for the pain as well Recommend that she go back to the ED for evaluation. She declines at present due to not having health insurance and not being treated well at ED, and partner needs the car to go to work Offered appt with Dr. Agosto for tomorrow afternoon, but she is working in the pm and would like an am appt. Scheduled appt with PARIS Rivera. Advised Gladys to take the Motrin as advised in ED. If pain worsens or becomes more worrisome go to ED. Go to ED if fever or increase in vaginal discharge. Verbalized understanding without barriers * Telephone Encounter - June Colorado - 05/09/2014 1652 EDT Reason for Call: Patient Information Update Summary/Symptoms: Patient would like to receive a call back from Triage tonight if possible - she states she continues to be in extreme pain June Colorado 05/09/2014 16:52 * Telephone Encounter - June Colorado - 05/09/2014 1604 EDT Reason for Call: Patient Information Update Summary/Symptoms: Patient got no care/assistance at ER - she was seen by Dr Agosto earlier today and sent to ER for endometriosis - patient states ER did another urine test and richard labs to rule out . Please call patient to advise what do to next - she is very frustrated June Colorado 05/09/2014 16:04 documented in this encounter Plan of Treatment Scheduled Referrals Name Type Priority Associated Diagnoses Order Schedule AMB CONS/FOLLOW UP GYNECOLOGY Outpatient Referral Routine Vaginal bleeding Ordered: 05/10/2014 documented as of this encounter Visit Diagnoses Diagnosis Vaginal bleeding- Primary Other specified noninflammatory disorder of vagina documented in this encounter Care Teams Petrophysical Engineer Relationship Specialty Start Date End Date Rina Agosto MD [address] [place] [phone] PCP - General 04/27/14 08/07/15 documented as of this encounter
--- OUTSIDE RECORDS SUMMARY | 2024-04-14 20:44 | XMS_ITS | Encounter Summary ---
Author Organization [facility] Address [address] [place] [address] Care Team Providers Care Director Of Business Development Name Role Phone Rina Agosto MD Primary Care Provider [phone] [phone] Reason for Visit * Reason Onset Date Comments Nausea 06/27/2014 Encounter Details Date Type Department Care Team (Late st Contact Info) Description 06/27/2014 Telephone [facility] - [address] [phone] Felice Oakley RN Nausea Social History Tobacco Use Types Packs/Day [...] Start Date End Da te promethazine (PHENERGAN) [address] 1 Suppository rectally every 6 hours as needed for Nausea. 12 Suppository 2 06/27/2014 07/01/2014 ondansetron (ZOFRAN-ODT) 4 mg disintegrating tablet Take 1 Tab by mouth every 8 hours as needed for Nausea. 30 Tab 1 06/27/2014 07/26/2014 documented in this encounter Miscellaneous Notes * Addendum Note - Felice Oakley RN - 06/27/2014 3021 ESTAddended by: FELICE OAKLEY on: 06/27/2014 14:51 Modules accepted: Orders * Telephone Encounter - Felice Oakley RN - 06/27/2014 1446 EST Spoke with pt. She has been taking zofran, and has tried 1 dose of phenergan.She states she is having a hard time holding down the oral phenergan. Will see if can change to suppository. Reviewed signs/symptoms of dehydration and when to call or be seen for this. * Telephone Encounter - Felice Oakley RN - 06/27/2014 1403 EST Call from pt. Left message asking about medication /Zofran from Dr. Modi. Per Dr. Modi, prescription for phenergan called in and available.Pt needs to try this first. If it has not helped, can call in refill of zofran as previously prescribed #30 tabs,1 refill. LM for pt to call back. documented in this encounter Plan of Treatment [...] every 8 hours as needed for Nausea. Reorder 06/24/2014 06/27/2014 documented as of this encounter Care Teams Director Of Business Development Relationship Specialty Start Date End Date Rina Agosto MD [address] [place] [phone] PCP - General 04/27/14 08/07/15 documented as of this encounter
--- OUTSIDE RECORDS SUMMARY | 2024-04-14 20:44 | XMS_ITS | Encounter Summary ---
Author Organization [facility] Address [address] [place] [address] Care Team Providers Care Director Safety Council Name Role Phone Rina Agosto MD Primary Care Provider [phone] [phone] Reason for Visit * Reason Comments Routine Visit Encounter Details Date Type Department Care Team (Late st Contact Info) Description 09/22/2014 11:00 EST Routine [facility] OBGYN Services - [address] [phone] Lashon Interiano NP [facility] [address] [facility], [address] [place] [address] GA: 22w6d Social History Tobacco Use Types Packs/Day Years [...] Reading Time Taken Comments Blood Pressure 128/78 09/22/2014 1113 EST Pulse - - Temperature - - Respiratory Rate - - Oxygen Saturation - - Inhaled Oxygen Concentration - - Weight 90.3 kg (199 lb) 09/22/2014 1113 EST Height - - Body Mass Index 34.16 07/26/2014 1437 EST documented in this encounter Progress Notes * Lashon Interiano CNM - 09/22/2014 1910 EST S: Gladys Quintanilla is a 24 y.o. female here for a visit. PRANAY today it is a boy. Does not work outside the home. Notes some swelling of hands had to take rings off. Movement Present O: Vitals: BP: 128/78 mmHg Weight : 90.266 kg (199 lb) 10# TWG to date Fundal Height (cm): 20 cm Heart Rate: 150 Movement: Present A: Patient Active Problem List Diagnosis ??? Depression ??? Abnormal Pap smear of cervix ??? Supervision of normal first ??? BMI 32.0-32.9,adult IUP at 19w6d: maternal habitis precludes accurate size measurement P: discussed increased protein and get her CHO from veggies and fruit. Exercise. Follow up in 4wks 90 % of 15 min visit spent in counseling and coordination of care. documented in [...] documented in this encounter Care Teams Director Safety Council Relationship Specialty Start Date End Date Rina Agosto MD [address] [place] [phone] PCP - General 04/27/14 08/07/15 documented as of this encounter
--- OUTSIDE RECORDS SUMMARY | 2024-04-14 20:44 | XMS_ITS | Encounter Summary ---
Author Organization [facility] Address [address] [place] [address] Care Team Providers Care President Ceo & Founder Name Role Phone Rina Agosto MD Primary Care Provider [phone] [phone] Encounter Details Date Type Department Care Team (Late st Contact Info) Description 09/22/2014 16:21 EST - 09/22/2014 23:59 [facility] Hospital Encounter [facility] [phone] Alise Manzano MD [address] [facility], [address] [place] [address] Discharge Disposition: Home or Self Care [...] as of this encounter Discharge Diagnoses Diagnosis 649.13 OBESITY COMPLICATING , W ANTEPARTUM CONDITION OR COMPL[ICD-9-CM] 278.00 OBESITY NOS[ICD-9-CM] documented in this encounter Medications at Time [...] Code Departure Means Destination Home or Self Jail documented in this encounter Plan of Treatment [...] on filedocumented in this encounter Care Teams President Ceo & Founder Relationship Specialty Start Date End Date Rina Agosto MD [address] [place] [phone] PCP - General 04/27/14 08/07/15 documented as of this encounter
--- OUTSIDE RECORDS SUMMARY | 2024-04-14 20:44 | XMS_ITS | Encounter Summary ---
Author Organization [facility] Address [address] [place] [address] Care Team Providers Care Plywood Matcher Name Role Phone Rina Agosto MD Primary Care Provider [phone] [phone] Reason for Visit * Reason Comments New Patient Visit Endometriosis. Bad p ain on right side of lower abdomen (ovaries). Painful intercourse. * Consult (Routine) - Specialty Report Received Specialty Diagnoses / Procedures [facility] Referred To Contact Obstetrics & Gynecology Diagnoses Vaginal bleeding Rina Agosto MD [address] [place] [phone] [facility] [address] [place] [address] Referral ID Status Reason Start Date Expiration Date Visits Requested Visits Authorized [id number] Specialty Report Received Specialty Services Required 05/10/2014 1 1 Encounter Details Date Type Department Care Team (Late st Contact Info) Description 06/02/2014 9:30 EDT Office Visit [facility] Reproductive Medicine & Inf[facility] - [facility] [address] [place], [place] [phone] Anamaria Modi MD [address] [place] [address] Arabella Wadsworth MD [address] [facility] [address] [place] [address] Endometriosis, site unspecified (Primary Dx) Discharge Disposition: Auto Discharge Social [...] Sign Reading Time Taken Comments Blood Pressure 118/80 06/02/2014 09 EDT Pulse - - Temperature - - Respiratory Rate - - Oxygen Saturation - - Inhaled Oxygen Concentration - - Weight 85.2 kg (187 lb 12.8 oz) 06/02/2014 0930 EDT Height 162.6 cm (5' 4) 06/02/2014929 EDT Body Mass Index 32.24 06/02/2014 0930 EDT documented in this encounter Discharge Diagnoses Diagnosis 617.9 ENDOMETRIOSIS NOS[ICD-9-CM] documented in this encounter Ordered Prescriptions Prescription Sig Dispensed Refills Start Date End Da te norethindrone (AYGESTIN) 5 mg tabletIndications:Endometr iosis, site unspecified Take 1 Tab by mouth daily. 30 Tab 6 06/02/2014 07/01/2014 letrozole (FEMARA) 2.5 mg tabletIndications:Endometr iosis, site unspecified Take 1 Tab by mouth daily. 30 Tab 6 06/02/2014 07/26/2014 documented in this encounter Discharge Disposition Disposition Code Departure Means Destination Auto Discharge documented in this encounter Progress Notes * Anamaria Modi MD - 06/02/2014 1820 EDT Subjective: Patient ID: Gladys Quintanilla is an 24 y.o. female. Chief Complaint Patient presents with ??? New Patient Visit Endometriosis. Bad pain on right side of lower abdomen (ovaries). Painful intercourse. HPI 24-year-old G0 presenting with worsening pelvic pain. Pain is more in the right lower abdomen than left. Describes the pain as sharp, with also some associated back pain. Pain worsens with her periods. Also reports associated dyspareunia. Her symptoms has been worsening since the last 3 months. Minimal relief on Tylenol, ibuprofen and heating pads. She has previously been treated at [place], [place]. She had a laparoscopy performed a year ago which had demonstrated pelvic endometriosis. The surgery was performed by Dr. Arita at [facility]. She was not on any suppression after the surgery. She reports some relief in her symptoms after the surgery. She has tried several forms of hormones in the past and has not tolerated them well. She reports weight gain on Depo-Provera, frequent/a regular cycles on pills, vaginal discomfort with NuvaRing, severe pain/cramps with bleeding on Mirena. The IUD had to be emergently taken out in the ER, due to patient discomfort. She denies any associated vaginal discharge, dysuria or other urinary or bowel symptoms. 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 She reports nearly 20 pound weight gain in the recent past. PARACHUTIST/COMBATANT DIVER QUALIFIED history: Patient's last menstrual period was 05/08/2014. she reports cycles every 23-26 days, up to 5 days of bleeding, reports some clots with increased pain during her periods. Her pain worsenscouple of days prior to onset of the bleeding. She reports history of chlamydia at age 19 she was treated and has been negative since then. History of low-grade AGNIESZKA Pap in 2011. She had further evaluation and was told to be normal. She had a followup Pap smear in the report in 2013 the report of which is not currently available. She is due for a Pap smear now. She had a laparoscopy in 2013 for pelvic pain, which showed endometriosis. Patient Active Problem List Diagnosis ??? Endometriosis Past Medical History Diagnosis Date ??? Asthma ??? Endometriosis Family history: Sister and maternal aunt with history of endometriosis. No history of PARACHUTIST/COMBATANT DIVER QUALIFIED cancer Social History Substance Use Topics ??? Smoking status: Former Smoker -- 0.25 packs/day ??? Smokeless tobacco: Never Used ??? Alcohol Use: Yes Comment: rare Current Outpatient Prescriptions on File Prior to Visit Medication Sig Dispense Refill ??? albuterol (VENTOLIN HFA) 90 mcg/actuation inhaler Inhale 2 Puffs as directed every 4 hours as needed for Wheezing. ??? MINOCYCLINE HCL (MINOCYCLINE ORAL) Take 100 mg by mouth . ??? MONTELUKAST SODIUM (SINGULAIR ORAL) Take by mouth. No current facility-administered medications on file prior to visit. Allergies Allergen Reactions ??? Tramadol Nausea Only Dizziness Review of Systems - See HPI Objective: BP 118/80 Ht 162.6 cm (64) Wt 85.186 kg (187 lb 12.8 oz) BMI 32.22 kg/m2 LMP 05/08/2014 Physical Exam Thyroid: not clinically enlarged Lymph nodes: cervical: not enlarged Chest: Clear Cv: RRR Abd: soft, tenderness noted in the lower abdomen with some guarding(right more than left) Ext: non tender, no edema Alert and oriented x3 Mood: normal Skin: no rash, erythema, acanthosis PELVIC EXAM: Exam chaperoned by AGUS Hebert Bimanual: Uterus appears normal size, AV, mobile. No adnexal mass felt. Uterine and adnexal tenderness noted Rt>Lt. No nodularity appreciated. Assessment: 24-year-old G0 with surgically confirmed endometriosis, with worsening pelvic pain. She has not tolerated most of the hormonal therapy that has shown to benefit endometriosis and associated pain. History of abnormal Pap smear: Need followup Pap(patient declined a Pap smear this visit) Class II obesity: Counseled on increased activity and weight loss Plan: Collect surgical report as well as pathology report from her laparoscopy in 2012, from [facility]. She has signed a release this visit. With patient's difficulty tolerating OCPs, Depo-Provera and Mirena IUD; plan to start her on continuous letrozole with Aygestin to suppress her endometriosis. This regimen has shown to be successful with pain control and suppression of endometriosis. Although she is unlikely to ovulate on continuous norethindrone, She is recommended barrier contraception while on this regimen. She has history of acne is currently controlled on minocycline. If her acne worsens on norethindrone, she could be changed to letrozole with continuous OCP regimen. Plan to also obtain a pelvic ultrasound to rule out any other pelvic pathology causing her pelvic pain. Diagnoses and associated orders for this visit: Endometriosis, site unspecified - letrozole (FEMARA) 2.5 mg tablet; Take 1 Tab by mouth daily. - norethindrone (AYGESTIN) 5 mg tablet; Take 1 Tab by mouth daily. - PARACHUTIST/COMBATANT DIVER QUALIFIED US PELVIS TRANSVAGINAL Followup in 3 months to evaluate the response to treatment Discussed with Dr. Ananth Modi MD Attestation statement: I discussed the patient with the resident/fellow at the time of the visit. Iagree with the findings and the plan of care documented in the resident's/fellow's note. documented in this encounter Plan of Treatment Not on file documented as of this encounter Goals Goal Patient Goal Type Associated Problems Recent Progress Patient-Stated? Author Blood Pressure < 130/80 Blood Pressure 118/78(2017 16:01 EDT) No Rina Agosto MD Weight Loss General Yes Rina Agosto MD Note: Goal = 145lbs documented as of this encounter Visit Diagnoses Diagnosis Endometriosis, site unspecified- Primary documented in this encounter Care Teams Plywood Matcher Relationship Specialty Start Date End Date Rina Agosto MD [address] [place] [phone] PCP - General 04/27/14 08/07/15 documented as of this encounter
--- OUTSIDE RECORDS SUMMARY | 2024-04-14 20:44 | XMS_ITS | Encounter Summary ---
Author Organization [facility] Address [address] [place] [address] Care Team Providers Care Bench Molder Apprentice Name Role Phone Rina Agosto MD Primary Care Provider [phone] [phone] Reason for Visit * Reason Onset Date Comments Dysuria 06/07/2014 Flank Pain 06/07/2014 Encounter Details Date Type Department Care Team (Late st Contact Info) Description 06/07/2014 Telephone [facility] Adult Primary Care - [place] [address] [place], [place] [phone] Jay An MD [address] [facility] [address] [place] [phone] Dysuria; Flank Pain Social History Tobacco Use Types [...] encounter Miscellaneous Notes * Telephone Encounter - Jay An MD - 06/07/2014 6667 EDT Patient with recent calls to report several days of bladder pressure and tonight developed dysuria and unilateral flank pain. H/O nephrolithiasis. No F/C. DDx - kidney stone vs UTI Plan - ER vs OV in AM. Patient is leaning towards ER tonight. documented in this encounter Plan of Treatment [...] on filedocumented in this encounter Care Teams Bench Molder Apprentice Relationship Specialty Start Date End Date Rina Agosto MD [address] [place] [phone] PCP - General 04/27/14 08/07/15 documented as of this encounter
--- OUTSIDE RECORDS SUMMARY | 2024-04-14 20:44 | XMS_ITS | Encounter Summary ---
Author Organization [facility] Address [address] [place] [address] Care Team Providers Care Contact Acid Plant Operator Name Role Phone Rina Agosto MD Primary Care Provider [phone] [phone] Encounter Details Date Type Department Care Team (Latest Contact Info) Description 06/06/2014 10:48 EDT - 06/06/2014 23:59 EDT Hospital Encounter [address] [address] Unknown, Provider, Anamaria Modi MD [facility] [place] [address] Discharge Disposition: Auto Discharge Social History Tobacco [...] as of this encounter Discharge Diagnoses Diagnosis V72.42 EXAMINATION OR TEST, POSITIVE RESULT[ICD-9-CM] documented in this encounter Medications at Time [...] MONTELUKAST SODIUM (SINGULAIR ORAL) Take by mouth. 4 norethindrone (AYGESTIN) 5 mg tabletIndications:Endome triosis, site [...] on filedocumented in this encounter Care Teams Contact Acid Plant Operator Relationship Specialty Start Date End Date Rina Agosto MD [address] [place] [phone] PCP - General 04/27/14 08/07/15 documented as of this encounter
--- OUTSIDE RECORDS SUMMARY | 2024-04-14 20:44 | XMS_ITS | Encounter Summary ---
Author Organization [facility] Address [address] [place] [address] Care Team Providers Care Welder Production Line Combination Name Role Phone Rina Agosto MD Primary Care Provider [phone] [phone] Reason for Visit * Reason Onset Date Comments 06/04/2014 Encounter Details Date Type Department Care Team (Late st Contact Info) Description 06/04/2014 Telephone [facility] Adult Primary Care - [address] [phone] Mary An MD [address] [place] [phone] Social History Tobacco Use Types Packs/Day Years [...] Telephone Encounter - Mary An MD - 06/04/20141948 EDT machine buffer message: She just took a test and it is positive. She is 2 days late for her period. She had a really weird period last month. She is taking flexeril, ibuprofen, minocin. Has questions about these. Her neck is much better since taking flexeril and she does not want to stop it. She is taking 5 mg 2 tablets 3 times a day. Flexeril is a category B. I advised her to take this only as needed and consider tapering off, finding other relief for neck pain. She has been taking minocycline for acne. I advised her to stop this. I advised her to stop ibuprofen and use tylenol. She will call office on Friday to meet with Dr. Agosto and re-check test. documented in this encounter Plan of Treatment [...] filedocumented in this encounter Care Teams Welder Production Line Combination Relationship Specialty Start Date End Date Rina Agosto MD [address] [place] [phone] PCP - General 04/27/14 08/07/15 documented as of this encounter
--- OUTSIDE RECORDS SUMMARY | 2024-04-14 20:44 | XMS_ITS | Encounter Summary ---
Author Organization [facility] Address [address] [place] [address] Care Team Providers Care Electronic News Gathering Editor Name Role Phone Rina Agosto MD Primary Care Provider [phone] Encounter Details Date Type Department Care Team (Latest Contact Info) Description 07/19/2014 Documentation Visit [facility] OBGYN Services - [facility] [address] [place] [address] Mick Barker, RN Supervision of normal first (Primary Dx); Need for influenza vaccination; Unspecified complication of , antepartum Social History Tobacco Use Types [...] as of this encounter Progress Notes * Mick Barker RN - 07/19/2014 1400 EST Labs ordered and episode started documented in this encounter Miscellaneous Notes * Addendum Note - Mick Barker RN - 07/19/2014 1505 ESTAddended by: MICK BARKER on: 07/19/2014 15:05 Modules accepted: Orders documented in this encounter Plan of Treatment Scheduled Orders Name Type Priority Associated Diagnoses Orde r Schedule PAP TEST- ORDER ONLY Pathology Routine Supervision of normal first Expected: 07/20/2014 (Approximate), Expires: 07/19/2015 documented as of this encounter Goals Goal Patient Goal Type Associated Problems Recent Progress Patient-Stated? Author Blood Pressure < 130/80 Blood Pressure 118/78(2017 16:01 EDT) No Rina Agosto MD Weight Loss General Yes Rina Agosto MD Note: Goal = 145lbs documented as of this encounter Results * (ABNORMAL) PROFILE AND VARICELLA (07/20/2014 11:38 EST) ABO and Rh Type O POS 4 13:21 [facility] Antibody Screen Neg 4 13:21 [facility] Rubella IgG Ab Positive 07/20/2014 14:15 [facility] Comment: Positive results suggest immunity to Rubella infection. WBC 10.23 4.0 - 12.4 K/cmm 07/20/2014 12:20 [facility] RBC 4.46 3.86 - 5.04 M/cmm 07/20/2014 12:20 [facility] Hemoglobin 13.0 11.6 - 15.2 gm/dl 07/20/2014 12:20 [facility] HCT 36.2 34.9 - 44.4 % 07/20/2014 12:20 [facility] MCV 81 81 - 98 fl 07/20/2014 12:20 [facility] MCH 29.1 26.7 - 33.3 pg 07/20/2014 12:20 [facility] MCHC 35.8 32.1 - 35.9 gm/dl 07/20/2014 12:20 [facility] PLT 240 141 - 320 K/cmm 07/20/2014 12:20 [facility] RDW-CV 12.8 11.7 - 14.6 % 07/20/2014 12:20 [facility] Hepatitis B Surface Ag Negative 07/20/2014 14:15 [facility] Comment:Reference Range: Neg ative % Neutrophils 76.5 45.5 - 79.7 % 07/20/2014 12:20 [facility] % Lymphocytes 16.6 15.0 - 46.8 % 07/20/2014 12:20 [facility] % Monocytes 6.0 1.8 - 12.0 % 07/20/2014 12:20 [facility] % Eosinophils 0.5(L) 0.6 - 6.9 % 07/20/2014 12:20 [facility] % Basophils 0.4 0.2 - 1.4 % 07/20/2014 12:20 [facility] ABS Neutrophils 7.84 2.20 - 8.85 K/cmm 07/20/2014 12:20 [facility] ABS Lymphs 1.69 1.09 - 3.30 K/cmm 07/20/2014 12:20 [facility] ABS Monocytes 0.61 0.1 - 0.8 K/cmm 07/20/2014 12:20 [facility] ABS Eosinophils 0.05 0.03 - 0.61 K/cmm 07/20/2014 12:20 [facility] ABS Basophils 0.04 0.01 - 0.11 K/cmm 07/20/2014 12:20 [facility] Type of Diff: Automated 07/20/2014 12:20 [facility] Syphilis Serology Interpretation: Nonreactive 07/21/2014 12:56 [facility] Comment:Reference Range: Non reactive Varicella IgG Ab Interpretation: Positive 07/21/2014 12:56 [facility] Comment: Presence of detectable Varicella Zoster virus IgG antibodies. Blood specimen (specimen) BLOOD SPECIMEN / Unknown 07/20/2014 11:38 EST 07/20/2014 12:04 EST Earl Guadarrama NP [employer] PACKAGES & DNA PROBE ORDERABLES [facility] [address] [place] [address] * HIV 1/2 ANTIBODY (07/20/2014 11:38 EST) HIV 1/2 Antibody Negative 07/20/20 14 14:15 EST [facility] Comment: If acute HIV-1 infection is suspected in a high risk patient, submit plasma specimen for HIV-1 RNA quantification test. Reference Range: ??Negative Assayed utilizing [employer] chemiluminescent technology. Blood specimen (specimen) BLOOD SPECIMEN / Unknown 07/20/2014 11:38 EST 07/20/2014 12:04 EST Earl Guadarrama NP [facility] IMMUNOLOGY AND SEROLOGY ORDERABLES [facility] [address] [place] [address] documented in this encounter Visit Diagnoses Diagnosis Supervision of normal first - Primary Need for influenza vaccination Need for prophylactic vaccination and inoculation against influenza Unspecified complication of , antepartum documented in this encounter Orders Lab Orders Without Results Count Last Ordered D ate First Ordered Date BACTERIAL CULTURE, URINE 1 07/19/2014 documented in this encounter Care Teams Electronic News Gathering Editor Relationship Specialty Start Date End Date Rina Agosto MD [address] [place] [id number] PCP - General 04/27/14 08/07/15 documented as of this encounter
--- OUTSIDE RECORDS SUMMARY | 2024-04-14 20:44 | XMS_ITS | Encounter Summary ---
Author Organization [facility] Address [address] [place] [address] Care Team Providers Care Insurance Underwriting Assistant Name Role Phone Rina Agosto MD Primary Care Provider [phone] [phone] Reason for Visit * Reason Comments Abdominal Cramping has been trying to c onceive, has a h/o endometriosis surgery last year. Started spotting yesterday, all symptoms of per patient. Encounter Details Date Type Department Care Team (Late st Contact Info) Description 05/09/2014 9:30 EDT Office Visit [facility] Adult Primary Care - [address] [address] Rina Agosto MD [address] [place] [phone] Vaginal bleeding (Primary Dx) Discharge Disposition: Auto Discharge Social [...] Reading Time Taken Comments Blood Pressure 110/80 05/09/2014 0947 EDT Pulse 72 05/09/2014 0947 EDT Temperature 36.3 ??C (97.4 ??F) 05/09/2014 0947 EDT Respiratory Rate 16 05/09/2014 0947 EDT Oxygen Saturation - - Inhaled Oxygen Concentration - - Weight 82.6 kg (182 lb) 05/09/2014 0947 EDT Height 162.6 cm (5' 4) 05/09/2014 0947 EDT Body Mass Index 31.24 05/09/2014 0947 EDT documented in this encounter Discharge Diagnoses Diagnosis 623.8 NONINFLAM DIS VAGINA NEC[ICD-9-CM] documented in this encounter Discharge Disposition Disposition Code Departure Means Destination Auto Discharge documented in this encounter Progress Notes * Rina Agosto MD - 05/09/2014 1021 EDT Patient ID: Gladys Quintanilla is a 24 y.o. y.o. female Chief Complaint: Abdominal Cramping Subjective: HPI: Ms. Quintanilla presents with abdominal pain and vaginal bleeding. She states that she and her spouse aretrying to conceive. For the past 2 weeks, she has thought that she might be because she was experiencing nipple tenderness, fatigue and some irritability. Yesterday she began spotting and having abdominal cramping. This morning the bleeding increased as did her cramps. She is currently having 8/10 crampy pain in her suprapubic and LLQ. Her bleeding is not as strong as it is during a regular period. She feels light-headed, but denies f/c, nausea, vomiting, constipation, urinary symptoms. She reports a history of endometriosis managed surgically (they scraped me out) in 2012 by an MDrobbin Edmonson. She says that she has been thinking it was coming back over the last few months, as herlast period was a bit worse than usual. However, given that she thinks she might be , she is also worried that she is miscarrying. LMP 04/14/14. Patient is in a monogamous relationship, no history of STI. Current Outpatient Prescriptions Medication Sig ??? albuterol (VENTOLIN HFA) 90 mcg/actuation inhaler Inhale 2 Puffs as directed every 4 hours as needed for Wheezing. ??? MINOCYCLINE HCL (MINOCYCLINE ORAL) Take 100 mg by mouth . ??? MONTELUKAST SODIUM (SINGULAIR ORAL) Take by mouth. Allergies Allergen Reactions ??? Tramadol Nausea Only Dizziness Review of Systems: System Neg Pos Comments Constitutional x Light-headed Eyes x ENT x Cardiovascular x Pulmonary x Gastrointestinal x Genitourinary x Abdominal cramping, vaginal bleeding Musculoskeletal x Skin/breast x Neurological x Psychiatric x Endocrine x Hematologic Lymphatic x Allergic Immunologic x Objective: Physical Examination: BP 110/80 Pulse 72 Temp(Src) 36.3 ??C (97.4 ??F) (Tympanic) Resp 16 Ht 162.6 cm (64) Wt 82.555 kg (182 lb) BMI 31.22 kg/m2 LMP 04/14/2014 General: Alert, cooperative, no distress. Head: Normocephalic, without obvious abnormality. Back: Symmetric, no curvature. ROM normal. No spinal or CVA tenderness on palpation. Abdomen: Soft, TTP in LLQ and suprapubic region. No rebound, +guarding. No other areas of tenderness. Bowel sounds normal. No masses, No organomegaly, no bruits or evidence for aneurysm. Genitalia: Deferred as patient is going to ED Pulses: 2+ and symmetric all extremities. Skin: Skin color, texture, turgor normal. No rashes or suspicious lesions. LABS: Results for orders placed in visit on 05/09/14 POCT URINE TEST Result Value Range Test, Urine, POC Negative Reference Range, Negative Control Line Present Yes Background Clear? Yes Assessment: Abdominal pain/vaginal bleeding: Patient may be menstruating, but given history of endometriosis and severity of cramping, I think she warrants urgent evaluation/ultrasound. Doubt infectious etiology-- as both partners report monogamy, but this certainly remains possible as well. Unfortunately she has not established with act tutor here in [place]. Negative test is reassuring that symptomsare not 2/2 ectopic . Plan: The previous medicines, as noted on the medication list, are being continued. Changes and refills are noted below. Gladys was seen today for abdominal cramping. Diagnoses and associated orders for this visit: Vaginal bleeding - POCT Urine Test - To ED for further evaluation Today's ivxc-pl-gbry visit time was 20 minutes with 10 minutes spent in counseling and/or coordination of [...] change are documented above. Outcomes: verbalized understanding Other Background Data: Patient Active Problem List Diagnosis Date Noted ??? Endometriosis 05/09/2014 S/p laparoscopy 2013 Past Medical History Diagnosis Date ??? Asthma ??? Endometriosis History reviewed. No pertinent past surgical history. History reviewed. No pertinent family history. History Substance Use Topics ??? Smoking status: Former Smoker -- 0.25 packs/day ??? Smokeless tobacco: Never Used ??? Alcohol Use: Yes Comment: rare documented in this encounter Plan of Treatment Not on file documented as of this encounter Procedures Procedure Name Priority Date/Time Associated Diagnosis Comments POCT TEST, VISUAL READ Routine 05/09/2014 9:50 EDT Vaginal bleeding documented in this encounter Results * POCT URINE TEST (05/09/2014 9:50 EDT) Test, Urine, POC Negative Reference Range, Negative POINT OF CARE Control Line Present Yes POINT OF CARE Background Clear? Yes POINT OF CARE Urine specimen (specimen) 05/09/2014 9:50 EDT Rina Agosto MD POINT OF CARE CANDY T ORDERABLES POINT OF CARE documented in this encounter Visit Diagnoses Diagnosis Vaginal bleeding- Primary Other specified noninflammatory disorder of vagina documented in this encounter Discontinued Medications Medication Sig Discontinue Reason Start Date End Da te naproxen (NAPROSYN) 500 mg tablet Take 1 Tab by mouth 2 times daily. Patient Stopped Taking 09/07/2013 05/09/2014 fluticasone-salmeterol (ADVAIR) 100-50 mcg/dose diskus inhaler Inhale 1 Puff as directed 2 times daily. Patient Stopped Taking 05/09/2014 documented as of this encounter Care Teams Insurance Underwriting Assistant Relationship Specialty Start Date End Date Rina Agosto MD [address] [place] [phone] PCP - General 04/27/14 08/07/15 documented as of this encounter
--- OUTSIDE RECORDS SUMMARY | 2024-04-14 20:44 | XMS_ITS | Encounter Summary ---
Author Organization [facility] Address [address] [place] [address] Care Team Providers Care Air Pumper Name Role Phone Rina Agosto MD Primary Care Provider [phone] [phone] Reason for Visit * Reason Onset Date Comments Test 06/06/2014 Update 06/06/2014 Encounter Details Date Type Department Care Team (Late st Contact Info) Description 06/06/2014 Telephone [facility] OBGYN Services - [facility] [address] [place], [place] [id number] Ira Denton RN Test; Update Social History Tobacco Use Types Packs/Day [...] encounter Miscellaneous Notes * Telephone Encounter - Ashley Velasquez RN - 06/08/2014 1620 EDT PC/Pt: update after ED visit all is well - bloodwork and U/S were fine and discomfort more then likely due to her endometriosis. * Telephone Encounter - Ira Denton RN - 06/06/2014 1714 EDT Called Gladys and told her to arrive on 06/20/14 for another Hcg test, per Dr. Modi. Pt acknowledged and she will arrive at 11 am. documented in this encounter Plan of Treatment [...] on filedocumented in this encounter Care Teams Air Pumper Relationship Specialty Start Date End Date Rina Agosto MD [address] [place] [phone] PCP - General 04/27/14 08/07/15 documented as of this encounter
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
--- OUTSIDE RECORDS SUMMARY | 2024-04-14 20:44 | XMS_ITS | Encounter Summary ---
Author Organization [facility] Address [address] [place] [address] Care Team Providers Care Lead Generation Representative Name Role Phone Rina Agosto MD Primary Care Provider [phone] [phone] Encounter Details Date Type Department Care Team (Late st Contact Info) Description 07/20/2014 Results Only [facility] OBGYN Services - [address] [phone] Patricia Davalos, LEGAL SECRETARY [facility] [address] [facility], [address] [place] [address] Social History Tobacco Use Types [...] Diagnosis Comments PAP TEST- RESULT ONLY Routine 07/20/2014 0:00 EST documented in this encounter Results * PAP TEST- RESULT ONLY (07/20/2014 0:00 EST) Pathology Report: CYTOPATHOLOGY REPORT Reports generated via electronic interface contain original data; however they are lacking the format of the original report. Caution should be taken when reading/interpreti ng unformatted reports. Name: ? GLADYS NICHOLAS Rebeka ? Accession #: ? [id number] ? : ? 1990 (Age: 24) ??F ?Collect Date: ? 07/20/2014 ? Location: ? OBGYN ? Receive Date: ? 07/21/2014 ? Provider: PATRICIA DAVALOS [facility] Copy to: ? Final Report SPECIMEN ADEQUACY ? Satisfactory for Evaluation - transformation zone component present GENERAL CATEGORIZATION ? Negative for Intraepithelial Lesion or Malignancy INTERPRETATION ? Shift in cristine present suggestive of bacterial vaginosis. Menstrual/Pregnanc y Status: ?? Previous Gynecologic Pathology: LSIL Specimen/Source: ??Pap Test, Cervix/Endocervix, ThinPrep Imaging System with manual evaluation Document reviewed and electronically signed by: ? GREGOR Hernandez(ASCP) ? Report ??Date: 07/27/2014 15:06 HPV with Pap Test ? Date Ordered: ? 07/27/2014 ? Status: ?? Signed Out ?Date Complete: ? 07/29/2014 ? By: ??System Interface ? Date Reported: ? 07/29/2014 ? Interpretation RESULT: Negative for HPV. No E6 or E7 mRNA is detected from HPV types 16,18,31,33,35, 39,45,51,52,56,58, 59,66, and 68 by commodity supervisor mediated amplification. Comments Document reviewed and electronically signed by: ? System Interface ? Report date: 07/29/2014 By the signature above, the attending physician certifies that he/she has personally conducted a gross and/or microscopic examination of the described specimens and rendered or confirmed the above diagnosis. End of Report [facility] 07/20/2014 07/21/2014 Patricia Davalos NP M PATHOLOGY O RDERABLES Performing Organization Address City/State/[facility] Co de Phone Number [facility] [address] [place] [address] documented in this encounter Visit Diagnoses Not on filedocumented in this encounter Care Teams Lead Generation Representative Relationship Specialty Start Date End Date Rina Agosto MD [address] [place] [phone] PCP - General 04/27/14 08/07/15 documented as of this encounter
--- OUTSIDE RECORDS SUMMARY | 2024-04-14 20:44 | XMS_ITS | Encounter Summary ---
Author Organization [facility] Address [address] [place] [address] Care Team Providers Care Life Skills Coordinator Volunteer Name Role Phone Rina Agosto MD Primary Care Provider [phone] Reason for Visit * Reason Onset Date Comments 08/08/2014 Encounter Details Date Type Department Care Team (Late st Contact Info) Description 08/08/2014 Telephone [facility] OBGYN Services - [facility] [address] [place] [address] Mya Arroyo, RN [address] [place] [address] Social History Tobacco Use Types Packs/Day Years [...] encounter Miscellaneous Notes * Telephone Encounter - Mya Arroyo, RN - 08/08/2014 1723 EST Gladys has a Doppler at home and is sure she picked up another heart tone. She found one onthe left and one on the right. She was advised that one of them was most likely hers, but she is sure that is not the case. Gume Peters was asked to call pt. documented in this encounter Plan of [...] on filedocumented in this encounter Care Teams Life Skills Coordinator Volunteer Relationship Specialty Start Date End Date Rina Agosto MD [address] [place] [phone] PCP - General 04/27/14 08/07/15 documented as of this encounter
--- OUTSIDE RECORDS SUMMARY | 2024-04-14 20:44 | XMS_ITS | Encounter Summary ---
Author Organization [facility] Address [address] [place] [address] Care Team Providers Care Classified Copy Control Clerk Name Role Phone Rina Agosto MD Primary Care Provider [phone] [phone] Reason for Visit * Reason Onset Date Comments Vaginal Bleeding 08/06/2014 Encounter Details Date Type Department Care Team (Late st Contact Info) Description 08/06/2014 Telephone [facility] OBGYN Services - [address] [phone] Cecelia Reece NP CNM [address] [facility], [address] [place] [address] Vaginal Bleeding Social History Tobacco Use Types [...] Telephone Encounter - Cecelia Reece CNM - 08/06/20142047 EST 13 weeks - experiencing some bleeding. Did have IC today - really hurt Had US @ 7 weeks - IUP Recommend taking it easy, pelvic rest Call Friday if still spotting documented in this encounter Plan of Treatment [...] on filedocumented in this encounter Care Teams Classified Copy Control Clerk Relationship Specialty Start Date End Date Rina Agosto MD [address] [place] [phone] PCP - General 04/27/14 08/07/15 documented as of this encounter
--- OUTSIDE RECORDS SUMMARY | 2024-04-14 20:44 | XMS_ITS | Encounter Summary ---
Author Organization [facility] Address [address] [place] [address] Care Team Providers Care Sweeper Brush Maker Machine Name Role Phone Rina Agosto MD Primary Care Provider [phone] [phone] Reason for Visit * Reason Comments Pelvic Pain See TCALL. Spotting and cramping since yesterday, worsening. Seen at Given this am Encounter Details Date Type Department Care Team (Late st Contact Info) Description 05/09/2014 10:25 EDT - 05/09/2014 16:05 EDT Emergency [facility] Emergency Department - Main [address] [phone] Bhavana Olson MD [address] [place] [address], [address] [place] [address] Emergency, MD Jay Abdominal pain (Primary Dx); Dysmenorrhea Discharge Disposition: Home or Self Care Social [...] Sign Reading Time Taken Comments Blood Pressure 101/53 05/09/2014 1509 EDT Pulse 80 05/09/2014 1509 EDT Temperature 35.9 ??C (96.6 ??F) 05/09/2014 1051 EDT Respiratory Rate 17 05/09/2014 1509 EDT Oxygen Saturation 100% 05/09/2014 1509 EDT Inhaled Oxygen Concentration - - Weight 74.8 kg (165 lb) 05/09/2014 1051 EDT Height - - Body Mass Index 28.32 05/09/2014 0947 EDT documented in this encounter Discharge Instructions * Discharge Instructions* Bhavana Olson MD - 05/09/2014 15:57 EDT Use motrin 600mg every 6 hors for Uterine pain and Cramps Plenty of fluids and rest No work today * Attachments The following attachments cannot be sent through Care Everywhere. * ABDOMINAL PAIN: AFTER YOUR VISIT TO THE EMERGENCY ROOM (LATVIAN) * DYSMENORRHEA (LATVIAN) documented in this encounter Medications at Time of Discharge Medication Sig Dispensed Refills Start Date End Date albuterol (VENTOLIN HFA) 90 mcg/actuation inhaler Inhale 2 Puffs as directed every 4 hours as needed for Wheezing. 11/10/2014 MINOCYCLINE HCL (MINOCYCLINE ORAL) Take 100 mg by mouth . 07/01/2014 MONTELUKAST SODIUM (SINGULAIR ORAL) Take by mouth. 4 documented as of this encounter Discharge Disposition Disposition Code Departure Means Destination Home or Self Care documented in this encounter ED Notes * Bhavana Olson MD - 05/09/2014 1138 EDT DOS: 05/09/2014 Chief Complaint Patient presents with ??? Pelvic Pain See TCAANASTASIA. Spotting and cramping since yesterday, worsening. Seen at Given this am The patient is a 24 y.o. female who presents today with Pelvic Pain HPI Comments: 24-year-old female comes to the emergency department with pelvic pain. Patient notes spotting since last night. Cramping since yesterday low abdomen right abdomen and radiates into her right back. Patient notes she was not noticing any significant vaginal flow. Patient notes her last normal menstrual period was April 14. She is actively trying to get she is using no control. Patient has a history of endometriosis with surgery for same in May of 2013. Patient notes she has not had any fevers or chills she notes no dysuria. She notes she only seems to be bleeding when she is urinating. She notes she feels somewhat lightheaded. Pelvic Pain Associated symptoms include pelvic pain. Review of Systems Genitourinary: Positive for pelvic pain. Neurological: Positive for light-headedness. All other systems reviewed and are negative. Past Medical History Diagnosis Date ??? Asthma ??? Endometriosis No past surgical history on file. Allergies Allergen Reactions ??? Tramadol Nausea Only Dizziness History Substance Use Topics ??? Smoking status: Former Smoker -- 0.25 packs/day ??? Smokeless tobacco: Never Used ??? Alcohol Use: Yes Comment: rare No family history on file. Vital Signs Temp: 35.9 ??C (96.6 ??F) Temp src: Tympanic Pulse: 72 Resp: 17 SpO2: 100 % BP: 138/88 mmHg BP Device: BP Machine Physical Exam Constitutional: She is oriented to person, place, and time. Laying in bed, no acute distress winced in pain with abdominal exam, Pt noted to be hyperventilating slightly on my arrival to room, improves with exam, HENT: Head: Normocephalic and atraumatic. Nose: Nose normal. Mm dry Cardiovascular: Normal rate and intact distal pulses. No murmur heard. Pulmonary/Chest: Effort normal and breath sounds normal. Abdominal: Soft. Bowel sounds are normal. She exhibits no distension and no mass. There is tenderness (mild right sided and suprapubic). There is no rebound and no guarding. Genitourinary: Pelvic exam was performed with patient prone. There is no rash, lesion or injury on the right labia. There is no rash, lesion or injury on the left labia. Uterus is tender. Cervix exhibits no friability. There is bleeding around the vagina. No erythema or tenderness around the vagina. No foreign body around the vagina. No signs of injury around the vagina. No vaginal discharge found. Neurological: She is alert and oriented to person, place, and time. Skin: Skin is warm and dry. Radiology orders: None Imaging Results None Procedures ED Course: A medical screening exam was performed. 24-year-old female with pelvic pain and back pain. Patient's with a history of endometriosis. Patient has been on Toprol therapy since surgery for endometriosis in May patient is trying to get she states she had a negative test earlier in the medical head repeat that. She states she is on the bleeding when she urinates asked if there is any vaginal bleeding she said no initially. However prepping for pelvic exam patient went to the bathroom and noted she is now bleeding vaginally. On pelvic exam there is fairly good flow but certainly not brisk or concerning flow from the cervix. Differential diagnosis includes endometrial discomfort/endometriosis pain associated with onset of menses. The patient would only be date 25 over typical cycle however. Patient is actively trying to get . We will go ahead and repeat test here. Patient could have had a very short /very early miscarriage. We discussed this she did note that her previous menses was normal.Would not ultrasound at this time. We will go ahead with one tablet of Percocet for pain. Pain better preg test negative- urine, on further review pt admits that she did have menses 9-4 butit was not normal it was shorter than before once reminded by signif other it was only 3 days ang bunch breaker- in face of this could she be further than 5-8 weeks when urine test can be fasle neg and could this be SAB, plan quant hcg, while drawing blood will give IVF HCG is negative, pt is improved with pain since meds and clearly bleeding but not excessively ? Endometriosis pain vs onset of menses pain - could have had a very early SAB but could not pursue any further. Disposition: Discharged The patient's pain was managed to an adequate level weighing risk vs. benefit of further medications. Upon departure from the Emergency Department, the patient's pain was 6 on a zero to ten scale. Condition at departure from the Emergency Department: Improved ED Current Prescriptions None MDM Final diagnoses: Abdominal pain Dysmenorrhea PCP: Rina Agosto MD 05/09/2014 11:38 No flowsheet data found. * Brittany Leger - 05/09/2014 1030 EDT TCALL: GLADYS NICHOLAS 1990 REFERRED BY KLAUDIA RODRIGUEZ GIVEN FOR ABDOMINAL PAIN, LIGHT HEADED AND VAGINAL BLEEDING, NEEDS GAS METER REPAIR SUPERVISOR WORK UP (LYF). documented in this encounter Plan of Treatment Not on file documented as of this encounter Procedures Procedure Name Priority Date/Time Associated Diagnosis Comments QUANT BETA HCG, STAT 05/09/2014 13:36 EDT TEST, URINE STAT 05/09/2014 12:38 EDT URINE MICROSCOPIC Routine 05/09/2014 12: 36 EDT URINALYSIS WITH MICROSCOPIC IF POSITIVE Routine 05/09/2014 12:36 EDT URINE CULTURE IF POSITIVE Routine 05/09/2014 12:36 EDT BACTERIAL CULTURE, URINE Routine 05/09/2014 12:36 EDT CHLAMYDIA/N. GONORRHOEAE AMPLIFIED NUCLEIC ACID Routine 05/09/2014 11:41 EDT documented in this encounter Results * HCG FOR (05/09/2014 13:36 EDT) Quant Beta HCG, Preg <5 <5 mIU/ml [facility] Comment: Reference Range: Negative = <5 Indeterminate = 5-25 recommend repeat in 48 hours. Positive = >25 Blood specimen (specimen) 05/09/2014 13:36 EDT 05/09/2014 13:42 EDT Bhavana Olson MD CHEMISTRY & BLOOD GA S ORDERABLES Performing Organization Address City/State/[facility] Co de Phone Number [facility] [address] [place] [address] * TEST, URINE (05/09/2014 12:38 EDT) Result- Test, Ur Neg Neg [facility] Comment: NOTE: False negative results may occur in women who are beyond 5-8 weeks gestation. Diagnosis of should be based on a correlation of test results with typical clinical signs and symptoms. Urine specimen (specimen) URINE / Unknown 05/09/2014 12:38 EDT 05/09/2014 12:43 EDT Bhavana Olson MD URINALYSIS ORDERABLE S Performing Organization Address City/[facility]/ZIP Co de Phone Number [facility] [address] [place] [address] * BACTERIAL CULTURE, URINE (05/09/2014 12:36 EDT) Specimen Description Urine [facility] Result No growth [facility] Report Status 05/10/2014 Final [facility] URINE / Unknown 05/09/2014 1 2:36 EDT 05/09/2014 14:03 EDT Bhavana Olson MD MICROBIOLOGY - GENER AL ORDERABLES Performing Organization Address [facility] Co de Phone Number [facility] [address] [place] [address] * (ABNORMAL) URINE MICROSCOPIC (05/09/2014 12:36 EDT) WBC, UA less than 1 0 - 5 /HPF [facility] RBC, UA >50 0 - 5 /HPF [facility] Squam Epithel, UA Frequent(A) None seen /HPF [facility] Renal Epithel, UA None seen None seen /HPF [facility] Bacteria, UA None seen None seen /HPF [facility] Crystals, UA None seen /HPF [facility] Hyaline Casts, UA None seen /LPF [facility] UA Comment Microscopic results [facility] Comment: are unreliable on urines unrefrig >2hrs or refrig >8hrs. 05/09/2014 12:3 6 EDT 05/09/2014 12:43 EDT Bhavana Olson MD URINALYSIS ORDERABLE S Performing Organization Address [facility] Co de Phone Number [facility] [address] [place] [address] * URINE CULTURE IF UA POSITIVE - NON POCT URINALYSIS ONLY (05/09/2014 12:36 EDT) Culture if Indicated Culture indicated by urinalysis results. [facility] Urine specimen (specimen) URINE / Unknown 05/09/2014 12:36 EDT 05/09/2014 12:43 EDT Bhavana Olson MD MICROBIOLOGY - GENER AL ORDERABLES Performing Organization Address [facility] Co de Phone Number [facility] [address] [place] [address] * (ABNORMAL) URINALYSIS (05/09/2014 12:36 EDT) Color, UA Red [facility] Clarity, UA Cloudy [facility] Glucose, UA Neg Neg [facility] Bilirubin, UA Neg Neg [facility] Ketones, UA Neg Neg [facility] Specific [place], Urine 1.015 1.001 - 1.035 [facility] Blood, UA 3+(A) Neg [facility] pH, UA 6.5 4.6 - 8.0 [facility] Protein, UA Trace(A) Neg [facility] Urobilinogen, UA 0.2 0.2 - 1.0 E.U./dl [facility] Nitrite, UA Neg Neg [facility] Leuk Esterase Trace(A) Neg [facility] Urine specimen (specimen) URINE / Unknown 05/09/2014 12:36 EDT 05/09/2014 12:43 EDT Bhavana Olson MD URINALYSIS ORDERABLE S Performing Organization Address [facility] Co de Phone Number [facility] [address] [place] [address] * CHLAMYDIA/GC AMPLIFIED (05/09/2014 11:41 EDT) Specimen Description Cervix and Vagina [facility] Chlamydia Result No Chlamydia trachomatis DNA detected by lock fitter mediated amplification. [facility] GC Result No Neisseria gonorrhoeae DNA detected by lock fitter mediated amplification. [facility] Specimen of unknown material (specimen) TOPOGRAPHY UNKNOWN / Unknown 05/09/2014 11:41 EDT 05/09/2014 12:03 EDT Bhavana Olson MD MICROBIOLOGY - [facility] AL ORDERABLES [facility] [address] [place] [address] documented in this encounter Visit Diagnoses Diagnosis Abdominal pain- Primary Abdominal pain, unspecified site Dysmenorrhea documented in this encounter Administered Medications Inactive Administered Medications - up to 3 most recent administrations Medication Order MAR Action Action Date Dose Rate Site ibuprofen (MOTRIN) tablet 600 mg 600 mg, oral, NOW X1, 1 dose, On Fri05/09/14 at 1200, STAT Given 05/09/2014 12:32 EDT 600 mg oxyCODONE-acetaminophen (PERCOCET) 5-325 mg per tablet 1 Tab 1 Tablet, oral, NOW X1, 1 dose, On Fri05/09/14 at 1145, STAT Given 05/09/2014 12:32 EDT 1 Tablet sodium chloride 0.9 % BOLUS 1,000 mL 1,000 mL, intravenous, NOW X1, 1 dose, On Fri05/09/14 at 1330, STAT Given 05/09/2014 13:38 EDT 1,000 mL documented in this encounter Active and Recently Administered Medications Times are shown in EDT. Scheduled Medication Order 05/07/2014 05/08/2014 05/09/2014 ibuprofen (MOTRIN) tablet 600 mg (COMPLETED) 600 mg, oral, NOW X1, 1 dose, On Fri05/09/14 at 1200, STAT 1232 (Given - Provid er: [place] Alfonso RN) oxyCODONE-acetaminophen (PERCOCET) 5-325 mg per tablet 1 Tab (COMPLETED) 1 Tablet, oral, NOW X1, 1 dose, On Fri05/09/14 at 1145, STAT 1232 (Given - Provid er: [place] Alfonso RN) sodium chloride 0.9 % BOLUS 1,000 mL (COMPLETED) 1,000 mL, intravenous, NOW X1, 1 dose, On Fri05/09/14 at 1330, STAT 1338 (Given - Provid er: [place] Alfonso, STACEY) documented in this encounter Orders Lab Orders Without Results Count Last Ordered D ate First Ordered Date POCT TEST, CLINITEK 1 05/09/2014 POCT URINE DIPSTICK 1 05/09/2014 Nursing Count Last Ordered Date First Orde red Date INSERT SALINE LOCK 1 05/09/2014 documented in this encounter Care Teams Sweeper Brush Maker Machine Relationship Specialty Start Date End Date Rina Agosto MD [address] [place] [phone] PCP - General 04/27/14 08/07/15 documented as of this encounter
--- OUTSIDE RECORDS SUMMARY | 2024-04-14 20:44 | XMS_ITS | Encounter Summary ---
Author Organization [facility] Address [address] [place] [address] Care Team Providers Care Investigator Welfare Name Role Phone Rina Agosto MD Primary Care Provider [phone] Reason for Visit * Reason Comments Nutrition Counseling Encounter Details Date Type Department Care Team (Late st Contact Info) Description 06/08/2014 Community Health Team [facility] Adult Primary Care - [address] [phone] Erika Still Social History Tobacco Use Types Packs/Day Years [...] as of this encounter Progress Notes * Erika Still - 06/08/2014 1028 EDT Please schedule pt with RD not health jv baseball coach. Pt is and it is more appropriate for her to be followed by RD. * Erika Still - 06/08/2014 0948 EDT Gladys no-called/no-showed her apt today with [facility]. This would have been our first apt. Pt shares that she was in the ER with cramps until 5:00am. Pt would like to reschedule and plans to call the [facility] later today to do so. documented in this encounter Plan of Treatment [...] on filedocumented in this encounter Care Teams Investigator Welfare Relationship Specialty Start Date End Date Rina Agosto MD [address] [place] [phone] PCP - General 04/27/14 08/07/15 documented as of this encounter
--- OUTSIDE RECORDS SUMMARY | 2024-04-14 20:44 | XMS_ITS | Encounter Summary ---
Author Organization [facility] Address [address] [place] [address] Care Team Providers Care Fractionating Still Operator Name Role Phone Rina Agosto MD Primary Care Provider [phone] Reason for Visit * Reason Comments Emesis During pt state she is 7 weeks and unable to keep anything down due to morning sickness. vss. Encounter Details Date Type Department Care Team (Late st Contact Info) Description 06/24/2014 15:43 EST - 06/24/2014 19:18 EST Emergency [facility] Emergency Department - [address] [address] Rodri Baldwin, PA-C [address] [place] [address], [address] [place] [address] Emergency, MD Jay Nausea and vomiting in (Primary Dx) Discharge Disposition: Home or Self [...] Sign Reading Time Taken Comments Blood Pressure 115/71 06/24/2014 1759 EST Pulse 87 06/24/2014 1559 EST Temperature 36.6 ??C (97.9 ??F) 06/24/2014 1559 EST Respiratory Rate 16 06/24/2014 1759 EST Oxygen Saturation 100% 06/24/2014 1759 EST Inhaled Oxygen Concentration - - Weight 85.7 kg (189 lb) 06/24/2014 1559 EST Height 162.6 cm (5' 4.02) 06/24/2014 1559 EST Body Mass Index 32.43 06/24/2014 1559 EST documented in this encounter Discharge Instructions * Discharge Instructions* Rodri Baldwin PA - 06/24/2014 19:08 EST Zofran for nausea if needed Drink plenty of fluids Regular meals Follow up with your SIGNALS COLLECTOR/ANALYST * Attachments The following attachments cannot be sent through Care Everywhere. * : MORNING SICKNESS (CENTRAL AFRICAN) documented in this encounter Medications at Time [...] 6 hours. 07/26/2014 letrozole (FEMARA) 2.5 mg tabletIndications:Endometr iosis, site unspecified Take 1 Tab by mouth daily. 30 Tab 6 06/02/2014 07/26/2014 MINOCYCLINE HCL (MINOCYCLINE ORAL) Take 100 mg by mouth . 07/01/2014 MONTELUKAST SODIUM (SINGULAIR ORAL) Take by mouth. 4 norethindrone (AYGESTIN) 5 mg tabletIndications:Endometr iosis, site unspecified Take 1 Tab by mouth daily. 30 Tab 6 06/02/2014 07/01/2014 ondansetron (ZOFRAN-ODT) 4 mg disintegrating tablet Take 1 Tab by mouth every 8 hours as needed for Nausea. 10 Tab 0 06/24/2014 06/27/2014 documented as of this encounter Ordered Prescriptions Prescription Sig Dispensed Refills Start Date End Da te ondansetron (ZOFRAN-ODT) 4 mg disintegrating tablet Take 1 Tab by mouth every 8 hours as needed for Nausea. 10 Tab 0 06/24/2014 06/27/2014 documented in this encounter Discharge Disposition Disposition Code Departure Means Destination Home or Self Care Car Home documented in this encounter ED Notes * Hetal Tse RN - 06/24/2014 1917 EST D/c instructions read and reviewed with pt. Pt to follow up with SIGNALS COLLECTOR/ANALYST. Pt verbalized understanding of instructions. Pt left department in stable condition. * Rina Zuñiga RN - 06/24/2014 1853 EST Pt tolerated PO crackers and gingerale without complaints: AZRA Baldwin aware. * Rina Zuñiga RN - 06/24/2014 1752 EST Pt given gingerale and crackers for PO challenge: tolerating. * Rodri Baldwin PA - 06/24/2014 1643 EST DOS: 06/24/2014 Chief Complaint Patient presents with ??? Emesis During pt state she is 7 weeks and unable to keep anything down due to morning sickness. vss. The patient is a 24 y.o. female who presents today with Emesis During HPI Comments: 24-year-old female presents with complaints of nausea and vomiting. Patient states she is approximately 7 weeks and has had nausea throughout most of the . Patient denies fever, chills, vaginal bleeding or urinary symptoms. Patient states she has had some lower abdominal cramping throughout, without any change or increase at this time. Patient states this is her first . The history is provided by the patient. Emesis During Associated symptoms: no chills Abdominal pain: cramping, no recent change. Review of Systems Constitutional: Negative for fever and chills. Gastrointestinal: Positive for nausea and vomiting. Abdominal pain: cramping, no recent change. Genitourinary: Negative for dysuria, hematuria, flank pain, vaginal bleeding and difficulty urinating. All other systems reviewed [...] ??? Heart Disease Maternal Grandfather Vital Signs Vitals Reassessment?: Yes Temp: 36.6 ??C (97.9 ??F) Pulse: 87 Heart Rate: 92 BPM Resp: 16 SpO2: 100 % BP: 115/71 mmHg BP Device: BP Machine Patient Position: Sitting BP Cuff Location: Left arm O2 Device: None (Room air) Physical Exam Nursing note and vitals reviewed. Constitutional: She is oriented to person, place, and time. She appears well- developed and well-nourished. She does not appear ill. No distress. HENT: Head: Atraumatic. Eyes: EOM are normal. Neck: Normal range of motion. Cardiovascular: Normal rate, regular rhythm and normal heart sounds. Pulmonary/Chest: Effort normal and breath sounds normal. No respiratory distress. Abdominal: Soft. Bowel sounds are normal. There is no tenderness. There is no guarding. Neurological: She is alert and oriented to person, place, and time. She has normal strength. Skin: Skin is warm and dry. She is not diaphoretic. Psychiatric: She has a normal mood and affect. Her behavior is normal. Radiology orders: None Imaging Results None Procedures ED Course: A medical screening exam was performed. Patient presents with complaints of nausea and vomiting. States she is approximately 7 weeks . No abdominal tenderness. Denies vaginal bleeding. Has had some cramping throughout, without change. Given IV fluid and Zofran with reported improvement. Tolerating PO. Given return precautions. Will f/u with SIGNALS COLLECTOR/ANALYST. Disposition: Discharged The patient's pain was managed to an adequate level weighing risk vs. benefit of further medications. Upon departure from the Emergency Department, the patient's pain was 3 on a zero to ten scale. Condition at departure from the Emergency Department: Improved ED Current Prescriptions Medication Dispense Auth. Provider ondansetron (ZOFRAN-ODT) 4 mg disintegrating tablet 10 Tab Rodri Baldwin PA [facility] Number of Diagnoses or Management Options Diagnosis management comments: 3 Amount and/or Complexity of Data Reviewed Clinical lab tests: ordered and reviewed Review and summarize past medical records: yes Final diagnoses: Nausea and vomiting in PCP: MD Manny Corrales was available for supervision. 06/24/2014 19:16 No flowsheet data found. documented in this [...] Diagnosis Comments POCT URINE DIPSTICK, CLINITEK STAT 06/24/2014 16:18 EST documented in this encounter Results * POCT URINE DIPSTICK (06/24/2014 16:18 EST) Color YELLOW 06/24/2014 16:24 [facility] Clarity, UA Clear 06/24/2014 16:24 [facility] Glucose Neg Neg 06/24/2014 16:24 [facility] Bilirubin Neg Neg 06/24/2014 16:24 [facility] Ketones Neg Neg 06/24/2014 16:24 [facility] Specific [place] 1.010 1.001 - 1.035 06/24/2014 16:24 [facility] Blood Neg Neg 06/24/2014 16:24 EST [facility] pH 6.0 4.6 - 8.0 06/24/2014 16:24 EST [facility] Protein Neg Neg 06/24/2014 16:24 [facility] Urobilinogen 0.2 0.2 - 1.0 E.U./dl 06/24/2014 16:24 [facility] Nitrite Neg Neg 06/24/2014 16:24 EST [facility] Leuk Esterase Neg Neg 06/24/2014 16:24 [facility] big data admin ID [id number] 06/24/2014 16:24 [facility] Comment:Test performed at Em ergency Department Urine specimen (specimen) URINE / Unknown 06/24/2014 16:18 EST 06/24/2014 16:24 EST Rodri Baldwin PA-C POINT OF CARE TEST O RDERABLES Performing Organization Address City/State/[facility] Co de Phone Number [facility] [address] [place] [address] documented in this encounter Visit Diagnoses Diagnosis Nausea and vomiting in - Primary Unspecified vomiting of , unspecified as to episode of care documented in this encounter Administered Medications Inactive Administered Medications - up to 3 most recent administrations Medication Order MAR Action Action Date Dose Rate Site ondansetron (PF) (ZOFRAN) injection 4 mg 4 mg, intravenous, NOW X1, 1 dose, On Fri06/24/14 at 1645, STAT Given 06/24/2014 17:05 EST 4 mg ondansetron 4 mg ODT tab STARTER PACK 1 Package, oral, NOW X1, 1 dose, On Fri06/24/14 at 1915, STAT Given 06/24/2014 19:10 EST 1 Package sodium chloride 0.9 % BOLUS 1,000 mL 1,000 mL, intravenous, NOW X1, 1 dose, On Fri06/24/14 at 1645, STAT Given 06/24/2014 16:55 EST 1,000 mL documented in this encounter Active and Recently Administered Medications Times are shown in EST. Scheduled Medication Order 06/22/2014 06/23/2014 06/24/2014 ondansetron (PF) (ZOFRAN) injection 4 mg (COMPLETED) 4 mg, intravenous, NOW X1, 1 dose, On Fri06/24/14 at 1645, STAT 1705 (Given - Provid er: Rina Zuñiga RN) ondansetron 4 mg ODT tab STARTER PACK (COMPLETED) 1 Package, oral, NOW X1, 1 dose, On Fri06/24/14 at 1915, STAT 1910 (Given - Provid er: Hetal Tse RN) sodium chloride 0.9 % BOLUS 1,000 mL (COMPLETED) 1,000 mL, intravenous, NOW X1, 1 dose, On Fri06/24/14 at 1645, STAT 1655 (Given - Provid er: Archana Marte)1751 (Completed - Provider: Rina Zuñiga RN) documented in this encounter Orders Nursing Count Last Ordered Date First Orde red Date INSERT PERIPHERAL IV 1 06/24/2014 documented in this encounter Care Teams Fractionating Still Operator Relationship Specialty Start Date End Date Rina Agosto MD [address] [place] [phone] PCP - General 04/27/14 08/07/15 documented as of this encounter
--- OUTSIDE RECORDS SUMMARY | 2024-04-14 20:44 | XMS_ITS | Encounter Summary ---
Author Organization [facility] Address [address] [place] [address] Care Team Providers Care Manager Clinic Name Role Phone Rina Agosto MD Primary Care Provider [phone] Reason for Referral * Consult (Routine) - Closed Specialty Diagnoses / Procedures Referred By Gregory velez Referred To Contact Diagnoses Weight gain Rina Agosto MD [address] [place] [address] Referral ID Status Reason Start Date Expiration Date V isits Requested Visits Authorized [id number] Closed Specialty Services Required 06/03/2014 1 1 Question Answer What areas would you like the CHT to focus on? Nutrition Help Patient's Weight (kg) (1 lb = 0.4536 kg): 84.369 Patient's Height (cm) (1 in = 2.54 cm): 162.6 Comments As we discussed in your visit today, someone will be contacting you from the [facility] Team to schedule an appointment with you. If you do not hear from the C[facility] within a week please call the [facility] Team at [phone]. * Consult (Routine) - Closed Specialty Diagnoses / Procedures Referred By Gregory t Referred To Contact Diagnoses Depression Rina Agosto MD [address] [place] [address] Referral ID Status Reason Start Date Expiration Date V isits Requested Visits Authorized [id number] Closed Specialty Services Required 06/03/2014 1 1 Question Answer Reason for Request: 24yo woman with h/o depression and anxety, chronic pain Comments [facility] Reason for Visit * Reason Comments New Patient Visit Neck Pain x4days, into upper b ack. Does not recall any injury. Has happened in the past and they told her then that she had done it in her sleep. Encounter Details Date Type Department Care Team (Late st Contact Info) Description 06/03/2014 14:[address] [facility] Adult Primary Care - [address] [address] Rina Agosto MD [address] [place] [phone] Depression (Primary Dx); Weight gain; Routine general medical examination at a health care facility; Neck pain; Endometriosis Social History Tobacco Use Types Packs/Day Years [...] Reading Time Taken Comments Blood Pressure 114/70 06/03/2014 1359 EDT Pulse 80 06/03/2014 1359 EDT Temperature 36.3 ??C (97.4 ??F) 06/03/2014 1359 EDT Respiratory Rate 16 06/03/2014 1359 EDT Oxygen Saturation - - Inhaled Oxygen Concentration - - Weight 84.4 kg (186 lb) 06/03/2014 1359 EDT Height 162.6 cm (5' 4) 06/03/2014 1359 EDT Body Mass Index 31.93 06/03/2014 1359 EDT documented in this encounter Patient Instructions * Patient Instructions* Rina Agosto MD - 06/03/2014 14:40 EDT [facility] [phone] Cathleen Caro [phone] documented in this encounter Ordered Prescriptions Prescription Sig Dispensed Refills Start Date End Da te cyclobenzaprine (FLEXERIL) 5 mg tablet Take 1-2 Tabs by mouth every 8 hours as needed for Muscle Spasms. 30 Tab 1 06/03/2014 07/01/2014 documented in this encounter Progress Notes * Rina Agosto MD - 06/03/2014 1414 EDT Patient ID: Gladys Quintanilla is a 24 y.o. y.o. 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 She is engaged andlives with her fiance. Current exercise: aerobics. Current diet: unhealthy diet in general. Stress concerns are: pain Functional or impairment concerns are: none. Her home environment is safe. Her activities of daily living are normal. Subjective: HPI: Ms. Quintanilla presents to establish care. She is here today with her fiance. 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 They were thinking about starting a family, but havedecided to wait until she has finished school. In addition to establishing care, she would like to discuss the following issues: Neck pain: awoke with pain 4 days ago. Using tylenol and ibuprofen (800 q4h, 1000mg q4), ice and heat. Could move neck better yesteray. Today, upper back is involved. Mostly on right, some pain on left. Gentle stretching made it worse. Pain radiates down right arm, not to hand. No numbness or tingling in hands. Cannot recall a specific injury, no lifting, no trauma. Had migraine first two days. Weight gain: Has gained 20lbs over the past 3 months. Not exercising as much due to various pain and work schedule. Eating a lot of fast food, though trying to limit calories. Unable to provide specific dietary intake information. Goal weight 145lbs Mood: Has a history of depression reportedly treated in the past with seroquel. Thinks she has rapid cycling bipolar disorder as she feels that her moods are very labile. Currently under a lot of stress. No SI/HI. Sleeping well. Happy in her current relationship. Endometriosis: Significant pelvic pain. Has been seen by gynecology and will start hormonal therapyas soon as her next paycheck comes. Patient Active Problem List Diagnosis Date Noted [...] Maternal Grandmother ??? Heart Disease Maternal Grandfather Current Outpatient Prescriptions Medication Sig ??? acetaminophen (TYLENOL) 325 mg tablet Take 325 mg by mouth every 6 hours. ??? albuterol (VENTOLIN HFA) 90 mcg/actuation inhaler Inhale 2 Puffs as directed every 4 hours as needed for Wheezing. ??? cyclobenzaprine (FLEXERIL) 5 mg tablet Take 1-2 Tabs by mouth every 8 hours as needed for Muscle Spasms. ??? ibuprofen (MOTRIN) 200 mg tablet Take 200 mg by mouth every 6 hours. ??? letrozole (FEMARA) 2.5 mg tablet Take 1 Tab by mouth daily. ??? MINOCYCLINE HCL (MINOCYCLINE ORAL) Take 100 mg by mouth . ??? MONTELUKAST SODIUM (SINGULAIR ORAL) Take by mouth. ??? norethindrone (AYGESTIN) 5 mg tablet Take 1 Tab by mouth daily. Allergies Allergen Reactions ??? Tramadol Nausea Only Dizziness History Substance Use Topics ??? Smoking status: Former Smoker -- 0.25 packs/day Quit date: 01/01/2014 ??? Smokeless tobacco: Never Used ??? Alcohol Use: Yes Comment: rare, once a month Review of Systems: System Neg Pos Comments Constitutional x Weight gain Eyes x ENT x Cardiovascular x Pulmonary x Gastrointestinal x Genitourinary x Pelvic pain Musculoskeletal x Neck pain Skin/breast x Neurological x Psychiatric x Anxiety, stress Endocrine x Hematologic Lymphatic x Allergic Immunologic x Depression Screen: PHQ-2: Over the past two weeks, how often has the patient been bothered by any of the following problems? Not at all Several days More than 1/2 of the days Nearly every day 0 1 2 3 Little interest or pleasure in doing things: x Feeling down, depressed, or hopeless: x Total point score (cutoff 3): 1 Objective: Physical Examination: BP 114/70 Pulse 80 Temp(Src) 36.3 ??C (97.4 ??F) (Tympanic) Resp 16 Ht 162.6 cm (64) Wt 84.369 kg (186 lb) BMI 31.91 kg/m2 LMP 05/08/2014 General: Alert, cooperative, no distress. Head: Normocephalic, without obvious abnormality. Eyes: Conjunctivae clear. PERRL, EOMs intact. Ears: Normal TMs and external ear canals both ears. Hearing grossly nl. Nose: Nares normal. Septum midline. Mucosa normal. No drainage or sinus tenderness. Throat: Lips, mucosa, and tongue normal. Teeth and gums normal. Neck: Supple, symmetrical, trachea midline, no adenopathy, thyroid: no enlargement, tenderness or nodules, no carotid bruit and no JVD. Back: Symmetric, no curvature. No spinal or CVA tenderness. Lungs: Clear to auscultation bilaterally. Chest wall: No tenderness or deformity. Heart: Regular rate and rhythm, S1, S2 normal, no systolic murmur, no click, rub or gallop. Abdomen: Soft, non-tender. Bowel sounds normal. No masses, No organomegaly, no bruits or evidence for aneurysm. Musculoskeletal: No joint swelling, effusion or redness. Cervical paraspinal muscles TTP. Limited ROM in neck 2/2 pain Pulses: 2+ and symmetric all extremities. Skin: Skin color, texture, turgor normal. No rashes or suspicious lesions. Neurologic: Strength and sensation wnl in UE LABS: [facility] [phone] [place] [phone] Assessment: Ms. Quintanilla presents to establish care. Her Health Maintenance activities are largely up-to-date. Shehas received a flu shot. She is due for Pap and Tdap and will have these both done at next visit Neck pain: muscle strain/spasm. PT would be helpful once patient has insurance Weight gain: suspect 2/2 excess caloric intake and limited exercise. Depression: unclear what prior psych diagnosis has been. I do not think patient is in need of pharmacologic therapy at this time but would certainly benefit from therapy for chronic pain and anxiety Endometriosis: stable, will wait to see how she does on hormonal therapy Plan: Depression - Amb Consult/Follow Up Psychology Weight gain - Amb Consult/Follow Up Community Care Team Neck pain - cyclobenzaprine (FLEXERIL) 5 mg tablet; Take 1-2 Tabs by mouth every 8 hours as needed for MuscleSpasms. - Patient counseled not to exceed acetaminophen 4000mg PO daily - Heat, rest, massage Endometriosis - Continue to follow with pro shop attendant Follow-up in 3 months for pap and Tdap Recommendations: Health Maintenance Topic Date Due ??? Hpv Vaccines (##1) 2001 ??? Behavioral Health Screen 2002 ??? Pertussis (Adult) Immunization 02/08/2008 ??? Tetanus (Adult) Immunization 02/08/2008 ??? Hiv Screening 02/08/2008 ??? Preventative Care Visit 02/08/2008 ??? Influenza (Adult/pediatric) Immunization: Seasonal 03/11/2014 ??? Chlamydia Screening 05/09/2015 ??? Cervical Cancer Screening 06/17/2015 - Regular eye exams to check visual acuity, screen for glaucoma and other eye problems. - Avoid smoking or other tobacco products such as chewing tobacco and snuff. - Alcohol to be used only in moderation, preferably not on a daily basis. - Wearing seat belts. This has been shown in many studies to prevent injuries and fatalities in auto accidents. This is not a minor issue, as trauma is the leading cause of and disability in people under the age of 40. - Wearing helmets. Helmet use when riding a bike, skiing , snowmobiling, etc. is critical to preventing head injury. - Healthy eating. This means eating a diet that is low in fat and junk food, high in fiber, fruits and vegetables. Women should pay special attention to calcium and vitamin D to prevent osteoporosis. - Regular exercise. As little as thirty minutes of aerobic exercise three times per week helps prevent heart disease, hypertension, osteoporosis as well as improving endurance and energy level. Dailyaerobic exercise is best! - Safe sex. Sexually transmitted diseases, hepatitis and HIV infection are all, to a large extent preventable. - Regular dental visits, usually twice/year. - Minimize suntanning and use sun block when in the sun. Avoid tanning beds. Sun exposure is directly linked not only to skin cancer but also to premature wrinkling of the skin. Patient Education Provided: on the various medical [...] change are documented above. Outcomes: verbalized understanding Today's [id number] visit time was 60 minutes with 30 minutes spent in counseling and/or coordination of care for the problems listed above. documented in this encounter Plan of Treatment Scheduled Referrals Name Type Priority Associated Diagnoses Order Schedule AMB CONS/FOLLOW UP PSYCHOLOGY Outpatient Referral Routine Depression Ordered: 06/03/2014 AMB CONS/FOLLOW UP [facility]ITY [facility] TEAM Outpatient Referral Routine Weight gain Ordered: 06/03/2014 documented as of this encounter Goals Goal Patient Goal Type Associated Problems Recent Progress Patient-Stated? Author Blood Pressure < 130/80 Blood Pressure 118/78(2017 16:01 EDT) No Rina Agosto MD Weight Loss General Yes Rina Agosto MD Note: Goal = 145lbs documented as of this encounter Visit Diagnoses Diagnosis Depression- Primary Depressive disorder, not elsewhere classified Weight gain Abnormal weight gain Routine general medical examination at a health care facility Neck pain Cervicalgia Endometriosis Endometriosis, site unspecified documented in this encounter Historical Medications * This list may reflect changes made after this encounter. Medication Sig Dispensed Refills Start Date End Date acetaminophen (TYLENOL) 325 mg tablet Take 325 mg by mouth every 6 hours. Reported on 12/20/2016 02/22/2017 ibuprofen (MOTRIN) 200 mg tablet Take 200 mg by mouth every 6 hours. 07/26/2014 added in this encounter Care Teams Manager Clinic Relationship Specialty Start Date End Date Rina Agosto MD [address] [place] [address] PCP - General 04/27/14 08/07/15 documented as of this encounter
--- OUTSIDE RECORDS SUMMARY | 2024-04-14 20:44 | XMS_ITS | Encounter Summary ---
Author Organization [facility] Address [address] [place] [address] Care Team Providers Care Transitional Studies Instructor Name Role Phone Rina Agosto MD Primary Care Provider [phone] Reason for Visit * Reason Onset Date Comments Diarrhea 07/25/2014 Encounter Details Date Type Department Care Team (Late st Contact Info) Description 07/25/2014 Telephone [facility] Adult Primary Care - [address] [address] Rina Agosto MD [address] [place] [phone] Diarrhea Social History Tobacco Use Types Packs/Day [...] Telephone Encounter - Katia Ramey RN - 07/25/2014 5395 EST Spoke with Gladys: Frequent episodes of watery diarrhea.. Small in amount and can occur about once an hour. Started on Friday night. Had one hard BM then followed by loose stool. A couple of hours later another formed BM and then the watery stools started. Has abdominal cramping with the stools otherwise abdomin is not tender. No fever. No N/V Tried the BRAT diet without effect Taking fluids Only thing different in her diet is that she is taking a new vitamin Is concerned with the continued diarrhea while being OV with GLAZE SPRAYER made for 07/26 To continue with fluids and taking diet as tolerated * Telephone Encounter - June [place] - 07/25/2014 1506 EST Reason for Call: Diarrhea Summary/Symptoms: Patient experiencing watery diarrhea since Friday evening - occurs constantly - doesn't matter if she has just eaten or not. She is drinking a lot of water & Power Aid yesterdayfor additional hydration. She also has abd cramping, no fever or body aches. Patient is almost 12 wks - she has a monitor and does hear the heartbeat Onset and Duration? Friday07-22-14 Appointment Offered? No - please call to advise June [place] 07/25/2014 15:06 documented in this encounter Plan of Treatment [...] on filedocumented in this encounter Care Teams Transitional Studies Instructor Relationship Specialty Start Date End Date Rina Agosto MD [address] [place] [phone] PCP - General 04/27/14 08/07/15 documented as of this encounter
--- OUTSIDE RECORDS SUMMARY | 2024-04-14 20:44 | XMS_ITS | Encounter Summary ---
Author Organization [facility] Address [address] [place] [address] Care Team Providers Care Oss Architect Name Role Phone Rina Agosto MD Primary Care Provider [phone] Encounter Details Date Type Department Care Team (Late st Contact Info) Description 06/29/2014 9:43 EST - 06/29/2014 23:59 [facility] Hospital Encounter [facility] [phone] Wu Thompson MD [address] [facility], [address] [place] [address] Discharge Disposition: Home or Self [...] as of this encounter Discharge Diagnoses Diagnosis V22.2 PREG STATE, INCIDENTAL[ICD-9-CM] documented in this encounter Medications at Time [...] 6 hours. 07/26/2014 letrozole (FEMARA) 2.5 mg tabletIndications:End ometriosis, site unspecified Take 1 Tab by mouth daily. 30 Tab 6 06/02/2014 07/26/2014 MINOCYCLINE HCL (MINOCYCLINE ORAL) Take 100 mg by mouth . 07/01/2014 MONTELUKAST SODIUM (SINGULAIR ORAL) Take by mouth. 4 norethindrone (AYGESTIN) 5 mg tabletIndications:End ometriosis, site unspecified Take 1 Tab by mouth daily. 30 Tab 6 06/02/2014 07/01/2014 ondansetron (ZOFRAN-ODT) 4 mg disintegrating tablet Take 1 Tab by mouth every 8 hours as needed for Nausea. 30 Tab 1 06/27/2014 07/26/2014 promethazine (PHENERGAN) 12.5 mg tablet Take 1 Tab by mouth every 6 hours as needed for Nausea. 60 Tab 1 06/26/2014 07/18/2014 promethazine (PHENERGAN) [address] 1 Suppository rectally every 6 hours as needed for Nausea. 12 Suppository 2 06/27/2014 07/01/2014 documented as of this encounter Discharge Disposition Disposition Code Departure Means Destination Home or Self Long-Term documented in this encounter Plan of Treatment [...] on filedocumented in this encounter Care Teams Oss Architect Relationship Specialty Start Date End Date Rina Agosto MD [address] [place] [phone] PCP - General 04/27/14 08/07/15 documented as of this encounter
--- OUTSIDE RECORDS SUMMARY | 2024-04-14 20:44 | XMS_ITS | Encounter Summary ---
Author Organization [facility] Address [address] [place] [address] Care Team Providers Care Feed Miller Name Role Phone Rina Agosto MD Primary Care Provider [phone] Reason for Visit * Reason Onset Date Comments Emesis 06/26/2014 Encounter Details Date Type Department Care Team (Late st Contact Info) Description 06/26/2014 Telephone [facility] OBGYN Services - [address] [phone] Anamaria Modi MD [address] [place] [phone] Emesis Social History Tobacco Use Types Packs/Day Years [...] for Nausea. 60 Tab 1 06/26/2014 07/18/2014 documented in this encounter Miscellaneous Notes * Telephone Encounter - Anamaria Modi MD - 06/26/2014 6117 EST Call documentation: Patient currently in her first trimester calls with worsening N&V, recent ED visit for the sameand was given zofran. Still complains of persistent symptoms. Counseled on diet modifications. Continue zofran. Add phenergan 12.5mg q 6 hours prn Prescription sent to pharmacy. Anamaria Modi MD documented in this encounter Plan of Treatment Not on file documented as of this encounter Goals Goal Patient Goal Type Associated Problems Recent Progress Patient-Stated? Author Blood Pressure < 130/80 Blood Pressure 118/78(2017 16:01 EDT) No Rina Agosto MD Weight Loss General Yes Rina Agosto MD Note: Goal = 145lbs documented as of this encounter Visit Diagnoses Diagnosis Hyperemesis gravidarum- Primary Mild hyperemesis gravidarum, unspecified as to episode of care documented in this encounter Care Teams Feed Miller Relationship Specialty Start Date End Date Rina Agosto MD [address] [place] [phone] PCP - General 04/27/14 08/07/15 documented as of this encounter
--- OUTSIDE RECORDS SUMMARY | 2024-04-14 20:45 | XMS_ITS | Encounter Summary ---
Author Organization [facility] Address [address] [place] [address] Care Team Providers Care Funder Name Role Phone Unavailable Primary Care Provider Unavailabl e Encounter Details Date Type Department Care Team (Latest Contact Info) Description 03/04/2008 12:05 EDT Hospital Encounter [facility] [address] [place] [address] Douglas Thurman MD Discharge Disposition: Auto Discharge Social History Tobacco Use Types Packs/Day Years Used Date Smoking Tobacco: Never Assessed Sex and Gender Information Value Date Recorded Sex Assigned at Not on file Gender Identity Not on file Sexual Orientation Not on file documented as of this encounter Discharge Disposition Disposition Code Departure Means Destination Auto Discharge documented in this encounter Plan of Treatment Not on file documented as of this encounter Procedures Procedure Name Priority Date/Time Associated Diagnosis Comments CYTOPATHOLOGY Routine 04/25/2009 0:00 EDT documented in this encounter Results * CYTOPATHOLOGY (04/25/2009 0:00 EDT) Pathology Report: CYTOPATHOLOGY REPORT ? Reports generated via electronic interface contain original data; ? however they are lacking the format of the original report. ? Caution should be taken when reading/interpreti ng unformatted reports. ? Name: ? CRISTOPHER, GLADYS L ? Accession #: ? [id number] ? : ? 1990 (Age: 19) ??F ?Collect Date: ? 04/25/2009 ? Location: ? [facility] ? Receive Date: ? 04/27/2009 ? Provider: ?JODY FORT ANP ? Copy to: ? Specimen/Source: ?Pap Test, Cervix, ThinPrep Imaging System with manual ?? evaluation ? Last Menstrual Period: ? 8/4/09 ? Hormonal/Contracep tive Status: ? Yes: Ortho Evra ? Other: ? HPVA - HPV testing requested if ASC-US on the current ThinPrep Pap test. ? SPECIMEN ADEQUACY ? Satisfactory for Evaluation ? - transformation zone component present ? GENERAL CATEGORIZATION ? Negative for Intraepithelial Lesion or Malignancy ? INTERPRETATION ? Shift in cristine present suggestive of bacterial vaginosis. ? Document reviewed and electronically signed by: ? Lynan Gary, [place](ASCP) ? Report Date: ??05/03/2009 11:18 ? End of Report ? [facility] 04/25/2009 04/27/2009 Jody Camara SUPERVISOR THROWING DEPARTMENT PATHOLOGY ORDERABLES [facility] [address] [place] [address] documented in this encounter Visit Diagnoses Not on filedocumented in this encounter
--- OUTSIDE RECORDS SUMMARY | 2024-04-14 20:45 | XMS_ITS | Encounter Summary ---
Author Organization [facility] Address [address] [place] [address] Care Team Providers Care Coach Mechanic Name Role Phone Amanda Larson MD Primary Care Provider [phone] Reason for Visit * Reason Comments Dizziness pt evaluated saturda y for left flank pain: kidney stone r/o diagnosed with back pain and discharged with flexeril. Pt returns today, no change in the left side pain, dizziness, and generalized body aches. -cough, -vomitting, +diarrhea Encounter Details Date Type Department Care Team (Late st Contact Info) Description 01/10/2014 15:13 EDT - 01/10/2014 18:26 EDT [facility] Emergency Department - Main [place] [address] [place] [phone] Russell Haro PA-C [address] [phone] Emergency, MD Jay Dizziness (Primary Dx) Discharge Disposition: Home or Self Care Social History Tobacco Use Types Packs/Day Years Used Date Smoking Tobacco: Some Days Cigarettes Alcohol Use Standard Drinks/Week Comments Yes 0 (1 standard drink = 0.6 oz pur e alcohol) rare Sex and Gender Information Value Date Recorded Sex Assigned at Not on file Gender Identity Not on file Sexual Orientation Not on file documented as of this encounter Last Filed Vital Signs Vital Sign Reading Time Taken Comments Blood Pressure 120/87 01/10/2014 1700 EDT Pulse 125 01/10/2014 1525 EDT Temperature 36.1 ??C (97 ??F) 01/10/2014 1525 EDT Respiratory Rate 16 01/10/2014 1525 EDT Oxygen Saturation 100% 01/10/2014 1700 EDT Inhaled Oxygen Concentration - - Weight 72.6 kg (160 lb) 01/10/2014 1525 EDT Height 162.6 cm (5' 4) 01/10/2014 1525 EDT Body Mass Index 27.46 01/10/2014 1525 EDT documented in this encounter Discharge Instructions * Discharge Instructions* Russell Haro - 01/10/2014 18:23 EDT Plenty of rest tonight. Drink lots of fluids I recommend following up with primary care physician in one to 2 days unless symptoms completely resolve Return here in the meantime with any worsening symptoms documented in this encounter Medications at Time of Discharge Medication Sig Dispensed Refills Start Date End Date albuterol (VENTOLIN HFA) 90 mcg/actuation inhaler Inhale 2 Puffs as directed every 4 hours as needed for Wheezing. 11/10/2014 fluticasone-salmeterol (ADVAIR) 100-50 mcg/dose diskus inhaler Inhale 1 Puff as directed 2 times daily. 05/09/2014 MINOCYCLINE HCL (MINOCYCLINE ORAL) Take 100 mg by mouth . 07/01/2014 MONTELUKAST SODIUM (SINGULAIR ORAL) Take by mouth. 4 naproxen (NAPROSYN) 500 mg tablet Take 1 Tab by mouth 2 times daily. 20 Tab 0 09/07/2013 05/09/2014 documented as of this encounter Discharge Disposition Disposition Code Departure Means Destination Home or Self Care Walk-out documented in this encounter ED Notes * Russell Haro - 01/18/2014 0753 EDT DOS: 01/10/2014 Chief Complaint Patient presents with ??? Dizziness pt evaluated friday for left flank pain: kidney stone r/o diagnosed with back pain and dischargedwith flexeril. Pt returns today, no change in the left side pain, dizziness, and generalized body aches. -cough, -vomitting, +diarrhea The patient is a 23 y.o. female who presents today with Dizziness HPI Patient is a 23-year-old female with history of asthma who presented here on Friday with left lower back pain, had diagnosis of back strain, has been using Motrin and Flexeril. She returns today with continued pain in the left lower back area. Reports a sensation of dizziness in the morning. She denies any pain radiating into the extremities and has not had any associated urinary symptoms or fever Review of Systems Constitutional: Negative for fever and chills. HENT: Negative for neck stiffness. Eyes: Negative for visual disturbance. Respiratory: Negative for shortness of breath. Cardiovascular: Negative for chest pain. Gastrointestinal: Positive for diarrhea. Negative for nausea, vomiting, abdominal pain and constipation. Genitourinary: Negative for dysuria. Musculoskeletal: Positive for back pain. Skin: Negative for rash. Neurological: Negative for headaches. Psychiatric/Behavioral: Negative for confusion. All other systems reviewed and are negative. Past Medical History Diagnosis Date ??? Asthma ??? Endometriosis History reviewed. No pertinent past surgical history. Allergies Allergen Reactions ??? Tramadol Nausea Only Dizziness History Substance Use Topics ??? Smoking status: Current Some Day Smoker -- 0.25 packs/day ??? Smokeless tobacco: Not on file ??? Alcohol Use: Yes Comment: rare History reviewed. No pertinent family history. Vital Signs Temp: 36.1 ??C (97 ??F) Temp src: Tympanic Pulse: 125 Resp: 16 SpO2: 100 % BP: 120/87 mmHg BP Device: BP Machine Patient Position: Sitting BP Cuff Location: Right arm O2 Device: None (Room air) Physical Exam Nursing note and vitals reviewed. Constitutional: She is oriented to person, place, and time. She appears well- developed and well-nourished. HENT: Head: Normocephalic and atraumatic. Nose: Nose normal. Neck: Normal range of motion. Neck supple. No tracheal deviation present. Cardiovascular: Normal rate, regular rhythm and normal heart sounds. Pulmonary/Chest: Breath sounds normal. No respiratory distress. Abdominal: Soft. Bowel sounds are normal. She exhibits no distension. There is no tenderness. Musculoskeletal: Normal range of motion. There is pain to palpation in the left lumbar paraspinous muscles Neurological: She is alert and oriented to person, place, and time. She has normal strength and normal reflexes. No cranial nerve deficit or sensory deficit. Coordination normal. Skin: No rash noted. Psychiatric: She has a normal mood and affect. Radiology orders: None Imaging Results None Procedures ED Course: A medical screening exam was performed. Patient has findings most consistent with musculoskeletal etiology the lower back. She is neurologically intact. Patient describes morning of lightheadedness, does not sound of any significant etiology Disposition: Discharged The patient's pain was managed to an adequate level weighing risk vs. benefit of further medications. Upon departure from the Emergency Department, the patient's pain was 5 on a zero to ten scale. Condition at departure from the Emergency Department: Stable Discharge Medication List as of 01/10/2014 18:23 CONTINUE these medications which have NOT CHANGED Details albuterol (VENTOLIN HFA) 90 mcg/actuation inhaler Inhale 2 Puffs as directed every 4 hours as needed for Wheezing., Wheezing, Historical Med fluticasone-salmeterol (ADVAIR) 100-50 mcg/dose diskus inhaler Inhale 1 Puff as directed 2 times daily., Historical Med MINOCYCLINE HCL (MINOCYCLINE ORAL) Take by mouth., Historical Med MONTELUKAST SODIUM (SINGULAIR ORAL) Take by mouth., Historical Med naproxen (NAPROSYN) 500 mg tablet Take 1 Tab by mouth 2 times daily., Disp-20 Tab, R-0, Print MDM Number of Diagnoses or Management Options Dizziness: Diagnosis management comments: 3 Final diagnoses: Dizziness PCP: Amanda Street 01/18/2014 7:52 * David Vitale RN - 01/10/2014 1822 EDT D: Patient discharged home per PA. A: IV removed, catheter tip intact. RN reviewed discharge instructions and medications with patient R: Patient expressed good understanding of discharge instructions. Patient have no questions at this time. Patient dressed independently. Patient asked to f/u with pcp and to return to ed for worsening s/s * David Vitale RN - 01/10/2014 1637 EDT Blood drawn via saline lock per protocol, tiger and purple tube(s) sent to lab per order. documented in this encounter Plan of Treatment Not on file documented as of this encounter Procedures Procedure Name Priority Date/Time Associated Diagnosis Comments POCT TEST, VISUAL READ Routine 01/10/2014 17:25 EDT POCT URINE DIPSTICK, CLINITEK Routine 01/10/2014 17:15 EDT DIFFERENTIAL STAT 01/10/2014 16:33 EDT COMPLETE BLOOD COUNT STAT 01/10/2014 16:33 EDT COMPLETE BLOOD COUNT AND DIFFERENTIAL STAT 01/10/2014 16:33 EDT BASIC METABOLIC PANEL (BMP) STAT 01/10/2014 16:33 EDT documented in this encounter Results * POCT URINE TEST (01/10/2014 17:25 EDT) Test, Urine, POC Negative Reference Range, Negative Control Line Present Yes Background Clear? Yes Urine specimen (specimen) 01/10/2014 17:25 EDT Russell Birdie Haro PA-C POINT OF CARE TEST ORDERABLES * POCT URINE DIPSTICK (01/10/2014 17:15 EDT) Color YELLOW [facility] Clarity, UA Clear [facility] Glucose Neg Neg [facility] Bilirubin Neg Neg [facility] Ketones Neg Neg [facility] Specific [facility] 1.020 1.001 - 1.035 [facility] Blood Neg Neg [facility] pH 7.0 4.6 - 8.0 [facility] Protein Neg Neg [facility] Urobilinogen 0.2 0.2 - 1.0 E.U./dl [facility] Nitrite Neg Neg [facility] Leuk Esterase Neg Neg [facility] proof operator ID [id number] [facility] Comment:Test performed at [facility]ency Department Urine specimen (specimen) 01/10/2014 17:15 EDT 01/10/2014 17:25 EDT Russell Haro PA-C POINT OF CARE TEST ORDERABLES Performing Organization Address [facility] de Phone Number [facility] [address] [place] [address] * DIFFERENTIAL (01/10/2014 16:33 EDT) % Neutrophils 65.2 45.5 - 79.7 % [facility] % Lymphocytes 25.1 15.0 - 46.8 % [facility] % Monocytes 7.8 1.8 - 12.0 % [facility] % Eosinophils 1.3 0.6 - 6.9 % [facility] % Basophils 0.6 0.2 - 1.4 % [facility] ABS Neutrophils 5.18 2.20 - 8.85 K/cmm [facility] ABS Lymphs 1.98 1.09 - 3.30 K/cmm [facility] ABS Monocytes 0.61 0.1 - 0.8 K/cmm [facility] ABS Eosinophils 0.10 0.03 - 0.61 K/cmm [facility] ABS Basophils 0.05 0.01 - 0.11 K/cmm [facility] Type of Diff: Automated [facility] 01/10/2014 16:3 3 EDT 01/10/2014 16:39 EDT Russell Haro PA-C HEMATOLOGY & PF4 OR DERABLES Performing Organization Address [facility] de Phone Number [facility] [address] [place] [address] * HEMAGRAM (01/10/2014 16:33 EDT) WBC 7.92 4.0 - 12.4 K/cmm [facility] RBC 4.94 3.86 - 5.04 M/cmm [facility] Hemoglobin 14.3 11.6 - 15.2 gm/dl [facility] HCT 41.1 34.9 - 44.4 % [facility] MCV 83 81 - 98 fl [facility] MCH 28.9 26.7 - 33.3 pg [facility] MCHC 34.7 32.1 - 35.9 gm/dl [facility] PLT 232 141 - 320 K/cmm [facility] RDW-CV 12.3 11.7 - 14.6 % [facility] 01/10/2014 16:3 3 EDT 01/10/2014 16:39 EDT Russell Birdie Haro PA-C HEMATOLOGY & PF4 OR DERABLES Performing Organization Address [facility] Co de Phone Number [facility] [address] [place] [address] * (ABNORMAL) BASIC METABOLIC PANEL (01/10/2014 16:33 EDT) Sodium 139 136 - 145 mEq/L [facility] Potassium 4.3 3.5 - 5.0 mEq/L [facility] Chloride 105 96 - 110 mEq/L [facility] CO2 23(L) 24 - 32 mEq/L [facility] BUN 12 10 - 26 mg/dl [facility] Creatinine 0.50(L) 0.52 - 1.04 mg/dl [facility] GFR, Calculated >60 >60 ml/min/1.7 3m2 [facility] Calcium 9.3 8.5 - 10.5 mg/dl [facility] Calculated Calcium 9.7 8.5 - 10.5 mg/dl [facility] Glucose, Serum 85 70 - 100 mg/dl [facility] Fasting? Unknown [facility] Blood specimen (specimen) 01/10/2014 16:33 EDT 01/10/2014 16:39 EDT Russell Haro PA-C CHEMISTRY & BLOOD G ORDERABLES Performing Organization Address [facility] Co de Phone Number [facility] [address] [place] [address] documented in this encounter Visit Diagnoses Diagnosis Dizziness- Primary Dizziness and giddiness documented in this encounter Administered Medications Inactive Administered Medications - up to 3 most recent administrations Medication Order MAR Action Action Date Dose Rate Site sodium chloride 0.9 % BOLUS 2,000 mL 2,000 mL, intravenous, NOW X1, 1 dose, On Fri01/10/14 at 1615, STAT Given 01/10/2014 16:09 EDT 2,000 mL documented in this encounter Active and Recently Administered Medications Times are shown in EDT. Scheduled Medication Order 01/08/2014 01/09/2014 01/10/2014 sodium chloride 0.9 % BOLUS 2,000 mL (COMPLETED) 2,000 mL, intravenous, NOW X1, 1 dose, On Fri01/10/14 at 1615, STAT 1609 (Given - Provid er: David Vitale RN)1821 (Completed - Provider: David Vitale RN) documented in this encounter Orders Medications Ordered That Jean ht Not Have Been Administered Count Last Ordered Date First Ordered Date sodium chloride 0.9 % BOLUS 2,000 mL 1 09/2013 documented in this encounter Care Teams Coach Mechanic Relationship Specialty Start Date End Date Amanda Larson MD [address] [place] [address] [place] [address] PCP - General 10/04/13 04/26/14 documented as of this encounter
--- OUTSIDE RECORDS SUMMARY | 2024-04-14 20:45 | XMS_ITS | Encounter Summary ---
Author Organization [facility] Address [address] [place] [address] Care Team Providers Care Wagon Drill Operator Name Role Phone Amanda Larson MD Primary Care Provider [phone] Reason for Visit * Reason Comments Electric Shock pt experienced an el ectric shock while plugging in a hospital bed at [facility]. pt reports pain 5/10 through L arm. pt reports she had red areas but these have resolved, incident 5pm. Encounter Details Date Type Department Care Team (Late st Contact Info) Description 11/16/2013 18:33 EDT - 11/16/2013 21:20 EDT Emergency [facility] Emergency Department - Main [place] [address] [place] [address] Carmelo Momin MD [address] [place] [phone] Emergency, MD Jay Electrical shock of hand (Primary Dx) Discharge Disposition: Home or Self [...] Sign Reading Time Taken Comments Blood Pressure 123/79 11/16/2013 2116 EDT Pulse 96 11/16/2013 1838 EDT Temperature 36.2 ??C (97.2 ??F) 11/16/2013 1838 EDT Respiratory Rate 16 11/16/2013 2116 EDT Oxygen Saturation 99% 11/16/2013 2116 EDT Inhaled Oxygen Concentration - - Weight 68 kg (150 lb) 11/16/2013 1838 EDT Height 162.6 cm (5' 4) 11/16/2013 1838 EDT Body Mass Index 25.75 11/16/2013 1838 EDT documented in this encounter Discharge Instructions * Discharge Instructions* Carmelo Momin MD - 11/16/2013 21:04 EDT You may return to work. * Attachments The following attachments cannot be sent through Care Everywhere. * ELECTRICAL SHOCK (OCCITAN) documented in this encounter Medications at Time [...] documented in this encounter ED Notes * Carmelo Momin MD - 11/16/2013 2100 EDT DOS: 11/16/2013 Chief Complaint Patient presents with ??? Electric Shock pt experienced an electric shock while plugging in a hospital bed at [facility]. pt reports pain 5/10 through L arm. pt reports she had red areas but these have resolved, incident 5pm. The patient is a 23 y.o. female who presents today with Electric Shock HPI Comments: Pt with no complaints after being sent in from work because she got an electrical shock while plugging in a bed into a standard electrical socket. No cp, palp. No pain. No lightheadedness or syncope. The history is provided by the patient. Review of Systems Constitutional: Negative for fever and chills. HENT: Negative for neck pain and neck stiffness. Eyes: Negative for visual disturbance. Respiratory: Negative for shortness of breath. Cardiovascular: Negative for chest pain and palpitations. Gastrointestinal: Negative for nausea, vomiting and abdominal pain. Skin: Negative for rash and wound. Neurological: Negative for syncope and light-headedness. Psychiatric/Behavioral: Negative for behavioral problems. Past Medical History Diagnosis Date ??? Asthma ??? Endometriosis History reviewed. No pertinent past surgical history. Allergies Allergen Reactions ??? Tramadol Nausea Only Dizziness History Substance Use Topics ??? Smoking status: Current Some Day Smoker -- 0.25 packs/day ??? Smokeless tobacco: Not on file ??? Alcohol Use: Yes Comment: rare No family history on file. Vital Signs Vitals Reassessment?: Yes Temp: 36.2 ??C (97.2 ??F) Temp src: Tympanic Pulse: 96 Heart Rate: 98 BPM Resp: 16 SpO2: 99 % BP: 123/79 mmHg BP Device: BP Machine Patient Position: [...] medical screening exam was performed. Patient presents to the emergency department after getting off shock from a wall out of work. She had no symptoms at the time, except for some paresthesias in her hand and arm that quickly resolved. No chest pain or shortness of breath. No other complaints. Otherwise healthy. Has been on telemetry her without event. Discharging. Disposition: Discharged The patient's pain was managed to an adequate level weighing risk vs. benefit of further medications. Upon departure from the Emergency Department, the patient's pain was 0 on a zero to ten scale. Condition at departure from the Emergency Department: Improved Discharge Medication List as of 11/16/2013 21:04 CONTINUE these medications which have NOT CHANGED [...] MDM Number of Diagnoses or Management Options Electrical shock of hand: new, no workup Final diagnoses: Electrical shock of hand PCP: Amanda Larson 11/20/2013 17:02 documented in this encounter Plan of Treatment Not on file documented as of this encounter Visit Diagnoses Diagnosis Electrical shock of hand- Primary Electrocution and nonfatal effects of electric current documented in this encounter Care Teams Wagon Drill Operator Relationship Specialty Start Date End Date Amanda Larson MD [address] [place] [address] [place] [address] PCP - General 10/04/13 04/26/14 documented as of this encounter
--- OUTSIDE RECORDS SUMMARY | 2024-04-14 20:45 | XMS_ITS | Encounter Summary ---
Author Organization [facility] Address [address] [place] [address] Care Team Providers Care Artificial Inseminator Name Role Phone Unavailable Primary Care Provider Unavailabl e Encounter Details Date Type Department Care Team (Late st Contact Info) Description 01/18/2008 Results Only [facility] - [place] [address] [place] [address] Marge Aguilar MD [address] [place] [phone] Social History Tobacco Use Types Packs/Day Years Used Date Smoking Tobacco: Never Assessed Sex and Gender Information Value Date Recorded Sex Assigned at Not on file Gender Identity Not on file Sexual Orientation Not on file documented as of this encounter Plan of Treatment Not on file documented as of this encounter Procedures Procedure Name Priority Date/Time Associated Diagnosis Comments CYTOPATHOLOGY Routine 01/18/2008 0:00 EDT documented in this encounter Results * CYTOPATHOLOGY (01/18/2008 0:00 EDT) Pathology Report: CYTOPATHOLOGY REPORT Reports generated via electronic interface contain original data; however they are lacking the format of the original report. Caution should be taken when reading/interpreti ng unformatted reports. Name: ? GLADYS NICHOLAS ? Accession #: ? [id number] : ? 1990 (Age: 17) ??F ?Collect Date: ? 01/18/2008 Location: ? [facility] ? Receive Date: ? 01/19/2008 Provider: ?MARGE AGUILAR MD Copy to: ? Specimen/Source: ?ThinPrep Pap Test, Cervix, processed on [employer] ThinPrep Imaging System, with manual evaluation Last Menstrual Period: ? 01/03/08 Hormonal/Contracep tive Status: ? Yes: Trinessa Other: ? HPVA - HPV testing requested if ASC-US on the current ThinPrep Pap test. ? SPECIMEN ADEQUACY ? Satisfactory for Evaluation - transformation zone component present GENERAL CATEGORIZATION ? Negative for Intraepithelial Lesion or Malignancy INTERPRETATION ? Fungal organisms present morphologically consistent with Jessika species. ? Document reviewed and electronically signed by: ? Ashley Kim, SCT(ASCP) ? Report Date: ??01/21/2008 09:55 End of Report [facility] 01/18/2008 01/19/2008 Marge Aguilar MD PATHOLOGY ORDERABLE S [facility] [address] [place] [address] documented in this encounter Visit Diagnoses Not on filedocumented in this encounter
--- OUTSIDE RECORDS SUMMARY | 2024-04-14 20:45 | XMS_ITS | Encounter Summary ---
Author Organization [facility] Address [address] [place] [address] Care Team Providers Care Punchboard Stuffer Name Role Phone Unavailable Primary Care Provider Unavailabl e Encounter Details Date Type Department Care Team (Late st Contact Info) Description 06/11/2005 Results Only [facility] - [place] [address] [place] [address] Jody Camara, [address] [id number] Social History Tobacco Use Types Packs/Day Years Used Date Smoking Tobacco: Never Assessed Sex and Gender Information Value Date Recorded Sex Assigned at Not on file Gender Identity Not on file Sexual Orientation Not on file documented as of this encounter Plan of Treatment Not on file documented as of this encounter Procedures Procedure Name Priority Date/Time Associated Diagnosis Comments CYTOPATHOLOGY Routine 06/11/2005 0:00 EST documented in this encounter Results * CYTOPATHOLOGY (06/11/2005 0:00 EST) Pathology Report: CYTOPATHOLOGY REPORT Reports generated via electronic interface contain original data; however they are lacking the format of the original report. Caution should be taken when reading/interpreti ng unformatted reports. Name: ? GLADYS NICHOLAS ? Accession #: ? [id number] : ? 1990 (Age: 15) ??F ?Collect Date: ? 06/11/2005 Location: ? [facility] ? Receive Date: ? 06/13/2005 Provider: ?JODY BOWMAN Copy to: ? Specimen/Source: ?ThinPrep Pap Test, Vagina/Cervix/Endo cervix, processed on [employer] ThinPrep Imaging System, with manual evaluation Last Menstrual Period: ? 05/16/05 Hormonal/Contracep tive Status: ? Yes: Leulm 28 Other: ? HPVA - HPV testing requested if ASC-US on the current ThinPrep Pap test. ? SPECIMEN ADEQUACY ? Satisfactory for Evaluation - transformation zone component present GENERAL CATEGORIZATION ? Negative for Intraepithelial Lesion or Malignancy ? Document reviewed and electronically signed by: ? GREGOR Tucker(ASCP) ? Report Date: ??06/19/2005 10:01 End of Report [facility] 06/11/2005 06/13/2005 Jody Camara EMT B PATHOLOGY ORDERABLES [facility] [address] [place] [address] documented in this encounter Visit Diagnoses Not on filedocumented in this encounter
--- OUTSIDE RECORDS SUMMARY | 2024-04-14 20:45 | XMS_ITS | Encounter Summary ---
Author Organization [facility] Address [address] [place] [address] Care Team Providers Care Outsole Flexer Name Role Phone Unavailable Primary Care Provider Unavailabl e Encounter Details Date Type Department Care Team (Late st Contact Info) Description 03/04/2008 Before PRISM Converted Visit ([place]) [facility] - [place] [address] [place] [address] Douglas Lee MD Social History Tobacco Use Types Packs/Day Years Used Date Smoking Tobacco: Never Assessed Sex and Gender Information Value Date Recorded Sex Assigned at Not on file Gender Identity Not on file Sexual Orientation Not on file documented as of this encounter Procedure Notes * Douglas Lee MD - 05/08/2009 1531 EDT [facility] Colonoscopy Procedure Report Physician: DOUGLAS LEE MD Referring Physician: RUBI KAMARA MD Exam Date:03/04/2008 Introduction: A 18 year old female patient presents for an outpatient Colonoscopy ?? Abdominal pain (789.00). ?? Change in bowel habits (787.99). Consent: The benefits, risks, and alternatives to the procedure were discussed and informed consentwas obtained from the patient. Preparation: pulse oximetry and blood pressure were monitored throughout the procedure. ASA Classification: Class 1 - Patient has no organic, physiologic, biochemical, or psychiatric disturbance. Mallampati Classification: Class 1 - Uvula, faucial pillars, soft palate visible. Medications: ?? Propofol administered by anesthesia. Rectal Exam: Normal rectal exam. The colonoscope was passed through the anus under direct visualization and advanced with ease to the terminal ileum, confirmed by appendiceal orifice, cecal strap (salamatof's foot), and ileocecal valve. The scope was withdrawn and the mucosa was carefully examined. The quality of the preparation was good. The views were good. The patient's toleration of the procedure was good. Findings: colon appeared to be normal. A cold forceps biopsy was taken. Unplanned Events: There were no unplanned events. Summary: ?? Normal colon. Recommendations: ?? Follow-up on the results of the biopsy specimens. Performed By: The procedure was performed by and Dr. Douglas Lee. electronically signed by Dr. DOUGLAS LEE MD, MD, FAC on 03/04/2008 at 14:10 [employer] Document ID: [id number] * Douglas Lee MD - 05/08/2009 1531 EDT [facility] Esophagogastroduodenoscopy Procedure Report Physician: DOUGLAS LEE MD Referring Physician: RUBI KAMARA MD Exam Date:03/04/2008 Introduction: A 18 year old female patient presents for an outpatient Esophagogastroduodenoscopy Indications: ?? Change in bowel habits (787.99). ?? Abdominal pain (789.00). Consent: The benefits, risks, and alternatives to the procedure were discussed and informed consentwas obtained from the patient. Preparation: pulse oximetry and blood pressure were monitored throughout the procedure. ASA Classification: Class 1 - Patient has no organic, physiologic, biochemical, or psychiatric disturbance. Mallampati Classification: Class 1 - Uvula, faucial pillars, soft palate visible. Medications: ?? Propofol administered by anesthesia. Procedure: endoscope was passed with ease through the mouth under direct visualization and advancedto the 3rd portion of the duodenum. The scope was withdrawn and the mucosa was carefully examined. The views were good. The patient's toleration of the procedurewas good. Retroflexion was performed in the fundus. Findings: EGD examination was completely normal. A cold forceps biopsy was taken from the 2nd portion of the duodenum. Events: There were no unplanned events. Summary: ?? Normal EGD (45.13). Recommendations: ?? Follow-up on the results of the biopsy specimens. Performed By: The procedure was performed by and Dr. Douglas Lee. electronically signed by Dr. DOUGLAS LEE MD, , FACG on 03/04/2008 at 14:12 [facility] Document ID: [id number] documented in this encounter Plan of Treatment Not on file documented as of this encounter Visit Diagnoses Not on filedocumented in this encounter
--- OUTSIDE RECORDS SUMMARY | 2024-04-14 20:45 | XMS_ITS | Encounter Summary ---
Author Organization [facility] Address [address] [place] [address] Care Team Providers Care Rand Cementer Name Role Phone Unavailable Primary Care Provider Unavailabl e Encounter Details Date Type Department Care Team (Late st Contact Info) Description 02/25/2008 9:04 EDT Hospital Encounter [facility] [address] [place] [address] Douglas Lee MD Social History Tobacco Use [...] Date/Time Associated Diagnosis Comments SURGICAL PATHOLOGY Routine 03/04/2008 0:00 EDT SURGICAL PATHOLOGY Routine 03/04/2008 0:00 EDT documented in this encounter Results * SURGICAL PATHOLOGY (03/04/2008 0:00 EDT) Pathology Report: SURGICAL PATHOLOGY REPORT Reports generated via electronic interface contain original data; however they are lacking the format of the original report. Caution should be taken when reading/interpreti ng unformatted reports. Name: ? GLADYS NICHOLAS ? Accession #: ? [id number] ? : ? 1990 (Age: 18) ??F ? Collect Date: ? 03/04/2008 ? Location: ? [facility] ? Receive Date: ? 03/04/2008 ? Provider: DOUGLAS LEE MD Copy to: RUBI AGUILAR MD ? Final Pathologic Diagnosis: A. ?Duodenum, biopsy: 1. ?Duodenal mucosa with no pathologic features. B. ?Ileum, terminal, biopsy: 1. ?Small intestinal mucosa with no pathologic features. C. ?Colon, random biopsies: 1. ?Colonic mucosa with no pathologic features. Document reviewed and electronically signed by: NATALIA HEREDIA MD Report ??Date: 03/08/2008 19:56 By the signature above, the attending physician certifies that he/she has personally conducted a gross and/or microscopic examination of the described specimens and rendered or confirmed the above diagnosis. Specimen(s) Received: A. ?Bx from duodenal bx B. ? Ileum C. ? Random colon Clinical History: ? Sx c/w IBS ??colo/EGD done to R/O IBD, sprue Gross Description: ? Received in [employer] fixative labelled Barton and duodenal bx are four andino-pink tissues which range from 0.2 x 0.2 x 0.2 cm to 0.9 x 0.2 x 0.2 cm. ??The specimens are submitted as (A1) and (A2). Received in [employer] fixative labelled Barton and bx terminal ileum are three andino-pink tissue fragments which range from 0.3 x 0.3 x 0.2 cm to 0.6 x 0.3 x 0.2 cm. ??The specimen is submitted entirely as (B). ?? Received in [employer] fixative labelled Cristopher and random colon bx are two andino-pink tissue fragments which range from 0.5 x 0.3 x 0.2 cm to 1.3 x 0.2 x 0.2 cm. ??Submitted entirely as (C). (Dr. Hampton)/mpl End of Report [facility] 03/04/2008 03/04/2008 16: 03 EDT Douglas Lee MD PATHOLOGY ORDERABLES Performing Organization Address City/State/[facility] Co de Phone Number [facility] [address] [place] [address] * SURGICAL PATHOLOGY (03/04/2008 0:00 EDT) Pathology Report: SURGICAL PATHOLOGY REPORT ? Reports generated via electronic interface contain original data; ? however they are lacking the format of the original report. ? Caution should be taken when reading/interpreti ng unformatted reports. ? Name: ? CRISTOPHER, GLADYS L ? Accession #: ? [id number] ? : ? 1990 (Age: 18) ??F ? Collect Date: ? 03/04/2008 ? Location: ? [facility] ? Receive Date: ? 03/04/2008 ? Provider: PETER L JESUS MD ? Copy to: RUBI KAMARA MD ? MARGE BANNACH MD ? Final Pathologic Diagnosis: ? A. ?Duodenum, biopsy: ? 1. ?Duodenal mucosa with no pathologic features. ? B. ?Ileum, terminal, biopsy: ? 1. ?Small intestinal mucosa with no pathologic features. ? C. ?Colon, random biopsies: ? 1. ?Colonic mucosa with no pathologic features. ? Document reviewed and electronically signed by: ? Natalia Heredia MD ? Report ??Date: 03/08/2008 19:56 ? By the signature above, the attending physician certifies that he/she has ? personally conducted a gross and/or microscopic examination of the described ? specimens and rendered or confirmed the above diagnosis. ? Specimen(s) Received: ? A. ?Bx from duodenal bx ? B. ? Ileum ? C. ? Random colon ? Clinical History: ? Sx c/w IBS ??colo/EGD done to R/O IBD, sprue ? Gross Description: ? [facility] Barton and duodenal bx are four andino-pink tissues which range from 0.2 x 0.2 x 0.2 cm to 0.9 x 0.2 x 0.2 cm. ??The specimens are submitted as (A1) and (A2). ? Received in [facility]'s fixative labelled Barton and bx terminal ileum are ? three andino-pink tissue fragments which range from 0.3 x 0.3 x 0.2 cm to 0.6 x 0.3 x 0.2 cm. ??The specimen is submitted entirely as (B). ? Received in [facility] fixative labelled Barton and random colon bx are two ?? andino-pink tissue fragments which range from 0.5 x 0.3 x 0.2 cm to 1.3 x 0.2 x 0.2 cm. ??Submitted entirely as (C). (Dr. Hampton)/mpl ? End of Report ? [facility] 03/04/2008 03/04/2008 16: 03 EDT Douglas Lee MD PATHOLOGY ORDERABLES [facility] [address] [place] [address] documented in this encounter Visit Diagnoses Not on filedocumented in this encounter
--- OUTSIDE RECORDS SUMMARY | 2024-04-14 20:45 | XMS_ITS | Encounter Summary ---
Author Organization [facility] Address [address] [place] [address] Care Team Providers Care Mussel Farmer Name Role Phone Unavailable Primary Care Provider Unavailabl e Encounter Details Date Type Department Care Team (Late st Contact Info) Description 06/17/2012 Results Only [facility] [phone] Amanda Larson MD [address] [place] [phone] Social History Tobacco Use Types Packs/Day Years [...] Diagnosis Comments PAP TEST- RESULT ONLY Routine 06/17/2012 0:00 EST documented in this encounter Results * PAP TEST- RESULT ONLY (06/17/2012 0:00 EST) Pathology Report: CYTOPATHOLOGY REPORT Reports generated via electronic interface contain original data; however they are lacking the format of the original report. Caution should be taken when reading/interpreti ng unformatted reports. Name: ? GLADYS NICHOLAS ? Accession #: ? [id number] : ? 1990 (Age: 22) ??F ?Collect Date: ? 06/17/2012 Location: ? [facility] ? Receive Date: ? 06/18/2012 Provider: ?AMANDA LARSON MD Copy to: ? Specimen/Source: ?Pap Test, Endocervix, ThinPrep Imaging System with manual evaluation Last Menstrual Period: ? SPECIMEN ADEQUACY ? Satisfactory for Evaluation - transformation zone component present GENERAL CATEGORIZATION ? Epithelial Cell Abnormality INTERPRETATION ? Squamous Cell Abnormality - Low grade squamous intraepithelial lesion (LSIL). EDUCATIONAL NOTES/RECOMMENDATI ONS ? [facility] recommends following the 2006 Consensus Guidelines for the Management of Women with Abnormal Cervical Cancer Screening Tests (JLGTD, 2007;11(4):201-222 ). ??Consensus guidelines are available online at www.ASCCP.org. ? Document reviewed and electronically signed by: ? JV MONROY MD ? Report Date: ??06/27/2012 14:00 End of Report [facility] 06/17/2012 06/18/2012 Amanda Larson MD PATHOLOGY ORDERABL ES Performing Organization Address City/State/[facility] Co de Phone Number [facility] [address] [place] [address] documented in this encounter Visit Diagnoses Not on filedocumented in this encounter
--- OUTSIDE RECORDS SUMMARY | 2024-04-14 20:45 | XMS_ITS | Encounter Summary ---
Author Organization [facility] Address [address] [place] [address] Care Team Providers Care Body Former Name Role Phone Unavailable Primary Care Provider Unavailabl e Encounter Details Date Type Department Care Team (Late st Contact Info) Description 02/25/2008 Before PRISM Converted Visit ([place]) [facility] - [place] conversion [address] [place] [address] Douglas Thurman MD Social History Tobacco Use Types Packs/Day Years Used Date Smoking Tobacco: Never Assessed Sex and Gender Information Value Date Recorded Sex Assigned at Not on file Gender Identity Not on file Sexual Orientation Not on file documented as of this encounter Consult Notes * Douglas Thurman MD - 05/12/2009 1107 EDT DIVISION OF GASTROENTEROLOGY CONSULTATION - 02/25/2008 Blossom Gonzalez [place] [address] [place] [address] Gonzalez, Thank you for allowing me to consult on your patient, Gladys Quintanilla, for her diarrhea and rectal bleeding. Dr. Finch and I spent 40 minutes with Gladys and two of her friends today reviewingyour letter and office notes and talking to her about the history of her symptoms. A complete physical examination was performed, but greater than 50% of our time was spent in counseling regarding the differential diagnosis and the risks and benefits of a diagnostic evaluation. Certainly, an otherwise healthy 18-year-old woman can compensate for significant inflammatory bowel disease without alarm symptoms or constitutional symptoms, however, the fact that an experienced surgeon (Hayden Maya) did a sigmoidoscopy makes the diagnosis of ulcerative colitis unlikely. Nevertheless, Gladys wouldlike to develop a database that at least helps to rule out IBD and celiac disease and to that end we have scheduled a full colonoscopy and upper endoscopy with biopsies of the duodenum, ileum and colon to be done under propofol conscious sedation. I will certainly forward the reports of both procedures as well as the pathologic information that results as soon as the data are available. Again, thank you for trusting me with the consultation of your patient. Sincerely, Signed by Douglas Thurman MD, FACG 02/29/2008 11:47 Douglas Thurman MD, FACG [phone] - Douglas Thurman MD, FACG - [facility] Job ID: [id number] Doc ID: [id number] Recreated cc: Blossom Gonzalez MD documented in this encounter Plan of Treatment Not on file documented as of this encounter Visit Diagnoses Not on filedocumented in this encounter
--- OUTSIDE RECORDS SUMMARY | 2024-04-14 20:45 | XMS_ITS | Encounter Summary ---
Author Organization [facility] Address [address] [place] [address] Care Team Providers Care Elderly Caregiver Name Role Phone Unavailable Primary Care Provider Unavailabl e Encounter Details Date Type Department Care Team (Late st Contact Info) Description 03/18/2008 Before PRISM Converted Visit (Maple) [facility] - Maple conversion [address] [place] [address] Douglas Thurman MD Social History Tobacco Use Types Packs/Day Years Used Date Smoking Tobacco: Never Assessed Sex and Gender Information Value Date Recorded Sex Assigned at Not on file Gender Identity Not on file Sexual Orientation Not on file documented as of this encounter Progress Notes * Douglas Thurman MD - 05/12/2009 1231 EDT DIVISION OF GASTROENTEROLOGY March 18, 2008 Ms. Gladys Quintanilla [address] [place] [phone] Dear Gladys: I have looked at the biopsies from your duodenum, distal small bowel and colon. All biopsies are normal, effectively ruling out celiac disease and Crohn's disease as well as ulcerative colitis from the list of possibilities in terms of your abdominal symptoms. This makes irritable bowel syndrome the most likely diagnosis. Please discuss these findings with Dr. Gonzalez. If I can be of any further assistance to either one of you, do not hesitate to contact me. Sincerely, Signed by Douglas Thurman MD, FACG 03/23/2008 14:30 Nicki Thurman MD, [phone] L Moses, MD, FACGPanders Thurman MD, [phone] - Douglas Thurman MD, FACG - KAROL Job ID: [id number] Doc ID: [id number] cc: MD Gilberto Barnes MD Patient* documented in this encounter Plan of Treatment Not on file documented as of this encounter Visit Diagnoses Not on filedocumented in this encounter
--- OUTSIDE RECORDS SUMMARY | 2024-04-14 20:45 | XMS_ITS | Encounter Summary ---
Author Organization [facility] Address [address] [place] [address] Care Team Providers Care Nursing Unit Clerk Name Role Phone Blossom Aguilar MD Primary Care Provider [phone] Reason for Visit * Reason Comments Knee Injury Reports that she has had a partial tear to her left ACL from skiing since 2008. Fell two weeks ago, reinjuring her left knee. C/o ongoing swelling and pain since fall. Ambulatory without limping gait. Has taken Tylenol w/o effect. 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 Encounter Details Date Type Department Care Team (Late st Contact Info) Description 09/07/2013 18:07 EST - 09/07/2013 19:45 EST Emergency [facility] Emergency Department - [facility] [address] [place], [place] [id number] Aga Perez PA-C [address] [facility], [address] [place] [address] Emergency, MD Jay Knee strain (Primary Dx) Discharge Disposition: Home or Self Care Social History Tobacco Use Types Packs/Day Years Used Date Smoking Tobacco: Never Alcohol Use Standard Drinks/Week Comments Yes 0 (1 standard drink = 0.6 oz pur e alcohol) rare Sex and Gender Information Value Date Recorded Sex Assigned at Not on file Gender Identity Not on file Sexual Orientation Not on file documented as of this encounter Last Filed Vital Signs Vital Sign Reading Time Taken Comments Blood Pressure 128/76 09/07/2013 193 EST Pulse 86 09/07/2013 193 EST Temperature 35.6 ??C (96.1 ??F) 09/07/2013 1812 EST Respiratory Rate 16 09/07/2013 1934 EST Oxygen Saturation 100% 09/07/2013 1934 EST Inhaled Oxygen Concentration - - Weight - - Height - - Body Mass Index - - documented in this encounter Discharge Instructions * Discharge Instructions* Aga Perez PA - 09/07/2013 19:37 EST Take Naproxen (500 mg every 12 hours - take with food) or Tylenol (up to 1000 mg every 6 hours) forpain. Wear knee immobilizer whenever weight-bearing until you are reevaluated. Follow-up with Orthopedics for reevaluation for persistent symptoms If your pain is not controlled or if any other concerns arise, please return to the ED for reevaluation. * Attachments The following attachments cannot be sent through Care Everywhere. * KNEE SPRAIN: AFTER YOUR VISIT (GHANAIAN) documented in this encounter Medications at Time of Discharge Medication Sig Dispensed Refills Start Date End Date albuterol (VENTOLIN HFA) 90 mcg/actuation inhaler Inhale 2 Puffs as directed every 4 hours as needed for Wheezing. 11/10/2014 fluticasone-salmeterol (ADVAIR) 100-50 mcg/dose diskus inhaler Inhale 1 Puff as directed 2 times daily. 05/09/2014 MINOCYCLINE HCL (MINOCYCLINE ORAL) Take 100 mg by mouth . 07/01/2014 naproxen (NAPROSYN) 500 mg tablet Take 1 Tab by mouth 2 times daily. 20 Tab 0 09/07/2013 05/09/2014 documented as of this encounter Ordered Prescriptions Prescription Sig Dispensed Refills Start Date End Da te naproxen (NAPROSYN) 500 mg tablet Take 1 Tab by mouth 2 times daily. 20 Tab 0 09/07/2013 05/09/2014 documented in this encounter Discharge Disposition Disposition Code Departure Means Destination Comment s Home or Self Care Wheelchair Home pt escorted out of the ED without incident. documented in this encounter ED Notes * Rina Zuñiga RN - 09/07/2013 194 EST Discharge instructions reviewed with pt and her family. No question/concerns re: discharge education. Pt aware of s/s to return to ER for re-eval., home care, naproxen as prescribed, and f/u care with ortho as needed. Pt signed understanding of discharge education and assisted into a wheelchair andescorted out of the ED by family without incident. * Aga Perez PA - 09/07/2013 1906 EST DOS: 09/07/2013 Chief Complaint Patient presents with ??? Knee Injury Reports that she has had a partial tear to her left ACL from skiing since 2008. Fell two weeks ago,reinjuring her left knee. C/o ongoing swelling and pain since fall. Ambulatory without limping gait. Has taken Tylenol w/o effect. 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 The patient is a 23 y.o. female who presents today with Knee Injury HPI Comments: Patient is a 23-year-old female who presents to the ED for evaluation of left knee pain Patient sustained a partial anterior cruciate ligament pair of 2008, did not have this surgically managed 2 weeks ago she was walking up stairs when she fell, and twisted her left knee Has had persistent pain and swelling to the left knee Has been ambulating without crutches, with significant pain Taking Tylenol without relief Her job requires her to be in her feet for many hours a day Denies head or neck injury sustained from the fall Pain is 8/10 in severity Remainder of ROS is negative. The history is provided by the patient and a friend. Knee Injury Associated symptoms: no back pain Review of Systems Constitutional: Positive for activity change. Musculoskeletal: Positive for joint swelling (L knee) and gait problem. Negative for back pain. L knee pain Skin: Negative for wound. Neurological: Negative for weakness and numbness. All other systems reviewed and are negative. History reviewed. No pertinent past medical history. History reviewed. No pertinent past surgical history. Allergies Allergen Reactions ??? Tramadol Nausea Only Dizziness History Substance Use Topics ??? Smoking status: Never Smoker ??? Smokeless tobacco: Not on file ??? Alcohol Use: Yes Comment: rare No family history on file. Vital Signs Vitals Reassessment?: Yes Temp: 35.6 ??C (96.1 ??F) Temp src: Tympanic Pulse: 86 Resp: 16 SpO2: 100 % BP: 128/76 mmHg BP Device: BP Machine Patient Position: Semi fowlers BP Cuff Location: Left arm O2 Device: None (Room air) Physical Exam Nursing note and vitals reviewed. Constitutional: She is oriented to person, place, and time. She appears well- developed and well-nourished. No distress. HENT: Head: Normocephalic and atraumatic. Eyes: Conjunctivae and EOM are normal. Right eye exhibits no discharge. Left eye exhibits no discharge. Neck: Normal range of motion. Cardiovascular: Normal rate, regular rhythm and intact distal pulses. Neurovascularly intact bilaterally, less than 3 second cap refill Pulmonary/Chest: Effort normal. No respiratory distress. Musculoskeletal: She exhibits edema and tenderness. Left knee: She exhibits decreased range of motion, swelling, effusion, ecchymosis and bony tenderness. She exhibits no deformity, no laceration, no erythema and normal alignment. Tenderness found. Medial joint line, lateral joint line and MCL tenderness noted. No LCL and no patellar tendon tenderness noted. L knee ecchymosis, decreased ROM secondary pain, no deformity No streaking erythema Neurological: She is alert and oriented to person, place, and time. No cranial nerve deficit. Skin: Skin is warm and dry. No rash noted. She is not diaphoretic. No erythema. No pallor. Ecchymosis left knee Psychiatric: She has a normal mood and affect. KNEE 4 OR MORE VIEWS Final result not shown here.: Radiology orders: KNEE 4 OR MORE VIEWS Imaging Results KNEE 4 OR MORE VIEWS (Final result) Result time: 09/07/13 19:28:04 Final result Narrative: KNEE 4 OR MORE VIEWS 09/07/2013 7:05 PM Clinical History/Comments: knee pain s/p fall 2 week ago, history of partial ACL tear Comparison: None. Findings: 4 views of the left knee were performed. There is no suprapatellar joint effusion. Alignment is normal. Radiographically, I do not see significant soft tissue swelling. There are no acute fractures. I do not see bony evidence of a full ACL tear. Further evaluation with MRI is recommended if there is concern for internal derangement of the knee. Preliminary result Narrative: PRELIMINARY REPORT KNEE 4 OR MORE VIEWS 09/07/2013 7:05 PM Clinical History/Comments: knee pain s/p fall 2 week ago, history of partial ACL tear Comparison: None. Findings: 4 views of the left knee were performed. There is no suprapatellar joint effusion. Alignment is normal. Radiographically, I do not see significant soft tissue swelling. There are no acute fractures. I do not see bony evidence of a full ACL tear. Further evaluation with MRI is recommended if there is concern for internal derangement of the knee. Procedures ED Course: A medical screening exam was performed. Patient is a 23-year-old female who presents to the ED for evaluation of left knee pain status post fall 2 weeks ago Patient had an x-ray in ED - negative for effusion, soft tissue swelling, x-ray evidence of anterior cruciate ligament tear Patient given a knee immobilizer, is to rest, ice, elevate, and followup with orthopedics for further evaluation VSS, afebrile. PE concerning for knee strain. Pt rating pain at 8/10, is well- appearing and restingin NAD. Discussed symptomatic measures and discharged to home with detailed instructions and closely recommended follow-up. Supervising Physician: Stiven Disposition: Discharged The patient's pain was managed to an adequate level weighing risk vs. benefit of further medications. Upon departure from the Emergency Department, the patient's pain was 8 on a zero to ten scale. Condition at departure from the Emergency Department: Improved Discharge Medication List as of 09/07/2013 19:37 START taking these medications Details naproxen (NAPROSYN) 500 mg tablet Take 1 Tab by mouth 2 times daily., Disp-20 Tab, R-0, Print CONTINUE these medications which have NOT CHANGED Details albuterol (VENTOLIN HFA) 90 mcg/actuation inhaler Inhale 2 Puffs as directed every 4 hours as needed for Wheezing., Wheezing, Historical Med fluticasone-salmeterol (ADVAIR) 100-50 mcg/dose diskus inhaler Inhale 1 Puff as directed 2 times daily., Historical Med MINOCYCLINE HCL (MINOCYCLINE ORAL) Take by mouth., Historical Med MDM Number of Diagnoses or Management Options Diagnosis management comments: 3 Amount and/or Complexity of Data Reviewed Tests in the radiology section of CPT??: ordered and reviewed Review and summarize past medical records: yes Independent visualization of images, tracings, or specimens: yes Patient Progress Patient progress: improved Final diagnoses: Knee strain PCP: BLOSSOM AGUILAR MD 09/07/2013 19:56 documented in this encounter Plan of Treatment Not on file documented as of this encounter Procedures Procedure Name Priority Date/Time Associated Diagnosis Comments KNEE 4 OR MORE VIEWS STAT 09/07/2013 19:05 EST documented in this encounter Results * KNEE 4 OR MORE VIEWS (09/07/2013 19:05 EST) Anatomical Region Laterality Modality Other 09/07/2013 19:0 5 EST 09/07/2013 19:28 EST Narrative 09/07/2013 19:28 EST KNEE 4 OR MORE VIEWS ??09/07/2013 7:05 PM Clinical History/Comments: knee pain s/p fall 2 week ago, history of partial ACL tear Comparison: None. Findings: 4 views of the left knee were performed. There is no suprapatellar joint effusion. Alignment is normal. Radiographically, I do not see significant soft tissue swelling. There are no acute fractures. I do not see bony evidence of a full ACL tear. Further evaluation with MRI is recommended if there is concern for internal derangement of the knee. Procedure Note 09/07/2013 KNEE 4 OR MORE VIEWS 09/07/2013 7:05 PM Clinical History/Comments: knee pain s/p fall 2 week ago, history of partial ACL tear Comparison: None. Findings: 4 views of the left knee were performed. There is no suprapatellar joint effusion. Alignment is normal. Radiographically, I do not see significant soft tissue swelling. There are no acute fractures. I do not see bony evidence of a full ACL tear. Further evaluation with MRI is recommended if there is concern for internal derangement of the knee. Aga Perez PA-C IM DIAGNOST IC IMAGING ORDERABLES documented in this encounter Visit Diagnoses Diagnosis Knee strain- Primary Sprain and strain of other specified sites of knee and leg documented in this encounter Historical Medications * This list may reflect changes made after this encounter. Medication Sig Dispensed Refills Start Date End Date MINOCYCLINE HCL (MINOCYCLINE ORAL) Take 100 mg by mouth . 07/01/2014 albuterol (VENTOLIN HFA) 90 mcg/actuation inhaler Inhale 2 Puffs as directed every 4 hours as needed for Wheezing. 11/10/2014 fluticasone-salmeterol (ADVAIR) 100-50 mcg/dose diskus inhaler Inhale 1 Puff as directed 2 times daily. 05/09/2014 added in this encounter Orders General Supply Count Last Ordered Date First Or dered Date KNEE IMMOBILIZER 1 09/07/2013 documented in this encounter Care Teams Nursing Unit Clerk Relationship Specialty Start Date End Date Blossom Aguilar MD [address] [place] [phone] PCP - General 09/16/12 10/03/13 documented as of this encounter
--- OUTSIDE RECORDS SUMMARY | 2024-04-14 20:45 | XMS_ITS | Encounter Summary ---
Author Organization [facility] Address [address] [place] [address] Care Team Providers Care Route Deliverer Name Role Phone Unavailable Primary Care Provider Unavailabl e Encounter Details Date Type Department Care Team (Late st Contact Info) Description 09/18/2006 Results Only [facility] - Maple conversion [address] [place] [address] Jody Camara, [address] [phone] Social History Tobacco Use Types Packs/Day Years Used Date Smoking Tobacco: Never Assessed Sex and Gender Information Value Date Recorded Sex Assigned at Not on file Gender Identity Not on file Sexual Orientation Not on file documented as of this encounter Plan of Treatment Not on file documented as of this encounter Procedures Procedure Name Priority Date/Time Associated Diagnosis Comments CYTOPATHOLOGY Routine 09/18/2006 0:00 EST documented in this encounter Results * CYTOPATHOLOGY (09/18/2006 0:00 EST) Pathology Report: CYTOPATHOLOGY REPORT Reports generated via electronic interface contain original data; however they are lacking the format of the original report. Caution should be taken when reading/interpreti ng unformatted reports. Name: ? GLADYS NICHOLAS ? Accession #: ? [id number] : ? 1990 (Age: 16) ??F ?Collect Date: ? 09/18/2006 Location: ? [facility] ? Receive Date: ? 09/22/2006 Provider: ?JODY BOWMAN Copy to: ? Specimen/Source: ?ThinPrep Pap Test, Vagina/Cervix/Endo cervix, processed on [employer] ThinPrep Imaging System, with manual evaluation Last Menstrual Period: ? 08/22/06 Hormonal/Contracep tive Status: ? Yes: Radha Other: ? HPVA - HPV testing requested if ASC-US on the current ThinPrep Pap test. ? SPECIMEN ADEQUACY ? Satisfactory for Evaluation - transformation zone component present GENERAL CATEGORIZATION ? Negative for Intraepithelial Lesion or Malignancy ? Document reviewed and electronically signed by: ? JAMES Quinones(ASCP) ? Report Date: ??09/25/2006 10:54 End of Report DIAMOND EATON 09/18/2006 09/22/2006 Jody Camara PUBLIC TRANSIT TROLLEY DRIVER PATHOLOGY ORDERABLES Performing Organization Address City/State/[facility] Co de Phone Number DIAMOND EATON [address] [place] [address] documented in this encounter Visit Diagnoses Not on filedocumented in this encounter
--- OUTSIDE RECORDS SUMMARY | 2024-04-14 20:45 | XMS_ITS | Encounter Summary ---
Author Organization [facility] Address [address] [place] [address] Care Team Providers Care Structural Biologist Name Role Phone Amanda Larson MD Primary Care Provider [phone] Reason for Visit * Reason Comments Abdominal Pain pt c/o right lower a bd / groin pain for about 1 month pt had surgery for endomet. Encounter Details Date Type Department Care Team (Late st Contact Info) Description 10/04/2013 12:44 EST - 10/04/2013 15:18 EST Emergency [facility] Emergency Department - [address] [place] [address] [place] [address] Bhupinder Adamson, PAKasandra [address] [place] [phone] Emergency, MD Jay Endometriosis (Primary Dx) Discharge Disposition: Home or Self Care Social History Tobacco Use Types Packs/Day Years Used Date Smoking Tobacco: Some Days Alcohol Use Standard Drinks/Week Comments Yes 0 (1 standard drink = 0.6 oz pur e alcohol) rare Sex and Gender Information Value Date Recorded Sex Assigned at Not on file Gender Identity Not on file Sexual Orientation Not on file documented as of this encounter Last Filed Vital Signs Vital Sign Reading Time Taken Comments Blood Pressure 131/86 10/04/2013 1305 EST Pulse 97 10/04/2013 1305 EST Temperature 35.9 ??C (96.6 ??F) 10/04/2013 1305 EST Respiratory Rate 16 10/04/2013 1305 EST Oxygen Saturation 100% 10/04/2013 1305 EST Inhaled Oxygen Concentration - - Weight 68 kg (150 lb) 10/04/2013 1305 EST Height - - Body Mass Index - - documented in this encounter Medications at Time [...] documented in this encounter ED Notes * Bhupinder Adamson PA - 10/04/2013 0160 EST DOS: 10/04/2013 Chief Complaint Patient presents with ??? Abdominal Pain pt c/o right lower abd / groin pain for about 1 month pt had surgery for endomet. The patient is a 23 y.o. female who presents today with Abdominal Pain HPI Patient is a 23-year-old female the past medical history of endometriosis rij-omve-lty bowel syndrome presents with acute on chronic abdominal pain. Patient states that her pain is similar to her endometriosis. Patient denies having any fevers any chills any chest pain any dysuria frequency or urgency. She has not been having any vaginal discharge or painful intercourse. Patient denies having any rash. Review of Systems Review of systems: Constitutional: No fevers/chills Head/eyes/ears/nose/throat: No nosebleed/eyepain Respiratory: No shortness of breath Cardiologic: No chest pain Gastrointestinal: No abdominal pain/nausea/vomiting/diarrhea Genitourinay: No dysuria Muscle: No back pain Skin: No rash Neurological: No Headache Hematologic: No easy bruisability Psychologic: No confusion Physical Exam: Chief complaint reviewed Vitals signs reviewed Nurses note reviewed Well developed Head/eyes/ears/nose/throat:Normocephalic Conjunctiva normal Neck:supple Heart rate regular Chest:effort normal clear to auscultation Abdomen: Soft nontender positive bowel sounds Muscle: good strength Neurologic: No focal neurological deficits Skin:warm and dry Psychological:Mood /affect normal Past Medical History Diagnosis Date ??? Asthma ??? Endometriosis History reviewed. No pertinent past surgical history. Allergies Allergen Reactions ??? Tramadol Nausea Only Dizziness History Substance Use Topics ??? Smoking status: Current Some Day Smoker ??? Smokeless tobacco: Not on file ??? Alcohol Use: Yes Comment: rare No family history on file. Vital Signs Temp: 35.9 ??C (96.6 ??F) Temp src: Tympanic Pulse: 97 Resp: 16 SpO2: 100 % BP: 131/86 mmHg O2 Device: None (Room air) Physical Exam Radiology orders: None Imaging Results None Procedures ED Course: Patient left prior to completion of evaluation. A medical screening exam was performed. Disposition: Eloped Discharge Medication List as of 10/04/2013 15:19 CONTINUE these medications which have NOT CHANGED [...] times daily., Disp-20 Tab, R-0, Print MDM Final diagnoses: Endometriosis PCP: Amanda Larson 10/04/2013 21:30 * Melody Ruiz, STACEY - 10/04/2013 1514 EST Care assumed of pt. Reported off to this rn that pt was wanting to leave. Juan Diego OQUENDO aware. Attempted to get urine sample from pt but pt already left. juan diego aware. * Adrianna Copeland RN - 10/04/2013 1304 EST Just ended her period documented in this encounter Plan of Treatment Not on file documented as of this encounter Visit Diagnoses Diagnosis Endometriosis- Primary Endometriosis, site unspecified documented in this encounter Historical Medications * This list may reflect changes made after this encounter. Medication Sig Dispensed Refills Start Date End Date MONTELUKAST SODIUM (SINGULAIR ORAL) Take by mouth. 07/26/2014 added in this encounter Care Teams Structural Biologist Relationship Specialty Start Date End Date Amanda Larson MD [address] [place] [address] [place] [address] PCP - General 10/04/13 04/26/14 documented as of this encounter
--- OUTSIDE RECORDS SUMMARY | 2024-04-14 20:45 | XMS_ITS | Encounter Summary ---
Author Organization [facility] Address [address] [place] [address] Care Team Providers Care Uniform Room Attendant Name Role Phone Amanda Larson MD Primary Care Provider [phone] Reason for Visit * Reason Comments Fever Fever for the last 4 days. Max temp 104? Swollen tonsils but denies pain. Unable to sleep. Slight cough and SOB. Feels dehydrated, urine very concentrated. Encounter Details Date Type Department Care Team (Late st Contact Info) Description 03/11/2014 15:57 EDT - 03/11/2014 21:58 EDT Emergency [facility] Emergency Department - Main [address] [address] Emile Herron MD [address] [facility], Level [address] [place] [address] Emergency, MD Jay URI (upper respiratory infection) (Primary Dx); Asthma exacerbation Discharge Disposition: Home or Self Care Social [...] Sign Reading Time Taken Comments Blood Pressure 117/59 03/11/2014 2136 EDT Pulse 99 03/11/2014 1619 EDT Temperature 36.2 ??C (97.2 ??F) 03/11/2014 1619 EDT Respiratory Rate 20 03/11/20145 EDT Oxygen Saturation 100% 03/11/2014 2136 EDT Inhaled Oxygen Concentration - - Weight 72.6 kg (160 lb) 03/11/2014 1619 EDT Height 162.6 cm (5' 4) 03/11/2014 1619 EDT Body Mass Index 27.46 03/11/2014 1619 EDT documented in this encounter Discharge Instructions * Discharge Instructions* Emile Herron MD - 03/11/2014 21:25 EDT Use albuterol inhaler 2 puffs every 4 hours as needed. Drink plenty of fluids to stay well-hydrated. May use Tylenol 650 mg every 4-6 hours as needed. Follow up with your primary care physician next week. Return to the Emergency Department (ED) if your condition worsens, does not improve as expected, orother new concerns arise. Specifically return if you have new or uncontrolled pain, high fever, difficulty breathing, vomiting and unable to keep down fluids or medications, or any other concerns. * Attachments The following attachments cannot be sent through Care Everywhere. * ASTHMA : ADULT (CHINESE) documented in this encounter Medications at Time [...] MONTELUKAST SODIUM (SINGULAIR ORAL) Take by mouth. naproxen (NAPROSYN) 500 mg tablet Take 1 Tab by mouth 2 times daily. 20 Tab 0 09/07/2013 05/09/2014 documented as of this encounter Discharge Disposition Disposition Code Departure Means Destination Home or Self Care Car Home documented in this encounter ED Notes * Emile Herron MD - 03/11/20142034 EDT DOS: 03/11/2014 Chief Complaint Patient presents with ??? Fever Fever for the last 4 days. Max temp 104? Swollen tonsils but denies pain. Unable to sleep. Slight cough and SOB. Feels dehydrated, urine very concentrated. The patient is a 24 y.o. female who presents today with Fever HPI Comments: Initial patient contact. 03/11/2014 20:35 Gladys Quintanilla is a 24 y.o. female who presents with a chief complaint of fever. Patient presentscomplaining of 3-4 days of upper respiratory symptoms associated with nasal congestion and nonproductive cough. Patient has past medical history significant for asthma. She feels very slight chest tightness and shortness of breath. Patient says she was told that she needs to be on a course of steroids but cannot afford them. Symptoms gradual in onset. No aggravating or alleviating factors. No radiation of pain. No calf pain or swelling. Subjective fever. Slight wheezing. Fever Associated symptoms: congestion and cough The history is provided by the patient. Review of Systems Constitutional: Positive for fever. HENT: Positive for congestion. Respiratory: Positive for cough, shortness of breath and wheezing. All other systems reviewed and are negative. [...] No pertinent family history. Vital Signs Temp: 36.2 ??C (97.2 ??F) Temp src: Tympanic Pulse: 99 Heart Rate: 82 BPM Resp: 20 SpO2: 100 % BP: 117/59 mmHg BP Device: BP Machine Patient Position: Sitting BP Cuff Location: Left arm Physical Exam Nursing note and vitals reviewed. Constitutional: She is oriented to person, place, and time. She appears well- developed and well-nourished. HENT: Mouth/Throat: Oropharynx is clear and moist. Eyes: EOM are normal. Pupils are equal, round, and reactive to light. No scleral icterus. Neck: Normal range of motion. Neck supple. Cardiovascular: Normal rate, regular rhythm and normal heart sounds. Pulmonary/Chest: Effort normal. She has wheezes (mild expiratory). Abdominal: Soft. There is no tenderness. There is no guarding. Musculoskeletal: Normal range of motion. She exhibits no edema and no tenderness (No calf pain or swelling). Neurological: She is alert and oriented to person, place, and time. She has normal strength. Skin: Skin is warm and dry. No rash noted. Psychiatric: She has a normal mood and affect. Radiology orders: None Imaging Results None Procedures ED Course: A medical screening exam was performed. Duoneb. Decadron 10 mg PO. After ED observation and treatment and repeat evaluation the patient's condition was improved. Prior to discharge usual and customary precautions were reviewed with the patient and/or family including follow-up instructions and reasons to return to the Emergency Department if condition worsens, does not improve as expected, or other new concerns arise. Disposition: Discharged The patient's pain was managed to an adequate level weighing risk vs. benefit of further medications. Upon departure from the Emergency Department, the patient's pain was 0 on a zero to ten scale. Condition at departure from the Emergency Department: Improved ED Current Prescriptions None MDM Number of Diagnoses or Management Options Asthma exacerbation: URI (upper respiratory infection): Diagnosis management comments: 3 Patient Progress Patient progress: improved Final diagnoses: URI (upper respiratory infection) Asthma exacerbation PCP: Amanda Larson 03/12/2014 7:20 documented in this encounter Plan of Treatment Not on file documented as of this encounter Visit Diagnoses Diagnosis URI (upper respiratory infection)- Primary Acute upper respiratory infections of unspecified site Asthma exacerbation Unspecified asthma, with exacerbation documented in this encounter Administered Medications Inactive Administered Medications - up to 3 most recent administrations Medication Order MAR Action Action Date Dose Rate Site albuterol (ACCUNEB) nebulizer solution 5 mg 5 mg, nebulization, NOW X1, 1 dose, On Fri03/11/14 at 2100, STAT Given 03/11/2014 21:36 EDT 5 mg dexaMETHasone (DECADRON) injection 10 mg 10 mg, oral, NOW X1, 1 dose, On Fri03/11/14 at 2100, STAT Given 03/11/2014 21:06 EDT 10 mg ipratropium-albuterol (DUONEB) 0.5 mg-3 mg(2.5 mg base)/3 mL nebulizer solution 3 mL 3 mL, nebulization, NOW X1, 1 dose, On Fri03/11/14 at 2100, STAT Given 03/11/2014 21:01 EDT 3 mL documented in this encounter Active and Recently Administered Medications Times are shown in EDT. Scheduled Medication Order 03/09/2014 03/10/2014 03/11/2014 albuterol (ACCUNEB) nebulizer solution 5 mg (COMPLETED) 5 mg, nebulization, NOW X1, 1 dose, On Fri03/11/14 at 2100, STAT 2136 (Given - Provid er: RT Haley) dexaMETHasone (DECADRON) injection 10 mg (COMPLETED) 10 mg, oral, NOW X1, 1 dose, On Fri03/11/14 at 2100, STAT 2106 (Given - Provid er: Jovanny Gloria RN) ipratropium-albuterol (DUONEB) 0.5 mg-3 mg(2.5 mg base)/3 mL nebulizer solution 3 mL (COMPLETED) 3 mL, nebulization, NOW X1, 1 dose, On Fri03/11/14 at 2100, STAT 210 (Given - Provid er: RT Haley) documented in this encounter Orders Medications Ordered That Jean ht Not Have Been Administered Count Last Ordered Date First Ordered Date albuterol (VENTOLIN HFA) inhaler 2 Puff 1 0 03/11/2014 ipratropium (0.5mg/2.5ml) (A TROVENT) 0.02 % nebulizer solution 0.5 mg 1 03/11/2014 documented in this encounter Care Teams Uniform Room Attendant Relationship Specialty Start Date End Date Amanda Larson MD [address] [place] [id number] PCP - General 10/04/13 04/26/14 documented as of this encounter
--- NOTE | 2024-04-14 21:00 | DI.RAD_ITS ---
Exam(s) XR PORTABLE CHEST AP EXAM: XR PORTABLE CHEST AP CLINICAL HISTORY: cough, r/o pneumonia. TECHNIQUE: 2D digital imaging was performed. COMPARISON: CR,XR XR CHEST 2V PA LATERAL from 09/09/2023 CR XR CHEST 2V PA LATERAL from 10/01/2023 FINDINGS: Single AP portable view. Heart size is upper normal. The mediastinum is not widened. There is a significant area of infiltrate in what is either the left upper lobe or superior segment o f the left lower lobe. Also small area of nodular infiltrate in the mid right lung field, either in the right upper lobe or superior segment of right lower lobe. No pleural effusions. IMPRESSION: Bilateral lung infiltrates, more prominent on the left side. No obvious pleural effusions evident on this single portable AP view. DATA REPOSITORY: RADIATION DOSE DELIVERED:
[2024-04-14 21:17] LABS: COVID-19 PCR Negative (Negative); Influenza A PCR Negative (Negative); Influenza B PCR Negative (Negative); RSV PCR Negative (Negative)
[2024-04-14 21:18] LABS: Source NASOPHARYNX
[2024-04-14] MEDS: Doxycycline Hyclate 100 MG CAP PO (21:42)
[2024-04-14] MEDS: Albuterol/Ipratropium 3 ML UPD VIAL UPD (21:42)
[2024-04-14] MEDS: Doxycycline Hyclate 100 MG, 2 CAPS/BTL PO (21:42)
--- NOTE | 2024-04-14 22:12 | DI.VRAD_ITS ---
PROCEDURE INFORMATION: Exam: XR Chest Exam date and time: 04/14/2024 9:23 PM Age: 34 years old Clinical indication: Patient HX: Cough, R/O pneumonia TECHNIQUE: Imaging protocol: Radiologic exam of the chest. Views: 1 view. COMPARISON: CT CHEST PE ABD PELVIS W 11/26/2023 2:08 PM FINDINGS: Lungs: Mild airspace disease/consolidation left upper lobe. Minimal airspace disease right upper lobe. Pleural spaces: Unremarkable. No pleural effusion. No pneumothorax. Heart/Mediastinum: Unremarkable. No cardiomegaly. Bones/joints: Unremarkable. IMPRESSION: Mild airspace disease/consolidation left upper lobe. Minimal airspace disease right upper lobe. Dictated and Authenticated by: Carmelo Larry MD. Ordering:GUILLE Canela MD
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
== END 2024-04-14 22:26 | disposition home or self-care (01) ==
PROVIDERS: Emergency Provider Student in an Organized Health Care Education/Training Program; PCP Student in an Organized Health Care Education/Training Program
DX: J18.9 Pneumonia, unspecified organism (principal); R06.02 Shortness of breath; R05.9 Cough, unspecified
CPT/HCPCS: 87637; 94640; 99283; 71045; J7620

== ENCOUNTER 2024-04-18 17:09 | Emergency (ER) | payer OTHER, SELFPAY ==
[2024-04-18 17:28] VITALS: BP 131/87; PULSE 112; RESP 16; TEMP 37.5; O2SAT 98
--- NOTE | 2024-04-18 18:00 | DI.RAD_ITS ---
Exam(s) XR CHEST 2V PA LATERAL EXAM: XR CHEST 2V PA LATERAL CLINICAL HISTORY: cough TECHNIQUE: 2D digital imaging was performed. Two views. COMPARISON: CR,XR XR PORTABLE CHEST AP from 04/14/2024 FINDINGS: HEART: Normal size. Aorta: Not dilated. PULMONARY VASCULATURE: Normal. MEDIASTINUM: Unremarkable. LUNGS: Clear. PLEURAL SPACE: No pleural effusion or pneumothorax. BONE:Unremarkable for age. SOFT TISSUES: Unremarkable. IMPRESSION: No acute abnormality. DATA REPOSITORY: RADIATION DOSE DELIVERED:
[2024-04-18 18:09] LABS: COVID-19 PCR Negative (Negative); Influenza A PCR Negative (Negative); Influenza B PCR Negative (Negative); RSV PCR Negative (Negative)
[2024-04-18 18:13] LABS: Source NASOPHARYNX
[2024-04-18] MEDS: Albuterol HFA 8 GM 60 PUFF INH IH (18:23)
[2024-04-18] MEDS: Inhaler, Assist Device 1 EACH MC (18:26)
--- NOTE | 2024-04-18 19:46 | DI.VRAD_ITS ---
PROCEDURE INFORMATION: Exam: XR Chest Exam date and time: 04/18/2024 6:37 PM Age: 34 years old Clinical indication: Patient HX: Cough; Per patient, about 6 days TECHNIQUE: Imaging protocol: Radiologic exam of the chest. Views: 2 views. COMPARISON: CR XR PORTABLE CHEST AP 04/14/2024 9:23 PM FINDINGS: Lungs: Unremarkable. No consolidation. Pleural spaces: Unremarkable. No pleural effusion. No pneumothorax. Heart/Mediastinum: Unremarkable. No cardiomegaly. Bones/joints: Unremarkable. IMPRESSION: No acute findings. Dictated and Authenticated by: Artur Cohn MD. Ordering:[facility] Renate Staton MD
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
== END 2024-04-18 18:25 | disposition home or self-care (01) ==
PROVIDERS: Emergency Provider Emergency Medicine; PCP Student in an Organized Health Care Education/Training Program
DX: J18.9 Pneumonia, unspecified organism (principal); I10 Essential (primary) hypertension; Z87.891 Personal history of nicotine dependence
CPT/HCPCS: 87637; 99284; 71046; 99283

== ENCOUNTER 2024-06-17 17:50 | Outpatient (REF) | payer OTHER, SELFPAY ==
[2024-06-17 22:16] LABS: COVID-19 PCR Negative (Negative); Influenza A PCR Negative (Negative); Influenza B PCR Negative (Negative); RSV PCR Negative (Negative)
[2024-06-17 22:20] LABS: Source NASOPHARYNX
== END 2024-06-17 17:51 | disposition home or self-care (01) ==
LOC: LBN 17:50
PROVIDERS: PCP Student in an Organized Health Care Education/Training Program; Visit Provider Physician Assistant Medical
DX: B34.9 Viral infection, unspecified (principal)
CPT/HCPCS: 87637

== ENCOUNTER 2024-08-28 17:19 | Emergency (ER) | payer OTHER, SELFPAY ==
[2024-08-28 17:24] VITALS: BP 140/89; PULSE 110; RESP 18; TEMP 36.3; O2SAT 99
[2024-08-28 17:29] VITALS: BP 140/89; PULSE 110; RESP 18; TEMP 36.3; O2SAT 99
[2024-08-28 17:54] LABS: Bilirubin Negative (Negative); Blood Large (Negative); Clarity Clear (Clear); Glucose Negative (Negative); Ketones Trace mg/dL (Negative); Leukocyte Esterase Moderate (Negative); Nitrite Negative (Negative); Specific Gravity 1.025 (1.005-1.025); Urobilinogen 0.2 mg/dL (Up to 0.2); pH 5.5 (5-8)
[2024-08-28 17:55] LABS: C & S Indicated? Yes
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
[2024-08-28] MEDS: Cephalexin 500 MG CAP PO (18:28)
[2024-08-28] MEDS: Cephalexin 500 MG CAP, 2 CAPS/BTL PO (18:28)
== END 2024-08-28 18:31 | disposition home or self-care (01) ==
PROVIDERS: Emergency Provider Registered Nurse Emergency; PCP Student in an Organized Health Care Education/Training Program
DX: N39.0 Urinary tract infection, site not specified (principal); I10 Essential (primary) hypertension; Z87.891 Personal history of nicotine dependence
CPT/HCPCS: 81025; 99283; 81003; 81015; 87086

== ENCOUNTER 2024-09-02 16:58 | Outpatient (REF) | payer OTHER, SELFPAY ==
[2024-09-02 19:26] LABS: Bilirubin Negative (Negative); Blood Negative (Negative); Clarity Clear (Clear); Glucose Negative (Negative); Ketones Negative (Negative); Leukocyte Esterase Trace (Negative); Nitrite Negative (Negative); Urobilinogen 0.2 mg/dL (Up to 0.2); pH 5.5 (5-8)
[2024-09-02 19:34] LABS: Bacteria Rare HPF (Negative); C & S Indicated? C&S Done As Ordered; Casts Negative LPF (Negative); Crystals Negative HPF (Negative); Epithelial Cells Rare HPF (Negative); Mucus Negative (Negative); RBC 0-2 HPF (0-2)
== END 2024-09-02 16:59 | disposition home or self-care (01) ==
LOC: LBN 16:58
PROVIDERS: PCP Student in an Organized Health Care Education/Training Program; Visit Provider Urology
DX: N39.0 Urinary tract infection, site not specified (principal); B96.20 Unspecified Escherichia coli [E. coli] as the cause of diseases classified elsewhere; R10.2 Pelvic and perineal pain
CPT/HCPCS: 81003; 81015; 87086

== ENCOUNTER 2024-09-14 14:08 | Emergency (ER) | payer OTHER, SELFPAY ==
[2024-09-14 14:12] VITALS: BP 152/98; PULSE 96; RESP 18; TEMP 36.6; O2SAT 98
--- NOTE | 2024-09-14 14:15 | DI.RAD_ITS ---
Exam(s) XR SHOULDER LT COMPLETE 2+V EXAM: XR SHOULDER LT COMPLETE 2+V CLINICAL HISTORY: L. arm pain/numbness. TECHNIQUE: 2D digital imaging was performed of the left shoulder. Four images were obtained. AP, G rashey and Y views were obtained. COMPARISON: CR,XR XR CHEST 2V PA LATERAL from 04/18/2024 FINDINGS: BONES: No acute fracture is present. No bony destructive lesion is seen. JOINTS: No dislocation present. The joint spaces are well maintained. SOFT TISSUE: Normal. IMPRESSION: No acute abnormality. DATA REPOSITORY: RADIATION DOSE DELIVERED:
--- NOTE | 2024-09-14 14:15 | RT.EKG_ITS ---
APPROVED REPORT Exam: Resting ECG Reason for Exam: L. arm pain Patient Location: E HR:79 bpm ECG Measurements Heart Rate 79 AXIS FL 153 P 45 QRSd 99 QRS 52 QT 372 T 31 QTc 428 Conclusion Sinus rhythm, rate 79 No interval abnormalities No STEMI Inverted/flattened T wave lead III noted on priors
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
[2024-09-14] MEDS: Acetaminophen 500 MG TAB 1000 MG PO (14:53)
[2024-09-14] MEDS: Ketorolac 15 MG/ML VIAL IM (14:54)
[2024-09-14] MEDS: Lidocaine 5% Patch 1 PATCH TP (15:32)
[2024-09-14 15:52] VITALS: BP 115/73; PULSE 89; RESP 16; TEMP 36.6; O2SAT 99
== END 2024-09-14 15:55 | disposition home or self-care (01) ==
PROVIDERS: Emergency Provider Emergency Medicine; PCP Student in an Organized Health Care Education/Training Program
DX: R20.0 Anesthesia of skin (principal); R20.2 Paresthesia of skin; M25.512 Pain in left shoulder; I10 Essential (primary) hypertension
CPT/HCPCS: 93005; 96372; 99284; 73030; 93010; J1885

== ENCOUNTER 2024-09-27 15:12 | Emergency (ER) | payer OTHER, SELFPAY ==
[2024-09-27 15:13] VITALS: BP 148/102; PULSE 117; RESP 14; TEMP 36.4; O2SAT 100
[2024-09-27 15:30] VITALS: BP 140/82; PULSE 110; RESP 14; TEMP 36.4; O2SAT 100
--- NOTE | 2024-09-27 15:45 | DI.CT_ITS ---
Exam(s) CT RENAL COLIC WO EXAM: CT RENAL COLIC WO CLINICAL HISTORY: right flank pain. TECHNIQUE: Imaging Protocol: Axial computed tomography images with coronal and sagittal reformatted images were created and reviewed CONTRAST MATERIAL: Intravenous: none Oral: None COMPARISON: CT CT CHEST PE ABD PELVIS W from 11/26/2023 FINDINGS: VISUALIZED LUNG BASES: No nodules nor pleural effusions evident. ABDOMEN: There is no ascites. LIVER: Mild hepatic steatosis. No focal hepatic lesions evident on this non few study. GALLBLADDER/BILIARY: No obvious gallbladder pathology. CBD is not dilated. PANCREAS: No evidence of pancreatic mass nor dilatation of the pancreatic duct. SPLEEN: Spleen is not enlarged. No obvious intrasplenic lesions. ADRENALS: There are no significant adrenal masses. KIDNEYS:No cysts evident. No solid renal masses. No calculi nor hydronephrosis. . ABDOMINAL AORTA: Abdominal aorta is not enlarged. LYMPH NODES: There is no retroperitoneal nor paraaortic adenopathy. ABDOMINAL WALL: No evidence of significant anterior abdominal wall nor inguinal hernia. GI: There is no evidence of bowel obstruction, free air, nor abscess. PELVIS: LYMPH NODES: There is no intrapelvic nor inguinal adenopathy. GI: No evidence of appendicitis.No evidence of sigmoid diverticulitis. URINARY BLADDER: Bladder is collapsed. REPRODUCTIVE: Uterus and adnexal regions appear unremarkable. No ovarian masses nor free fluid. OSSEOUS: No significant osseous lesions. No fractures. No disc space narrowing. IMPRESSION: 1. No abnormal adnexal masses. Previously present 3.5 cm cyst in the right ovary is no longer eviden t. Both adnexal regions presently appear unremarkable and there is no free fluid. 2. No evidence of appendicitis nor diverticulitis. 3. No renal calculi nor hydronephrosis nor hydroureter. There are no radiopaque calculi evident in t he collapsed urinary bladder Report called by myself to ER physician 09/27/2024 at 5:05 p.m. RADIATION DOSE DELIVERED: 761.26mGy.cm Total DLP DATA REPOSITORY: All CT scans at this facility are submitted to the National Radiology Data Registry (NRDR) Dose Index Registry (DIR) with the [employer] [place] [employer] (A[employer]). RADIATION OPTIMIZATION: All CT scans at this facility use at least one of these dose optimization te chniques: automated exposure control; mA and/or kV adjustment per patient size (includes targeted exa ms where dose is matched to clinical indication); or iterative reconstruction.
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
[2024-09-27] MEDS: Ketorolac 15 MG/ML VIAL IVP (16:04)
[2024-09-27] MEDS: Ondansetron 4 MG/2 ML VIAL IVP (16:11)
[2024-09-27 16:20] LABS: Absolute Basophil Count 0.08 10^3/uL (0.0-0.2); Absolute Eosinophil Count 0.09 10^3/uL (0.0-0.7); Absolute Lymphocyte Count 3.07 10^3/uL (1.2-3.4); Absolute Monocyte Count 0.63 10^3/uL (0.1-0.8); Absolute Neutrophil Count 6.57 10^3/uL (1.2-6.7); Basophils % 0.8 %; Eosinophils % 0.9 %; HCT 40.8 % (36.0-46.0); HGB 13.9 g/dL (11.2-15.7); Immature Grans % 0.9 %; Lymphocytes % 29.1 %; MCH 28.4 pg (27.0-33.0); MCHC 34.1 % (32.0-36.0); MCV 83 fL (80-95); MPV 9.8 fL (8.0-11.0); Neutrophils % 62.3 %; Platelet Count 336 10^3/uL (130-400); RBC 4.89 10^6/uL (3.93-5.22); RDW 12.8 % (11.7-14.6); RDW-SD 38.8 fL; WBC 10.54 10^3/uL (4.4-10.8)
[2024-09-27 16:33] LABS: ALT 25 U/L (14-59); AST 14 U/L (15-37); Albumin 3.9 g/dL (3.4-5.0); Alkaline Phosphatase 78 U/L (46-116); BUN 10 mg/dL (7-18); Bilirubin, Total 0.33 mg/dL (0.2-1.0); CREATININE 0.9 mg/dL (0.55-1.02); Calcium 9.3 mg/dL (8.5-10.1); Chloride 107 mmol/L (98-107); Estimated GFR 86.03 (mL/min/1.73m2); Glucose 95 mg/dL (74-106); Lipase 47 U/L (<78); Magnesium 1.8 mg/dL (1.8-2.4); Potassium 3.6 mmol/L (3.5-5.1); Sodium 141 mmol/L (136-145); Total Protein 7.6 g/dL (6.4-8.2)
[2024-09-27 16:45] LABS: Bilirubin Negative (Negative); Blood Negative (Negative); Clarity Clear (Clear); Glucose Negative (Negative); Ketones Negative (Negative); Leukocyte Esterase Negative (Negative); Nitrite Negative (Negative); Specific Gravity 1.025 (1.005-1.025); Urobilinogen 0.2 mg/dL (Up to 0.2); pH 5.5 (5-8)
[2024-09-27 17:46] VITALS: BP 145/82; PULSE 98; RESP 16; O2SAT 100
== END 2024-09-27 17:58 | disposition home or self-care (01) ==
PROVIDERS: Emergency Provider Emergency Medicine; PCP Student in an Organized Health Care Education/Training Program
DX: M54.50 Low back pain, unspecified (principal)
CPT/HCPCS: 80053; 81025; 83690; 96374; 96375; 99284; 74176; 81003; 83735; 85025; 99283; J1885; J2405

== ENCOUNTER 2025-01-15 10:51 | Emergency (ER) | payer OTHER, SELFPAY ==
[2025-01-15 10:53] VITALS: BP 140/87; PULSE 107; TEMP 36.8; O2SAT 99
--- NOTE | 2025-01-15 11:15 | DI.US_ITS ---
Exam(s) US PELVIS TRANSVAGINAL EXAM: US PELVIS TRANSVAGINAL CLINICAL HISTORY: egg retrieval , ?hyperstim vs torsion. TECHNIQUE: Transabdominal and transvaginal pelvic ultrasound was performed using standard protocol. COMPARISON: US US PELVIS TRANSVAGINAL from 04/28/2023 FINDINGS: UTERUS: Position: Anteverted. Size: 10.0 long by 4.5 AP by 6.1 transverse cm Endometrium: 0.7 cm. Normal for patient's menstrual status. Myometrium: Unremarkable. Cervix: Unremarkable. OVARIES: There is enlargement of both ovaries. Right: 9.3 x 8.6 x 7.2 cm Cyst or mass: There are numerous follicles of variable size. Left: 8.1 x 6.9 x 5.2 cm Cyst or mass: There are numerous follicles of variable size. DOPPLER: Color: Symmetric and uniform flow to both ovaries. CUL-DE-SAC: Free fluid: There is a moderate amount of clear fluid in the pelvis and around the ovaries. Other: None. IMPRESSION: 1. Normal-appearing uterus with endometrial stripe within normal limits. 2. Enlarged ovaries with numerous follicles and pelvic ascites. Ovarian hyperstimulation syndrome sh ould be considered in this patient. DATA REPOSITORY:
[2025-01-15 11:23] LABS: Bilirubin Small (Negative); Blood Negative (Negative); Clarity Sl Cloudy (Clear); Glucose Negative (Negative); Ketones 80 mg/dL (Negative); Leukocyte Esterase Negative (Negative); Nitrite Negative (Negative); Specific Gravity >= 1.030 (1.005-1.025); Urobilinogen 0.2 mg/dL (Up to 0.2)
[2025-01-15 11:27] VITALS: BP 140/87; PULSE 107; TEMP 36.8; O2SAT 99
[2025-01-15] MEDS: Ondansetron 4 MG/2 ML VIAL IVP (11:33)
[2025-01-15] MEDS: Normal Saline 1,000 ML 1000 ML IV (11:33)
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
[2025-01-15 11:40] LABS: Abs Immature Grans 0.12 10^3/uL (0.0-0.06); Absolute Basophil Count 0.05 10^3/uL (0.0-0.2); Absolute Eosinophil Count 0.09 10^3/uL (0.0-0.7); Absolute Lymphocyte Count 2.77 10^3/uL (1.2-3.4); Absolute Monocyte Count 0.83 10^3/uL (0.1-0.8); Basophils % 0.4 %; Eosinophils % 0.7 %; HCT 41.3 % (36.0-46.0); HGB 13.9 g/dL (11.2-15.7); Immature Grans % 0.9 %; Lymphocytes % 20.5 %; MCH 28.5 pg (27.0-33.0); MCHC 33.7 % (32.0-36.0); MCV 85 fL (80-95); MPV 10.2 fL (8.0-11.0); Monocytes % 6.1 %; Neutrophils % 71.4 %; Platelet Count 275 10^3/uL (130-400); RBC 4.87 10^6/uL (3.93-5.22); RDW-SD 39.6 fL; WBC 13.53 10^3/uL (4.4-10.8)
[2025-01-15 11:41] LABS: Absolute Neutrophil Count 9.66 10^3/uL (1.2-6.7)
[2025-01-15] MEDS: ACETAMINOPHEN 1,000 MG/100 ML BAG 100 MG (11:42)
[2025-01-15 11:58] LABS: ALT 11 U/L (14-59); AST 13 U/L (15-37); Albumin 3.2 g/dL (3.4-5.0); Alkaline Phosphatase 73 U/L (46-116); Anion Gap 8.8 mmol/L (3-11); BUN 8 mg/dL (7-18); Bilirubin, Total 0.5 mg/dL (0.2-1.0); CO2 25.2 mmol/L (21.0-32.0); CREATININE 0.7 mg/dL (0.55-1.02); Calcium 8.6 mg/dL (8.5-10.1); Chloride 104 mmol/L (98-107); Estimated GFR 116.31 (mL/min/1.73m2); Glucose 87 mg/dL (74-106); Lipase 22 U/L (<78); Magnesium 1.8 mg/dL (1.8-2.4); Sodium 138 mmol/L (136-145)
[2025-01-15 12:20] VITALS: BP 132/82; PULSE 86; TEMP 37.2
[2025-01-15 13:09] VITALS: BP 139/78; PULSE 85; RESP 18; O2SAT 99
[2025-01-15 14:11] VITALS: BP 139/78; PULSE 74; RESP 18; O2SAT 100
--- NOTE | 2025-01-15 14:21 | DI.VRAD_ITS ---
PROCEDURE INFORMATION: Exam: US Pelvis Transabdominal, Complete, and US Pelvis Transvaginal, Non-obstetric Exam date and time: 01/15/2025 12:17 PM Age: 34 years old Clinical indication: Pelvic pain TECHNIQUE: Imaging protocol: Real-time complete transabdominal and transvaginal pelvic ultrasound (non-obstetric) with image documentation. Transvaginal imaging was used for better evaluation of the endometrium, adnexa, and/or cervix. COMPARISON: No relevant prior studies available. FINDINGS: Uterus: The uterus measures 10 x 4.5 x 6.1 cm. Nabothian cysts. Endometrium measures 7 mm in thickness. Right ovary/adnexa: The right ovary measures 9.3 x 8.6 x 7.2 cm and contains numerous follicles. Normal arterial and venous blood flow. No mass. Left ovary/adnexa: The left ovary measures 8.1 x 6.9 x 5.5 cm and contains numerous follicles. Normal arterial and venous blood flow. No mass. Intraperitoneal space: Anechoic pelvic free fluid. Urinary bladder: Not assessed. IMPRESSION: Enlarged bilateral ovaries containing numerous follicles. Moderate amount of pelvic free fluid. Findings are suggestive of ovarian hyperstimulation syndrome given history of IVF. Dictated and Authenticated by: Arley Neal MD. Orderin Hanna Petty MD
--- NOTE | 2025-01-16 10:15 | NUR.NOTE ---
Access chart to get email address to send the work release to patient at Dr. Ferreira request. Nursing Note:
== END 2025-01-15 14:13 | disposition home or self-care (01) ==
PROVIDERS: Emergency Provider Emergency Medicine; PCP Student in an Organized Health Care Education/Training Program
DX: N98.1 Hyperstimulation of ovaries (principal); I10 Essential (primary) hypertension
CPT/HCPCS: 36415; 80053; 83690; 96361; 96374; 99284; 76830; 76856; 81003; 83735; 84703; 85025; J0131; J2405

== ENCOUNTER 2025-01-17 15:08 | Outpatient (CLI) | payer OTHER, SELFPAY ==
[2025-01-17 15:37] LABS: Abs Immature Grans 0.14 10^3/uL (0.0-0.06); Absolute Basophil Count 0.06 10^3/uL (0.0-0.2); Absolute Eosinophil Count 0.15 10^3/uL (0.0-0.7); Absolute Lymphocyte Count 2.59 10^3/uL (1.2-3.4); Absolute Monocyte Count 0.93 10^3/uL (0.1-0.8); Basophils % 0.5 %; Eosinophils % 1.3 %; HCT 40.1 % (36.0-46.0); HGB 13.3 g/dL (11.2-15.7); Immature Grans % 1.2 %; Lymphocytes % 22.8 %; MCH 28.1 pg (27.0-33.0); MCHC 33.2 % (32.0-36.0); MCV 85 fL (80-95); MPV 9.9 fL (8.0-11.0); Monocytes % 8.2 %; Platelet Count 256 10^3/uL (130-400); RBC 4.74 10^6/uL (3.93-5.22); RDW 12.8 % (11.7-14.6); RDW-SD 38.8 fL; WBC 11.34 10^3/uL (4.4-10.8)
[2025-01-17 15:38] LABS: Absolute Neutrophil Count 7.48 10^3/uL (1.2-6.7)
[2025-01-17 15:52] LABS: ALT 54 U/L (14-59); AST 15 U/L (15-37); Albumin 2.9 g/dL (3.4-5.0); Alkaline Phosphatase 70 U/L (46-116); Anion Gap 6.4 mmol/L (3-11); BUN 8 mg/dL (7-18); Bilirubin, Total 0.3 mg/dL (0.2-1.0); CO2 26.6 mmol/L (21.0-32.0); CREATININE 0.8 mg/dL (0.55-1.02); Calcium 8.5 mg/dL (8.5-10.1); Chloride 105 mmol/L (98-107); Estimated GFR 99.09 (mL/min/1.73m2); Glucose 85 mg/dL (74-106); Potassium 4.1 mmol/L (3.5-5.1); Prothrombin Time 9.6 sec (9.1-11.1); Sodium 138 mmol/L (136-145); Total Protein 6.8 g/dL (6.4-8.2)
== END 2025-01-17 15:09 | disposition home or self-care (01) ==
LOC: LBO 15:08
PROVIDERS: PCP Student in an Organized Health Care Education/Training Program; Visit Provider Obstetrics & Gynecology
DX: N98.1 Hyperstimulation of ovaries (principal)
CPT/HCPCS: 36415; 80053; 85025; 85610; 85730

== ENCOUNTER 2025-01-20 08:38 | Outpatient (CLI) | payer OTHER, SELFPAY ==
[2025-01-20 08:28] LABS: Abs Immature Grans 0.18 10^3/uL (0.0-0.06); Absolute Basophil Count 0.06 10^3/uL (0.0-0.2); Absolute Lymphocyte Count 2.08 10^3/uL (1.2-3.4); Absolute Monocyte Count 0.67 10^3/uL (0.1-0.8); Absolute Neutrophil Count 6.24 10^3/uL (1.2-6.7); Basophils % 0.6 %; Eosinophils % 2.1 %; HCT 36.6 % (36.0-46.0); HGB 12.3 g/dL (11.2-15.7); Immature Grans % 1.9 %; Lymphocytes % 22.1 %; MCHC 33.6 % (32.0-36.0); MCV 83 fL (80-95); MPV 10.5 fL (8.0-11.0); Monocytes % 7.1 %; Neutrophils % 66.2 %; Platelet Count 257 10^3/uL (130-400); RBC 4.39 10^6/uL (3.93-5.22); RDW 12.8 % (11.7-14.6); RDW-SD 38.6 fL; WBC 9.43 10^3/uL (4.4-10.8)
[2025-01-20 09:00] LABS: ALT 18 U/L (14-59); AST 18 U/L (15-37); Albumin 3.2 g/dL (3.4-5.0); Alkaline Phosphatase 70 U/L (46-116); Anion Gap 11.3 mmol/L (3-11); BUN 12 mg/dL (7-18); Bilirubin, Total 0.3 mg/dL (0.2-1.0); CO2 22.7 mmol/L (21.0-32.0); CREATININE 0.7 mg/dL (0.55-1.02); Calcium 8.9 mg/dL (8.5-10.1); Chloride 105 mmol/L (98-107); Estimated GFR 116.31 (mL/min/1.73m2); Glucose 94 mg/dL (74-106); Potassium 4.2 mmol/L (3.5-5.1); Sodium 139 mmol/L (136-145); Total Protein 7.3 g/dL (6.4-8.2)
== END 2025-01-20 08:39 | disposition home or self-care (01) ==
LOC: LBO 08:38
PROVIDERS: PCP Student in an Organized Health Care Education/Training Program; Visit Provider Obstetrics & Gynecology Reproductive Endocrinology
DX: N94.818 Other vulvodynia
CPT/HCPCS: 36415; 80053; 85025

== ENCOUNTER 2025-01-27 21:31 | Emergency (ER) | payer OTHER, SELFPAY ==
[2025-01-27] VITALS (12 sets, daily range): BP systolic 113–157; BP diastolic 66–108; PULSE 78–110; RESP 18–20; TEMP 36.5; O2SAT 97–99
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
[2025-01-27 21:53] LABS: Abs Immature Grans 0.07 10^3/uL (0.0-0.06); Absolute Basophil Count 0.05 10^3/uL (0.0-0.2); Absolute Eosinophil Count 0.25 10^3/uL (0.0-0.7); Absolute Lymphocyte Count 3.28 10^3/uL (1.2-3.4); Absolute Monocyte Count 0.71 10^3/uL (0.1-0.8); Absolute Neutrophil Count 3.65 10^3/uL (1.2-6.7); Basophils % 0.6 %; Eosinophils % 3.1 %; HGB 13.2 g/dL (11.2-15.7); Immature Grans % 0.9 %; Lymphocytes % 40.9 %; MCH 27.5 pg (27.0-33.0); MCV 83 fL (80-95); MPV 10.1 fL (8.0-11.0); Monocytes % 8.9 %; Neutrophils % 45.6 %; Platelet Count 334 10^3/uL (130-400); RDW 12.4 % (11.7-14.6); RDW-SD 37.5 fL; WBC 8.01 10^3/uL (4.4-10.8)
[2025-01-27] MEDS: Normal Saline 500 ML IV (21:58)
[2025-01-27] MEDS: fentaNYL 100 MCG/2 ML VIAL 25 MCG IVP ×2 (21:58→22:43)
[2025-01-27] MEDS: Ondansetron 4 MG/2 ML VIAL IVP (21:58)
[2025-01-27 22:09] LABS: PTT Activated 32.2 sec (20.6-30.2); Prothrombin Time 10.2 sec (9.1-11.1)
[2025-01-27 22:11] LABS: HCG Qual (Serum) Negative
[2025-01-27 22:18] LABS: ALT 26 U/L (14-59); AST 20 U/L (15-37); Albumin 3.8 g/dL (3.4-5.0); Alkaline Phosphatase 78 U/L (46-116); Anion Gap 10.8 mmol/L (3-11); BUN 12 mg/dL (7-18); Bilirubin, Direct 0.1 mg/dL (0.0-0.2); Bilirubin, Total 0.3 mg/dL (0.2-1.0); CO2 24.2 mmol/L (21.0-32.0); CREATININE 0.8 mg/dL (0.55-1.02); Calcium 8.8 mg/dL (8.5-10.1); Chloride 102 mmol/L (98-107); Estimated GFR 99.09 (mL/min/1.73m2); Glucose 155 mg/dL (74-106); Lipase 40 U/L (<78); Magnesium 1.7 mg/dL (1.8-2.4); Potassium 3.4 mmol/L (3.5-5.1); Sodium 137 mmol/L (136-145); TSH (W/Ref FT4) 1.04 uIU/mL (0.36-3.74); Total Protein 7.4 g/dL (6.4-8.2)
[2025-01-27] MEDS: Normal Saline - Diluent 50 ML VIAL IJ (22:27)
[2025-01-27] MEDS: Omnipaque 350 MG/ML 100 ML BTL IJ (22:29)
--- NOTE | 2025-01-27 22:29 | DI.CT_ITS ---
Exam(s) CT ABDOMEN PELVIS W EXAM: CT ABDOMEN PELVIS W CLINICAL HISTORY: Left flank pain. TECHNIQUE: Imaging Protocol: Axial computed tomography images with coronal and sagittal reformatted images were created and reviewed CONTRAST MATERIAL: Intravenous: Omnipaque 350 Contrast volume:100 ml Oral: no COMPARISON: CT CT RENAL COLIC WO from 09/27/2024 FINDINGS: ABDOMEN and PELVIS: Lung Bases: No acute findings. Liver: Mild hepatic steatosis. No suspicious mass. Gallbladder and biliary tract: No radiodense calculus. No wall thickening or pericholecystic fluid. No biliary dilation. Pancreas: Normal density. No abnormal calcifications or inflammatory process. No evidence of mass. Spleen: Normal. Kidneys: Normal size, contour and axis. No radiodense stones. No obstructive uropathy. Stable small left renal cyst. No suspicious masses seen. Adrenal glands: No masses seen. Vasculature: Abdominal aorta non-dilated. Soft tissues: Unremarkable. Bladder: No gross wall thickening. No calculi.No focal mass. Bowel: No obstruction. No bowel wall thickening. Appendix normal. Normal quantity of stool. Peritoneal cavity: No ascites. No focal collection. No mesenteric inflammatory response. No free air. Bones: Unremarkable for age. Reproductive organs: nabothian cysts. Dominant follicle on left ovary. Lymph nodes: No pathologically enlarged lymph nodes. IMPRESSION:: No acute abnormality in the abdomen or pelvis. The preliminary [facility] report was reviewed. RADIATION DOSE DELIVERED: 717.3mGy.cm Total DLP DATA REPOSITORY: All CT scans at this facility are submitted to the National Radiology Data Registry (NRDR) Dose Index Registry (DIR) with the [employer] [place] [employer] (ACR). RADIATION OPTIMIZATION: All CT scans at this facility use at least one of these dose optimization techniques: automated exposure control; mA and/or kV adjustment per patient size (includes targeted exams where dose is matched to clinical indication); or iterative reconstruction.
--- NOTE | 2025-01-27 22:56 | DI.VRAD_ITS ---
PROCEDURE INFORMATION: Exam: CT Abdomen And Pelvis With Contrast Exam date and time: 01/27/2025 10:24 PM Age: 34 years old Clinical indication: Abdominal pain; Left flank pain TECHNIQUE: Imaging protocol: Computed tomography of the abdomen and pelvis with contrast. Radiation optimization: All CT scans at this facility use at least one of these dose optimization techniques: automated exposure control; mA and/or kV adjustment per patient size (includes targeted exams where dose is matched to clinical indication); or iterative reconstruction. Contrast material: [id number]; Contrast volume: 100 ml; Contrast route: INTRAVENOUS (IV); COMPARISON: CT RENAL COLIC WO 09/27/2024 4:42 PM FINDINGS: Lungs: Lung bases are unremarkable. Liver: There is a diffuse decrease in hepatic parenchymal density, consistent with fatty infiltration. Gallbladder and biliary ducts: No gallstones. Nondistended. No wall thickening. Pancreas: The pancreas is unremarkable. Spleen: No splenomegaly. No lesions. Adrenal glands: The adrenal glands are unremarkable. Kidneys and ureters: Stable renal cysts. Stomach and bowel: No evidence of bowel obstruction. No pericolonic inflammatory stranding. Appendix: Appendix is not seen but there is no pericecal inflammatory change. Intraperitoneal space: Unremarkable. No free air. No significant fluid collection. Vasculature: Patent vessels without evidence of aneurysm, dissection, occlusion or critical stenosis. Lymph nodes: No mesentery adenopathy. No edema. Urinary bladder: No focal wall thickening of the urinary bladder. Reproductive: Multiple nabothian cysts noted. Multiple bilateral ovarian follicles measuring up to 2.2 cm. Bones/joints: No acute osseous abnormality. Soft tissues: Small fat containing umbilical hernia. Soft tissues are unremarkable as visualized. IMPRESSION: Bilateral ovarian follicles measuring up to 2.2 cm on the left. Appendix is not seen but there is no pericecal inflammatory change. No acute findings. Dictated and Authenticated by: Chasity Bustamante MD. Orderin Renetta Real MD
[2025-01-27] MEDS: oxyCODONE 5 mg/Acetaminophen 325 mg TAB 1 TAB PO (23:11)
[2025-01-27] MEDS: Ondansetron O.D.T. 4 MG TABEF, 3 TABS/BTL PO (23:11)
== END 2025-01-27 23:16 | disposition home or self-care (01) ==
PROVIDERS: Emergency Medicine; Emergency Provider Registered Nurse Emergency; PCP Student in an Organized Health Care Education/Training Program
DX: N83.292 Other ovarian cyst, left side; R10.32 Left lower quadrant pain; R11.2 Nausea with vomiting, unspecified; R19.7 Diarrhea, unspecified; N83.291 Other ovarian cyst, right side
CPT/HCPCS: 99284; 99285; 96374; 96375; 36415; 80053; 83690; 74177; 82248; 83735; 84443; 84703; 85025; 85610; 85730; J2405; J3010; J3490

== ENCOUNTER 2025-02-03 09:38 | Outpatient (REF) | payer OTHER, SELFPAY ==
[2025-02-03 15:27] LABS: Anion Gap 7.3 mmol/L (3-11); BUN 11 mg/dL (7-18); CO2 27.7 mmol/L (21.0-32.0); CREATININE 0.8 mg/dL (0.55-1.02); Calcium 9.4 mg/dL (8.5-10.1); Chloride 106 mmol/L (98-107); Estimated GFR 99.09 (mL/min/1.73m2); Glucose 102 mg/dL (74-106); Magnesium 1.7 mg/dL (1.8-2.4); Potassium 4.7 mmol/L (3.5-5.1); Sodium 141 mmol/L (136-145)
== END 2025-02-03 09:39 | disposition home or self-care (01) ==
LOC: NCHCN 09:38
PROVIDERS: PCP Student in an Organized Health Care Education/Training Program; Visit Provider Student in an Organized Health Care Education/Training Program
DX: E87.6 Hypokalemia (principal)
CPT/HCPCS: 80048; 83735

== ENCOUNTER 2025-03-14 01:14 | Outpatient (CLI) | payer OTHER, SELFPAY ==
--- NOTE | 2025-03-14 07:30 | DI.US_ITS ---
Exam(s) US BREAST LT COMPLETE MAMMO DIAGNOSTIC BI EXAM: MAMMO DIAGNOSTIC BI and U/S breast LT complete CLINICAL HISTORY: left sided breast mass,DENSE BREAST TISSUE,R92.30. TECHNIQUE: Craniocaudal and mediolateral oblique Full Field Digital Mammography views with Computer Aided Diagnosis followed by Tomosynthesis and complete left breast ultrasound. A complete left breast ultrasound was performed which includes all 4 quadrants of the left breast, the left retroareolar region and the left axilla. COMPARISON: This is a baseline examination. There are no priors for comparison. FINDINGS: Mammography/Tomosynthesis: Masses/Architectural Distortion: No suspicious masses or areas of architectural distortion are identified. Microcalcifictions: No suspicious pleomorphic-type are seen. Skin Thickening/Nipple Retraction: None. Complete left breast US: Echotexture: Normal appearance of the glandular tissue. Shadowing: No suspicious foci. Cyst: There a few small simple cysts at the 1 o'clock position of the left breast 3 cm from the nipple. Solid lesions: None seen. Ductal dilation: None. IMPRESSION: 1. No evidence of malignancy is noted. 2. Unless there is more urgent need, follow-up screening mammography is recommended, as per [employer] guidelines. 3. The findings were discussed with the patient on the date of the examination. BI-RADS Category 2 - Benign Findings Breast Density - Category C - The breast are heterogeneously dense, which may obscure small masses. Breast density Category C or D implies that the patient has dense breast tissue. Dense breast tissue can make it harder to find cancer on a mammogram. Dense breast tissue is also associated with an increased risk of breast cancer. This information about the result of the mammogram report was provided to the patient to raise their awareness. Use this report when you speak with the patient about their risks for breast cancer, which includes their family history. At that time, you may recommend additional screening tests (Ultrasound or MRI) as these tests may add significant information. A negative radiographic report should not delay biopsy if a dominant or clinically suspicious mass is present. Up to ten percent of cancers are not identified on mammography. A negative report may reinforce clinical impression. Adenosis and dense breasts may obscure an underlying neoplasm. False positive reports average 6 to 10%. Patient will receive a letter notifying them of these results.
== END 2025-03-14 01:34 ==
LOC: DI 01:14
PROVIDERS: PCP Student in an Organized Health Care Education/Training Program; Visit Provider Obstetrics & Gynecology
DX: R92.323 Mammographic fibroglandular density, bilateral breasts (principal); Z12.31 Encounter for screening mammogram for malignant neoplasm of breast
CPT/HCPCS: 76642; 77062; 77066; G0279

== ENCOUNTER 2025-06-08 11:58 | Emergency (ER) | payer OTHER, SELFPAY ==
[2025-06-08] VITALS (8 sets, daily range): BP systolic 139–153; BP diastolic 76–103; PULSE 68–78; RESP 18–26; TEMP 36.6; O2SAT 98–100
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
[2025-06-08] MEDS: Normal Saline 1,000 ML 1000 ML IV (13:11)
[2025-06-08 13:44] LABS: Abs Immature Grans 0.03 10^3/uL (0.0-0.06); HCT 39.0 % (36.0-46.0); HGB 12.8 g/dL (11.2-15.7); Immature Grans % 0.3 %; MCH 27.6 pg (27.0-33.0); MCHC 32.8 % (32.0-36.0); MCV 84 fL (80-95); MPV 10.8 fL (8.0-11.0); Platelet Count 295 10^3/uL (130-400); RBC 4.64 10^6/uL (3.93-5.22); RDW 12.5 % (11.7-14.6); RDW-SD 38.0 fL; WBC 8.59 10^3/uL (4.4-10.8)
[2025-06-08 13:50] LABS: ALT 14 U/L (14-59); AST 12 U/L (15-37); Albumin 3.7 g/dL (3.4-5.0); Alkaline Phosphatase 65 U/L (46-116); Anion Gap 9.3 mmol/L (3-11); BUN 10 mg/dL (7-18); Bilirubin, Total 0.5 mg/dL (0.2-1.0); CO2 26.7 mmol/L (21.0-32.0); Calcium 9.3 mg/dL (8.5-10.1); Chloride 103 mmol/L (98-107); Glucose 82 mg/dL (74-106); Magnesium 1.8 mg/dL (1.8-2.4); Potassium 3.9 mmol/L (3.5-5.1); Sodium 139 mmol/L (136-145); Total Protein 7.5 g/dL (6.4-8.2)
[2025-06-08 14:09] LABS: INR 1.1 (0.9-1.1); Prothrombin Time 10.8 sec (9.1-11.1)
[2025-06-09 19:02] LABS: LH 4.0 mIU/mL (See Note)
[2025-06-17 10:35] LABS: Estradiol, Mass Spectrometry 345 pg/mL
== END 2025-06-08 14:30 | disposition home or self-care (01) ==
PROVIDERS: Emergency Provider Physician Assistant; PCP Student in an Organized Health Care Education/Training Program
DX: N93.9 Abnormal uterine and vaginal bleeding, unspecified (principal)
CPT/HCPCS: 80053; 86850; 86900; 86901; 96360; 99284; 82670; 82679; 83002; 83735; 84144; 85025; 85610; 99283

== ENCOUNTER 2025-07-19 11:53 | Emergency (ER) | payer OTHER, SELFPAY ==
[2025-07-19 11:58] VITALS: BP 140/102; PULSE 98; RESP 18; TEMP 36.7; O2SAT 98
[2025-07-19 12:01] VITALS: BP 140/102; PULSE 98; RESP 18; TEMP 36.7; O2SAT 98
--- NOTE | 2025-07-19 13:15 | DI.US_ITS ---
Exam(s) US PELVIS TRANSVAGINAL EXAM: US PELVIS TRANSVAGINAL CLINICAL HISTORY: vaginal bleeding, IVF 7 weeks, no prior US TECHNIQUE: Ultrasound of the pelvis was performed both transabdominal and transvaginal. COMPARISON: None FINDINGS: UTERUS: Anteverted Measures 10.4 cm length x 5.1 cm AP x 6.9 cm wide. There are no uterine fibroids. There is an intrauterine gestational sac at the level the fundus which includes a yolk sac and a small pole with crown-rump length 7 mm and with heart rate of 121 BPM recorded There is a suggestion of a small subchorionic hemorrhage. CERVIX: There is no fluid in the endocervical canal. Few small nabothian cysts are noted. RIGHT OVARY: Measures 2.3 x 2.0 x 1.9. Contains sub cm follicular cysts. Also a single cyst measuring 1 cm. No solid masses. No free fluid. LEFT OVARY: Not visualized CUL-DE-SAC: No free fluid evident. IMPRESSION: 1. Viable intrauterine gestation which exhibits crown-rump length 7 millimeters corresponding to 6 weeks and 4 days gestational age 2. Subtle suggestion of small subchorionic hemorrhage. 3. No significant right ovarian findings. Left ovary is not able to be identified on the present exam. DATA REPOSITORY:
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
[2025-07-19 13:42] LABS: Abs Immature Grans 0.04 10^3/uL (0.0-0.06); HCT 37.7 % (36.0-46.0); HGB 12.6 g/dL (11.2-15.7); Immature Grans % 0.5 %; MCH 27.1 pg (27.0-33.0); MCHC 33.4 % (32.0-36.0); MCV 81 fL (80-95); MPV 10.2 fL (8.0-11.0); Platelet Count 257 10^3/uL (130-400); RBC 4.65 10^6/uL (3.93-5.22); RDW 12.3 % (11.7-14.6); RDW-SD 36.0 fL; WBC 8.53 10^3/uL (4.4-10.8)
[2025-07-19 13:45] LABS: Glucose Negative (Negative)
[2025-07-19] MEDS: Ondansetron 4 MG/2 ML VIAL IVP (13:55)
[2025-07-19] MEDS: Lactated Ringers 1,000 ML 1000 ML IV (13:56)
[2025-07-19 13:58] LABS: C & S Indicated? No; WBC 0-2 HPF (0-5)
[2025-07-19 14:01] LABS: Lipase 31 U/L (<53); Magnesium 1.8 mg/dL (1.6-2.6)
[2025-07-19 14:02] VITALS: PULSE 74; RESP 21; O2SAT 98
[2025-07-19 14:10] VITALS: PULSE 80; PULSE 81; RESP 26; O2SAT 100
[2025-07-19 14:19] LABS: ALT < 7 U/L (10-49); AST 12 U/L (<34); Albumin 4.1 g/dL (3.2-5.0); Alkaline Phosphatase 65 U/L (46-116); Anion Gap 10 mmol/L (3-11); BUN 9 mg/dL (9-23); Bilirubin, Total 0.3 mg/dL (0.2-1.2); CO2 23.0 mmol/L (20.0-31.0); Calcium 9.4 mg/dL (8.3-10.6); Chloride 107 mmol/L (98-107); Glucose 90 mg/dL (74-106); HCG Quant, Pregnancy 23731 mIU/mL (1.5-4.2); Potassium 3.7 mmol/L (3.5-5.1); Sodium 140 mmol/L (136-145); Total Protein 6.9 g/dL (5.7-8.2)
[2025-07-19 16:05] VITALS: BP 141/94; PULSE 94; TEMP 37.1; O2SAT 99
== END 2025-07-19 16:12 | disposition home or self-care (01) ==
PROVIDERS: Emergency Provider Emergency Medicine; PCP Student in an Organized Health Care Education/Training Program
DX: O20.8 Other hemorrhage in early pregnancy (principal); Z3A.01 Less than 8 weeks gestation of pregnancy
CPT/HCPCS: 80053; 83690; 96361; 96374; 99284; 76830; 76856; 81003; 81015; 83735; 84702; 85025; J2405

== ENCOUNTER 2025-08-09 13:38 | Emergency (ER) | payer OTHER, SELFPAY ==
--- NOTE | 2025-08-09 13:45 | RT.EKG_ITS ---
APPROVED REPORT Exam: Resting ECG Reason for Exam: N/V/D Patient Location: E HR:115 bpm ECG Measurements Heart Rate 115 AXIS ME 155 P 64 QRSd 90 QRS 73 QT 315 T 28 QTc 435 Conclusion Sinus tachycardia...rate> 99
[2025-08-09 13:55] VITALS: BP 131/84; PULSE 112; RESP 20; TEMP 37; O2SAT 97
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
[2025-08-09 15:12] LABS: Abs Immature Grans 0.08 10^3/uL (0.0-0.06); HCT 39.7 % (36.0-46.0); HGB 13.3 g/dL (11.2-15.7); Immature Grans % 0.7 %; MCH 27.6 pg (27.0-33.0); MCHC 33.5 % (32.0-36.0); MCV 82 fL (80-95); MPV 10.1 fL (8.0-11.0); Platelet Count 278 10^3/uL (130-400); RBC 4.82 10^6/uL (3.93-5.22); RDW 12.8 % (11.7-14.6); RDW-SD 38.5 fL; WBC 11.27 10^3/uL (4.4-10.8)
[2025-08-09] MEDS: Lactated Ringers 1,000 ML 1000 ML IV (15:19)
[2025-08-09] MEDS: Ondansetron 4 MG/2 ML VIAL IVP (15:19)
[2025-08-09] MEDS: ACETAMINOPHEN 1,000 MG/100 ML BAG 400 MG IVPB (15:19)
[2025-08-09 15:28] LABS: Lipase 27 U/L (<53)
[2025-08-09 15:29] LABS: ALT 9 U/L (10-49); AST 22 U/L (<34); Albumin 4.3 g/dL (3.2-5.0); Alkaline Phosphatase 66 U/L (46-116); Anion Gap 10.2 mmol/L (3-11); BUN 10 mg/dL (9-23); Bilirubin, Total 0.5 mg/dL (0.2-1.2); CO2 19.8 mmol/L (20.0-31.0); Calcium 9.0 mg/dL (8.3-10.6); Chloride 108 mmol/L (98-107); Glucose 85 mg/dL (74-106); Magnesium 1.8 mg/dL (1.6-2.6); Potassium 3.7 mmol/L (3.5-5.1); Sodium 138 mmol/L (136-145); Total Protein 7.3 g/dL (5.7-8.2)
[2025-08-09 17:00] LABS: COVID-19 PCR Negative (Negative); RSV PCR Negative (Negative)
[2025-08-09 17:04] LABS: Glucose Negative (Negative)
[2025-08-09] MEDS: Ondansetron O.D.T. 4 MG TABEF, 3 TABS/BTL PO (17:48)
[2025-08-09 18:49] VITALS: BP 115/74; PULSE 98; RESP 18; TEMP 36.8; O2SAT 100
== END 2025-08-09 18:17 | disposition home or self-care (01) ==
PROVIDERS: Emergency Provider Emergency Medicine; PCP Student in an Organized Health Care Education/Training Program
DX: R11.2 Nausea with vomiting, unspecified (principal); R19.7 Diarrhea, unspecified; Z3A.09 9 weeks gestation of pregnancy
CPT/HCPCS: 36415; 80053; 83690; 87637; 93005; 96361; 96374; 96375; 99284; 81003; 83735; 85025; 93010; J0131; J2405